=== PATIENT | female | born 1960 | race Caucasian/White ===

== ENCOUNTER → 2017-10-02 14:23 | Outpatient (CLI) | payer OTHER, SELFPAY ==
--- NOTE | 2017-10-02 14:34 | HPBI_ITS ---
MAMMOGRAPHY - BILATERAL SCREENING REASON FOR EXAM: Female, 57 years old. Routine annual screening examination. PERTINENT HISTORY: Mother with breast cancer. TECHNIQUE: Digital bilateral breast sandra (3D mammographic acquisition) in the CC and MLO projections. 2-D mediolateral oblique (MLO) and craniocaudad (CC) views of both breasts were obtained. CAD: Full Field Digital Mammography with Computer Added Detection was performed. COMPARISON: None. Baseline examination. FINDINGS: Breast Composition: The breasts are heterogeneously dense, which may obscure small masses. There are no dominant masses or suspicious calcifications. Bilateral benign appearing axillary lymph nodes. No other significant abnormalities are identified. There has been no significant change since the prior study. HPBI/SCREENING MAMM (CAD), BILAT IMPRESSION: Stable bilateral screening mammogram. Yearly follow-up mammogram recommended. (A) ASSESSMENT CATEGORY: BIRADS Category 2: Benign. A letter regarding these results will be sent to the patient by the facility within 30 days. Approximately 10% of breast cancers are not detected by mammography. A normal mammogram should not delay biopsy of a clinically suspicious abnormality. [id number] Electronically Signed: Getachew Wayne MD at 8:22 EDT Tel [phone], Service support ,
== END ==
DX: Z12.31 Encounter for screening mammogram for malignant neoplasm of breast (principal)
CPT/HCPCS: 77063; 77067

== ENCOUNTER 2017-10-25 23:21 | Inpatient (IN) | payer SELFPAY ==
[2017-10-25 23:22] VITALS: BP 112/74; PULSE 93; RESP 22; TEMP 36.4; O2SAT 100; BMI 30.8
[2017-10-25 23:27] VITALS: BP 112/74; PULSE 92
--- NOTE | 2017-10-25 23:46 | EKG12_ITS ---
Test Reason : CP Blood Pressure : / mmHG Vent. Rate : 088 BPM Atrial Rate : 088 BPM P-R Int : 124 ms QRS Dur : 082 ms QT Int : 398 ms P-R-T Axes : 063 019 038 degrees QTc Int : 481 ms Normal sinus rhythm Prolonged QT Abnormal ECG Confirmed by ROSANA ROSADO, FARNAZ ([id number]), multimedia editor PHYLLIS BEASLEY ([id number]) on 10/31/2017 9:01:45 AM Referred By: DR CLEVELAND Confirmed By:FARNAZ WAYNE MD
--- NOTE | 2017-10-25 23:46 | RAD_ITS ---
STUDY: X-RAY CHEST REASON FOR EXAM: Female, 57 years old. Chest pain and shortness of breath. Chest heaviness and heartburn. Symptoms radiate to her jaw. TECHNIQUE: Single AP portable view of the chest. COMPARISON: Chest x-ray 01/15/2017. FINDINGS: There is minimal fibrosis or atelectasis overlying the left lower lung freitas. There are no demonstrated acute pulmonary infiltrates. There is no demonstrated pleural abnormality. Normal size heart. Normal mediastinum and sumit. Normal visualized pulmonary arteries. Normal visualized aortic arch and descending thoracic aorta. Normal visualized thoracic spine. Normal visualized ribs, clavicles, and shoulders. There is no demonstrated abnormality of the visualized soft tissue structures of the upper abdomen. RAD/Chest 1 View (Portable) IMPRESSION: Minimal chronic changes in the left mid and lower lung freitas. No evidence for acute cardiopulmonary pathology. Electronically Signed: Louis Steel MD at 0:51 EDT , Service support ,
--- NOTE | 2017-10-25 23:53 | ED.DCSUM_ITS ---
- ER Visit Summary Date of Service: 10/25/17 Chief Complaint: Chest pain and shortness of breath History of Present Illness: The patient is a 57 F who presents with sudden onset of chest pain and shortness of breath while sleeping. Patient states that she and her celebrated his birthday this evening with steak and a couple glasses of wine. They went to bed and she woke up with shortness of breath and epigastric chest pain radiating up into the bilateral jaws. She also felt hot and flushed. She has been having 1 day of lower abdominal pain. She is on methotrexate for psoriatic arthritis and also has a hysterectomy with ovaries intact. Status post appendectomy. Patient currently is complaining of chest heaviness and shortness of breath. She denies fever, nausea, vomiting, urinary symptoms. Denies any history of anaphylaxis. Sensation of her mouth or throat swelling. Physical Examination: Vital signs: afebrile, hemodynamically stable, no hypoxia on room air General: well nourished, well developed, in no distress, appears unwell Skin: warm, dry, no pallor, facial flushing with erythematous patches on the neck anterior and posterior, upper chest above the nipple line, upper back, and upper arms, blanchable HEENT: normocephalic and atraumatic; PERRL, EOMI, moist mucous membranes conjunctivae mildly injected Cardiovascular: regular rate and rhythm without murmurs, no peripheral edema, 2 + pulses all distal extremities Respiratory: No increased work of breathing, lungs are clear to auscultation bilaterally, no rales, rhonchi or wheezing, patient taking occasional deep gasping breaths Abdominal: Abdomen is soft, tender in the right lower quadrant with normoactive bowel sounds, no guarding or rebound, no pulsatile masses MSK: Moves all extremities, no deformities, normal strength Neuro: Awake and alert, oriented ?4. No facial droop, sensation and motor function intact and symmetric Test Results: Abnormal Lab Results 10/25/17 10/25/17 10/25/17 23:28 23:28 23:28 WBC 12.0 H RBC 4.12 L Hgb 13.4 Hct 39.4 MCV 95.6 MCH 32.5 H MCHC 34.0 RDW 15.0 H RDW Differential 50.7 H Plt Count 369 MPV 9.8 Immature Gran % (Auto) 0.300 Neut % (Auto) 66.3 Lymph % (Auto) 21.6 Bo[place] % (Auto) 9.5 Eos % (Auto) 1.8 Baso % (Auto) 0.5 Absolute Neuts (auto) 8.0 H Absolute Lymphs (auto) 2.58 Total Counted Not Reportable PT 12.2 INR 0.9 APTT 32.2 Sodium 142 Potassium 3.0 L Chloride 105 Carbon Dioxide 23.0 Anion Gap 14 BUN 22 H Creatinine 1.05 H Estim Creat Clear Calc 50.08 Est GFR (MDRD) Af Amer 70 Est GFR (MDRD) Non-Af 58 L BUN/Creatinine Ratio 21.0 H Glucose 63 L Calcium 8.7 Troponin I < 0.02 TSH 2.32 Ethyl Alcohol 10/25/17 23:28 WBC RBC Hgb Hct MCV MCH MCHC RDW RDW Differential Plt Count MPV Immature Gran % (Auto) Neut % (Auto) Lymph % (Auto) [place] % (Auto) Eos % (Auto) Baso % (Auto) Absolute Neuts (auto) Absolute Lymphs (auto) Total Counted PT INR APTT Sodium Potassium Chloride Carbon Dioxide Anion Gap BUN Creatinine Estim Creat Clear Calc Est GFR (MDRD) Af Amer Est GFR (MDRD) Non-Af BUN/Creatinine Ratio Glucose Calcium Troponin I TSH Ethyl Alcohol 261.0 Emergency Department Course and Treatment: Patient is presenting with a constellation of symptoms with no obvious unifying diagnosis, including the chest pain and shortness of breath, the facial flushing, pain radiating to jaw, and then further history provided by security that the patient had a syncopal episode while coming into the waiting room. No trauma from this. Because of the patient's lower abdominal pain that started yesterday now with these other complaints, there is concern for possible aortic dissection. Also with the shortness of breath, chest pain and a syncopal episode, PE is on the differential. Anaphylaxis also on the differential given shortness of breath, chest pain and the rash, however seems less likely as there is no obvious allergic exposure. broad workup was performed, with an EKG showing no ischemic changes. Chest x-ray showed no pneumonia, pneumothorax, or other acute process. Labs showed leukocytosis of 12, mild hypokalemia of 3, and a glucose of 63. Patient was given half an amp of D50 for this. She also received Zofran and morphine for symptomatic control. 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 Troponin negative. TSH 2.32. Alcohol was checked and was consistent with a intoxication at 261. Patient had resolution of the body flushing after receiving some fluids. CTA of the chest abdomen and pelvis was performed, showing no dissection, no PE, no free air in the abdomen, but did show acute diverticulitis. Because patient is immunocompromised, this does make her a candidate for inpatient treatment. She is also having intractable abdominal pain, including the epigastric pain, which still is concerning for possible atypical chest pain versus gastritis from the alcohol use in a patient with peptic ulcer disease. Because of patient's complicated presentation and the acute diverticulitis with immunocompromise, she is a candidate for inpatient treatment with IV antibiotics. She was admitted for further treatment of acute diverticulitis and further workup of her chest pain, shortness of breath, and epigastric pain. Patient received 2 doses of IV morphine and a GI cocktail without resolution of her epigastric and chest pain. Treatment Plan: [] Disposition: [] Impression: acute diverticulitis, acute chest pain/epigastric pain, concern for atypical ACS This note was generated with [employer] dictation software. It may contain incorrect words, spelling, and punctuation that were not noted in review of the chart prior to signing ED Disposition - Plan for ED Patient: Chief Complaint: Chest Pain
[2017-10-25] MEDS: Morphine 4 MG/ML Syringe IV (23:56)
[2017-10-25] MEDS: 0.9% Normal Saline 1,000 ML 1000 ML IV (23:56)
[2017-10-25] MEDS: Ondansetron 4 MG/2 ML Vial IV (23:56)
[2017-10-26] VITALS (17 sets, daily range): BP systolic 120–186; BP diastolic 77–111; PULSE 69–91; RESP 12–18; TEMP 36.6–36.9; O2SAT 93–99; BMI 30.2
[2017-10-26 00:07] LABS: Absolute Lymphocyte Count 2.58 X10^3/ul (0.83-4.51); Basophil# 0.06 X10^3/uL; Basophil% 0.5 % (0-1); Eosinophil# 0.21 X10^3/uL; Eosinophils% 1.8 % (0-5); Hematocrit 39.4 % (37-47); Hemoglobin 13.4 g/dl (12.0-15.0); Lymphocyte # 2.58 X10^3/ul (4.0); Lymphocyte % 21.6 % (19-41); Mean Corpuscular Hgb 32.5 pg (27.0-32.0); Mean Corpuscular Volume 95.6 fL (81-99); Mean Platelet Vol. 9.8 fl (6.2-12.0); Monocyte# 1.14 X10^3/uL; Monocyte% 9.5 % (0-10); Neutrophil # 7.95 X10^3/uL (2.7-7.7); Neutrophil % 66.3 % (47-70); Platelet Count 369 K/mm3 (150-450); RBC Distribution Width SD 50.7 fl (35.1-43.9); Red Blood Count 4.12 M/mm3 (4.2-5.4)
[2017-10-26 00:09] LABS: POSITIVE COUNT NO; POSITIVE DIFFERENTIAL NO; POSITIVE MORPHOLOGY NO
[2017-10-26 00:13] LABS: Anion Gap 14 (5-15); BUN 22 mg/dL (7-18); Calcium,Total 8.7 mg/dL (8.5-10.1); Chloride 105 mmol/L (98-107); Creatinine, Serum 1.05 mg/dL (0.55-1.02); EST Glomerular Filtration Rate 58 mL/min (>60); Est Glom Filt Rate - Afr Amer 70 mL/min (>60); Estimated Creatinine Clearance 50.08 ml/min; Glucose 63 mg/dL (74-106); Sodium Level 142 mmol/L (136-145); Thyroid Stim Hormone (TSH) 2.32 uIU/mL (0.358-3.74)
[2017-10-26 00:31] LABS: International Normalized Ratio 0.9; Prothrombin Time (Protime)PT. 12.2 SECONDS (11.7-14.9)
[2017-10-26 00:32] LABS: Partial Thromboplast Time 32.2 Seconds (24.1-36.2)
[2017-10-26] MEDS: Dextrose 50%-Water 25 GM/50 ML DISP.SYRIN IV (01:05)
[2017-10-26] MEDS: Morphine 4 MG/ML Syringe IV (01:45)
--- NOTE | 2017-10-26 02:23 | PCM.HP.STD ---
Problem List (1) Hypokalemia Status: Acute (2) Acute diverticulitis Status: Acute (3) Gastritis Status: Acute (4) Alcohol intoxication Status: Acute (5) Psoriatic arthritis Status: Chronic (6) Essential hypertension Status: Chronic (7) Peptic ulcer disease Status: Chronic History of Present Illness Date of Admission: 10/26/17 Chief Complaint: Chest pain, shortness of breath, abdominal pain. The patient is a 57 year old F with past medical history as mentioned above presented to the emergency room because of chest pain, shortness of breath and abdominal pain. Earlier tonight, she woke up from sleep because she was short of breath, having chest pain described as chest tightness in the lower part of her chest, constant, 7 out of 10 in severity, goes down to the epigastric region and then became more diffuse to the whole abdomen, associated with nausea and without aggravating or relieving factors. She mentioned that her pain now is down to the epigastric region and lower abdomen only. Also, she mentioned that she had this lower abdominal pain of one day duration which is dull aching pain, more on the left side. She has no more upper chest pain or discomfort at this time. And her breathing improved. She denied palpitation, dizziness, lightheadedness, syncope, presyncope or diaphoresis. In the emergency room, her vital signs were stable. Her routine blood work is remarkable for mild leukocytosis, potassium of 3, BUN of 22 and creatinine of 1.05. Her blood glucose is 63. Troponin was negative. EKG revealed normal sinus rhythm without evidence of acute ischemic changes. TSH was normal. Blood alcohol level was highly elevated at 261. Chest x-ray showed no acute infiltrate, consolation or effusion. CTA abdomen and pelvis revealed acute diverticulitis of sigmoid colon and no evidence of hemodynamically significant stenosis, no aneurysm or dissection. CTA chest showed no evidence of PE or dissection. She is being admitted for acute sigmoid diverticulitis, epigastric pain likely due to gastritis because she had a history of peptic ulcer disease and she has been drinking, hypokalemia and atypical chest pain with very low suspicion of CAD. Past Medical History Past Medical History (Chronic Problems): Chronic Problems Psoriatic arthritis (Chronic) Essential hypertension (Chronic) Peptic ulcer disease (Chronic) Allergies prednisone Allergy (Verified 10/25/17 23:27) Hives Home Medications: Ambulatory Orders Medication Instructions Recorded Ramipril [Altace] 10 mg PO QHS 03/20/16 Triamterene 37.5MG/Hctz 25MG 1 cap PO QHS 03/20/16 [Dyazide (G)] Venlafaxine HCl [Effexor] 37.5 mg PO QHS 03/20/16 Pantoprazole Sodium [Protonix] 40 mg PO DAILY #60 tablet 03/23/16 Folic Acid 1 mg PO DAILY@0800 10/25/17 Methotrexate 12.5 mg PO Q7D 10/25/17 Surgical History: noncontributory Psychiatric History: 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 Denies: Heaviness, Light Headedness, Orthopnea, Paroxysmal Noc. Dyspnea, Syncope Respiratory: Reports: Shortness of Breath. Denies: Cough, Sputum production, Wheezing Gastrointestinal: Reports: Abdominal Pain, Diarrhea, Nausea. Denies: Constipation, Hematochezia, Melena, Vomiting Genitourinary: Denies: Dysuria, Frequency, Hematuria Musculoskeletal: Denies: Arm Pain, Back Pain, Foot Pain Skin: Denies: Dryness, Rash Neurological: Denies: Balance problems, Double vision, Change in Speech, Slurred speech, Confusion, Headaches, Incoordination Psychiatric: Reports: Depression. Denies: Anxiety Endocrine: Denies: Change in Body Habitus, Polydipsia VTE Information - Inpt Only VTE Present on Admission: No VTE Mechan Device Prophylaxis: None VTE Pharm Prophylaxis ordered?: No - Physical Exam General: Alert, Oriented x3, Cooperative, No apparent distress HEENT: Atraumatic, PERRLA, EOMI Oral: Moist Mucosa, No Gingival or Mucosal Lesions/ Ulcerations Neck: Supple, No JVD, Negative Carotid Bruits, Trachea Midline, Thyroid Normal Size and Texture Lungs: Clear to auscultation, Normal air movement, No rhonchi, No wheeze, No rales Cardiovascular: Regular rate, Regular Rhythm, Normal S1, Normal S2, No murmurs Abdomen: Bowel Sounds Present, Soft, Non-Distended, No Hepato-splenomegaly, Obese, Tender - Minimal epigastric tenderness, no guarding or rigidity. Extremities: No clubbing, No cyanosis, No edema Skin: No rashes, No breakdown Lymphatic: No Cervical, Supraclavicular, or Inguinal Adenopathy Neurological: Cranial nerves II-XII grossly intact, Motor Exam 5/5 strength throughout Psych/Mental Status: Normal Affect, Appropriate, Alert and oriented to time, place, person, mood and affect Vital Signs Temp Pulse Resp BP Pulse Ox 97.6 F L 89 12 136/90 H 97 10/25/17 23:22 10/26/17 01:10 10/26/17 01:10 10/26/17 01:10 10/26/17 01:10 Oxygen Delivery Method Room Air Weight: 174 lb 2.643 oz Body Mass Index (BMI) 30.8 Laboratory Tests Past 24 Hrs 10/25/17 10/25/17 10/25/17 23:28 23:28 23:28 WBC 12.0 H RBC 4.12 L Hgb 13.4 Hct 39.4 MCV 95.6 MCH 32.5 H MCHC 34.0 RDW 15.0 H RDW Differential 50.7 H Plt Count 369 MPV 9.8 Immature Gran % (Auto) 0.300 Neut % (Auto) 66.3 Lymph % (Auto) 21.6 [place] % (Auto) 9.5 Eos % (Auto) 1.8 Baso % (Auto) 0.5 Absolute Neuts (auto) 8.0 H Absolute Lymphs (auto) 2.58 Total Counted Not Reportable PT 12.2 INR 0.9 APTT 32.2 Sodium 142 Potassium 3.0 L Chloride 105 Carbon Dioxide 23.0 Anion Gap 14 BUN 22 H Creatinine 1.05 H Estim Creat Clear Calc 50.08 Est GFR (MDRD) Af Amer 70 Est GFR (MDRD) Non-Af 58 L BUN/Creatinine Ratio 21.0 H Glucose 63 L Calcium 8.7 Total Bilirubin Direct Bilirubin AST ALT Alkaline Phosphatase Troponin I < 0.02 Total Protein Albumin Lipase TSH 2.32 Ethyl Alcohol 10/25/17 10/25/17 23:28 23:28 WBC RBC Hgb Hct MCV MCH MCHC RDW RDW Differential Plt Count MPV Immature Gran % (Auto) Neut % (Auto) Lymph % (Auto) [place] % (Auto) Eos % (Auto) Baso % (Auto) Absolute Neuts (auto) Absolute Lymphs (auto) Total Counted PT INR APTT Sodium Potassium Chloride Carbon Dioxide Anion Gap BUN Creatinine Estim Creat Clear Calc Est GFR (MDRD) Af Amer Est GFR (MDRD) Non-Af BUN/Creatinine Ratio Glucose Calcium Total Bilirubin Pending Direct Bilirubin Pending AST Pending ALT Pending Alkaline Phosphatase Pending Troponin I Total Protein Pending Albumin Pending Lipase Pending TSH Ethyl Alcohol 261.0 Clinical Impression(s) from Imaging Studies Chest X-Ray 10/25/17 23:46 IMPRESSION: Minimal chronic changes in the left mid and lower lung freitas. No evidence for acute cardiopulmonary pathology. Electronically Signed: Louis Steel MD at 0:51 EDT , Service support , Abdomen/Pelvis CTA 10/26/17 23:47 IMPRESSION: Acute diverticulitis of the sigmoid colon. No associated abscess or free intraperitoneal air. Previous hysterectomy. No evidence for hemodynamically significant arterial stenosis. No evidence for aneurysm or dissection. Electronically Signed: Louis Steel MD at 1:46 EDT , Service support , Chest CTA 10/26/17 23:47 IMPRESSION: No demonstrated pulmonary embolism or arterial dissection. Mild atherosclerosis. No evidence for acute cardiopulmonary pathology. Electronically Signed: Louis Steel MD at 1:50 EDT , Service support , Assessment/Plan This is a 57 years old female patient presented to the emergency room because of upper chest pain/pressure with shortness of breath, pain when down to the epigastric region and finally to the lower abdomen and she was found to have acute sigmoid diverticulitis, hypokalemia, probable gastritis secondary to alcohol drinking as well as alcohol intoxication. #1 acute sigmoid diverticulitis: CTA abdomen and pelvis reviewed, revealed findings consistent with acute sigmoid diverticulitis. Vital signs are stable, afebrile. She has mild leukocytosis. Plan: Admit to [facility] floor, telemetry monitoring, keep on clear liquids, IV fluids, IV morphine as needed, IV antiemetics, start IV Flagyl and ciprofloxacin. #2 probable gastritis: Probably due to heavy drinking in context of history of peptic ulcer disease. Blood alcohol level is 261. Plan: IV fluids, IV antiemetics, Protonix IV twice daily. #3 alcohol intoxication: Blood alcohol level is 261. Patient is awake and alert, vital signs are stable. Plan: CIWA protocol, IV fluids with D5 normal saline with potassium chloride, IV folic acid, IV thiamine. #4 hypoglycemia: Blood sugar was 63 mg/dL. This is likely because of alcohol intoxication. Plan for IV fluids with D5 percent, Accu-Cheks as needed. #5 hypokalemia: Likely because of Dyazide. Plan to increase potassium with IV potassium chloride, check serum magnesium, repeat BMP tomorrow morning. #6 atypical chest pain: The patient is started in the upper chest with shortness of breath and then went down to the epigastric region and to the abdomen. EKG showed no acute ischemic changes. Troponin was negative. At this time, suspicion for CAD is low. Plan: Cardiac monitoring, serial cardiac enzymes, repeat EKG tomorrow morning. At this time, no indication for further cardiac workup unless cardiac enzymes start to go up or she developed new EKG changes. #7 hypertension: Blood pressure stable, continue Altace and Dyazide. #8 psoriatic arthritis: She is on methotrexate q. weekly. #9 history of peptic ulcer disease: IV Protonix twice daily, IV antiemetics as above. #10 DVT prophylaxis: Low risk patient, no prophylaxis indicated. This note was generated with [employer] dictation software. It may contain incorrect words, spelling, and punctuation that were not noted in checking the note before signing. Code Visit Inpatient E&M: 22441 Init Hosp L3
[2017-10-26 02:32] LABS: AST(SGOT) 20 U/L (15-37); Alanine Aminotransfer ALT/SGPT 31 U/L (13-56); Albumin, Serum 4.2 g/dL (3.2-5.0); Alkaline Phosphatase 95 U/L (45-117); Bilirubin, Direct 0.08 mg/dL (0.00-0.30); Globulin 3.9 g/dL (2.2-4.2); Lipase 585 U/L (73-393); Protein, Total 8.1 g/dL (6.4-8.2)
--- NOTE | 2017-10-26 02:32 | HP.PCM_ITS ---
Problem List (1) Hypokalemia Status: Acute (2) Acute diverticulitis Status: Acute (3) Gastritis Status: Acute (4) Alcohol intoxication Status: Acute (5) Psoriatic arthritis Status: Chronic (6) Essential hypertension Status: Chronic (7) Peptic ulcer disease Status: Chronic History of Present Illness Date of Admission: 10/26/17 Chief Complaint: Chest pain, shortness of breath, abdominal pain. The patient is a 57 year old F with past medical history as mentioned above presented to the emergency room because of chest pain, shortness of breath and abdominal pain. Earlier tonight, she woke up from sleep because she was short of breath, having chest pain described as chest tightness in the lower part of her chest, constant, 7 out of 10 in severity, goes down to the epigastric region and then became more diffuse to the whole abdomen, associated with nausea and without aggravating or relieving factors. She mentioned that her pain now is down to the epigastric region and lower abdomen only. Also, she mentioned that she had this lower abdominal pain of one day duration which is dull aching pain, more on the left side. She has no more upper chest pain or discomfort at this time. And her breathing improved. She denied palpitation, dizziness, lightheadedness, syncope, presyncope or diaphoresis. In the emergency room, her vital signs were stable. Her routine blood work is remarkable for mild leukocytosis, potassium of 3, BUN of 22 and creatinine of 1.05. Her blood glucose is 63. Troponin was negative. EKG revealed normal sinus rhythm without evidence of acute ischemic changes. TSH was normal. Blood alcohol level was highly elevated at 261. Chest x-ray showed no acute infiltrate, consolation or effusion. CTA abdomen and pelvis revealed acute diverticulitis of sigmoid colon and no evidence of hemodynamically significant stenosis, no aneurysm or dissection. CTA chest showed no evidence of PE or dissection. She is being admitted for acute sigmoid diverticulitis, epigastric pain likely due to gastritis because she had a history of peptic ulcer disease and she has been drinking, hypokalemia and atypical chest pain with very low suspicion of CAD. Past Medical History Past Medical History (Chronic Problems): Chronic Problems Psoriatic arthritis (Chronic) Essential hypertension (Chronic) Peptic ulcer disease (Chronic) Allergies prednisone Allergy (Verified 10/25/17 23:27) Hives Home Medications: Ambulatory Orders Medication Instructions Recorded Ramipril [Altace] 10 mg PO QHS 03/20/16 Triamterene 37.5MG/Hctz 25MG 1 cap PO QHS 03/20/16 [Dyazide (G)] Venlafaxine HCl [Effexor] 37.5 mg PO QHS 03/20/16 Pantoprazole Sodium [Protonix] 40 mg PO DAILY #60 tablet 03/23/16 Folic Acid 1 mg PO DAILY@0800 10/25/17 Methotrexate 12.5 mg PO Q7D 10/25/17 Surgical History: noncontributory Psychiatric History: No pertinent psych hx 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 Denies: Heaviness, Light Headedness, Orthopnea, Paroxysmal Noc. Dyspnea, Syncope Respiratory: Reports: Shortness of Breath. Denies: Cough, Sputum production, Wheezing Gastrointestinal: Reports: Abdominal Pain, Diarrhea, Nausea. Denies: Constipation, Hematochezia, Melena, Vomiting Genitourinary: Denies: Dysuria, Frequency, Hematuria Musculoskeletal: Denies: Arm Pain, Back Pain, Foot Pain Skin: Denies: Dryness, Rash Neurological: Denies: Balance problems, Double vision, Change in Speech, Slurred speech, Confusion, Headaches, Incoordination Psychiatric: Reports: Depression. Denies: Anxiety Endocrine: Denies: Change in Body Habitus, Polydipsia VTE Information - Inpt Only VTE Present on Admission: No VTE Mechan Device Prophylaxis: None VTE Pharm Prophylaxis ordered?: No - Physical Exam General: Alert, Oriented x3, Cooperative, No apparent distress HEENT: Atraumatic, PERRLA, EOMI Oral: Moist Mucosa, No Gingival or Mucosal Lesions/ Ulcerations Neck: Supple, No JVD, Negative Carotid Bruits, Trachea Midline, Thyroid Normal Size and Texture Lungs: Clear to auscultation, Normal air movement, No rhonchi, No wheeze, No rales Cardiovascular: Regular rate, Regular Rhythm, Normal S1, Normal S2, No murmurs Abdomen: Bowel Sounds Present, Soft, Non-Distended, No Hepato-splenomegaly, Obese, Tender - Minimal epigastric tenderness, no guarding or rigidity. Extremities: No clubbing, No cyanosis, No edema Skin: No rashes, No breakdown Lymphatic: No Cervical, Supraclavicular, or Inguinal Adenopathy Neurological: Cranial nerves II-XII grossly intact, Motor Exam 5/5 strength throughout Psych/Mental Status: Normal Affect, Appropriate, Alert and oriented to time, place, person, mood and affect Vital Signs Temp Pulse Resp BP Pulse Ox 97.6 F L 89 12 136/90 H 97 10/25/17 23:22 10/26/17 01:10 10/26/17 01:10 10/26/17 01:10 10/26/17 01:10 Oxygen Delivery Method Room Air Weight: 174 lb 2.643 oz Body Mass Index (BMI) 30.8 Laboratory Tests Past 24 Hrs 10/25/17 10/25/17 10/25/17 23:28 23:28 23:28 WBC 12.0 H RBC 4.12 L Hgb 13.4 Hct 39.4 MCV 95.6 MCH 32.5 H MCHC 34.0 RDW 15.0 H RDW Differential 50.7 H Plt Count 369 MPV 9.8 Immature Gran % (Auto) 0.300 Neut % (Auto) 66.3 Lymph % (Auto) 21.6 [place] % (Auto) 9.5 Eos % (Auto) 1.8 Baso % (Auto) 0.5 Absolute Neuts (auto) 8.0 H Absolute Lymphs (auto) 2.58 Total Counted Not Reportable PT 12.2 INR 0.9 APTT 32.2 Sodium 142 Potassium 3.0 L Chloride 105 Carbon Dioxide 23.0 Anion Gap 14 BUN 22 H Creatinine 1.05 H Estim Creat Clear Calc 50.08 Est GFR (MDRD) Af Amer 70 Est GFR (MDRD) Non-Af 58 L BUN/Creatinine Ratio 21.0 H Glucose 63 L Calcium 8.7 Total Bilirubin Direct Bilirubin AST ALT Alkaline Phosphatase Troponin I < 0.02 Total Protein Albumin Lipase TSH 2.32 Ethyl Alcohol 10/25/17 10/25/17 23:28 23:28 WBC RBC Hgb Hct MCV MCH MCHC RDW RDW Differential Plt Count MPV Immature Gran % (Auto) Neut % (Auto) Lymph % (Auto) [place] % (Auto) Eos % (Auto) Baso % (Auto) Absolute Neuts (auto) Absolute Lymphs (auto) Total Counted PT INR APTT Sodium Potassium Chloride Carbon Dioxide Anion Gap BUN Creatinine Estim Creat Clear Calc Est GFR (MDRD) Af Amer Est GFR (MDRD) Non-Af BUN/Creatinine Ratio Glucose Calcium Total Bilirubin Pending Direct Bilirubin Pending AST Pending ALT Pending Alkaline Phosphatase Pending Troponin I Total Protein Pending Albumin Pending Lipase Pending TSH Ethyl Alcohol 261.0 Clinical Impression(s) from Imaging Studies Chest X-Ray 10/25/17 23:46 IMPRESSION: Minimal chronic changes in the left mid and lower lung freitas. No evidence for acute cardiopulmonary pathology. Electronically Signed: Louis Steel MD at 0:51 EDT , Service support , Abdomen/Pelvis CTA 10/26/17 23:47 IMPRESSION: Acute diverticulitis of the sigmoid colon. No associated abscess or free intraperitoneal air. Previous hysterectomy. No evidence for hemodynamically significant arterial stenosis. No evidence for aneurysm or dissection. Electronically Signed: Louis Steel MD at 1:46 EDT , Service support , Chest CTA 10/26/17 23:47 IMPRESSION: No demonstrated pulmonary embolism or arterial dissection. Mild atherosclerosis. No evidence for acute cardiopulmonary pathology. Electronically Signed: Louis Steel MD at 1:50 EDT , Service support , Assessment/Plan This is a 57 years old female patient presented to the emergency room because of upper chest pain/pressure with shortness of breath, pain when down to the epigastric region and finally to the lower abdomen and she was found to have acute sigmoid diverticulitis, hypokalemia, probable gastritis secondary to alcohol drinking as well as alcohol intoxication. #1 acute sigmoid diverticulitis: CTA abdomen and pelvis reviewed, revealed findings consistent with acute sigmoid diverticulitis. Vital signs are stable, afebrile. She has mild leukocytosis. Plan: Admit to [facility] floor, telemetry monitoring, keep on clear liquids, IV fluids, IV morphine as needed, IV antiemetics, start IV Flagyl and ciprofloxacin. #2 probable gastritis: Probably due to heavy drinking in context of history of peptic ulcer disease. Blood alcohol level is 261. Plan: IV fluids, IV antiemetics, Protonix IV twice daily. #3 alcohol intoxication: Blood alcohol level is 261. Patient is awake and alert , vital signs are stable. Plan: CIWA protocol, IV fluids with D5 normal saline with potassium chloride, IV folic acid, IV thiamine. #4 hypoglycemia: Blood sugar was 63 mg/dL. This is likely because of alcohol intoxication. Plan for IV fluids with D5 percent, Accu-Cheks as needed. #5 hypokalemia: Likely because of Dyazide. Plan to increase potassium with IV potassium chloride, check serum magnesium, repeat BMP tomorrow morning. #6 atypical chest pain: The patient is started in the upper chest with shortness of breath and then went down to the epigastric region and to the abdomen. EKG showed no acute ischemic changes. Troponin was negative. At this time, suspicion for CAD is low. Plan: Cardiac monitoring, serial cardiac enzymes, repeat EKG tomorrow morning. At this time, no indication for further cardiac workup unless cardiac enzymes start to go up or she developed new EKG changes. #7 hypertension: Blood pressure stable, continue Altace and Dyazide. #8 psoriatic arthritis: She is on methotrexate q. weekly. #9 history of peptic ulcer disease: IV Protonix twice daily, IV antiemetics as above. #10 DVT prophylaxis: Low risk patient, no prophylaxis indicated. This note was generated with [employer]oop[employer] dictation software. It may contain incorrect words, spelling, and punctuation that were not noted in checking the note before signing. Code Visit Inpatient E&M: 29599 Init Hosp L3
[2017-10-26] MEDS: Morphine 2 MG/ML Syringe IV ×5 (03:58→21:56)
[2017-10-26 04:19] LABS: Absolute Lymphocyte Count 1.89 X10^3/ul (0.83-4.51); Absolute Neutrophil Count 4.2 X10^3/uL (2.0-7.7); Basophil# 0.03 X10^3/uL; Basophil% 0.4 % (0-1); Eosinophil# 0.12 X10^3/uL; Eosinophils% 1.8 % (0-5); Hematocrit 35.2 % (37-47); Hemoglobin 11.7 g/dl (12.0-15.0); Lymphocyte # 1.89 X10^3/ul (4.0); Lymphocyte % 27.7 % (19-41); Mean Corp Hgb Conc 33.2 g/gl (32-36); Mean Corpuscular Hgb 32.1 pg (27.0-32.0); Mean Corpuscular Volume 96.4 fL (81-99); Mean Platelet Vol. 9.6 fl (6.2-12.0); Monocyte# 0.57 X10^3/uL; Monocyte% 8.3 % (0-10); Neutrophil # 4.21 X10^3/uL (2.7-7.7); Neutrophil % 61.7 % (47-70); Platelet Count 289 K/mm3 (150-450); RBC Distribution Width CV 15.4 % (11.6-14.6); RBC Distribution Width SD 51.4 fl (35.1-43.9); Red Blood Count 3.65 M/mm3 (4.2-5.4); White Blood Count 6.8 K/mm3 (4.4-11.0)
[2017-10-26 04:21] LABS: POSITIVE COUNT NO; POSITIVE DIFFERENTIAL NO; POSITIVE MORPHOLOGY NO
[2017-10-26 04:26] LABS: Bedside Glucose 108 mg/dL (70-110)
[2017-10-26 04:42] LABS: Anion Gap 9 (5-15); BUN 17 mg/dL (7-18); BUN/Creat Ratio 21.9 RATIO (10-20); Calcium,Total 7.9 mg/dL (8.5-10.1); Chloride 107 mmol/L (98-107); Creatinine, Serum 0.78 mg/dL (0.55-1.02); EST Glomerular Filtration Rate 82 mL/min (>60); Est Glom Filt Rate - Afr Amer 99 mL/min (>60); Estimated Creatinine Clearance 67.41 ml/min; Glucose 106 mg/dL (74-106); Lipase 488 U/L (73-393); Potassium 3.5 mmol/L (3.5-5.1); Sodium Level 141 mmol/L (136-145)
--- NOTE | 2017-10-26 05:55 | EKG12_ITS ---
Test Reason : AM EKG Blood Pressure : / mmHG Vent. Rate : 074 BPM Atrial Rate : 074 BPM P-R Int : 120 ms QRS Dur : 078 ms QT Int : 422 ms P-R-T Axes : 045 016 043 degrees QTc Int : 468 ms Normal sinus rhythm Nonspecific T wave abnormality Abnormal ECG When compared with ECG of 15-JAN-2017 00:44, Nonspecific T wave abnormality, worse in Anterolateral leads Confirmed by ROSANA ROSADO, FARNAZ ([id number]), scientific editor PHYLLIS BEASLEY ([id number]) on 11/03/2017 12:53:27 PM Referred By: ZACK Confirmed By:FARNAZ WAYNE MD
[2017-10-26] MEDS: 0.9% NaCl Peripheral Flush Adult/Peds IV ×3 (08:50→17:33)
--- NOTE | 2017-10-26 11:13 | CASEMGMT ---
Social Work Assessment SW received a referral for pt due to pt being admitted into the hospital with alcohol intoxification. SW introduced self and role at [facility]. Pt states that she lives in a 2 story home with her . Pt states that she also has two kids. Pt states that she has been 34 years with her . Pt states that she feels supported at home. Pt states that she was previously independent with ADLs before coming into the hospital. 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 Pt states that her plan is to return home at discharge. Pt is self pay. SW provided resources regarding [facility] and [facility] as pt will have to do follow up appointments. Pt denied additional needs at this time. Substance Abuse Hx: Pt stats that she smokes ecigarettes and that she drinks wine now and again. SW completed Alcohol Screening Questionnaire (AUDIT) with patient Pt scored a 5 which is considered Risky. SW asked pt if she has ever considered receiving treatment and pt states no. Pt states that she doesn't feel like she has a problem with alcohol and states that she only drinks wine occasionally. Pt states that she is able to function normally and states that alcohol doesn't affect her everyday life. Pt states that she is able to go to work and able to stop when she wants to. Pt denied becoming angry or mean when drinking or excessively drinking. Pt denied drinking to the point where she loses control or becomes drunk. SW provided support to pt. Pt denied needing treatment resources. Mental Health Hx: Pt denied Plan: Return Home at Discharge Jalyn Jackson EDUCATION REPORTER, WORLD DESIGNER
--- NOTE | 2017-10-26 11:28 | CASEMGMT ---
CHART REVIEW: CHERRY Strata: 2 Adm dx: Acute Sigmoid Diverticulitis; ETOH Intoxication Insurance: Self Pay Status: IP [place]: Per physician report, the patient is 57 year old F with PMHX: psoriatic arthritis, HTN, PUD, presented to [facility] ED with c/o chest pain, SOB and abd pain. CT Abd/Pelvis revealed acute diverticulitis of sigmoid colon. Patient with elevated lipase suspected due to alcholic pancreatitis. Plan: IVF, CLD, IV pain and antiemetics, NPO, repeat lipase in the morning. Transition Planning/Care Coordination: SW referral for self-pay and ETOH intoxication. Patient does not have a PCP and will be given resources by SW. Patient is independent, works outside the home, drives, and is . Patient will need to follow-up and establish with PCP. SW will provide information re: substance abuse. Disposition Plan: Home with spouse TGAGE Snow, RN-BC, CCM
[2017-10-26] MEDS: Ciprofloxacin 400 MG/200 ML BAG 200 MG IV ×2 (11:38→23:54)
--- NOTE | 2017-10-26 11:44 | CASEMGMT ---
Social Work Note Pt states that she has been going to the [facility] since last year and her plan is to continue to go there at discharge. Pt denied additional needs at this time. Plan: Return home with follow up appointments at [facility] Jalyn Jackson BACTERIOLOGY PROFESSOR, DEEP FAT FRY COOK
--- NOTE | 2017-10-26 16:49 | PN_ITS ---
Subjective: Pt reports that both her midepigastric pain radiating to the back and LLQ pain have improved significantly today. So far no nausea or vomiting, no bowel activity today. Has not seen any blood in her stool at all. She last had a colonoscopy which did reveal diverticula about 5 years ago at the [facility]. She does admit to drinking yesterday prior to presentation. She tolerated clears and broth this AM and wants to try full liquids tonight. - Physical Exam General: Alert, Oriented x3, Cooperative HEENT: Atraumatic, PERRLA, EOMI, Normocephalic Neck: Supple, No JVD, Negative Carotid Bruits Lungs: Clear to auscultation, Normal air movement Cardiovascular: Regular rate, No murmurs Abdomen: Bowel Sounds Present, Soft, Tender - LLQ Extremities: No edema, Capillary Refill Less than 3 Seconds Skin: No rashes, No breakdown Musculoskeletal: No Tenderness to Palpation of Joints or Extremities Neurological: Cranial nerves II-XII grossly intact Psych/Mental Status: Normal Affect, Appropriate, Alert and oriented to time, place, person, mood and affect Vital Signs Temp Pulse Resp BP Pulse Ox 98.1 F 69 16 167/110 H 99 10/26/17 15:35 10/26/17 15:35 10/26/17 15:35 10/26/17 15:35 10/26/17 15:35 Oxygen Delivery Method Room Air Weight: 77.3 kg Body Mass Index (BMI) 30.2 Intake and Output for Last 24 Hours 10/24/17 10/25/17 10/26/17 23:59 23:59 23:59 Intake Total 2389 / 2389 Balance 2389 / 2389 Laboratory Tests Past 24 Hrs 10/26/17 10/26/17 10/26/17 03:52 03:52 03:52 WBC 6.8 RBC 3.65 L Hgb 11.7 L Hct 35.2 L MCV 96.4 MCH 32.1 H MCHC 33.2 RDW 15.4 H RDW Differential 51.4 H Plt Count 289 MPV 9.6 Immature Gran % (Auto) 0.100 Neut % (Auto) 61.7 Lymph % (Auto) 27.7 [place] % (Auto) 8.3 Eos % (Auto) 1.8 Baso % (Auto) 0.4 Absolute Neuts (auto) 4.2 Absolute Lymphs (auto) 1.89 Total Counted Not Reportable Sodium 141 Potassium 3.5 Chloride 107 Carbon Dioxide 25.0 Anion Gap 9 BUN 17 Creatinine 0.78 Estim Creat Clear Calc 67.41 Est GFR (MDRD) Af Amer 99 Est GFR (MDRD) Non-Af 82 BUN/Creatinine Ratio 21.9 H Glucose 106 Calcium 7.9 L Troponin I < 0.02 Lipase 488 H 10/26/17 10/26/17 07:35 13:50 WBC RBC Hgb Hct MCV MCH MCHC RDW RDW Differential Plt Count MPV Immature Gran % (Auto) Neut % (Auto) Lymph % (Auto) [place] % (Auto) Eos % (Auto) Baso % (Auto) Absolute Neuts (auto) Absolute Lymphs (auto) Total Counted Sodium Potassium Chloride Carbon Dioxide Anion Gap BUN Creatinine Estim Creat Clear Calc Est GFR (MDRD) Af Amer Est GFR (MDRD) Non-Af BUN/Creatinine Ratio Glucose Calcium Troponin I < 0.02 < 0.02 Lipase POC Glucose 10/26/17 04:01 POC Glucose 108 Medical Necessity - Tobacco Use Smoking Status: Current every day smoker Assessment/Plan 1. Acute sigmoid diverticulitis - continue cipro / flagyl and slowly advance diet. CT c/w diverticulitis. No blood in stool. Protonix q12. DC IV fluids. 2. Acute alcoholic pancreatitis - intoxicated at presentation, no prior episodes. Midepigastric pain radiating to the back c/w mild acute pancreatitis given her mildly elevated lipase. Advised discontinuing alcohol use given presentation and her use of methotrexate for Psoriatic arthritis. 3. Hx psoriatic arthritis - continue home meds. 4. HTN - home meds. Trending high. Adjust as needed. PRN hydralazine. 5. PUD - protonix. 6. Hypokalemia - resolved DVT prophylaxis: SCDs DC planning: Advance diet as tolerated, if no difficulties will probably be able to discharge home tomorrow This patient was seen by Jeffrey Lorenzo PA-C under the supervision of Doctor Pérez.
[2017-10-26] MEDS: Ramipril 10 MG Capsule PO (21:05)
[2017-10-26] MEDS: Venlafaxine XR 37.5 MG Capsule PO (21:05)
--- NOTE | 2017-10-26 23:47 | CT_ITS ---
STUDY: CTA OF THE ABDOMINAL AORTA AND ABDOMINAL AND PELVIC ARTERIES REASON FOR EXAM: Female, 57 years old. Midabdominal pain which radiates up into the chest. Nausea. Diarrhea earlier today. RADIATION DOSAGE (If Supplied By Facility): CTDIvol = ( 11.93 ) mGy, DLP = ( 893.40 ) mGycm TECHNIQUE: Axial CT angiography multi-detector data acquisition was obtained from the to the following intravenous administration of 75ML ml of Isovue 370 contrast. Post-processing of the angiographic images was performed, with multiplanar reformation.. Individualized dose optimization techniques were used for this CT. TECHNICAL QUALITY: Good COMPARISON: None. Descriptors of Narrowing: None (0%) Mild (< 50%) Moderate (50-70%) Severe (70-90%) Subtotal/Total Occlusion (90-100%) Non-Evaluable (technically non-diagnostic FINDINGS: Abdominal aorta: Mild atherosclerotic calcifications. No evidence for stenosis. No evidence for aneurysm or dissection. Celiac and superior mesenteric arteries: No demonstrated narrowing. Inferior mesenteric artery: No demonstrated narrowing. Right renal artery(arteries): No demonstrated narrowing. Left renal artery(arteries): No demonstrated narrowing. Right common iliac artery: No demonstrated narrowing. Right external iliac artery: No demonstrated narrowing. Right internal iliac artery: No demonstrated narrowing. Left common iliac artery: No demonstrated narrowing. Left external iliac artery: No demonstrated narrowing. Left internal iliac artery: No demonstrated narrowing. ABDOMINAL AND PELVIC FINDINGS: The visualized lung bases are unremarkable. The visualized portions of the heart are within normal limits. Normal liver. Normal gallbladder and extrahepatic biliary system. Normal spleen. Normal pancreas. Normal bilateral adrenal glands. Normal right kidney. Normal left kidney. Normal visualized stomach. Normal small intestine. There is diverticulosis, with thickening of the colon wall, and pericolonic inflammation changes consistent with acute diverticulitis. There is mural thickening in a segment of the mid sigmoid colon with adjacent fat infiltration, consistent with mild acute diverticulitis. There is no associated abscess or free intraperitoneal air. There is no associated ascites. There are surgical clips in the region of the appendix consistent with a prior appendectomy. There is no evidence for appendicitis. Normal abdominal aorta. Normal inferior vena cava. There are small periaortic retroperitoneal lymph nodes which are normal in size and morphology. Normal urinary bladder. The uterus is absent. Normal abdominal wall. There are multilevel degenerative changes of the visualized lumbar spine. CT/CT ANGIO ABD&PEL W/O&W/DYE IMPRESSION: Acute diverticulitis of the sigmoid colon. No associated abscess or free intraperitoneal air. Previous hysterectomy. No evidence for hemodynamically significant arterial stenosis. No evidence for aneurysm or dissection. Electronically Signed: Louis Steel MD at 1:46 EDT , Service support ,
--- NOTE | 2017-10-26 23:47 | CT_ITS ---
STUDY: CTA CHEST REASON FOR EXAM: Female, 57 years old. Abdominal pain which radiates of the chest. Chest heaviness. Pain radiates to the jaw. Shortness of breath, nausea,. Diarrhea earlier today. RADIATION DOSAGE (If Supplied By Facility): CTDIvol = ( 11.93 ) mGy, DLP = ( 893.40 ) mGycm TECHNIQUE: The examination was performed with the intravenous administration of 75ML ml of Isovue 370 contrast material. Post-processing of the angiographic images was performed, with multiplanar reformation.. Individualized dose optimization techniques were used for this CT. COMPARISON: Chest x-ray 10/25/2017. FINDINGS: Normal enhancement of the main pulmonary artery and right and left pulmonary arteries. Normal enhancement of the bilateral peripheral pulmonary arteries. There is no demonstrated pulmonary embolism. There is mild atherosclerotic calcification of the thoracic aorta and visualized great vessels. There is no demonstrated aortic dissection. Sensitivity for subtle dissection of the aortic root is limited by motion artifacts in this non-cardiac gated study. Normal heart and pericardium. There are coronary artery calcifications. There are visualized mediastinal lymph nodes, which are within normal size limits, and with normal morphology. Normal hilar regions. Normal visualized trachea and bronchi. There is minimal atelectasis in the posterior lungs and lung bases. Otherwise the lungs are well expanded. Normal pulmonary parenchyma. Normal pleura. Normal chest wall structures. There are degenerative changes of thoracic spine. Normal visualized upper abdomen. CT/CTA Chest W/WO Contrast IMPRESSION: No demonstrated pulmonary embolism or arterial dissection. Mild atherosclerosis. No evidence for acute cardiopulmonary pathology. Electronically Signed: Louis Steel MD at 1:50 EDT , Service support ,
[2017-10-27] VITALS (12 sets, daily range): BP systolic 149–215; BP diastolic 87–108; PULSE 60–86; RESP 18; TEMP 36.7–36.9; O2SAT 93–99
[2017-10-27] MEDS: Morphine 2 MG/ML Syringe IV ×2 (02:56→09:31)
[2017-10-27 07:19] LABS: Absolute Lymphocyte Count 1.54 X10^3/ul (0.83-4.51); Absolute Neutrophil Count 3.2 X10^3/uL (2.0-7.7); Basophil# 0.03 X10^3/uL; Basophil% 0.5 % (0-1); Eosinophil# 0.28 X10^3/uL; Eosinophils% 4.8 % (0-5); Hematocrit 38.2 % (37-47); Hemoglobin 12.5 g/dl (12.0-15.0); Lymphocyte # 1.54 X10^3/ul (4.0); Lymphocyte % 26.5 % (19-41); Mean Corp Hgb Conc 32.7 g/gl (32-36); Mean Corpuscular Hgb 32.3 pg (27.0-32.0); Mean Corpuscular Volume 98.7 fL (81-99); Mean Platelet Vol. 9.6 fl (6.2-12.0); Monocyte# 0.73 X10^3/uL; Monocyte% 12.6 % (0-10); Neutrophil # 3.22 X10^3/uL (2.7-7.7); Neutrophil % 55.4 % (47-70); Platelet Count 280 K/mm3 (150-450); RBC Distribution Width CV 15.3 % (11.6-14.6); RBC Distribution Width SD 53.7 fl (35.1-43.9); Red Blood Count 3.87 M/mm3 (4.2-5.4); White Blood Count 5.8 K/mm3 (4.4-11.0)
[2017-10-27 07:20] LABS: POSITIVE COUNT NO; POSITIVE DIFFERENTIAL NO; POSITIVE MORPHOLOGY NO
[2017-10-27 07:44] LABS: Anion Gap 7 (5-15); BUN 8 mg/dL (7-18); BUN/Creat Ratio 9.5 RATIO (10-20); Calcium,Total 8.6 mg/dL (8.5-10.1); Chloride 110 mmol/L (98-107); Creatinine, Serum 0.84 mg/dL (0.55-1.02); EST Glomerular Filtration Rate 75 mL/min (>60); Est Glom Filt Rate - Afr Amer 91 mL/min (>60); Glucose 93 mg/dL (74-106); Lipase 176 U/L (73-393); Magnesium 2.3 mg/dL (1.6-2.6); Potassium 4.2 mmol/L (3.5-5.1); Sodium Level 144 mmol/L (136-145)
[2017-10-27] MEDS: Ciprofloxacin 400 MG/200 ML BAG 200 MG IV ×2 (09:31→22:47)
[2017-10-27 11:30] LABS: Bacteria 0 SEEN /hpf (None Seen); Mucous, Urine 0 SEEN /hpf (<or=2+); Red Blood Cells-Urine 0 SEEN /hpf (0-5); White Blood Cells 0 SEEN /hpf (0-5)
--- NOTE | 2017-10-27 11:34 | CASEMGMT ---
Social Work Note VERNON met with pt again to discuss financial resources. Per pt, she and her both work and have applied for Medicaid before but got denied. SW asked pt if she would be interested in prescription assistance and per pt, she is already on prescription assistance. Pt states that she is able to afford rent, food, and bills at this time. Per conversation with patient yesterday she already goes to the [facility] to receive healthcare services. SW asked pt if she would be interested in getting information about people to people and pt was receptive to this. SW provided pt with people to people pamphlet. Pt denied additional needs at this time. Plan: Return home at discharge Jalyn Jackson MSW, SLICING MACHINE TENDER
[2017-10-27 11:38] LABS: Color, Urine Straw (Yellow); Glucose, Dipstick Normal (Normal); Ketone-Dipstick Negative (Negative); Leukocyte Esterase-Dipstick Negative /ul (Negative); Nitrite-Dipstick Negative (Negative); Occult Blood-Urine Negative /ul (Negative); Protein-Dipstick Negative (Negative); Specific Gravity, Urine 1.005 (1.002-1.030); Urine Bilirubin Dipstick Negative (Negative); Urine Clarity Clear (Clear); Urine Urobilinogen Normal (Normal); Urine pH 6.5 (5.0 - 8.0)
[2017-10-27 11:45] LABS: Squamous Epithelial Cells - UA 0-5 SEEN /hpf (5-10)
--- NOTE | 2017-10-27 12:56 | PCM.PROGNOTE ---
Subjective: Pt has had more pain this AM in the LLQ region. She has been tolerating full liquids. No nausea or vomiting. No bowel movement since admission. No fever or chills. No midepigastric pain and no heartburn. - Physical Exam General: Alert, Oriented x3, Cooperative HEENT: Atraumatic, PERRLA, EOMI, Normocephalic Neck: Supple, No JVD, Negative Carotid Bruits Lungs: Clear to auscultation, Normal air movement Cardiovascular: Regular rate, No murmurs Abdomen: Bowel Sounds Present, Soft, Tender - LLQ Extremities: No edema, Capillary Refill Less than 3 Seconds Skin: No rashes, No breakdown Musculoskeletal: No Tenderness to Palpation of Joints or Extremities Neurological: Cranial nerves II-XII grossly intact Psych/Mental Status: Normal Affect, Appropriate, Alert and oriented to time, place, person, mood and affect Vital Signs Temp Pulse Resp BP Pulse Ox 98.1 F 86 18 161/87 H 99 10/27/17 09:00 10/27/17 09:00 10/27/17 09:00 10/27/17 09:00 10/27/17 09:00 Oxygen Delivery Method Room Air Weight: 77.3 kg Body Mass Index (BMI) 30.2 Intake and Output for Last 24 Hours 10/25/17 10/26/17 10/27/17 23:59 23:59 23:59 Intake Total 4073 / 4073 408 / 408 Balance 4073 / 4073 408 / 408 Laboratory Tests Past 24 Hrs 10/26/17 10/27/17 10/27/17 13:50 07:03 07:03 WBC 5.8 RBC 3.87 L Hgb 12.5 Hct 38.2 MCV 98.7 MCH 32.3 H MCHC 32.7 RDW 15.3 H RDW Differential 53.7 H Plt Count 280 MPV 9.6 Immature Gran % (Auto) 0.200 Neut % (Auto) 55.4 Lymph % (Auto) 26.5 [place] % (Auto) 12.6 H Eos % (Auto) 4.8 Baso % (Auto) 0.5 Absolute Neuts (auto) 3.2 Absolute Lymphs (auto) 1.54 Total Counted Not Reportable Sodium 144 Potassium 4.2 Chloride 110 H Carbon Dioxide 27.0 Anion Gap 7 BUN 8 Creatinine 0.84 Estim Creat Clear Calc 62.60 Est GFR (MDRD) Af Amer 91 Est GFR (MDRD) Non-Af 75 BUN/Creatinine Ratio 9.5 L Glucose 93 Calcium 8.6 Phosphorus 3.0 Magnesium 2.3 Troponin I < 0.02 Lipase 176 Urine Color Urine Clarity Urine pH Ur Specific [place] Urine Protein Urine Glucose (UA) Urine Ketones Urine Occult Blood Urine Nitrite Urine Bilirubin Urine Urobilinogen Ur Leukocyte Esterase Urine RBC Urine WBC Ur Squamous Epith Cells Urine Bacteria Urine Mucus 10/27/17 11:10 WBC RBC Hgb Hct MCV MCH MCHC RDW RDW Differential Plt Count MPV Immature Gran % (Auto) Neut % (Auto) Lymph % (Auto) [place] % (Auto) Eos % (Auto) Baso % (Auto) Absolute Neuts (auto) Absolute Lymphs (auto) Total Counted Sodium Potassium Chloride Carbon Dioxide Anion Gap BUN Creatinine Estim Creat Clear Calc Est GFR (MDRD) Af Amer Est GFR (MDRD) Non-Af BUN/Creatinine Ratio Glucose Calcium Phosphorus Magnesium Troponin I Lipase Urine Color Straw Urine Clarity Clear Urine pH 6.5 Ur Specific [place] 1.005 Urine Protein Negative Urine Glucose (UA) Normal Urine Ketones Negative Urine Occult Blood Negative Urine Nitrite Negative Urine Bilirubin Negative Urine Urobilinogen Normal Ur Leukocyte Esterase Negative Urine RBC 0 SEEN Urine WBC 0 SEEN Ur Squamous Epith Cells 0-5 SEEN Urine Bacteria 0 SEEN Urine Mucus 0 SEEN Medical Necessity - Tobacco Use Smoking Status: Current every day smoker Assessment/Plan 1. Acute sigmoid diverticulitis - continue cipro / flagyl. Localized LLQ pain worse this AM, so will maintain current therapy as ordered. No fever or leukocytosis. CT c/w sigmoid. diverticulitis. No blood in stool. Protonix q12. DC IV fluids. 2. Acute pancreatitis - resolved. No further midepigastric/back pain. Lipase normal. HCTZ d/c'd as it may have been a precipitating factor. 3. Hx psoriatic arthritis - continue home meds. 4. HTN - home meds. Trending high. Pain is significant. PRN hydralazine. Ramipril increased to BID. 5. PUD - protonix. DVT prophylaxis: SCDs DC planning: Continue current treatment and monitor for worsening of LLQ pain. This patient was seen by Jeffrey Lorenzo PA-C under the supervision of Doctor Elisa.
[2017-10-27] MEDS: HYDROcodone Bitartrate/Apap 5/325 Tablet PO ×3 (13:39→21:22)
[2017-10-27] MEDS: Ramipril 10 MG Capsule PO ×2 (16:05→21:02)
[2017-10-27] MEDS: Venlafaxine XR 37.5 MG Capsule PO (21:02)
[2017-10-27] MEDS: hydrALAZINE 20 MG/ML Vial IV (22:47)
[2017-10-27] MEDS: Ondansetron 4 MG/2 ML Vial IV (23:40)
[2017-10-28] VITALS (9 sets, daily range): BP systolic 126–155; BP diastolic 72–110; PULSE 64–91; RESP 18–20; TEMP 36.6–37.1; O2SAT 97–98
[2017-10-28] MEDS: HYDROcodone Bitartrate/Apap 5/325 Tablet PO ×4 (02:04→17:09)
[2017-10-28 08:16] LABS: Absolute Lymphocyte Count 1.24 X10^3/ul (0.83-4.51); Absolute Neutrophil Count 2.6 X10^3/uL (2.0-7.7); Basophil# 0.06 X10^3/uL; Basophil% 1.2 % (0-1); Eosinophil# 0.36 X10^3/uL; Hematocrit 38.3 % (37-47); Hemoglobin 12.6 g/dl (12.0-15.0); Lymphocyte # 1.24 X10^3/ul (4.0); Lymphocyte % 24.2 % (19-41); Mean Corp Hgb Conc 32.9 g/gl (32-36); Mean Corpuscular Hgb 32.4 pg (27.0-32.0); Mean Corpuscular Volume 98.5 fL (81-99); Mean Platelet Vol. 9.6 fl (6.2-12.0); Monocyte# 0.82 X10^3/uL; Neutrophil # 2.64 X10^3/uL (2.7-7.7); Neutrophil % 51.6 % (47-70); POSITIVE COUNT NO; POSITIVE DIFFERENTIAL NO; POSITIVE MORPHOLOGY NO; Platelet Count 290 K/mm3 (150-450); RBC Distribution Width CV 15.1 % (11.6-14.6); RBC Distribution Width SD 52.5 fl (35.1-43.9); Red Blood Count 3.89 M/mm3 (4.2-5.4); White Blood Count 5.1 K/mm3 (4.4-11.0)
[2017-10-28] MEDS: Ramipril 10 MG Capsule PO (09:32)
[2017-10-28] MEDS: 0.9% NaCl Peripheral Flush Adult/Peds IV (10:18)
[2017-10-28] MEDS: Ciprofloxacin 400 MG/200 ML BAG 200 MG IV (11:25)
--- NOTE | 2017-10-28 11:39 | PCM.DC ---
You will use the following diet at home:: Cardiac, Other - low residual, low gastric stimulus. Advance your diet slowly back to normal over the next several days. Avoid greasy and fatty foods. Your food should be the consistency of: Mechanical soft (ground) - soft to start, advance to normal over the next several days as tolerated Your liquids should be the consistency of: Regular/Thin Discharge Activity: Return to Normal Activity Allergies/Adverse Reactions: Allergies prednisone Allergy (Verified 10/25/17 23:27) Hives Medications to take at Discharge Venlafaxine HCl [Effexor] 37.5 mg PO QHS 03/20/16 Pantoprazole Sodium [Protonix] 40 mg PO DAILY #60 tablet 03/23/16 Folic Acid 1 mg PO DAILY@0800 10/25/17 Methotrexate 12.5 mg PO ULRICH 10/25/17 Amlodipine [Norvasc] 5 mg PO DAILY #30 tab 10/28/17 Ciprofloxacin [Cipro] 500 mg PO BID #9 tab 10/28/17 Hydrocodone Bitart/Apap 5-325 [[place] 5/325] 1 tab PO Q6H PRN PRN 2 Days #8 tab 10/28/17 Metronidazole [Flagyl] 500 mg PO TID #14 tab 10/28/17 Ondansetron HCl [Zofran] 4 mg PO Q8H PRN PRN #6 tab 10/28/17 Ramipril [Altace] 10 mg PO BID #0 capsule 10/28/17 The following prescriptions were given: Amlodipine [Norvasc] 5 mg PO DAILY #30 tab Ciprofloxacin [Cipro] 500 mg PO BID #9 tab Hydrocodone Bitart/Apap 5-325 [[place] 5/325] 1 tab PO Q6H PRN PRN 2 Days #8 tab PRN Reason: Severe Pain (6-10/10) Metronidazole [Flagyl] 500 mg PO TID #14 tab Ondansetron HCl [Zofran] 4 mg PO Q8H PRN PRN #6 tab PRN Reason: Nausea Primary Care Physician: Care Physician,No Primary [Primary Care Provider] - Please follow up with your Primary Care Physician in: 1-2 weeks Proposed Discharge Date: 10/28/17
[2017-10-28] MEDS: amLODIPine 5 MG Tablet PO (11:51)
--- NOTE | 2017-10-28 14:13 | PCM.DC.SUM ---
Discharge Date and Diagnosis Date of Admission: 10/26/17 Date of Discharge: 10/28/17 - Primary Discharge Diagnosis Acute sigmoid diverticulitis Mild acute pancreatitis HTN Alcohol intoxication Psoriatic arthritis PUD - Secondary Discharge Diagnosis Chronic Problems Psoriatic arthritis (Chronic) Essential hypertension (Chronic) Peptic ulcer disease (Chronic) Hospital Course and Treatment Imaging Results: RAD/Chest 1 View (Portable) IMPRESSION: Minimal chronic changes in the left mid and lower lung freitas. No evidence for acute cardiopulmonary pathology. CT/CT ANGIO ABD&PEL W/O&W/DYE IMPRESSION: Acute diverticulitis of the sigmoid colon. No associated abscess or free intraperitoneal air. Previous hysterectomy. No evidence for hemodynamically significant arterial stenosis. No evidence for aneurysm or dissection. CT/CTA Chest W/WO Contrast IMPRESSION: No demonstrated pulmonary embolism or arterial dissection. Mild atherosclerosis. No evidence for acute cardiopulmonary pathology. Operations: None Procedures: None Summary of Care Provided: Physical exam on day of discharge: General: Resting comfortably NAD Psych: A/Ox3 normal affect HEENT: PEARRLA AT NC Neck: Supple NT CV: RRR no m/t/r/g/h Resp: CTA Abd: [id number] left lower quadrant tenderness to deep palpation. No guarding or rigidity. Ext: DP2+= no edema Skin: W/D normal turgor Lymph/Heme: No active bleeding or adenopathy Neuro: CN2-12 intact Hospital course: The patient is a 57 year old F with a hx of HTN, PUD, diverticulosis, who presented to the ER with acute abdominal pain in the LLQ and the midepigastric region radiating to the back, along with some chest pain and SOB. She had an elevated white count, a CT of the abdomen c/w acute sigmoid diverticulitis (she did have a colonoscopy about 5 years ago with diverticulosis though she never had acute diverticulitis or pancreatitis in the past), a mildly elevated Lipase, a mildly elevated BUN and creatinine, and was intoxicated in the ED with a blood alcohol level of 261 mg/dL. CTA of the chest was negative and EKG and troponin x4 were negative. She was admitted for acute diverticulitis and mild pancreatitis. She was treated with clear liquid diet, IV protonix, and cipro and flagyl, and supportive measures. She gradually improved over and was able to have her diet advanced. Her diuretics were discontinued, without which her blood pressure did become significantly elevated. She was started on norvasc. She continued to improve and was advanced up to a soft mechanical diet. She remained clinically stable and was discharged home to complete a total of 7 days of antibiotics (cipro / flagyl). She should follow up with her PCP in 1-2 weeks. This patient was seen by Jeffrey Lorenzo PA-C under the supervision of Doctor Elisa. Discharge Diet: - - advance slowly to normal Discharge Activity: Return to Normal Activity Home Medications: Medications to take at Discharge Venlafaxine HCl [Effexor] 37.5 mg PO QHS 03/20/16 Pantoprazole Sodium [Protonix] 40 mg PO DAILY #60 tablet 03/23/16 Folic Acid 1 mg PO DAILY@0800 10/25/17 Methotrexate 12.5 mg PO ULRICH 10/25/17 Amlodipine [Norvasc] 5 mg PO DAILY #30 tab 10/28/17 Ciprofloxacin [Cipro] 500 mg PO BID #9 tab 10/28/17 Hydrocodone Bitart/Apap 5-325 [[place] 5/325] 1 tab PO Q6H PRN PRN 2 Days #8 tab 10/28/17 Metronidazole [Flagyl] 500 mg PO TID #14 tab 10/28/17 Ondansetron HCl [Zofran] 4 mg PO Q8H PRN PRN #6 tab 10/28/17 Ramipril [Altace] 10 mg PO BID #0 capsule 10/28/17 Following Prescrptions Were Given to Patient: Amlodipine [Norvasc] 5 mg PO DAILY #30 tab Ciprofloxacin [Cipro] 500 mg PO BID #9 tab Hydrocodone Bitart/Apap 5-325 [[place] 5/325] 1 tab PO Q6H PRN PRN 2 Days #8 tab PRN Reason: Severe Pain (6-10/10) Metronidazole [Flagyl] 500 mg PO TID #14 tab Ondansetron HCl [Zofran] 4 mg PO Q8H PRN PRN #6 tab PRN Reason: Nausea Primary Care Physician: Care Physician,No Primary [Primary Care Provider] - Please follow up with your Primary Care Physician in: 1-2 weeks Disposition: Home Minutes spent on discharge:: 35 Patient Condition:: Stable Medical Necessity - Tobacco Use Smoking Status: Current every day smoker Meaningful Use Info Meaningful Use Diagnoses (Choose all that apply): None applicable
--- NOTE | 2017-10-28 14:20 | DS.PCM_ITS ---
Discharge Date and Diagnosis Date of Admission: 10/26/17 Date of Discharge: 10/28/17 - Primary Discharge Diagnosis Acute sigmoid diverticulitis Mild acute pancreatitis HTN Alcohol intoxication Psoriatic arthritis PUD - Secondary Discharge Diagnosis Chronic Problems Psoriatic arthritis (Chronic) Essential hypertension (Chronic) Peptic ulcer disease (Chronic) Hospital Course and Treatment Imaging Results: RAD/Chest 1 View (Portable) IMPRESSION: Minimal chronic changes in the left mid and lower lung freitas. No evidence for acute cardiopulmonary pathology. CT/CT ANGIO ABD&PEL W/O&W/DYE IMPRESSION: Acute diverticulitis of the sigmoid colon. No associated abscess or free intraperitoneal air. Previous hysterectomy. No evidence for hemodynamically significant arterial stenosis. No evidence for aneurysm or dissection. CT/CTA Chest W/WO Contrast IMPRESSION: No demonstrated pulmonary embolism or arterial dissection. Mild atherosclerosis. No evidence for acute cardiopulmonary pathology. Operations: None Procedures: None Summary of Care Provided: Physical exam on day of discharge: General: Resting comfortably NAD Psych: A/Ox3 normal affect HEENT: [place]ARRLA AT NC Neck: Supple NT CV: RRR no m/t/r/g/h Resp: CTA Abd: [id number] left lower quadrant tenderness to deep palpation. No guarding or rigidity. Ext: DP2+= no edema Skin: W/D normal turgor Lymph/Heme: No active bleeding or adenopathy Neuro: CN2-12 intact Hospital course: The patient is a 57 year old F with a hx of HTN, PUD, diverticulosis, who presented to the ER with acute abdominal pain in the LLQ and the midepigastric region radiating to the back, along with some chest pain and SOB. She had an elevated white count, a CT of the abdomen c/w acute sigmoid diverticulitis (she did have a colonoscopy about 5 years ago with diverticulosis though she never had acute diverticulitis or pancreatitis in the past), a mildly elevated Lipase , a mildly elevated BUN and creatinine, and was intoxicated in the ED with a blood alcohol level of 261 mg/dL. CTA of the chest was negative and EKG and troponin x4 were negative. She was admitted for acute diverticulitis and mild pancreatitis. She was treated with clear liquid diet, IV protonix, and cipro and flagyl, and supportive measures. She gradually improved over and was able to have her diet advanced. Her diuretics were discontinued, without which her blood pressure did become significantly elevated. She was started on norvasc. She continued to improve and was advanced up to a soft mechanical diet. She remained clinically stable and was discharged home to complete a total of 7 days of antibiotics (cipro / flagyl). She should follow up with her PCP in 1-2 weeks. This patient was seen by Jeffrey Lorenzo PA-C under the supervision of Doctor Elisa. Discharge Diet: - - advance slowly to normal Discharge Activity: Return to Normal Activity Home Medications: Medications to take at Discharge Venlafaxine HCl [Effexor] 37.5 mg PO QHS 03/20/16 Pantoprazole Sodium [Protonix] 40 mg PO DAILY #60 tablet 03/23/16 Folic Acid 1 mg PO DAILY@0800 10/25/17 Methotrexate 12.5 mg PO ULRICH 10/25/17 Amlodipine [Norvasc] 5 mg PO DAILY #30 tab 10/28/17 Ciprofloxacin [Cipro] 500 mg PO BID #9 tab 10/28/17 Hydrocodone Bitart/Apap 5-325 [[place] 5/325] 1 tab PO Q6H PRN PRN 2 Days #8 tab 10/28/17 Metronidazole [Flagyl] 500 mg PO TID #14 tab 10/28/17 Ondansetron HCl [Zofran] 4 mg PO Q8H PRN PRN #6 tab 10/28/17 Ramipril [Altace] 10 mg PO BID #0 capsule 10/28/17 Following Prescrptions Were Given to Patient: Amlodipine [Norvasc] 5 mg PO DAILY #30 tab Ciprofloxacin [Cipro] 500 mg PO BID #9 tab Hydrocodone Bitart/Apap 5-325 [[place] 5/325] 1 tab PO Q6H PRN PRN 2 Days #8 tab PRN Reason: Severe Pain (6-10/10) Metronidazole [Flagyl] 500 mg PO TID #14 tab Ondansetron HCl [Zofran] 4 mg PO Q8H PRN PRN #6 tab PRN Reason: Nausea Primary Care Physician: Care Physician,No Primary [Primary Care Provider] - Please follow up with your Primary Care Physician in: 1-2 weeks Disposition: Home Minutes spent on discharge:: 35 Patient Condition:: Stable Medical Necessity - Tobacco Use Smoking Status: Current every day smoker Meaningful Use Info Meaningful Use Diagnoses (Choose all that apply): None applicable
== END 2017-10-28 18:11 | disposition home or self-care (01) | DRG 391 ==
LOC: ED 23:52 → MS3 10-26 02:14
PROVIDERS: Physician Assistant; Admitting Provider Hospitalist; Emergency Provider Emergency Medicine; Visit Provider Internal Medicine
DX: K57.32 Diverticulitis of large intestine without perforation or abscess without bleeding (principal); K85.20 Alcohol induced acute pancreatitis without necrosis or infection; K29.20 Alcoholic gastritis without bleeding; L40.50 Arthropathic psoriasis, unspecified; I10 Essential (primary) hypertension; F17.200 Nicotine dependence, unspecified, uncomplicated; Y90.8 Blood alcohol level of 240 mg/100 ml or more; Z87.11 Personal history of peptic ulcer disease; E87.6 Hypokalemia; T50.2X5A Adverse effect of carbonic-anhydrase inhibitors, benzothiadiazides and other diuretics, initial encounter; F10.129 Alcohol abuse with intoxication, unspecified; R07.89 Other chest pain; E16.2 Hypoglycemia, unspecified
CPT/HCPCS: 36415; 71045; 71275; 74174; 80048; 80076; 80320; 81001; 82962; 83690; 83735; 84100; 84443; 84484; 85025; 85610; 85730; 87086; 93005; 99283; 99406; J7030; J7040; Q9967; A4216; G0480; J0744; J2405; J3490

== ENCOUNTER 2018-01-03 14:45 | Emergency (ER) | payer SELFPAY ==
[2018-01-03 14:46] VITALS: BP 198/133; PULSE 88; RESP 16; TEMP 36.7; O2SAT 99; BMI 28.5
--- NOTE | 2018-01-03 15:41 | CT_ITS ---
STUDY: CT ABDOMEN AND PELVIS WITH CONTRAST REASON FOR EXAM: Female, 57 years old. Abdominal pain RADIATION DOSAGE (If Supplied By Facility): CTDIvol = ( 12.15 ) mGy, DLP = ( 592.91 ) mGycm TECHNIQUE: Transaxial images were obtained from the dome of the diaphragm to the symphysis pubis without oral contrast. 100mL ml of Isovue 300 contrast was administered. Sagittal and coronal images were reconstructed. Individualized dose optimization techniques were used for this CT. COMPARISON: October 26, 2017. FINDINGS: The visualized lung bases are unremarkable. The visualized portions of the heart are within normal limits. Normal liver. Normal gallbladder and extrahepatic biliary system. Normal spleen. Normal pancreas. Normal bilateral adrenal glands. Normal right kidney. Normal left kidney. Small hiatal hernia. Normal small intestine. Diverticulosis of the colon. There is wall thickening or inflammation involving the rectosigmoid junction suggesting diverticulitis. The appendix is nonvisualized. Normal abdominal aorta. Normal inferior vena cava. Normal retroperitoneum. Mild wall thickening of the urinary bladder. Normal abdominal wall. Lower lumbar degenerative changes. CT/Abdomen/Pelvis WITH Contrast IMPRESSION: Diverticulosis of the colon. There is wall thickening or inflammation involving the rectosigmoid junction suggesting diverticulitis. Bowel wall thickening of the urinary bladder. Electronically Signed: Edis Cisneros DO at 18:18 EDT Tel [phone], Service support ,
--- NOTE | 2018-01-03 15:43 | ED.VISSUMM ---
- ER Visit Summary Date of Service: 01/03/18 Chief Complaint: Abdominal pain History of Present Illness: The patient is a 57 F with lower abdominal pain present when she woke this morning. She felt well when she was to bed last night. She had some mild nausea but no vomiting. She is small bowel with this morning. She feels the need to have a bowel movement but is unable. Patient was admitted in early October with diverticulitis and this feels similar. She also has a history of hypertension, peptic ulcer disease, and psoriatic arthritis. Physical Examination: Vital signs are significant for blood pressure 198/133, otherwise unremarkable. She is afebrile. Head neck examination is normal. There is regular rate and rhythm. Lung sounds are clear. Abdomen is soft with tenderness in the lower abdomen. There is no guarding or rebound. Hypoactive bowel sounds are present throughout. Test Results: CBC and chemistry studies are significant only for potassium of 3.3. LFTs and lipase normal. Urinalysis normal. CT abdomen pelvis with IV contrast and p.o. contrast reveals diverticulosis of the colon. There is wall thickening and inflammation involving the rectosigmoid junction suggestive of diverticulitis. Emergency Department Course and Treatment: Patient was given morphine and Zofran here for pain control. She is given 2 doses hydralazine, 10 mg each. Blood pressure at this time is 168/103. Patient be discharged with Cipro and Flagyl, first doses given here. She given a short course of [place] for home. She will monitor her blood pressure at home as well. Treatment Plan: [] Disposition: Discharge Impression: Sigmoid diverticulitis This note was generated with [employer] dictation software. It may contain incorrect words, spelling, and punctuation that were not noted in review of the chart prior to signing ED Disposition - Plan for ED Patient: Chief Complaint: Abd Pain Referrals: Rosalind Peralta [NON-STAFF] -
[2018-01-03 15:46] VITALS: BP 261/127; PULSE 74; RESP 16; O2SAT 100
[2018-01-03 15:51] LABS: Absolute Lymphocyte Count 1.43 X10^3/ul (0.83-4.51); Absolute Neutrophil Count 6.4 X10^3/uL (2.0-7.7); Basophil# 0.04 X10^3/uL; Basophil% 0.5 % (0-1); Eosinophils% 1.1 % (0-5); Hematocrit 42.7 % (37-47); Hemoglobin 14.1 g/dl (12.0-15.0); Lymphocyte # 1.43 X10^3/ul (4.0); Lymphocyte % 16.3 % (19-41); Mean Corpuscular Volume 96.8 fL (81-99); Mean Platelet Vol. 9.9 fl (6.2-12.0); Monocyte# 0.79 X10^3/uL; Neutrophil # 6.43 X10^3/uL (2.7-7.7); Platelet Count 293 K/mm3 (150-450); RBC Distribution Width CV 13.3 % (11.6-14.6); RBC Distribution Width SD 46.1 fl (35.1-43.9); Red Blood Count 4.41 M/mm3 (4.2-5.4); White Blood Count 8.8 K/mm3 (4.4-11.0)
[2018-01-03 15:52] LABS: POSITIVE COUNT NO; POSITIVE DIFFERENTIAL NO; POSITIVE MORPHOLOGY NO
[2018-01-03] MEDS: 0.9% Normal Saline 1,000 ML 150 ML IV (15:54)
[2018-01-03] MEDS: Morphine 4 MG/ML Syringe IV ×2 (15:54→18:06)
[2018-01-03] MEDS: Ondansetron 4 MG/2 ML Vial IV ×2 (15:54→18:06)
[2018-01-03 16:06] LABS: AST(SGOT) 16 U/L (15-37); Alanine Aminotransfer ALT/SGPT 28 U/L (13-56); Albumin, Serum 4.3 g/dL (3.2-5.0); Alkaline Phosphatase 85 U/L (45-117); Anion Gap 6 (5-15); BUN 14 mg/dL (7-18); BUN/Creat Ratio 16.8 RATIO (10-20); Bilirubin, Direct 0.09 mg/dL (0.00-0.30); Chloride 103 mmol/L (98-107); Creatinine, Serum 0.83 mg/dL (0.55-1.02); EST Glomerular Filtration Rate 75 mL/min (>60); Est Glom Filt Rate - Afr Amer 91 mL/min (>60); Estimated Creatinine Clearance 66.13 ml/min; Globulin 3.8 g/dL (2.2-4.2); Glucose 83 mg/dL (74-106); Lipase 269 U/L (73-393); Potassium 3.3 mmol/L (3.5-5.1); Protein, Total 8.1 g/dL (6.4-8.2); Sodium Level 138 mmol/L (136-145)
--- NOTE | 2018-01-03 16:15 | NURSING ---
NO LW OR POA
[2018-01-03 16:36] VITALS: BP 227/103; PULSE 67; RESP 18; O2SAT 99
[2018-01-03] MEDS: hydrALAZINE 20 MG/ML Vial 10 MG IV ×2 (16:37→18:06)
[2018-01-03 16:54] LABS: Bacteria 0 SEEN /hpf (None Seen); Mucous, Urine 0 SEEN /hpf (<or=2+); Red Blood Cells-Urine 0 SEEN /hpf (0-5); Squamous Epithelial Cells - UA 0 SEEN /hpf (5-10); White Blood Cells 0 SEEN /hpf (0-5)
[2018-01-03 17:04] LABS: Color, Urine Yellow (Yellow); Glucose, Dipstick Normal (Normal); Ketone-Dipstick Negative (Negative); Leukocyte Esterase-Dipstick Negative /ul (Negative); Nitrite-Dipstick Negative (Negative); Occult Blood-Urine Negative /ul (Negative); Protein-Dipstick Negative (Negative); Urine Bilirubin Dipstick Negative (Negative); Urine Clarity Clear (Clear); Urine Urobilinogen Normal (Normal); Urine pH 6.5 (5.0 - 8.0)
[2018-01-03 18:06] VITALS: BP 175/116; PULSE 92; O2SAT 97
--- NOTE | 2018-01-03 18:48 | ED.DEP ---
ED Disposition - Plan for ED Patient: Disposition: Home or Assisted Living Chief Complaint: Abd Pain Instructions: ED Diverticulitis Prescriptions: Hydrocodone/Acetaminophen [[place] 5-325 Tablet] 1 - 2 each PO 4X/DAY PRN PRN 5 Days #20 tablet PRN Reason: Pain Metronidazole [Flagyl] 500 mg PO Q8H #30 tablet Ciprofloxacin [Cipro] 500 mg PO BID #20 tablet Referrals: Rosalind Peralta [NON-STAFF] - 1 Week
--- NOTE | 2018-01-03 18:51 | DCINST.ED_ITS ---
ED Disposition - Plan for ED Patient: Disposition: Home or Assisted Living Chief Complaint: Abd Pain Instructions: ED Diverticulitis Prescriptions: Hydrocodone/Acetaminophen [[place] 5-325 Tablet] 1 - 2 each PO 4X/DAY PRN PRN 5 Days #20 tablet PRN Reason: Pain Metronidazole [Flagyl] 500 mg PO Q8H #30 tablet Ciprofloxacin [Cipro] 500 mg PO BID #20 tablet Referrals: Rosalind Peralta [NON-STAFF] - 1 Week
[2018-01-03 19:00] VITALS: BP 137/82; PULSE 103
[2018-01-03] MEDS: metroNIDAZOLE 500 MG Tablet PO (19:11)
[2018-01-03] MEDS: Ciprofloxacin 250 MG Tablet 500 MG PO (19:11)
[2018-01-03 19:12] VITALS: BP 137/82; PULSE 98; RESP 16; O2SAT 100
== END 2018-01-03 19:16 | disposition home or self-care (01) ==
PROVIDERS: Emergency Provider Emergency Medicine; Family Provider Nurse Practitioner Family; PCP Nurse Practitioner Family
DX: K57.32 Diverticulitis of large intestine without perforation or abscess without bleeding (principal); K59.00 Constipation, unspecified; I10 Essential (primary) hypertension; K57.30 Diverticulosis of large intestine without perforation or abscess without bleeding; L40.50 Arthropathic psoriasis, unspecified; Z87.11 Personal history of peptic ulcer disease; Z72.0 Tobacco use
CPT/HCPCS: 74177; 80048; 80076; 81001; 83690; 85025; 96361; 96374; 96375; 96376; 99285; J7030; Q9967; A4216; J2405

== ENCOUNTER → 2018-11-09 11:28 | Outpatient (CLI) | payer BC, SELFPAY ==
[2018-09-13 17:45] VITALS: BMI 29.2
--- NOTE | 2018-11-09 11:35 | RAD_ITS ---
STUDY: X-RAY - RIGHT HAND REASON FOR EXAM: Pain in the first metacarpophalangeal joint and lateral hand, no specific injury. TECHNIQUE: 3 view(s) of the hand. COMPARISON: None. FINDINGS: Normal radiocarpal articulation. Normal distal radioulnar joint. Normal visualized carpal bones. Normal carpal articulations There is moderately severe joint space narrowing of the carpometacarpal articulation of the thumb. Normal second through fifth carpometacarpal joints. Normal metacarpi. Normal metacarpophalangeal joint of the thumb. There are small marginal osteophytes without joint space narrowing of the interphalangeal joint of the thumb. Normal proximal and distal phalanges of the thumb. Normal metacarpophalangeal joints of the second through fifth fingers. There are small marginal osteophytes and mild joint space narrowing of the second distal interphalangeal joint. Normal phalanges of the second through fifth fingers. The soft tissue structures are unremarkable. 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 Electronically Signed: Rashid Lee MD at 15:39 EDT Tel , Service support ,
== END ==
PROVIDERS: Family Provider Nurse Practitioner Family; PCP Nurse Practitioner Family; Referring Provider Nurse Practitioner Family; Visit Provider Nurse Practitioner Family
DX: M65.311 Trigger thumb, right thumb (principal)
CPT/HCPCS: 73130

== ENCOUNTER 2018-11-14 10:30 | Outpatient (RCR) | payer BC, SELFPAY ==
[2018-09-13 17:45] VITALS: BMI 29.2
--- NOTE | 2018-10-18 13:47 | HP.PTEVAL_ITS ---
Patient's Visit Information VIJI TESFAYE is a 58 year old F referred to Physical Therapy by Kenya Braun DC with a diagnosis of Lumbar spine pain. Date of Evaluation: 10/18/18 Physical Therapist: Harry Mckeon DPT - Visit Plan Frequency: 2x /Week Duration: 4 Weeks Plan: Start with core activitation, DN. Progress into extension exercises as tolerated. May use ice for pain control. Pt. is to have injections next week. Progress as tolerated after injections. - Subjective Findings: Pt. is here today for her initial evaluation with diagnosis of low back pain. Pt. reports having pain for a few months without mechanism of injury. Pt. reports increased pain in AMs, some mild relief as her day goes on. Pt. reporst increased pain with bending, twisting. Pt. reports increased pain with lifting and prolonged walking. Pt. reports no N/T in either LE. Pt. denies LEs given out on her. Pt. has had xrays showing reduced disc hieght and L4/L5 and L5/S1 regions. Pt. reports soreness throughout lumbar spine into SI region and into lateral hips. Pt. is hopeful to reduce symptoms in order to get back to all recreational activities limitations. - Pain Lumbar spine Pain Intensity (Out of 10): 7 Pain Intensity Range: 10 - Objective POSTURE: Pt. has general reduced lumabr lordosis. Pt. has no presence of lateral shift. Pt. has equal wt. shift between BLEs. PALPATION: Pt. has increased pain with spring testing of L3-S1, hypomobility noted. Pt. has no radicular symptoms. Pt. has pain in piriformis region as well. NEURO: Pt. has normal sensation throughout BLEs. Pt. has 2+ DTR of B knees and ankles. Pt. is able to rise on heels and toes without issues. ROM: LUMBAR SPINE: flexion mod loss increase NW, ext min loss mild increase nW, SB mod loss bilat increase NW, rotation min/mod loss bilat increase NW. Hips- normal througout, but does have increased symptoms with IR of bilateral hips. MMT: Pt. has 4+/5 througout bilateral LEs, except 4/5 throughout bilateral hips. Pt. has poor core strength. GAIT: Pt. ambulates with methodical pattern with slight increased lateral hip sway. Pt. reports increased pain during stance phase and increased pain with ascendnig/descending stairs. - Special Tests L/S Slump test left side: Positive L/S Slump test right side: Positive L/S Left Straight Leg Raise: Positive L/S Right Straight Leg Raise: Positive - Goals Goal 1:: Pt. to be I with HEP. Goal Time Frame: 4-6 Weeks Goal 2:: Pt. to have increased ROM throughout lumbar spine by 25% in all directions. Goal Time Frame: 4-6 Weeks Goal 3:: Pt. to have increased BLE and core strength increased by 1/2 grade of all effected musculature. Goal Time Frame: 4-6 Weeks Goal 4:: Pt. to be able to walk unlimited distances with 0-2/10 pain in lumbar spine. Goal Time Frame: 4-6 Weeks Goal 5:: Pt. to sleep throughout the night with 0-2/10 pain allowing for increased quality of life. - Rehabilitation Potential Physical Therapy Diagnosis: Pt. has signs and symptoms consistent with lumbar spine possibly SI dysfunction. Pt. has limited ROM throughout lumbar spine, but greatest pain with flexion and rotation motions. Pt. would benefit from PT to increase ROM, decrease her symptoms and increase core stability. Rehabilitation Potential: Fair - Anticipated Interventions Patient/Client Instruction: Educate patient on: Condition, Plan of Care, Risk Factors, Benefits of Fitness Program For the Purpose of:: To improve health and function, To foster healthy habits, To improve decision making, To facilitate caregiver knowledge, To improve self management, To prevent re-injury, To improve ability to perform tasks related to life management, To improve tolerance to ADL's Therapeutic Exercise to Include: Strength training, Power training, Endurance training, Agility training, Body mechanics, Postural training, Flexibilty training For the Purpose of:: To decrease pain, To decrease swelling/inflammation, To increase ROM, To improve nutrient delivery to tissue, To increase oxygenation perfusion, To improve muscle performance and motor function, To improve health of tissue, To decrease soft tissue restriction, To increase flexibility/ROM Manual Therapy Techniques to Include: Mobilization, Passive ROM, Functional dry needling, Soft tissue mobilization For the Purpose of:: To decrease pain, To decrease swelling/inflammation, To increase ROM, To improve muscle performance and motor function, To improve health of tissue, To decrease soft tissue restriction Thank you for the opportunity to evaluate your patient. For Medicare and Medicare HMO plans, please review the plan of care and approve it. It will need to be FAXED BACK to us at [phone] for Medicare purposes. For Medicare only, by signing this I certify the plan of care. Please let me know if there are questions or concerns regarding this plan of care. Physician Signature: __Date:
--- NOTE | 2018-11-20 07:27 | HP.PTREVAL_ITS ---
Kenya Braun DC, It has been my pleasure to treat VJII TESFAYE over the last 5 visits for Lumbar spine pain. Please see the progress note below for an update on the physical therapy plan of care! Subjective: Pt. continues to have increased soreness in her R side of SI region. Pt. is to follow up with pain management next week. She would like to follow up with Pt after. Objective/Function: Pt. tolerated all PT this date, but continues to have increased SI region pain. Pt. seems to be maintaining her symptoms, but has star manohar to have less and less effect with PT. PT. contiunes to have pain with extension motions and mornings are worse. Pt. has occassional radiating symptoms to her knee. Pt. desires to follow up with pain management at this point in time. Plan Plan: Start with core activitation, DN. Progress into extension exercises as tolerated. May use ice for pain control. Pt. is to have injections next week. Progress as tolerated after injections. Goals Goal 1:: Pt. to be I with HEP. Goal Time Frame: 4-6 Weeks Goal Progress: Goal Met Goal 2:: Pt. to have increased ROM throughout lumbar spine by 25% in all directions. Goal Time Frame: 4-6 Weeks Goal Progress: Progressing Goal 3:: Pt. to have increased BLE and core strength increased by 1/2 grade of all effected musculature. Goal Time Frame: 4-6 Weeks Goal Progress: Progressing Goal 4:: Pt. to be able to walk unlimited distances with 0-2/10 pain in lumbar spine. Goal Time Frame: 4-6 Weeks Goal Progress: Not Progressing Goal 5:: Pt. to sleep throughout the night with 0-2/10 pain allowing for increased quality of life. Goal Progress: Not Progressing Anticipated Interventions Patient/Client Instruction: Educate patient on: Condition, Plan of Care, Risk Factors, Benefits of Fitness Program For the Purpose of:: To improve health and function, To foster healthy habits, To improve decision making, To facilitate caregiver knowledge, To improve self management, To prevent re-injury, To improve ability to perform tasks related to life management, To improve tolerance to ADL's Therapeutic Exercise to Include: Strength training, Power training, Endurance training, Agility training, Body mechanics, Postural training, Flexibilty training For the Purpose of:: To decrease pain, To decrease swelling/inflammation, To increase ROM, To improve nutrient delivery to tissue, To increase oxygenation perfusion, To improve muscle performance and motor function, To improve health of tissue, To decrease soft tissue restriction, To increase flexibility/ROM Manual Therapy Techniques to Include: Mobilization, Passive ROM, Functional dry needling, Soft tissue mobilization For the Purpose of:: To decrease pain, To decrease swelling/inflammation, To increase ROM, To improve muscle performance and motor function, To improve health of tissue, To decrease soft tissue restriction Please do not hesitate to contact me at [phone] by phone or if you have questions or concerns regarding this new plan of care! Sincerely, SORAIDA CamposT
--- NOTE | 2019-03-26 10:40 | HP.PTDCSUM ---
HP - PT D/C Summary It has been my pleasure to treat VIJI TESFAYE under orders from Kenya Braun DC, for the diagnosis of Lumbar spine pain for a total of 5 visit(s). Discharge Date: 11/14/18 Please see the following information for a summary of their discharge status. - Subjective Subjective: Pt. continues to have increased soreness in her R side of SI region. Pt. is to follow up with pain management next week. She would like to follow up with Pt after. - Pain Lumbar spine Pain Intensity (Out of 10): 2 - Overall Improvement % Improvement: 50 - Objective Objective/Function: Pt. tolerated all PT this date, but continues to have increased SI region pain. Pt. seems to be maintaining her symptoms, but has started to have less and less effect with PT. PT. contiunes to have pain with extension motions and mornings are worse. Pt. has occassional radiating symptoms to her knee. Pt. desires to follow up with pain management at this point in time. - Goals Goal 1:: Pt. to be I with HEP. Goal Progress: Goal Met Goal 2:: Pt. to have increased ROM throughout lumbar spine by 25% in all directions. Goal Progress: Progressing Goal 3:: Pt. to have increased BLE and core strength increased by 1/2 grade of all effected musculature. Goal Progress: Progressing Goal 4:: Pt. to be able to walk unlimited distances with 0-2/10 pain in lumbar spine. Goal Progress: Not Progressing Goal 5:: Pt. to sleep throughout the night with 0-2/10 pain allowing for increased quality of life. Goal Progress: Not Progressing - Plan Plan: Start with core activitation, DN. Progress into extension exercises as tolerated. May use ice for pain control. Pt. is to have injections next week. Progress as tolerated after injections. - D/C Information Discharge Comments: Pt. was seen in PT for core stability, DN and manual activites. Pt. has made slight progress, but desires to follow up with pain management at this point in time. Pt. will be DC to HEP at this point in time. If there are questions or concerns regarding this patient's physical therapy, please feel free to call me at [phone]. Thank you for the referral of this patient. Sincerely, Harry Mckeon DPT
== END 2018-11-14 19:00 | disposition home or self-care (01) ==
LOC: PT 10:30
PROVIDERS: Family Provider Nurse Practitioner Family; PCP Nurse Practitioner Family; Referring Provider Chiropractor; Visit Provider Chiropractor
DX: M99.03 Segmental and somatic dysfunction of lumbar region (principal)
CPT/HCPCS: 97110; 97140; 97161

== ENCOUNTER → 2018-11-26 15:40 | Outpatient (CLI) | payer BC, SELFPAY ==
[2018-09-13 17:45] VITALS: BMI 29.2
--- NOTE | 2018-11-26 15:48 | MRI_ITS ---
STUDY: MRI LUMBAR SPINE WITHOUT CONTRAST REASON FOR EXAM: Female, 58 years old. Low back pain radiating to right hip TECHNIQUE: Standardized fat and water weighted pulse sequences were obtained in the sagittal and axial planes. COMPARISON: Lumbar spine films on August 21, 2018 FINDINGS: T12-L1: Normal endplates. Normal disc height, hydration and morphology. Normal bilateral facet joints. Normal central canal and bilateral lateral recesses. Normal bilateral intervertebral neural foramina. Decreased lumbar lordosis. There is no substantial scoliosis. Normal conus medullaris that terminates at T12-L1 L1-2: Normal endplates. Normal disc height, hydration and morphology. Normal bilateral facet joints. Normal central canal and bilateral lateral recesses. Normal bilateral intervertebral neural foramina. L2-3: Normal endplates. Normal disc height, hydration and morphology. Normal bilateral facet joints. Normal central canal and bilateral lateral recesses. Normal bilateral intervertebral neural foramina. L3-4: Normal endplates. Normal disc height, desiccation and mild annular bulge. Normal bilateral facet joints. Normal central canal and bilateral lateral recesses. Mild bilateral neural foraminal encroachment. L4-5: Narrowed disc space with desiccation of the disc and mild bulging disc osteophyte complex.. Normal bilateral facet joints. Normal central canal and bilateral lateral recesses. Moderate bilateral neuroforaminal stenosis. L5-S1: Normal endplates. Normal disc height, desiccation and minor annular bulge.. Mild facet arthropathy.. Normal central canal and bilateral lateral recesses. Mild bilateral neural foraminal encroachment. Normal visualized sacral ala. Normal visualized paraspinous soft tissue structures. MRI/Spine Lumbar (Routine) IMPRESSION: Mild spondylosis most severe at L4-5.. Spinal stenosis at L3-4, L5-S1 and most severe at L4-5 secondary to bulging annuli and facet arthropathy. Electronically Signed: Montana Dillard MD at 18:02 EDT , Service support ,
== END ==
PROVIDERS: Referring Provider Nurse Practitioner Family; Visit Provider Nurse Practitioner Family
DX: M51.37 Other intervertebral disc degeneration, lumbosacral region (principal); M54.17 Radiculopathy, lumbosacral region
CPT/HCPCS: 72148

== ENCOUNTER 2019-04-10 12:00 | Outpatient (RCR) | payer BC, SELFPAY ==
[2018-11-29 13:08] VITALS: BMI 27.4
--- NOTE | 2019-02-26 14:12 | HP.PTEVAL ---
Patient's Visit Information VIJI TESFAYE is a 59 year old F referred to Physical Therapy by HI Cardoso with a diagnosis of LUMBAR DDD, RADICULOPATHY, STENOSIS, SPONDYLOSIS & FACET ARTHROPATHY. Date of Evaluation: 02/26/19 Physical Therapist: Adelaide Pena PT, Cert MDT - Visit Plan Frequency: 2-3x /Week Duration: 4-6 Weeks Plan: AQUATIC THERAPY FOR PAIN RELEIF, POSTURE CORRECTION/STRENGTHENING, INSTRUCTION IN APPROPRIATE BODY MECHANICS AND ACTIVITY MODIFICATIONS. DLS WITH A NEUTRAL SPINE. DANUTA LE ROM, STRETCHING AND STRENGTHENING. HEP INSTRUCTION. - Subjective Findings: Work/Leisure: UNEMPLOYEED SINCE MAY 2018. 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 2.5 AND 5.5 YEARS OLD. Disability: TRYING TO GET ON DISABILITY. Present symptoms: DANUTA LOW BACK, RIGHT BUTTOCK, AND RIGHT THIGH. NO NUMBNESS OR TINGLING. Present since: RIGHT LEG PAIN STARTED ABOUT 12 DAYS AGO. LOW BACK PAIN STARTED ABOUT A YEAR AGO. Pain Scale: WORST 8/10 BACK AND RLE, LEAST 5/10. Currently: 01/30. Commenced as a result of: NO APPARENT REASON. Symptoms at onset: LOW BACK. Worse: STANDING, SITTING, DRIVING, WALKING. Better: LYING DOWN. Disturbed sleep: YES. Previous history/Previous treatment: 3 IZZY'S WITH 4TH PENDING APPROVAL - STARTED INJECTIONS APPROX OCTOBER 2018 - PATIENT REPORTS 30% OR SO RELIEF FROM LAST INJECTION. HAS TRIED PHYSICAL THERAPY SEVERAL TIMES INCLUDING DRY NEEDLING WITH 1-2 DAYS OF RELIEF. H/O CHIROPRACTIC TREATMENTS RECENT NOVEMBER 2018 - PATIENT REPORTS GETTING A DAY OR TWO OF RELIEF THEN EVERYTHING IRRITATES BACK UP AGAIN. NO BACK SURGERY. NO NECK SURGERY. HAS NOT SEEN A SPINE SURGEON. Coughing/sneezing/straining: POSITIVE. Gait: PATIENT REPORTS SHE FEELS LIKE SHE WALKS HUNCHED OVER BECAUSE OF HER BACK PAIN. FAVORS RIGHT LEG AND FINDS HERSELF LEANING OVER GROCERY CART. Difficulty initiating urinatin: NO. Accidents: NO. Unexplained weight loss: NO. Imaging: THIS YEAR HAD BACK MRI AND X-RAY - DDD, L45 DEGENERATION, SLIGHT BULGING PER PATIENT REPORT. PMH: PSORIATIC ARTHRITIS, OSTEOARTHRITIS. Recent major surgery: LEFT PARTIAL KNEE REPLACEMENT. RIGHT TKR. - Objective Sitting/Standing Posture: POOR. Lordosis: DECREASED. Lateral shift: NO. Relevant shift: N/A. Active Correction of posture: NE. Other Observations: Motor deficit: LLE 5/5 EXCEPT HIP 4/5. RIGHT LE: HIP 3+/5, KNEE 4-/5, ANKLE 5/5. Sensory deficit: DANUTA LE LIGHT TOUCH SENSATION APPEARS INTACT AND SYMMETRICAL. ROM deficit: TIGHT DANUTA HS'S AND GASTROC SOLEUS COMPLEX'S RIGHT > LEFT. Reflexes: NT. Dural Signs: POSITIVE RIGHT LE. NEGATIVE LLE. Lumbar mvmt loss: flex - MOD - CATCHING PAIN. ext - JAROCHO - LBP. R SG - JAROCHO - LBP. L SG - JAROCHO - LBP. CONSTANT LEG PAIN THAT DOES NOT INCREASE WITH LUMBAR ROM TESTING. Core strength: POOR. Palpation: NO ACUTE TENDERNESS WITH LIGHT PALPATION OF LOWER THORACIC, LUMBOSACRAL, PELVIC OR HIP REGIONS. - Goals Goal 1:: DECREASE C/O BACK AND RIGHT LE PAIN Goal Time Frame: 4-6 Weeks Goal 2:: IMPROVE PERSONAL CARE, LIFTING, WALKING, SITTING, STANDING, SLEEP, SOCIAL LIFE, TRAVEL AND HOMEMAKING FUNCTION Goal Time Frame: 4-6 Weeks Goal 3:: INSTRUCT IN PROPHYLAXIS Goal Time Frame: 4-6 Weeks - Rehabilitation Potential Rehabilitation Potential: Fair - Anticipated Interventions Patient/Client Instruction: Educate patient on: Condition, Plan of Care, Risk Factors, Benefits of Fitness Program For the Purpose of:: To improve self management Therapeutic Exercise to Include: Strength training, Body mechanics, Postural training, Flexibilty training, Gait and locomotor training, In an aquatic setting, Dynamic Lumbar Stabilization For the Purpose of:: To decrease pain, To increase ROM, To improve muscle performance and motor function, To increase tolerance to activity/condition/position, To improve ability of physical actions for home/community/work/leisure, To improve gait and locomotor functions Thank you for the opportunity to evaluate your patient. For Medicare and Medicare HMO plans, please review the plan of care and approve it. It will need to be FAXED BACK to us at [phone] for Medicare purposes. For Medicare only, by signing this I certify the plan of care. Please let me know if there are questions or concerns regarding this plan of care. Physician Signature: Date:
--- NOTE | 2019-05-30 15:04 | HP.PTDCNRP_ITS ---
HP - Discharge Summary (1) - Patient Information VIJI TESFAYE was seen in my office for initial evaluation on 02/26/19. The following Plan of Care was established for this patient: Initial Frequency: 2-3x /Week Initial Duration: 4-6 Weeks - Anticipated Interventions Patient/Client Instruction: Educate patient on: Condition, Plan of Care, Risk Factors, Benefits of Fitness Program For the Purpose of:: To improve self management Therapeutic Exercise to Include: Strength training, Body mechanics, Postural training, Flexibilty training, Gait and locomotor training, In an aquatic setting, Dynamic Lumbar Stabilization For the Purpose of:: To decrease pain, To increase ROM, To improve muscle performance and motor function, To increase tolerance to activity/condition /position, To improve ability of physical actions for home/community/work/leisure, To improve gait and locomotor functions This patient was last seen in our office 04/10/19. Pertinent comments regarding their Physical therapy will appear below: This patient has not returned to Physical Therapy and is appropriate to return to MD for further follow-up as needed. At this point I will be discontinuing this patient from physical therapy. I would be happy to see this patient again in the future if found appropriate by the physician. Thank you! Adelaide Pena, PT, Cert MDT
== END 2019-04-10 19:00 | disposition home or self-care (01) ==
LOC: PT 12:00
PROVIDERS: Referring Provider Nurse Practitioner Family; Visit Provider Nurse Practitioner Family
DX: M53.3 Sacrococcygeal disorders, not elsewhere classified (principal); M51.37 Other intervertebral disc degeneration, lumbosacral region; M54.17 Radiculopathy, lumbosacral region; M48.07 Spinal stenosis, lumbosacral region; M47.817 Spondylosis without myelopathy or radiculopathy, lumbosacral region; M46.96 Unspecified inflammatory spondylopathy, lumbar region
CPT/HCPCS: 97113; 97162

== ENCOUNTER 2019-06-21 14:13 | Emergency (ER) | payer BC, SELFPAY ==
[2018-11-29 13:08] VITALS: BMI 27.4
[2019-06-21 14:15] VITALS: BP 172/128; PULSE 78; RESP 18; TEMP 36.8; O2SAT 100; BMI 27.4
--- NOTE | 2019-06-21 14:51 | ED.DCSUM_ITS ---
History of Present Illness Chief Complaint: Lower Extremity Injury Detail of Chief Complaint: Right ankle injury Informant: Patient Onset: Days - Injury occurred June 19 Context: Sudden Onset Timing: Continuous Quality: Pain Location: Lateral right ankle Current Severity: Mild Maximum Severity: Moderate Worsened by: Attempt to ambulate Relieved by: Better with elevation and rest Associated Symptoms: No associated symptoms Narrative: Patient is a 59-year-old woman who is walking down steps and missed the last step. She had a plantar inversion mechanism injury. She states she had severe pain laterally. She is had difficulty ambulating since. She denies prior injury. She denies symptoms of claudication or peripheral arterial disease. Prior similar symptoms: No Recent Illness/Hospitalization: No - Past Medical History (1) Alcohol intoxication Status: Acute (2) Essential hypertension Status: Chronic (3) Peptic ulcer disease Status: Chronic (4) Psoriatic arthritis Status: Chronic Past Medical History - Allergies and Home Meds Allergies/Adverse Reactions: Allergies adhesive tape Allergy (Severe, Verified 08/21/18 14:13) blistering Primary Care Physician: Rosalind Suggs [Primary Care Provider] - Prior records reviewed: Yes Surgical History: noncontributory Lives: Spouse/ Significant Other Smoking Status: Current every day smoker Alcohol: Rare Drugs: None - Family History Maternal Family History: Family History (Last Reviewed 11/12/18 @ 11:03 by Sravani Rodriguez) Other Breast cancer CAD (coronary artery disease) Heart disease Hypertension Family History: Reports: No pertinent history Paternal Family History: Family History (Last Reviewed 11/12/18 @ 11:03 by Sravani Rodriguez) Other Breast cancer CAD (coronary artery disease) Heart disease Hypertension Family History: Reports: No pertinent history Review of Systems General: Denies: Chills, Fever, Malaise, Subjective, Sweats Musculoskeletal: Reports: Swelling, Extremity Pain. Denies: Myalgias, Arthralgias, Neck pain, Back pain Skin: Denies: Rash, Wounds Neurological: Denies: Headache, Weakness, Parasthesia Hematologic: Denies: Easy bruising, Easy bleeding Physical Exam Vital Signs/Narrative: Vital Signs Temp Pulse Resp BP Pulse Ox 06/21/19 14:15 98.3 F 78 18 172/128 H 100 Inital Vital Signs reviewed: Yes General: Well nourished, Well developed, No Acute Distress Head: Normocephalic, Atraumatic Eyes: Perrl, EOMI. Negative for: Pale conjunctiva Cardiovascular: Regular rate, Regular rhythm, No murmurs Respiratory: No distress Extremities: No edema, Tenderness, - - There is pain palpation posterior distal 3 cm the lateral malleolus and distal 2 cm of the medial malleolus. There is soft tissue swelling with discoloration. There is no lacks with drawer testing. DP and PT pulses are palpable. There is no tenderness over the base of the fifth metatarsal. Skin: Normal color, No rash, Trauma. Negative for: Cyanosis, Diaphoresis, Jaundice, No Trauma Neurological: Alert, Oriented x3, Cranial nerves II-XII grossly intact, Normal Strength, Normal Sensation. Negative for: Normal Gait Psychological: Normal affect Diagnostic/Tx/Re-eval Chest X-Ray - ED: Read by ED Physician, - - Three-view x-ray of the right ankle was obtained and interpreted by me as negative for fracture, subluxation or dislocation. There is soft tissue swelling noted. There is no evidence of fracture at the base of the fifth metatarsal. - Medical Decision Making Tray of the ankle was obtained to evaluate for fracture versus sprain. Based on the [place] ankle rule imaging is indicated. ED Disposition - Plan for ED Patient: Disposition: Home or Assisted Living Diagnosis: Sprain of tibiofibular ligament of right ankle, initial encounter Instructions: Sprain, Ankle, with X-Ray Referrals: Rosalind Suggs [Primary Care Provider] - 10-14 Days if not better Additional Instructions: Elevate ankle as much as possible. Apply ice 20 to 30 minutes per application 6-8 times a day. Take either 4 ibuprofen tablets every 8 hours or 2 Aleve tablets every 12 hours for the next 3 to 5 days. Draw the alphabet with your foot 4-6 times a day.
--- NOTE | 2019-06-21 14:55 | RAD_ITS ---
STUDY: X-RAY - RIGHT ANKLE REASON FOR EXAM: Female, 59 years old. TECHNIQUE: 3 view(s) of the ankle. COMPARISON: None. FINDINGS: There is no evidence of fracture or dislocation. The ankle mortise is unremarkable. There is mild soft tissue swelling adjacent to the medial malleolus. The subtalar joint is within normal limits. There is large plantar heel spur. RAD/Ankle min 3 Views IMPRESSION: Large plantar heel spur. Electronically Signed: Titus Lancaster, at 15:17 EST Tel , Service support ,
--- NOTE | 2019-06-21 15:35 | ED.RN ---
DISCHARGE INSTRUCTIONS GIVEN TO AND REVIEWED WITH PATIENT, PATIENT DENIES QUESTIONS OR CONCERNS AND VOICES UNDERSTANDING OF DISCHARGE INSTRUCTIONS. PT AMBULATES OUT OF ROOM WITHOUT WITH STEADY GAIT.
== END 2019-06-21 15:35 | disposition home or self-care (01) ==
PROVIDERS: Emergency Provider Emergency Medicine
DX: S93.431A Sprain of tibiofibular ligament of right ankle, initial encounter (principal); W10.9XXA Fall (on) (from) unspecified stairs and steps, initial encounter; Y93.9 Activity, unspecified; Y92.89 Other specified places as the place of occurrence of the external cause; Y99.9 Unspecified external cause status; F17.200 Nicotine dependence, unspecified, uncomplicated; I10 Essential (primary) hypertension; M77.31 Calcaneal spur, right foot; Z82.49 Family history of ischemic heart disease and other diseases of the circulatory system; Z87.11 Personal history of peptic ulcer disease; L40.50 Arthropathic psoriasis, unspecified
CPT/HCPCS: 73610; 99282

== ENCOUNTER 2020-01-16 22:28 | Emergency (ER) | payer SELFPAY ==
[2020-01-16 22:29] VITALS: BP 148/103; PULSE 94; RESP 16; TEMP 36.2; O2SAT 96; BMI 29.2
[2020-01-16 22:37] VITALS: RESP 16
--- NOTE | 2020-01-16 22:43 | ED.VIS.GEN ---
History of Present Illness Chief Complaint: Laceration Informant: Patient Onset: Today Context: Sudden Onset Timing: Continuous Current Severity: Moderate Maximum Severity: Moderate Narrative: The patient is a 59-year-old female with up-to-date tetanus in her normal state of health presents to the emergency department with lip laceration. Patient was walking upstairs with a glass. She tripped and fell forward. She caught her right upper lip on the glass. She did not strike her head. She denies loss of consciousness. She is not on anticoagulants. She denies other injury. She is otherwise been in her normal state of health. Prior similar symptoms: No Recent Illness/Hospitalization: No Past Medical History - Allergies and Home Meds Allergies/Adverse Reactions: Allergies adhesive tape Allergy (Severe, Verified 08/21/18 14:13) blistering BEE STING Allergy (Uncoded 01/16/20 22:29) Swelling Primary Care Physician: Rosalind Suggs [Primary Care Provider] - 3-5 Days Prior records reviewed: Yes Past Medical History: None Surgical History: noncontributory Smoking Status: Former smoker - Family History Maternal Family History: Family History (Last Reviewed 11/12/18 @ 11:03 by Sravani Rodriguez) Other Breast cancer CAD (coronary artery disease) Heart disease Hypertension Family History: Reports: No pertinent history Paternal Family History: Family History (Last Reviewed 11/12/18 @ 11:03 by Sravani Rodriguez) Other Breast cancer CAD (coronary artery disease) Heart disease Hypertension Family History: Reports: No pertinent history Review of Systems General: Denies: Chills, Fever, Sweats Eyes: Denies: Visual changes - bilaterally, Diplopia ENT: Denies: Rhinorrhea, Sore throat Cardiovascular: Denies: Chest pain, Palpitations Respiratory: Denies: Dyspnea, Cough, Dyspnea on exertion Gastrointestinal: Denies: Abdominal pain, Nausea, Vomiting, Diarrhea, Melena, Hematochezia Genitourinary: Denies: Dysuria, Hematuria, Frequency Musculoskeletal: Denies: Back pain, Extremity Pain Skin: Denies: Rash, Wounds Neurological: Denies: Headache, Weakness, Numbness Physical Exam Vital Signs/Narrative: Vital Signs Temp Pulse Resp BP Pulse Ox 01/16/20 22:37 16 01/16/20 22:29 97.2 F L 94 16 148/103 H 96 Inital Vital Signs reviewed: Yes General: Well nourished, Well developed, No Acute Distress Head: Normocephalic, Atraumatic Eyes: Perrl, EOMI ENT: Moist mucous membranes, No rhinorrhea, - - Patient has a 2 cm L-shaped laceration of the right upper lip through the vermilion border. There is no dental injury. There is no malocclusion. Neck: Supple, Nontender Cardiovascular: Regular rate, Regular rhythm, No murmurs Respiratory: No distress, CTA bilaterally, Chest nontender Abdomen: Soft, Nontender, Nondistended, Normal bowel sounds Back: Nontender, Normal Inspection Extremities: Nontender, No edema Skin: Normal color, No rash Neurological: Alert, Oriented x3, Cranial nerves II-XII grossly intact, Normal Strength, Normal Sensation Psychological: Normal affect, Normal Mood Diagnostic/Tx/Re-eval - Medical Decision Making Patient presents with laceration of the upper lip through the vermilion border. It is not a through and through. The wound was anesthetized with 2 cc of 1% lidocaine with epinephrine. It was explored. There is no evidence of foreign body. It was cleansed. It was closed with two 6-0 nylon sutures on the skin at the vermilion border and above. 1 5-0 gut suture was used along the lip edge where it was open. The patient tolerated the issue. She was counseled on local wound care and reasons to return. She will be discharged home. Impression 1. 2 cm lip laceration with repair ED Disposition - Plan for ED Patient: Instructions: ED Laceration Facial Sutr Tape Referrals: Rosalind Suggs [Primary Care Provider] - 3-5 Days
[2020-01-16 23:07] VITALS: BP 139/90
== END 2020-01-16 23:08 | disposition home or self-care (01) ==
LOC: ED 22:47
PROVIDERS: Emergency Provider Emergency Medicine
DX: S01.511A Laceration without foreign body of lip, initial encounter (principal); Z87.891 Personal history of nicotine dependence; W25.XXXA Contact with sharp glass, initial encounter; Y93.01 Activity, walking, marching and hiking; Y92.009 Unspecified place in unspecified non-institutional (private) residence as the place of occurrence of the external cause; Y99.8 Other external cause status
CPT/HCPCS: 12011; 99283

== ENCOUNTER → 2021-07-14 09:38 | Outpatient (CLI) | payer BC, SELFPAY ==
--- NOTE | 2021-07-14 09:43 | BI_ITS ---
MAMMOGRAPHY - BILATERAL SCREENING REASON FOR EXAM: Female, 61 years old. Routine annual screening examination. PERTINENT HISTORY: Mother with breast cancer. TECHNIQUE: Digital bilateral breast niharika (3D mammographic acquisition) in the CC and MLO projections. 2-D mediolateral oblique (MLO) and craniocaudad (CC) views of both breasts were obtained. CAD: Full Field Digital Mammography with Computer Added Detection was performed. COMPARISON: Comparison is made with prior examination 10/02/2017. FINDINGS: Breast Composition: The breasts are heterogeneously dense, which may obscure small masses. There are no dominant masses or suspicious calcifications. Stable small benign-appearing bilateral axillary nodes. No other significant abnormalities are identified. There has been no significant change since the prior study. BI/SCRN MAMM (CAD)W/NIHARIKA BILAT IMPRESSION: Stable bilateral screening mammogram. Yearly follow-up mammogram recommended. (A) ASSESSMENT CATEGORY: BIRADS Category 2: Benign. A letter regarding these results will be sent to the patient by the facility within 30 days. Approximately 10% of breast cancers are not detected by mammography. A normal mammogram should not delay biopsy of a clinically suspicious abnormality. [id number] Electronically Signed: Getachew Wayne MD at 10:55 EST , Service support ,
--- NOTE | 2021-07-14 09:46 | BD_ITS ---
STUDY: DUAL ENERGY X-RAY ABSORPTIOMETRY / DXA REASON FOR EXAM: Female, 61 years old. M810. The patient is postmenopausal. TECHNIQUE: Bone Mineral Density (BMD) measurements of lumbar spine and bilateral hips were obtained. COMPARISON: None. FINDINGS: Lumbar Spine (L1-L4): g/cm2 (0.778) / T-score (-2.5) / Z-score (-1.2) Findings are suggestive of osteopenia with a high fracture risk. Left Femur Total: g/cm2 (0.862) / T-score (-0.7) / Z-score (0.3) Left Femoral Neck: g/cm2 (0.704) / T-score (-1.3) / Z-score (-0.1) Right Femur Total: g/cm2 (0.920) / T-score (-0.2) / Z-score (0.7) Right Femoral Neck: g/cm2 (0.768) / T-score (-0.7) / Z-score (0.5) BD/Dexa Bone Density Study IMPRESSION: The patient is considered osteopenic as outlined below according to World Faisal Organization (WHO) criteria with a high fracture risk. Reference Information: The T-score is the number of standard deviations above or below the standard which is normal for young adults at their peak bone mineral density. The World Health Organization (WHO) interprets the T-scores as follows: Above -1 Normal bone density Between -1 and -2.5 Osteopenia Equal to / or below -2.5 Osteoporosis As a practical clinical guideline, osteopenia may be graded as follows: Mild -1 through -1.5 Moderate -1.6 through -2.0 Severe -2.1 through -2.4 The Z-score is the number of standard deviations above or below age-matched controls. A Z-score of less than -1.5 would be considered abnormal. References: 1. NIH Osteoporosis and Related Bone Diseases www osteo.org 2. International Society for Clinical Densitometry www iscd.org 3. National Osteoporosis Foundation www nof.org Electronically Signed: Getachew Wayne MD at 9:27 EST , Service support ,
== END ==
PROVIDERS: Referring Provider Nurse Practitioner Adult Health; Visit Provider Nurse Practitioner Adult Health
DX: Z12.31 Encounter for screening mammogram for malignant neoplasm of breast (principal); M81.0 Age-related osteoporosis without current pathological fracture
CPT/HCPCS: 77063; 77067; 77080

== ENCOUNTER 2021-09-10 12:01 | Outpatient (CLI) | payer MEDICARE, SELFPAY ==
[2021-09-10 12:40] LABS: Absolute Neutrophil Count 4.9 X10^3/uL (2.0-7.7); Basophil# 0.05 X10^3/uL; Basophil% 0.7 % (0-1); Eosinophil# 0.07 X10^3/uL; Hematocrit 41.1 % (37-47); Hemoglobin 13.7 g/dL (12.0-15.0); Lymphocyte % 23.1 % (19-41); Mean Corp Hgb Conc 33.3 g/dL (32-36); Mean Corpuscular Hgb 31.2 pg (27.0-32.0); Mean Corpuscular Volume 93.6 fL (81-99); Mean Platelet Vol. 9.8 fl (6.2-12.0); Monocyte# 0.34 X10^3/uL; Monocyte% 4.9 % (0-10); NRBC Flagged by Analyzer 0 % (0-5); Neutrophil # 4.85 X10^3/uL (2.7-7.7); Platelet Count 370 K/mm3 (150-450); RBC Distribution Width CV 12.9 % (11.6-14.6); RBC Distribution Width SD 44.5 fl (35.1-43.9); Red Blood Count 4.39 M/mm3 (4.2-5.4); White Blood Count 6.9 K/mm3 (4.4-11.0)
[2021-09-10 13:19] LABS: AST(SGOT) 35 U/L (15-37); Alanine Aminotransfer ALT/SGPT 48 U/L (13-56); Albumin, Serum 3.9 g/dL (3.2-5.0); Alkaline Phosphatase 103 U/L (45-117); Anion Gap 7 (5-15); BUN 14 mg/dL (7-18); BUN/Creat Ratio 18.9 RATIO (10-20); Calcium,Total 9.1 mg/dL (8.5-10.1); Chloride 102 mmol/L (98-107); Creatinine, Serum 0.74 mg/dL (0.55-1.02); EST Glomerular Filtration Rate 85 mL/min (>60); Est Glom Filt Rate - Afr Amer 103 mL/min (>60); Glucose 97 mg/dL (74-106); Potassium 3.6 mmol/L (3.5-5.1); Protein, Total 7.9 g/dL (6.4-8.2); Sodium Level 137 mmol/L (136-145); Thyroid Stim Hormone (TSH) 0.83 uIU/mL (0.358-3.74)
[2021-09-10 13:46] LABS: Hepatitis C Antibody Non-Reactive (Nonreactive); Vitamin D,25 Hydroxy 59.8 ng/mL
== END 2021-09-10 23:59 | disposition home or self-care (01) ==
PROVIDERS: Visit Provider Family Medicine Geriatric Medicine
DX: R53.83 Other fatigue (principal); E55.9 Vitamin D deficiency, unspecified; Z13.89 Encounter for screening for other disorder
CPT/HCPCS: 36415; 80053; 82306; 84443; 85025; 86803

== ENCOUNTER 2021-10-18 09:08 | Outpatient (CLI) | payer MEDICARE, SELFPAY ==
[2021-10-18 12:28] LABS: Absolute Lymphocyte Count 1.62 X10^3/uL (0.83-4.51); Absolute Neutrophil Count 3.9 X10^3/uL (2.0-7.7); Basophil# 0.05 X10^3/uL; Basophil% 0.8 % (0-1); Eosinophil# 0.09 X10^3/uL; Eosinophils% 1.5 % (0-5); Lymphocyte # 1.62 X10^3/ul (0.83-4.51); Lymphocyte % 26.5 % (19-41); Mean Corp Hgb Conc 32.6 g/dL (32-36); Mean Corpuscular Hgb 30.6 pg (27.0-32.0); Mean Corpuscular Volume 93.9 fL (81-99); Mean Platelet Vol. 10.6 fl (6.2-12.0); Monocyte# 0.46 X10^3/uL; Monocyte% 7.5 % (0-10); NRBC Flagged by Analyzer 0 % (0-5); Neutrophil # 3.86 X10^3/uL (2.7-7.7); Neutrophil % 63.2 % (47-70); Platelet Count 286 K/mm3 (150-450); RBC Distribution Width CV 13.3 % (11.6-14.6); RBC Distribution Width SD 45.6 fl (35.1-43.9); Red Blood Count 4.58 M/mm3 (4.2-5.4); White Blood Count 6.1 K/mm3 (4.4-11.0)
[2021-10-18 12:55] LABS: ALB/GLOB Ratio 0.8 RATIO (0.9-2.4); AST(SGOT) 35 U/L (15-37); Alanine Aminotransfer ALT/SGPT 44 U/L (13-56); Albumin, Serum 3.8 g/dL (3.2-5.0); Alkaline Phosphatase 106 U/L (45-117); Anion Gap 7 (5-15); BUN 15 mg/dL (7-18); BUN/Creat Ratio 19.6 RATIO (10-20); Calcium,Total 9.6 mg/dL (8.5-10.1); Chloride 102 mmol/L (98-107); Creatinine, Serum 0.76 mg/dL (0.55-1.02); EST Glomerular Filtration Rate 82 mL/min (>60); Est Glom Filt Rate - Afr Amer 99 mL/min (>60); Globulin 4.5 g/dL (2.2-4.2); Glucose 112 mg/dL (74-106); Potassium 3.8 mmol/L (3.5-5.1); Protein, Total 8.3 g/dL (6.4-8.2); Sodium Level 135 mmol/L (136-145)
== END 2021-10-18 23:59 | disposition home or self-care (01) ==
LOC: CT 09:08
PROVIDERS: Visit Provider Family Medicine Geriatric Medicine
DX: R10.9 Unspecified abdominal pain (principal); Z87.891 Personal history of nicotine dependence
CPT/HCPCS: 36415; 80053; 85025

== ENCOUNTER 2021-10-18 10:59 | Outpatient (CLI) | payer MEDICARE, SELFPAY ==
--- NOTE | 2021-10-18 11:02 | CT_ITS ---
STUDY: CT ABDOMEN AND PELVIS WITH CONTRAST REASON FOR EXAM: Female, 61 years old. Left lower quadrant pain. History of diverticulitis. RADIATION DOSAGE (If Supplied By Facility): CTDIvol = ( 14.65 ) mGy, DLP = ( 821.83 ) mGycm TECHNIQUE: Transaxial images were obtained from the dome of the diaphragm to the symphysis pubis with oral contrast. Oral and amp; IV Gastrografin and amp; 100mL Isovue-300 was administered. Sagittal and coronal images were reconstructed. Individualized dose optimization techniques were used for this CT. COMPARISON: Comparison is made with prior study dated 01/03/2018. FINDINGS: The visualized lung bases are unremarkable. The visualized portions of the heart are within normal limits. There is decreased attenuation of the liver consistent with steatosis. Normal gallbladder and extrahepatic biliary system. Normal spleen. Normal pancreas. Normal bilateral adrenal glands. Normal right kidney. Normal left kidney. Normal visualized stomach. Mild degree of thickening of the terminal ileum. There is diverticulosis, with thickening of the colon wall, and pericolonic inflammation changes consistent with acute diverticulitis. There is non-visualization of the appendix. There is scattered atherosclerotic calcification of the abdominal aorta, without a demonstrated aneurysm. Normal inferior vena cava. Normal retroperitoneum. Normal urinary bladder. There is absence of the uterus consistent with a prior hysterectomy. There is a left-sided inguinal hernia containing adipose tissue. Normal osseous structures. CT/Abdomen/Pelvis WITH Contrast IMPRESSION: Findings incomplete with a noncomplicated acute sigmoid diverticulitis. Diffuse thickening of the terminal ileum. Electronically Signed: Getachew Wayne MD at 13:33 EDT ,
== END 2021-10-18 23:59 | disposition home or self-care (01) ==
PROVIDERS: Referring Provider Family Medicine Geriatric Medicine; Visit Provider Family Medicine Geriatric Medicine
DX: R10.9 Unspecified abdominal pain (principal)
CPT/HCPCS: 36415; 74177; 80053; 85025; Q9967; A4216

== ENCOUNTER 2021-12-22 08:20 | Emergency (ER) | payer MEDICARE, SELFPAY ==
[2021-12-22 08:21] VITALS: BP 158/84; PULSE 87; RESP 17; TEMP 36.7; O2SAT 100; BMI 28.4
[2021-12-22] MEDS: 0.9% Normal Saline 1,000 ML 1000 ML IV ×2 (09:00→10:30)
[2021-12-22] MEDS: Ondansetron 4 MG/2 ML Vial IV (09:00)
--- NOTE | 2021-12-22 09:07 | EDS_ITS ---
HPI HPI - GI History of Present Illness Chief Complaint: Nausea/Vomiting Detail of Chief Complaint: Nausea and vomiting that started at 0230 Informant: patient Abdominal Pain/Flank Pain Onset: Hours Context: Sudden Onset Timing: Intermittent Location: RUQ and LUQ Current Severity: Mild Maximum Severity: Mild Worsened by: Nothing Relieved by: Nothing Nausea/Vomiting/Emesis GI Symptom: Positive for Nausea and Vomiting Onset: Hours Quality: Negative for Nonbilious, Blood streaks, Coffee ground and Hematemesis Severity: Moderate Episodes: 7 Diarrhea/Melena/Hematochezia GI Symptom: Negative for Diarrhea, Melena and Hematochezia Associated Symptoms Associated Symptoms: Negative for Dysuria, Frequency and Hematuria LMP: Postmenopausal Narrative Narrative: Patient is a 61-year-old woman who appears ill but not toxic. She presents with nausea and vomiting started at 0230. She denies prior history of bowel obstruction. She denies constipation. She denies diarrhea. She denies black or maroon-colored stool. There was no blood or coffee grounds noted in her emesis. She complains of aching which she attributes to the vomiting. She denies constitutional symptoms, HEENT symptoms, cardiovascular or respiratory symptoms. She denies urologic symptoms. Prior similar symptoms: No Recent Illness/Hospitalization: No [facility] Medical History (Updated 12/22/21 @ 11:[address] Mauricio Adler MD) Osteoarthritis Physical exam, pre-employment Home Medications venlafaxine 37.5 mg PO QHS 03/20/16 [History Last Taken 10/24/17 21:00] pantoprazole 40 mg PO DAILY #60 tablet 03/23/16 [Rx Last Taken 10/25/17 07:00] folic acid 1 mg PO DAILY@0800 10/25/17 [History Last Taken 10/25/17 07:00] methotrexate sodium 12.5 mg PO ULRICH 10/25/17 [History Last Taken 10/15/17 09:00] ramipril 10 mg PO BID #0 capsule 10/28/17 [Rx Last Taken Unknown] amlodipine 2.5 mg PO DAILY 01/03/18 [History Last Taken Unknown] tramadol 50 mg tablet 50 mg PO BID PRN 11/29/18 [History Last Taken Unknown] ondansetron 4 mg PO Q8H PRN PRN #6 tab 12/22/21 [Rx Last Taken Unknown] Allergy/AdvReac Type Severity Reaction Status Date / Time adhesive tape Allergy Severe blistering Verified 12/22/21 08:20 BEE STING Allergy Swelling Uncoded 12/22/21 08:20 Family History Other Breast cancer CAD (coronary artery disease) Heart disease Hypertension Surgical History History of appendectomy History of section History of hysterectomy History of total right knee replacement Status post left partial knee replacement Social History (Updated 12/22/21 @ 09:[address] Mauricio Adler MD) household members: spouse Smoking Status: Former smoker alcohol intake: current alcohol intake frequency: holidays/special occasions only substance use type: does not use what type of physical activity do you participate in: walking frequency: 1-2 times per week ROS ROS ED Constitutional Constitutional ED: Denies chills, fever(s), subjective, sweats or weight loss ENT ENT ED: Denies ear pain, rhinorrhea or sore throat Cardiovascular Cardiovascular: Denies chest pain, orthopnea, palpitations or racing heartbeat Respiratory/Chest Respiratory/Chest: Denies cough, dyspnea, dyspnea on exertion or orthopnea Gastrointestinal Gastrointestinal: Reports abdominal pain, nausea and vomiting; Denies constipation, diarrhea or melena Genitourinary Genitourinary ED: Denies dysuria, hematuria or urinary frequency Musculoskeletal Musculoskeletal: Denies arthralgias, back pain or myalgias Integumentary Denies rash Neurologic Neurologic: Denies paresthesias or weakness Hematologic/Lymphatic Hematologic/Lymphatic: Denies easy bleeding or easy bruising EXAM Physical Exam Const Vital Signs: 12/22/21 08:21 12/22/21 10:20 Temperature 98.1 F Temperature Source Temporal Pulse Rate 87 113 H Respiratory Rate 17 20 H Blood Pressure 158/84 H 159/97 H Blood Pressure Mean 108 117 Pulse Ox 100 97 Oxygen Delivery Method Room Air Room Air Positive well nourished and well developed General Appearance ED: well developed and other Patient appears ill but not toxic. ; Negative for NAD or pallor HEENT Reports dry mucous membranes HEENT Narrative: Ears normal. Nares patent. Posterior pharynx out erythema or exudate. normocephalic and atraumatic Mouth ED: Yes dry mucous membranes Mouth: dry mucous membranes Eyes PERRL and EOMs intact bilaterally General Eye ED: Negative for pale conjunctiva or scleral icterus Neck no lymphadenopathy, supple and no JVD Resp normal respiratory effort and clear to auscultation bilaterally Cardio regular rate, regular rhythm, S1 normal heart sound, S2 normal heart sound and no murmurs GI non-tender, non-distended and no masses Auscultation: normoactive bowel sounds and hypoactive bowel sounds Palpation: soft; Negative for hepatomegaly, splenomegaly, mass or pulsatile mass Back/Spine no CVA tenderness Thoracic Spine / Upper Back: Negative for thoracic spinal tenderness Lumbar Spine / Lower Back: Negative for lumbar spinal tenderness Extremity full ROM General Extremety ED: Negative for edema or tenderness General Extremity: Negative for edema Neuro Sensorium / Orientation: alert and oriented to person Motor Exam: strength 5/5 throughout Psych mental status grossly normal Skin no wounds General Skin Exam: Negative for jaundice or pallor Lesions: no lesions Rashes: no rashes MDM MDM MDM Narrative Medical decision making narrative: Patient presents with nausea and vomiting. Clinically she is dehydrated. This most likely represents a viral illness. Since she is 61 years of age and history of hypertension on a diuretic will obtain basic metabolic panels assess renal function, CO2 anion gap. 1 L of normal saline was ordered. Antiemetic was ordered. Will reassess in 30 to 60 minutes. Patient was reassessed at 1013. She still feels nauseous. She received Zofran 10 minutes prior to my evaluation. 250 cc of the 1 L has infused. Patient was reassessed at 0930. She still complains of nausea with no improvement. Reglan was ordered. Patient was reassessed at 1011. Patient's nausea has improved after IV Reglan. She still has not urinated. A second liter of normal saline was ordered. Patient was reassessed at 1144. She looks better she feels better. She states she has urge to urinate. She will be discharged to home. Lab Data Attestation: I reviewed the patient's lab results. Lab results narrative: Electrolyte panel is unremarkable. Labs: Laboratory Results - last 24 hr 12/22/21 09:00 Sodium 135 L Potassium 4.3 Chloride 97 L Carbon Dioxide 32.0 Anion Gap 6 BUN 16 Creatinine 0.78 Estim Creat Clear Calc 67.06 Est GFR (MDRD) Af Amer 97 Est GFR (MDRD) Non-Af 80 BUN/Creatinine Ratio 20.5 H Glucose 104 Calcium 9.7 Discharge Plan Triage Chief Complaint: Nausea/Vomiting ED Provider: Mauricio Adler Dx/Rx/DC Orders Clinical Impression: Nausea & vomiting, Dehydration, moderate Instructions: ED Vomiting (Adult) Prescriptions: New ondansetron [ondansetron] 4 MG tablet 4 mg PO Q8H PRN PRN (Reason: Nausea) Qty: 6 RF: 0 No Action tramadol 50 mg tablet 50 mg PO BID PRN (Reason: BACK PAIN) RF: 0 venlafaxine 37.5 MG tablet 37.5 mg PO QHS RF: 0 pantoprazole 40 MG tablet 40 mg PO DAILY Qty: 60 RF: 0 methotrexate sodium 2.5 MG tablet 12.5 mg PO ULRICH RF: 0 folic acid 1 MG tablet 1 mg PO DAILY@0800 RF: 0 ramipril 10 MG capsule 10 mg PO BID Qty: 0 RF: 0 amlodipine 5 MG tablet 2.5 mg PO DAILY RF: 0 Primary Care Provider: Hernandez Mosley Chi Referrals: Hernandez Mosley Chi, MD [Primary Care Provider] - 1-2 Days if not improving Disposition Disposition: Home, Self Care
[2021-12-22 09:22] LABS: Anion Gap 6 (5-15); BUN 16 mg/dL (7-18); BUN/Creat Ratio 20.5 RATIO (10-20); Calcium,Total 9.7 mg/dL (8.5-10.1); Chloride 97 mmol/L (98-107); Creatinine, Serum 0.78 mg/dL (0.55-1.02); EST Glomerular Filtration Rate 80 mL/min (>60); Est Glom Filt Rate - Afr Amer 97 mL/min (>60); Estimated Creatinine Clearance 67.06 ml/min; Glucose 104 mg/dL (74-106); Potassium 4.3 mmol/L (3.5-5.1); Sodium Level 135 mmol/L (136-145)
[2021-12-22] MEDS: Metoclopramide 10 MG/2 ML Vial 5 MG IV (09:47)
[2021-12-22 10:20] VITALS: BP 159/97; PULSE 113; RESP 20; O2SAT 97
[2021-12-22 11:57] VITALS: RESP 16
== END 2021-12-22 11:58 | disposition home or self-care (01) ==
PROVIDERS: Emergency Provider Emergency Medicine; PCP Family Medicine Geriatric Medicine; Visit Provider Emergency Medicine
DX: R11.2 Nausea with vomiting, unspecified (principal); E86.0 Dehydration; Z79.899 Other long term (current) drug therapy; Z87.891 Personal history of nicotine dependence
CPT/HCPCS: 80048; 96361; 96374; 96375; 99282; J7030; A4216; J2405

== ENCOUNTER → 2022-03-09 | Outpatient (CLI) | payer MEDICARE, SELFPAY | END | disposition home or self-care (01) | LOC: POLAB3 09:11 | PROVIDERS: PCP Family Medicine Geriatric Medicine; Visit Provider Family Medicine Geriatric Medicine | DX: I10 Essential (primary) hypertension (principal); E55.9 Vitamin D deficiency, unspecified | CPT/HCPCS: 36415; 80053; 82306; 84443 ==

== ENCOUNTER → 2022-06-09 | Outpatient (CLI) | payer MEDICARE, SELFPAY ==
--- NOTE | 2022-06-09 10:45 | MRI_ITS ---
STUDY: MRI LUMBAR SPINE WITHOUT CONTRAST REASON FOR EXAM: Female, 62 years old. ARTHROPATHY TECHNIQUE: Standardized fat and water weighted pulse sequences were obtained in the sagittal and axial planes. COMPARISON: MRI lumbar spine without contrast 11/26/2018. FINDINGS: T10-T11: (Sagittal only). Schmorl''s nodes in the vertebral endplates. Minimal ventral epidural defect due to small posterior bulging annulus. Normal central canal and bilateral intervertebral neural foramina. T11-T12: (Sagittal). Schmorl''s node in the T11 inferior endplate. Normal T12 superior endplate. Normal disc height, hydration and morphology. Normal central canal and bilateral intervertebral neural foramina. T12-L1: (Sagittal only). Normal endplates. Normal disc height, hydration and morphology Normal central canal and bilateral intervertebral neural foramina. Normal lumbar lordosis. There is no substantial scoliosis. Normal conus medullaris that terminates at the lower T12 vertebral body level. L1-2: Normal endplates. Normal disc height, hydration and morphology. Normal bilateral facet joints. Normal central canal and bilateral lateral recesses. Normal bilateral intervertebral neural foramina. L2-3: Normal endplates. Normal disc height, hydration and morphology. Normal bilateral facet joints. Normal central canal and bilateral lateral recesses. Normal bilateral intervertebral neural foramina. L3-4: Normal endplates. Mild disc space narrowing. Minimal ventral extra defect due to small posterior bulging annulus is unchanged. Mild bilateral degenerative facet arthropathy. Normal central canal and bilateral lateral recesses. Normal bilateral intervertebral neural foramina. L4-5: Modic type II degenerative vertebral marrow fat infiltration secondary to vertebral endplates. Pronounced disc space narrowing. Minimal ventral extra defect due to bone spur is unchanged. No significant facet arthropathy. Normal central canal and bilateral lateral recesses. Mild stenosis of the bilateral intervertebral neural foramina are unchanged. L5-S1: Normal L5 inferior endplate. Schmorl''s node in the anterior S1 superior endplate. Normal disc height, hydration and morphology. No significant facet arthropathy. Normal central canal and bilateral lateral recesses. Normal bilateral intervertebral neural foramina. Normal visualized sacral ala. Normal visualized paraspinous soft tissue structures. MRI/Spine Lumbar (Routine) IMPRESSION: 1. No MRI evidence of lumbar extruded disc fragment or nerve root displacement. 2. Pronounced L4-L5 disc space narrowing and mild stenosis of the bilateral intervertebral neural foramina are unchanged. 3. No significant interval change when compared to 11/26/2018. Electronically Signed: Nimesh Ferro MD at 14:35 EST ,
== END | disposition home or self-care (01) ==
PROVIDERS: PCP Family Medicine Geriatric Medicine; Referring Provider Nurse Practitioner Family; Visit Provider Nurse Practitioner Family
DX: M46.96 Unspecified inflammatory spondylopathy, lumbar region (principal); M51.37 Other intervertebral disc degeneration, lumbosacral region; M54.17 Radiculopathy, lumbosacral region; M47.817 Spondylosis without myelopathy or radiculopathy, lumbosacral region; M48.07 Spinal stenosis, lumbosacral region
CPT/HCPCS: 72148

== ENCOUNTER → 2022-08-04 | Outpatient (CLI) | payer MEDICARE, SELFPAY ==
[2022-08-04 15:52] LABS: Absolute Lymphocyte Count 2.41 X10^3/uL (0.83-4.51); Absolute Neutrophil Count 4.5 X10^3/uL (2.0-7.7); Basophil# 0.06 X10^3/uL; Basophil% 0.8 % (0-1); Eosinophil# 0.05 X10^3/uL; Eosinophils% 0.6 % (0-5); Hematocrit 40.5 % (37-47); Hemoglobin 13.7 g/dL (12.0-15.0); Lymphocyte # 2.41 X10^3/ul (0.83-4.51); Lymphocyte % 30.9 % (19-41); Mean Corp Hgb Conc 33.8 g/dL (32-36); Mean Corpuscular Hgb 31.4 pg (27.0-32.0); Mean Corpuscular Volume 92.9 fL (81-99); Mean Platelet Vol. 10.3 fl (6.2-12.0); Monocyte# 0.71 X10^3/uL; Monocyte% 9.1 % (0-10); NRBC Flagged by Analyzer 0 % (0-5); Neutrophil # 4.54 X10^3/uL (2.7-7.7); Neutrophil % 58.2 % (47-70); Platelet Count 337 K/mm3 (150-450); RBC Distribution Width CV 12.6 % (11.6-14.6); RBC Distribution Width SD 43.2 fl (35.1-43.9); Red Blood Count 4.36 M/mm3 (4.2-5.4); White Blood Count 7.8 K/mm3 (4.4-11.0)
[2022-08-04 16:02] LABS: Prothrombin Time (Protime)PT. 13.2 SECONDS (11.7-14.9)
[2022-08-04 16:28] LABS: ALB/GLOB Ratio 1.1 RATIO (0.9-2.4); AST(SGOT) 22 U/L (15-37); Alanine Aminotransfer ALT/SGPT 34 U/L (13-56); Albumin, Serum 4.1 g/dL (3.2-5.0); Alkaline Phosphatase 98 U/L (45-117); Anion Gap 4 (5-15); BUN 11 mg/dL (7-18); BUN/Creat Ratio 15.2 RATIO (10-20); Calcium,Total 9.3 mg/dL (8.5-10.1); Chloride 101 mmol/L (98-107); Cholesterol 246 mg/dL (200); Creatinine, Serum 0.72 mg/dL (0.55-1.02); EST Glomerular Filtration Rate 87 mL/min (>60); Est Glom Filt Rate - Afr Amer 106 mL/min (>60); Globulin 3.7 g/dL (2.2-4.2); Glucose 80 mg/dL (74-106); High Density Lipoprotein 82 mg/dL; Potassium 3.5 mmol/L (3.5-5.1); Protein, Total 7.8 g/dL (6.4-8.2); Sodium Level 136 mmol/L (136-145); Thyroid Stim Hormone (TSH) 0.91 uIU/mL (0.358-3.74); Triglycerides 143 mg/dL; Very Low Density Lipoprotein 29 mg/dL (5-40)
== END | disposition home or self-care (01) ==
LOC: POLAB3 13:34
PROVIDERS: PCP Family Medicine Geriatric Medicine; Visit Provider Family Medicine Geriatric Medicine
DX: R53.83 Other fatigue (principal); E78.5 Hyperlipidemia, unspecified; V70.0XXA Driver of bus injured in collision with pedestrian or animal in nontraffic accident, initial encounter
CPT/HCPCS: 36415; 80053; 80061; 84443; 85025; 85610

== ENCOUNTER → 2022-08-09 | Outpatient (CLI) | payer MEDICARE, SELFPAY ==
[2022-08-11 11:00] LABS: Magnesium 2.1 mg/dL (1.6-2.6)
[2022-08-11 11:29] LABS: HIV - WCH Non-Reactive (Nonreactive); Hepatitis B Surface Antibody Reactive; Hepatitis C Antibody Non-Reactive (Nonreactive)
[2022-08-12 12:52] LABS: Hepatitis A AB, Total Negative (Negative)
== END | disposition home or self-care (01) ==
PROVIDERS: Anesthesiology; PCP Family Medicine Geriatric Medicine; Referring Provider Orthopaedic Surgery; Visit Provider Orthopaedic Surgery
DX: Z01.818 Encounter for other preprocedural examination (principal)
CPT/HCPCS: 36415; 83735; 86703; 86706; 86708; 86803; 87081

== ENCOUNTER → 2022-09-07 | Outpatient (CLI) | payer MEDICARE, SELFPAY ==
--- NOTE | 2022-09-07 10:41 | BI_ITS ---
MAMMOGRAPHY - BILATERAL SCREENING REASON FOR EXAM: Female, 62 years old. Routine annual screening examination. PERTINENT HISTORY: Mother with breast cancer. TECHNIQUE: Digital bilateral breast niharika (3D mammographic acquisition) in the CC and MLO projections. 2-D mediolateral oblique (MLO) and craniocaudad (CC) views of both breasts were obtained. CAD: Full Field Digital Mammography with Computer Added Detection was performed. COMPARISON: Comparison is made with prior study dated 07/14/2021 and 10/02/2017. FINDINGS: Breast Composition: The breasts are heterogeneously dense, which may obscure small masses. There are no dominant masses or suspicious calcifications. No other significant abnormalities are identified. There has been no significant change since the prior study. BI/SCRN MAMM (CAD)W/NIHARIKA BILAT IMPRESSION: Stable bilateral screening mammogram. Yearly follow-up mammogram recommended. (A) ASSESSMENT CATEGORY: BIRADS Category 1: Negative. A letter regarding these results will be sent to the patient by the facility within 30 days. Approximately 10% of breast cancers are not detected by mammography. A normal mammogram should not delay biopsy of a clinically suspicious abnormality. [id number] Electronically Signed: Getachew Wayne MD at 13:04 EST ,
== END | disposition home or self-care (01) ==
PROVIDERS: PCP Family Medicine Geriatric Medicine; Visit Provider Family Medicine Geriatric Medicine
DX: Z12.31 Encounter for screening mammogram for malignant neoplasm of breast (principal)
CPT/HCPCS: 77063; 77067

== ENCOUNTER → 2022-09-13 | Outpatient (CLI) | payer MEDICARE, SELFPAY ==
[2022-09-13 13:23] LABS: Absolute Lymphocyte Count 2.17 X10^3/uL (0.83-4.51); Absolute Neutrophil Count 3.7 X10^3/uL (2.0-7.7); Basophil# 0.05 X10^3/uL; Basophil% 0.8 % (0-1); Eosinophil# 0.07 X10^3/uL; Eosinophils% 1.1 % (0-5); Hematocrit 45.4 % (37-47); Hemoglobin 14.7 g/dL (12.0-15.0); Lymphocyte # 2.17 X10^3/ul (0.83-4.51); Lymphocyte % 32.6 % (19-41); Mean Corp Hgb Conc 32.4 g/dL (32-36); Mean Corpuscular Hgb 30.4 pg (27.0-32.0); Mean Corpuscular Volume 93.8 fL (81-99); Mean Platelet Vol. 10.5 fl (6.2-12.0); Monocyte# 0.68 X10^3/uL; Monocyte% 10.2 % (0-10); NRBC Flagged by Analyzer 0 % (0-5); Neutrophil # 3.67 X10^3/uL (2.7-7.7); Platelet Count 344 K/mm3 (150-450); RBC Distribution Width CV 12.6 % (11.6-14.6); RBC Distribution Width SD 43.8 fl (35.1-43.9); Red Blood Count 4.84 M/mm3 (4.2-5.4); White Blood Count 6.7 K/mm3 (4.4-11.0)
[2022-09-13 13:45] LABS: Vitamin D,25 Hydroxy 36.3 ng/mL
[2022-09-13 13:47] LABS: ALB/GLOB Ratio 1.1 RATIO (0.9-2.4); AST(SGOT) 17 U/L (15-37); Alanine Aminotransfer ALT/SGPT 28 U/L (13-56); Albumin, Serum 4.3 g/dL (3.2-5.0); Alkaline Phosphatase 100 U/L (45-117); Anion Gap 8 (5-15); BUN 15 mg/dL (7-18); BUN/Creat Ratio 17.5 RATIO (10-20); Calcium,Total 9.6 mg/dL (8.5-10.1); Chloride 103 mmol/L (98-107); Cholesterol 242 mg/dL (200); Creatinine, Serum 0.86 mg/dL (0.55-1.02); EST Glomerular Filtration Rate 72 mL/min (>60); Est Glom Filt Rate - Afr Amer 87 mL/min (>60); Globulin 3.8 g/dL (2.2-4.2); Glucose 106 mg/dL (74-106); High Density Lipoprotein 86 mg/dL; Potassium 3.9 mmol/L (3.5-5.1); Protein, Total 8.1 g/dL (6.4-8.2); Sodium Level 139 mmol/L (136-145); Thyroid Stim Hormone (TSH) 1.27 uIU/mL (0.358-3.74); Triglycerides 76 mg/dL; Very Low Density Lipoprotein 15 mg/dL (5-40)
== END | disposition home or self-care (01) ==
LOC: POLAB3 10:29
PROVIDERS: PCP Family Medicine Geriatric Medicine; Visit Provider Family Medicine Geriatric Medicine
DX: I10 Essential (primary) hypertension (principal); E55.9 Vitamin D deficiency, unspecified
CPT/HCPCS: 36415; 80053; 80061; 82306; 84443; 85025

== ENCOUNTER → 2022-09-23 | Outpatient (CLI) | payer MEDICARE, SELFPAY | END | disposition home or self-care (01) | LOC: PSN 13:59 | PROVIDERS: PCP Family Medicine Geriatric Medicine; Referring Provider Family Medicine Geriatric Medicine; Visit Provider Family Medicine Geriatric Medicine | DX: R68.83 Chills (without fever) (principal) | CPT/HCPCS: 87635; 87804; 87807; C9803; U0003; U0005 ==

== ENCOUNTER 2022-10-11 05:38 | Inpatient (IN) | payer MEDICARE, SELFPAY ==
[2022-10-05 12:52] LABS: Magnesium 1.8 mg/dL (1.6-2.6)
--- NOTE | 2022-10-10 10:34 | PCM.HP.BLA ---
History and Physical Addendum MR#: [id number] Acct: [id number] Name:JUDY ROMERO Rep #: [id number] : 1960 ? ? Provider: Dr. Reyes Damian DO Age/Sex:? 62/F ? ? Location: [facility] [place] Status: Signed Intake Vital Signs ? 12/23/2207:21 06/24/2210:35 Height 5 ft 4 in 5 ft 4 in Intake Visit Reasons:?LUMBER SPINE Is patient in pain?: Yes Pain scale (1-10): 7 Allergies adhesive tape Allergy (Severe, Verified 06/24/22 10:35) blisteringbee venom protein (honey bee) Allergy (Verified 06/24/22 10:35) Swelling Medications venlafaxine 37.5 mg tablet 37.5 mg PO QHS depression 03/20/16 [History Confirmed 06/24/22] pantoprazole 40 mg tablet,delayed release 40 mg PO DAILY #60 TABLETS 03/23/16 [Rx Confirmed 06/24/22] folic acid 1 mg tablet 1 mg PO DAILY@0800 supplement 10/25/17 [History Confirmed 06/24/22] methotrexate sodium 2.5 mg tablet 12.5 mg PO ULRICH psoriatic arthritis 10/25/17 [History Confirmed 06/24/22] ramipril 10 mg capsule 10 mg PO BID #0 caps 10/28/17 [Rx Confirmed 06/24/22] amlodipine 5 mg tablet 2.5 mg PO DAILY 01/03/18 [History Confirmed 06/24/22] tramadol 50 mg tablet 50 mg PO BID PRN BACK PAIN 11/29/18 [History Confirmed 06/24/22] ondansetron 4 mg disintegrating tablet 4 mg PO Q8H PRN PRN Nausea #6 tabs 12/22/21 [Rx Confirmed 06/24/22] PFSH Medical History?(Updated 06/24/22 @ 11:[address] Reyes Damian, ) Osteoarthritis Physical exam, pre-employment Surgical History? History of appendectomy History of section History of hysterectomy History of total right knee replacement Status post left partial knee replacement Family History? Other Breast cancer CAD (coronary artery disease) Heart disease Hypertension Social History? household members:? spouse Smoking Status:? Former smoker alcohol intake:? current alcohol intake frequency: holidays/special occasions only substance use type:? does not use what type of physical activity do you participate in:? walking frequency:? 1-2 times per week HPI LUMBER SPINE Details: Parts of this documentation were recorded by a scribe, this documentation accurately reflects the service provided and the decisions made by me, Dr. Reyes Damian, DO JUDY TESFAYE is a 62 year old F here today for lower back pain that radiates into her hips and down her right leg. States that she does have some tingling that goes down the side of her right leg. States that she has had back pain for 5 years. She was referred by Dr. Quiñonez and has been seeing him for 4 years and has an MRI in the system which was done on 06/09/22. States that walking increases her pain and that she avoids lifting things because that also increases her pain. States that with Dr. Quiñonez she has gotten injections and ablations done which were helping in the beginning and were helping for 6-12 months. States that theses last few months she has had an ablations and a caudal injection but they weren't very helpful. ? Judy is a delightful young lady 62 years old that has chief complaint of low back pain.? It also radiates out into the buttocks on both sides.? She has had it about 5 or 6 years.? She has been seeing Dr. Quiñonez as mentioned above for about 4 years.? Activity increases her pain lifting increases her pain working in her garden increases her pain.? When she for started seeing Dr. Quiñonez she got good relief for a long time that is months however now it is reached diminishing returns.? She works 2 or 3 times a week about 8 hours a day but in doing so she has to stand and walk the whole time.? This also aggravates her back. On examination she has excellent motor strength of all the major muscle groups of both lower extremities.? She has physiologic patella and Achilles reflexes bilaterally.? She has no long tract signs.? Clonus is absent Babinski's are downgoing.? She can easily stand on her toes and stand on her heels without difficulty.? She has pain with both extension and flexion of her lumbar spine. Plain x-rays taken in the office demonstrate that she has a severely decreased disc space at L4-5.? The MRI scan that was done recently demonstrates the same thing however there is not any significant pressure on any nerve root that I can tell.? She has no true foraminal stenosis. We discussed treatment possibilities.? She is already tried therapy of course and that did not help her as expected.? We talked about surgical intervention.? I explained to her that it would be elective on her part.? It would require 360 degree fusion at the L4-5 level.? I explained to her how it would be done and the rationale behind it.? She will go home and think about it and discuss it with her and family.? I will see her on a as needed basis. Coding Level of Care Code Off vis,new,level 3 Diagnoses DDD (degenerative disc disease), lumbar? M51.36
[2022-10-11] VITALS (15 sets, daily range): BP systolic 115–147; BP diastolic 74–91; PULSE 72–94; RESP 14–18; TEMP 36.1–37.1; O2SAT 96–99; BMI 27.5; BMI 27.4
[2022-10-11] MEDS: Magnesium 2 GM for ERAS IV (06:17)
[2022-10-11] MEDS: Lactated Ringers 1,000 ML 15 ML IV (06:17)
--- NOTE | 2022-10-11 06:30 | RAD_ITS ---
STUDY: X-RAY - LUMBAR SPINE REASON FOR EXAM: Female, 62 years old. 360 LUMBAR FUSION TECHNIQUE: 1 view(s) of the lumbar spine were obtained. COMPARISON: None FINDINGS: Single lateral view was obtained. The metallic marker is seen along the anterior aspect of the L4-L5 disc space level. RAD/Spine 1 View Any Level IMPRESSION: The metallic marker is seen along the anterior aspect of the L4-L5 disc space level. Electronically Signed: Getachew Wayne MD at 12:46 EDT ,
[2022-10-11] MEDS: Insulin Lispro 100 UNIT/ML INSULN.PEN SC (06:32)
[2022-10-11] MEDS: Acetaminophen 500 MG Tablet 1000 MG PO ×2 (06:38→18:29)
[2022-10-11 06:56] LABS: Bedside Glucose 209 mg/dL (74-106)
--- NOTE | 2022-10-11 07:30 | DISC_PTH ---
PATIENT: VIJI TESFAYE LOC: MS3 U#:[id number] AGE/SX: 62/F [place] [facility] [place]: Dr. Reyes Damian DO : 1960 BED: 1 DIS: 10/15/2022 SPEC #: [id number] RECD: 10/11/22 16:57 STATUS: RUSTY REJoe #: [id number] RADHA: 10/11/22 07:[address]: Reyes Damian DEPT: SURGICAL PATHOLOGY RECD BY: Kellie Chen ENTERED: 10/12/22 08:20 SP TYPE: DISC OTHR DR: MD Dr. Lydia Forrest MD Dr. Tai Chi Kwok, MD Tissues: Intervertebral disc, NOS Procedures: Surgery Specimen Level III HEADER OPERATION: ERAS, 360 lumbar fusion, L4 and L5 PRE-OP DIAGNOSIS: Degenerative disc disease, lumbar TISSUE SUBMITTED: Disc L4 and L5 MICROSCOPIC DIAGNOSIS Intervertebral disc, L4-L5, discectomy: Fragments of intervertebral disc with degenerative change. Polarizable crystals consistent with pseudogout. AM:bobbi 10/13/2022 MICROSCOPIC DESCRIPTION Slides are reviewed. GROSS DESCRIPTION Received in fixative is one container labeled with the patient's name and designated disc L4 and L5. The specimen consists of multiple irregular fragments of grossman, indurated tissue that in aggregate measure 5.0 x 4.0 x 1.5 cm. Heel Attacher tissue is submitted in two cassettes. / SJ:bobbi 10/12/2022 TC:5 CPT: 33116
[2022-10-11] MEDS: Cefazolin 2 GM in 0.9% Normal Saline 100 ML IV (07:54)
--- NOTE | 2022-10-11 10:13 | RAD_ITS ---
STUDY: X-RAY - LUMBAR SPINE REASON FOR EXAM: Female, 62 years old. 360 LUMBAR FUSION -- IMAGE 2 TECHNIQUE: 1 view(s) of the lumbar spine were obtained. COMPARISON: None FINDINGS: The patient is status post anterior fusion with screw and plate fixation device at the L4-L5 level with prosthetic disc placement. RAD/Spine 1 View Any Level IMPRESSION: Status post anterior fusion at the L4-L5 level. Electronically Signed: Getachew Wayne MD at 12:45 EDT ,
[2022-10-11] MEDS: THROMBIN (RECOMBINANT) 20,000 UNIT VIAL 20000 UNIT TOPICAL (11:07)
[2022-10-11] MEDS: Heparin 10,000 UNITS/10 ML Vial 10000 UNITS ×2 (11:25)
--- NOTE | 2022-10-11 11:44 | RAD_ITS ---
INDICATION: 360 FUSION -- IMAGE 3 EXAMINATION/TECHNIQUE: X-RAY - XR Spine Lumbar 1 View COMPARISON: None. FINDINGS: Surgical probe projects in the interspinous region at L4-5. At this level there is anterior plate with transfixing screws and interbody fusion device. RAD/Spine 1 View Any Level IMPRESSION: Intraoperative lateral image demonstrates L4-5 fusion detailed above. Electronically Signed: Marshall Roldan MD, JOYA at 14:44 EDT ,
--- NOTE | 2022-10-11 11:48 | PCM.OPRPT ---
Report of Operation Description of Surgical Findings:: Preop diagnosis: Advanced degenerative disc disease L4-5 Postop diagnosis: The same Procedures: #1 anterior lumbar interbody fusion L4-5 CPT code 34252 #2 anterior spine plate CPT code 34355/59 #3 insertion of titanium cage L4-5 CPT code 91973 #4 bone marrow aspirate CPT code 42128 #5 use of allograft bone CPT code 47001 Co-surgeons: Dr. Damian and Dr. Jones Director Of Software Engineering: Yessenia Clarke NP Anesthesia: General endotracheal by [facility] EBL: Less than 100 cc Drains: None Complications: None Procedure: Patient was taken to the OR where she was placed under general endotracheal anesthesia on the OR table in the supine position. A Gonzalez catheter was inserted. Neuro monitoring placed her leads on the patient. The abdomen was then prepped and draped in standard fashion. The surgical approach is then described in Dr. Jones's operative summary. Once he had good access to L4-5 a intraoperative x-ray was taken to confirm that it was the correct level. I then cut the very narrow anterior annulus with a 10 blade. She had a severely decreased disc space. The small pituitary would not go in the space. I used 1/2 inch osteotome to start stretching the ligaments between the 2 vertebra. I then used a kenzie bur to open the space. This was all the way back to the posterior portion of the vertebra. This was a careful long process. I would bur followed by the instillation of cold saline and this was done repeatedly until the space was enlarged all the way back to near the posterior annulus. I used cautery to elevate the anterior longitudinal ligament off of the bottom of L4 and the top of L5. I then used double-action rongeurs to remove the anterior osteophytes at both levels. Finally the bur was used to smooth it out. Once I released it all the way to the back the spacing was easier and there was a lot more give between the vertebra. We started with a 10 mm small cage and we moved up to a 12 mm which was a size that we eventually used. We used a 10 mm then a 12 mm broach to broach the space. We then loaded the 12 mm cage with allograft that was processed in the way to make a sponge. This was then soaked in the patient's stem cells. Note that at the beginning of the case we used a Jamshidi needle on the left iliac crest obtained 60 cc of bone marrow aspirate. This was handed off to the health information technician who in turn was able to give us back 3 to 4 cc of concentrated stem cells. I then tamped the cage with the stem cell soaked bone into place. We then used a 27 mm anterior plate held in the center and placed 4 screws into it to end his L4 to into L5 this was done by using a tamp to punch the hole followed by insertion of 30 mm screws at all 4 points. The locking mechanisms were then activated on the plate. This was then seen on the lateral projection with an x-ray and was found to be quite satisfactory. The closure was then described in Dr. Jones's operative summary. This is the end of operative summary on Judy Reagan. This is Dr. Damian dictating.
--- NOTE | 2022-10-11 13:13 | PCM.OPRPT ---
Report of Operation Date of Procedure: 10/11/22 Pre-Operative Diagnosis: L4-L5 degenerative disc disease Post-Operative Diagnosis: same Surgery/Procedure Performed:: L4-L5 anterior lumbar fusion Description of Surgical Findings:: Co-surgeons: Karen Damian Type of Anesthesia: General Estimated Blood Loss (mL): 50 Description of Procedure: HPI: Patient is a 62-year-old female with L4-L5 degenerative disc disease felt to be appropriate for anterior approach interbody fusion by Dr. Damian. Vascular surgery assistance is requested for exposure, mobilization of abdominal vasculature. Patient does have prior history of , hysterectomy, open appendectomy though none of these preclude anterior approach. Description of procedure: Upon obtaining informed consent and verification correct patient procedure site patient taken to the operating room where she was placed under general anesthesia. She was then positioned prepped and draped in usual sterile fashion and timeout was performed. Transverse incision was made just inferior to the umbilicus in the left lower quadrant and Bovie electrocautery used to dissect through subcutaneous tissue. Self-retaining retractor was then put in position and further dissection carried to the level of fascia. The fascia was incised in transverse orientation with relaxing incisions at the medial lateral aspects. We encountered a significant amount of scar between the rectus muscle and the anterior sheath, as well as the rectus muscle and the peritoneum inferior to the posterior sheath edge. This required some further dissection with Bovie to fully mobilize the rectus muscle and unfortunately there was fusion of the peritoneum to the posterior scar which could not be dissected without entering the peritoneum. The peritoneum was very thin at this location also, and repair sutures with Vicryl were not able to hold. Given the location we were able to proceed without any alteration in plans for exposure. We then mobilized the rectus muscle circumferentially and retracted it medially. Blunt dissection was then used to develop plane anterior to the peritoneum below the posterior sheath, and the abdominal contents were mobilized to the midline. Peritoneum was then bluntly dissected off the posterior sheath superiorly and the posterior sheath incised vertically with scissors. Once the remainder of the peritoneal contents had been mobilized and retracted medially to midline a wet lap was placed to maintain our position. We then retracted the rectus muscle laterally and the Omni retractor was brought onto the field. Renal retractors were then secured in the position exposing the left iliac artery and vein as well as the inferior portion of the abdominal aorta. Sharp dissection was used to dissect the aorta and iliac artery along further midline retraction. The iliolumbar vein was identified, ligated with silk ties and medium clips, and divided. The iliac vein was then retracted further toward midline granting exposure to the midline lumbar spine. After some further repositioning of the self-retaining retractors we had satisfactory visualization of the L4-L5 disc space with adequate room for Dr. Damian to perform his discectomy and fusion. At this point Dr. Damian scrubbed in and performed his portion of the procedure which she will dictate separately. I remained scrubbed to aid in repositioning of retractors as well as for some manual retraction of the abdominal vessels. After completion of the instrumentation the field was inspected for hemostasis and the iliac artery and vein inspected. There continued to be satisfactory pulse in the iliac artery and both were free of any injury. We then allowed the retroperitoneal structures to return to their [place] position inspecting for hemostasis as we withdrew our retractors. Once all of the peritoneal contents were returned to their original position we again inspected the anterior peritoneal defect, and again there seem to be no sufficient peritoneum for repair so it was left as defect. The anterior sheath was then closed with running PDS suture and the wound irrigated. Incision was then closed with 3-0 Vicryl 4-0 Monocryl and Dermabond for the skin. At this point Dr. Damian transition to the posterior approach instrumentation which he will dictate separately.
--- NOTE | 2022-10-11 14:41 | PCM.OPRPT ---
Report of Operation Description of Surgical Findings:: Preoperative diagnosis: Severe degenerative disc disease L4/5 Postoperative diagnosis: The same Procedures: #1 posterior lumbar fusion L4-5 CPT code 18081 #2 internal nonsegmental fixation L4-5 CPT code 62993 #3 allograft CPT code 72378 Surgeon: Dr. Damian Cable Tool Driller: Yessenia Clarke NP Anesthesia: General endotracheal by [facility] associate professor of medicine Estimated blood loss less than 100 cc Drains: None Complications: None Procedure: Once the anterior procedure was done and the abdomen was closed we then turned the patient over onto the her prone position on the Omid frame. Great care was taken to protect her bony prominences, her ulnar nerves of both elbows, rectal plexus bilaterally, and her facial features and neck. The back was then prepped and draped standard fashion. The midline skin incision centered over L L4 5 subcutaneous tissues were incised length of skin incision. I opened the lumbar fascia first to the left of the spinous processes elevated the paravertebral muscles off the lamina of 4 moved to exactly the lamina 5 and put a marker in place that demonstrated we were at L5-S1 we simply moved up 1 and took another x-ray which demonstrated we were indeed at L4-5. This was confirmed by radiologist. This was then marked we continued elevated paravertebral muscles off the lamina of 4 the lamina 5 and out over the facets. This was done on the opposite side that is on the right side in the same exact fashion. Thorough irrigation was carried out we then dropped to the super slide retractors in place and began preparations for the fusion and note that we remove the interspinous ligament between the spinous process of L4 and the spinous process of L5 we then used a kenzie bur to bur the lamina for in the lamina 5 on both sides. This is for purposes of course of the fusion. We then put the SPARC allograft bone in place on both sides. Note that it was previously soaked in the patient's own stem cells that were left over from the anterior portion of the procedure. We then put further half of strip of allograft on each side followed by the insertion of the H graft. This was then tamped into place. The internal fixation device was then applied and once in place the locking mechanisms were activated. Thorough irrigation was carried out every 10 to 50 minutes in the course of the case. We felt there was no need for a drain so we simply close lumbar fascia using [id number] suture with #1 Vicryl followed by closure of subcutaneous tissues with 2-0 Vicryl and 0 Vicryl in layers in interrupted fashion and finally the skin was approximated using skin clips. Sterile dressings were then applied patient was then recovered in the OR and moved to her hospital bed and then taken to recovery in satisfactory condition. This is the end of operative summary on Judy Reagan. This is Dr. Damian dictating.
[2022-10-11 15:25] LABS: Bedside Glucose 117 mg/dL (74-106)
[2022-10-11 15:51] LABS: Bedside Glucose 141 mg/dL (74-106)
[2022-10-11] MEDS: Lactated Ringers 1,000 ML 100 ML IV (15:54)
[2022-10-11] MEDS: Cefazolin 1 GM/50 ML BAG IV (18:28)
[2022-10-11] MEDS: Morphine 4 MG/ML Syringe IV ×2 (18:28→22:04)
[2022-10-11] MEDS: 0.9% Saline Lock 10 ML Syringe IV ×2 (18:28→22:04)
--- NOTE | 2022-10-11 19:16 | PCM.PN.HOSP ---
Reason for Visit Reason for Visit: Diagnoses Encounter for other preprocedural examination (10/11/22) Subjective Subjective 62-year-old female presents to the hospital for an elective anterior fusion of her left L4 and L5 secondary to advanced degenerative disc disease. She states that her medical history is otherwise stable. She denies any shortness of breath or chest pain or difficulty ambulating prior to surgery. Surgery appears to have gone well and medicine was consulted for medical management. Objective Data Objective Data Vital Signs: Vital Signs Temp Pulse Resp BP Pulse Ox O2 Del Method O2 Flow Rate 97.9 F 94 18 132/74 H 97 Nasal Cannula 3 10/11/22 18:10 10/11/22 18:10 10/11/22 18:10 10/11/22 18:10 10/11/22 18:10 10/11/22 18:14 10/11/22 18:14 Oxygen Flow Rate (L/min) 3 Oxygen Delivery Method Nasal Cannula Weight: 160 lb Body Mass Index (BMI) 27.4 Intake & Output: Intake and Output for Last 24 Hours 10/10/22 10/11/22 10/12/22 03:59 03:59 03:59 Intake Total 2264 / 2264 Output Total 850 / 850 Balance 1414 / 1414 Lab / Micro Data Labs: Laboratory Results - last 24 hr 10/11/22 06:22: POC Glucose 209 H 10/11/22 09:50: POC Glucose 117 H 10/11/22 15:29: POC Glucose 141 H Radiography Diagnostic Testing: Radiology Impression Spine X-Ray 10/11/22 06:30 IMPRESSION: The metallic marker is seen along the anterior aspect of the L4-L5 disc space level. Electronically Signed: Getachew Wayne MD at 12:46 EDT , Spine X-Ray 10/11/22 10:13 IMPRESSION: Status post anterior fusion at the L4-L5 level. Electronically Signed: Getachew Wayne MD at 12:45 EDT , Spine X-Ray 10/11/22 11:44 IMPRESSION: Intraoperative lateral image demonstrates L4-5 fusion detailed above. Electronically Signed: Marshall Roldan MD, JOYA at 14:44 EDT , Physical Exam Narrative General: Alert, Oriented x3, Cooperative, No apparent distress, still drowsy from anesthesia HEENT: Atraumatic, PERRLA, EOMI, Normocephalic Oral: Moist Mucosa Neck: Supple, No JVD Lungs: Clear to auscultation, Normal air movement, No rhonchi, No wheeze, No rales Cardiovascular: Regular rate, Regular Rhythm, Normal S1, Normal S2, No murmurs Abdomen: Soft, Non Tender, Non-Distended, No Hepato-splenomegaly Extremities: No edema, Capillary Refill Less than 3 Seconds Skin: Dressing intact Musculoskeletal: No Tenderness to Palpation of Joints or Extremities Neurological: Cranial nerves II-XII grossly intact, Motor Exam 5/5 strength throughout, Sensory exam intact to light touch and pain Psych/Mental Status: Normal affect, Appropriate Assessment & Plan Assessment/Plan (1) DDD (degenerative disc disease), lumbar: PLAN: Plan 1. Degenerative disc disease status post anterior lumbar fusion of L4-5 on 10/11/2022 ? Pain management per primary ? PT and OT ? Can resume ropinirole 2. HTN ? Can resume her home Norvasc but will hold her ramipril pending creatinine in the morning, if the creatinine is normal can restart the ramipril tomorrow evening ? Blood sugar is stable next 3. GERD ? Stable ? Continue with PPI 4. Anxiety/depression/alcohol use ? Can resume her home Effexor ? Can place her on a CIWA scale to monitor and if necessary start on medications for her history of alcohol use ? We will continue with her folic acid DVT: SCDs Charges/Coding Visit Charges Inpatient E&M: 39553 Subs Hosp L3
--- NOTE | 2022-10-11 20:27 | NURSING ---
Pt states she is a social drinker. States she drinks one or two beers once a week. Last drink was .
[2022-10-11] MEDS: oxyCODONE 5 MG Tablet PO (20:33)
[2022-10-11] MEDS: amLODIPine 2.5 MG Tablet PO (20:45)
[2022-10-11] MEDS: Venlafaxine HCl 75 MG Tablet 37.5 MG PO (20:47)
[2022-10-11] MEDS: Pramipexole Di-HCl 0.25 MG Tablet PO (20:47)
[2022-10-12] VITALS (10 sets, daily range): BP systolic 120–152; BP diastolic 74–91; PULSE 72–96; RESP 18; TEMP 36.2–38.5; O2SAT 91–98
[2022-10-12] MEDS: Morphine 4 MG/ML Syringe IV ×2 (01:02→05:27)
[2022-10-12] MEDS: 0.9% Saline Lock 10 ML Syringe IV ×5 (01:02→23:00)
[2022-10-12] MEDS: DiphenhydrAMINE 50 MG/ML Syringe 25 MG IV (02:51)
[2022-10-12] MEDS: Cefazolin 1 GM/50 ML BAG IV (02:53)
[2022-10-12] MEDS: Acetaminophen 500 MG Tablet 1000 MG PO ×3 (05:40→22:59)
[2022-10-12] MEDS: diazePAM 5 MG Tablet PO (06:53)
[2022-10-12 07:10] LABS: Absolute Lymphocyte Count 1.46 X10^3/uL (0.83-4.51); Absolute Neutrophil Count 6.8 X10^3/uL (2.0-7.7); Basophil# 0.02 X10^3/uL; Basophil% 0.2 % (0-1); Hematocrit 33.3 % (37-47); Hemoglobin 10.5 g/dL (12.0-15.0); Lymphocyte # 1.46 X10^3/ul (0.83-4.51); Lymphocyte % 15.2 % (19-41); Mean Corp Hgb Conc 31.5 g/dL (32-36); Mean Corpuscular Hgb 30.1 pg (27.0-32.0); Mean Corpuscular Volume 95.4 fL (81-99); Mean Platelet Vol. 10.4 fl (6.2-12.0); Monocyte# 1.23 X10^3/uL; Monocyte% 12.8 % (0-10); NRBC Flagged by Analyzer 0 % (0-5); Neutrophil # 6.81 X10^3/uL (2.7-7.7); Neutrophil % 71.2 % (47-70); Platelet Count 240 K/mm3 (150-450); RBC Distribution Width CV 12.9 % (11.6-14.6); Red Blood Count 3.49 M/mm3 (4.2-5.4); White Blood Count 9.6 K/mm3 (4.4-11.0)
[2022-10-12 07:35] LABS: Anion Gap 6 (5-15); BUN 6 mg/dL (7-18); BUN/Creat Ratio 9.2 RATIO (10-20); Calcium,Total 8.3 mg/dL (8.5-10.1); Chloride 100 mmol/L (98-107); Creatinine, Serum 0.65 mg/dL (0.55-1.02); EST Glomerular Filtration Rate 99 mL/min (>60); Est Glom Filt Rate - Afr Amer 119 mL/min (>60); Estimated Creatinine Clearance 79.48 ml/min; Glucose 96 mg/dL (74-106); Potassium 3.5 mmol/L (3.5-5.1); Sodium Level 135 mmol/L (136-145)
[2022-10-12] MEDS: Folic Acid 1 MG Tablet PO (08:36)
[2022-10-12] MEDS: oxyCODONE 5 MG Tablet PO ×4 (08:36→22:59)
--- NOTE | 2022-10-12 08:55 | CASEMGMT ---
SHAWN JOHNSON Assessment: Face to Face with pt for initial transition planning/care coordination assessment. SHAWN JOHNSON introduced self and role at [facility], pt voices understanding and consents to assessment. Pt is A/O x4 and answers all questions appropriately at this time. Pt lying in bed in no distress. Pt has not been out of bed yet. Care providers, pharmacy, and demographics verified/updated. Admitting Dx: 360 lumbar fusion PCP:Dimitri Specialists: YEN Damian; manuelito Schwab Preferred Pharmacy: [facility] Retail Insurance: [email or web address] Prescription Benefit: yes LNOK: Edmar Reagan, ; George Cole, dtr Living Arrangements: Pt lives with in a single story home with one step to enter through the front with no rail or grab bar. Pt reports she was I in ADL's prior to surgery. Pt denies concerns at home. Transportation: Pt drives self and denies concerns with transportation. Pt will transport pt until she can drive again. DME/HHC/SNF: Pt denies having any DME in the home, she has had HHC in the past but is unsure of which agency provided it. Pt denies SNF stays. Pt states no concerns with going home at time of dc. Therapy to eval pt yet. Discussed DME and provided pt with a verbal local in network list of providers, if pt should need any DME she chooses [facility]. Pt states no further concerns/needs. CM to follow. Advised pt to ask CM if any further question/concerns/needs arise, voices understanding. Pt Goal: Home Plan: Home, follow for DME needs.
[2022-10-12] MEDS: Pantoprazole Sodium 40 MG Tablet PO (09:40)
[2022-10-12] MEDS: Morphine 2 MG/ML Syringe IV (11:53)
--- NOTE | 2022-10-12 13:06 | PN_ITS ---
Subjective Subjective Patient seen and examined. She complained of back pain; she was working with physical therapy. She denied any cough, chest pain, palpitations, dizziness, nausea, vomiting or diarrhea. Review of systems is otherwise negative. Objective Data Objective Data Vital Signs: Vital Signs Temp Pulse Resp BP Pulse Ox O2 Del Method O2 Flow Rate 98.6 F 73 18 138/85 H 98 Room Air 2 10/12/22 11:32 10/12/22 11:32 10/12/22 11:32 10/12/22 11:32 10/12/22 11:33 10/12/22 11:33 10/11/22 20:21 Oxygen Flow Rate (L/min) 2 Oxygen Delivery Method Room Air Weight: 160 lb Body Mass Index (BMI) 27.4 Intake & Output: Intake and Output for Last 24 Hours 10/10/22 10/11/22 10/12/22 23:59 23:59 23:59 Intake Total 3474 / 3474 650 / 650 Output Total 1350 / 1350 2550 / 2550 Balance 2124 / 2124 -1900 / -1900 Lab / Micro Data Result Diagrams: 10/12/22 06:38 10/12/22 06:38 Labs: Laboratory Results - last 24 hr 10/11/22 09:50: POC Glucose 117 H 10/11/22 15:29: POC Glucose 141 H 10/12/22 06:38: WBC 9.6, RBC 3.49 L, Hgb 10.5 L, Hct 33.3 L, MCV 95.4, MCH 30.1, MCHC 31.5 L, RDW Std Deviation 45.0 H, RDW Coeff of Caity 12.9, Plt Count 240, MPV 10.4, Immature Gran % (Auto) 0.600, Neut % (Auto) 71.2 H, Lymph % (Auto) 15.2 L, Burnett % (Auto) 12.8 H, Eos % (Auto) 0.0, Baso % (Auto) 0.2, Absolute Neuts (auto) 6.8, Absolute Lymphs (auto) 1.46, Nucleated RBC % 0 10/12/22 06:38: Sodium 135 L, Potassium 3.5, Chloride 100, Carbon Dioxide 29.0, Anion Gap 6, BUN 6 L, Creatinine 0.65, Estim Creat Clear Calc 79.48, Est GFR (MDRD) Af Amer 119, Est GFR (MDRD) Non-Af 99, BUN/Creatinine Ratio 9.2 L, Glucose 96, Calcium 8.3 L Radiography Diagnostic Testing: Radiology Impression Spine X-Ray 10/11/22 11:44 IMPRESSION: Intraoperative lateral image demonstrates L4-5 fusion detailed above. Electronically Signed: Marshall Roldan MD, JOYA at 14:44 EDT Reading Location ID and State: [facility] / [place] Tel , Service support , Physical Exam Const alert and oriented x3 HEENT normocephalic, head/scalp atraumatic and moist oral mucous membranes Neck supple Lymph Lymphatic: no lymphadenopathy noted and no lymphedema noted Resp normal respiratory effort, normal air movement and clear to auscultation bilaterally Cardio regular rate, regular rhythm, S1 normal heart sound, S2 normal heart sound and no murmurs GI normal to inspection, nondistended, normoactive bowel sounds, soft to palpation and non-tender Extremity normal capillary refill, no clubbing, cyanosis or edema and no calf tenderness Skin Skin Narrative: mild, papular erythematous rash in lower abdomen, just above the dressing over the surgical site on lower abdomen. Neuro CN's II-XII intact bilaterally, no focal motor deficits and deep tendon reflexes 2+ bilaterally Motor Exam: strength 5/5 throughout Psych thought process normal and cooperative Appearance: appropriate Assessment & Plan Assessment/Plan (1) Essential hypertension: PLAN: Plan #Degenerative disc disease s/p anterior lumbar fusion of L4-5 * today is POD 1 * PT/OT on board * pain meds as per primary team * incentive spirometry * fall precautions * * #Hypertension: on norvasc and ramipril #GERD: on PPI #ANxiety and depression * on Effexor * #Alcohol use disorder: on folic acid. Not in active withdrawal DVT prophylaxis: SCDs. As per primary team. Charges/Coding Visit Charges Inpatient E&M: 44493 Subs Hosp L2
[2022-10-12] MEDS: amLODIPine 2.5 MG Tablet PO (22:58)
[2022-10-12] MEDS: Pramipexole Di-HCl 0.25 MG Tablet PO (22:58)
[2022-10-12] MEDS: Venlafaxine HCl 75 MG Tablet 37.5 MG PO (23:00)
[2022-10-12] MEDS: Ramipril 10 MG Capsule PO (23:00)
[2022-10-13] VITALS (8 sets, daily range): BP systolic 132–170; BP diastolic 68–92; PULSE 83–94; RESP 16–18; TEMP 37.1–37.3; O2SAT 93–96
[2022-10-13] MEDS: Ondansetron 4 MG/2 ML Vial IV (03:48)
[2022-10-13] MEDS: 0.9% Saline Lock 10 ML Syringe IV (03:48)
--- NOTE | 2022-10-13 04:08 | PCM.HOSP.N ---
Hospitalist Note Patient with fever overnight, improved with tylenol administration. COVID obtained, negative. Will request CXR this AM and UCx/UA to further assess.
[2022-10-13] MEDS: oxyCODONE 5 MG Tablet PO ×5 (04:12→21:00)
[2022-10-13 05:05] LABS: Bacteria 0 SEEN /hpf (None Seen); Mucous, Urine 0 SEEN /hpf (<or=2+); Red Blood Cells-Urine 0 SEEN /hpf (0-5); Squamous Epithelial Cells - UA 0 SEEN /hpf (5-10)
[2022-10-13 05:34] LABS: Color, Urine Yellow (Yellow); Glucose, Dipstick Normal (Normal); Ketone-Dipstick 15 mg/dl (Negative); Leukocyte Esterase-Dipstick Negative /ul (Negative); Nitrite-Dipstick Negative (Negative); Occult Blood-Urine Negative /ul (Negative); Protein-Dipstick 15 mg/dl (Negative); Urine Bilirubin Dipstick Negative (Negative); Urine Clarity Clear (Clear); Urine Urobilinogen Normal (Normal)
[2022-10-13] MEDS: Acetaminophen 500 MG Tablet 1000 MG PO ×3 (05:48→20:54)
--- NOTE | 2022-10-13 05:55 | RAD_ITS ---
EXAM: XR CHEST, 1 VIEW CLINICAL INDICATION: Fever TECHNIQUE: Frontal view of the chest. This report was created using Docstoc report generation technology. COMPARISON: 10/25/2017 FINDINGS: LUNGS AND PLEURAL SPACES: Unremarkable. No consolidation or edema. No pneumothorax. No effusion. HEART: Mild enlargement of the cardiac silhouette. MEDIASTINUM: Central airways and mediastinal contour are unremarkable. BONES/JOINTS: Unremarkable. SOFT TISSUES: Unremarkable. RAD/Chest 1 View (Portable) IMPRESSION: No acute findings in the chest. Electronically Signed: Villa Goetz MD at 6:19 EDT ,
[2022-10-13 05:59] LABS: White Blood Cells 0-5 SEEN /hpf (0-5)
[2022-10-13] MEDS: Folic Acid 1 MG Tablet PO (08:42)
[2022-10-13] MEDS: Ramipril 10 MG Capsule PO ×2 (10:45→20:54)
[2022-10-13] MEDS: Pantoprazole Sodium 40 MG Tablet PO (10:45)
[2022-10-13] MEDS: Ensure Clear 120 ML Liquid PO ×3 (10:48→16:49)
--- NOTE | 2022-10-13 11:36 | PN_ITS ---
Subjective Subjective Patient seen and examined. SHe complained of some back pain. She also had a fever overnight. She denied any chest pain, cough, shortness of breath, palpitations, abdominal pain, dizziness, nausea, vomiting or diarrhea. She had been told that the area around the surgical site in her lower back was red and warm. Review of systems is otherwise negative. She says she hasnt yet passed gas or had a bowel movement. Objective Data Objective Data Vital Signs: Vital Signs Temp Pulse Resp BP Pulse Ox O2 Del Method O2 Flow Rate 98.8 F 83 18 142/78 H 96 Room Air 2 10/13/22 05:47 10/13/22 05:47 10/13/22 04:10 10/13/22 05:47 10/13/22 08:39 10/13/22 04:10 10/11/22 20:21 Oxygen Flow Rate (L/min) 2 Oxygen Delivery Method Room Air Weight: 160 lb Body Mass Index (BMI) 27.4 Intake & Output: Intake and Output for Last 24 Hours 10/11/22 10/12/22 10/13/22 23:59 23:59 23:59 Intake Total 3474 / 3474 1644.75 / 1644.75 300 / 300 Output Total 1350 / 1350 3650 / 3650 Balance 2124 / 2124 - / - 300 / 300 Lab / Micro Data Result Diagrams: 10/12/22 06:38 10/12/22 06:38 Labs: Laboratory Results - last 24 hr 10/13/22 01:06: COVID-19 ([facility]) Not Detected 10/13/22 04:30: Urine Color Yellow, Urine Clarity Clear, Urine pH 7.0, Ur Specific [place] 1.010, Urine Protein 15 H, Urine Glucose (UA) Normal, Urine Ketones 15 H, Urine Occult Blood Negative, Urine Nitrite Negative, Urine Bilirubin Negative, Urine Urobilinogen Normal, Ur Leukocyte Esterase Negative, Urine RBC 0 SEEN, Urine WBC 0-5 SEEN, Ur Squamous Epith Cells 0 SEEN, Urine Bacteria 0 SEEN, Urine Mucus 0 SEEN Radiography Diagnostic Testing: Radiology Impression Chest X-Ray 10/13/22 05:55 IMPRESSION: No acute findings in the chest. Electronically Signed: Villa Goetz MD at 6:19 EDT , Physical Exam Const alert and oriented x3 General Appearance: cooperative HEENT normocephalic, head/scalp atraumatic and moist oral mucous membranes Neck no lymphadenopathy and supple Lymph Lymphatic: no lymphadenopathy noted and no lymphedema noted Resp normal respiratory effort, normal air movement and clear to auscultation bilaterally Cardio regular rate, regular rhythm, S1 normal heart sound, S2 normal heart sound and no murmurs GI soft to palpation and non-tender GI Narrative: mildly distended abdomen, intact dressing over lower abdomen Extremity normal capillary refill, no clubbing, cyanosis or edema and no calf tenderness Skin Skin Narrative: mild, papular erythematous rash in lower abdomen, just above the dressing over the surgical site on lower abdomen has largely resolved. She does have erythema and differential warmth adjacent to the intact surgical dressing at site of surgery on lower back. Minimally tender to touch Neuro CN's II-XII intact bilaterally, no focal motor deficits and deep tendon reflexes 2+ bilaterally Motor Exam: strength 5/5 throughout Psych thought process normal and cooperative Appearance: appropriate Assessment & Plan Assessment/Plan (1) Essential hypertension: PLAN: Plan #Degenerative disc disease s/p anterior lumbar fusion of L4-5 * today is POD 2 * PT/OT on board * pain meds as per primary team * incentive spirometry * fall precautions * #Fever * patient did develop a fever overnight * CXR showed no acute cardiopulmonary process and urinalysis showed no evidence of UTI * she does have erythema arouond the dressing on her lower back; this is concerning for cellulitis nad post op wound infection * surgical site will need to be evaluated by primary team; defer to primary team about starting antibiotics * #Hypertension: on norvasc and ramipril #GERD: on PPI #ANxiety and depression * on Effexor * #Alcohol use disorder: on folic acid. Not in active withdrawal DVT prophylaxis: SCDs. As per primary team. Charges/Coding Visit Charges Inpatient E&M: 50709 Subs Hosp L2
[2022-10-13] MEDS: diazePAM 5 MG Tablet PO ×2 (12:34→20:59)
--- NOTE | 2022-10-13 16:54 | PN.ORTHO_ITS ---
Objective Data Objective Data Judy was seen on rounds today around 1230. She is a little more pain for her back today than she was yesterday. In addition she has a strange rash on each side of the incision or at least the dressing but it does not itch. It is not swollen. It does not hurt. For now we will simply keep an eye on it. N eurologically she remains intact. Her leg pain is still completely gone. Her anterior dressing is likewise dry. Hopefully she will be feeling a bit better by tomorrow. She has bowel sounds now however we will still keep her on clear liquids until tomorrow at which time we will start feeding her. She may go home tomorrow depending on how she is feeling. Vital Signs: Vital Signs Temp Pulse Resp BP Pulse Ox O2 Del Method O2 Flow Rate 99.0 F 87 16 152/82 H 93 Room Air 2 10/13/22 13:37 10/13/22 13:37 10/13/22 13:37 10/13/22 13:37 10/13/22 13:37 10/13/22 13:37 10/11/22 20:21 Oxygen Flow Rate (L/min) 2 Oxygen Delivery Method Room Air Weight: 160 lb Body Mass Index (BMI) 27.4 Intake & Output: Intake and Output for Last 24 Hours 10/11/22 10/12/22 10/13/22 23:59 23:59 23:59 Intake Total 3474 / 3474 1644.75 / 1644.75 300 / 300 Output Total 1350 / 1350 3650 / 3650 750 / 750 Balance 2124 / 2124 -2004.25 / -2004.25 -450 / -450 Lab / Micro Data Result Diagrams: 10/12/22 06:38 10/12/22 06:38 Labs: Laboratory Results - last 24 hr 10/13/22 01:06: COVID-19 ([facility]) Not Detected 10/13/22 04:30: Urine Color Yellow, Urine Clarity Clear, Urine pH 7.0, Ur Specific [place] 1.010, Urine Protein 15 H, Urine Glucose (UA) Normal, Urine Ketones 15 H, Urine Occult Blood Negative, Urine Nitrite Negative, Urine Bilirubin Negative, Urine Urobilinogen Normal, Ur Leukocyte Esterase Negative, Urine RBC 0 SEEN, Urine WBC 0-5 SEEN, Ur Squamous Epith Cells 0 SEEN, Urine Bacteria 0 SEEN, Urine Mucus 0 SEEN Radiography Diagnostic Testing: Radiology Impression Chest X-Ray 10/13/22 05:55 IMPRESSION: No acute findings in the chest. Electronically Signed: Villa Goetz MD at 6:19 EDT ,
[2022-10-13] MEDS: Venlafaxine HCl 75 MG Tablet 37.5 MG PO (20:54)
[2022-10-13] MEDS: Pramipexole Di-HCl 0.25 MG Tablet PO (20:54)
[2022-10-13] MEDS: amLODIPine 2.5 MG Tablet PO (20:54)
[2022-10-14] MEDS: oxyCODONE 5 MG Tablet PO ×6 (01:23→22:31)
[2022-10-14] MEDS: Senna Tablet 1 TABLET PO ×3 (01:24→21:46)
[2022-10-14 02:00] VITALS: BP 132/84; PULSE 74; RESP 16; TEMP 36.7; O2SAT 96
[2022-10-14] MEDS: diazePAM 5 MG Tablet PO ×4 (03:17→21:45)
[2022-10-14] MEDS: Acetaminophen 500 MG Tablet 1000 MG PO ×3 (05:53→21:45)
[2022-10-14] MEDS: Ramipril 10 MG Capsule PO ×2 (08:56→21:46)
[2022-10-14] MEDS: Folic Acid 1 MG Tablet PO (08:56)
[2022-10-14] MEDS: Pantoprazole Sodium 40 MG Tablet PO (08:56)
[2022-10-14 09:02] LABS: Absolute Lymphocyte Count 1.48 X10^3/uL (0.83-4.51); Absolute Neutrophil Count 6.9 X10^3/uL (2.0-7.7); Basophil# 0.04 X10^3/uL; Basophil% 0.4 % (0-1); Eosinophil# 0.18 X10^3/uL; Eosinophils% 1.9 % (0-5); Hematocrit 34.1 % (37-47); Hemoglobin 10.7 g/dL (12.0-15.0); Lymphocyte # 1.48 X10^3/ul (0.83-4.51); Lymphocyte % 15.4 % (19-41); Mean Corp Hgb Conc 31.4 g/dL (32-36); Mean Corpuscular Hgb 30.1 pg (27.0-32.0); Mean Corpuscular Volume 95.8 fL (81-99); Monocyte# 0.99 X10^3/uL; Monocyte% 10.3 % (0-10); NRBC Flagged by Analyzer 0 % (0-5); Neutrophil # 6.88 X10^3/uL (2.7-7.7); Neutrophil % 71.5 % (47-70); Platelet Count 278 K/mm3 (150-450); RBC Distribution Width CV 12.8 % (11.6-14.6); RBC Distribution Width SD 45.2 fl (35.1-43.9); Red Blood Count 3.56 M/mm3 (4.2-5.4); White Blood Count 9.6 K/mm3 (4.4-11.0)
[2022-10-14] MEDS: Ensure Clear 120 ML Liquid PO ×3 (09:07→18:34)
[2022-10-14 09:24] LABS: Anion Gap 8 (5-15); BUN 5 mg/dL (7-18); BUN/Creat Ratio 8.3 RATIO (10-20); Calcium,Total 9.1 mg/dL (8.5-10.1); Chloride 100 mmol/L (98-107); EST Glomerular Filtration Rate 108 mL/min (>60); Est Glom Filt Rate - Afr Amer 131 mL/min (>60); Glucose 145 mg/dL (74-106); Potassium 3.4 mmol/L (3.5-5.1); Sodium Level 137 mmol/L (136-145)
[2022-10-14 09:34] VITALS: BP 137/94; PULSE 79; RESP 14; TEMP 36.9; O2SAT 97
--- NOTE | 2022-10-14 10:50 | CASEMGMT ---
SHAWN JOHNSON: Face to face with pt at chairside. Pt states she continues to plan to return home upon discharge. Discussed possible need for walker at discharge which pt is agreeable to obtaining. Pt selected [facility] to supply if needed. Will continue to follow and assist with DC planning needs as identified. Estela Smith RN CM
--- NOTE | 2022-10-14 12:55 | CASEMGMT ---
SHAWN CM: Discussed possible need for FWW at discharge with Dr. Damian who agrees pt would benefit. Script obtained and signed. Green sheet placed on chart. Estela Smith RN CM
[2022-10-14 14:00] VITALS: BP 132/83; PULSE 88; RESP 16; TEMP 36.9; O2SAT 98
--- NOTE | 2022-10-14 14:14 | PN_ITS ---
Subjective Subjective Patient seen and examined. Still complaining of pain in her lower back at surgical sites. She has been working with therapy and is able to ambulate with a walker. Review of systems otherwise negative. She has made hemodynamically stable. Objective Data Objective Data Vital Signs: Vital Signs Temp Pulse Resp BP Pulse Ox O2 Del Method O2 Flow Rate 98.5 F 79 14 137/94 H 97 Room Air 2 10/14/22 09:34 10/14/22 09:34 10/14/22 09:34 10/14/22 09:34 10/14/22 09:34 10/14/22 09:34 10/11/22 20:21 Oxygen Flow Rate (L/min) 2 Oxygen Delivery Method Room Air Weight: 160 lb Body Mass Index (BMI) 27.4 Intake & Output: Intake and Output for Last 24 Hours 10/12/22 10/13/22 10/14/22 23:59 23:59 23:59 Intake Total 1644.75 / 1644.75 300 / 300 Output Total 3650 / 3650 750 / 750 Balance -2004.25 / -2004.25 -450 / -450 Lab / Micro Data Result Diagrams: 10/14/22 08:44 10/14/22 08:44 Labs: Laboratory Results - last 24 hr 10/14/22 08:44: WBC 9.6, RBC 3.56 L, Hgb 10.7 L, Hct 34.1 L, MCV 95.8, MCH 30.1, MCHC 31.4 L, RDW Std Deviation 45.2 H, RDW Coeff of [place] 12.8, Plt Count 278, MPV 10.0, Immature Gran % (Auto) 0.500, Neut % (Auto) 71.5 H, Lymph % (Auto) 15.4 L, [place] % (Auto) 10.3 H, Eos % (Auto) 1.9, Baso % (Auto) 0.4, Absolute Neuts (auto) 6.9, Absolute Lymphs (auto) 1.48, Nucleated RBC % 0 10/14/22 08:44: Sodium 137, Potassium 3.4 L, Chloride 100, Carbon Dioxide 29.0, Anion Gap 8, BUN 5 L, Creatinine 0.60, Estim Creat Clear Calc 86.10, Est GFR (MDRD) Af Amer 131, Est GFR (MDRD) Non-Af 108, BUN/Creatinine Ratio 8.3 L, Glucose 145 H, Calcium 9.1 Micro: Microbiology 10/13/22 04:30 Urine, Clean Catch Urine Culture - Preliminary GNR Poss Pseudomonas sp Physical Exam Const alert and oriented x3 General Appearance: cooperative HEENT normocephalic, head/scalp atraumatic and moist oral mucous membranes Neck no lymphadenopathy and supple Lymph Lymphatic: no lymphadenopathy noted and no lymphedema noted Resp normal respiratory effort, normal air movement and clear to auscultation bilaterally Cardio regular rate, regular rhythm, S1 normal heart sound, S2 normal heart sound and no murmurs GI normal to inspection, nondistended, normoactive bowel sounds, soft to palpation and non-tender GI Narrative: mildly distended abdomen, intact dressing over lower abdomen Extremity normal capillary refill, no clubbing, cyanosis or edema and no calf tenderness Skin Skin Narrative: mild, papular erythematous rash in lower abdomen, just above the dressing over the surgical site on lower abdomen has largely resolved. erythema and differential warmth adjacent to the intact surgical dressing at site of surgery on lower back is improving Minimal tenderness. Neuro CN's II-XII intact bilaterally, no focal motor deficits, no sensory deficits noted and deep tendon reflexes 2+ bilaterally Motor Exam: strength 5/5 throughout Psych thought process normal and cooperative Appearance: appropriate Assessment & Plan Assessment/Plan (1) Essential hypertension: PLAN: Plan #Degenerative disc disease s/p anterior lumbar fusion of L4-5 * today is POD 2 * PT/OT on board * pain meds as per primary team * incentive spirometry * fall precautions * #Fever * fever has resolved. * CXR showed no acute cardiopulmonary process and urinalysis showed no evidence of UTI * will monitor * #Hypertension: on norvasc and ramipril #GERD: on PPI #ANxiety and depression * on Effexor * #Alcohol use disorder: on folic acid. Not in active withdrawal DVT prophylaxis: SCDs. As per primary team. Charges/Coding Visit Charges Inpatient E&M: 99366 Subs Hosp L2
[2022-10-14 14:56] VITALS: O2SAT 97
[2022-10-14 20:00] VITALS: BP 144/91; PULSE 91; RESP 18; TEMP 36.9; O2SAT 98
[2022-10-14] MEDS: amLODIPine 2.5 MG Tablet PO (21:45)
[2022-10-14] MEDS: Pramipexole Di-HCl 0.25 MG Tablet PO (21:45)
[2022-10-14] MEDS: Venlafaxine HCl 75 MG Tablet 37.5 MG PO (21:46)
[2022-10-15 02:10] VITALS: BP 122/73; PULSE 78; RESP 18; TEMP 36.8; O2SAT 94
[2022-10-15] MEDS: oxyCODONE 5 MG Tablet PO ×2 (06:15→11:50)
[2022-10-15] MEDS: Acetaminophen 500 MG Tablet 1000 MG PO ×2 (06:16→14:11)
[2022-10-15 07:21] VITALS: O2SAT 94
[2022-10-15 09:27] VITALS: BP 123/70; PULSE 77; RESP 18; TEMP 36.8; O2SAT 95
[2022-10-15] MEDS: Pantoprazole Sodium 40 MG Tablet PO (09:34)
[2022-10-15] MEDS: Folic Acid 1 MG Tablet PO (09:34)
[2022-10-15] MEDS: Senna Tablet 1 TABLET PO (09:34)
[2022-10-15] MEDS: diazePAM 5 MG Tablet PO (09:34)
[2022-10-15] MEDS: Ramipril 10 MG Capsule PO (09:35)
--- NOTE | 2022-10-15 12:34 | PN_ITS ---
Subjective Subjective Patient seen and examined. She felt well today. Pain was fairly well controlled. She had an uneventful night and review of symptoms otherwise negative. She has remained hemodynamically stable. Objective Data Objective Data Vital Signs: Vital Signs Temp Pulse Resp BP Pulse Ox O2 Del Method O2 Flow Rate 98.3 F 77 18 123/70 H 95 Room Air 2 10/15/22 09:27 10/15/22 09:27 10/15/22 09:27 10/15/22 09:27 10/15/22 09:27 10/15/22 09:27 10/11/22 20:21 Oxygen Flow Rate (L/min) 2 Oxygen Delivery Method Room Air Weight: 160 lb Body Mass Index (BMI) 27.4 Intake & Output: Intake and Output for Last 24 Hours 10/13/22 10/14/22 10/15/22 23:59 23:59 23:59 Intake Total 300 / 300 Output Total 750 / 750 Balance -450 / -450 Lab / Micro Data Result Diagrams: 10/14/22 08:44 10/14/22 08:44 Micro: Microbiology 10/13/22 04:30 Urine, Clean Catch Urine Culture - Final Pseudomonas aeruginosa Physical Exam Const alert and oriented x3 General Appearance: cooperative HEENT normocephalic, head/scalp atraumatic and moist oral mucous membranes Mouth: dry mucous membranes Eyes PERRL and EOMs intact bilaterally Neck no lymphadenopathy and supple Lymph Lymphatic: no lymphadenopathy noted and no lymphedema noted Resp normal respiratory effort, normal air movement and clear to auscultation bilaterally Cardio regular rate, regular rhythm, S1 normal heart sound, S2 normal heart sound and no murmurs GI normal to inspection, nondistended, normoactive bowel sounds, soft to palpation and non-tender GI Narrative: intact dressing over lower abdomen Extremity normal capillary refill, no clubbing, cyanosis or edema and no calf tenderness Skin Skin Narrative: mild, papular erythematous rash in lower abdomen, just above the dressing over the surgical site on lower abdomen has largely resolved. erythema and differential warmth adjacent to the intact surgical dressing at site of surgery on lower back is improving. No tenderness Neuro CN's II-XII intact bilaterally, no focal motor deficits, no sensory deficits noted and deep tendon reflexes 2+ bilaterally Motor Exam: strength 5/5 throughout Psych thought process normal and cooperative Appearance: appropriate Assessment & Plan Assessment/Plan (1) Essential hypertension: PLAN: Plan #Degenerative disc disease s/p anterior lumbar fusion of L4-5 * today is POD 3 * PT/OT on board * pain meds as per primary team * incentive spirometry * fall precautions * #Fever * fever has resolved. * * #Hypertension: on norvasc and ramipril #GERD: on PPI #ANxiety and depression * on Effexor * #Alcohol use disorder: on folic acid. Not in active withdrawal DVT prophylaxis: SCDs. As per primary team. Disposition: stable for dc from hospitalist standpoint Charges/Coding Visit Charges Inpatient E&M: 05148 Subs Hosp L2
--- NOTE | 2022-10-15 12:45 | CASEMGMT ---
SHAWN CM: Wheeled walker provided to pt. Pt signed [employer] form. Yellow copy provided to pt. White copy to be faxed to [employer] with original placed on chart by [employer] Out Worker. Fabio Smith RN CM
--- NOTE | 2022-10-15 13:58 | DCINST_ITS ---
Discharge Instructions Activity May shower in (days): 2 May resume sexual activity in: 4-6 weeks Weight Bearing Status: Full weight bearing Lifting Restrictions: 15# Dressing / Incision Cleanse incision/area with: Soap & Water Follow Up Care Test Results: Test results from this visit will be discussed in further detail at your follow- up appointment, if applicable. Discharge Plan Admission Admit Date/Time: 10/11/22 05:38 Primary Reason for Your Visit: lumbar fusion Attending Provider: Reyes Damian Primary Care Provider: Hernandez Mosley Chi Consulting Providers: Amandeep Madrigal ; Lydia Hernández Discharge Orders/Prescriptions Prescriptions: No Action tramadol 50 mg tablet 50 mg PO 4XD PRN (Reason: BACK PAIN) venlafaxine 37.5 MG tablet 37.5 mg PO QHS Label Comments: mood folic acid 1 MG tablet 1 mg PO DAILY@0800 Label Comments: DAILY EXCEPT MONDAY amlodipine 5 MG tablet 2.5 mg PO QHS ropinirole 0.25 mg tablet 0.5 mg PO QHS Label Comments: TAKE 2 TABLETS BY MOUTH ONCE DAILY AT BEDTIME FOR 90 DAYS pantoprazole 40 MG tablet,delayed release (DR/EC) 40 mg PO DAILY Label Comments: acid reflux ramipril 10 MG capsule 10 mg PO BID oxycodone-acetaminophen 5-325 mg tablet 1 tab PO Q6H PRN (Reason: pain) 10 Days Qty: 40 0RF diazepam [Valium] 5 mg tablet 5 mg PO TID PRN (Reason: anxiety) 10 Days Qty: 30 0RF Referrals / Follow Up: Hernandez Mosley Chi, MD [Primary Care Provider] - Disposition Disposition (needs filled in before D/C Order can be placed): Home, Self Care
--- NOTE | 2022-10-15 14:00 | PCM.DC.SUM ---
Providers Date of Admission: 10/11/22 Primary Care Physician: Dr. Hernandez Mosley MD Attending Physician: This patient was admitted on Monday the . She underwent 360 degree fusion at the L4-5 level. Today is the fourth postop day and she is doing quite well. She ambulates with her walker without difficulty. Removed her dressing today and the incision is dry and healing well. Neurologically she is intact. I remove the anterior dressing also and that incision likewise is healing well. I told her that she can start showering tomorrow with use of the Hibiclens that she has left from preop. She already has an appointment to see me in the office. She has received oxycodone and Valium for home use. This is the end of discharge summary on Shelley Reagan this is Dr. Damian dictating. Consultations 10/11/22 15:35 Consult: Hospitalist Routine Consulting Provider: Jesse Keller Reason for Consult: Medical Management EMERGENT Consult: No MD Notified: Yes Date Notified: 10/11/22 Time Notified: 18:04 Method of Notification: Text Reason For Visit: 360 LUMBAR FUSION Diagnosis Discharge Diagnosis (1) Essential hypertension: Status: Chronic Code(s): I10 - Essential (primary) hypertension Medications at Discharge Home Medications venlafaxine 37.5 mg tablet 37.5 mg PO QHS depression 03/20/16 folic acid 1 mg tablet 1 mg PO DAILY@0800 supplement 10/25/17 amlodipine 5 mg tablet 2.5 mg PO QHS BP 01/03/18 tramadol 50 mg tablet 50 mg PO 4XD PRN BACK PAIN 11/29/18 pantoprazole 40 mg tablet,delayed release 40 mg PO DAILY GERD 08/09/22 ramipril 10 mg capsule 10 mg PO BID HEART 08/09/22 ropinirole 0.25 mg tablet 0.5 mg PO QHS RESTLESS LEGS 08/09/22 diazepam 5 mg tablet (Valium) 5 mg PO TID PRN anxiety 10 days #30 tabs 10/14/22 oxycodone-acetaminophen 5 mg-325 mg tablet 1 tab PO Q6H PRN pain 10 days #40 tabs 10/14/22 Weight / BMI Weight Weight: 160 lb Body Mass Index (BMI) 27.4 ABG / Lab / Microbiology Data Result Diagrams: 10/14/22 08:44 10/14/22 08:44 Microbiology: Microbiology 10/13/22 04:30 Urine, Clean Catch Urine Culture - Final Pseudomonas aeruginosa D/C Instructions May shower in (days): 2 May resume sexual activity in: 4-6 weeks Weight Bearing Status: Full weight bearing Cleanse incision/area with: Soap & Water Meaningful Use Info Meaningful Use Diagnoses (Choose all that apply): None applicable Discharge Plan Admission Admit Date/Time: 10/11/22 05:38 Primary Reason for Your Visit: lumbar fusion Attending Provider: Reyes Damian Primary Care Provider: Hernandez Mosley Chi Consulting Providers: Amandeep Madrigal ; Lydia Hernández Discharge Orders/Prescriptions Prescriptions: No Action tramadol 50 mg tablet 50 mg PO 4XD PRN (Reason: BACK PAIN) venlafaxine 37.5 MG tablet 37.5 mg PO QHS Label Comments: mood folic acid 1 MG tablet 1 mg PO DAILY@0800 Label Comments: DAILY EXCEPT MONDAY amlodipine 5 MG tablet 2.5 mg PO QHS ropinirole 0.25 mg tablet 0.5 mg PO QHS Label Comments: TAKE 2 TABLETS BY MOUTH ONCE DAILY AT BEDTIME FOR 90 DAYS pantoprazole 40 MG tablet,delayed release (DR/EC) 40 mg PO DAILY Label Comments: acid reflux ramipril 10 MG capsule 10 mg PO BID oxycodone-acetaminophen 5-325 mg tablet 1 tab PO Q6H PRN (Reason: pain) 10 Days Qty: 40 0RF diazepam [Valium] 5 mg tablet 5 mg PO TID PRN (Reason: anxiety) 10 Days Qty: 30 0RF Referrals / Follow Up: Hernandez Mosley Chi, MD [Primary Care Provider] - Disposition Disposition (needs filled in before D/C Order can be placed): Home, Self Care
[2022-10-15 14:12] VITALS: BP 130/79; PULSE 85; RESP 18; TEMP 36.8; O2SAT 98
== END 2022-10-15 14:42 | disposition home or self-care (01) | DRG 460 ==
LOC: ACINP 05:40 → MS3 09:32
PROVIDERS: Anesthesiology; Family Medicine; Student in an Organized Health Care Education/Training Program; Admitting Provider Orthopaedic Surgery; PCP Family Medicine Geriatric Medicine; Referring Provider Orthopaedic Surgery; Visit Provider Orthopaedic Surgery
PROC: 0SG00A0 Fusion of Lumbar Vertebral Joint with Interbody Fusion Device, Anterior Approach, Anterior Column, Open Approach (ICD-10-PCS; principal; 2022-10-11 07:00)
DX: M51.36 Other intervertebral disc degeneration, lumbar region (principal); F32.A Depression, unspecified; F41.9 Anxiety disorder, unspecified; I10 Essential (primary) hypertension; K21.9 Gastro-esophageal reflux disease without esophagitis; Z87.891 Personal history of nicotine dependence; R50.9 Fever, unspecified
CPT/HCPCS: 36415; 71045; 72020; 80048; 81001; 82962; 83735; 85025; 87077; 87086; 87088; 87184; 87186; 87635; 88304; 94668; 97116; 97162; 97530; 99252; A4648; C1713; J7050; J7120; A4216; G0463; J2405; U0003; U0005

== ENCOUNTER 2023-04-21 23:12 | Emergency (ER) | payer MEDICARE, SELFPAY ==
[2023-04-21 23:12] VITALS: BP 115/73; PULSE 70; RESP 16; TEMP 35.9; O2SAT 97; BMI 29.4
--- NOTE | 2023-04-21 23:20 | RAD_ITS ---
EXAM: XR LEFT SHOULDER COMPLETE, 2 OR MORE VIEWS CLINICAL INDICATION: injury TECHNIQUE: 4 views, AP, AP internal and external rotation, scapular Y view. COMPARISON: Chest radiograph October 13, 2022 FINDINGS: BONES/JOINTS: Unremarkable. No acute fracture. No subluxation. Normal alignment. Preservation of the joint space. No sclerotic or destructive changes observed. SOFT TISSUES: Unremarkable. No soft tissue swelling or gas. No radiopaque foreign body. RAD/Shoulder min 2 Views IMPRESSION: Negative left shoulder x-rays. Electronically Signed: Juliette Mcdonald MD at 0:11 EDT ,
--- NOTE | 2023-04-21 23:20 | RAD_ITS ---
EXAM: XR LEFT HIP WITH PELVIS WHEN PERFORMED, 2 OR 3 VIEWS CLINICAL INDICATION: injury pain. TECHNIQUE: Two or three views of the left hip with pelvis when performed. COMPARISON: No relevant prior studies available. FINDINGS: BONES/JOINTS: Postoperative changes in the lower lumbar spine, degenerative changes in the lumbar spine, and degenerative changes of the bilateral SI joints. No displaced fracture. No destructive or sclerotic lesions. Note that overlapping bowel shadows may however obscure fine detail. No widening of the pubic symphysis. SOFT TISSUES: Amorphous calcification within the soft tissues adjacent to the right greater trochanter, likely calcific tendinopathy. No soft tissue swelling or gas. RAD/HIP, UNI W/ Pelvis 2-3 Views IMPRESSION: No acute findings. Electronically Signed: Obey Lozano DO at 23:46 EDT ,
--- NOTE | 2023-04-21 23:21 | EDS_ITS ---
HPI HPI - Fall History of Present Illness Chief Complaint: Fall Informant: patient Narrative Narrative: Mechanical fall left hip left shoulder pain 2 hours prior to arrival. Slipped on wood floor landing hip and left shoulder. No head injuries. No head tachycardia fragments. Status post lumbar fusion this past September. Denies any increasing back pain. Able to ambulate however has pain on the lateral aspect the hip. She took home tramadol prior to arrival. Denies any pain in the groin. Status post left hip injection by her spine surgeon 2 days ago. PFSH PFSH Medical History Alcohol use Anxiety Back pain Former smoker History of diverticulitis History of pain when walking Hx of peptic ulcer Hx of psoriatic arthritis Hypertension Osteoarthritis Physical exam, pre-employment Post-menopausal Restless legs Wears glasses Home Medications venlafaxine 37.5 mg tablet 37.5 mg PO QHS depression 03/20/16 [History Last Taken 10/10/22] folic acid 1 mg tablet 1 mg PO DAILY@0800 supplement 10/25/17 [History Last Taken 09/11/22] amlodipine 5 mg tablet 2.5 mg PO QHS BP 01/03/18 [History Last Taken 10/10/22] pantoprazole 40 mg tablet,delayed release 40 mg PO DAILY GERD 08/09/22 [History Last Taken 10/11/22] ramipril 10 mg capsule 10 mg PO BID HEART 08/09/22 [History Last Taken 10/11/22] ropinirole 0.25 mg tablet 0.5 mg PO QHS RESTLESS LEGS 08/09/22 [History Last Taken 10/10/22] furosemide 20 mg tablet tablet PO 01/12/23 [History Last Taken Unknown] cyclobenzaprine 10 mg tablet 10 mg PO TID PRN Muscle Spasm #20 TABLETS 04/22/23 [Rx Last Taken Unknown] Allergy/AdvReac Type Severity Reaction Status Date / Time adhesive tape Allergy Severe blistering Verified 11/23/22 10:33 bee venom protein (honey bee) Allergy Swelling Verified 11/23/22 10:33 Family History Other Breast cancer CAD (coronary artery disease) Heart disease Hypertension Surgical History History of appendectomy History of section History of hysterectomy History of total right knee replacement Status post left partial knee replacement Social History household members: spouse Smoking Status: Former smoker alcohol intake: current alcohol intake frequency: holidays/special occasions only substance use type: does not use what type of physical activity do you participate in: walking frequency: 1-2 times per week ROS ROS ED Constitutional Constitutional ED: Denies chills, fever(s) or sweats Eyes Eyes: Denies change in vision ENT ENT ED: Denies dysphagia or sore throat Cardiovascular Cardiovascular: Denies chest pain, leg edema, palpitations or racing heartbeat Respiratory/Chest Respiratory/Chest: Denies cough, dyspnea or dyspnea on exertion Gastrointestinal Gastrointestinal: Denies abdominal pain, diarrhea, nausea or vomiting Genitourinary Genitourinary ED: Denies dysuria, hematuria or urinary frequency Musculoskeletal Musculoskeletal: Reports extremity pain and other Details: Left shoulder and hip pain ; Denies back pain or neck pain Integumentary Denies rash or wounds Neurologic Neurologic: Denies headache(s), paresthesias or weakness EXAM Physical Exam Const Vital Signs: 04/21/23 23:12 04/21/23 23:16 04/22/23 00:38 Temperature 96.7 F L Temperature Source Temporal Pulse Rate 70 Respiratory Rate 16 116 H Respiratory Effort Normal Blood Pressure 115/73 Blood Pressure Mean 87 Pulse Ox 97 Oxygen Delivery Method Room Air Positive well nourished and well developed Constitutional Narrative: Nontoxic uncomfortable General Appearance ED: well developed HEENT Reports moist mucous membranes normocephalic and atraumatic Eyes PERRL, EOMs intact bilaterally and conjunctivae normal General Eye ED: Yes normal appearance of both eyes Neck no lymphadenopathy and supple General: Negative for tenderness Chest Wall inspection of chest normal and palpation of chest normal Chest: Negative for tenderness Resp normal respiratory effort and normal air movement Resp Narrative: Symmetric breath sounds Effort and Inspection: symmetric chest movement; Negative for respiratory distress Cardio regular rate, regular rhythm and no murmurs Peripheral Pulses: pulses 2+ throughout GI normal to inspection, nondistended, normoactive bowel sounds and non-tender Palpation: Negative for guarding or rebound tenderness present Back/Spine no CVA tenderness and no thoracic nor lumbar tenderness Extremity Extremity Narrative: Right upper extremity full range of motion. Left upper extremity full range of motion, no deformities there is no clavicle tenderness there is mild tenderness of the proximal shoulder. No humerus or elbow tenderness. Skin intact. Right lower extremity: Full range of motion negative logroll. Nontender. Pulse intact distally. Left lower extremity. Negative logroll no shortening or deformities. However is tender palpation along the iliac crest mild pain at the lateral greater trochanteric. No mid thigh or knee tenderness. Pulses intact distally. General Extremety ED: Negative for edema or tenderness General Extremity: Negative for edema Neuro oriented x3 and no sensory deficits noted Sensorium / Orientation: awake and alert Skin no rashes or lesions noted and no wounds MDM MDM MDM Narrative Medical decision making narrative: Interventions / MDM: Differential diagnosis: Contusion Diagnosis considered but do not suspect: Fractures however x-ray negative My EKG interpretation: N/A Imaging independently reviewed and interpreted by myself: Three-view x-ray left hip and pelvis: No fracture or dislocation. 3 view left shoulder x-ray: No fracture or dislocation External documents reviewed: N/A Test considered but not ordered:N/A ED course: Patient mechanical fall pain right hip more iliac crest region. Left shoulder pain. No deformities. IM morphine ordered for pain control x-ray left hip and shoulder ordered for further evaluation. Results of imaging is negative for any fracture or dislocation. Reevaluation pain was improving. She was ambulated is able to weight-bear just feels more stiff. She has been on muscle relaxers in the past. Meds to bed with cyclobenzaprine to use as needed. She has tramadol at home to use. Outpatient follow-up. All questions were answered. Re-evaluation: stable Disposition discussed with patient/family/significant other: Patient Case discussed with consulting clinician: N/A This note was generated with [employer] dictation software. It may contain incorrect words, spelling, and punctuation that were not noted in checking the note before signing. Radiography Diagnostic Testing: Clinical Impression(s) from Imaging Studies Hip/Pelvis X-Ray 04/21/23 23:20 IMPRESSION: No acute findings. Electronically Signed: Obey Lozano DO at 23:46 EDT , Shoulder X-Ray 04/21/23 23:20 IMPRESSION: Negative left shoulder x-rays. Electronically Signed: Juliette Mcdonald MD at 0:11 EDT , Discharge Plan Triage Chief Complaint: Fall ED Provider: Eder Lamas Dx/Rx/DC Orders Clinical Impression: Fall, Contusion of hip, left, Contusion of left shoulder Instructions: ED Hip Contusion, ED Shoulder Contusion Prescriptions: New cyclobenzaprine [cyclobenzaprine] 10 mg tablet 10 mg PO TID PRN (Reason: Muscle Spasm) Qty: 20 0RF No Action furosemide 20 mg tablet PO venlafaxine 37.5 MG tablet 37.5 mg PO QHS Patient Comments: mood folic acid 1 MG tablet 1 mg PO DAILY@0800 Patient Comments: DAILY EXCEPT MONDAY amlodipine 5 MG tablet 2.5 mg PO QHS ropinirole 0.25 mg tablet 0.5 mg PO QHS Patient Comments: TAKE 2 TABLETS BY MOUTH ONCE DAILY AT BEDTIME FOR 90 DAYS pantoprazole 40 MG tablet,delayed release (DR/EC) 40 mg PO DAILY Patient Comments: acid reflux ramipril 10 MG capsule 10 mg PO BID Primary Care Provider: Hernandez Mosley Chi Referrals: Hernandez Mosley Chi, MD [Primary Care Provider] - 1 Week if not improving Activity Restrictions/Additional Instructions: Left shoulder and left hip x-ray negative. Continue your tramadol at home. Muscle relaxer as needed. Follow-up with your doctor. Disposition Disposition: Home, Self Care
[2023-04-21] MEDS: Morphine 4 MG/ML Syringe IM (23:53)
[2023-04-22 00:38] VITALS: RESP 116
== END 2023-04-22 00:59 | disposition home or self-care (01) ==
PROVIDERS: Emergency Provider Emergency Medicine; PCP Family Medicine Geriatric Medicine; Visit Provider Emergency Medicine
DX: S40.012A Contusion of left shoulder, initial encounter (principal); S70.02XA Contusion of left hip, initial encounter; Z87.891 Personal history of nicotine dependence; W01.198A Fall on same level from slipping, tripping and stumbling with subsequent striking against other object, initial encounter; I10 Essential (primary) hypertension; Z79.899 Other long term (current) drug therapy; G25.81 Restless legs syndrome; Z90.49 Acquired absence of other specified parts of digestive tract; Z90.710 Acquired absence of both cervix and uterus; Z96.653 Presence of artificial knee joint, bilateral
CPT/HCPCS: 73030; 73502; 96372; 99282

== ENCOUNTER 2023-06-21 09:20 | Day surgery (SDC) | payer MEDICARE, SELFPAY ==
--- NOTE | 2023-06-19 12:25 | EKG12_ITS ---
Test Reason : PREOP Blood Pressure : / mmHG Vent. Rate : 105 BPM Atrial Rate : 105 BPM P-R Int : 114 ms QRS Dur : 070 ms QT Int : 328 ms P-R-T Axes : 038 004 026 degrees QTc Int : 433 ms Sinus tachycardia Otherwise normal ECG Confirmed by ROSANA ROSADO, FARNAZ ([id number]), editorial assistant JAILENE BLOOM ([id number]) on 06/20/2023 7:12:59 AM Referred By: Shabbir Birch Confirmed By:FARNAZ WAYNE MD
[2023-06-19 13:21] LABS: Absolute Lymphocyte Count 1.75 X10^3/uL (0.83-4.51); Basophil# 0.07 X10^3/uL; Basophil% 0.7 % (0-1); Eosinophil# 0.04 X10^3/uL; Eosinophils% 0.4 % (0-5); Hematocrit 47.3 % (37-47); Hemoglobin 15.4 g/dL (12.0-15.0); Lymphocyte # 1.75 X10^3/ul (0.83-4.51); Lymphocyte % 16.3 % (19-41); Mean Corp Hgb Conc 32.6 g/dL (32-36); Mean Corpuscular Hgb 29.8 pg (27.0-32.0); Mean Corpuscular Volume 91.5 fL (81-99); Mean Platelet Vol. 10.1 fl (6.2-12.0); Monocyte% 7.5 % (0-10); NRBC Flagged by Analyzer 0 % (0-5); Neutrophil # 8.02 X10^3/uL (2.7-7.7); Neutrophil % 74.7 % (47-70); Platelet Count 388 K/mm3 (150-450); RBC Distribution Width CV 13.2 % (11.6-14.6); RBC Distribution Width SD 44.7 fl (35.1-43.9); Red Blood Count 5.17 M/mm3 (4.2-5.4); White Blood Count 10.7 K/mm3 (4.4-11.0)
[2023-06-19 13:35] LABS: Hemoglobin A1c 5.5 % (3.8-5.6)
[2023-06-19 13:51] LABS: Prothrombin Time (Protime)PT. 12.6 SECONDS (11.7-14.9)
[2023-06-19 13:52] LABS: Partial Thromboplast Time 28.8 Seconds (24.1-36.2)
[2023-06-19 13:57] LABS: Anion Gap 6 (5-15); BUN 15 mg/dL (7-18); BUN/Creat Ratio 18.5 RATIO (10-20); Calcium,Total 9.7 mg/dL (8.5-10.1); Chloride 101 mmol/L (98-107); Creatinine, Serum 0.81 mg/dL (0.55-1.02); EST Glomerular Filtration Rate 76 mL/min (>60); Est Glom Filt Rate - Afr Amer 92 mL/min (>60); Glucose 99 mg/dL (74-106); Potassium 3.7 mmol/L (3.5-5.1); Sodium Level 136 mmol/L (136-145)
[2023-06-21] VITALS (11 sets, daily range): BP systolic 123–148; BP diastolic 64–125; PULSE 72–91; RESP 14–18; TEMP 36.2–37.1; O2SAT 94–100; BMI 28.0
--- NOTE | 2023-06-21 | SYN_PTH ---
PATIENT: VIJI TESFAYE LOC: [facility] [place] U#:[id number] AGE/SX: 63/F ROOM: RE06/21/[address]: Dr. Shabbir Birch DO : 1960 BED: DIS: 06/21/2023 SPEC #: [id number] RECD: 06/21/23 13:23 STATUS: RUSTY REJoe #: [id number] RADHA: 06/21/23 00:[address]: Shabbir Birch DEPT: SURGICAL PATHOLOGY RECD BY: Kellie Chen ENTERED: 06/21/23 13:56 SP TYPE: SYNOVIUM OTHR DR: Dr. Hernandez Mosley MD Tissues: Synovial tissue of joint, NOS Procedures: Special Stain Group II Surgery Specimen Level IV Imprint (control) HEADER OPERATION: Left knee revision of patellar component PRE-OP DIAGNOSIS: Internal derangement of knee joint, history of arthroplasty of knee TISSUE SUBMITTED: Synovium of left knee for crystal analysis MICROSCOPIC DIAGNOSIS Synovium of left knee, biopsy: Synovium with crystalline debris consistent with pseudogout. AM:bobbi 06/22/2023 COMMENT Two touch prep smears are prepared from fresh tissue for crystal analysis under polarized microscopy. MICROSCOPIC DESCRIPTION Slides are reviewed. GROSS DESCRIPTION Received in fixative is one container labeled with the patient's name and designated synovium of left knee. The specimen consists of an irregular fragment of grossman-white soft tissue measuring 2.0 x 0.8 x 0.3 cm. The specimen is totally submitted in one cassette. [employer] touch preps (two) are prepared for crystal evaluation. / AM:bobbi 06/21/2023 TC:5 CPT: 24023, 12108, 41887
[2023-06-21 06:09] LABS: Fructosamine 236 umol/L (0-285)
[2023-06-21] MEDS: Lactated Ringers 1,000 ML 15 ML IV (10:05)
[2023-06-21] MEDS: Scopolamine 1mg/72hr Patch 1 PATCH TD (10:05)
[2023-06-21] MEDS: Magnesium 1 GM over 15 mins IV (10:05)
[2023-06-21] MEDS: Acetaminophen 500 MG Tablet 1000 MG PO ×2 (10:06→16:39)
[2023-06-21] MEDS: Celecoxib 200 MG Capsule 400 MG PO (10:06)
[2023-06-21] MEDS: Gabapentin 600 MG Tablet PO (10:07)
[2023-06-21 10:42] LABS: Bedside Glucose 119 mg/dL (74-106)
--- NOTE | 2023-06-21 11:26 | PCM.HP.BLA ---
History and Physical Date of Admission: 06/21/23 [facility] [id number] [place] [address] OFFICE VISIT Date of Service: 05/31/23 MR#: [id number] Acct: [id number] Name: VIJI TESFAYE Rep #: [id number] : 1960 Provider: Dr. Shabbir Birch DO Age/Sex: 63/F Location: [facility] [place] Status: Signed Intake Vital Signs 04/21/2323:12 Height 5 ft 4 in Weight: 171 lb 8.314 oz BMI 29.4 BP 115/73 Respiration 16 Pulse 70 Temp 96.7 F L Temp Source Temporal Pulse Oximetry (%) 97 Intake Visit Reasons: LEFT KNEE Chief Complaint: left knee Accompanied by: Self Is patient in pain?: Yes Allergies adhesive tape Allergy (Severe, Verified 11/23/22 10:33) blistering bee venom protein (honey bee) Allergy (Verified 11/23/22 10:33) Swelling Medications venlafaxine 37.5 mg tablet 37.5 mg PO QHS depression 03/20/16 [History Confirmed 05/31/23] folic acid 1 mg tablet 1 mg PO DAILY@0800 supplement 10/25/17 [History Confirmed 05/31/23] amlodipine 5 mg tablet 2.5 mg PO QHS BP 01/03/18 [History Confirmed 05/31/23] pantoprazole 40 mg tablet,delayed release 40 mg PO DAILY GERD 08/09/22 [History Confirmed 05/31/23] ramipril 10 mg capsule 10 mg PO BID HEART 08/09/22 [History Confirmed 05/31/23] ropinirole 0.25 mg tablet 0.5 mg PO QHS RESTLESS LEGS 08/09/22 [History Confirmed 05/31/23] furosemide 20 mg tablet tablet PO 01/12/23 [History Confirmed 05/31/23] cyclobenzaprine 10 mg tablet 10 mg PO TID PRN Muscle Spasm #20 TABLETS 04/22/23 [Rx Confirmed 05/31/23] PFSH Medical History Alcohol use Anxiety Back pain Former smoker History of diverticulitis History of pain when walking Hx of peptic ulcer Hx of psoriatic arthritis Hypertension Osteoarthritis Physical exam, pre-employment Post-menopausal Restless legs Wears glasses Surgical History History of appendectomy History of section History of hysterectomy History of total right knee replacement Status post left partial knee replacement Family History Other Breast cancer CAD (coronary artery disease) Heart disease Hypertension Social History household members: spouse Smoking Status: Former smoker alcohol intake: current alcohol intake frequency: holidays/special occasions only substance use type: does not use what type of physical activity do you participate in: walking frequency: 1-2 times per week HPI LEFT KNEE Details: This documentation accurately reflects the service provided and the decisions made by me, Dr. Shabbir Birch, DO 05/31/23 0904. Part of today?s visit was documented by Dali Bazan, acting as scribe. VIJI TESFAYE is a 63 year old F here today for left knee pain that she has been having for at least 6 months. She states that the left knee is catching and clicking and is painful and she feels at times that the knee wants to give out on her. Denies any past injury to the left knee. She does have a left partial knee replacement. She had this done around [address] Sai Casas through [facility]. She states that she had 2 arthroscopic left knee surgeries prior to partial knee. She has xrays in the system. She has pain over the ant/medial side of the left knee. She has tried knee bracing which causes increased knee pain. She has tried icing. She is currently not being treated with the Methotrexate until she establishes with a new key maker next year. She has a right TKA which has been doing ok. Ortho Exam General General: Yes no acute distress Neurologic: Yes alert and Yes oriented x3 Psychologic: Yes reasonable and appropriate Right Knee Patella Translation: 2 Left Knee Skin/Wound: No ecchymosis, No erythema and No swelling Homans Sign: No Knee ROM: Yes ROM-Extension -20 to 0 and No ROM-Flexion 0-140 (120) Examination: No med jt line tenderness, No Lat jt line tenderness and No TTP Pes Anserine Stability: NML: Anterior Drawer, NML: Posterior Drawer, NML: Valgus 30 and NML: Varus 30 Patella Translation: 2 Patella Grind: Yes KNEE: j-sign no joint effusion medial paramidline incision pain with medial adebayo without click reproducible click with mobilization of patella which is reproducing her pain and symptom she is concerned with Head: Normocephalic Atraumatic Chest: symmetrical rise, non-labored breathing, no audible wheeze Abdomen: no guarding, non-rigidI have examined the patient the following changes are noted:I have examined the patient the following changes are noted: Supplemental Info 05/31/2023 notch view left knee: Demonstrates bone spur formation most significantly lateral compartment there is a loose body in the central posterior joint recess there is mild medial compartment spurring 05/18/2023 x-ray left knee: Significant patella alto, status post patellofemoral arthroplasty, osteophyte formation seen posterior tibial plateau posterior femoral condyles, it appears their implants on the patella is seated medial on the patella leaving a bony rim on the lateral edge that appears to be articulating with the trochlear implant. The trochlear implant is cemented with a central screw which appears well fixed. Coding Level of Care Code Off vis,est,level 4 Diagnoses Internal derangement of left knee M23.92 Laterality: left History of arthroplasty of knee Z96.659 Assessment and Plan Assessment and Plan (1) Internal derangement of knee joint: Status: Acute Qualifiers: Laterality: left Qualified Code(s): M23.92 - Unspecified internal derangement of left knee (2) History of arthroplasty of knee: Status: Acute Orders: Orders Knee 1 or 2 Views Today M25.562 - Pain in left knee Plan Obtained X-rays of patient's left knee. Personally reviewed x-rays. There is no obvious fracture, dislocation, or lucency noted. Patient educated that her hardware is intact and she has mild medial/lat compartment OA. Educated that there is a area of her patella that is not covered by the implant and this part is rubbing and causing the pain. Educated that she also has patella miguel and when she is engaging with extension this can also cause some pain under the patella. Educated that her treatment options are left knee steroid injection or left knee arthroscopic chondroplasty of the patella which would be the least invasive or left knee open revision of the patellar component or left knee revision to TKA. Reviewed the pre-operative plans with the patient. Risks and benefits of the procedure were fully explained, including but not limited to infection, neurovascular injury, continued pain, arthritis, stiffness, need for further surgery, re-injury, DVT, PE, general risks of anesthesia, and loss of limb or life. The patient understands all the risks and does wish to proceed with written consent for open left knee revision of the patellar component possible lateral release. Will attempt to get the patient in for surgery before the end of the year. She will need PT after surgery and should plan on taking about 2 months off. Will need to find the company that Dr. Casas used on the left knee patellofemoral arthroplasty likely [employer]. Follow up 2 weeks post op or sooner if pain, swelling, numbness or associated symptoms, or concerns develop. All questions answered. Patient in agreement of plan. Plan Details Goals & Barriers: Goals Decrease pain Decrease spasm Improve ROM 05/31/23 1208 <Electronically signed by Shabbir Birch DO> Date Shabbir Birch DO Cosigner Signature: Date (if applicable) CC: ~ I have examined the patient the following changes are noted: After further review and discussion with the patient we discussed the possibility of not removing the patellar component if not necessary. We may just excise the lateral portion of the patella if it is small enough. Patient is okay with this we will decide intraoperatively how to proceed.
[2023-06-21] MEDS: Cefazolin 2 GM in 0.9% Normal Saline (100mL Bag) 100 ML IV (11:48)
[2023-06-21] MEDS: dexAMETHasone 10 MG/ML Vial IV (11:55)
[2023-06-21] MEDS: TXA 1000mg in NS100 100ml (IVPB at Incision) 660 MG IV (12:03)
[2023-06-21] MEDS: TXA 1000mg in NS100 100ml (IVPB at Closure) 660 MG IV (12:50)
--- NOTE | 2023-06-21 13:30 | OP.PCM_ITS ---
Operative Report Date of Procedure: 06/21/23 Preoperative diagnosis: Left knee history of patellofemoral arthroplasty failure of patellar component Postoperative diagnosis: Same Procedure: Revision patella Anesthesia: General LMA EBL: 75 Complications: None Specimen: Synovium for crystal analysis Condition: Stable to PACU Tourniquet time 38 minutes drainage millimeters mercury Indication for procedure: 63-year-old female patient who had previous patellofemoral arthroplasty with another surgeon in 2011 , the patellar componen t did not completely resurface the patella and the patient subsequently developed complete cartilage loss with on the lateral third of the remaining patella this resulted in a bone on metal articulation involving the lateral patella and the trochlear implant patient had severe pain directly over this area and with palpation of this area she did have some evidence of osteoarthritis in the remainder of her knee but this is the area that was causing her the most severe symptoms. We did discuss options including revision to a total knee arthroplasty however considering her symptoms are reproducible to direct palpation over the lateral patella we decided that if we can just remove this bone on metal articulation she may do just fine . We also discussed possibly of a arthroscopic debridement of this area however the area exposed was quite large so we opted to proceed with an open procedure. She understood risk benefits alternatives of surgery including risk of bleeding infection nerve art hammad tissue damage need for further surgery continued pain possible need for revision to total knee arthroplasty if her arthritic components in her other compartments progressed. Procedure: Patient met in the preoperative holding area once again the operative extremity was identified by both patient and physician was marked patient was met by anesthesia and an IV was started. Patient was brought back to the operating room wheeled cart and transferred to the operative table in supine position. Patient was prepped and draped in the usual sterile fashion and a timeout was called ensure the proper patient procedure extremity being contemplated. An Esmarch was used to examine at the extremity and the tourniquet was inflated to 300 mmHg. Her previous incision was used and was extended distally just slightly in a curved manner more towards the midline as her previous incision was more medial. Full-thickness flaps were elevated medial and lateral and the joint capsule and the previous medial parapatellar arthrotomy was opened we debulked the backside of the talar tendon to allow for eversion of the patella there was no full-thickness cartilage loss of the remainder of the cartilage that was exposed during the procedure however there was irregularities in the surface indicating lower grade cartilage wear of note she did have crystalline deposition throughout the soft tissues and a sample of this was sent for crystal analysis. We were debating whether just debridement of the lateral portion of the patella could would be sufficient however there was such a large area of exposed posed bone this would root require removal of a pretty large piece of the patella therefore I determined it best to proceed with removal of the patellar component with use of an oscillating saw we then resized and placed a asymmetric polyethylene to further medialize the articulation and lower the articulation as she did have significant patella miguel. The appropriate lug holes were made and a 35 mm asymmetric patella was cemented and held with a clamp until the cement hardened. The knee was brought through range of motion there was smooth patellar articulation and no need for lateral release . thorough irrigation of the knee was performed with several liters of irrigation and and Aricept rinse and the arthrotomy was closed with #1 [id number] Ethibond and #1 Vicryl in the lower portion of the arthrotomy. Subcutaneous closure was performed with 2-0 Vicryl followed by roseline in the skin and a Mepilex Ag dressing was applied thigh-high REGI hose were applied there is no intraoperative complications all counts were correct
--- NOTE | 2023-06-21 13:40 | RAD_ITS ---
INDICATION: Postop in PACU -- in PACU EXAMINATION/TECHNIQUE: X-RAY - LEFT XR Knee 1 or 2 Views 2 VIEWS COMPARISON: Prior study dated: 05/18/2023 FINDINGS: SOFT TISSUES: Skin roseline gas in the soft tissues consistent with recent surgery. Soft tissue swelling. BONES/JOINTS: Status post partial knee arthroplasty in stable position since the previous exam. RAD/Knee 1 or 2 Views IMPRESSION: Postoperative changes as described above. Electronically Signed: Dean Bernal MD at 15:42 EST ,
--- NOTE | 2023-06-21 13:41 | DCINST_ITS ---
Discharge Instructions Diet Discharge Diet: No restrictions Activity Weight Bearing Status: Weight bearing as tolerated Dressing / Incision Call your doctor if you observe: Shortness of breath and Chest pain Additional Dressing/Incision Instructions:: Ice and elevate lower extremities 2 weeks while not ambulating. Ambulation is encouraged. Weight bearing as tolerated. Use assistive devise for stability. Encourage FULL knee extension and flexion 1 time EVERY time you get up and down and MULTIPLE times per day. No showering until 72 hours after surgery. Begin showering postop day #3. Remove the dressing prior to shower and gently wash with warm water and antibacterial soap then pat dry and place abdominal pad (or plain gauze) and REGI hose over top. This is to be done daily. Do not submerge for 3 weeks. If not showering daily after the initial 72 hours then you must clean incision and change dressing daily. Do not allow animals near the incision area. Keep clean. Follow anti-coagulation recommendations as prescribed. Do not take any NSAIDs while on blood thinner. Do not take any additional narcotic pain medication other than what was prescribed on your surgery day without discussing with physician. Narcotic medication can be addictive. Do not drink alcohol while taking narcotics. Supplement narcotic prescription with acetaminophen 1000 mg 4 times a day. Start physical therapy. If you are not currently scheduled for physical therapy or you are unsure of appointment time please call office [facility] to arrange. Call Dr. Birch with any concerns. Follow Up Care Please Follow Up With: Shabbir Birch DO When: 2 weeks Test Results: Test results from this visit will be discussed in further detail at your follow- up appointment, if applicable. Discharge Plan Admission Primary Reason for Your Visit: Revision left knee patellar arthroplasty Attending Provider: Shabbir Birch Primary Care Provider: Hernandez Mosley Chi Discharge Orders/Prescriptions Prescriptions: New acetaminophen [acetaminophen] 500 mg tablet 1,000 mg PO Q6H PRN Qty: 100 0RF cephalexin [cephalexin] 500 mg capsule 1,000 mg PO Q8 Qty: 4 0RF Rx Instructions: take 2 tabs at 9:00 pm and 2 tabs after 5 am when you wake up oxycodone 5 mg tablet 5 - 10 mg PO Q4H PRN (Reason: pain) 5 Days Qty: 40 0RF aspirin 81 mg capsule 81 mg PO BID Qty: 30 0RF Rx Instructions: To prevent blood clot Continued furosemide 20 mg tablet 20 mg PO DAILY venlafaxine 37.5 MG tablet 75 mg PO QHS Patient Comments: mood folic acid 1 MG tablet 1 mg PO DAILY@0800 Patient Comments: DAILY EXCEPT MONDAY amlodipine 5 MG tablet 2.5 mg PO QHS ropinirole 0.25 mg tablet 0.5 mg PO QHS Patient Comments: TAKE 2 TABLETS BY MOUTH ONCE DAILY AT BEDTIME FOR 90 DAYS pantoprazole 40 MG tablet,delayed release (DR/EC) 40 mg PO DAILY Patient Comments: acid reflux ramipril 10 MG capsule 10 mg PO BID Discontinued tramadol 50 mg tablet 50 mg PO DAILY PRN (Reason: pain) Referrals / Follow Up: Hernandez Mosley Chi, MD [Primary Care Provider] - Disposition Disposition (needs filled in before D/C Order can be placed): Home, Self Care
[2023-06-21] MEDS: oxyCODONE 5 MG Tablet PO (15:45)
[2023-06-21] MEDS: Lactated Ringers 1,000 ML 125 ML IV (16:40)
[2023-06-21] MEDS: Cefazolin 1 GM/50 ML BAG IV (16:40)
== END 2023-06-21 18:52 | disposition home or self-care (01) ==
LOC: SDC 09:21 → AC 09:22
PROVIDERS: PCP Family Medicine Geriatric Medicine; Referring Provider Orthopaedic Surgery; Visit Provider Orthopaedic Surgery
PROC: (CPT 27447; principal; 2023-06-21 10:35)
DX: M23.92 Unspecified internal derangement of left knee (principal); M25.562 Pain in left knee; M17.10 Unilateral primary osteoarthritis, unspecified knee; Z87.891 Personal history of nicotine dependence; I10 Essential (primary) hypertension; Z90.49 Acquired absence of other specified parts of digestive tract; Z90.710 Acquired absence of both cervix and uterus; Z98.1 Arthrodesis status; Z96.651 Presence of right artificial knee joint; Z87.19 Personal history of other diseases of the digestive system; M50.30 Other cervical disc degeneration, unspecified cervical region; Z79.899 Other long term (current) drug therapy; Z96.652 Presence of left artificial knee joint; R00.0 Tachycardia, unspecified
CPT/HCPCS: 27438; 01392; 36415; 73560; 80048; 82962; 82985; 83036; 83735; 85025; 85610; 85730; 86850; 86900; 86901; 87077; 87081; 88305; 88313; 93005; 97162; C1776; J7120; J2405; J3475

== ENCOUNTER → 2023-07-05 | Outpatient (CLI) | payer MEDICARE, SELFPAY ==
[2023-07-05 12:41] LABS: Absolute Lymphocyte Count 2.32 X10^3/uL (0.83-4.51); Absolute Neutrophil Count 5.2 X10^3/uL (2.0-7.7); Basophil# 0.06 X10^3/uL; Basophil% 0.7 % (0-1); Eosinophil# 0.08 X10^3/uL; Hematocrit 38.8 % (37-47); Hemoglobin 12.3 g/dL (12.0-15.0); Lymphocyte # 2.32 X10^3/ul (0.83-4.51); Lymphocyte % 27.9 % (19-41); Mean Corp Hgb Conc 31.7 g/dL (32-36); Mean Corpuscular Hgb 29.8 pg (27.0-32.0); Mean Corpuscular Volume 93.9 fL (81-99); Mean Platelet Vol. 9.8 fl (6.2-12.0); Monocyte# 0.58 X10^3/uL; NRBC Flagged by Analyzer 0 % (0-5); Neutrophil # 5.19 X10^3/uL (2.7-7.7); Neutrophil % 62.2 % (47-70); Platelet Count 537 K/mm3 (150-450); RBC Distribution Width CV 12.7 % (11.6-14.6); RBC Distribution Width SD 43.9 fl (35.1-43.9); Red Blood Count 4.13 M/mm3 (4.2-5.4); White Blood Count 8.3 K/mm3 (4.4-11.0)
[2023-07-05 13:20] LABS: ALB/GLOB Ratio 0.9 RATIO (0.9-2.4); AST(SGOT) 17 U/L (15-37); Alanine Aminotransfer ALT/SGPT 23 U/L (13-56); Albumin, Serum 3.4 g/dL (3.2-5.0); Alkaline Phosphatase 93 U/L (45-117); Anion Gap 9 (5-15); BUN 9 mg/dL (7-18); Calcium,Total 8.7 mg/dL (8.5-10.1); Chloride 100 mmol/L (98-107); Cholesterol 205 mg/dL (200); Creatinine, Serum 0.75 mg/dL (0.55-1.02); EST Glomerular Filtration Rate 83 mL/min (>60); Est Glom Filt Rate - Afr Amer 101 mL/min (>60); Globulin 3.9 g/dL (2.2-4.2); Glucose 145 mg/dL (74-106); High Density Lipoprotein 62 mg/dL; Potassium 3.7 mmol/L (3.5-5.1); Protein, Total 7.3 g/dL (6.4-8.2); Sodium Level 137 mmol/L (136-145); Thyroid Stim Hormone (TSH) 0.67 uIU/mL (0.358-3.74); Triglycerides 94 mg/dL; Very Low Density Lipoprotein 19 mg/dL (5-40)
== END | disposition home or self-care (01) ==
LOC: POLAB3 11:03
PROVIDERS: PCP Family Medicine Geriatric Medicine; Visit Provider Family Medicine Geriatric Medicine
DX: I10 Essential (primary) hypertension (principal); E78.5 Hyperlipidemia, unspecified
CPT/HCPCS: 36415; 80053; 80061; 84443; 85025

== ENCOUNTER 2023-08-17 09:30 | Outpatient (RCR) | payer MEDICARE, SELFPAY ==
--- NOTE | 2023-06-26 09:07 | HP.PTEVAL_ITS ---
Patient's Visit Information Visit Information Visit Information: VIJI TESFAYE is a 63 year old F referred to Physical Therapy by Dr. Shabbir Birch DO with a diagnosis of L patellofemoral arthroplasty. Date of Evaluation: 06/23/23 Physical Therapist: Harry Mckeon DPT Visit Plan Frequency: 2x /Week Duration: 8 weeks Plan: Start with progressive ROM, working into full extension and flexion to at least 120deg. Progress quad and glute strengthening. Progressive walking, progressing away from AD. ice and vaso as needed. Subjective Subjective: Pt. is here today for her initial evaluation with diagnosis of L patellofemoral arthroplasty revision. DOS: 06/21/23. Pt. arrives with use of crutches. Pt. reports increased pain today, but believes that her nerve block wore off yesterday. Pt. has been doing her exercises at home, mostly stretching. She denies fever, no calf pain, no difficulty with breathing. Pt. has bandage in place to remove tomorrow per physcian. 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 PMH: Psoriatic arthritis, previous L patellofemoral arthroplasty, L TKA, Lumbar fusion earlier 2022. Pt. reports difficulty with sleeping and general mobility. Icing frequently. Pt. is hopeful to reduce symptoms in order to get back to all previous work and recreational activities without limitations. Pain L knee: Pain Intensity (Out of 10): 4 Pain Intensity Range: 2 and 8 Objective Objective: POSTURE: Pt. has decent posture, lacks TKE in stance on LLE. PALPATION: Pt. has no signs of infection. Pt. has bandage in place. To remove tomorrow. NEURO: normal sensation, normal achillies DTR. Pt. is able to rise on heels and toes without issues. ROM: L knee: 0-5-81deg. Tight HS noted. MMT: L knee: ext 0#, flexon 5#, hip flexion 0#. gait: Pt. can ambulate with FWW with good tolerance. Pt. does have limited TKE during stance phase, lacks good knee flexion during swing. Balance/Special Test Scores Lower Extremity Functional Score: 17 TUG Test Time Seconds: 32 Goals Goal 1:: LTG: Pt. to be I with HEP for ROM and strength of LLE. Goal Time Frame: 4-6 Weeks Goal 2:: STG: Pt. to have increased L knee AROM to 0-0-120deg allowing for increased ability to complete all functional mobility. Goal Time Frame: 2-4 Weeks Goal 3:: LTG: pt. to ambulate without AD with normal gait pattern without increase in symptoms. Goal 4:: LTG: Pt. to be able to negotiate steps with 1 HR with reciprocal pattern. Goal Time Frame: 4-6 Weeks Goal 5:: LTG: Pt. to complete TUG with time less than 10 seconds indicating improved mobility. Goal Time Frame: 4-6 Weeks Goal 6:: LTG: pt. to have equal BLE strength. Goal Time Frame: 4-6 Weeks Rehabilitation Potential Physical Therapy Diagnosis: Pt. has signs and symptoms consistent with L patellofemoral arthroplasty. Pt. has marked hypomobility, weakness, difficulty with walking and increased pain. Pt. would benefit from PT to address the above limitations progressing back to all work and recreational activities without issues. Rehabilitation Potential: Excellent Anticipated Interventions Patient/Client Instruction: Educate patient on: Condition, Plan of Care, Risk Factors and Benefits of Fitness Program For the Purpose of:: To decrease pain Text: Thank you for the opportunity to evaluate your patient. For Medicare and Medicare HMO plans, please review the plan of care and approve it. It will need to be FAXED BACK to us at [phone] for Medicare purposes. For Medicare only, by signing this I certify the plan of care. Please let me know if there are questions or concerns regarding this plan of care. Physician Signature: Date:
--- NOTE | 2023-08-02 11:47 | HP.PTREVAL ---
Re-Evaluation Intro: Dr. Shabbir Birch, DO, It has been my pleasure to treat VIJI TESFAYE over the last 7 visits for L patellofemoral arthroplasty. Please see the progress note below for an update on the physical therapy plan of care! Subjective Subjective: Pt overall doing well, has some L lateral ITB tightness with movement but does not limit her mobility. Wants to RTW soon. Objective Objective/Function: RLE: knee; ext 28.8#, flexion: 37.4# LLE: knee ext: 34.4#, flexion: 38# L knee ROM: 0-1-130deg. Gait: normalized pattern with appropriate knee flex/ext Stairs: normal reciprocal pattern, some ITB tightness/pulling worse with descending Plan Plan Plan: Pt to f/u with physician later this week, possible continuation with gym program Balance/Gait/Functional tests Balance/Special Test Scores Lower Extremity Functional Score: 56 TUG Test Time Seconds: 7.82 Tug Test: <10 sec.=free mobile 6 Minute Walk Test: 1350' with no AD Goals Goals Goal 1:: LTG: Pt. to be I with HEP for ROM and strength of LLE. Goal Time Frame: 4-6 Weeks Goal Progress: Goal Met Goal 2:: STG: Pt. to have increased L knee AROM to 0-0-120deg allowing for increased ability to complete all functional mobility. Goal Time Frame: 2-4 Weeks Goal Progress: Goal Met Goal 3:: LTG: pt. to ambulate without AD with normal gait pattern without increase in symptoms. Goal Progress: Goal Met Goal 4:: LTG: Pt. to be able to negotiate steps with 1 HR with reciprocal pattern. Goal Time Frame: 4-6 Weeks Goal Progress: Goal Met Goal 5:: LTG: Pt. to complete TUG with time less than 10 seconds indicating improved mobility. Goal Time Frame: 4-6 Weeks Goal Progress: Goal Met Goal 6:: LTG: pt. to have equal BLE strength. Goal Time Frame: 4-6 Weeks Goal Progress: Goal Met Anticipated Interventions Anticipated Interventions Patient/Client Instruction: Educate patient on: Condition, Plan of Care, Risk Factors and Benefits of Fitness Program For the Purpose of:: To decrease pain Re-Evaluation Ending Re-evaluation ending: Please do not hesitate to contact me at [phone] by phone or if you have questions or concerns regarding this new plan of care! Sincerely, SORAIDA CamposT
--- NOTE | 2023-10-26 14:17 | HP.PT.NRP ---
Patient Information Patient Information: VIJI TESFAYE was seen in my office for initial evaluation on 06/23/23. The following Plan of Care was established for this patient: POC Established Initial Frequency: 2x /Week Initial Duration: 8 weeks Anticipated Interventions Patient/Client Instruction: Educate patient on: Condition, Plan of Care, Risk Factors and Benefits of Fitness Program For the Purpose of:: To decrease pain Last Seen Last Seen: This patient was last seen in our office 08/17/23. Pertinent comments regarding their Physical therapy will appear below: Pt. was seen for her TKA and subsequent IT band pain. At her last visit patient was going to have an injection the following week. She has not been back to PT and will be DC from PT at this point in time. At this point I will be discontinuing this patient from physical therapy. I would be happy to see this patient again in the future if found appropriate by the physician. Thank you! Harry Mckeon, DPT Balance/Gait/Functional tests Balance/Special Test Scores Lower Extremity Functional Score: 56 TUG Test Time Seconds: 7.82 Tug Test: <10 sec.=free mobile 6 Minute Walk Test: 1350' with no AD
== END 2023-08-17 19:00 | disposition home or self-care (01) ==
LOC: PT 09:30
PROVIDERS: PCP Family Medicine Geriatric Medicine; Referring Provider Orthopaedic Surgery; Visit Provider Orthopaedic Surgery
DX: M25.562 Pain in left knee (principal); Z96.659 Presence of unspecified artificial knee joint
CPT/HCPCS: 97016; 97035; 97110; 97140; 97161; 97164

== ENCOUNTER → 2023-09-18 | Outpatient (CLI) | payer MEDICARE, SELFPAY ==
--- OUTSIDE RECORDS SUMMARY | 2023-09-18 11:53 | XMS RPT_ITS | CCD ---
Author Name Unknown Address [address] [place] [address] Organization [facility] Care Team Providers Care Belt Cutter Name Role Phone TRINIDAD KAY Unavailable Unavailable Nidia Lawler Unavailable Unavailable UNKNOWN Unavailable Unavailable Sai Estrada Unavailable Unavailable Unavailable, Family Physician Unavailable Un available Unavailable, Family Physician Unavailable Un available ZENAIDA MARR Unavailable Unavailable Kris Bernardo MD Primary Care Provider [phone] KRIS BERNARDO Primary Care Unavailable JESUS ALBERTO ROCHE Referring Unavailable AC, KRIS SERGEY Primary Care Unavailable TESTRAYUMIKO MIGUEL Attending Unavailable TESTRALAMONT, YUMIKO Admitting Unavailable Azucena, Fidel Chi Primary Care Provider TESTRALAMONT, YUMIKO Referring Unavailable AC, KRIS SERGEY Primary Care Unavailable TESTRAKE, YUMIKO Referring Unavailable AZUCENA, FIDEL CHI Primary Care Unavailable TESTRAKE, YUMIKO Attending Unavailable AC, KRIS SERGEY Referring Unavailable BERNARDO, KRIS SERGEY Primary Care Unavailable JESUS ALBERTO ROCHE Attending Unavailable CHAITANYA DUNNE Referring Unavailable BERNARDO, KRIS SERGEY Primary Care Unavailable TESTRAKE, YUMIKO Attending Unavailable TESTRAKE, YUMIKO Referring Unavailable BERNARDO, KRIS SERGEY Primary Care Unavailable Kris Bernardo MD Primary Care Provider Allergies Allergy Classification Reported Allergen(s) Allergy Type Date of Onset Reaction(s) Facility (12 sources) Adhesive Tape; Translations: [ADHESIVE TAPE (ROSINS)] Propensity to adverse reactions (disorder) 6 Rash [facility] Other [facility] (11 sources) Bee Sting; Translations: [BEE STING] Propensity to adverse reactions 0 Swelling [facility] Work Phone: Medications Completed/Discontinued Medications Medication Drug Class(es) Dates Sig (Normalized) Sig (Original) amLODIPine 5 mg oral tablet (9 sources) Dihydropyridine Calcium Channel Tresa take 1 tablet by mouth once daily amLODIPine (NORVASC) 5 mg tablet Take 5 mg by mouth once daily. 0 Active Problems Active Problems Problem Classification Problem Date Documented Date Episodic/Chronic Acquired foot deformities (5 sources) Acquired deformity of joint of big toe; Translations: [Other deformities of toe(s) (acquired), unspecified foot] Onset: 05-18-2022 Episodic Anxiety disorders (1 source) Mixed anxiety and depressive disorder; Translations: [Anxiety disorder, unspecified] Onset: 05-30-2022 05-30-2022 Chronic Essential hypertension (9 sources) Benign essential hypertension; Translations: [Essential (primary) hypertension] Onset: 10-17-2007 07-31-2020 Chronic Gastroduodenal ulcer (except hemorrhage) (9 sources) Peptic ulcer; Translations: [Peptic ulcer, site unspecified, unspecified as acute or chronic, without hemorrhage or perforation] Onset: 03-28-2016 03-28-2016 Chronic Menopausal disorders (9 sources) Atrophy of vagina; Translations: [Postmenopausal atrophic vaginitis] Onset: 10-15-2013 10-15-2013 Chronic Nutritional deficiencies (9 sources) Vitamin D deficiency; Translations: [Vitamin D deficiency, unspecified] Onset: 08-08-2017 08-08-2017 Chronic Osteoarthritis (18 sources) Osteoarthritis of knee; Translations: [Osteoarthritis of knee, unspecified] Onset: 09-02-2010 07-19-2021 Chronic Other connective tissue disease (9 sources) History of total knee arthroplasty; Translations: [Presence of unspecified artificial knee joint] Onset: 01-22-2014 Chronic Other disorders of stomach and duodenum (9 sources) Stricture of duodenum; Translations: [Obstruction of duodenum] Onset: 03-28-2016 03-28-2016 Chronic Other inflammatory condition of skin (9 sources) Psoriatic arthritis; Translations: [Arthropathic psoriasis, unspecified] Onset: 08-15-2018 08-15-2018 Chronic Other non-traumatic joint disorders (3 sources) Pain in right knee; Translations: [Pain in joint, lower leg] Onset: 05-02-2022 Episodic Other non-traumatic joint disorders (1 source) Pain in left knee; Translations: [Pain in both knees, unspecified chronicity] Onset: 05-02-2022 Episodic Screening and history of mental health and substance abuse codes (1 source) Ex-smoker; Translations: [Personal history of nicotine dependence] Onset: 05-30-2022 05-30-2022 Episodic Substance-related disorders (1 source) Nicotine dependence, unspecified, uncomplicated; Translations: [Nicotine dependence, unspecified, uncomplicated] Onset: 08-07-2017 Chronic Past or Other Problems Problem Classification Problem Date Documented Da te Episodic/Chronic Abdominal pain (9 sources) Lower abdominal pain; Translations: [Lower abdominal pain, unspecified] Onset: 04-26-2013 04-26-2013 Episodic Complication of device; implant or graft (9 sources) Disorder of prosthetic joint; Translations: [Other specified complication of internal orthopedic prosthetic devices, implants and grafts, initial encounter] Onset: 10-25-2013 10-25-2013 Episodic Other connective tissue disease (2 sources) Pain in right hand; Translations: [Pain in left hand] Onset: 08-07-2017 Episodic Other gastrointestinal disorders (9 sources) History of diverticulitis; Translations: [Personal history of other diseases of the digestive system] Onset: 08-15-2018 08-15-2018 Episodic Other injuries and conditions due to external causes (1 source) Unspecified injury of right wrist, hand and finger(s), subsequent encounter; Translations: [Unspecified injury of right wrist, hand and finger(s), subsequent encounter] Onset: 08-07-2017 Episodic Other non-traumatic joint disorders (2 sources) Effusion, unspecified joint; Translations: [Pain in right wrist] Onset: 08-07-2017 Episodic Other skin disorders (1 source) Disorder of the skin and subcutaneous tissue, unspecified; Translations: [Disorder of the skin and subcutaneous tissue, unspecified] Onset: 08-07-2017 Episodic Spondylosis; intervertebral disc disorders; other back problems (1 source) Low back pain; Translations: [Low back pain] Onset: 08-07-2017 Episodic Results Test Name Value Interpretation Reference Range Facil ity Encounters Encounter Date Encounter Type Care Provider Facility Start: 08-22-2022 Telephone encounter Uriel barr MD Work Phone: Pain Management Procedures Date Procedure Procedure Detail Performing Clinician Start: 05-18-2022 Radex foot complete minimum 3 views Yumiko Welsh Work Phone: Start: 05-02-2022 Radiologic examinati on knee 3 views Jesus Alberto Roche PSYCHOLOGIST MILITARY PERSONNEL.DEICER INSPECTOR PNEUMATIC Work Phone: Start: 08-16-2018 Colonoscopy Chaitanya nova MD Work Phone: Start: 09-16-2015 Mammography Chaitanya nova MD Work Phone: Start: 05-26-2014 Lipid 1996 panel - Serum or Plasma Xr Mob Work Phone: Start: 10-25-2013 H/O: artificial joint Knee emily nt replacement by other means Chaitanya Dunne MD Work Phone: Plan of Treatment Date Care Activity Detail Author Start: 08-16-2028 Colonoscopy COLONOSCOPY [facility] Start: 08-16-2028 COLORECTAL CANCER SCREENING COLORECTAL CANCER SCREENING [facility] Start: 07-31-2023 DIABETES SCREEN DIABETES SCREEN [facility] Start: 07-31-2023 Diabetes Screening Diabetes Screening [facility] Start: 03-24-2023 [facility] Start: 09-10-2022 Pneumococcal vaccination Pneumococcal Vaccine (3 - PCV) [facility] Start: 03-24-2022 Influenza vaccination INFLUENZA (#1) [facility] Start: 2022 RSV Vaccine (1 - 1-dose 60+ series) RSV Vaccine (1 - 1-dose 60+ series) [facility] Start: 07-24-2021 DEPRESSION ASSESSMENT DEPRESSION ASSESSMENT [facility] Start: 11-24-2020 COVID-19 VACCINE (3 - Pfizer risk series) COVID-19 VACCINE (3 - Pfizer risk series) [facility] Start: 05-26-2019 Lipid 1996 panel - Serum or Plasma Lipid Screening [facility] Start: 05-26-2019 LIPID SCREEN LIPID SCREEN [facility] Start: 10-16-2017 Urine microalbumin profile [facility] Start: 06-08-2017 FECAL OCCULT BLOOD FECAL OCCULT BLOOD [facility] Start: 09-16-2016 Mammography [facility] Start: 12-09-2011 PNEUMOCOCCAL (2 - PCV) PNEUMOCOCCAL (2 - PCV) [facility] Start: 2007 COLOGUARD (FIT-DNA) COLOGUARD (FIT-DNA) [facility] Start: [address] COLONOGRAPHY [facility] Start: 2007 SIGMOIDOSCOPY SIGMOIDOSCOPY [facility] Start: 1981 SHINGRIX VACCINE (1 of 2) SHINGRIX VACCINE (1 of 2) [facility] Start: 02-08-1980 ANNUAL PCP TEAM CHRONIC DISEASE VISIT ANNUAL PCP TEAM CHRONIC DISEASE VISIT [facility] Start: 02-08-1980 BP CONTROLLED (<130/80) BP CONTROLLED (<130/80) [facility] Start: 02-08-1980 HIV SCREENING HIV SCREENING [facility] End: 06-17-2023 XR FOOT GENERAL 3V AP/LAT/OBL RIGHT XR FOOT GENERAL 3V AP/LAT/OBL RIGHT Radiology Routine Hallux limitus, acquired, unspecified laterality 1 Occurrences starting 05/18/2022 until 06/17/2023 [facility] Work Phone: Immunizations Immunization Date Immunization Notes Care Provider Saeid majano 10-05-2020 COVID-19 original vaccine, age 12+ yr, monovalent (PFIZER-BIONTDocOnYou - PURPLE TOP) Chaitanya uDnne MD Work Phone: [facility] 05-25-2020 influenza virus vacc ine, unspecified formulation Xr Mob Work Phone: [facility] 12-08-2010 pneumococcal polysaccharide vaccine, 23 valent Chaitanya Dunne MD Work Phone: [facility] 10-17-2007 tetanus toxoid, redu louie diphtheria toxoid, and acellular pertussis vaccine, adsorbed Chaitanya Dunne MD Work Phone: [facility] Work Phone: Payers Date Payer Category Payer Medicare [id number] 2021 Medicare [id number] 2017 Self-pay Social History Date Type Detail Facility Start: 08-15-2018 End: 05-30-2022 Tobacco smoking status NHIS Ex-smoker [facility] End: 07-24-2016 History of tobacco use Current smoker [facility] End: 07-24-2016 History of tobacco use Cigarette Smoker [facility] Start: 08-15-2018 End: 06-28-2020 Cigarettes smoked current (pack per day) - Reported 0.5 [facility] Start: 08-15-2018 Tobacco use and exposure User of smokeless tobacco [facility] Start: 08-31-2021 End: 05-18-2022 Alcohol intake Current drinker of alcohol (finding) [facility] Start: 01-28-2021 History SDOH Alcohol Frequency 3 [facility] Start: 01-28-2021 History SDOH Alcohol Std Drinks 1 [facility] Start: 01-28-2021 History SDOH Social Connections Phone 5 [facility] Start: 01-28-2021 History SDOH Social Connections Get Together 4 [facility] Start: 01-28-2021 History SDOH Physica l Activity DPW 2 [facility] Start: 01-28-2021 Education 12 [facility] Start: 08-07-2017 Tobacco Comment currently on e-cig C [facility] Start: 1960 Sex Assigned At Not on file C [facility] Start: 04-11-2022 End: 05-18-2022 Exposure to SARS-CoV-2 (event) Not sure [facility] Start: 05-30-2022 Tobacco use and exposure Smoke less tobacco non-user [facility] Start: 05-30-2022 Alcohol intake Ex-drinker (finding) [facility] Start: 05-30-2022 Alcohol Comment [facility] Start: 06-28-2020 End: 01-28-2021 Social connection and isolation panel [facility] Do you belong to any clubs or organizations such as moravian groups, unions, fraternal or athletic groups, or school groups? Yes [facility] Are you now , , , , never or living with a partner? [facility] How often to you hav e a drink containing alcohol? 2-4 times a month [facility] How many standard dr inks containing alcohol do you have on a typical day? 1 or 2 [facility] How often do you hav e 6 or more drinks on 1 occasion? Never [facility] Adult Depression Scr eening Assessment 0 [facility] Do you feel stress - tense, restless, nervous, or anxious, or unable to sleep at night because your mind is troubled all the time - these days [OSQ] Only a little [facility] (I/We) worried wheth er (my/our) food would run out before (I/we) got money to buy more. Never true [facility] At any time in the p ast 12 months, were you homeless or living in snf [including now]? No [facility] Medical Equipment Procedure Code Equipment Code Equipment Origin al Text Equipment Identifier Dates Simplex P Bone Cement Radiopaque Full Dose Individual Pack - [id number] Start: 12-07-2010 Ins Tib 3 9mm Kn X3 Cr Trthln - [id number] Start: 12-07-2010 Ins Tib 3 11mm K n X3 Cs Trthln - [id number] Start: 01-21-2014 Comp Pat 10mm 32 mm Asym Trthln - [id number] Start: 12-07-2010 Baseplt Tib Trth ln 3 Prim - [id number] Start: 12-07-2010 Clinical Notes 06-13-2016 to 08-22-2022 Telephone Encounter - Carla Elise RN - 08/22/2022 2:30 PM ESTTelephone Encounter - Rosa Starkey RN - 05/19/2022 11:29 AM EDTTelephone Encounter - Mavis Russell LPN - 05/19/2022 11:22 AM EDT Note Date & Type Note Facility 08-22-2022 Miscellaneous Notes Patient left voicemail 08/22/2022 at 0851 Patient contacted at this time Patient requesting Dr. Garnica's office to fax medical records to [facility] Medicare Patient's MRI is currently being denied and patient filed an expedited appeal Patient requesting records to be faxed to [phone] Case# [id number] Records faxed at this time per patient's request documented in this encounter [facility] 05-19-2022 Miscellaneous Notes Patient notified of surgical date. Follow up scheduled. Surgical confirmation letter sent to patient via [employer] message. Patient called. Verified name and date of . Transferred to nurseMary Anne, in podiatry. Mavsi Russell LPN Left patient Vm to contact office and give surgical date. Patient scheduled for XR guided injection of R 1st MTPJ on 06/06/22 at [facility]. Patient will need a month follow up post injection scheduled when she returns call. documented in this encounter [facility] 05-18-2022 Note HNO ID: [id number] Author: RT Jayro(R) Service: ? Author Type: Technologist Type: Progress Notes Filed: 05/18/2022 5:14 PM Note Text: Radiology Service Progress Note PATIENT NAME: Judy Reagan DATE OF SERVICE: May 18, 2022 TIME: 5:07 PM PATIENT IDENTITY VERIFICATION COMPLETED USING TWO (2) IDENTIFIERS: Name and Date of confirmed by patient verbally. FALL SCREENING: Has the patient had 2 falls in the last year or 1 fall with injury or currently using an Ambulatory Assistive Device (Walker, Cane, Wheelchair, Crutches, etc.)? No PATIENT GENDER DATA: Female. status: : No status: NO. PATIENT RELEVANT IMPLANT DATA REVIEWED: Not Applicable RADIOLOGY DEPARTMENT: General X-ray: Exam(s) Completed: Lower Extremity X-Ray(s): Foot, Right and Wt. Bearing PERIPHERAL IV DATA: Not applicable SIGNED BY: RT Jayro(R) May 18, 2022 5:07 PM [facility] 05-18-2022 Note HNO ID: [id number] Author: Yumiko Welsh Service: ? Author Type: Physician Type: Progress Notes Filed: 05/18/2022 10:56 PM Note Text: Initial Podiatric Office Visit: Chief Complaint: This 62 year old female who presents with chief complaint:right great toe pain HPI Patient presents to clinic for evaluation of right foot. Patient has pain in right great toe She was recently prescribed oral steroid and that did help She did have injection in the past and that did help but she recalls getting the injection was very painful and she recalls difficulty getting the needle into the joint PAIN EVALUATION 05/18/2022 1622 Pain Level: 8 Pain Location: Toe Description: Sore Duration Amount of Time: 2 Duration Units: Weeks Frequency: Continuous Intervention/Comfort measure: Medication steroid, voltaren gel No results found for: HBA1C PCP: Kris Bernardo MD, MD PAST MEDICAL HISTORY Diagnosis Date Abdominal pain, left lower quadrant Adenomyosis Arthritis Osteoarthritis of knee's Diverticulosis of colon (without mention of hemorrhage) Essential hypertension, benign 1997 Generalized anxiety disorder Due to menopausal sx's Current Outpatient Medications Medication Sig traMADol (ULTRAM) 50 mg tablet Take 50 mg by mouth twice daily as needed. Currently not taking while on [place] for pain amLODIPine (NORVASC) 5 mg tablet Take 5 mg by mouth once daily. methotrexate 2.5 mg tablet Take 12.5 mg by mouth every Monday. ergocalciferol, vitamin D2, (DRISDOL) 50,000 unit capsule Take 1 capsule by mouth twice a week. (FOR EXAMPLE ONE CAPSULE ON MONDAY AND ONE ON MONDAY) FOR A TOTAL OF 8 WEEKS, WITH A MEAL rOPINIRole (REQUIP) 0.25 mg tablet Take 2 tablets by mouth daily at bedtime. pantoprazole DR (PROTONIX) 40 mg tablet Take 1 tablet by mouth once daily. venlafaxine (EFFEXOR) 37.5 mg tablet Take 1 tablet by mouth twice daily. ramipril (ALTACE) 10 mg capsule Take 1 capsule by mouth once daily. methylPREDNISolone (MEDROL, AMIRA,) 4 mg Dose-Pack Take 1 tablet by mouth as directed. As directed on package (Patient not taking: Reported on 05/18/2022) No current facility-administered medications for this visit. ALLERGIES Allergen Reactions Adhesive Tape (Lanny* Rash Bee Sting Swelling PAST SURGICAL HISTORY Procedure Laterality Date ANESTH, SECTION 06/04/1996 APPENDECTOMY 04/01/1982 ARTHRP INTERPOS INTERCARPAL/METACARPAL JOINTS Right 08/07/2020 [facility] arthroplasty with LRTI, palmaris longus ARTHRP KNE CONDYLEANDPLATU MEDIALANDLAT COMPARTMENTS 11/2010 Knee replacement, total right COLONOSCOPY FLX DX W/COLLJ SPEC WHEN PFRMD 02/14/2012 Colonoscopy DILATION AND CURETTAGE DXAND/THER NONOBSTETRIC 01/16/1995 1st trimester spontaneous EGD TRANSORAL BIOPSY SINGLE/MULTIPLE 03/22/2016 PUD, duodenal stricture LAPS VAGINAL HYSTERECTOMY UTERUS 250 GM/< 12/18/2001 patient also had hysterscopy with curettage with the Lap PAST SURGICAL HISTORY OF 08/2005 arthroscopic knee surgery by - right knee PAST SURGICAL HISTORY OF Left 2014 partial knee replacement TOTAL ABDOMINAL HYSTERECT W/WO RMVL TUBE OVARY 02/24/2003 Heavy bleeding - Adenomyosis FAMILY HISTORY Problem Relation Age of Onset Breast Cancer Mother Diabetes Mother Arthritis Mother Heart Father at age 51 Social History Tobacco Use Smoking status: Former Packs/day: 0.50 Years: 20.00 Pack years: 10.00 Types: Cigarettes Quit date: 2016 Years since quittin.8 Smokeless tobacco: Current Tobacco comments: currently on e-cig Substance Use Topics Alcohol use: Yes Alcohol/week: 20.0 standard drinks Types: 8 Glasses of Wine (5oz) per week Drug use: No REVIEW OF SYSTEMS GENERAL: Negative for Malaise, significant weight loss, fever RESPIRATORY: Negative for cough, wheezing and shortness of breath CARDIOVASCULAR: Negative for chest pain, leg swelling and palpitations GI: Negative for abdominal discomfort, blood in stools or black stools and change in bowel habits : Negative for dysuria, frequency and incontinence MUSCULOSKELETAL: Negative for joint pain or swelling, back pain, and muscle pain. SKIN: Negative for lesions, rash, and itching. HEMATOLOGY/LYMPHOLOGY Negative for prolonged bleeding, bruising easily, and swollen nodes. ENDOCRINE: Negative for cold or heat intolerance, polyuria, polydipsia and goiter. NEURO: negative Physical Exam: Constitutional: Pt is a well developed 62 year old female who is alert, oriented and cooperative Eyes: Following during examination. No redness or drainage. Respiratory: RR normal and nonlabored. Even breathing. No evidence of distress or shortness of breath. Psychology: Patient is engaged during conversation. Normal affect and mood. Does not appear depressed or anxious during encounter. Vascular: Dorsalis pedis and posterior tibial pulses palpable as b/l Capillary Fill time < 5 seconds to (more content not included)... [facility] 05-18-2022 Note HNO ID: [id number] Author: Rosa Starkey RN Service: ? Author Type: ? Type: Progress Notes Filed: 05/18/2022 10:56 PM Note Text: AMB ROOMING INTAKE FLOWSHEET DATA Risk Screening Do you have concerns about personal safety or safety in the home?: No Pain Pain Level: 8 Pain Location: Toe Description: Sore Duration Amount of Time: 2 Duration Units: Weeks Frequency: Continuous Intervention/Comfort measure: Medication (steroid, voltaren gel) Patient presents with: Right Great Toe - Established Patient, Pain, Swelling Patient c/o pain in joint of R hallux. States it started 2 weeks ago. No injury. States toe was very sore and swollen. In the meantime, patient developed knee pain and was placed on oral steroid. Medication helped relieve some of toe pain. Switched to [place] shoes and states they have also helped. [facility] 05-18-2022 History of Presen t illness Narrative Radiology Service Progress Note PATIENT NAME: Judy Reagan DATE OF SERVICE: May 18, 2022 TIME: 5:07 PM PATIENT IDENTITY VERIFICATION COMPLETED USING TWO (2) IDENTIFIERS: Name and Date of confirmed by patient verbally. FALL SCREENING: Has the patient had 2 falls in the last year or 1 fall with injury or currently using an Ambulatory Assistive Device (Walker, Cane, Wheelchair, Crutches, etc.)? No PATIENT GENDER DATA: Female. status: : No status: NO. PATIENT RELEVANT IMPLANT DATA REVIEWED: Not Applicable RADIOLOGY DEPARTMENT: General X-ray: Exam(s) Completed: Lower Extremity X-Ray(s): Foot, Right and Wt. Bearing PERIPHERAL IV DATA: Not applicable SIGNED BY: RT Jayro(R) May 18, 2022 5:07 PM documented in this encounter [facility] 05-18-2022 History of Presen t illness Narrative Images from the original note were not included. Initial Podiatric Office Visit: Chief Complaint: This 62 year old female who presents with chief complaint:right great toe pain HPI Patient presents to clinic for evaluation of right foot. Patient has pain in right great toe She was recently prescribed oral steroid and that did help She did have injection in the past and that did help but she recalls getting the injection was very painful and she recalls difficulty getting the needle into the joint PAIN EVALUATION 05/18/2022 1622 Pain Level: 8 Pain Location: Toe Description: Sore Duration Amount of Time: 2 Duration Units: Weeks Frequency: Continuous Intervention/Comfort measure: Medication steroid, voltaren gel No results found for: HBA1C PCP: Kris Bernardo MD, MD PAST MEDICAL HISTORY Diagnosis Date Abdominal pain, left lower quadrant Adenomyosis Arthritis Osteoarthritis of knee's Diverticulosis of colon (without mention of hemorrhage) Essential hypertension, benign 1997 Generalized anxiety disorder Due to menopausal sx's Current Outpatient Medications Medication Sig traMADol (ULTRAM) 50 mg tablet Take 50 mg by mouth twice daily as needed. Currently not taking while on [place] for pain amLODIPine (NORVASC) 5 mg tablet Take 5 mg by mouth once daily. methotrexate 2.5 mg tablet Take 12.5 mg by mouth every Monday. ergocalciferol, vitamin D2, (DRISDOL) 50,000 unit capsule Take 1 capsule by mouth twice a week. (FOR EXAMPLE ONE CAPSULE ON MONDAY AND ONE ON MONDAY) FOR A TOTAL OF 8 WEEKS, WITH A MEAL rOPINIRole (REQUIP) 0.25 mg tablet Take 2 tablets by mouth daily at bedtime. pantoprazole DR (PROTONIX) 40 mg tablet Take 1 tablet by mouth once daily. venlafaxine (EFFEXOR) 37.5 mg tablet Take 1 tablet by mouth twice daily. ramipril (ALTACE) 10 mg capsule Take 1 capsule by mouth once daily. methylPREDNISolone (MEDROL, AMIRA,) 4 mg Dose-Pack Take 1 tablet by mouth as directed. As directed on package (Patient not taking: Reported on 05/18/2022) No current facility-administered medications for this visit. ALLERGIES Allergen Reactions Adhesive Tape (Lanny* Rash Bee Sting Swelling PAST SURGICAL HISTORY Procedure Laterality Date ANESTH, SECTION 06/04/1996 APPENDECTOMY 04/01/1982 ARTHRP INTERPOS INTERCARPAL/METACARPAL JOINTS Right 08/07/2020 [facility] arthroplasty with LRTI, palmaris longus ARTHRP KNE CONDYLE&PLATU MEDIAL&LAT COMPARTMENTS 11/2010 Knee replacement, total right COLONOSCOPY FLX DX W/COLLJ SPEC WHEN PFRMD 02/14/2012 Colonoscopy DILATION & CURETTAGE DX&/THER NONOBSTETRIC 01/16/1995 1st trimester spontaneous EGD TRANSORAL BIOPSY SINGLE/MULTIPLE 03/22/2016 PUD, duodenal stricture LAPS VAGINAL HYSTERECTOMY UTERUS 250 GM/< 12/18/2001 patient also had hysterscopy with curettage with the Lap PAST SURGICAL HISTORY OF 08/2005 arthroscopic knee surgery by - right knee PAST SURGICAL HISTORY OF Left 2014 partial knee replacement TOTAL ABDOMINAL HYSTERECT W/WO RMVL TUBE OVARY 02/24/2003 Heavy bleeding - Adenomyosis FAMILY HISTORY Problem Relation Age of Onset Breast Cancer Mother Diabetes Mother Arthritis Mother Heart Father at age 51 Social History Tobacco Use Smoking status: Former Packs/day: 0.50 Years: 20.00 Pack years: 10.00 Types: Cigarettes Quit date: 2016 Years since quittin.8 Smokeless tobacco: Current Tobacco comments: currently on e-cig Substance Use Topics Alcohol use: Yes Alcohol/week: 20.0 standard drinks Types: 8 Glasses of Wine (5oz) per week Drug use: No REVIEW OF SYSTEMS GENERAL: Negative for Malaise, significant weight loss, fever RESPIRATORY: Negative for cough, wheezing and shortness of breath CARDIOVASCULAR: Negative for chest pain, leg swelling and palpitations GI: Negative for abdominal discomfort, blood in stools or black stools and change in bowel habits : Negative for dysuria, frequency and incontinence MUSCULOSKELETAL: Negative for joint pain or swelling, back pain, and muscle pain. SKIN: Negative for lesions, rash, and itching. HEMATOLOGY/LYMPHOLOGY Negative for prolonged bleeding, bruising easily, and swollen nodes. ENDOCRINE: Negative for cold or heat intolerance, polyuria, polydipsia and goiter. NEURO: negative Physical Exam: Constitutional: Pt is a well developed 62 year old female who is alert, oriented and cooperative Eyes: Following during examination. No redness or drainage. Respiratory: RR normal and nonlabored. Even breathing. No evidence of distress or shortness of breath. Psychology: Patient is engaged during conversation. Normal affect and mood. Does not appear depressed or anxious during encounter. Vascular: Dorsalis pedis and posterior tibial pulses palpable as b/l Capillary Fill time < 5 seconds to digits 1-5 b/l Skin temperature warm to warm proximal to distal b/l Hair growth present to digits Neurological: intact light touch/epicritic sensation b/l intact protective sensation no significant neurological deficits Dermatological: Nails 1-5 b/l appear normal. Webspaces clean and dry 1-4 b/l. Skin appears well hydrated and supple. good color, texture, turgor. No open lesions present. No callosities present. Musculoskeletal/Orthopaedic: Patient has pain to palpation of right 1st mtpj Rom of right 1st mtpj is painful She does have swelling in right 1st mtpj Foot type is neutral structurally Radiographs: ordered ASSESSMENT: (M20.5X9) Hallux limitus, acquired, unspecified laterality (primary encounter diagnosis) PLAN: Discussed pain in right 1st mtpj Recommend she continue with firm sole shoe and continue with the remaining oral steroid Will repeat xrays Discussed follow-up injection. From discussion with patient, past injection was difficult to administer and given the swelling on exam, I do foresee issues getting into the joint. I do feel xray guided injection may be more appropriate for her at this time. Will arrange for xray guided injection under light sedation. Yumiko Welsh DPM Podiatry [address] [facility] [address] Dept: [phone] Dept AMB ROOMING INTAKE FLOWSHEET DATA Risk Screening Do you have concerns about personal safety or safety in the home?: No Pain Pain Level: 8 Pain Location: Toe Description: Sore Duration Amount of Time: 2 Duration Units: Weeks Frequency: Continuous Intervention/Comfort measure: Medication (steroid, voltaren gel) Patient presents with: Right Great Toe - Established Patient, Pain, Swelling Patient c/o pain in joint of R hallux. States it started 2 weeks ago. No injury. States toe was very sore and swollen. In the meantime, patient developed knee pain and was placed on oral steroid. Medication helped relieve some of toe pain. Switched to [place] shoes and states they have also helped. documented in this encounter [facility] 05-04-2022 Miscellaneous Notes Called patient and scheduled her an appointment on 05/18/2022 at 4 pm to discuss receiving another injection. Zonia Bernardo LPN Patient called asking if could have another Right big toe injection, d/t swelling and pain. Please call patient back. Thank you. Judy#[phone] documented in this encounter [facility] 05-02-2022 Note HNO ID: [id number] Author: Jesus Alberto Roche APRN.DEICER INSPECTOR PNEUMATIC Service: ? Author Type: Nurse Practitioner Type: Progress Notes Filed: 05/02/2022 1:20 PM Note Text: Orthopaedic Office Note: May 02, 2022 10:08 AM Judy Reagan 62 year old History: Judy is a very pleasant 62 year old female who presents today with bilateral knee pain. She has a history of right total knee arthroplasty done by Dr. Estrada in 2010 and left knee patellofemoral arthroplasty in 2013. She reports doing very well with these up until recently. Subjective: She denies any recent infections, trauma or injuries. She denies any locking or catching symptoms. Pain is at worst 7/10 in the left knee and 5/10 in the right knee. Updated ROS: No changes Updated Exam: Right Lower Extremity: KNEE EXAM: Right: Alignment: Neutral Anterior incision well healed Range of motion is 0 degrees in extension and 120 degrees of flexion. Extension La degrees Pain with ROM: No Effusion: None Tender to the palpation of MCL, PES bursa Pain with patellar compression: No Stability: Anterior/Posterior stable, slight varus/valgus instability but still within normal constraints Hip Exam: flexion to 100+ degrees, full extension, internal/external rotation adequate, and no pain with log roll Neurovascular Status: Sensation Intact, Moves foot and ankle up AND down, and 2+ dorsalis pedis Left Lower Extremity: KNEE EXAM: Left: Alignment: Neutral Range of motion is 0 degrees in extension and 120 degrees of flexion. Extension La degrees Pain with ROM: No Effusion: Slight Tender to the palpation of lateral facet patella Pain with patellar compression: Yes Stability: Anterior/Posterior stable and Varus/Valgus stable Hip Exam: flexion to 100+ degrees, full extension, internal/external rotation adequate and no pain with log roll Neurovascular Status: Sensation Intact and Moves foot and ankle up AND down Updated Imaging: To my interpretation show right total knee arthroplasty in satisfactory position without evidence for loosening or osteolysis. Left knee patellofemoral arthroplasty without evidence for loosening. There is lateralization of the patella and articulation of the patella femoral facet Assessment and Plan: Status post right total knee arthroplasty Status post left knee patellofemoral arthroplasty She has some slight varus/valgus instability in the right knee and she is tender along the MCL. We will get her a hinged knee brace to decrease inflammation and support the MCL. On the left knee, she has lateralization of the patella and there is now articulation of the patella and femur. She is very tender along this area. We will get her into PT to help with patella tracking and VMO strengthening. She can follow up in 2-3 months. I spent a total of approximately 35 minutes on the date of the service which included preparing to see the patient, [id number] patient care, completing clinical documentation, obtaining and/or reviewing separately obtained history, performing a medically appropriate examination, counseling and educating the patient/family/caregiver, ordering medications, tests, or procedures, communicating with other HCPs (not separately reported), independently interpreting results (not separately reported), communicating results to the patient/family/caregiver, and care coordination (not separately reported). Jesus Alberto Roche APRN.[facility] Orthopaedic Surgery [facility] 05-02-2022 Note HNO ID: [id number] Author: KAROLYN Wagner Service: Radiology Author Type: Technologist Type: Progress Notes Filed: 05/02/2022 9:28 AM Note Text: Radiology Service Progress Note PATIENT NAME: Judy Reagan DATE OF SERVICE: May 02, 2022 TIME: 9:28 AM PATIENT IDENTITY VERIFICATION COMPLETED USING TWO (2) IDENTIFIERS: Name and Date of confirmed by patient verbally. FALL SCREENING: Has the patient had 2 falls in the last year or 1 fall with injury or currently using an Ambulatory Assistive Device (Walker, Cane, Wheelchair, Crutches, etc.)? No PATIENT GENDER DATA: Female. status: : No status: NO. PATIENT RELEVANT IMPLANT DATA REVIEWED: Not Applicable RADIOLOGY DEPARTMENT: General X-ray: Exam(s) Completed: Lower Extremity X-Ray(s): Knee, AP / Lat / Merchant Bilateral and Wt. Bearing PERIPHERAL IV DATA: Not applicable SIGNED BY: KAROLYN Wagner May 02, 2022 9:[address] [facility] 05-02-2022 History of Presen t illness Narrative Radiology Service Progress Note PATIENT NAME: Judy Reagan DATE OF SERVICE: May 02, 2022 TIME: 9:28 AM PATIENT IDENTITY VERIFICATION COMPLETED USING TWO (2) IDENTIFIERS: Name and Date of confirmed by patient verbally. FALL SCREENING: Has the patient had 2 falls in the last year or 1 fall with injury or currently using an Ambulatory Assistive Device (Walker, Cane, Wheelchair, Crutches, etc.)? No PATIENT GENDER DATA: Female. status: : No status: NO. PATIENT RELEVANT IMPLANT DATA REVIEWED: Not Applicable RADIOLOGY DEPARTMENT: General X-ray: Exam(s) Completed: Lower Extremity X-Ray(s): Knee, AP / Lat / Merchant Bilateral and Wt. Bearing PERIPHERAL IV DATA: Not applicable SIGNED BY: KAROLYN Wagner May 02, 2022 9:28 AM documented in this encounter [facility] 04-28-2022 Miscellaneous Notes Patient returned call, and is rescheduled. Provider out on 05/05/22, left VM & sent mychart message. Ok to r/s to 05/03/22. Please assist in rescheduling when patient calls back. Thanks documented in this encounter [facility] 04-25-2022 Miscellaneous Notes Patient is scheduled I called and spoke with patient. Message from Dr. Dunne given. Patient verbalized understanding and was transferred to scheduling to reschedule her appointment to appropriate provider. I don't really see patients who need a painful replacement or partial replacement evaluated, as if they were to need something further done, or a revision surgery, I do not do those procedures. I would recommend seeing either Elias Roche or Philip Castillo in our [place] office to begin evaluation or a work up for a painful prior replacement. She should be able to get xrays of both knees to review them together. Chaitanya Dunne MD Patient called. Verified name and date of . Patient has appointment scheduled for May 02, 2022 with X-Rays to be done prior to appointment with Dr. Dunne to discuss Right knee which has had a total knee replacement done. Patient reports having increased pain in left knee which has had a partial replacement done at [facility] several years ago. She is concerned that perhaps the pain is from result of favoring her right knee but would like to verify of no changes. Patient aware likely will need to bee seen separate date/time to discuss left knee and verbalizes understanding but would like to hear from Ortho staff. Please review and advise. documented in this encounter [facility] 08-31-2021 Note HNO ID: [id number] Author: Yumiko Welsh Service: ? Author Type: Physician Type: Progress Notes Filed: 08/31/2021 11:08 AM Note Text: Follow up podiatric office visit for: Chief Complaint: This 61 year old who presents for follow up:right great toe pain. Patient presents to clinic for follow-up right great toe pain. Patient has excrutiating pain in the right great toe joint. She has purchased new shoes but she feels the shoes do not relieve her pain. Patient is not taking any medication, ie nsaids because she has stomach ulcer. She takes tramadol for pain in her back but that does not help with her foot. Patient states that when she walks, she has a god awful pain. She feels the joint is stuck. Patient has history of smoking but no longer smokes. PAIN EVALUATION 08/31/2021 0948 Pain Level: 7 Pain Location: Foot-Right Description: Throbbing;Sharp Duration Amount of Time: ? few Duration Units: Months Frequency: Continuous Intervention/Comfort measure: Cold;Medication No results found for: HBA1C PCP: Kris Bernardo MD, MD PAST MEDICAL HISTORY Diagnosis Date - Abdominal pain, left lower quadrant - Adenomyosis - Arthritis Osteoarthritis of knee's - Diverticulosis of colon (without mention of hemorrhage) - Essential hypertension, benign 1997 - Generalized anxiety disorder Due to menopausal sx's Current Outpatient Medications Medication Sig - traMADol (ULTRAM) 50 mg tablet Take 50 mg by mouth twice daily as needed. Currently not taking while on [place] for pain - amLODIPine (NORVASC) 5 mg tablet Take 5 mg by mouth once daily. - methotrexate 2.5 mg tablet Take 12.5 mg by mouth every Monday. - ergocalciferol, vitamin D2, (DRISDOL) 50,000 unit capsule Take 1 capsule by mouth twice a week. (FOR EXAMPLE ONE CAPSULE ON MONDAY AND ONE ON MONDAY) FOR A TOTAL OF 8 WEEKS, WITH A MEAL - rOPINIRole (REQUIP) 0.25 mg tablet Take 2 tablets by mouth daily at bedtime. - pantoprazole DR (PROTONIX) 40 mg tablet Take 1 tablet by mouth once daily. - venlafaxine (EFFEXOR) 37.5 mg tablet Take 1 tablet by mouth twice daily. - ramipril (ALTACE) 10 mg capsule Take 1 capsule by mouth once daily. No current facility-administered medications for this visit. ALLERGIES Allergen Reactions - Adhesive Tape (Lanny* Rash - Bee Sting Swelling PAST SURGICAL HISTORY Procedure Laterality Date - ANESTH, SECTION 06/04/1996 - APPENDECTOMY 04/01/1982 - ARTHRP INTERPOS INTERCARPAL/METACARPAL JOINTS Right 08/07/2020 [facility] arthroplasty with LRTI, palmaris longus - ARTHRP KNE CONDYLEANDPLATU MEDIALANDLAT COMPARTMENTS 11/2010 Knee replacement, total right - COLONOSCOPY FLX DX W/COLLJ SPEC WHEN PFRMD 02/14/2012 Colonoscopy - DILATION AND CURETTAGE DXAND/THER NONOBSTETRIC 01/16/1995 1st trimester spontaneous - EGD TRANSORAL BIOPSY SINGLE/MULTIPLE 03/22/2016 PUD, duodenal stricture - LAPS VAGINAL HYSTERECTOMY UTERUS 250 GM/< 12/18/2001 patient also had hysterscopy with curettage with the Lap - PAST SURGICAL HISTORY OF 08/2005 arthroscopic knee surgery by - right knee - PAST SURGICAL HISTORY OF Left 2013 partial knee replacement - TOTAL ABDOMINAL HYSTERECT W/WO RMVL TUBE OVARY 02/24/2003 Heavy bleeding - Adenomyosis Physical Exam: Constitutional: Pt is a well developed 61 year old female who is alert, oriented, cooperative and in no apparent distress. OBJECTIVE: NVSI unchanged from previous visit. Dermatological: Nails 1-5 b/l are normal. Webspaces clean and dry 1-4 b/l. Skin appears well hydrated and supple. good color, texture, turgor. No open lesions present. No callosities present. Musculoskeletal/Orthopaedic: Patient has pain to palpation of right first mtpj. rom of right 1st mtpj does reproduce pain xrays of right b/l foot reviewed. Mild to moderate arthritis of b/l 1st mtpj ASSESSMENT: (M20.5X9) Hallux limitus, acquired, unspecified laterality (primary encounter diagnosis) (M76.821) Posterior tibial tendinitis of right lower extremity (M72.2) Plantar fasciitis PLAN: 1. History and physical examination completed today. 2. Discussed arthritis of right first mtpj. Recommend contiued use of good supporitve tennis shoes and tylenol prn. Will order custom orthotics with briscoe extension. Discussed injection today vs doing under xray guide. Discussed risks of injection not limited to infection, pain, swelling, bleeding, tendon injury. Informed patient that given the degree of arthritis, long lasting improvement may or may not be present. She understands this. If injection fails to resolve her pain, consider fusion. We discussed the treatment options. We discussed the risks, benefits, alternatives, potential complications, and personnel to be present. The patient elects to proceed today with injection to the right 1st mtpj Patient was properly identified. The procedure site was marked. A timeout was performed. ? cc o (more content not included)... [facility] documented as of this encounter (statuses as of 04/25/2022) [facility] History of Past illness Narrative* Problem Noted Date Resolved Date Acute GI bleeding 06/13/2016 08/15/2018 Tear of lateral cartilage or meniscus of knee, c urrent 06/05/2012 08/15/2018 Symptomatic menopausal or female climacteric sta barbara 01/04/2012 08/15/2018 Pain in joint, lower leg 09/13/2011 019 Primary localized osteoarthrosis, lower leg /07/201008/15/2018 FAMILY HISTORY OF CARDIOVASC DIS (ISCHEMIC) 09/2208/15/2018 Tobacco use disorder 09/19/2007 08/15/2018 documented as of this encounter (statuses as of 04/27/2022) [facility] History of Past illness Narrative* Problem Noted Date Resolved Date Acute GI bleeding 06/13/2016 08/15/2018 Tear of lateral cartilage or meniscus of knee, c urrent 06/05/2012 08/15/2018 Symptomatic menopausal or female climacteric sta barbara 01/04/2012 08/15/2018 Pain in joint, lower leg 09/13/2011 019 Primary localized osteoarthrosis, lower leg /07/201008/15/2018 FAMILY HISTORY OF CARDIOVASC DIS (ISCHEMIC) 09/2208/15/2018 Tobacco use disorder 09/19/2007 08/15/2018 documented as of this encounter (statuses as of 04/28/2022) [facility] of Past illness Narrative* Problem Noted Date Resolved Date Acute GI bleeding 06/13/2016 08/15/2018 Tear of lateral cartilage or meniscus of knee, c urrent 06/05/2012 08/15/2018 Symptomatic menopausal or female climacteric sta barbara 01/04/2012 08/15/2018 Pain in joint, lower leg 09/13/2011 019 Primary localized osteoarthrosis, lower leg /07/201008/15/2018 FAMILY HISTORY OF CARDIOVASC DIS (ISCHEMIC) 09/2208/15/2018 Tobacco use disorder 09/19/2007 08/15/2018 documented as of this encounter (statuses as of 05/03/2022) [facility] of Past illness Narrative* Problem Noted Date Resolved Date Acute GI bleeding 06/13/2016 08/15/2018 Tear of lateral cartilage or meniscus of knee, c som 06/05/2012 08/15/2018 Symptomatic menopausal or female climacteric sta barbara 01/04/2012 08/15/2018 Pain in joint, lower leg 09/13/2011 019 Primary localized osteoarthrosis, lower leg /07/201008/15/2018 FAMILY HISTORY OF CARDIOVASC DIS (ISCHEMIC) 09/2208/15/2018 Tobacco use disorder 09/19/2007 08/15/2018 documented as of this encounter (statuses as of 05/19/2022) [facility] of Past illness Narrative* Problem Noted Date Resolved Date Acute GI bleeding 06/13/2016 08/15/2018 Tear of lateral cartilage or meniscus of knee, c som 06/05/2012 08/15/2018 Symptomatic menopausal or female climacteric sta barbara 01/04/2012 08/15/2018 Pain in joint, lower leg 09/13/2011 019 Primary localized osteoarthrosis, lower leg 12/2308/15/2018 FAMILY HISTORY OF CARDIOVASC DIS (ISCHEMIC) 09/2208/15/2018 Tobacco use disorder 09/19/2007 08/15/2018 documented as of this encounter (statuses as of 05/19/2022) [facility] of Past illness Narrative* Problem Noted Date Resolved Date Acute GI bleeding 06/13/2016 08/15/2018 Tear of lateral cartilage or meniscus of knee, c som 06/05/2012 08/15/2018 Symptomatic menopausal or female climacteric sta barbara 01/04/2012 08/15/2018 Pain in joint, lower leg 09/13/2011 019 Primary localized osteoarthrosis, lower leg /2 07/201008/15/2018 FAMILY HISTORY OF CARDIOVASC DIS (ISCHEMIC) 09/2208/15/2018 Tobacco use disorder 09/19/2007 08/15/2018 documented as of this encounter (statuses as of 05/19/2022) [facility] of [facility] illness Narrative* Problem Noted Date Resolved Date Acute GI bleeding 06/13/2016 08/15/2018 Tear of lateral cartilage or meniscus of knee, c som 06/05/2012 08/15/2018 Symptomatic menopausal or female climacteric sta barbara 01/04/2012 08/15/2018 Pain in joint, lower leg 09/13/2011 019 Primary localized osteoarthrosis, lower leg 12/2308/15/2018 FAMILY HISTORY OF CARDIOVASC DIS (ISCHEMIC) 09/2208/15/2018 Tobacco use disorder 09/19/2007 08/15/2018 documented as of this encounter (statuses as of 08/22/2022) [facility] of [facility] illness Narrative* Problem Noted Date Diagnosed Date Resolved Date Acute GI bleeding 06/13/2016 08/15/2018 Tear of lateral cartilage or meniscus of knee, current 06/05/2012 08/15/2018 Symptomatic menopausal or fe male climacteric states 01/04/2012 08/15/2018 Pain in joint, lower leg 09/13/2011 Primary localized osteoarthrosis, lower leg 01/11/2011 08/15/2018 FAMILY HISTORY OF CARDIOVASC DIS (ISCHEMIC) 10/17/2007 08/15/2018 Tobacco use disorder 09/19/2007 019 documented as of this encounter (statuses as of 05/28/2023) [facility] [place] [facility] Diagnosis Pain in both knees, unspecified chronicity- [facility] Pain in both knees, unspecified chronicity [facility] Diagnosis Hallux limitus, acquired, unspecified laterality- Primary [facility] Diagnosis Acquired hallux limitus of right foot- Primary Acquired hallux limitus of right foot [facility] Diagnosis Hallux limitus, acquired, unspecified laterality documented in this encounter [facility] for referral (narrative)* Diagnostic Procedure Only (Routine) - Pending Review Specialty Diagnoses / Procedures Referred By Rigo valente Referred To Contact XR IMAGING Diagnoses Pain in both knees, unspecified chronicity Procedures XR KNEE POST OP 3V AP/LAT/MERCHANT BILATERAL RADIOLOGIC EXAMINATION KNEE 3 VIEWS Jesus Alberto Roche APRN.DEICER INSPECTOR PNEUMATIC [address] [place] [address] Xr Imaging Referral ID Status Reason Start Date Expiration Date Visits Requested Visits Authorized [id number] Pending Review Auto-Generat ed Referral 04/27/2022 05/26/2023 1 1 [facility] for referral (narrative)* Diagnostic Procedure Only (Routine) - Closed Specialty Diagnoses / Procedures Referred By Contac t Referred To Contact XR IMAGING Diagnoses Pain in both knees, unspecified chronicity Procedures XR KNEE POST OP 3V AP/LAT/MERCHANT BILATERAL RADIOLOGIC EXAMINATION KNEE 3 VIEWS Jesus Alberto Roche APRN.CNP [address] [facility], [address] [place] [id number] Xr Imaging Referral ID Status Reason Start Date Expiration Date V isits Requested Visits Authorized [id number] Closed Auto-Generate d Referral 04/27/2022 05/26/2023 1 1 [facility] for referral (narrative)* Diagnostic Procedure Only (Routine) - Closed Specialty Diagnoses / Procedures Referred By Contac t Referred To Contact XR IMAGING Diagnoses Hallux limitus, acquired, unspecified laterality Procedures XR FOOT GENERAL 3V AP/LAT/OBL RIGHT RADEX FOOT COMPLETE MINIMUM 3 VIEWS Yumiko [place] [address] Xr Imaging Referral ID Status Reason Start Date Expiration Date V isits Requested Visits Authorized [id number] Closed Auto-Generate d Referral 05/18/2022 06/17/2023 1 1 [facility] for referral (narrative)* Diagnostic Procedure Only (Routine) - Closed Specialty Diagnoses / Procedures Referred By Contac t Referred To Contact XR IMAGING Diagnoses Hallux limitus, acquired, unspecified laterality Procedures XR FOOT GENERAL 3V AP/LAT/OBL RIGHT RADEX FOOT COMPLETE MINIMUM 3 VIEWS Yumiko Welsh [address] [place] [address] [place] [address] Referral ID Status Reason Start Date Expiration Date V isits Requested Visits Authorized [id number] Closed Auto-Generate d Referral 05/18/2022 06/17/2023 1 1 [facility] [facility] for visit Narrative* Diagnostic Procedure Only (Routine) - Closed Specialty Diagnoses / Procedures Referred By Contac t Referred To Contact XR IMAGING Diagnoses Pain in both knees, unspecified chronicity Procedures XR KNEE POST OP 3V AP/LAT/MERCHANT BILATERAL RADIOLOGIC EXAMINATION KNEE 3 VIEWS Jesus Alberto Roche, COREEN.DEICER INSPECTOR PNEUMATIC [address] [facility], [address] [place] [id number] Xr Imaging Referral ID Status Reason Start Date Expiration Date V isits Requested Visits Authorized [id number] Closed Auto-Generate d Referral 04/27/2022 05/26/2023 1 1 [facility] for visit Narrative* Diagnostic Procedure Only (Routine) - Closed Specialty Diagnoses / Procedures Referred By Contac t Referred To Contact XR IMAGING Diagnoses Hallux limitus, acquired, unspecified laterality Procedures XR FOOT GENERAL 3V AP/LAT/OBL RIGHT RADEX FOOT COMPLETE MINIMUM 3 VIEWS Yumiko Welsh [address] [place] [address] [place] [address] Referral ID Status Reason Start Date Expiration Date V isits Requested Visits Authorized [id number] Closed Auto-Generate d Referral 05/18/2022 06/17/2023 1 1 [facility] Summary Purpose Family History No Family History Records FoundNo Family History Records FoundNo Family History Records FoundNo Family History Records FoundNo Family History Records FoundNo Family History Records FoundNo Family History Records Found Advance Directives Documents on File Type Date Recorded Patient Ship'S Pilot Expl anation Advance Directive(s) 01/23/2014 11:01 AM Documents on File Type Date Recorded Patient Ship'S Pilot Expl anation Advance Directive(s) 01/23/2014 11:01 AM Additional Source Comments INFORMATION SOURCE (unrecogn ized section and content) DATE CREATED AUTHOR AUTHOR'S ORGANIZ ATION 01/16/2018 [facility] DATE CREATED AUTHOR AUTHOR'S ORGANIZ ATION 01/19/2018 [facility] DATE CREATED AUTHOR AUTHOR'S ORGANIZ ATION 07/11/2019 [facility] emily Wheelwright DATE CREATED AUTHOR AUTHOR'S ORGANIZ ATION 10/06/2021 [facility] DATE CREATED AUTHOR AUTHOR'S ORGANIZ ATION 06/06/[address] [facility] DATE CREATED AUTHOR AUTHOR'S ORGANIZ ATION 08/23/2022 [facility] Source Comments (unrecognize d section and content) In the event this informatio n is protected by the Federal Confidentiality of Alcohol and Drug Abuse Patient Records regulations: The Federal rules restrict any use of the information to criminally investigate or prosecute any alcohol or drug abuse patient.[facility] the event this information is protected by the Federal Confidentiality of Alcohol and Drug Abuse Patient Records regulations: The Federal rules restrict any use of the information to criminally investigate or prosecute any alcohol or drug abuse patient.[facility] the event this information is protected by the Federal Confidentiality of Alcohol and Drug Abuse Patient Records regulations: The Federal rules restrict any use of the information to criminally investigate or prosecute any alcohol or drug abuse patient.[facility] the event this information is protected by the Federal Confidentiality of Alcohol and Drug Abuse Patient Records regulations: The Federal rules restrict any use of the information to criminally investigate or prosecute any alcohol or drug abuse patient.[facility] the event this information is protected by the Federal Confidentiality of Alcohol and Drug Abuse Patient Records regulations: The Federal rules restrict any use of the information to criminally investigate or prosecute any alcohol or drug abuse patient.[facility] the event this information is protected by the Federal Confidentiality of Alcohol and Drug Abuse Patient Records regulations: The Federal rules restrict any use of the information to criminally investigate or prosecute any alcohol or drug abuse patient.[facility] the event this information is protected by the Federal Confidentiality of Alcohol and Drug Abuse Patient Records regulations: The Federal rules restrict any use of the information to criminally investigate or prosecute any alcohol or drug abuse patient.[facility] the event this information is protected by the Federal Confidentiality of Alcohol and Drug Abuse Patient Records regulations: The Federal rules restrict any use of the information to criminally investigate or prosecute any alcohol or drug abuse patient.[facility] the event this information is protected by the Federal Confidentiality of Alcohol and Drug Abuse Patient Records regulations: The Federal rules restrict any use of the information to criminally investigate or prosecute any alcohol or drug abuse patient.[facility] Reason for Visit (unrecogniz ed section and content) Reason Comments appointment conflict Reason Comments Established Patient Pain Swelling Specialty Diagnoses / Procedures Referred By Rigo valente Referred To Contact [facility] Diagnoses 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, initial encounter (HCC) Pain due to total left knee replacement, initial encounter ([facility]) Procedures CONSULT TO PHYSICAL THERAPY PHYSICAL THERAPY EVALUATION HIGH COMPLEX 45 MINS Jesus Alberto Roche APRN.DEICER INSPECTOR PNEUMATIC [address] [id number] [facility] [address] [place] [id number] Referral ID Status Reason Start Date Expiration Date Visits Requested Visits Authorized [id number] Authorized Auto-Generat ed Referral 2 07/23/2022 99 99 Reason Comments Patient Question Right Big toe Reason Comments Schedule Surgery Care Teams (unrecognized sec tion and content) Belt Cutter Relationship Specialty Start Date End Date Kris Bernardo MD [address] [place] [id number] PCP - General Family Medicine 07/27/20 Belt Cutter Relationship Specialty Start Date End Date Kris Bernardo MD [address] [place] [address] PCP - General Family Medicine 07/27/20 Belt Cutter Relationship Specialty Start Date End Date Kris Bernardo MD [address] [place] [address] PCP - General Family Medicine 07/27/20 Belt Cutter Relationship Specialty Start Date End Date Kris Bernardo MD [address] [place] [address] PCP - General Family Medicine 07/27/20 Belt Cutter Relationship Specialty Start Date End Date Kris Bernardo MD [address] [place] [address] PCP - General [facility] Medicine 07/27/20 Belt Cutter Relationship Specialty Start Date End Date Kris Bernardo MD [address] [place] [address] PCP - [facility] Medicine 07/27/20 Belt Cutter Relationship Specialty Start Date End Date Fidel Mosley Chi [address] [facility] [address] [place], [place] [id number] PCP - General Gerontology 05/23/22 Belt Cutter Relationship Specialty Start Date End Date Kris Bernardo MD [address] [place] [address] PCP - General Family Medicine 07/27/20 05/22/22 FOR RECORDS PERTAINING TO PATIENTS WHO ARE OR HAVE BEEN ENROLLED IN A CHEMICAL DEPENDENCY/SUBSTANCEABUSE PROGRAM, SOME INFORMATION MAY BE OMITTED. This clinical summary was aggregated from multiple sources. Caution should be exercised in using it in the provision of clinical care. This summary normalizes information from multiple sources, and as a consequence, information in this document may materially change the coding, format and clinical context of patient data. In addition, data may be omitted in some cases. CLINICAL DECISIONS SHOULD BE BASED ON THE PRIMARY CLINICAL RECORDS. [facility] [employer] [facility]. provides no warranty or guarantee of the accuracy or completeness of information in this document.
[2023-09-18 11:59] LABS: Absolute Lymphocyte Count 1.91 X10^3/uL (0.83-4.51); Absolute Neutrophil Count 3.4 X10^3/uL (2.0-7.7); Basophil# 0.05 X10^3/uL; Basophil% 0.8 % (0-1); Eosinophil# 0.11 X10^3/uL; Eosinophils% 1.8 % (0-5); Hematocrit 43.9 % (37-47); Hemoglobin 13.9 g/dL (12.0-15.0); Lymphocyte # 1.91 X10^3/ul (0.83-4.51); Lymphocyte % 31.3 % (19-41); Mean Corp Hgb Conc 31.7 g/dL (32-36); Mean Corpuscular Volume 91.6 fL (81-99); Mean Platelet Vol. 10.3 fl (6.2-12.0); Monocyte# 0.63 X10^3/uL; Monocyte% 10.3 % (0-10); NRBC Flagged by Analyzer 0 % (0-5); Neutrophil # 3.37 X10^3/uL (2.7-7.7); Neutrophil % 55.3 % (47-70); Platelet Count 324 K/mm3 (150-450); RBC Distribution Width CV 12.9 % (11.6-14.6); RBC Distribution Width SD 43.3 fl (35.1-43.9); Red Blood Count 4.79 M/mm3 (4.2-5.4); White Blood Count 6.1 K/mm3 (4.4-11.0)
[2023-09-18 12:22] LABS: AST(SGOT) 20 U/L (15-37); Alanine Aminotransfer ALT/SGPT 33 U/L (13-56); Alkaline Phosphatase 115 U/L (45-117); Anion Gap 7 (5-15); BUN 15 mg/dL (7-18); BUN/Creat Ratio 19.8 RATIO (10-20); Calcium,Total 9.5 mg/dL (8.5-10.1); Chloride 105 mmol/L (98-107); Creatinine, Serum 0.76 mg/dL (0.55-1.02); EST Glomerular Filtration Rate 83 mL/min (>60); Est Glom Filt Rate - Afr Amer 100 mL/min (>60); Globulin 3.9 g/dL (2.2-4.2); Glucose 103 mg/dL (74-106); Potassium 3.7 mmol/L (3.5-5.1); Protein, Total 7.9 g/dL (6.4-8.2); Sodium Level 137 mmol/L (136-145); Thyroid Stim Hormone (TSH) 1.21 uIU/mL (0.358-3.74)
== END | disposition home or self-care (01) ==
LOC: POLAB3 10:34
PROVIDERS: PCP Family Medicine Geriatric Medicine; Visit Provider Family Medicine Geriatric Medicine
DX: I10 Essential (primary) hypertension (principal)
CPT/HCPCS: 36415; 80053; 84443; 85025

== ENCOUNTER → 2023-09-21 | Outpatient (CLI) | payer MEDICARE, SELFPAY | END | disposition home or self-care (01) | PROVIDERS: PCP Family Medicine Geriatric Medicine; Referring Provider Family Medicine Geriatric Medicine; Visit Provider Family Medicine Geriatric Medicine | DX: R19.7 Diarrhea, unspecified (principal) | CPT/HCPCS: 82274; 83630; 87177; 87209; 87493 ==

== ENCOUNTER → 2023-09-21 | Outpatient (CLI) | payer MEDICARE, SELFPAY ==
--- NOTE | 2023-09-21 16:18 | CT_ITS ---
EXAM: CT ABDOMEN AND PELVIS WITH INTRAVENOUS CONTRAST CLINICAL INDICATION: ABD PAIN TECHNIQUE: Helically acquired images were obtained of the abdomen and pelvis with intravenous contrast. This CT exam was performed using one or more of the following dose reduction techniques: automated exposure control, adjustment of the mA and/or kV according to patient size, and/or use of iterative reconstruction technique. CONTRAST: Oral and amp; IV Gastrografin and amp; 100mL Isovue-370 COMPARISON: 01/03/2018 FINDINGS: LOWER THORAX: Unremarkable. Lung bases are clear. No cardiomegaly. No significant pericardial effusion. ABDOMEN: LIVER: Unremarkable. Homogeneous. No focal mass. GALLBLADDER AND BILE DUCTS: Unremarkable. No calcified gallstones. No gallbladder distention or wall edema. No intra- or extrahepatic biliary ductal dilation. PANCREAS: Unremarkable. No focal cystic or solid mass. SPLEEN: Unremarkable. Normal size without focal cystic or solid mass. ADRENALS: Unremarkable. No nodules. KIDNEYS AND URETERS: Unremarkable. Normal renal size and position. No hydronephrosis. STOMACH AND BOWEL: There are diverticula seen in the descending colon. There is wall thickening of the proximal descending colon with minimal surrounding inflammation. There is also mild wall thickening seen within diverticula in the distal transverse colon. No stomach or bowel distention. PELVIS: APPENDIX: No evidence of acute appendicitis. BLADDER: Unremarkable. REPRODUCTIVE: Unremarkable as visualized. No mass. ABDOMEN and PELVIS: INTRAPERITONEAL SPACE: Unremarkable. No ascites or other fluid collection. No free air. BONES/JOINTS: There is hardware from a fusion of L4 and L5. No suspicious lytic or blastic abnormality. SOFT TISSUES: Unremarkable. No discrete abdominal or pelvic wall hernia. VASCULATURE: Unremarkable. Abdominal aorta is non-dilated. LYMPH NODES: Unremarkable. No enlarged lymph nodes. CT/Abdomen/Pelvis WITH Contrast IMPRESSION: Diverticula of the proximal descending colon with wall thickening and minimal surrounding inflammation which may represent diverticulitis. There is also mild thickening of the wall the distal transverse colon with diverticula which may represent diverticulitis. There is no abscess or perforation. Electronically Signed: Carlos Vital MD at 19:39 EST ,
== END | disposition home or self-care (01) ==
LOC: CT 16:17
PROVIDERS: PCP Family Medicine Geriatric Medicine; Referring Provider Family Medicine Geriatric Medicine; Visit Provider Family Medicine Geriatric Medicine
DX: E78.5 Hyperlipidemia, unspecified (principal); R10.9 Unspecified abdominal pain
CPT/HCPCS: 74177; Q9967

== ENCOUNTER → 2023-09-21 | Outpatient (CLI) | payer MEDICARE, SELFPAY ==
[2023-09-21 16:31] LABS: Absolute Lymphocyte Count 1.44 X10^3/uL (0.83-4.51); Absolute Neutrophil Count 8.3 X10^3/uL (2.0-7.7); Basophil# 0.05 X10^3/uL; Basophil% 0.5 % (0-1); Eosinophil# 0.05 X10^3/uL; Eosinophils% 0.5 % (0-5); Hemoglobin 13.5 g/dL (12.0-15.0); Lymphocyte # 1.44 X10^3/ul (0.83-4.51); Lymphocyte % 13.4 % (19-41); Mean Corp Hgb Conc 32.1 g/dL (32-36); Mean Corpuscular Hgb 29.1 pg (27.0-32.0); Mean Corpuscular Volume 90.5 fL (81-99); Mean Platelet Vol. 9.9 fl (6.2-12.0); Monocyte# 0.86 X10^3/uL; NRBC Flagged by Analyzer 0 % (0-5); Neutrophil % 77.3 % (47-70); Platelet Count 306 K/mm3 (150-450); RBC Distribution Width CV 12.8 % (11.6-14.6); RBC Distribution Width SD 42.5 fl (35.1-43.9); Red Blood Count 4.64 M/mm3 (4.2-5.4); White Blood Count 10.7 K/mm3 (4.4-11.0)
[2023-09-21 16:53] LABS: ALB/GLOB Ratio 1.2 RATIO (0.9-2.4); AST(SGOT) 19 U/L (15-37); Alanine Aminotransfer ALT/SGPT 36 U/L (13-56); Albumin, Serum 4.1 g/dL (3.2-5.0); Alkaline Phosphatase 110 U/L (45-117); Anion Gap 7 (5-15); BUN 11 mg/dL (7-18); Calcium,Total 9.1 mg/dL (8.5-10.1); Chloride 101 mmol/L (98-107); Creatinine, Serum 0.73 mg/dL (0.55-1.02); EST Glomerular Filtration Rate 86 mL/min (>60); Est Glom Filt Rate - Afr Amer 104 mL/min (>60); Globulin 3.4 g/dL (2.2-4.2); Glucose 99 mg/dL (74-106); Potassium 3.6 mmol/L (3.5-5.1); Protein, Total 7.5 g/dL (6.4-8.2); Sodium Level 135 mmol/L (136-145)
== END | disposition home or self-care (01) ==
LOC: POLAB3 15:58
PROVIDERS: PCP Family Medicine Geriatric Medicine; Visit Provider Family Medicine Geriatric Medicine
DX: E78.5 Hyperlipidemia, unspecified (principal)
CPT/HCPCS: 36415; 80053; 85025

== ENCOUNTER 2023-09-24 00:52 | Inpatient (IN) | payer MEDICARE, SELFPAY ==
[2023-09-24] VITALS (13 sets, daily range): BP systolic 133–181; BP diastolic 76–105; PULSE 63–96; RESP 16–18; TEMP 36.3–37.1; O2SAT 92–100; BMI 23.7; BMI 28.3
[2023-09-24] MEDS: 0.9% Normal Saline (1000mL) 1,000 ML 999 ML IV (01:14)
[2023-09-24] MEDS: metroNIDAZOLE 500 MG/100 ML BAG 100 MG IV ×4 (01:14→21:21)
[2023-09-24] MEDS: Morphine 4 MG/ML Syringe IV (01:16)
[2023-09-24] MEDS: Ondansetron 4 MG/2 ML Vial IV (01:17)
--- OUTSIDE RECORDS SUMMARY | 2023-09-24 01:26 | XMS RPT_ITS | CCD ---
Author Name Unknown Address [address] [place] [address] Organization [facility] Care Team Providers Care Auto Parker Name Role Phone TRINIDAD KAY Unavailable Unavailable Nidia Lawler Unavailable Unavailable UNKNOWN Unavailable Unavailable Sai Estrada Unavailable Unavailable Unavailable, Family Physician Unavailable Un available Unavailable, Family Physician Unavailable Un available ZENAIDA MARR Unavailable Unavailable Kris Bernardo MD Primary Care Provider KRIS BERNARDO Primary Care Unavailable JESUS ALBERTO ROCHE Referring Unavailable AC, KRIS SERGEY Primary Care Unavailable TESTRAYUMIKO MIGUEL Attending Unavailable TESTRALAMONT, YUMIKO Admitting Unavailable Azucena, Fidel Chi Primary Care Provider [phone] TESTRALAMONT, YUMIKO Referring Unavailable AC, KRIS SERGEY [...] Propensity to adverse reactions (disorder) 6 Rash [facility] Other [place] [facility] (11 sources) Bee Sting; Translations: [BEE STING] Propensity to adverse reactions 0 Swelling [facility] Work Phone: Medications Completed/Discontinued Medications Medication [...] on knee 3 views Jesus Alberto Roche SORT LINE.ROAD MACHINERY INSPECTOR Work Phone: Start: 08-16-2018 Colonoscopy Chaitanya nova MD Work Phone: Start: 09-16-2015 Mammography Chaitanya nova MD Work Phone: Start: 05-26-2014 Lipid 1996 panel - Serum or Plasma Xr Mob Work Phone: Start: 10-25-2013 H/O: artificial joint Knee emily nt replacement by other means Chaitanya Dunne MD Work Phone: Plan of Treatment Date Care Activity Detail Author Start: 08-16-2028 Colonoscopy COLONOSCOPY [facility] Start: 08-16-2028 COLORECTAL CANCER SCREENING COLORECTAL CANCER SCREENING [facility] Start: 07-31-2023 DIABETES SCREEN DIABETES SCREEN [facility] Start: 07-31-2023 Diabetes Screening Diabetes Screening [facility] Start: 03-24-2023 Influenza [facility] Start: 09-10-2022 Pneumococcal vaccination Pneumococcal Vaccine (3 - PCV) [facility] Start: 03-24-2022 Influenza vaccination INFLUENZA (#1) [facility] Start: 2022 RSV Vaccine (1 - 1-dose 60+ series) RSV Vaccine (1 - 1-dose 60+ series) [facility] Start: 07-24-2021 DEPRESSION ASSESSMENT DEPRESSION ASSESSMENT [facility] Start: 11-24-2020 COVID-19 VACCINE (3 - Pfizer risk series) COVID-19 VACCINE (3 - Pfizer risk series) [facility] Start: 05-26-2019 Lipid 1996 panel - Serum or Plasma Lipid Screening [facility] Start: 05-26-2019 LIPID SCREEN LIPID SCREEN [facility] Start: 10-16-2017 Urine microalbumin profile [facility] Start: 06-08-2017 FECAL OCCULT BLOOD FECAL OCCULT BLOOD [facility] Start: 09-16-2016 Mammography [facility] Start: 12-09-2011 PNEUMOCOCCAL (2 - PCV) PNEUMOCOCCAL (2 - PCV) [facility] Start: 2007 COLOGUARD (FIT-DNA) COLOGUARD (FIT-DNA) [facility] Start: [address] COLONOGRAPHY [facility] Start: 2007 SIGMOIDOSCOPY SIGMOIDOSCOPY [facility] Start: 1981 SHINGRIX VACCINE (1 of 2) SHINGRIX VACCINE (1 of 2) [facility] Start: 02-08-1980 ANNUAL PCP TEAM CHRONIC DISEASE VISIT ANNUAL PCP TEAM CHRONIC DISEASE VISIT [facility] Start: 02-08-1980 BP CONTROLLED (<130/80) BP CONTROLLED (<130/80) [facility] Start: 02-08-1980 HIV SCREENING HIV SCREENING [facility] End: 06-17-2023 XR FOOT GENERAL 3V AP/LAT/OBL RIGHT XR FOOT GENERAL 3V AP/LAT/OBL RIGHT Radiology Routine Hallux limitus, acquired, unspecified laterality 1 Occurrences starting 05/18/2022 until 06/17/2023 [facility] Work Phone: Immunizations Immunization Date Immunization Notes Care Provider Saeid majano 10-05-2020 COVID-19 original vaccine, age 12+ yr, monovalent (PFIZER-BIONTNeutral Space - PURPLE TOP) Chaitanya Dunne MD Work Phone: [facility] 05-25-2020 influenza virus vacc ine, unspecified formulation Xr Mob Work Phone: [facility] 12-08-2010 pneumococcal polysaccharide vaccine, 23 valent Chaitanya Dunne MD Work Phone: [facility] 10-17-2007 tetanus toxoid, redu louie diphtheria toxoid, and acellular pertussis vaccine, adsorbed Chaitanya Dunne MD Work Phone: [facility] Work Phone: Payers Date Payer Category Payer Medicare [id number] 2021 Medicare [id number] 2017 Self-pay Social History Date Type Detail Facility Start: 08-15-2018 End: 05-30-2022 Tobacco smoking status NHIS Ex-smoker [facility] End: 07-24-2016 History of tobacco use Current smoker [facility] End: 07-24-2016 History of tobacco use Cigarette Smoker [facility] Start: 08-15-2018 End: 06-28-2020 Cigarettes smoked current (pack per day) - Reported 0.5 [facility] Start: 08-15-2018 Tobacco use and exposure User of smokeless tobacco [facility] Start: 08-31-2021 End: 05-18-2022 Alcohol intake Current drinker of alcohol (finding) [facility] Start: 01-28-2021 History SDOH Alcohol Frequency 3 [facility] Start: 01-28-2021 History SDOH Alcohol Std Drinks 1 [facility] Start: 01-28-2021 History SDOH Social Connections Phone 5 [facility] Start: 01-28-2021 History SDOH Social Connections Get Together 4 [facility] Start: 01-28-2021 History SDOH Physica l Activity DPW 2 [facility] Start: 01-28-2021 Education 12 [facility] Start: 08-07-2017 Tobacco Comment currently on e-cig C [facility] Start: 1960 Sex Assigned At Not on file C [facility] Start: 04-11-2022 End: 05-18-2022 Exposure to SARS-CoV-2 (event) Not sure [facility] Start: 05-30-2022 Tobacco use and exposure Smoke less tobacco non-user [facility] Start: 05-30-2022 Alcohol intake Ex-drinker (finding) [facility] Start: 05-30-2022 Alcohol Comment Socially [facility] Start: 06-28-2020 End: 01-28-2021 Social connection and isolation panel [facility] Do you belong to any clubs or organizations such as episcopalian groups, unions, fraternal or athletic groups, or school groups? Yes [facility] Are you now , , , , never or living with a partner? [facility] How often to you hav e a drink containing alcohol? 2-4 times a month [facility] How many standard dr inks containing alcohol do you have on a typical day? 1 or 2 [facility] How often do you hav e 6 or more drinks on 1 occasion? Never [facility] Adult Depression Scr eening Assessment 0 [facility] Do you feel stress - tense, restless, nervous, or anxious, or unable to sleep at night because your mind is troubled all the time - these days [OSQ] Only a little [facility] (I/We) worried wheth er (my/our) food would run out before (I/we) got money to buy more. Never true [facility] At any time in the p ast 12 months, were you homeless or living in jail [including now]? No [facility] Medical Equipment Procedure Code Equipment Code Equipment Origin al Text Equipment Identifier Dates Simplex P Bone Cement Radiopaque Full Dose Individual Pack - [id number] Start: 12-07-2010 Ins Tib 3 9mm Kn X3 Cr Trthln - [id number] Start: 12-07-2010 Ins Tib 3 11mm K n X3 Cs Trthln - [id number] Start: 01-21-2014 Comp Pat 10mm 32 mm Asym Trthln - [id number] Start: 12-07-2010 Baseplt Tib Trth ln 3 Prim - [id number] Start: 12-07-2010 Clinical Notes 06-13-2016 to [...] Garnica's office to fax medical records to [facility] Medicare Patient's MRI is currently being denied and patient filed an expedited appeal Patient requesting records to be faxed to [phone] Case# [id number] Records faxed at this time per patient's request documented in this encounter [facility] 05-19-2022 Miscellaneous Notes Patient notified of surgical date. Follow up scheduled. Surgical confirmation letter sent to patient via [employer] message. Patient called. Verified name and date of . Transferred to nurseMary Anne, in podiatry. Mavis Russell LPN Left patient Vm to contact office and give surgical date. Patient scheduled for XR guided injection of R 1st MTPJ on 06/06/22 at [facility]. Patient will need a month follow up post injection scheduled when she returns call. documented in this encounter [facility] 05-18-2022 Note HNO ID: [id number] Author: RT Jayro(R) Service: ? Author Type: Technologist Type: Progress Notes Filed: 05/18/2022 5:14 PM Note Text: Radiology Service Progress Note PATIENT NAME: Judy Raegan DATE OF SERVICE: May 18, 2022 TIME: [...] RT Jayro(R) May 18, 2022 5:07 PM [facility] 05-18-2022 Note HNO ID: [id number] Author: Yumiko Wlesh Service: ? Author Type: Physician Type: Progress [...] as needed. Currently not taking while on Sundown for pain amLODIPine (NORVASC) 5 mg tablet [...] 5 seconds to (more content not included)... [facility] 05-18-2022 Note HNO ID: [id number] Author: Rosa Starkey RN Service: ? Author [...] shoes and states they have also helped. [facility] 05-18-2022 History of Presen t illness [...] 2022 5:07 PM documented in this encounter [facility] 05-18-2022 History of Presen t illness [...] as needed. Currently not taking while on Sundown for pain amLODIPine (NORVASC) 5 mg tablet [...] Yumiko Welsh DPM Podiatry [address] [facility] [address] Dept: [phone] Dept AMB ROOMING INTAKE FLOWSHEET DATA Risk [...] have also helped. documented in this encounter [facility] 05-04-2022 Miscellaneous Notes Called patient and scheduled her an appointment on 05/18/2022 at 4 pm to discuss receiving another injection. Zonia Bernardo LPN Patient called asking if could have another Right big toe injection, d/t swelling and pain. Please call patient back. Thank you. Judy#[phone] documented in this encounter [facility] 05-02-2022 Note HNO ID: [id number] Author: Jesus Alberto Roche APRN.ROAD MACHINERY INSPECTOR Service: ? Author Type: Nurse Practitioner Type: [...] which included preparing to see the patient, [id number] patient care, completing clinical documentation, obtaining and/or reviewing separately obtained history, performing a medically appropriate examination, counseling and educating the patient/family/caregiver, ordering medications, tests, or procedures, communicating with other HCPs (not separately reported), independently interpreting results (not separately reported), communicating results to the patient/family/caregiver, and care coordination (not separately reported). Jesus Alberto Rohce APRN.[facility] Orthopaedic Surgery [facility] 05-02-2022 Note HNO ID: [id number] Author: KAROLYN Wagner Service: Radiology Author Type: [...] KAROLYN Wagner May 02, 2022 9:28 AM [facility] 05-02-2022 History of Presen t illness Narrative [...] 2022 9:28 AM documented in this encounter [facility] 04-28-2022 Miscellaneous Notes Patient returned call, and is rescheduled. Provider out on 05/05/22, left VM & sent mychart message. Ok to r/s to 05/03/22. Please assist in rescheduling when patient calls back. Thanks documented in this encounter [facility] 04-25-2022 Miscellaneous Notes Patient is scheduled [...] has had a partial replacement done at [facility] several years ago. She is concerned that perhaps the pain is from result of favoring her right knee but would like to verify of no changes. Patient aware likely will need to bee seen separate date/time to discuss left knee and verbalizes understanding but would like to hear from Ortho staff. Please review and advise. documented in this encounter [facility] 08-31-2021 Note HNO ID: [id number] Author: Yumiko Welsh Service: ? Author Type: [...] as needed. Currently not taking while on Sundown for pain - amLODIPine (NORVASC) 5 mg [...] ? cc o (more content not included)... [facility] documented as of this encounter (statuses as of 04/25/2022) [facility]11-[facility]2016 History of Past illness Narrative* Problem [...] of this encounter (statuses as of 04/27/2022) [facility] History of Past illness Narrative* Problem [...] of this encounter (statuses as of 04/28/2022) [facility] History of Past illness Narrative* Problem [...] of this encounter (statuses as of 05/03/2022) [facility] History of Past illness Narrative* Problem [...] of this encounter (statuses as of 05/19/2022) [facility] History of Past illness Narrative* Problem [...] of this encounter (statuses as of 05/19/2022) [facility] History of Past illness Narrative* Problem [...] of this encounter (statuses as of 05/19/2022) [facility] History of Past illness Narrative* Problem [...] of this encounter (statuses as of 08/22/2022) [facility] History of Past illness Narrative* Problem [...] of this encounter (statuses as of 05/28/2023) [facility] Pain in both knees, unspecified [...] acquired, unspecified laterality documented in this encounter [facility] for referral (narrative)* Diagnostic Procedure Only (Routine) - Pending Review Specialty Diagnoses / Procedures Referred By Rigo valente Referred To Contact XR IMAGING Diagnoses Pain in both knees, unspecified chronicity Procedures XR KNEE POST OP 3V AP/LAT/MERCHANT BILATERAL RADIOLOGIC EXAMINATION KNEE 3 VIEWS Jesus Alberto Roche APRN.ROAD MACHINERY INSPECTOR [address] [place] [address] Xr Imaging Referral ID Status Reason Start Date Expiration Date Visits Requested Visits Authorized [id number] Pending Review Auto-Generat ed Referral 04/27/2022 05/26/2023 1 1 [facility] for referral (narrative)* Diagnostic Procedure Only (Routine) - Closed Specialty Diagnoses / Procedures Referred By Contac t Referred To Contact XR IMAGING Diagnoses Pain in both knees, unspecified chronicity Procedures XR KNEE POST OP 3V AP/LAT/MERCHANT BILATERAL RADIOLOGIC EXAMINATION KNEE 3 VIEWS Jesus Alberto Roche APRN.CNP [address] [facility], [address] [place] [id number] X[facility] Imaging Referral ID Status Reason Start Date Expiration Date V isits Requested Visits Authorized [id number] Closed Auto-Generate d Referral 04/27/2022 05/26/2023 1 1 [facility] for referral (narrative)* Diagnostic Procedure Only (Routine) - Closed Specialty Diagnoses / Procedures Referred By Contac t Referred To Contact XR IMAGING Diagnoses Hallux limitus, acquired, unspecified laterality Procedures XR FOOT GENERAL 3V AP/LAT/OBL RIGHT RADEX FOOT COMPLETE MINIMUM 3 VIEWS Yumiko [place] [address] Xr Imaging Referral ID Status Reason Start Date Expiration Date V isits Requested Visits Authorized [id number] Closed Auto-Generate d Referral 05/18/2022 06/17/2023 1 1 [facility] for referral (narrative)* Diagnostic Procedure Only (Routine) - Closed Specialty Diagnoses / Procedures Referred By Contac t Referred To Contact XR IMAGING Diagnoses Hallux limitus, acquired, unspecified laterality Procedures XR FOOT GENERAL 3V AP/LAT/OBL RIGHT RADEX FOOT COMPLETE MINIMUM 3 VIEWS Yumiko Welsh [address] [place] [address] [place] [address] Referral ID Status Reason Start Date Expiration Date V isits Requested Visits Authorized [id number] Closed Auto-Generate d Referral 05/18/2022 06/17/2023 1 1 [facility] for visit Narrative* Diagnostic Procedure Only (Routine) - Closed Specialty Diagnoses / Procedures Referred By Contac t Referred To Contact XR IMAGING Diagnoses Pain in both knees, unspecified chronicity Procedures XR KNEE POST OP 3V AP/LAT/MERCHANT BILATERAL RADIOLOGIC EXAMINATION KNEE 3 VIEWS Jesus Alberto Roche, COREEN.ROAD MACHINERY INSPECTOR [address] [facility], [address] [place] [id number] Xr Imaging Referral ID Status Reason Start Date Expiration Date V isits Requested Visits Authorized [id number] Closed Auto-Generate d Referral 04/27/2022 05/26/2023 1 1 [facility] for visit Narrative* Diagnostic Procedure Only (Routine) - Closed Specialty Diagnoses / Procedures Referred By Contac t Referred To Contact XR IMAGING Diagnoses Hallux limitus, acquired, unspecified laterality Procedures XR FOOT GENERAL 3V AP/LAT/OBL RIGHT RADEX FOOT COMPLETE MINIMUM 3 VIEWS Yumiko Welsh [address] [place] [address] [place] [address] Referral ID Status Reason Start Date Expiration Date V isits Requested Visits Authorized [id number] Closed Auto-Generate d Referral 05/18/2022 06/17/2023 1 1 [facility] Summary Purpose Family History No Family History Records FoundNo Family History Records FoundNo Family History Records FoundNo Family History Records FoundNo Family History Records FoundNo Family History Records FoundNo Family History Records Found Advance Directives Documents on File Type Date Recorded Patient Medical Chemist Expl anation Advance Directive(s) 01/23/2014 11:01 AM Documents on File Type Date Recorded Patient Medical Chemist Expl anation Advance Directive(s) 01/23/2014 11:01 AM Additional Source Comments INFORMATION SOURCE (unrecogn ized section and content) DATE CREATED AUTHOR AUTHOR'S ORGANIZ ATION 01/16/2018 [facility] DATE CREATED AUTHOR AUTHOR'S ORGANIZ ATION 01/19/2018 [facility] DATE CREATED AUTHOR AUTHOR'S ORGANIZ ATION 07/11/2019 [facility] emily [place] DATE CREATED AUTHOR AUTHOR'S ORGANIZ ATION 10/06/2021 [facility] DATE CREATED AUTHOR AUTHOR'S ORGANIZ ATION 06/06/2022 [facility] DATE CREATED AUTHOR AUTHOR'S ORGANIZ ATION 08/23/2022 [facility] Source Comments (unrecognize d section and content) In the event this informatio n is protected by the Federal Confidentiality of Alcohol and Drug Abuse Patient Records regulations: The Federal rules restrict any use of the information to criminally investigate or prosecute any alcohol or drug abuse patient.[facility] the event this information is protected by the Federal Confidentiality of Alcohol and Drug Abuse Patient Records regulations: The Federal rules restrict any use of the information to criminally investigate or prosecute any alcohol or drug abuse patient.[facility] the event this information is protected by the Federal Confidentiality of Alcohol and Drug Abuse Patient Records regulations: The Federal rules restrict any use of the information to criminally investigate or prosecute any alcohol or drug abuse patient.[facility] the event this information is protected by the Federal Confidentiality of Alcohol and Drug Abuse Patient Records regulations: The Federal rules restrict any use of the information to criminally investigate or prosecute any alcohol or drug abuse patient.[facility] the event this information is protected by the Federal Confidentiality of Alcohol and Drug Abuse Patient Records regulations: The Federal rules restrict any use of the information to criminally investigate or prosecute any alcohol or drug abuse patient.[facility] the event this information is protected by the Federal Confidentiality of Alcohol and Drug Abuse Patient Records regulations: The Federal rules restrict any use of the information to criminally investigate or prosecute any alcohol or drug abuse patient.[facility] the event this information is protected by the Federal Confidentiality of Alcohol and Drug Abuse Patient Records regulations: The Federal rules restrict any use of the information to criminally investigate or prosecute any alcohol or drug abuse patient.[facility] the event this information is protected by the Federal Confidentiality of Alcohol and Drug Abuse Patient Records regulations: The Federal rules restrict any use of the information to criminally investigate or prosecute any alcohol or drug abuse patient.[facility] the event this information is protected by the Federal Confidentiality of Alcohol and Drug Abuse Patient Records regulations: The Federal rules restrict any use of the information to criminally investigate or prosecute any alcohol or drug abuse patient.[facility] Reason for Visit (unrecogniz ed section and content) Reason Comments appointment conflict Reason Comments Established Patient Pain Swelling Specialty Diagnoses / Procedures Referred By Rigo valente Referred To Contact [facility] Diagnoses 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, initial encounter (HCC) Pain due to total left knee replacement, initial encounter ([facility]) Procedures CONSULT TO PHYSICAL THERAPY PHYSICAL THERAPY EVALUATION HIGH COMPLEX 45 MINS Jesus Alberto Roche APRN.ROAD MACHINERY INSPECTOR [address] [address] [facility] [address] [place] [address] Referral ID Status Reason Start Date Expiration Date Visits Requested Visits Authorized [id number] Authorized Auto-Generat ed Referral 2 07/23/2022 99 99 Reason Comments Patient Question Right Big toe Reason Comments Schedule Surgery Care Teams (unrecognized sec tion and content) Auto Parker Relationship Specialty Start Date End Date Kris Bernardo MD [address] [place] [address] [phone] PCP - General Family Medicine 07/27/20 Auto Parker Relationship Specialty Start Date End Date Kris Bernardo MD [address] [place] [place] [address] PCP - General Family Medicine 07/27/20 Auto Parker Relationship Specialty Start Date End Date Kris Bernardo MD [address] [place] [place] [address] PCP - General Family Medicine 07/27/20 Auto Parker Relationship Specialty Start Date End Date Kris Bernardo MD [address] [place] [place] [address] PCP - General Family Medicine 07/27/20 Auto Parker Relationship Specialty Start Date End Date Kris Bernardo MD [address] [place] [place] [address] PCP - General [facility] Medicine 07/27/20 Auto Parker Relationship Specialty Start Date End Date Kris Bernardo MD [address] [place] [place] [address] PCP - [facility] Medicine 07/27/20 Auto Parker Relationship Specialty Start Date End Date Fidel Mosley Chi [address] [facility] [address] [place], [place] [id number] PCP - General Gerontology 05/23/22 Auto Parker Relationship Specialty Start Date End Date Kris Bernardo MD [address] [place] [place] [address] PCP - General Family Medicine 07/27/20 05/22/22 [...] BE BASED ON THE PRIMARY CLINICAL RECORDS. [facility]. provides no warranty or guarantee of the accuracy or completeness of information in this document.
[2023-09-24 01:29] LABS: Absolute Lymphocyte Count 1.89 X10^3/uL (0.83-4.51); Basophil# 0.07 X10^3/uL; Eosinophil# 0.11 X10^3/uL; Eosinophils% 1.6 % (0-5); Hematocrit 42.8 % (37-47); Hemoglobin 13.6 g/dL (12.0-15.0); Lymphocyte # 1.89 X10^3/ul (0.83-4.51); Lymphocyte % 27.2 % (19-41); Mean Corp Hgb Conc 31.8 g/dL (32-36); Mean Corpuscular Hgb 29.2 pg (27.0-32.0); Mean Corpuscular Volume 91.8 fL (81-99); Monocyte# 0.89 X10^3/uL; Monocyte% 12.8 % (0-10); NRBC Flagged by Analyzer 0 % (0-5); Neutrophil # 3.97 X10^3/uL (2.7-7.7); Neutrophil % 57.1 % (47-70); Platelet Count 296 K/mm3 (150-450); RBC Distribution Width SD 43.7 fl (35.1-43.9); Red Blood Count 4.66 M/mm3 (4.2-5.4)
[2023-09-24] MEDS: HYDROmorphone 1 MG/ML Syringe IV (01:32)
[2023-09-24 01:47] LABS: Anion Gap 3 (5-15); BUN 12 mg/dL (7-18); BUN/Creat Ratio 16.2 RATIO (10-20); Calcium,Total 9.1 mg/dL (8.5-10.1); Chloride 107 mmol/L (98-107); Creatinine, Serum 0.74 mg/dL (0.55-1.02); EST Glomerular Filtration Rate 85 mL/min (>60); Est Glom Filt Rate - Afr Amer 103 mL/min (>60); Estimated Creatinine Clearance 68.94 ml/min; Glucose 101 mg/dL (74-106); Magnesium 2.4 mg/dL (1.6-2.6); Potassium 3.4 mmol/L (3.5-5.1); Sodium Level 139 mmol/L (136-145)
[2023-09-24 02:04] LABS: Lactic Acid 0.7 mmol/L (0.4-1.9)
[2023-09-24] MEDS: Ciprofloxacin 400 MG/200 ML BAG 200 MG IV (02:50)
--- NOTE | 2023-09-24 03:09 | HP.PCM.HOS_ITS ---
[facility] - General General Date of Admission: 09/24/23 Date of Service: 09/24/23 Chief Complaint: Worsening Abdominal Pain. HPI Narrative VIJI TESFAYE, is a 63 F with a past medical history of who essential hypertension, history of tobacco abuse, psoriatic arthritis, pseudogout, depression, RLS, GERD; with history of PUD, DDD of the lumbar spine; s/p lumbar fusion (2022), OA; s/p partial Left knee replacement, history of iliotibial band syndrome of the LLE followed by Dr. Birch of orthopedic surgery and history of recently diagnosed acute diverticulitis diagnosed on CT as an outpatient on September 21, 2023 which was treated with oral Augmentin who presents to [facility] ER complaining of worsening abdominal pain. Mrs. Tesfaye reports her symptoms began approximately one week prior to admission with the gradual-onset of generalized, cramping abdominal pain that eventually focused in her LLQ. Though she had been taking her Augmentin her symptoms worsened with increased abdominal pain and malaise so she decided to come in for further evaluation and treatment. She is very concerned because she has not previously had blood in her stools with her acute flares of diverticulitis with at least 4 episodes in the past year. In the ER she was diagnosed with Acute Diverticulitis that Failed Outpatient Antibiotic Treatment complicated by Hypokalemia of 3.4 mmol/L present on admission and she was then admitted to the general medical floor for ongoing care for a stay that is expected to be greater than 48 hours. [facility] Medical History Alcohol use Anxiety Back pain Former smoker History of diverticulitis History of pain when walking History of steroid therapy Hx of peptic ulcer Hx of psoriatic arthritis Hypertension Osteoarthritis Physical exam, pre-employment Post-menopausal Restless legs Wears glasses Home Medications venlafaxine 37.5 mg tablet 75 mg PO QHS depression 03/20/16 [History Last Taken 10/10/22] amlodipine 5 mg tablet 2.5 mg PO QHS BP 01/03/18 [History Last Taken 06/21/23] pantoprazole 40 mg tablet,delayed release 40 mg PO DAILY GERD 08/09/22 [History Last Taken 06/21/23] ramipril 10 mg capsule 10 mg PO BID HEART 08/09/22 [History Last Taken 10/11/22] ropinirole 0.25 mg tablet 0.5 mg PO QHS RESTLESS LEGS 08/09/22 [History Last Taken 10/10/22] furosemide 20 mg tablet 20 mg PO DAILY 01/12/23 [History Last Taken Unknown] acetaminophen 500 mg tablet 1,000 mg (2 x 500 mg) PO Q6H PRN #100 tabs 06/21/23 [Rx Last Taken Unknown] tramadol 50 mg tablet 50 - 100 mg (1 - 2 x 50 mg) PO Q8H PRN pain #42 tabs 08/11/23 [Rx Last Taken Unknown] Allergy/AdvReac Type Severity Reaction Status Date / Time adhesive tape Allergy Severe blistering Verified 08/21/23 11:32 bee venom protein (honey bee) Allergy Swelling Verified 08/21/23 11:32 Family History Other Breast cancer CAD (coronary artery disease) Heart disease Hypertension Surgical History History of appendectomy History of section History of hysterectomy History of lumbar spinal fusion History of total right knee replacement Status post left partial knee replacement Social History household members: spouse Smoking Status: Former smoker alcohol intake: current alcohol intake frequency: holidays/special occasions o nly substance use type: does not use what type of physical activity do you participate in: walking frequency: 1-2 times per week ROS ROS Narrative Review of systems: Constitutional: Patient admits to malaise but denies fever or chills. Eyes: Patient denies vision changes or discharge from eyes. ENT: Patient denies runny nose, sore throat or ear pain. CV: Patient denies chest pain or palpitations. Resp: Patient denies SOB or cough. GI: Patient admits to abdominal pain with nausea as per HPI. : Patient denies dysuria, hematuria or urinary frequency. MSK: Patient admits to muscle and joint pain that are chronic. Psych: Patient denies uncontrolled depression or anxiety. Hematology: Patient admits to blood in stools. Neurologic: Patient denies headache, paresthesias or focal neurologic deficits. Endocrinology: Patient denies polyuria, polydipsia and polyphagia. Vital Signs Vital Signs Vital Signs: 09/24/23 00:53 09/24/23 00:53 09/24/23 01:01 Temperature 97.5 F L 97.5 F L 98.7 F Temperature Source Oral Oral Temporal Pulse Rate 79 71 69 Respiratory Rate 16 16 16 Blood Pressure 180/105 H 181/96 H 169/103 H Blood Pressure Mean 130 124 125 Pulse Ox 100 100 98 Oxygen Delivery Method Room Air Room Air Room Air Weight Weight: 138 lb 6.4 oz Body Mass Index (BMI) 23.7 Physical Exam Const alert, oriented x3 and average body habitus General Appearance: cooperative HEENT normocephalic, head/scalp atraumatic and hearing grossly normal bilaterally HEENT Narrative: Mucous membranes dry. Eyes PERRL and EOMs intact bilaterally Neck no lymphadenopathy and supple Resp normal respiratory effort, no retractions, no use of accessory muscles and clear to auscultation bilaterally Cardio regular rate and regular rhythm GI normal to inspection, nondistended, normoactive bowel sounds, soft to palpation and non-distended GI Narrative: Mild LLQ TTP. Auscultation: hypoactive bowel sounds Extremity normal to inspection, full ROM and no clubbing, cyanosis or edema Skin Skin Narrative: Patient has no evidence of rash. Neuro oriented x3, CN's II-XII intact bilaterally, moves all extremities and no focal motor deficits Sensorium / Orientation: awake, alert, oriented to person, oriented to place and oriented to time Speech: speech normal Motor Exam: strength 5/5 throughout Psych affect normal Results Medical Records Data Attestation: I reviewed the patient's medical records Lab / Micro Data Attestation: I reviewed the patient's lab results. 09/24/23 01:10 09/24/23 01:10 Labs: Laboratory Results - last 24 hr 09/24/23 01:10: WBC 7.0, RBC 4.66, Hgb 13.6, Hct 42.8, MCV 91.8, MCH 29.2, MCHC 31.8 L, RDW Std Deviation 43.7, RDW Coeff of Caity 13.0, Plt Count 296, MPV 10.0, Immature Gran % (Auto) 0.300, Neut % (Auto) 57.1, Lymph % (Auto) 27.2, [place] % (Auto) 12.8 H, Eos % (Auto) 1.6, Baso % (Auto) 1.0, Absolute Neuts (auto) 4.0, Absolute Lymphs (auto) 1.89, Nucleated RBC % 0, Sodium 139, Potassium 3.4 L, Chloride 107, Carbon Dioxide 29.0, Anion Gap 3 L, BUN 12, Creatinine 0.74, Estim Creat Clear Calc 68.94, Est GFR (MDRD) Af Amer 103, Est GFR (MDRD) Non-Af 85, BUN/Creatinine Ratio 16.2, Glucose 101, Lactic Acid 0.7, Calcium 9.1, Magnesium 2.4 Assessment & Plan Assessment/Plan (1) Acute diverticulitis: PLAN: Plan 1. Acute Diverticulitis that Failed Outpatient Antibiotic Treatment - Admit to general medical floor. Continue broad-spectrum antibiotics with IV Rocephin and IV Flagyl to cover Gram-negatives and anaerobes. Give Tylenol prn for [id number] (level 1-5/10) pain or fever. Give Morphine IV prn for severe (level 6-10/10) pain. 2. Hypokalemia of 3.4 mmol/L present on admission complicating #1 - Give supplemental KCl and then recheck BMP in the AM to ensure improvement. 3. Essential hypertension - Continue home regimen and give IV Hydralazine prn for systolic blood pressure > 160 mm Hg. 4. History of tobacco abuse - Tobacco Cessation will be strongly encouraged. 5. Psoriatic arthritis - Stable. 6. Pseudogout - Stable. 7. Depression - Continue Venlafaxine as preious plus give prn Xanax for breakthrough symptoms. 8. RLS - Resume Requip. 9. GERD; with history of PUD - Continue PPI IV. 10. DDD of the lumbar spine; s/p lumbar fusion (2022) - Stable. 11. OA; s/p partial Left knee replacement - Stable. Give Tylenol prn. 12. History of iliotibial band syndrome of the LLE followed by Dr. Birch of orthopedic surgery - Stable. 13. DVT prophylaxis - Lovenox 40 mg sq daily plus SCD's. Total time: Approximately 55 minutes. Charges/Coding Visit Charges Inpatient E&M: 47708 Init Hosp L2
--- NOTE | 2023-09-24 03:11 | EX.ED.DYSGE1 ---
HPI History of Present Illness Chief Complaint: Abd Pain Informant: patient Narrative Narrative: Patient is a 63-year-old female with past medical history of hypertension and diverticulitis. She states that 3 to 4 days ago she developed some generalized abdominal discomfort greatest in the left lower abdomen and with her history went and saw her family doctor. She had outpatient blood work obtained and a CT scan which showed changes concerning for diverticulitis. She was started on Augmentin and has been taking as directed. Despite using the antibiotic she has had worsening abdominal pain and now is reporting blood in her stool. Therefore the worsening symptoms that are not being controlled with outpatient therapy she presents for evaluation [facility] Medical History Alcohol use Anxiety Back pain Former smoker History of diverticulitis History of pain when walking History of steroid therapy Hx of peptic ulcer Hx of psoriatic arthritis Hypertension Osteoarthritis Physical exam, pre-employment Post-menopausal Restless legs Wears glasses Home Medications venlafaxine 37.5 mg tablet 75 mg PO QHS depression 03/20/16 [History Last Taken 10/10/22] amlodipine 5 mg tablet 2.5 mg PO QHS BP 01/03/18 [History Last Taken 06/21/23] pantoprazole 40 mg tablet,delayed release 40 mg PO DAILY GERD 08/09/22 [History Last Taken 06/21/23] ramipril 10 mg capsule 10 mg PO BID HEART 08/09/22 [History Last Taken 10/11/22] ropinirole 0.25 mg tablet 0.5 mg PO QHS RESTLESS LEGS 08/09/22 [History Last Taken 10/10/22] furosemide 20 mg tablet 20 mg PO DAILY 01/12/23 [History Last Taken Unknown] acetaminophen 500 mg tablet 1,000 mg (2 x 500 mg) PO Q6H PRN #100 tabs 06/21/23 [Rx Last Taken Unknown] tramadol 50 mg tablet 50 - 100 mg (1 - 2 x 50 mg) PO Q8H PRN pain #42 tabs 08/11/23 [Rx Last Taken Unknown] Allergy/AdvReac Type Severity Reaction Status Date / Time adhesive tape Allergy Severe blistering Verified 08/21/23 11:32 bee venom protein (honey bee) Allergy Swelling Verified 08/21/23 11:32 Family History Other Breast cancer CAD (coronary artery disease) Heart disease Hypertension Surgical History History of appendectomy History of section History of hysterectomy History of lumbar spinal fusion History of total right knee replacement Status post left partial knee replacement Social History household members: spouse Smoking Status: Former smoker alcohol intake: current alcohol intake frequency: holidays/special occasions only substance use type: does not use what type of physical activity do you participate in: walking frequency: 1-2 times per week ROS ROS ED Constitutional Constitutional ED: Denies chills or fever(s) ENT ENT ED: Denies sore throat Cardiovascular Cardiovascular: Denies chest pain Respiratory/Chest Respiratory/Chest: Denies cough or dyspnea Gastrointestinal Gastrointestinal: Reports abdominal pain, diarrhea and other Details: Positive hematochezia ; Denies nausea or vomiting Genitourinary Genitourinary ED: Denies dysuria or hematuria Musculoskeletal Musculoskeletal: Denies back pain or myalgias Integumentary Denies rash Neurologic Neurologic: Denies headache(s) Hematologic/Lymphatic Hematologic/Lymphatic: Denies easy bleeding or easy bruising EXAM Physical Exam Const Vital Signs: 09/24/23 00:53 09/24/23 00:53 09/24/23 01:01 Temperature 97.5 F L 97.5 F L 98.7 F Temperature Source Oral Oral Temporal Pulse Rate 79 71 69 Respiratory Rate 16 16 16 Blood Pressure 180/105 H 181/96 H 169/103 H Blood Pressure Mean 130 124 125 Pulse Ox 100 100 98 Oxygen Delivery Method Room Air Room Air Room Air Positive well nourished and well developed General Appearance ED: well developed; Negative for pallor HEENT HEENT Narrative: Normocephalic atraumatic Eyes PERRL and EOMs intact bilaterally General Eye ED: Negative for pale conjunctiva or scleral icterus Neck supple Resp normal respiratory effort and clear to auscultation bilaterally Cardio regular rate and regular rhythm Rate: other Other Details: Radial and carotid pulses are equal and symmetric GI non-distended GI Narrative: Abdomen is soft and nondistended with hyperactive bowel sounds. Patient has pain with palpation diffusely but greatest in the left lower quadrant. No voluntary guarding or rigidity. No pulsatile mass or fluid wave. No peritoneal signs Auscultation: hyperactive bowel sounds Palpation: soft Extremity normal to inspection Neuro oriented x3, CN's II-XII intact bilaterally and no sensory deficits noted Sensorium / Orientation: alert Motor Exam: strength 5/5 throughout Psych mental status grossly normal Skin no rashes or lesions noted and skin turgor normal General Skin Exam: Negative for jaundice or pallor MDM MDM MDM Narrative Medical decision making narrative: Patient presented to the ER hypertensive but otherwise with stable vitals. She had recent outpatient blood work and CT scan documenting diverticulitis. Differential diagnosis is for failure of outpatient therapy versus progression to sepsis versus potential perforation versus abscess formation. Basic labs were repeated and patient's white count and neutrophil count are normal her lactic acid is normal going against systemic infection. She is not febrile or tachycardic and without changes to her lactic acid or white blood cell count or neutrophil count she does not classify as sepsis. We discussed potential repeat CT scan but the patient's abdomen is soft without peritoneal signs and therefore my concern for abscess or perforation is low and I do not feel there is need for repeat imaging. Patient was started on Cipro and Flagyl as she has been on penicillin without symptom improvement. Moreover she reports that Cipro and Flagyl has helped resolve her infection in the past. As patient has had persistent pain that has been worsening over the last 2 days despite antibiotic therapy and has had recurrent bouts of diverticulitis I do not feel that she would do well with a switch to oral antibiotics and therefore discussed the case with the hospitalist about potential admission for IV antibiotics as well as potential surgical consult secondary to her recurrent episodes. Patient was evaluated by the hospitalist and he does agree with this plan of care and therefore should be admitted at this time History & Record Review Discussion w/independent historian: Patient Lab Data Attestation: I reviewed the patient's lab results. Labs: Laboratory Results - last 24 hr 09/24/23 01:10 WBC 7.0 RBC 4.66 Hgb 13.6 Hct 42.8 MCV 91.8 MCH 29.2 MCHC 31.8 L RDW Std Deviation 43.7 RDW Coeff of Caity 13.0 Plt Count 296 MPV 10.0 Immature Gran % (Auto) 0.300 Neut % (Auto) 57.1 Lymph % (Auto) 27.2 [place] % (Auto) 12.8 H Eos % (Auto) 1.6 Baso % (Auto) 1.0 Absolute Neuts (auto) 4.0 Absolute Lymphs (auto) 1.89 Nucleated RBC % 0 Sodium 139 Potassium 3.4 L Chloride 107 Carbon Dioxide 29.0 Anion Gap 3 L BUN 12 Creatinine 0.74 Estim Creat Clear Calc 68.94 Est GFR (MDRD) Af Amer 103 Est GFR (MDRD) Non-Af 85 BUN/Creatinine Ratio 16.2 Glucose 101 Lactic Acid 0.7 Calcium 9.1 Magnesium 2.4 Management Discussion w/another healthcare provider: Hospitalist Discharge Plan Dx/Rx/DC Orders Clinical Impression: Acute diverticulitis, Failure of outpatient treatment, Hypertension Disposition Disposition: Acute Care Hospital [facility]
--- OUTSIDE RECORDS SUMMARY | 2023-09-24 04:11 | XMS RPT_ITS | CCD ---
Author Name Unknown Address [address] [place] [address] Organization [facility] Care Team Providers Care Supervisor Cell Room Name Role Phone TRINIDAD KAY Unavailable Unavailable [...] Unavailable Azucena, Fidel Chi Primary Care Provider [phone] TESTRALAMONT, YUMIKO Referring Unavailable AC, KRIS SERGEY Primary Care Unavailable TESTRAKE, YUMIKO Referring Unavailable AZUCENA, FIDEL CHI Primary Care Unavailable TESTRAKE, YUMIKO Attending Unavailable AC, KRIS SERGEY Referring Unavailable BERNARDO, KRIS SERGEY Primary Care Unavailable JESUS ALBERTO ROCHE Attending Unavailable CHAITANYA DUNEN Referring Unavailable BERNARDO, KRIS SERGEY Primary Care Unavailable TESTRAKE, YUMIKO Attending Unavailable TESTRAKE, YUMIKO Referring Unavailable BERNARDO, KRIS SERGEY Primary Care Unavailable Kris Bernardo MD Primary Care Provider Allergies Allergy Classification Reported Allergen(s) Allergy Type Date of Onset Reaction(s) Facility (12 sources) Adhesive Tape; Translations: [ADHESIVE TAPE (ROSINS)] Propensity to adverse reactions (disorder) 6 Rash [facility] Other [place] Repository (11 sources) Bee Sting; Translations: [BEE STING] Propensity to adverse reactions 0 Swelling [facility] Work Phone: Medications Completed/Discontinued Medications Medication [...] on knee 3 views Jesus Alberto Roche PEST CONTROL PILOT.CHAIR POST MACHINE OPERATOR Work Phone: Start: 08-16-2018 Colonoscopy Chaitanya nova MD Work Phone: Start: 09-16-2015 Mammography Chaitanya nova MD Work Phone: Start: 05-26-2014 Lipid 1996 panel - Serum or Plasma Xr Mob Work Phone: Start: 10-25-2013 H/O: artificial joint Knee emily nt replacement by other means Chaitanya Dunne MD Work Phone: Plan of Treatment Date Care Activity Detail Author Start: 08-16-2028 Colonoscopy COLONOSCOPY [facility] Start: 08-16-2028 COLORECTAL CANCER SCREENING COLORECTAL CANCER SCREENING [facility] Start: 07-31-2023 DIABETES SCREEN DIABETES SCREEN [facility] Start: 07-31-2023 Diabetes Screening Diabetes Screening [facility] Start: 03-24-2023 Influenza [facility] Start: 09-10-2022 Pneumococcal vaccination Pneumococcal Vaccine (3 - PCV) [facility] Start: 03-24-2022 Influenza vaccination INFLUENZA (#1) [facility] Start: 2022 RSV Vaccine (1 - 1-dose 60+ series) RSV Vaccine (1 - 1-dose 60+ series) [facility] Start: 07-24-2021 DEPRESSION ASSESSMENT DEPRESSION ASSESSMENT [facility] Start: 11-24-2020 COVID-19 VACCINE (3 - Pfizer risk series) COVID-19 VACCINE (3 - Pfizer risk series) [facility] Start: 05-26-2019 Lipid 1996 panel - Serum or Plasma Lipid Screening [facility] Start: 05-26-2019 LIPID SCREEN LIPID SCREEN [facility] Start: 10-16-2017 Urine microalbumin profile [facility] Start: 06-08-2017 FECAL OCCULT BLOOD FECAL OCCULT BLOOD [facility] Start: 09-16-2016 Mammography [facility] Start: 12-09-2011 PNEUMOCOCCAL (2 - PCV) PNEUMOCOCCAL (2 - PCV) [facility] Start: 2007 COLOGUARD (FIT-DNA) COLOGUARD (FIT-DNA) [facility] Start: [address] COLONOGRAPHY [facility] Start: 2007 SIGMOIDOSCOPY SIGMOIDOSCOPY [facility] Start: 1981 SHINGRIX VACCINE (1 of 2) SHINGRIX VACCINE (1 of 2) [facility] Start: 02-08-1980 ANNUAL PCP TEAM CHRONIC DISEASE VISIT ANNUAL PCP TEAM CHRONIC DISEASE VISIT [facility] Start: 02-08-1980 BP CONTROLLED (<130/80) BP CONTROLLED (<130/80) [facility] Start: 02-08-1980 HIV SCREENING HIV SCREENING [facility] End: 06-17-2023 XR FOOT GENERAL 3V AP/LAT/OBL RIGHT XR FOOT GENERAL 3V AP/LAT/OBL RIGHT Radiology Routine Hallux limitus, acquired, unspecified laterality 1 Occurrences starting 05/18/2022 until 06/17/2023 [facility] Work Phone: Immunizations Immunization Date Immunization Notes Care Provider Saeid majano 10-05-2020 COVID-19 original vaccine, age 12+ yr, monovalent ([facility]ER[employer] - PURPLE TOP) Chaitanya Dunne MD Work Phone: [facility] 05-25-2020 influenza virus vacc ine, unspecified formulation Xr Mob Work Phone: [facility] 12-08-2010 pneumococcal polysaccharide vaccine, 23 valent Chaitanya Dunne MD Work Phone: [facility] 10-17-2007 tetanus toxoid, redu louie diphtheria toxoid, and acellular pertussis vaccine, adsorbed Chaitanya Dunne MD Work Phone: [facility] Work Phone: Payers Date Payer Category Payer Medicare [id number] 2021 Medicare [id number] 2017 Self-pay Social History Date Type Detail Facility Start: 08-15-2018 End: 05-30-2022 Tobacco smoking status NHIS Ex-smoker [facility] End: 07-24-2016 History of tobacco use Current smoker [facility] End: 07-24-2016 History of tobacco use Cigarette Smoker [facility] Start: 08-15-2018 End: 06-28-2020 Cigarettes smoked current (pack per day) - Reported 0.5 [facility] Start: 08-15-2018 Tobacco use and exposure User of smokeless tobacco [facility] Start: 08-31-2021 End: 05-18-2022 Alcohol intake Current drinker of alcohol (finding) [facility] Start: 01-28-2021 History SDOH Alcohol Frequency 3 [facility] Start: 01-28-2021 History SDOH Alcohol Std Drinks 1 [facility] Start: 01-28-2021 History SDOH Social Connections Phone 5 [facility] Start: 01-28-2021 History SDOH Social Connections Get Together 4 [facility] Start: 01-28-2021 History SDOH Physica l Activity DPW 2 [facility] Start: 01-28-2021 Education 12 [facility] Start: 08-07-2017 Tobacco Comment currently on e-cig [facility] Start: 1960 Sex Assigned At Not on file [facility] Start: 04-11-2022 End: 05-18-2022 Exposure to SARS-CoV-2 (event) Not sure [facility] Start: 05-30-2022 Tobacco use and exposure Smoke less tobacco non-user [facility] Start: 05-30-2022 Alcohol intake Ex-drinker (finding) [facility] Start: 05-30-2022 Alcohol Comment [facility]ially [facility] Start: 06-28-2020 End: 01-28-2021 Social connection and isolation panel [facility] Do you belong to any clubs or organizations such as christianity groups, unions, fraternal or athletic groups, or school groups? Yes [facility] Are you now , , , , never or living with a partner? [facility] How often to you hav e a drink containing alcohol? 2-4 times a month [facility] How many standard dr inks containing alcohol do you have on a typical day? 1 or 2 [facility] How often do you hav e 6 or more drinks on 1 occasion? Never [facility] Adult Depression Scr eening Assessment 0 [facility] Do you feel stress - tense, restless, nervous, or anxious, or unable to sleep at night because your mind is troubled all the time - these days [OSQ] Only a little [facility] (I/We) worried wheth er (my/our) food would run out before (I/we) got money to buy more. Never true [facility] At any time in the p ast 12 months, were you homeless or living in care home [including now]? No [facility] Medical Equipment Procedure Code Equipment Code Equipment Origin al Text Equipment Identifier Dates Simplex P Bone Cement Radiopaque Full Dose Individual Pack - [id number] Start: 12-07-2010 Ins Tib 3 9mm Kn X3 Cr Trthln - [id number] Start: 12-07-2010 Ins Tib 3 11mm K n X3 Cs Trthln - [id number] Start: 01-21-2014 Comp Pat 10mm 32 mm Asym Trthln - [id number] Start: 12-07-2010 Baseplt Tib Trth ln 3 Prim - [id number] Start: 12-07-2010 Clinical Notes 06-13-2016 to [...] office to fax medical records to [facility] Medicare Patient's MRI is currently being denied and patient filed an expedited appeal Patient requesting records to be faxed to [phone] Case# [id number] Records faxed at this time per patient's request documented in this encounter [facility] 05-19-2022 Miscellaneous Notes Patient notified of surgical date. Follow up scheduled. Surgical confirmation letter sent to patient via [employer] message. Patient called. Verified name and date of . Transferred to nurseMary Anne, in podiatry. Mavis Russell LPN Left patient Vm to contact office and give surgical date. Patient scheduled for XR guided injection of R 1st MTPJ on 06/06/22 at [facility]. Patient will need a month follow up post injection scheduled when she returns call. documented in this encounter [facility] 05-18-2022 Note HNO ID: [id number] Author: RT Jayro(R) Service: ? Author Type: [...] RT Jayro(R) May 18, 2022 5:07 PM [facility] 05-18-2022 Note HNO ID: [id number] Author: Yumiko Welsh Service: ? Author Type: [...] as needed. Currently not taking while on [place] for pain amLODIPine (NORVASC) 5 mg tablet [...] 5 seconds to (more content not included)... [facility] 05-18-2022 Note HNO ID: [id number] Author: Rosa Starkey RN Service: ? Author [...] shoes and states they have also helped. [facility] 05-18-2022 History of Presen t illness Narrative [...] 2022 5:07 PM documented in this encounter [facility] 05-18-2022 History of Presen t illness [...] as needed. Currently not taking while on [place] for pain amLODIPine (NORVASC) 5 mg tablet [...] Yumiko Welsh DPM Podiatry [address] [facility] [address] Dept: [phone] Dept AMB ROOMING INTAKE FLOWSHEET DATA Risk [...] have also helped. documented in this encounter [facility] 05-04-2022 Miscellaneous Notes Called patient and scheduled her an appointment on 05/18/2022 at 4 pm to discuss receiving another injection. Zonia Bernardo LPN Patient called asking if could have another Right big toe injection, d/t swelling and pain. Please call patient back. Thank you. Judy#[phone] documented in this encounter [facility] 05-02-2022 Note HNO ID: [id number] Author: Jesus Alberto Roche APRN.CHAIR POST MACHINE OPERATOR Service: ? Author Type: Nurse Practitioner Type: [...] which included preparing to see the patient, [id number] patient care, completing clinical documentation, obtaining and/or reviewing separately obtained history, performing a medically appropriate examination, counseling and educating the patient/family/caregiver, ordering medications, tests, or procedures, communicating with other HCPs (not separately reported), independently interpreting results (not separately reported), communicating results to the patient/family/caregiver, and care coordination (not separately reported). Jesus Alberto Roche APRN.[facility] Orthopaedic Surgery [facility] 05-02-2022 Note HNO ID: [id number] Author: KAROLYN Wagner Service: Radiology Author Type: [...] KAROLYN Wagner May 02, 2022 9:28 AM [facility] 05-02-2022 History of Presen t illness Narrative [...] 2022 9:28 AM documented in this encounter [facility] 04-28-2022 Miscellaneous Notes Patient returned call, and is rescheduled. Provider out on 05/05/22, left VM & sent mychart message. Ok to r/s to 05/03/22. Please assist in rescheduling when patient calls back. Thanks documented in this encounter [facility] 04-25-2022 Miscellaneous Notes Patient is scheduled [...] had a partial replacement done at [facility] several years ago. She is concerned that perhaps the pain is from result of favoring her right knee but would like to verify of no changes. Patient aware likely will need to bee seen separate date/time to discuss left knee and verbalizes understanding but would like to hear from Ortho staff. Please review and advise. documented in this encounter [facility] 08-31-2021 Note HNO ID: [id number] Author: Yumiko Welsh Service: ? Author Type: [...] as needed. Currently not taking while on [place] for pain - amLODIPine (NORVASC) 5 mg [...] ? cc o (more content not included)... [facility] documented as of this encounter (statuses as of 04/25/2022) [facility] History of Past illness Narrative* Problem [...] of this encounter (statuses as of 04/27/2022) [facility] History of Past illness Narrative* Problem [...] of this encounter (statuses as of 04/28/2022) [facility] History of Past illness Narrative* Problem [...] of this encounter (statuses as of 05/03/2022) [facility] History of Past illness Narrative* Problem [...] of this encounter (statuses as of 05/19/2022) [facility] History of Past illness Narrative* Problem [...] of this encounter (statuses as of 05/19/2022) [facility] History of Past illness Narrative* Problem [...] of this encounter (statuses as of 05/19/2022) [facility] History of Past illness Narrative* Problem [...] of this encounter (statuses as of 08/22/2022) [facility] History of Past illness Narrative* Problem [...] of this encounter (statuses as of 05/28/2023) [facility] Diagnosis Pain in both knees, unspecified [...] acquired, unspecified laterality documented in this encounter [facility] for referral (narrative)* Diagnostic Procedure Only (Routine) - Pending Review Specialty Diagnoses / Procedures Referred By Rigo valente Referred To Contact XR IMAGING Diagnoses Pain in both knees, unspecified chronicity Procedures XR KNEE POST OP 3V AP/LAT/MERCHANT BILATERAL RADIOLOGIC EXAMINATION KNEE 3 VIEWS Jesus Alberto Roche APRN.CHAIR POST MACHINE OPERATOR [address] [place] [address] Xr Imaging Referral ID Status Reason Start Date Expiration Date Visits Requested Visits Authorized [id number] Pending Review Auto-Generat ed Referral 04/27/2022 05/26/2023 1 1 [facility] for referral (narrative)* Diagnostic Procedure Only (Routine) - Closed Specialty Diagnoses / Procedures Referred By Contac t Referred To Contact XR IMAGING Diagnoses Pain in both knees, unspecified chronicity Procedures XR KNEE POST OP 3V AP/LAT/MERCHANT BILATERAL RADIOLOGIC EXAMINATION KNEE 3 VIEWS Jesus Alberto Roche APRN.CNP [address] [facility], [address] [place] [id number] Xr Imaging Referral ID Status Reason Start Date Expiration Date V isits Requested Visits Authorized [id number] Closed Auto-Generate d Referral 04/27/2022 05/26/2023 1 1 [facility] for referral (narrative)* Diagnostic Procedure Only (Routine) - Closed Specialty Diagnoses / Procedures Referred By Contac t Referred To Contact XR IMAGING Diagnoses Hallux limitus, acquired, unspecified laterality Procedures XR FOOT GENERAL 3V AP/LAT/OBL RIGHT RADEX FOOT COMPLETE MINIMUM 3 VIEWS Yumiko [place] [address] Xr Imaging Referral ID Status Reason Start Date Expiration Date V isits Requested Visits Authorized [id number] Closed Auto-Generate d Referral 05/18/2022 06/17/2023 1 1 [facility] for referral (narrative)* Diagnostic Procedure Only (Routine) - Closed Specialty Diagnoses / Procedures Referred By Contac t Referred To Contact XR IMAGING Diagnoses Hallux limitus, acquired, unspecified laterality Procedures XR FOOT GENERAL 3V AP/LAT/OBL RIGHT RADEX FOOT COMPLETE MINIMUM 3 VIEWS Yumiko Welsh [address] [place] [address] [place] [address] Referral ID Status Reason Start Date Expiration Date V isits Requested Visits Authorized [id number] Closed Auto-Generate d Referral 05/18/2022 06/17/2023 1 1 [facility] for visit Narrative* Diagnostic Procedure Only (Routine) - Closed Specialty Diagnoses / Procedures Referred By Contac t Referred To Contact XR IMAGING Diagnoses Pain in both knees, unspecified chronicity Procedures XR KNEE POST OP 3V AP/LAT/MERCHANT BILATERAL RADIOLOGIC EXAMINATION KNEE 3 VIEWS Jesus Alberto Roche, COREEN.CHAIR POST MACHINE OPERATOR [address] [facility], [address] [place] [id number] Xr Imaging Referral ID Status Reason Start Date Expiration Date V isits Requested Visits Authorized [id number] Closed Auto-Generate d Referral 04/27/2022 05/26/2023 1 1 [facility] for visit Narrative* Diagnostic Procedure Only (Routine) - Closed Specialty Diagnoses / Procedures Referred By Contac t Referred To Contact XR IMAGING Diagnoses Hallux limitus, acquired, unspecified laterality Procedures XR FOOT GENERAL 3V AP/LAT/OBL RIGHT RADEX FOOT COMPLETE MINIMUM 3 VIEWS Yumiko Welsh [address] [place] [address] [place] [address] Referral ID Status Reason Start Date Expiration Date V isits Requested Visits Authorized [id number] Closed Auto-Generate d Referral 05/18/2022 06/17/2023 1 1 [facility] Summary Purpose Family History No Family History Records FoundNo Family History Records FoundNo Family History Records FoundNo Family History Records FoundNo Family History Records FoundNo Family History Records FoundNo Family History Records Found Advance Directives Documents on File Type Date Recorded Patient Graphic Manager Expl anation Advance Directive(s) 01/23/2014 11:01 AM Documents on File Type Date Recorded Patient Graphic Manager Expl anation Advance Directive(s) 01/23/2014 11:01 AM Additional Source Comments INFORMATION SOURCE (unrecogn ized section and content) DATE CREATED AUTHOR AUTHOR'S ORGANIZ ATION 01/16/2018 [facility] DATE CREATED AUTHOR AUTHOR'S ORGANIZ ATION 01/19/2018 [facility] DATE CREATED AUTHOR AUTHOR'S ORGANIZ ATION 07/11/2019 [facility] [address] DATE CREATED AUTHOR AUTHOR'S ORGANIZ ATION 10/06/2021 [facility] DATE CREATED AUTHOR AUTHOR'S ORGANIZ ATION 06/06/2022 [facility] DATE CREATED AUTHOR AUTHOR'S ORGANIZ ATION 08/23/2022 [facility] Source Comments (unrecognize d section and content) In the event this informatio n is protected by the Federal Confidentiality of Alcohol and Drug Abuse Patient Records regulations: The Federal rules restrict any use of the information to criminally investigate or prosecute any alcohol or drug abuse patient.[facility] the event this information is protected by the Federal Confidentiality of Alcohol and Drug Abuse Patient Records regulations: The Federal rules restrict any use of the information to criminally investigate or prosecute any alcohol or drug abuse patient.[facility] the event this information is protected by the Federal Confidentiality of Alcohol and Drug Abuse Patient Records regulations: The Federal rules restrict any use of the information to criminally investigate or prosecute any alcohol or drug abuse patient.[facility] the event this information is protected by the Federal Confidentiality of Alcohol and Drug Abuse Patient Records regulations: The Federal rules restrict any use of the information to criminally investigate or prosecute any alcohol or drug abuse patient.[facility] the event this information is protected by the Federal Confidentiality of Alcohol and Drug Abuse Patient Records regulations: The Federal rules restrict any use of the information to criminally investigate or prosecute any alcohol or drug abuse patient.[facility] Hospital[facility] the event this information is protected by the Federal Confidentiality of Alcohol and Drug Abuse Patient Records regulations: The Federal rules restrict any use of the information to criminally investigate or prosecute any alcohol or drug abuse patient.[facility] Hospital[facility] the event this information is protected by the Federal Confidentiality of Alcohol and Drug Abuse Patient Records regulations: The Federal rules restrict any use of the information to criminally investigate or prosecute any alcohol or drug abuse patient.[facility] Hospital[facility] the event this information is protected by the Federal Confidentiality of Alcohol and Drug Abuse Patient Records regulations: The Federal rules restrict any use of the information to criminally investigate or prosecute any alcohol or drug abuse patient.[facility] the event this information is protected by the Federal Confidentiality of Alcohol and Drug Abuse Patient Records regulations: The Federal rules restrict any use of the information to criminally investigate or prosecute any alcohol or drug abuse patient.[facility] Reason for Visit (unrecogniz ed section and content) Reason Comments appointment conflict Reason Comments Established Patient Pain Swelling Specialty Diagnoses / Procedures Referred By Rigo valente Referred To Contact [facility] Diagnoses 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, initial encounter (HCC) Pain due to total left knee replacement, initial encounter ([facility]) Procedures CONSULT TO PHYSICAL THERAPY PHYSICAL THERAPY EVALUATION HIGH COMPLEX 45 MINS Jesus Alberto Roche APRN.CHAIR POST MACHINE OPERATOR [address] [address] [facility] [address] [place] [id number] Referral ID Status Reason Start Date Expiration Date Visits Requested Visits Authorized [id number] Authorized Auto-Generat ed Referral 2 07/23/2022 99 99 Reason Comments Patient Question Right Big toe Reason Comments Schedule Surgery Care Teams (unrecognized sec tion and content) Supervisor Cell Room Relationship Specialty Start Date End Date Kris Bernardo MD [address] [place] [address] [phone] PCP - General Family Medicine 07/27/20 Supervisor Cell Room Relationship Specialty Start Date End Date Kris Bernardo MD [address] [place] [address] PCP - General Family Medicine 07/27/20 Supervisor Cell Room Relationship Specialty Start Date End Date Kris Bernardo MD [address] [place] [address] PCP - General Family Medicine 07/27/20 Supervisor Cell Room Relationship Specialty Start Date End Date Kris Bernardo MD [address] [place] [address] PCP - General Family Medicine 07/27/20 Supervisor Cell Room Relationship Specialty Start Date End Date Kris Bernardo MD [address] [place] [address] PCP - General [facility] Medicine 07/27/20 Supervisor Cell Room Relationship Specialty Start Date End Date Kris Bernardo MD [address] [place] [address] PCP - [facility] Medicine 07/27/20 Supervisor Cell Room Relationship Specialty Start Date End Date Fidel Mosley Chi [address] [facility] [address] [place], [place] [address] PCP - General Gerontology 05/23/22 Supervisor Cell Room Relationship Specialty Start Date End Date Kris Bernardo MD [address] [place] [address] PCP - General Family Medicine 07/27/20 05/22/22 [...] BE BASED ON THE PRIMARY CLINICAL RECORDS. [facility] [facility]. provides no warranty or guarantee of the accuracy or completeness of information in this document.
[2023-09-24] MEDS: Morphine 2 MG/ML Syringe IV ×5 (04:26→20:04)
[2023-09-24] MEDS: 0.9% Normal Saline (1000mL) 1,000 ML 100 ML IV ×2 (04:57→18:13)
[2023-09-24] MEDS: 0.9% Saline Lock 10 ML Syringe IV ×2 (04:58→20:04)
--- OUTSIDE RECORDS SUMMARY | 2023-09-24 05:23 | XMS RPT_ITS | CCD ---
Author Name Unknown Address [address] [facility] [address] [place] [address] Organization [facility] Care Team Providers Care Quality Process Lead Name Role Phone TRINIDAD KAY Unavailable Unavailable [...] Unavailable Azucena, Fidel Chi Primary Care Provider [phone] TESTRALAMONT, YUMIKO Referring Unavailable AC, KRIS SERGEY [...] Propensity to adverse reactions (disorder) 6 Rash [facility] Other [place] Repository (11 sources) Bee Sting; Translations: [BEE STING] Propensity to adverse reactions 0 Swelling [facility] Work Phone: Medications Completed/Discontinued Medications Medication Drug [...] on knee 3 views Jesus Alberto Roche TRACER CLERK.AIRCRAFT NAVIGATOR Work Phone: Start: 08-16-2018 Colonoscopy Chaitanya nova MD Work Phone: Start: 09-16-2015 Mammography Chaitanya nova MD Work Phone: Start: 05-26-2014 Lipid 1996 panel - Serum or Plasma Xr Mob Work Phone: Start: 10-25-2013 H/O: artificial joint Knee emily nt replacement by other means Chaitanya Dunne MD Work Phone: Plan of Treatment Date Care Activity Detail Author Start: 08-16-2028 Colonoscopy COLONOSCOPY [facility] Start: 08-16-2028 COLORECTAL CANCER SCREENING COLORECTAL CANCER SCREENING [facility] Start: 07-31-2023 DIABETES SCREEN DIABETES SCREEN [facility] Start: 07-31-2023 Diabetes Screening Diabetes Screening [facility] Start: 03-24-2023 Influenza [facility] Start: 09-10-2022 Pneumococcal vaccination Pneumococcal Vaccine (3 - PCV) [facility] Start: 03-24-2022 Influenza vaccination INFLUENZA (#1) [facility] Start: 2022 RSV Vaccine (1 - 1-dose 60+ series) RSV Vaccine (1 - 1-dose 60+ series) [facility] Start: 07-24-2021 DEPRESSION ASSESSMENT DEPRESSION ASSESSMENT [facility] Start: 11-24-2020 COVID-19 VACCINE (3 - Pfizer risk series) COVID-19 VACCINE (3 - Pfizer risk series) [facility] Start: 05-26-2019 Lipid 1996 panel - Serum or Plasma Lipid Screening [facility] Start: 05-26-2019 LIPID SCREEN LIPID SCREEN [facility] Start: 10-16-2017 Urine microalbumin profile [facility] Start: 06-08-2017 FECAL OCCULT BLOOD FECAL OCCULT BLOOD [facility] Start: 09-16-2016 Mammography [facility] Start: 12-09-2011 PNEUMOCOCCAL (2 - PCV) PNEUMOCOCCAL (2 - PCV) [facility] Start: 2007 COLOGUARD (FIT-DNA) COLOGUARD (FIT-DNA) [facility] Start: [address] COLONOGRAPHY [facility] Start: 2007 SIGMOIDOSCOPY SIGMOIDOSCOPY [facility] Start: 1981 SHINGRIX VACCINE (1 of 2) SHINGRIX VACCINE (1 of 2) [facility] Start: 02-08-1980 ANNUAL PCP TEAM CHRONIC DISEASE VISIT ANNUAL PCP TEAM CHRONIC DISEASE VISIT [facility] Start: 02-08-1980 BP CONTROLLED (<130/80) BP CONTROLLED (<130/80) [facility] Start: 02-08-1980 HIV SCREENING HIV SCREENING [facility] End: 06-17-2023 XR FOOT GENERAL 3V AP/LAT/OBL RIGHT XR FOOT GENERAL 3V AP/LAT/OBL RIGHT Radiology Routine Hallux limitus, acquired, unspecified laterality 1 Occurrences starting 05/18/2022 until 06/17/2023 [facility] Work Phone: Immunizations Immunization Date Immunization Notes Care Provider Saeid majano 10-05-2020 COVID-19 original vaccine, age 12+ yr, monovalent (PFIZER-BIONTzLense - PURPLE TOP) Chaitanya Dunne MD Work Phone: [facility] 05-25-2020 influenza virus vacc ine, unspecified formulation Xr Mob Work Phone: [facility] 12-08-2010 pneumococcal polysaccharide vaccine, 23 valent Chaitanya Dunne MD Work Phone: [facility] 10-17-2007 tetanus toxoid, redu louie diphtheria toxoid, and acellular pertussis vaccine, adsorbed Chaitanya Dunne MD Work Phone: [facility] Work Phone: Payers Date Payer Category Payer Medicare [id number] 2021 Medicare [id number] 2017 Self-pay Social History Date Type Detail Facility Start: 08-15-2018 End: 05-30-2022 Tobacco smoking status NHIS Ex-smoker [facility] End: 07-24-2016 History of tobacco use Current smoker [facility] End: 07-24-2016 History of tobacco use Cigarette Smoker [facility] Start: 08-15-2018 End: 06-28-2020 Cigarettes smoked current (pack per day) - Reported 0.5 [facility] Start: 08-15-2018 Tobacco use and exposure User of smokeless tobacco [facility] Start: 08-31-2021 End: 05-18-2022 Alcohol intake Current drinker of alcohol (finding) [facility] Start: 01-28-2021 History SDOH Alcohol Frequency 3 [facility] Start: 01-28-2021 History SDOH Alcohol Std Drinks 1 [facility] Start: 01-28-2021 History SDOH Social Connections Phone 5 [facility] Start: 01-28-2021 History SDOH Social Connections Get Together 4 [facility] Start: 01-28-2021 History SDOH Physica l Activity DPW 2 [facility] Start: 01-28-2021 Education 12 [facility] Start: 08-07-2017 Tobacco Comment currently on e-cig C [facility] Start: 1960 Sex Assigned At Not on file C [facility] Start: 04-11-2022 End: 05-18-2022 Exposure to SARS-CoV-2 (event) Not sure [facility] Start: 05-30-2022 Tobacco use and exposure Smoke less tobacco non-user [facility] Start: 05-30-2022 Alcohol intake Ex-drinker (finding) [facility] Start: 05-30-2022 Alcohol [facility] Start: 06-28-2020 End: 01-28-2021 Social connection and isolation panel [facility] Do you belong to any clubs or organizations such as pentecostalism groups, unions, fraternal or athletic groups, or school groups? Yes [facility] Are you now , , , , never or living with a partner? [facility] How often to you hav e a drink containing alcohol? 2-4 times a month [facility] How many standard dr inks containing alcohol do you have on a typical day? 1 or 2 [facility] How often do you hav e 6 or more drinks on 1 occasion? Never [facility] Adult Depression Scr eening Assessment 0 [facility] Do you feel stress - tense, restless, nervous, or anxious, or unable to sleep at night because your mind is troubled all the time - these days [OSQ] Only a little [facility] (I/We) worried wheth er (my/our) food would run out before (I/we) got money to buy more. Never true [facility] At any time in the p ast 12 months, were you homeless or living in skilled nursing [including now]? No [facility] Medical Equipment Procedure Code Equipment Code Equipment Origin al Text Equipment Identifier Dates Simplex P Bone Cement Radiopaque Full Dose Individual Pack - [id number] Start: 12-07-2010 Ins Tib 3 9mm Kn X3 Cr Trthln - [id number] Start: 12-07-2010 Ins Tib 3 11mm K n X3 Cs Trthln - [id number] Start: 01-21-2014 Comp Pat 10mm 32 mm Asym Trthln - [id number] Start: 12-07-2010 Baseplt Tib Trth ln 3 Prim - [id number] Start: 12-07-2010 Clinical Notes 06-13-2016 to 08-22-2022 Telephone Encounter - Carla Elise RN - 08/22/2022 2:30 PM ESTTelephone Encounter - oRsa Starkey RN - 05/19/2022 11:29 AM EDTTelephone Encounter - Mavis Russell LPN - 05/19/2022 11:22 AM EDT Note Date & Type Note Facility 08-22-2022 Miscellaneous Notes Patient left voicemail 08/22/2022 at 0851 Patient contacted at this time Patient requesting Dr. Garnica's office to fax medical records to [facility] Medicare Patient's MRI is currently being denied and patient filed an expedited appeal Patient requesting records to be faxed to [phone] Case# [id number] Records faxed at this time per patient's request documented in this encounter [facility] 05-19-2022 Miscellaneous Notes Patient notified of surgical date. Follow up scheduled. Surgical confirmation letter sent to patient via [employer] message. Patient called. Verified name and date of . Transferred to nurseMary Anne, in podiatry. Mavis Russell LPN Left patient Vm to contact office and give surgical date. Patient scheduled for XR guided injection of R 1st MTPJ on 06/06/22 at [facility]. Patient will need a month follow up post injection scheduled when she returns call. documented in this encounter [facility] 05-18-2022 Note HNO ID: [id number] Author: RT Jayro(R) Service: ? Author Type: [...] RT Jayro(R) May 18, 2022 5:07 PM [facility] 05-18-2022 Note HNO ID: [id number] Author: Yumiko Welsh Service: ? Author Type: [...] as needed. Currently not taking while on [place] for pain amLODIPine (NORVASC) 5 mg tablet [...] 5 seconds to (more content not included)... [facility] 05-18-2022 Note HNO ID: [id number] Author: Rosa Starkey RN Service: ? Author [...] shoes and states they have also helped. [facility] 05-18-2022 History of Presen t illness [...] 2022 5:07 PM documented in this encounter [facility] 05-18-2022 History of Presen t illness [...] as needed. Currently not taking while on [place] for pain amLODIPine (NORVASC) 5 mg tablet [...] Yumiko Welsh DPM Podiatry [address] [facility] [address] Dept: [phone] Dept AMB ROOMING INTAKE FLOWSHEET DATA Risk [...] have also helped. documented in this encounter [facility] 05-04-2022 Miscellaneous Notes Called patient and scheduled her an appointment on 05/18/2022 at 4 pm to discuss receiving another injection. Zonia Bernardo LPN Patient called asking if could have another Right big toe injection, d/t swelling and pain. Please call patient back. Thank you. Judy#[phone] documented in this encounter [facility] 05-02-2022 Note HNO ID: [id number] Author: Jesus Alberto Roche APRN.AIRCRAFT NAVIGATOR Service: ? Author Type: Nurse Practitioner Type: [...] which included preparing to see the patient, [id number] patient care, completing clinical documentation, obtaining and/or reviewing separately obtained history, performing a medically appropriate examination, counseling and educating the patient/family/caregiver, ordering medications, tests, or procedures, communicating with other HCPs (not separately reported), independently interpreting results (not separately reported), communicating results to the patient/family/caregiver, and care coordination (not separately reported). Jesus Alberto Roche APRN.[facility] Orthopaedic Surgery [facility] 05-02-2022 Note HNO ID: [id number] Author: KAROLYN Wagner Service: Radiology Author Type: [...] Wagner May 02, 2022 9:28 AM [facility] 05-02-2022 History of Presen t illness Narrative [...] 2022 9:28 AM documented in this encounter [facility] 04-28-2022 Miscellaneous Notes Patient returned call, and is rescheduled. Provider out on 05/05/22, left VM & sent mychart message. Ok to r/s to 05/03/22. Please assist in rescheduling when patient calls back. Thanks documented in this encounter [facility] 04-25-2022 Miscellaneous Notes Patient is scheduled I [...] has had a partial replacement done at [facility] several years ago. She is concerned that perhaps the pain is from result of favoring her right knee but would like to verify of no changes. Patient aware likely will need to bee seen separate date/time to discuss left knee and verbalizes understanding but would like to hear from Ortho staff. Please review and advise. documented in this encounter [facility] 08-31-2021 Note HNO ID: [id number] Author: Yumiko Welsh Service: ? Author Type: [...] as needed. Currently not taking while on [place] for pain - amLODIPine (NORVASC) 5 mg [...] ? cc o (more content not included)... [facility] documented as of this encounter (statuses as of 04/25/2022) [facility]11-21-2016 History of Past illness Narrative* Problem Noted [...] of this encounter (statuses as of 04/27/2022) [facility] History of Past illness Narrative* Problem Noted [...] of this encounter (statuses as of 04/28/2022) [facility] History of Past illness Narrative* Problem Noted [...] of this encounter (statuses as of 05/03/2022) [facility] History of Past illness Narrative* Problem Noted [...] of this encounter (statuses as of 05/19/2022) [facility] History of Past illness Narrative* Problem Noted [...] of this encounter (statuses as of 05/19/2022) [facility] History of Past illness Narrative* Problem Noted [...] of this encounter (statuses as of 05/19/2022) [facility] History of Past illness Narrative* Problem Noted [...] of this encounter (statuses as of 08/22/2022) [facility] History of Past illness Narrative* Problem Noted [...] of this encounter (statuses as of 05/28/2023) [facility] Diagnosis Pain in both knees, [...] acquired, unspecified laterality documented in this encounter [facility] for referral (narrative)* Diagnostic Procedure Only (Routine) - Pending Review Specialty Diagnoses / Procedures Referred By Rigo valente Referred To Contact XR IMAGING Diagnoses Pain in both knees, unspecified chronicity Procedures XR KNEE POST OP 3V AP/LAT/MERCHANT BILATERAL RADIOLOGIC EXAMINATION KNEE 3 VIEWS Jesus Alberto Roche APRN.AIRCRAFT NAVIGATOR [address] [place] [address] Xr Imaging Referral ID Status Reason Start Date Expiration Date Visits Requested Visits Authorized [id number] Pending Review Auto-Generat ed Referral 04/27/2022 05/26/2023 1 1 [facility] for referral (narrative)* Diagnostic Procedure Only (Routine) - Closed Specialty Diagnoses / Procedures Referred By Contac t Referred To Contact XR IMAGING Diagnoses Pain in both knees, unspecified chronicity Procedures XR KNEE POST OP 3V AP/LAT/MERCHANT BILATERAL RADIOLOGIC EXAMINATION KNEE 3 VIEWS Jesus Alberto Roche APRN.CNP [address] [facility] [place] [facility], [address] [place] [address] Xr Imaging Referral ID Status Reason Start Date Expiration Date V isits Requested Visits Authorized [id number] Closed Auto-Generate d Referral 04/27/2022 05/26/2023 1 1 [facility] for referral (narrative)* Diagnostic Procedure Only (Routine) - Closed Specialty Diagnoses / Procedures Referred By Contac t Referred To Contact XR IMAGING Diagnoses Hallux limitus, acquired, unspecified laterality Procedures XR FOOT GENERAL 3V AP/LAT/OBL RIGHT RADEX FOOT COMPLETE MINIMUM 3 VIEWS Yumiko [place] [address] Xr Imaging Referral ID Status Reason Start Date Expiration Date V isits Requested Visits Authorized [id number] Closed Auto-Generate d Referral 05/18/2022 06/17/2023 1 1 [facility] for referral (narrative)* Diagnostic Procedure Only (Routine) - Closed Specialty Diagnoses / Procedures Referred By Contac t Referred To Contact XR IMAGING Diagnoses Hallux limitus, acquired, unspecified laterality Procedures XR FOOT GENERAL 3V AP/LAT/OBL RIGHT RADEX FOOT COMPLETE MINIMUM 3 VIEWS Yumiko Welsh [address] [place] [address] [place] [address] Referral ID Status Reason Start Date Expiration Date V isits Requested Visits Authorized [id number] Closed Auto-Generate d Referral 05/18/2022 06/17/2023 1 1 [facility] for visit Narrative* Diagnostic Procedure Only (Routine) - Closed Specialty Diagnoses / Procedures Referred By Contac t Referred To Contact XR IMAGING Diagnoses Pain in both knees, unspecified chronicity Procedures XR KNEE POST OP 3V AP/LAT/MERCHANT BILATERAL RADIOLOGIC EXAMINATION KNEE 3 VIEWS Jesus Alberto Roche, COREEN.AIRCRAFT NAVIGATOR [address] [facility] [place] [facility], [address] [place] [address] Xr Imaging Referral ID Status Reason Start Date Expiration Date V isits Requested Visits Authorized [id number] Closed Auto-Generate d Referral 04/27/2022 05/26/2023 1 1 [facility] for visit Narrative* Diagnostic Procedure Only (Routine) - Closed Specialty Diagnoses / Procedures Referred By Contac t Referred To Contact XR IMAGING Diagnoses Hallux limitus, acquired, unspecified laterality Procedures XR FOOT GENERAL 3V AP/LAT/OBL RIGHT RADEX FOOT COMPLETE MINIMUM 3 VIEWS Yumiko Welsh [address] [place] [address] [place] [address] Referral ID Status Reason Start Date Expiration Date V isits Requested Visits Authorized [id number] Closed Auto-Generate d Referral 05/18/2022 06/17/2023 1 1 [facility] Summary Purpose Family History No Family History Records FoundNo Family History Records FoundNo Family History Records FoundNo Family History Records FoundNo Family History Records FoundNo Family History Records FoundNo Family History Records Found Advance Directives Documents on File Type Date Recorded Patient Programming Instructor Expl anation Advance Directive(s) 01/23/2014 11:01 AM Documents on File Type Date Recorded Patient Programming Instructor Expl anation Advance Directive(s) 01/23/2014 11:01 AM Additional Source Comments INFORMATION SOURCE (unrecogn ized section and content) DATE CREATED AUTHOR AUTHOR'S ORGANIZ ATION 01/16/2018 [facility] DATE CREATED AUTHOR AUTHOR'S ORGANIZ ATION 01/19/2018 [facility] DATE CREATED AUTHOR AUTHOR'S ORGANIZ ATION 07/11/2019 [facility] emily Kountze DATE CREATED AUTHOR AUTHOR'S ORGANIZ ATION 10/06/2021 [facility] DATE CREATED AUTHOR AUTHOR'S ORGANIZ ATION 06/06/2022 [facility] DATE CREATED AUTHOR AUTHOR'S ORGANIZ ATION 08/23/2022 [facility] Source Comments (unrecognize d section and content) In the event this informatio n is protected by the Federal Confidentiality of Alcohol and Drug Abuse Patient Records regulations: The Federal rules restrict any use of the information to criminally investigate or prosecute any alcohol or drug abuse patient.[facility] the event this information is protected by the Federal Confidentiality of Alcohol and Drug Abuse Patient Records regulations: The Federal rules restrict any use of the information to criminally investigate or prosecute any alcohol or drug abuse patient.[facility] the event this information is protected by the Federal Confidentiality of Alcohol and Drug Abuse Patient Records regulations: The Federal rules restrict any use of the information to criminally investigate or prosecute any alcohol or drug abuse patient.[facility] the event this information is protected by the Federal Confidentiality of Alcohol and Drug Abuse Patient Records regulations: The Federal rules restrict any use of the information to criminally investigate or prosecute any alcohol or drug abuse patient.[facility] the event this information is protected by the Federal Confidentiality of Alcohol and Drug Abuse Patient Records regulations: The Federal rules restrict any use of the information to criminally investigate or prosecute any alcohol or drug abuse patient.[facility] the event this information is protected by the Federal Confidentiality of Alcohol and Drug Abuse Patient Records regulations: The Federal rules restrict any use of the information to criminally investigate or prosecute any alcohol or drug abuse patient.[facility] the event this information is protected by the Federal Confidentiality of Alcohol and Drug Abuse Patient Records regulations: The Federal rules restrict any use of the information to criminally investigate or prosecute any alcohol or drug abuse patient.[facility] the event this information is protected by the Federal Confidentiality of Alcohol and Drug Abuse Patient Records regulations: The Federal rules restrict any use of the information to criminally investigate or prosecute any alcohol or drug abuse patient.[facility] the event this information is protected by the Federal Confidentiality of Alcohol and Drug Abuse Patient Records regulations: The Federal rules restrict any use of the information to criminally investigate or prosecute any alcohol or drug abuse patient.[facility] Reason for Visit (unrecogniz ed section and content) Reason Comments appointment conflict Reason Comments Established Patient Pain Swelling Specialty Diagnoses / Procedures Referred By Rigo valente Referred To Contact [facility] Diagnoses 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, initial encounter (HCC) Pain due to total left knee replacement, initial encounter ([facility]) Procedures CONSULT TO PHYSICAL THERAPY PHYSICAL THERAPY EVALUATION HIGH COMPLEX 45 MINS Jesus Alberto Roche APRN.AIRCRAFT NAVIGATOR [address] [address] [facility] [address] [place] [address] Referral ID Status Reason Start Date Expiration Date Visits Requested Visits Authorized [id number] Authorized Auto-Generat ed Referral 2 07/23/2022 99 99 Reason Comments Patient Question Right Big toe Reason Comments Schedule Surgery Care Teams (unrecognized sec tion and content) Quality Process Lead Relationship Specialty Start Date End Date Kris Bernardo MD [address] [place] [id number] PCP - General Family Medicine 07/27/20 Quality Process Lead Relationship Specialty Start Date End Date Kris Bernardo MD [address] [place] [address] PCP - General Family Medicine 07/27/20 Quality Process Lead Relationship Specialty Start Date End Date Kris Bernardo MD [address] [place] [address] PCP - General Family Medicine 07/27/20 Quality Process Lead Relationship Specialty Start Date End Date Kris Bernardo MD [address] [place] [address] PCP - General Family Medicine 07/27/20 Quality Process Lead Relationship Specialty Start Date End Date Kris Bernardo MD [address] [place] [place] [address] PCP - General [facility] Medicine 07/27/20 Quality Process Lead Relationship Specialty Start Date End Date Kris Bernardo MD [address] [place] [place] [address] PCP - [facility] Medicine 07/27/20 Quality Process Lead Relationship Specialty Start Date End Date Fidel Mosley Chi [address] [facility] [address] [place], [place] [address] PCP - General Gerontology 05/23/22 Quality Process Lead Relationship Specialty Start Date End Date Kris Bernardo MD [address] [place] [address] PCP - General Family Medicine 07/27/20 05/22/22 [...] BE BASED ON THE PRIMARY CLINICAL RECORDS. [facility] [employer] [facility]. provides no warranty or guarantee of the accuracy or completeness of information in this document.
[2023-09-24] MEDS: Potassium Chloride Oral Tablet 20 MEQ 60 MEQ PO (06:18)
[2023-09-24 06:37] LABS: Absolute Lymphocyte Count 2.01 X10^3/uL (0.83-4.51); Basophil# 0.03 X10^3/uL; Basophil% 0.5 % (0-1); Eosinophil# 0.08 X10^3/uL; Eosinophils% 1.3 % (0-5); Hematocrit 38.3 % (37-47); Hemoglobin 12.1 g/dL (12.0-15.0); Lymphocyte # 2.01 X10^3/ul (0.83-4.51); Lymphocyte % 33.2 % (19-41); Mean Corp Hgb Conc 31.6 g/dL (32-36); Mean Corpuscular Hgb 29.4 pg (27.0-32.0); Mean Corpuscular Volume 93.2 fL (81-99); Mean Platelet Vol. 10.3 fl (6.2-12.0); Monocyte# 0.86 X10^3/uL; Monocyte% 14.2 % (0-10); NRBC Flagged by Analyzer 0 % (0-5); Neutrophil # 3.04 X10^3/uL (2.7-7.7); Neutrophil % 50.3 % (47-70); Platelet Count 255 K/mm3 (150-450); RBC Distribution Width CV 13.1 % (11.6-14.6); RBC Distribution Width SD 44.5 fl (35.1-43.9); Red Blood Count 4.11 M/mm3 (4.2-5.4); White Blood Count 6.1 K/mm3 (4.4-11.0)
[2023-09-24 07:01] LABS: AST(SGOT) 15 U/L (15-37); Alanine Aminotransfer ALT/SGPT 27 U/L (13-56); Albumin, Serum 3.3 g/dL (3.2-5.0); Alkaline Phosphatase 86 U/L (45-117); Anion Gap 1 (5-15); BUN 9 mg/dL (7-18); BUN/Creat Ratio 14.3 RATIO (10-20); Calcium,Total 8.4 mg/dL (8.5-10.1); Chloride 111 mmol/L (98-107); Creatinine, Serum 0.63 mg/dL (0.55-1.02); EST Glomerular Filtration Rate 102 mL/min (>60); Est Glom Filt Rate - Afr Amer 124 mL/min (>60); Globulin 3.2 g/dL (2.2-4.2); Glucose 92 mg/dL (74-106); Magnesium 2.3 mg/dL (1.6-2.6); Phosphorus 3.3 mg/dL (2.5-4.9); Potassium 4.5 mmol/L (3.5-5.1); Protein, Total 6.5 g/dL (6.4-8.2); Sodium Level 140 mmol/L (136-145); Thyroid Stim Hormone (TSH) 4.56 uIU/mL (0.358-3.74)
--- NOTE | 2023-09-24 07:48 | PCM.HOSP.N ---
Hospitalist Note Patient is a 63-year-old white female who presented to the emergency department at [facility] on 09/24/2023 with worsening abdominal pain. She was recently diagnosed with acute diverticulitis on CT as an outpatient. This was on September 21, 2023 at which time she was treated with oral Augmentin. She has been having worsening abdominal pain so presented to emergency department. Her symptoms began about a week prior to admission with a gradual onset of generalized cramping in the abdomen that eventually became more focused in her left lower quadrant. Although she has been taking her home Augmentin her symptoms worsened and she had increasing abdominal pain, malaise and weakness so she decided to come to the emergency department for further evaluation. She has also noted some blood in her stool. Vital signs on presentation showed temperature of 97.5, heart rate 79, blood pressure was initially 180/105 but has trended downward, respiratory was 16 oxygen saturations were 100% on room air. Her CBC showed no significant abnormalities and no left shift. Her chemistry panel showed mild hypokalemia with potassium of 3.4 but was otherwise unremarkable. Her lactic acid was normal at 0.7. Liver functions are normal. On reviewing data she had a ova and parasites that are pending from 09/21/2023 and stool lactoferrin that was positive. CT of the abdomen pelvis that was done on the showed diverticula of the proximal descending colon with wall thickening and minimal surrounding inflammation that may suggest diverticulitis and mild thickening of the wall of the distal transverse colon with no abscess or perforation. No repeat imaging was done on admission and she was admitted to medical floor and placed on IV antibiotics for suspected worsening diverticulitis. She was placed on IV fluids and placed on ceftriaxone and Flagyl. Will continue this therapy but I will go ahead and repeat a CT of her abdomen and pelvis with IV and p.o. contrast since she has had significantly worsening symptoms since starting outpatient oral antibiotics. Her initial CT was not grossly positive for severe diverticulitis.
--- NOTE | 2023-09-24 07:52 | CT_ITS ---
STUDY: CT ABDOMEN AND PELVIS WITH CONTRAST REASON FOR EXAM: Female, 63 years old. abd pain -- IV and po contrast RADIATION DOSAGE (If Supplied By Facility): CTDIvol = ( 16.17 ) mGy, DLP = ( 766.44 ) mGycm TECHNIQUE: Transaxial images were obtained from the dome of the diaphragm to the symphysis pubis without oral contrast. Oral and amp; IV Gastrografin and amp; 100mL Isovue-370 was administered. Sagittal and coronal images were reconstructed. Individualized dose optimization techniques were used for this CT. COMPARISON: 09/21/2023 FINDINGS: The visualized lung bases are unremarkable. The visualized portions of the heart are within normal limits. Normal liver. Normal gallbladder and extrahepatic biliary system. Normal spleen. Normal pancreas. Normal bilateral adrenal glands. Normal right kidney. Normal left kidney. Normal visualized stomach. Normal small intestine. Scattered colonic diverticula, particularly in the sigmoid colon without CT evidence of acute diverticulitis. Nonspecific thickening of the sigmoid suggests sequela of previous diverticulitis. An underlying lesion cannot be excluded in the sigmoid due to the extensive diverticula noted. There is non-visualization of the appendix. Normal abdominal aorta. Normal inferior vena cava. Normal retroperitoneum. Normal urinary bladder. There is absence of the uterus consistent with a prior hysterectomy. Normal abdominal wall. Normal osseous structures. CT/Abdomen/Pelvis WITH Contrast IMPRESSION: Previously noted inflammatory changes around the descending and sigmoid colon are no longer identified suggesting previously identified diverticulitis has resolved. No perforation or abscess is noted. Extensive sigmoid diverticula noted No suspicious solid organ abnormality No free intraperitoneal fluid, air, or suspicious adenopathy Electronically Signed: Luis Antonio Uriostegui MD at 13:09 EST ,
[2023-09-24] MEDS: Ceftriaxone 1 GM/50 ML BAG IV (11:33)
[2023-09-24] MEDS: Enoxaparin 40 MG/0.4 ML Syringe SC (11:35)
[2023-09-24] MEDS: Pantoprazole Sodium 40 MG in 0.9% Normal Saline (100mL MB+) 100 ML 330 MG IV (12:46)
[2023-09-24] MEDS: Bisacodyl 5 MG Tablet 20 MG PO (14:58)
[2023-09-24] MEDS: Electrolyte Solution/Peg's 4000 ML 2000 ML PO (15:28)
--- NOTE | 2023-09-24 17:54 | EX.PCM.CON.G ---
HPI Consult Data Date of Consult: 09/24/23 HPI Narrative Reason for Consultation: Diverticulitis HPI Narrative: VIJI TESFAYE, is a 63 F who [id number] with a past medical history of who essential hypertension, history of tobacco abuse, psoriatic arthritis, pseudogout, s/p partial Left knee replacement, history of iliotibial band syndrome of the LLE followed by Dr. Birch of orthopedic surgery and history of recently diagnosed acute diverticulitis diagnosed on CT as an outpatient on September 21, 2023. It was treated with oral Augmentin who presents to [facility] ER complaining of worsening abdominal pain. Mrs. Tesfaye reports her symptoms began approximately one week prior to admission with the gradual-onset of generalized, cramping abdominal pain that eventually focused in her LLQ. Though she had been taking her Augmentin her symptoms worsened with increased abdominal pain and malaise so she decided to come in for further evaluation and treatment. She is very concerned because she has not previously had blood in her stools with her acute flares of diverticulitis with at least 4 episodes in the past year. In the ER she was diagnosed with Acute Diverticulitis that Failed Outpatient Antibiotic Treatment. Her initial CT scan on 09/21/2023 displayed: Diverticula of the proximal descending colon with wall thickening and minimal surrounding inflammation which may represent diverticulitis. There is also mild thickening of the wall the distal transverse colon with diverticula which may represent diverticulitis. There is no abscess or perforation. Her CT scan today displayed: Previously noted inflammatory changes around the descending and sigmoid colon are no longer identified suggesting previously identified diverticulitis has resolved. No perforation or abscess is noted. Extensive sigmoid diverticula noted No suspicious solid organ abnormality No free intraperitoneal fluid, air, or suspicious adenopathy She is still having a lot of cramping and she is still having episodes of lower GI bleeding. She had a colonoscopy back in 2019 and it was normal. She had an upper endoscopy by Dr. Krueger and was told that she had a duodenal stricture which tried to be transversed but she developed bleeding requiring blood transfusion and an overnight stay in the hospital. [facility] Medical History (Updated 09/24/23 @ 18:[address] Angel Friend, DO) Alcohol use Anxiety Back pain Chronic pain Former smoker GERD (gastroesophageal reflux disease) History of diverticulitis History of pain when walking History of steroid therapy Hx of peptic ulcer Hx of psoriatic arthritis Hypertension Osteoarthritis Physical exam, pre-employment Post-menopausal Restless legs Wears glasses Home Medications venlafaxine 37.5 mg tablet 75 mg PO QHS depression 03/20/16 [History Last Taken 10/10/22] amlodipine 5 mg tablet 2.5 mg PO QHS BP 01/03/18 [History Last Taken 06/21/23] pantoprazole 40 mg tablet,delayed release 40 mg PO DAILY GERD 08/09/22 [History Last Taken 06/21/23] ramipril 10 mg capsule 10 mg PO BID HEART 08/09/22 [History Last Taken 10/11/22] ropinirole 0.25 mg tablet 0.5 mg PO QHS RESTLESS LEGS 08/09/22 [History Last Taken 10/10/22] furosemide 20 mg tablet 20 mg PO DAILY 01/12/23 [History Last Taken Unknown] acetaminophen 500 mg tablet 1,000 mg (2 x 500 mg) PO Q6H PRN #100 tabs 06/21/23 [Rx Last Taken Unknown] tramadol 50 mg tablet 50 - 100 mg (1 - 2 x 50 mg) PO Q8H PRN pain #42 tabs 08/11/23 [Rx Last Taken Unknown] Allergy/AdvReac Type Severity Reaction Status Date / Time adhesive tape Allergy Severe blistering Verified 08/21/23 11:32 bee venom protein (honey bee) Allergy Swelling Verified 08/21/23 11:32 Family History Other Breast cancer CAD (coronary artery disease) Heart disease Hypertension Surgical History History of appendectomy History of section History of hysterectomy History of lumbar spinal fusion History of total right knee replacement Status post left partial knee replacement Social History household members: spouse Smoking Status: Former smoker alcohol intake: current alcohol intake frequency: holidays/special occasions only substance use type: does not use what type of physical activity do you participate in: walking frequency: 1-2 times per week ROS ROS Narrative Review of systems: Constitutional: Patient admits to malaise but denies fever or chills. Eyes: Patient denies vision changes or discharge from eyes. ENT: Patient denies runny nose, sore throat or ear pain. CV: Patient denies chest pain or palpitations. Resp: Patient denies SOB or cough. GI: Patient admits to abdominal pain with nausea as per HPI. : Patient denies dysuria, hematuria or urinary frequency. MSK: Patient admits to muscle and joint pain that are chronic. Psych: Patient denies uncontrolled depression or anxiety. Hematology: Patient admits to blood in stools. Neurologic: Patient denies headache, paresthesias or focal neurologic deficits. Endocrinology: Patient denies polyuria, polydipsia and polyphagia. Physical Exam Const alert, oriented x3 and average body habitus General Appearance: cooperative HEENT normocephalic, head/scalp atraumatic and hearing grossly normal bilaterally HEENT Narrative: Mucous membranes dry. Eyes PERRL and EOMs intact bilaterally Neck no lymphadenopathy and supple Resp normal respiratory effort, no retractions, no use of accessory muscles and clear to auscultation bilaterally Cardio regular rate and regular rhythm GI normal to inspection, nondistended, normoactive bowel sounds, soft to palpation and non-distended GI Narrative: Mild LLQ TTP. Auscultation: hypoactive bowel sounds Extremity normal to inspection, full ROM and no clubbing, cyanosis or edema Skin Skin Narrative: Patient has no evidence of rash. Neuro oriented x3, CN's II-XII intact bilaterally, moves all extremities and no focal motor deficits Sensorium / Orientation: awake, alert, oriented to person, oriented to place and oriented to time Speech: speech normal Motor Exam: strength 5/5 throughout Psych affect normal Lab / Micro Data 09/24/23 05:20 09/24/23 05:20 Labs: Laboratory Results - last 24 hr 09/24/23 01:10: WBC 7.0, RBC 4.66, Hgb 13.6, Hct 42.8, MCV 91.8, MCH 29.2, MCHC 31.8 L, RDW Std Deviation 43.7, RDW Coeff of Caity 13.0, Plt Count 296, MPV 10.0, Immature Gran % (Auto) 0.300, Neut % (Auto) 57.1, Lymph % (Auto) 27.2, [place] % (Auto) 12.8 H, Eos % (Auto) 1.6, Baso % (Auto) 1.0, Absolute Neuts (auto) 4.0, Absolute Lymphs (auto) 1.89, Nucleated RBC % 0, Sodium 139, Potassium 3.4 L, Chloride 107, Carbon Dioxide 29.0, Anion Gap 3 L, BUN 12, Creatinine 0.74, Estim Creat Clear Calc 68.94, Est GFR (MDRD) Af Amer 103, Est GFR (MDRD) Non-Af 85, BUN/Creatinine Ratio 16.2, Glucose 101, Lactic Acid 0.7, Calcium 9.1, Magnesium 2.4 09/24/23 05:20: WBC 6.1, RBC 4.11 L, Hgb 12.1, Hct 38.3, MCV 93.2, MCH 29.4, MCHC 31.6 L, RDW Std Deviation 44.5 H, RDW Coeff of Caity 13.1, Plt Count 255, MPV 10.3, Immature Gran % (Auto) 0.500, Neut % (Auto) 50.3, Lymph % (Auto) 33.2, [place] % (Auto) 14.2 H, Eos % (Auto) 1.3, Baso % (Auto) 0.5, Absolute Neuts (auto) 3.0, Absolute Lymphs (auto) 2.01, Nucleated RBC % 0, Sodium 140, Potassium 4.5, Chloride 111 H, Carbon Dioxide 28.0, Anion Gap 1 L, BUN 9, Creatinine 0.63, Estim Creat Clear Calc 93.00, Est GFR (MDRD) Af Amer 124, Est GFR (MDRD) Non-Af 102, BUN/Creatinine Ratio 14.3, Glucose 92, Calcium 8.4 L, Phosphorus 3.3, Magnesium 2.3, Total Bilirubin 0.30, AST 15, ALT 27, Alkaline Phosphatase 86, Total Protein 6.5, Albumin 3.3, Globulin 3.2, Albumin/Globulin Ratio 1.0, TSH 4.56 H Imaging Radiology Impression Abdomen/Pelvis CT 09/24/23 07:52 IMPRESSION: Previously noted inflammatory changes around the descending and sigmoid colon are no longer identified suggesting previously identified diverticulitis has resolved. No perforation or abscess is noted. Extensive sigmoid diverticula noted No suspicious solid organ abnormality No free intraperitoneal fluid, air, or suspicious adenopathy Electronically Signed: Luis Antonio Uriostegui MD at 13:09 EST , Assessment & Plan Assessment/Plan (1) Acute diverticulitis: (2) GI bleed: PLAN: Plan 63-year-old with recurrent diverticulitis comes in with abdominal pain and diagnosed with inflammation possibly secondary to diverticulitis with on imaging has shown that it is resolved but she still continues to have lower GI bleeding followed by abdominal pain and cramping. It sounds to me as if this started secondary to intestinal angina as approximately 4 years ago when she had her first episode of diverticulitis she was initially brought in because she developed upper abdominal pain and chest pain in the middle of the night by her because of a possible heart attack. At that time she was diagnosed with diverticulitis and has been treated for diverticulitis every time she gets abdominal pain and cramping. I do not suspect that if this was diverticulitis it would get better that fast radiologically and she still having symptoms clinically. It sounds more to me as if she is experiencing signs and symptoms of intestinal angina associated with sigmoid colitis associated with diverticulosis that progressed to diverticulitis and ischemic colitis. Sigmoid colitis associated with diverticulosis is an indeterminate colitis which is treated similarly to inflammatory bowel disease but this did not have the antibodies or genetics associated with inflammatory bowel disease. I am not sure why she developed a duodenal stricture. Typically that is associated with nonsteroidal medications that she does not take and has not taken in the past. Also different diagnosis for duodenal stricture would be celiac disease, autoimmune enteritis, chronic pancreatitis, stricture duodenal diverticulitis. She will undergo an upper and lower endoscopy tomorrow to evaluate her upper GI tract and lower GI tract. I will also send off ANCA, ALMA, ESR, CRP, LDH, protein electrophoresis, IBD SGI. Charges/Coding Visit Charges Inpatient E&M: 09698 Init Hosp L3
[2023-09-24] MEDS: Dicyclomine 20 MG/2 ML Vial IM (18:12)
[2023-09-24] MEDS: Acetaminophen 325 MG Tablet 650 MG PO (20:04)
[2023-09-24 20:35] LABS: Erythrocyte Sedimentation Rate 9 mm/hr (0-30)
[2023-09-24 20:41] LABS: LDH 166 U/L (84-246)
[2023-09-24] MEDS: Venlafaxine HCl 75 MG Tablet PO (21:20)
[2023-09-24] MEDS: amLODIPine 2.5 MG Tablet PO (21:21)
[2023-09-24] MEDS: MELATONIN 3 MG TABLET PO (21:21)
[2023-09-24] MEDS: Pramipexole Di-HCl 0.25 MG Tablet PO (21:21)
[2023-09-25] VITALS (13 sets, daily range): BP systolic 129–190; BP diastolic 71–107; PULSE 63–89; RESP 14–18; TEMP 36.1–38.1; O2SAT 95–100; BMI 28.7
--- NOTE | 2023-09-25 | COLBX_PTH ---
PATHOLOGY RESULTS PATIENT: VIJI TESFAYE LOC: [facility] U#:[id number] AGE/SX: 63/F ROOM: [facility] RE09/24/[address]: Dr. Sherif Benson MD : 1960 BED: 1 DIS: 09/26/2023 SPEC #: [id number] RECD: 09/25/23 14:07 STATUS: RUSTY SANDERS #: [id number] RADHA: 09/25/23 00:[address]: Stanley Godwin DEPT: SURGICAL PATHOLOGY RECD BY: Krish Saravia ENTERED: 09/26/23 08:53 SP TYPE: COLON BX OTHR DR: Dr. Jorge L May, DO Dr. Jessica Quintero, MD Dr. Hernandez López Dr., Chi, MD Tissues: Duodenum, NOS SPLENIC FLEXURE Procedures: Surgery Specimen Level IV Comments: @ Ordering doctor for SUIV edited from to @ by MATEO at 09/26/23 1401 @ Submitting doctor edited from to @ by RGOOD at 09/26/23 1401 HEADER OPERATION: Colonoscopy, EGD, biopsy PRE-OP DIAGNOSIS: Duodenal stricture, lower GI bleed TISSUE SUBMITTED: A - Duodenum biopsy, B - Splenic flexure biopsy MICROSCOPIC DIAGNOSIS A. Duodenum, biopsy: Minimal nonspecific chronic inflammation. B. Colon at splenic flexure, biopsy: Focal mucosal ulceration. AM:bobbi 09/27/2023 MICROSCOPIC DESCRIPTION Slides are reviewed. GROSS DESCRIPTION A - Received in fixative is one container labeled with the patient's name and designated duodenum biopsy. The specimen consists of multiple irregular fragments of light grossman soft tissue that in aggregate measure 1.5 x 0.5 x 0.1 cm. The specimen is totally submitted in one cassette. B - Received in fixative is one container labeled with the patient's name and designated splenic flexure biopsy. The specimen consists of multiple irregular fragments of light grossman soft tissue that in aggregate measure 0.8 x 0.2 x 0.1 cm. The specimen is totally submitted in one cassette. / PELON:bobbi 09/26/2023 TC:3 CPT: 06255 x2
[2023-09-25] MEDS: 0.9% Normal Saline (1000mL) 1,000 ML 100 ML IV ×2 (03:59→14:44)
--- NOTE | 2023-09-25 05:00 | EKG12_ITS ---
Test Reason : AM EKG Blood Pressure : / mmHG Vent. Rate : 061 BPM Atrial Rate : 061 BPM P-R Int : 134 ms QRS Dur : 074 ms QT Int : 402 ms P-R-T Axes : 049 008 020 degrees QTc Int : 404 ms Normal sinus rhythm Normal ECG When compared with ECG of 19-JUN-2023 12:30, Vent. rate has decreased BY 44 BPM Confirmed by Olegario Nam ([id number]), photography editor TATA DANIELLE ([id number]) on 09/26/2023 7:48:37 AM Referred By: Confirmed By:Olegario Nam
[2023-09-25] MEDS: metroNIDAZOLE 500 MG/100 ML BAG 100 MG IV ×3 (05:07→20:43)
[2023-09-25 05:27] LABS: Absolute Lymphocyte Count 1.49 X10^3/uL (0.83-4.51); Absolute Neutrophil Count 2.7 X10^3/uL (2.0-7.7); Basophil# 0.04 X10^3/uL; Basophil% 0.8 % (0-1); Eosinophil# 0.11 X10^3/uL; Eosinophils% 2.1 % (0-5); Hematocrit 38.3 % (37-47); Hemoglobin 12.2 g/dL (12.0-15.0); Lymphocyte # 1.49 X10^3/ul (0.83-4.51); Mean Corp Hgb Conc 31.9 g/dL (32-36); Mean Corpuscular Hgb 29.8 pg (27.0-32.0); Mean Corpuscular Volume 93.4 fL (81-99); Monocyte# 0.74 X10^3/uL; Monocyte% 14.4 % (0-10); NRBC Flagged by Analyzer 0 % (0-5); Neutrophil # 2.73 X10^3/uL (2.7-7.7); Neutrophil % 53.3 % (47-70); Platelet Count 267 K/mm3 (150-450); RBC Distribution Width SD 44.8 fl (35.1-43.9); White Blood Count 5.1 K/mm3 (4.4-11.0)
[2023-09-25 05:39] LABS: Anion Gap 5 (5-15); BUN 6 mg/dL (7-18); BUN/Creat Ratio 8.8 RATIO (10-20); Calcium,Total 8.6 mg/dL (8.5-10.1); Chloride 110 mmol/L (98-107); Creatinine, Serum 0.68 mg/dL (0.55-1.02); EST Glomerular Filtration Rate 93 mL/min (>60); Est Glom Filt Rate - Afr Amer 113 mL/min (>60); Estimated Creatinine Clearance 86.65 ml/min; Glucose 89 mg/dL (74-106); Sodium Level 142 mmol/L (136-145)
[2023-09-25] MEDS: Morphine 2 MG/ML Syringe IV ×3 (09:01→20:44)
[2023-09-25] MEDS: Dicyclomine 10 MG Capsule PO ×2 (09:03→15:38)
[2023-09-25] MEDS: Enoxaparin 40 MG/0.4 ML Syringe SC (09:04)
[2023-09-25] MEDS: Pantoprazole Sodium 40 MG in 0.9% Normal Saline (100mL MB+) 100 ML 330 MG IV (09:07)
[2023-09-25] MEDS: Ceftriaxone 1 GM/50 ML BAG IV (11:27)
[2023-09-25 11:32] LABS: PTHIN 79.8 pg/mL (18.4-80.1)
--- NOTE | 2023-09-25 12:00 | CASEMGMT ---
RN CM Face to Face with patient for initial transition planning/care coordination assessment. RN CM introduced self and role at [facility]. Patient lying in bed, alert and oriented, at bedside. Patient willing to participate in assessment and is able to answer all questions appropriately. Care providers, pharmacy, and demographics verified. PCP: Dimitri Specialists: radha Srinivasan; [facility] Preferred Pharmacy: [facility] Insurance: [facility] Prescription Benefit: yes Living Will/HPOA: Living will yes, no HPOA LNOK: , daughter Living Arrangements: yes Transportation: self, DME/HHC: patient has cane and walker at home. NO previous HHC or SNF Patient wishes to discharge home, denies need for home health at this time. Patient states he has no further needs or concerns at this time. CM to follow for discharge planning needs that may arise. Disposition Plan: Patient to discharge home with family support and follow-up plans in place. Jalyn ALMONTE, RN, CM
--- NOTE | 2023-09-25 14:25 | OP.EGD_ITS ---
Patient Name: Judy Reagan Procedure Date: 09/25/2023 12:27 PM Date of : 1960 Age: 63 Procedure: Upper GI endoscopy Indications: Epigastric abdominal pain, Hematochezia Providers: Stanley Godwin DO Medicines: Monitored Anesthesia Care Patient Profile: This is a 63 year old female. Refer to note in patient chart for documentation of history and physical. Patient has symptoms of acute epigastric abdominal pain. Complications: No immediate complications. Procedure: Pre-Anesthesia Assessment: - Prior to the procedure, a History and Physical was performed, and patient medications and allergies were reviewed. The patient is competent. The risks and benefits of the procedure and the sedation options and risks were discussed with the patient. All questions were answered and informed consent was obtained. Patient identification and proposed procedure were verified by the physician in the pre-procedure area. Mental Status Examination: alert and oriented. Airway Examination: normal oropharyngeal airway and neck mobility. Respiratory Examination: clear to auscultation. CV Examination: normal. Prophylactic Antibiotics: The patient does not require prophylactic antibiotics. Prior Anticoagulants: The patient has taken no anticoagulant or antiplatelet agents. ASA Grade Assessment: II - A patient with mild systemic disease. After reviewing the risks and benefits, the patient was deemed in satisfactory condition to undergo the procedure. The anesthesia plan was to use monitored anesthesia care (MAC). Immediately prior to administration of medications, the patient was re-assessed for adequacy to receive sedatives. The heart rate, respiratory rate, oxygen saturations, blood pressure, adequacy of pulmonary ventilation, and response to care were monitored throughout the procedure. The physical status of the patient was re-assessed after the procedure. After obtaining informed consent, the endoscope was passed under direct vision. Throughout the procedure, the patient's blood pressure, pulse, and oxygen saturations were monitored continuously. The colonoscope was introduced through the mouth, and advanced to the second part of duodenum. The upper GI endoscopy was accomplished without difficulty. The patient tolerated the procedure well. Scope In: 1:23:01 PM Scope Out: 1:29:01 PM Total Procedure Duration Time 0 hours 6 minutes 0 seconds Findings: The examined esophagus was normal. The entire examined stomach was normal. A medium-sized hiatal hernia was present. An acquired benign-appearing, intrinsic severe stenosis was found in the first portion of the duodenum and was traversed. Biopsies were taken with a cold forceps for histology. Verification of patient identification for the specimen was done. Estimated blood loss was minimal. A TTS dilator was passed through the scope. Dilation with a 12 mm pyloric balloon dilator was performed. The dilation site was examined and showed moderate mucosal disruption. Estimated blood loss was minimal. Impression: - Normal esophagus. - Normal stomach. - Medium-sized hiatal hernia. - Acquired duodenal stenosis. Biopsied. Dilated. Recommendation: - [facility]. - Resume regular diet. - Continue present medications. - Await pathology results. - She may need a duodenal stent in the future Procedure Code(s): --- Professional --- 27662, Esophagogastroduodenoscopy, flexible, transoral; with dilation of gastric/duodenal stricture(s) (eg, balloon, bougie) 39217, 59,51, Esophagogastroduodenoscopy, flexible, transoral; with biopsy, single or multiple CPT copyright 2021 [employer]. All rights reserved. The codes documented in this report are preliminary and upon bass fisher review may be revised to meet current compliance requirements. Stanley Godwin DO 09/25/2023 2:24:40 PM This report has been signed electronically. Number of Addenda: 0 Note Initiated On: 09/25/2023 12:27 PM
--- NOTE | 2023-09-25 14:25 | OP.CCLET_ITS ---
09/25/2023 Hernandez Mosley MD [address] [place] [address] Re : Upper GI endoscopy procedure for Judy Reagan Dear Dr. Mosley This procedure was performed on Monday, September 25, 2023. My impressions and recommendations are as follows: Impressions : - Normal esophagus. - Normal stomach. - Medium-sized hiatal hernia. - Acquired duodenal stenosis. Biopsied. Dilated. Recommendations : - [facility]. - Resume regular diet. - Continue present medications. - Await pathology results. - She may need a duodenal stent in the future My findings are described in the full procedure note, which is enclosed. If I can be of further assistance, please feel free to contact me at . Sincerely, Stanley Godwin, 09/25/2023 2:24:40 PM This report has been signed electronically.
--- NOTE | 2023-09-25 14:31 | OP.COLON_ITS ---
Patient Name: Judy Reagan Procedure Date: 09/25/2023 1:29 PM Date of : 1960 Age: 63 Procedure: Colonoscopy Indications: Hematochezia Providers: Stanley Godwin DO Medicines: Monitored Anesthesia Care Patient Profile: This is a 63 year old female. Refer to note in patient chart for documentation of history and physical. Patient has symptoms of acute epigastric abdominal pain. Last Colonoscopy: 5 years ago. Complications: No immediate complications. Procedure: Pre-Anesthesia Assessment: - Prior to the procedure, a History and Physical was performed, and patient medications and allergies were reviewed. The patient is competent. The risks and benefits of the procedure and the sedation options and risks were discussed with the patient. All questions were answered and informed consent was obtained. Patient identification and proposed procedure were verified by the physician in the pre-procedure area. Mental Status Examination: alert and oriented. Airway Examination: normal oropharyngeal airway and neck mobility. Respiratory Examination: clear to auscultation. CV Examination: normal. Prophylactic Antibiotics: The patient does not require prophylactic antibiotics. Prior Anticoagulants: The patient has taken no anticoagulant or antiplatelet agents. ASA Grade Assessment: II - A patient with mild systemic disease. After reviewing the risks and benefits, the patient was deemed in satisfactory condition to undergo the procedure. The anesthesia plan was to use monitored anesthesia care (MAC). Immediately prior to administration of medications, the patient was re-assessed for adequacy to receive sedatives. The heart rate, respiratory rate, oxygen saturations, blood pressure, adequacy of pulmonary ventilation, and response to care were monitored throughout the procedure. The physical status of the patient was re-assessed after the procedure. After I obtained informed consent, the scope was passed under direct vision. Throughout the procedure, the patient's blood pressure, pulse, and oxygen saturations were monitored continuously. The colonoscope was introduced through the anus and advanced to the terminal ileum. The colonoscopy was performed without difficulty. The patient tolerated the procedure well. The quality of the bowel preparation was adequate. The terminal ileum, ileocecal valve, appendiceal orifice, and rectum were photographed. Scope In: 1:32:14 PM Scope Withdrawal Time 0 hours 9 minutes 39 seconds Scope Out: 1:45:23 PM Total Procedure Duration Time 0 hours 13 minutes 9 seconds Findings: The perianal and digital rectal examinations were normal. Multiple small and large-mouthed diverticula were found in the recto-sigmoid colon, sigmoid colon, descending colon and splenic flexure. Localized severe inflammation characterized by erythema, friability and granularity was found in the sigmoid colon, in the descending colon and at the splenic flexure. Impression: - Diverticulosis in the recto-sigmoid colon, in the sigmoid colon, in the descending colon and at the splenic flexure. - Localized severe inflammation was found in the sigmoid colon, in the descending colon and at the splenic flexure secondary to ischemic colitis. - No specimens collected. Recommendation: - Resume regular diet [Duration]. - [facility]. - No repeat colonoscopy. - Continue present medications. Procedure Code(s): --- Professional --- 17255, Colonoscopy, flexible; diagnostic, including collection of specimen(s) by brushing or washing, when performed (separate procedure) CPT copyright 2021 [employer]. All rights reserved. The codes documented in this report are preliminary and upon tie in hand review may be revised to meet current compliance requirements. Stanley Godwin DO 09/25/2023 2:31:23 PM This report has been signed electronically. Number of Addenda: 0 Note Initiated On: 09/25/2023 1:29 PM
--- NOTE | 2023-09-25 14:31 | OP.CCLET_ITS ---
09/25/2023 Hernandez Mosley MD [address] [place] [address] Re : Colonoscopy procedure for Judy Reagan Dear Dr. Mosley This procedure was performed on Monday, September 25, 2023. My impressions and recommendations are as follows: Impressions : - Diverticulosis in the recto-sigmoid colon, in the sigmoid colon, in the descending colon and at the splenic flexure. - Localized severe inflammation was found in the sigmoid colon, in the descending colon and at the splenic flexure secondary to ischemic colitis. - No specimens collected. Recommendations : - Resume regular diet [Duration]. - [facility]. - No repeat colonoscopy. - Continue present medications. My findings are described in the full procedure note, which is enclosed. If I can be of further assistance, please feel free to contact me at . Sincerely, Stanley Godwin, 09/25/2023 2:31:23 PM This report has been signed electronically.
[2023-09-25] MEDS: hydrALAZINE 20 MG/ML Vial 10 MG IV (16:02)
--- NOTE | 2023-09-25 17:07 | PN.HOSP_ITS ---
Reason for Visit Reason for Visit: Diagnoses Diverticulitis of intestine, part unspecified, without perforation or abscess w ithout bleeding (09/24/23) Gastrointestinal hemorrhage, unspecified (09/24/23) Objective Data Objective Data Vital Signs: Vital Signs Temp Pulse Resp BP Pulse Ox O2 Del Method 97.1 F L 80 16 167/89 H 100 Room Air 09/25/23 16:23 09/25/23 16:23 09/25/23 16:23 09/25/23 16:23 09/25/23 16:23 09/25/23 16:23 Oxygen Delivery Method Room Air Weight: 167 lb 5.294 oz Body Mass Index (BMI) 28.7 Intake & Output: Intake and Output for Last 24 Hours 09/23/23 09/24/23 09/25/23 23:59 23:59 23:59 Intake Total 4500.01 / 4500.01 1811.66 / 1811.66 Output Total 0 / 0 Balance 4500.01 / 4500.01 1811.66 / 1811.66 Lab / Micro Data 09/25/23 04:50 09/25/23 04:50 Labs: Laboratory Results - last 24 hr 09/24/23 19:50: ESR 9, Lactate Dehydrogenase 166, C-React Prot Ext Range 12.90 H 09/25/23 04:50: WBC 5.1, RBC 4.10 L, Hgb 12.2, Hct 38.3, MCV 93.4, MCH 29.8, MCH C 31.9 L, RDW Std Deviation 44.8 H, RDW Coeff of Caity 13.0, Plt Count 267, MPV 10.0, Immature Gran % (Auto) 0.400, Neut % (Auto) 53.3, Lymph % (Auto) 29.0, [place] % (Auto) 14.4 H, Eos % (Auto) 2.1, Baso % (Auto) 0.8, Absolute Neuts (auto) 2.7, Absolute Lymphs (auto) 1.49, Nucleated RBC % 0, Sodium 142, Potassium 4.0, Chloride 110 H, Carbon Dioxide 27.0, Anion Gap 5, BUN 6 L, Creatinine 0.68, Estim Creat Clear Calc 86.65, Est GFR (MDRD) Af Amer 113, Est GFR (MDRD) Non-Af 93, BUN/Creatinine Ratio 8.8 L, Glucose 89, Calcium 8.6, PTH Intact 79.8 Physical Exam Narrative Seen and examined. Patient was admitted with lower cramping abdominal pain and bloody stool. She stated diffuse abdominal pain but predominantly over left lower quadrant. She had fourth episode of diverticulitis and little over a year. Plan for colonoscopy today. Physical exam General: Alert, Oriented x3, Cooperative HEENT: Atraumatic, PERRLA, EOMI, Normocephalic Oral: No Gingival or Mucosal Lesions/ Ulcerations Neck: Supple, No JVD, Negative Carotid Bruits Chest wall/Lungs: Air entry diminished in bilateral lung bases. No crepitation/rhonchi Cardiovascular: Regular rate, Regular Rhythm, Normal S1, Normal S2, No M/G/R Abdomen: Bowel Sounds Present, Soft, mild tenderness over left lower quadrant on deep palpation. Not distended : No dysuria. No renal angle tenderness. No suprapubic tenderness. Extremities: No edema, Capillary Refill Less than 3 Seconds Skin: No rashes, No breakdown Musculoskeletal: No Tenderness to Palpation of Joints or Extremities Neurological: Cranial nerves II-XII grossly intact, DTR 2+/4. No acute focal neurological deficit. Psych/Mental Status: Normal Affect, Appropriate. Assessment & Plan Assessment/Plan (1) Acute diverticulitis: PLAN: Plan This is a 63-year-old female admitted for diffuse abdominal pain predominantly left lower quadrant, hematochezia. Recently diagnosed with diverticulitis, fourth episode little over a year and started on oral Augmentin. 1. Acute Diverticulitis that Failed Outpatient Antibiotic Treatment - Admit to general medical floor. Continue broad-spectrum antibiotics with IV Rocephin and IV Flagyl to cover Gram-negatives and anaerobes. Give Tylenol prn for [id number] (level 1-5/10) pain or fever. Give Morphine IV prn for severe (level 6-10/10) pain. 3/4: Patient had colonoscopy today. CRP elevated. Impressions : - Diverticulosis in the recto-sigmoid colon, in the sigmoid colon, in the descending colon and at the splenic flexure. - Localized severe inflammation was found in the sigmoid colon, in the descending colon and at the splenic flexure secondary to ischemic colitis. - No specimens collected. Recommendations : - Resume regular diet - No repeat colonoscopy. 2. Hypokalemia of 3.4 mmol/L present on admission complicating #1 - Give supplemental KCl and then recheck BMP in the AM to ensure improvement. 3/4: Serum potassium normal 4.0. Sodium 142. 3. Essential hypertension - Continue home regimen and give IV Hydralazine prn for systolic blood pressure > 160 mm Hg. 4. History of tobacco abuse - Tobacco Cessation will be strongly encouraged. 5. Psoriatic arthritis - Stable. 6. Pseudogout - Stable. 7. Depression - Continue Venlafaxine as preious plus give prn Xanax for breakthrough symptoms. 8. RLS - Resume Requip. 9. GERD; with history of PUD - Continue PPI IV. 10. DDD of the lumbar spine; s/p lumbar fusion (2022) - Stable. 11. OA; s/p partial Left knee replacement - Stable. Give Tylenol prn. 12. History of iliotibial band syndrome of the LLE followed by Dr. Birch of orthopedic surgery - Stable. 13. DVT prophylaxis - Lovenox 40 mg sq daily plus SCD's. Laboratory Results 09/25/23 04:50: WBC 5.1, RBC 4.10 L, Hgb 12.2, Hct 38.3, MCV 93.4, MCH 29.8, MCHC 31.9 L, RDW Std Deviation 44.8 H, RDW Coeff of Caity 13.0, Plt Count 267, MPV 10.0, Immature Gran % (Auto) 0.400, Neut % (Auto) 53.3, Lymph % (Auto) 29.0, [place] % (Auto) 14.4 H, Eos % (Auto) 2.1, Baso % (Auto) 0.8, Absolute Neuts (auto) 2.7, Absolute Lymphs (auto) 1.49, Nucleated RBC % 0, Sodium 142, Potassium 4.0, Chloride 110 H, Carbon Dioxide 27.0, Anion Gap 5, BUN 6 L, Creatinine 0.68, Estim Creat Clear Calc 86.65, Est GFR (MDRD) Af Amer 113, Est GFR (MDRD) Non-Af 93, BUN/Creatinine Ratio 8.8 L, Glucose 89, Calcium 8.6, PTH Intact 79.8 Charges/Coding Visit Charges Inpatient E&M: 21535 Subs Hosp L2
[2023-09-25] MEDS: Venlafaxine HCl 75 MG Tablet PO (20:38)
[2023-09-25] MEDS: Pramipexole Di-HCl 0.25 MG Tablet PO (20:38)
[2023-09-25] MEDS: amLODIPine 2.5 MG Tablet PO (20:38)
[2023-09-25] MEDS: MELATONIN 3 MG TABLET PO (22:16)
[2023-09-26] MEDS: 0.9% Normal Saline (1000mL) 1,000 ML 100 ML IV (01:30)
[2023-09-26 02:45] VITALS: BP 160/80; PULSE 62; RESP 16; TEMP 36.8; O2SAT 97
[2023-09-26 03:13] VITALS: BMI 27.9
[2023-09-26] MEDS: metroNIDAZOLE 500 MG/100 ML BAG 100 MG IV (05:34)
[2023-09-26] MEDS: Dicyclomine 10 MG Capsule PO ×2 (05:35→10:16)
[2023-09-26 06:41] LABS: Absolute Lymphocyte Count 1.54 X10^3/uL (0.83-4.51); Absolute Neutrophil Count 1.7 X10^3/uL (2.0-7.7); Basophil# 0.03 X10^3/uL; Basophil% 0.7 % (0-1); Eosinophil# 0.18 X10^3/uL; Eosinophils% 4.3 % (0-5); Hematocrit 40.6 % (37-47); Hemoglobin 13.1 g/dL (12.0-15.0); Lymphocyte # 1.54 X10^3/ul (0.83-4.51); Lymphocyte % 37.1 % (19-41); Mean Corp Hgb Conc 32.3 g/dL (32-36); Mean Corpuscular Hgb 29.6 pg (27.0-32.0); Mean Corpuscular Volume 91.6 fL (81-99); Mean Platelet Vol. 9.6 fl (6.2-12.0); Monocyte# 0.65 X10^3/uL; Monocyte% 15.7 % (0-10); NRBC Flagged by Analyzer 0 % (0-5); Neutrophil # 1.73 X10^3/uL (2.7-7.7); Neutrophil % 41.7 % (47-70); Platelet Count 296 K/mm3 (150-450); RBC Distribution Width CV 12.8 % (11.6-14.6); RBC Distribution Width SD 42.8 fl (35.1-43.9); Red Blood Count 4.43 M/mm3 (4.2-5.4); White Blood Count 4.2 K/mm3 (4.4-11.0)
[2023-09-26 07:12] VITALS: O2SAT 97
--- NOTE | 2023-09-26 07:29 | PCM.DC ---
Discharge Instructions Diet Discharge Diet: Soft diet (For the next 3 to 4 days) Activity Discharge Activity: Return to Normal Activity Weight Bearing Status: Weight bearing as tolerated Dressing / Incision Call your doctor if you observe: Fever of 101 or Higher, Coldness, Increased Pain, Numbness or Tingling, Change in Color, Inability to urinate, Inability to have a bowel movement, Using more than 1 pad per hour, Shortness of breath, Dizziness, Fainting spells, Swelling in the ankles, Chest pain, Prolonged hiccupping, Increased palpitations (irregular heartbeat) and Calf discomfort Follow Up Care When: IN 2 WEEKS Test Results: Test results from this visit will be discussed in further detail at your follow-up appointment, if applicable. Discharge Plan Admission Admit Date/Time: 09/24/23 03:29 Primary Reason for Your Visit: Acute diverticulitis: Lower GI bleed. Attending Provider: Sherif Benson Primary Care Provider: Hernandez Mosley Chi [employer] Providers: Jorge L May; Jessica Quintero Discharge Orders/Prescriptions Prescriptions: New polyethylene glycol 3350 17 gram Powder In Packet 17 g PO DAILY PRN (Reason: CONSTIPATION) Qty: 0 0RF dicyclomine 10 mg Capsule 10 mg PO TIDAC PRN (Reason: ABDOMINAL CRAMPS) 30 Days Qty: 30 0RF acidophilus-pectin, citrus 25 million cell -100 mg Tablet 2 tab PO BID Qty: 0 0RF Rx Instructions: [id number]. Probiotic. At least for 2 week. ciprofloxacin HCl 500 mg tablet 500 mg PO BID 6 Days Qty: 12 0RF metronidazole 500 mg tablet 500 mg PO Q8H 5 Days Qty: 15 0RF Continued venlafaxine 37.5 MG tablet 75 mg PO QHS Patient Comments: mood amlodipine 5 MG tablet 2.5 mg PO QHS ropinirole 0.25 mg tablet 0.5 mg PO QHS Patient Comments: TAKE 2 TABLETS BY MOUTH ONCE DAILY AT BEDTIME FOR 90 DAYS pantoprazole 40 MG tablet,delayed release (DR/EC) 40 mg PO DAILY Patient Comments: acid reflux ramipril 10 MG capsule 10 mg PO BID acetaminophen 500 mg tablet 1,000 mg PO Q6H PRN Qty: 100 0RF tramadol 50 mg tablet 50 - 100 mg PO Q8H PRN (Reason: pain) Qty: 10 0RF Held furosemide 20 mg tablet 20 mg PO DAILY Hold Instructions: Hold for 2 days Referrals / Follow Up: Rian Fierro MD [Med Staff - Active Staff] - 10/18/23 2:30 pm Hernandez Mosley Chi, MD [Primary Care Provider] - Stanley Godwin DO [Med Staff - Active Staff] - Within 3 Months Disposition Disposition (needs filled in before D/C Order can be placed): Home, Self Care
[2023-09-26] MEDS: Acetaminophen 325 MG Tablet 650 MG PO (07:50)
[2023-09-26 07:57] LABS: Anion Gap 4 (5-15); BUN 10 mg/dL (7-18); BUN/Creat Ratio 14.4 RATIO (10-20); Calcium,Total 8.9 mg/dL (8.5-10.1); Chloride 110 mmol/L (98-107); EST Glomerular Filtration Rate 91 mL/min (>60); Est Glom Filt Rate - Afr Amer 110 mL/min (>60); Estimated Creatinine Clearance 83.27 ml/min; Glucose 104 mg/dL (74-106); Potassium 3.3 mmol/L (3.5-5.1); Sodium Level 141 mmol/L (136-145)
--- NOTE | 2023-09-26 08:39 | DS.PCM_ITS ---
Providers Date of Admission: 09/24/23 Date of Discharge: 09/26/23 Primary Care Physician: Dr. Hernandez Mosley MD Consultations 09/24/23 13:22 Consult: Gastroenterology Routine Consulting Provider: [facility] Reason for Consult: abdominal pain/Bleeding EMERGENT Consult: No Notified: Yes Date Notified: 09/24/23 Time Notified: 13:22 Method of Notification: Verbal Reason For Visit: ACUTE DIVERTICULITIS THAT FAILED OUTPATIENT ATB [place] Diagnosis Discharge Diagnosis (1) Acute diverticulitis: Status: Acute Code(s): K57.92 - Diverticulitis of intestine, part unspecified, without perforation or abscess without bleeding Plan This is a 63-year-old female admitted for diffuse abdominal pain predominantly left lower quadrant, hematochezia. Recently diagnosed with diverticulitis, fourth episode little over a year and started on oral Augmentin. 1. Acute Diverticulitis that Failed Outpatient Antibiotic Treatment - Admit to general medical floor. Continue broad-spectrum antibiotics with IV Rocephin and IV Flagyl to cover Gram-negatives and anaerobes. Give Tylenol prn for [id number] (level 1-5/10) pain or fever. Give Morphine IV prn for severe (level 6-10/10) pain. 3/4: Patient had colonoscopy today. CRP elevated. Impressions : - Diverticulosis in the recto-sigmoid colon, in the sigmoid colon, in the descending colon and at the splenic flexure. - Localized severe inflammation was found in the sigmoid colon, in the descending colon and at the splenic flexure secondary to ischemic colitis. - No specimens collected. Recommendations : - Resume regular diet - No repeat colonoscopy. 35: Patient is tolerating soft diet well. Prescription for Cipro and Flagyl given to complete a total of 1 week of antibiotics. Advised [id number] probiotics for 2 weeks. Patient requested tramadol for severe abdominal pain which she is on, 50?100 mg every 8 hourly as needed total 10 tablets prescribed. Dicyclomine 10 mg capsule every 8 hourly as needed also prescribed for abdominal cramps. Follow-up with surgeon Dr. Fierro in 2 to 3 weeks time for recurrent episodes of diverticulitis. 2. Hypokalemia of 3.4 mmol/L present on admission complicating #1 - Give supplemental KCl and then recheck BMP in the AM to ensure improvement. 3/4: Serum potassium normal 4.0. Sodium 142. 3. Essential hypertension - Continue home regimen and give IV Hydralazine prn for systolic blood pressure > 160 mm Hg. 4. History of tobacco abuse - Tobacco Cessation will be strongly encouraged. 5. Psoriatic arthritis - Stable. 6. Pseudogout - Stable. 7. Depression - Continue Venlafaxine as preious plus give prn Xanax for breakthrough symptoms. 8. RLS - Resume Requip. 9. GERD; with history of PUD - Continue PPI IV. 10. DDD of the lumbar spine; s/p lumbar fusion (2022) - Stable. 11. OA; s/p partial Left knee replacement - Stable. Give Tylenol prn. 12. History of iliotibial band syndrome of the LLE followed by Dr. Birch of orthopedic surgery - Stable. 13. DVT prophylaxis - Lovenox 40 mg sq daily plus SCD's. Laboratory Results Laboratory Results 09/25/23 04:50: PTH Intact 79.8 09/26/23 06:05: WBC 4.2 L, RBC 4.43, Hgb 13.1, Hct 40.6, MCV 91.6, MCH 29.6, MCHC 32.3, RDW Std Deviation 42.8, RDW Coeff of Caity 12.8, Plt Count 296, MPV 9.6, Immature Gran % (Auto) 0.500, Neut % (Auto) 41.7 L, Lymph % (Auto) 37.1, [place] % (Auto) 15.7 H, Eos % (Auto) 4.3, Baso % (Auto) 0.7, Absolute Neuts (auto) 1.7 L, Absolute Lymphs (auto) 1.54, Nucleated RBC % 0, Sodium 141, Potassium 3.3 L, Chloride 110 H, Carbon Dioxide 27.0, Anion Gap 4 L , BUN 10, Creatinine 0.70, Estim Creat Clear Calc 83.27, Est GFR (MDRD) Af Amer 110, Est GFR (MDRD) Non-Af 91, BUN/Creatinine Ratio 14.4, Glucose 104, Calcium 8.9 Medications at Discharge Home Medications venlafaxine 37.5 mg tablet 75 mg PO QHS depression 03/20/16 amlodipine 5 mg tablet 2.5 mg PO QHS BP 01/03/18 pantoprazole 40 mg tablet,delayed release 40 mg PO DAILY GERD 08/09/22 ramipril 10 mg capsule 10 mg PO BID HEART 08/09/22 ropinirole 0.25 mg tablet 0.5 mg PO QHS RESTLESS LEGS 08/09/22 furosemide 20 mg tablet 20 mg PO DAILY 01/12/23 acetaminophen 500 mg tablet 1,000 mg (2 x 500 mg) PO Q6H PRN #100 tabs 06/21/23 acidophilus 25 million cell-pectin, citrus 100 mg tablet 2 tab PO BID #0 tabs 09/26/23 ciprofloxacin HCl 500 mg tablet 500 mg PO BID 6 days #12 tabs 09/26/23 dicyclomine 10 mg capsule 10 mg PO TIDAC PRN ABDOMINAL CRAMPS 30 days #30 caps 09/26/23 metronidazole 500 mg tablet 500 mg PO Q8H 5 days #15 tabs 09/26/23 polyethylene glycol 3350 17 gram oral powder packet 17 g PO DAILY PRN CONSTIPATION #0 ea 09/26/23 tramadol 50 mg tablet 50 - 100 mg (1 - 2 x 50 mg) PO Q8H PRN pain #10 tabs 09/26/23 Physical Exam Narrative Seen and examined. Abdominal pain has much improved. She started on diet from yesterday. Has not moved bowel therefore started on MiraLAX 17 g daily and senna S2 tablet twice daily. Physical exam General: Alert, Oriented x3, Cooperative HEENT: Atraumatic, PERRLA, EOMI, Normocephalic Oral: No Gingival or Mucosal Lesions/ Ulcerations Neck: Supple, No JVD, Negative Carotid Bruits Chest wall/Lungs: Air entry diminished in bilateral lung bases. No crepitation/rhonchi Cardiovascular: Regular rate, Regular Rhythm, Normal S1, Normal S2, No M/G/R Abdomen: Bowel Sounds Present, Soft, tenderness has much improved almost resolved. Not distended : No dysuria. No renal angle tenderness. No suprapubic tenderness. Extremities: No edema, Capillary Refill Less than 3 Seconds Skin: No rashes, No breakdown Musculoskeletal: No Tenderness to Palpation of Joints or Extremities Neurological: Cranial nerves II-XII grossly intact, DTR 2+/4. No acute focal neurological deficit. Psych/Mental Status: Normal Affect, Appropriate. Weight / BMI Weight Weight: 163 lb 9.328 oz Body Mass Index (BMI) 27.9 ABG / Lab / Microbiology Data 09/26/23 06:05 09/26/23 06:05 Laboratory: Laboratory Results - last 24 hr 09/25/23 04:50: PTH Intact 79.8 09/26/23 06:05: WBC 4.2 L, RBC 4.43, Hgb 13.1, Hct 40.6, MCV 91.6, MCH 29.6, MCHC 32.3, RDW Std Deviation 42.8, RDW Coeff of Caity 12.8, Plt Count 296, MPV 9.6, Immature Gran % (Auto) 0.500, Neut % (Auto) 41.7 L, Lymph % (Auto) 37.1, [place] % (Auto) 15.7 H, Eos % (Auto) 4.3, Baso % (Auto) 0.7, Absolute Neuts (auto) 1.7 L, Absolute Lymphs (auto) 1.54, Nucleated RBC % 0, Sodium 141, Potassium 3.3 L, Chloride 110 H, Carbon Dioxide 27.0, Anion Gap 4 L, BUN 10, Creatinine 0.70, Estim Creat Clear Calc 83.27, Est GFR (MDRD) Af Amer 110, Est GFR (MDRD) Non-Af 91, BUN/Creatinine Ratio 14.4, Glucose 104, Calcium 8.9 D/C Instructions Discharge Diet: Soft diet (For the next 3 to 4 days) Weight Bearing Status: Weight bearing as tolerated Call your doctor if you observe: Fever of 101 or Higher, Coldness, Increased Pain, Numbness or Tingling, Change in Color, Inability to urinate, Inability to have a bowel movement, Using more than 1 pad per hour, Shortness of breath, Dizziness, Fainting spells, Swelling in the ankles, Chest pain, Prolonged h iccupping, Increased palpitations (irregular heartbeat) and Calf discomfort When: IN 2 WEEKS Meaningful Use Info Meaningful Use Diagnoses (Choose all that apply): None applicable Discharge Plan Admission Admit Date/Time: 09/24/23 03:29 Primary Reason for Your Visit: Acute diverticulitis: Lower GI bleed. Attending Provider: Sherif Benson Primary Care Provider: Hernandez Mosley [employer] Consult[employer] Providers: Jorge L May; Jessica Quintero Discharge Orders/Prescriptions Prescriptions: New polyethylene glycol 3350 17 gram Powder In Packet 17 g PO DAILY PRN (Reason: CONSTIPATION) Qty: 0 0RF dicyclomine 10 mg Capsule 10 mg PO TIDAC PRN (Reason: ABDOMINAL CRAMPS) 30 Days Qty: 30 0RF acidophilus-pectin, citrus 25 million cell -100 mg Tablet 2 tab PO BID Qty: 0 0RF Rx Instructions: [id number]. Probiotic. At least for 2 week. ciprofloxacin HCl 500 mg tablet 500 mg PO BID 6 Days Qty: 12 0RF metronidazole 500 mg tablet 500 mg PO Q8H 5 Days Qty: 15 0RF Continued venlafaxine 37.5 MG tablet 75 mg PO QHS Patient Comments: mood amlodipine 5 MG tablet 2.5 mg PO QHS ropinirole 0.25 mg tablet 0.5 mg PO QHS Patient Comments: TAKE 2 TABLETS BY MOUTH ONCE DAILY AT BEDTIME FOR 90 DAYS pantoprazole 40 MG tablet,delayed release (DR/EC) 40 mg PO DAILY Patient Comments: acid reflux ramipril 10 MG capsule 10 mg PO BID acetaminophen 500 mg tablet 1,000 mg PO Q6H PRN Qty: 100 0RF tramadol 50 mg tablet 50 - 100 mg PO Q8H PRN (Reason: pain) Qty: 10 0RF Held furosemide 20 mg tablet 20 mg PO DAILY Hold Instructions: Hold for 2 days Referrals / Follow Up: Rian Fierro MD [Med Staff - Active Staff] - 10/18/23 2:30 pm Stanley Godwin DO [Med Staff - Active Staff] - Within 3 Months Hernandez Mosley Chi, MD [Primary Care Provider] - Disposition Disposition (needs filled in before D/C Order can be placed): Home, Self Care Charges/Coding Visit Charges Inpatient E&M: 55171 Disch Hosp >30min
[2023-09-26 09:00] VITALS: BP 152/88; PULSE 84; RESP 18; TEMP 36.6; O2SAT 98
[2023-09-26] MEDS: Senna/Docusate Sodium 1 Tablet 2 TABLET PO (09:04)
[2023-09-26] MEDS: Potassium Chloride Oral Tablet 20 MEQ 40 MEQ PO ×2 (09:04→11:14)
[2023-09-26] MEDS: Polyethylene Glycol 3350 17 GM PACKET PO (09:05)
[2023-09-26] MEDS: Ceftriaxone 1 GM/50 ML BAG IV (09:05)
[2023-09-26] MEDS: Pantoprazole Sodium 40 MG in 0.9% Normal Saline (100mL MB+) 100 ML 330 MG IV (10:16)
[2023-09-26 11:09] LABS: Anti-Centromere B Ab <0.2 AI (0.0-0.9); Anti-Chromatin 0.2 AI (0.0-0.9); Anti-Jo <0.2 AI (0.0-0.9); Anti-Scleroderma-70 AB <0.2 AI (0.0-0.9); Anti-dsDNA Ab 1 IU/mL (0-9); RNP Ab <0.2 AI (0.0-0.9); SJOGREN'S Anti-SS-A test < 0.2 AI (0.0-0.9); SJOGREN'S Anti-SS-B test < 0.2 AI (0.0-0.9); Smith Ab <0.2 AI (0.0-0.9)
[2023-09-28 09:09] LABS: Albumin 3.4 g/dL (2.9-4.4); Alpha-1-Globulins 0.2 g/dL (0.0-0.4); Alpha-2-Globulins 0.8 g/dL (0.4-1.0); Cytoplasmic Ab (C-ANCA) <1:20 titer (Neg:<1:20); Deamidated Gliadin IgA 3 units (0-19); Deamidated Gliadin IgG 2 units (0-19); Endomysial Antibody IgA Negative (Negative); Gamma Globulin 0.9 g/dL (0.4-1.8); IgG, Quant 882 mg/dL (586-1602); Immunoglobulin A 101 mg/dL (87-352); Immunoglobulin G, Subclass 1 572 mg/dL (248-810); Immunoglobulin G, Subclass 2 184 mg/dL (130-555); Immunoglobulin G, Subclass 3 36 mg/dL (15-102); Immunoglobulin G, Subclass 4 8 mg/dL (2-96); Immunoglobulin M 51 mg/dL (26-217); PROEL- TOTAL PROTEIN 6.2 g/dL (6.0-8.5); Perinuclear Ab (P-ANCA) <1:20 titer (Neg:<1:20); t-Transglutaminase IgA <2 U/mL (0-3)
[2023-09-28 15:08] LABS: ACCA 10 units (0-90); AMCA 15 units (0-100); Gastrin, Serum 20 pg/mL (0-115); gASCA 54 units (0-50)
[2023-09-30 22:06] LABS: Beef <0.10 kU/L (Class 0); Chocolate <0.10 kU/L (Class 0); Codfish <0.10 kU/L (Class 0); Corn <0.10 kU/L (Class 0); Egg, Whole <0.10 kU/L (Class 0); Milk (Cow) <0.10 kU/L (Class 0); Mussels <0.10 kU/L (Class 0); Peanut <0.10 kU/L (Class 0); Pork <0.10 kU/L (Class 0); Salmon <0.10 kU/L (Class 0); Shrimp <0.10 kU/L (Class 0); Soybean <0.10 kU/L (Class 0); Tuna <0.10 kU/L (Class 0); Wheat <0.10 kU/L (Class 0)
[2023-10-18 14:42] LABS: ALCA 10 units (0-60)
== END 2023-09-26 11:55 | disposition home or self-care (01) | DRG 392 ==
LOC: ED 03:12 → PCU 05:21
PROVIDERS: Internal Medicine; Internal Medicine Gastroenterology; Admitting Provider Internal Medicine; Emergency Provider Emergency Medicine; PCP Family Medicine Geriatric Medicine; Visit Provider Internal Medicine
PROC: 0DJD8ZZ Inspection of Lower Intestinal Tract, Via Natural or Artificial Opening Endoscopic (ICD-10-PCS; CPT 45378; principal; 2023-09-25 12:10)
DX: K57.32 Diverticulitis of large intestine without perforation or abscess without bleeding (principal); K55.9 Vascular disorder of intestine, unspecified; K31.5 Obstruction of duodenum; L40.50 Arthropathic psoriasis, unspecified; I10 Essential (primary) hypertension; F32.A Depression, unspecified; G25.81 Restless legs syndrome; E87.6 Hypokalemia; K21.9 Gastro-esophageal reflux disease without esophagitis; M17.12 Unilateral primary osteoarthritis, left knee; K44.9 Diaphragmatic hernia without obstruction or gangrene; Z87.891 Personal history of nicotine dependence
CPT/HCPCS: 36415; 74177; 80048; 80053; 82784; 82787; 82941; 83516; 83605; 83615; 83735; 83970; 84100; 84165; 84443; 85025; 85652; 86003; 86005; 86036; 86140; 86225; 86235; 86255; 86256; 86316; 86334; 86671; 88305; 90471; 93005; 94668; 99285; J7030; J7040; Q9967; A4216; J2405

== ENCOUNTER → 2023-10-24 | Outpatient (CLI) | payer MEDICARE, SELFPAY ==
--- NOTE | 2023-10-24 16:03 | RAD_ITS ---
HISTORY: video capsule. TECHNIQUE: XR Abdomen 1 View. COMPARISON: CT 09/24/2023. FINDINGS: BOWEL GAS PATTERN: No dilated bowel loops identified. Moderate stool in the colon. 2.2 cm capsule in the right lower quadrant. FREE AIR: Not assessed on supine view. CALCIFICATIONS: No abnormal calcifications observed. BONES: L4-5 spinal fusion hardware. SOFT TISSUES: Mild atelectasis or scarring in the left lung base RAD/Abdomen Single View IMPRESSION: Capsule in the right lower quadrant. Moderate stool in the colon. Electronically Signed: Laura Butler MD at 8:58 EDT ,
== END | disposition home or self-care (01) ==
LOC: RAD 15:54
PROVIDERS: PCP Family Medicine Geriatric Medicine; Referring Provider Internal Medicine Gastroenterology; Visit Provider Internal Medicine Gastroenterology
DX: K50.90 Crohn's disease, unspecified, without complications (principal)
CPT/HCPCS: 74018

== ENCOUNTER → 2023-10-27 | Outpatient (CLI) | payer MEDICARE, SELFPAY ==
--- NOTE | 2023-10-27 10:15 | RAD_ITS ---
INDICATION: Agile capsule EXAMINATION/TECHNIQUE: X-RAY - XR Abdomen 1 View COMPARISON: October 24, 2023 FINDINGS: BOWEL GAS PATTERN: Non-obstructive. No bowel or stomach distention. The capsule is no longer visualized. FREE AIR: Not assessed on a single supine view. ORGANOMEGALY: Not seen. CALCIFICATIONS: No abnormal calcifications observed. LOWER CHEST: No acute pathology. BONES AND SOFT TISSUES: There are postsurgical changes within the lower lumbar spine. RAD/Abdomen Single View IMPRESSION: Non-obstructive bowel gas pattern. Interval passage of capsule. Electronically Signed: Millie Morrow MD at 16:24 EDT ,
== END | disposition home or self-care (01) ==
PROVIDERS: PCP Family Medicine Geriatric Medicine; Referring Provider Internal Medicine Gastroenterology; Visit Provider Internal Medicine Gastroenterology
DX: K31.5 Obstruction of duodenum (principal)
CPT/HCPCS: 74018

== ENCOUNTER 2023-11-14 11:38 | Day surgery (SDC) | payer MEDICARE, SELFPAY ==
--- NOTE | 2023-11-14 | COLBX_PTH ---
PATIENT: VIJI TESFAYE LOC: EN U#:[id number] AGE/SX: 63/F ROOM: RE11/14/[address]: Dr. Stanley Godwin DO : 1960 BED: DIS: 11/14/2023 SPEC #: [id number] RECD: 11/15/23 10:19 STATUS: RUSTY TOMMY #: [id number] RADHA: 11/14/23 00:[address]: Stanley Godwin DEPT: SURGICAL PATHOLOGY RECD BY: Krish Saravia ENTERED: 11/15/23 10:20 SP TYPE: COLON BX OTHR DR: Dr. Hernandez Mosley MD Tissues: Duodenum, NOS Procedures: Surgery Specimen Level IV HEADER OPERATION: EGD with biopsy and dilation PRE-OP DIAGNOSIS: Crohn's disease TISSUE SUBMITTED: Duodenal biopsies MICROSCOPIC DIAGNOSIS Duodenum, biopsy: Fragments of duodenal mucosa, no pathologic diagnosis. SJ/mr 11/16/2023 MICROSCOPIC DESCRIPTION Slides are reviewed. GROSS DESCRIPTION Received in fixative is one container labeled with the patient's name and designated Duodenal biopsy. The specimen consists of two irregular fragments of light grossman soft tissue that in aggregate measure 0.6 x 0.3 x 0.1 cm. The specimen is totally submitted in one cassette. PELON/ 11/15/2023 TC:4 CPT:75330
--- NOTE | 2023-11-14 11:54 | HP.PCM_ITS ---
History and Physical Date of Admission: 11/14/23 VIJI TESFAYE, is a 63 F who presents to the office today for follow up. [facility] hospitalization 03.20.16-03.23.16 for abdominal pain. EGD 03.20.16?scope could not be advanced through duodenal bulb due to concentric narrowing less likely mass; no obvious ulcerations; duodenitis with duodenal ulcers; gastritis; healing prepyloric ulcer. H.Pylori neg Prior workup: ?CT abd/pel 09.21.23?colonic diverticulosis with diverticulitis *[facility] hospitalization 09.24.23-09.26.23 for management of abdominal pain with recent diverticulitis diagnosis with failed outpatient ATB therapy. Chronic conditions HTN, tobacco use, psoriatic arthritis, pseudogout, partial left knee replacement.? Treated with IV Rocephin and flagyl. ?CT abd/pel 09.24.23?diverticulosis with sequela of previous diverticulitis of sigmoid colon ?EGD/colonoscopy 09.25.23?EGD severe duodenal stenosis, balloon dilator 12mm, post dilation visualization noted moderate mucosal disruption. ? Colonoscopy diverticulosis; splenic flexure inflammation with friability and granularity OV 4.08.16 Pt states she has been feeling well since hosp. visit. Has not had any abdominal pain. Continues Mesalamine. BM have been better. Has not had any diarrhea. Is going to start taking daily fiber supplement. Does have lower abdominal cramping that is relieved by BM. ? ? ROS Const Constitutional: Positive for fatigue ENT ENT: No difficulty swallowing Cardio Cardiology: Positive for leg pain with exertion Gastro GI: Positive for bloating and excessive flatus; No abdominal pain, belching, change in bowel habits, change in stool character, coffee ground emesis, constipation, cramping, diarrhea, heartburn, difficulty swallowing, feeling full early, incontinent of stools, Vomiting blood/hematemesis, Blood in stool, loose stools, Black,tarry stools, nausea/dyspepsia, pain with swallowing, vomiting or other Musc Musculoskeletal: Positive for joint pain, back pain, joint swelling, stiffness, Arthritis, restless legs, leg pain at night and leg pain with exertion Skin Skin: No yellowing of the eye or itchy eyes Neuro Neurology: Positive for restless legs Psych Psychiatric: Positive for anxiety and No depression Endo Endocrine: Positive for fatigue Aller/Imm Allergy/Immunologic: No itchy eyes Renato/Lymp Hematologic/Lymphatic: No easy bleeding or easy bruising Exam Const General: cooperative and comfortable Nutritional Appearance: average body habitus and well nourished HENMT Head: normal to inspection Ears: hearing grossly normal bilaterally Nose: external nose normal Face and sinus: normal facial exam Mouth: oral mucosae normal Throat: posterior oropharynx normal Eyes General: appearance normal, both eyes and all related structures Neck Neck: normal visual inspection Chest Chest palpation & inspection: normal inspection of the chest and normal palpation of entire chest wall Resp Effort & Inspection: normal respiratory effort Auscultation: Bilateral: Clear to Auscultation Cardio Palpation: normal PMI Rate: regular rate Rhythm: regular rhythm GI Inspection: normal to inspection Auscultation: normal bowel sounds Percussion: normal to percussion Palpation: no hepatosplenomegaly Skin General: no rashes or lesions noted Neuro General: patient alert Extrem General: normal to inspection Psych Affect: normal affect Quality Reporting Tobacco Screening ([facility] 138) Smoking Status: Former smoker Assessment and Plan Assessment and Plan (1) Crohn's disease: Status: Acute Plan: 63-year-old female admitted for diffuse abdominal pain predominantly left lower quadrant, hematochezia. Recently diagnosed with diverticulitis, fourth episode little over a year and started on oral Augmentin. Acute Diverticulitis that Failed Outpatient Antibiotic Treatment - Admit to general medical floor. Continue broad-spectrum antibiotics with IV Rocephin and IV Flagyl to cover Gram-negatives and anaerobes. Give Tylenol prn for ggjh-ei-wcowvhme (level 1-5/10) pain or fever. Give Morphine IV prn for severe (level 6-10/10) pain. Patient had colonoscopy a colonoscopy that showed diverticulosis with inflammation around the diverticuli possibly secondary to sigmoid colitis associated with diverticulosis. I have placed her on mesalamine based therapy for that diagnosis. She also had some inflammation in the terminal ileum and throughout the colon that was a nonspecific colitis. I chirag biochemical markers for inflammatory bowel disease and she has a strongly positive ASCA antibody. I told her in the setting of psoriatic arthritis and pseudogout it would not be a big stretch for her to have inflammatory bowel disease. Her CRP is elevated. She also had an upper endoscopy which had shown stricture in the duodenum and pyloric stenosis. She will undergo an EGD with dilation and Botox injection into the pylorus and duodenal stricture. She may also need Kenalog to her duodenal stricture provide I believe this possibly secondary to Crohn's disease. CT scan of the abdomen pelvis: Impressions : - Diverticulosis in the recto-sigmoid colon, in the sigmoid colon, in the descending colon and at the splenic flexure. - Localized severe inflammation was found in the sigmoid colon, in the descending colon and at the splenic flexure secondary to ischemic colitis. - No specimens collected. Recommendations : -She is going to see a expediter regarding her psoriatic arthritis. -I will start her on methotrexate 12.5 mg p.o. daily with folic acid 1 mg a day and mesalamine 2.4 g a day for possible colonic Crohn's disease -She will undergo a capsule endoscopy to see if there is any signs of inflammatory bowel disease in the small bowel. -Pending the capsule endoscopy she may need a CT enterography or MR enterography. Orders: Orders Abdomen Single View Today K50.90 - Crohn's disease, unspecified, without complications I have examined the patient and the H&P has been reviewed. There are no clinical changes since date of exam.
[2023-11-14 12:05] VITALS: BP 174/103; PULSE 72; RESP 18; TEMP 36.2; O2SAT 100; BMI 28.3
[2023-11-14] MEDS: Lactated Ringers 1,000 ML 15 ML IV (12:16)
[2023-11-14 13:40] VITALS: BP 125/81; BP 174/103; PULSE 77; RESP 16; TEMP 36.3; O2SAT 92
--- NOTE | 2023-11-14 13:41 | OP.EGD_ITS ---
Patient Name: Judy Reagan Procedure Date: 11/14/2023 1:18 PM Date of : 1960 Age: 63 Procedure: Upper GI endoscopy Indications: Epigastric abdominal pain, Stenosis of the duodenum Providers: Stanley Godwin DO Medicines: Monitored Anesthesia Care Patient Profile: This is a 63 year old female. Refer to note in patient chart for documentation of history and physical. Patient has symptoms of acute epigastric abdominal pain. Complications: No immediate complications. Procedure: Pre-Anesthesia Assessment: - Prior to the procedure, a History and Physical was performed, and patient medications and allergies were reviewed. The patient is competent. The risks and benefits of the procedure and the sedation options and risks were discussed with the patient. All questions were answered and informed consent was obtained. Patient identification and proposed procedure were verified by the physician in the pre-procedure area. Mental Status Examination: normal. Airway Examination: normal oropharyngeal airway and neck mobility. Prophylactic Antibiotics: The patient does not require prophylactic antibiotics. Prior Anticoagulants: The patient has taken no anticoagulant or antiplatelet agents. After reviewing the risks and benefits, the patient was deemed in satisfactory condition to undergo the procedure. The anesthesia plan was to use monitored anesthesia care (MAC). Immediately prior to administration of medications, the patient was re-assessed for adequacy to receive sedatives. The heart rate, respiratory rate, oxygen saturations, blood pressure, adequacy of pulmonary ventilation, and response to care were monitored throughout the procedure. The physical status of the patient was re-assessed after the procedure. After obtaining informed consent, the endoscope was passed under direct vision. Throughout the procedure, the patient's blood pressure, pulse, and oxygen saturations were monitored continuously. The Endoscope was introduced through the mouth, and advanced to the second part of duodenum. The upper GI endoscopy was accomplished without difficulty. The patient tolerated the procedure well. Scope In: 1:28:52 PM Scope Out: 1:37:42 PM Total Procedure Duration Time 0 hours 8 minutes 50 seconds Findings: The examined esophagus was normal. The entire examined stomach was normal. An acquired benign-appearing, intrinsic moderate stenosis was found in the first portion of the duodenum and was traversed after dilation. A TTS dilator was passed through the scope. Dilation with a 15 mm pyloric balloon dilator was performed. The dilation site was examined and showed moderate improvement in luminal narrowing. Biopsies were taken with a cold forceps for histology. Verification of patient identification for the specimen was done. Estimated blood loss was minimal. Impression: - Normal esophagus. - Normal stomach. - Acquired duodenal stenosis. Dilated. Biopsied. Recommendation: - Discharge patient to home. - Resume previous diet. - Continue present medications. - Await pathology results. Procedure Code(s): --- Professional --- 42066, Esophagogastroduodenoscopy, flexible, transoral; with dilation of gastric/duodenal stricture(s) (eg, balloon, bougie) 45727, 59,51, Esophagogastroduodenoscopy, flexible, transoral; with biopsy, single or multiple CPT copyright 2021 [employer]. All rights reserved. The codes documented in this report are preliminary and upon clinical fellow review may be revised to meet current compliance requirements. Stanley Godwin DO 11/14/2023 1:41:48 PM This report has been signed electronically. Number of Addenda: 0 Note Initiated On: 11/14/2023 1:18 PM
--- NOTE | 2023-11-14 13:42 | OP.CCLET_ITS ---
11/14/2023 Hernandez Mosley MD [address] [place] [address] Re : Upper GI endoscopy procedure for Judy Reagan Dear Dr. Mosley This procedure was performed on Tuesday, November 14, 2023. My impressions and recommendations are as follows: Impressions : - Normal esophagus. - Normal stomach. - Acquired duodenal stenosis. Dilated. Biopsied. Recommendations : - Discharge patient to home. - Resume previous diet. - Continue present medications. - Await pathology results. My findings are described in the full procedure note, which is enclosed. If I can be of further assistance, please feel free to contact me at . Sincerely, Stanley Godwin, 11/14/2023 1:41:48 PM This report has been signed electronically.
[2023-11-14 13:45] VITALS: BP 122/79; BP 174/103; PULSE 73; RESP 16; O2SAT 92
[2023-11-14 13:50] VITALS: BP 127/94; BP 174/103; PULSE 81; RESP 16; O2SAT 95
[2023-11-14 13:55] VITALS: BP 120/87; BP 174/103; PULSE 80; RESP 16; TEMP 36.3; O2SAT 95
[2023-11-14 14:08] VITALS: BP 174/103
== END 2023-11-14 14:12 | disposition home or self-care (01) ==
LOC: EN 11:40 → AC 11:42
PROVIDERS: PCP Family Medicine Geriatric Medicine; Referring Provider Family Medicine Geriatric Medicine; Visit Provider Internal Medicine Gastroenterology
PROC: 0DJ08ZZ Inspection of Upper Intestinal Tract, Via Natural or Artificial Opening Endoscopic (ICD-10-PCS; CPT 43235; principal; 2023-11-14 12:55)
DX: K57.30 Diverticulosis of large intestine without perforation or abscess without bleeding (principal); L40.50 Arthropathic psoriasis, unspecified; K50.90 Crohn's disease, unspecified, without complications; K55.9 Vascular disorder of intestine, unspecified; R10.13 Epigastric pain; K31.5 Obstruction of duodenum; Z96.652 Presence of left artificial knee joint; I10 Essential (primary) hypertension; R53.83 Other fatigue; R14.0 Abdominal distension (gaseous); M50.30 Other cervical disc degeneration, unspecified cervical region; Z98.1 Arthrodesis status; F41.9 Anxiety disorder, unspecified; Z87.19 Personal history of other diseases of the digestive system; G25.81 Restless legs syndrome; Z87.2 Personal history of diseases of the skin and subcutaneous tissue; Z90.49 Acquired absence of other specified parts of digestive tract; Z90.710 Acquired absence of both cervix and uterus; Z87.891 Personal history of nicotine dependence; Z87.11 Personal history of peptic ulcer disease; G89.29 Other chronic pain; M76.32 Iliotibial band syndrome, left leg
CPT/HCPCS: 43239; 43245; 88305; J7120; J0585; J2405

== ENCOUNTER → 2023-12-11 | Outpatient (CLI) | payer MEDICARE, SELFPAY ==
--- NOTE | 2023-12-11 11:00 | MRI_ITS ---
STUDY: MRI LEFT KNEE REASON FOR EXAM: Female, 63 years old. Pain. Iliotibial band syndrome. TECHNIQUE: Standardized fat and water weighted pulse sequences were obtained in all 3 orthogonal planes. COMPARISON: None. FINDINGS: Normal medial meniscus. Normal hyaline cartilage of the medial femorotibial compartment. There is mild osteoarthritic spur formation of the medial knee compartment. There is mild tibial collateral ligament bursitis (coronal T2 series 7 image 16). Intact medial collateral ligamentous complex (MCL). Normal distal semimembranosus, gracilis and semitendinosus tendons. There is a possible horizontal tear of the anterior horn of the lateral meniscus (coronal PD series 6 image 18). Normal hyaline cartilage of the lateral femorotibial compartment. There is mild osteoarthritic spur formation of the lateral knee compartment. Normal proximal tibiofibular articulation. Normal lateral collateral (fibular) ligament. Normal popliteus tendon. Normal biceps femoris tendon. Intact iliotibial band. Normal anterior cruciate ligament (ACL). Normal posterior cruciate ligament (PCL). There is a unicompartmental patellofemoral arthroplasty, with surrounding metallic susceptibility artifact. Intact quadriceps tendon. Intact patellar tendon. Normal Hoffa''s fat pad. There is a small to moderate joint effusion. There is a popliteal cyst, spanning a craniocaudal distance of approximately 5.2 cm. The soft tissues are unremarkable. The otherwise visualized osseous structures are unremarkable. MRI/Lower Ext Joint Only (Routine) IMPRESSION: Possible horizontal tear of the anterior horn of the lateral meniscus. Mild tibial collateral ligament bursitis. Mild degenerative arthrosis of the medial and lateral femorotibial compartments. Unicompartmental patellofemoral arthroplasty, with a small to moderate joint effusion. 5.2 cm popliteal cyst. Intact iliotibial band. Electronically Signed: Italo Quintero MD at 12:18 EDT ,
== END | disposition home or self-care (01) ==
PROVIDERS: PCP Family Medicine Geriatric Medicine; Referring Provider Orthopaedic Surgery; Visit Provider Orthopaedic Surgery
DX: M76.32 Iliotibial band syndrome, left leg (principal)
CPT/HCPCS: 73721

== ENCOUNTER → 2024-02-15 | Outpatient (CLI) | payer MEDICARE, SELFPAY ==
--- NOTE | 2024-02-15 12:27 | RAD_ITS ---
STUDY: X-RAY - PELVIS AND LEFT HIP REASON FOR EXAM: Female, 64 years old. PAIN TECHNIQUE: 3 views of the pelvis and left hip. COMPARISON: Pelvis and left hip radiographs dated 04/21/2023. FINDINGS: BONES/JOINTS: Again seen are postoperative changes in the lower lumbar spine, degenerative changes in the lumbar spine, and degenerative changes of the bilateral sacroiliac joints. No displaced fracture. No destructive or sclerotic lesions. Note that overlapping bowel shadows may however obscure fine detail. No widening of the pubic symphysis. SOFT TISSUES: There is unchanged amorphous calcification within the soft tissues adjacent to the right greater trochanter, likely calcific tendinopathy. No soft tissue swelling or gas. RAD/HIP, UNI W/ Pelvis 2-3 Views IMPRESSION: No acute findings. Electronically Signed: Italo Quintero MD at 14:22 EDT ,
[2024-02-17 20:07] LABS: QNTFERON TB Mitogen Value > 10.00 IU/mL (.); QNTFERON TB Nil Value 0 IU/mL (.); QNTFERON TB1+ Ag Value 0.01 IU/mL (.); QNTFERON TB2+ Ag Value 0 IU/mL (.); QNTIFERON TB Positive Criteria Negative (Negative)
== END | disposition home or self-care (01) ==
PROVIDERS: PCP Family Medicine Geriatric Medicine; Referring Provider Internal Medicine Gastroenterology; Visit Provider Internal Medicine Gastroenterology
DX: M25.551 Pain in right hip (principal)
CPT/HCPCS: 36415; 73502; 86480

== ENCOUNTER → 2024-03-19 | Outpatient (CLI) | payer MEDICARE, SELFPAY ==
[2024-03-19 11:07] LABS: Absolute Lymphocyte Count 1.84 X10^3/uL (0.83-4.51); Absolute Neutrophil Count 9.3 X10^3/uL (2.0-7.7); Basophil% 0.8 % (0-1); Eosinophil# 0.19 X10^3/uL; Eosinophils% 1.5 % (0-5); Hematocrit 42.8 % (37-47); Hemoglobin 13.9 g/dL (12.0-15.0); Lymphocyte # 1.84 X10^3/ul (0.83-4.51); Lymphocyte % 14.5 % (19-41); Mean Corp Hgb Conc 32.5 g/dL (32-36); Mean Corpuscular Hgb 29.9 pg (27.0-32.0); Mean Platelet Vol. 9.4 fl (6.2-12.0); Monocyte# 1.25 X10^3/uL; Monocyte% 9.8 % (0-10); NRBC Flagged by Analyzer 0 % (0-5); Neutrophil # 9.26 X10^3/uL (2.7-7.7); Neutrophil % 72.8 % (47-70); Platelet Count 444 K/mm3 (150-450); RBC Distribution Width CV 13.3 % (11.6-14.6); RBC Distribution Width SD 44.8 fl (35.1-43.9); Red Blood Count 4.65 M/mm3 (4.2-5.4); White Blood Count 12.7 K/mm3 (4.4-11.0)
[2024-03-19 12:02] LABS: Vitamin D,25 Hydroxy 28.7 ng/mL
[2024-03-19 12:32] LABS: AST(SGOT) 20 U/L (15-37); Alanine Aminotransfer ALT/SGPT 32 U/L (13-56); Albumin, Serum 3.8 g/dL (3.2-5.0); Alkaline Phosphatase 94 U/L (45-117); Anion Gap 10 (5-15); BUN 18 mg/dL (7-18); Calcium,Total 9.4 mg/dL (8.5-10.1); Chloride 99 mmol/L (98-107); Creatinine, Serum 0.95 mg/dL (0.55-1.02); EST Glomerular Filtration Rate 64 mL/min (>60); Est Glom Filt Rate - Afr Amer 77 mL/min (>60); Globulin 3.8 g/dL (2.2-4.2); Glucose 103 mg/dL (74-106); Potassium 4.4 mmol/L (3.5-5.1); Protein, Total 7.6 g/dL (6.4-8.2); Sodium Level 137 mmol/L (136-145)
== END | disposition home or self-care (01) ==
LOC: POLAB3 10:58
PROVIDERS: PCP Family Medicine Geriatric Medicine; Visit Provider Family Medicine Geriatric Medicine
DX: I10 Essential (primary) hypertension (principal); E55.9 Vitamin D deficiency, unspecified
CPT/HCPCS: 36415; 80053; 82306; 84443; 85025

== ENCOUNTER → 2024-04-19 | Outpatient (CLI) | payer MEDICARE, SELFPAY ==
--- NOTE | 2024-04-19 15:48 | RAD_ITS ---
EXAM: XR RIGHT HIP WITH PELVIS WHEN PERFORMED, 4 OR MORE VIEWS CLINICAL INDICATION: RIGHT HIP PAIN TECHNIQUE: Four or more views of the right hip with pelvis when performed. COMPARISON: No relevant prior studies available. FINDINGS: BONES/JOINTS: There is a soft tissue calcification superior to the greater trochanter. No displaced fracture. No destructive or sclerotic lesions. Note that overlapping bowel shadows may however obscure fine detail. Sacroiliac joint is unremarkable. No widening of the pubic symphysis. The articular structures are unremarkable. SOFT TISSUES: Unremarkable. No soft tissue swelling or gas. RAD/HIP, UNI W/ Pelvis 2-3 Views IMPRESSION: Soft tissue calcification superior to the greater trochanter. There is no osseous abnormality. Electronically Signed: Carlos Vital MD at 0:10 EDT ,
== END | disposition home or self-care (01) ==
LOC: RAD 15:32
PROVIDERS: PCP Family Medicine Geriatric Medicine; Referring Provider Anesthesiology Pain Medicine; Visit Provider Anesthesiology Pain Medicine
DX: M25.551 Pain in right hip (principal)
CPT/HCPCS: 73502

== ENCOUNTER → 2024-05-03 | Outpatient (CLI) | payer MEDICARE, SELFPAY ==
[2024-05-03 12:19] LABS: Absolute Lymphocyte Count 2.13 X10^3/uL (0.83-4.51); Absolute Neutrophil Count 6.2 X10^3/uL (2.0-7.7); Basophil# 0.07 X10^3/uL; Basophil% 0.7 % (0-1); Eosinophil# 0.06 X10^3/uL; Eosinophils% 0.6 % (0-5); Hematocrit 43.2 % (37-47); Hemoglobin 13.9 g/dL (12.0-15.0); Lymphocyte # 2.13 X10^3/ul (0.83-4.51); Lymphocyte % 22.4 % (19-41); Mean Corp Hgb Conc 32.2 g/dL (32-36); Mean Corpuscular Hgb 29.9 pg (27.0-32.0); Mean Corpuscular Volume 92.9 fL (81-99); Mean Platelet Vol. 9.6 fl (6.2-12.0); Monocyte# 1.06 X10^3/uL; Monocyte% 11.1 % (0-10); NRBC Flagged by Analyzer 0 % (0-5); Neutrophil # 6.15 X10^3/uL (2.7-7.7); Neutrophil % 64.8 % (47-70); Platelet Count 395 K/mm3 (150-450); RBC Distribution Width CV 13.2 % (11.6-14.6); RBC Distribution Width SD 44.6 fl (35.1-43.9); Red Blood Count 4.65 M/mm3 (4.2-5.4); White Blood Count 9.5 K/mm3 (4.4-11.0)
[2024-05-03 12:25] LABS: Erythrocyte Sedimentation Rate 6 mm/hr (0-30)
[2024-05-03 13:08] LABS: ALB/GLOB Ratio 1.2 RATIO (0.9-2.4); AST(SGOT) 18 U/L (15-37); Alanine Aminotransfer ALT/SGPT 36 U/L (13-56); Albumin, Serum 4.2 g/dL (3.2-5.0); Alkaline Phosphatase 78 U/L (45-117); Anion Gap 9 (5-15); BUN 15 mg/dL (7-18); BUN/Creat Ratio 21.5 RATIO (10-20); CRP 3.04 mg/L (0.0-3.0); Calcium,Total 9.3 mg/dL (8.5-10.1); Chloride 102 mmol/L (98-107); EST Glomerular Filtration Rate 90 mL/min (>60); Est Glom Filt Rate - Afr Amer 109 mL/min (>60); Globulin 3.4 g/dL (2.2-4.2); Glucose 99 mg/dL (74-106); Potassium 3.7 mmol/L (3.5-5.1); Protein, Total 7.6 g/dL (6.4-8.2); Sodium Level 135 mmol/L (136-145)
== END | disposition home or self-care (01) ==
PROVIDERS: PCP Family Medicine Geriatric Medicine; Referring Provider Internal Medicine Gastroenterology; Visit Provider Internal Medicine Gastroenterology
DX: D64.9 Anemia, unspecified (principal); K50.919 Crohn's disease, unspecified, with unspecified complications
CPT/HCPCS: 36415; 80053; 85025; 85652; 86140

== ENCOUNTER → 2024-05-22 | Outpatient (CLI) | payer MEDICARE, SELFPAY ==
--- NOTE | 2024-05-22 10:29 | BI_ITS ---
MAMMOGRAPHY - BILATERAL SCREENING REASON FOR EXAM: Female, 64 years old. Routine annual screening examination. PERTINENT HISTORY: Mother with breast cancer. TECHNIQUE: Digital bilateral breast niharika (3D mammographic acquisition) in the CC and MLO projections. 2-D mediolateral oblique (MLO) and craniocaudad (CC) views of both breasts were obtained. CAD: Full Field Digital Mammography with Computer Added Detection was performed. COMPARISON: Comparison is made with prior study of September 07, 2022 and April 14, 2021. FINDINGS: Breast Composition: The breasts are heterogeneously dense, which may obscure small masses. Questionable 1.6 cm x 1.7 cm nodular density in the retroareolar region of the left breast. Correlation with ultrasound recommended. Stable small benign-appearing bilateral axillary lymph nodes. No other significant abnormalities are identified. There has been no significant change since the prior study. BI/SCRN MAMM (CAD)W/NIHARIKA BILAT IMPRESSION: Questionable 1.6 cm x 1.7 cm nodular density in the retroareolar region of the left breast. Correlation with ultrasound recommended. ASSESSMENT CATEGORY: BIRADS Category 0: Incomplete. Need additional imaging evaluation. A letter regarding these results will be sent to the patient by the facility within 30 days. Approximately 10% of breast cancers are not detected by mammography. A normal mammogram should not delay biopsy of a clinically suspicious abnormality. [id number] Electronically Signed: Getachew Wayne MD at 11:26 EDT ,
== END | disposition home or self-care (01) ==
PROVIDERS: PCP Family Medicine Geriatric Medicine; Referring Provider Family Medicine Geriatric Medicine; Visit Provider Family Medicine Geriatric Medicine
DX: Z12.31 Encounter for screening mammogram for malignant neoplasm of breast (principal); Z80.3 Family history of malignant neoplasm of breast
CPT/HCPCS: 77063; 77067

== ENCOUNTER → 2024-05-24 | Outpatient (CLI) | payer MEDICARE, SELFPAY ==
--- NOTE | 2024-05-24 09:28 | US_ITS ---
STUDY: ULTRASOUND BREAST - LEFT REASON FOR EXAM: Female, 64 years old. Abnormal screening mammogram. TECHNIQUE: Axial and longitudinal images of the LEFT breast were performed with a high resolution ultrasound transducer. # OF IMAGES: 56 COMPARISON: Comparison is made with prior mammogram dated May 22, 2024. FINDINGS: LEFT Breast: The retroareolar region of the left breast was examined with ultrasound. There is dense fibroglandular tissue. Additional mammographic views will be obtained. _ US/Breast Limited Unilateral IMPRESSION: Unremarkable sonogram. Additional mammographic views will be obtained. ASSESSMENT CATEGORY: BIRADS Category 0: Incomplete. Need additional imaging evaluation. A letter regarding these results will be sent to the patient by the facility within 30 days. Electronically Signed: Getachew Wayne MD at 12:58 EDT ,
--- NOTE | 2024-05-24 10:04 | BI_ITS ---
MAMMOGRAPHY - UNILATERAL DIAGNOSTIC: LEFT BREAST REASON FOR EXAM: Female, 64 years old. Abnormal screening mammogram. Negative targeted ultrasound evaluation. PERTINENT HISTORY: Mother with breast cancer. TECHNIQUE: 90 degree lateral view of the right breast was obtained. CAD: Full Field Digital Mammography with Computer Added Detection was performed. COMPARISON: Comparison is made with prior study dated May 22, 2024. FINDINGS: Breast Composition: The breasts are extremely dense, which lowers the sensitivity of mammography. There are no dominant masses or suspicious calcifications. No other significant abnormalities are identified. BI/DIAG MAMM W/CAD, UNILAT IMPRESSION: Negative unilateral diagnostic mammogram. Yearly followup mammogram recommended. (A) ASSESSMENT CATEGORY: BIRADS Category 1: Negative. A letter regarding these results will be sent to the patient by the facility within 30 days. Approximately 10% of breast cancers are not detected by mammography. A normal mammogram should not delay biopsy of a clinically suspicious abnormality. Electronically Signed: Getachew Wayne MD at 10:31 EDT ,
== END | disposition home or self-care (01) ==
LOC: OPUS 09:24
PROVIDERS: PCP Family Medicine Geriatric Medicine; Referring Provider Family Medicine Geriatric Medicine; Visit Provider Family Medicine Geriatric Medicine
DX: R92.8 Other abnormal and inconclusive findings on diagnostic imaging of breast (principal)
CPT/HCPCS: 76642; 77065

== ENCOUNTER → 2024-05-27 | Outpatient (CLI) | payer MEDICARE, SELFPAY ==
--- NOTE | 2024-05-27 11:00 | RAD_ITS ---
STUDY: X-RAY CHEST REASON FOR EXAM: Female, 64 years old. WHEEZING TECHNIQUE: PA and lateral views of the chest. COMPARISON: October 13, 2022 FINDINGS: No consolidation or infiltrates are present. COPD/emphysematous changes redemonstrated. There is no demonstrated pleural abnormality. Normal size heart. Normal mediastinum and sumit. Normal visualized pulmonary arteries. There is atherosclerotic calcification of the aortic arch with tortuosity. There are diffuse degenerative changes of the visualized thoracic spine. Normal visualized ribs, clavicles, and shoulders. There is no demonstrated abnormality of the visualized soft tissue structures of the upper abdomen. RAD/Chest PA and Lateral IMPRESSION: COPD/emphysema Electronically Signed: Rubio Clark MD at 11:59 EST ,
== END | disposition home or self-care (01) ==
PROVIDERS: PCP Family Medicine Geriatric Medicine; Referring Provider Family Medicine Geriatric Medicine; Visit Provider Family Medicine Geriatric Medicine
DX: R06.2 Wheezing (principal)
CPT/HCPCS: 71046

== ENCOUNTER → 2024-05-27 | Outpatient (CLI) | payer MEDICARE, SELFPAY | END | disposition home or self-care (01) | LOC: POLAB3 10:45 | PROVIDERS: PCP Family Medicine Geriatric Medicine; Referring Provider Family Medicine Geriatric Medicine; Visit Provider Family Medicine Geriatric Medicine | DX: R68.83 Chills (without fever) (principal) | CPT/HCPCS: 87631 ==

== ENCOUNTER → 2024-08-12 | Outpatient (CLI) | payer MEDICARE, SELFPAY ==
--- NOTE | 2024-08-12 15:31 | CT_ITS ---
STUDY: CT ABDOMEN AND PELVIS WITH CONTRAST REASON FOR EXAM: Female, 64 years old. diverticulitis RADIATION DOSAGE (If Supplied By Facility): CTDIvol = ( 14.98 ) mGy, DLP = ( 816.30 ) mGycm TECHNIQUE: Transaxial images were obtained from the dome of the diaphragm to the symphysis pubis without oral contrast. Oral and amp; IV Gastrografin and amp; 100mL Isovue-300 was administered. Sagittal and coronal images were reconstructed. Individualized dose optimization techniques were used for this CT. COMPARISON: None. FINDINGS: The visualized lung bases are unremarkable. The visualized portions of the heart are within normal limits. Normal liver. Normal gallbladder and extrahepatic biliary system. Normal spleen. Normal pancreas. Normal bilateral adrenal glands. No evidence for renal obstruction. There is a tiny cyst in each kidney which will not require additional imaging Normal visualized stomach. Normal small intestine. Diverticular changes of the colon with mild thickening of the guzman of the sigmoid colon and minor stranding of the fat suggesting early early changes of acute diverticulitis There is no evidence for acute appendicitis. Atherosclerotic changes of the aorta without evidence for aneurysm. Normal inferior vena cava. Normal retroperitoneum. Normal urinary bladder. Uterus not visualized consistent with hysterectomy Normal abdominal wall. Postop change status post anterior fusion at L4-5 CT/Abdomen/Pelvis WITH Contrast IMPRESSION: Findings which may be consistent with early changes of acute diverticulitis of the sigmoid colon. No peridiverticular abscess. Clinical correlation recommended Electronically Signed: Montana Dillard MD at 18:27 EST Reading Location ID and State: [facility] / [place] Tel , Service support ,
== END | disposition home or self-care (01) ==
LOC: CT 15:28
PROVIDERS: PCP Family Medicine Geriatric Medicine; Referring Provider Internal Medicine Gastroenterology; Visit Provider Internal Medicine Gastroenterology
DX: K57.92 Diverticulitis of intestine, part unspecified, without perforation or abscess without bleeding (principal)
CPT/HCPCS: 74177; Q9967

== ENCOUNTER 2024-10-07 10:46 | Day surgery (SDC) | payer MEDICARE, SELFPAY ==
[2024-10-07] VITALS (10 sets, daily range): BP systolic 133–183; BP diastolic 90–112; PULSE 75–98; RESP 16–18; TEMP 36.1–36.9; O2SAT 100; BMI 28.3
--- NOTE | 2024-10-07 11:41 | PRE.ANES_ITS ---
ASA Classification* ASA Classification ASA Classification: 2 Assessment & Plan Anesthesia* Anesthesia Assessment Anesthesia Assessment: Discussed sedation and/or anesthesia options, risks, benefits, and alternatives with patient/parents/legal guardian/POA. Questions invited. The patient/parents/legal guardian/POA seems to understand and agrees to proceed with anesthesia plan. Reviewed the physical assessment, medical history, allergy history and patient home medications list prior to surgery/procedure/anesthetic and documented any changes. Performed airway and anesthesia risk assessments. Anesthesia Type Anesthesia Type: MAC History Source History Obtained from:: Patient and Chart Anesthesia Focused Assessment* Temperature: 96.9 F Pulse Rate: 92 Blood Pressure: 174/106 Respiratory Rate: 16 Oxygen Delivery Method: Room Air Airway Assessment Mouth opens: >3 cm Mallampati Score: I Teeth Condition: Caps/Crowns (Patient has couple of caps. They are tight.) Neck Range of motion (ROM): Limited ROM (Slight decrease in extension) Focused Labs Anesthesia Preop lab: CBC WBC 9.5 K/mm3 (4.4-11.0) 05/03/24 11:39 05/03/24 RBC 4.65 M/mm3 (4.2-5.4) 05/03/24 11:39 05/03/24 Hgb 13.9 g/dL (12.0-15.0) 05/03/24 11:39 05/03/24 Hct 43.2 % (37-47) 05/03/24 11:39 05/03/24 Plt Count 395 K/mm3 (150-450) 05/03/24 11:39 05/03/24 CHEMISTRY Potassium 3.7 mmol/L (3.5-5.1) 05/03/24 11:39 05/03/24 Sodium 135 mmol/L (136-145) L 05/03/24 11:39 05/03/24 Magnesium 2.3 mg/dL (1.6-2.6) 09/24/23 05:20 09/24/23 Phosphorus 3.3 mg/dL (2.5-4.9) 09/24/23 05:20 09/24/23 BUN 15 mg/dL (7-18) 05/03/24 11:39 05/03/24 Creatinine 0.70 mg/dL (0.55-1.02) 05/03/24 11:39 05/03/24 Glucose 99 mg/dL (74-106) 05/03/24 11:39 05/03/24 POC Glucose 119 mg/dL (74-106) H 06/21/23 09:50 06/21/23 TSH 1.440 uIU/mL (0.358-3.740) 03/19/24 10:58 08/2 02/13 COAG PT 12.6 SECONDS (11.7-14.9) 06/19/23 12:39 Pre-Assessment Diagnosis/Proposed Procedure Planned Operative Procedure(s): caudal steroid inj Anesthesia History 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 When Was Last Pacemaker Check QUESTION #4 FULL TEXT: You/Your Family Experience fever (hyperthermia) with Anesthesia Last Oral Intake Last Oral intake: Last Oral Intake NPO since 20:00 10/07/24 11:21 Meds taken in AM with sips of water? Meds patient instructed to take am of surgery PONV PONV - commercial reporter: PONV - commercial reporter Female Yes 10/04/24 14:57 HX of Motion Sickness No 10/04/24 14:57 HX of N/V After Surgery No 10/04/24 14:57 Non-Smoker Yes 10/04/24 14:57 Duration of Surgery greater No 10/04/24 14:57 than 60 minutes Number of Risk Factors 2 10/04/24 14:57 PONV Score Moderate Risk 10/04/24 14:57 Height & Weight Height & Weight: Anesthesia: Height & Weight Height 5 ft 4 in 10/07/24 11:21 Weight: 75 kg 10/07/24 11:21 Body Mass Index (BMI) 28.3 10/07/24 11:21 Respiratory Assessment Respiratory Assessment - commercial reporter: Respiratory Tract Infection Hx - commercial reporter Hx Respiratory Tract Infection No 10/04/24 14:57 STOP Sleep Apnea STOP Sleep Apnea - commercial reporter: STOP Sleep Apnea - commercial reporter Hx Hypertension Yes: CONTROLLED WITH MED 10/04/24 14:57 Hx Sleep Apnea No 10/04/24 14:57 CPAP Yes 11/24/23 14:04 BIPAP Do you snore loudly (louder No 10/04/24 14:57 than talking or can be heard Do you often feel tired/ No 10/04/24 14:57 fatigued/ sleepy during daytime? Has anyone observed you stop No 10/04/24 14:57 breathing during sleep? STOP Results Negative 10/04/24 14:57 QUESTION #5 FULL TEXT : Do you snore loudly (louder than talking or can be heard through closed doors)? Tobacco Use History Tobacco Use History - commercial reporter: Tobacco Use History - commercial reporter Tobacco Use Smoking Status Former smoker 10/04/24 14:57 Hx Tobacco Use No 10/04/24 14:57 Years Smoking Packs Smoked per Day Smoking Cessation Date was Yes - quit smoking within 15 10/04/24 14:57 within the last 15 years years Hx Smoking Cessation Date 07/24/17 10/04/24 14:57 Hx Smoking Cessation No 10/04/24 14:57 Counseling Hematologic Medial History Hematologic Hx - commercial reporter: Hematologic Medical Hx - counseling specialist Hx of Blood Transfusion Yes 10/04/24 14:57 Hx of Transfusion in last 3 No 10/04/24 14:57 Months Date of Last Transfusion (if within last 3 months) Ever experience any problems No 10/04/24 14:57 with transfusion(s)? Specify any problems Hx of Preganancy in last 3 N/A 10/04/24 14:57 Months Nurse Filling Out Transfusion NBUCHER 10/04/24 14:57 & Questions: Date: 10/04/24 10/04/24 14:57 Time: 14:58 10/04/24 14:57 Patient unable to answer at this time (ie. confused, unrespo /Reproduction History /Reproductive History - commercial reporter: /Reproductive Hx- commercial reporter Hx Now No 10/04/24 14:57 Gestational Age (in weeks): EDC: Hx Hx Para Hx Section SAB No 11/24/23 14:04 PFSH Medical History History of Crohn's disease Chronic pain GERD (gastroesophageal reflux disease) History of steroid therapy Wears glasses Post-menopausal Anxiety Alcohol use Hx of psoriatic arthritis Restless legs Back pain History of diverticulitis Hx of peptic ulcer Former smoker History of pain when walking Hypertension Physical exam, pre-employment Osteoarthritis Home Medications ?Medication ?Instructions ?Recorded ?Last Taken ?Type venlafaxine 37.5 mg tablet 75 mg PO QHS depression 10/06/24 History pantoprazole 40 mg tablet,delayed 40 mg PO DAILY GERD 08/09/22 10/07/24 History release ramipril 10 mg capsule 10 mg PO BID HEART 08/09/22 10/06/24 History ropinirole 0.25 mg tablet 0.5 mg PO QHS RESTLESS LEGS 08/09/22 10/06/24 History furosemide 20 mg tablet 20 mg PO DAILY 01/12/2309/21 History acetaminophen 500 mg tablet 1,000 mg (2 x 500 mg) PO Q 6H PRN 06/21/23 11/13/23 Rx #100 tabs acidophilus 25 million 2 tab PO BID #0 tabs 4 10/06/24 Rx cell-pectin, citrus 100 mg tablet tramadol 50 mg tablet 50 - 100 mg (1 - 2 x 50 mg) PO Q8H 09/26/23 10/06/24 Rx PRN pain #10 tabs amlodipine 5 mg tablet (Norvasc) 5 mg PO QHS 11/09/23 10/07/24 History ustekinumab 90 mg/mL subcutaneous 90 mg subcut Q8W #1 mL 03/11/24 Unknown Rx syringe (Stelara) duloxetine 30 mg capsule,delayed 30 mg PO DAILY #30 ca ps 06/25/24 10/06/24 Rx release hyoscyamine sulfate 0.125 mg tablet 0.125 mg PO BID-QI D PRN dyspepsia 08/13/24 Unknown Rx #30 tabs dicyclomine 20 mg tablet 20 mg PO TID PRN abdominal p ain 10/04/24 Unknown History Allergy/AdvReac Type Severity Reaction Status Date / Time adhesive tape Allergy Severe blistering Verified 10/07/24 11:20 bee venom protein (honey bee) Allergy Swelling Verified 10/07/24 11:20 Family History Other Breast cancer CAD (coronary artery disease) Heart disease Hypertension Surgical History Hx of colonoscopy History of lumbar spinal fusion Status post left partial knee replacement History of total right knee replacement History of appendectomy History of hysterectomy History of section Social History household members: spouse Smoking Status: Former smoker alcohol intake: current alcohol intake frequency: holidays/special occasions only substance use type: does not use what type of physical activity do you participate in: walking frequency: 1-2 times per week Review of Systems (Anesthesia) ROS Narrative System reviewed and no additional complaints, except as documented.
--- NOTE | 2024-10-07 11:50 | RAD_ITS ---
PROCEDURE: Fluoroscopy use. 10/07/2024 REASON FOR EXAM: BLOCK, CAUDAL TECHNIQUE: A single lateral spot image of the sacrum/coccyx was obtained during caudal nerve block. 7.2 seconds of fluoroscopic time utilized. COMPARISON: None. FINDINGS: A single lateral projection of the sacrum/coccyx was obtained. A needle tip projects over the distal sacrum. RAD/Fluor Guidance for Spine Inj IMPRESSION: Documentation of fluoroscopy use during caudal nerve block. Please see the pro cedure note for details. Reading Location: [facility]
[2024-10-07] MEDS: Bupivacaine 0.25% 30 ML Vial (11:57)
[2024-10-07] MEDS: Lidocaine 1% (5 ml sdv) 5 ML Vial (11:57)
[2024-10-07] MEDS: MethylPREDNISolone Acetate 80 MG/ML Vial (11:57)
[2024-10-07] MEDS: 0.9% Normal Saline (Pres. free 10 ML Vial (11:58)
--- NOTE | 2024-10-07 12:00 | OP.PCM_ITS ---
Operative Report (Standard) Operative Information Date of Procedure: 10/07/24 Pre-Operative Diagnosis: Lumbosacral radiculopathy, lumbosacral degenerative disc disease, lumbosacral spinal stenosis, postlaminectomy syndrome of the lumbar spine Post-Operative Diagnosis: Lumbosacral radiculopathy, lumbosacral degenerative disc disease, lumbosacral spinal stenosis, postlaminectomy syndrome of the lumbar spine Surgery/Procedure Performed: Diagnostic/therapeutic caudal epidural steroid injection under fluoroscopic guidance. 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 BLOOD LOSS: Minimal. COMPLICATIONS: None. DESCRIPTION OF PROCEDURE: History and physical of today was reviewed. Risks and benefits of the procedure were explained. The patient understood and agreed to proceed. Informed consent was obtained. IV inserted per routine protocol. The patient was taken to the operating room and placed in the prone position with a pillow positioned underneath the abdomen. The lower back and tailbone area was prepped and draped in a sterile fashion using iodine x3. Under fluoroscopy guidance on a lateral view, the caudal space was identified. The skin and subcutaneous tissue was anesthetized with approximately 3 mL of 1% lidocaine using a 25-gauge regular needle. Under direct visualization with fluoroscopy, using a 22-gauge 3-1/2-inch spinal needle, the needle was advanced via the skin through the sacral hiatus. The tip of the needle was passed through the sacrococcygeal ligament and advanced to approximately S4 area. After negative aspiration of blood or CSF, a total of 3 mL of contrast was injected to confirm correct placement of the needle as well as cephalad spread. The spread was followed to approximately L5 area. After confirmation on AP as well as lateral view and repeated negative aspiration, a total of 15 mL of preservative-free 0.125% Marcaine with 80 mg of Depo-Medrol was injected easily. The needle was then removed intact. The patient experienced no sign or symptoms of intrathecal or intravascular injection. The patient experienced no paresthesia. The procedure was completed without any apparent difficulty or any complications. The patient appeared to tolerate it well. ASSESSMENT AND PLAN: This is a 64-year-old female with Lumbosacral radiculopathy, lumbosacral degenerative disc disease, lumbosacral spinal stenosis, postlaminectomy syndrome of the lumbar spine, status post diagnostic/therapeutic caudal epidural steroid injection under fluoroscopic guidance, patient will continue her current medications, patient will follow-up in approximately 1 to 2 weeks for reevaluation. Surgical Findings: 0 Complications Complications: No Admit VTE Documentation VTE Present on Admission: No VTE Mechan Device Prophylaxis: None VTE Pharm Prophylaxis ordered?: No
--- NOTE | 2024-10-07 12:08 | PCM.POST.ANE ---
Anesthesia: Postop Eval I Current Vital Signs Temperature: 98.4 F Pulse Rate: 98 Blood Pressure: 142/90 Respiratory Rate: 18 Pulse Ox: 100 Oxygen Delivery Method: Room Air Assessment Airway patent: Yes Spontaneous unlabored respirations: Yes Mental status: Awake nausea: No Vomiting: No Anesthesia Complication: No Fluid Hydration Crystalloid volume administer (ml): 10 Total IV fluid infused: 10 Progress Note Anesthesia document: Postop Eval 1 completed: Yes
--- NOTE | 2024-10-07 12:26 | POSTOPAN2_ITS ---
Anesthesia Postop Eval I Sum Postop Eval Completion status Anesthesia document: Postop Eval 1 completed: Yes Anesthesia Postop Eval I Summary Anesthesia Postop Eval I Summary: Anesthesia Postop Eval I: Assessment Summary Airway patent Yes 10/07/24 12:09 [email or web address] [email or web address] Spontaneous unlabored Yes 10/07/24 12:09 BOARD [email or web address] respirations Mental status Awake 10/07/24 12:09 [email or web address] [email or web address] nausea No 10/07/24 12:09 BOARD [email or web address] Vomiting No 10/07/24 12:09 BOARD [email or web address] Anesthesia Postop Eval I: Fluid Summary Crystalloid volume administer 10 10/07/24 12:09 BOARD [email or web address] (ml) Colloids volume administered ( ml) Blood Product volume administered (ml) Total IV fluid infused 10 10/07/24 12:09 BOARD [email or web address] Anesthesia Postop Eval I: Summary Notes Anesthesia Complication No 10/07/24 12:09 BOARD [email or web address] Anesthesia Complication Comment: Post-operative progress note Anesthesia: Postop Eval II Evaluation Mental status: Awake Pain Level: 3 nausea: No Vomiting: No
--- NOTE | 2024-10-07 12:26 | PCM.POSTANE2 ---
Anesthesia Postop Eval I Sum Postop Eval Completion status Anesthesia document: Postop Eval 1 completed: Yes Anesthesia Postop Eval I Summary Anesthesia Postop Eval I Summary: Anesthesia Postop Eval I: Assessment Summary Airway patent Yes 10/07/24 12:09 [email or web address] Spontaneous unlabored Yes 10/07/24 12:09 [email or web address] respirations Mental status Awake 10/07/24 12:09 [email or web address] nausea No 10/07/24 12:09 [email or web address] Vomiting No 10/07/24 12:09 [email or web address] Anesthesia Postop Eval I: Fluid Summary Crystalloid volume administer 10 10/07/24 12:09 [email or web address] (ml) Colloids volume administered ( ml) Blood Product volume administered (ml) Total IV fluid infused 10 10/07/24 12:09 [email or web address] Anesthesia Postop Eval I: Summary Notes Anesthesia Complication No 10/07/24 12:09 [email or web address] Anesthesia Complication Comment: Post-operative progress note Anesthesia: Postop Eval II Evaluation Mental status: Awake Pain Level: 3 nausea: No Vomiting: No
== END 2024-10-07 12:55 | disposition home or self-care (01) ==
LOC: SDC 10:46 → AC 11:17
PROVIDERS: PCP Family Medicine Geriatric Medicine; Referring Provider Anesthesiology Pain Medicine; Visit Provider Anesthesiology Pain Medicine
PROC: 3E0S3BZ Introduction of Anesthetic Agent into Epidural Space, Percutaneous Approach (ICD-10-PCS; CPT 62282; principal; 2024-10-07 12:35)
DX: M48.07 Spinal stenosis, lumbosacral region (principal); M96.1 Postlaminectomy syndrome, not elsewhere classified; M51.17 Intervertebral disc disorders with radiculopathy, lumbosacral region
CPT/HCPCS: 62323; 64483; 77003

== ENCOUNTER → 2024-10-28 | Outpatient (CLI) | payer MEDICARE, SELFPAY ==
[2024-10-28 10:49] LABS: Erythrocyte Sedimentation Rate 2 mm/hr (0-30)
[2024-10-28 10:51] LABS: Absolute Lymphocyte Count 1.87 X10^3/uL (0.83-4.51); Absolute Neutrophil Count 5.2 X10^3/uL (2.0-7.7); Basophil# 0.08 X10^3/uL; Eosinophil# 0.08 X10^3/uL; Hematocrit 41.7 % (37-47); Hemoglobin 13.9 g/dL (12.0-15.0); Lymphocyte # 1.87 X10^3/ul (0.83-4.51); Mean Corp Hgb Conc 33.3 g/dL (32-36); Mean Corpuscular Hgb 30.8 pg (27.0-32.0); Mean Corpuscular Volume 92.3 fL (81-99); Mean Platelet Vol. 10.1 fl (6.2-12.0); Monocyte# 0.82 X10^3/uL; Monocyte% 10.1 % (0-10); NRBC Flagged by Analyzer 0 % (0-5); Neutrophil # 5.24 X10^3/uL (2.7-7.7); Neutrophil % 64.5 % (47-70); Platelet Count 319 K/mm3 (150-450); RBC Distribution Width CV 12.7 % (11.6-14.6); RBC Distribution Width SD 43.3 fl (35.1-43.9); Red Blood Count 4.52 M/mm3 (4.2-5.4); White Blood Count 8.1 K/mm3 (4.4-11.0)
[2024-10-28 11:08] LABS: ALB/GLOB Ratio 1.5 RATIO (0.9-2.4); AST(SGOT) 18 U/L (<=31); Alanine Aminotransfer ALT/SGPT 19 U/L (<=34); Albumin, Serum 4.3 g/dL (3.4-4.8); Alkaline Phosphatase 93 U/L (35-104); Anion Gap 13 (5-15); BUN 15 mg/dL (4-19); BUN/Creat Ratio 20.4 RATIO (10-20); CRP 6.21 mg/L (0.0-3.0); Calcium,Total 9.2 mg/dL (7.6-11.0); Carbon Dioxide 25.4 mmol/L (21.0-32.0); Chloride 99 mmol/L (98-108); Creatinine, Serum 0.72 mg/dL (0.70-1.20); EST Glomerular Filtration Rate 94 (>60); Globulin 2.9 g/dL (2.2-4.2); Glucose 96 mg/dL (70-99); Potassium 3.9 mmol/L (3.3-5.1); Protein, Total 7.2 g/dL (5.9-8.4); Sodium Level 137 mmol/L (133-145); Total Bilirubin 0.43 mg/dL (0.00-1.30)
== END | disposition home or self-care (01) ==
LOC: LAB 09:47
PROVIDERS: PCP Family Medicine Geriatric Medicine; Referring Provider Internal Medicine Gastroenterology; Visit Provider Internal Medicine Gastroenterology
DX: K50.919 Crohn's disease, unspecified, with unspecified complications (principal); D64.9 Anemia, unspecified
CPT/HCPCS: 80053; 85025; 85652; 86140

== ENCOUNTER → 2024-12-02 | Outpatient (CLI) | payer MEDICARE, SELFPAY ==
[2024-12-02 14:58] LABS: Absolute Lymphocyte Count 2.21 X10^3/uL (0.83-4.51); Absolute Neutrophil Count 7.5 X10^3/uL (2.0-7.7); Basophil# 0.06 X10^3/uL; Basophil% 0.5 % (0-1); Eosinophil# 0.08 X10^3/uL; Eosinophils% 0.7 % (0-5); Hematocrit 41.5 % (37-47); Hemoglobin 13.7 g/dL (12.0-15.0); Lymphocyte # 2.21 X10^3/ul (0.83-4.51); Lymphocyte % 20.2 % (19-41); Mean Corpuscular Hgb 30.8 pg (27.0-32.0); Mean Corpuscular Volume 93.3 fL (81-99); Mean Platelet Vol. 9.7 fl (6.2-12.0); Monocyte# 1.05 X10^3/uL; Monocyte% 9.6 % (0-10); NRBC Flagged by Analyzer 0 % (0-5); Neutrophil # 7.51 X10^3/uL (2.7-7.7); Neutrophil % 68.5 % (47-70); Platelet Count 328 K/mm3 (150-450); RBC Distribution Width CV 13.2 % (11.6-14.6); RBC Distribution Width SD 45.4 fl (35.1-43.9); Red Blood Count 4.45 M/mm3 (4.2-5.4)
[2024-12-02 15:47] LABS: ALB/GLOB Ratio 1.6 RATIO (0.9-2.4); AST(SGOT) 22 U/L (<=31); Alanine Aminotransfer ALT/SGPT 24 U/L (<=34); Albumin, Serum 4.5 g/dL (3.4-4.8); Alkaline Phosphatase 82 U/L (35-104); Anion Gap 15 (5-15); BUN 16 mg/dL (4-19); BUN/Creat Ratio 19.5 RATIO (10-20); Calcium,Total 9.5 mg/dL (7.6-11.0); Carbon Dioxide 23.3 mmol/L (21.0-32.0); Chloride 99 mmol/L (98-108); Creatinine, Serum 0.82 mg/dL (0.70-1.20); EST Glomerular Filtration Rate 81 (>60); Globulin 2.8 g/dL (2.2-4.2); Glucose 81 mg/dL (70-99); Potassium 3.7 mmol/L (3.3-5.1); Protein, Total 7.3 g/dL (5.9-8.4); Sodium Level 137 mmol/L (133-145); Total Bilirubin 0.36 mg/dL (0.00-1.30)
== END | disposition home or self-care (01) ==
LOC: LAB 13:37
PROVIDERS: PCP Family Medicine Geriatric Medicine; Referring Provider Family Medicine Geriatric Medicine; Visit Provider Family Medicine Geriatric Medicine
DX: I10 Essential (primary) hypertension (principal)
CPT/HCPCS: 36415; 80053; 84443; 85025

== ENCOUNTER 2025-03-10 07:12 | Day surgery (SDC) | payer MEDICARE, SELFPAY ==
[2025-03-10] VITALS (8 sets, daily range): BP systolic 97–140; BP diastolic 67–92; PULSE 64–80; RESP 16–20; TEMP 36.1–36.2; O2SAT 95–99; BMI 28.8
--- OUTSIDE RECORDS SUMMARY | 2025-03-10 07:16 | XMS RPT_ITS | CCD ---
Author Organization [facility] CliniSynh Care Team Providers Care Lift Builder Whole Name Role Phone RAHUL TRINIDAD Manning Unavailable Unavailable Nidia Lawler Unavailable Unavailable UNKNOWN Unavailable Unavailable Sai Estrada Unavailable Unavailable Unavailable, Family Physician Unavailable Un available Unavailable, Family Physician Unavailable Un available ZNEAIDA MARR Unavailable Unavailable Az ROSADO, Kris Davis Primary Care Provider [phone] BERNARDO, KRIS SERGEY Primary Care Unavailable JESUS ALBERTO HARRIS Referring Unavailable BERNARDO, KRIS SERGEY Primary Care Unavailable TESTRALAMONT, YUMIKO Attending Unavailable TESTRALAMONT, YUMIKO Admitting Unavailable Dr. Hernandez Mosley Chi Primary Care Provider Dimitri, Dr. Hernandez Alvarez Referring Provider Dr. Reyes Damian Attending Provider Dr. Vincent Villagomez Attending Provider [phone] Hernandez Mosley Chi Primary Care Provider TESTRAKE, YUMIKO Referring Unavailable BERNARDO, KRIS SERGEY Primary Care Unavailable TESTRAKE, YUMIKO Referring Unavailable HERNANDEZ MOSLEY CHI Primary Care Unavailable TESTRAKE, YUMIKO Attending Unavailable BERNARDO, KRIS SERGEY Referring Unavailable BERNARDO, KRIS SERGEY Primary Care Unavailable JESUS ALBERTO HARRIS Attending Unavailable CHRISTIAN DUNNE Referring Unavailable BERNARDO, KRIS SERGEY Primary Care Unavailable TESTRAKE, YUMIKO Attending Unavailable TESTRAKE, YUMIKO Referring Unavailable BERNARDO, KRIS SERGEY Primary Care Unavailable Dr. Hernandez Mosley Chi Primary Care Provider Dr. Hernandez Mosley Chi Referring Provider Dr. Reyes Damian Attending Provider Dr. Vincent Villagomez Attending Provider [phone] Reyes Damian Admit Provider Dr. Reyes Damian Referring Provider Dr. Reyes Damian Other Provider Dr. Amandeep Madrigal Other Provider Karen, Dr. Portillo Attending Provider Arianna, Dr. Jesse Brambila Attending Provider Dr. Jesse Keller Other Provider Korjonathan, Dr. Lydia Breaux Attending Provider Koram, Dr. Lydia Breaux Other Provider Dr. Liza Wolfe Attending Provider Dimitri, Dr. Hernandez Alvarez Primary Care Provider Dimitri, Dr. Hernandez Alvarez Referring Provider Dr. Reyes Damian Attending Provider Hernando, Dr. Kaur Attending Provider [phone] Az ROSADO, Kris Chirinos Primary Care Provider Dimitri, Dr. Hernandez Alvarez Primary Care Provider Dimitri, Dr. Hernandez Alvarez Referring Provider Dr. Reyes Damian Attending Provider Hernando, Dr. Kaur Attending Provider [phone] Shabbir Birch Attending Provider [phone] Dr. Shabbir Birch Referring Provider [phone] Dr. Shabbir Birch Other Provider Dimitri, Dr. Hernandez Alvarez Primary Care Provider Dimitri, Dr. Hernandez Alvarez Referring Provider Hernando, Dr. Kaur Attending Provider Dr. Shabbir Birch Referring Provider Dr. Michael Lyman Emergency Provider Dr. Jorge L May Admit Provider Unavailabl e de Anoop, Dr. Coats Attending Provider Unavail able May, Dr. Coats Other Provider Unavailabl e Leon, Dr. Lopez Other Provider Citlali, Dr. Angel Attending Provider [phone] Marcelino, Dr. Gorman Attending Provider [facility] [place], Dr. Gorman Other Provider Dimitri, Dr. Hernandez Alvarez Primary Care Provider Dimitri, Dr. Hernandez Alvarez Referring Provider Dr. Shabbir Birch Attending Provider Dr. Vincent Villagomez Attending Provider Dr. Michael Lyman Emergency Provider [phone] May, Dr. Coats Admit Provider Unavailabl e de Anoop, Dr. Coats Attending Provider Unavail able de Anoop, Dr. Coats Other Provider Unavailabl e Leon, Dr. Lopez Other Provider Citlali, Dr. Angel Attending Provider Marcelino, Dr. Gorman Referring Provider [facility] [place], Dr. Gorman Attending Provider [facility] [place], Dr. Gorman Other Provider Sri, Dr. Modi Attending Provider Dimitri, Dr. Hernandez Alvarez Primary Care Provider Dimitri, Dr. Hernandez Alvarez Referring Provider Dr. Shabbir Birch Attending Provider Dr. Stanley Godwin Other Provider [phone] Dimitri ROSADO, Dr. Hernandez Alvarez Primary Care Provider Dimitri ROSADO, Dr. Hernandez Alvarez Referring Provider Gautam Abarca Attending Provider Dr. Stanley Godwin DO Attending Provider Dr. Stanley Godwin DO Referring Provider Khang ROSADO, Dr. Boyle Attending Provider Khang ROSADO, Dr. Boyle Referring Provider Dimitri ROSADO, Dr. Hernandez Alvarez Primary Care Provider Dimitri ROSAOD, Dr. Hernandez Alvarez Referring Provider Dimitri ROSADO, Dr. Hernandez Alvarez Attending Provider [phone] Dimitri, Hernandez Chi Primary Care Unavailable Dimitri, Hernandez Chi Referring Unavailable Dimitri, Hernandez Chi Attending Unavailable Dimitri, Hernandez Chi Attending Unavailable Dimitri, Hernandez Chi Primary Care Unavailable Friend, Stanley Attending Unavailable Dimitri, Hernandez Chi Primary Care Unavailable Dimitri, Hernandez Chi Referring Unavailable Dimitri, Hernandez Chi Referring Unavailable Friend, Stanley Attending Unavailable Dimitri, Hernandez Chi Primary Care Unavailable Dimitri, Hernandez Chi Primary Care Unavailable Dimitri, Hernandez Chi Referring Unavailable Gautam Abarca Attending Unavailable Friend, Stanley Attending Unavailable Dimitri, Hernandez Chi Primary Care Unavailable Dimitri, Hernandez Chi Referring Unavailable Dimitri, Hernandez Chi Primary Care Unavailable Dimitri, Hernandez Chi Referring Unavailable Friend, Stanley Attending Unavailable Dimitri, Hernandez Chi Primary Care Unavailable Montana Quiñonez Referring Unavailable Montana Quiñonez Attending Unavailable Dimitri, Hernandez Chi Primary Care Unavailable Dimitri, Hernandez Chi Referring Unavailable Dimitri, Hernandez Chi Attending Unavailable Dimitri, Hernandez Chi Primary Care Unavailable Dimitri, Hernandez Chi Referring Unavailable Dimitri, Hernandez Chi Attending Unavailable Dimitri, Hernandez Chi Primary Care Unavailable Dimitri, Hernandez Chi Referring Unavailable Dimitri, Hernandez Chi Attending Unavailable Dimitri, Hernandez Chi Primary Care Unavailable Friend, Stanley Referring Unavailable Friend, Stanley Attending Unavailable Montana Quiñonez Attending Unavailable Dimitri, Hernandez Chi Primary Care Unavailable Montana Quiñonez Referring Unavailable Dimitri, Hernandez Chi Primary Care Unavailable Dimitri, Hernandez Chi Referring Unavailable Dimitri, Hernandez Chi Attending Unavailable Dimitri, Hernandez Chi Primary Care Unavailable Friend, Stanley Referring Unavailable Friend, Stanley Attending Unavailable Friend, Stanley Attending Unavailable Friend, Stanley Referring Unavailable Dimitri, Hernandez Chi Primary Care Unavailable Dimitri, Hernandez Chi Primary Care Unavailable Montana Quiñonez Referring Unavailable Montana Quiñonez Attending Unavailable Allergies Allergy Classification Reported Allergen(s) Allergy Type Date of Onset Reaction(s) Facility (12 sources) Adhesive Tape; Translations: [ADHESIVE TAPE (ROSINS)] Propensity to adverse reactions (disorder) 6 Rash [facility] Other [place] [facility] (20 sources) Adhesive Tape; Translations: [adhesive tape] Allergy to substance 1 blistering [facility] (15 sources) BEE STING; Translations: [BEE STING] Allergy to substance 0 Swelling [facility] Work Phone: (20 sources) bee venom protein (honey bee) Allergy to substance 3 Swelling [facility] (1 source) bee venom protein (honey bee) Drug allergy (disorder) 5 [facility] Repository Medications Current Medications Medication Drug Class(es) Dates Sig (Normalized) Sig (Original) acetaminophen 500 mg oral tablet (15 sources) Start: 06-21-2023 take 2 tablets by mouth every six hours as needed Acetaminophen 500 mg tablet Active 1000 mg PO EVERY 6 HOURS NEEDED June 21, 2023 1:00am Start: 06-21-2023 take 1000 mg by mout h every six hours as needed Acetaminophen Active 1000 MG PO EVERY 6 HOURS NEEDED June 21, 2023 1:00am Acidophilus-Pectin, [place] 25 million cell -100 mg Tablet (3 sources) Start: 09-26-2023 take 1 tablet by mouth twice daily Acidophilus-Pectin, [place] 25 million cell -100 mg Tablet Active 2 {tbl} PO TWICE A DAY 0 September 26, 2023 1:00am [id number]. Probiotic. At least for 2 week. amLODIPine 5 mg oral tablet (20 sources) Dihydropyridine Calcium Channel Tresa Start: 11-09-2023 take 1 tablet by mouth at bedtime Amlodipine (Norvasc) 5 mg tablet Active 5 mg PO AT BEDTIME November 09, 2023 12:00am Start: 01-03-2018 End: 11-09-2023 take 2.5 mg by mouth at bedtime Amlodipine 5 MG tablet Discontinued 2.5 mg PO AT BEDTIME January 03, 2018 3:42pm November 09, 2023 3:19pm Start: 01-03-2018 End: 11-09-2023 take 2.5 mg by mouth at bedtime Amlodipine Discontinue d 2.5 MG PO AT BEDTIME January 03, 2018 3:42pm November 09, 2023 3:19pm Start: 10-28-2017 End: 01-03-2018 take 1 tablet by mouth once daily Amlodipine 5 MG tablet Discontinued 5 mg PO DAILY October 28, 2017 12:00am January 03, 2018 3:42pm Comment on above: Take 5 mg by mouth o nce daily. cyclobenzaprine hydrochloride 10 mg oral tablet (1 source) Muscle Relaxant Start: take 10 mg by mouth three times daily Cyclobenzaprine Active 10 MG PO THREE TIMES A DAY April 22, 2023 12:00am dicyclomine hydrochloride 20 mg oral tablet (17 sources) Anticholinergic Start: End: take 1 tablet by mouth three times daily as needed for pain Dicyclomine 20 mg tablet Active 20 mg PO THREE TIMES A DAY as needed for abdominal pain October 04, 2024 12:00am Start: 09-26-2023 End: 11-09-2023 take 1 capsule by mouth three times daily before mealtime as needed Dicyclomine 10 mg Capsule Discontinued 10 mg PO THREE TIMES DAILY BEFORE MEALS as needed for ABDOMINAL CRAMPS September 26, 2023 1:00am November 09, 2023 3:20pm DULoxetine 30 mg delayed release oral capsule (10 sources) Serotonin and Norepinephrine Reuptake Inhibitor Start: 02-12-2024 End: 11-18-2024 take 1 capsule by mouth once daily Duloxetine 30 mg capsule,delayed release(DR/EC) Active 30 mg PO DAILY November 18, 2024 1:25pm furosemide 20 mg oral tablet (16 sources) Loop Diuretic Start: 01-12-2023 take 1 tablet by mouth once daily Furosemide 20 mg tablet Active 20 mg PO DAILY January 12, 2023 12:00am hyoscyamine sulfate 0.125 mg oral tablet (3 sources) Start: 08-13-2024 Hyoscyamine Sulfate 0.125 mg tablet Active 0.125 mg PO 2 to 4 times per day as needed for dyspepsia August 13, 2024 1:00am lactobacillus acidophilus [id number] unt / pectin 100 mg oral tablet (8 sources) Start: 09-26-2023 take 2 tablets by mouth twice daily Acidophilus-Pectin, [place] Active 2 TABLET PO TWICE A DAY September 26, 2023 1:00am [id number]. Probiotic. At least for 2 week. ondansetron 4 mg disintegrating oral tablet (2 sources) Serotonin-3 Receptor Antagonist Start: 12-22-2021 take 4 mg by mouth every eight hours as needed Ondansetron Active 4 MG PO EVERY 8 HOURS NEEDED December 22, 2021 11:48am pantoprazole 40 mg delayed release oral tablet (20 sources) Proton Pump Inhibitor Start: 03-23-2016 End: 08-09-2022 take 1 tablet by mouth once daily Pantoprazole 40 MG tablet,delayed release (DR/EC) Active 40 mg PO DAILY August 09, 2022 12:04pm Comment on above: Take 1 tablet by karyn once daily. rOPINIRole 0.25 mg oral tablet (20 sources) Nonergot Dopamine Agonist Start: 08-09-2022 take 0.5 mg by mouth at bedtime Ropinirole Active 0.5 MG PO AT BEDTIME August 09, 2022 1:00am Start: 06-29-2017 take 2 tablets by mo [facility] [place] at bedtime Ropinirole 0.25 mg tablet Active 0.5 mg PO AT BEDTIME August 09, 2022 1:00am Comment on above: Take 2 tablets by mo [facility] [place] daily at bedtime. 1 ml ustekinumab 90 mg/ml prefilled syringe (3 sources) Interleukin-12 Antagonist, Interleukin-23 Antagonist Start: 03-11-20 24 Ustekinumab (Stelara) 90 mg/mL syringe Active 90 mg SC every 8 weeks March 11, 2024 12:00am ICD 10- K50.90 Crohn's Disease venlafaxine 37.5 mg oral tablet (20 sources) Serotonin and Norepinephrine Reuptake Inhibitor Start: 03-20-20 16 take 2 tablets by mouth at bedtime Venlafaxine 37.5 MG tablet Active 75 mg PO AT BEDTIME March 20, 2016 12:00am Start: 03-20-2016 take 75 mg by mouth at bedtime Venlafaxine Active 75 MG PO AT BEDTIME March 20, 2016 12:00am Start: 03-20-2016 take 1 tablet by karyn twice daily venlafaxine (EFFEXOR) 37.5 mg tablet Indications: Menopausal hot flushes Take 1 tablet by mouth twice daily. 180 tablet 3 08/05/2016 Active Comment on above: Take 1 tablet by karyn twice daily. Completed/Discontinued Medications Medication Drug Class(es) Dates Sig (Normalized) Sig (Original) acetaminophen 325 mg / HYDROcodone bitartrate 5 mg oral tablet (20 sources) Opioid Agonist Start: 01-03-2018 End: 08-21-2018 Hydrocodone-Acetami nophen 1 EACH tablet Discontinued 1 - 2 NMA PO 4 TIMES DAILY NEEDED as needed for Pain 10 12January 03, 2018 12:00am August 21, 2018 3:13pm Start: 01-03-2018 End: 08-21-2018 Hydrocodone-Acetaminophen Di scontinued 1 - 2 EACH PO 4 TIMES DAILY NEEDED 10 12January 03, 2018 12:00am August 21, 2018 3:13pm acetaminophen 325 mg / oxyCODONE hydrochloride 5 mg oral tablet (20 sources) Opioid Agonist Start: 12-02-2022 End: 12-12-2022 Oxycodone-Acetaminophen 5-32 5 mg tablet Discontinued 1 {tbl} PO EVERY 6 HOURS as needed for pain 40 December 02, 2022 December 11, 2022 12:00am December 12, 2022 12:04am Start: 12-02-2022 End: 12-12-2022 take 1 tablet by mouth every six hours Oxycodone-Acetaminophen Discontinued 1 TABLET PO EVERY 6 HOURS 40 December 02, 2022 December 12, 2022 12:04am Start: 11-21-2022 End: 12-01-2022 Oxycodone-Acetaminophen 5-32 5 mg tablet Discontinued 1 {tbl} PO EVERY 6 HOURS as needed for pain 40 November 21, 2022 November 30, 2022 12:00am December 01, 2022 12:05am Start: 11-21-2022 End: 12-01-2022 take 1 tablet by mouth every six hours Oxycodone-Acetaminophen Discontinued 1 TABLET PO EVERY 6 HOURS 40 November 21, 2022 December 01, 2022 12:05am Start: 11-11-2022 End: 11-16-2022 Oxycodone-Acetaminophen 5-32 5 mg tablet Discontinued 1 {tbl} PO EVERY 6 HOURS as needed for pain 10 12November 11, 2022 November 15, 2022 12:00am November 16, 2022 12:04am Start: 11-11-2022 End: 11-16-2022 take 1 tablet by mouth every six hours Oxycodone-Acetaminophen Discontinued 1 TABLET PO EVERY 6 HOURS 20 November 11, 2022 November 16, 2022 12:04am Start: 10-31-2022 End: 11-10-2022 Oxycodone-Acetaminophen 5-32 5 mg tablet Discontinued 1 {tbl} PO EVERY 6 HOURS as needed for pain 40 October 31, 2022 November 09, 2022 12:00am November 10, 2022 12:05am Start: 10-31-2022 End: 11-10-2022 take 1 tablet by mouth every six hours Oxycodone-Acetaminophen Discontinued 1 TABLET PO EVERY 6 HOURS 40 October 31, 2022 November 10, 2022 12:05am Start: 10-14-2022 End: 10-30-2022 Oxycodone-Acetaminophen 5-32 5 mg tablet Discontinued 1 {tbl} PO EVERY 6 HOURS as needed for pain 40 October 20, 2022 October 29, 2022 12:00am October 30, 2022 12:04am Start: 10-14-2022 End: 10-30-2022 take 1 tablet by mouth every six hours Oxycodone-Acetaminophen Discontinued 1 TABLET PO EVERY 6 HOURS 40 October 20, 2022 October 29, 2022 11:04pm amoxicillin 500 mg oral tablet (3 sources) Penicillin-class Antibacterial Start: 06-24-2024 End: 10-04-2024 take 1 tablet by mouth three times daily Amoxicillin 500 mg tablet Discontinued 500 mg PO THREE TIMES A DAY June 24, 2024 1:00am October 04, 2024 2:54pm aspirin 81 mg oral tablet (15 sources) Platelet Aggregation Inhibitor, Nonsteroidal Anti-inflammatory Drug Start: 06-21-2023 End: 08-21-2023 take 1 capsule by mouth twice daily Aspirin 81 mg capsule Discontinued 81 mg PO TWICE A DAY June 21, 2023 1:00am August 21, 2023 12:32pm To prevent blood clot budesonide 3 mg delayed release oral capsule (3 sources) Corticosteroid Start: 11-23-2023 End: 05-03-2024 take 2 capsules by mouth once daily Budesonide 3 mg capsule,delayed,e xtend.release Discontinued 6 mg PO DAILY November 23, 2023 12:00am May 03, 2024 10:44am Take two 3mg caps daily celecoxib 100 mg oral capsule (13 sources) Nonsteroidal Anti-inflammatory Drug Start: 08-04-2023 End: 08-21-2023 take 1 capsule by mouth twice daily Celecoxib (Celebrex) 100 mg capsule Discontinued 100 mg PO TWICE A DAY August 04, 2023 1:00am August 21, 2023 12:33pm cephalexin 500 mg oral capsule (15 sources) Cephalosporin Antibacterial Start: 06-21-2023 End: 08-21-2023 Cephalexin 500 mg capsule Discontinued 1000 mg PO EVERY 8 HOURS June 21, 2023 1:00am August 21, 2023 12:33pm take 2 tabs at 9:00 pm and 2 tabs after 5 am when you wake up Start: 06-21-2023 End: 08-21-2023 Cephalexin Discontinued 1000 MG PO EVERY 8 HOURS June 21, 2023 1:00am August 21, 2023 12:33pm take 2 tabs at 9:00 pm and 2 tabs after 5 am when you wake up ciprofloxacin 500 mg oral tablet (20 sources) Quinolone Antimicrobial Start: 09-26-2023 End: 10-18-2023 take 1 tablet by mouth twice daily Ciprofloxacin Hcl 500 mg tablet Discontinued 500 mg PO TWICE A DAY 06 28September 26, 2023 1:00am October 18, 2023 2:16pm Start: 01-03-2018 End: 08-21-2018 take 1 tablet by mouth twice daily Ciprofloxacin Hcl 500 MG tablet Discontinued 500 mg PO TWICE A DAY January 03, 2018 12:00am August 21, 2018 3:12pm diazePAM 5 mg oral tablet (17 sources) Benzodiazepine Start: 10-14-2022 End: 10-24-2022 take 1 tablet by mouth three times daily as needed for anxiety Diazepam (Valium) 5 mg tablet Discontinued 5 mg PO THREE TIMES A DAY as needed for anxiety 22 05October 14, 2022 12:00am October 23, 2022 12:00am October 24, 2022 12:04am ergocalciferol 1.25 mg oral capsule (9 sources) Provitamin D2 Compound Start: 08-08-2017 ergocalciferol, vitamin D2, (DRISDOL) 50,000 unit capsule Indications: Vitamin D deficiency Take 1 capsule by mouth twice a week. (FOR EXAMPLE ONE CAPSULE ON MONDAY AND ONE ON MONDAY) FOR A TOTAL OF 8 WEEKS, WITH A MEAL 8 capsule 1 08/08/2017 Active Comment on above: Take 1 capsule by [facility] twice a week. (FOR EXAMPLE ONE CAPSULE ON MONDAY AND ONE ON MONDAY) FOR A TOTAL OF 8 WEEKS, WITH A MEAL folic acid 1 mg oral tablet (20 sources) Start: 10-23-2023 End: 05-03-2024 take 1 tablet by mouth once daily Folic Acid 1 mg tablet Discontinued 1 mg PO DAILY October 23, 2023 12:00am May 03, 2024 10:44am Start: 10-25-2017 End: 09-24-2023 take 1 tablet by mouth once daily Folic Acid 1 MG tablet Discontinued 1 mg PO DAILY@0800 October 25, 2017 12:00am September 24, 2023 2:29am hydroCHLOROthiazide 25 mg / triamterene 37.5 mg oral capsule (20 sources) Potassium-sparing Diuretic, Thiazide Diuretic Start: 03-20-2016 End: 10-28-2017 Triamterene-Hydrochlorothiaz id 1 CAP capsule Discontinued 1 NMA PO AT BEDTIME March 20, 2016 12:00am October 28, 2017 11:33am Start: 03-20-2016 End: 10-28-2017 take 1 capsule by mouth at bedtime Triamterene-Hydrochlorothiazid Discontin ued 1 CAP PO AT BEDTIME March 20, 2016 12:00am October 28, 2017 11:33am hydrocortisone 20 mg oral tablet (3 sources) Corticosteroid Start: 02-12-2024 End: 10-04-2024 take 1 tablet by mouth twice daily Hydrocortisone 20 mg tablet Discontinued 20 mg PO TWICE A DAY 60 February 12, 2024 12:00am October 04, 2024 2:55pm mesalamine 1200 mg delayed release oral tablet (7 sources) Aminosalicylate Start: 09-28-2023 End: 02-12-2024 take 2 tablets by mouth once daily Mesalamine 1.2 gram tablet,delayed release (DR/EC) Discontinued 2.4 g PO DAILY 56 September 28, 2023 1:00am February 12, 2024 1:35pm Start: 09-28-2023 take 2.4 g by mouth once daily Mesalamine Active 2.4 GM PO DAILY 56 September 28, 2023 1:00am methotrexate 2.5 mg oral tablet (20 sources) Folate Analog Metabolic Inhibitor Start: 10-23-2023 End: 05-03-2024 Methotrexate Sodium 2.5 mg tablet Discontinued 12.5 mg PO November 09, 2023 12:00am May 03, 2024 10:44am Start: 10-23-2023 End: 11-09-2023 Methotrexate Sodium Active 1 2.5 MG PO November 09, 2023 12:00am Start: 10-25-2017 End: 09-30-2022 Methotrexate Sodium 2.5 MG t ablet Discontinued 12.5 mg PO October 25, 2017 12:00am September 30, 2022 10:01am Start: 10-25-2017 End: 09-30-2022 Methotrexate Sodium Disconti nued 12.5 MG PO October 25, 2017 12:00am September 30, 2022 10:01am Comment on above: Take 12.5 mg by mout h every Monday. methylPREDNISolone 4 mg oral tablet (4 sources) Corticosteroid Start: 2021 End: 2021 methylPREDNISolone (MEDROL, AMIRA,) 4 mg Dose-Pack Take 1 tablet by mouth as directed. As directed on package 21 tablet 0 05/02/2022 05/30/2022 Discontinued Comment on above: Take 1 tablet by karyn th as directed. As directed on package metroNIDAZOLE 500 mg oral tablet (11 sources) Nitroimidazole Antimicrobial Start: 2023 End: 2023 take 1 tablet by mouth every eight hours Metronidazole 500 mg tablet Discontinued 500 mg PO Q8H 05 12September 26, 2023 1:00am November 09, 2023 3:21pm oxyCODONE hydrochloride 5 mg oral tablet (20 sources) Opioid Agonist Start: 2022 End: 2022 take 1 tablet by mouth every eight hours as needed for pain Oxycodone 5 mg tablet Discontinued 5 mg PO Q8H as needed for pain 10 02July 14, 2023 July 20, 2023 1:00am July 21, 2023 1:05am Start: 07-05-2023 End: 12-20-2023 take 5-10 mg by mouth every six hours as needed for pain Oxycodone 5 mg tablet Discontinued 5 - 10 mg PO EVERY 6 HOURS as needed for Pain Score 6-10/10 45 7 July 05, 2023 July 11, 2023 1:00am July 12, 2023 1:09am Start: 06-21-2023 End: 07-14-2023 take 5-15 mg by mouth every four hours as needed for pain Oxycodone 5 mg tablet Discontinued 5 - 15 mg PO Q4H as needed for pain 40 June 23, 2023 July 14, 2023 3:42pm polyethylene glycol 3350 19049 mg powder for oral solution (11 sources) Osmotic Laxative Start: 09-26-2023 End: 05-03-2024 take 17 g by mouth once daily as needed for constipation Polyethylene Glycol 3350 17 gram Powder In Packet Discontinued 17 g PO DAILY as needed for CONSTIPATION 0 September 26, 2023 1:00am May 03, 2024 10:44am ramipril 10 mg oral capsule (20 sources) Angiotensin Converting Enzyme Inhibitor Start: 03-20-2016 End: 08-09-2022 take 1 capsule by mouth twice daily Ramipril 10 MG capsule Discontinued 10 mg PO TWICE A DAY 0 October 28, 2017 12:00am August 09, 2022 12:04pm Start: 03-20-2016 End: 10-28-2017 take 1 capsule by mouth once daily ramipril (ALTACE) 10 mg capsule Indications: Essential hypertension, benign Take 1 capsule by mouth once daily. 180 capsule 3 04/08/2016 Active Comment on above: Take 1 capsule by [facility] once daily. traMADol hydrochloride 50 mg oral tablet (20 sources) Opioid Agonist Start: End: take 50-100 mg by mouth every eight hours as needed for pain Tramadol 50 mg tablet Discontinued 50 - 100 mg PO Q8H as needed for pain 42 August 11, 2023 12:10pm September 26, 2023 9:36am Start: 06-16-2023 End: 06-21-2023 take 1 tablet by mouth once daily as needed for pain Tramadol 50 mg tablet Discontinued 50 mg PO DAILY as needed for pain June 16, 2023 1:00am June 21, 2023 2:43pm Start: 12-14-2022 End: 02-13-2023 take 1 tablet by mouth every six hours as needed for pain Tramadol 50 mg tablet Discontinued 50 mg PO EVERY 6 HOURS as needed for pain 28 7 February 06, 2023 2:36pm February 12, 2023 12:00am February 13, 2023 12:03am Start: 11-29-2018 End: 12-14-2022 take 1 tablet by mouth four times daily as needed for pain Tramadol 50 mg tablet Discontinued 50 mg PO 4 times daily as needed for BACK PAIN November 29, 2018 12:00am December 14, 2022 11:20am Start: 11-29-2018 take 50 mg by mouth twice iva y Tramadol Active 50 MG PO TWICE A DAY November 29, 2018 1:10pm Comment on above: Take 50 mg by mouth twice daily as needed. 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; Translations: [Other deformities of toe(s) (acquired), unspecified foot] Onset: 2 Episodic Administrative/social admission (20 sources) Patient encounter status; Translations: [Encounter for pre-employment examination] 06-22-2021 Episodic Alcohol-related disorders (20 sources) Alcohol intoxication; Translations: [Alcohol use, unspecified with intoxication, unspecified] 10-26-2017 Episodic Allergic reactions (20 sources) Inflammatory dermatosis; Translations: [Dermatitis, unspecified] 06-21-2019 Episodic Anxiety disorders (1 source) Mixed anxiety and depressive disorder; Translations: [Anxiety disorder, unspecified] Onset: 2 05-30-2022 Chronic Diverticulosis and diverticulitis (20 sources) Diverticulitis of intestine; Translations: [Diverticulitis of intestine, part unspecified, without perforation or abscess without bleeding] Onset: 5 10-26-2017 Chronic E Codes: Fall (16 sources) Fall; Translations: [Unspecified fall, initial encounter] 04-22-2023 Episodic Essential hypertension (20 sources) Essential hypertension; Translations: [Essential (primary) hypertension] Onset: 8 07-31-2020 Chronic Fluid and electrolyte disorders (20 sources) Hypokalemia; Translations: [Hypokalemia] 12-30-2021 Episodic Gastritis and duodenitis (20 sources) Gastritis; Translations: [Gastritis, unspecified, without bleeding] 10-26-2017 Episodic Gastroduodenal ulcer (except hemorrhage) (20 sources) Peptic ulcer; Translations: [Peptic ulcer, site unspecified, unspecified as acute or chronic, without hemorrhage or perforation] Onset: 6 03-28-2016 Chronic Gastrointestinal hemorrhage (19 sources) Gastrointestinal hemorrhage; Translations: [Gastrointestinal hemorrhage, unspecified] 09-24-2023 Episodic Gout and other crystal arthropathies (20 sources) Calcium pyrophosphate deposition disease; Translations: [Other chondrocalcinosis, unspecified site] 07-05-2023 Chronic Joint disorders and dislocations; trauma-related (20 sources) Derangement of knee; Translations: [Unspecified internal derangement of unspecified knee] 05-31-2023 Chronic Menopausal disorders (9 sources) Atrophy of vagina; Translations: [Postmenopausal atrophic vaginitis] Onset: 4 10-15-2013 Chronic Nausea and vomiting (20 sources) Nausea and vomiting; Translations: [Nausea with vomiting, unspecified] 12-30-2021 Episodic Nutritional deficiencies (9 sources) Vitamin D deficiency; Translations: [Vitamin D deficiency, unspecified] Onset: 8 08-08-2017 Chronic Osteoarthritis (18 sources) Osteoarthritis of knee; Translations: [Osteoarthritis of knee, unspecified] Onset: 1 07-19-2021 Chronic Other aftercare (13 sources) Follow-up status; Translations: [Encounter for other orthopedic aftercare] 08-04-2023 Episodic Other aftercare (20 sources) Encounter for other orthopedic aftercare; Translations: [Unspecified orthopedic aftercare] 07-05-2023 Episodic Other bone disease and musculoskeletal deformities (20 sources) Segmental and somatic dysfunction; Translations: [Segmental and somatic dysfunction of cervical region] 08-28-2018 Episodic Other connective tissue disease (9 sources) History of total knee arthroplasty; Translations: [Presence of unspecified artificial knee joint] Onset: 4 Chronic Other connective tissue disease (15 sources) History of prosthetic unicompartmental arthroplasty of left knee; Translations: [Presence of left artificial knee joint] 05-18-2023 Chronic Other connective tissue disease (2 sources) Presence of left artificial knee joint; Translations: [Knee joint replacement] 05-18-2023 Chronic Other connective tissue disease (9 sources) Presence of unspecified artificial knee joint; Translations: [Knee joint replacement] 05-31-2023 Chronic Other connective tissue disease (17 sources) History of lumbar fusion; Translations: [Arthrodesis status] 10-14-2022 Episodic Other connective tissue disease (16 sources) Trochanteric bursitis; Translations: [Trochanteric bursitis, left hip] 04-19-2023 Episodic Other connective tissue disease (13 sources) Iliotibial band friction syndrome; Translations: [Iliotibial band syndrome, left leg] 08-04-2023 Episodic Other connective tissue disease (20 sources) Iliotibial band syndrome, left leg; Translations: [Other disorders of muscle, ligament, and fascia] 08-04-2023 Episodic Other disorders of stomach and duodenum (9 sources) Stricture of duodenum; Translations: [Obstruction of duodenum] Onset: 6 03-28-2016 Chronic Other disorders of stomach and duodenum (7 sources) Stenosis of duodenum; Translations: [Obstruction of duodenum] 09-28-2023 Chronic Other inflammatory condition of skin (20 sources) Psoriatic arthritis; Translations: [Arthropathic psoriasis, unspecified] Onset: 9 08-15-2018 Chronic Other inflammatory condition of skin (1 source) Arthropathic psoriasis, unspecified; Translations: [Psoriatic arthropathy] 11-10-2023 Chronic Other nervous system disorders (15 sources) Acute postoperative pain; Translations: [Other acute postprocedural pain] 06-21-2023 Episodic Other non-traumatic joint disorders (3 sources) Pain in right knee; Translations: [Pain in joint, lower leg] Onset: 2 Episodic Other non-traumatic joint disorders (16 sources) Pain in left knee; Translations: [Left knee pain] Onset: 2 05-31-2023 Episodic Other non-traumatic joint disorders (16 sources) Hip pain; Translations: [Pain in left hip] 04-19-2023 Episodic Regional enteritis and ulcerative colitis (20 sources) Colitis; Translations: [Crohn's disease of large intestine without complications] Onset: 5 09-28-2023 Chronic Residual codes; unclassified (20 sources) Other specified health status; Translations: [Failure of outpatient treatment] 09-24-2023 Episodic Screening and history of mental health and substance abuse codes (1 source) Ex-smoker; Translations: [Personal history of nicotine dependence] Onset: 2 05-30-2022 Episodic Spondylosis; intervertebral disc disorders; other back problems (20 sources) Degeneration of cervical intervertebral disc; Translations: [Other cervical disc degeneration, unspecified cervical region] 06-30-2022 Chronic Sprains and strains (20 sources) Sprain of distal tibiofibular ligament; Translations: [Sprain of tibiofibular ligament of right ankle, initial encounter] 06-22-2019 Episodic Substance-related disorders (1 source) Nicotine dependence, unspecified, uncomplicated; Translations: [Nicotine dependence, unspecified, uncomplicated] Onset: Chronic Superficial injury; contusion (20 sources) Contusion of hip; Translations: [Contusion of left hip, initial encounter] 04-22-2023 Episodic Past or Other Problems Problem Classification Problem Date Documented Da te Episodic/Chronic Abdominal pain (9 sources) Lower abdominal pain; Translations: [Lower abdominal pain, unspecified] Onset: 04-26-2013 04-26-2013 Episodic Complication of device; implant or graft (9 sources) Disorder of prosthetic joint; Translations: [Other specified complication of internal orthopedic prosthetic devices, implants and grafts, initial encounter] Onset: 10-25-2013 10-25-2013 Episodic Deficiency and other anemia (1 source) Anemia, unspecified; Translations: [Anemia, unspecified] Onset: 06-05-2024 Episodic Other connective tissue disease (2 sources) Pain in right hand; Translations: [Pain in left hand] Onset: 08-07-2017 Episodic Other connective tissue disease (6 sources) Arthrodesis status; Translations: [Arthrodesis status] 01-12-2023 Episodic Other connective tissue disease (5 sources) Trochanteric bursitis, left hip; Translations: [Enthesopathy of hip region] 04-19-2023 Episodic Other gastrointestinal disorders (9 sources) History of diverticulitis; Translations: [Personal history of other diseases of the digestive system] Onset: 08-15-2018 08-15-2018 Episodic Other injuries and conditions due to external causes (1 source) Unspecified injury of right wrist, hand and finger(s), subsequent encounter; Translations: [Unspecified injury of right wrist, hand and finger(s), subsequent encounter] Onset: 08-07-2017 Episodic Other lower respiratory disease (1 source) Wheezing; Translations: [Wheezing] Onset: 06-18-2024 Episodic Other non-traumatic joint disorders (2 sources) Effusion, unspecified joint; Translations: [Pain in right wrist] Onset: 08-07-2017 Episodic Other non-traumatic joint disorders (1 source) Pain in right hip; Translations: [Pain in right hip] Onset: 05-13-2024 Episodic Other screening for suspected conditions (not mental disorders or infectious disease) (2 sources) Other abnormal and inconclusive findings on diagnostic imaging of breast; Translations: [Encounter for screening mammogram for malignant neoplasm of breast] Onset: 06-12-2024 Episodic Other skin disorders (1 source) Disorder of the skin and subcutaneous tissue, unspecified; Translations: [Disorder of the skin and subcutaneous tissue, unspecified] Onset: 08-07-2017 Episodic Residual codes; unclassified (1 source) Chills (without fever); Translations: [Chills (without fever)] Onset: 06-18-2024 Episodic Spondylosis; intervertebral disc disorders; other back problems (2 sources) Low back pain; Translations: [Spinal stenosis, lumbosacral region] Onset: 08-07-2017 Episodic Results Test Name Value Interpretation Reference Range Facility Absolute lymphocyte countOrd ered By: Hernandez Mosley on 12-02-2024 Lymphocytes Auto (Unsp spec) [#/Vol] 2.21 10*3/uL 0.83-4.51 [facility] Absolute neutrophil countOrd ered By: Hernandez Mosley on 12-02-2024 Neutrophils (Bld) [#/Vol] 7.5 10*3/uL 2.0-7.7 [facility] Anion gap in Serum or Plasma Ordered By: Hernandez Mosley on 12-02-2024 Anion gap [Moles/Vol] 15 mmol/L 5-15 [facility] Automated lymphocyte count a s percentage of total leukocytesOrdered By: Hernandez Mosley on 12-02-2024 Lymphocytes/100 WBC Auto (Unsp spec) 20.2 % 19- [facility] BUN/creatinine ratioOrdered By: Hernandez Mosley on 12-02-2024 Urea nitrogen/Creatinine [Mass ratio] 19.5 mg/mg 10- [facility] Basophil percentageOrdered B y: Hernandez Mosley on 12-02-2024 Basophils/100 WBC (Bld) 0.5 % 0-1 [facility] Bilirubin, totalOrdered By: Hernandez Mosley on 12-02-2024 Bilirubin [Mass/Vol] 0.36 mg/dL 0.00-1.30 [facility] CBC W/Diff, Automatedon 11-21 Absolute Lymph 2.21 X10 3/uL Normal 0.83-4.51 [facility] Comment on above: Performed By: #### L 100.0100, L500.4050, L501.9520 ####[facility] [address] [place], [address] Absolute Neut 7.5 X10 3/uL Normal 2.0-7.7 [facility] Comment on above: Performed By: #### L 100.0100, L500.4050, L501.9520 ####[facility] [address] [place], [address] Basophils/100 WBC (Bld) 0.5 % Normal 0-1 [facility] Comment on above: Performed By: #### L 100.0100, L500.4050, [id number] ####[facility] [address] [place], [address] Eosinophils/100 WBC (Bld) 0.7 % Normal 0-5 [facility] Comment on above: Performed By: #### L 100.0100, L500.4050, [id number] ####[facility] [address] [place], [address] Erythrocyte distribution width (RBC) [Ratio] 13.2 % Normal 11.6-14.6 [facility] Comment on above: Performed By: #### L 100.0100, L500.4050, [id number] ####[facility] [address] [place], [address] Hematocrit (Bld) [Volume fraction] 41.5 % Normal 37-47 [facility] Comment on above: Performed By: #### L 100.0100, L500.4050, [id number] ####[facility] [address] [place], [address] Hemoglobin (Bld) [Mass/Vol] 13.7 g/dL Normal 12.0-15.0 [facility] Comment on above: Performed By: #### L 100.0100, L500.4050, L501.9520 ####[facility] [address] [place], [address] IG% 0.500 Normal 0.0-0.9 [facility] Comment on above: Result Comment: IG% - Immature Granulocytes (promyelocytes, myelocytes and metamyelocytes) > 1% indicates that a LEFT SHIFT is Present. Performed By: #### L 100.0100, L500.4050, L501.9520 ####[facility] [address] [place], [address] Lymphocytes/100 WBC (Bld) 20.2 % Normal 19-41 [facility] Comment on above: Performed By: #### L 100.0100, L500.4050, [id number] ####[facility] [address] [place], [address] MCH (RBC) [Entitic mass] 30.8 pg Normal 27.0-32.0 [facility] Comment on above: Performed By: #### L 100.0100, L500.4050, [id number] ####[facility] [address] [place], [address] MCHC (RBC) [Mass/Vol] 33.0 g/dL Normal 32-36 [facility] Comment on above: Performed By: #### L 100.0100, L500.4050, [id number] ####[facility] [address] [place], [address] MCV (RBC) [Entitic vol] 93.3 fL Normal 81-99 [facility] Comment on above: Performed By: #### L 100.0100, L500.4050, [id number] ####[facility] [address] [place], [address] Monocytes/100 WBC (Bld) 9.6 % Normal 0-10 [facility] Comment on above: Performed By: #### L 100.0100, L500.4050, [id number] ####[facility] [address] [place], [address] Neutrophils/100 WBC (Bld) 68.5 % Normal 47-70 [facility] Comment on above: Performed By: #### L 100.0100, L500.4050, [id number] ####[facility] [address] [place], [address] Nucleated RBC (Bld) [#/Vol] 0 10*3/uL Normal 0-5 [facility] Comment on above: Performed By: #### L 100.0100, L500.4050, [id number] ####[facility] [address] [place], [address] Platelet mean volume (Bld) [Entitic vol] 9.7 fL Normal 6.2-12.0 [facility] Comment on above: Performed By: #### L 100.0100, L500.4050, [id number] ####[facility] [address] [place], [address] Platelets (Bld) [#/Vol] 328 10*3/uL Normal 150-450 [facility] Comment on above: Performed By: #### L 100.0100, L500.4050, [id number] ####[facility] [address] [place], [address] RBC (Bld) [#/Vol] 4.45 10*6/uL Normal 4.2-5.4 [facility] Comment on above: Performed By: #### L 100.0100, L500.4050, [id number] ####[facility] [address] [place], [address] RDW SD 45.4 fl High 35.1-43.9 [facility] Comment on above: Performed By: #### L 100.0100, L500.4050, [id number] ####[facility] [address] [place], [address] WBC (Bld) [#/Vol] 11.0 10*3/uL Normal 4.4-11.0 [facility] Comment on above: Performed By: #### L 100.0100, L500.4050, [id number] ####[facility] [address] [place], [address] Carbon dioxide, total [Moles /volume] in Central venous bloodOrdered By: Hernandez Mosley on 12-02-2024 CO2 [Moles/Vol] 23.3 mmol/L 21.0-32.0 [facility] Chloride assayOrdered By: Jer Mosley on 12-02-2024 Chloride [Moles/Vol] 99 mmol/L 98-108 [facility] Comprehensive Metabolic Prof ilon 12-02-2024 Albumin [Mass/Vol] 4.5 g/dL Normal 3.4-4.8 [facility] Comment on above: Performed By: #### L 100.0100, L500.4050, [id number] ####[facility] [address] [place], [address] Albumin/Globulin [Mass ratio] 1.6 {ratio} Normal 0.9-2.4 [facility] Comment on above: Performed By: #### L 100.0100, L500.4050, [id number] ####[facility] [address] [place], [address] ALK PHOS 82 U/L Normal 35-104 [facility] Comment on above: Performed By: #### L 100.0100, L500.4050, [id number] ####[facility] [address] [place], [address] ALT [Catalytic activity/Vol] 24 U/L Normal <=34 [facility] Comment on above: Performed By: #### L 100.0100, L500.4050, [id number] ####[facility] [address] [place], [address] AST [Catalytic activity/Vol] 22 U/L Normal <=31 [facility] Comment on above: Performed By: #### L 100.0100, L500.4050, [id number] ####[facility] [address] [place], [address] Bilirubin [Mass/Vol] 0.36 mg/dL Normal 0.00-1.30 [facility] Comment on above: Performed By: #### L 100.0100, L500.4050, [id number] ####[facility] [address] [place], [address] BUN/CRE 19.5 RATIO Normal 10-20 [facility] Comment on above: Performed By: #### L 100.0100, L500.4050, [id number] ####[facility] [address] [place], [address] Calcium [Mass/Vol] 9.5 mg/dL Normal 7.6-11.0 [facility] Comment on above: Performed By: #### L 100.0100, L500.4050, [id number] ####[facility] [address] [place], [address] Chloride [Moles/Vol] 99 mmol/L Normal 98-108 [facility] Comment on above: Performed By: #### L 100.0100, L500.4050, [id number] ####[facility] [address] [place], [address] CO2 [Moles/Vol] 23.3 mmol/L Normal 21.0-32.0 [facility] Comment on above: Performed By: #### L 100.0100, L500.4050, [id number] ####[facility] [address] [place], [address] Creatinine [Mass/Vol] 0.82 mg/dL Normal 0.70-1.20 [facility] Comment on above: Performed By: #### L 100.0100, L500.4050, [id number] ####[facility] [address] [place], [address] GAP 15 Normal 5-15 [facility] Comment on above: Performed By: #### L 100.0100, L500.4050, [id number] ####[facility] [address] [place], [address] GFR/1.73 sq M.predicted among non-blacks MDRD (S/P/Bld) [Vol rate/Area] 81 mL/min/{1.73_m2} Normal >60 [facility] Comment on above: Result Comment: mL/m in/1.73m2 CKD-EPI Creatinine Equation (2020) Performed By: #### L 100.0100, L500.4050, [id number] ####[facility] [address] [place], [address] Globulin (S) [Mass/Vol] 2.8 g/dL Normal 2.2-4.2 [facility] Comment on above: Performed By: #### L 100.0100, L500.4050, [id number] ####[facility] [address] [place], [address] Glucose [Mass/Vol] 81 mg/dL Normal 70-99 [facility] Comment on above: Performed By: #### L 100.0100, L500.4050, [id number] ####[facility] [address] [place], [address] Potassium [Moles/Vol] 3.7 mmol/L Normal 3.3-5.1 [facility] Comment on above: Performed By: #### L 100.0100, L500.4050, [id number] ####[facility] [address] [place], [address] Sodium [Moles/Vol] 137 mmol/L Normal 133-145 [facility] Comment on above: Performed By: #### L 100.0100, L500.4050, [id number] ####[facility] [address] [place], [address] T PROT 7.3 g/dL Normal 5.9-8.4 [facility] Comment on above: Performed By: #### L 100.0100, L500.4050, [id number] ####[facility] [address] [place], [address] Urea nitrogen [Mass/Vol] 16 mg/dL Normal 4-19 [facility] Comment on above: Performed By: #### L 100.0100, L500.4050, [id number] ####[facility] [address] [place], [address] Eosinophil percentageOrdered By: [facility] Dimitri on 12-02-2024 Eosinophils/100 WBC (Bld) 0.7 % 0-5 [facility] Erythrocyte distribution wid th ratioOrdered By: [facility] Erythrocyte distribution width (RBC) [Ratio] 13.2 % 11.6-14.6 [facility] Erythrocyte distribution wid th standard deviationOrdered By: [facility] on 12-02-2024 Erythrocyte distribution width (RBC) [Ratio] 45.4 fl High 35.1-43.9 [facility] Glomerular filtration rate ( GFR) estimation/1.73 sq m using serum, plasma, or whole bOrdered By: [facility] on 12-02-20[facility] GFR/1.73 sq M.predicted among non-blacks MDRD (S/P/Bld) [Vol rate/Area] 81 mL/min/{1.73_m2} >60 [facility] Comment on above: mL/min/1.73m2 CKD-EP I Creatinine Equation (2020) Hematocrit Auto (Bld) [Volum e fraction]Ordered [facility]: [facility] 12-[facility]-20[facility] Hematocrit (Bld) [Volume fraction] 41.5 % 37-47 [facility] Hemoglobin measurementOrdere d By: Hernandez Dimitri 12-02-2024 Hemoglobin (Bld) [Mass/Vol] 13.7 g/dL 12.0-15.0 [facility] Immature granulocytes/100 WB C Auto (Bld)Ordered By: Hernandez Dimitri 12-02-2024 Immature granulocytes/100 WBC (Bld) 0.500 % 0.0-0.9 [facility] Comment on above: IG% - Immature Granu locytes (promyelocytes, myelocytes and metamyelocytes) > 1% indicates that a LEFT SHIFT is Present. Laboratory - Chemistry and C hemistry - challengeOrdered By: Hernandez Dimitri 12-02-2024 AST [Catalytic activity/Vol] 22 U/L <32 [facility] MCV (mean corpuscular volume ) determinationOrdered By: Hernandez Mosley on 12-02-2024 MCV (RBC) [Entitic vol] 93.3 fL 81-99 [facility] Mean corpuscular hemoglobin (MCH) determinationOrdered By: Hernandez Mosley on 12-02-2024 MCH (RBC) [Entitic mass] 30.8 pg 27.0-32.0 [facility] Mean corpuscular hemoglobin concentration (MCHC) determinationOrdered By: Hernandez Mosley on 12-02-2024 MCHC (RBC) [Mass/Vol] 33.0 g/dL 32-36 [facility] Mean platelet volume determi nationOrdered By: Hernandez Mosley on 12-02-2024 Platelet mean volume (Bld) [Entitic vol] 9.7 fL 6.2-12.0 [facility] Monocyte percentageOrdered B y: Hernandez Mosley on 12-02-2024 Monocytes/100 WBC (Bld) 9.6 % 0-10 [facility] Neutrophil percentageOrdered By: Hernandez Mosley on 12-02-2024 Neutrophils/100 WBC (Bld) 68.5 % 47-70 [facility] Nucleated red blood cell per centageOrdered By: Hernandez Mosley on 12-02-2024 Nucleated RBC/100 WBC (Bld) [Ratio] 0 % 0-5 [facility] Platelet countOrdered By: Jer Mosley on 12-02-2024 Platelets (Bld) [#/Vol] 328 10*3/uL 150-450 [facility] Potassium measurement (mass/ volume)Ordered By: Hernandez Mosley on 12-02-2024 Potassium (Unsp spec) [Mass/Vol] 3.7 mmol/L 3.3-5.1 [facility] RBC Auto (Bld) [#/Vol]Ordere d By: Hernandez Mosley on 12-02-2024 RBC (Bld) [#/Vol] 4.45 10*6/uL 4.2-5.4 [facility] Serum creatinine measurement (mass/volume)Ordered By: Hernandez Mosley on 12-02-2024 Creatinine [Mass/Vol] 0.82 mg/dL 0.70-1.20 [facility] Serum globulin measurementOr dered By: Hernandez Mosley 12-02-2024 Globulin (S) [Mass/Vol] 2.8 g/dL 2.2-4.2 [facility] Serum glucose measurement (m ass/volume)Ordered By: Hernandez Mosley on 12-02-2024 Glucose [Mass/Vol] 81 mg/dL 70-99 [facility] Serum or plasma alanine bergman otransferase (ALT) measurementOrdered By: Hernandez Mosley on 12-02-2024 ALT [Catalytic activity/Vol] 24 U/L <35 [facility] Serum or plasma albumin elis urement (mass/volume)Ordered By: Hernandez Mosley on 12-02-2024 Albumin [Mass/Vol] 4.5 g/dL 3.4-4.8 [facility] Serum or plasma albumin/glob ulin mass ratioOrdered By: Hernandez Mosley on 12-02-2024 Albumin/Globulin [Mass ratio] 1.6 {ratio} 0.9-2.4 [facility] Serum or plasma alkaline radha sphatase measurementOrdered By: Hernandez Mosley on 12-02-2024 ALP [Catalytic activity/Vol] 82 U/L 35-104 [facility] Serum or plasma calcium elis urement (mass/volume)Ordered By: Hernandez Mosley on 12-02-2024 Calcium [Mass/Vol] 9.5 mg/dL 7.6-11.0 [facility] Serum or plasma urea nitroge n measurement (mass/volume)Ordered By: Hernandez Mosley on 12-02-2024 Urea nitrogen [Mass/Vol] 16 mg/dL 4-19 [facility] Sodium levelOrdered By: Hernandez Mosley on 12-02-2024 Sodium [Moles/Vol] 137 mmol/L 133-145 [facility] TSH DL <= 0.005 mIU/L QnOrde red By: Hernandez Mosley on 12-02-2024 TSH Qn 2.390 uIU/mL 0.300-4.200 [facility] Thyroid Stim Hormone (TSH)on 12-02-2024 TSH 2.390 uIU/mL Normal 0.300-4.200 [facility] Comment on above: Performed By: #### L 100.0100, L500.4050, L501.9520 ####[facility] [address] [place], [address] Total proteinOrdered By: Hernandez Mosley on 12-02-2024 Protein [Mass/Vol] 7.3 g/dL 5.9-8.4 [facility] White blood cell (WBC) count Ordered By: Hernandez Dhillonok on 12-02-2024 WBC (Bld) [#/Vol] 11.0 10*3/uL 4.4-11.0 [facility] Misc.on 11-07-2024 [facility] Misc. COMMENT Normal . [facility] Comment on above: Order Comment: [id number] 4USTEKUNUMAB LEVELS RED FRZ Result Comment: Test Ordered: [id number] Ustekinumab Drug + Antibody Ustekinumab 4.2 ug/mL ES Reference Range: . Quantitation Limit: <0.1 ug/mL Results of 0.1 ug/mL or higher indicate detection of ustekinumab. COMMENTS: - Induction levels in Crohn's Disease: - Patients who received IV 130 mg or 6 mg/kg had median trough concentrations of 2.1 ug/mL and 6.4 ug/mL, respectively, at week 8 in UNITI trials.(1) - Maintenance levels: - Of UNITI patients with trough levels greater than 1.1 ug/mL, about 80% achieved clinical remission (HBI < 5) and about 50% attained CRP normalization.(2) - Higher maintenance concentrations, greater than 4.5 ug/mL (achieved with q8wk or q4wk dosing after SQ induction), may be necessary for endoscopic response (SES-CD score reduction >=50%).(3) - Trough levels predictive of mucosal healing and fistula healing have yet to be determined. - In plaque psoriasis, median trough ustekinumab concentrations were 0.4 ug/mL at weeks 14 and 28 (ranging from undetectable to 3.6 ug/mL).(4) Although PASI50 responders had higher trough concentrations than non- responders in a study of 76 patients, a definitive therapeutic target range for psoriasis has yet to be established.(5) - As with other biologics, the optimal drug concentration depends upon patient-specific factors including co- morbidities, disease and desired therapeutic endpoint - This ustekinumab drug assay measures the free fraction of ustekinumab (antibody-unbound ustekinumab) when serum anti-ustekinumab antibodies are present. Anti-Ustekinumab Antibody <40 ng/mL ES Reference Range: . Quantitation Limit: < 40 ng/mL Results of 40 ng/mL or higher indicate detection of anti- ustekinumab antibodies. COMMENTS: - This anti-ustekinumab antibody assay is drug-tolerant, i.e. the detection of anti-ustekinumab antibodies is not impeded by the presence of ustekinumab in serum. - All positive anti-ustekinumab antibody results are verified by a confirmatory test. - The concomitant free ustekinumab drug concentration (reported above) is the pharmacodynamically active drug when anti-ustekinumab antibodies are present. - Serial measurements over time may be helpful to assess the impact of immunogenicity on the free drug level. - In the IM-UNITI trial, the incidence of anti-ustekinumab antibodies in Crohn's Disease at 1 year was 2.3%.(1) - In psoriasis, anti-ustekinumab antibodies occurred in 4-6% of patients.(6) References: 1. Jessenia SHANE, et al. Gastroenterology 2016;150(4):S408. 2. Jessenia Farmer et al. P007 Exposure-Response to SC Ustekinumab in Moderate - Severe Crohn's Disease: Results from the IM-UNITI Maintenance Study. Advances in AIBD. April 2017. 3. Silver R, et al. Clin Gastroenterol Hepatol 2017;15: 4096-4185. 4. Loreto SP, et al. Br J Dermatol;2015:173;855-857. 5. Rashaun H, et al. PLOS ONE DOI;10:1371/journal.pone.4344273. 6. Yue L, et al. Br J Dermatol 2014;170:261-273. These tests were developed and their performance characteristics determined by [employer]. They have not been cleared or approved by the Food and Drug Administration. However, both drug and anti-drug antibody assays have been developed and validated in accordance with FDA Guidance for Industry documents: Bioanalytical Method Validation (2013) and Assay Development and Validation for Immunogenicity Testing of Therapeutic Protein Products (2016). Performed at: [facility] [address] [place], [place] [id number] Pelletizer Operator: Gustavo Garcia MD, Phone: [phone] Performed at: [facility] [id number] Pelletizer Operator: Bhaskar Mane PhD, Phone: [phone] Performed By: #### L 500.4050, L3410.9998, L100.0100, L101.9900, L501.6710 ####[facility] [address] [place], [place], [address] Absolute lymphocyte countOrd ered By: Stanley Godwin on 10-28-2024 Lymphocytes Auto (Unsp spec) [#/Vol] 1.87 10*3/uL 0.83-4.51 [facility] Absolute neutrophil countOrd ered By: Stanleycortney Godwin on 10-28-2024 Neutrophils (Bld) [#/Vol] 5.2 10*3/uL 2.0-7.7 [facility] Anion gap in Serum or Plasma Ordered By: Stanley Godwin on 10-28-2024 Anion gap [Moles/Vol] 13 mmol/L 5-15 [facility] Automated lymphocyte count a s percentage of total leukocytesOrdered By: Stanleyelias Godwin on 10-28-2024 Lymphocytes/100 WBC Auto (Unsp spec) 23.0 % 19-41 [facility] BUN/creatinine ratioOrdered By: Stanleycortney Godwin on 10-28-2024 Urea nitrogen/Creatinine [Mass ratio] 20.4 mg/mg High 10-20 [facility] Basophil percentageOrdered B y: Stanley Godwin on 10-28-2024 Basophils/100 WBC (Bld) 1.0 % 0-1 [facility] Bilirubin, totalOrdered By: Stanley Godwin on 10-28-2024 Bilirubin [Mass/Vol] 0.43 mg/dL 0.00-1.30 [facility] CBC W/Diff, Automatedon 04 Absolute Lymph 1.87 X10 3/uL Normal 0.83-4.51 [facility] Comment on above: Performed By: #### L 500.4050, L3410.9998, L100.0100, L101.9900, L501.6710 ####[facility] [address] [place], [address] Absolute Neut 5.2 X10 3/uL Normal 2.0-7.7 [facility] Comment on above: Performed By: #### L 500.4050, L3410.9998, L100.0100, L101.9900, L501.6710 ####[facility] [address] [place], [address] Basophils/100 WBC (Bld) 1.0 % Normal 0-1 [facility] Comment on above: Performed By: #### L 500.4050, L3410.9998, L100.0100, L101.9900, L501.6710 ####[facility] [address] [place], [address] Eosinophils/100 WBC (Bld) 1.0 % Normal 0-5 [facility] Comment on above: Performed By: #### L 500.4050, L3410.9998, L100.0100, L101.9900, L501.6710 ####[facility] [address] [place], [address] Erythrocyte distribution width (RBC) [Ratio] 12.7 % Normal 11.6-14.6 [facility] Comment on above: Performed By: #### L 500.4050, L3410.9998, L100.0100, L101.9900, L501.6710 ####[facility] [address] [place], [address] Hematocrit (Bld) [Volume fraction] 41.7 % Normal 37-47 [facility] Comment on above: Performed By: #### L 500.4050, L3410.9998, L100.0100, L101.9900, L501.6710 ####[facility] [address] [place], [address] Hemoglobin (Bld) [Mass/Vol] 13.9 g/dL Normal 12.0-15.0 [facility] Comment on above: Performed By: #### L 500.4050, L3410.9998, L100.0100, L101.9900, L501.6710 ####[facility] [address] [place], [address] IG% 0.400 Normal 0.0-0.9 [facility] Comment on above: Result Comment: IG% - Immature Granulocytes (promyelocytes, myelocytes and metamyelocytes) > 1% indicates that a LEFT SHIFT is Present. Performed By: #### L 500.4050, L3410.9998, L100.0100, L101.9900, L501.6710 ####[facility] [address] [facility] [place], [address] Lymphocytes/100 WBC (Bld) 23.0 % Normal 19-41 [facility] Comment on above: Performed By: #### L 500.4050, L3410.9998, L100.0100, L101.9900, L501.6710 ####[facility] [address] [facility] [place], [address] MCH (RBC) [Entitic mass] 30.8 pg Normal 27.0-32.0 [facility] Comment on above: Performed By: #### L 500.4050, L3410.9998, L100.0100, L101.9900, L501.6710 ####[facility] [address] [place], [address] MCHC (RBC) [Mass/Vol] 33.3 g/dL Normal 32-36 [facility] Comment on above: Performed By: #### L 500.4050, L3410.9998, L100.0100, L101.9900, L501.6710 ####[facility] [address] [place], [address] MCV (RBC) [Entitic vol] 92.3 fL Normal 81-99 [facility] Comment on above: Performed By: #### L 500.4050, L3410.9998, L100.0100, L101.9900, L501.6710 ####[facility] [address] [place], [address] Monocytes/100 WBC (Bld) 10.1 % High 0-10 [facility] Comment on above: Performed By: #### L 500.4050, L3410.9998, L100.0100, L101.9900, L501.6710 ####[facility] [address] [place], [address] Neutrophils/100 WBC (Bld) 64.5 % Normal 47-70 [facility] Comment on above: Performed By: #### L 500.4050, L3410.9998, L100.0100, L101.9900, L501.6710 ####[facility] [address] [place], [address] Nucleated RBC (Bld) [#/Vol] 0 10*3/uL Normal 0-5 [facility] Comment on above: Performed By: #### L 500.4050, L3410.9998, L100.0100, L101.9900, L501.6710 ####[facility] [address] [place], [address] Platelet mean volume (Bld) [Entitic vol] 10.1 fL Normal 6.2-12.0 [facility] Comment on above: Performed By: #### L 500.4050, L3410.9998, L100.0100, L101.9900, L501.6710 ####[facility] [address] [place], [address] Platelets (Bld) [#/Vol] 319 10*3/uL Normal 150-450 [facility] Comment on above: Performed By: #### L 500.4050, L3410.9998, L100.0100, L101.9900, L501.6710 ####[facility] [address] [place], [address] RBC (Bld) [#/Vol] 4.52 10*6/uL Normal 4.2-5.4 [facility] Comment on above: Performed By: #### L 500.4050, L3410.9998, L100.0100, L101.9900, L501.6710 ####[facility] [address] [place], [address] RDW SD 43.3 fl Normal 35.1-43.9 [facility] Comment on above: Performed By: #### L 500.4050, L3410.9998, L100.0100, L101.9900, L501.6710 ####[facility] [address] [place], [address] WBC (Bld) [#/Vol] 8.1 10*3/uL Normal 4.4-11.0 [facility] Comment on above: Performed By: #### L 500.4050, L3410.9998, L100.0100, L101.9900, L501.6710 ####[facility] [address] [place], [address] CRPon 10-28-2024 C-REACTIVE PROT 6.21 mg/L High 0.0-3.0 [facility] Comment on above: Performed By: #### L 500.4050, L3410.9998, L100.0100, L101.9900, L501.6710 ####[facility] [address] [place], [address] CRP [Mass/Vol]Ordered By: jeri Friend on 10-28-2024 C-Reactive Protein Extended Range 6.21 mg/L High 0.0-3.0 [facility] Carbon dioxide, total [Moles /volume] in Central venous bloodOrdered By: Stanley Friend on 10-28-2024 CO2 [Moles/Vol] 25.4 mmol/L 21.0-32.0 [facility] Chloride assayOrdered By: Ra wilcox Friend on 10-28-2024 Chloride [Moles/Vol] 99 mmol/L 98-108 [facility] Comprehensive Metabolic Prof ilon 10-28-2024 Albumin [Mass/Vol] 4.3 g/dL Normal 3.4-4.8 [facility] Comment on above: Order Comment: [id number] Performed By: #### L 500.4050, L3410.9998, L100.0100, L101.9900, L501.6710 ####[facility] [address] [place], [address] Albumin/Globulin [Mass ratio] 1.5 {ratio} Normal 0.9-2.4 [facility] Comment on above: Order Comment: [id number] 4 Performed By: #### L 500.4050, L3410.9998, L100.0100, L101.9900, L501.6710 ####[facility] [address] [place], [address] ALK PHOS 93 U/L Normal 35-104 [facility] Comment on above: Order Comment: [id number] 4 Performed By: #### L 500.4050, L3410.9998, L100.0100, L101.9900, L501.6710 ####[facility] [address] [place], [address] ALT [Catalytic activity/Vol] 19 U/L Normal <=34 [facility] Comment on above: Order Comment: [id number] 4 Performed By: #### L 500.4050, L3410.9998, L100.0100, L101.9900, L501.6710 ####[facility] [address] [place], [address] AST [Catalytic activity/Vol] 18 U/L Normal <=31 [facility] Comment on above: Order Comment: [id number] 4 Performed By: #### L 500.4050, L3410.9998, L100.0100, L101.9900, L501.6710 ####[facility] [address] [place], [address] Bilirubin [Mass/Vol] 0.43 mg/dL Normal 0.00-1.30 [facility] Comment on above: Order Comment: [id number] 4 Performed By: #### L 500.4050, L3410.9998, L100.0100, L101.9900, L501.6710 ####[facility] [address] [place], [address] BUN/CRE 20.4 RATIO High 10-20 [facility] Comment on above: Order Comment: [id number] 4 Performed By: #### L 500.4050, L3410.9998, L100.0100, L101.9900, L501.6710 ####[facility] [address] [place], [address] Calcium [Mass/Vol] 9.2 mg/dL Normal 7.6-11.0 [facility] Comment on above: Order Comment: [id number] 4 Performed By: #### L 500.4050, L3410.9998, L100.0100, L101.9900, L501.6710 ####[facility] [address] [place], [address] Chloride [Moles/Vol] 99 mmol/L Normal 98-108 [facility] Comment on above: Order Comment: 82574 4 Performed By: #### L 500.4050, L3410.9998, L100.0100, L101.9900, L501.6710 ####[facility] [address] [place], [address] CO2 [Moles/Vol] 25.4 mmol/L Normal 21.0-32.0 [facility] Comment on above: Order Comment: [id number] 4 Performed By: #### L 500.4050, L3410.9998, L100.0100, L101.9900, L501.6710 ####[facility] [address] [place], [address] Creatinine [Mass/Vol] 0.72 mg/dL Normal 0.70-1.20 [facility] Comment on above: Order Comment: [id number] 4 Performed By: #### L 500.4050, L3410.9998, L100.0100, L101.9900, L501.6710 ####[facility] [address] [place], [address] GAP 13 Normal 5-15 [facility] Comment on above: Order Comment: [id number] 4 Performed By: #### L 500.4050, L3410.9998, L100.0100, L101.9900, L501.6710 ####[facility] [address] [place], [address] GFR/1.73 sq M.predicted among non-blacks MDRD (S/P/Bld) [Vol rate/Area] 94 mL/min/{1.73_m2} Normal >60 [facility] Comment on above: Order Comment: [id number] 4 Result Comment: mL/m in/1.73m2 CKD-EPI Creatinine Equation (2020) Performed By: #### L 500.4050, L3410.9998, L100.0100, L101.9900, L501.6710 ####[facility] [address] [place], [address] Globulin (S) [Mass/Vol] 2.9 g/dL Normal 2.2-4.2 [facility] Comment on above: Order Comment: [id number] 4 Performed By: #### L 500.4050, L3410.9998, L100.0100, L101.9900, L501.6710 ####[facility] [address] [place], [address] Glucose [Mass/Vol] 96 mg/dL Normal 70-99 [facility] Comment on above: Order Comment: 70557 4 Performed By: #### L 500.4050, L3410.9998, L100.0100, L101.9900, L501.6710 ####[facility] [address] [place], [address] Potassium [Moles/Vol] 3.9 mmol/L Normal 3.3-5.1 [facility] Comment on above: Order Comment: 02522 4 Performed By: #### L 500.4050, L3410.9998, L100.0100, L101.9900, L501.6710 ####[facility] [address] [place], [address] Sodium [Moles/Vol] 137 mmol/L Normal 133-145 [facility] Comment on above: Order Comment: [id number] 4 Performed By: #### L 500.4050, L3410.9998, L100.0100, L101.9900, L501.6710 ####[facility] [address] [place], [address] T PROT 7.2 g/dL Normal 5.9-8.4 [facility] Comment on above: Order Comment: 89513 4 Performed By: #### L 500.4050, L3410.9998, L100.0100, L101.9900, L501.6710 ####[facility] [address] [place], [address] Urea nitrogen [Mass/Vol] 15 mg/dL Normal 4-19 [facility] Comment on above: Order Comment: [id number] 4 Performed By: #### L 500.4050, L3410.9998, L100.0100, L101.9900, L501.6710 ####[facility] [address] [place], [place], [address] Eosinophil percentageOrdered By: Stanley Godwin on 10-28-2024 Eosinophils/100 WBC (Bld) 1.0 % 0-5 [facility] Erythrocyte Sed Rateon 10-28 SED RATE 2 mm/hr Normal 0-30 [facility] Comment on above: Performed By: #### L 500.4050, L3410.9998, L100.0100, L101.9900, L501.6710 ####[facility] [address] [place], [place], [id number] Erythrocyte distribution wid th (RBC) [Ratio]Ordered By: Stanley Godwin on 10-28-2024 Erythrocyte distribution width (RBC) [Entitic vol] 43.3 fL 35.1-43.9 [facility] Erythrocyte distribution wid th ratioOrdered By: Stanley Godwin on 10-28-2024 Erythrocyte distribution width (RBC) [Ratio] 12.7 % 11.6-14.6 [facility] Erythrocyte distribution wid th standard deviationOrdered By: Stanley Godwin on 10-28-2024 Erythrocyte distribution width (RBC) [Ratio] 43.3 fl 35.1-43.9 [facility] Erythrocyte sedimentation ra teOrdered By: Stanley Godwin on 10-28-2024 ESR (Bld) [Velocity] 2 mm/h 0-30 [facility] GFR/1.73 sq M.predicted dayday g non-blacks MDRD (S/P/Bld) [Vol rate/Area]Ordered By: Stanley Godwin on 10-28-2024 Estimated GFR (MDRD) Non-Af Amer 94 >60 [facility] Comment on above: mL/min/1.73m2 CKD-EP I Creatinine Equation (2020) Gastroenterology Visit Repor ton 10-28-2024 Gastroenterology Visit Report [facility] [address] [place] [address] OFFICE VISIT Date of Service: 10/28/24 MR#: [id number] Acct: [id number] Name: JUDY REAGAN Rep #: [id number] : 1960 Provider: Stanley Godwin DO Age/Sex: 64/F [place] [facility] Status: Signed Intake Vital Signs 10/07/24 11:21 Height 5 ft 4 in Intake Visit Reasons: 3 M FU Allergies adhesive tape Allergy (Severe, Verified 10/07/24 11:20) blistering bee venom protein (honey bee) Allergy (Verified 10/07/24 11:20) Swelling Medications ???Medication ???Instructions ???Recorded ???Confirmed ???Type venlafaxine 37.5 mg tablet 75 mg PO QHS depression 03/20/16 0 10/28/24 History pantoprazole 40 mg tablet,delayed 40 mg PO DAILY GERD 08/09/2202/14 History release ramipril 10 mg capsule 10 mg PO BID HEART 08/09/22 History ropinirole 0.25 mg tablet 0.5 mg PO QHS RESTLESS LEGS 10/28/24 History furosemide 20 mg tablet 20 mg PO DAILY 01/12/23 10/28/24 H istory acetaminophen 500 mg tablet 1,000 mg (2 x 500 mg) PO Q6H PRN 1 08/21/22 10/28/24 Rx #100 tabs acidophilus 25 million 2 tab PO BID #0 tabs 09/26/2302/14 Rx cell-pectin, citrus 100 mg tablet tramadol 50 mg tablet 50 - 100 mg (1 - 2 x 50 mg) PO Q8H 09/26/23 10/28/24 Rx PRN pain #10 tabs amlodipine 5 mg tablet (Norvasc) 5 mg PO QHS 11/09/23 10/28/24 Hist ory ustekinumab 90 mg/mL subcutaneous 90 mg subcut Q8W #1 mL 03/11/24 0 10/28/24 Rx syringe (Stelara) duloxetine 30 mg capsule,delayed 30 mg PO DAILY #30 caps 06/25/24 0 4/07/25 Rx release hyoscyamine sulfate 0.125 mg tablet 0.125 mg PO BID-QID PRN dyspeps ia 08/13/24 10/28/24 Rx #30 tabs dicyclomine 20 mg tablet 20 mg PO TID PRN abdominal pain 10/28/24 [facility] History of Crohn's disease Chronic pain GERD (gastroesophageal reflux disease) History of steroid therapy Wears glasses Post-menopausal Anxiety Alcohol use Hx of psoriatic arthritis Restless legs Back pain History of diverticulitis Hx of peptic ulcer Former smoker History of pain when walking Hypertension Physical exam, pre-employment Osteoarthritis Surgical History Hx of colonoscopy History of lumbar spinal fusion Status post left partial knee replacement History of total right knee replacement History of appendectomy History of hysterectomy History of section Family History Other Breast cancer CAD (coronary artery disease) Heart disease Hypertension Social History household members: spouse Smoking Status: Former smoker alcohol intake: current alcohol intake frequency: holidays/special occasions only substance use type: does not use what type of physical activity do you participate in: walking frequency: 1-2 times per week HPI HPI Details: JUDY REAGAN, is a 64 F who presents to the office today for follow up. [facility] hospitalization 03.20.16-03.23.16 for abdominal pain. EGD 03.20.16???scope could not be advanced through duodenal bulb due to concentric narrowing less likely mass; no obvious ulcerations; duodenitis with duodenal ulcers; gastritis; healing prepyloric ulcer. H.Pylori neg Prior workup: ?CT abd/pel 09.21.23???colonic diverticulosis with diverticulitis *[facility] hospitalization 3.10.14-3 for management of abdominal pain with recent diverticulitis diagnosis with failed outpatient ATB therapy. Chronic conditions HTN, tobacco use, psoriatic arthritis, pseudogout, partial left knee replacement.??? Treated with IV Rocephin and flagyl. ?CT abd/pel 09.24.23???diverticulosis with sequela of previous diverticulitis of sigmoid colon ?EGD /colonoscopy 09.25.23???EGD severe duodenal stenosis, balloon dilator 12mm, post dilation visualization noted moderate mucosal disruption. ? Colonoscopy diverticulosis; splenic flexure inflammation with friability and granularity OV 4.24 Pt states she has been feeling well since hosp. visit. Has not had any abdominal pain. Continues Mesalamine. BM have been better. Has not had any diarrhea. Is going to start taking daily fiber supplement. Does have lower abdominal cramping that is relieved by BM. OV 5..24 pt reports that she had what she thinks was a flare up last week and reported nausea, diarrhea, abdominal pain, cramping, bloating, HB. She started budesonide earlier this week and states that she is no longer having any GI s (more content not included)... Normal [facility] Glomerular filtration rate ( GFR) estimation/1.73 sq m using serum, plasma, or whole bOrdered By: Stanley Godwin on 10-28-2024 GFR/1.73 sq M.predicted among non-blacks MDRD (S/P/Bld) [Vol rate/Area] 94 mL/min/{1.73_m2} >60 [facility] Comment on above: mL/min/1.73m2 CKD-EP I Creatinine Equation (2020) Hematocrit Auto (Bld) [Volum e fraction]Ordered By: Stanley Godwin on 10-28-2024 Hematocrit (Bld) [Volume fraction] 41.7 % 37-47 [facility] Hemoglobin measurementOrdere d By: Stanley Godwin on 10-28-2024 Hemoglobin (Bld) [Mass/Vol] 13.9 g/dL 12.0-15.0 [facility] Immature granulocytes/100 WB C Auto (Bld)Ordered By: Stanley Godwin on 10-28-2024 Immature granulocytes/100 WBC (Bld) 0.400 % 0.0-0.9 [facility] Comment on above: IG% - Immature Granu locytes (promyelocytes, myelocytes and metamyelocytes) > 1% indicates that a LEFT SHIFT is Present. Laboratory - Chemistry and C hemistry - challengeOrdered By: Stanley Godwin on 10-28-2024 AST [Catalytic activity/Vol] 18 U/L <32 [facility] Lymphocytes Auto (Unsp spec) [#/Vol]Ordered By: Stanley Godwin on 10-28-2024 Lymphocytes (Bld) [#/Vol] 1.87 10*3/uL 0.83-4.51 [facility] Lymphocytes/100 WBC Auto (Un sp spec)Ordered By: Stanley Godwin on 10-28-2024 Lymphocytes/100 WBC (Bld) 23.0 % 19-41 [facility] MCV (mean corpuscular volume ) determinationOrdered By: Stanley Godwin on 10-28-2024 MCV (RBC) [Entitic vol] 92.3 fL 81-99 [facility] Mean corpuscular hemoglobin (MCH) determinationOrdered By: Stanley Godwin on 10-28-2024 MCH (RBC) [Entitic mass] 30.8 pg 27.0-32.0 [facility] Mean corpuscular hemoglobin concentration (MCHC) determinationOrdered By: Stanley Godwin on 10-28-2024 MCHC (RBC) [Mass/Vol] 33.3 g/dL 32-36 [facility] Mean platelet volume determi nationOrdered By: Stanley Godwin on 10-28-2024 Platelet mean volume (Bld) [Entitic vol] 10.1 fL 6.2-12.0 [facility] Monocyte percentageOrdered B y: Stanley Godwin on 10-28-2024 Monocytes/100 WBC (Bld) 10.1 % High 0-10 [facility] Neutrophil percentageOrdered By: Stanley Godwin on 10-28-2024 Neutrophils/100 WBC (Bld) 64.5 % 47-70 [facility] No Panel InformationOrdered By: Stanley Godwin on 10-28-2024 Miscellaneous Test COMMENT . [facility] Comment on above: Test Ordered: [id number] Ustekinumab Drug + AntibodyUstekinumab 4.2 ug/mL ES Reference Range: .Quantitation Limit: <0.1 ug/mLResults of 0.1 ug/mL or higher indicate detection ofustekinumab.COMMENTS: - Induction levels in Crohn's Disease: - Patients who received IV 130 mg or 6 mg/kg had median trough concentrations of 2.1 ug/mL and 6.4 ug/mL, respectively, at week 8 in UNITI trials.(1)- Maintenance levels: - Of UNITI patients with trough levels greater than 1.1 ug/mL, about 80% achieved clinical remission (HBI < 5) and about 50% attained CRP normalization.(2) - Higher maintenance concentrations, greater than 4.5 ug/mL (achieved with q8wk or q4wk dosing after SQ induction), may be necessary for endoscopic response (SES-CD score reduction >=50%).(3) - Trough levels predictive of mucosal healing and fistula healing have yet to be determined.- In plaque psoriasis, median trough ustekinumab concentrations were 0.4 ug/mL at weeks 14 and 28 (ranging from undetectable to 3.6 ug/mL).(4) Although PASI50 responders had higher trough concentrations than non- responders in a study of 76 patients, a definitive therapeutic target range for psoriasis has yet to be established.(5)- As with other biologics, the optimal drug concentration depends upon patient-specific factors including co- morbidities, disease and desired therapeutic endpoint- This ustekinumab drug assay measures the free fraction of ustekinumab (antibody-unbound ustekinumab) when serum anti-ustekinumab antibodies are present.Anti-Ustekinumab Antibody <40 ng/mL ES Reference Range: .Quantitation Limit: < 40 ng/mLResults of 40 ng/mL or higher indicate detection of anti-ustekinumab antibodies.COMMENTS:- This anti-ustekinumab antibody assay is drug-tolerant, i.e. the detection of anti-ustekinumab antibodies is not impeded by the presence of ustekinumab in serum.- All positive anti-ustekinumab antibody results are verified by a confirmatory test.- The concomitant free ustekinumab drug concentration (reported above) is the pharmacodynamically active drug when anti-ustekinumab antibodies are present.- Serial measurements over time may be helpful to assess the impact of immunogenicity on the free drug level.- In the IM-UNITI trial, the incidence of anti-ustekinumab antibodies in Crohn's Disease at 1 year was 2.3%.(1)- In psoriasis, anti-ustekinumab antibodies occurred in 4-6% of patients.(6)References:1. Jessenia SHANE, et al. Gastroenterology 2016;150(4):S408.2. Jessenia Farmer et al. P007 Exposure-Response to SC Ustekinumab in Moderate - Severe Crohn's Disease: Results from the IM-UNITI Maintenance Study. Advances in AIBD. April 2017.3. Clementtat R, et al. Clin Gastroenterol Hepatol 2017;15: 8904-9012.4. Loreto CONNELL, et al. Br J Dermatol;2015:173;855-857.5. Rashaun H, et al. PLOS ONE DOI;10:1371/journal.pone.0457178.6. Yue L, et al. Br J Dermatol 2014;170:261-273.These tests were developed and their performancecharacteristics determined by [employer]. They have not beencleared or approved by the Food and Drug Administration.However, both drug and anti-drug antibody assays have beendeveloped and validated in accordance with FDA Guidance forIndustry documents: Bioanalytical Method Validation (2013)and Assay Development and Validation for ImmunogenicityTesting of Therapeutic Protein Products (2016).Performed at: [employer] [address] [id number] Director: Gustavo Garcia MD, Phone: [phone] at: [facility] [place], [place] [id number] Director: Bhaskar Mane PhD, Phone: [phone] Nucleated red blood cell per centageOrdered By: Stanley Godwin on 10-28-2024 Nucleated RBC/100 WBC (Bld) [Ratio] 0 % 0-5 [facility] Platelet countOrdered By: Ra jeri Godwin on 10-28-2024 Platelets (Bld) [#/Vol] 319 10*3/uL 150-450 [facility] Potassium (Unsp spec) [Mass/ Vol]Ordered By: Stanley Godwin on 10-28-2024 Potassium [Moles/Vol] 3.9 mmol/L 3.3-5.1 [facility] Potassium measurement (mass/ volume)Ordered By: Stanley Godwin on 10-28-2024 Potassium (Unsp spec) [Mass/Vol] 3.9 mmol/L 3.3-5.1 [facility] RBC Auto (Bld) [#/Vol]Ordere d By: Stanley Godwin on 10-28-2024 RBC (Bld) [#/Vol] 4.52 10*6/uL 4.2-5.4 [facility] Serum creatinine measurement (mass/volume)Ordered By: Stanley Godwin on 10-28-2024 Creatinine [Mass/Vol] 0.72 mg/dL 0.70-1.20 [facility] Serum globulin measurementOr dered By: Stanley Godwin on 10-28-2024 Globulin (S) [Mass/Vol] 2.9 g/dL 2.2-4.2 [facility] Serum glucose measurement (m ass/volume)Ordered By: Stanley Godwin on 10-28-2024 Glucose [Mass/Vol] 96 mg/dL 70-99 [facility] Serum or plasma C reactive p rotein measurement (mass/volume)Ordered By: Stanley Godwin on 10-28-2024 CRP [Mass/Vol] 6.21 mg/L High 0.0-3.0 [facility] Serum or plasma alanine bergman otransferase (ALT) measurementOrdered By: Stanley Godwin on 10-28-2024 ALT [Catalytic activity/Vol] 19 U/L <35 [facility] Serum or plasma albumin elis urement (mass/volume)Ordered By: Stanley Godwin on 10-28-2024 Albumin [Mass/Vol] 4.3 g/dL 3.4-4.8 [facility] Serum or plasma albumin/glob ulin mass ratioOrdered By: Stanley Godwin on 10-28-2024 Albumin/Globulin [Mass ratio] 1.5 {ratio} 0.9-2.4 [facility] Serum or plasma alkaline radha sphatase measurementOrdered By: Stanley Godwin on 10-28-2024 ALP [Catalytic activity/Vol] 93 U/L 35-104 [facility] Serum or plasma calcium elis urement (mass/volume)Ordered By: Stanley Godwin on 10-28-2024 Calcium [Mass/Vol] 9.2 mg/dL 7.6-11.0 [facility] Serum or plasma urea nitroge n measurement (mass/volume)Ordered By: Stanley Godwin on 10-28-2024 Urea nitrogen [Mass/Vol] 15 mg/dL 4-19 [facility] Sodium levelOrdered By: Armen Aldana on 10-28-2024 Sodium [Moles/Vol] 137 mmol/L 133-145 [facility] Total proteinOrdered By: José Antonio Godwin on 10-28-2024 Protein [Mass/Vol] 7.2 g/dL 5.9-8.4 [facility] White blood cell (WBC) count Ordered By: Stanley Godwin on 10-28-2024 WBC (Bld) [#/Vol] 8.1 10*3/uL 4.4-11.0 [facility] Fluor Guidance for Spine Inj on 10-07-2024 Fluor Guidance for Spine Inj [facility] Imaging Services [address] [place], [place] [id number] Fluor Guidance for Spine Inj MR#: [id number] Acct: [id number] Name: JUDY REAGAN ANN Rep #: [id number] : 1960 F 64 From: Jose Roberto Berg i, DO PCP: Dr. Hernandez Mosley MD Status: [place]P [facility] Study: Fluor Guidance for Spine Inj Date of Exam: Exam# [id number] Ordering Dr: Montana Quiñonez MD PROCEDURE: Fluoroscopy use. 10/07/2024 REASON FOR EXAM: BLOCK, CAUDAL TECHNIQUE: A single lateral spot image of the sacrum/coccyx was obtained during caudal nerve block. 7.2 seconds of fluoroscopic time utilized. COMPARISON: None. FINDINGS: A single lateral projection of the sacrum/coccyx was obtained. A needle tip projects over the distal sacrum. RAD/Fluor Guidance for Spine Inj IMPRESSION: Documentation of fluoroscopy use during caudal nerve block. Please see the procedure note for details. Reading Location: [facility] CC: Dr. Montana Quiñonez MD; Dr. Hernandez Mosley MD Yarn Comber: Signed [facility] MR/POSTOP.[facility] 10-07-2024 MR/POSTOP.[facility] Medical Records Department [address] [place] [address] Anesthesia Postop Eval I 10/07/24 1208 MR#: [id number] Acct: [id number] Name: JUDY REAGNA Rep #: [id number] : 1960 64 From: Montse Nicole CRNA PCP: Dr. Hernandez Mosley MD Status:[facility] Y Race: C Location: [place] [address] Anesthesia: Postop Eval I Current Vital Signs Temperature: 98.4 F Pulse Rate: 98 Blood Pressure: 142/90 Respiratory Rate: 18 Pulse Ox: 100 Oxygen Delivery Method: Room Air Assessment Airway patent: Yes Spontaneous unlabored respirations: Yes Mental status: Awake nausea: No Vomiting: No Anesthesia Complication: No Fluid Hydration Crystalloid volume administer (ml): 10 Total IV fluid infused: 10 Progress Note Anesthesia document: Postop Eval 1 completed: Yes 10/07/24 1209 Date Montse Nicole APPRENTICESHIP CONSULTANT Cosigner Signature: Date CC: Signed Normal [facility] MR/[id number] 10-07-2024 MR/POSTOPAN2 [facility] Medical Records Department [address] [place] [address] Anesthesia Postop Eval II 10/07/24 1226 MR#: [id number] Acct: [id number] Name: JUDY REAGAN ANN Rep #: [id number] : 1960 64 From: Yeimy Duggan PCP: Dr. Hernandez Mosley MD Status:REG [facility] Y Race: C Location: [place] [address] Anesthesia Postop Eval I Sum Postop Eval Completion status Anesthesia document: Postop Eval 1 completed: Yes Anesthesia Postop Eval I Summary Anesthesia Postop Eval I Summary: Anesthesia Postop Eval I: Assessment Summary Airway patent Yes 10/07/24 12:09 APPRENTICESHIP CONSULTANT.LMIL Spontaneous unlabored Yes 10/07/24 12:09 APPRENTICESHIP CONSULTANT.LMIL respirations Mental status Awake 10/07/24 12:09 APPRENTICESHIP CONSULTANT.LMIL nausea No 10/07/24 12:09 APPRENTICESHIP CONSULTANT.LMIL Vomiting No 10/07/24 12:09 APPRENTICESHIP CONSULTANT.LMIL Anesthesia Postop Eval I: Fluid Summary Crystalloid volume administer 10 10/07/24 12:09 APPRENTICESHIP CONSULTANT.LMIL (ml) Colloids volume administered ( ml) Blood Product volume administered (ml) Total IV fluid infused 10 10/07/24 12:09 APPRENTICESHIP CONSULTANT.LMIL Anesthesia Postop Eval I: Summary Notes Anesthesia Complication No 10/07/24 12:09 APPRENTICESHIP CONSULTANT.LMIL Anesthesia Complication Comment: Post-operative progress note Anesthesia: Postop Eval II Evaluation Mental status: Awake Pain Level: 3 nausea: No Vomiting: No 10/07/241225 Date Yeimy Duggan Cosignhadley Signature: Date CC: Signed Normal [facility] Operative Reporton 5 Operative Report [facility] Medical Records Department [address] [place] [address] Operative Report 10/07/24 1200 MR#: [id number] Acct: [id number] Name: JUDY REAGAN Rep #: [id number] : 1960 64 From: Montana Quiñonez MD PCP: Dr. Hernandez Mosley MD Status:[facility] Location: [place] [address] Operative Report (Standard) Operative Information Date of Procedure: 10/07/24 Pre-Operative Diagnosis: Lumbosacral radiculopathy, lumbosacral degenerative disc disease, lumbosacral spinal stenosis, postlaminectomy syndrome of the lumbar spine Post-Operative Diagnosis: Lumbosacral radiculopathy, lumbosacral degenerative disc disease, lumbosacral spinal stenosis, postlaminectomy syndrome of the lumbar spine Surgery/Procedure Performed: Diagnostic/therapeutic caudal epidural steroid injection under fluoroscopic guidance. pipe bowls paint trimmer: No Type of Anesthesia: Local MAC RN Documented Start/Stop Times: Operation Date: 10/07/24 12:40 Case Time Into Pre-Op 10/07/24 11:11 Out of Pre-Op 10/07/24 11:43 Anesthesia Start 10/07/24 11:50 Into Room 10/07/24 11:50 Procedure Start 10/07/24 11:56 Procedure End 10/07/24 11:59 Procedure Start Time: 12:01 Procedure Stop Time: 12:01 Select all DRAINS/GRAFTS/IMPLANTS that apply: None Estimated Blood Loss: 1 Specimen collected: No Description of surgery: PROCEDURE PERFORMED: Diagnostic/therapeutic caudal epidural steroid injection under fluoroscopic guidance ANESTHESIA: MAC. BLOOD LOSS: Minimal. COMPLICATIONS: None. DESCRIPTION OF PROCEDURE: History and physical of today was reviewed. Risks and benefits of the procedure were explained. The patient understood and agreed to proceed. Informed consent was obtained. IV inserted per routine protocol. The patient was taken to the operating room and placed in the prone position with a pillow positioned underneath the abdomen. The lower back and tailbone area was prepped and draped in a sterile fashion using iodine x3. Under fluoroscopy guidance on a lateral view, the caudal space was identified. The skin and subcutaneous tissue was anesthetized with approximately 3 mL of 1% lidocaine using a 25-gauge regular needle. Under direct visualization with fluoroscopy, using a 22-gauge 3-1/2-inch spinal needle, the needle was advanced via the skin through the sacral hiatus. The tip of the needle was passed through the sacrococcygeal ligament and advanced to approximately S4 area. After negative aspiration of blood or CSF, a total of 3 mL of contrast was injected to confirm correct placement of the needle as well as cephalad spread. The spread was followed to approximately L5 area. After confirmation on AP as well as lateral view and repeated negative aspiration, a total of 15 mL of preservative-free 0.125% Marcaine with 80 mg of Depo-Medrol was injected easily. The needle was then removed intact. The patient experienced no sign or symptoms of intrathecal or intravascular injection. The patient experienced no paresthesia. The procedure was completed without any apparent difficulty or any complications. The patient appeared to tolerate it well. ASSESSMENT AND PLAN: This is a 64-year-old female with Lumbosacral radiculopathy, lumbosacral degenerative disc disease, lumbosacral spinal stenosis, postlaminectomy syndrome of the lumbar spine, status post diagnostic/therapeutic caudal epidural steroid injection under fluoroscopic guidance, patient will continue her current medications, patient will follow-up in approximately 1 to 2 weeks for reevaluation. Surgical Findings: 0 Complications Complications: No Admit VTE Documentation VTE Present on Admission: No VTE Mechan Device Prophylaxis: None VTE Pharm Prophylaxis ordered?: No 10/07/24 1202 Cosigner Signature (if applicable): CC: Dr. Montana Quiñonez MD; Dr. Hernandez Mosley MD Signed Normal [facility] Abdomen/Pelvis WITH Contrast on 08-12-2024 Abdomen/Pelvis WITH Contrast [facility] Imaging Services [address] [place] [address] Abdomen/Pelvis WITH Contrast MR#: [id number] Acct: [id number] Name: JUDY REAGAN ANN Rep #: [id number] : 1960 F 64 From: Montana Dillard MD PCP: Dr. Hernandez Mosley MD Status: REG CLI Study: Abdomen/Pelvis WITH Contrast Date of Exam: Exam# [id number] Ordering Dr: Stanley Godwin DO [id number] STUDY: CT ABDOMEN AND PELVIS WITH CONTRAST REASON FOR EXAM: Female, 64 years old. diverticulitis RADIATION DOSAGE (If Supplied By Facility): CTDIvol = ( 14.98 ) mGy, DLP = ( 816.30 ) mGycm TECHNIQUE: Transaxial images were obtained from the dome of the diaphragm to the symphysis pubis without oral contrast. Oral and amp; IV Gastrografin and amp; 100mL Isovue-300 was administered. Sagittal and coronal images were reconstructed. Individualized dose optimization techniques were used for this CT. COMPARISON: None. FINDINGS: The visualized lung bases are unremarkable. The visualized portions of the heart are within normal limits. Normal liver. Normal gallbladder and extrahepatic biliary system. Normal spleen. Normal pancreas. Normal bilateral adrenal glands. No evidence for renal obstruction. There is a tiny cyst in each kidney which will not require additional imaging Normal visualized stomach. Normal small intestine. Diverticular changes of the colon with mild thickening of the guzman of the sigmoid colon and minor stranding of the fat suggesting early early changes of acute diverticulitis There is no evidence for acute appendicitis. Atherosclerotic changes of the aorta without evidence for aneurysm. Normal inferior vena cava. Normal retroperitoneum. Normal urinary bladder. Uterus not visualized consistent with hysterectomy Normal abdominal wall. Postop change status post anterior fusion at L4-5 CT/Abdomen/Pelvis WITH Contrast IMPRESSION: Findings which may be consistent with early changes of acute diverticulitis of the sigmoid colon. No peridiverticular abscess. Clinical correlation recommended Electronically Signed: Montana Dillard MD at 18:27 EST Reading Location ID and State: [facility] / [place] Tel , Service support , CC: Dr. Hernandez Mosley MD; Stanley Friend, Yarn Comber: Signed Normal [facility] Urgent Care Visit Reporton 1 08-25-2023 Urgent Care Visit Report [facility] [address], [address] [place] [address] OFFICE VISIT Date of Service: 06/24/24 MR#: [id number] Acct: [id number] Name: JUDY REAGAN Rep #: [id number] : 1960 Provider: IRA Stoddard Age/Sex: 64/F Location[place] [facility] Status: Signed Intake Vital Signs 11/24/23 14:04 06/24/24 09:37 Height 5 ft 4 in 5 ft 4 in Weight: 164 lb BMI 28.1 BP 132/88 H Blood Pressure Location Rt brachial Position Sitting Respiration 16 Pulse 97 Pulse Source Monitor Temp 98.0 F Temp Source Oral Pulse Oximetry (%) 98 Oxygen Delivery Method room air Intake Visit Reasons: EAR PAIN Chief Complaint: EAR PAIN 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: No Accompanied by: Self Is patient in pain?: Yes Allergies adhesive tape Allergy (Severe, Verified 06/24/24 09:38) blistering bee venom protein (honey bee) Allergy (Verified 06/24/24 09:38) Swelling Medications ???Medication ???Instructions ???Recorded ???Confirmed ???Type venlafaxine 37.5 mg tablet 75 mg PO QHS depression 03/20/16 06/24/24 History pantoprazole 40 mg tablet,delayed 40 mg PO DAILY GERD 08/09/22 06/24/24 History release ramipril 10 mg capsule 10 mg PO BID HEART 08/09/22 06/24/24 History ropinirole 0.25 mg tablet 0.5 mg PO QHS RESTLESS LEGS 08/09/22 06/24/24 History furosemide 20 mg tablet 20 mg PO DAILY 01/12/23 06/24/24 History acetaminophen 500 mg tablet 1,000 mg (2 x 500 mg) PO Q6H PRN 06/21/23 06/24/24 Rx #100 tabs acidophilus 25 million 2 tab PO BID #0 tabs 09/26/23 06/24/24 Rx cell-pectin, citrus 100 mg tablet tramadol 50 mg tablet 50 - 100 mg (1 - 2 x 50 mg) PO Q8H 09/26/23 06/24/24 Rx PRN pain #10 tabs amlodipine 5 mg tablet (Norvasc) 5 mg PO QHS 11/09/23 06/24/24 History duloxetine 30 mg capsule,delayed 30 mg PO DAILY #30 caps 02/12/24 06/24/24 Rx release hydrocortisone 20 mg tablet 20 mg PO BID #60 tabs 02/12/24 06/24/24 Rx ustekinumab 90 mg/mL subcutaneous 90 mg subcut Q8W #1 mL 03/11/24 06/24/24 Rx syringe (Stelara) amoxicillin 500 mg tablet 500 mg PO TID #30 tabs 06/24/24 06/24/24 Rx PFSH Medical History History of Crohn's disease Chronic pain GERD (gastroesophageal reflux disease) History of steroid therapy Wears glasses Post-menopausal Anxiety Alcohol use Hx of psoriatic arthritis Restless legs Back pain History of diverticulitis Hx of peptic ulcer Former smoker History of pain when walking Hypertension Physical exam, pre-employment Osteoarthritis Surgical History Hx of colonoscopy History of lumbar spinal fusion Status post left partial knee replacement History of total right knee replacement History of appendectomy History of hysterectomy History of section Family History Other Breast cancer CAD (coronary artery disease) Heart disease Hypertension Social History household members: spouse Smoking Status: Former smoker alcohol intake: current alcohol intake frequency: holidays/special occasions only substance use type: does not use what type of physical activity do you participate in: walking frequency: 1-2 times per week HPI HPI Chief Complaint: EAR PAIN LT Details: JUDY REAGAN, is a 64 F who presents to the office today for initial evaluation approximately 1 week history of progressively worsening left more so than right ear pressure with forehead and facial pressure and purulent postnasal drip and irritated throat with cough. No complaints of fever, chills, sweats, lightheadedness/dizzines s, nausea/vomiting. No complaints of chest pressure/shortness of breath/dyspnea on exertion. No ipid-ptt-sdpsnjt products taken to assist. Non-smoker. No other associated symptoms and no other alleviating/aggravating factors. PMH: Crohn's, psoriatic arthritis. Also previously diagnosed with COVID-19 and bronchitis approximately 6 weeks ago which self resolved then. ROS Const Constitutional: No other (as above) Exam Const General: cooperative, healthy appearing and no acute distress Orientation: alert, awake and oriented x3 HENMT Head: normal to inspection Ears: hearing grossly normal bilaterally, external ears normal, TM's normal bilaterally and EAC's normal Nose: external nose normal, nares normal, septum normal and no nasal discharge Face and sinus: normal facial exam, sinuses nontender (Though bilateral maxillary fullness to palpation) and face symmetric Mouth: oral mucosae normal, lip normal, tongue normal and oropharynx normal Throat: posterior oropharynx normal, tonsils normal, uvula midline and postnasal drainage ( (more content not included)... [facility] LAB TEST Normal [facility] Comment on above: Order Comment: Comme nts: [id number] levels; FROZEN Result Comment: Scan kiarra image report available in EMR Performed By: #### L 500.4050, L501.6710, L101.9900, L801.1541, L100.0100 ####[facility] [id number] [facility] [place], [place], [address] Chest PA and Lateralon 05-27 Chest PA and Lateral [facility] Imaging Services [address] [place], [place] [address] Chest PA and Lateral MR#: [id number] Acct: [id number] Name: JUDY REAGAN ANN Rep #: [id number] : 1960 F 64 From: Rubio nunez MD PCP: Dr. Hernandez Mosley MD Status: REG CLI Study: Chest PA and Lateral Date of Exam: 05/27/24 Exam# [id number] Ordering Dr: Hernandez Mosley MD [id number] STUDY: X-RAY CHEST REASON FOR EXAM: Female, 64 years old. WHEEZING TECHNIQUE: PA and lateral views of the chest. COMPARISON: October 13, 2022 FINDINGS: No consolidation or infiltrates are present. COPD/emphysematous changes redemonstrated. There is no demonstrated pleural abnormality. Normal size heart. Normal mediastinum and sumit. Normal visualized pulmonary arteries. There is atherosclerotic calcification of the aortic arch with tortuosity. There are diffuse degenerative changes of the visualized thoracic spine. Normal visualized ribs, clavicles, and shoulders. There is no demonstrated abnormality of the visualized soft tissue structures of the upper abdomen. RAD/Chest PA and Lateral IMPRESSION: COPD/emphysema Electronically Signed: Rubio Clark MD at 11:59 EST Reading Location ID and State: [facility] / MD , Service support , CC: Dr. Hernandez Mosley MD Yarn Comber: Signed [facility] M100.678on 05-27-2024 M100.678 Copy of report sent to Infection Control Printer [id number] 05/27/24 [facility]3 IVANA. SARS-CoV-2 (COVID 19) A Positive A INFLUENZA A Negative INFLUENZA B Negative RSV PCR Negative SARS-CoV-2 (COVID 19 PCR) [facility] Comment on above: Performed By: #### M [id number] ####[facility] [address] [place], [place], [id number] Breast Limited Unilateralon 05-24-2024 Breast Limited Unilateral [facility] Imaging Services [address] [facility] [address] [place], [place] [id number] Breast Limited Unilateral MR#: [id number] Acct: [id number] Name: JUDY REAGAN ANN Rep #: [id number] : 1960 F 64 From: Getachew jimenez MD PCP: Dr. Hernandez Mosley MD Status: REG CLI Study: Breast Limited Unilateral Date of Exam: Exam# [id number] Ordering Dr: Hernandez Mosley MD [id number] STUDY: ULTRASOUND BREAST - LEFT REASON FOR EXAM: Female, 64 years old. Abnormal screening mammogram. TECHNIQUE: Axial and longitudinal images of the LEFT breast were performed with a high resolution ultrasound transducer. # OF IMAGES: 56 COMPARISON: Comparison is made with prior mammogram dated May 22, 2024. FINDINGS: LEFT Breast: The retroareolar region of the left breast was examined with ultrasound. There is dense fibroglandular tissue. Additional mammographic views will be obtained. _ US/Breast Limited Unilateral IMPRESSION: Unremarkable sonogram. Additional mammographic views will be obtained. ASSESSMENT CATEGORY: BIRADS Category 0: Incomplete. Need additional imaging evaluation. A letter regarding these results will be sent to the patient by the facility within 30 days. Electronically Signed: Getachew Wayne MD at 12:58 EDT , CC: Dr. Hernandez Mosley MD Yarn Comber: Signed [facility] DIAG MAMM W/CAD, [facility] DIAG MAMM W/CAD, [facility] Imaging Services [address] [place] [address] DIAG MAMM W/CAD, UNILAT MR#: [id number] Acct: [id number] Name: JUDY REAGAN Rep #: [id number] : 1960 F 64 From: Getachew jimenez MD PCP: Dr. Hernandez Mosley MD Status: REG CL Study: DIAG MAMM W/CAD, UNILAT Date of Exam: 05/24/24 Exam# [id number] Ordering Dr: Hernandez Mosley MD [id number] MAMMOGRAPHY - UNILATERAL DIAGNOSTIC: LEFT BREAST REASON FOR EXAM: Female, 64 years old. Abnormal screening mammogram. Negative targeted ultrasound evaluation. PERTINENT HISTORY: Mother with breast cancer. TECHNIQUE: 90 degree lateral view of the right breast was obtained. CAD: Full Field Digital Mammography with Computer Added Detection was performed. COMPARISON: Comparison is made with prior study dated May 22, 2024. FINDINGS: Breast Composition: The breasts are extremely dense, which lowers the sensitivity of mammography. There are no dominant masses or suspicious calcifications. No other significant abnormalities are identified. BI/DIAG MAMM W/CAD, UNILAT IMPRESSION: Negative unilateral diagnostic mammogram. Yearly followup mammogram recommended. (A) ASSESSMENT CATEGORY: BIRADS Category 1: Negative. A letter regarding these results will be sent to the patient by the facility within 30 days. Approximately 10% of breast cancers are not detected by mammography. A normal mammogram should not delay biopsy of a clinically suspicious abnormality. Electronically Signed: Getachew Wayne MD at 10:31 EDT , CC: Dr. Hernandez Mosley MD Yarn Comber: Signed Normal [facility] SCRN MAMM (CAD)W/NIHARIKA BILATo n 05-22-2024 SCRN MAMM (CAD)W/NIHARIKA BILAT [facility] Imaging Services [address] [place], [place] [address] SCRN MAMM (CAD)W/NIHARIKA BILAT MR#: [id number] Acct: [id number] Name: JUDY REAGAN Rep #: [id number] : 1960 F 64 From: Getachew jimenez MD PCP: Dr. Hernandez Mosley MD Status: REG CL Study: SCRN MAMM (CAD)W/NIHARIKA BILAT Date of Exam: 04/25 Exam# [id number] Ordering Dr: Hernandez Mosley MD [id number] MAMMOGRAPHY - BILATERAL SCREENING REASON FOR EXAM: Female, 64 years old. Routine annual screening examination. PERTINENT HISTORY: Mother with breast cancer. TECHNIQUE: Digital bilateral breast niharika (3D mammographic acquisition) in the CC and MLO projections. 2-D mediolateral oblique (MLO) and craniocaudad (CC) views of both breasts were obtained. CAD: Full Field Digital Mammography with Computer Added Detection was performed. COMPARISON: Comparison is made with prior study of September 07, 2022 and April 14, 2021. FINDINGS: Breast Composition: The breasts are heterogeneously dense, which may obscure small masses. Questionable 1.6 cm x 1.7 cm nodular density in the retroareolar region of the left breast. Correlation with ultrasound recommended. Stable small benign-appearing bilateral axillary lymph nodes. No other significant abnormalities are identified. There has been no significant change since the prior study. BI/SCRN MAMM (CAD)W/NIHARIKA BILAT IMPRESSION: Questionable 1.6 cm x 1.7 cm nodular density in the retroareolar region of the left breast. Correlation with ultrasound recommended. ASSESSMENT CATEGORY: BIRADS Category 0: Incomplete. Need additional imaging evaluation. A letter regarding these results will be sent to the patient by the facility within 30 days. Approximately 10% of breast cancers are not detected by mammography. A normal mammogram should not delay biopsy of a clinically suspicious abnormality. [id number] Electronically Signed: Getachew Wayne MD at 11:26 EDT Reading Location ID and State: [address] [place] [address] , Service support , CC: Dr. Hernandez Mosley MD Yarn Comber: Signed Normal [facility] CBC W/Diff, Automatedon 04-23 Absolute Lymph 2.13 X10 3/uL Normal 0.83-4.51 [facility] Comment on above: Performed By: #### L 500.4050, L501.6710, L101.9900, L801.1541, L100.0100 #### [facility] [address] [place], [place], [id number] Absolute Neut 6.2 X10 3/uL Normal 2.0-7.7 [facility] Comment on above: Performed By: #### L 500.4050, L501.6710, L101.9900, L801.1541, L100.0100 #### [facility] [address] [place], [address] Basophils/100 WBC (Bld) 0.7 % Normal 0-1 [facility] Comment on above: Performed By: #### L 500.4050, L501.6710, L101.9900, L801.1541, L100.0100 #### [facility] [address] [place], [address] Eosinophils/100 WBC (Bld) 0.6 % Normal 0-5 [facility] Comment on above: Performed By: #### L 500.4050, L501.6710, L101.9900, L801.1541, L100.0100 #### [facility] [address] [place], [address] Erythrocyte distribution width (RBC) [Ratio] 13.2 % Normal 11.6-14.6 [facility] Comment on above: Performed By: #### L 500.4050, L501.6710, L101.9900, L801.1541, L100.0100 #### [facility] [address] [place], [address] Hematocrit (Bld) [Volume fraction] 43.2 % Normal 37-47 [facility] Comment on above: Performed By: #### L 500.4050, L501.6710, L101.9900, L801.1541, L100.0100 #### [facility] [address] [place], [address] Hemoglobin (Bld) [Mass/Vol] 13.9 g/dL Normal 12.0-15.0 [facility] Comment on above: Performed By: #### L 500.4050, L501.6710, L101.9900, L801.1541, L100.0100 #### [facility] [address] [place], [address] IG% 0.400 Normal 0.0-0.9 [facility] Comment on above: Result Comment: IG% - Immature Granulocytes (promyelocytes, myelocytes and metamyelocytes) > 1% indicates that a LEFT SHIFT is Present. Performed By: #### L 500.4050, L501.6710, L101.9900, L801.1541, L100.0100 #### [facility] [address] [place], [address] Lymphocytes/100 WBC (Bld) 22.4 % Normal 19-41 [facility] Comment on above: Performed By: #### L 500.4050, L501.6710, L101.9900, L801.1541, L100.0100 #### [facility] [address] [place], [address] MCH (RBC) [Entitic mass] 29.9 pg Normal 27.0-32.0 [facility] Comment on above: Performed By: #### L 500.4050, L501.6710, L101.9900, L801.1541, L100.0100 #### [facility] [address] [place], [address] MCHC (RBC) [Mass/Vol] 32.2 g/dL Normal 32-36 [facility] Comment on above: Performed By: #### L 500.4050, L501.6710, L101.9900, L801.1541, L100.0100 #### [facility] [address] [place], [address] MCV (RBC) [Entitic vol] 92.9 fL Normal 81-99 [facility] Comment on above: Performed By: #### L 500.4050, L501.6710, L101.9900, L801.1541, L100.0100 #### [facility] [address] [place], [address] Monocytes/100 WBC (Bld) 11.1 % High 0-10 [facility] Comment on above: Performed By: #### L 500.4050, L501.6710, L101.9900, L801.1541, L100.0100 #### [facility] [address] [place], [address] Neutrophils/100 WBC (Bld) 64.8 % Normal 47-70 [facility] Comment on above: Performed By: #### L 500.4050, L501.6710, L101.9900, L801.1541, L100.0100 #### [facility] [address] [place], [address] Nucleated RBC (Bld) [#/Vol] 0 10*3/uL Normal 0-5 [facility] Comment on above: Performed By: #### L 500.4050, L501.6710, L101.9900, L801.1541, L100.0100 #### [facility] [address] [place], [address] Platelet mean volume (Bld) [Entitic vol] 9.6 fL Normal 6.2-12.0 [facility] Comment on above: Performed By: #### L 500.4050, L501.6710, L101.9900, L801.1541, L100.0100 #### [facility] [address] [place], [address] Platelets (Bld) [#/Vol] 395 10*3/uL Normal 150-450 [facility] Comment on above: Performed By: #### L 500.4050, L501.6710, L101.9900, L801.1541, L100.0100 #### [facility] [address] [place], [address] RBC (Bld) [#/Vol] 4.65 10*6/uL Normal 4.2-5.4 [facility] Comment on above: Performed By: #### L 500.4050, L501.6710, L101.9900, L801.1541, L100.0100 #### [facility] [address] [place], [address] RDW SD 44.6 fl High 35.1-43.9 [facility] Comment on above: Performed By: #### L 500.4050, L501.6710, L101.9900, L801.1541, L100.0100 #### [facility] [address] [place], [address] WBC (Bld) [#/Vol] 9.5 10*3/uL Normal 4.4-11.0 [facility] Comment on above: Performed By: #### L 500.4050, L501.6710, L101.9900, L801.1541, L100.0100 #### [facility] [address] [place], [address] CRPon 05-03-2024 C-REACTIVE PROT 3.04 mg/L High 0.0-3.0 [facility] Comment on above: Order Comment: [id number] 4 Result Comment: C-Re active Protein (CRP) provides useful information for the diagnosis, therapy and monitoring of inflammatory processes and associated diseases. For the evaluation of Relative Risk for Cardiovascular Disease, a High Sensitivity CRP (HSCRP) should be ordered. Performed By: #### L 500.4050, L501.6710, L101.9900, L801.1541, L100.0100 ####[facility] [address] [place], [address] Comprehensive Metabolic Prof ilon 05-03-2024 Albumin [Mass/Vol] 4.2 g/dL Normal 3.2-5.0 [facility] Comment on above: Order Comment: [id number] 4 Performed By: #### L 500.4050, L501.6710, L101.9900, L801.1541, L100.0100 #### [facility] [address] [place], [address] Albumin/Globulin [Mass ratio] 1.2 {ratio} Normal 0.9-2.4 [facility] Comment on above: Order Comment: 33314 4 Performed By: #### L 500.4050, L501.6710, L101.9900, L801.1541, L100.0100 #### [facility] [address] [place], [address] ALK P 78 U/L Normal 45-117 [facility] Comment on above: Order Comment: 44307 4 Performed By: #### L 500.4050, L501.6710, L101.9900, L801.1541, L100.0100 #### [facility] [address] [place], [address] ALT [Catalytic activity/Vol] 36 U/L Normal 13-56 [facility] Comment on above: Order Comment: [id number] 4 Performed By: #### L 500.4050, L501.6710, L101.9900, L801.1541, L100.0100 #### [facility] [address] [place], [address] AST [Catalytic activity/Vol] 18 U/L Normal 15-37 [facility] Comment on above: Order Comment: [id number] 4 Performed By: #### L 500.4050, L501.6710, L101.9900, L801.1541, L100.0100 #### [facility] [address] [place], [address] Bilirubin [Mass/Vol] 0.70 mg/dL Normal 0.20-1.00 [facility] Comment on above: Order Comment: 88783 4 Result Comment: For patients on eltrombopag therapy, use of Dimension [place] TBIL is not recommended. Performed By: #### L 500.4050, L501.6710, L101.9900, L801.1541, L100.0100 #### [facility] [address] [place], [address] BUN/CRE 21.5 RATIO High 10-20 [facility] Comment on above: Order Comment: 02711 4 Performed By: #### L 500.4050, L501.6710, L101.9900, L801.1541, L100.0100 #### [facility] [address] [place], [address] CA,Total 9.3 mg/dL Normal 8.5-10.1 [facility] Comment on above: Order Comment: 26464 4 Performed By: #### L 500.4050, L501.6710, L101.9900, L801.1541, L100.0100 #### [facility] [address] [place], [address] Chloride [Moles/Vol] 102 mmol/L Normal 98-107 [facility] Comment on above: Order Comment: 62790 4 Performed By: #### L 500.4050, L501.6710, L101.9900, L801.1541, L100.0100 #### [facility] [address] [place], [address] CO2 [Moles/Vol] 24.0 mmol/L Normal 21.0-32.0 [facility] Comment on above: Order Comment: 83364 4 Performed By: #### L 500.4050, L501.6710, L101.9900, L801.1541, L100.0100 #### [facility] [address] [place], [address] Creatinine [Mass/Vol] 0.70 mg/dL Normal 0.55-1.02 [facility] Comment on above: Order Comment: 45040 4 Result Comment: The validity of the calculated GFR GFRAA in patients over 70 years has not been determined. Clinical correlation is essential. Performed By: #### L 500.4050, L501.6710, L101.9900, L801.1541, L100.0100 #### [facility] [address] [place], [address] EST GFR - AA 109 mL/min Normal >60 [facility] Comment on above: Order Comment: 48030 4 Result Comment: Afri can Italian GFR Calc Performed By: #### L 500.4050, L501.6710, L101.9900, L801.1541, L100.0100 #### [facility] [address] [place], [address] GAP 9 Normal 5-15 [facility] Comment on above: Order Comment: 19666 4 Performed By: #### L 500.4050, L501.6710, L101.9900, L801.1541, L100.0100 #### [facility] [address] [place], [address] GFR/1.73 sq M.predicted among non-blacks MDRD (S/P/Bld) [Vol rate/Area] 90 mL/min/{1.73_m2} Normal >60 [facility] Comment on above: Order Comment: 30352 4 Result Comment: Non- GFR Calc Performed By: #### L 500.4050, L501.6710, L101.9900, L801.1541, L100.0100 #### [facility] [address] [place], [address] Globulin (S) [Mass/Vol] 3.4 g/dL Normal 2.2-4.2 [facility] Comment on above: Order Comment: 10670 4 Performed By: #### L 500.4050, L501.6710, L101.9900, L801.1541, L100.0100 #### [facility] [address] [place], [address] Glucose [Mass/Vol] 99 mg/dL Normal 74-106 [facility] Comment on above: Order Comment: 95734 4 Performed By: #### L 500.4050, L501.6710, L101.9900, L801.1541, L100.0100 #### [facility] [address] [place], [address] Potassium [Moles/Vol] 3.7 mmol/L Normal 3.5-5.1 [facility] Comment on above: Order Comment: 77240 4 Performed By: #### L 500.4050, L501.6710, L101.9900, L801.1541, L100.0100 #### [facility] [address] [place], [address] Sodium [Moles/Vol] 135 mmol/L Low 136-145 [facility] Comment on above: Order Comment: 81519 4 Performed By: #### L 500.4050, L501.6710, L101.9900, L801.1541, L100.0100 #### [facility] [address] [place], [address] T PROT 7.6 g/dL Normal 6.4-8.2 [facility] Comment on above: Order Comment: 84751 4 Performed By: #### L 500.4050, L501.6710, L101.9900, L801.1541, L100.0100 #### [facility] [address] [place], [address] Urea nitrogen [Mass/Vol] 15 mg/dL Normal 7-18 [facility] Comment on above: Order Comment: 56773 4 Performed By: #### L 500.4050, L501.6710, L101.9900, L801.1541, L100.0100 #### [facility] [address] [place], [address] Erythrocyte Sed Rateon 05-03 SED RATE 6 mm/hr Normal 0-30 [facility] Comment on above: Performed By: #### L 500.4050, L501.6710, L101.9900, L801.1541, L100.0100 #### [facility] [address] [place], [address] Gastroenterology Visit Repor ton 05-03-2024 Gastroenterology Visit Report [facility]enterology [address] [address] OFFICE VISIT Date of Service: 05/03/24 MR#: [id number] Acct: [id number] Name: JUDY REAGAN ANN Rep #: [id number] : 1960 Provider: Stanley Godwin DO Age/Sex: 64/F Location[place] [facility] [place] Status: Signed Intake Vital Signs 11/24/23 14:04 Height 5 ft 4 in Intake Visit Reasons: 3 M FU- Stelara inj Allergies adhesive tape Allergy (Severe, Verified 12/27/23 11:12) blistering bee venom protein (honey bee) Allergy (Verified 12/27/23 11:12) Swelling Medications ???Medication ???Instructions ???Recorded ???Confirmed ???Type venlafaxine 37.5 mg tablet 75 mg PO QHS depression 03/20/16 05/03/24 History pantoprazole 40 mg tablet,delayed 40 mg PO DAILY GERD 08/09/22 05/03/24 History release ramipril 10 mg capsule 10 mg PO BID HEART 08/09/22 05/03/24 History ropinirole 0.25 mg tablet 0.5 mg PO QHS RESTLESS LEGS 08/09/22 05/03/24 History furosemide 20 mg tablet 20 mg PO DAILY 01/12/23 05/03/24 History acetaminophen 500 mg tablet 1,000 mg (2 x 500 mg) PO Q6H PRN 06/21/23 05/03/24 Rx #100 tabs acidophilus 25 million 2 tab PO BID #0 tabs 09/26/23 05/03/24 Rx cell-pectin, citrus 100 mg tablet tramadol 50 mg tablet 50 - 100 mg (1 - 2 x 50 mg) PO Q8H 09/26/23 05/03/24 Rx PRN pain #10 tabs amlodipine 5 mg tablet (Norvasc) 5 mg PO QHS 11/09/23 05/03/24 History duloxetine 30 mg capsule,delayed 30 mg PO DAILY #30 caps 02/12/24 05/03/24 Rx release hydrocortisone 20 mg tablet 20 mg PO BID #60 tabs 02/12/24 05/03/24 Rx ustekinumab 90 mg/mL subcutaneous 90 mg subcut Q8W #1 mL 03/11/24 05/03/24 Rx syringe (Stelara) [facility] Medical History History of Crohn's disease Chronic pain GERD (gastroesophageal reflux disease) History of steroid therapy Wears glasses Post-menopausal Anxiety Alcohol use Hx of psoriatic arthritis Restless legs Back pain History of diverticulitis Hx of peptic ulcer Former smoker History of pain when walking Hypertension Physical exam, pre-employment Osteoarthritis Surgical History Hx of colonoscopy History of lumbar spinal fusion Status post left partial knee replacement History of total right knee replacement History of appendectomy History of hysterectomy History of section Family History Other Breast cancer CAD (coronary artery disease) Heart disease Hypertension Social History household members: spouse Smoking Status: Former smoker alcohol intake: current alcohol intake frequency: holidays/special occasions only substance use type: does not use what type of physical activity do you participate in: walking frequency: 1-2 times per week HPI HPI Details: JUDY REAGAN, is a 64 F who presents to the office today for follow up. [facility] hospitalization 8.28.16-831.16 for abdominal pain. EGD 03.20.16???scope could not be advanced through duodenal bulb due to concentric narrowing less likely mass; no obvious ulcerations; duodenitis with duodenal ulcers; gastritis; healing prepyloric ulcer. H.Pylori neg Prior workup: ?CT abd/pel 09.21.23???colonic diverticulosis with diverticulitis *[facility] hospitalization 3.10.14-3 for management of abdominal pain with recent diverticulitis diagnosis with failed outpatient ATB therapy. Chronic conditions HTN, tobacco use, psoriatic arthritis, pseudogout, partial left knee replacement.??? Treated with IV Rocephin and flagyl. ?CT abd/pel 09.24.23???diverticulosis with sequela of previous diverticulitis of sigmoid colon ?EGD /colonoscopy 09.25.23???EGD severe duodenal stenosis, balloon dilator 12mm, post dilation visualization noted moderate mucosal disruption. ? Colonoscopy diverticulosis; splenic flexure inflammation with friability and granularity OV 4..24 Pt states she has been feeling well since hosp. visit. Has not had any abdominal pain. Continues Mesalamine. BM have been better. Has not had any diarrhea. Is going to start taking daily fiber supplement. Does have lower abdominal cramping that is relieved by BM. OV 5.10.24 pt reports that she had what she thinks was a flare up last week and reported nausea, diarrhea, abdominal pain, cramping, bloating, HB. She started budesonide earlier this week and states that she is no longer having any GI symptoms of concern. OV 7.22.24 pt reports daily symptoms of n/v, diarrhea 4-5x a day, right sided abdominal pain, gas/bloating, and HB. Pt states that she was on vacation last (more content not included)... Normal [facility] HIP, UNI W/ Pelvis 2-3 Views on 04-19-2024 HIP, UNI W/ Pelvis 2-3 Views [facility] Imaging Services [address] [place] [address] HIP, UNI W/ Pelvis 2-3 Views MR#: [id number] Acct: [id number] Name: JUDY REAGAN ANN Rep #: [id number] : 1960 F 64 From: Carlos Vital MD PCP: Dr. Hernandez Mosley MD Status: REG CLI Study: HIP, UNI W/ Pelvis 2-3 Views Date of Exam: Exam# [id number] Ordering Dr: Montana Quiñonez MD [id number] EXAM: XR RIGHT HIP WITH PELVIS WHEN PERFORMED, 4 OR MORE VIEWS CLINICAL INDICATION: RIGHT HIP PAIN TECHNIQUE: Four or more views of the right hip with pelvis when performed. COMPARISON: No relevant prior studies available. FINDINGS: BONES/JOINTS: There is a soft tissue calcification superior to the greater trochanter. No displaced fracture. No destructive or sclerotic lesions. Note that overlapping bowel shadows may however obscure fine detail. Sacroiliac joint is unremarkable. No widening of the pubic symphysis. The articular structures are unremarkable. SOFT TISSUES: Unremarkable. No soft tissue swelling or gas. RAD/HIP, UNI W/ Pelvis 2-3 Views IMPRESSION: Soft tissue calcification superior to the greater trochanter. There is no osseous abnormality. Electronically Signed: Carlos Vital MD at 0:10 EDT , CC: Dr. Montana Quiñonez MD; Dr. Hernandez Mosley MD Yarn Comber: Signed Normal [facility] CBC W/Diff, Automatedon 02-22 Absolute Lymph 1.84 X10 3/uL Normal 0.83-4.51 [facility] Comment on above: Performed By: #### L 506.1000, L501.9520, L500.4050, L100.0100 ####[facility] [address] [place], [address] Absolute Neut 9.3 X10 3/uL High 2.0-7.7 [facility] Comment on above: Performed By: #### L 506.1000, L501.9520, L500.4050, L100.0100 ####[facility] [address] [place], [address] Basophils/100 WBC (Bld) 0.8 % Normal 0-1 [facility] Comment on above: Performed By: #### L 506.1000, L501.9520, L500.4050, L100.0100 ####[facility] [address] [place], [address] Eosinophils/100 WBC (Bld) 1.5 % Normal 0-5 [facility] Comment on above: Performed By: #### L 506.1000, L501.9520, L500.4050, L100.0100 ####[facility] [address] [place], [address] Erythrocyte distribution width (RBC) [Ratio] 13.3 % Normal 11.6-14.6 [facility] Comment on above: Performed By: #### L 506.1000, L501.9520, L500.4050, L100.0100 ####[facility] [address] [place], [address] Hematocrit (Bld) [Volume fraction] 42.8 % Normal 37-47 [facility] Comment on above: Performed By: #### L 506.1000, L501.9520, L500.4050, L100.0100 ####[facility] [address] [place], [address] Hemoglobin (Bld) [Mass/Vol] 13.9 g/dL Normal 12.0-15.0 [facility] Comment on above: Performed By: #### L 506.1000, L501.9520, L500.4050, L100.0100 ####[facility] [address] [place], [address] IG% 0.600 Normal 0.0-0.9 [facility] Comment on above: Result Comment: IG% - Immature Granulocytes (promyelocytes, myelocytes and metamyelocytes) > 1% indicates that a LEFT SHIFT is Present. Performed By: #### L 506.1000, L501.9520, L500.4050, L100.0100 ####[facility] [address] [place], [address] Lymphocytes/100 WBC (Bld) 14.5 % Low 19-41 [facility] Comment on above: Performed By: #### L 506.1000, L501.9520, L500.4050, L100.0100 ####[facility] [address] [place], [address] MCH (RBC) [Entitic mass] 29.9 pg Normal 27.0-32.0 [facility] Comment on above: Performed By: #### L 506.1000, L501.9520, L500.4050, L100.0100 ####[facility] [address] [place], [address] MCHC (RBC) [Mass/Vol] 32.5 g/dL Normal 32-36 [facility] Comment on above: Performed By: #### L 506.1000, L501.9520, L500.4050, L100.0100 ####[facility] [address] [place], [address] MCV (RBC) [Entitic vol] 92.0 fL Normal 81-99 [facility] Comment on above: Performed By: #### L 506.1000, L501.9520, L500.4050, L100.0100 ####[facility] [address] [place], [address] Monocytes/100 WBC (Bld) 9.8 % Normal 0-10 [facility] Comment on above: Performed By: #### L 506.1000, L501.9520, L500.4050, L100.0100 ####[facility] [address] [place], [address] Neutrophils/100 WBC (Bld) 72.8 % High 47-70 [facility] Comment on above: Performed By: #### L 506.1000, L501.9520, L500.4050, L100.0100 ####[facility] [address] [place], [address] Nucleated RBC (Bld) [#/Vol] 0 10*3/uL Normal 0-5 [facility] Comment on above: Performed By: #### L 506.1000, L501.9520, L500.4050, L100.0100 ####[facility] [address] [place], [address] Platelet mean volume (Bld) [Entitic vol] 9.4 fL Normal 6.2-12.0 [facility] Comment on above: Performed By: #### L 506.1000, L501.9520, L500.4050, L100.0100 ####[facility] [address] [place], [address] Platelets (Bld) [#/Vol] 444 10*3/uL Normal 150-450 [facility] Comment on above: Performed By: #### L 506.1000, L501.9520, L500.4050, L100.0100 ####[facility] [address] [place], [address] RBC (Bld) [#/Vol] 4.65 10*6/uL Normal 4.2-5.4 [facility] Comment on above: Performed By: #### L 506.1000, L501.9520, L500.4050, L100.0100 ####[facility] [address] [place], [address] RDW SD 44.8 fl High 35.1-43.9 [facility] Comment on above: Performed By: #### L 506.1000, L501.9520, L500.4050, L100.0100 ####[facility] [address] [place], [address] WBC (Bld) [#/Vol] 12.7 10*3/uL High 4.4-11.0 [facility] Comment on above: Performed By: #### L 506.1000, L501.9520, L500.4050, L100.0100 ####[facility] [address] [place], [address] Comprehensive Metabolic Prof ilon 03-19-2024 Albumin [Mass/Vol] 3.8 g/dL Normal 3.2-5.0 [facility] Comment on above: Performed By: #### L 506.1000, L501.9520, L500.4050, L100.0100 ####[facility] [address] [place], [address] Albumin/Globulin [Mass ratio] 1.0 {ratio} Normal 0.9-2.4 [facility] Comment on above: Performed By: #### L 506.1000, L501.9520, L500.4050, L100.0100 ####[facility] [address] [place], [address] ALK P 94 U/L Normal 45-117 [facility] Comment on above: Performed By: #### L 506.1000, L501.9520, L500.4050, L100.0100 ####[facility] [address] [place], [address] ALT [Catalytic activity/Vol] 32 U/L Normal 13-56 [facility] Comment on above: Performed By: #### L 506.1000, L501.9520, L500.4050, L100.0100 ####[facility] [address] [place], [address] AST [Catalytic activity/Vol] 20 U/L Normal 15-37 [facility] Comment on above: Performed By: #### L 506.1000, L501.9520, L500.4050, L100.0100 ####[facility] [address] [place], [address] Bilirubin [Mass/Vol] 0.50 mg/dL Normal 0.20-1.00 [facility] Comment on above: Result Comment: For patients on eltrombopag therapy, use of Dimension [place] TBIL is not recommended. Performed By: #### L 506.1000, L501.9520, L500.4050, L100.0100 ####[facility] [address] [place], [address] BUN/CRE 19.0 RATIO Normal 10-20 [facility] Comment on above: Performed By: #### L 506.1000, L501.9520, L500.4050, L100.0100 ####[facility] [address] [place], [address] CA,Total 9.4 mg/dL Normal 8.5-10.1 [facility] Comment on above: Performed By: #### L 506.1000, L501.9520, L500.4050, L100.0100 ####[facility] [address] [place], [address] Chloride [Moles/Vol] 99 mmol/L Normal 98-107 [facility] Comment on above: Performed By: #### L 506.1000, L501.9520, L500.4050, L100.0100 ####[facility] [address] [place], [address] CO2 [Moles/Vol] 28.0 mmol/L Normal 21.0-32.0 [facility] Comment on above: Performed By: #### L 506.1000, L501.9520, L500.4050, L100.0100 ####[facility] [address] [place], [address] Creatinine [Mass/Vol] 0.95 mg/dL Normal 0.55-1.02 [facility] Comment on above: Result Comment: The validity of the calculated GFR GFRAA in patients over 70 years has not been determined. Clinical correlation is essential. Performed By: #### L 506.1000, L501.9520, L500.4050, L100.0100 ####[facility] [address] [place], [address] EST GFR - AA 77 mL/min Normal >60 [facility] Comment on above: Result Comment: Afri can Italian GFR Calc Performed By: #### L 506.1000, L501.9520, L500.4050, L100.0100 ####[facility] [address] [place], [address] GAP 10 Normal 5-15 [facility] Comment on above: Performed By: #### L 506.1000, L501.9520, L500.4050, L100.0100 ####[facility] [address] [place], [address] GFR/1.73 sq M.predicted among non-blacks MDRD (S/P/Bld) [Vol rate/Area] 64 mL/min/{1.73_m2} Normal >60 [facility] Comment on above: Result Comment: Non- GFR Calc Performed By: #### L 506.1000, L501.9520, L500.4050, L100.0100 ####[facility] [address] [place], [address] Globulin (S) [Mass/Vol] 3.8 g/dL Normal 2.2-4.2 [facility] Comment on above: Performed By: #### L 506.1000, L501.9520, L500.4050, L100.0100 ####[facility] [address] [place], [address] Glucose [Mass/Vol] 103 mg/dL Normal 74-106 [facility] Comment on above: Result Comment: Fast ing Glucose result from 100 to 125 mg/dL suggests IMPAIRED HOMEOSTASIS per A.D.A. criteria. Performed By: #### L 506.1000, L501.9520, L500.4050, L100.0100 ####[facility] [address] [place], [address] Potassium [Moles/Vol] 4.4 mmol/L Normal 3.5-5.1 [facility] Comment on above: Performed By: #### L 506.1000, L501.9520, L500.4050, L100.0100 ####[facility] [address] [place], [address] Sodium [Moles/Vol] 137 mmol/L Normal 136-145 [facility] Comment on above: Performed By: #### L 506.1000, L501.9520, L500.4050, L100.0100 ####[facility] [address] [place], [address] T PROT 7.6 g/dL Normal 6.4-8.2 [facility] Comment on above: Performed By: #### L 506.1000, L501.9520, L500.4050, L100.0100 ####[facility] [address] [place], [address] Urea nitrogen [Mass/Vol] 18 mg/dL Normal 7-18 [facility] Comment on above: Performed By: #### L 506.1000, L501.9520, L500.4050, L100.0100 ####[facility] [address] [place], [address] Thyroid Stim Hormone (TSH)on 03-19-2024 TSH 1.440 uIU/mL Normal 0.358-3.740 [facility] Comment on above: Performed By: #### L 506.1000, L501.9520, L500.4050, L100.0100 ####[facility] [address] [place], [place], [address] Vitamin D,25 Hydroxyon 03-19 Vitamin D 25-OH 28.7 ng/mL Normal [facility] Comment on above: Result Comment: Ann min D 25(OH) Status Range Deficiency <20 ng/mL (50nmol/L) Insufficiency 20 - 30 ng/mL (50 - 75 nmol/L) Sufficiency 30 - 100 ng/mL (75 - 250 nmol/L) Toxicity >100 ng/mL (>250 nmol/L) Performed By: #### L 506.1000, L501.9520, L500.4050, L100.0100 ####[facility] [address] [place], [place], [id number] Absolute lymphocyte countOrd ered By: Sherif Benson on 09-26-2023 Lymphocytes Auto (Unsp spec) [#/Vol] 1.54 10*3/uL 0.83-4.51 [facility] Automated lymphocyte count a s percentage of total leukocytesOrdered By: Sherif Benson on 09-26-2023 Lymphocytes/100 WBC Auto (Unsp spec) 37.1 % 19-41 [facility] Basophil percentageOrdered B y: Sherif Benson on 09-26-2023 Basophils/100 WBC (Bld) 0.7 % 0-1 [facility] Chloride [Moles/Vol] 110 mmol/L 98-107 [facility] Eosinophils/100 WBC (Bld) 4.3 % 0-5 [facility] Glucose [Mass/Vol] 104 mg/dL 74-106 [facility] Comment on above: Fasting Glucose resu lt from 100 to 125 mg/dL suggests IMPAIRED HOMEOSTASIS per A.D.A. criteria. Hemoglobin (Bld) [Mass/Vol] 13.1 g/dL 12.0-15.0 [facility] Monocytes/100 WBC (Bld) 15.7 % 0-10 [facility] Neutrophils (Bld) [#/Vol] 1.7 10*3/uL 2.0-7.7 [facility] Neutrophils/100 WBC (Bld) 41.7 % 47-70 [facility] Potassium [Moles/Vol] 3.3 mmol/L 3.5-5.1 [facility] Sodium [Moles/Vol] 141 mmol/L 136-145 [facility] WBC (Bld) [#/Vol] 4.2 10*3/uL 4.4-11.0 [facility] Determination of erythrocyte mean corpuscular volume (MCV)Ordered By: Sherif Benson on 09-26-2023 MCV (RBC) [Entitic vol] 91.6 fL 81-99 [facility] Erythrocyte distribution wid th ratioOrdered By: Sherif Benson on 09-26-2023 Erythrocyte distribution width (RBC) [Ratio] 12.8 % 11.6-14.6 [facility] Erythrocyte distribution wid th standard deviationOrdered By: Sherif Benson on 09-26-2023 Erythrocyte distribution width (RBC) [Entitic vol] 42.8 fL 35.1-43.9 [facility] Hematocrit Auto (Bld) [Volum e fraction]Ordered By: Sherif Benson on 09-26-2023 Hematocrit (Bld) [Volume fraction] 40.6 % 37-47 [facility] Immature granulocytes/100 WB C Auto (Bld)Ordered By: Sherif Benson on 09-26-2023 Immature granulocytes/100 WBC (Bld) 0.500 % 0.0-0.9 [facility] Comment on above: IG% - Immature Granu locytes (promyelocytes, myelocytes and metamyelocytes) > 1% indicates that a LEFT SHIFT is Present. Laboratory - Chemistry and C hemistry - challengeOrdered By: Sherif Benson on 09-26-2023 CO2 [Moles/Vol] 27.0 mmol/L 21.0-32.0 [facility] Urea nitrogen/Creatinine [Mass ratio] 14.4 mg/mg 10-20 [facility] Laboratory - Hematology and Cell countsOrdered By: Sherif Benson on 09-26-2023 MCH (RBC) [Entitic mass] 29.6 pg 27.0-32.0 [facility] MCHC (RBC) [Mass/Vol] 32.3 g/dL 32-36 [facility] Nucleated RBC/100 WBC (Bld) [Ratio] 0 % 0-5 [facility] Platelet mean volume (Bld) [Entitic vol] 9.6 fL 6.2-12.0 [facility] Platelets (Bld) [#/Vol] 296 10*3/uL 150-450 [facility] No Panel InformationOrdered By: Sherif Benson on 09-26-2023 Estimated Creatinine Clearance Calc 83.27 ml/min [facility] Estimated GFR (MDRD) Amer 110 mL/min >60 [facility] Comment on above: GFR Calc Estimated GFR (MDRD) Non-Af Amer 91 mL/min >60 [facility] Comment on above: Non- GFR Calc RBC Auto (Bld) [#/Vol]Ordere d By: Sherif Benson on 09-26-2023 RBC (Bld) [#/Vol] 4.43 10*6/uL 4.2-5.4 [facility] Serum or plasma calcium elis urement (mass/volume)Ordered By: Sherif Benson on 09-26-2023 Calcium [Mass/Vol] 8.9 mg/dL 8.5-10.1 [facility] Serum or plasma creatinine m easurement (mass/volume)Ordered By: Sherif Benson on 09-26-2023 Creatinine [Mass/Vol] 0.70 mg/dL 0.55-1.02 [facility] Comment on above: The validity of the calculated GFR & GFRAA in patients over 70 years has not been determined. Clinical correlation is essential. Serum or plasma urea nitroge n measurement (mass/volume)Ordered By: Sherif Benson on 09-26-2023 Urea nitrogen [Mass/Vol] 10 mg/dL 7-18 [facility] Thin prep Papanicolaou smear with manual screeningOrdered By: Sherif Benson on 09-26-2023 Thin prep Papanicolaou smear with manual screening 4 5-15 [facility] No Panel InformationOrdered By: Stanley Godwin on 09-25-2023 Parathyroid Hormone (Intact) 79.8 pg/mL 18.4-80.1 [facility] Absolute lymphocyte countOrd ered By: Michael Virysoheila on 09-24-2023 Lymphocytes Auto (Unsp spec) [#/Vol] 1.89 10*3/uL 0.83-4.51 [facility] Albumin Elph [Mass/Vol]Order ed By: Stanley Godwin on 09-24-2023 Albumin [Mass/Vol] 3.4 g/dL 2.9-4.4 [facility] Atypical P-ANCA titerOrdered By: Stanley Godwin on 09-24-2023 Neutrophil cytoplasmic Ab.perinuclear.atypical IF (S) [Titer] Negative Negative [facility] Automated lymphocyte count a s percentage of total leukocytesOrdered By: iMchael Lyman on 09-24-2023 Lymphocytes/100 WBC Auto (Unsp spec) 27.2 % 19-41 [facility] Basophil percentageOrdered B y: Stanley Godwin on 09-24-2023 LDH [Catalytic activity/Vol] 166 U/L 84-246 [facility] Basophil percentageOrdered B y: Jorge L Davalos on 09-24-2023 Basophil percentage 3.3 mg/dL 2.5-4.9 [facility] Bilirubin [Mass/Vol] 0.30 mg/dL 0.20-1.00 [facility] Comment on above: For patients on eltr ombopag therapy, use of Dimension [place] TBIL is not recommended. Protein [Mass/Vol] 6.5 g/dL 6.4-8.2 [facility] Basophil percentageOrdered B y: Michael Lyman on 09-24-2023 Basophils/100 WBC (Bld) 1.0 % 0-1 [facility] Chloride [Moles/Vol] 107 mmol/L 98-107 [facility] Eosinophils/100 WBC (Bld) 1.6 % 0-5 [facility] Glucose [Mass/Vol] 101 mg/dL 74-106 [facility] Comment on above: Fasting Glucose resu lt from 100 to 125 mg/dL suggests IMPAIRED HOMEOSTASIS per A.D.A. criteria. Hemoglobin (Bld) [Mass/Vol] 13.6 g/dL 12.0-15.0 [facility] Lactate [Moles/Vol] 0.7 mmol/L 0.4-2.0 [facility] Monocytes/100 WBC (Bld) 12.8 % 0-10 [facility] Neutrophils (Bld) [#/Vol] 4.0 10*3/uL 2.0-7.7 [facility] Neutrophils/100 WBC (Bld) 57.1 % 47-70 [facility] Potassium [Moles/Vol] 3.4 mmol/L 3.5-5.1 [facility] Sodium [Moles/Vol] 139 mmol/L 136-145 [facility] WBC (Bld) [#/Vol] 7.0 10*3/uL 4.4-11.0 [facility] Chitobioside IgA antibody as sayOrdered By: Stanley Godwin on 09-24-2023 Chitobioside IgA IA Qn 10 units 0-90 [facility] Comment on above: Negative: <80 Equivo marquez: 80-90 Positive: >90 Chocolate IgE serumOrdered B y: Stanley Godwin on 09-24-2023 Chocolate IgE Qn (S) <0.10 kU/L Class 0 [facility] Determination of erythrocyte mean corpuscular volume (MCV)Ordered By: Michael Lyman on 09-24-2023 MCV (RBC) [Entitic vol] 91.8 fL 81-99 [facility] Erythrocyte distribution wid th ratioOrdered By: Michael Lyman on 09-24-2023 Erythrocyte distribution width (RBC) [Ratio] 13.0 % 11.6-14.6 [facility] Erythrocyte distribution wid th standard deviationOrdered By: Michael Lyman on 09-24-2023 Erythrocyte distribution width (RBC) [Entitic vol] 43.7 fL 35.1-43.9 [facility] Erythrocyte sedimentation ra teOrdered By: Stanley Godwin on 09-24-2023 ESR (Bld) [Velocity] 9 mm/h 0-30 [facility] Hematocrit Auto (Bld) [Volum e fraction]Ordered By: Michael Lyman on 09-24-2023 Hematocrit (Bld) [Volume fraction] 42.8 % 37-47 [facility] Immature granulocytes/100 WB C Auto (Bld)Ordered By: Michael Lyman on 09-24-2023 Immature granulocytes/100 WBC (Bld) 0.300 % 0.0-0.9 [facility] Comment on above: IG% - Immature Granu locytes (promyelocytes, myelocytes and metamyelocytes) > 1% indicates that a LEFT SHIFT is Present. Interpretation of serum or p lasma protein pattern by immunofixation (narrative resultOrdered By: Stanley Godwin on 09-24-2023 Protein Fractions Immunofixation Angel [Interp] Not Observed g/dL Not Observed [facility] Laboratory - Chemistry and C hemistry - challengeOrdered By: Jorge L Davalos on 09-24-2023 Albumin/Globulin [Mass ratio] 1.0 {ratio} 0.9-2.4 [facility] ALP [Catalytic activity/Vol] 86 U/L 45-117 [facility] ALT [Catalytic activity/Vol] 27 U/L 13-56 [facility] Globulin (S) [Mass/Vol] 3.2 g/dL 2.2-4.2 [facility] Magnesium [Mass/Vol] 2.3 mg/dL 1.6-2.6 [facility] Laboratory - Chemistry and C hemistry - challengeOrdered By: Michael Lyman on 09-24-2023 CO2 [Moles/Vol] 29.0 mmol/L 21.0-32.0 [facility] Magnesium [Mass/Vol] 2.4 mg/dL 1.6-2.6 [facility] Urea nitrogen/Creatinine [Mass ratio] 16.2 mg/mg 10-20 [facility] Laboratory - Hematology and Cell countsOrdered By: Michael Lyman on 09-24-2023 MCH (RBC) [Entitic mass] 29.2 pg 27.0-32.0 [facility] MCHC (RBC) [Mass/Vol] 31.8 g/dL 32-36 [facility] Nucleated RBC/100 WBC (Bld) [Ratio] 0 % 0-5 [facility] Platelet mean volume (Bld) [Entitic vol] 10.0 fL 6.2-12.0 [facility] Platelets (Bld) [#/Vol] 296 10*3/uL 150-450 [facility] Laboratory - Miscellaneous t estsOrdered By: Stanley Godwin on 09-24-2023 Laboratory comment Angel (Report) Comment . [facility] Comment on above: Suggestive of Crohn' s Disease. Pattern is not conclusivefor disease behavior risk stratification. Service comment (Unsp spec) [Interp] Comment . [facility] Comment on above: Levels of Specific I gE Class Description of Class ----- < 0.10 0 Negative 0.10 - 0.31 0/I Equivocal/Low 0.32 - 0.55 I Low 0.56 - 1.40 II Moderate 1.41 - 3.90 III High 3.91 - 19.00 IV Very High 19.01 - 100.00 V Very High >100.00 Very High Laminaribioside carbohydrate IgG antibody assayOrdered By: Stanley Godwin on 09-24-2023 Laminaribioside IgG IA Qn 10 units 0-60 [facility] Comment on above: Negative:<55 Equivoc al: 55-60 Positive: >60.Previous reported result: 10 unitsEdited by: HUSSAIN on 10/18/23:1442 AMENDED REPORT 10/18/23 1442 ALCA previously reported as: 10 units Negative:<55 Equivocal: 55-60 Positive: >60 No Panel InformationOrdered By: Stanley Godwin on 09-24-2023 Addendum Document Comment . [facility] Comment on above: Protein electrophore sis scan will follow via computer,mail, or assurance engineer delivery. Anti-Gliadin IgA Antibody 3 units 0-19 [facility] Comment on above: Negative 0 - 19 Weak Positive 20 - 30 Moderate to Strong Positive >30 Anti-Gliadin IgG Antibody 2 units 0-19 [facility] Comment on above: Negative 0 - 19 Weak Positive 20 - 30 Moderate to Strong Positive >30 C-Reactive Protein Extended Range 12.90 mg/L 0.0-3.0 [facility] Comment on above: C-Reactive Protein ( CRP) provides useful information for thediagnosis, therapy and monitoring of inflammatory processesand associated diseases. For the evaluation of Relative Riskfor Cardiovascular Disease, a High Sensitivity CRP (HSCRP)should be ordered. Centromere B Antibody <0.2 AI 0.0-0.9 [facility] Endomysial IgA Antibody Negative Negative [facility] Immunoglobulin G4 8 mg/dL 2-96 [facility] Immunoglobulin M 51 mg/dL 26-217 [facility] SALAS-1 Antibody <0.2 AI 0.0-0.9 [facility] Mussel Allergen IgE Antibody <0.10 kU/L Class 0 [facility] CARRIER DRIVER Antibody <0.2 AI 0.0-0.9 [facility] Saccharomyces cerevisiae (Marvin)IgG 54 units 0-50 [facility] Comment on above: Negative: <45 Equivo marquez: 45-50 Positive: >50 Shrimp Allergen <0.10 kU/L Class 0 [facility] SM Antibody <0.2 AI 0.0-0.9 [facility] SS-A/Ro IgG Antibody < 0.2 AI 0.0-0.9 [facility] SS-B/La IgG Antibody < 0.2 AI 0.0-0.9 [facility] Tissue Transglutaminase IgG Ab 3 U/mL 0-5 [facility] Comment on above: Negative 0 - 5 Weak Positive 6 - 9 Positive >9 No Panel InformationOrdered By: Michael Lyman on 09-24-2023 Estimated Creatinine Clearance Calc 68.94 ml/min [facility] Estimated GFR (MDRD) Amer 103 mL/min >60 [facility] Comment on above: GFR Calc Estimated GFR (MDRD) Non-Af Amer 85 mL/min >60 [facility] Comment on above: Non- GFR Calc RBC Auto (Bld) [#/Vol]Ordere d By: Michael Lyman on 09-24-2023 RBC (Bld) [#/Vol] 4.66 10*6/uL 4.2-5.4 [facility] Serum DNA double strand anti body assay (units/volume)Ordered By: Stanley Godwin on 09-24-2023 DNA double strand Ab Qn (S) 1 [IU]/mL 0-9 [facility] Comment on above: Negative <5 Equivoca l 5 - 9 Positive >9 Serum IgG subclass 1 measure ment (mass/volume)Ordered By: Stanley Godwin on 09-24-2023 IgG subclass 1 (S) [Mass/Vol] 572 mg/dL 248-810 [facility] Serum IgG subclass 2 measure ment (mass/volume)Ordered By: Stanley Godwin on 09-24-2023 IgG subclass 2 (S) [Mass/Vol] 184 mg/dL 130-555 [facility] Serum IgG subclass 3 measure ment (mass/volume)Ordered By: Stanley Godwin on 09-24-2023 IgG subclass 3 (S) [Mass/Vol] 36 mg/dL 15-102 [facility] Serum Scl-70 antibody assay (units/volume)Ordered By: Stanley Godwin on 09-24-2023 SCL-70 extractable nuclear Ab Qn (S) <0.2 AI 0.0-0.9 [facility] Serum [id number] measu rement by electrophoresisOrdered By: Stanley Godwin on 09-24-2023 Alpha 1 globulin Elph [Mass/Vol] 0.2 g/dL 0.0-0.4 [facility] Alpha 1 globulin Elph [Mass/Vol] 0.8 g/dL 0.4-1.0 [facility] Serum beef IgE antibody assa y (units/volume)Ordered By: Stanley Godwin on 09-24-2023 Beef IgE Qn (S) <0.10 kU/L Class 0 [facility] Serum classic neutrophil cyt oplasmic antibody assay (units/volume)Ordered By: Stanley Godwin on 09-24-2023 Neutrophil cytoplasmic Ab.classic Qn (S) <1:20 titer Neg:<1:20 [facility] Serum codfish IgE antibody a ssay (units/volume)Ordered By: Stanley Godwin on 09-24-2023 Codfish IgE Qn (S) <0.10 kU/L Class 0 [facility] [place], [place] Serum corn IgE antibody assa y (units/volume)Ordered By: Stanley Godwin on 09-24-2023 [place] IgE Qn (S) <0.10 kU/L Class 0 [facility] Serum cow milk IgE antibody assay (units/volume)Ordered By: Stanley Godwin on 09-24-2023 Cow milk IgE Qn (S) <0.10 kU/L Class 0 [facility] [facility] [place] [place] Serum globulin measurement ( mass/volume)Ordered By: Stanley Godwin on 09-24-2023 Globulin (S) [Mass/Vol] 2.8 g/dL 2.2-3.9 [facility] Serum or plasma IgA measurem ent (mass/volume)Ordered By: Stanley Godwin on 09-24-2023 IgA [Mass/Vol] 101 mg/dL 87-352 [facility] Serum or plasma IgG measurem ent (mass/volume)Ordered By: Stanley Godwin on 09-24-2023 IgG [Mass/Vol] 882 mg/dL [id number] [facility] IgG [Mass/Vol] Not Reportable [facility] Serum or plasma beta globuli n measurement by electrophoresis (mass/volume)Ordered By: Stanley Godwin on 09-24-2023 Beta globulin Elph [Mass/Vol] 0.9 g/dL 0.7-1.3 [facility] Serum or plasma calcium elis urement (mass/volume)Ordered By: Michael Lyman on 09-24-2023 Calcium [Mass/Vol] 9.1 mg/dL 8.5-10.1 [facility] Serum or plasma creatinine m easurement (mass/volume)Ordered By: Michael Lyman on 09-24-2023 Creatinine [Mass/Vol] 0.74 mg/dL 0.55-1.02 [facility] Comment on above: The validity of the calculated GFR & GFRAA in patients over 70 years has not been determined. Clinical correlation is essential. Serum or plasma gamma globul in measurement by electrophoresis (mass/volume)Ordered By: Stanley Godwin on 09-24-2023 Gamma globulin Elph [Mass/Vol] 0.9 g/dL 0.4-1.8 [facility] Serum or plasma gastrin elis urement (mass/volume)Ordered By: Stanley Godwin on 09-24-2023 Gastrin [Mass/Vol] 20 pg/mL 0-115 [facility] Comment on above: Siemens Immulite 200 0 Immunochemiluminometric assay (ICMA)Values obtained with different assay methods or kits cannotbe used interchangeably. Results cannot be interpreted asabsolute evidence of the presence or absence of malignantdisease.Performed at: [facility] - [address] [id number] Director: Reji Caceres MD, Phone: [phone] Serum or plasma immunoelectr ophoresis interpretation (nominal result)Ordered By: Stanley Godwin on 09-24-2023 Interpretation IEP [Interp] Comment . [facility] Comment on above: No monoclonality det ected. Serum or plasma mannobioside IgG antibody assay by immunoassay (units/volume)Ordered By: Stanley Godwin on 09-24-2023 Mannobioside IgG IA Qn 15 units 0-100 [facility] Comment on above: Negative: <90 Equivo marquez: 90-100 Positive: >100 This test was developed and its performance characteristics determined by [employer]. It has not been cleared or approved by the Food and Drug Administration. The FDA has determined that such clearance or approval is not necessary. Serum or plasma thyroid stim ulating hormone (TSH) measurement (units/volume)Ordered By: Jorge L Davalos on 09-24-2023 TSH Qn 4.56 uIU/mL 0.358-3.74 [facility] Serum or plasma urea nitroge n measurement (mass/volume)Ordered By: Michael Lyman on 09-24-2023 Urea nitrogen [Mass/Vol] 12 mg/dL 7-18 [facility] Serum peanut IgE antibody as say (units/volume)Ordered By: Stanley Godwin on 09-24-2023 Peanut IgE Qn (S) <0.10 kU/L Class 0 [facility] Serum perinuclear neutrophil cytoplasmic antibody titer by immunofluorescenceOrdered By: Stanley Godwin on 09-24-2023 Neutrophil cytoplasmic Ab.perinuclear IF (S) [Titer] <1:20 titer Neg:<1:20 [facility] Comment on above: The presence of posi tive fluorescence exhibiting P-ANCA orC-ANCA patterns alone is not specific for the diagnosis ofWegener's Granulomatosis (WG) or microscopic polyangiitis.Decisions about treatment should not be based solely onANCA IFA results. The International ANCA Group Consensusrecommends follow up testing of positive sera with both AZ-3 and MPO-ANCA enzyme immunoassays. As many as 5% serumsamples are positive only by EIA. Ref. AM J Clin [id number];111:507-513. Serum pork IgE antibody assa y (units/volume)Ordered By: Stanley Godwin on 09-24-2023 Pork IgE Qn (S) <0.10 kU/L Class 0 [facility] Serum salmon IgE antibody as say (units/volume)Ordered By: Stanley Godwin on 09-24-2023 Olivet IgE Qn (S) <0.10 kU/L Class 0 [facility] Serum soybean IgE antibody a ssay (units/volume)Ordered By: Stanley Godwin on 09-24-2023 Soybean IgE Qn (S) <0.10 kU/L Class 0 [facility] Serum tissue transglutaminas e IgA antibody assay (units/volume)Ordered By: Stanley Godwin on 09-24-2023 tTG IgA Qn (S) <2 U/mL 0-3 [facility] Comment on above: Negative 0 - 3 Weak Positive 4 - 10 Positive >10 Tissue Transglutaminase (tTG) has been identified as the endomysial antigen. Studies have demonstr- ated that endomysial IgA antibodies have over 99% specificity for gluten sensitive enteropathy. Serum tuna IgE antibody assa y (units/volume)Ordered By: Stanley Godwin on 09-24-2023 Tuna IgE Qn (S) <0.10 kU/L Class 0 [facility] Serum wheat IgE antibody ass ay (units/volume)Ordered By: Stanley Godwin on 09-24-2023 Wheat IgE Qn (S) <0.10 kU/L Class 0 [facility] Serum whole egg IgE antibody assay (units/volume)Ordered By: Stanley Godwin on 09-24-2023 Whole Egg IgE Qn (S) <0.10 kU/L Class 0 [facility] Comment on above: Performed at: [address] [id number] Director: Reji Caceres MD, Phone: [phone] Thin prep Papanicolaou smear with manual screeningOrdered By: Stanley Godwin on 09-24-2023 Thin prep Papanicolaou smear with manual screening 88.0 ng/mL 0.0-101.8 [facility] Comment on above: Chromogranin A perfo rmed by [employer] KRYPTORmethodologyValues obtained with different assay methods or kits cannotbe used interchangeably.Performed at: - [facility] [id number] Director: Bhaskar Mane PhD, Phone: [phone] at: [facility] [address] [id number] Director: Reji Caceres MD, Phone: [phone] Thin prep Papanicolaou smear with manual screening 1.3 0.7-1.7 [facility] Thin prep Papanicolaou smear with manual screeningOrdered By: Jorge L Davalos on 09-24-2023 Thin prep Papanicolaou smear with manual screening 3.3 g/dL 3.2-5.0 [facility] Thin prep Papanicolaou smear with manual screening 15 U/L 15-37 [facility] Thin prep Papanicolaou smear with manual screeningOrdered By: Michael Lyman on 09-24-2023 Thin prep Papanicolaou smear with manual screening 3 5-15 [facility] Total protein bloodOrdered B y: Stanley Godwin on 09-24-2023 Protein [Mass/Vol] 6.2 g/dL 6.0-8.5 [facility] Absolute lymphocyte countOrd ered By: Hernandez Mosley on 09-21-2023 Lymphocytes Auto (Unsp spec) [#/Vol] 1.44 10*3/uL 0.83-4.51 [facility] Automated lymphocyte count a s percentage of total leukocytesOrdered By: Hernandez Mosley on 09-21-2023 Lymphocytes/100 WBC Auto (Unsp spec) 13.4 % 19-41 [facility] Basophil percentageOrdered B y: Hernandez Mosley on 09-21-2023 Basophils/100 WBC (Bld) 0.5 % 0-1 [facility] Bilirubin [Mass/Vol] 0.80 mg/dL 0.20-1.00 [facility] Comment on above: For patients on eltr ombopag therapy, use of Dimension [place] TBIL is not recommended. Chloride [Moles/Vol] 101 mmol/L 98-107 [facility] Eosinophils/100 WBC (Bld) 0.5 % 0-5 [facility] Glucose [Mass/Vol] 99 mg/dL 74-106 [facility] Hemoglobin (Bld) [Mass/Vol] 13.5 g/dL 12.0-15.0 [facility] Monocytes/100 WBC (Bld) 8.0 % 0-10 [facility] Neutrophils (Bld) [#/Vol] 8.3 10*3/uL 2.0-7.7 [facility] Neutrophils/100 WBC (Bld) 77.3 % 47-70 [facility] Potassium [Moles/Vol] 3.6 mmol/L 3.5-5.1 [facility] Protein [Mass/Vol] 7.5 g/dL 6.4-8.2 [facility] Sodium [Moles/Vol] 135 mmol/L 136-145 [facility] WBC (Bld) [#/Vol] 10.7 10*3/uL 4.4-11.0 [facility] Clostridioides difficile nuc leic acid assay by PCROrdered By: Hernandez Mosley on 09-21-2023 C. difficile DNA BROCK+probe Ql (Unsp spec) [facility] Determination of erythrocyte mean corpuscular volume (MCV)Ordered By: Hernandez Mosley on 09-21-2023 MCV (RBC) [Entitic vol] 90.5 fL 81-99 [facility] Erythrocyte distribution wid th ratioOrdered By: Hernandez Mosley 09-21-2023 Erythrocyte distribution width (RBC) [Ratio] 12.8 % 11.6-14.6 [facility] Erythrocyte distribution wid th standard deviationOrdered By: Hernandez Mosley 09-21-2023 Erythrocyte distribution width (RBC) [Entitic vol] 42.5 fL 35.1-43.9 [facility] Hematocrit Auto (Bld) [Volum e fraction]Ordered By: Hernandez Mosley on 09-21-2023 Hematocrit (Bld) [Volume fraction] 42.0 % 37-47 [facility] Immature granulocytes/100 WB C Auto (Bld)Ordered By: Hernandez Mosley 09-21-2023 Immature granulocytes/100 WBC (Bld) 0.300 % 0.0-0.9 [facility] Comment on above: IG% - Immature Granu locytes (promyelocytes, myelocytes and metamyelocytes) > 1% indicates that a LEFT SHIFT is Present. Laboratory - Chemistry and C hemistry - challengeOrdered By: Hernandez Mosley on 09-21-2023 Albumin/Globulin [Mass ratio] 1.2 {ratio} 0.9-2.4 [facility] ALP [Catalytic activity/Vol] 110 U/L 45-117 [facility] ALT [Catalytic activity/Vol] 36 U/L 13-56 [facility] CO2 [Moles/Vol] 27.0 mmol/L 21.0-32.0 [facility] Globulin (S) [Mass/Vol] 3.4 g/dL 2.2-4.2 [facility] Urea nitrogen/Creatinine [Mass ratio] 15.0 mg/mg 10-20 [facility] Laboratory - Hematology and Cell countsOrdered By: Hernandez Mosley on 09-21-2023 MCH (RBC) [Entitic mass] 29.1 pg 27.0-32.0 [facility] MCHC (RBC) [Mass/Vol] 32.1 g/dL 32-36 [facility] Nucleated RBC/100 WBC (Bld) [Ratio] 0 % 0-5 [facility] Platelet mean volume (Bld) [Entitic vol] 9.9 fL 6.2-12.0 [facility] Platelets (Bld) [#/Vol] 306 10*3/uL 150-450 [facility] Lower GI hemoglobin IA Ql (S tl)Ordered By: Hernandez Mosley on 09-21-2023 Stool Occult Blood (PIEDAD) Positive [facility] No Panel InformationOrdered By: Hernandez Mosley on 09-21-2023 Miscellaneous Test See comment [facility] Comment on above: TEST RESULTS LIMITSS tool CultureSalmonella/Shigella Screen Final reportResult 1No Salmonella or Shigella recovered.Campylobacter Culture Final reportResult 1No Campylobacter species isolated.E coli Shiga Toxin EIA Negative Negative TESTING PERFORMED AT [facility]. ORIGINAL REPORT ON FILE IN LAB CONTAINS ADDITIONAL TEST SITE INFORMATION. Estimated GFR (MDRD) Amer 104 mL/min >60 [facility] Comment on above: GFR Calc Estimated GFR (MDRD) Non-Af Amer 86 mL/min >60 [facility] Comment on above: Non- GFR Calc Ova and parasitesOrdered By: Hernandez Mosley on 09-21-2023 Ova and parasites identified LM Nom (Unsp spec) [facility] RBC Auto (Bld) [#/Vol]Ordere d By: Hernandez Mosley on 09-21-2023 RBC (Bld) [#/Vol] 4.64 10*6/uL 4.2-5.4 [facility] Serum or plasma calcium elis urement (mass/volume)Ordered By: Hernandez Mosley on 09-21-2023 Calcium [Mass/Vol] 9.1 mg/dL 8.5-10.1 [facility] Serum or plasma creatinine m easurement (mass/volume)Ordered By: Hernandez Mosley on 09-21-2023 Creatinine [Mass/Vol] 0.73 mg/dL 0.55-1.02 [facility] Comment on above: The validity of the calculated GFR & GFRAA in patients over 70 years has not been determined. Clinical correlation is essential. Serum or plasma urea nitroge n measurement (mass/volume)Ordered By: Hernandez Mosley on 09-21-2023 Urea nitrogen [Mass/Vol] 11 mg/dL 7-18 [facility] Thin prep Papanicolaou smear with manual screeningOrdered By: Hernandez Mosley on 09-21-2023 Thin prep Papanicolaou smear with manual screening 4.1 g/dL 3.2-5.0 [facility] Thin prep Papanicolaou smear with manual screening 19 U/L 15-37 [facility] Thin prep Papanicolaou smear with manual screening 7 5-15 [facility] Absolute lymphocyte countOrd ered By: Hernandez Mosley on 09-18-2023 Lymphocytes Auto (Unsp spec) [#/Vol] 1.91 10*3/uL 0.83-4.51 [facility] Automated lymphocyte count a s percentage of total leukocytesOrdered By: Hernandez Mosley on 09-18-2023 Lymphocytes/100 WBC Auto (Unsp spec) 31.3 % 19-41 [facility] Basophil percentageOrdered B y: Hernandez Mosley on 09-18-2023 Basophils/100 WBC (Bld) 0.8 % 0-1 [facility] Bilirubin [Mass/Vol] 0.30 mg/dL 0.20-1.00 [facility] Comment on above: For patients on eltr ombopag therapy, use of Dim[place] TBIL is not recommended. Chloride [Moles/Vol] 105 mmol/L 98-107 [facility] Eosinophils/100 WBC (Bld) 1.8 % 0-5 [facility] Glucose [Mass/Vol] 103 mg/dL 74-106 [facility] Comment on above: Fasting Glucose resu lt from 100 to 125 mg/dL suggests IMPAIRED HOMEOSTASIS per A.D.A. criteria. Hemoglobin (Bld) [Mass/Vol] 13.9 g/dL 12.0-15.0 [facility] Monocytes/100 WBC (Bld) 10.3 % 0-10 [facility] Neutrophils (Bld) [#/Vol] 3.4 10*3/uL 2.0-7.7 [facility] Neutrophils/100 WBC (Bld) 55.3 % 47-70 [facility] Potassium [Moles/Vol] 3.7 mmol/L 3.5-5.1 [facility] Protein [Mass/Vol] 7.9 g/dL 6.4-8.2 [facility] Sodium [Moles/Vol] 137 mmol/L 136-145 [facility] WBC (Bld) [#/Vol] 6.1 10*3/uL 4.4-11.0 [facility] Determination of erythrocyte mean corpuscular volume (MCV)Ordered By: Hernandez Mosley on 09-18-2023 MCV (RBC) [Entitic vol] 91.6 fL 81-99 [facility] Erythrocyte distribution wid th ratioOrdered By: Hernandez Mosley on 09-18-2023 Erythrocyte distribution width (RBC) [Ratio] 12.9 % 11.6-14.6 [facility] Erythrocyte distribution wid th standard deviationOrdered By: Hernandez Dimitri on 09-18-2023 Erythrocyte distribution width (RBC) [Entitic vol] 43.3 fL 35.1-43.9 [facility] Hematocrit Auto (Bld) [Volum e fraction]Ordered By: [facility] Dimitri on 09-18-2023 Hematocrit (Bld) [Volume fraction] 43.9 % 37-47 [facility] Immature granulocytes/100 WB C Auto (Bld)Ordered By: [facility] on 09-18-2023 Immature granulocytes/100 WBC (Bld) 0.500 % 0.0-0.9 [facility] Comment on above: IG% - Immature Granu locytes (promyelocytes, myelocytes and metamyelocytes) > 1% indicates that a LEFT SHIFT is Present. Laboratory - Chemistry and C hemistry - challengeOrdered By: Hernandez Mosley on 09-18-2023 Albumin/Globulin [Mass ratio] 1.0 {ratio} 0.9-2.4 [facility] ALP [Catalytic activity/Vol] 115 U/L 45-117 [facility] ALT [Catalytic activity/Vol] 33 U/L 13-56 [facility] CO2 [Moles/Vol] 25.0 mmol/L 21.0-32.0 [facility] Globulin (S) [Mass/Vol] 3.9 g/dL 2.2-4.2 [facility] Urea nitrogen/Creatinine [Mass ratio] 19.8 mg/mg 10-20 [facility] Laboratory - Hematology and Cell countsOrdered By: [facility] Dimitri 09-18-2023 MCH (RBC) [Entitic mass] 29.0 pg 27.0-32.0 [facility] MCHC (RBC) [Mass/Vol] 31.7 g/dL 32-36 [facility] Nucleated RBC/100 WBC (Bld) [Ratio] 0 % 0-5 [facility] Platelet mean volume (Bld) [Entitic vol] 10.3 fL 6.2-12.0 [facility] Platelets (Bld) [#/Vol] 324 10*3/uL 150-450 [facility] No Panel InformationOrdered By: Hernandez Mosley on 09-18-2023 Estimated GFR (MDRD) Amer 100 mL/min >60 [facility] Comment on above: GFR Calc Estimated GFR (MDRD) Non-Af Amer 83 mL/min >60 [facility] Comment on above: Non- GFR Calc RBC Auto (Bld) [#/Vol]Ordere d By: Hernandez Mosley on 09-18-2023 RBC (Bld) [#/Vol] 4.79 10*6/uL 4.2-5.4 [facility] Serum or plasma calcium elis urement (mass/volume)Ordered By: Hernandez Mosley on 09-18-2023 Calcium [Mass/Vol] 9.5 mg/dL 8.5-10.1 [facility] Serum or plasma creatinine m easurement (mass/volume)Ordered By: Hernandez Mosley on 09-18-2023 Creatinine [Mass/Vol] 0.76 mg/dL 0.55-1.02 [facility] Comment on above: The validity of the calculated GFR & GFRAA in patients over 70 years has not been determined. Clinical correlation is essential. Serum or plasma thyroid stim ulating hormone (TSH) measurement (units/volume)Ordered By: Hernandez Mosley on 09-18-2023 TSH Qn 1.21 uIU/mL 0.358-3.74 [facility] Serum or plasma urea nitroge n measurement (mass/volume)Ordered By: Hernandez Mosley on 09-18-2023 Urea nitrogen [Mass/Vol] 15 mg/dL 7-18 [facility] Thin prep Papanicolaou smear with manual screeningOrdered By: Hernandez Mosley on 09-18-2023 Thin prep Papanicolaou smear with manual screening 4.0 g/dL 3.2-5.0 [facility] Thin prep Papanicolaou smear with manual screening 20 U/L 15-37 [facility] Thin prep Papanicolaou smear with manual screening 7 5-15 [facility] Absolute lymphocyte countOrd ered By: Hernandez Mosley on 07-05-2023 Lymphocytes Auto (Unsp spec) [#/Vol] 2.32 10*3/uL 0.83-4.51 [facility] Basophil percentageOrdered B y: Hernandez Mosley on 07-05-2023 Basophils/100 WBC (Bld) 0.7 % 0-1 [facility] Bilirubin [Mass/Vol] 0.30 mg/dL 0.20-1.00 [facility] Comment on above: For patients on eltr ombopag therapy, use of Dimension [place] TBIL is not recommended. Chloride [Moles/Vol] 100 mmol/L 98-107 [facility] Cholesterol [Mass/Vol] 205 mg/dL <200 [facility] Comment on above: <200 mg/dL Desirable 200-240 mg/dL Borderline >240 mg/dL High Risk Eosinophils/100 WBC (Bld) 1.0 % 0-5 [facility] Glucose [Mass/Vol] 145 mg/dL 74-106 [facility] Comment on above: Fasting Glucose resu lt greater than or equal to 126 mg/dL suggests DIABETES MELLITUS per A.D.A. criteria. Neutrophils (Bld) [#/Vol] 5.2 10*3/uL 2.0-7.7 [facility] Neutrophils/100 WBC (Bld) 62.2 % 47-70 [facility] Potassium [Moles/Vol] 3.7 mmol/L 3.5-5.1 [facility] Protein [Mass/Vol] 7.3 g/dL 6.4-8.2 [facility] Sodium [Moles/Vol] 137 mmol/L 136-145 [facility] Triglyceride [Mass/Vol] 94 mg/dL <199 [facility] Comment on above: The drugs N-Acetylcy steine and Metamizole may falsely depress this assay.Serum Triglycerides Reference Interval Normal <150 mg/dL Borderline high 150 - 199 mg/dL High 200 - 499 mg/dL Very High > or = 500 mg/dL WBC (Bld) [#/Vol] 8.3 10*3/uL 4.4-11.0 [facility] Blood erythrocytes count (nu mber/volume)Ordered By: Hernandez Mosley on 07-05-2023 RBC (Bld) [#/Vol] 4.13 10*6/uL 4.2-5.4 [facility] Blood hemoglobin measurement (mass/volume)Ordered By: Hernandez Mosley on 07-05-2023 Hemoglobin (Bld) [Mass/Vol] 12.3 g/dL 12.0-15.0 [facility] Blood lymphocytes/100 leukoc ytesOrdered By: Hernandez Dimitri on 07-05-2023 Lymphocytes/100 WBC (Bld) 27.9 % 19-41 [facility] Blood monocytes/100 leukocyt esOrdered By: [facility] Monocytes/100 WBC (Bld) 7.0 % 0-10 [facility] Blood platelet mean volumeOr dered By: [facility] Platelet mean volume (Bld) [Entitic vol] 9.8 fL 6.2-12.0 [facility] Determination of erythrocyte mean corpuscular volume (MCV)[facility] MCV (RBC) [Entitic vol] 93.9 fL 81-99 [facility] Hematocrit Auto (Bld) [Volum e fraction]Ordered By: [facility] on 07-05-2023 Hematocrit (Bld) [Volume fraction] 38.8 % 37-47 [facility] Laboratory - Chemistry and C hemistry - challengeOrdered By: [facility] on 07-05-2023 ALP [Catalytic activity/Vol] 93 U/L 45-117 [facility] ALT [Catalytic activity/Vol] 23 U/L 13-56 [facility] CO2 [Moles/Vol] 28.0 mmol/L 21.0-32.0 [facility] Globulin (S) [Mass/Vol] 3.9 g/dL 2.2-4.2 [facility] Urea nitrogen/Creatinine [Mass ratio] 12.0 mg/mg 10-20 [facility] Laboratory - Hematology and Cell countsOrdered By: [facility] on 07-05-2023 Erythrocyte distribution width (RBC) [Entitic vol] 43.9 fL 35.1-43.9 [facility] Erythrocyte distribution width (RBC) [Ratio] 12.7 % 11.6-14.6 [facility] Immature granulocytes/100 WBC (Bld) 1.200 % 0.0-0.9 [facility] Comment on above: IG% - Immature Granu locytes (promyelocytes, myelocytes and metamyelocytes) > 1% indicates that a LEFT SHIFT is Present. MCH (RBC) [Entitic mass] 29.8 pg 27.0-32.0 [facility] Nucleated RBC/100 WBC (Bld) [Ratio] 0 % 0-5 [facility] MCHC Auto (RBC) [Mass/Vol]Or dered By: Hernandez Mosley on 07-05-2023 MCHC (RBC) [Mass/Vol] 31.7 g/dL 32-36 [facility] No Panel InformationOrdered By: Hernandez Mosley on 07-05-2023 Estimated GFR (MDRD) Amer 101 mL/min >60 [facility] Comment on above: GFR Calc Estimated GFR (MDRD) Non-Af Amer 83 mL/min >60 [facility] Comment on above: Non- GFR Calc Thyroid Stimulating Hormone (TSH) 0.67 uIU/mL 0.358-3.74 [facility] Platelets bldOrdered By: Hernandez Mosley on 07-05-2023 Platelets (Bld) [#/Vol] 537 10*3/uL 150-450 [facility] Serum or plasma albumin elis urement (mass/volume)Ordered By: Hernandez Mosley 07-05-2023 Albumin [Mass/Vol] 3.4 g/dL 3.2-5.0 [facility] Serum or plasma albumin/glob ulin mass ratioOrdered By: Hernandez Mosley 07-05-2023 Albumin/Globulin [Mass ratio] 0.9 {ratio} 0.9-2.4 [facility] Serum or plasma calcium elis urement (mass/volume)Ordered By: Hernandez Mosley 07-05-2023 Calcium [Mass/Vol] 8.7 mg/dL 8.5-10.1 [facility] Serum or plasma cholesterol in HDL measurement (mass/volume)Ordered By: Hernandez Mosley 07-05-2023 Cholesterol in HDL [Mass/Vol] 62 mg/dL >40 [facility] Comment on above: The drugs N-Acetylcy steine and Metamizole may falsely depress this assay. Reference Range HDL <40 mg/dL Low HDL Cholesterol HDL >or= 60 mg/dL High HDL Cholesterol Serum or plasma cholesterol in VLDL measurement (mass/volume)Ordered By: Hernandez Mosley 07-05-2023 Cholesterol in VLDL [Mass/Vol] 19 mg/dL 5-40 [facility] Serum or plasma creatinine m easurement (mass/volume)Ordered By: Hernandez Mosley on 07-05-2023 Creatinine [Mass/Vol] 0.75 mg/dL 0.55-1.02 [facility] Comment on above: The validity of the calculated GFR & GFRAA in patients over 70 years has not been determined. Clinical correlation is essential. Serum or plasma low density lipoprotein (LDL) cholesterol measurement (mass/volume)Ordered By: Hernandez Mosley on 07-05-2023 Cholesterol in LDL [Mass/Vol] 124 mg/dL 0-130 [facility] Serum or plasma urea nitroge n measurement (mass/volume)Ordered By: Hernandez Mosley on 07-05-2023 Urea nitrogen [Mass/Vol] 9 mg/dL 7-18 [facility] Thin prep Papanicolaou smear with manual screeningOrdered By: Hernandez Mosley on 07-05-2023 Thin prep Papanicolaou smear with manual screening 17 U/L 15-37 [facility] Thin prep Papanicolaou smear with manual screening 9 5-15 [facility] Glucose Glucometer (BldC) [M ass/Vol]Ordered By: Shabbir Birch on 06-21-2023 Glucose [Mass/Vol] 119 mg/dL 74-106 [facility] Comment on above: MANAGEMENT OF PATIEN T CARE PER NURSING PROTOCOL Absolute lymphocyte countOrd ered By: Shabbir Birch on 06-19-2023 Lymphocytes Auto (Unsp spec) [#/Vol] 1.75 10*3/uL 0.83-4.51 [facility] Basophil percentageOrdered B y: Shabbir Birch on 06-19-2023 Basophils/100 WBC (Bld) 0.7 % 0-1 [facility] Chloride [Moles/Vol] 101 mmol/L 98-107 [facility] [facility] Eosinophils/100 WBC (Bld) 0.4 % 0-5 [facility] Glucose [Mass/Vol] 99 mg/dL 74-106 [facility] Neutrophils (Bld) [#/Vol] 8.0 10*3/uL 2.0-7.7 [facility] Neutrophils/100 WBC (Bld) 74.7 % 47-70 [facility] Potassium [Moles/Vol] 3.7 mmol/L 3.5-5.1 [facility] Sodium [Moles/Vol] 136 mmol/L 136-145 [facility] WBC (Bld) [#/Vol] 10.7 10*3/uL 4.4-11.0 [facility] Blood erythrocytes count (nu mber/volume)Ordered By: Shabbir Birch on 06-19-2023 RBC (Bld) [#/Vol] 5.17 10*6/uL 4.2-5.4 [facility] Blood hemoglobin measurement (mass/volume)Ordered By: Shabbir Birch on 06-19-2023 Hemoglobin (Bld) [Mass/Vol] 15.4 g/dL 12.0-15.0 [facility] Blood lymphocytes/100 leukoc ytesOrdered By: Shabbir Birch on 06-19-2023 Lymphocytes/100 WBC (Bld) 16.3 % 19-41 [facility] Blood monocytes/100 leukocyt esOrdered By: Shabbir Birch on 06-19-2023 Monocytes/100 WBC (Bld) 7.5 % 0-10 [facility] Blood platelet mean volumeOr dered By: Shabbir Birch on 06-19-2023 Platelet mean volume (Bld) [Entitic vol] 10.1 fL 6.2-12.0 [facility] Determination of erythrocyte mean corpuscular volume (MCV)Ordered By: Shabbir Birch on 06-19-2023 MCV (RBC) [Entitic vol] 91.5 fL 81-99 [facility] Hematocrit Auto (Bld) [Volum e fraction]Ordered By: Shabbir Birch on 06-19-2023 Hematocrit (Bld) [Volume fraction] 47.3 % 37-47 [facility] INR in Blood by Coagulation assayOrdered By: Shabbir Birch on 06-19-2023 INR Coag (Bld) [Relative time] 1.0 {INR} [facility] Laboratory - Chemistry and C hemistry - challengeOrdered By: Shabbir Birch on 06-19-2023 CO2 [Moles/Vol] 29.0 mmol/L 21.0-32.0 [facility] Magnesium [Mass/Vol] 2.0 mg/dL 1.6-2.6 [facility] Urea nitrogen/Creatinine [Mass ratio] 18.5 mg/mg 10-20 [facility] Laboratory - CoagulationOrde red By: Shabbir Birch on 06-19-2023 aPTT Coag (Bld) [Time] 28.8 s 24.1-36.2 [facility] PT Coag (PPP) [Time] 12.6 s 11.7-14.9 [facility] Laboratory - Hematology and Cell countsOrdered By: Shabbir Birch on 06-19-2023 Erythrocyte distribution width (RBC) [Entitic vol] 44.7 fL 35.1-43.9 [facility] Erythrocyte distribution width (RBC) [Ratio] 13.2 % 11.6-14.6 [facility] Immature granulocytes/100 WBC (Bld) 0.400 % 0.0-0.9 [facility] Comment on above: IG% - Immature Granu locytes (promyelocytes, myelocytes and metamyelocytes) > 1% indicates that a LEFT SHIFT is Present. MCH (RBC) [Entitic mass] 29.8 pg 27.0-32.0 [facility] Nucleated RBC/100 WBC (Bld) [Ratio] 0 % 0-5 [facility] MCHC Auto (RBC) [Mass/Vol]Or dered By: Shabbir Birch on 06-19-2023 MCHC (RBC) [Mass/Vol] 32.6 g/dL 32-36 [facility] No Panel InformationOrdered By: Shabbir Birch on 06-19-2023 Estimated GFR (MDRD) Amer 92 mL/min >60 [facility] Comment on above: GFR Calc Estimated GFR (MDRD) Non-Af Amer 76 mL/min >60 [facility] Comment on above: Non- GFR Calc Fructosamine 236 umol/L 0-285 [facility] Comment on above: Published reference interval for apparently healthysubjects between age 20 and 60 is 205 - 285 umol/L and in apoorly controlled diabetic population is 228 - 563 umol/Lwith a mean of 396 umol/L.Performed at: [address] [id number] Director: Bhaskar Mane PhD, Phone: [phone] Nasal Screen MRSA/MSSA [facility] Platelets bldOrdered By: Edward Birch on 06-19-2023 Platelets (Bld) [#/Vol] 388 10*3/uL 150-450 [facility] Serum or plasma calcium elis urement (mass/volume)Ordered By: Shabbir Birch on 06-19-2023 Calcium [Mass/Vol] 9.7 mg/dL 8.5-10.1 [facility] Serum or plasma creatinine m easurement (mass/volume)Ordered By: Shabbir Birch on 06-19-2023 Creatinine [Mass/Vol] 0.81 mg/dL 0.55-1.02 [facility] Comment on above: The validity of the calculated GFR & GFRAA in patients over 70 years has not been determined. Clinical correlation is essential. Serum or plasma urea nitroge n measurement (mass/volume)Ordered By: Shabbir Birch on 06-19-2023 Urea nitrogen [Mass/Vol] 15 mg/dL 7-18 [facility] Thin prep Papanicolaou smear with manual screeningOrdered By: Shabbir Eyal on 06-19-2023 Thin prep Papanicolaou smear with manual screening 6 5-15 [facility] Whole blood hemoglobin A1c/t otal hemoglobin ratio (mass fraction)Ordered By: Shabbir Birch on 06-19-2023 HbA1c (Bld) [Mass fraction] 5.5 % 3.8-5.6 [facility] Comment on above: Normal < 5.7 % Predi abetic 5.7 - 6.4 % Diabetic >or= 6.5 % Please note range changes. Culture, urineOrdered By: Dr Jaswinder Wolfe on 10-15-2022 Bacteria identified Cx Nom (U) Pseudomonas aeruginosa [facility] Absolute lymphocyte countOrd ered By: Dr. Hernández on 10-14-2022 Lymphocytes Auto (Unsp spec) [#/Vol] 1.48 10*3/uL 0.83-4.51 [facility] Basophil percentageOrdered B y: Dr. Hernández on 10-14-2022 Basophils/100 WBC (Bld) 0.4 % 0-1 [facility] Chloride [Moles/Vol] 100 mmol/L 98-107 [facility] Eosinophils/100 WBC (Bld) 1.9 % 0-5 [facility] Glucose [Mass/Vol] 145 mg/dL 74-106 [facility] Comment on above: Fasting Glucose resu lt greater than or equal to 126 mg/dL suggests DIABETES MELLITUS per A.D.A. criteria. Neutrophils (Bld) [#/Vol] 6.9 10*3/uL 2.0-7.7 [facility] Neutrophils/100 WBC (Bld) 71.5 % 47-70 [facility] Potassium [Moles/Vol] 3.4 mmol/L 3.5-5.1 [facility] Sodium [Moles/Vol] 137 mmol/L 136-145 [facility] WBC (Bld) [#/Vol] 9.6 10*3/uL 4.4-11.0 [facility] Blood erythrocytes count (nu mber/volume)Ordered By: Dr. Hernández on 10-14-2022 RBC (Bld) [#/Vol] 3.56 10*6/uL 4.2-5.4 [facility] Blood hemoglobin measurement (mass/volume)Ordered By: Dr. Hernández on 10-14-2022 Hemoglobin (Bld) [Mass/Vol] 10.7 g/dL 12.0-15.0 [facility] Blood lymphocytes/100 leukoc ytesOrdered By: Dr. Hernández on 10-14-2022 Lymphocytes/100 WBC (Bld) 15.4 % 19-41 [facility] Blood monocytes/100 leukocyt esOrdered By: Dr. Hernández on 10-14-2022 Monocytes/100 WBC (Bld) 10.3 % 0-10 [facility] Blood platelet mean volumeOr dered By: Dr. Hernández on 10-14-2022 Platelet mean volume (Bld) [Entitic vol] 10.0 fL 6.2-12.0 [facility] Determination of erythrocyte mean corpuscular volume (MCV)Ordered By: Dr. Hernández on 10-14-2022 MCV (RBC) [Entitic vol] 95.8 fL 81-99 [facility] Hematocrit Auto (Bld) [Volum e fraction]Ordered By: Dr. Hernández on 10-14-2022 Hematocrit (Bld) [Volume fraction] 34.1 % 37-47 [facility] Laboratory - Chemistry and C hemistry - challengeOrdered By: Dr. Hernández on 10-14-2022 CO2 [Moles/Vol] 29.0 mmol/L 21.0-32.0 [facility] Urea nitrogen/Creatinine [Mass ratio] 8.3 mg/mg 10-20 [facility] Laboratory - Hematology and Cell countsOrdered By: Dr. Hernández on 10-14-2022 Erythrocyte distribution width (RBC) [Entitic vol] 45.2 fL 35.1-43.9 [facility] Erythrocyte distribution width (RBC) [Ratio] 12.8 % 11.6-14.6 [facility] Immature granulocytes/100 WBC (Bld) 0.500 % 0.0-0.9 [facility] Comment on above: IG% - Immature Granu locytes (promyelocytes, myelocytes and metamyelocytes) > 1% indicates that a LEFT SHIFT is Present. MCH (RBC) [Entitic mass] 30.1 pg 27.0-32.0 [facility] Nucleated RBC/100 WBC (Bld) [Ratio] 0 % 0-5 [facility] MCHC Auto (RBC) [Mass/Vol]Or dered By: Dr. Hernández on 10-14-2022 MCHC (RBC) [Mass/Vol] 31.4 g/dL 32-36 [facility] No Panel InformationOrdered By: Dr. Hernández on 10-14-2022 Estimated Creatinine Clearance Calc 86.10 ml/min [facility] Estimated GFR (MDRD) Amer 131 mL/min >60 [facility] Comment on above: GFR Calc Estimated GFR (MDRD) Non-Af Amer 108 mL/min >60 [facility] Comment on above: Non- GFR Calc Platelets bldOrdered By: Dr. Hernández on 10-14-2022 Platelets (Bld) [#/Vol] 278 10*3/uL 150-450 [facility] Serum or plasma calcium elis urement (mass/volume)Ordered By: Dr. Hernández on 10-14-2022 Calcium [Mass/Vol] 9.1 mg/dL 8.5-10.1 [facility] Serum or plasma creatinine m easurement (mass/volume)Ordered By: Dr. Hernández on 10-14-2022 Creatinine [Mass/Vol] 0.60 mg/dL 0.55-1.02 [facility] Comment on above: The validity of the calculated GFR & GFRAA in patients over 70 years has not been determined. Clinical correlation is essential. Serum or plasma urea nitroge n measurement (mass/volume)Ordered By: Dr. Hernández on 10-14-2022 Urea nitrogen [Mass/Vol] 5 mg/dL 7-18 [facility] Thin prep Papanicolaou smear with manual screeningOrdered By: Dr. Hernández on 10-14-2022 Thin prep Papanicolaou smear with manual screening 8 5-15 [facility] Basophil percentageOrdered B y: Dr. Wolfe on 10-13-2022 Basophil percentage 0-5 SEEN /hpf 0-5 [facility] Bilirubin Test strip Ql (U)O rdered By: Dr. Wolfe on 10-13-2022 Bilirubin Ql (U) Negative Negative [facility] COVID-19 virus antigen assay Ordered By: Dr. Wolfe on 10-13-2022 SARS-CoV-2 (COVID-19) Ag IA.rapid Ql (Resp) Not detected Not Detect [facility] Comment on above: Normal Reference Ran ge: Not DetectedMethod:(RT-PCR) real-time reverse transcriptase PCRLuminex CRUZ Instrument*The Food and Drug Administration (FDA) has issued an Emergency Use Authorization (EAU) for the CRUZ SARS-CoV-2 Assay for the rapid detection of the virus that causes COVID-19. This test has been validated, but the FDAs independent review of this validation is pending.*Negative results do not preclude infection and should not be used as the sole basis for treatment or patient management. Optimum specimen types and timing for peak viral levels during infections caused by SARS-CoV-2 have not been determined. Collection of multiple specimens from the same patient may be necessary to detect the virus. The possibility of a false negative result should be considered if the patient has clinical presentation or has had recent exposure. Ketones Test strip Ql (U)Ord ered By: Dr. Wolfe on 10-13-2022 Ketones Ql (U) 15 mg/dl Negative [facility] Mucus LM Ql (Urine sed)Order ed By: Dr. Wolfe on 10-13-2022 Mucus Ql (Urine sed) 0 SEEN /hpf [facility] Nitrite Test strip Ql (U)Ord ered By: Dr. Wolfe on 10-13-2022 Nitrite Ql (U) Negative Negative [facility] Protein Test strip Ql (U)Ord ered By: Dr. Wolfe on 10-13-2022 Protein Ql (U) 15 mg/dl Negative [facility] Squamous epithelial cells de tection in urine sediment by light microscopyOrdered By: Dr. Wolfe on 10-13-2022 Epithelial cells.squamous LM Ql (Urine sed) 0 SEEN /hpf 5-10 [facility] Urine blood detectionOrdered By: Dr. Wolfe on 10-13-2022 RBC Ql (U) Negative Negative [facility] RBC Ql (U) 0 SEEN /hpf 0-5 [facility] Urine clarityOrdered By: Dr. Wolfe on 10-13-2022 Clarity (U) Clear Clear [facility] Urine color determinationOrd ered By: Dr. Wolfe on 10-13-2022 Color (U) Yellow Yellow [facility] Urine glucose detectionOrder ed By: Dr. Wolfe on 10-13-2022 Glucose Ql (U) Normal mg/dl Normal [facility] Urine leukocyte esterase det ection by dipstickOrdered By: Dr. Wolfe on 10-13-2022 Leukocyte esterase Test strip Ql (U) Negative Negative [facility] Urine pHOrdered By: Dr. Narcisa alonso on 10-13-2022 pH (U) 7.0 [pH] 5.0 - 8.0 [facility] Urine sediment bacteria coun t by microscopy (number/high power field)Ordered By: Dr. Wolfe on 10-13-2022 Bacteria LM.HPF (Urine sed) [#/Area] 0 /[HPF] None Seen [facility] Urine specific gravity measu rementOrdered By: Dr. Wolfe on 10-13-2022 Specific gravity (U) [Rel density] 1.010 1.002-1.030 [facility] Urobilinogen Auto test strip Ql (U)Ordered By: Dr. Wolfe on 10-13-2022 Urobilinogen Ql (U) Normal mg/dl Normal [facility] Glucose Glucometer (BldC) [M ass/Vol]Ordered By: Dr. Damian on 10-11-2022 Glucose [Mass/Vol] 141 mg/dL 74-106 [facility] Comment on above: MANAGEMENT OF PATIEN T CARE PER NURSING PROTOCOL Laboratory - Chemistry and C hemistry - challengeOrdered By: Dr. Madrigal on 10-05-2022 Magnesium [Mass/Vol] 1.8 mg/dL 1.6-2.6 [facility] COVID-19 virus antigen assay Ordered By: Dr. Mosley on 09-23-2022 SARS-CoV-2 (COVID-19) Ag IA.rapid Ql (Resp) Not detected Not Detect [facility] Comment on above: Normal Reference Ran ge: Not DetectedMethod:(RT-PCR) real-time reverse transcriptase PCRLuminex KOJI Drinks Instrument*The Food and Drug Administration (FDA) has issued an Emergency Use Authorization (EAU) for the CRUZ SARS-CoV-2 Assay for the rapid detection of the virus that causes COVID-19. This test has been validated, but the FDAs independent review of this validation is pending.*Negative results do not preclude infection and should not be used as the sole basis for treatment or patient management. Optimum specimen types and timing for peak viral levels during infections caused by SARS-CoV-2 have not been determined. Collection of multiple specimens from the same patient may be necessary to detect the virus. The possibility of a false negative result should be considered if the patient has clinical presentation or has had recent exposure. No Panel InformationOrdered By: Dr. Mosley on 09-23-2022 Influenza Types A,B Direct FA (PIEDAD) [facility] RSV Ag EIAOrdered By: Dr. Jacquie mendosa on 09-23-2022 RSV Ag Immune stain Ql (Tiss) [facility] Absolute lymphocyte countOrd ered By: Dr. Mosley on 09-13-2022 Lymphocytes Auto (Unsp spec) [#/Vol] 2.17 10*3/uL 0.83-4.51 [facility] Basophil percentageOrdered B y: Dr. Mosley on 09-13-2022 Basophils/100 WBC (Bld) 0.8 % 0-1 [facility] Bilirubin [Mass/Vol] 0.60 mg/dL 0.20-1.00 [facility] Comment on above: For patients on eltr ombopag therapy, use of Dimension [place] TBIL is not recommended. Chloride [Moles/Vol] 103 mmol/L 98-107 [facility] Cholesterol [Mass/Vol] 242 mg/dL <200 [facility] Comment on above: <200 mg/dL Desirable 200-240 mg/dL Borderline >240 mg/dL High Risk Eosinophils/100 WBC (Bld) 1.1 % 0-5 [facility] Glucose [Mass/Vol] 106 mg/dL 74-106 [facility] Comment on above: Fasting Glucose resu lt from 100 to 125 mg/dL suggests IMPAIRED HOMEOSTASIS per A.D.A. criteria. Neutrophils (Bld) [#/Vol] 3.7 10*3/uL 2.0-7.7 [facility] Neutrophils/100 WBC (Bld) 55.0 % 47-70 [facility] Potassium [Moles/Vol] 3.9 mmol/L 3.5-5.1 [facility] Protein [Mass/Vol] 8.1 g/dL 6.4-8.2 [facility] Sodium [Moles/Vol] 139 mmol/L 136-145 [facility] Triglyceride [Mass/Vol] 76 mg/dL <199 [facility] Comment on above: The drugs N-Acetylcy steine and Metamizole may falsely depress this assay.Serum Triglycerides Reference Interval Normal <150 mg/dL Borderline high 150 - 199 mg/dL High 200 - 499 mg/dL Very High > or = 500 mg/dL WBC (Bld) [#/Vol] 6.7 10*3/uL 4.4-11.0 [facility] Blood erythrocytes count (nu mber/volume)Ordered By: Dr. Mosley on 09-13-2022 RBC (Bld) [#/Vol] 4.84 10*6/uL 4.2-5.4 [facility] Blood hemoglobin measurement (mass/volume)Ordered By: Dr. Mosley on 09-13-2022 Hemoglobin (Bld) [Mass/Vol] 14.7 g/dL 12.0-15.0 [facility] Blood lymphocytes/100 leukoc ytesOrdered By: Dr. Mosley on 09-13-2022 Lymphocytes/100 WBC (Bld) 32.6 % 19-41 [facility] Blood monocytes/100 leukocyt esOrdered By: Dr. Mosley on 09-13-2022 Monocytes/100 WBC (Bld) 10.2 % 0-10 [facility] Blood platelet mean volumeOr dered By: Dr. Mosley on 09-13-2022 Platelet mean volume (Bld) [Entitic vol] 10.5 fL 6.2-12.0 [facility] Determination of erythrocyte mean corpuscular volume (MCV)Ordered By: Dr. Mosley on 09-13-2022 MCV (RBC) [Entitic vol] 93.8 fL 81-99 [facility] Hematocrit Auto (Bld) [Volum e fraction]Ordered By: Dr. Mosley on 09-13-2022 Hematocrit (Bld) [Volume fraction] 45.4 % 37-47 [facility] Laboratory - Chemistry and C hemistry - challengeOrdered By: Dr. Mosley on 09-13-2022 ALP [Catalytic activity/Vol] 100 U/L 45-117 [facility] ALT [Catalytic activity/Vol] 28 U/L 13-56 [facility] CO2 [Moles/Vol] 28.0 mmol/L 21.0-32.0 [facility] Globulin (S) [Mass/Vol] 3.8 g/dL 2.2-4.2 [facility] Urea nitrogen/Creatinine [Mass ratio] 17.5 mg/mg 10-20 [facility] Laboratory - Hematology and Cell countsOrdered By: Dr. Mosley on 09-13-2022 Erythrocyte distribution width (RBC) [Entitic vol] 43.8 fL 35.1-43.9 [facility] Erythrocyte distribution width (RBC) [Ratio] 12.6 % 11.6-14.6 [facility] Immature granulocytes/100 WBC (Bld) 0.300 % 0.0-0.9 [facility] Comment on above: IG% - Immature Granu locytes (promyelocytes, myelocytes and metamyelocytes) > 1% indicates that a LEFT SHIFT is Present. MCH (RBC) [Entitic mass] 30.4 pg 27.0-32.0 [facility] Nucleated RBC/100 WBC (Bld) [Ratio] 0 % 0-5 [facility] Auto (RBC) [Mass/Vol]Or dered By: Dr. Mosley on 09-13-2022 MCHC (RBC) [Mass/Vol] 32.4 g/dL 32-36 [facility] No Panel InformationOrdered By: Dr. Mosley on 09-13-2022 Estimated GFR (MDRD) Amer 87 mL/min >60 [facility] Comment on above: GFR Calc Estimated GFR (MDRD) Non-Af Amer 72 mL/min >60 [facility] Comment on above: Non- GFR Calc Thyroid Stimulating Hormone (TSH) 1.27 uIU/mL 0.358-3.74 [facility] Vitamin D 25-Hydroxy 36.3 ng/mL [facility] Comment on above: Vitamin D 25(OH) Sta tus Range Deficiency <20 ng/mL (50nmol/L) Insufficiency 20 - 30 ng/mL (50 - 75 nmol/L) Sufficiency 30 - 100 ng/mL (75 - 250 nmol/L) Toxicity >100 ng/mL (>250 nmol/L) Platelets bldOrdered By: Dr. Mosley on 09-13-2022 Platelets (Bld) [#/Vol] 344 10*3/uL 150-450 [facility] Serum or plasma albumin elis urement (mass/volume)Ordered By: Dr. Mosley on 09-13-2022 Albumin [Mass/Vol] 4.3 g/dL 3.2-5.0 [facility] Serum or plasma albumin/glob ulin mass ratioOrdered By: Dr. Mosley on 09-13-2022 Albumin/Globulin [Mass ratio] 1.1 {ratio} 0.9-2.4 [facility] Serum or plasma calcium elis urement (mass/volume)Ordered By: Dr. Mosley on 09-13-2022 Calcium [Mass/Vol] 9.6 mg/dL 8.5-10.1 [facility] Serum or plasma cholesterol in HDL measurement (mass/volume)Ordered By: Dr. Mosley on 09-13-2022 Cholesterol in HDL [Mass/Vol] 86 mg/dL >40 [facility] Comment on above: The drugs N-Acetylcy steine and Metamizole may falsely depress this assay. Reference Range HDL <40 mg/dL Low HDL Cholesterol HDL >or= 60 mg/dL High HDL Cholesterol Serum or plasma cholesterol in VLDL measurement (mass/volume)Ordered By: Dr. Mosley on 09-13-2022 Cholesterol in VLDL [Mass/Vol] 15 mg/dL 5-40 [facility] Serum or plasma creatinine m easurement (mass/volume)Ordered By: Dr. Mosley on 09-13-2022 Creatinine [Mass/Vol] 0.86 mg/dL 0.55-1.02 [facility] Comment on above: The validity of the calculated GFR & GFRAA in patients over 70 years has not been determined. Clinical correlation is essential. Serum or plasma low density lipoprotein (LDL) cholesterol measurement (mass/volume)Ordered By: Dr. Mosley on 09-13-2022 Cholesterol in LDL [Mass/Vol] 141 mg/dL 0-130 [facility] Serum or plasma urea nitroge n measurement (mass/volume)Ordered By: Dr. Mosley on 09-13-2022 Urea nitrogen [Mass/Vol] 15 mg/dL 7-18 [facility] Thin prep Papanicolaou smear with manual screeningOrdered By: Dr. Mosley on 09-13-2022 Thin prep Papanicolaou smear with manual screening 17 U/L 15-37 [facility] Thin prep Papanicolaou smear with manual screening 8 5-15 [facility] CNPNon 08-22-2022 CNPN Telephone (VIVEK) -------- JUDY REAGAN ([id number]) 1960 F Date Time Provider Department 08/22/22 URIEL BOWER During your visit today, we recorded the following information about you: Marzena Elise RN 08/22/2022 2:35 PM Signed Patient left voicemail 08/22/2022 at 0851 Patient contacted at this time Patient requesting Dr. Bower's office to fax medical records to [employer] Patient's MRI is currently being denied and patient filed an expedited appeal Patient requesting records to be faxed to [phone] Case# [id number] Records faxed at this time per patient's request Allergies As of Date: 08/22/2022 Noted Allergy Reaction ADHESIVE TAPE (ROSINS) 06/06/2016 2 - Rash BEE STING 09/02/2019 7 - Swelling Date Reviewed: 06/06/2022 Reviewed by: Amber Guerra RN - Fully Assessed Reason for Visit: Patient Question [7727] Prescriptions as of 08/22/2022 - traMADol (ULTRAM) 50 mg tablet Take 50 mg by mouth twice daily as needed. Currently not taking while on [place] for pain - amLODIPine (NORVASC) 5 mg [...] Take 1 capsule by mouth once daily. Problem List As Of Date 08/22/2022 Noted Resolved Tobacco use disorder [F17.200] 09/19/2007 08/15/2018 FAMILY HISTORY OF CARDIOVASC DIS (ISCHEMIC) [Z8*10/17/2007 08/15/2018 HYPERTENSION BENIGN [I10] 10/17/2007 OA (osteoarthritis) of knee [M17.9] 09/02/2010 Primary localized osteoarthrosis, lower leg [M1*01/11/2011 08/15/2018 Pain in joint, lower leg [M25.569] 09/13/2011 08/15/2018 Symptomatic menopausal or female climacteric st*01/04/2012 08/15/2018 Tear of lateral cartilage or meniscus of knee, *06/05/2012 08/15/2018 Lower abdominal pain [R10.30] 04/26/2013 Vaginal atrophy [N95.2] 10/15/2013 Generalized osteoarthrosis, unspecified site [M*10/25/2013 Other complications due to internal joint prost*10/25/2013 Knee joint replacement by other means [Z96.659] 10/25/2013 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] 01/22/2014 Duodenal stricture [K31.5] 03/28/2016 PUD (peptic ulcer disease) [K27.9] 03/28/2016 Acute GI bleeding [K92.2] 06/13/2016 08/15/2018 Vitamin D deficiency [E55.9] 08/08/2017 H/O diverticulitis of colon [Z87.19] 08/15/2018 Psoriatic arthritis (HCC) [L40.50] 08/15/2018 Anxiety and depression [F41.9, F32.A] 05/30/2022 Former smoker [Z87.891] 05/30/2022 Encounter Status:Closed by MARZENA ELISE RN on 08/22/22 Normal [facility] No Panel InformationOrdered By: Dr. Damian on 08-12-2022 Nasal Screen MRSA/MSSA [facility] HIV 1 and HIV-2 antibody ass ay with HIV-1 p24 antigen detectionOrdered By: Dr. Damian on 08-11-2022 HIV 1+2 Ab+HIV1 p24 Ag IA Ql Non-Reactive Nonreactive [facility] Laboratory - Chemistry and C hemistry - challengeOrdered By: Dr. Roach on 08-11-2022 Magnesium [Mass/Vol] 2.1 mg/dL 1.6-2.6 [facility] No Panel InformationOrdered By: Dr. Damian on 08-11-2022 Hepatitis A Antibody Total Negative Negative [facility] Comment on above: Performed at: [address] [id number] Director: Bhaskar Mane PhD, Phone: [phone] Hepatitis C Antibody Non-Reactive Nonreactive [facility] Comment on above: Non Reactive: < 0.8 Equivocal: >/= 0.8 to < 1.0 Reactive: >/= 1.0The CDC recommends that a reactive/equivocal HCV antibody result be followed up by the HCV Nucleic Acid Amplificationtest ([id number]) Serum hepatitis B virus surf magaly antibody IgG detectionOrdered By: Dr. Damian on 08-11-2022 HBV surface IgG Ql (S) Reactive [facility] Comment on above: Non Reactive: Incons istent with immunity less than <10 mIU/mL Reactive: Consistent with immunity greater than or equal to 10 mIU/mL Absolute lymphocyte countOrd ered By: Dr. Mosley on 08-04-2022 Lymphocytes Auto (Unsp spec) [#/Vol] 2.41 10*3/uL 0.83-4.51 [facility] Basophil percentageOrdered B y: Dr. Mosley on 08-04-2022 Basophils/100 WBC (Bld) 0.8 % 0-1 [facility] Bilirubin [Mass/Vol] 0.60 mg/dL 0.20-1.00 [facility] Comment on above: For patients on eltr ombopag therapy, use of Dimension [place] TBIL is not recommended. Chloride [Moles/Vol] 101 mmol/L 98-107 [facility] Cholesterol [Mass/Vol] 246 mg/dL <200 [facility] Comment on above: <200 mg/dL Desirable 200-240 mg/dL Borderline >240 mg/dL High Risk Eosinophils/100 WBC (Bld) 0.6 % 0-5 [facility] Glucose [Mass/Vol] 80 mg/dL 74-106 [facility] Neutrophils (Bld) [#/Vol] 4.5 10*3/uL 2.0-7.7 [facility] Neutrophils/100 WBC (Bld) 58.2 % 47-70 [facility] Potassium [Moles/Vol] 3.5 mmol/L 3.5-5.1 [facility] Protein [Mass/Vol] 7.8 g/dL 6.4-8.2 [facility] Sodium [Moles/Vol] 136 mmol/L 136-145 [facility] Triglyceride [Mass/Vol] 143 mg/dL <199 [facility] Comment on above: The drugs N-Acetylcy steine and Metamizole may falsely depress this assay.Serum Triglycerides Reference Interval Normal <150 mg/dL Borderline high 150 - 199 mg/dL High 200 - 499 mg/dL Very High > or = 500 mg/dL WBC (Bld) [#/Vol] 7.8 10*3/uL 4.4-11.0 [facility] Blood erythrocytes count (nu mber/volume)Ordered By: Dr. Mosley on 08-04-2022 RBC (Bld) [#/Vol] 4.36 10*6/uL 4.2-5.4 [facility] Blood hemoglobin measurement (mass/volume)Ordered By: Dr. Mosley on 08-04-2022 Hemoglobin (Bld) [Mass/Vol] 13.7 g/dL 12.0-15.0 [facility] Blood lymphocytes/100 leukoc ytesOrdered By: Dr. Mosley on 08-04-2022 Lymphocytes/100 WBC (Bld) 30.9 % 19-41 [facility] Blood monocytes/100 leukocyt esOrdered By: Dr. Mosley on 08-04-2022 Monocytes/100 WBC (Bld) 9.1 % 0-10 [facility] Blood platelet mean volumeOr dered By: Dr. Mosley on 08-04-2022 Platelet mean volume (Bld) [Entitic vol] 10.3 fL 6.2-12.0 [facility] Determination of erythrocyte mean corpuscular volume (MCV)Ordered By: Dr. Mosley on 08-04-2022 MCV (RBC) [Entitic vol] 92.9 fL 81-99 [facility] Hematocrit Auto (Bld) [Volum e fraction]Ordered By: Dr. Mosley on 08-04-2022 Hematocrit (Bld) [Volume fraction] 40.5 % 37-47 [facility] INR in Blood by Coagulation assayOrdered By: Dr. Mosley on 08-04-2022 INR Coag (Bld) [Relative time] 1.0 {INR} [facility] Laboratory - Chemistry and C hemistry - challengeOrdered By: Dr. Mosley on 08-04-2022 ALP [Catalytic activity/Vol] 98 U/L 45-117 [facility] ALT [Catalytic activity/Vol] 34 U/L 13-56 [facility] CO2 [Moles/Vol] 31.0 mmol/L 21.0-32.0 [facility] Globulin (S) [Mass/Vol] 3.7 g/dL 2.2-4.2 [facility] Urea nitrogen/Creatinine [Mass ratio] 15.2 mg/mg 10-20 [facility] - CoagulationOrde red By: Dr. Mosley on 08-04-2022 PT Coag (PPP) [Time] 13.2 s 11.7-14.9 [facility] Laboratory - Hematology and Cell countsOrdered By: Dr. Mosley on 08-04-2022 Erythrocyte distribution width (RBC) [Entitic vol] 43.2 fL 35.1-43.9 [facility] Erythrocyte distribution width (RBC) [Ratio] 12.6 % 11.6-14.6 [facility] Immature granulocytes/100 WBC (Bld) 0.400 % 0.0-0.9 [facility] Comment on above: IG% - Immature Granu locytes (promyelocytes, myelocytes and metamyelocytes) > 1% indicates that a LEFT SHIFT is Present. MCH (RBC) [Entitic mass] 31.4 pg 27.0-32.0 [facility] Nucleated RBC/100 WBC (Bld) [Ratio] 0 % 0-5 [facility] MCHC Auto (RBC) [Mass/Vol]Or dered By: Dr. Mosley on 08-04-2022 MCHC (RBC) [Mass/Vol] 33.8 g/dL 32-36 [facility] No Panel InformationOrdered By: Dr. Mosley on 08-04-2022 Estimated GFR (MDRD) Amer 106 mL/min >60 [facility] Comment on above: GFR Calc Estimated GFR (MDRD) Non-Af Amer 87 mL/min >60 [facility] Comment on above: Non- GFR Calc Thyroid Stimulating Hormone (TSH) 0.91 uIU/mL 0.358-3.74 [facility] Platelets bldOrdered By: Dr. Mosley on 08-04-2022 Platelets (Bld) [#/Vol] 337 10*3/uL 150-450 [facility] Serum or plasma albumin elis urement (mass/volume)Ordered By: Dr. Mosley on 08-04-2022 Albumin [Mass/Vol] 4.1 g/dL 3.2-5.0 [facility] Serum or plasma albumin/glob ulin mass ratioOrdered By: Dr. Mosley on 08-04-2022 Albumin/Globulin [Mass ratio] 1.1 {ratio} 0.9-2.4 [facility] Serum or plasma calcium elis urement (mass/volume)Ordered By: Dr. Mosley on 08-04-2022 Calcium [Mass/Vol] 9.3 mg/dL 8.5-10.1 [facility] Serum or plasma cholesterol in HDL measurement (mass/volume)Ordered By: Dr. Mosley on 08-04-2022 Cholesterol in HDL [Mass/Vol] 82 mg/dL >40 [facility] Comment on above: The drugs N-Acetylcy steine and Metamizole may falsely depress this assay. Reference Range HDL <40 mg/dL Low HDL Cholesterol HDL >or= 60 mg/dL High HDL Cholesterol Serum or plasma cholesterol in VLDL measurement (mass/volume)Ordered By: Dr. Mosley on 08-04-2022 Cholesterol in VLDL [Mass/Vol] 29 mg/dL 5-40 [facility] Serum or plasma creatinine m easurement (mass/volume)Ordered By: Dr. Mosley on 08-04-2022 Creatinine [Mass/Vol] 0.72 mg/dL 0.55-1.02 [facility] Comment on above: The validity of the calculated GFR & GFRAA in patients over 70 years has not been determined. Clinical correlation is essential. Serum or plasma low density lipoprotein (LDL) cholesterol measurement (mass/volume)Ordered By: Dr. Mosley on 08-04-2022 Cholesterol in LDL [Mass/Vol] 135 mg/dL 0-130 [facility] Serum or plasma urea nitroge n measurement (mass/volume)Ordered By: Dr. Mosley on 08-04-2022 Urea nitrogen [Mass/Vol] 11 mg/dL 7-18 [facility] Thin prep Papanicolaou smear with manual screeningOrdered By: Dr. Mosley on 08-04-2022 Thin prep Papanicolaou smear with manual screening 22 U/L 15-37 [facility] Thin prep Papanicolaou smear with manual screening 4 5-15 [facility] ANES POSTPROC EVALon 11-14-2 022 ANES POSTPROC EVAL HNO ID: [id number] Author: Kris Najera MD Service: Anesthesiology Author Type: Anesthesiologist Type: Anesthesia Postprocedure Evaluation Filed: 06/06/2022 10:30 AM Note Text: POST ANESTHESIA EVALUATION NOTE : 1960 Procedure Summary Date: 06/06/22 Room / Location: [place] OR02 / [place] Anesthesia Start: 737 Anesthesia Stop: 815 Procedure: INJECT ANKLE (Right: Foot) Diagnosis: Acquired hallux limitus of right foot (Acquired hallux limitus of right foot [M20.5X1]) Surgeons: Yumiko Welsh Responsible Provider: Kris Najera MD Anesthesia Type: MAC ASA Status: 3 Anesthesia Type: MAC Last Vitals Vitals Value Taken Time BP 130/80 06/06/22 0845 Temp 36.7 ?C (98.1 ?F) 06/06/22 0814 Pulse 57 06/06/22 0854 Resp 23 06/06/22 0854 SpO2 98 % 06/06/22 0854 Vitals shown include unvalidated device data. Post Anesthesia Patient Status Patient Evaluation: PACU. PACU/ICU Patient Condition: stable. Anticipated Disposition: phase 2 then home. Neurological Status: aware and responsive. Pulmonary Status: breathing comfortably on room air Airway Control: returned to baseline unsupported. Cardiovascular Status: stable. Pain Management: clinically adequate - multimodal analgesia pain management approach Postoperative Hydration: acceptable. Intraoperative Events: no significant anesthesia events Recommendation: continue current plan of care. Anesthesia Observations No Documentation SIGNATURE: Kris Najera MD PATIENT NAME: Judy Reagan DATE: June 06, 2022 TIME: 10:29 AM CSN: [id number] [facility] ANES PRE-OPon 06-06-2022 ANES PRE-OP HNO ID: [id number] Author: Kris Najera MD Service: Anesthesiology Author Type: Anesthesiologist Type: Anesthesia Preprocedure Evaluation Filed: 06/06/2022 6:59 AM Note Text: ANESTHESIOLOGY DAY OF SURGERY NOTE : 1960 Procedure Information Date/Time: 06/06/2230 Procedure: INJECT ANKLE (Right: Foot) [place]02 [place] Surgeons: Yumiko Welsh Estimated body mass index is 28.67 kg/m? as calculated from the following: Height as of 05/30/22: 162.6 cm (5' 4). Weight as of 05/30/22: 75.8 kg (167 lb). Most recent hematocrit and potassium results: Hematocrit 44.5 07/31/2020 Potassium 4.4 07/31/2020 Relevant Problems CARDIO (+) HYPERTENSION BENIGN GI (+) PUD (peptic ulcer disease) NEURO-PSYCH (+) H/O diverticulitis of colon Other (+) Psoriatic arthritis (HCC) I - PHYSICAL EVALUATION AIRWAY Patient intubated: No. Tracheostomy tube not present Mallampati: II. TM distance: >3 FB. Neck ROM: full ROM without neurological symptoms. Mouth opening: adequate. Short neck: no. Thick neck: no Plummer present: no Additional exam findings: no II - ANESTHESIA PLAN ASA Score: 3 Anesthetic Plan: MAC NPO Status: adequate Anesthetic plan additional comments: GA backup. Beta Tresa Monitoring Plan Monitoring plan: standard ASA. Post Procedure Analgesic Plan Postoperative analgesic plan: parenteral or oral opioids and multimodal analgesia. Patient / Surrogate agrees to blood products: blood products not planned Significant changes in the patient condition since the History and Physical, not otherwise documented in primary service progress note: no. Vitals Value Taken Time BP 200/113 06/06/22 0644 Pulse Resp 16 06/06/22 0644 Temp 36.7 ?C (98.1 ?F) 06/06/22 0644 SpO2 100 % 06/06/22 0644 Facility-Administered Medications as of 06/06/2022 Medication Dose Route Frequency - lidocaine 10 mg/mL (1 %) 1-2 mg injection (XYLOCAINE) 0.1-0.2 mL INTRADERMAL PRN - lactated ringers iv infusion 5-30 mL/hr INTRAVENOUS CONTINUOUS - NaCl 0.9% iv flush bag 20 mL INTRAVENOUS PRN Outpatient Medications as of 06/06/2022 Medication Sig - traMADol (ULTRAM) 50 mg tablet Take 50 mg by mouth twice daily as needed. Currently not taking while on [place] for pain - amLODIPine (NORVASC) 5 mg tablet Take 5 mg by mouth once daily. - ergocalciferol, vitamin D2, (DRISDOL) 50,000 unit [...] Take 1 capsule by mouth once daily. - methotrexate 2.5 mg tablet Take 12.5 mg by mouth every Monday. I have interviewed and examined the patient. I have reviewed the medical record and/or the pre-anesthesia evaluation, pertinent labs, and test results. This contains updated information obtained within 48 hours of Surgery/Procedure. SIGNATURE: Kris Najera MD PATIENT NAME: Judy Reagan DATE: June 06, 2022 TIME: 6:58 AM CSN: [id number] [facility] HISTORY PHYSICALon 2 HISTORY PHYSICAL HNO ID: [id number] Author: Yumiko Welsh Service: ? Author Type: Physician Type: HANDP Filed: 06/06/2022 7:10 AM Note Text: UPDATED HISTORY AND PHYSICAL EXAMINATION SERVICE DATE: 06/06/2022 SERVICE TIME: 7:02 PHYSICAL EXAM MUST BE COMPLETED ON ADMISSION The History and Physical (completed in the past 30 days) has been reviewed and the patient has been examined. The contents accurately reflect the patient's condition with the following additions or revisions since the HANDP was completed. Examination indicates no changes. This HANDP can be found in the Electronic Medical Record dated 05/30/22 Patient continues to have pain in right 1st mtpj. An attempted injection was done in the past in the office but was unsuccessful due to severe narrowing of the joint. She has severe arthritic pain in right 1st mtpj. She is interested in injection. I discussed risks of procedure not limited to infection, pain, swelling, bleeding, tendon or ligament injury, cartilage injury. If pain returns, could consider fusion. SIGNATURE: Yumiko Welsh DPM PATIENT NAME: Judy Reagan DATE: June 06, 2022 TIME: 7:02 AM [facility] NURSING PROGon 06-06-2022 NURSING PROG HNO ID: [id number] Author: Hattie Toledo, RN Service: Nursing Author Type: Registered Nurse Type: Nursing Progress Note Filed: 06/06/2022 8:51 AM Note Text: Other: spoke with via telephone, pt to continue all her meds at their normal times and doses on D/C [facility] OPERATIVE NOon 06-06-2022 OPERATIVE NO HNO ID: [id number] Author: Yumiko Welsh Service: ? Author Type: Physician Type: Operative Report Filed: 06/06/2022 10:51 AM Note Text: OPERATIVE/PROCEDURE REPORT LOG ID: [id number] SURGERY/PROCEDURE DATE: 06/06/2022 INCISION/PROCEDURE START TIME: 7:58 AM INCISION CLOSE/PROCEDURE END TIME: 8:07 AM SURGEON(S)/PROCEDURALIST (S) AND GLASS MOULD CLEANER(S): Surgeon(s) and Role: * Yumiko Welsh - Primary * Catrachito Kimbrough DPM - Resident - Assisting No Additional Staff SURGERY/PROCEDURE(S): Xray guided injection, right 1st mtpj ANESTHESIA: Monitored Anesthesia Care SURGERY/PROCEDURE DETAILS: patient is a 62 year old female who complains of pain to her right great toe joint. The pain is exacerbated with walking. She has treated this pain conservatively with over the counter pain relievers, inserts and shoe modifications. In addition to these treatments, she had an attempted injection in the joint in the office setting but due to swelling and joint space narrowing, no injection was able to be administered. We discussed proceeding with injection to the first mtpj under xray guide. I discussed risks of the procedure not limited to infection, pain, swelling, bleeding, tendon or ligament injury, cartilage damage, avascular necrosis. She understands that the pain may return and if this does occur, joint fusion is an alternative option. Patient consents to proceed. Patient was transferred to the operating room and placed on the operating room table in the supine position. She was identified by name and procedure. She was placed under sedation and the right foot was prepped and draped in the usual aseptic technique. A time out was performed. Attention was then performed to the right foot. Using xray as a guide, the right 1st mtpj was located and marked. An injection consisting of 0.5 cc of kenalog, 0.5 cc of dexamethasone and 0.5 cc of marcaine plain was successfully injected to the right 1st mtpj. Due to possible adhesive allergy, 2x2 guaze and coban was applied to the right foot. Patient was awakened and found to be in stable condition. She was transferred to pacu in stable condition. She noted improvement and reduction in pain. She was later discharged once discharge criteria met. PRE-OP/PRE-PROCEDURE DIAGNOSIS: hallux rigidus, right foot POST-OP/POST-PROCEDURE DIAGNOSIS: Same as Preop ESTIMATED BLOOD LOSS: 0 ml SPECIMENS: None IMPLANTABLE DEVICES: NONE DRAINS: None COMPLICATIONS: None PARTICIPATION IN SURGERY/PROCEDURE: I/primary surgeon/proceduralist performed the procedure with assistance. SIGNATURE: Yumiko Welsh DPM PATIENT NAME: Judy Reagan DATE: June 06, 2022 TIME: 10:42 AM [facility] XR FLUOROSCOPYon 06-06-2022 XR FLUOROSCOPY * * *Final Report* * * DATE OF EXAM: Jun 06 2022 8:38AM MDR [id number] - XR FLUOROSCOPY / PROCEDURE REASON: INJECT ANKLE- RIGHT * * * * Physician Interpretation * * * * PROCEDURE: XR FLUOROSCOPY HISTORY: Right first metatarsophalangeal joint pain. VIEWS: 1 AP right forefoot fluoroscopic spot image(s) stored in a permanent archive. IMPRESSION: Intraoperative fluoroscopy provided during interventional procedure. Needle placement at right first metatarsophalangeal joint. See operative report for further details. Fluoroscopic Radiation Summary: Plane A, Air Kerma: 13.2 mGy Dose Area Product (DAP): Fluoro time: 0:34 min:sec Yarn Comber: REBECCA Transcribe Date/Time: Jun 06 2022 9:06A Dictated by : Vandana ESTRADA MD This examination was interpreted and the report reviewed and electronically signed by: Vandana ESTRADA MD on Jun 06 2022 9:09AM EST [id number] [facility] HISTORY PHYSICALon HISTORY PHYSICAL HNO ID: [id number] Author: Susana Leyva APRN.FLO Service: ? Author Type: Nurse Practitioner Type: HANDP Filed: 05/30/2022 2:52 PM Note Text: HISTORY AND PHYSICAL EXAMINATION SERVICE DATE: 05/30/2022 SERVICE TIME: 2:51 PM PRIMARY CARE PHYSICIAN: Hernandez Mosley MD REASON FOR VISIT: Judy Reagan is a 62 year old female who is scheduled for Procedure(s): INJECT ANKLE (Right) at the request of Dr. Yumiko Welsh for consultation. My final recommendation will be communicated back to the requesting physician by way of shared medical record or letter. Subjective The patient has the following: ACTIVE PROBLEM LIST HYPERTENSION BENIGN Oa (Osteoarthritis) of Knee Lower Abdominal Pain Vaginal Atrophy Generalized Osteoarthrosis, Unspecified Site Other Complications Due to Internal Joint Prosthesis Knee Joint Replacement By Other Means S/P Revision of Total Knee Duodenal Stricture Pud (Peptic Ulcer Disease) Vitamin D Deficiency H/O Diverticulitis of Colon Psoriatic Arthritis (Hcc) Anxiety and Depression Former Smoker COVID-19 Immunization Status Overdue - COVID-19 VACCINE (3 - Pfizer risk series) Overdue since 11/24/2020 10/27/2020 Imm Admin: COVID-19 original vaccine, age 12+ yr, monovalent (PFIZER-BIONTECH - PURPLE TOP) 10/05/2020 Imm Admin: COVID-19 vaccine, age 12+ yr (PFIZER-BIONTECH - PURPLE TOP) CHIEF COMPLAINT: Pre-op exam HPI: SB is a 62 yo seen for PAC due to scheduled above surgery because acquire hallux rigidus of right foot. 05/18/2022 Dr. Welsh HPI Patient presents to clinic for evaluation [...] Continuous Intervention/Comfort measure: Medication steroid, voltaren gel REVIEW OF SYSTEMS: General: No weight loss, malaise or fevers. Neurological: No history of TIA's, stroke, MAINTENANCE OPERATOR tumor, impaired sensorium, hemiplegia, paraplegia or quadraplegia. No neurological symptoms or problems. Respiratory: +former smoker 0.5ppd/20years. No history of current cough or dyspnea, or pneumonia in the past 6 weeks. No history of respiratory/pulmonary symptoms or problems. Cardiovascular: Positive for: hypertension (on rx) GI: Positive for: GERD and PUD (hx, on rx) Negative for: abdominal pain, dysphagia, hepatitis, irritable bowel syndrome, inflammatory bowel disease, liver disease, nausea, pancreatitis, vomiting and ETOH >2 drinks/day. : No history of dysuria, frequency or incontinence, stones or chronic kidney disease. No difficulty urinating, nocturia > 1 time per night or hematuria. 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 Endocrine: No history of diabetes. Has not taken steroids within the past 30 days. No history of endocrinological symptoms or problems. Hematology: No history of bleeding or clotting disorder. Patient is not taking anti-coagulation or platelet medications. No history of hematological symptoms or problems. Oncology: No history of CA metastasis, chemo within 30 days, or radiotherapy within 90 days. No history of oncological symptoms or problems. Psych: Positive for: anxiety (on rx) and depression (on rx). Musculoskeletal: See HPI. Positive for: rheumatoid arthritis (PCP mananging currently due to recent [place] [facility]). Skin: +psoriasis, on rx PAST MEDICAL HISTORY Diagnosis Date Abdominal pain, left lower quadrant Adenomyosis Arthritis Osteoarthritis of knee's Diverticulosis of colon (without mention of hemorrhage) Essential hypertension, benign 1997 Generalized anxiety disorder Due to menopausal sx's PAST SURGICAL HISTORY Procedure Laterality Date ANESTH, [...] HISTORY Problem Relation Age of Onset Breast C (more content not included)... Normal [facility] 05-19-2022 CNPN Telephone (PODIWS) -------- JUDY REAGAN ([id number]) 1960 F Date Time Provider Department 05/19/22 YUMIKO WELSH PODIWS During your visit today, we recorded the following information about you: Rosa Greenberg RN 05/19/2022 11:16 AM Signed Left patient Vm to contact office and give surgical date. Patient scheduled for XR guided injection of R 1st MTPJ on 06/06/22 at [facility]. Patient will need a month follow up post injection scheduled when she returns call. Mavis Russell LPN 05/19/2022 11:22 AM Signed Patient called. Verified name and date of . Transferred to nurseKitty, in podiatry. Mavis Greenberg RN 05/19/2022 11:31 AM Signed Patient notified of surgical date. Follow up scheduled. Surgical confirmation letter sent to patient via [employer] message. Allergies As of Date: 05/19/2022 Noted Allergy Reaction ADHESIVE TAPE (ROSINS) 06/06/2016 2 - Rash BEE STING 09/02/2019 7 - Swelling Date Reviewed: 05/18/2022 Reviewed by: Rosa Greenberg RN - Fully Assessed Reason for Visit: Schedule Surgery [1330] Primary Visit Diagnosis:Acquired hallux limitus of right foot [M20.5X1] Order(s):SURGICAL REQUEST - ELECTIVE (02/2020) [[id number]] Order #: [id number]: 1 Prescriptions as of 05/19/2022 - methylPREDNISolone (MEDROL, AMIRA,) 4 mg Dose-Pack Take 1 tablet by mouth as directed. As directed on package - traMADol (ULTRAM) 50 mg tablet Take 50 mg by mouth twice daily as needed. Currently not taking while on [place] for pain - amLODIPine (NORVASC) 5 mg [...] Take 1 capsule by mouth once daily. Problem List As Of Date 05/19/2022 Noted Resolved Tobacco use disorder [F17.200] 09/19/2007 08/15/2018 FAMILY HISTORY OF CARDIOVASC DIS (ISCHEMIC) [Z8*10/17/2007 08/15/2018 HYPERTENSION BENIGN [I10] 10/17/2007 OA (osteoarthritis) of knee [M17.9] 09/02/2010 Primary localized osteoarthrosis, lower leg [M1*01/11/2011 08/15/2018 Pain in joint, lower leg [M25.569] 09/13/2011 08/15/2018 Symptomatic menopausal or female climacteric st*01/04/2012 08/15/2018 Tear of lateral cartilage or meniscus of knee, *06/05/2012 08/15/2018 Lower abdominal pain [R10.30] 04/26/2013 Vaginal atrophy [N95.2] 10/15/2013 Generalized osteoarthrosis, unspecified site [M*10/25/2013 Other complications due to internal joint prost*10/25/2013 Knee joint replacement by other means [Z96.659] 10/25/2013 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] 01/22/2014 Duodenal stricture [K31.5] 03/28/2016 PUD (peptic ulcer disease) [K27.9] 03/28/2016 Acute GI bleeding [K92.2] 06/13/2016 08/15/2018 Vitamin D deficiency [E55.9] 08/08/2017 H/O diverticulitis of colon [Z87.19] 08/15/2018 Psoriatic arthritis (HCC) [L40.50] 08/15/2018 Letter Text Encounter Status:Closed by ROSA GREENBERG RN on 05/19/22 [facility] CNOVon 05-18-2022 CNOV Office Visit (PODIWS ) -------- JUDY REAGAN ([id number]) 1960 F Date Time Provider Department 05/18/22 4:00 PM YUMIKO WELSH PODIWS During your visit today, we recorded the following information about you: Rosa Greenberg RN 05/18/2022 10:56 PM Signed AMB ROOMING INTAKE FLOWSHEET DATA Risk Screening [...] shoes and states they have also helped. Yumiko Welsh DPM 05/18/2022 10:56 PM Signed Initial Podiatric Office Visit: Chief Complaint: This [...] (without mention of hemorrhage) Essential hypertension, benign 1998 Generalized anxiety disorder Due to menopausal sx's Current Outpatient Medications Medication Sig traMADol (ULTRAM) 50 mg tablet Take 50 mg by mouth twice daily as needed. Currently not taking while on [place] for pain amLODIPine (NORVASC) 5 mg tablet [...] HISTORY OF 08/2005 arthroscopic knee surgery by Dr.Logee - right knee PAST SURGICAL HISTORY OF Left 2013 partial knee replacement TOTAL ABDOMINAL HYSTERECT W/WO [...] abdominal discomfort, blood in stools or black stoo (more content not included)... Normal [facility] XR FOOT 3V AP/LAT/OBL RTon 1 XR FOOT 3V AP/LAT/OBL RT * * *Final Repo rt* * * DATE OF EXAM: May 18 2022 5:14PM [id number] - XR FOOT 3V AP/LAT/OBL RT / PROCEDURE REASON: Hallux limitus, acquired, unspecified laterality * * * * Physician Interpretation * * * * Examination: XR FOOT 3V AP/LAT/OBL RT History: Hallux limitus, acquired, unspecified laterality Technique: XR FOOT 3V AP/LAT/OBL RT Comparison: 08/11/2021 RESULT: 3 views of the right foot reveal large plantar calcaneal enthesophyte. Small enthesophyte at the Achilles insertion. No focal bony abnormality or fracture. Normal alignment. Normal mineralization. Mild degenerative changes involving the metatarsophalangeal joints, proximal and distal interphalangeal joints IMPRESSION: ENTHESOPHYTES. MILD DEGENERATIVE CHANGES. NO ACUTE FRACTURE Yarn Comber: [facility] Transcribe Date/Time: May 20 2022 3:03P Dictated by : IVORY SARMIENTO MD This examination was interpreted and the report reviewed and electronically signed by: IVORY SARMIENTO MD on May 20 2022 3:06PM EST [id number] Normal [facility] XR FOOT GENERAL 3V AP/LAT/OB L Toni 05-18-2022 [facility] [place] 05-04-2022 YAMILKA Telephone (PODIWS) -------- JUDY REAGAN ([id number]) 1960 F Date Time Provider Department 05/04/22 YUMIKO WELSHS During your visit today, we recorded the following information about you: Racquel Barkley LPN 05/04/2022 9:37 AM Signed Patient called asking if could have another Right big toe injection, d/t swelling and pain. Please call patient back. Thank you. Judy#[phone] Zonia Bernardo LPN 05/04/2022 2:11 PM Signed Called patient and scheduled her an appointment on 05/18/2022 at 4 pm to discuss receiving another injection. Zonia Bernardo LPN Allergies As of Date: 05/04/2022 Noted Allergy Reaction ADHESIVE TAPE (ROSINS) 06/06/2016 2 - Rash BEE STING 09/02/2019 7 - Swelling Date Reviewed: 05/02/2022 Reviewed by: Jesus Alberto Harris APRN.[employer] - Fully Assessed Reason for Visit: Patient Question [6949] Cmt: Right Big toe Prescriptions as of 05/19/2022 - methylPREDNISolone (MEDROL, AMIRA,) 4 mg Dose-Pack Take 1 tablet by mouth as directed. As directed on package - traMADol (ULTRAM) 50 mg tablet Take 50 mg by mouth twice daily as needed. Currently not taking while on [place] for pain - amLODIPine (NORVASC) 5 mg [...] Take 1 capsule by mouth once daily. Problem List As Of Date 05/04/2022 Noted Resolved Tobacco use disorder [F17.200] 09/19/2007 08/15/2018 FAMILY HISTORY OF CARDIOVASC DIS (ISCHEMIC) [Z8*10/17/2007 08/15/2018 HYPERTENSION BENIGN [I10] 10/17/2007 OA (osteoarthritis) of knee [M17.9] 09/02/2010 Primary localized osteoarthrosis, lower leg [M1*01/11/2011 08/15/2018 Pain in joint, lower leg [M25.569] 09/13/2011 08/15/2018 Symptomatic menopausal or female climacteric st*01/04/2012 08/15/2018 Tear of lateral cartilage or meniscus of knee, *06/05/2012 08/15/2018 Lower abdominal pain [R10.30] 04/26/2013 Vaginal atrophy [N95.2] 10/15/2013 Generalized osteoarthrosis, unspecified site [M*10/25/2013 Other complications due to internal joint prost*10/25/2013 Knee joint replacement by other means [Z96.659] 10/25/2013 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] 01/22/2014 Duodenal stricture [K31.5] 03/28/2016 PUD (peptic ulcer disease) [K27.9] 03/28/2016 Acute GI bleeding [K92.2] 06/13/2016 08/15/2018 Vitamin D deficiency [E55.9] 08/08/2017 H/O diverticulitis of colon [Z87.19] 08/15/2018 Psoriatic arthritis (HCC) [L40.50] 08/15/2018 Encounter Status:Closed by ROSA GREENBERG RN on 05/19/22 [facility] CNOVon 05-02-2022 CNOV Office Visit (ORMDNA ) -------- JUDY REAGAN ([id number]) 1960 F Date Time Provider Department 05/02/22 9:30 AM JESUS ALBERTO HARRIS During your visit today, we recorded the following information about you: Jesus Alberto Harris APRN.CNP 05/02/2022 1:20 PM Signed Orthopaedic Office Note: May 02, 2022 10:08 [...] which included preparing to see the patient, [id number] patient care, completing clinical documentation, obtaining and/or reviewing separately obtained history, performing a medically appropriate examination, counseling and educating the patient/family/caregiver , ordering medications, tests, or procedures, communicating with other HCPs (not separately reported), independently interpreting results (not separately reported), communicating results to the patient/family/caregiver , and care coordination (not separately reported). Jesus Alberto Harris APRN.[facility] Orthopaedic Surgery Referring Provider: CHRISTIAN DUNNE [[id number]] Allergies As of Date: 05/02/2022 Noted Allergy Reaction ADHESIVE TAPE (ROSINS) 06/06/2016 2 - Rash BEE STING 09/02/2019 7 - Swelling Date Reviewed: 05/02/2022 Reviewed by: Jesus Alberto Harris APRN.[facility] - Fully Assessed Reason for Visit: New [[id number]] Cmt: L Partial Knee 2013 Knee Pain [132] Cmt: L Partial Knee 2013 New [[id number]] Cmt: R TKA 2010 Knee Pain [132] Cmt: R TKA 2010 Primary Visit Diagnosis: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, initial encounter ([facility]) [T84.84XA, Z96.651] Other Visit Diagnosis:Pain due to total left knee replacement, initial encounter ([facility]) [T84.84XA, Z96.652] Order(s):CONSULT TO PHYSICAL THERAPY [9032] Order #: [id number]: 1 FUTURE HINGED KNEE BRACE [[id number]] Order #: [id number] methylPREDNISolone (MEDROL, AMIRA,) 4 mg Dose-PackTake 1 tablet by mouth as directed. As directed on packageDisp: 21 tabletRfl: 0 Prescriptions as of 05/02/2022 - methylPREDNISolone (MEDROL, AMIRA,) 4 mg Dose-Pack Take 1 tablet by mouth as directed. As directed on package - traMADol (ULTRAM) 50 mg tablet Take 50 mg by mouth twice daily as needed. Currently not taking while on [place] for pain - amLODIPine (NORVASC) 5 mg tablet Take 5 mg by mouth once daily. - methotrexate 2.5 mg tablet (more content not included)... Normal [facility] XR KNEE 3V AP/LAT/MELIDA BILon 05-02-2022 XR KNEE 3V AP/LAT/MELIDA DANUTA * * *Final Report* * * DATE OF EXAM: May 02 2022 9:27AM GIOVANNY 5635 - XR KNEE 3V AP/LAT/MELIDA DANUTA / PROCEDURE REASON: multiple diagnoses * * * * Physician Interpretation * * * * EXAM(s): XR KNEE 3V AP/LAT/MELIDA DANUTA EXAM DATE/TIME: 05/02/2022 9:27 AM HISTORY: 62 years old Clinical information: Pain in both knees, unspecified chronicity Pain in both knees, unspecified chronicity bilateral knee pain started about a month ago Bilateral AP Weight-Bearing TECHNIQUE: Images: XR KNEE 3V AP/LAT/MELIDA DANUTA Comparison: 03/01/2018. RESULT: Findings: Right :No fractures or dislocations are seen. The components of the RIGHT total knee arthroplasty are in good alignment with the respective bones and each other. There is no evidence of loosening of the components. Left :No fractures or dislocations are seen. Partial arthroplasty component in the distal femur for articulation with the patella. Mild narrowing of the lateral compartment. Mild marginal spurring. IMPRESSION: Findings as discussed under Results portion of report. Yarn Comber: P[facility] Transcribe Date/Time: May 02 2022 9:42A Dictated by : HARIKA LYONS DO This examination was interpreted and the report reviewed and electronically signed by: HARIKA LYONS DO on May 02 2022 9:46AM EST [id number] [facility] XR KNEE POST OP 3V AP/LAT/ME RCHANT BILATERALon 05-02-2022 [facility] CNPCristine 04-27-2022 CNPN Telephone (YENJAJA) -------- JUDY REAGAN ([id number]) 1960 F Date Time Provider Department 04/27/22 JESUS ALBERTO HARRIS During your visit today, we recorded the following information about you: Kitty Bansal 04/27/2022 10:16 AM Signed Provider out on 05/05/22, left VM AND sent PluggedIn message. Ok to r/s to 05/03/22. Please assist in rescheduling when patient calls back. Thanks Kitty Bansal 04/28/2022 9:37 AM Signed Patient returned call, and is rescheduled. Allergies As of Date: 04/27/2022 Noted Allergy Reaction ADHESIVE TAPE (ROSINS) 06/06/2016 2 - Rash BEE STING 09/02/2019 7 - Swelling Date Reviewed: 08/31/2021 Reviewed by: Yue Cooney RN - Fully Assessed Reason for Visit: appointment conflict [Other] Prescriptions as of 04/28/2022 - traMADol (ULTRAM) 50 mg tablet Take 50 mg by mouth twice daily as needed. Currently not taking while on [place] for pain - amLODIPine (NORVASC) 5 mg [...] Take 1 capsule by mouth once daily. Problem List As Of Date 04/27/2022 Noted Resolved Tobacco use disorder [F17.200] 09/19/2007 08/15/2018 FAMILY HISTORY OF CARDIOVASC DIS (ISCHEMIC) [Z8*10/17/2007 08/15/2018 HYPERTENSION BENIGN [I10] 10/17/2007 OA (osteoarthritis) of knee [M17.9] 09/02/2010 Primary localized osteoarthrosis, lower leg [M1*01/11/2011 08/15/2018 Pain in joint, lower leg [M25.569] 09/13/2011 08/15/2018 Symptomatic menopausal or female climacteric st*01/04/2012 08/15/2018 Tear of lateral cartilage or meniscus of knee, *06/05/2012 08/15/2018 Lower abdominal pain [R10.30] 04/26/2013 Vaginal atrophy [N95.2] 10/15/2013 Generalized osteoarthrosis, unspecified site [M*10/25/2013 Other complications due to internal joint prost*10/25/2013 Knee joint replacement by other means [Z96.659] 10/25/2013 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] 01/22/2014 Duodenal stricture [K31.5] 03/28/2016 PUD (peptic ulcer disease) [K27.9] 03/28/2016 Acute GI bleeding [K92.2] 06/13/2016 08/15/2018 Vitamin D deficiency [E55.9] 08/08/2017 H/O diverticulitis of colon [Z87.19] 08/15/2018 Psoriatic arthritis (HCC) [L40.50] 08/15/2018 Encounter Status:Closed by KITTY BANSAL on 04/28/22 [facility] [place] 04-25-2022 YAMILKA Telephone (TRAVIS) -------- SERG REAGANE A ([id number]) 1960 F Date Time Provider Department 04/25/22 CHRISTIAN DUNNE During your visit today, we recorded the following information about you: Mavis Russell MARIA DOLORES 04/25/2022 2:43 PM Signed Patient called. Verified name and date of . Patient has appointment scheduled for May 02, 2022 with X-Rays to be done prior to appointment with Dr. Dunne to discuss Right knee which has had a total knee replacement done. Patient reports having increased pain in left knee which has had a partial replacement done at [facility] several years ago. She is concerned that perhaps the pain is from result of favoring her right knee but would like to verify of no changes. Patient aware likely will need to bee seen separate date/time to discuss left knee and verbalizes understanding but would like to hear from Ortho staff. Please review and advise. Christian Dunne MD 04/25/2022 3:58 PM Signed I don't really see patients who need a painful replacement or partial replacement evaluated, as if they were to need something further done, or a revision surgery, I do not do those procedures. I would recommend seeing either Elias Harris or Philip Castillo in our [place] office to begin evaluation or a work up for a painful prior replacement. She should be able to get xrays of both knees to review them together. MD Padmini John Ma 04/25/2022 4:07 PM Signed I called and spoke with patient. Message from Dr. Dunne given. Patient verbalized understanding and was transferred to scheduling to reschedule her appointment to appropriate provider. Yessenia Whyte 04/25/2022 4:37 PM Signed Patient is scheduled Allergies As of Date: 04/25/2022 Noted Allergy Reaction ADHESIVE TAPE (ROSINS) 06/06/2016 2 - Rash BEE STING 09/02/2019 7 - Swelling Date Reviewed: 08/31/2021 Reviewed by: Yue Cooney RN - Fully Assessed Reason for Visit: Patient Question [2981] Prescriptions as of 04/25/2022 - traMADol (ULTRAM) 50 mg tablet Take 50 mg by mouth twice daily as needed. Currently not taking while on [place] for pain - amLODIPine (NORVASC) 5 mg [...] Take 1 capsule by mouth once daily. Problem List As Of Date 04/25/2022 Noted Resolved Tobacco use disorder [F17.200] 09/19/2007 08/15/2018 FAMILY HISTORY OF CARDIOVASC DIS (ISCHEMIC) [Z8*10/17/2007 08/15/2018 HYPERTENSION BENIGN [I10] 10/17/2007 OA (osteoarthritis) of knee [M17.9] 09/02/2010 Primary localized osteoarthrosis, lower leg [M1*01/11/2011 08/15/2018 Pain in joint, lower leg [M25.569] 09/13/2011 08/15/2018 Symptomatic menopausal or female climacteric st*01/04/2012 08/15/2018 Tear of lateral cartilage or meniscus of knee, *06/05/2012 08/15/2018 Lower abdominal pain [R10.30] 04/26/2013 Vaginal atrophy [N95.2] 10/15/2013 Generalized osteoarthrosis, unspecified site [M*10/25/2013 Other complications due to internal joint prost*10/25/2013 Knee joint replacement by other means [Z96.659] 10/25/2013 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] 01/22/2014 Duodenal stricture [K31.5] 03/28/2016 PUD (peptic ulcer disease) [K27.9] 03/28/2016 Acute GI bleeding [K92.2] 06/13/2016 08/15/2018 Vitamin D deficiency [E55.9] 08/08/2017 H/O diverticulitis of colon [Z87.19] 08/15/2018 Psoriatic arthritis (HCC) [L40.50] 08/15/2018 Encounter Status:Closed by PADMINI KRUEGER MA on 04/25/22 Normal [facility] Basophil percentageon 2021 Chloride [Moles/Vol] 97 mmol/L 98-107 [facility] Work Phone: Glucose [Mass/Vol] 104 mg/dL 74-106 [facility] Work Phone: Comment on above: Fasting Glucose resu lt from 100 to 125 mg/dL suggests IMPAIRED HOMEOSTASIS per A.D.A. criteria. Potassium [Moles/Vol] 4.3 mmol/L 3.5-5.1 [facility] Work Phone: Sodium [Moles/Vol] 135 mmol/L 136-145 [facility] Work Phone: Laboratory - Chemistry and C hemistry - challengeon 12-22-2021 CO2 [Moles/Vol] 32.0 mmol/L 21.0-32.0 [facility] Work Phone: Urea nitrogen/Creatinine [Mass ratio] 20.5 mg/mg 10-20 [facility] Work Phone: No Panel Informationon 12-22 Estimated Creatinine Clearance Calc 67.06 ml/min [facility] Work Phone: Estimated GFR (MDRD) Amer 97 mL/min >60 [facility] Work Phone: Comment on above: GFR Calc Estimated GFR (MDRD) Non-Af Amer 80 mL/min >60 [facility] Work Phone: Comment on above: Non- GFR Calc Serum or plasma calcium elis urement (mass/volume)on 12-22-2021 Calcium [Mass/Vol] 9.7 mg/dL 8.5-10.1 [facility] Work Phone: Serum or plasma creatinine m easurement (mass/volume)on 12-22-2021 Creatinine [Mass/Vol] 0.78 mg/dL 0.55-1.02 [facility] Work Phone: Comment on above: The validity of the calculated GFR & GFRAA in patients over 70 years has not been determined. Clinical correlation is essential. Serum or plasma urea nitroge n measurement (mass/volume)on 12-22-2021 Urea nitrogen [Mass/Vol] 16 mg/dL 7-18 [facility] Work Phone: Thin prep Papanicolaou smear with manual screeningon 12-22-2021 Thin prep Papanicolaou smear with manual screening 6 5-15 [facility] Work Phone: Absolute lymphocyte counton 10-18-2021 Lymphocytes Auto (Unsp spec) [#/Vol] 1.62 10*3/uL 0.83-4.51 [facility] Work Phone: Basophil percentageon 2021 Basophils/100 WBC (Bld) 0.8 % 0-1 [facility] Work Phone: Bilirubin [Mass/Vol] 0.40 mg/dL 0.20-1.00 [facility] Work Phone: Comment on above: For patients on eltr ombopag therapy, use of Dimension [place] TBIL is not recommended. Chloride [Moles/Vol] 102 mmol/L 98-107 [facility] Work Phone: Eosinophils/100 WBC (Bld) 1.5 % 0-5 [facility] Work Phone: Glucose [Mass/Vol] 112 mg/dL 74-106 [facility] Work Phone: Comment on above: Fasting Glucose resu lt from 100 to 125 mg/dL suggests IMPAIRED HOMEOSTASIS per A.D.A. criteria. Neutrophils (Bld) [#/Vol] 3.9 10*3/uL 2.0-7.7 [facility] Work Phone: Neutrophils/100 WBC (Bld) 63.2 % 47-70 [facility] Work Phone: Potassium [Moles/Vol] 3.8 mmol/L 3.5-5.1 [facility] Work Phone: [phone] Protein [Mass/Vol] 8.3 g/dL 6.4-8.2 [facility] Work Phone: [phone] Sodium [Moles/Vol] 135 mmol/L 136-145 [facility] Work Phone: WBC (Bld) [#/Vol] 6.1 10*3/uL 4.4-11.0 [facility] Work Phone: [phone] Blood erythrocytes count (nu mber/volume)on 10-18-2021 RBC (Bld) [#/Vol] 4.58 10*6/uL 4.2-5.4 [facility] Work Phone: [phone] Blood hemoglobin measurement (mass/volume)on 10-18-2021 Hemoglobin (Bld) [Mass/Vol] 14.0 g/dL 12.0-15.0 [facility] Work Phone: Blood lymphocytes/100 leukoc yteson 10-18-2021 Lymphocytes/100 WBC (Bld) 26.5 % 19-41 [facility] Work Phone: Blood monocytes/100 leukocyt eson 10-18-2021 Monocytes/100 WBC (Bld) 7.5 % 0-10 [facility] Work Phone: Blood platelet mean volumeon 10-18-2021 Platelet mean volume (Bld) [Entitic vol] 10.6 fL 6.2-12.0 [facility] Work Phone: [phone] Determination of erythrocyte mean corpuscular volume (MCV)on 10-18-2021 MCV (RBC) [Entitic vol] 93.9 fL 81-99 [facility] Work Phone: [phone] Hematocrit Auto (Bld) [Volum e fraction]on 10-18-2021 Hematocrit (Bld) [Volume fraction] 43.0 % 37-47 [facility] Work Phone: [phone] Laboratory - Chemistry and C hemistry - challengeon 10-18-2021 ALP [Catalytic activity/Vol] 106 U/L 45-117 [facility] Work Phone: ALT [Catalytic activity/Vol] 44 U/L 13-56 [facility] Work Phone: [phone] CO2 [Moles/Vol] 26.0 mmol/L 21.0-32.0 [facility] Work Phone: Globulin (S) [Mass/Vol] 4.5 g/dL 2.2-4.2 [facility] Work Phone: Urea nitrogen/Creatinine [Mass ratio] 19.6 mg/mg 10-20 [facility] Work Phone: Laboratory - Hematology and Cell countson 10-18-2021 Erythrocyte distribution width (RBC) [Entitic vol] 45.6 fL 35.1-43.9 [facility] Work Phone: Erythrocyte distribution width (RBC) [Ratio] 13.3 % 11.6-14.6 [facility] Work Phone: Immature granulocytes/100 WBC (Bld) 0.500 % 0.0-0.9 [facility] Work Phone: Comment on above: IG% - Immature Granu locytes (promyelocytes, myelocytes and metamyelocytes) > 1% indicates that a LEFT SHIFT is Present. MCH (RBC) [Entitic mass] 30.6 pg 27.0-32.0 [facility] Work Phone: Nucleated RBC/100 WBC (Bld) [Ratio] 0 % 0-5 [facility] Work Phone: MCHC Auto (RBC) [Mass/Vol]on 10-18-2021 MCHC (RBC) [Mass/Vol] 32.6 g/dL 32-36 [facility] Work Phone: No Panel Informationon 10-18 Estimated GFR (MDRD) Amer 99 mL/min >60 [facility] Work Phone: Comment on above: GFR Calc Estimated GFR (MDRD) Non-Af Amer 82 mL/min >60 [facility] Work Phone: Comment on above: Non- GFR Calc Platelets bldon 10-18-2021 Platelets (Bld) [#/Vol] 286 10*3/uL 150-450 [facility] Work Phone: Serum or plasma albumin elis urement (mass/volume)on 10-18-2021 Albumin [Mass/Vol] 3.8 g/dL 3.2-5.0 [facility] Work Phone: Serum or plasma albumin/glob ulin mass ratioon 10-18-2021 Albumin/Globulin [Mass ratio] 0.8 {ratio} 0.9-2.4 [facility] Work Phone: Serum or plasma calcium elis urement (mass/volume)on 10-18-2021 Calcium [Mass/Vol] 9.6 mg/dL 8.5-10.1 [facility] Work Phone: Serum or plasma creatinine m easurement (mass/volume)on 10-18-2021 Creatinine [Mass/Vol] 0.76 mg/dL 0.55-1.02 [facility] Work Phone: Comment on above: The validity of the calculated GFR & GFRAA in patients over 70 years has not been determined. Clinical correlation is essential. Serum or plasma urea nitroge n measurement (mass/volume)on 10-18-2021 Urea nitrogen [Mass/Vol] 15 mg/dL 7-18 [facility] Work Phone: Thin prep Papanicolaou smear with manual screeningon 10-18-2021 Thin prep Papanicolaou smear with manual screening 35 U/L 15-37 [facility] Work Phone: Thin prep Papanicolaou smear with manual screening 7 5-15 [facility] Work Phone: CNCOon 10-05-2021 CNCO Letter Text Normal [facility] CNPCristine 10-05-2021 YAMILKA Telephone (AGRHEUHWN ) -------- JUDY REAGAN ([id number]) 1960 F Date Time Provider Department 10/05/21 SAURAV MORTENSEN During your visit today, we recorded the following information about you: Vane Davidson 10/05/2021 2:39 PM Signed No Show Documentation Judy Reagan no showed for an appointment on 10-01-21 with Saurav Mortensen MD at 11:20. She was scheduled for NEW PATIENT. I called and spoke with the patient regarding her missed appointment. LEFT VM Judy stated the reason that she missed her appointment was because NA. Resources discussed/offered to patient: NONE No show determined to be fault of patient: N/A This is the patients first no show in the last 12 months. Patient was rescheduled for NA. Letter mailed : Yes Is this the Third or Fourth No Show? No Vane Davidson October 05, 2021 2:38 PM Allergies As of Date: 10/05/2021 Noted Allergy Reaction ADHESIVE TAPE (ROSINS) 06/06/2016 2 - Rash BEE STING 09/02/2019 7 - Swelling Date Reviewed: 08/31/2021 Reviewed by: Yue Cooney RN - Fully Assessed Reason for Visit: No Show [1558] Prescriptions as of 10/05/2021 - traMADol (ULTRAM) 50 mg tablet Take 50 mg by mouth twice daily as needed. Currently not taking while on [place] for pain - amLODIPine (NORVASC) 5 mg [...] Take 1 capsule by mouth once daily. Problem List As Of Date 10/05/2021 Noted Resolved Tobacco use disorder [F17.200] 09/19/2007 08/15/2018 FAMILY HISTORY OF CARDIOVASC DIS (ISCHEMIC) [Z8*10/17/2007 08/15/2018 HYPERTENSION BENIGN [I10] 10/17/2007 OA (osteoarthritis) of knee [M17.10] 09/02/2010 Primary localized osteoarthrosis, lower leg [M1*01/11/2011 08/15/2018 Pain in joint, lower leg [M25.569] 09/13/2011 08/15/2018 Symptomatic menopausal or female climacteric st*01/04/2012 08/15/2018 Tear of lateral cartilage or meniscus of knee, *06/05/2012 08/15/2018 Lower abdominal pain [R10.30] 04/26/2013 Vaginal atrophy [N95.2] 10/15/2013 Generalized osteoarthrosis, unspecified site [M*10/25/2013 Other complications due to internal joint prost*10/25/2013 Knee joint replacement by other means [Z96.659] 10/25/2013 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] 01/22/2014 Duodenal stricture [K31.5] 03/28/2016 PUD (peptic ulcer disease) [K27.9] 03/28/2016 Acute GI bleeding [K92.2] 06/13/2016 08/15/2018 Vitamin D deficiency [E55.9] 08/08/2017 H/O diverticulitis of colon [Z87.19] 08/15/2018 Psoriatic arthritis (HCC) [L40.50] 08/15/2018 Encounter Status:Closed by VANE DAVIDSON on 10/05/21 [facility] [place] 10-01-2021 YAMILKA Telephone (Cribspot) -------- JUDY REAGAN ([id number]) 1960 F Date Time Provider Department 10/01/21 SAURAV MORTENSEN During your visit today, we recorded the following information about you: Saurav Mortensen MD 10/01/2021 7:54 AM Signed First visit 10/01/[address] Ho Rheum 2016 Dr. 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 Currently not taking while on [place] for pain - amLODIPine (NORVASC) 5 mg [...] Take 1 capsule by mouth once daily. Problem List As Of Date 10/01/2021 Noted Resolved Tobacco use disorder [F17.200] 09/19/2007 08/15/2018 FAMILY HISTORY OF CARDIOVASC DIS (ISCHEMIC) [Z8*10/17/2007 08/15/2018 HYPERTENSION BENIGN [I10] 10/17/2007 OA (osteoarthritis) of knee [M17.10] 09/02/2010 Primary localized osteoarthrosis, lower leg [M1*01/11/2011 08/15/2018 Pain in joint, lower leg [M25.569] 09/13/2011 08/15/2018 Symptomatic menopausal or female climacteric st*01/04/2012 08/15/2018 Tear of lateral cartilage or meniscus of knee, *06/05/2012 08/15/2018 Lower abdominal pain [R10.30] 04/26/2013 Vaginal atrophy [N95.2] 10/15/2013 Generalized osteoarthrosis, unspecified site [M*10/25/2013 Other complications due to internal joint prost*10/25/2013 Knee joint replacement by other means [Z96.659] 10/25/2013 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 Absolute lymphocyte counton 09-10-2021 Lymphocytes Auto (Unsp spec) [#/Vol] 1.60 10*3/uL 0.83-4.51 [facility] Work Phone: Basophil percentageon 2021 Basophils/100 WBC (Bld) 0.7 % 0-1 [facility] Work Phone: Bilirubin [Mass/Vol] 0.60 mg/dL 0.20-1.00 [facility] Work Phone: Comment on above: For patients on eltr ombopag therapy, use of Dimension [place] TBIL is not recommended. Chloride [Moles/Vol] 102 mmol/L 98-107 [facility] Work [facility]: Eosinophils/100 WBC (Bld) 1.0 % 0-5 [facility] Work Phone: Glucose [Mass/Vol] 97 mg/dL 74-106 [facility]: Neutrophils (Bld) [#/Vol] 4.9 10*3/uL 2.0-7.7 [facility] Work Phone: Neutrophils/100 WBC (Bld) 70.0 % 47-70 [facility] Work Phone: Potassium [Moles/Vol] 3.6 mmol/L 3.5-5.1 [facility] Work Phone: Protein [Mass/Vol] 7.9 g/dL 6.4-8.2 [facility] Work Phone: Sodium [Moles/Vol] 137 mmol/L 136-145 [facility] Work Phone: WBC (Bld) [#/Vol] 6.9 10*3/uL 4.4-11.0 [facility] Work Phone: Blood erythrocytes count (nu mber/volume)on 09-10-2021 RBC (Bld) [#/Vol] 4.39 10*6/uL 4.2-5.4 [facility] Work Phone: Blood hemoglobin measurement (mass/volume)on 09-10-2021 Hemoglobin (Bld) [Mass/Vol] 13.7 g/dL 12.0-15.0 [facility] Work Phone: Blood lymphocytes/100 leukoc yteson 09-10-2021 Lymphocytes/100 WBC (Bld) 23.1 % 19-41 [facility] Work Phone: Blood monocytes/100 leukocyt eson 09-10-2021 Monocytes/100 WBC (Bld) 4.9 % 0-10 [facility] Work Phone: Blood platelet mean volumeon 09-10-2021 Platelet mean volume (Bld) [Entitic vol] 9.8 fL 6.2-12.0 [facility] Work Phone: Determination of erythrocyte mean corpuscular volume (MCV)on 09-10-2021 MCV (RBC) [Entitic vol] 93.6 fL 81-99 [facility] Work Phone: [phone] Hematocrit Auto (Bld) [Volum e fraction]on 09-10-2021 Hematocrit (Bld) [Volume fraction] 41.1 % 37-47 [facility] Work Phone: [phone] Laboratory - Chemistry and C hemistry - challengeon 09-10-2021 ALP [Catalytic activity/Vol] 103 U/L 45-117 [facility] Work Phone: ALT [Catalytic activity/Vol] 48 U/L 13-56 [facility] Work Phone: CO2 [Moles/Vol] 28.0 mmol/L 21.0-32.0 [facility] Work Phone: [phone] Globulin (S) [Mass/Vol] 4.0 g/dL 2.2-4.2 [facility] Work Phone: [phone] Urea nitrogen/Creatinine [Mass ratio] 18.9 mg/mg 10-20 [facility] Work Phone: [phone] Laboratory - Hematology and Cell countson 09-10-2021 Erythrocyte distribution width (RBC) [Entitic vol] 44.5 fL 35.1-43.9 [facility] Work Phone: [phone] Erythrocyte distribution width (RBC) [Ratio] 12.9 % 11.6-14.6 [facility] Work Phone: [phone] Immature granulocytes/100 WBC (Bld) 0.300 % 0.0-0.9 [facility] Work Phone: [phone] Comment on above: IG% - Immature Granu locytes (promyelocytes, myelocytes and metamyelocytes) > 1% indicates that a LEFT SHIFT is Present. MCH (RBC) [Entitic mass] 31.2 pg 27.0-32.0 [facility] Work Phone: Nucleated RBC/100 WBC (Bld) [Ratio] 0 % 0-5 [facility] Work Phone: MCHC Auto (RBC) [Mass/Vol]on 09-10-2021 MCHC (RBC) [Mass/Vol] 33.3 g/dL 32-36 [facility] Work Phone: No Panel Informationon 09-10 Estimated GFR (MDRD) Amer 103 mL/min >60 [facility] Work Phone: Comment on above: GFR Calc Estimated GFR (MDRD) Non-Af Amer 85 mL/min >60 [facility] Work Phone: Comment on above: Non- GFR Calc Hepatitis C Antibody Non-Reactive Nonreactive [facility] Work Phone: Comment on above: Non Reactive: < 0.8 Equivocal: >/= 0.8 to < 1.0 Reactive: >/= 1.0The CDC recommends that a reactive/equivocal HCV antibody result be followed up by the HCV Nucleic Acid Amplificationtest (633556) Thyroid Stimulating Hormone (TSH) 0.83 uIU/mL 0.358-3.74 [facility] Work Phone: Vitamin D 25-Hydroxy 59.8 ng/mL [facility] Work Phone: Comment on above: Vitamin D 25(OH) Sta tus Range Deficiency <20 ng/mL (50nmol/L) Insufficiency 20 - 30 ng/mL (50 - 75 nmol/L) Sufficiency 30 - 100 ng/mL (75 - 250 nmol/L) Toxicity >100 ng/mL (>250 nmol/L) Platelets bldon 09-10-2021 Platelets (Bld) [#/Vol] 370 10*3/uL 150-450 [facility] Work Phone: Serum or plasma albumin elis urement (mass/volume)on 09-10-2021 Albumin [Mass/Vol] 3.9 g/dL 3.2-5.0 [facility] Work Phone: Serum or plasma albumin/glob ulin mass ratioon 09-10-2021 Albumin/Globulin [Mass ratio] 1.0 {ratio} 0.9-2.4 [facility] Work Phone: Serum or plasma calcium elis urement (mass/volume)on 09-10-2021 Calcium [Mass/Vol] 9.1 mg/dL 8.5-10.1 [facility] Work Phone: Serum or plasma creatinine m easurement (mass/volume)on 09-10-2021 Creatinine [Mass/Vol] 0.74 mg/dL 0.55-1.02 [facility] Work Phone: Comment on above: The validity of the calculated GFR & GFRAA in patients over 70 years has not been determined. Clinical correlation is essential. Serum or plasma urea nitroge n measurement (mass/volume)on 09-10-2021 Urea nitrogen [Mass/Vol] 14 mg/dL 7-18 [facility] Work Phone: Thin prep Papanicolaou smear with manual screeningon 09-10-2021 Thin prep Papanicolaou smear with manual screening 35 U/L 15-37 [facility] Work Phone: Thin prep Papanicolaou smear with manual screening 7 5-15 [facility] Work Phone: CNOVon 08-31-2021 CNOV Office Visit (PODIWS ) -------- JUDY REAGAN ([id number]) 1960 F Date Time Provider Department 08/31/21 9:45 AM YUMIKO WELSH During your visit today, we recorded the following information about you: Yumiko Welsh DPM 08/31/2021 11:08 AM Signed Follow up podiatric office visit for: Chief [...] mention of hemorrhage) - Essential hypertension, benign 1998 - Generalized anxiety disorder Due to menopausal sx's Current Outpatient Medications Medication Sig - traMADol (ULTRAM) 50 mg tablet Take 50 mg by mouth twice daily as needed. Currently not taking while on [place] for pain - amLODIPine (NORVASC) 5 mg [...] No open lesions present. No callosities present. Musculoskeletal/Orthopae dic: Patient has pain to palpation of right [...] alternatives, potential complications, and personnel to be (more content not included)... Normal [facility] HIV 1/2on 07-11-2019 HIV 1/O/2 QUAL NONREACTIVE Normal NONREACTIVE [facility] Comment on above: Result Comment: NONR EACTIVE: LESS THAN 1.0 INDEX VALUE THIS ASSAY DETECTS HIV p24 ANTIGEN AND ANTIBODIES TO HIV-1 AND HIV-2 BY THE [employer] CHIV ASSAY. Performed By: #### L 500.72658, L500.85970, L500.05815, L550.03919, L700.67458 #### [facility] [address] [place] [address] VITAMIN D2+D3on 07-08-2019 25 [place], VIT D 26 ng/mL Low () [facility] Comment on above: Result Comment: Refe rence Range: All Ages: Target levels 30 - 100 Performed By: #### L 500.95178, L500.19492, L500.16339, L550.21641, L700.21501 #### [facility] [address] [place] [address] 25 [place], VIT D-2 11 ng/mL Normal () [facility] Comment on above: Performed By: #### L 500.93620, L500.21821, L500.54176, L550.70126, L700.02805 #### [facility] [address] [place] [address] 25 [place], VIT D-3 15 ng/mL Normal () [facility] Comment on above: Result Comment: Perf ormed At: [facility] [address] [place] [id number] Francois Alvarado MD [id number] Performed By: #### L 500.44335, L500.99119, L500.56350, L550.60292, L700.88161 #### [facility] [address] [place] [address] CCP-ABSon 07-06-2019 CCP-ABS 8 units Normal 0-19 [facility] Comment on above: Result Comment: Nega tive <20 Weak positive 20 - 39 Moderate positive 40 - 59 Strong positive >59 Performed At: [facility] [address] [id number] Morris Mendoza MD [id number] Performed By: #### L 500.44922, L500.04881, L500.18795, L550.38881, L700.87727 #### [facility] [address] [place] [address] CBC W/DIFFon 07-04-2019 BASO ABS 0.10 K/CU MM Normal 0-0.2 [facility] Comment on above: Performed By: #### L 200.02413, L200.67618 #### [facility] [address] [place] [address] Basophils/100 WBC (Bld) 0.9 % Normal 0-2 [facility] Comment on above: Performed By: #### L 200.92808, L200.88935 #### [facility] [address] [place] [address] EOS ABS 0.10 K/CU MM Normal 0-0.5 [facility] Comment on above: Performed By: #### L 200.06078, L200.30476 #### [facility] [address] [place] [address] Eosinophils/100 WBC (Bld) 0.9 % Normal 0-5 [facility] Comment on above: Performed By: #### L 200.59952, L200.43750 #### [facility] [address] [place] [address] Erythrocyte distribution width (RBC) [Ratio] 12.8 % Normal 11-14.5 [facility] Comment on above: Performed By: #### L 200.36475, L200.12584 #### [facility] [address] [place] [address] Hematocrit (Bld) [Volume fraction] 41.9 % Normal 35.0-47.0 [facility] Comment on above: Performed By: #### L 200.89372, L200.62052 #### [facility] [address] [place] [address] Hemoglobin (Bld) [Mass/Vol] 14.3 g/dL Normal 11.5-15.5 [facility] Comment on above: Performed By: #### L 200.06498, L200.77411 #### [facility] [address] [place] [address] IMMATR GRAN ABS 0.00 K/CU MM Normal Less than 2 [facility] Comment on above: Performed By: #### L 200.81736, L200.36484 #### [facility] [address] [place] [address] IMMATURE GRAN % 0.3 % Normal Less than 2 [facility] Comment on above: Performed By: #### L 200.14843, L200.20412 #### [facility] [address] [place] [address] Lymphocytes (Bld) [#/Vol] 1.70 K/CU MM Normal 0.9-4.4 [facility] Comment on above: Performed By: #### L 200.17713, L200.94796 #### [facility] [address] [place] [address] Lymphocytes/100 WBC (Bld) 25.6 % Normal 20-40 [facility] Comment on above: Performed By: #### L 200.78599, L200.65960 #### [facility] [address] [place] [address] MCHC (RBC) [Mass/Vol] 34.1 g/dL Normal 32.0-36.0 [facility] Comment on above: Performed By: #### L 200.85359, L200.37027 #### [facility] [address] [place] [address] MCV (RBC) [Entitic vol] 94.2 fL Normal 80.0-99.0 [facility] Comment on above: Performed By: #### L 200.30258, L200.74202 #### [facility] [address] [place] [address] MONO ABS 0.60 K/CU MM Normal 0.1-1.1 [facility] Comment on above: Performed By: #### L 200.14141, L200.50911 #### [facility] [address] [place] [address] Monocytes/100 WBC (Bld) 9.2 % Normal 2-10 [facility] Comment on above: Performed By: #### L 200.66890, L200.44829 #### [facility] [address] [place] [address] NEUTROPHIL ABS 4.30 K/CU MM Normal 2.0-8.3 [facility] Comment on above: Performed By: #### L 200.17320, L200.20045 #### [facility] [address] [place] [address] Neutrophils/100 WBC (Bld) 63.1 % Normal 45-75 [facility] Comment on above: Performed By: #### L 200.09291, L200.89494 #### [facility] [address] [place], [place] [id number] Nucleated RBC/100 WBC (Bld) [Ratio] 0.0 % Normal Less than 1 [facility] Comment on above: Performed By: #### L 200.76311, L200.23125 #### [facility] [address] [place] [address] Platelet mean volume (Bld) [Entitic vol] 9.8 fL Normal 9.4-12.4 [facility] Comment on above: Performed By: #### L 200.41807, L200.08692 #### [facility] [address] [place], [place] [id number] Platelets (Bld) [#/Vol] 285 K/CU MM Normal 150-450 [facility] Comment on above: Performed By: #### L 200.87113, L200.30044 #### [facility] [address] [place] [address] RBC (Bld) [#/Vol] 4.45 M/CU MM Normal 3.90-5.30 [facility] Comment on above: Performed By: #### L 200.41106, L200.10353 #### [facility] [address] [place] [address] WBC (Bld) [#/Vol] 6.8 K/CUMM Normal 4.5-11.0 [facility] Comment on above: Performed By: #### L 200.33305, L200.58323 #### [facility] [address] [place] [address] CMPon 07-04-2019 Albumin [Mass/Vol] 4.4 g/dL Normal 3.2-5.0 [facility] Comment on above: Performed By: #### L 500.94591, L500.90587, L500.93594, L550.47472, L700.52366 #### [facility] [address] [place] [address] Albumin/Globulin [Mass ratio] 1.3 {ratio} Normal 0.8-2.0 [facility] Comment on above: Performed By: #### L 500.56059, L500.53913, L500.71440, L550.55485, L700.85278 #### [facility] [place] [address] ALK PHOS 102 U/L Normal 45-117 [facility] Comment on above: Performed By: #### L 500.17048, L500.65625, L500.96924, L550.34362, L700.35344 #### [facility] [address] [place] [address] ALT [Catalytic activity/Vol] 48 U/L Normal 13-61 [facility] Comment on above: Result Comment: RESU LTS MAY BE FALSELY DEPRESSED AFTER THE ADMINISTRATION OF SULFASALAZINE AND/OR SULFAPYRIDINE. Performed By: #### L 500.10885, L500.60317, L500.75933, L550.51975, L700.22600 #### [facility] [address] [place] [address] Anion gap [Moles/Vol] 10 mmol/L Normal 5-16 [facility] Comment on above: Performed By: #### L 500.61906, L500.51551, L500.82773, L550.73366, L700.26203 #### [facility] [address] [place] [address] BILI TOTAL 0.4 MG/DL Normal 0.2-1.0 [facility] Comment on above: Performed By: #### L 500.16089, L500.91502, L500.09038, L550.66305, L700.95626 #### [facility] [address] [place], [place] [address] Calcium [Mass/Vol] 8.9 mg/dL Normal 8.5-10.1 [facility] Comment on above: Performed By: #### L 500.25381, L500.58490, L500.66014, L550.65328, L700.07530 #### [facility] [place] [address] Chloride [Moles/Vol] 101 mmol/L Normal 98-107 [facility] Comment on above: Performed By: #### L 500.11472, L500.42576, L500.78097, L550.39176, L700.61481 #### [facility] [address] [place] [address] CO2 [Moles/Vol] 26 mmol/L Normal 21-32 [facility] Comment on above: Performed By: #### L 500.46379, L500.56189, L500.18659, L550.84783, L700.63680 #### [facility] [address] [place] [address] Creatinine [Mass/Vol] 0.739 mg/dL Normal 0.510-0.950 [facility] Comment on above: Result Comment: Xena ents receiving either N-Acetylcysteine (NAC) or Metamizole prior to venipuncture, may have falsely depressed results. Performed By: #### L 500.77986, L500.97917, L500.35721, L550.57737, L700.99564 #### [facility] [address] [place] [address] Globulin (S) [Mass/Vol] 3.3 g/dL Normal 2.2-4.2 [facility] Comment on above: Performed By: #### L 500.00990, L500.70821, L500.20153, L550.80618, L700.55543 #### [facility] [address] [place] [address] Glucose [Mass/Vol] 85 mg/dL Normal 70-100 [facility] Comment on above: Result Comment: 70-1 00- Normal Fasting; 100-125 Impaired Fasting; greater than 126 on more than one result- Diabetes. ADA guidelines. Results may be falsely elevated after the administration of Sulfapyridine. Results may be falsely depressed after the administration of Sulfasalazine. Performed By: #### L 500.95446, L500.45106, L500.79270, L550.50687, L700.40762 #### [facility] [place] [address] Potassium [Moles/Vol] 3.8 mmol/L Normal 3.5-5.1 [facility] Comment on above: Performed By: #### L 500.26346, L500.67278, L500.04933, L550.27550, L700.85002 #### [facility] [address] [place] [address] Protein [Mass/Vol] 7.7 g/dL Normal 6.0-8.5 [facility] Comment on above: Performed By: #### L 500.03471, L500.72211, L500.29227, L550.85997, L700.62765 #### [facility] [address] [place] [address] SGOT (AST) 29 U/L Normal 8-34 [facility] Comment on above: Result Comment: RESU LTS MAY BE FALSELY DEPRESSED AFTER THE ADMINISTRATION OF SULFASALAZINE AND/OR SULFAPYRIDINE. Performed By: #### L 500.60674, L500.39013, L500.43030, L550.07703, L700.21525 #### [facility] [address] [place] [address] Sodium [Moles/Vol] 136 mmol/L Normal 136-145 [facility] Comment on above: Performed By: #### L 500.11331, L500.17722, L500.80959, L550.67992, L700.69174 #### [facility] [address] [place] [address] Urea nitrogen [Mass/Vol] 17 mg/dL Normal 7-26 [facility] Comment on above: Performed By: #### L 500.58654, L500.66158, L500.77692, L550.00531, L700.41970 #### [facility] [address] [place] [address] Urea nitrogen/Creatinine [Mass ratio] 23 mg/mg Normal 15-24 [facility] Comment on above: Performed By: #### L 500.06564, L500.19413, L500.19427, L550.58314, L700.65717 #### [facility] [place] [address] CRPon 07-04-2019 CRP [Mass/Vol] 0.89 MG/DL High 0.00-0.32 [facility] Comment on above: Performed By: #### L 500.53689, L500.54838, L500.62616, L550.09342, L700.26290 #### [facility] [address] [place] [address] FOOT 2 VIEWS BILATERALon FOOT 2 VIEWS BILATERAL LUMBAR SPINE 2 OR 3 VWS, SACROILIAC JOINTS 3 OR MORE VW, HAND 2 VIEWS BILATERAL, KNEES 3 VIEWS BILATERAL, FOOT 2 VIEWS BILATERAL Ordering Physician: Eduardo Ruano DO 07/04/2019 12:00 PM LUMBAR SPINE SERIES 3 VIEWS Clinical Statement: Low back pain. Sacroiliitis. Psoriasis. Psoriatic arthritis. No comparison FINDINGS: Five nonrib-bearing lumbar-type vertebral bodies. No acute fractures. There is severe degenerative disk disease with disk space narrowing and osteophyte formation at the L4-5 level. There is no spondylolisthesis. No erosions or marginal osteophytes. IMPRESSION: Severe degenerative disk disease at the L4-5 level. No erosions or acute osseous abnormality. BILATERAL KNEES, SIX VIEWS: FINDINGS: On the right side, postoperative changes are noted status post total knee arthroplasty. The hardware is intact. No erosions or joint effusion. On the left side postoperative changes are noted status post patellar arthroplasty. There are mild medial and lateral compartment degenerative changes with osteophyte formation. Multiple punctate metallic densities are noted in the suprapatellar region. No erosions or joint effusion IMPRESSION: Postoperative changes status post right total knee arthroplasty. Status post left patellar arthroplasty with mild medial and lateral compartment degenerative changes. No erosions are seen. BILATERAL SACROILIAC JOINTS, FOUR VIEWS: FINDINGS: Sacroiliac joints are symmetric in appearance. No erosions are shown. No suspicious lytic or sclerotic abnormalities are seen. There is mild calcific tendinopathy at the greater trochanter on the left side. IMPRESSION: No erosions or significant degenerative change involving the sacroiliac joints. BILATERAL FEET, FOUR VIEWS: FINDINGS: No acute fracture or dislocation identified bilaterally. On the right side there is mild posterior and moderate plantar calcaneal enthesopathy. No erosions or abnormal periosteal reaction. On the left side there is moderate plantar calcaneal enthesopathy. No erosions or periosteal reaction shown. IMPRESSION: Bilateral calcaneal enthesopathy. No erosions are shown. BILATERAL HANDS, SIX VIEWS: FINDINGS: On the right side there are mild to moderate degenerative changes consistent with osteoarthritis at the first carpometacarpal and trapezioscaphoid joints and the interphalangeal joint of the first digit. No erosions or periosteal reaction. On the left side there are mild degenerative changes especially at the first carpometacarpal joint and interphalangeal joint of the first digit and to a lesser extent the distal interphalangeal joints. No erosions or periosteal reaction. IMPRESSION: Mild left and [id number] right degenerative changes most consistent with osteoarthritis. No erosions are shown. ---- Electronic Signature on File ---- Signed By: Alejandra Chavez MD [email or web address] Dictated: 07/04/2019 1:01 PM Signed: 07/04/2019 1:10 PM Reported By: ALEJANDRA CHAVEZ M.D. Signed By: ALEJANDRA CHAVEZ M.D. [facility] 07-04-2019 IF AMER Greater than 60 Normal [facility] Comment on above: Performed By: #### L 500.07926, L500.22266, L500.81436, L550.90824, L700.61990 #### [facility] [address] [place] [address] IF non-AFR AMER Greater than 60 Normal [facility] Comment on above: Performed By: #### L 500.04491, L500.15977, L500.11114, L550.30423, L700.39353 #### [facility] [address] [place] [address] HAND 2 VIEWS BILATERALon HAND 2 VIEWS BILATERAL LUMBAR SPINE 2 OR 3 VWS, SACROILIAC JOINTS 3 OR MORE VW, HAND 2 VIEWS BILATERAL, KNEES 3 VIEWS BILATERAL, FOOT 2 VIEWS BILATERAL Ordering Physician: Eduardo Ruano DO 07/04/2019 12:00 PM LUMBAR SPINE SERIES 3 VIEWS Clinical Statement: Low back pain. Sacroiliitis. Psoriasis. Psoriatic arthritis. No comparison FINDINGS: Five nonrib-bearing lumbar-type vertebral bodies. No acute fractures. There is severe degenerative disk disease with disk space narrowing and osteophyte formation at the L4-5 level. There is no spondylolisthesis. No erosions or marginal osteophytes. IMPRESSION: Severe degenerative disk disease at the L4-5 level. No erosions or acute osseous abnormality. BILATERAL KNEES, SIX VIEWS: FINDINGS: On the right side, postoperative changes are noted status post total knee arthroplasty. The hardware is intact. No erosions or joint effusion. On the left side postoperative changes are noted status post patellar arthroplasty. There are mild medial and lateral compartment degenerative changes with osteophyte formation. Multiple punctate metallic densities are noted in the suprapatellar region. No erosions or joint effusion IMPRESSION: Postoperative changes status post right total knee arthroplasty. Status post left patellar arthroplasty with mild medial and lateral compartment degenerative changes. No erosions are seen. BILATERAL SACROILIAC JOINTS, FOUR VIEWS: FINDINGS: Sacroiliac joints are symmetric in appearance. No erosions are shown. No suspicious lytic or sclerotic abnormalities are seen. There is mild calcific tendinopathy at the greater trochanter on the left side. IMPRESSION: No erosions or significant degenerative change involving the sacroiliac joints. BILATERAL FEET, FOUR VIEWS: FINDINGS: No acute fracture or dislocation identified bilaterally. On the right side there is mild posterior and moderate plantar calcaneal enthesopathy. No erosions or abnormal periosteal reaction. On the left side there is moderate plantar calcaneal enthesopathy. No erosions or periosteal reaction shown. IMPRESSION: Bilateral calcaneal enthesopathy. No erosions are shown. BILATERAL HANDS, SIX VIEWS: FINDINGS: On the right side there are mild to moderate degenerative changes consistent with osteoarthritis at the first carpometacarpal and trapezioscaphoid joints and the interphalangeal joint of the first digit. No erosions or periosteal reaction. On the left side there are mild degenerative changes especially at the first carpometacarpal joint and interphalangeal joint of the first digit and to a lesser extent the distal interphalangeal joints. No erosions or periosteal reaction. IMPRESSION: Mild left and fqgb-nh-kzpziuao right degenerative changes most consistent with osteoarthritis. No erosions are shown. ---- Electronic Signature on File ---- Signed By: Alejandra Chavez MD [email or web address] Dictated: 07/04/2019 1:01 PM Signed: 07/04/2019 1:10 PM Reported By: ALEJANDRA CHAVEZ M.D. Signed By: ALEJANDRA CHAVEZ M.D. Normal [facility] HBCABon 07-04-2019 HBCAB NONREACTIVE Normal NONREACTIVE [facility] Comment on above: Result Comment: RESU LTS WERE OBTAINED WITH THE [employer] XP ANTI-HCB ASSAY. VALUES OBTAINED WITH DIFFERENT MANUFACTURERS' ASSAY METHODS MAY NOT BE USED INTERCHANGEABLY. Performed By: #### L 540.44434, L540.34083, L540.82432, L540.02706 #### [facility] [address] [place] [address]# [phone] HBSAGon 07-04-2019 HBSAG NONREACTIVE Normal NONREACTIVE [facility] Comment on above: Result Comment: RESU LTS WERE OBTAINED WITH THE Netat[employer]UR XP. VALUES OBTAINED WITH DIFFERENT MANUFACTURERS' ASSAY METHODS MAY NOT BE USED INTERCHANGEABLY. Performed By: #### L 540.94385, L540.12075, L540.16606, L540.99218 #### [facility] [place] [address] HEP B AB QUANTon 07-04-2019 HEP B AB QUANT 31.50 mIU/mL High 0.00-9.99 [facility] Comment on above: Result Comment: STAT US OF IMMUNITY Protective Immunity: greater than or equal to 10 mIU/mL (Traceable to WHO International Reference Preparation) No Protective Immuniity: less than 10 mIU/mL Note: The magnitude of the measured result above the cutoff is not indicative of the total amount of antibody present. Performed By: #### L 540.63708, L540.87475, L540.18222, L540.19307 #### [facility] [address] [place] [address] HEPATITIS C ABon 07-04-2019 HCV AB NONREACTIVE Normal NONREACTIVE [facility] Comment on above: Result Comment: SCRE ENING TEST NEGATIVE NONREACTIVE HCV ANTIBODY SCREEN IS CONSISTENT WITH NO HCV INFECTION, UNLESS RECENT INFECTION IS SUSPECTED OR OTHER EVIDENCE EXISTS TO INDICATE HCV INFECTION Performed By: #### L 500.85292, L500.01855, L500.02225, L550.36684, L700.61500 #### [facility] [address] [place] [address] KNEES 3 VIEWS BILATERALon KNEES 3 VIEWS BILATERAL LUMBAR SPINE 2 O R 3 VWS, SACROILIAC JOINTS 3 OR MORE VW, HAND 2 VIEWS BILATERAL, KNEES 3 VIEWS BILATERAL, FOOT 2 VIEWS BILATERAL Ordering Physician: Eduardo Ruano DO 07/04/2019 12:00 PM LUMBAR SPINE SERIES 3 VIEWS Clinical Statement: Low back pain. Sacroiliitis. Psoriasis. Psoriatic arthritis. No comparison FINDINGS: Five nonrib-bearing lumbar-type vertebral bodies. No acute fractures. There is severe degenerative disk disease with disk space narrowing and osteophyte formation at the L4-5 level. There is no spondylolisthesis. No erosions or marginal osteophytes. IMPRESSION: Severe degenerative disk disease at the L4-5 level. No erosions or acute osseous abnormality. BILATERAL KNEES, SIX VIEWS: FINDINGS: On the right side, postoperative changes are noted status post total knee arthroplasty. The hardware is intact. No erosions or joint effusion. On the left side postoperative changes are noted status post patellar arthroplasty. There are mild medial and lateral compartment degenerative changes with osteophyte formation. Multiple punctate metallic densities are noted in the suprapatellar region. No erosions or joint effusion IMPRESSION: Postoperative changes status post right total knee arthroplasty. Status post left patellar arthroplasty with mild medial and lateral compartment degenerative changes. No erosions are seen. BILATERAL SACROILIAC JOINTS, FOUR VIEWS: FINDINGS: Sacroiliac joints are symmetric in appearance. No erosions are shown. No suspicious lytic or sclerotic abnormalities are seen. There is mild calcific tendinopathy at the greater trochanter on the left side. IMPRESSION: No erosions or significant degenerative change involving the sacroiliac joints. BILATERAL FEET, FOUR VIEWS: FINDINGS: No acute fracture or dislocation identified bilaterally. On the right side there is mild posterior and moderate plantar calcaneal enthesopathy. No erosions or abnormal periosteal reaction. On the left side there is moderate plantar calcaneal enthesopathy. No erosions or periosteal reaction shown. IMPRESSION: Bilateral calcaneal enthesopathy. No erosions are shown. BILATERAL HANDS, SIX VIEWS: FINDINGS: On the right side there are mild to moderate degenerative changes consistent with osteoarthritis at the first carpometacarpal and trapezioscaphoid joints and the interphalangeal joint of the first digit. No erosions or periosteal reaction. On the left side there are mild degenerative changes especially at the first carpometacarpal joint and interphalangeal joint of the first digit and to a lesser extent the distal interphalangeal joints. No erosions or periosteal reaction. IMPRESSION: Mild left and fcfv-az-nxgpusaa right degenerative changes most consistent with osteoarthritis. No erosions are shown. ---- Electronic Signature on File ---- Signed By: Alejandra Chavez MD [email or web address] Dictated: 07/04/2019 1:01 PM Signed: 07/04/2019 1:10 PM Reported By: ALEJANDRA CHAVEZ M.D. Signed By: ALEJANDRA CHAVEZ M.D. [facility] LUMBAR SPINE 2 OR 3 VWSon LUMBAR SPINE 2 OR 3 VWS LUMBAR SPINE 2 O R 3 VWS, SACROILIAC JOINTS 3 OR MORE VW, HAND 2 VIEWS BILATERAL, KNEES 3 VIEWS BILATERAL, FOOT 2 VIEWS BILATERAL Ordering Physician: Eduardo Ruano DO 07/04/2019 12:00 PM LUMBAR SPINE SERIES 3 VIEWS Clinical Statement: Low back pain. Sacroiliitis. Psoriasis. Psoriatic arthritis. No comparison FINDINGS: Five nonrib-bearing lumbar-type vertebral bodies. No acute fractures. There is severe degenerative disk disease with disk space narrowing and osteophyte formation at the L4-5 level. There is no spondylolisthesis. No erosions or marginal osteophytes. IMPRESSION: Severe degenerative disk disease at the L4-5 level. No erosions or acute osseous abnormality. BILATERAL KNEES, SIX VIEWS: FINDINGS: On the right side, postoperative changes are noted status post total knee arthroplasty. The hardware is intact. No erosions or joint effusion. On the left side postoperative changes are noted status post patellar arthroplasty. There are mild medial and lateral compartment degenerative changes with osteophyte formation. Multiple punctate metallic densities are noted in the suprapatellar region. No erosions or joint effusion IMPRESSION: Postoperative changes status post right total knee arthroplasty. Status post left patellar arthroplasty with mild medial and lateral compartment degenerative changes. No erosions are seen. BILATERAL SACROILIAC JOINTS, FOUR VIEWS: FINDINGS: Sacroiliac joints are symmetric in appearance. No erosions are shown. No suspicious lytic or sclerotic abnormalities are seen. There is mild calcific tendinopathy at the greater trochanter on the left side. IMPRESSION: No erosions or significant degenerative change involving the sacroiliac joints. BILATERAL FEET, FOUR VIEWS: FINDINGS: No acute fracture or dislocation identified bilaterally. On the right side there is mild posterior and moderate plantar calcaneal enthesopathy. No erosions or abnormal periosteal reaction. On the left side there is moderate plantar calcaneal enthesopathy. No erosions or periosteal reaction shown. IMPRESSION: Bilateral calcaneal enthesopathy. No erosions are shown. BILATERAL HANDS, SIX VIEWS: FINDINGS: On the right side there are mild to moderate degenerative changes consistent with osteoarthritis at the first carpometacarpal and trapezioscaphoid joints and the interphalangeal joint of the first digit. No erosions or periosteal reaction. On the left side there are mild degenerative changes especially at the first carpometacarpal joint and interphalangeal joint of the first digit and to a lesser extent the distal interphalangeal joints. No erosions or periosteal reaction. IMPRESSION: Mild left and tbza-da-qpoqevpx right degenerative changes most consistent with osteoarthritis. No erosions are shown. ---- Electronic Signature on File ---- Signed By: Alejandra Chavez MD [email or web address] Dictated: 07/04/2019 1:01 PM Signed: 07/04/2019 1:10 PM Reported By: ALEJANDRA CHAVEZ M.D. Signed By: ALEJANDRA CHAVEZ M.D. Normal [facility] RA FACTOR QUANTon 07-04-2019 RA FACTOR QUANT LESS THAN 10 Normal Less than 15. [facility] Comment on above: Performed By: #### L 500.75667, L500.13346, L500.01744, L550.25066, L700.01540 #### [facility] [address] [place] [address]# [phone] SACROILIAC JOINTS 3 OR MORE VWon 07-04-2019 SACROILIAC JOINTS 3 OR MORE VW LUMBAR SPINE 2 OR 3 VWS, SACROILIAC JOINTS 3 OR MORE VW, HAND 2 VIEWS BILATERAL, KNEES 3 VIEWS BILATERAL, FOOT 2 VIEWS BILATERAL Ordering Physician: Eduardo Ruano DO 07/04/2019 12:00 PM LUMBAR SPINE SERIES 3 VIEWS Clinical Statement: Low back pain. Sacroiliitis. Psoriasis. Psoriatic arthritis. No comparison FINDINGS: Five nonrib-bearing lumbar-type vertebral bodies. No acute fractures. There is severe degenerative disk disease with disk space narrowing and osteophyte formation at the L4-5 level. There is no spondylolisthesis. No erosions or marginal osteophytes. IMPRESSION: Severe degenerative disk disease at the L4-5 level. No erosions or acute osseous abnormality. BILATERAL KNEES, SIX VIEWS: FINDINGS: On the right side, postoperative changes are noted status post total knee arthroplasty. The hardware is intact. No erosions or joint effusion. On the left side postoperative changes are noted status post patellar arthroplasty. There are mild medial and lateral compartment degenerative changes with osteophyte formation. Multiple punctate metallic densities are noted in the suprapatellar region. No erosions or joint effusion IMPRESSION: Postoperative changes status post right total knee arthroplasty. Status post left patellar arthroplasty with mild medial and lateral compartment degenerative changes. No erosions are seen. BILATERAL SACROILIAC JOINTS, FOUR VIEWS: FINDINGS: Sacroiliac joints are symmetric in appearance. No erosions are shown. No suspicious lytic or sclerotic abnormalities are seen. There is mild calcific tendinopathy at the greater trochanter on the left side. IMPRESSION: No erosions or significant degenerative change involving the sacroiliac joints. BILATERAL FEET, FOUR VIEWS: FINDINGS: No acute fracture or dislocation identified bilaterally. On the right side there is mild posterior and moderate plantar calcaneal enthesopathy. No erosions or abnormal periosteal reaction. On the left side there is moderate plantar calcaneal enthesopathy. No erosions or periosteal reaction shown. IMPRESSION: Bilateral calcaneal enthesopathy. No erosions are shown. BILATERAL HANDS, SIX VIEWS: FINDINGS: On the right side there are mild to moderate degenerative changes consistent with osteoarthritis at the first carpometacarpal and trapezioscaphoid joints and the interphalangeal joint of the first digit. No erosions or periosteal reaction. On the left side there are mild degenerative changes especially at the first carpometacarpal joint and interphalangeal joint of the first digit and to a lesser extent the distal interphalangeal joints. No erosions or periosteal reaction. IMPRESSION: Mild left and igwe-px-dqtskmup right degenerative changes most consistent with osteoarthritis. No erosions are shown. ---- Electronic Signature on File ---- Signed By: Alejandra Chavez MD [email or web address] Dictated: 07/04/2019 1:01 PM Signed: 07/04/2019 1:10 PM Reported By: ALEJANDRA CHAVEZ M.D. Signed By: ALEJANDRA CHAVEZ M.D. Normal [facility] URIC ACIDon 07-04-2019 Urate [Mass/Vol] 8.3 mg/dL High 2.6-6.0 [facility] Comment on above: Result Comment: Xena ents receiving Metamizole prior to venipuncture, may have falsely depressed results. Performed By: #### L 500.39131, L500.18695, L500.44106, L550.15471, L700.53054 #### [facility] [address] [place] [address] WSR/MODon 07-04-2019 WSR/MOD 4 MM/HR Normal 0-30 [facility] Comment on above: Performed By: #### L 200.79790, L200.66654 #### [facility] [address] [place] [address] PROGRESSon 08-07-2017 PROGRESS HNO ID: [id number]: Ju[place] () Lillie Hussein: RadiologyAuthoenrique Type: TechnicianType: Progress NotesFiled: 08/07/2017 11:07 AMNote Text: Radiology Service Progress NotePATIENT NAME: Judy TaverasCraigRN: [id number] OF SERVICE: August 07, 2017TIME: 11:06 AMPATIENT IDENTITY VERIFICATION COMPLETED USING TWO (2) METHODS: Patientconfirmed name verbally and ID band matches. and Patient confirmed nameverbally.PATIENT GENDER DATA: Female. status: : NoBreastfeeding status: NO.PATIENT RELEVANT IMPLANT DATA REVIEWED: YesRADIOLOGY DEPARTMENT: General X-ray: Exam(s) Completed: Chest X-RayPelvis X-Ray: sacroiliac jointsUpper Extremity X-Ray(s): Hand, bilateral :PERIPHERAL IV DATA: Not applicableSIGNED BY: Juana Rafaelstan RTJanuary 2017 11:06 AM Normal [facility] XR CHEST 2V FRONTAL/LATon XR CHEST 2V FRONTAL/LAT * * *Final Repor t* * *DATE OF EXAM: Aug 07 2017 11:18AM VHX 5291 - XR CHEST 2V FRONTAL/LAT / REASON: multiple diagnoses * * * * Physician Interpretation * * * * EXAMINATION: CHEST RADIOGRAPH (2 VIEW FRONTAL and LATERAL)Clinical History: Nicotine dependence, unspecified, uncomplicated Disorder of the skin and subcutaneous tissue, unspecifiedM: XC2_3Comparison:RESULT:L eva, tubes, and devices: None.Lungs and pleura: No consolidation. Minimal central peribronchial cuffing. No lung mass. No pleural effusion.Cardiomediastin al silhouette: Normal cardiomediastinal silhouette.Other:IMPRESS ION:No acute radiographic abnormality.Transcriptio nist: PSCB Transcribe Date/Time: Aug 07 2017 11:37ADictated by : DAVIDE SALINAS MDThis examination was interpreted and the report reviewed and electronically signed by: DAVIDE SALINAS MD on Aug 07 2017 11:37AM [id number] N [facility] XR HAND 3V PA/LAT/OBL LTon 0 08-07-2017 XR HAND 3V PA/LAT/OBL LT * * *Final Repo rt* * *DATE OF EXAM: Aug 07 2017 11:18AM VHX 5345 - XR HAND 3V PA/LAT/OBL LT / REASON: multiple diagnoses * * * * Physician Interpretation * * * * EXAMINATION: XR HAND 3V PA/LAT/OBL LT, XR HAND 3V PA/LAT/OBL RT, XR SI JTS 2V AP PELV/FERGUSONHISTORY: LEFT HAND PAIN AND JOINT SWELLING (accession [id number]), RIGHT HAND PAIN, AND JOINT SWELLING X 2 MONTHS, FALL X1 WEEK AGO LANDING ON RIGHT WRIST AREA (accession [id number]), LOWER BACK PAIN, NO KNOWN INJURIES (accession [id number]) Pain in right hand Pain in left hand Effusion, unspecified joint Disorder of the skin and subcutaneous tissue, unspecified.TECHNIQUE: XR HAND 3V PA/LAT/OBL LT, XR HAND 3V PA/LAT/OBL RT, XR SI JTS 2V AP PELV/TAYLOR Laterality: NOT APPLICABLE (accession [id number]), RIGHT (accession [id number]), NOT APPLICABLE (accession [id number]) Number of different views (projections): 2 (accession [id number]), 3 (accession [id number]), 2 (accession [id number]) M: XB_1COMPARISON: NoneRESULT:Sacroiliac joints. Bilaterally the joints are symmetrically patent with preserved cortices. No erosions or subchondral osteitis no signs of enthesitis in the demonstrated pelvis.Hands and wrists.Symmetric moderately advanced degenerative arthritis of the IP joints of the thumb and thumb bases. Remainder within normal limits without signs of an erosive or proliferative arthropathy.No other significant abnormality.IMPRESSION:N ormal sacroiliac joints.Symmetric moderately advanced degenerative arthritis of the thumb bases and IP joints of the thumbs.Yarn Comber: FK [employer] Transcribe Date/Time: Aug 07 2017 12:56PDictated by : RENAN ARMAS MDThis examination was interpreted and the report reviewed and electronically signed by: RENAN ARMAS MD on Aug 07 2017 1:00PM [id number] N [facility] XR HAND 3V PA/LAT/OBL RTon 0 08-07-2017 XR HAND 3V PA/LAT/OBL RT * * *Final Repo rt* * *DATE OF EXAM: Aug 07 2017 11:18AM VHX 5346 - XR HAND 3V PA/LAT/OBL RT / REASON: multiple diagnoses * * * * Physician Interpretation * * * * EXAMINATION: XR HAND 3V PA/LAT/OBL LT, XR HAND 3V PA/LAT/OBL RT, XR SI JTS 2V AP PELV/FERGUSONHISTORY: LEFT HAND PAIN AND JOINT SWELLING (accession [id number]), RIGHT HAND PAIN, AND JOINT SWELLING X 2 MONTHS, FALL X1 WEEK AGO LANDING ON RIGHT WRIST AREA (accession [id number]), LOWER BACK PAIN, NO KNOWN INJURIES (accession [id number]) Pain in right hand Pain in left hand Effusion, unspecified joint Disorder of the skin and subcutaneous tissue, unspecified.TECHNIQUE: XR HAND 3V PA/LAT/OBL LT, XR HAND 3V PA/LAT/OBL RT, XR SI JTS 2V AP PELV/TAYLOR Laterality: NOT APPLICABLE (accession [id number]), RIGHT (accession [id number]), NOT APPLICABLE (accession [id number]) Number of different views (projections): 2 (accession [id number]), 3 (accession [id number]), 2 (accession [id number]) M: XB_1COMPARISON: NoneRESULT:Sacroiliac joints. Bilaterally the joints are symmetrically patent with preserved cortices. No erosions or subchondral osteitis no signs of enthesitis in the demonstrated pelvis.Hands and wrists.Symmetric moderately advanced degenerative arthritis of the IP joints of the thumb and thumb bases. Remainder within normal limits without signs of an erosive or proliferative arthropathy.No other significant abnormality.IMPRESSION:N ormal sacroiliac joints.Symmetric moderately advanced degenerative arthritis of the thumb bases and IP joints of the thumbs.Yarn Comber: PSCB Transcribe Date/Time: Aug 07 2017 12:56PDictated by : RENAN ARMAS MDThis examination was interpreted and the report reviewed and electronically signed by: RENAN ARMAS MD on Aug 07 2017 1:00PM [id number] N [facility] XR SI JTS 2V AP PELV/FERGUSO Non 08-07-2017 XR SI JTS 2V AP PELV/TAYLOR * * *Final Report* * *DATE OF EXAM: Aug 07 2017 11:18AM VHX 5245 - XR SI JTS 2V AP PELV/TAYLOR / REASON: multiple diagnoses * * * * Physician Interpretation * * * * EXAMINATION: XR HAND 3V PA/LAT/OBL LT, XR HAND 3V PA/LAT/OBL RT, XR SI JTS 2V AP PELV/FERGUSONHISTORY: LEFT HAND PAIN AND JOINT SWELLING (accession [id number]), RIGHT HAND PAIN, AND JOINT SWELLING X 2 MONTHS, FALL X1 WEEK AGO LANDING ON RIGHT WRIST AREA (accession [id number]), LOWER BACK PAIN, NO KNOWN INJURIES (accession [id number]) Pain in right hand Pain in left hand Effusion, unspecified joint Disorder of the skin and subcutaneous tissue, unspecified.TECHNIQUE: XR HAND 3V PA/LAT/OBL LT, XR HAND 3V PA/LAT/OBL RT, XR SI JTS 2V AP PELV/TAYLOR Laterality: NOT APPLICABLE (accession [id number]), RIGHT (accession [id number]), NOT APPLICABLE (accession [id number]) Number of different views (projections): 2 (accession [id number]), 3 (accession [id number]), 2 (accession [id number]) M: XB_1COMPARISON: NoneRESULT:Sacroiliac joints. Bilaterally the joints are symmetrically patent with preserved cortices. No erosions or subchondral osteitis no signs of enthesitis in the demonstrated pelvis.Hands and wrists.Symmetric moderately advanced degenerative arthritis of the IP joints of the thumb and thumb bases. Remainder within normal limits without signs of an erosive or proliferative arthropathy.No other significant abnormality.IMPRESSION:N ormal sacroiliac joints.Symmetric moderately advanced degenerative arthritis of the thumb bases and IP joints of the thumbs.Yarn Comber: REBECCA Transcribe Date/Time: Aug 07 2017 12:56PDictated by : RENAN ARMAS MDThis examination was interpreted and the report reviewed and electronically signed by: RENAN ARMAS MD on Aug 07 2017 1:00PM [id number] N [facility] Outside Radiology Readon Outside Radiology Read This is a prelimi nary report only. This report will be final only after practitioner review and authentication has occurred.NAME: TRINA REAGAN#: [id number] OF STUDY: 06/14/2017RADIOLOGYREASO [place] FOR X-RAY: Right knee pain.X-rays obtained weightbearing AP, lateral, and patellar view x-rays of theright knee.FINDINGS: The patient has weightbearing AP, lateral, and patellar view x-raysof the right knee. She has undergone right total knee arthroplasty with atriathlon total knee arthroplasty. A primary CR femoral component has beenused. Tibial femoral alignment and patellofemoral alignment is anatomic.Minimal effusion seen in the knee joint. Slight lucency in zone 2 of thefemoral component on the lateral film can be seen. There is no evidence forloosening of this component. Tibial component is well fixed as is thepatellar component.IMPRESSION: Stable radiographic appearance.Evidence for patellofemoral replacement seen on the left. EUNICE PENNINGTON/MANUELL/[id number]: 06/14/2017 12:34:39 [facility] PT NAME: TRINA REAGAN#: [id number] [place] [address] ACCT: [id number]: [id number] RADIOLGY REPORT ADM DATE: Normal [facility] Vital Signs Date Time Vital Sign Value Performing Clinician Luzmariai ca 10-07-2024 12:20-0400 Body temperature 97.5 [degF] Dr. Hernandez Mosley MD Work Phone: [facility] 10-07-2024 12:20-0400 Diastolic blood pressure 91 mm[Hg] Dr. Hernandez Mosley MD Work Phone: [facility] 10-07-2024 12:20-0400 Heart rate 75 /min Dr. Hernandez Mosley MD Work Phone: [facility] 10-07-2024 12:20-0400 Respiratory rate 16 /min Dr. Hernandez Mosley MD Work Phone: [facility] 10-07-2024 12:20-0400 SaO2% (BldA) [Mass fraction] 100 % Dr. Hernandez Mosley MD Work Phone: [facility] 10-07-2024 12:20-0400 Systolic blood pressure 149 mm[Hg] Dr. Hernandez Mosley MD Work Phone: [facility] 10-07-2024 11:21-0400 Body height 162.[address] Hernandez Mosley MD Work Phone: [phone] [place] [address] 10-07-2024 11:21-0400 Body mass index (BMI) [Ratio] 28.3 kg/m2 Dr. Hernandez Mosley MD Work Phone: [phone] [place] [address] 10-07-2024 11:21-0400 Body weight [address] Hernandez Mosley MD Work Phone: [phone] [place] [address] 06-24-2024 09:37-0500 Body mass index (BMI) [Ratio] 28.1 kg/m2 Dr. Hernandez Mosley MD Work Phone: 3(087)108-951669 [place] [address] 06-24-2024 09:37-0500 Body temperature 98 [degF] Dr. Hernandez Mosley MD Work Phone: 7(276)602-302669 [place] [address] 06-24-2024 09:37-0500 Body weight 74.[address] Hernandez Mosley MD Work Phone: 9(434)055-282161 [address] 06-24-2024 09:37-0500 Diastolic blood pressure 88 mm[Hg] Dr. Hernandez Mosley MD Work Phone: 4(791)420-780669 [place] [address] 06-24-2024 09:37-0500 Heart rate 97 /min Dr. Hernandez Mosley MD Work Phone: [facility] 06-24-2024 09:37-0500 Respiratory rate 16 /min Dr. Hernandez Mosley MD Work Phone: [facility] 06-24-2024 09:37-0500 SaO2% (BldA) [Mass fraction] 98 % Dr. Hernandez Mosley MD Work Phone: [facility] 06-24-2024 09:37-0500 Systolic blood pressure 132 mm[Hg] Dr. Hernandez Mosley MD Work Phone: 1(758)571-721869 [place] [address] 11-14-2023 13:55-0400 Body temperature 97.4 [degF] Dr. Hernandez Mosley Work Phone: 4(800)401-678269 [place] [address] 11-14-2023 13:55-0400 Diastolic blood pressure 87 mm[Hg] Dr. Hernandez Mosley Work Phone: 5(942)667-051918 [place] [address] 11-14-2023 13:55-0400 Heart rate 80 /min Dr. Hernandez Mosley Work Phone: 6(210)829-257669 [place] [address] 11-14-2023 13:55-0400 Respiratory rate 16 /min Dr. Hernandez Mosley Work Phone: 0(877)864-990618 [place] [address] 11-14-2023 13:55-0400 SaO2% (BldA) [Mass fraction] 95 % Dr. Hernandez Mosley Work Phone: 1(981)378-888569 [place] [address] 11-14-2023 13:55-0400 Systolic blood pressure 120 mm[Hg] Dr. Hernandez Mosley Work Phone: 8(929)370-684469 [place] [address] 11-14-2023 12:05-0400 Body height 162.[address] Hernandez Mosley Work Phone: 8(720)447-707118 [place] [address] 11-14-2023 12:05-0400 Body mass index (BMI) [Ratio] 28.3 kg/m2 Dr. Hernandez Mosley Work Phone: 2(199)254-216369 [place] [address] 11-14-2023 12:05-0400 Body weight [address] Hernandez Mosley Work Phone: 9(533)561-346369 [place] [address] 10-18-2023 14:15-0400 Body height 162.[address] Hernandez Mosley Work Phone: 9(470)640-290769 [place] [address] 10-18-2023 14:15-0400 Body mass index (BMI) [Ratio] 28.1 kg/m2 Dr. Hernandez Mosley Work Phone: 2(337)056-629669 [place] [address] 10-18-2023 14:15-0400 Body weight 74.[address] Hernandez Mosley Work Phone: [facility] 10-18-2023 14:15-0400 Diastolic blood pressure 69 mm[Hg] Dr. Hernandez Mosley Work Phone: [facility] 10-18-2023 14:15-0400 Heart rate 92 /min Dr. Hernandez Mosley Work Phone: [facility] 10-18-2023 14:15-0400 Respiratory rate 17 /min Dr. Hernandez Mosley Work Phone: [facility] 10-18-2023 14:15-0400 SaO2% (BldA) [Mass fraction] 95 % Dr. Hernandez Mosley Work Phone: 1(830)199-754969 [place] [address] 10-18-2023 14:15-0400 Systolic blood pressure 115 mm[Hg] Dr. Hernandez Mosley Work Phone: 9(816)479-035669 [place] [address] 09-26-2023 09:00-0500 Body temperature 97.8 [degF] Dr. Hernandez Mosley Work Phone: 5(157)210-980969 [place] [address] 09-26-2023 09:00-0500 Diastolic blood pressure 88 mm[Hg] Dr. Hernandez Mosley Work Phone: 5(552)427-737269 [place] [address] 09-26-2023 09:00-0500 Heart rate 84 /min Dr. Hernandez Mosley Work Phone: 1(229)749-569369 [place] [address] 09-26-2023 09:00-0500 Respiratory rate 18 /min Dr. Hernandez Mosley Work Phone: 1(954)160-967869 [place] [address] 09-26-2023 09:00-0500 SaO2% (BldA) [Mass fraction] 98 % Dr. Hernandez Mosley Work Phone: 8(327)023-146469 [place] [address] 09-26-2023 09:00-0500 Systolic blood pressure 152 mm[Hg] Dr. Hernandez Mosley Work Phone: 3(188)216-290669 [place] [address] 09-26-2023 03:13-0500 Body mass index (BMI) [Ratio] 27.9 kg/m2 Dr. Hernandez Mosley Work Phone: 1(558)039-386169 [place] [address] 09-26-2023 03:13-0500 Body weight 74.[address] Hernandez Mosley Work Phone: 1(473)973-481069 [place] [address] 09-25-2023 15:08-0500 Body height 162.[address] Hernandez Mosley Work Phone: [facility] 09-24-2023 04:45-0500 Body temperature 97.8 [degF] Dr. Hernandez Mosley Work Phone: 9(548)895-465869 [place] [address] 09-24-2023 04:45-0500 Diastolic blood pressure 97 mm[Hg] Dr. Hernandez Mosley Work Phone: 8(669)349-970869 [place] [address] 09-24-2023 04:45-0500 Heart rate 96 /min Dr. Hernandez Mosley Work Phone: 4(502)654-360569 [place] [address] 09-24-2023 04:45-0500 Respiratory rate 18 /min Dr. Hernandez Mosley Work Phone: 5(134)878-009569 [place] [address] 09-24-2023 04:45-0500 SaO2% (BldA) [Mass fraction] 99 % Dr. Hernandez Mosley Work Phone: 9(900)047-118461 [address] 09-24-2023 04:45-0500 Systolic blood pressure 153 mm[Hg] Dr. Hernandez Mosley Work Phone: 5(252)815-201969 [place] [address] 09-24-2023 04:34-0500 Body height 162.[address] Hernandez Mosley Work Phone: 1(178)926-393869 [place] [address] 09-24-2023 04:34-0500 Body mass index (BMI) [Ratio] 28.3 kg/m2 Dr. Hernandez Mosley Work Phone: 4(695)336-498969 [place] [address] 09-24-2023 04:34-0500 Body weight [address] Hernandez Mosley Work Phone: 3(835)116-026169 [place] [address] 07-05-2023 09:42-0500 Body weight 75.[address] Hernandez Mosley Work Phone: 5(991)097-658769 [place] [address] 06-21-2023 18:09-0500 Body temperature 97.2 [degF] Dr. Hernandez Mosley Work Phone: [facility] 06-21-2023 18:09-0500 Diastolic blood pressure 96 mm[Hg] Dr. Hernandez Mosley Work Phone: [facility] 06-21-2023 18:09-0500 Heart rate 91 /min Dr. Hernandez Mosley Work Phone: [facility] 06-21-2023 18:09-0500 Respiratory rate 16 /min Dr. Hernandez Mosley Work Phone: [facility] 06-21-2023 18:09-0500 SaO2% (BldA) [Mass fraction] 94 % Dr. Hernandez Mosley Work Phone: [facility] 06-21-2023 18:09-0500 Systolic blood pressure 143 mm[Hg] Dr. Hernandez Mosley Work Phone: 3(037)439-008069 [place] [address] 06-21-2023 15:20-0500 Inhaled oxygen flow rate 4 L/min Dr. Hernandez Mosley Work Phone: [facility] 06-21-2023 09:45-0500 Body height 162.[address] Hernandez Mosley Work Phone: [facility] 06-21-2023 09:45-0500 Body mass index (BMI) [Ratio] 28 kg/m2 Dr. Hernandez Mosley Work Phone: [facility] 06-21-2023 09:45-0500 Body weight [address] Hernandez Mosley Work Phone: [facility] 04-22-2023 00:38-0400 Respiratory rate 116 /min Dr. Hernandez Mosley Work Phone: [facility] 04-21-2023 23:12-0400 Body height 162.[address] Hernandez Mosley Work Phone: [facility] 04-21-2023 23:12-0400 Body mass index (BMI) [Ratio] 29.4 kg/m2 Dr. Hernandez Mosley Work Phone: [facility] 04-21-2023 23:12-0400 Body temperature 96.7 [degF] Dr. Hernandez Mosley Work Phone: [facility] 04-21-2023 23:12-0400 Body weight 77.[address] Hernandez Mosley Work Phone: [facility] 04-21-2023 23:12-0400 Diastolic blood pressure 73 mm[Hg] Dr. Hernandez Mosley Work Phone: [facility] 04-21-2023 23:12-0400 Heart rate 70 /min Dr. Hernandez Mosley Work Phone: [facility] 04-21-2023 23:12-0400 SaO2% (BldA) [Mass fraction] 97 % Dr. Hernandez Mosley Work Phone: 7(852)911-287369 [place] [address] 04-21-2023 23:12-0400 Systolic blood pressure 115 mm[Hg] Dr. Hernandez Mosley Work Phone: 7(553)672-403869 [place] [address] 10-15-2022 14:12-0400 Body temperature 98.3 [degF] Dr. Hernandez Mosley Work Phone: 4(768)860-077869 [place] [address] 10-15-2022 14:12-0400 Diastolic blood pressure 79 mm[Hg] Dr. Hernandez Mosley Work Phone: [facility] 10-15-2022 14:12-0400 Heart rate 85 /min Dr. Hernandez Mosley Work Phone: [facility] 10-15-2022 14:12-0400 Respiratory rate 18 /min Dr. Hernandez Mosley Work Phone: [facility] 10-15-2022 14:12-0400 SaO2% (BldA) [Mass fraction] 98 % Dr. Hernandez Mosley Work Phone: [facility] 10-15-2022 14:12-0400 Systolic blood pressure 130 mm[Hg] Dr. Hernandez Mosley Work Phone: [facility] 10-14-2022 09:14-0400 Body height 162.[address] Hernandez Mosley Work Phone: [facility] 10-14-2022 09:14-0400 Body weight 72.[address] Hernandez Mosley Work Phone: [facility] 10-11-2022 20:21-0400 Inhaled oxygen flow rate 2 L/min Dr. Hernandez Mosley Work Phone: [facility] 10-11-2022 18:03-0400 Body mass index (BMI) [Ratio] 27.4 kg/m2 Dr. Hernandez Mosley Work Phone: [facility] 06-24-2022 10:35-0500 Body height 162.[address] Hernandez Mosley Work Phone: [facility] 12-22-2021 11:57-0400 Respiratory rate 16 /min [facility] Work Phone: 12-22-2021 10:20-0400 Diastolic blood pressure 97 mm[Hg] [facility] Work Phone: 12-22-2021 10:20-0400 Heart rate 113 /min [facility] Work Phone: 12-22-2021 10:20-0400 SaO2% (BldA) [Mass fraction] 97 % [facility] Work Phone: 12-22-2021 10:20-0400 Systolic blood pressure 159 mm[Hg] [facility] Work Phone: 12-22-2021 08:21-0400 Body height 162.56 cm [facility] Work Phone: 12-22-2021 08:21-0400 Body mass index (BMI) [Ratio] 28.4 kg/m2 [facility] Work Phone: 12-22-2021 08:21-0400 Body temperature 98.1 [degF] [facility] Work Phone: 12-22-2021 08:21-0400 Body weight 75.2 kg [facility] Work Phone: Encounters Encounter Date Encounter Type Care Provider Facility Start: 03-18-2025 ambulatory Stanley Citlali Facility :[facility] Start: 03-10-2025 ambulatory Hernandez [facility] Dimitri Facility:[facility] Start: 12-02-2024 End: 12-02-[address] Hernandez Mosley MD Work Phone: [facility] Work Phone: Start: 12-02-2024 End: 12-02-[address] Hernandez Mosley MD -Laboratory Work Phone: Start: 12-02-2024 End: 12-02-2024 [facility] Start: 10-28-2024 End: 10-28-2024 Patient encounter procedure Stanley Godwin DO -[facility] Work Phone: Start: 10-28-2024 End: 10-28-[address] Hernandez Mosley MD Work Phone: [facility] Work Phone: Start: 10-28-2024 End: 10-28-2024 ambulatory Stanley [place] Facility:[facility] Start: 10-07-2024 End: 10-07-2024 Admission to same day surgery center Dr. Montana Quiñonez MD -[facility] Start: 10-07-2024 End: 10-07-[address] Hernandez Mosley MD Work Phone: [facility] Work Phone: Start: 09-05-2024 ambulatory Hernandez Mosley Facility:[facility] Start: 08-12-2024 End: 08-12-2024 Patient encounter procedure Stanley Godwin DO -[facility] Work Phone: Start: 08-12-2024 End: 08-12-2024 ambulatory Hernandez [facility] Dimitri Facility:[facility] Start: 06-24-2024 End: 06-24-2024 Patient encounter procedure Gautam ROTH -[facility] Work Phone: Start: 06-24-2024 End: 06-24-2024 ambulatory Hernandez Chi Dimitri Facility:[facility] Start: 05-27-2024 End: 05-27-2024 ambulatory Hernandez Chi [place] Facility:[facility] Start: 05-24-2024 End: 05-24-2024 ambulatory Hernandez Chi [place] Facility:[facility] Start: 05-22-2024 End: 05-22-2024 ambulatory Hernandez Chi [place] Facility:[facility] Start: 05-03-2024 End: 05-03-2024 ambulatory Hernandez Chi [place] Facility:[facility] Start: 05-03-2024 End: 05-03-2024 ambulatory Hernandez Chi [place] Facility:[facility] Start: 04-19-2024 End: 04-19-2024 ambulatory Hernandez Chi [place] Facility:[facility] Start: 03-19-2024 End: 03-19-2024 ambulatory Hernandez Chi [place] Facility:[facility] Start: 11-14-2023 Non-patient / Non-visit Dr. Hernandez Mosley Work Phone: [facility] Start: 11-14-2023 End: 11-14-2023 Admission to same day surgery center Dr. Hernandez Mosley Work Phone: [facility]-Endoscopy Work Phone: Start: 11-14-2023 End: 11-14-[address] Hernandez Mosley Work Phone: [facility] Work Phone: Start: 11-13-2023 End: 11-13-[address] Hernandez Mosley Work Phone: [facility] Work Phone: Start: 11-10-2023 End: 11-10-[address] Hernandez Mosley Work Phone: [facility] Work Phone: Start: 10-27-2023 End: 10-27-[address] Hernandez Mosley Work Phone: [facility] Work Phone: Start: 10-27-2023 End: 10-27-[address] Hernandez Mosley Work Phone: [facility] Work Phone: Start: 10-24-2023 End: 10-24-[address] Hernandez Mosley Work Phone: [facility] Work Phone: Start: 10-24-2023 End: 10-24-[address] Hernandez Mosley Work Phone: [facility] Work Phone: Start: 10-23-2023 End: 10-23-[address] Hernandez Mosley Work Phone: [facility] Work Phone: Start: 10-18-2023 End: 10-18-[address] Hernandez Mosley Work Phone: [facility] Work Phone: Start: 09-26-2023 Non-patient / Non-visit Dr. Hernandez Mosley Work Phone: [facility] Work Phone: Start: 09-25-2023 Non-patient / Non-visit Dr. Hernandez Mosley Work Phone: [facility] Work Phone: Start: 09-25-2023 Non-patient / Non-visit Dr. Hernandez Mosley Work Phone: [facility] Start: 09-24-2023 Non-patient / Non-visit Dr. Hernandez Mosley Work Phone: [facility] Start: 09-24-2023 Non-patient / Non-visit Dr. Hernandez Mosley Work Phone: [facility] Work Phone: Start: 09-24-2023 End: 09-26-2023 Evaluation and management of inpatient Dr. Hernandez Mosley Work Phone: [facility]-Progressive Care Unit Work Phone: Start: 09-21-2023 End: 09-21-[address] Hernandez Mosley Work Phone: [facility] Work Phone: Start: 09-21-2023 End: 09-21-[address] Hernandez Mosley Work Phone: [facility]-Laboratory Work Phone: Start: 09-18-2023 End: 09-18-[address] Hernandez Mosley Work Phone: [facility] Work Phone: Start: 09-18-2023 End: 09-18-[address] Hernandez Mosley Work Phone: [facility]-Laboratory, Phy Office [address] [place] [address] Start: 08-21-2023 End: 08-21-[address] Hernandez Mosley Work Phone: [facility] Work Phone: Start: 08-17-2023 End: 08-17-[address] Hernandez Mosley Work Phone: [facility] Work Phone: Start: 08-17-2023 End: 08-17-[address] Hernandez Mosley Work Phone: [facility]-Physical Therapy Work Phone: Start: 08-17-[address] Hernandez tovar Work Phone: [facility]Physical Therapy Work Phone: Start: 08-04-2023 End: 08-04-[address] Hernandez Mosley Work Phone: [facility] Work Phone: Start: 07-07-[address] Hernandez tovar Work Phone: [facility]Physical Therapy Work Phone: Start: 07-05-2023 End: 07-05-[address] Hernandez Mosley Work Phone: [facility] Work Phone: Start: 07-05-2023 End: 07-05-[address] Hernandez Mosley Work Phone: [facility]-Laboratory, Phy Office 3rd Flr Start: 07-05-2023 End: 07-05-[address] Hernandez Mosley Work Phone: [facility] Work Phone: Start: 06-21-2023 Non-patient / Non-visit Dr. Hernandez Mosley Work Phone: [facility] Start: 06-21-2023 End: 06-21-2023 Admission to same day surgery center Dr. Hernandez Mosley Work Phone: [facility] Day [facility] Start: 06-21-2023 End: 06-21-[address] Hernandez Mosley Work Phone: [facility] Work Phone: Start: 06-19-2023 End: 06-19-2023 Non-patient / Non-visit Dr. Hernandez Mosley Work Phone: [facility] Work Phone: Start: 05-31-2023 End: 05-31-[address] Hernandez Mosley Work Phone: [facility] Work Phone: Start: 05-18-2023 End: 05-18-[address] Hernandez Mosley Work Phone: [facility] Work Phone: Start: 04-21-2023 End: 04-22-2023 Emergency department patient visit Dr. Hernandez Mosley Work Phone: [facility]-Emergency Department Work Phone: Start: 04-19-2023 End: 04-19-[address] Hernandez Mosley Work Phone: [facility] Work Phone: Start: 01-12-2023 End: 01-12-[address] Hernandez Mosley Work Phone: [facility] Work Phone: Start: 10-15-2022 Non-patient / Non-visit Dr. Hernandez Mosley Work Phone: [place] Start: 10-14-2022 Non-patient / Non-visit Dr. Hernandez Mosley Work Phone: [facility] Start: 10-13-2022 Non-patient / Non-visit Dr. Hernandez Mosley Work Phone: [place] Start: 10-13-2022 Non-patient / Non-visit Dr. Hernandez Mosley Work Phone: [facility] Start: 10-12-2022 Non-patient / Non-visit Dr. Hernandez Mosley Work Phone: [facility] Start: 10-11-2022 Non-patient / Non-visit Dr. Hernandez Mosley Work Phone: [facility] Start: 10-11-2022 Non-patient / Non-visit Dr. Hernandez Mosley Work Phone: [facility] Start: 10-11-2022 Non-patient / Non-visit Dr. Hernandez Mosley Work Phone: [place] Start: 10-11-2022 End: 10-15-2022 Evaluation and management of inpatient [facility] Start: 10-10-2022 Non-patient / Non-[facility] Start: 09-30-2022 End: 09-30-[address] Hernandez Mosley Work Phone: [facility] Start: 09-23-2022 End: 09-23-[address] Hernandez Mosley Work Phone: [facility] Work Phone: Start: 09-23-2022 End: 09-23-[address] Hernandez Mosley Work Phone: [facility]-Pulmonary Services/Neurology Start: 09-13-2022 End: 09-13-[address] Hernandez Mosley Work Phone: [facility] Work Phone: Start: 09-13-2022 End: 09-13-[address] Hernandez Mosley Work Phone: [facility]-Laboratory, Phy Office 3rd Flr Start: 09-07-2022 End: 09-07-[address] Hernandez Mosley Work Phone: [facility] Work Phone: Start: 09-07-2022 End: 09-07-[address] Hernandez Mosley Work Phone: [facility]-Outpatient Breast Imaging Start: 08-22-2022 Telephone encounter Uriel barr MD Work Phone: Pain Management Comment on above: Patient Question Start: 08-09-2022 End: 08-09-[address] Hernandez Mosley Work Phone: [facility] Work Phone: Start: 08-09-2022 End: 08-09-[address] Hernandez Mosley Work Phone: [facility]-Pre-Admission Testing Start: 08-04-2022 End: 08-04-[address] Hernandez Mosley Work Phone: [facility] Work Phone: Start: 08-04-2022 End: 08-04-[address] Hernandez Mosley Work Phone: [facility]-Laboratory, Phy Office 3rd Flr Start: 06-30-2022 End: 06-30-[address] Hernandez Mosley Work Phone: [facility] Start: 06-24-2022 End: 06-24-[address] Hernandez Mosley Work Phone: [facility] Start: 06-09-2022 End: 06-09-[address] Hernandez Mosley Work Phone: [facility] Start: 06-06-2022 End: 06-06-2022 ambulatory KRIS BERNARDO Facility[facility] Start: 05-30-2022 End: 05-30-2022 ambulatory YUMIKO WELSH Facility:[facility] Start: 05-19-2022 Telephone encounter Yumiko Henry Work Phone: Podiatry Comment on above: Schedule Surgery Start: 05-18-2022 End: 05-18-2022 ambulatory YUMIKO WELSH Facility:[facility] Start: 05-18-2022 End: 05-18-2022 Subsequent hospital visit by physician Pau [facility] Work Phone: Radiology Comment on above: Hallux limitus, acqu ired, unspecified laterality [M20.5X9] Start: 05-18-2022 End: 05-18-2022 Patient encounter procedure Yumiko Welsh Work Phone: Podiatry Comment on above: Hallux limitus, acqu ired, unspecified laterality (Primary Dx) Start: 05-04-2022 Telephone encounter Yumiko Henry Work Phone: Podiatry Comment on above: Patient Question (Ri ght Big toe) Start: 05-02-2022 End: 05-02-2022 ambulatory KRIS BERNARDO Facility:[facility] Start: 05-02-2022 End: 05-02-2022 Subsequent hospital visit by physician General Marion Mob Work Phone: Radiology Comment on above: Pain in both knees, unspecified chronicity [M25.561, M25.562] Start: 04-27-2022 Telephone encounter Jesus Alberto fulton [employer] Work Phone: Orthopaedics Comment on above: appointment conflict Start: 04-26-2022 Orders Only Jesus Alberto Harris [employer] Work Phone: Orthopaedics Comment on above: Pain in both knees, unspecified chronicity (Primary Dx) Start: 04-25-2022 Telephone encounter Christian nova MD Work Phone: Orthopaedics Comment on above: Patient Question Start: 03-09-2022 End: 03-09-2022 Patient encounter procedure [facility]Laboratory, Phy Office 3rd Flr Start: 12-22-2021 End: 12-22-2021 Emergency department patient visit [facility]Emergency Department Start: 10-18-2021 End: 10-18-2021 Patient encounter procedure [facility]-Cat Scan, [facility] Start: 10-18-2021 End: 10-18-2021 Patient encounter procedure [facility]-Cat Scan, [facility] Start: 09-10-2021 End: 09-10-2021 Patient encounter procedure [facility]-Laboratory, Phy Office 3rd Flr Start: 08-31-2021 End: 08-31-2021 ambulatory YUMIKO BROWNROSETTE Facility:[facility] Start: 07-14-2021 Patient encounter procedure [facility]-Outpatient Bone Densitometry Start: 08-08-2017 Ambulatory TRINIDAD KAY Facili ty:[id number] Start: 08-07-2017 Ambulatory [facility] Start: 06-14-2017 Ambulatory S[facility] ility:[facility] Start: 06-14-2017 Ambulatory TRINIDAD KAY Facility :[id number] Procedures Date Procedure Procedure Detail Performing Clinician Start: 10-07-2024 Local anesthetic sacral epidural block Dr. Hernandez Mosley MD Work Phone: Start: 10-07-2024 Injection of spinal epidural space Dr. Kizzy Mosley MD Work Phone: Start: 10-07-2024 Injection using fluoroscopic guidance Dr. Hernandez Mosley MD Work Phone: Start: 08-12-2024 Computed tomography of abdomen and pelvis with contrast Dr. Hernandez Mosley MD Work Phone: Start: 11-14-[address] Hernandez Mosley Work Phone: Start: 10-27-2023 Diagnostic radiography of abdomen Dr. Jer Mosley Work Phone: Start: 10-24-2023 Diagnostic radiography of abdomen Dr. Jer Mosley Work Phone: Start: 09-25-[address] Hernandez Mosley Work Phone: Start: 09-24-2023 Computed tomography of abdomen and pelvis with contrast Dr. Hernandez Mosley Work Phone: Start: 09-21-2023 Computed tomography of abdomen and pelvis with contrast Dr. Hernandez Mosley Work Phone: Start: 09-21-[address] Hernandez Mosley Work Phone: Start: 09-21-2023 Measurement of occult blood in stool specimen using immunoassay Dr. Hernandez Mosley Work Phone: Start: 09-21-2023 Ova OR parasites identification Dr. Hernandez Mosley Work Phone: Start: 08-04-2023 Radiologic examination of knee Dr. Hernandez tovar Work Phone: Start: 06-21-2023 Radiologic examination of knee Dr. Hernandez tovar Work Phone: Start: 06-21-[address] Hernandez Mosley Work Phone: Start: 06-19-2023 Nasal Screen MRSA/MSSA Dr. Hernandez Mosley Work Phone: Start: 05-31-2023 Radiologic examination of knee Dr. Hernandez tovar Work Phone: Start: 05-18-2023 Radiologic examination of knee Dr. Hernandez tovar Work Phone: Start: 04-21-2023 Plain x-ray of pelvis and lower extremity Dr. Hernandez Mosley Work Phone: Start: 04-21-2023 Plain X-ray of shoulder Dr. Hernandez Mosley Work Phone: Start: 04-19-2023 Plain x-ray of pelvis and lower extremity Dr. Hernandez Mosley Work Phone: Start: 04-19-2023 X-ray of lumbar spine, two or three views Dr. Hernandez Mosley Work Phone: Start: 01-12-2023 X-ray of lumbar spine, two or three views Dr. Hernandez Mosley Work Phone: Start: 10-13-2022 Plain chest X-ray Dr. Hernandez Mosley Work Phone: Start: 10-11-[address] Hernandez Mosley Work Phone: Start: 10-11-[address] Hernandez Mosley Work Phone: Start: 10-11-2022 360 Lumbar Fusion (Not Applicable) Dr. Kizzy Mosley Work Phone: Start: 10-11-[address] Hernandez Mosley Work Phone: Start: 09-07-[address] Hernandez Mosley Work Phone: Start: 06-24-2022 X-ray of lumbar spine, two or three views Dr. Hernandez Mosley Work Phone: Start: 06-09-2022 MRI of lumbar spine Dr. Hernandez Mosley Work Phone: Start: 05-18-2022 Radex foot complete minimum 3 views Yumiko Welsh Work Phone: Start: 05-02-2022 Radiologic examination knee 3 views Jesus Alberto Melchor MANCUSO Work Phone: Start: 10-18-2021 Computed tomography of abdomen and pelvis with contrast Start: 07-14-2021 Dual energy X-ray absorptiometry Start: 07-14-2021 Screening mammography Start: 08-16-2018 Colonoscopy Christian Dunne MD Work Phone: Start: 09-16-2015 Mammography Christian Dunne MD Work Phone: Start: 05-26-2014 Lipid 1996 panel - Serum or Plasma Xr Mo b Work Phone: Start: 10-25-2013 H/O: artificial joint Knee joint replacement by other means Christian Dunne MD Work Phone: History of operative procedure on knee History of arthroplasty of knee Dr. Hernandez Mosley Work Phone: History of operative procedure on knee History of partial knee replacement Dr. Hernandez Mosley Work Phone: Influenza Types A,B Direct FA (PIEDAD) Dr. Hernandez Mosley Work Phone: Nasal Screen MRSA/MSSA Dr. Kizzy Mosley Work Phone: Respiratory syncytia l virus antigen assay Dr. Hernandez Mosley Work Phone: Urine culture Dr. Hernandez Mosley Work Phone: Plan of Treatment Date Care Activity Detail Author Start: 08-16-2028 Colonoscopy COLONOSCOPY [facility] Start: 08-16-2028 COLORECTAL CANCER SCREENING COLORECTAL CANCER SCREENING [facility] Start: 10-07-2024 Njx dx/ther sbst int rlmnr lmbr/sac w/img gdn NJX INTERLAMINAR LMBR/SAC [facility] Start: 10-07-2024 Injection of spinal epidural space [facility] Start: 10-07-2024 Injection using fluoroscopic guidance [facility] Start: 10-07-2024 Patient discharge [facility] Start: 11-14-2023 Patient discharge [facility] Start: 10-23-2023 Patient referral [facility] Work Phone: Start: 09-27-2023 Blood chemistry [facility] Start: 09-26-2023 Patient discharge [facility] Start: 09-24-2023 Serum immunofixation [facility] Start: 09-24-2023 [facility] Start: 09-24-2023 [facility] Start: 09-24-2023 Referral to gastroenterology service [facility] Start: 09-24-2023 Thyroid stimulating hormone measurement [facility] Start: 09-24-2023 [facility] Start: 09-24-2023 Application of intermittent pneumatic compression device [facility] Start: 09-24-2023 Following clinical p athway protocol [facility] Start: 09-24-2023 Assessment of risk o f venous thromboembolism [facility] Start: 09-24-2023 Incentive spirometry [facility] Start: 09-24-2023 Inhalation therapy procedure [facility] Start: 09-24-2023 Insertion of cathete r into peripheral vein [facility] Start: 09-24-2023 Measuring intake and output [facility] Start: 09-24-2023 Oxygen therapy [facility] Start: 09-24-2023 Providing care accor ding to standard [facility] Start: 09-24-2023 Provision of activit y privileges [facility] Start: 09-24-2023 Referral to service [facility] Start: 09-24-2023 [facility] Start: 09-24-2023 Verification routine [facility] Start: 09-24-2023 Admission procedure [facility] Start: 09-21-2023 Procedure [facility] Start: 08-04-2023 Patient referral [facility] Work Phone: Start: 07-31-2023 DIABETES SCREEN DIABETES SCREEN [facility] Start: 07-31-2023 Diabetes Screening Diabetes Screenin g [facility] Start: 06-21-2023 Anes open proc upper ends tibia fibula&/patella ANESTH KNEE AREA SURGERY [facility] Start: 06-21-2023 Arthroplasty patella w/prosthesis REVISE KNEECAP WITH IMPLANT [facility] Start: 06-21-2023 Radiologic examinati on of knee Knee 1 or 2 Views [facility] Start: 06-21-2023 XR Knee 1 or 2 Views [facility] Start: 06-21-2023 Application of ice c ollar, cap or bag [facility] Start: 06-21-2023 Exercises [facility] Start: 06-21-2023 Incentive spirometry [facility] Start: 06-21-2023 Neurovascular assessment [facility] Start: 06-21-2023 Patient discharge [facility] Start: 06-21-2023 Patient education [facility] Start: 06-21-2023 Provision of activit y privileges [facility] Start: 06-21-2023 Recommendation to co everardo with treatment [facility] Start: 06-21-2023 Referral to service [facility] Start: 06-21-2023 Vital signs measurements [facility] Start: 06-21-2023 Wound care [facility] Start: 06-21-2023 [facility] Start: 03-24-2023 Influenza vaccination Influenza Vacc ine (#1) [facility] Start: 10-15-2022 Patient discharge [facility] Start: 10-11-2022 Following clinical p athway protocol [facility] Start: 10-11-2022 Application of intermittent pneumatic compression device [facility] Start: 10-11-2022 Catheterization of vein [facility] Start: 10-11-2022 Consultation [facility] Start: 10-11-2022 Following clinical p athway protocol [facility] Start: 10-11-2022 Maintenance of drain age tube [facility] Start: 10-11-2022 Measuring intake and output [facility] Start: 10-11-2022 Neurovascular assessment [facility] Start: 10-11-2022 Oxygen therapy [facility] Start: 10-11-2022 Patient education [facility] Start: 10-11-2022 Procedure discontinued [facility] Start: 10-11-2022 Provision of activit y privileges [facility] Start: 10-11-2022 Recommendation to co everardo with treatment [facility] Start: 10-11-2022 Referral to service [facility] Start: 10-11-2022 Taking patient vital signs [facility] Start: 10-11-2022 Admission procedure [facility] Start: 10-11-2022 [facility] Start: 09-10-2022 Pneumococcal vaccination Pneum ococcal Vaccine (3 - PCV) [facility] Start: 03-24-2022 Influenza vaccination INFLUENZA (#1) [facility] Start: 2022 RSV Vaccine (1 - 1-d ose 60+ series) RSV Vaccine (1 - 1-dose 60+ series) [facility] Start: 07-24-2021 DEPRESSION ASSESSMENT DEPRESSION ASS ESSMENT [facility] Start: 11-24-2020 COVID-19 VACCINE (3 - Pfizer risk series) COVID-19 VACCINE (3 - Pfizer risk series) [facility] Start: 05-26-2019 Lipid 1996 panel - S [place] or Plasma Lipid Screening [facility] Start: 05-26-2019 LIPID SCREEN LIPID SCREEN [facility] Start: 10-16-2017 Urine microalbumin profile [facility] Start: 06-08-2017 FECAL OCCULT BLOOD FECAL OCCULT BLOO D [facility] Start: 09-16-2016 Mammography [facility] Start: 12-09-2011 PNEUMOCOCCAL (2 - PCV) PNEUMOCOCCAL (2 - PCV) [facility] Start: 2007 COLOGUARD (FIT-DNA) COLOGUARD (FIT-D NA) [facility] Start: [address] COLONOGRAPHY [facility] Start: 2007 SIGMOIDOSCOPY SIGMOIDOSCOPY [facility] Start: 1981 SHINGRIX VACCINE (1 of 2) BOWER GRIX VACCINE (1 of 2) [facility] Start: 02-08-1980 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 MARIO DISEASE VISIT ANNUAL PCP TEAM CHRONIC DISEASE VISIT [facility] Start: 02-08-1980 BP CONTROLLED (<130/80) BP CONTROLLE D (<130/80) [facility] Start: 02-08-1980 HIV SCREENING HIV SCREENING [facility] Alanine aminotransfe rase [Enzymatic activity/volume] in Serum or Plasma [facility] Albumin [Mass/volume ] in Serum or Plasma [facility] Albumin [Moles/volum e] in Serum or Plasma [facility] Albumin/Globulin ratio [facility] Alkaline phosphatase [Enzymatic activity/volume] in Serum or Plasma [facility] Anion gap measurement [facility] Aspartate aminotrans ferase [Enzymatic activity/volume] in Serum or Plasma [facility] Beef IgE Ab [Units/v olume] in Serum [facility] Bilirubin, total measurement [facility] BUN/Creatinine ratio [facility] Calcium [Mass/volume ] in Serum or Plasma [facility] Carbon dioxide, tota l [Moles/volume] in Serum or Plasma [facility] Chloride [Moles/volu me] in Serum or Plasma [facility] Chocolate IgE Ab [Units/volume] in Serum [facility] Codfish IgE Ab [Units/volume] in Serum [facility] Darlington IgE Ab [Units/v olume] in Serum [facility] Cow milk IgE Ab [Units/volume] in Serum [facility] Creatinine [Moles/vo lume] in Serum or Plasma [facility] Electrophoresis: [id number] [facility] Electrophoresis: nestor ma globulin [facility] Erythrocyte mean corpuscular volume determination [facility] Gastrin [Mass/volume ] in Serum or Plasma [facility] Gliadin peptide IgA Ab [Units/volume] in Serum [facility] Gliadin peptide IgG Ab [Units/volume] in Serum [facility] Globulin measurement [facility] Glucose [Mass/volume ] in Serum or Plasma [facility] Hematocrit [Volume Fraction] of Blood [facility] Hemoglobin [Mass/vol ume] in Blood [facility] IgA [Mass/volume] in Serum or Plasma [facility] IgG [Mass/volume] in Serum or Plasma [facility] IgG subclass 1 [Mass/volume] in Serum [facility] IgG subclass 2 [Mass/volume] in Serum [facility] IgG subclass 3 [Mass/volume] in Serum [facility] IgG subclass 4 [Mass/volume] in Serum [facility] IgM [Mass/volume] in Serum or Plasma [facility] Leukocytes [#/volume ] in Blood [facility] Magnesium [Mass/volu me] in Serum or Plasma [facility] Mean corpuscular hemoglobin concentration determination [facility] Mean corpuscular hemoglobin determination [facility] Measurement of immunoglobulin A in serum specimen [facility] Measurement of renal function [facility] Neutrophil count [facility] Neutrophil cytoplasm ic Ab.classic [Units/volume] in Serum [facility] Neutrophil percent differential count [facility] Ova and parasites identified in Unspecified specimen by Light microscopy [facility] P-ANCA measurement [facility] Patient Education [facility] Work Phone: Patient referral [facility] Work Phone: Peanut IgE Ab [Units/volume] in Serum [facility] Platelets [#/volume] in Blood [facility] Pork IgE Ab [Units/v olume] in Serum [facility] Potassium [Moles/vol ume] in Serum or Plasma [facility] Procedure [facility] Protein electrophore sis panel - Serum or Plasma [facility] Red blood cell count [facility] Red cell distributio n width determination [facility] Olivet IgE Ab [Units/volume] in Serum [facility] Serum inorganic phos phate measurement [facility] Shrimp IgE Ab [Units/volume] in Serum [facility] Sodium [Moles/volume ] in Serum or Plasma [facility] Soybean IgE Ab [Units/volume] in Serum [facility] Tissue transglutamin ase IgA Ab [Units/volume] in Serum [facility] Total protein measurement [facility] Tuna IgE Ab [Units/v olume] in Serum [facility] Urea nitrogen [Mass/volume] in Serum or Plasma [facility] Wheat IgE Ab [Units/volume] in Serum [facility] Whole Egg IgE Ab [Units/volume] in Serum [facility] End: 06-17-2023 XR FOOT GENERAL 3V AP/LAT/OBL RIGHT XR FOOT GENERAL 3V AP/LAT/OBL RIGHT Radiology Routine Hallux limitus, acquired, unspecified laterality 1 Occurrences starting 05/18/2022 until 06/17/2023 [facility] Work Phone: Comment on above: 1 Occurrences starti ng 05/18/2022 until 06/17/2023 XR FOOT GENERAL 3V AP/LAT/OBL RIGHT XR FOOT GENERAL 3V AP/LAT/OBL RIGHT Radiology Routine Hallux limitus, acquired, unspecified laterality 05/18/2022 5:14 PM EDT [facility] Work Phone: End: 05-26-2023 XR KNEE POST OP 3V AP/LAT/MERCHANT BILATERAL XR KNEE POST OP 3V AP/LAT/MERCHANT BILATERAL Radiology Routine Pain in both knees, unspecified chronicity 1 Occurrences starting 04/27/2022 until 05/26/2023 [facility] Work Phone: Comment on above: 1 Occurrences starti ng 04/27/2022 until 05/26/2023 [facility] Immunizations Immunization Date Immunization Notes Care Provider Fa melecio 10-05-2020 COVID-19 original vaccine, age 12+ yr, monovalent (PFIZER-BIONTAunt Kitchen - PURPLE TOP) Christian Dunne MD Work Phone: [facility] 05-25-2020 influenza virus vacc ine, unspecified formulation [employer] Work Phone: [facility] 12-08-2010 pneumococcal polysaccharide vaccine, 23 valent Christian Dunne MD Work Phone: [facility] 10-17-2007 tetanus toxoid, redu louie diphtheria toxoid, and acellular pertussis vaccine, adsorbed Christian Dunne MD Work Phone: [facility] Work Phone: Payers Date Payer Category Payer Unknown [id number] 2024 Medicare [id number] 2021 Medicare [id number] 2021 Private Health Insurance [id number] 2017 Self-pay Private Health [facility] [id number] Unknown [id number] Unknown [id number] Unknown [id number] 62 Unknown [id number] 62 Unknown [id number] [id number] 62 Unknown [id number] [id number] 62 Unknown [id number] [id number] 62 Unknown [id number] 62 Unknown [id number] [id number] 62 Unknown [id number] [id number] 62 Unknown [id number] [id number] 62 Unknown [id number] [id number] 62 Unknown [id number] [id number] 62 Unknown [id number] [id number] 62 Unknown [id number] [id number] 62 Unknown [id number] [id number] 62 Unknown [id number] [id number] 62 Unknown [id number] 62 Unknown [id number] 62 Social History Date Type Detail Facility Start: 01-16-2020 End: 07-05-2023 Tobacco smoking status SCIS Unknown if ever smoked [facility] Start: 06-21-2019 Rare [facility] Start: 06-21-2019 None [facility] Start: 06-21-2019 Spouse/ Signif icant Other [facility] Start: 1960 Sex Assigned At Female W [facility] Start: 08-15-2018 End: 10-04-2024 Tobacco smoking status NHIS Ex-smoker [facility] End: 07-24-2016 History of tobacco use Current smoker [facility] End: 07-24-2016 History of tobacco use Cigarette Smoker [facility] Start: 08-15-2018 End: 06-28-2020 Cigarettes smoked current (pack per day) - Reported 0.5 [facility] Start: 08-15-2018 Tobacco use and exposure User of smokeless tobacco [facility] Start: 08-31-2021 End: 05-18-2022 Alcohol intake Current drinker of alcohol (finding) [facility] Start: 01-28-2021 History SDOH Alcohol Frequency 3 [facility] Start: 01-28-2021 History SDOH Alcohol Std Drinks 1 [facility] Start: 01-28-2021 History SDOH Social Connections Phone 5 [facility] Start: 01-28-2021 History SDOH Social Connections Get Together 4 [facility] Start: 01-28-2021 History SDOH Physica l Activity DPW 2 [facility] Start: 01-28-2021 Education 12 [facility] Start: 08-07-2017 Tobacco Comment currently on e-cig C [facility] Start: 1960 Sex Assigned At Not on file C [facility] Start: 04-11-2022 End: 05-18-2022 Exposure to SARS-CoV-2 (event) Not sure [facility] Start: 05-30-2022 Tobacco use and exposure Smokeless tobacco non-user [facility] Start: 05-30-2022 Alcohol intake Ex-drinker (finding) [facility] Start: 05-30-2022 Alcohol Comment Socially [facility] Start: 06-28-2020 End: 01-28-2021 Social connection and isolation panel [facility] Do you belong to any clubs or organizations such as synagogue groups, unions, fraternal or athletic groups, or school groups? Yes [facility] Are you now , , , , never or living with a partner? [facility] How often to you hav e a drink containing alcohol? 2-4 times a month [facility] How many standard drinks containing alcohol do you have on a typical day? 1 or 2 [facility] How often do you hav e 6 or more drinks on 1 occasion? Never [facility] Adult Depression Screening Assessment 0 [facility] Do you feel stress - tense, restless, nervous, or anxious, or unable to sleep at night because your mind is troubled all the time - these days [OSQ] Only a little [facility] (I/We) worried wheth er (my/our) food would run out before (I/we) got money to buy more. Never true [facility] At any time in the p ast 12 months, were you homeless or living in detention [including now]? No [facility] Start: 10-07-2024 End: 11-01-2024 Sex Female (finding) [facility] NEGATED: Highlighted row [facility] NEGATED: Highlighted row Not [facility] Medical Equipment Procedure Code Equipment Code Equipment Origin al Text Equipment Identifier Dates Total knee replacement Orthopaedic cement, non-antimicrobial [id number] FDA Start: 06-21-2023 Total knee replacement ([id number] Polyethylene patella prosthesis [id number] FDA Start: 06-21-2023 Simplex P Bone Cement Radiopaque Full Dose Individual Pack - [id number] Start: 12-07-2010 Ins Tib 3 9mm Kn X3 Cr Trthln - [id number] Start: 12-07-2010 Ins Tib 3 11mm K n X3 Cs Trthln - [id number] Start: 07-01-2014 Comp Pat 10mm 32 mm Asym Trthln - [id number] Start: 12-07-2010 Baseplt Tib Trth ln 3 Prim - [id number] Start: 12-07-2010 23MM PLATE FDA Start: 10-11-2022 STRIP,BONE CANC [id number] FDA Start: 10-11-2022 STRIP,BONE CANC [id number] FDA Start: 10-11-2022 STRIP,BONE CANC [id number] FDA Start: 10-11-2022 SUTURE,LIGA CLIP MED [id number] FDA Start: 10-11-2022 SUTURE,LIGA CLIP MED [id number] FDA Start: 10-11-2022 SUTURE,LIGA CLIP SM [id number] FDA Start: 10-11-2022 VARIABLE SCREWS FDA Start: 10-11-2022 VARIABLE SCREWS FDA Start: 10-11-2022 VARIABLE SCREWS FDA Start: 10-11-2022 VARIABLE SCREWS FDA Start: 10-11-2022 AXLE CONSTRUCT FDA Start: 10-11-2022 CLIP,LIGA LG FDA Start: 10-11-2022 DRESSING,SURGICE L 4x8 FDA Start: 10-11-2022 F3D ALIF FDA Start: 10-11-2022 INFLUX SPARC [id number] FDA Start: 10-11-2022 PATCH,AMNION 2X3CM FDA Start: 10-11-2022 PATCH,AMNION 2X3CM FDA Start: 10-11-2022 SPACER,10MM INTERLAM FDA Star t: 10-11-2022 23MM PLATE FDA Start: 10-11-2022 STRIP,BONE CANC [id number] FDA Start: 10-11-2022 STRIP,BONE CANC [id number] FDA Start: 10-11-2022 STRIP,BONE CANC [id number] FDA Start: 10-11-2022 SUTURE,LIGA CLIP MED [id number] FDA Start: 10-11-2022 SUTURE,LIGA CLIP MED [id number] FDA Start: 10-11-2022 SUTURE,LIGA CLIP SM [id number] FDA Start: 10-11-2022 VARIABLE SCREWS FDA Start: 10-11-2022 VARIABLE SCREWS FDA Start: 10-11-2022 VARIABLE SCREWS FDA Start: 10-11-2022 VARIABLE SCREWS FDA Start: 10-11-2022 AXLE CONSTRUCT FDA Start: 10-11-2022 CLIP,LIGA LG FDA Start: 10-11-2022 DRESSING,SURGICE L 4x8 FDA Start: 10-11-2022 F3D ALIF FDA Start: 10-11-2022 INFLUX SPARC [id number] FDA Start: 10-11-2022 PATCH,AMNION 2X3CM FDA Start: 10-11-2022 PATCH,AMNION 2X3CM FDA Start: 10-11-2022 SPACER,10MM INTERLAM FDA Star t: 10-11-2022 23MM PLATE FDA Start: 10-11-2022 STRIP,BONE CANC [id number] FDA Start: 10-11-2022 STRIP,BONE CANC [id number] FDA Start: 10-11-2022 STRIP,BONE CANC [id number] FDA Start: 10-11-2022 SUTURE,LIGA CLIP MED [id number] FDA Start: 10-11-2022 SUTURE,LIGA CLIP MED [id number] FDA Start: 10-11-2022 SUTURE,LIGA CLIP SM LT-100 FDA Start: 10-11-2022 VARIABLE SCREWS FDA Start: 10-11-2022 VARIABLE SCREWS FDA Start: 10-11-2022 VARIABLE SCREWS FDA Start: 10-11-2022 VARIABLE SCREWS FDA Start: 10-11-2022 AXLE CONSTRUCT FDA Start: 10-11-2022 CLIP,LIGA LG FDA Start: 10-11-2022 DRESSING,SURGICE L 4x8 FDA Start: 10-11-2022 F3D ALIF FDA Start: 10-11-2022 INFLUX SPARC [id number] FDA Start: 10-11-2022 PATCH,AMNION 2X3CM FDA Start: 10-11-2022 PATCH,AMNION 2X3CM FDA Start: 10-11-2022 SPACER,10MM INTERLAM FDA Star t: 10-11-2022 23MM PLATE FDA Start: 10-11-2022 STRIP,BONE CANC [id number] FDA Start: 10-11-2022 STRIP,BONE CANC [id number] FDA Start: 10-11-2022 STRIP,BONE CANC [id number] FDA Start: 10-11-2022 SUTURE,LIGA CLIP MED [id number] FDA Start: 03-21-2023 SUTURE,LIGA CLIP MED [id number] FDA Start: 10-11-2022 SUTURE,LIGA CLIP SM LT-100 FDA Start: 10-11-2022 VARIABLE SCREWS FDA Start: 10-11-2022 VARIABLE SCREWS FDA Start: 10-11-2022 VARIABLE SCREWS FDA Start: 10-11-2022 VARIABLE SCREWS FDA Start: 10-11-2022 AXLE CONSTRUCT FDA Start: 10-11-2022 CLIP,LIGA LG FDA Start: 10-11-2022 DRESSING,SURGICE L 4x8 FDA Start: 10-11-2022 F3D ALIF FDA Start: 10-11-2022 INFLUX SPARC [phone] FDA Start: 10-11-2022 PATCH,AMNION 2X3CM FDA Start: 10-11-2022 PATCH,AMNION 2X3CM FDA Start: 10-11-2022 SPACER,10MM INTERLAM FDA Star t: 10-11-2022 23MM PLATE FDA Start: 10-11-2022 STRIP,BONE CANC [id number] FDA Start: 10-11-2022 STRIP,BONE CANC [id number] FDA Start: 10-11-2022 STRIP,BONE CANC [id number] FDA Start: 10-11-2022 SUTURE,LIGA CLIP MED LT200 FDA Start: 10-11-2022 SUTURE,LIGA CLIP MED LT200 FDA Start: 10-11-2022 SUTURE,LIGA CLIP SM LT-100 FDA Start: 10-11-2022 VARIABLE SCREWS FDA Start: 10-11-2022 VARIABLE SCREWS FDA Start: 10-11-2022 VARIABLE SCREWS FDA Start: 10-11-2022 VARIABLE SCREWS FDA Start: 10-11-2022 AXLE CONSTRUCT FDA Start: 10-11-2022 CLIP,LIGA LG FDA Start: 10-11-2022 DRESSING,SURGICE L 4x8 FDA Start: 10-11-2022 F3D ALIF FDA Start: 10-11-2022 INFLUX SPARC [phone] FDA Start: 10-11-2022 PATCH,AMNION 2X3CM FDA Start: 10-11-2022 PATCH,AMNION 2X3CM FDA Start: 10-11-2022 SPACER,10MM INTERLAM FDA Star t: 10-11-2022 23MM PLATE FDA Start: 03-21-2023 STRIP,BONE CANC [id number] FDA Start: 10-11-2022 STRIP,BONE CANC [id number] FDA Start: 10-11-2022 STRIP,BONE CANC [id number] FDA Start: 10-11-2022 SUTURE,LIGA CLIP MED LT200 FDA Start: 10-11-2022 SUTURE,LIGA CLIP MED LT200 FDA Start: 10-11-2022 SUTURE,LIGA CLIP SM LT-100 FDA Start: 10-11-2022 VARIABLE SCREWS FDA Start: 10-11-2022 VARIABLE SCREWS FDA Start: 10-11-2022 VARIABLE SCREWS FDA Start: 10-11-2022 VARIABLE SCREWS FDA Start: 10-11-2022 AXLE CONSTRUCT FDA Start: 10-11-2022 CLIP,LIGA LG FDA Start: 10-11-2022 DRESSING,SURGICE L 4x8 FDA Start: 10-11-2022 F3D ALIF FDA Start: 10-11-2022 INFLUX SPARC [phone] FDA Start: 10-11-2022 PATCH,AMNION 2X3CM FDA Start: 10-11-2022 PATCH,AMNION 2X3CM FDA Start: 10-11-2022 SPACER,10MM INTERLAM FDA Star t: 10-11-2022 23MM PLATE FDA Start: 10-11-2022 STRIP,BONE CANC [id number] FDA Start: 10-11-2022 STRIP,BONE CANC [id number] FDA Start: 10-11-2022 STRIP,BONE CANC [id number] FDA Start: 10-11-2022 SUTURE,LIGA CLIP MED LT200 FDA Start: 10-11-2022 SUTURE,LIGA CLIP MED LT200 FDA Start: 10-11-2022 SUTURE,LIGA CLIP SM LT-100 FDA Start: 10-11-2022 VARIABLE SCREWS FDA Start: 10-11-2022 VARIABLE SCREWS FDA Start: 10-11-2022 VARIABLE SCREWS FDA Start: 10-11-2022 VARIABLE SCREWS FDA Start: 10-11-2022 AXLE CONSTRUCT FDA Start: 10-11-2022 CLIP,LIGA LG FDA Start: 10-11-2022 DRESSING,SURGICE L 4x8 FDA Start: 10-11-2022 F3D ALIF FDA Start: 10-11-2022 INFLUX SPARC [phone] FDA Start: 10-11-2022 PATCH,AMNION 2X3CM FDA Start: 10-11-2022 PATCH,AMNION 2X3CM FDA Start: 10-11-2022 SPACER,10MM INTERLAM FDA Star t: 10-11-2022 23MM PLATE FDA Start: 10-11-2022 STRIP,BONE CANC [id number] FDA Start: 10-11-2022 STRIP,BONE CANC [id number] FDA Start: 10-11-2022 STRIP,BONE CANC [id number] FDA Start: 10-11-2022 SUTURE,LIGA CLIP MED LT200 FDA Start: 10-11-2022 SUTURE,LIGA CLIP MED LT200 FDA Start: 10-11-2022 SUTURE,LIGA CLIP SM LT-100 FDA Start: 10-11-2022 VARIABLE SCREWS FDA Start: 10-11-2022 VARIABLE SCREWS FDA Start: 10-11-2022 VARIABLE SCREWS FDA Start: 10-11-2022 VARIABLE SCREWS FDA Start: 10-11-2022 AXLE CONSTRUCT FDA Start: 10-11-2022 CLIP,LIGA LG FDA Start: 10-11-2022 DRESSING,SURGICE L 4x8 FDA Start: 10-11-2022 F3D ALIF FDA Start: 10-11-2022 INFLUX SPARC [phone] FDA Start: 10-11-2022 PATCH,AMNION 2X3CM FDA Start: 10-11-2022 PATCH,AMNION 2X3CM FDA Start: 10-11-2022 SPACER,10MM INTERLAM FDA Star t: 10-11-2022 23MM PLATE FDA Start: 10-11-2022 STRIP,BONE CANC [id number] FDA Start: 10-11-2022 STRIP,BONE CANC [id number] FDA Start: 10-11-2022 STRIP,BONE CANC [id number] FDA Start: 10-11-2022 SUTURE,LIGA CLIP MED LT200 FDA Start: 10-11-2022 SUTURE,LIGA CLIP MED LT200 FDA Start: 10-11-2022 SUTURE,LIGA CLIP SM LT-100 FDA Start: 10-11-2022 VARIABLE SCREWS FDA Start: 10-11-2022 VARIABLE SCREWS FDA Start: 10-11-2022 VARIABLE SCREWS FDA Start: 10-11-2022 VARIABLE SCREWS FDA Start: 10-11-2022 AXLE CONSTRUCT FDA Start: 10-11-2022 CLIP,LIGA LG FDA Start: 10-11-2022 DRESSING,SURGICE L 4x8 FDA Start: 10-11-2022 F3D ALIF FDA Start: 10-11-2022 INFLUX SPARC [phone] FDA Start: 10-11-2022 PATCH,AMNION 2X3CM FDA Start: 10-11-2022 PATCH,AMNION 2X3CM FDA Start: 10-11-2022 SPACER,10MM INTERLAM FDA Star t: 10-11-2022 23MM PLATE FDA Start: 10-11-2022 STRIP,BONE CANC [id number] FDA Start: 10-11-2022 STRIP,BONE CANC [id number] FDA Start: 10-11-2022 STRIP,BONE CANC [id number] FDA Start: 10-11-2022 SUTURE,LIGA CLIP MED LT200 FDA Start: 10-11-2022 SUTURE,LIGA CLIP MED LT200 FDA Start: 10-11-2022 SUTURE,LIGA CLIP SM LT-100 FDA Start: 10-11-2022 VARIABLE SCREWS FDA Start: 10-11-2022 VARIABLE SCREWS FDA Start: 10-11-2022 VARIABLE SCREWS FDA Start: 10-11-2022 VARIABLE SCREWS FDA Start: 10-11-2022 AXLE CONSTRUCT FDA Start: 10-11-2022 CLIP,LIGA LG FDA Start: 10-11-2022 DRESSING,SURGICE L 4x8 FDA Start: 10-11-2022 F3D ALIF FDA Start: 10-11-2022 INFLUX SPARC [phone] FDA Start: 10-11-2022 PATCH,AMNION 2X3CM FDA Start: 10-11-2022 PATCH,AMNION 2X3CM FDA Start: 10-11-2022 SPACER,10MM INTERLAM FDA Star t: 10-11-2022 23MM PLATE FDA Start: 10-11-2022 STRIP,BONE CANC [id number] FDA Start: 10-11-2022 STRIP,BONE CANC [id number] FDA Start: 10-11-2022 STRIP,BONE CANC [id number] FDA Start: 10-11-2022 SUTURE,LIGA CLIP MED LT200 FDA Start: 10-11-2022 SUTURE,LIGA CLIP MED LT200 FDA Start: 10-11-2022 SUTURE,LIGA CLIP SM LT-100 FDA Start: 10-11-2022 VARIABLE SCREWS FDA Start: 10-11-2022 VARIABLE SCREWS FDA Start: 10-11-2022 VARIABLE SCREWS FDA Start: 10-11-2022 VARIABLE SCREWS FDA Start: 10-11-2022 AXLE CONSTRUCT FDA Start: 10-11-2022 CLIP,LIGA LG FDA Start: 10-11-2022 DRESSING,SURGICE L 4x8 FDA Start: 10-11-2022 F3D ALIF FDA Start: 10-11-2022 INFLUX SPARC [phone] FDA Start: 10-11-2022 PATCH,AMNION 2X3CM FDA Start: 10-11-2022 PATCH,AMNION 2X3CM FDA Start: 10-11-2022 SPACER,10MM INTERLAM FDA Star t: 10-11-2022 23MM PLATE FDA Start: 10-11-2022 STRIP,BONE CANC [id number] FDA Start: 10-11-2022 STRIP,BONE CANC [id number] FDA Start: 10-11-2022 STRIP,BONE CANC [id number] FDA Start: 10-11-2022 SUTURE,LIGA CLIP MED LT200 FDA Start: 10-11-2022 SUTURE,LIGA CLIP MED LT200 FDA Start: 10-11-2022 SUTURE,LIGA CLIP SM LT-100 FDA Start: 10-11-2022 VARIABLE SCREWS FDA Start: 10-11-2022 VARIABLE SCREWS FDA Start: 10-11-2022 VARIABLE SCREWS FDA Start: 10-11-2022 VARIABLE SCREWS FDA Start: 10-11-2022 AXLE CONSTRUCT FDA Start: 10-11-2022 CLIP,LIGA LG FDA Start: 10-11-2022 DRESSING,SURGICE L 4x8 FDA Start: 10-11-2022 F3D ALIF FDA Start: 10-11-2022 INFLUX SPARC [phone] FDA Start: 10-11-2022 PATCH,AMNION 2X3CM FDA Start: 10-11-2022 PATCH,AMNION 2X3CM FDA Start: 10-11-2022 SPACER,10MM INTERLAM FDA Star t: 10-11-2022 23MM PLATE FDA Start: 10-11-2022 STRIP,BONE CANC [id number] FDA Start: 10-11-2022 STRIP,BONE CANC [id number] FDA Start: 10-11-2022 STRIP,BONE CANC [id number] FDA Start: 10-11-2022 SUTURE,LIGA CLIP MED LT200 FDA Start: 10-11-2022 SUTURE,LIGA CLIP MED LT200 FDA Start: 10-11-2022 SUTURE,LIGA CLIP SM LT-100 FDA Start: 10-11-2022 VARIABLE SCREWS FDA Start: 10-11-2022 VARIABLE SCREWS FDA Start: 10-11-2022 VARIABLE SCREWS FDA Start: 10-11-2022 VARIABLE SCREWS FDA Start: 10-11-2022 AXLE CONSTRUCT FDA Start: 10-11-2022 CLIP,LIGA LG FDA Start: 10-11-2022 DRESSING,SURGICE L 4x8 FDA Start: 10-11-2022 F3D ALIF FDA Start: 10-11-2022 INFLUX SPARC [phone] FDA Start: 10-11-2022 PATCH,AMNION 2X3CM FDA Start: 10-11-2022 PATCH,AMNION 2X3CM FDA Start: 10-11-2022 SPACER,10MM INTERLAM FDA Star t: 10-11-2022 23MM PLATE FDA Start: 10-11-2022 STRIP,BONE CANC [id number] FDA Start: 10-11-2022 STRIP,BONE CANC [id number] FDA Start: 10-11-2022 STRIP,BONE CANC [id number] FDA Start: 10-11-2022 SUTURE,LIGA CLIP MED LT200 FDA Start: 10-11-2022 SUTURE,LIGA CLIP MED LT200 FDA Start: 10-11-2022 SUTURE,LIGA CLIP SM LT-100 FDA Start: 10-11-2022 VARIABLE SCREWS FDA Start: 10-11-2022 VARIABLE SCREWS FDA Start: 10-11-2022 VARIABLE SCREWS FDA Start: 10-11-2022 VARIABLE SCREWS FDA Start: 10-11-2022 AXLE CONSTRUCT FDA Start: 10-11-2022 CLIP,LIGA LG FDA Start: 10-11-2022 DRESSING,SURGICE L 4x8 FDA Start: 10-11-2022 F3D ALIF FDA Start: 10-11-2022 INFLUX SPARC [phone] FDA Start: 10-11-2022 PATCH,AMNION 2X3CM FDA Start: 10-11-2022 PATCH,AMNION 2X3CM FDA Start: 10-11-2022 SPACER,10MM INTERLAM FDA Star t: 10-11-2022 23MM PLATE FDA Start: 10-11-2022 STRIP,BONE CANC [id number] FDA Start: 10-11-2022 STRIP,BONE CANC [id number] FDA Start: 10-11-2022 STRIP,BONE CANC [id number] FDA Start: 10-11-2022 SUTURE,LIGA CLIP MED LT200 FDA Start: 10-11-2022 SUTURE,LIGA CLIP MED LT200 FDA Start: 10-11-2022 SUTURE,LIGA CLIP SM LT-100 FDA Start: 10-11-2022 VARIABLE SCREWS FDA Start: 10-11-2022 VARIABLE SCREWS FDA Start: 10-11-2022 VARIABLE SCREWS FDA Start: 10-11-2022 VARIABLE SCREWS FDA Start: 10-11-2022 AXLE CONSTRUCT FDA Start: 10-11-2022 CLIP,LIGA LG FDA Start: 10-11-2022 DRESSING,SURGICE L 4x8 FDA Start: 10-11-2022 F3D ALIF FDA Start: 10-11-2022 INFLUX SPARC [phone] FDA Start: 10-11-2022 PATCH,AMNION 2X3CM FDA Start: 10-11-2022 PATCH,AMNION 2X3CM FDA Start: 10-11-2022 SPACER,10MM INTERLAM FDA Star t: 10-11-2022 23MM PLATE FDA Start: 10-11-2022 STRIP,BONE CANC [id number] FDA Start: 10-11-2022 STRIP,BONE CANC [id number] FDA Start: 10-11-2022 STRIP,BONE CANC [id number] FDA Start: 10-11-2022 SUTURE,LIGA CLIP MED LT200 FDA Start: 10-11-2022 SUTURE,LIGA CLIP MED LT200 FDA Start: 10-11-2022 SUTURE,LIGA CLIP SM LT-100 FDA Start: 10-11-2022 VARIABLE SCREWS FDA Start: 10-11-2022 VARIABLE SCREWS FDA Start: 10-11-2022 VARIABLE SCREWS FDA Start: 10-11-2022 VARIABLE SCREWS FDA Start: 10-11-2022 AXLE CONSTRUCT FDA Start: 10-11-2022 CLIP,LIGA LG FDA Start: 10-11-2022 DRESSING,SURGICE L 4x8 FDA Start: 10-11-2022 F3D ALIF FDA Start: 10-11-2022 INFLUX SPARC [phone] FDA Start: 10-11-2022 PATCH,AMNION 2X3CM FDA Start: 10-11-2022 PATCH,AMNION 2X3CM FDA Start: 10-11-2022 SPACER,10MM INTERLAM FDA Star t: 10-11-2022 23MM PLATE FDA Start: 10-11-2022 STRIP,BONE CANC [id number] FDA Start: 10-11-2022 STRIP,BONE CANC [id number] FDA Start: 10-11-2022 STRIP,BONE CANC [id number] FDA Start: 10-11-2022 SUTURE,LIGA CLIP MED LT200 FDA Start: 10-11-2022 SUTURE,LIGA CLIP MED LT200 FDA Start: 10-11-2022 SUTURE,LIGA CLIP SM LT-100 FDA Start: 10-11-2022 VARIABLE SCREWS FDA Start: 10-11-2022 VARIABLE SCREWS FDA Start: 10-11-2022 VARIABLE SCREWS FDA Start: 10-11-2022 VARIABLE SCREWS FDA Start: 10-11-2022 AXLE CONSTRUCT FDA Start: 10-11-2022 CLIP,LIGA LG FDA Start: 10-11-2022 DRESSING,SURGICE L 4x8 FDA Start: 10-11-2022 F3D ALIF FDA Start: 10-11-2022 INFLUX SPARC [phone] FDA Start: 10-11-2022 PATCH,AMNION 2X3CM FDA Start: 10-11-2022 PATCH,AMNION 2X3CM FDA Start: 10-11-2022 SPACER,10MM INTERLAM FDA Star t: 10-11-2022 Goals Date Patient Goal Desired Activity /State Functional Status Date Assessment Result Facility 09-26-2023 Functional status Ambulates;Up ad gina [facility] Work Phone: 09-25-2023 Functional status None Kassi [facility] Work Phone: 10-15-2022 Functional status Ambulates;Up ad gina [facility] Work Phone: 10-15-2022 Functional status Assistive Shandra fredy Rolling Walker [facility] Work Phone: Mental Status Date Assessment Result Facility 10-07-2024 Cognitive function Voice/Name [facility] Work Phone: 11-14-2023 Cognitive function Touch/Shaking [facility] Work Phone: 09-26-2023 Cognitive function Voice/Name [facility] Work Phone: 06-21-2023 Cognitive function Voice/Name [facility] Work Phone: 10-14-2022 Cognitive function Voice/Name [facility] Work Phone: Clinical Notes 06-13-2016 to 10-28-2024 Note Date & Type Note Facility 10-28-2024 Evaluation note Diagnosis Onset Date Resolution Crohn's disease acute October 8:50am [facility] Work Phone: [phone]) 151-977903-17-2025 Consult note [facility] Medical Records Department [address] [place] [address] Anesthesia Postop Eval II 10/07/24 1226 MR#: [id number] Acct: [id number] Name: JUDY REAGAN ANN Rep #:[id number] : 1960 64 From: Yeimy Duggan PCP: Dr. Hernandez Mosley MD Status:REG S DC Y Race: C Location: [place] [address] Anesthesia Postop Eval I Sum Postop Eval Completion status Anesthesia document: Postop Eval 1 completed: Yes Anesthesia Postop Eval I Summary Anesthesia Postop Eval I Summary: Anesthesia Postop Eval I: Assessment Summary Airway patent Yes 10/07/24 12:09 APPRENTICESHIP CONSULTANT.LMIL Spontaneous unlabored Yes 10/07/24 12:09 APPRENTICESHIP CONSULTANT.LMIL respirations Mental status Awake 10/07/24 12:09 APPRENTICESHIP CONSULTANT.LMIL nausea No 10/07/24 12:09 APPRENTICESHIP CONSULTANT.LMIL Vomiting No 10/07/24 12:09 APPRENTICESHIP CONSULTANT.LMIL Anesthesia Postop Eval I: Fluid Summary Crystalloid volume administer 10 10/07/24 12:09 APPRENTICESHIP CONSULTANT.LMIL (ml) Colloids volume administered ( ml) Blood Product volume administered (ml) Total IV fluid infused 10 10/07/24 12:09 APPRENTICESHIP CONSULTANT.LMIL Anesthesia Postop Eval I: Summary Notes Anesthesia Complication No 10/07/24 12:09 APPRENTICESHIP CONSULTANT.LMIL Anesthesia Complication Comment: Post-operative progress note Anesthesia: Postop Eval II Evaluation Mental status: Awake Pain Level: 3 nausea: No Vomiting: No 10/07/24 1226 a> Date _ Yeimybrenard Lylesparadisehadley Signature: Date CC: ~ Signed [facility]03-17-2025 Consult note [facility] Medical Records Department [address] [place] [address] Anesthesia Postop Eval I 10/07/24 1208 MR#: [id number] Acct: [id number] Name: JUDY REAGAN ANN Rep #:[id number] : 1960 64 From: Montse Nicole CRNA PCP: Dr. Hernandez Mosley MD Status:REG S DC Y Race: C Location: [place] [address] Anesthesia: Postop Eval I Current Vital Signs Temperature: 98.4 F Pulse Rate: 98 Blood Pressure: 142/90 Respiratory Rate: 18 Pulse Ox: 100 Oxygen Delivery Method: Room Air Assessment Airway patent: Yes Spontaneous unlabored respirations: Yes Mental status: Awake nausea: No Vomiting: No Anesthesia Complication: No Fluid Hydration Crystalloid volume administer (ml): 10 Total IV fluid infused: 10 Progress Note Anesthesia document: Postop Eval 1 completed: Yes 10/07/24 1209 c APPRENTICESHIP CONSULTANT> Date _ Montse Nicole CRNA Cosigner Signature: Date CC: ~ Signed [facility]03-17-2025 Procedure note [facility] Medical Records Department [address] [place] [address] Operative Report 10/07/24 1200 MR#: [id number] Acct: [id number] Name: JUDY REAGAN Rep #:[id number] : 1960 64 From: Montana Quiñonez MD PCP: Dr. Hernandez Mosley MD Status:REG S DC Location: [place] [address] Operative Report (Standard) Operative Information Date of Procedure: 10/07/24 Pre-Operative Diagnosis: Lumbosacral radiculopathy, lumbosacral degenerative disc disease, lumbosacral spinal stenosis, postlaminectomy syndrome of the lumbar spine Post-Operative Diagnosis: Lumbosacral radiculopathy, lumbosacral degenerative disc disease, lumbosacral spinal stenosis, postlaminectomy syndrome of the lumbar spine Surgery/Procedure Performed: Diagnostic/therapeutic caudal epidural steroid injection under fluoroscopic guidance. pipe bowls paint trimmer: No Type of Anesthesia: Local MAC RN Documented Start/Stop Times: Operation Date: 10/07/24 12:40 Case Time Into Pre-Op 10/07/24 11:11 Out of Pre-Op 10/07/24 11:43 Anesthesia Start 10/07/24 11:50 Into Room 10/07/24 11:50 Procedure Start 10/07/24 11:56 Procedure End 10/07/24 11:59 Procedure Start Time: 12:01 Procedure Stop Time: 12:01 Select all DRAINS/GRAFTS/IMPLANTS that apply: None Estimated Blood Loss: 1 Specimen collected: No Description of surgery: PROCEDURE PERFORMED: Diagnostic/therapeutic caudal epidural steroid injection under fluoroscopic guidance ANESTHESIA: MAC. BLOOD LOSS: Minimal. COMPLICATIONS: None. DESCRIPTION OF PROCEDURE: History and physical of today was reviewed. Risks and benefits of the procedure were explained. The patient understood and agreedto proceed. Informed consent was obtained. IV inserted per routine protocol. The patient was taken to the operating room and placed in the proneposition with a pillow positioned underneath the abdomen. The lower back and tailbone area was prepped and draped in a sterile fashion using iodine x3. Under fluoroscopy guidance on a lateral view, the caudal space was identified. The skin and subcutaneous tissue was anesthetized with approximately3 mL of 1% lidocaine using a 25-gauge regular needle. Under direct visualization with fluoroscopy, u sing a 22-gauge 3-1/2-inch spinal needle, the needle was advanced via the skin through the sacral hiatus. The tip of the needle was passed through the sacrococcygeal ligament and advanced to approximately S4 area. After negative aspiration of blood or CSF, a total of 3 mL of contrast was injected to confirm correct placement of the needle as well as cephalad spread. The spread was followed to approximately L5 area. After confirmation on AP as well as lateral view and repeated negative aspiration, a total of 15 mL of preservative-free 0.125% Marcaine with 80 mg of Depo-Medrol was injected easily. The needle was then removed intact. The patient experienced no sign or symptoms of intrathecal or intravascular injection. The patient experienced no paresthesia. The procedure was completed without any apparent difficulty or anycomplications. The patient appeared to tolerate it well. ASSESSMENT AND PLAN: This is a 64-year-old female with Lumbosacral radiculopathy, lumbosacral degenerative disc disease,lumbosacral spinal stenosis, postlaminectomy syndromeof the lumbar spine, status post diagnostic/therapeutic caudal epidural steroid injection under fluoroscopic guidance, patient will continue her current medications, patient will follow-up in approximately 1 to 2 weeks for reevaluation. Surgical Findings: 0 Complications Complications: No Admit VTE Documentation VTE Present on Admission: No VTE Mechan Device Prophylaxis: None VTE Pharm Prophylaxis ordered?: No 10/07/24 1202 Cosigner Signature (if applicable): CC: Dr. Montnaa Quiñonez MD; Dr. Hernandez Mosley MD~ Signed [facility]03-17-2025 Consult note [facility] Medical Records Department [address] [place] [address] Pre-Anesthesia Evaluation 10/07/24 1141 MR#: [id number] Acct: [id number] Name: JUDY REAGAN Rep #:[id number] : 1960 64 From: Amandeep Madrigal MD PCP: Dr. Hernandez Mosley MD Status:REG S DC Y Race: C Location: [place] [address]-1 ASA Classification* ASA Classification ASA Classification: 2 Assessment & Plan Anesthesia* Anesthesia Assessment Anesthesia Assessment: Discussed sedation and/or anesthesia options, risks, benefits, and alternatives with patient/parents/legal guardian/POA. Questions invited. The patient/parents/legal guardian/POA seems to understand and agrees to proceedwith anesthesia plan. Reviewed the physical assessment, medical history, allergy history and patient home medications list prior to surgery/procedure/anesthetic and documented any changes. Performed airway and anesthesia risk assessments. Anesthesia Type Anesthesia Type: MAC History Source History Obtained from:: Patient and Chart Anesthesia Focused Assessment* Temperature: 96.9 F Pulse Rate: 92 Blood Pressure: 174/106 Respiratory Rate: 16 Oxygen Delivery Method: Room Air Airway Assessment Mouth opens: >3 cm Mallampati Score: I Teeth Condition: Caps/Crowns (Patient has couple of caps. They are tight.) Neck Range of motion (ROM): Limited ROM (Slight decrease in extension) Focused Labs Anesthesia Preop lab: CBC WBC 9.5 K/mm3 (4.4-11.0) 05/03/24 11:39 05/03/24 RBC 4.65 M/mm3 (4.2-5.4) 05/03/24 11:39 05/03/24 Hgb 13.9 g/dL (12.0-15.0) 05/03/24 11:39 05/03/24 Hct 43.2 % (37-47) 05/03/24 11:39 05/03/24 Plt Count 395 K/mm3 (150-450) 05/03/24 11:39 05/03/24 CHEMISTRY Potassium 3.7 mmol/L (3.5-5.1) 05/03/24 11:39 05/03/24 Sodium 135 mmol/L (136-145) L 05/03/24 11:39 05/03/24 Magnesium 2.3 mg/dL (1.6-2.6) 09/24/23 05:20 09/24/23 Phosphorus 3.3 mg/dL (2.5-4.9) 09/24/23 05:20 09/24/23 BUN 15 mg/dL (7-18) 05/03/24 11:39 05/03/24 Creatinine 0.70 mg/dL (0.55-1.02) 05/03/24 11:39 05/03/24 Glucose 99 mg/dL (74-106) 05/03/24 11:39 05/03/24 POC Glucose 119 mg/dL (74-106) H 06/21/23 09:50 06/21/23 TSH 1.440 uIU/mL (0.358-3.740) 03/19/24 10:58 0802/13 COAG PT 12.6 SECONDS (11.7-14.9) 06/19/23 12:39 Pre-Assessment Diagnosis/Proposed Procedure Planned Operative Procedure(s): caudal steroid inj Anesthesia History Anesthesia History - core measures abstractor: Anesthesia History - core measures abstractor Hx Hospitalization No 10/04/24 14:57 Any Problems With Anesthesia No 10/04/24 14:57 Cholinesterase deficiency No 10/04/24 14:57 You/Your Family Experience No 10/04/24 14:57 fever (hyperthermia) with Relationship Recent Exposure to Contagious No 10/07/24 11:21 Disease Does patient have nerve No 10/04/24 14:57 stimulator Patient instructed to have device shut off --Does patient have Pacemaker No 10/07/24 11:21 or ICD? When Was Last Pacemaker Check QUESTION #4 FULL TEXT: You/Your Family Experience fever (hyperthermia) with Anesthesia Last Oral Intake Last Oral intake: Last Oral Intake NPO since 20:00 10/07/24 11:21 Meds taken in AM with sips of water? Meds patient instructed to take am of surgery PONV PONV - core measures abstractor: PONV - core measures abstractor Female Yes 10/04/24 14:57 HX of Motion Sickness No 10/04/24 14:57 HX of N/V After Surgery No 10/04/24 14:57 Non-Smoker Yes 10/04/24 14:57 Duration of Surgery greater No 10/04/24 14:57 than 60 minutes Number of Risk Factors 2 10/04/24 14:57 PONV Score Moderate Risk 10/04/24 14:57 Height & Weight Height & Weight: Anesthesia: Height & Weight Height 5 ft 4 in 10/07/24 11:21 Weight: 75 kg 10/07/24 11:21 Body Mass Index (BMI) 28.3 10/07/24 11:21 Respiratory Assessment Respiratory Assessment - core measures abstractor: Respiratory Tract Infection Hx - core measures abstractor Hx Respiratory Tract Infection No 10/04/24 14:57 STOP Sleep Apnea STOP Sleep Apnea - core measures abstractor: STOP Sleep Apnea - core measures abstractor Hx Hypertension Yes: CONTROLLED WITH MED 10/04/24 14:57 Hx Sleep Apnea No 10/04/24 14:57 CPAP Yes 11/24/23 14:04 BIPAP Do you snore loudly (louder No 10/04/24 14:57 than talking or can be heard Do you often feel tired/ No 10/04/24 14:57 fatigued/ sleepy during daytime? Has anyone observed you stop No 10/04/24 14:57 breathing during sleep? STOP Results Negative 10/04/24 14:57 QUESTION #5 FULL TEXT : Do you snore loudly (louder than talking or can be heard through closeddoors)? 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 Specify any problems Hx of Preganancy in last 3 N/A 10/04/24 14:57 Months Nurse Filling Out Transfusion [facility] 10/04/24 14:57 & Questions: Date: 10/04/24 10/04/24 14:57 Time: 14:58 10/04/24 14:57 Patient unable to answer at this time (ie. confused, unrespo /Reproduction History /Reproductive History - core measures abstractor: /Reproductive Hx- core measures abstractor Hx Now No 10/04/24 14:57 Gestational Age (in weeks): EDC: Hx Hx Para Hx Section SAB No 11/24/23 14:04 PFSH Medical History History of Crohn's disease Chronic pain GERD (gastroesophageal reflux disease) History of steroid therapy Wears glasses Post-menopausal Anxiety Alcohol use Hx of psoriatic arthritis Restless legs Back pain History of diverticulitis Hx of peptic ulcer Former smoker History of pain when walking Hypertension Physical exam, pre-employment Osteoarthritis Home Medications ?Medication ?Instructions ?Recorded ?Last Taken ?Type venlafaxine 37.5 mg tablet 75 mg PO QHS depression 10/06/24 History pantoprazole 40 mg tablet,delayed 40 mg PO DAILY GERD 08/09/22 10/07/24 History release ramipril 10 mg capsule 10 mg PO BID HEART 08/09/22 10/06/24 History ropinirole 0.25 mg tablet 0.5 mg PO QHS RESTLESS LEGS 08/09/22 10/06/24 History furosemide 20 mg tablet 20 mg PO DAILY 01/12/2309/21 History acetaminophen 500 mg tablet 1,000 mg (2 x 500 mg) PO Q 6H PRN 06/21/23 11/13/23 Rx #100 tabs acidophilus 25 million 2 tab PO BID #0 tabs 2 4 10/06/24 Rx cell-pectin, citrus 100 mg tablet tramadol 50 mg tablet 50 - 100 mg (1 - 2 x 50 mg) PO Q8H 09/26/23 10/06/24 Rx PRN pain #10 tabs amlodipine 5 mg tablet (Norvasc) 5 mg PO QHS 11/09/23 10/07/24 History ustekinumab 90 mg/mL subcutaneous 90 mg subcut Q8W #1 mL 03/11/24 Unknown Rx syringe (Stelara) duloxetine 30 mg capsule,delayed 30 mg PO DAILY #30 ca ps 06/25/24 10/06/24 Rx release hyoscyamine sulfate 0.125 mg tablet 0.125 mg PO BID-QI D PRN dyspepsia 08/13/24 Unknown Rx #30 tabs dicyclomine 20 mg tablet 20 mg PO TID PRN abdominal p ain 10/04/24 Unknown History Allergy/AdvReac Type Severity Reaction Status Date / Time adhesive tape Allergy Severe blistering Verified 10/07/24 11:20 bee venom protein (honey bee) Allergy Swelling Verified 10/07/24 11:20 Family History Other Breast cancer CAD (coronary artery disease) Heart disease Hypertension Surgical History Hx of colonoscopy History of lumbar spinal fusion Status post left partial knee replacement History of total right knee replacement History of appendectomy History of hysterectomy History of section Social History household members: spouse Smoking Status: Former smoker alcohol intake: current alcohol intake frequency: holidays/special occasions only substance use type: does not use what type of physical activity do you participate in: walking frequency: 1-2 times per week Review of Systems (Anesthesia) ROS Narrative System reviewed and no additional complaints, except as documented. 10/07/24 1148 abelardo ROSADO> Date _ Amandeep Madrigal MD Cosigner Signature: Date CC: ~ Signed [facility]04-23-2024 History and physical note Author Stanley Friend [facility] November 14, 2023 11:56am Note Date/Time November 14, 2023 11: 56am [facility] Medical Records Department [address] [place] [address] History & Physical Exam 11/14/23 1154 MR#: [id number] Acct: [id number] Name: JUDY REAGAN Rep #:[id number] : 1960 63 From: [facility] Friend DO PCP: Dr. Hernandez Mosley MD Status:REG S DC Location: [place] [address] History and Physical Date of Admission: 11/14/23 JUDY REAGAN, is a 63 F who presents to the office today for follow up. [facility] hospitalization 03.20.16-03.23.16 for abdominal pain. EGD 03.20.16?scope could not be advanced through duodenal bulb due to concentric narrowing less likely mass; no obvious ulcerations; duodenitis with duodenal ulcers; gastritis; healing prepyloric ulcer. H.Pylori neg Prior workup: ?CT abd/pel 09.21.23?colonic diverticulosis with diverticulitis *[facility] hospitalization 09.24.23-09.26.23 for management of abdominal pain with recent diverticulitis diagnosis with failed outpatient ATB therapy. Chronic conditions HTN, tobacco use, psoriatic arthritis, pseudogout, partial left knee replacement.? Treated with IV Rocephin and flagyl. ?CT abd/pel 09.24.23?diverticulosis with sequela of previous diverticulitis of sigmoid colon ?EGD/colonoscopy 09.25.23?EGD severe duodenal stenosis, balloon dilator 12mm, post dilation visualization noted moderate mucosal disruption. ? Colonoscopy diverticulosis; splenic flexure inflammation with friability and granularity OV 4.08.16 Pt states she has been feeling well since hosp. visit. Has not had anyabdominal pain. Continues Mesalamine. BM have been better. Has not had any diarrhea. Is going to start taking daily fiber supplement. Does have lower abdominal cramping that is relieved by BM. ? ? ROS Const Constitutional: Positive for fatigue ENT ENT: No difficulty swallowing Cardio Cardiology: Positive for leg pain with exertion Gastro GI: Positive for bloating and excessive flatus; No abdominal pain, belching, change in bowel habits, change in stool character, coffee ground emesis, constipation, cramping, diarrhea, heartburn, difficulty swallowing, feeling full early, incontinent of stools, Vomiting blood/hematemesis, Blood in stool, loose stools, Black,tarry stools, nausea/dyspepsia, pain with swallowing, vomiting or other Musc Musculoskeletal: Positive for joint pain, back pain, joint swelling, stiffness, Arthritis, restless legs, leg pain at night and leg pain with exertion Skin Skin: No yellowing of the eye or itchy eyes Neuro Neurology: Positive for restless legs Psych Psychiatric: Positive for anxiety and No depression Endo Endocrine: Positive for fatigue Aller/Imm Allergy/Immunologic: No itchy eyes Renato/Lymp Hematologic/Lymphatic: No easy bleeding or easy bruising Exam Const General: cooperative and comfortable Nutritional Appearance: average body habitus and well nourished HENMT Head: normal to inspection Ears: hearing grossly normal bilaterally Nose: external nose normal Face and sinus: normal facial exam Mouth: oral mucosae normal Throat: posterior oropharynx normal Eyes General: appearance normal, both eyes and all related structures Neck Neck: normal visual inspection Chest Chest palpation & inspection: normal inspection of the chest and normal palpation of entire chest wall Resp Effort & Inspection: normal respiratory effort Auscultation: Bilateral: Clear to Auscultation Cardio Palpation: normal PMI Rate: regular rate Rhythm: regular rhythm GI Inspection: normal to inspection Auscultation: normal bowel sounds Percussion: normal to percussion Palpation: no hepatosplenomegaly Skin General: no rashes or lesions noted Neuro General: patient alert Extrem General: normal to inspection Psych Affect: normal affect Quality Reporting Tobacco Screening ([facility] 138) Smoking Status: Former smoker Assessment and Plan Assessment and Plan (1) Crohn's disease: Status: Acute Plan: 63-year-old female admitted for diffuse abdominal pain predominantly left lowerquadrant, hematochezia. Recently diagnosed with diverticulitis, fourth episode little over a year and started on oral Augmentin. Acute Diverticulitis that Failed Outpatient Antibiotic Treatment - Admit to general medical floor. Continue broad-spectrum antibiotics with IV Rocephin andIV Flagyl to cover Gram-negatives and anaerobes. Give Tylenol prn for [id number] (level 1-5/10) pain or fever. Give Morphine IV prn for severe (level 6-10/10) pain. Patient had colonoscopy a colonoscopy that showed diverticulosis with inflammation around the diverticuli possibly secondary to sigmoid colitis associated with diverticulosis. I have placed her on mesalamine based therapy for that diagnosis. She also had some inflammation in the terminal ileum and throughout the colon that was a nonspecific colitis. I chirag biochemical markersfor inflammatory bowel disease and she has a strongly positive ASCA antibody. Itold her in the setting of psoriatic arthritis and pseudogout it would not be a big stretch for her to have inflammatory bowel disease. Her CRP is elevated. She also had an upper endoscopy which had shown stricture in the duodenum and pyloric stenosis. She will undergo an EGD with dilation and Botox injection into the pylorus and duodenal stricture. She may also need Kenalog to her duodenal stricture provide I believe this possibly secondary to Crohn's disease. CT scan of the abdomen pelvis: Impressions : - Diverticulosis in the recto-sigmoid colon, in the sigmoid colon, in the descending colon and at the splenic flexure. - Localized severe inflammation was found in the sigmoid colon, in the descending colon and at the splenic flexure secondary to ischemic colitis. - No specimens collected. Recommendations : -She is going to see a kieselguhr regenerator operator regarding her psoriatic arthritis. -I will start her on methotrexate 12.5 mg p.o. daily with folic acid 1 mg a day and mesalamine 2.4 g a day for possible colonic Crohn's disease -She will undergo a capsule endoscopy to see if there is any signs of inflammatory bowel disease in the small bowel. -Pending the capsule endoscopy she may need a CT enterography or MR enterography. Orders: Orders Abdomen Single View Today K50.90 - Crohn's disease, unspecified, without complications I have examined the patient and the H&P has been reviewed. There are no clinicalchanges since date of exam. 11/14/23 1156 <Electronically signed by Stanley Godwin DO> Cosigner Signature (if applicable): CC: Dr. Hernandez Mosley MD; Stanleyelias Godwin DO~ Signed [facility] Work Phone: 1(489) 262-703904-23-2024 Procedure [facility] 11-14-2023 Procedure [facility]04-04-2024 Discharge summary Author Harry Mckeon [facility] October 26, 2023 2:17pm Note Date/Time October 26, 2023 2:17 pm [facility] Physical Therapy Health[address] [place] [address] / REHABILITATION SERVICES DISCHARGE SUMMARY MR#: [id number] Acct: [id number] Name: JUDY REAGAN Rep #: [id number] : 1960 63 From: Harry QUIGLEY T Referring Dr.: Dr. Shabbir Birch DO Status: REG RCR Insurance: [facility] Patient Information Patient Information: JUDY REAGAN was seen in my office for initial evaluation on 06/23/23. The following Plan of Care was established for this patient: POC Established Initial Frequency: 2x /Week Initial Duration: 8 weeks Anticipated Interventions Patient/Client Instruction: Educate patient on: Condition, Plan of Care, Risk Factors and Benefits of Fitness Program For the Purpose of:: To decrease pain Last Seen Last Seen: This patient was last seen in our office 08/17/23. Pertinent comments regardingtheir Physical therapy will appear below: Pt. was seen for her TKA and subsequent IT band pain. At her last visit patient was going to have an injection the following week. She has not been back to PT and will be DC from PT at this point in time. At this point I will be discontinuing this patient from physical therapy. I would be happy to see this patient again in the future if found appropriate by the physician. Thank you! Harry Mckeon DPT Balance/Gait/Functional tests Balance/Special Test Scores Lower Extremity Functional Score: 56 TUG Test Time Seconds: 7.82 Tug Test: <10 sec.=free mobile 6 Minute Walk Test: 1350' with no AD <Electronically signed by Harry Mckeon DPT> 10/26/23 1417 CC: Dr. Shabbir Birch DO; Dr. Hernandez Mosley MD ~ CLS Signed [facility] Work Phone: 1([phone]) 927-438803-05-2024 Discharge summary Author Sherif Benson [facility] September 26, 2023 8:43am Note Date/Time September 26, 2023 8:43 am [facility] Medical Records Department [address] [place] [address] Discharge Summary 09/26/23 0839 MR#: [id number] Acct: [id number] Name: JUDY REAGAN Rep #:[id number] : 1960 63 From: Sherif Pena PCP: Dr. Hernandez Mosley MD Status:ADM I N Location: [place] [address] Providers Date of Admission: 09/24/23 Date of Discharge: 09/26/23 Primary Care Physician: Dr. Hernandez Mosley MD Consultations 09/24/23 13:22 Consult: Gastroenterology Routine Consulting Provider: [facility] Reason for Consult: abdominal pain/Bleeding EMERGENT Consult: No MD Notified: Yes Date Notified: 09/24/23 Time Notified: 13:22 Method of Notification: Verbal Reason For Visit: ACUTE DIVERTICULITIS THAT FAILED OUTPATIENT ATB TX Diagnosis Discharge Diagnosis (1) Acute diverticulitis: Status: Acute Code(s): K57.92 - Diverticulitis of intestine, part unspecified, without perforation or abscess without bleeding Plan This is a 63-year-old female admitted for diffuse abdominal pain predominantly left lower quadrant, hematochezia. Recently diagnosed with diverticulitis, fourth episode little over a year and started on oral Augmentin. 1. Acute Diverticulitis that Failed Outpatient Antibiotic Treatment - Admit to general medical floor. Continue broad-spectrum antibiotics with IV Rocephin andIV Flagyl to cover Gram-negatives and anaerobes. Give Tylenol prn for ypjp-xq-bmgavoel (level 1-5/10) pain or fever. Give Morphine IV prn for severe (level 6-10/10) pain. 3/4: Patient had colonoscopy today. CRP elevated. Impressions : - Diverticulosis in the recto-sigmoid colon, in the sigmoid colon, in the descending colon and at the splenic flexure. - Localized severe inflammation was found in the sigmoid colon, in the descending colon and at the splenic flexure secondary to ischemic colitis. - No specimens collected. Recommendations : - Resume regular diet - No repeat colonoscopy. 3/5: Patient is tolerating soft diet well. Prescription for Cipro and Flagyl given to complete a total of 1 week of antibiotics. Advised catq-hfa-fpodvey probiotics for 2 weeks. Patient requested tramadol for severe abdominal pain which she is on, 50?100 mg every 8 hourly as needed total 10 tablets prescribed. Dicyclomine 10 mg capsule every 8 hourly as needed also prescribed for abdominal cramps. Follow-up with surgeon Dr. Fierro in 2 to 3 weeks time for recurrent episodes of diverticulitis. 2. Hypokalemia of 3.4 mmol/L present on admission complicating #1 - Give supplemental KCl and then recheck BMP in the AM to ensure improvement. 3/4: Serum potassium normal 4.0. Sodium 142. 3. Essential hypertension - Continue home regimen and give IV Hydralazine prn for systolic blood pressure > 160 mm Hg. 4. History of tobacco abuse - Tobacco Cessation will be strongly encouraged. 5. Psoriatic arthritis - Stable. 6. Pseudogout - Stable. 7. Depression - Continue Venlafaxine as preious plus give prn Xanax for breakthrough symptoms. 8. RLS - Resume Requip. 9. GERD; with history of PUD - Continue PPI IV. 10. DDD of the lumbar spine; s/p lumbar fusion (2022) - Stable. 11. OA; s/p partial Left knee replacement - Stable. Give Tylenol prn. 12. History of iliotibial band syndrome of the LLE followed by Dr. Birch of orthopedic surgery - Stable. 13. DVT prophylaxis - Lovenox 40 mg sq daily plus SCD's. Laboratory Results Laboratory Results 09/25/23 04:50: PTH Intact 79.8 09/26/23 06:05: WBC 4.2 L, RBC 4.43, Hgb 13.1, Hct 40.6, MCV 91.6, MCH 29.6, MCHC 32.3, RDW Std Deviation 42.8, RDW Coeff of Caity 12.8, Plt Count 296, MPV 9.6, Immature Gran % (Auto) 0.500, Neut % (Auto) 41.7 L, Lymph % (Auto) 37.1, [place] % (Auto) 15.7 H, Eos % (Auto) 4.3, Baso % (Auto) 0.7, Absolute Neuts (auto)1.7 L, Absolute Lymphs (auto) 1.54, Nucleated RBC % 0, Sodium 141, Potassium 3.3 L, Chloride 110 H, Carbon Dioxide 27.0, Anion Gap 4 L, BUN 10, Creatinine 0.70, Estim Creat Clear Calc 83.27, Est GFR (MDRD) Af Amer 110, Est GFR (MDRD) Non-Af 91, BUN/Creatinine Ratio 14.4, Glucose 104, Calcium 8.9 Medications at Discharge Home Medications venlafaxine 37.5 mg tablet 75 mg PO QHS depression 03/20/16 amlodipine 5 mg tablet 2.5 mg PO QHS BP 01/03/18 pantoprazole 40 mg tablet,delayed release 40 mg PO DAILY GERD 08/09/22 ramipril 10 mg capsule 10 mg PO BID HEART 08/09/22 ropinirole 0.25 mg tablet 0.5 mg PO QHS RESTLESS LEGS 08/09/22 furosemide 20 mg tablet 20 mg PO DAILY 01/12/23 acetaminophen 500 mg tablet 1,000 mg (2 x 500 mg) PO Q6H PRN #100 tabs 06/21/23 acidophilus 25 million cell-pectin, citrus 100 mg tablet 2 tab PO BID #0 tabs 09/26/23 ciprofloxacin HCl 500 mg tablet 500 mg PO BID 6 days #12 tabs 09/26/23 dicyclomine 10 mg capsule 10 mg PO TIDAC PRN ABDOMINAL CRAMPS 30 days #30 caps 09/26/23 metronidazole 500 mg tablet 500 mg PO Q8H 5 days #15 tabs 09/26/23 polyethylene glycol 3350 17 gram oral powder packet 17 g PO DAILY PRN CONSTIPATION #0 ea 09/26/23 tramadol 50 mg tablet 50 - 100 mg (1 - 2 x 50 mg) PO Q8H PRN pain #10 tabs 09/26/23 Physical Exam Narrative Seen and examined. Abdominal pain has much improved. She started on diet from yesterday. Has not moved bowel therefore started on MiraLAX 17 g daily and senna S2 tablet twice daily. Physical exam General: Alert, Oriented x3, Cooperative HEENT: Atraumatic, PERRLA, EOMI, Normocephalic Oral: No Gingival or Mucosal Lesions/ Ulcerations Neck: Supple, No JVD, Negative Carotid Bruits Chest wall/Lungs: Air entry diminished in bilateral lung bases. No crepitation/rhonchi Cardiovascular: Regular rate, Regular Rhythm, Normal S1, Normal S2, No M/G/R Abdomen: Bowel Sounds Present, Soft, tenderness has much improved almost resolved. Not distended : No dysuria. No renal angle tenderness. No suprapubic tenderness. Extremities: No edema, Capillary Refill Less than 3 Seconds Skin: No rashes, No breakdown Musculoskeletal: No Tenderness to Palpation of Joints or Extremities Neurological: Cranial nerves II-XII grossly intact, DTR 2+/4. No acute focal neurological deficit. Psych/Mental Status: Normal Affect, Appropriate. Weight / BMI Weight Weight: 163 lb 9.328 oz Body Mass Index (BMI) 27.9 ABG / Lab / Microbiology Data 09/26/23 06:05 09/26/23 06:05 Laboratory: Laboratory Results - last 24 hr 09/25/23 04:50: PTH Intact 79.8 09/26/23 06:05: WBC 4.2 L, RBC 4.43, Hgb 13.1, Hct 40.6, MCV 91.6, MCH 29.6, MCHC 32.3, RDW Std Deviation 42.8, RDW Coeff of Caity 12.8, Plt Count 296, MPV 9.6, Immature Gran % (Auto) 0.500, Neut % (Auto) 41.7 L, Lymph % (Auto) 37.1, [place] % (Auto) 15.7 H, Eos % (Auto) 4.3, Baso % (Auto) 0.7, Absolute Neuts (auto)1.7 L, Absolute Lymphs (auto) 1.54, Nucleated RBC % 0, Sodium 141, Potassium 3.3L, Chloride 110 H, Carbon Dioxide 27.0, Anion Gap 4 L, BUN 10, Creatinine 0.70, Estim Creat Clear Calc 83.27, Est GFR (MDRD) Af Amer 110, Est GFR (MDRD) Non-Af 91, BUN/Creatinine Ratio 14.4, Glucose 104, Calcium 8.9 D/C Instructions Discharge Diet: Soft diet (For the next 3 to 4 days) Weight Bearing Status: Weight bearing as tolerated Call your doctor if you observe: Fever of 101 or Higher, Coldness, Increased Pain, Numbness or Tingling, Change in Color, Inability to urinate, Inability to have a bowel movement, Using more than 1 pad per hour, Shortness of breath, Dizziness, Fainting spells, Swelling in the ankles, Chest pain, Prolonged hiccupping, Increased palpitations (irregular heartbeat) and Calf discomfort When: IN 2 WEEKS Meaningful Use Info Meaningful Use Diagnoses (Choose all that apply): None applicable Discharge Plan Admission Admit Date/Time: 09/24/23 03:29 Primary Reason for Your Visit: Acute diverticulitis: Lower GI bleed. Attending Provider: Sherif Benson Primary Care Provider: Hernandez Mosley [employer] Consult[employer] Providers: Jorge L May; Jessica Quintero Discharge Orders/Prescriptions Prescriptions: New polyethylene glycol 3350 17 gram Powder In Packet 17 g PO DAILY PRN (Reason: CONSTIPATION) Qty: 0 0RF dicyclomine 10 mg Capsule 10 mg PO TIDAC PRN (Reason: ABDOMINAL CRAMPS) 30 Days Qty: 30 0RF acidophilus-pectin, citrus 25 million cell -100 mg Tablet 2 tab PO BID Qty: 0 0RF Rx Instructions: Cbzi-ohy-ghwmnlb. Probiotic. At least for 2 week. ciprofloxacin HCl 500 mg tablet 500 mg PO BID 6 Days Qty: 12 0RF metronidazole 500 mg tablet 500 mg PO Q8H 5 Days Qty: 15 0RF Continued venlafaxine 37.5 MG tablet 75 mg PO QHS Patient Comments: mood amlodipine 5 MG tablet 2.5 mg PO QHS ropinirole 0.25 mg tablet 0.5 mg PO QHS Patient Comments: TAKE 2 TABLETS BY MOUTH ONCE DAILY AT BEDTIME FOR 90 DAYS pantoprazole 40 MG tablet,delayed release (DR/EC) 40 mg PO DAILY Patient Comments: acid reflux ramipril 10 MG capsule 10 mg PO BID acetaminophen 500 mg tablet 1,000 mg PO Q6H PRN Qty: 100 0RF tramadol 50 mg tablet 50 - 100 mg PO Q8H PRN (Reason: pain) Qty: 10 0RF Held furosemide 20 mg tablet 20 mg PO DAILY Hold Instructions: Hold for 2 days Referrals / Follow Up: Rian Fierro MD [Med Staff - Active Staff] - 10/18/23 2:30 pm Stanley Godwin DO [Med Staff - Active Staff] - Within 3 Months Hernandez Mosley Chi, MD [Primary Care Provider] - Disposition Disposition (needs filled in before D/C Order can be placed): Home, Self Care Charges/Coding Visit Charges Inpatient E&M: 50773 Disch Hosp >30min 09/26/23 0843 <Electronically signed by Sherif Benson MD> Cosigner Signature (if applicable): CC: Dr. Sherif Benson MD; Dr. Hernandez Mosley MD~ Signed [facility] Work Phone: 1(268) 952-794203-05-2024 Discharge summary Author Sherif Benson [facility] September 26, 2023 8:39am Note Date/Time September 26, 2023 8:23 am [facility] Medical Records Department [address] [place] [address] Instructions for Home/Discharge Instructions 09/26/23 0729 MR#: [id number] Acct: [id number] Name: JUDY REAGAN Rep #:[id number] : 1960 63 From: Sherif Pena PCP: Dr. Hernandez Mosley MD Status:ADM I N Discharge Instructions Diet Discharge Diet: Soft diet (For the next 3 to 4 days) Activity Discharge Activity: Return to Normal Activity Weight Bearing Status: Weight bearing as tolerated Dressing / Incision Call your doctor if you observe: Fever of 101 or Higher, Coldness, Increased Pain, Numbness or Tingling, Change in Color, Inability to urinate, Inability to have a bowel movement, Using more than 1 pad per hour, Shortness of breath, Dizziness, Fainting spells, Swelling in the ankles, Chest pain, Prolonged hiccupping, Increased palpitations (irregular heartbeat) and Calf discomfort Follow Up Care When: IN 2 WEEKS Test Results: Test results from this visit will be discussed in further detail at your follow- up appointment, if applicable. Discharge Plan Admission Admit Date/Time: 09/24/23 03:29 Primary Reason for Your Visit: Acute diverticulitis: Lower GI bleed. Attending Provider: Sherif Benson Primary Care Provider: Hernandez Mosley [employer] Providers: Jorge L May; Jessica Quintero Discharge Orders/Prescriptions Prescriptions: New polyethylene glycol 3350 17 gram Powder In Packet 17 g PO DAILY PRN (Reason: CONSTIPATION) Qty: 0 0RF dicyclomine 10 mg Capsule 10 mg PO TIDAC PRN (Reason: ABDOMINAL CRAMPS) 30 Days Qty: 30 0RF acidophilus-pectin, citrus 25 million cell -100 mg Tablet 2 tab PO BID Qty: 0 0RF Rx Instructions: Cnwv-kcb-sijqgke. Probiotic. At least for 2 week. ciprofloxacin HCl 500 mg tablet 500 mg PO BID 6 Days Qty: 12 0RF metronidazole 500 mg tablet 500 mg PO Q8H 5 Days Qty: 15 0RF Continued venlafaxine 37.5 MG tablet 75 mg PO QHS Patient Comments: mood amlodipine 5 MG tablet 2.5 mg PO QHS ropinirole 0.25 mg tablet 0.5 mg PO QHS Patient Comments: TAKE 2 TABLETS BY MOUTH ONCE DAILY AT BEDTIME FOR 90 DAYS pantoprazole 40 MG tablet,delayed release (DR/EC) 40 mg PO DAILY Patient Comments: acid reflux ramipril 10 MG capsule 10 mg PO BID acetaminophen 500 mg tablet 1,000 mg PO Q6H PRN Qty: 100 0RF tramadol 50 mg tablet 50 - 100 mg PO Q8H PRN (Reason: pain) Qty: 10 0RF Held furosemide 20 mg tablet 20 mg PO DAILY Hold Instructions: Hold for 2 days Referrals / Follow Up: Rian Fierro MD [Med Staff - Active Staff] - 10/18/23 2:30 pm Hernandez Mosley Chi, MD [Primary Care Provider] - FriendStanley DO [Med Staff - Active Staff] - Within 3 Months Disposition Disposition (needs filled in before D/C Order can be placed): Home, Self Care 09/26/23 0839<Electronically signed by Sherif Benson MD>Sherif Benson MD CC: Dr. Jorge L May DO; Dr. Jessica Quintero DO; Dr. Hernandez Mosley MD ~ Signed [facility] Work Phone: 1(163) 500-553203-04-2024 Progress note Author Sherif Benson [facility] September 25, 2023 5:12pm Note Date/Time September 25, 2023 5:12 pm [facility] Medical Records Department [address] [place] [address] Progress Note - Hospitalist 09/25/23 1707 MR#: [id number] Acct: [id number] Name: JUDY REAGAN ANN Rep #:[id number] : 1960 63 From: Sherif Pena PCP: Dr. Hernandez Mosley MD Status:ADM I N Location: [place] [address] Reason for Visit Reason for Visit: Diagnoses Diverticulitis of intestine, part unspecified, without perforation or abscess without bleeding (09/24/23) Gastrointestinal hemorrhage, unspecified (09/24/23) Objective Data Objective Data Vital Signs: Vital Signs Temp Pulse Resp BP Pulse Ox O2 Del Method 97.1 F L 80 16 167/89 H 100 Room Air 09/25/23 16:23 09/25/23 16:23 09/25/23 16:23 09/25/23 16:23 09/25/23 16:23 09/25/23 16:23 Oxygen Delivery Method Room Air Weight: 167 lb 5.294 oz Body Mass Index (BMI) 28.7 Intake & Output: Intake and Output for Last 24 Hours 09/23/23 09/24/23 09/25/23 23:59 23:59 23:59 Intake Total 4500.01 / 4500.01 1811.66 / 1811.66 Output Total 0 / 0 Balance 4500.01 / 4500.01 1811.66 / 1811.66 Lab / Micro Data 09/25/23 04:50 09/25/23 04:50 Labs: Laboratory Results - last 24 hr 09/24/23 19:50: ESR 9, Lactate Dehydrogenase 166, C-React Prot Ext Range 12.90 H 09/25/23 04:50: WBC 5.1, RBC 4.10 L, Hgb 12.2, Hct 38.3, MCV 93.4, MCH 29.8, MCHC 31.9 L, RDW Std Deviation 44.8 H, RDW Coeff of Caity 13.0, Plt Count 267, MPV10.0, Immature Gran % (Auto) 0.400, Neut % (Auto) 53.3, Lymph % (Auto) 29.0, [place] % (Auto) 14.4 H, Eos % (Auto) 2.1, Baso % (Auto) 0.8, Absolute Neuts (auto) 2.7, Absolute Lymphs (auto) 1.49, Nucleated RBC % 0, Sodium 142, Potassium 4.0, Chloride 110 H, Carbon Dioxide 27.0, Anion Gap 5, BUN 6 L, Creatinine 0.68, Estim Creat Clear Calc 86.65, Est GFR (MDRD) Af Amer 113, Est GFR (MDRD) Non-Af 93, BUN/Creatinine Ratio 8.8 L, Glucose 89, Calcium 8.6, PTH Intact 79.8 Physical Exam Narrative Seen and examined. Patient was admitted with lower cramping abdominal pain and bloody stool. She stated diffuse abdominal pain but predominantly over left lower quadrant. She had fourth episode of diverticulitis and little over a year. Plan for colonoscopy today. Physical exam General: Alert, Oriented x3, Cooperative HEENT: Atraumatic, PERRLA, EOMI, Normocephalic Oral: No Gingival or Mucosal Lesions/ Ulcerations Neck: Supple, No JVD, Negative Carotid Bruits Chest wall/Lungs: Air entry diminished in bilateral lung bases. No crepitation/rhonchi Cardiovascular: Regular rate, Regular Rhythm, Normal S1, Normal S2, No M/G/R Abdomen: Bowel Sounds Present, Soft, mild tenderness over left lower quadrant ondeep palpation. Not distended : No dysuria. No renal angle tenderness. No suprapubic tenderness. Extremities: No edema, Capillary Refill Less than 3 Seconds Skin: No rashes, No breakdown Musculoskeletal: No Tenderness to Palpation of Joints or Extremities Neurological: Cranial nerves II-XII grossly intact, DTR 2+/4. No acute focal neurological deficit. Psych/Mental Status: Normal Affect, Appropriate. Assessment & Plan Assessment/Plan (1) Acute diverticulitis: PLAN: Plan This is a 63-year-old female admitted for diffuse abdominal pain predominantly left lower quadrant, hematochezia. Recently diagnosed with diverticulitis, fourth episode little over a year and started on oral Augmentin. 1. Acute Diverticulitis that Failed Outpatient Antibiotic Treatment - Admit to general medical floor. Continue broad-spectrum antibiotics with IV Rocephin andIV Flagyl to cover Gram-negatives and anaerobes. Give Tylenol prn for [id number] (level 1-5/10) pain or fever. Give Morphine IV prn for severe (level 6-10/10) pain. 3/4: Patient had colonoscopy today. CRP elevated. Impressions : - Diverticulosis in the recto-sigmoid colon, in the sigmoid colon, in the descending colon and at the splenic flexure. - Localized severe inflammation was found in the sigmoid colon, in the descending colon and at the splenic flexure secondary to ischemic colitis. - No specimens collected. Recommendations : - Resume regular diet - No repeat colonoscopy. 2. Hypokalemia of 3.4 mmol/L present on admission complicating #1 - Give supplemental KCl and then recheck BMP in the AM to ensure improvement. 3/4: Serum potassium normal 4.0. Sodium 142. 3. Essential hypertension - Continue home regimen and give IV Hydralazine prn for systolic blood pressure > 160 mm Hg. 4. History of tobacco abuse - Tobacco Cessation will be strongly encouraged. 5. Psoriatic arthritis - Stable. 6. Pseudogout - Stable. 7. Depression - Continue Venlafaxine as preious plus give prn Xanax for breakthrough symptoms. 8. RLS - Resume Requip. 9. GERD; with history of PUD - Continue PPI IV. 10. DDD of the lumbar spine; s/p lumbar fusion (2022) - Stable. 11. OA; s/p partial Left knee replacement - Stable. Give Tylenol prn. 12. History of iliotibial band syndrome of the LLE followed by Dr. Birch of orthopedic surgery - Stable. 13. DVT prophylaxis - Lovenox 40 mg sq daily plus SCD's. Laboratory Results 09/25/23 04:50: WBC 5.1, RBC 4.10 L, Hgb 12.2, Hct 38.3, MCV 93.4, MCH 29.8, MCHC 31.9 L, RDW Std Deviation 44.8 H, RDW Coeff of Caity 13.0, Plt Count 267, MPV10.0, Immature Gran % (Auto) 0.400, Neut % (Auto) 53.3, Lymph % (Auto) 29.0, [place] % (Auto) 14.4 H, Eos % (Auto) 2.1, Baso % (Auto) 0.8, Absolute Neuts (auto)2.7, Absolute Lymphs (auto) 1.49, Nucleated RBC % 0, Sodium 142, Potassium 4.0, Chloride 110 H, Carbon Dioxide 27.0, Anion Gap 5, BUN 6 L, Creatinine 0.68, Estim Creat Clear Calc 86.65, Est GFR (MDRD) Af Amer 113, Est GFR (MDRD) Non-Af 93, BUN/Creatinine Ratio 8.8 L, Glucose 89, Calcium 8.6, PTH Intact 79.8 Charges/Coding Visit Charges Inpatient E&M: 39139 Subs Hosp L2 09/25/23 9312 <Electronically signed by Sherif Benson MD> Cosigner Signature (if applicable): CC: ~ Signed [facility] Work Phone: 1(974) 403-662003-04-2024 [facility]24 Procedure note [facility]03-04-2024 Procedure [facility] 09-24-2023 Consult note Author Stanley Godwin [facility] September 24, 2023 6:07pm Note Date/Time September 24, 2023 5:58 pm [facility] Medical Records Department [address] [place] [address] Consultation - GI 09/24/23 1754 MR#: [id number] Acct: [id number] Name: JUDY REAGAN ANN Rep #:[id number] : 1960 63 From: Stanley Godwin DO PCP: Dr. Hernandez Mosley MD Status:ADM I N Location: [place] [address] HPI Consult Data Date of Consult: 09/24/23 HPI Narrative Reason for Consultation: Diverticulitis HPI Narrative: JUDY REAGAN, is a 63 F who [id number] F with a past medical history of who essential hypertension, history of tobacco abuse, psoriatic arthritis, pseudogout, s/p partial Left knee replacement, history of iliotibial band syndrome of the LLE followed by Dr. Birch of orthopedic surgery and history ofrecently diagnosed acute diverticulitis diagnosed on CT as an outpatient on September 21, 2023. It was treated with oral Augmentin [facility] pain. Mrs. Reagan reports her symptoms began approximately one week prior to admission with the gradual-onset of generalized,cramping abdominal pain that eventually focused in her LLQ. Though she had beentaking her Augmentin her symptoms worsened with increased abdominal pain and malaise so she decided to come in for further evaluation and treatment. She is very concerned because she has not previously had blood in her stools with her acute flares of diverticulitis with at least 4 episodes in the past year. In the ER she was diagnosed with Acute Diverticulitis that Failed Outpatient Antibiotic Treatment. Her initial CT scan on 09/21/2023 displayed: Diverticula of the proximal descending colon with wall thickening and minimal surrounding inflammation which may represent diverticulitis. There is also mild thickening of the wall the distal transverse colon with diverticula which may represent diverticulitis. There is no abscess or perforation. Her CT scan today displayed: Previously noted inflammatory changes around the descending and sigmoid colon are no longer identified suggesting previously identified diverticulitis has resolved. No perforation or abscess is noted. Extensive sigmoid diverticula noted No suspicious solid organ abnormality No free intraperitoneal fluid, air, or suspicious adenopathy She is still having a lot of cramping and she is still having episodes of lower GI bleeding. She had a colonoscopy back in 2019 and it was normal. She had an upper endoscopy by Dr. Krueger and was told that she had a duodenal stricture which tried to be transversed but she developed bleeding requiring blood transfusion and an overnight stay in the hospital. [facility] Medical History (Updated 09/24/23 @ 18:[address] Angel Friend, DO) Alcohol use Anxiety Back pain Chronic pain Former smoker GERD (gastroesophageal reflux disease) History of diverticulitis History of pain when walking History of steroid therapy Hx of peptic ulcer Hx of psoriatic arthritis Hypertension Osteoarthritis Physical exam, pre-employment Post-menopausal Restless legs Wears glasses Home Medications venlafaxine 37.5 mg tablet 75 mg PO QHS depression 03/20/16 [History Last Taken 10/10/22] amlodipine 5 mg tablet 2.5 mg PO QHS BP 01/03/18 [History Last Taken 06/21/23] pantoprazole 40 mg tablet,delayed release 40 mg PO DAILY GERD 08/09/22 [History Last Taken 06/21/23] ramipril 10 mg capsule 10 mg PO BID HEART 08/09/22 [History Last Taken 10/11/22] ropinirole 0.25 mg tablet 0.5 mg PO QHS RESTLESS LEGS 08/09/22 [History Last Taken 10/10/22] furosemide 20 mg tablet 20 mg PO DAILY 01/12/23 [History Last Taken Unknown] acetaminophen 500 mg tablet 1,000 mg (2 x 500 mg) PO Q6H PRN #100 tabs 06/21/23 [Rx Last Taken Unknown] tramadol 50 mg tablet 50 - 100 mg (1 - 2 x 50 mg) PO Q8H PRN pain #42 tabs 08/11/23 [Rx Last Taken Unknown] Allergy/AdvReac Type Severity Reaction Status Date / Time adhesive tape Allergy Severe blistering Verified 08/21/23 11:32 bee venom protein (honey bee) Allergy Swelling Verified 08/21/23 11:32 Family History Other Breast cancer CAD (coronary artery disease) Heart disease Hypertension Surgical History History of appendectomy History of section History of hysterectomy History of lumbar spinal fusion History of total right knee replacement Status post left partial knee replacement Social History household members: spouse Smoking Status: Former smoker alcohol intake: current alcohol intake frequency: holidays/special occasions only substance use type: does not use what type of physical activity do you participate in: walking frequency: 1-2 times per week ROS ROS Narrative Review of systems: Constitutional: Patient admits to malaise but denies fever or chills. Eyes: Patient denies vision changes or discharge from eyes. ENT: Patient denies runny nose, sore throat or ear pain. CV: Patient denies chest pain or palpitations. Resp: Patient denies SOB or cough. GI: Patient admits to abdominal pain with nausea as per HPI. : Patient denies dysuria, hematuria or urinary frequency. MSK: Patient admits to muscle and joint pain that are chronic. Psych: Patient denies uncontrolled depression or anxiety. Hematology: Patient admits to blood in stools. Neurologic: Patient denies headache, paresthesias or focal neurologic deficits. Endocrinology: Patient denies polyuria, polydipsia and polyphagia. Physical Exam Const alert, oriented x3 and average body habitus General Appearance: cooperative HEENT normocephalic, head/scalp atraumatic and hearing grossly normal bilaterally HEENT Narrative: Mucous membranes dry. Eyes PERRL and EOMs intact bilaterally Neck no lymphadenopathy and supple Resp normal respiratory effort, no retractions, no use of accessory muscles and clearto auscultation bilaterally Cardio regular rate and regular rhythm GI normal to inspection, nondistended, normoactive bowel sounds, soft to palpation and non-distended GI Narrative: Mild LLQ TTP. Auscultation: hypoactive bowel sounds Extremity normal to inspection, full ROM and no clubbing, cyanosis or edema Skin Skin Narrative: Patient has no evidence of rash. Neuro oriented x3, CN's II-XII intact bilaterally, moves all extremities and no focal motor deficits Sensorium / Orientation: awake, alert, oriented to person, oriented to place andoriented to time Speech: speech normal Motor Exam: strength 5/5 throughout Psych affect normal Lab / Micro Data 09/24/23 05:20 09/24/23 05:20 Labs: Laboratory Results - last 24 hr 09/24/23 01:10: WBC 7.0, RBC 4.66, Hgb 13.6, Hct 42.8, MCV 91.8, MCH 29.2, MCHC 31.8 L, RDW Std Deviation 43.7, RDW Coeff of Caity 13.0, Plt Count 296, MPV 10.0, Immature Gran % (Auto) 0.300, Neut % (Auto) 57.1, Lymph % (Auto) 27.2, [place] % (Auto) 12.8 H, Eos % (Auto) 1.6, Baso % (Auto) 1.0, Absolute Neuts (auto) 4.0, Absolute Lymphs (auto) 1.89, Nucleated RBC % 0, Sodium 139, Potassium 3.4 L, Chloride 107, Carbon Dioxide 29.0, Anion Gap 3 L, BUN 12, Creatinine 0.74, EstimCreat Clear Calc 68.94, Est GFR (MDRD) Af Amer 103, Est GFR (MDRD) Non-Af 85, BUN/Creatinine Ratio 16.2, Glucose 101, Lactic Acid 0.7, Calcium 9.1, Magnesium 2.4 09/24/23 05:20: WBC 6.1, RBC 4.11 L, Hgb 12.1, Hct 38.3, MCV 93.2, MCH 29.4, MCHC 31.6 L, RDW Std Deviation 44.5 H, RDW Coeff of Caity 13.1, Plt Count 255, MPV10.3, Immature Gran % (Auto) 0.500, Neut % (Auto) 50.3, Lymph % (Auto) 33.2, [place] % (Auto) 14.2 H, Eos % (Auto) 1.3, Baso % (Auto) 0.5, Absolute Neuts (auto)3.0, Absolute Lymphs (auto) 2.01, Nucleated RBC % 0, Sodium 140, Potassium 4.5, Chloride 111 H, Carbon Dioxide 28.0, Anion Gap 1 L, BUN 9, Creatinine 0.63, Estim Creat Clear Calc 93.00, Est GFR (MDRD) Af Amer 124, Est GFR (MDRD) Non-Af 102, BUN/Creatinine Ratio 14.3, Glucose 92, Calcium 8.4 L, Phosphorus 3.3, Magnesium 2.3, Total Bilirubin 0.30, AST 15, ALT 27, Alkaline Phosphatase 86, Total Protein 6.5, Albumin 3.3, Globulin 3.2, Albumin/Globulin Ratio 1.0, TSH 4.56 H Imaging Radiology Impression Abdomen/Pelvis CT 09/24/23 07:52 IMPRESSION: Previously noted inflammatory changes around the descending and sigmoid colon are no longer identified suggesting previously identified diverticulitis has resolved. No perforation or abscess is noted. Extensive sigmoid diverticula noted No suspicious solid organ abnormality No free intraperitoneal fluid, air, or suspicious adenopathy Electronically Signed: Luis Antonio Uriostegui MD at 13:09 EST , Assessment & Plan Assessment/Plan (1) Acute diverticulitis: (2) GI bleed: PLAN: Plan 63-year-old with recurrent diverticulitis comes in with abdominal pain and diagnosed with inflammation possibly secondary to diverticulitis with on imaginghas shown that it is resolved but she still continues to have lower GI bleeding followed by abdominal pain and cramping. It sounds to me as if this started secondary to intestinal angina as approximately 4 years ago when she had her first episode of diverticulitis she was initially brought in because she developed upper abdominal pain and chest pain in the middle of the night by her because of a possible heart attack. At that time she was diagnosed with diverticulitis and has been treated for diverticulitis every time she gets abdominal pain and cramping. I do not suspect that if this was diverticulitis it would get better that fast radiologically and she still having symptoms clinically. It sounds more to me as if she is experiencing signs and symptoms of intestinal angina associated with sigmoid colitis associated with diverticulosis that progressed to diverticulitis and ischemic colitis. Sigmoid colitis associated with diverticulosis is an indeterminate colitis which is treated similarly to inflammatory bowel disease but this did not have the antibodies or genetics associated with inflammatory bowel disease. I am not sure why she developed a duodenal stricture. Typically that is associated with nonsteroidal medications that she does not take and has not taken in the past. Also different diagnosis for duodenal stricture would be celiac disease, autoimmune enteritis, chronic pancreatitis, stricture duodenal diverticulitis. She will undergo an upper and lower endoscopy tomorrow to evaluate her upper GI tract and lower GI tract. I will also send off ANCA, ALMA, ESR, CRP, LDH, protein electrophoresis, IBD SGI. Charges/Coding Visit Charges Inpatient E&M: 71228 Init Hosp L3 09/24/23 1807 <Electronically signed by Stanley Godwin DO> Cosigner Signature (if applicable): CC: Dr. Jorge L May DO; Dr. Hernandez Mosley MD~ Signed [facility] Work Phone: 1(712) 252-410303-03-2024 Progress note Author Jessica Quintero [facility] September 24, 2023 1:30pm Note Date/Time September 24, 2023 7:53 am [facility] Medical Records Department [address] [place] [address] Progress Note - Hospitalist 09/24/23 0748 MR#: [id number] Acct: [id number] Name: JUDY REAGAN Rep #:[id number] : 1960 63 From: Jessica Quintero DO PCP: Dr. Hernandez Mosley MD Status:ADM I N Location: [place] [address] Hospitalist Note Patient is a 63-year-old white female who presented to the emergency department at [facility] on 09/24/2023 with worsening abdominal pain. She was recently diagnosed with acute diverticulitis on CT as an outpatient. This was on September 21, 2023 at which time she was treated with oral Augmentin. Shehas been having worsening abdominal pain so presented to emergency department. Her symptoms began about a week prior to admission with a gradual onset of generalized cramping in the abdomen that eventually became more focused in her left lower quadrant. Although she has been taking her home Augmentin her symptoms worsened and she had increasing abdominal pain, malaise and weakness soshe decided to come to the emergency department for further evaluation. She hasalso noted some blood in her stool. Vital signs on presentation showed temperature of 97.5, heart rate 79, blood pressure was initially 180/105 but hastrended downward, respiratory was 16 oxygen saturations were 100% on room air. Her CBC showed no significant abnormalities and no left shift. Her chemistry panel showed mild hypokalemia with potassium of 3.4 but was otherwise unremarkable. Her lactic acid was normal at 0.7. Liver functions are normal. On reviewing data she had a ova and parasites that are pending from 09/21/2023 and stool lactoferrin that was positive. CT of the abdomen pelvis that was doneon the showed diverticula of the proximal descending colon with wall thickening and minimal surrounding inflammation that may suggest diverticulitis and mild thickening of the wall of the distal transverse colon with no abscess or perforation. No repeat imaging was done on admission and she was admitted tomedical floor and placed on IV antibiotics for suspected worsening diverticulitis. She was placed on IV fluids and placed on ceftriaxone and Flagyl. Will continue this therapy but I will go ahead and repeat a CT of her abdomen and pelvis with IV and p.o. contrast since she has had significantly worsening symptoms since starting outpatient oral antibiotics. Her initial CT was not grossly positive for severe diverticulitis. 09/24/23 0756 <Electronically signed by Jessica Quintero DO> Cosigner Signature (if applicable): CC: ~ Signed ADDENDUM by Dr. Jessica Quintero DO on 09/24/[address] of the abdomen pelvis was completely unremarkable for any acute findings. She is still having significant crampy lower abdominal pain and she had blood inher stool so GI consult was placed. I discussed the case with Dr. Godwin and hewould like to proceed with a colonoscopy. GoLytely and Dulcolax were ordered for bowel prep and plan is for colonoscopy tomorrow. He will see the patient later today in consult. 09/24/23 1330<Electronically signed by Jessica Quintero DO> Cosigner Signature (if applicable): cc: ~* Signed [facility] Work Phone: 1(909) 575-119803-03-2024 History and physical note Author Jorge L Davalos [facility] September 24, 2023 4:51am Note Date/Time September 24, 2023 3:28 am [facility] Medical Records Department [address] [place] [address] H&P Exam - Hospitalist 09/24/23 0309 MR#: [id number] Acct: [id number] Name: JUDY REAGAN Rep #:[id number] : 1960 63 From: Jorge L Gunn DO PCP: Dr. Hernandez Mosley MD Status:ADM I N Location: [place] [address] HPI - General General Date of Admission: 09/24/23 Date of Service: 09/24/23 Chief Complaint: Worsening Abdominal Pain. HPI Narrative JUDY REAGAN, is a 63 F with a past medical history of who essential hypertension, history of tobacco abuse, psoriatic arthritis, pseudogout, depression, RLS, GERD; with history of PUD, DDD of the lumbar spine; s/p lumbar fusion (2022), OA; s/p partial Left knee replacement, history of iliotibial band syndrome of the LLE followed by Dr. Birch of orthopedic surgery and history of recently diagnosed acute diverticulitis diagnosed on CT as an outpatient on September 21, 2023 which was treated with oral Augmentin who presents to [facility] ER complaining of worsening abdominal pain. Mrs. Reagan reports her symptoms began approximately one week prior to admission with the gradual-onset of generalized, cramping abdominal pain that eventually focused in her LLQ. Though she had been taking her Augmentin her symptoms worsened with increased abdominal pain and malaise so she decided to come in for further evaluation and treatment. She is very concerned because she has not previously had blood in her stools with her acute flares of diverticulitis with at least 4 episodes in the past year. In the ER she was diagnosed with Acute Diverticulitis that Failed Outpatient Antibiotic Treatment complicated by Hypokalemia of 3.4 mmol/L present on admission and she was then admitted to the general medical floor for ongoing care for a stay that is expected to be greater than 48 hours. [facility] Medical History Alcohol use Anxiety Back pain Former smoker History of diverticulitis History of pain when walking History of steroid therapy Hx of peptic ulcer Hx of psoriatic arthritis Hypertension Osteoarthritis Physical exam, pre-employment Post-menopausal Restless legs Wears glasses Home Medications venlafaxine 37.5 mg tablet 75 mg PO QHS depression 03/20/16 [History Last Taken 10/10/22] amlodipine 5 mg tablet 2.5 mg PO QHS BP 01/03/18 [History Last Taken 06/21/23] pantoprazole 40 mg tablet,delayed release 40 mg PO DAILY GERD 08/09/22 [History Last Taken 06/21/23] ramipril 10 mg capsule 10 mg PO BID HEART 08/09/22 [History Last Taken 10/11/22] ropinirole 0.25 mg tablet 0.5 mg PO QHS RESTLESS LEGS 08/09/22 [History Last Taken 10/10/22] furosemide 20 mg tablet 20 mg PO DAILY 01/12/23 [History Last Taken Unknown] acetaminophen 500 mg tablet 1,000 mg (2 x 500 mg) PO Q6H PRN #100 tabs 06/21/23 [Rx Last Taken Unknown] tramadol 50 mg tablet 50 - 100 mg (1 - 2 x 50 mg) PO Q8H PRN pain #42 tabs 08/11/23 [Rx Last Taken Unknown] Allergy/AdvReac Type Severity Reaction Status Date / Time adhesive tape Allergy Severe blistering Verified 08/21/23 11:32 bee venom protein (honey bee) Allergy Swelling Verified 08/21/23 11:32 Family History Other Breast cancer CAD (coronary artery disease) Heart disease Hypertension Surgical History History of appendectomy History of section History of hysterectomy History of lumbar spinal fusion History of total right knee replacement Status post left partial knee replacement Social History household members: spouse Smoking Status: Former smoker alcohol intake: current alcohol intake frequency: holidays/special occasions only substance use type: does not use what type of physical activity do you participate in: walking frequency: 1-2 times per week ROS ROS Narrative Review of systems: Constitutional: Patient admits to malaise but denies fever or chills. Eyes: Patient denies vision changes or discharge from eyes. ENT: Patient denies runny nose, sore throat or ear pain. CV: Patient denies chest pain or palpitations. Resp: Patient denies SOB or cough. GI: Patient admits to abdominal pain with nausea as per HPI. : Patient denies dysuria, hematuria or urinary frequency. MSK: Patient admits to muscle and joint pain that are chronic. Psych: Patient denies uncontrolled depression or anxiety. Hematology: Patient admits to blood in stools. Neurologic: Patient denies headache, paresthesias or focal neurologic deficits. Endocrinology: Patient denies polyuria, polydipsia and polyphagia. Vital Signs Vital Signs Vital Signs: 09/24/23 00:53 09/24/23 00:53 09/24/23 01:01 Temperature 97.5 F L 97.5 F L 98.7 F Temperature Source Oral Oral Temporal Pulse Rate 79 71 69 Respiratory Rate 16 16 16 Blood Pressure 180/105 H 181/96 H 169/103 H Blood Pressure Mean 130 124 125 Pulse Ox 100 100 98 Oxygen Delivery Method Room Air Room Air Room Air Weight Weight: 138 lb 6.4 oz Body Mass Index (BMI) 23.7 Physical Exam Const alert, oriented x3 and average body habitus General Appearance: cooperative HEENT normocephalic, head/scalp atraumatic and hearing grossly normal bilaterally HEENT Narrative: Mucous membranes dry. Eyes PERRL and EOMs intact bilaterally Neck no lymphadenopathy and supple Resp normal respiratory effort, no retractions, no use of accessory muscles and clearto auscultation bilaterally Cardio regular rate and regular rhythm GI normal to inspection, nondistended, normoactive bowel sounds, soft to palpation and non-distended GI Narrative: Mild LLQ TTP. Auscultation: hypoactive bowel sounds Extremity normal to inspection, full ROM and no clubbing, cyanosis or edema Skin Skin Narrative: Patient has no evidence of rash. Neuro oriented x3, CN's II-XII intact bilaterally, moves all extremities and no focal motor deficits Sensorium / Orientation: awake, alert, oriented to person, oriented to place andoriented to time Speech: speech normal Motor Exam: strength 5/5 throughout Psych affect normal Results Medical Records Data Attestation: I reviewed the patient's medical records Lab / Micro Data Attestation: I reviewed the patient's lab results. 09/24/23 01:10 09/24/23 01:10 Labs: Laboratory Results - last 24 hr 09/24/23 01:10: WBC 7.0, RBC 4.66, Hgb 13.6, Hct 42.8, MCV 91.8, MCH 29.2, MCHC 31.8 L, RDW Std Deviation 43.7, RDW Coeff of Caiyt 13.0, Plt Count 296, MPV 10.0, Immature Gran % (Auto) 0.300, Neut % (Auto) 57.1, Lymph % (Auto) 27.2, [place] % (Auto) 12.8 H, Eos % (Auto) 1.6, Baso % (Auto) 1.0, Absolute Neuts (auto) 4.0, Absolute Lymphs (auto) 1.89, Nucleated RBC % 0, Sodium 139, Potassium 3.4 L, Chloride 107, Carbon Dioxide 29.0, Anion Gap 3 L, BUN 12, Creatinine 0.74, EstimCreat Clear Calc 68.94, Est GFR (MDRD) Af Amer 103, Est GFR (MDRD) Non-Af 85, BUN/Creatinine Ratio 16.2, Glucose 101, Lactic Acid 0.7, Calcium 9.1, Magnesium 2.4 Assessment & Plan Assessment/Plan (1) Acute diverticulitis: PLAN: Plan 1. Acute Diverticulitis that Failed Outpatient Antibiotic Treatment - Admit to general medical floor. Continue broad-spectrum antibiotics with IV Rocephin andIV Flagyl to cover Gram-negatives and anaerobes. Give Tylenol prn for [id number] (level 1-5/10) pain or fever. Give Morphine IV prn for severe (level 6-10/10) pain. 2. Hypokalemia of 3.4 mmol/L present on admission complicating #1 - Give supplemental KCl and then recheck BMP in the AM to ensure improvement. 3. Essential hypertension - Continue home regimen and give IV Hydralazine prn for systolic blood pressure > 160 mm Hg. 4. History of tobacco abuse - Tobacco Cessation will be strongly encouraged. 5. Psoriatic arthritis - Stable. 6. Pseudogout - Stable. 7. Depression - Continue Venlafaxine as preious plus give prn Xanax for breakthrough symptoms. 8. RLS - Resume Requip. 9. GERD; with history of PUD - Continue PPI IV. 10. DDD of the lumbar spine; s/p lumbar fusion (2022) - Stable. 11. OA; s/p partial Left knee replacement - Stable. Give Tylenol prn. 12. History of iliotibial band syndrome of the LLE followed by Dr. Birch of orthopedic surgery - Stable. 13. DVT prophylaxis - Lovenox 40 mg sq daily plus SCD's. Total time: Approximately 55 minutes. Charges/Coding Visit Charges Inpatient E&M: 27632 Init Hosp L2 09/24/23 0451 <Electronically signed by Jorge L May DO> Cosigner Signature (if applicable): CC: Dr. Jorge L May DO; Dr. Hernandez Mosley MD~ Signed [facility] Work Phone: 1(122) 324-987703-03-2024 Discharge [facility] 24, 2023 4:34am Note Date/Time September 24, 2023 3:12 am [facility] Medical Records Department [address] [place] [address] Emergency Department Summary 09/24/23 MR#: [id number] Acct: [id number] Name: JUDY REAGAN ANN Rep #:[id number] : 1960 63 From: Michael Lyman DO PCP: Dr. Hernandez Mosley MD Status:ADM I N Location: [address] History of Present Illness Chief Complaint: Abd Pain Informant: patient Narrative Narrative: Patient is a 63-year-old female with past medical history of hypertension and diverticulitis. She states that 3 to 4 days ago she developed some generalized abdominal discomfort greatest in the left lower abdomen and with her history went and saw her family doctor. She had outpatient blood work obtained and a CTscan which showed changes concerning for diverticulitis. She was started on Augmentin and has been taking as directed. Despite using the antibiotic she hashad worsening abdominal pain and now is reporting blood in her stool. Thereforethe worsening symptoms that are not being controlled with outpatient therapy shepresents for evaluation [facility] Medical History Alcohol use Anxiety Back pain Former smoker History of diverticulitis History of pain when walking History of steroid therapy Hx of peptic ulcer Hx of psoriatic arthritis Hypertension Osteoarthritis Physical exam, pre-employment Post-menopausal Restless legs Wears glasses Home Medications venlafaxine 37.5 mg tablet 75 mg PO QHS depression 03/20/16 [History Last Taken 10/10/22] amlodipine 5 mg tablet 2.5 mg PO QHS BP 01/03/18 [History Last Taken 06/21/23] pantoprazole 40 mg tablet,delayed release 40 mg PO DAILY GERD 08/09/22 [History Last Taken 06/21/23] ramipril 10 mg capsule 10 mg PO BID HEART 08/09/22 [History Last Taken 10/11/22] ropinirole 0.25 mg tablet 0.5 mg PO QHS RESTLESS LEGS 08/09/22 [History Last Taken 10/10/22] furosemide 20 mg tablet 20 mg PO DAILY 01/12/23 [History Last Taken Unknown] acetaminophen 500 mg tablet 1,000 mg (2 x 500 mg) PO Q6H PRN #100 tabs 06/21/23 [Rx Last Taken Unknown] tramadol 50 mg tablet 50 - 100 mg (1 - 2 x 50 mg) PO Q8H PRN pain #42 tabs 08/11/23 [Rx Last Taken Unknown] Allergy/AdvReac Type Severity Reaction Status Date / Time adhesive tape Allergy Severe blistering Verified 08/21/23 11:32 bee venom protein (honey bee) Allergy Swelling Verified 08/21/23 11:32 Family History Other Breast cancer CAD (coronary artery disease) Heart disease Hypertension Surgical History History of appendectomy History of section History of hysterectomy History of lumbar spinal fusion History of total right knee replacement Status post left partial knee replacement Social History household members: spouse Smoking Status: Former smoker alcohol intake: current alcohol intake frequency: holidays/special occasions only substance use type: does not use what type of physical activity do you participate in: walking frequency: 1-2 times per week ROS ROS ED Constitutional Constitutional ED: Denies chills or fever(s) ENT ENT ED: Denies sore throat Cardiovascular Cardiovascular: Denies chest pain Respiratory/Chest Respiratory/Chest: Denies cough or dyspnea Gastrointestinal Gastrointestinal: Reports abdominal pain, diarrhea and other Details: Positive hematochezia ; Denies nausea or vomiting Genitourinary Genitourinary ED: Denies dysuria or hematuria Musculoskeletal Musculoskeletal: Denies back pain or myalgias Integumentary Denies rash Neurologic Neurologic: Denies headache(s) Hematologic/Lymphatic Hematologic/Lymphatic: Denies easy bleeding or easy bruising EXAM Physical Exam Const Vital Signs: 09/24/23 00:53 09/24/23 00:53 09/24/23 01:01 Temperature 97.5 F L 97.5 F L 98.7 F Temperature Source Oral Oral Temporal Pulse Rate 79 71 69 Respiratory Rate 16 16 16 Blood Pressure 180/105 H 181/96 H 169/103 H Blood Pressure Mean 130 124 125 Pulse Ox 100 100 98 Oxygen Delivery Method Room Air Room Air Room Air Positive well nourished and well developed General Appearance ED: well developed; Negative for pallor HEENT HEENT Narrative: Normocephalic atraumatic Eyes PERRL and EOMs intact bilaterally General Eye ED: Negative for pale conjunctiva or scleral icterus Neck supple Resp normal respiratory effort and clear to auscultation bilaterally Cardio regular rate and regular rhythm Rate: other Other Details: Radial and carotid pulses are equal and symmetric GI non-distended GI Narrative: Abdomen is soft and nondistended with hyperactive bowel sounds. Patient has pain with palpation diffusely but greatest in the left lower quadrant. No voluntary guarding or rigidity. No pulsatile mass or fluid wave. No peritonealsigns Auscultation: hyperactive bowel sounds Palpation: soft Extremity normal to inspection Neuro oriented x3, CN's II-XII intact bilaterally and no sensory deficits noted Sensorium / Orientation: alert Motor Exam: strength 5/5 throughout Psych mental status grossly normal Skin no rashes or lesions noted and skin turgor normal General Skin Exam: Negative for jaundice or pallor MDM MDM MDM Narrative Medical decision making narrative: Patient presented to the ER hypertensive but otherwise with stable vitals. She had recent outpatient blood work and CT scan documenting diverticulitis. Differential diagnosis is for failure of outpatient therapy versus progression to sepsis versus potential perforation versus abscess formation. Basic labs were repeated and patient's white count and neutrophil count are normal her lactic acid is normal going against systemic infection. She is not febrile or tachycardic and without changes to her lactic acid or white blood cell count or neutrophil count she does not classify as sepsis. We discussed potential repeatCT scan but the patient's abdomen is soft without peritoneal signs and thereforemy concern for abscess or perforation is low and I do not feel there is need forrepeat imaging. Patient was started on Cipro and Flagyl as she has been on penicillin without symptom improvement. Moreover she reports that Cipro and Flagyl has helped resolve her infection in the past. As patient has had persistent pain that has been worsening over the last 2 days despite antibiotic therapy and has had recurrent bouts of diverticulitis I do not feel that she would do well with a switch to oral antibiotics and therefore discussed the casewith the hospitalist about potential admission for IV antibiotics as well as potential surgical consult secondary to her recurrent episodes. Patient was evaluated by the hospitalist and he does agree with this plan of care and therefore should be admitted at this time History & Record Review Discussion w/independent historian: Patient Lab Data Attestation: I reviewed the patient's lab results. Labs: Laboratory Results - last 24 hr 09/24/23 01:10 WBC 7.0 RBC 4.66 Hgb 13.6 Hct 42.8 MCV 91.8 MCH 29.2 MCHC 31.8 L RDW Std Deviation 43.7 RDW Coeff of Caity 13.0 Plt Count 296 MPV 10.0 Immature Gran % (Auto) 0.300 Neut % (Auto) 57.1 Lymph % (Auto) 27.2 [place] % (Auto) 12.8 H Eos % (Auto) 1.6 Baso % (Auto) 1.0 Absolute Neuts (auto) 4.0 Absolute Lymphs (auto) 1.89 Nucleated RBC % 0 Sodium 139 Potassium 3.4 L Chloride 107 Carbon Dioxide 29.0 Anion Gap 3 L BUN 12 Creatinine 0.74 Estim Creat Clear Calc 68.94 Est GFR (MDRD) Af Amer 103 Est GFR (MDRD) Non-Af 85 BUN/Creatinine Ratio 16.2 Glucose 101 Lactic Acid 0.7 Calcium 9.1 Magnesium 2.4 Management Discussion w/another healthcare provider: Hospitalist Discharge Plan Dx/Rx/DC Orders Clinical Impression: Acute diverticulitis, Failure of outpatient treatment, Hypertension Disposition Disposition: [facility] What to do if you have Problems For any increased pain, shortness of breath, bleeding, nausea or vomiting, chestpain, or any unexpected problems, contact your Primary Care Provider. Call [facility] ([phone]) or report to the closest Emergency Room. Call 911 if necessary. 09/24/23 0434 <Electronically signed by Michael Lyman DO> Cosigner Signature (if applicable): CC: Dr. Hernandez Mosley MD ~ Signed [facility] Work Phone: 1(695) 580-919811-29-2023 Discharge summary Author Shabbir Birch [facility] June 21, 2023 1:47pm Note Date/Time June 21, 2023 1:42pm [facility] Medical Records Department [address] [place] [address] Instructions for Home/Discharge Instructions 06/21/23 1341 MR#: [id number] Acct: [id number] Name: JUDY REAGAN Rep #:[id number] : 1960 63 From: Shabbir Birch DO PCP: Dr. Hernandez Mosley MD Status:REG S DC Discharge Instructions Diet Discharge Diet: No restrictions Activity Weight Bearing Status: Weight bearing as tolerated Dressing / Incision Call your doctor if you observe: Shortness of breath and Chest pain Additional Dressing/Incision Instructions:: Ice and elevate lower extremities 2 weeks while not ambulating. Ambulation is encouraged. Weight bearing as tolerated. Use assistive devise for stability. Encourage FULL knee extension and flexion 1 time EVERY time you get up and down and MULTIPLE times per day. No showering until 72 hours after surgery. Begin showering postop day #3. Remove the dressing prior to shower and gently wash with warm water and antibacterial soap then pat dry and place abdominal pad (or plain gauze) and TEDhose over top. This is to be done daily. Do not submerge for 3 weeks. If not showering daily after the initial 72 hours then you must clean incision and change dressing daily. Do not allow animals near the incision area. Keep clean. Follow anti-coagulation recommendations as prescribed. Do not take any NSAIDs while on blood thinner. Do not take any additional narcotic pain medication other than what was prescribed on your surgery day without discussing with physician. Narcotic medication can be addictive. Do not drink alcohol while taking narcotics. Supplement narcotic prescription with acetaminophen 1000 mg 4 times a day. Start physical therapy. If you are not currently scheduled for physical therapy or you are unsure of appointment time please call office DANIEL to arrange. Call Dr. Birch with any concerns. Follow Up Care Please Follow Up With: Shabbir Birch DO When: 2 weeks Test Results: Test results from this visit will be discussed in further detail at your follow- up appointment, if applicable. Discharge Plan Admission Primary Reason for Your Visit: Revision left knee patellar arthroplasty Attending Provider: Shabbir Birch Primary Care Provider: Hernandez Mosley Chi Discharge Orders/Prescriptions Prescriptions: New acetaminophen [acetaminophen] 500 mg tablet 1,000 mg PO Q6H PRN Qty: 100 0RF cephalexin [cephalexin] 500 mg capsule 1,000 mg PO Q8 Qty: 4 0RF Rx Instructions: take 2 tabs at 9:00 pm and 2 tabs after 5 am when you wake up oxycodone 5 mg tablet 5 - 10 mg PO Q4H PRN (Reason: pain) 5 Days Qty: 40 0RF aspirin 81 mg capsule 81 mg PO BID Qty: 30 0RF Rx Instructions: To prevent blood clot Continued furosemide 20 mg tablet 20 mg PO DAILY venlafaxine 37.5 MG tablet 75 mg PO QHS Patient Comments: mood folic acid 1 MG tablet 1 mg PO DAILY@0800 Patient Comments: DAILY EXCEPT MONDAY amlodipine 5 MG tablet 2.5 mg PO QHS ropinirole 0.25 mg tablet 0.5 mg PO QHS Patient Comments: TAKE 2 TABLETS BY MOUTH ONCE DAILY AT BEDTIME FOR 90 DAYS pantoprazole 40 MG tablet,delayed release (DR/EC) 40 mg PO DAILY Patient Comments: acid reflux ramipril 10 MG capsule 10 mg PO BID Discontinued tramadol 50 mg tablet 50 mg PO DAILY PRN (Reason: pain) Referrals / Follow Up: Hernandez Mosley Chi, MD [Primary Care Provider] - Disposition Disposition (needs filled in before D/C Order can be placed): Home, Self Care 06/21/23 1347<Electronically signed by Shabbir Birch DO>Shabbir Birch DO CC: Dr. Hernandez Mosley MD ~ Signed [facility] Work Phone: 1([phone]) 463-611711-29-2023 Procedure [facility] 06-21-2023 History and physical note Author Shabbir Birch [facility] June 21, 2023 11:27am Note Date/Time June 21, 2023 11:27am [facility] Medical Records Department [address] [place] [address] History & Physical Exam 06/21/236 MR#: [id number] Acct: [id number] Name: JUDY REAGAN Rep #:[id number] : 1960 63 From: Shabbir Birch DO PCP: Dr. Hernandez Mosley MD Status:REG S DC Location: [place] [address] History and Physical Date of Admission: 06/21/23 [facility] [address] [place] [address] OFFICE VISIT Date of Service: 05/31/23 MR#: [id number] Acct: [id number] Name: JUDY REAGAN Rep #: [id number] : 1960 Provider: Dr. Shabbir Birch DO Age/Sex: 63/F Location: [facility] [place] Status: Signed Intake Vital Signs 04/21/2323:12 Height 5 ft 4 in Weight: 171 lb 8.314 oz BMI 29.4 BP 115/73 Respiration 16 Pulse 70 Temp 96.7 F L Temp Source Temporal Pulse Oximetry (%) 97 Intake Visit Reasons: LEFT KNEE Chief Complaint: left knee Accompanied by: Self Is patient in pain?: Yes Allergies adhesive tape Allergy (Severe, Verified 11/23/22 10:33) blistering bee venom protein (honey bee) Allergy (Verified 11/23/22 10:33) Swelling Medications venlafaxine 37.5 mg tablet 37.5 mg PO QHS depression 03/20/16 [History Confirmed 05/31/23] folic acid 1 mg tablet 1 mg PO DAILY@0800 supplement 10/25/17 [History Confirmed 05/31/23] amlodipine 5 mg tablet 2.5 mg PO QHS BP 01/03/18 [History Confirmed 05/31/23] pantoprazole 40 mg tablet,delayed release 40 mg PO DAILY GERD 08/09/22 [History Confirmed 05/31/23] ramipril 10 mg capsule 10 mg PO BID HEART 08/09/22 [History Confirmed 05/31/23] ropinirole 0.25 mg tablet 0.5 mg PO QHS RESTLESS LEGS 08/09/22 [History Confirmed 05/31/23] furosemide 20 mg tablet tablet PO 01/12/23 [History Confirmed 05/31/23] cyclobenzaprine 10 mg tablet 10 mg PO TID PRN Muscle Spasm #20 TABLETS 04/22/23 [Rx Confirmed 05/31/23] PFSH Medical History Alcohol use Anxiety Back pain Former smoker History of diverticulitis History of pain when walking Hx of peptic ulcer Hx of psoriatic arthritis Hypertension Osteoarthritis Physical exam, pre-employment Post-menopausal Restless legs Wears glasses Surgical History History of appendectomy History of section History of hysterectomy History of total right knee replacement Status post left partial knee replacement Family History Other Breast cancer CAD (coronary artery disease) Heart disease Hypertension Social History household members: spouse Smoking Status: Former smoker alcohol intake: current alcohol intake frequency: holidays/special occasions only substance use type: does not use what type of physical activity do you participate in: walking frequency: 1-2 times per week HPI LEFT KNEE Details: This documentation accurately reflects the service provided and the decisions made by me, Dr. Shabbir Birch, DO 05/31/23 0954. Part of today?s visit was documented by Dali Bazan, acting as scribe. JUDY REAGAN is a 63 year old F here today for left knee pain that she has been having for at least 6 months. She states that the left knee is catching and clicking and is painful and she feels at times that the knee wants to give out on her. Denies any past injury to the left knee. She does have a left partial knee replacement. She had this done around [address] Sai Casas through [facility]. She states that she had 2 arthroscopic left knee surgeries prior to partial knee. She has xrays in the system. She has pain over the ant/medial side of the left knee. She has tried knee bracing which causes increased knee pain. She has tried icing. 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 She has a right TKA which has been doing ok. Ortho Exam General General: Yes no acute distress Neurologic: Yes alert and Yes oriented x3 Psychologic: Yes reasonable and appropriate Right Knee Patella Translation: 2 Left Knee Skin/Wound: No ecchymosis, No erythema and No swelling Homans Sign: No Knee ROM: Yes ROM-Extension -20 to 0 and No ROM-Flexion 0-140 (120) Examination: No med jt line tenderness, No Lat jt line tenderness and No TTP PesAnserine Stability: NML: Anterior Drawer, NML: Posterior Drawer, NML: Valgus 30 and NML: Varus 30 Patella Translation: 2 Patella Grind: Yes KNEE: j-sign no joint effusion medial paramidline incision pain with medial adebayo without click reproducible click with mobilization of patella which is reproducing her pain and symptom she is concerned with Head: Normocephalic Atraumatic Chest: symmetrical rise, non-labored breathing, no audible wheeze Abdomen: no guarding, non-rigidI have examined the patient the following changesare noted:I have examined the patient the following changes are noted: Supplemental Info 05/31/2023 notch view left knee: Demonstrates bone spur formation most significantly lateral compartment there is a loose body in the central posteriorjoint recess there is mild medial compartment spurring 05/18/2023 x-ray left knee: Significant patella alto, status post patellofemoral arthroplasty, osteophyte formation seen posterior tibial plateau posterior femoral condyles, it appears their implants on the patella is seated medial on the patella leaving a bony rim on the lateral edge that appears to be articulating with the trochlear implant. The trochlear implant is cemented witha central screw which appears well fixed. Coding Level of Care Code Off vis,est,level 4 Diagnoses Internal derangement of left knee M23.92 Laterality: left History of arthroplasty of knee Z96.659 Assessment and Plan Assessment and Plan (1) Internal derangement of knee joint: Status: Acute Qualifiers: Laterality: left Qualified Code(s): M23.92 - Unspecified internal derangement of left knee (2) History of arthroplasty of knee: Status: Acute Orders: Orders Knee 1 or 2 Views Today M25.562 - Pain in left knee Plan Obtained X-rays of patient's left knee. Personally reviewed x-rays. There is no obvious fracture, dislocation, or lucency noted. Patient educated that her hardware is intact and she has mild medial/lat compartment OA. Educated that there is a area of her patella that is not covered by the implant and this part is rubbing and causing the pain. Educated that she also has patella miguel and when she is engaging with extension this can also cause some pain under the patella. Educated that her treatment options are left knee steroid injection or left knee arthroscopic chondroplasty of the patella which would be the least invasive or left knee open revision of the patellar component or left knee revision to TKA. Reviewed the pre-operative plans with the patient. Risks and benefits of the procedure were fully explained, including but not limited to infection, neurovascular injury, continued pain, arthritis, stiffness, need for further surgery, re-injury, DVT, PE, general risks of anesthesia, and loss of limb or life. The patient understands all the risks and does wish to proceed with written consent for open left knee revision of the patellar component possible lateral release. Will attempt to get the patient in for surgery before the end of the year. She will need PT after surgery and should plan on taking about 2 months off. Will need to find the company that Dr. Casas used on the left knee patellofemoral arthroplasty likely [employer]. Follow up 2 weeks post op or sooner if pain, swelling, numbness or associated symptoms, or concerns develop. All questions answered. Patient in agreement of plan. Plan Details Goals & Barriers: Goals Decrease pain Decrease spasm Improve ROM 05/31/23 6974 <Electronically signed by Shabbir Birch DO> Date Shabbir Birch DO Cosignhadley Signature: Date (if applicable) CC: ~ I have examined the patient the following changes are noted: After further review and discussion with the patient we discussed the possibility of not removing the patellar component if not necessary. We may just excise the lateral portion of the patella if it is small enough. Patient is okay with thiswe will decide intraoperatively how to proceed. 06/21/23 1127 <Electronically signed by Shabbir Birch DO> Cosigner Signature (if applicable): CC: Dr. Shabbir Birch DO; Dr. Hernandez Mosley MD~ Signed [facility] Work Phone: [phone] Discharge summary Author Eder Lamas [facility] April 22, 2023 12:43am Note Date/Time April 21, 2023 11:24pm [facility] Medical Records Department [address] [facility] [place] [address] Emergency Department Summary 04/21/23 MR#: [id number] Acct: [id number] Name: JUDY REAGAN Rep #:[id number] : 1960 63 From: Eedr Vieira PCP: Dr. Hernandez Mosley MD Status:REG E R Location: ED HPI HPI - Fall History of Present Illness Chief Complaint: Fall Informant: patient Narrative Narrative: Mechanical fall left hip left shoulder pain 2 hours prior to arrival. Slipped on wood floor landing hip and left shoulder. No head injuries. No head tachycardia fragments. Status post lumbar fusion this past September. Denies any increasing back pain. Able to ambulate however has pain on the lateral aspect the hip. She took home tramadol prior to arrival. Denies any pain in the groin. Status post left hip injection by her spine surgeon 2 days ago. PFSH PFS Medical History Alcohol use Anxiety Back pain Former smoker History of diverticulitis History of pain when walking Hx of peptic ulcer Hx of psoriatic arthritis Hypertension Osteoarthritis Physical exam, pre-employment Post-menopausal Restless legs Wears glasses Home Medications venlafaxine 37.5 mg tablet 37.5 mg PO QHS depression 03/20/16 [History Last Taken 10/10/22] folic acid 1 mg tablet 1 mg PO DAILY@0800 supplement 10/25/17 [History Last Taken 09/11/22] amlodipine 5 mg tablet 2.5 mg PO QHS BP 01/03/18 [History Last Taken 10/10/22] pantoprazole 40 mg tablet,delayed release 40 mg PO DAILY GERD 08/09/22 [History Last Taken 10/11/22] ramipril 10 mg capsule 10 mg PO BID HEART 08/09/22 [History Last Taken 10/11/22] ropinirole 0.25 mg tablet 0.5 mg PO QHS RESTLESS LEGS 08/09/22 [History Last Taken 10/10/22] furosemide 20 mg tablet tablet PO 01/12/23 [History Last Taken Unknown] cyclobenzaprine 10 mg tablet 10 mg PO TID PRN Muscle Spasm #20 TABLETS 04/22/23 [Rx Last Taken Unknown] Allergy/AdvReac Type Severity Reaction Status Date / Time adhesive tape Allergy Severe blistering Verified 11/23/22 10:33 bee venom protein (honey bee) Allergy Swelling Verified 11/23/22 10:33 Family History Other Breast cancer CAD (coronary artery disease) Heart disease Hypertension Surgical History History of appendectomy History of section History of hysterectomy History of total right knee replacement Status post left partial knee replacement Social History household members: spouse Smoking Status: Former smoker alcohol intake: current alcohol intake frequency: holidays/special occasions only substance use type: does not use what type of physical activity do you participate in: walking frequency: 1-2 times per week ROS ROS ED Constitutional Constitutional ED: Denies chills, fever(s) or sweats Eyes Eyes: Denies change in vision ENT ENT ED: Denies dysphagia or sore throat Cardiovascular Cardiovascular: Denies chest pain, leg edema, palpitations or racing heartbeat Respiratory/Chest Respiratory/Chest: Denies cough, dyspnea or dyspnea on exertion Gastrointestinal Gastrointestinal: Denies abdominal pain, diarrhea, nausea or vomiting Genitourinary Genitourinary ED: Denies dysuria, hematuria or urinary frequency Musculoskeletal Musculoskeletal: Reports extremity pain and other Details: Left shoulder and hippain ; Denies back pain or neck pain Integumentary Denies rash or wounds Neurologic Neurologic: Denies headache(s), paresthesias or weakness EXAM Physical Exam Const Vital Signs: 04/21/23 23:12 04/21/23 23:16 04/22/23 00:38 Temperature 96.7 F L Temperature Source Temporal Pulse Rate 70 Respiratory Rate 16 116 H Respiratory Effort Normal Blood Pressure 115/73 Blood Pressure Mean 87 Pulse Ox 97 Oxygen Delivery Method Room Air Positive well nourished and well developed Constitutional Narrative: Nontoxic uncomfortable General Appearance ED: well developed HEENT Reports moist mucous membranes normocephalic and atraumatic Eyes PERRL, EOMs intact bilaterally and conjunctivae normal General Eye ED: Yes normal appearance of both eyes Neck no lymphadenopathy and supple General: Negative for tenderness Chest Wall inspection of chest normal and palpation of chest normal Chest: Negative for tenderness Resp normal respiratory effort and normal air movement Resp Narrative: Symmetric breath sounds Effort and Inspection: symmetric chest movement; Negative for respiratory distress Cardio regular rate, regular rhythm and no murmurs Peripheral Pulses: pulses 2+ throughout GI normal to inspection, nondistended, normoactive bowel sounds and non-tender Palpation: Negative for guarding or rebound tenderness present Back/Spine no CVA tenderness and no thoracic nor lumbar tenderness Extremity Extremity Narrative: Right upper extremity full range of motion. Left upper extremity full range of motion, no deformities there is no clavicle tenderness there is mild tenderness of the proximal shoulder. No humerus or elbow tenderness. Skin intact. Right lower extremity: Full range of motion negative logroll. Nontender. Pulseintact distally. Left lower extremity. Negative logroll no shortening or deformities. However is tender palpation along the iliac crest mild pain at the lateral greater trochanteric. No mid thigh or knee tenderness. Pulses intact distally. General Extremety ED: Negative for edema or tenderness General Extremity: Negative for edema Neuro oriented x3 and no sensory deficits noted Sensorium / Orientation: awake and alert Skin no rashes or lesions noted and no wounds MDM MDM MDM Narrative Medical decision making narrative: Interventions / MDM: Differential diagnosis: Contusion Diagnosis considered but do not suspect: Fractures however x-ray negative My EKG interpretation: N/A Imaging independently reviewed and interpreted by myself: Three-view x-ray left hip and pelvis: No fracture or dislocation. 3 view left shoulder x-ray: No fracture or dislocation External documents reviewed: N/A Test considered but not ordered:N/A ED course: Patient mechanical fall pain right hip more iliac crest region. Leftshoulder pain. No deformities. IM morphine ordered for pain control x-ray lefthip and shoulder ordered for further evaluation. Results of imaging is negative for any fracture or dislocation. Reevaluation pain was improving. She was ambulated is able to weight-bear just feels more stiff. She has been on muscle relaxers in the past. Meds to bed with cyclobenzaprine to use as needed. She has tramadol at home to use. Outpatient follow-up. All questions were answered. Re-evaluation: stable Disposition discussed with patient/family/significant other: Patient Case discussed with consulting clinician: N/A This note was generated with [employer] dictation software. It may contain incorrectwords, spelling, and punctuation that were not noted in checking the note beforesigning. Radiography Diagnostic Testing: Clinical Impression(s) from Imaging Studies Hip/Pelvis X-Ray 04/21/23 23:20 IMPRESSION: No acute findings. Electronically Signed: Obey Lozano DO at 23:46 EDT , Shoulder X-Ray 04/21/23 23:20 IMPRESSION: Negative left shoulder x-rays. Electronically Signed: Juliette Mcdonald MD at 0:11 EDT , Discharge Plan Triage Chief Complaint: Fall ED Provider: Eder Lamas Dx/Rx/DC Orders Clinical Impression: Fall, Contusion of hip, left, Contusion of left shoulder Instructions: ED Hip Contusion, ED Shoulder Contusion Prescriptions: New cyclobenzaprine [cyclobenzaprine] 10 mg tablet 10 mg PO TID PRN (Reason: Muscle Spasm) Qty: 20 0RF No Action furosemide 20 mg tablet PO venlafaxine 37.5 MG tablet 37.5 mg PO QHS Patient Comments: mood folic acid 1 MG tablet 1 mg PO DAILY@0800 Patient Comments: DAILY EXCEPT MONDAY amlodipine 5 MG tablet 2.5 mg PO QHS ropinirole 0.25 mg tablet 0.5 mg PO QHS Patient Comments: TAKE 2 TABLETS BY MOUTH ONCE DAILY AT BEDTIME FOR 90 DAYS pantoprazole 40 MG tablet,delayed release (DR/EC) 40 mg PO DAILY Patient Comments: acid reflux ramipril 10 MG capsule 10 mg PO BID Primary Care Provider: Hernandez Mosley Chi Referrals: Hernandez Mosley Chi, MD [Primary Care Provider] - 1 Week if not improving Activity Restrictions/Additional Instructions: Left shoulder and left hip x-ray negative. Continue your tramadol at home. Muscle relaxer as needed. Follow-up with your doctor. Disposition Disposition: Home, Self Care What to do if you have Problems For any increased pain, shortness of breath, bleeding, nausea or vomiting, chestpain, or any unexpected problems, contact your Primary Care Provider. Call [facility] ([phone]) or report to the closest Emergency Room. Call 911 if necessary. 04/22/2342 <Electronically signed by Eder Vieira> Cosigner Signature (if applicable): CC: Dr. Hernandez Mosley MD ~ Signed [facility] Work Phone: 1(213) 839-352503-25-[address] Hernández [facility] October 15, 2022 12:37pm Note Date/Time October 15, 2022 12: 37pm [facility] Medical Records Department [address] [place] [id number] Progress Note 10/15/22 1234 MR#: [id number] Acct: [id number] Name: JUDY REAGAN Rep #:[id number] : 1960 62 From: Lydia Hernández MD PCP: Dr. Hernandez Mosley MD Status:ADM I N [place] [facility] [place] Subjective Subjective Patient seen and examined. She felt well today. Pain was fairly well controlled. She had an uneventful night and review of symptoms otherwise negative. She has remained hemodynamically stable. Objective Data Objective Data Vital Signs: Vital Signs Temp Pulse Resp BP Pulse Ox O2 Del Method O2 Flow Rate 98.3 F 77 18 123/70 H 95 Room Air 2 10/15/22 09:27 10/15/22 09:27 10/15/22 09:27 10/15/22 09:27 10/15/22 09:27 10/15/22 09:27 10/11/22 20:21 Oxygen Flow Rate (L/min) 2 Oxygen Delivery Method Room Air Weight: 160 lb Body Mass Index (BMI) 27.4 Intake & Output: Intake and Output for Last 24 Hours 10/13/22 10/14/22 10/15/22 23:59 23:59 23:59 Intake Total 300 / 300 Output Total 750 / 750 Balance -450 / -450 Lab / Micro Data Result Diagrams: 10/14/22 08:44 10/14/22 08:44 Micro: Microbiology 10/13/22 04:30 Urine, Clean Catch Urine Culture - Final Pseudomonas aeruginosa Physical Exam Const alert and oriented x3 General Appearance: cooperative HEENT normocephalic, head/scalp atraumatic and moist oral mucous membranes Mouth: dry mucous membranes Eyes PERRL and EOMs intact bilaterally Neck no lymphadenopathy and supple Lymph Lymphatic: no lymphadenopathy noted and no lymphedema noted Resp normal respiratory effort, normal air movement and clear to auscultation bilaterally Cardio regular rate, regular rhythm, S1 normal heart sound, S2 normal heart sound and no murmurs GI normal to inspection, nondistended, normoactive bowel sounds, soft to palpation and non-tender GI Narrative: intact dressing over lower abdomen Extremity normal capillary refill, no clubbing, cyanosis or edema and no calf tenderness Skin Skin Narrative: mild, papular erythematous rash in lower abdomen, just above the dressing over the surgical site on lower abdomen has largely resolved. erythema and differential warmth adjacent to the intact surgical dressing at site of surgery on lower back is improving. No tenderness Neuro CN's II-XII intact bilaterally, no focal motor deficits, no sensory deficits noted and deep tendon reflexes 2+ bilaterally Motor Exam: strength 5/5 throughout Psych thought process normal and cooperative Appearance: appropriate Assessment & Plan Assessment/Plan (1) Essential hypertension: PLAN: Plan #Degenerative disc disease s/p anterior lumbar fusion of L4-5 * today is POD 3 * PT/OT on board * pain meds as per primary team * incentive spirometry * fall precautions * #Fever * fever has resolved. * * #Hypertension: on norvasc and ramipril #GERD: on PPI #ANxiety and depression * on Effexor * #Alcohol use disorder: on folic acid. Not in active withdrawal DVT prophylaxis: SCDs. As per primary team. Disposition: stable for dc from hospitalist standpoint Charges/Coding Visit Charges Inpatient E&M: 08716 Subs Hosp L2 10/15/22 1237 <Electronically signed by Lydia Hernández MD> Lydia Hernández MD Cosigner Signature (if applicable): CC: ~ Signed [facility] Work Phone: [phone] 121-151403-24-[address] Hernández [facility] October 14, 2022 5:21pm Note Date/Time October 14, 2022 2:1 7pm [facility] Medical Records Department [address] [place] [address] Progress Note 10/14/22 1414 MR#: [id number] Acct: [id number] Name: JUDY REAGAN Rep #:[id number] : 1960 62 From: Lydia Hernández MD PCP: Dr. Hernandez Mosley MD Status:ADM I N Location: [place] [address] Subjective Subjective Patient seen and examined. Still complaining of pain in her lower back at surgical sites. She has been working with therapy and is able to ambulate with a walker. Review of systems otherwise negative. She has made hemodynamically stable. Objective Data Objective Data Vital Signs: Vital Signs Temp Pulse Resp BP Pulse Ox O2 Del Method O2 Flow Rate 98.5 F 79 14 137/94 H 97 Room Air 2 10/14/22 09:34 10/14/22 09:34 10/14/22 09:34 10/14/22 09:34 10/14/22 09:34 10/14/22 09:34 10/11/22 20:21 Oxygen Flow Rate (L/min) 2 Oxygen Delivery Method Room Air Weight: 160 lb Body Mass Index (BMI) 27.4 Intake & Output: Intake and Output for Last 24 Hours 10/12/22 10/13/22 10/14/22 23:59 23:59 23:59 Intake Total 1644.75 / 1644.75 300 / 300 Output Total 3650 / 3650 750 / 750 Balance -2004..450 / -450 Lab / Micro Data Result Diagrams: 10/14/22 08:44 10/14/22 08:44 Labs: Laboratory Results - last 24 hr 10/14/22 08:44: WBC 9.6, RBC 3.56 L, Hgb 10.7 L, Hct 34.1 L, MCV 95.8, MCH 30.1,MCHC 31.4 L, RDW Std Deviation 45.2 H, RDW Coeff of Caity 12.8, Plt Count 278, MPV10.0, Immature Gran % (Auto) 0.500, Neut % (Auto) 71.5 H, Lymph % (Auto) 15.4 L,[place] % (Auto) 10.3 H, Eos % (Auto) 1.9, Baso % (Auto) 0.4, Absolute Neuts (auto)6.9, Absolute Lymphs (auto) 1.48, Nucleated RBC % 0 10/14/22 08:44: Sodium 137, Potassium 3.4 L, Chloride 100, Carbon Dioxide 29.0, Anion Gap 8, BUN 5 L, Creatinine 0.60, Estim Creat Clear Calc 86.10, Est GFR (MDRD) Af Amer 131, Est GFR (MDRD) Non-Af 108, BUN/Creatinine Ratio 8.3 L, Glucose 145 H, Calcium 9.1 Micro: Microbiology 10/13/22 04:30 Urine, Clean Catch Urine Culture - Preliminary GNR Poss Pseudomonas sp Physical Exam Const alert and oriented x3 General Appearance: cooperative HEENT normocephalic, head/scalp atraumatic and moist oral mucous membranes Neck no lymphadenopathy and supple Lymph Lymphatic: no lymphadenopathy noted and no lymphedema noted Resp normal respiratory effort, normal air movement and clear to auscultation bilaterally Cardio regular rate, regular rhythm, S1 normal heart sound, S2 normal heart sound and no murmurs GI normal to inspection, nondistended, normoactive bowel sounds, soft to palpation and non-tender GI Narrative: mildly distended abdomen, intact dressing over lower abdomen Extremity normal capillary refill, no clubbing, cyanosis or edema and no calf tenderness Skin Skin Narrative: mild, papular erythematous rash in lower abdomen, just above the dressing over the surgical site on lower abdomen has largely resolved. erythema and differential warmth adjacent to the intact surgical dressing at site of surgery on lower back is improving Minimal tenderness. Neuro CN's II-XII intact bilaterally, no focal motor deficits, no sensory deficits noted and deep tendon reflexes 2+ bilaterally Motor Exam: strength 5/5 throughout Psych thought process normal and cooperative Appearance: appropriate Assessment & Plan Assessment/Plan (1) Essential hypertension: PLAN: Plan #Degenerative disc disease s/p anterior lumbar fusion of L4-5 * today is POD 2 * PT/OT on board * pain meds as per primary team * incentive spirometry * fall precautions * #Fever * fever has resolved. * CXR showed no acute cardiopulmonary process and urinalysis showed no evidence of UTI * will monitor * #Hypertension: on norvasc and ramipril #GERD: on PPI #ANxiety and depression * on Effexor * #Alcohol use disorder: on folic acid. Not in active withdrawal DVT prophylaxis: SCDs. As per primary team. Charges/Coding Visit Charges Inpatient E&M: 50439 Subs Hosp L2 10/14/22 1721 <Electronically signed by Lydia Hernández MD> Lydia Hernández MD Cosigner Signature (if applicable): CC: ~ Signed [facility] Work Phone: 1(406) 761-899203-23-[address] Damian [facility] October 13, 2022 4:56pm Note Date/Time October 13, 2022 4:5 6pm [facility] Medical Records Department [address] [place] [address] Progress Note - Orthopedic 10/13/22 1654 MR#: [id number] Acct: [id number] Name: JUDY REAGAN Rep #:[id number] : 1960 62 From: Reyes Farmer PCP: Dr. Hernandez Mosley MD Status:ADM I N Location: [place] [address] Objective Data Objective Data Judy was seen on rounds today around 1230. She is a little more pain for her back today than she was yesterday. In addition she has a strange rash on each side of the incision or at least the dressing but it does not itch. It is not swollen. It does not hurt. For now we will simply keep an eye on it. Neurologically she remains intact. Her leg pain is still completely gone. Her anterior dressing is likewise dry. Hopefully she will be feeling a bit better by tomorrow. She has bowel sounds now however we will still keep her on clear liquids until tomorrow at which time we will start feeding her. She may go hometomorrow depending on how she is feeling. Vital Signs: Vital Signs Temp Pulse Resp BP Pulse Ox O2 Del Method O2 Flow Rate 99.0 F 87 16 152/82 H 93 Room Air 2 10/13/22 13:37 10/13/22 13:37 10/13/22 13:37 10/13/22 13:37 10/13/22 13:37 10/13/22 13:37 10/11/22 20:21 Oxygen Flow Rate (L/min) 2 Oxygen Delivery Method Room Air Weight: 160 lb Body Mass Index (BMI) 27.4 Intake & Output: Intake and Output for Last 24 Hours 10/11/22 10/12/22 10/13/22 23:59 23:59 23:59 Intake Total 3474 / 3474 1644.75 / 1644.75 300 / 300 Output Total 1350 / 1350 3650 / 3650 750 / 750 Balance 2123 / 212 -2004.25 / -2005.25 -450 / -450 Lab / Micro Data Result Diagrams: 10/12/22 06:38 10/12/22 06:38 Labs: Laboratory Results - last 24 hr 10/13/22 01:06: COVID-19 ([facility]) Not Detected 10/13/22 04:30: Urine Color Yellow, Urine Clarity Clear, Urine pH 7.0, Ur Specific Kennedy 1.010, Urine Protein 15 H, Urine Glucose (UA) Normal, Urine Ketones 15 H, Urine Occult Blood Negative, Urine Nitrite Negative, Urine Bilirubin Negative, Urine Urobilinogen Normal, Ur Leukocyte Esterase Negative, Urine RBC 0 SEEN, Urine WBC 0-5 SEEN, Ur Squamous Epith Cells 0 SEEN, Urine Bacteria 0 SEEN, Urine Mucus 0 SEEN Radiography Diagnostic Testing: Radiology Impression Chest X-Ray 10/13/22 05:55 IMPRESSION: No acute findings in the chest. Electronically Signed: Villa Goetz MD at 6:19 EDT , 10/13/22 7609 <Electronically signed by Reyes Damian DO> Cosigner Signature (if applicable): CC: ~ Signed [facility] Work Phone: 1(170) 360-749303-23-[address] Hernández [facility] October 13, 2022 4:13pm Note Date/Time October 13, 2022 11: 42[facility] Medical Records Department [address] [place] [address] Progress Note 10/13/22 1136 MR#: [id number] Acct: [id number] Name: JUDY REAGAN Rep #:[id number] : 1960 62 From: Lydia Hernández MD PCP: Dr. Hernandez Mosley MD Status:ADM I N Location[place] [facility] [place]-0 Subjective Subjective Patient seen and examined. SHe complained of some back pain. She also had a fever overnight. She denied any chest pain, cough, shortness of breath, palpitations, abdominal pain, dizziness, nausea, vomiting or diarrhea. She had been told that the area around the surgical site in her lower back was red and warm. Review of systems is otherwise negative. She says she hasnt yet passed gasor had a bowel movement. Objective Data Objective Data Vital Signs: Vital Signs Temp Pulse Resp BP Pulse Ox O2 Del Method O2 Flow Rate 98.8 F 83 18 142/78 H 96 Room Air 2 10/13/22 05:47 10/13/22 05:47 10/13/22 04:10 10/13/22 05:47 10/13/22 08:39 10/13/22 04:10 10/11/22 20:21 Oxygen Flow Rate (L/min) 2 Oxygen Delivery Method Room Air Weight: 160 lb Body Mass Index (BMI) 27.4 Intake & Output: Intake and Output for Last 24 Hours 10/11/22 10/12/22 10/13/22 23:59 23:59 23:59 Intake Total 3474 / 3474 1644.75 / 1644.75 300 / 300 Output Total 1350 / 1350 3650 / 3650 Balance 2123 / 2123 - / 300 / 300 Lab / Micro Data Result Diagrams: 10/12/22 06:38 10/12/22 06:38 Labs: Laboratory Results - last 24 hr 10/13/22 01:06: COVID-19 ([facility]) Not Detected 10/13/22 04:30: Urine Color Yellow, Urine Clarity Clear, Urine pH 7.0, Ur Specific Kennedy 1.010, Urine Protein 15 H, Urine Glucose (UA) Normal, Urine Ketones 15 H, Urine Occult Blood Negative, Urine Nitrite Negative, Urine Bilirubin Negative, Urine Urobilinogen Normal, Ur Leukocyte Esterase Negative, Urine RBC 0 SEEN, Urine WBC 0-5 SEEN, Ur Squamous Epith Cells 0 SEEN, Urine Bacteria 0 SEEN, Urine Mucus 0 SEEN Radiography Diagnostic Testing: Radiology Impression Chest X-Ray 10/13/22 05:55 IMPRESSION: No acute findings in the chest. Electronically Signed: Villa Goetz MD at 6:19 EDT , Physical Exam Const alert and oriented x3 General Appearance: cooperative HEENT normocephalic, head/scalp atraumatic and moist oral mucous membranes Neck no lymphadenopathy and supple Lymph Lymphatic: no lymphadenopathy noted and no lymphedema noted Resp normal respiratory effort, normal air movement and clear to auscultation bilaterally Cardio regular rate, regular rhythm, S1 normal heart sound, S2 normal heart sound and no murmurs GI soft to palpation and non-tender GI Narrative: mildly distended abdomen, intact dressing over lower abdomen Extremity normal capillary refill, no clubbing, cyanosis or edema and no calf tenderness Skin Skin Narrative: mild, papular erythematous rash in lower abdomen, just above the dressing over the surgical site on lower abdomen has largely resolved. She does have erythema and differential warmth adjacent to the intact surgical dressing at site of surgery on lower back. Minimally tender to touch Neuro CN's II-XII intact bilaterally, no focal motor deficits and deep tendon reflexes2+ bilaterally Motor Exam: strength 5/5 throughout Psych thought process normal and cooperative Appearance: appropriate Assessment & Plan Assessment/Plan (1) Essential hypertension: PLAN: Plan #Degenerative disc disease s/p anterior lumbar fusion of L4-5 * today is POD 2 * PT/OT on board * pain meds as per primary team * incentive spirometry * fall precautions * #Fever * patient did develop a fever overnight * CXR showed no acute cardiopulmonary process and urinalysis showed no evidence of UTI * she does have erythema arouond the dressing on her lower back; this is concerning for cellulitis nad post op wound infection * surgical site will need to be evaluated by primary team; defer to primary team about starting antibiotics * #Hypertension: on norvasc and ramipril #GERD: on PPI #ANxiety and depression * on Effexor * #Alcohol use disorder: on folic acid. Not in active withdrawal DVT prophylaxis: SCDs. As per primary team. Charges/Coding Visit Charges Inpatient E&M: 43469 Subs Hosp L2 10/13/22 1613 <Electronically signed by Lydia Hernández MD> Lydia Hernández MD Cosigner Signature (if applicable): CC: ~ Signed [facility] Work Phone: [phone] Wolfe [facility] October 13, 2022 4:09am Note Date/Time October 13, 2022 4:0 9am [facility] Medical Records Department [address] [place] [address] Progress Note - Hospitalist 10/13/22407 MR#: [id number] Acct: [id number] Name: JUDY REAGAN Rep #:[id number] : 1960 62 From: Liza Wolfe MD PCP: Dr. Hernandez Mosley MD Status:ADM I N Location: [place] [address] Hospitalist Note Patient with fever overnight, improved with tylenol administration. COVID obtained, negative. Will request CXR this AM and UCx/UA to further assess. 10/13/22 0409 <Electronically signed by Liza Wolfe MD> Cosigner Signature (if applicable): CC: ~ Signed [facility] Work Phone: [phone] Hernández [facility] October 12, 2022 4:17pm Note Date/Time October 12, 2022 1:1 3pm [facility] Medical Records Department [address] [place] [address] Progress Note 10/12/22 1306 MR#: [id number] Acct: [id number] Name: JUDY REAGAN Rep #:[id number] : 1960 62 From: Lydia Hernández MD PCP: Dr. Hernandez Mosley MD Status:ADM I N Location: [place]3 KW278-3 Subjective Subjective Patient seen and examined. She complained of back pain; she was working with physical therapy. She denied any cough, chest pain, palpitations, dizziness, nausea, vomiting or diarrhea. Review of systems is otherwise negative. Objective Data Objective Data Vital Signs: Vital Signs Temp Pulse Resp BP Pulse Ox O2 Del Method O2 Flow Rate 98.6 F 73 18 138/85 H 98 Room Air 2 10/12/22 11:32 10/12/22 11:32 10/12/22 11:32 10/12/22 11:32 10/12/22 11:33 10/12/22 11:33 10/11/22 20:21 Oxygen Flow Rate (L/min) 2 Oxygen Delivery Method Room Air Weight: 160 lb Body Mass Index (BMI) 27.4 Intake & Output: Intake and Output for Last 24 Hours 10/10/22 10/11/22 10/12/22 23:59 23:59 23:59 Intake Total 3474 / 3474 650 / 650 Output Total 1350 / 1350 2550 / 2550 Balance 2124 / 2124 -1900 / -1900 Lab / Micro Data Result Diagrams: 10/12/22 06:38 10/12/22 06:38 Labs: Laboratory Results - last 24 hr 10/11/22 09:50: POC Glucose 117 H 10/11/22 15:29: POC Glucose 141 H 10/12/22 06:38: WBC 9.6, RBC 3.49 L, Hgb 10.5 L, Hct 33.3 L, MCV 95.4, MCH 30.1,MCHC 31.5 L, RDW Std Deviation 45.0 H, RDW Coeff of Caity 12.9, Plt Count 240, MPV10.4, Immature Gran % (Auto) 0.600, Neut % (Auto) 71.2 H, Lymph % (Auto) 15.2 L,[place] % (Auto) 12.8 H, Eos % (Auto) 0.0, Baso % (Auto) 0.2, Absolute Neuts (auto)6.8, Absolute Lymphs (auto) 1.46, Nucleated RBC % 0 10/12/22 06:38: Sodium 135 L, Potassium 3.5, Chloride 100, Carbon Dioxide 29.0, Anion Gap 6, BUN 6 L, Creatinine 0.65, Estim Creat Clear Calc 79.48, Est GFR (MDRD) Af Amer 119, Est GFR (MDRD) Non-Af 99, BUN/Creatinine Ratio 9.2 L, Glucose 96, Calcium 8.3 L Radiography Diagnostic Testing: Radiology Impression Spine X-Ray 10/11/22 11:44 IMPRESSION: Intraoperative lateral image demonstrates L4-5 fusion detailed above. Electronically Signed: Marshall Roldan MD, JOYA at 14:44 EDT Reading Location ID and State: [facility] / [place] Tel , Service support , Physical Exam Const alert and oriented x3 HEENT normocephalic, head/scalp atraumatic and moist oral mucous membranes Neck supple Lymph Lymphatic: no lymphadenopathy noted and no lymphedema noted Resp normal respiratory effort, normal air movement and clear to auscultation bilaterally Cardio regular rate, regular rhythm, S1 normal heart sound, S2 normal heart sound and no murmurs GI normal to inspection, nondistended, normoactive bowel sounds, soft to palpation and non-tender Extremity normal capillary refill, no clubbing, cyanosis or edema and no calf tenderness Skin Skin Narrative: mild, papular erythematous rash in lower abdomen, just above the dressing over the surgical site on lower abdomen. Neuro CN's II-XII intact bilaterally, no focal motor deficits and deep tendon reflexes2+ bilaterally Motor Exam: strength 5/5 throughout Psych thought process normal and cooperative Appearance: appropriate Assessment & Plan Assessment/Plan (1) Essential hypertension: PLAN: Plan #Degenerative disc disease s/p anterior lumbar fusion of L4-5 * today is POD 1 * PT/OT on board * pain meds as per primary team * incentive spirometry * fall precautions * * #Hypertension: on norvasc and ramipril #GERD: on PPI #ANxiety and depression * on Effexor * #Alcohol use disorder: on folic acid. Not in active withdrawal DVT prophylaxis: SCDs. As per primary team. Charges/Coding Visit Charges Inpatient E&M: 37072 Subs Hosp L2 10/12/22 1618 <Electronically signed by Lydia Hernández MD> Lydia Hernández MD Cosigner Signature (if applicable): CC: ~ Signed [facility] Work Phone: 1(585) 799-310403-21-[address] Keller [facility] October 11, 2022 7:33pm Note Date/Time October 11, 2022 7:2 3pm [facility] Medical Records Department [address] [place] [address] Progress Note - Hospitalist 10/11/221915 MR#: [id number] Acct: [id number] Name: JUDY REAGAN Rep #:[id number] : 1960 62 From: Jesse lobo MD PCP: Dr. Hernandez Mosley MD Status:ADM I N Location: [address] Reason for Visit Reason for Visit: Diagnoses Encounter for other preprocedural examination (10/11/22) Subjective Subjective 62-year-old female presents to the hospital for an elective anterior fusion of her left L4 and L5 secondary to advanced degenerative disc disease. She states that her medical history is otherwise stable. She denies any shortness of breath or chest pain or difficulty ambulating prior to surgery. Surgery appearsto have gone well and medicine was consulted for medical management. Objective Data Objective Data Vital Signs: Vital Signs Temp Pulse Resp BP Pulse Ox O2 Del Method O2 Flow Rate 97.9 F 94 18 132/74 H 97 Nasal Cannula 3 10/11/22 18:10 10/11/22 18:10 10/11/22 18:10 10/11/22 18:10 10/11/22 18:10 10/11/22 18:14 10/11/22 18:14 Oxygen Flow Rate (L/min) 3 Oxygen Delivery Method Nasal Cannula Weight: 160 lb Body Mass Index (BMI) 27.4 Intake & Output: Intake and Output for Last 24 Hours 10/10/22 10/11/22 10/12/22 03:59 03:59 03:59 Intake Total 2264 / 2264 Output Total 850 / 850 Balance 1414 / 1414 Lab / Micro Data Labs: Laboratory Results - last 24 hr 10/11/22 06:22: POC Glucose 209 H 10/11/22 09:50: POC Glucose 117 H 10/11/22 15:29: POC Glucose 141 H Radiography Diagnostic Testing: Radiology Impression Spine X-Ray 10/11/22 06:30 IMPRESSION: The metallic marker is seen along the anterior aspect of the L4-L5 disc space level. Electronically Signed: Getachew Wayne MD at 12:46 EDT , Spine X-Ray 10/11/22 10:13 IMPRESSION: Status post anterior fusion at the L4-L5 level. Electronically Signed: Getachew Wayne MD at 12:45 EDT , Spine X-Ray 10/11/22 11:44 IMPRESSION: Intraoperative lateral image demonstrates L4-5 fusion detailed above. Electronically Signed: Marshall Roldan MD, JOYA at 14:44 EDT , Physical Exam Narrative General: Alert, Oriented x3, Cooperative, No apparent distress, still drowsy from anesthesia HEENT: Atraumatic, PERRLA, EOMI, Normocephalic Oral: Moist Mucosa Neck: Supple, No JVD Lungs: Clear to auscultation, Normal air movement, No rhonchi, No wheeze, No rales Cardiovascular: Regular rate, Regular Rhythm, Normal S1, Normal S2, No murmurs Abdomen: Soft, Non Tender, Non-Distended, No Hepato-splenomegaly Extremities: No edema, Capillary Refill Less than 3 Seconds Skin: Dressing intact Musculoskeletal: No Tenderness to Palpation of Joints or Extremities Neurological: Cranial nerves II-XII grossly intact, Motor Exam 5/5 strength throughout, Sensory exam intact to light touch and pain Psych/Mental Status: Normal affect, Appropriate Assessment & Plan Assessment/Plan (1) DDD (degenerative disc disease), lumbar: PLAN: Plan 1. Degenerative disc disease status post anterior lumbar fusion of L4-5 on 10/11/2022 ? Pain management per primary ? PT and OT ? Can resume ropinirole 2. HTN ? Can resume her home Norvasc but will hold her ramipril pending creatinine in the morning, if the creatinine is normal can restart the ramipril tomorrow evening ? Blood sugar is stable next 3. GERD ? Stable ? Continue with PPI 4. Anxiety/depression/alcohol use ? Can resume her home Effexor ? Can place her on a CIWA scale to monitor and if necessary start on medicationsfor her history of alcohol use ? We will continue with her folic acid DVT: SCDs Charges/Coding Visit Charges Inpatient E&M: 71952 Subs Hosp L3 10/11/221932 <Electronically signed by Jesse Keller MD> Cosigner Signature (if applicable): CC: ~ Signed [facility] Work Phone: 1(794) 652-754703-21-2023 Procedure [facility] 10-11-2022 Procedure [facility]03-21-2023 Procedure note [facility]03-20-2023 History and physical note Author Dr. Damian [facility] October 10, 2022 3:22pm Note Date/Time October 10, 2022 10: 36am [facility] Medical Records Department [address] [place] [address] History & Physical Exam 10/10/22 1035 MR#: [id number] Acct: [id number] Name: JUDY REAGAN Rep #:[id number] : 1960 62 From: Reyes Farmer PCP: Dr. Hernandez Mosley MD Status:PRE I N Location: [facility] 10/10/221521 <Electronically signed by Reyes Damian DO> Cosigner Signature (if applicable): CC: Dr. Reyes Damian DO; Dr. Hernandez Mosley MD~ Signed [facility] Work Phone: 1(401) 917-166903-20-2023 History and physical note Author Dr. Damian [facility] October 10, 2022 10:35am Note Date/Time October 10, 2022 10: 35am [facility] Medical Records Department [address] [place] [address] History & Physical Exam 10/10/22 1034 MR#: [id number] Acct: [id number] Name: JUDY REAGAN Rep #:[id number] : 1960 62 From: Reyes Farmer PCP: Dr. Hernandez Mosley MD Status:PRE I N Location: [facility] History and Physical Addendum MR#: [id number] Acct: [id number] Name:? JUDY REAGAN Rep #: [id number] : 1960 ? ? Provider: Dr. Reyes Damian DO Age/Sex:? 62/F ? ? [place] [facility] Status: Signed Intake Vital Signs ? 12/23/2207:21 06/24/2210:35 Height 5 ft 4 in 5 ft 4 in Intake Visit Reasons:?LUMBER SPINE Is patient in pain?: Yes Pain scale (1-10): 7 Allergies adhesive tape Allergy (Severe, Verified 06/24/22 10:35) blisteringbee venom protein (honey bee) Allergy (Verified 06/24/22 10:35) Swelling Medications venlafaxine 37.5 mg tablet 37.5 mg PO QHS depression 03/20/16 [History Confirmed 06/24/22] pantoprazole 40 mg tablet,delayed release 40 mg PO DAILY #60 TABLETS 03/23/16 [Rx Confirmed 06/24/22] folic acid 1 mg tablet 1 mg PO DAILY@0800 supplement 10/25/17 [History Confirmed 06/24/22] methotrexate sodium 2.5 mg tablet 12.5 mg PO ULRICH psoriatic arthritis 10/25/17 [History Confirmed 06/24/22] ramipril 10 mg capsule 10 mg PO BID #0 caps 10/28/17 [Rx Confirmed 06/24/22] amlodipine 5 mg tablet 2.5 mg PO DAILY 01/03/18 [History Confirmed 06/24/22] tramadol 50 mg tablet 50 mg PO BID PRN BACK PAIN 11/29/18 [History Confirmed 06/24/22] ondansetron 4 mg disintegrating tablet 4 mg PO Q8H PRN PRN Nausea #6 tabs 12/22/21 [Rx Confirmed 06/24/22] PFSH Medical History?(Updated 06/24/22 @ 11:[address] Reyes Damian, DO) Osteoarthritis Physical exam, pre-employment Surgical History? History of appendectomy History of section History of hysterectomy History of total right knee replacement Status post left partial knee replacement Family History? Other Breast cancer CAD (coronary artery disease) Heart disease Hypertension Social History? household members:? spouse Smoking Status:? Former smoker alcohol intake:? current alcohol intake frequency: holidays/special occasions only substance use type:? does not use what type of physical activity do you participate in:? walking frequency:? 1-2 times per week HPI LUMBER SPINE Details: Parts of this documentation were recorded by a scribe, this documentation accurately reflects the service provided and the decisions made by me, Dr. Reyes Damian, JUDY REAGAN is a 62 year old F here today for lower back pain that radiates into her hips and down her right leg. States that she does have some tingling that goes down the side of her right leg. States that she has had back pain for 5 years. She was referred by Dr. Quiñonez and has been seeing him for 4 years and has an MRI in the system which was done on 06/09/22. States that walking increases her pain and that she avoids lifting things because that also increases her pain. States that with Dr. Quiñonez she has gotten injections and ablations done which were helping in the beginning and were helping for 6-12 months. States that theses last few months she has had an ablations and a caudalinjection but they weren't very helpful. ? Judy is a delightful young lady 62 years old that has chief complaint of low backpain.? It also radiates out into the buttocks on both sides.? She has had it about 5 or 6 years.? She has been seeing Dr. Quiñonez as mentioned above for about 4 years.? Activity increases her pain lifting increases her pain working in her garden increases her pain.? When she for started seeing Dr. Quiñonez she got good relief for a long time that is months however now it is reached diminishingreturns.? She works 2 or 3 times a week about 8 hours a day but in doing so she has to stand and walk the whole time.? This also aggravates her back. On examination she has excellent motor strength of all the major muscle groups of both lower extremities.? She has physiologic patella and Achilles reflexes bilaterally.? She has no long tract signs.? Clonus is absent Babinski's are downgoing.? She can easily stand on her toes and stand on her heels without difficulty.? She has pain with both extension and flexion of her lumbar spine. Plain x-rays taken in the office demonstrate that she has a severely decreased disc space at L4-5.? The MRI scan that was done recently demonstrates the same thing however there is not any significant pressure on any nerve root that I cantell.? She has no true foraminal stenosis. We discussed treatment possibilities.? She is already tried therapy of course and that did not help her as expected.? We talked about surgical intervention.? I explained to her that it would be elective on her part.? It would require 360 degree fusion at the L4-5 level.? I explained to her how it would be done and the rationale behind it.? She will go home and think about it and discuss it with her and family.? I will see her on a as needed basis. Coding Level of Care Code Off vis,new,level 3 Diagnoses DDD (degenerative disc disease), lumbar? M51.36 10/10/22 1035 <Electronically signed by Reyes Damian DO> Cosigner Signature (if applicable): CC: Dr. Reyes Damian DO; Dr. Hernandez Mosley MD~ Signed [facility] Work Phone: 1(489) 631-983901-30-2023 Miscellaneous Notes* Telephone Encounter - Marzena Elise RN - 08/22/2022 2:30 PM EST Patient left voicemail 08/22/2022 at 0805 Patient contacted at this time Patient requesting Dr. Bower's office to fax medical records to [facility] Medicare Patient's MRI is currently being denied and patient filed an expedited appeal Patient requesting records to be faxed to [phone] Case# [id number] Records faxed at this time per patient's request documented in this encounterBerger Hospital10-27-2022 Miscellaneous Notes* Telephone Encounter - Rosa Greenberg RN - 05/19/2022 11:29 AM EDT Patient notified of surgical date. Follow up scheduled. Surgical confirmation letter sent to patient via PROnoise message. * Telephone Encounter - Mavis Russell LPN - 05/19/2022 11:22 AM EDT Patient called. Verified name and date of . Transferred to nurseKitty, in podiatry. Mavis Russell LPN * Telephone Encounter - Rosa Greenberg RN - 05/19/2022 11:10 AM EDT Left patient Vm to contact office and give surgical date. Patient scheduled for XR guided injectionof R 1st MTPJ on 06/06/22 at [facility]. Patient will need a month follow up post injection scheduled when she returns call. documented in this encounterBerger Hospital10-26-2022 NoteHNO ID: [id number] Author: Jonny Nieto RT(R) Service: ? Author Type: Technologist Type: Progress [...] PERIPHERAL IV DATA: Not applicable SIGNED BY: Jonny Nieto RT(R) May 18, 2022 5:07 [facility]10-26-2022 NoteHNO ID: [id number] Author: Yumiko [place] Service: ? Author Type: [...] (without mention of hemorrhage) Essential hypertension, benign 1998 Generalized anxiety disorder Due to menopausal sx's Current Outpatient Medications Medication Sig traMADol (ULTRAM) 50 mg tablet Take 50 mg by mouth twice daily as needed. Currently not taking while on [place] for pain amLODIPine (NORVASC) 5 mg tablet [...] right knee PAST SURGICAL HISTORY OF Left 2013 partial knee replacement TOTAL ABDOMINAL HYSTERECT W/WO [...] < 5 seconds to (more content not included)...[facility]10-26-2022 NoteHNO ID: [id number] Author: Rosa Greenberg RN Service: ? Author Type: ? Type: [...] [employer]oka shoes and states they have also helped.[facility]10-26-2022 History of Present illness Narrative * Jonny Nieto RT(R) - 05/18/2022 5:00 PM EDT Radiology Service Progress Note PATIENT NAME: Judy Reagan DATE OF SERVICE: May 18, 2022 TIME: 5:07 PM PATIENT IDENTITY VERIFICATION COMPLETED USING TWO (2) IDENTIFIERS: Name and Date of confirmedby patient verbally. FALL SCREENING: Has the patient had 2 falls in the last year or 1 fall with injury or currently using an Ambulatory Assistive Device (Walker, Cane, Wheelchair, Crutches, etc.)? No PATIENT GENDER DATA: Female. status: : No status: NO. PATIENT RELEVANT IMPLANT DATA REVIEWED: Not Applicable RADIOLOGY DEPARTMENT: General X-ray: Exam(s) Completed: Lower Extremity X- Ray(s): Foot, Right and Wt. Bearing PERIPHERAL IV DATA: Not applicable SIGNED BY: RT Jayro(R) May 18, 2022 5:07 PM documented in this encounterBerger Hospital10-26-2022 History of Present illness Narrative* Yumiko [place] - 05/18/2022 4:43 PM EDT Images from the original note were not [...] but she recalls getting the injection was verypainful and she recalls difficulty getting the needle [...] (without mention of hemorrhage) Essential hypertension, benign 1998 Generalized anxiety disorder Due to menopausal sx's Current Outpatient Medications Medication Sig traMADol (ULTRAM) 50 mg tablet Take 50 mg by mouth twice daily as needed. Currently not taking while on [place] for pain amLODIPine (NORVASC) 5 mg tablet [...] tablet by mouth as directed. As directed onpackage (Patient not taking: Reported on 05/18/2022) No [...] right knee PAST SURGICAL HISTORY OF Left 2013 partial knee replacement TOTAL ABDOMINAL HYSTERECT W/WO [...] Yumiko [place] DPM Podiatry [address] [facility] [address] Dept: [phone] Dept * Rosa Greenberg RN - 05/18/2022 4:22 PM EDT AMB ROOMING INTAKE FLOWSHEET DATA Risk Screening [...] they have also helped. documented in this encounterBerger Hospital10-12-2022 Miscellaneous Notes* Telephone Encounter - Zonia Bernardo LPN - 05/04/2022 2:09 PM EDT Called patient and scheduled her an appointment on 05/18/2022 at 4 pm to discuss receiving another injection. Zonia Bernardo LPN * Telephone Encounter - Racquel Barkley LPN - 05/04/2022 9:35 AM EDT Patient called asking if could have another Right big toe injection, d/t swelling and pain. Please call patient back. Thank you. Judy#[phone] documented in this encounterBerger Hospital10-10-2022 NoteHNO ID: [id number] Author: Jesus Alberto Harris APRN.[employer] Service: ? Author Type: Nurse Practitioner Type: [...] 2010 and left knee patellofemoral arthroplasty in 2014. She reports doing very well with these [...] which included preparing to see the patient, [id number] patient care, completing clinical documentation, obtaining and/or reviewing separately obtained history, performing a medically appropriate examination, counseling and educating the patient/family/caregiver, ordering medications, tests, or procedures, communicating with other HCPs (not separately reported), independently interpreting results (not separately reported), communicating results to the patient/family/caregiver, and care coordination (not separately reported). Jesus Alberto Harris APRN.[facility] Orthopaedic SurgeryAv[facility]10-10-2022 NoteHNO ID: [id number] Author: KAROLYN [place] Service: Radiology Author Type: [...] BY: KAROLYN [place] May 02, 2022 9:28 AMBerger HospitalMbpgnfid28-12-1994 History of Present illness Narrative* KAROLYN [place] - 05/02/2022 9:00 AM EDT Radiology Service Progress Note PATIENT NAME: Judy Reagan DATE OF SERVICE: May 02, 2022 TIME: 9:28 AM PATIENT IDENTITY VERIFICATION COMPLETED USING TWO (2) IDENTIFIERS: Name and Date of confirmedby patient verbally. FALL SCREENING: Has the patient had 2 falls in the last year or 1 fall with injury or currently using an Ambulatory Assistive Device (Walker, Cane, Wheelchair, Crutches, etc.)? No PATIENT GENDER DATA: Female. status: : No status: NO. PATIENT RELEVANT IMPLANT DATA REVIEWED: Not Applicable RADIOLOGY DEPARTMENT: General X-ray: Exam(s) Completed: Lower Extremity X- Ray(s): Knee, AP / Lat / Merchant Bilateral and Wt. Bearing PERIPHERAL IV DATA: Not applicable SIGNED BY: KAROLYN [place] May 02, 2022 9:28 AM documented in this encounterBerger Hospital10-06-2022 Miscellaneous Notes* Telephone Encounter - Kitty Bansal - 04/28/2022 9:37 AM EDT Patient returned call, and is rescheduled. * Telephone Encounter - Kitty Bansal - 04/27/2022 10:15 AM EDT Provider out on 05/05/22, left VM & sent Plugged[employer] message. Ok to r/s to 05/03/22. Please assist in rescheduling when patient calls back. Thanks documented in this encounterBerger Hospital10-03-2022 Miscellaneous Notes* Telephone Encounter - Yessenia Whyte - 04/25/2022 4:36 PM EDT Patient is scheduled * Telephone Encounter - Padmini Krueger Ma - 04/25/2022 4:06 PM EDT I called and spoke with patient. Message from Dr. Dunne given. Patient verbalized understanding and was transferred to scheduling to reschedule her appointment to appropriate provider. * Telephone Encounter - Christian Dunne MD - 04/25/2022 3:55 PM EDT I don't really see patients who need a painful replacement or partial replacement evaluated, as if they were to need something further done, or a revision surgery, I do not do those procedures. I would recommend seeing either Elias Harris or Philip Castillo in our [place] office to begin evaluation or a work up for a painful prior replacement. She should be able to get xrays of both knees to review them together. Christian Dunne MD * Telephone Encounter - Amvis Drew WHITTEN - 04/25/2022 2:38 PM EDT Patient called. Verified name and date of . Patient has appointment scheduled for May 02, 2022 with X-Rays to be done prior to appointment with Dr. Dunne to discuss Right knee which has hada total knee replacement done. Patient reports having increased pain in left knee which has had a partial replacement done at [facility] in [place] several years ago. She is concerned that perhaps the pain is from result of favoring her right knee but would like to verify of no changes. Patient aware likely will need to bee seen separate date/time to discuss left knee and verbalizes understanding but would like to hear from Ortho staff. Please review and advise. documented in this encounterBerger Hospital02-08-2022 NoteHNO ID: [id number] Author: Yumiko [place] Service: ? Author Type: [...] mention of hemorrhage) - Essential hypertension, benign 1998 - Generalized anxiety disorder Due to menopausal sx's Current Outpatient Medications Medication Sig - traMADol (ULTRAM) 50 mg tablet Take 50 mg by mouth twice daily as needed. Currently not taking while on [place] for pain - amLODIPine (NORVASC) 5 mg [...] performed. ? cc o (more content not included)...[facility] 06-13-2016 History of Past illness Narrative* Problem Noted [...] of this encounter (statuses as of 04/25/2022) [facility] of Past illness Narrative* Problem [...] of this encounter (statuses as of 04/27/2022) [facility] History of Past illness Narrative* Problem [...] of this encounter (statuses as of 04/28/2022) [facility] History of Past illness Narrative* Problem [...] of this encounter (statuses as of 05/03/2022) [facility] History of Past illness Narrative* Problem [...] of this encounter (statuses as of 05/19/2022) [facility] History of Past illness Narrative* Problem [...] of this encounter (statuses as of 05/19/2022) [facility] History of Past illness Narrative* Problem [...] of this encounter (statuses as of 05/19/2022) [facility] History of Past illness Narrative* Problem [...] of this encounter (statuses as of 08/22/2022) [facility] History of Past illness Narrative* Problem [...] of this encounter (statuses as of 05/28/2023) [facility] Note Date/Time October 07, 2024 11: 48am [facility] Medical Records Department [address] [place] [address] Pre-Anesthesia Evaluation 10/07/24 1141 MR#: [id number] Acct: [id number] Name: JUDY REAGAN ANN Rep #:[id number] : 1960 64 From: Amandeep Madrigal MD PCP: Dr. Hernandez Mosley MD Status:REG S DC Y Race: C Location: [place] [id number] ASA Classification* ASA Classification ASA Classification: 2 Assessment & Plan Anesthesia* Anesthesia Assessment Anesthesia Assessment: Discussed sedation and/or anesthesia options, risks, benefits, and alternatives with patient/parents/legal guardian/POA. Questions invited. The patient/parents/legal guardian/POA seems to understand and agrees to proceedwith anesthesia plan. Reviewed the physical assessment, medical history, allergy history and patient home medications list prior to surgery/procedure/anesthetic and documented any changes. Performed airway and anesthesia risk assessments. Anesthesia Type Anesthesia Type: MAC History Source History Obtained from:: Patient and Chart Anesthesia Focused Assessment* Temperature: 96.9 F Pulse Rate: 92 Blood Pressure: 174/106 Respiratory Rate: 16 Oxygen Delivery Method: Room Air Airway Assessment Mouth opens: >3 cm Mallampati Score: I Teeth Condition: Caps/Crowns (Patient has couple of caps. They are tight.) Neck Range of motion (ROM): Limited ROM (Slight decrease in extension) Focused Labs Anesthesia Preop lab: CBC WBC 9.5 K/mm3 (4.4-11.0) 05/03/24 11:39 05/03/24 RBC 4.65 M/mm3 (4.2-5.4) 05/03/24 11:39 05/03/24 Hgb 13.9 g/dL (12.0-15.0) 05/03/24 11:39 05/03/24 Hct 43.2 % (37-47) 05/03/24 11:39 05/03/24 Plt Count 395 K/mm3 (150-450) 05/03/24 11:39 05/03/24 CHEMISTRY Potassium 3.7 mmol/L (3.5-5.1) 05/03/24 11:39 05/03/24 Sodium 135 mmol/L (136-145) L 05/03/24 11:39 05/03/24 Magnesium 2.3 mg/dL (1.6-2.6) 09/24/23 05:20 09/24/23 Phosphorus 3.3 mg/dL (2.5-4.9) 09/24/23 05:20 09/24/23 BUN 15 mg/dL (7-18) 05/03/24 11:39 05/03/24 Creatinine 0.70 mg/dL (0.55-1.02) 05/03/24 11:39 05/03/24 Glucose 99 mg/dL (74-106) 05/03/24 11:39 05/03/24 POC Glucose 119 mg/dL (74-106) H 06/21/23 09:50 06/21/23 TSH 1.440 uIU/mL (0.358-3.740) 03/19/24 10:58 02/22 02/13 COAG PT 12.6 SECONDS (11.7-14.9) 06/19/23 12:39 Pre-Assessment Diagnosis/Proposed Procedure Planned Operative Procedure(s): caudal steroid inj Anesthesia History Anesthesia History - core measures abstractor: Anesthesia History - core measures abstractor Hx Hospitalization No 10/04/24 14:57 Any Problems With Anesthesia No 10/04/24 14:57 Cholinesterase deficiency No 10/04/24 14:57 You/Your Family Experience No 10/04/24 14:57 fever (hyperthermia) with Relationship Recent Exposure to Contagious No 10/07/24 11:21 Disease Does patient have nerve No 10/04/24 14:57 stimulator Patient instructed to have device shut off --Does patient have Pacemaker No 10/07/24 11:21 or ICD? When Was Last Pacemaker Check QUESTION #4 FULL TEXT: You/Your Family Experience fever (hyperthermia) with Anesthesia Last Oral Intake Last Oral intake: Last Oral Intake NPO since 20:00 10/07/24 11:21 Meds taken in AM with sips of water? Meds patient instructed to take am of surgery PONV PONV - core measures abstractor: PONV - core measures abstractor Female Yes 10/04/24 14:57 HX of Motion Sickness No 10/04/24 14:57 HX of N/V After Surgery No 10/04/24 14:57 Non-Smoker Yes 10/04/24 14:57 Duration of Surgery greater No 10/04/24 14:57 than 60 minutes Number of Risk Factors 2 10/04/24 14:57 PONV Score Moderate Risk 10/04/24 14:57 Height & Weight Height & Weight: Anesthesia: Height & Weight Height 5 ft 4 in 10/07/24 11:21 Weight: 75 kg 10/07/24 11:21 Body Mass Index (BMI) 28.3 10/07/24 11:21 Respiratory Assessment Respiratory Assessment - core measures abstractor: Respiratory Tract Infection Hx - core measures abstractor Hx Respiratory Tract Infection No 10/04/24 14:57 STOP Sleep Apnea STOP Sleep Apnea - core measures abstractor: STOP Sleep Apnea - core measures abstractor Hx Hypertension Yes: CONTROLLED WITH MED 10/04/24 14:57 Hx Sleep Apnea No 10/04/24 14:57 CPAP Yes 11/24/23 14:04 BIPAP Do you snore loudly (louder No 10/04/24 14:57 than talking or can be heard Do you often feel tired/ No 10/04/24 14:57 fatigued/ sleepy during daytime? Has anyone observed you stop No 10/04/24 14:57 breathing during sleep? STOP Results Negative 10/04/24 14:57 QUESTION #5 FULL TEXT : Do you snore loudly (louder than talking or can be heard through closed doors)? 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 Specify any problems Hx of Preganancy in last 3 N/A 10/04/24 14:57 Months Nurse Filling Out Transfusion NBUCHER 10/04/24 14:57 & Questions: Date: 10/04/24 10/04/24 14:57 Time: 14:58 10/04/24 14:57 Patient unable to answer at this time (ie. confused, unrespo /Reproduction History /Reproductive History - core measures abstractor: /Reproductive Hx- core measures abstractor Hx Now No 10/04/24 14:57 Gestational Age (in weeks): EDC: Hx Hx Para Hx Section SAB No 11/24/23 14:04 PFSH Medical History History of Crohn's disease Chronic pain GERD (gastroesophageal reflux disease) History of steroid therapy Wears glasses Post-menopausal Anxiety Alcohol use Hx of psoriatic arthritis Restless legs Back pain History of diverticulitis Hx of peptic ulcer Former smoker History of pain when walking Hypertension Physical exam, pre-employment Osteoarthritis Home Medications ?Medication ?Instructions ?Recorded ?Last Taken ?Type venlafaxine 37.5 mg tablet 75 mg PO QHS depression 10/06/24 History pantoprazole 40 mg tablet,delayed 40 mg PO DAILY GERD 08/09/22 10/07/24 History release ramipril 10 mg capsule 10 mg PO BID HEART 08/09/22 10/06/24 History ropinirole 0.25 mg tablet 0.5 mg PO QHS RESTLESS LEGS 08/09/22 10/06/24 History furosemide 20 mg tablet 20 mg PO DAILY 01/12/2309/21 History acetaminophen 500 mg tablet 1,000 mg (2 x 500 mg) PO Q 6H PRN 06/21/23 11/13/23 Rx #100 tabs acidophilus 25 million 2 tab PO BID #0 tabs 4 10/06/24 Rx cell-pectin, citrus 100 mg tablet tramadol 50 mg tablet 50 - 100 mg (1 - 2 x 50 mg) PO Q8H 09/26/23 10/06/24 Rx PRN pain #10 tabs amlodipine 5 mg tablet (Norvasc) 5 mg PO QHS 11/09/23 10/07/24 History ustekinumab 90 mg/mL subcutaneous 90 mg subcut Q8W #1 mL 03/11/24 Unknown Rx syringe (Stelara) duloxetine 30 mg capsule,delayed 30 mg PO DAILY #30 ca ps 06/25/24 10/06/24 Rx release hyoscyamine sulfate 0.125 mg tablet 0.125 mg PO BID-QI D PRN dyspepsia 08/13/24 Unknown Rx #30 tabs dicyclomine 20 mg tablet 20 mg PO TID PRN abdominal p ain 10/04/24 Unknown History Allergy/AdvReac Type Severity Reaction Status Date / Time adhesive tape Allergy Severe blistering Verified 10/07/24 11:20 bee venom protein (honey bee) Allergy Swelling Verified 10/07/24 11:20 Family History Other Breast cancer CAD (coronary artery disease) Heart disease Hypertension Surgical History Hx of colonoscopy History of lumbar spinal fusion Status post left partial knee replacement History of total right knee replacement History of appendectomy History of hysterectomy History of section Social History household members: spouse Smoking Status: Former smoker alcohol intake: current alcohol intake frequency: holidays/special occasions only substance use type: does not use what type of physical activity do you participate in: walking frequency: 1-2 times per week Review of Systems (Anesthesia) ROS Narrative System reviewed and no additional complaints, except as documented. 10/07/24 1148 <Electronically signed by Amandeep zhou MD> Date _ Amandeep Madrigal MD Cosigner Signature: Date CC: ~ Signed [facility] Work Phone: Consult note Author Montse Nicole [facility] Note Date/Time October 07, 2024 12: 09pm [facility] Medical Records Department [address] [place] [address] Anesthesia Postop Eval I 10/07/24 1208 MR#: [id number] Acct: [id number] Name: JUDY REAGAN ANN Rep #:[id number] : 1960 64 From: Montse Nicole CRNA PCP: Dr. Hernandez Mosley MD Status:REG S DC Y Race: C Location: [place] [address] Anesthesia: Postop Eval I Current Vital Signs Temperature: 98.4 F Pulse Rate: 98 Blood Pressure: 142/90 Respiratory Rate: 18 Pulse Ox: 100 Oxygen Delivery Method: Room Air Assessment Airway patent: Yes Spontaneous unlabored respirations: Yes Mental status: Awake nausea: No Vomiting: No Anesthesia Complication: No Fluid Hydration Crystalloid volume administer (ml): 10 Total IV fluid infused: 10 Progress Note Anesthesia document: Postop Eval 1 completed: Yes 10/07/24 1209 <Electronically signed by Montse lindsay APPRENTICESHIP CONSULTANT> Date _ Montse Nicole APPRENTICESHIP CONSULTANT Cosigner Signature: Date CC: ~ Signed [facility] Work Phone: Consult note Author Yeimy Duggan [facility] Note Date/Time October 07, 2024 12: 55pm [facility] Medical Records Department [address] [place] [address] Anesthesia Postop Eval II 10/07/24 1226 MR#: [id number] Acct: [id number] Name: JUDY REAGAN ANN Rep #:[id number] : 1960 64 From: Yeimy Duggan PCP: Dr. Hernandez Mosley MD Status:REG S DC Y Race: C Location: [place] [address] Anesthesia Postop Eval I Sum Postop Eval Completion status Anesthesia document: Postop Eval 1 completed: Yes Anesthesia Postop Eval I Summary Anesthesia Postop Eval I Summary: Anesthesia Postop Eval I: Assessment Summary Airway patent Yes 10/07/24 12:09 APPRENTICESHIP CONSULTANT.LMIL Spontaneous unlabored Yes 10/07/24 12:09 APPRENTICESHIP CONSULTANT.LMIL respirations Mental status Awake 10/07/24 12:09 APPRENTICESHIP CONSULTANT.LMIL nausea No 10/07/24 12:09 APPRENTICESHIP CONSULTANT.LMIL Vomiting No 10/07/24 12:09 APPRENTICESHIP CONSULTANT.LMIL Anesthesia Postop Eval I: Fluid Summary Crystalloid volume administer 10 10/07/24 12:09 APPRENTICESHIP CONSULTANT.LMIL (ml) Colloids volume administered ( ml) Blood Product volume administered (ml) Total IV fluid infused 10 10/07/24 12:09 APPRENTICESHIP CONSULTANT.LMIL Anesthesia Postop Eval I: Summary Notes Anesthesia Complication No 10/07/24 12:09 APPRENTICESHIP CONSULTANT.LMIL Anesthesia Complication Comment: Post-operative progress note Anesthesia: Postop Eval II Evaluation Mental status: Awake Pain Level: 3 nausea: No Vomiting: No 10/07/24 1226 <Electronically signed by Yeimy chirinos> Date _ Yeimy Lylesignhadley Signature: Date CC: ~ Signed [facility] Work Phone: Discharge summary Author Dr. Damian [facility] October 15, 2022 2:00pm Note Date/Time October 15, 2022 2:0 0pm [facility] Medical Records Department [address] [place] [address] Instructions for Home/Discharge Instructions 10/15/22 1358 MR#: [id number] Acct: [id number] Name: JUDY REAGAN Rep #:[id number] : 1960 62 From: Reyes Farmer PCP: Dr. Hernandez Mosley MD Status:ADM I N Discharge Instructions Activity May shower in (days): 2 May resume sexual activity in: 4-6 weeks Weight Bearing Status: Full weight bearing Lifting Restrictions: 15# Dressing / Incision Cleanse incision/area with: Soap & Water Follow Up Care Test Results: Test results from this visit will be discussed in further detail at your follow- up appointment, if applicable. Discharge Plan Admission Admit Date/Time: 10/11/22 05:38 Primary Reason for Your Visit: lumbar fusion Attending Provider: Reyes Damian Primary Care Provider: Hernandez Mosley Chi Consulting Providers: Amandeep Madrigal ; Lydia Hernández Discharge Orders/Prescriptions Prescriptions: No Action tramadol 50 mg tablet 50 mg PO 4XD PRN (Reason: BACK PAIN) venlafaxine 37.5 MG tablet 37.5 mg PO QHS Label Comments: mood folic acid 1 MG tablet 1 mg PO DAILY@0800 Label Comments: DAILY EXCEPT MONDAY amlodipine 5 MG tablet 2.5 mg PO QHS ropinirole 0.25 mg tablet 0.5 mg PO QHS Label Comments: TAKE 2 TABLETS BY MOUTH ONCE DAILY AT BEDTIME FOR 90 DAYS pantoprazole 40 MG tablet,delayed release (DR/EC) 40 mg PO DAILY Label Comments: acid reflux ramipril 10 MG capsule 10 mg PO BID oxycodone-acetaminophen 5-325 mg tablet 1 tab PO Q6H PRN (Reason: pain) 10 Days Qty: 40 0RF diazepam [Valium] 5 mg tablet 5 mg PO TID PRN (Reason: anxiety) 10 Days Qty: 30 0RF Referrals / Follow Up: Hernandez Mosley Chi, MD [Primary Care Provider] - Disposition Disposition (needs filled in before D/C Order can be placed): Home, Self Care 10/15/22 1400<Electronically signed by Reyes Damian DO>Reyes Damian DO CC: Dr. Amandeep Madrigal MD; Dr. Lydia Hernández MD; Dr. Hernandez Mosley MD ~ Signed [facility] Work Phone: Discharge summary Author Dr. Damian [facility] October 15, 2022 2:03pm Note Date/Time October 15, 2022 2:0 3pm [facility] Medical Records Department [address] [place] [id number] Discharge Summary 10/15/22 1400 MR#: [id number] Acct: [id number] Name: JUDY REAGAN Rep #:[id number] : 1960 62 From: Reyes Farmer PCP: Dr. Hernandez Mosley MD Status:ADM I N Location[place] [facility] [place] [id number] Providers Date of Admission: 10/11/22 Primary Care Physician: Dr. Hernandez Mosley MD Attending Physician: This patient was admitted on Monday the . She underwent 360 degree fusion at the L4-5 level. Today is the fourth postop day and she is doing quite well. She ambulates with her walker without difficulty. Removed her dressing today and the incision is dry and healing well. Neurologically she is intact. I remove the anterior dressing also and that incision likewise is healing well. Itold her that she can start showering tomorrow with use of the Hibiclens that she has left from preop. She already has an appointment to see me in the office. She has received oxycodone and Valium for home use. This is the end of discharge summary on Shelley Reagan this is Dr. Damian dictating. Consultations 10/11/22 15:35 Consult: Hospitalist Routine Consulting Provider: Jesse Keller Reason for Consult: Medical Management EMERGENT Consult: No MD Notified: Yes Date Notified: 10/11/22 Time Notified: 18:04 Method of Notification: Text Reason For Visit: 360 LUMBAR FUSION Diagnosis Discharge Diagnosis (1) Essential hypertension: Status: Chronic Code(s): I10 - Essential (primary) hypertension Medications at Discharge Home Medications venlafaxine 37.5 mg tablet 37.5 mg PO QHS depression 03/20/16 folic acid 1 mg tablet 1 mg PO DAILY@0800 supplement 10/25/17 amlodipine 5 mg tablet 2.5 mg PO QHS BP 01/03/18 tramadol 50 mg tablet 50 mg PO 4XD PRN BACK PAIN 11/29/18 pantoprazole 40 mg tablet,delayed release 40 mg PO DAILY GERD 08/09/22 ramipril 10 mg capsule 10 mg PO BID HEART 08/09/22 ropinirole 0.25 mg tablet 0.5 mg PO QHS RESTLESS LEGS 08/09/22 diazepam 5 mg tablet (Valium) 5 mg PO TID PRN anxiety 10 days #30 tabs 10/14/22 oxycodone-acetaminophen 5 mg-325 mg tablet 1 tab PO Q6H PRN pain 10 days #40 tabs 10/14/22 Weight / BMI Weight Weight: 160 lb Body Mass Index (BMI) 27.4 ABG / Lab / Microbiology Data Result Diagrams: 10/14/22 08:44 10/14/22 08:44 Microbiology: Microbiology 10/13/22 04:30 Urine, Clean Catch Urine Culture - Final Pseudomonas aeruginosa D/C Instructions May shower in (days): 2 May resume sexual activity in: 4-6 weeks Weight Bearing Status: Full weight bearing Cleanse incision/area with: Soap & Water Meaningful Use Info Meaningful Use Diagnoses (Choose all that apply): None applicable Discharge Plan Admission Admit Date/Time: 10/11/22 05:38 Primary Reason for Your Visit: lumbar fusion Attending Provider: Reyes Damian Primary Care Provider: Hernandez Mosley Chi Consulting Providers: Amandeep Madrigal ; Lydia Hernández Discharge Orders/Prescriptions Prescriptions: No Action tramadol 50 mg tablet 50 mg PO 4XD PRN (Reason: BACK PAIN) venlafaxine 37.5 MG tablet 37.5 mg PO QHS Label Comments: mood folic acid 1 MG tablet 1 mg PO DAILY@0800 Label Comments: DAILY EXCEPT MONDAY amlodipine 5 MG tablet 2.5 mg PO QHS ropinirole 0.25 mg tablet 0.5 mg PO QHS Label Comments: TAKE 2 TABLETS BY MOUTH ONCE DAILY AT BEDTIME FOR 90 DAYS pantoprazole 40 MG tablet,delayed release (DR/EC) 40 mg PO DAILY Label Comments: acid reflux ramipril 10 MG capsule 10 mg PO BID oxycodone-acetaminophen 5-325 mg tablet 1 tab PO Q6H PRN (Reason: pain) 10 Days Qty: 40 0RF diazepam [Valium] 5 mg tablet 5 mg PO TID PRN (Reason: anxiety) 10 Days Qty: 30 0RF Referrals / Follow Up: Hernandez Mosley Chi, MD [Primary Care Provider] - Disposition Disposition (needs filled in before D/C Order can be placed): Home, Self Care 10/15/22 1403 <Electronically signed by Reyes Damian DO> Cosigner Signature (if applicable): CC: Dr. Reyes Damian DO; Dr. Hernandez Mosley MD~ Signed [facility] Work Phone: Discharge summary Author Michael Lyman [facility] September 24, 2023 4:34am Note Date/Time September 24, 2023 3:12 am [facility] Medical Records Department [address] [place] [address] Emergency Department Summary 09/24/23 MR#: [id number] Acct: [id number] Name: JUDY REAGAN Rep #:[id number] : 1960 63 From: Michael Lyman DO PCP: Dr. Hernandez Mosley MD Status:ADM I N Location: [place] [address] HPI History of Present Illness Chief Complaint: Abd Pain Informant: patient Narrative Narrative: Patient is a 63-year-old female with past medical history of hypertension and diverticulitis. She states that 3 to 4 days ago she developed some generalized abdominal discomfort greatest in the left lower abdomen and with her history went and saw her family doctor. She had outpatient blood work obtained and a CTscan which showed changes concerning for diverticulitis. She was started on Augmentin and has been taking as directed. Despite using the antibiotic she hashad worsening abdominal pain and now is reporting blood in her stool. Thereforethe worsening symptoms that are not being controlled with outpatient therapy shepresents for evaluation [facility] Medical History Alcohol use Anxiety Back pain Former smoker History of diverticulitis History of pain when walking History of steroid therapy Hx of peptic ulcer Hx of psoriatic arthritis Hypertension Osteoarthritis Physical exam, pre-employment Post-menopausal Restless legs Wears glasses Home Medications venlafaxine 37.5 mg tablet 75 mg PO QHS depression 03/20/16 [History Last Taken 10/10/22] amlodipine 5 mg tablet 2.5 mg PO QHS BP 01/03/18 [History Last Taken 06/21/23] pantoprazole 40 mg tablet,delayed release 40 mg PO DAILY GERD 08/09/22 [History Last Taken 06/21/23] ramipril 10 mg capsule 10 mg PO BID HEART 08/09/22 [History Last Taken 10/11/22] ropinirole 0.25 mg tablet 0.5 mg PO QHS RESTLESS LEGS 08/09/22 [History Last Taken 10/10/22] furosemide 20 mg tablet 20 mg PO DAILY 01/12/23 [History Last Taken Unknown] acetaminophen 500 mg tablet 1,000 mg (2 x 500 mg) PO Q6H PRN #100 tabs 06/21/23 [Rx Last Taken Unknown] tramadol 50 mg tablet 50 - 100 mg (1 - 2 x 50 mg) PO Q8H PRN pain #42 tabs 08/11/23 [Rx Last Taken Unknown] Allergy/AdvReac Type Severity Reaction Status Date / Time adhesive tape Allergy Severe blistering Verified 08/21/23 11:32 bee venom protein (honey bee) Allergy Swelling Verified 08/21/23 11:32 Family History Other Breast cancer CAD (coronary artery disease) Heart disease Hypertension Surgical History History of appendectomy History of section History of hysterectomy History of lumbar spinal fusion History of total right knee replacement Status post left partial knee replacement Social History household members: spouse Smoking Status: Former smoker alcohol intake: current alcohol intake frequency: holidays/special occasions only substance use type: does not use what type of physical activity do you participate in: walking frequency: 1-2 times per week ROS ROS ED Constitutional Constitutional ED: Denies chills or fever(s) ENT ENT ED: Denies sore throat Cardiovascular Cardiovascular: Denies chest pain Respiratory/Chest Respiratory/Chest: Denies cough or dyspnea Gastrointestinal Gastrointestinal: Reports abdominal pain, diarrhea and other Details: Positive hematochezia ; Denies nausea or vomiting Genitourinary Genitourinary ED: Denies dysuria or hematuria Musculoskeletal Musculoskeletal: Denies back pain or myalgias Integumentary Denies rash Neurologic Neurologic: Denies headache(s) Hematologic/Lymphatic Hematologic/Lymphatic: Denies easy bleeding or easy bruising EXAM Physical Exam Const Vital Signs: 09/24/23 00:53 09/24/23 00:53 09/24/23 01:01 Temperature 97.5 F L 97.5 F L 98.7 F Temperature Source Oral Oral Temporal Pulse Rate 79 71 69 Respiratory Rate 16 16 16 Blood Pressure 180/105 H 181/96 H 169/103 H Blood Pressure Mean 130 124 125 Pulse Ox 100 100 98 Oxygen Delivery Method Room Air Room Air Room Air Positive well nourished and well developed General Appearance ED: well developed; Negative for pallor HEENT HEENT Narrative: Normocephalic atraumatic Eyes PERRL and EOMs intact bilaterally General Eye ED: Negative for pale conjunctiva or scleral icterus Neck supple Resp normal respiratory effort and clear to auscultation bilaterally Cardio regular rate and regular rhythm Rate: other Other Details: Radial and carotid pulses are equal and symmetric GI non-distended GI Narrative: Abdomen is soft and nondistended with hyperactive bowel sounds. Patient has pain with palpation diffusely but greatest in the left lower quadrant. No voluntary guarding or rigidity. No pulsatile mass or fluid wave. No peritonealsigns Auscultation: hyperactive bowel sounds Palpation: soft Extremity normal to inspection Neuro oriented x3, CN's II-XII intact bilaterally and no sensory deficits noted Sensorium / Orientation: alert Motor Exam: strength 5/5 throughout Psych mental status grossly normal Skin no rashes or lesions noted and skin turgor normal General Skin Exam: Negative for jaundice or pallor MDM MDM MDM Narrative Medical decision making narrative: Patient presented to the ER hypertensive but otherwise with stable vitals. She had recent outpatient blood work and CT scan documenting diverticulitis. Differential diagnosis is for failure of outpatient therapy versus progression to sepsis versus potential perforation versus abscess formation. Basic labs were repeated and patient's white count and neutrophil count are normal her lactic acid is normal going against systemic infection. She is not febrile or tachycardic and without changes to her lactic acid or white blood cell count or neutrophil count she does not classify as sepsis. We discussed potential repeatCT scan but the patient's abdomen is soft without peritoneal signs and thereforemy concern for abscess or perforation is low and I do not feel there is need forrepeat imaging. Patient was started on Cipro and Flagyl as she has been on penicillin without symptom improvement. Moreover she reports that Cipro and Flagyl has helped resolve her infection in the past. As patient has had persistent pain that has been worsening over the last 2 days despite antibiotic therapy and has had recurrent bouts of diverticulitis I do not feel that she would do well with a switch to oral antibiotics and therefore discussed the casewith the hospitalist about potential admission for IV antibiotics as well as potential surgical consult secondary to her recurrent episodes. Patient was evaluated by the hospitalist and he does agree with this plan of care and therefore should be admitted at this time History & Record Review Discussion w/independent historian: Patient Lab Data Attestation: I reviewed the patient's lab results. Labs: Laboratory Results - last 24 hr 09/24/23 01:10 WBC 7.0 RBC 4.66 Hgb 13.6 Hct 42.8 MCV 91.8 MCH 29.2 MCHC 31.8 L RDW Std Deviation 43.7 RDW Coeff of Caity 13.0 Plt Count 296 MPV 10.0 Immature Gran % (Auto) 0.300 Neut % (Auto) 57.1 Lymph % (Auto) 27.2 [place] % (Auto) 12.8 H Eos % (Auto) 1.6 Baso % (Auto) 1.0 Absolute Neuts (auto) 4.0 Absolute Lymphs (auto) 1.89 Nucleated RBC % 0 Sodium 139 Potassium 3.4 L Chloride 107 Carbon Dioxide 29.0 Anion Gap 3 L BUN 12 Creatinine 0.74 Estim Creat Clear Calc 68.94 Est GFR (MDRD) Af Amer 103 Est GFR (MDRD) Non-Af 85 BUN/Creatinine Ratio 16.2 Glucose 101 Lactic Acid 0.7 Calcium 9.1 Magnesium 2.4 Management Discussion w/another healthcare provider: Hospitalist Discharge Plan Dx/Rx/DC Orders Clinical Impression: Acute diverticulitis, Failure of outpatient treatment, Hypertension Disposition Disposition: [facility] Care [facility] What to do if you have Problems For any increased pain, shortness of breath, bleeding, nausea or vomiting, chestpain, or any unexpected problems, contact your Primary Care Provider. Call [facility] ([phone]) or report to the closest Emergency Room. Call 911 if necessary. 09/24/23 0434 <Electronically signed by Michael Lyman DO> Cosigner Signature (if applicable): CC: Dr. Hernandez Mosley MD ~ Signed [facility] Work Phone: evaluation noteNo assessment information available [facility] Work Phone: Evalusekmh note* Diagnosis Pain in both knees, unspecified chronicity- [facility] Pain in both knees, unspecified chronicity [facility] Diagnosis Hallux limitus, acquired, unspecified laterality- [facility] Diagnosis Acquired hallux limitus of right foot- Primary Acquired hallux limitus of right foot [facility] Diagnosis Onset Date Resolution Status DDD (degenerative disc disease), lumbar acute Degeneration of L4-L5 intervertebral disc acute [facility] Work Phone: Evaluation note* Diagnosis Onset Date Resolution Status DDD (degenerative disc disease), lumbar acute Degeneration of L4-L5 intervertebral disc acute Degeneration of L4-L5 intervertebral disc acute [facility] Work Phone: Evaluation note* Diagnosis Onset Date Resolution Status DDD (degenerative disc disease), lumbar acute Degeneration of L4-L5 intervertebral disc acute Degeneration of L4-L5 intervertebral disc acute DDD (degenerative disc disease), lumbar acute Essential hypertension chron ic [facility] Work Phone: Evaluation note* Diagnosis Onset Date Resolution Status S/P lumbar fusion acute S/P lumbar fusion acute Trochanteric bursitis of left hip acute [facility] Work Phone: Evaluation note* Diagnosis Hallux limitus, acquired, unspecified laterality [facility] Diagnosis Onset Date Resolution Status S/P lumbar fusion acute Trochanteric bursitis of left hip acute S/P lumbar fusion acute Status post left partial knee replacement acute Trochanteric bursitis of left hip acute History of arthroplasty of knee acute Internal derangement of knee joint acute [facility] Work Phone: Evaluation note* Diagnosis Onset Date Resolution Status History of arthroplasty of knee acute Internal derangement of knee joint acute Pseudogout acute Orthopedic aftercare noneact adeel Iliotibial band syndrome affecting left lower leg acute Orthopedic aftercare acute Pseudogout acute Iliotibial band syndrome affecting left lower leg acute Orthopedic aftercare acute Pseudogout acute [facility] Work Phone: Evaluation note* Diagnosis Onset Date Resolution Status History of arthroplasty of knee acute Internal derangement of knee joint acute Pseudogout acute Orthopedic aftercare noneact adeel Iliotibial band syndrome affecting left lower leg acute Orthopedic aftercare acute Pseudogout acute Iliotibial band syndrome affecting left lower leg acute Orthopedic aftercare acute Pseudogout acute Acute diverticulitis acute Failure of outpatient treatment acute Hypertension chronic [facility] Work Phone: Evaluation note* Diagnosis Onset Date Resolution Status History of arthroplasty of knee acute Internal derangement of knee joint acute Pseudogout acute Orthopedic aftercare noneact adeel Iliotibial band syndrome affecting left lower leg acute Orthopedic aftercare acute Pseudogout acute Iliotibial band syndrome affecting left lower leg acute Orthopedic aftercare acute Pseudogout acute Acute diverticulitis acute Failure of outpatient treatment acute GI bleed acute Hypertension chronic [facility] Work Phone: Evaluation note* Diagnosis Onset Date Resolution Status Pseudogout acute Orthopedic aftercare noneact adeel Iliotibial band syndrome affecting left lower leg acute Orthopedic aftercare acute Pseudogout acute Iliotibial band syndrome affecting left lower leg acute Orthopedic aftercare acute Pseudogout acute Acute diverticulitis acute Failure of outpatient treatment acute Hypertension chronic GI bleed resolved Acute diverticulitis acute Crohn's disease acute [facility] Work Phone: Evaluation note* Diagnosis Onset Date Resolution Status Iliotibial band syndrome affecting left lower leg acute Orthopedic aftercare acute Pseudogout acute Iliotibial band syndrome affecting left lower leg acute Orthopedic aftercare acute Pseudogout acute Acute diverticulitis acute Failure of outpatient treatment acute Hypertension chronic GI bleed resolved Acute diverticulitis acute Crohn's disease acute Crohn's disease acute History of partial knee replacement acute Iliotibial band syndrome affecting left lower leg acute Pseudogout acute Psoriatic arthritis chronic [facility] Work Phone: Evaluation note* Diagnosis Onset Date Resolution Status S/P lumbar fusion acute Trochanteric bursitis of left hip acute S/P lumbar fusion acute Status post left partial knee replacement acute Trochanteric bursitis of left hip acute History of arthroplasty of knee acute Internal derangement of knee joint acute Pseudogout acute Orthopedic aftercare noneact adeel [facility] Work Phone: Hospital Discharge instructions Additional Instructions Left shoulder and left hip x-ray negative. Continue your tramadol at home. Muscle relaxer as needed. Follow-up with your doctor.[facility] Work Phone: Reason for referral (narrative)* Diagnostic Procedure Only (Routine) - Pending Review Specialty Diagnoses / Procedures Referred By Rigo valente Referred To Contact XR IMAGING Diagnoses Pain in both knees, unspecified chronicity Procedures XR KNEE POST OP 3V AP/LAT/MERCHANT BILATERAL RADIOLOGIC EXAMINATION KNEE 3 VIEWS Jesus Alberto Harris, COREEN.IRON PILER [address] [address] Xr Imaging Referral ID Status Reason Start Date Expiration Date Visits Requested Visits Authorized [id number] Pending Review Auto-Generat ed Referral 04/27/2022 05/26/2023 1 1 [facility] for referral (narrative)* Diagnostic Procedure Only (Routine) - Closed Specialty Diagnoses / Procedures Referred By Contac t Referred To Contact XR IMAGING Diagnoses Pain in both knees, unspecified chronicity Procedures XR KNEE POST OP 3V AP/LAT/MERCHANT BILATERAL RADIOLOGIC EXAMINATION KNEE 3 VIEWS Jesus Alberto Harris APRN.CNP [address] [facility], [address] [place] [id number] Xr Imaging Referral ID Status Reason Start Date Expiration Date V isits Requested Visits Authorized [id number] Closed Auto-Generate d Referral 04/27/2022 05/26/2023 1 1 [facility] for referral (narrative)* Diagnostic Procedure Only (Routine) - Closed Specialty Diagnoses / Procedures Referred By Contac t Referred To Contact XR IMAGING Diagnoses Hallux limitus, acquired, unspecified laterality Procedures XR FOOT GENERAL 3V AP/LAT/OBL RIGHT RADEX FOOT COMPLETE MINIMUM 3 VIEWS Yumiko [place] [address] Xr Imaging Referral ID Status Reason Start Date Expiration Date V isits Requested Visits Authorized [id number] Closed Auto-Generate d Referral 05/18/2022 06/17/2023 1 1 [facility] for referral (narrative)* Diagnostic Procedure Only (Routine) - Closed Specialty Diagnoses / Procedures Referred By Contac t Referred To Contact XR IMAGING Diagnoses Hallux limitus, acquired, unspecified laterality Procedures XR FOOT GENERAL 3V AP/LAT/OBL RIGHT RADEX FOOT COMPLETE MINIMUM 3 VIEWS Yumiko Welsh [address] [place] [address] [place] [address] Referral ID Status Reason Start Date Expiration Date V isits Requested Visits Authorized [id number] Closed Auto-Generate d Referral 05/18/2022 06/17/2023 1 1 [facility] for referral (narrative)No reason for referral information available[facility]ri[facility] Work Phone: [facility] Narrative* Diagnostic Procedure Only (Routine) - Closed Specialty Diagnoses / Procedures Referred By Contac t Referred To Contact XR IMAGING Diagnoses Pain in both knees, unspecified chronicity Procedures XR KNEE POST OP 3V AP/LAT/MERCHANT BILATERAL RADIOLOGIC EXAMINATION KNEE 3 VIEWS Jesus Alberto Harris APRN.IRON PILER [address] [facility], [address] [place] [id number] Xr Imaging Referral ID Status Reason Start Date Expiration Date V isits Requested Visits Authorized [id number] Closed Auto-Generate d Referral 04/27/2022 05/26/2023 1 1 [facility] for visit Narrative* Diagnostic Procedure Only (Routine) - Closed Specialty Diagnoses / Procedures Referred By Contac t Referred To Contact XR IMAGING Diagnoses Hallux limitus, acquired, unspecified laterality Procedures XR FOOT GENERAL 3V AP/LAT/OBL RIGHT RADEX FOOT COMPLETE MINIMUM 3 VIEWS Yumiko Welsh [address] [place] [address] [place] [address] Referral ID Status Reason Start Date Expiration Date V isits Requested Visits Authorized [id number] Closed Auto-Generate d Referral 05/18/2022 06/17/2023 1 1 [facility] Summary Purpose Family History No Family History Records Found Relationship Condition Age at Onset Recorded Date/T jae Not Specified Coronary artery disease Unknown Cardiac disease Unknown Malignant neoplasm of breast Unknown Hypertension Unknown Advance Directives No Advanced Directives Records Found Advance Directive Response Recorded Date/ Time Advance Directives No May 11:51pm Living Will Yes January 16, 2020 10:39pm Power of Border Machine Operator Yes January 15 10:39pm Advance Directive Response Recorded Date/ Time Advance Directives No May 11:51pm Living Will Yes December 22, 2021 8 :51am Power of Border Machine Operator Yes December 22, 2021 8:51am Advance Directive Response Recorded Date/ Time Advance Directives No May 11:51pm Living Will Yes December 22, 2021 8 :51am Power of Border Machine Operator Yes December 22, 2021 8:51am Name of Medical Power of Border Machine Operator DASIA REAGAN December 22, 2021 8:51am Documents on File Type Date Recorded Patient Shift Production Associate Expl anation Advance Directive(s) 01/23/2014 11:01 AM Documents on File Type Date Recorded Patient Shift Production Associate Expl anation Advance Directive(s) 01/23/2014 11:01 AM Advance Directive Response Recorded Date/ Time Advance Directives No May 10:51pm Living Will Yes August 09 11:08am Power of Border Machine Operator Yes August 09, 2022 11:08am Advance Directive Response Recorded Date/ Time Name of Medical Power of Border Machine Operator DASIA August 09, 2022 11:08am Advance Directives No May 10:51pm Living Will Yes August 09 11:08am Power of Border Machine Operator Yes August 09, 2022 11:08am Advance Directive Response Recorded Date/ Time Name of Medical Power of Border Machine Operator DASIA August 09, 2022 11:08am Advance Directives No May 10:51pm Living Will Yes September 27, 2022 1:56pm Power of Border Machine Operator Yes September 27 1:56pm Advance Directive Response Recorded Date/ Time Name of Medical Power of Border Machine Operator DASIA August 09, 2022 12:08pm Name of Medical Power of Border Machine Operator Dasia Reagan October 11, 2022 5:54pm Advance Directives No May 11:51pm Living Will Yes October 11, 2022 5:54pm Power of Border Machine Operator Yes October 11 5:54pm Advance Directive Response Recorded Date/ Time Name of Medical Power of Border Machine Operator Dasia April 21, 2023 11:18pm Advance Directives No May 11:51pm Living Will Yes April 21, 2023 11:18pm Power of Border Machine Operator Yes March 11:18pm Advance Directive Response Recorded Date/ Time Name of Medical Power of Border Machine Operator Dasia Bethany 29th, 2023 10:18pm Name of Medical Power of Border Machine Operator SPOUSE June 16, 2023 1:12pm Advance Directives No May 10:51pm Living Will Yes June 16, 2 023 1:12pm Power of Border Machine Operator Yes June 16, 2023 1:12pm Advance Directive Response Recorded Date/ Time Name of Medical Power of Border Machine Operator SPOUSE June 16, 2023 1:12pm Advance Directives No May 10:51pm Living Will Yes June 16, 2 023 1:12pm Power of Border Machine Operator Yes June 16, 2023 1:12pm Advance Directive Response Recorded Date/ Time Name of Medical Power of Border Machine Operator SPOUSE June 16, 2023 1:12pm Advance Directives No May 10:51pm Living Will Yes September 24, 2023 12:53am Power of Border Machine Operator No September 23 12:53am Advance Directive Response Recorded Date/ Time Name of Medical Power of Border Machine Operator SPOUSE June 16, 2023 1:12pm Name of Medical Power of Border Machine Operator Dasia Reagan September 24, 2023 4:34am Advance Directives No May 10:51pm Living Will Yes September 24, 2023 4:34am Power of Border Machine Operator Yes September 23 4:34am Advance Directive Response Recorded Date/ Time Name of Medical Power of Border Machine Operator Dasia Boss September 24, 2023 5:34am Advance Directives No May 11:51pm Living Will Yes September 24, 2023 5:34am Power of Border Machine Operator Yes September 23 5:34am Advance Directive Response Recorded Date/ Time Name of Medical Power of Border Machine Operator SPOUSE November 09, 2023 3:23pm Advance Directives No May 11:51pm Living Will Yes November 09, 2023 3:23pm Power of Border Machine Operator Yes November 08 3:23pm Name of Medical Power of Border Machine Operator Dasia Boss September 24, 2023 5:34am Advance Directive Response Recorded Date/ Time Living Will No October 04, 2024 2:57pm Power of Border Machine Operator No October 04 2:57pm Advance Directives No November 24, 2023 2:04pm Advance Directive Response Recorded Date/ Time Living Will No October 04, 2024 2:57pm Do you have a Healthcare Power of Border Machine Operator? No October 04, 2024 2:57pm Advance Directives No November 24, 2023 2:04pm Chief Complaint and Reason for Visit Chief Complaint SCREENING/OSTEO HISTORY OF TOBACCO ABUSE ABDOMINAL PAIN STAT Chief Complaint HISTORY OF TOBACCO A BUSE ABDOMINAL PAIN STAT n/v Chief Complaint n/v Chief Complaint LUMBASACRAL RADICULO ANTIONE LUMBER SPINE Rm 2 xray LUMBER SPINE LABWORK Reason for Visit DDD (degenerative di sc disease), lumbar Degeneration of L4-L5 intervertebral disc Chief Complaint LUMBASACRAL RADICULO ANTIONE LUMBER SPINE Rm 2 xray LUMBER SPINE LABWORK 360 LUMBAR FUSION Reason for Visit DDD (degenerative di sc disease), lumbar Degeneration of L4-L5 intervertebral disc Chief Complaint LUMBASACRAL RADICULO ANTIONE LUMBER SPINE Rm 2 xray LUMBER SPINE LABWORK 360 LUMBAR FUSION SCREENING Reason for Visit DDD (degenerative di sc disease), lumbar Degeneration of L4-L5 intervertebral disc Chief Complaint LUMBASACRAL RADICULO ANTIONE LUMBER SPINE Rm 2 xray LUMBER SPINE LABWORK 360 LUMBAR FUSION SCREENING VIRAL SYMPTOMS lumbar spine Reason for Visit DDD (degenerative di sc disease), lumbar Degeneration of L4-L5 intervertebral disc Degeneration of L4-L5 intervertebral disc Chief Complaint LUMBER SPINE Rm 2 xray LUMBER SPINE LABWORK 360 LUMBAR FUSION SCREENING VIRAL SYMPTOMS lumbar spine 360 LUMBAR FUSION 360 LUMBAR FUSION 360 LUMBAR FUSION 360 LUMBAR FUSION 360 LUMBAR FUSION 360 LUMBAR FUSION 360 LUMBAR FUSION 360 LUMBAR FUSION 360 LUMBAR FUSION 360 LUMBAR FUSION 360 LUMBAR FUSION Reason for Visit DDD (degenerative di sc disease), lumbar Degeneration of L4-L5 intervertebral disc Degeneration of L4-L5 intervertebral disc DDD (degenerative disc disease), lumbar Essential hypertension Chief Complaint LUMBAR SPINE Room 4 LUMBER SPINE Room 2 Fall Reason for Visit S/P lumbar fusion S/P lumbar fusion Trochanteric bursitis of left hip Chief Complaint LUMBER SPINE Room 2 Fall LUMBAR SPINE RM 3 LEFT KNEE Room 2 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 Reason for Visit S/P lumbar fusion Trochanteric bursitis of left hip S/P lumbar fusion Status post left partial knee replacement Trochanteric bursitis of left hip History of arthroplasty of knee Internal derangement of knee joint Chief Complaint LEFT KNEE Room 2 PREOP 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 left knee LEFT KNEE RM 1 LT KN REVISION/RX HERE LEFT KNEE Unspecified abdominal pain STOOL SAMPLE Reason for Visit History of arthropla sty of knee Internal derangement of knee joint Pseudogout Orthopedic aftercare Iliotibial band syndrome affecting left lower leg Orthopedic aftercare Pseudogout Iliotibial band syndrome affecting left lower leg Orthopedic aftercare Pseudogout Chief Complaint LEFT KNEE Room 2 PREOP 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 left knee LEFT KNEE RM 1 LT KN REVISION/RX HERE LEFT KNEE Unspecified abdominal pain STOOL SAMPLE ACUTE DIVERTICULITIS THAT FAILED OUTPATIENT ATB TX Reason for Visit History of arthropla sty of knee Internal derangement of knee joint Pseudogout Orthopedic aftercare Iliotibial band syndrome affecting left lower leg Orthopedic aftercare Pseudogout Iliotibial band syndrome affecting left lower leg Orthopedic aftercare Pseudogout Acute diverticulitis Failure of outpatient treatment Hypertension Chief Complaint LEFT KNEE Room 2 PREOP 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 left knee LEFT KNEE RM 1 LT KN REVISION/RX HERE LEFT KNEE Unspecified abdominal pain STOOL SAMPLE ACUTE DIVERTICULITIS THAT FAILED OUTPATIENT ATB TX ACUTE DIVERTICULITIS THAT FAILED OUTPATIENT ATB TX ACUTE DIVERTICULITIS THAT FAILED OUTPATIENT ATB TX ACUTE DIVERTICULITIS THAT FAILED OUTPATIENT ATB TX ACUTE DIVERTICULITIS THAT FAILED OUTPATIENT ATB TX Reason for Visit History of arthropla sty of knee Internal derangement of knee joint Pseudogout Orthopedic aftercare Iliotibial band syndrome affecting left lower leg Orthopedic aftercare Pseudogout Iliotibial band syndrome affecting left lower leg Orthopedic aftercare Pseudogout Acute diverticulitis Failure of outpatient treatment GI bleed Hypertension Chief Complaint left knee LEFT KNEE RM 1 LT KN REVISION/RX HERE LEFT KNEE Unspecified abdominal pain STOOL SAMPLE ACUTE DIVERTICULITIS THAT FAILED OUTPATIENT ATB TX ACUTE DIVERTICULITIS THAT FAILED OUTPATIENT ATB TX ACUTE DIVERTICULITIS THAT FAILED OUTPATIENT ATB TX ACUTE DIVERTICULITIS THAT FAILED OUTPATIENT ATB TX ACUTE DIVERTICULITIS THAT FAILED OUTPATIENT ATB TX RECURRENT DIVERTICULITIS Hospital FU EORDER Reason for Visit Pseudogout Orthopedic aftercare Iliotibial band syndrome affecting left lower leg Orthopedic aftercare Pseudogout Iliotibial band syndrome affecting left lower leg Orthopedic aftercare Pseudogout Acute diverticulitis Failure of outpatient treatment Hypertension GI bleed Acute diverticulitis Crohn's disease Chief Complaint LEFT KNEE RM 1 LT KN REVISION/RX HERE LEFT KNEE Unspecified abdominal pain STOOL SAMPLE ACUTE DIVERTICULITIS THAT FAILED OUTPATIENT ATB TX ACUTE DIVERTICULITIS THAT FAILED OUTPATIENT ATB TX ACUTE DIVERTICULITIS THAT FAILED OUTPATIENT ATB TX ACUTE DIVERTICULITIS THAT FAILED OUTPATIENT ATB TX ACUTE DIVERTICULITIS THAT FAILED OUTPATIENT ATB TX RECURRENT DIVERTICULITIS Hospital FU EORDER left leg cap endo Reason for Visit Iliotibial band synd olimpia affecting left lower leg Orthopedic aftercare Pseudogout Iliotibial band syndrome affecting left lower leg Orthopedic aftercare Pseudogout Acute diverticulitis Failure of outpatient treatment Hypertension GI bleed Acute diverticulitis Crohn's disease Crohn's disease History of partial knee replacement Iliotibial band syndrome affecting left lower leg Pseudogout Psoriatic arthritis Chief Complaint LUMBER SPINE Room 2 Fall LUMBAR SPINE RM 3 LEFT KNEE Room 2 PREOP 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 left knee LT KN REVISION/RX HERE Reason for Visit S/P lumbar fusion Trochanteric bursitis of left hip S/P lumbar fusion Status post left partial knee replacement Trochanteric bursitis of left hip History of arthroplasty of knee Internal derangement of knee joint Pseudogout Orthopedic aftercare Chief Complaint Admit Date EAR PAIN June 24, 2024 9 :20am Diverticulitis August 12, 2024 3 :25pm Chief Complaint Admit Date Diverticulitis August 12, 2024 3 :25pm 3 M FU October 28, 2024 8:50 am Reason for Visit Admit Date Crohn's disease October 28, 2024 8:50 am Additional Source Comments INFORMATION SOURCE (unrecogn ized section and content) DATE CREATED AUTHOR 01/16/2018 [facility] DATE CREATED AUTHOR AUTHOR'S ORGANIZ ATION 01/16/2018 [facility] DATE CREATED AUTHOR AUTHOR'S ORGANIZ ATION 01/19/2018 [facility] DATE CREATED AUTHOR AUTHOR'S ORGANIZ ATION 07/11/2019 [facility] DATE CREATED AUTHOR AUTHOR'S ORGANIZ ATION 10/06/2021 [facility] DATE CREATED AUTHOR AUTHOR'S ORGANIZ ATION 06/06/2022 [facility] DATE CREATED AUTHOR AUTHOR'S ORGANIZ ATION 08/23/2022 [facility] DATE CREATED AUTHOR AUTHOR'S ORGANIZ ATION 03/09/2025 [facility] Source Comments (unrecognize d section and content) In the event this informatio n is protected by the Federal Confidentiality of Alcohol and Drug Abuse Patient Records regulations: The Federal rules restrict any use of the information to criminally investigate or prosecute any alcohol or drug abuse patient.[facility] event this information is protected by the Federal Confidentiality of Alcohol and Drug Abuse Patient Records regulations: The Federal rules restrict any use of the information to criminally investigate or prosecute any alcohol or drug abuse patient.[facility] the event this information is protected by the Federal Confidentiality of Alcohol and Drug Abuse Patient Records regulations: The Federal rules restrict any use of the information to criminally investigate or prosecute any alcohol or drug abuse patient.[facility] the event this information is protected by the Federal Confidentiality of Alcohol and Drug Abuse Patient Records regulations: The Federal rules restrict any use of the information to criminally investigate or prosecute any alcohol or drug abuse patient.[facility] HospitalIn the event this information is protected by the Federal Confidentiality of Alcohol and Drug Abuse Patient Records regulations: The Federal rules restrict any use of the information to criminally investigate or prosecute any alcohol or drug abuse patient.[facility] HospitalIn the event this information is protected by the Federal Confidentiality of Alcohol and Drug Abuse Patient Records regulations: The Federal rules restrict any use of the information to criminally investigate or prosecute any alcohol or drug abuse patient.[facility] HospitalIn the event this information is protected by the Federal Confidentiality of Alcohol and Drug Abuse Patient Records regulations: The Federal rules restrict any use of the information to criminally investigate or prosecute any alcohol or drug abuse patient.[facility] HospitalIn the event this information is protected by the Federal Confidentiality of Alcohol and Drug Abuse Patient Records regulations: The Federal rules restrict any use of the information to criminally investigate or prosecute any alcohol or drug abuse patient.[facility] HospitalIn the event this information is protected by the Federal Confidentiality of Alcohol and Drug Abuse Patient Records regulations: The Federal rules restrict any use of the information to criminally investigate or prosecute any alcohol or drug abuse patient.[facility] Reason for Visit (unrecogniz ed section and content) Reason Comments Patient Question Reason Comments appointment conflict Reason Comments Established Patient Pain Swelling Specialty Diagnoses / Procedures Referred By Rigo t Referred To Contact [facility] Diagnoses 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, initial encounter (HCC) Pain due to total left knee replacement, initial encounter ([facility] Procedures CONSULT TO PHYSICAL THERAPY PHYSICAL THERAPY EVALUATION HIGH COMPLEX 45 MINS Jesus Alberto Harris APRN.[facility] [address] [address] [facility] [place] [address] Referral ID Status Reason Start Date Expiration Date Visits Requested Visits Authorized [id number] Authorized Auto-Generat ed Referral 2 07/23/2022 99 99 Reason Comments Patient Question Right Big toe Reason Comments Schedule Surgery Care Teams (unrecognized sec tion and content) Lift Builder Whole Relationship Specialty Start Date End Date Kris Bernardo MD [address] [place], [place] [id number] PCP - General Family Medicine 07/27/20 Lift Builder Whole Relationship Specialty Start Date End Date Kris Bernardo MD [address] [facility] [place] [place] [id number] PCP - General Family Medicine 07/27/20 Lift Builder Whole Relationship Specialty Start Date End Date Kris Bernardo MD [address] [facility], [place] [id number] PCP - General Family Medicine 07/27/20 Lift Builder Whole Relationship Specialty Start Date End Date Kris Bernardo MD [address] [facility] [place] [address] PCP - General Family Medicine 07/27/20 Lift Builder Whole Relationship Specialty Start Date End Date Kris Bernardo MD [address] [facility] [place] [address] PCP - General Family Medicine 07/27/20 Lift Builder Whole Relationship Specialty Start Date End Date Kris Bernardo MD [address] [facility], [place] [address] PCP - General Family Medicine 07/27/20 Lift Builder Whole Relationship Specialty Start Date End Date Kris Bernardo MD [address] [facility] [place] [address] PCP - General Family Medicine 07/27/20 Team Status: Active Member Role Status Dates [facility] Family Provider Active Dr. Hernandez Mosley MD Primary Care Provider Active Team Status: Inactive Member Role Status Dates Dr. Hernandez Mosley MD Primary Care Provider, Referring Provider Active Dr. Reyes Damian DO Attending Provider Active Team Status: Inactive Member Role Status Dates Dr. Hernandez Mosley MD Primary Care Provider Active Dr. Vincent Villagomez MD Attending Provider Active Team Status: Inactive Member Role Status Dates Dr. Hernandez Mosley MD Primary Care Provider Active Samantha Grider DEPUTY BUILDING GUARD, DEPUTY BUILDING GUARD-C Attending Provider, Referring Pr ovider Active Team Status: Inactive Member Role Status Dates Dr. Hernandez Mosley MD Primary Care Provider, Attending Provider Active Lift Builder Whole Relationship Specialty Start Date End Date Hernandez Mosley Chi [address] [facility] [address] [place], [place] [id number] PCP - General Gerontology 05/23/22 Team Status: Inactive Member Role Status Dates Dr. Hernandez Mosley MD Primary Care Provider Active Dr. Reyes Damian DO Attending Provider, Referring P rovider Active Dr. Kris Roach MD Other Provider Active Team Status: Active Member Role Status Dates Dr. Hernandez Mosley MD Primary Care Provider, Attending Provider Active Team Status: Inactive Member Role Status Dates Dr. Hernandez Mosley MD Primary Care Provi gavi, Attending Provider, Referring Provider Active Team Status: Active Member Role Status Dates Dr. Hernandez Mosley MD Primary Care Provider Active Dr. Reyes Damian DO Admit Provider, A ttending Provider, Referring Provider, Other Provider Active Dr. Amandeep Madrigal MD Other Provider Active Team Status: Active Member Role Status Dates Dr. Hernandez Mosley MD Primary Care Provider Active Dr. Reyes Damian DO Admit Provider, R eferring Provider, Other Provider Active Dr. Amandeep Madrigal MD Other Provider Active Dr. Kris Jones MD Attending Provider Active Team Status: Active Member Role Status Dates Dr. Hernandez Mosley MD Primary Care Provider Active Dr. Reyes Damian DO Admit Provider, R eferring Provider, Other Provider Active Dr. Amandeep Madrigal MD Other Provider Active Dr. Jesse Keller MD Attending Provider, Other Provider Active Team Status: Active Member Role Status Dates Dr. Hernandez Mosley MD Primary Care Provider Active Dr. Reyes Damian DO Admit Provider, R eferring Provider, Other Provider Active Dr. Amandeep Madrigal MD Other Provider Active Dr. Lydia Hernández MD Attending Provider, Other Prov ider Active Team Status: Active Member Role Status Dates Dr. Hernandez Mosley MD Primary Care Provider Active Dr. Reyes Damian DO Admit Provider, R eferring Provider, Other Provider Active Dr. Amandeep Madrigal MD Other Provider Active Dr. Lydia Hernández MD Other Provider Active Dr. Liza Wolfe MD Attending Provider Active Team Status: Active Member Role Status Dates Dr. Hernandez Mosley MD Primary Care Provider Active Dr. Reyes Damian DO Admit Provider, A ttending Provider, Referring Provider, Other Provider Active Dr. Amandeep Madrigal MD Other Provider Active Dr. Lydia Hernández MD Other Provider Active Team Status: Inactive Member Role Status Dates Dr. Hernandez Molsey MD Primary Care Provider Active Dr. Reyes Damian DO Admit Provider, A ttending Provider, Referring Provider Active Dr. Amandeep Madrigal MD Other Provider Active Dr. Lydia Hernández MD Other Provider Active Team Status: Inactive Member Role Status Dates Dr. Hernandez Mosley MD Primary Care Provider Active Dr. Eder Lamas DO Emergency Provider Active Lift Builder Whole Relationship Specialty Start Date End Date Kris Bernardo MD [address] [place] [id number] PCP - General Family Medicine 07/27/20 05/22/22 Team Status: Inactive Member Role Status Dates Dr. Hernandez Mosley MD Primary Care Provider, Referring Provider Active Dr. Shabbir Birch DO Attending Provider Active Team Status: Active Member Role Status Dates Dr. Hernandez Mosley MD Primary Care Provider Active Dr. Shabbir Birch DO Attending Provid er, Referring Provider, Other Provider Active Team Status: Inactive Member Role Status Dates Dr. Hernandez Mosley MD Primary Care Provider Active Dr. Eder Lamas DO Attending Provider, Emergency Provide r Active Team Status: Inactive Member Role Status Dates Dr. Hernandez Mosley MD Primary Care Provider Active Dr. Shabbir Birch DO Attending Provider, Referring Provider Active Team Status: Active Member Role Status Dates Dr. Hernandez Mosley MD Primary Care Provider Active Dr. Vincent Villagomez MD Attending Provider Active Dr. Shabbir Birch DO Referring Provider Active Team Status: Active Member Role Status Dates Dr. Hernandez Mosley MD Primary Care Provider Active Dr. Shabbir Birch DO Attending Provider, Referring Provider Active Team Status: Active Member Role Status Dates Dr. Hernandez Mosley MD Primary Care Provi gavi, Attending Provider, Referring Provider Active Team Status: Active Member Role Status Dates Dr. Hernandez Mosley MD Primary Care Provider Active Dr. Michael Lyman DO Emergency Provider Active Dr. Jorge L May DO Admit Provider, Attending Pr ovider Active Team Status: Active Member Role Status Dates Dr. Hernandez Mosley MD Primary Care Provider Active Dr. Michael Lyman DO Emergency Provider Active Dr. Jorge L May DO Admit Provider , Attending Provider, Other Provider Active Team Status: Active Member Role Status Dates Dr. Hernandez Mosley MD Primary Care Provider Active Dr. Michael Lyman , Emergency Provider Active Dr. Jorge L May , DO Admit Provider, Other Provid er Active Dr. Jessica Quintero , DO Other Provider Active Dr. Stanley Godwin DO Attending Provider Active Team Status: Active Member Role Status Dates Dr. Hernandez Mosley MD Primary Care Provider Active Dr. Stanley Godwin DO Attending Provider Active Team Status: Active Member Role Status Dates Dr. Hernandez Mosley MD Primary Care Provider Active Dr. Michael Lyman , DO Emergency Provider Active Dr. Jorge L May , DO Admit Provider, Other Provid er Active Dr. Sherif Benson MD Attending Provider, Other Provi gavi Active Dr. Jessica Quintero , DO Other Provider Active Team Status: Inactive Member Role Status Dates Dr. Hernandez Mosley MD Primary Care Provider Active Dr. Michael Lyman , Emergency Provider Active Dr. Jorge L May , DO Admit Provider, Other Provid er Active Dr. Sherif Benson MD Attending Provider Active Dr. Jessica Quintero , Other Provider Active Team Status: Active Member Role Status Dates Dr. Hernandez Mosley MD Primary Care Provider Active Dr. Michael Lyman , Emergency Provider Active Dr. Jorge L May , DO Admit Provider, Other Provid er Active Dr. Jessica Quintero , Other Provider Active Dr. Stanley Godwin DO Attending Provider Active Dr. Sherif Benson MD Referring Provider Active Team Status: Active Member Role Status Dates Dr. Hernandez Mosley MD Primary Care Provider Active Dr. Stanley Godwin DO Attending Provider Active Dr. Sherif Benson MD Referring Provider Active Team Status: Inactive Member Role Status Dates Dr. Hernandez Mosley MD Primary Care Provider, Referring Provider Active Dr. Rian Fierro MD Attending Provider Active Team Status: Inactive Member Role Status Dates Dr. Hernandez Mosley MD Primary Care Provider, Referring Provider Active Dr. Stanley Godwin DO Attending Provider Active Team Status: Inactive Member Role Status Dates Dr. Hernandez Mosley MD Primary Care Provider Active Dr. Stanley Godwin DO Attending Provider, Referring Provider Active Team Status: Active Member Role Status Dates Dr. Hernandez Mosley MD Primary Care Provider Active Dr. Stanley Godwin DO Attending Provider, Referring Provider Active Team Status: Active Member Role Status Dates Dr. Hernandez Mosley MD Primary Care Provider, Referring Provider Active Dr. Stanley Godwin DO Attending Provider, Other Prov ider Active Team Status: Active Member Role Status Dates Dr. Hernandez Mosley MD Primary Care Provider Active Team Status: Inactive Member Role Status Dates Dr. Hernandez Mosley MD Primary Care Provider Active Start: June 24, 2024 End: June 24, 2024 Dr. Hernandez Mosley MD Referring Provider Active Start: June 24, 2024 End: June 24, 2024 Gautam Vale PA, PA Attending Provider Active Start: June 24, 2024 End: June 24, 2024 Team Status: Inactive Member Role Status Dates Dr. Hernandez Mosley MD Primary Care Provider Active Start: August 12, 2024 End: August 12, 2024 Dr. Stanley Godwin DO Attending Provider Active Start: August 12, 2024 End: August 12, 2024 Dr. Stanley Godwin DO Referring Provider Active Start: August 12, 2024 End: August 12, 2024 Team Status: Inactive Member Role Status Dates Dr. Hernandez Mosley MD Primary Care Provider Active Start: October 07, 2024 End: October 07, 2024 Dr. Montana Quiñonez MD Attending Provider Active Start: October 07, 2024 End: October 07, 2024 Dr. Montana Quiñonez MD Referring Provider Active Start: October 07, 2024 End: October 07, 2024 Team Status: Inactive Member Role Status Dates Dr. Hernandez Mosley MD Primary Care Provider Active Start: October 28, 2024 End: October 28, 2024 Dr. Hernandez Mosley MD Referring Provider Active Start: October 28, 2024 End: October 28, 2024 Dr. Stanley Godwin DO Attending Provider Active Start: October 28, 2024 End: October 28, 2024 Team Status: Inactive Member Role Status Dates Dr. Hernandez Mosley MD Primary Care Provider Active Start: October 28, 2024 End: October 28, 2024 Dr. Stanley Godwin DO Attending Provider Active Start: October 28, 2024 End: October 28, 2024 Dr. Stanley Godwin DO Referring Provider Active Start: October 28, 2024 End: October 28, 2024 Team Status: Inactive Member Role Status Dates Dr. Hernandez Mosley MD Primary Care Provider Active Start: December 02, 2024 End: December 02, 2024 Dr. Hernandez Mosley MD Attending Provider Active Start: December 02, 2024 End: December 02, 2024 Dr. Hernandez Mosley MD Referring Provider Active Start: December 02, 2024 End: December 02, 2024 FOR RECORDS PERTAINING TO PATIENTS WHO ARE [...] BE BASED ON THE PRIMARY CLINICAL RECORDS. [facility]. provides no warranty or guarantee of the accuracy or completeness of information in this document.
[2025-03-10] MEDS: Lactated Ringers 1,000 ML 15 ML IV (07:42)
--- NOTE | 2025-03-10 08:02 | PCM.PRE.AN2 ---
ASA Classification* ASA Classification ASA Classification: 2 Assessment & Plan Anesthesia* Anesthesia Assessment Anesthesia Assessment: Discussed sedation and/or anesthesia options, risks, benefits, and alternatives with patient/parents/legal guardian/POA. Questions invited. The patient/parents/legal guardian/POA seems to understand and agrees to proceed with anesthesia plan. Reviewed the physical assessment, medical history, allergy history and patient home medications list prior to surgery/procedure/anesthetic and documented any changes. Performed airway and anesthesia risk assessments. Anesthesia Type Anesthesia Type: MAC History Source History Obtained from:: Patient and Chart Anesthesia Focused Assessment* Temperature: 97.0 F Pulse Rate: 73 Blood Pressure: 108/77 Respiratory Rate: 18 Pulse Ox: 99 Oxygen Delivery Method: Room Air Airway Assessment Mouth opens: 2 cm Mallampati Score: II Teeth Condition: Intact Neck Range of motion (ROM): Full ROM Labs Anesthesia Preop lab: CBC WBC 11.0 K/mm3 (4.4-11.0) 12/02/24 13:51 12/02/24 RBC 4.45 M/mm3 (4.2-5.4) 12/02/24 13:51 12/02/24 Hgb 13.7 g/dL (12.0-15.0) 12/02/24 13:51 12/02/24 Hct 41.5 % (37-47) 12/02/24 13:51 12/02/24 Plt Count 328 K/mm3 (150-450) 12/02/24 13:51 12/02/24 CHEMISTRY Potassium 3.7 mmol/L (3.3-5.1) 12/02/24 13:51 12/02/24 Sodium 137 mmol/L (133-145) 12/02/24 13:51 12/02/24 Magnesium 2.3 mg/dL (1.6-2.6) 09/24/23 05:20 09/24/23 Phosphorus 3.3 mg/dL (2.5-4.9) 09/24/23 05:20 09/24/23 BUN 16 mg/dL (4-19) 12/02/24 13:51 12/02/24 Creatinine 0.82 mg/dL (0.70-1.20) 12/02/24 13:51 12/02/24 Glucose 81 mg/dL (70-99) 12/02/24 13:51 12/02/24 POC Glucose 119 mg/dL (74-106) H 06/21/23 09:50 06/21/23 TSH 2.390 uIU/mL (0.300-4.200) 12/02/24 13:51 12/02/24 COAG PT 12.6 SECONDS (11.7-14.9) 06/19/23 12:39 06/19/23 Pre-Assessment Diagnosis/Proposed Procedure Planned Operative Procedure(s): RIGHT LUMBAR TRANSFORAMINAL EPIDURAL STEROID INJECTION L4 L5 S1 Anesthesia History Anesthesia History - clinic administrator: Anesthesia History - clinic administrator Hx Hospitalization No 03/06/25 11:47 Any Problems With Anesthesia No 03/06/25 11:47 Cholinesterase deficiency No 03/06/25 11:47 You/Your Family Experience No 03/06/25 11:47 fever (hyperthermia) with Relationship Recent Exposure to Contagious No 03/10/25 07:32 Disease Does patient have nerve No 03/06/25 11:47 stimulator Patient instructed to have device shut off --Does patient have Pacemaker No 03/10/25 07:32 or ICD? When Was Last Pacemaker Check QUESTION #4 FULL TEXT: You/Your Family Experience fever (hyperthermia) with Anesthesia Any additional information?: No Last Oral Intake Last Oral intake: Last Oral Intake NPO since 20:00 03/10/25 07:32 Meds taken in AM with sips of water? Meds patient instructed to take am of surgery Any additional information?: No PONV PONV - clinic administrator: PONV - clinic administrator Female Yes 03/06/25 11:47 HX of Motion Sickness No 03/06/25 11:47 HX of N/V After Surgery No 03/06/25 11:47 Non-Smoker Yes 03/06/25 11:47 Duration of Surgery greater No 03/06/25 11:47 than 60 minutes Number of Risk Factors 2 03/06/25 11:47 PONV Score Moderate Risk 03/06/25 11:47 Any additional information?: No Height & Weight Height & Weight: Anesthesia: Height & Weight Height 5 ft 4 in 03/10/25 07:32 Weight: 76 kg 03/10/25 07:32 Body Mass Index (BMI) 28.8 08/18/25 07:32 Respiratory Assessment Respiratory Assessment - clinic administrator: Respiratory Tract Infection Hx - clinic administrator Hx Respiratory Tract Infection No 03/06/25 11:47 Any additional information?: No STOP Sleep Apnea STOP Sleep Apnea - clinic administrator: STOP Sleep Apnea - clinic administrator Hx Hypertension Yes: CONTROLLED WITH MED 03/06/25 11:47 Hx Sleep Apnea No 03/06/25 11:47 CPAP Yes 10/07/24 12:04 BIPAP Do you snore loudly (louder No 03/06/25 11:47 than talking or can be heard Do you often feel tired/ Yes 03/06/25 11:47 fatigued/ sleepy during daytime? Has anyone observed you stop No 03/06/25 11:47 breathing during sleep? STOP Results Positive 03/06/25 11:47 QUESTION #5 FULL TEXT : Do you snore loudly (louder than talking or can be heard through closed doors)? 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 Specify any problems Hx of Preganancy in last 3 No 03/06/25 11:47 Months Nurse Filling Out Transfusion DSCHRIBER 03/06/25 11:47 & Questions: Date: 03/06/25 03/06/25 11:47 Time: 11:49 03/06/25 11:47 Patient unable to answer at this time (ie. confused, unrespo Any additional information?: No /Reproduction History /Reproductive History - clinic administrator: /Reproductive Hx- clinic administrator Hx Now Gestational Age (in weeks): EDC: Hx Hx Para Hx Section SAB No 03/06/25 11:47 Any additional information?: No Active Medications Active Medications: Current Medications Generic Name Dose Route Start Last Admin Trade Name Freq PRN Reason Stop Dose Admin Lactated Ringer's 1,000 mls @ 15 mls/hr 03/10/25 07:30 03/10/25 07:42 IV 15 mls/hr .Q48H SARAH Administration PFS Medical History (Updated 03/06/25 @ 11:52 by Roma Carrera) Pain History of Crohn's disease Chronic pain GERD (gastroesophageal reflux disease) History of steroid therapy Wears glasses Post-menopausal Anxiety Alcohol use Hx of psoriatic arthritis Restless legs Back pain History of diverticulitis Hx of peptic ulcer Former smoker History of pain when walking Hypertension Osteoarthritis Home Medications ?Medication ?Instructions ?Recorded ?Last Taken ?Type venlafaxine 37.5 mg tablet 75 mg PO QHS depression 03/20/16 03/09/25 History pantoprazole 40 mg tablet,delayed 40 mg PO DAILY GERD 08/09/22 03/10/25 History release ramipril 10 mg capsule 10 mg PO BID HEART 08/09/22 03/09/25 History ropinirole 0.25 mg tablet 0.5 mg PO QHS RESTLESS LEGS 08/09/22 03/09/25 History furosemide 20 mg tablet 20 mg PO DAILY 01/12/23 03/09/25 History acidophilus 25 million 2 tab PO BID #0 tabs 09/26/23 03/09/25 Rx cell-pectin, citrus 100 mg tablet tramadol 50 mg tablet 50 - 100 mg (1 - 2 x 50 mg) PO Q8H 09/26/23 03/09/25 Rx PRN pain #10 tabs amlodipine 5 mg tablet (Norvasc) 5 mg PO QHS 11/09/23 03/09/25 History ustekinumab 90 mg/mL subcutaneous 90 mg subcut Q8W #1 mL 03/11/24 Unknown Rx syringe (Stelara) hyoscyamine sulfate 0.125 mg tablet 0.125 mg PO BID-QID PRN dyspepsia 08/13/24 Unknown Rx #30 tabs dicyclomine 20 mg tablet 20 mg PO TID PRN abdominal pain 10/04/24 Unknown History duloxetine 30 mg capsule,delayed 30 mg PO DAILY #30 caps 11/18/24 03/09/25 Rx release Allergy/AdvReac Type Severity Reaction Status Date / Time adhesive tape Allergy Severe blistering Verified 03/10/25 07:50 bee venom protein (honey bee) Allergy Swelling Verified 03/10/25 07:41 Family History Other Breast cancer CAD (coronary artery disease) Heart disease Hypertension Surgical History Hx of colonoscopy History of lumbar spinal fusion Status post left partial knee replacement History of total right knee replacement History of appendectomy History of hysterectomy History of section Social History household members: spouse Smoking Status: Former smoker alcohol intake: current alcohol intake frequency: holidays/special occasions only substance use type: does not use what type of physical activity do you participate in: walking frequency: 1-2 times per week Prior Cardiac Testing/Procedures Prior Cardiac Testing/Procedures: Echocardiogram and Stress Test Review of Systems (Anesthesia) ROS Narrative System reviewed and no additional complaints, except as documented.
--- NOTE | 2025-03-10 08:40 | RAD_ITS ---
PROCEDURE: LUMBAR SPINE 2 OR 3 VIEWS 03/10/2025 REASON FOR EXAM: L4 L5 S1 TECHNIQUE: LUMBAR SPINE 2 OR 3 VIEWS FINDINGS: Intraoperative fluoroscopy of the lumbar spine was performed. 5.88 mGy. 15 seconds of fluoroscopic time. See procedure report for full details. RAD/Lumbar Spine 2 or 3 Views IMPRESSION: As above. Reading Location: [id number]
[2025-03-10] MEDS: fentaNYL 100 MCG/2 ML Ampul IV (08:43)
[2025-03-10] MEDS: Lidocaine 1% (5 ml sdv) 5 ML Vial (08:44)
--- NOTE | 2025-03-10 08:48 | PCM.POST.ANE ---
Anesthesia: Postop Eval I Current Vital Signs Temperature: 97.2 F Pulse Rate: 80 Blood Pressure: 140/75 Respiratory Rate: 20 Pulse Ox: 99 Assessment Airway patent: Yes Spontaneous unlabored respirations: Yes nausea: No Vomiting: No Anesthesia Complication: No Fluid Hydration Crystalloid volume administer (ml): 200 Total IV fluid infused: 200 Progress Note Anesthesia document: Postop Eval 1 completed: Yes
--- NOTE | 2025-03-10 08:49 | OP.PCM_ITS ---
Operative Report (Standard) Operative Information Date of Procedure: 03/10/25 Pre-Operative Diagnosis: Lumbosacral radiculopathy, lumbosacral spinal stenosis, lumbosacral degenerative disc disease Post-Operative Diagnosis: Lumbosacral radiculopathy, lumbosacral spinal stenosis, lumbosacral degenerative disc disease Surgery/Procedure Performed: Right sided lumbar transforaminal epidural steroid injection L4-5, L5-S1 under fluoroscopic guidance business analyst: No Type of Anesthesia: Local MAC RN Documented Start/Stop Times: Operation Date: 03/10/25 08:50 Case Time Into Pre-Op 03/10/25 07:16 Anesthesia Start 03/10/25 08:34 Into Room 03/10/25 08:34 Procedure Start 03/10/25 08:42 Procedure End 03/10/25 08:45 Anesthesia End 03/10/25 08:48 Out of Room 03/10/25 08:48 Procedure Start Time: 08:49 Procedure Stop Time: 08:49 Select all DRAINS/GRAFTS/IMPLANTS that apply: None Estimated Blood Loss: 1 Specimen collected: No Description of surgery: DESCRIPTION OF PROCEDURE: History and physical of today was reviewed. Risks and benefits of the procedure were explained. The patient understood and agreed to proceed. Informed consent was obtained. IV inserted per routine protocol. The patient was taken to the operating room and placed in the prone position with a pillow positioned underneath the abdomen. The right side of the lower back was prepped and draped in a sterile fashion using iodine x3. Under fluoroscopy guidance on oblique view, the L4 through S1 vertebral bodies were visualized. The skin and subcutaneous tissue was anesthetized with approximately 5 mL of 1% lidocaine using a 25-gauge regular needle. Under direct visualization with fluoroscopy at approximately 35-degree angle, starting on the right L4, ending on the right L5, using a 22-gauge 5-inch spinal needle, the needle was advanced via the skin. The tip of the needle was maneuvered and directed towards the inferior and medial gutter of the transverse process at the superiormost aspect of the neural foramen. Once the tip of the needle was at the vicinity of the foramen, after negative aspiration for blood or CSF, a total of 1 mL of contrast was injected in divided doses between both levels to confirm correct placement of the needle as well as medial spread. The confirmation was obtained on AP as well as lateral view. After repeated negative aspiration and confirmation on AP as well as lateral view, a total of 6 mL of preservative-free 0.25% Marcaine with 80 mg of Depo-Medrol was injected in divided doses between both levels. The needles were then removed intact. The patient experienced no sign or symptoms of intrathecal or intravascular injection. The patient experienced no paresthesia. The procedure was completed without any apparent difficulty or any complications. The patient appeared to tolerate it well. Assessment and plan: This is a 65-year-old female with lumbosacral radiculopathy, lumbosacral spinal stenosis, lumbosacral degenerative disc disease status post right-sided lumbar transforaminal epidural steroid injection L4-5, L5-S1 under fluoroscopic guidance, patient will continue her current medications, patient will follow-up in approximately 2 weeks for reevaluation. Surgical Findings: 0 Complications Complications: No Admit VTE Documentation VTE Present on Admission: No VTE Mechan Device Prophylaxis: None VTE Pharm Prophylaxis ordered?: No
--- NOTE | 2025-03-10 13:43 | POSTOPAN2_ITS ---
Anesthesia Postop Eval I Sum Postop Eval Completion status Anesthesia document: Postop Eval 1 completed: Yes Anesthesia Postop Eval I Summary Anesthesia Postop Eval I Summary: Anesthesia Postop Eval I: Assessment Summary Airway patent Yes 03/10/25 08:48 SEED [employer]ILL SUPERINTENDENT.CSIR Spontaneous unlabored Yes 03/10/25 08:48 SEED MILL SUPERINTENDENT.CSIR respirations Mental status nausea No 03/10/25 08:48 SEED MILL SUPERINTENDENT.CSIR Vomiting No 03/10/25 08:48 SEED MILL SUPERINTENDENT.CSIR Anesthesia Postop Eval I: Fluid Summary Crystalloid volume administer 200 03/10/25 08:48 SEED MILL SUPERINTENDENT.CSIR (ml) Colloids volume administered ( ml) Blood Product volume administered (ml) Total IV fluid infused 200 03/10/25 08:48 SEED MILL SUPERINTENDENT.CSIR Anesthesia Postop Eval I: Summary Notes Anesthesia Complication No 03/10/25 08:48 SEED MILL SUPERINTENDENT.CSIR Anesthesia Complication Comment: Post-operative progress note Anesthesia: Postop Eval II Evaluation Mental status: Awake and Calm Pain Level: 1 nausea: No Vomiting: No Complications Anesthesia Complication: No
--- NOTE | 2025-03-10 13:43 | PCM.POSTANE2 ---
Anesthesia Postop Eval I Sum Postop Eval Completion status Anesthesia document: Postop Eval 1 completed: Yes Anesthesia Postop Eval I Summary Anesthesia Postop Eval I Summary: Anesthesia Postop Eval I: Assessment Summary Airway patent Yes 03/10/25 08:48 OUT OF TOWN COLLECTION CLERK.CSIR Spontaneous unlabored Yes 03/10/25 08:48 OUT OF TOWN COLLECTION CLERK.CSIR respirations Mental status nausea No 03/10/25 08:48 OUT OF TOWN COLLECTION CLERK.CSIR Vomiting No 03/10/25 08:48 OUT OF TOWN COLLECTION CLERK.CSIR Anesthesia Postop Eval I: Fluid Summary Crystalloid volume administer 200 03/10/25 08:48 OUT OF TOWN COLLECTION CLERK.CSIR (ml) Colloids volume administered ( ml) Blood Product volume administered (ml) Total IV fluid infused 200 03/10/25 08:48 OUT OF TOWN COLLECTION CLERK.CSIR Anesthesia Postop Eval I: Summary Notes Anesthesia Complication No 03/10/25 08:48 OUT OF TOWN COLLECTION CLERK.CSIR Anesthesia Complication Comment: Post-operative progress note Anesthesia: Postop Eval II Evaluation Mental status: Awake and Calm Pain Level: 1 nausea: No Vomiting: No Complications Anesthesia Complication: No
== END 2025-03-10 09:22 | disposition home or self-care (01) ==
LOC: SDC 07:13 → AC 07:14
PROVIDERS: PCP Family Medicine Geriatric Medicine; Referring Provider Anesthesiology Pain Medicine; Visit Provider Anesthesiology Pain Medicine
PROC: 3E0S3BZ Introduction of Anesthetic Agent into Epidural Space, Percutaneous Approach (ICD-10-PCS; CPT 64484; principal; 2025-03-10 08:45)
DX: M51.17 Intervertebral disc disorders with radiculopathy, lumbosacral region (principal); L40.50 Arthropathic psoriasis, unspecified; K50.90 Crohn's disease, unspecified, without complications; M48.07 Spinal stenosis, lumbosacral region; M47.27 Other spondylosis with radiculopathy, lumbosacral region; M96.1 Postlaminectomy syndrome, not elsewhere classified; I10 Essential (primary) hypertension; F41.9 Anxiety disorder, unspecified; K21.9 Gastro-esophageal reflux disease without esophagitis; G25.81 Restless legs syndrome; G89.29 Other chronic pain; Z87.19 Personal history of other diseases of the digestive system; Z96.652 Presence of left artificial knee joint; Z79.899 Other long term (current) drug therapy; Z79.891 Long term (current) use of opiate analgesic; Z87.891 Personal history of nicotine dependence
CPT/HCPCS: 64484; 64483; 72100; J2405

== ENCOUNTER → 2025-03-18 | Outpatient (CLI) | payer MEDICARE, SELFPAY ==
[2025-03-18 11:55] LABS: CRP 4.67 mg/L (0.0-3.0)
== END | disposition home or self-care (01) ==
PROVIDERS: PCP Family Medicine Geriatric Medicine; Referring Provider Internal Medicine Gastroenterology; Visit Provider Internal Medicine Gastroenterology
DX: K50.919 Crohn's disease, unspecified, with unspecified complications (principal)
CPT/HCPCS: 36415; 85652; 86140

== ENCOUNTER 2025-03-25 14:08 | Inpatient (IN) | payer MEDICARE, SELFPAY ==
[2025-03-25] VITALS (8 sets, daily range): BP systolic 117–151; BP diastolic 56–96; PULSE 74–127; RESP 15–22; TEMP 37.1–37.7; O2SAT 93–100; BMI 28.4; BMI 27.7
--- NOTE | 2025-03-25 15:00 | ED.VIS.GI ---
HPI HPI - GI History of Present Illness Chief Complaint: Abd Pain Informant: patient Narrative Narrative: 65-year-old female presenting with diffuse lower abdominal pain worse on the right than the left that started yesterday gradually, worse today despite taking her Cipro and Flagyl, she states this started like multiple episodes of diverticulitis she has had in the past, however she followed up with GI Dr. Godwin and had scopes and was actually diagnosed with Crohn's after all of that, and is now on Stelara so she is not sure if this is diverticulitis or if this is related to Crohn's or what is going on. She states she has had a low-grade temp and felt chills, she has had severe nausea, no vomiting. Diarrhea without blood, melena, mucus but she did have tenesmus and then very little stool came out. That started yesterday as well. She states the pain really has become severe. [facility] Medical History Pain History of Crohn's disease Chronic pain GERD (gastroesophageal reflux disease) History of steroid therapy Wears glasses Post-menopausal Anxiety Alcohol use Hx of psoriatic arthritis Restless legs Back pain History of diverticulitis Hx of peptic ulcer Former smoker History of pain when walking Hypertension Osteoarthritis Home Medications ?Medication ?Instructions ?Recorded ?Last Taken ?Type venlafaxine 37.5 mg tablet 75 mg PO QHS depression 03/20/16 03/09/25 History pantoprazole 40 mg tablet,delayed 40 mg PO DAILY GERD 08/09/22 03/10/25 History release ramipril 10 mg capsule 10 mg PO BID HEART 08/09/22 03/09/25 History ropinirole 0.25 mg tablet 0.5 mg PO QHS RESTLESS LEGS 08/09/22 03/09/25 History furosemide 20 mg tablet 20 mg PO DAILY 01/12/23 03/09/25 History acidophilus 25 million 2 tab PO BID #0 tabs 09/26/23 03/09/25 Rx cell-pectin, citrus 100 mg tablet tramadol 50 mg tablet 50 - 100 mg (1 - 2 x 50 mg) PO Q8H 09/26/23 03/09/25 Rx PRN pain #10 tabs amlodipine 5 mg tablet (Norvasc) 5 mg PO QHS 11/09/23 03/09/25 History ustekinumab 90 mg/mL subcutaneous 90 mg subcut Q8W #1 mL 03/11/24 Unknown Rx syringe (Stelara) dicyclomine 20 mg tablet 20 mg PO TID PRN abdominal pain 10/04/24 Unknown History duloxetine 30 mg capsule,delayed 30 mg PO DAILY #30 caps 11/18/24 03/09/25 Rx release tizanidine 4 mg tablet 4 mg PO BID PRN PRN muscle spasm 03/25/25 Unknown History Allergy/AdvReac Type Severity Reaction Status Date / Time adhesive tape Allergy Severe blistering Verified 03/25/25 14:10 bee venom protein (honey bee) Allergy Swelling Verified 03/25/25 14:10 Family History Other Breast cancer CAD (coronary artery disease) Heart disease Hypertension Surgical History Hx of colonoscopy History of lumbar spinal fusion Status post left partial knee replacement History of total right knee replacement History of appendectomy History of hysterectomy History of section Social History household members: spouse Smoking Status: Former smoker alcohol intake: current alcohol intake frequency: holidays/special occasions only substance use type: does not use what type of physical activity do you participate in: walking frequency: 1-2 times per week ROS ROS ED Constitutional Constitutional ED: Denies chills or fever(s) Eyes Eyes: Denies change in vision or diplopia ENT ENT ED: Denies rhinorrhea or sore throat Cardiovascular Cardiovascular: Denies chest pain or palpitations Respiratory/Chest Respiratory/Chest: Denies cough or dyspnea Gastrointestinal Gastrointestinal: Reports abdominal pain, diarrhea, loose stools, nausea and tenesmus; Denies hematochezia, melena, rectal bleeding or vomiting Genitourinary Genitourinary ED: Denies dysuria or hematuria Musculoskeletal Musculoskeletal: Reports back pain and other Details: Lower abdominal pain radiates into low back at times ; Denies neck pain Integumentary Denies abscess or rash Neurologic Neurologic: Denies headache(s), paresthesias or weakness Psychiatric Psychiatric: Denies anxiety or suicidal thoughts EXAM Physical Exam Const Vital Signs: 03/25/25 14:09 03/25/25 15:08 03/25/25 16:00 Temperature 99.9 F H Temperature Source Oral Pulse Rate 127 H 85 96 Respiratory Rate 18 18 18 Blood Pressure 123/79 H 151/91 H 148/78 H Blood Pressure Mean 93 111 101 Pulse Ox 98 99 100 Oxygen Delivery Method Room Air Room Air Room Air 03/25/25 17:00 03/25/25 18:00 Temperature Temperature Source Pulse Rate 96 74 Respiratory Rate 22 H 15 Blood Pressure 149/84 H 117/56 L Blood Pressure Mean 105 76 Pulse Ox 97 93 Oxygen Delivery Method Room Air Room Air Positive well nourished and well developed General Appearance ED: well developed and NAD HEENT Reports moist mucous membranes normocephalic and atraumatic Eyes PERRL and EOMs intact bilaterally Neck full ROM and supple Resp normal respiratory effort and clear to auscultation bilaterally Cardio regular rate, regular rhythm and no murmurs GI GI Narrative: Abdominal distention. Quite tender moderate-severe throughout the lower abdomen, no rebound tenderness, no other abdominal tenderness including upper abdomen. No guarding. Auscultation: normoactive bowel sounds Palpation: soft Back/Spine no CVA tenderness General Back: other FROM Extremity normal to inspection General Extremety ED: Negative for edema, pulses abnormal or tenderness General Extremity: Negative for edema or pulses abnormal Neuro oriented x3, CN's II-XII intact bilaterally and no sensory deficits noted Sensorium / Orientation: awake and alert Motor Exam: strength 5/5 throughout Skin no rashes or lesions noted and no wounds MDM MDM MDM Narrative Medical decision making narrative: Differential includes diverticulitis but also complications of Crohn's disease including bowel obstruction, abscess, Crohn's flare. CT indicated. Labs showed leukocytosis 17.4 with a left shift no bands, rest of her labs are normal and CT shows what appears to be uncomplicated diverticulitis, I reviewed the images and report which I agree with. Patient needed a couple doses of pain medication here, gave her a dose of IV Zosyn as well. I offered admission given her leukocytosis and the amount of pain that she has been in; she accepts as even after the second dose of pain medication she really is uncomfortable. I think continuing IV antibiotics inpatient is reasonable. Discussed with hospitalist. History & Record Review Discussion w/independent historian: Patient Lab Data Attestation: I reviewed the patient's lab results. Labs: Laboratory Results - last 24 hr 03/25/25 03/25/25 14:55 16:24 WBC 17.4 H RBC 4.60 Hgb 14.4 Hct 42.0 MCV 91.3 MCH 31.3 MCHC 34.3 RDW Std Deviation 41.3 RDW Coeff of Caity 12.5 Plt Count 345 MPV 9.9 Immature Gran % (Auto) 0.600 Neut % (Auto) 80.0 H Lymph % (Auto) 7.6 L [place] % (Auto) 11.4 H Eos % (Auto) 0.1 Baso % (Auto) 0.3 Absolute Neuts (auto) 13.9 H Absolute Lymphs (auto) 1.32 Nucleated RBC % 0 Sodium 134 Potassium 3.7 Chloride 94 L Carbon Dioxide 26.3 Anion Gap 14 BUN 11 Creatinine 0.89 Estim Creat Clear Calc 64.24 Est GFR (MDRD) Non-Af 73 BUN/Creatinine Ratio 12.8 Glucose 120 H Calcium 9.5 Total Bilirubin 0.88 AST 20 ALT 26 Alkaline Phosphatase 110 H Total Protein 7.5 Albumin 4.5 Globulin 2.9 Albumin/Globulin Ratio 1.5 Lipase 32 Urine Color Yellow Urine Clarity Clear Urine pH 7.0 Ur Specific [place] 1.005 Urine Protein Negative Urine Glucose (UA) Normal Urine Ketones Negative Urine Occult Blood Negative Urine Nitrite Negative Urine Bilirubin Negative Urine Urobilinogen Normal Ur Leukocyte Esterase Negative Radiography Diagnostic Testing: Clinical Impression(s) from Imaging Studies Abdomen/Pelvis CT 03/25/25 16:12 IMPRESSION: 1. Acute uncomplicated sigmoid diverticulitis. 2. Diffuse hepatic steatosis. Reading Location: [id number] Management Discussion w/another healthcare provider: Hospitalist Discharge Plan Dx/Rx/DC Orders Clinical Impression: Diverticulitis of sigmoid colon, Crohn's disease, Intractable abdominal pain Disposition Disposition: [facility]
[2025-03-25 15:09] LABS: Hematocrit 42.0 % (37-47); Hemoglobin 14.4 g/dL (12.0-15.0); Immature Granulocytes Count 0.110 X10^3/uL (0.0-0.0); Mean Corp Hgb Conc 34.3 g/dL (32-36); Mean Corpuscular Volume 91.3 fL (81-99); Mean Platelet Vol. 9.9 fl (6.2-12.0); NRBC Flagged by Analyzer 0 % (0-5); POSITIVE DIFFERENTIAL YES; Platelet Count 345 K/mm3 (150-450); RBC Distribution Width CV 12.5 % (11.6-14.6); RBC Distribution Width SD 41.3 fl (35.1-43.9); Red Blood Count 4.60 M/mm3 (4.2-5.4); White Blood Count 17.4 K/mm3 (4.4-11.0)
[2025-03-25] MEDS: 0.9% Normal Saline (1000mL) 1,000 ML 999 ML IV (15:09)
[2025-03-25 15:35] LABS: AST(SGOT) 20 U/L (<=31); Alanine Aminotransfer ALT/SGPT 26 U/L (<=34); Albumin, Serum 4.5 g/dL (3.4-4.8); Alkaline Phosphatase 110 U/L (35-104); Anion Gap 14 (5-15); BUN 11 mg/dL (4-19); BUN/Creat Ratio 12.8 RATIO (10-20); Calcium,Total 9.5 mg/dL (7.6-11.0); Carbon Dioxide 26.3 mmol/L (21.0-32.0); Chloride 94 mmol/L (98-108); Estimated Creatinine Clearance 64.24 ml/min (50-250); Globulin 2.9 g/dL (2.2-4.2); Glucose 120 mg/dL (70-99); Lipase 32 U/L (13-75); Potassium 3.7 mmol/L (3.3-5.1)
--- NOTE | 2025-03-25 16:12 | CT_ITS ---
PROCEDURE: CT ABDOMEN/PELVIS W IV CONT ONLY 03/25/2025 REASON FOR EXAM: ACUTE LOWER ABD PAIN TECHNIQUE: Procedure Code: [id number] Modality: CT Procedure: ABDOMEN/PELVIS W IV CONT ONLY Coronal and Sagittal reconstruction series were provided. CONTRAST: Isovue-300 VOLUME: 97 mL One or more dose reduction techniques were used (e.g., Automated exposure control, adjustment of the mA and/or kV according to patient size, use of iterative reconstruction technique. RADIATION DOSE SUMMARY: DLP: 701.53 mGycm COMPARISON: Abdominal CT 08/12/2024. FINDINGS: Lung bases: Clear. Liver: Hepatic steatosis, otherwise unremarkable. Gallbladder: Unremarkable. No biliary ductal dilatation. Spleen: Unremarkable. Pancreas: Unremarkable. Adrenals: Unremarkable. Kidneys: Normal, symmetric enhancement. No urolithiasis or hydroureteronephrosis on either side. Few bilateral small simple appearing renal cysts. Bladder: Unremarkable. Reproductive Organs: Prior hysterectomy. Unremarkable adnexae. Bowel: Unremarkable stomach and small bowel. No evidence of obstruction. Appendix is surgically absent. Extensive distal colonic diverticulosis, with segmental wall thickening and prominent inflammatory fat stranding in the lower pelvis involving the mid to distal sigmoid colon compatible with acute diverticulitis. No free fluid collection or free air to indicate perforation. Lymph nodes: No suspicious lymph node enlargement. Vasculature: Normal caliber abdominal aorta and IVC, mild atherosclerotic calcifications. Peritoneum / Retroperitoneum: No ascites or free air. Bones: Postoperative changes of anterior discectomy and fusion as well as posterior metallic fusion of the spinous processes at L4-L5, with intact hardware. CT/Abdomen/Pelvis W IV Cont ONLY IMPRESSION: 1. Acute uncomplicated sigmoid diverticulitis. 2. Diffuse hepatic steatosis. Reading Location: [id number]
[2025-03-25 16:16] LABS: Differential Indicated SCAN CRITERIA MET
[2025-03-25 16:33] LABS: Mucous, Urine 0 SEEN /hpf (<or=2+); Red Blood Cells-Urine 0 SEEN /hpf (0-5)
[2025-03-25 17:22] LABS: Color, Urine Yellow (Yellow); Glucose, Dipstick Normal (Normal); Ketone-Dipstick Negative (Negative); Leukocyte Esterase-Dipstick Negative /ul (Negative); Nitrite-Dipstick Negative (Negative); Occult Blood-Urine Negative /ul (Negative); Protein-Dipstick Negative (Negative); Specific Gravity, Urine 1.005 (1.002-1.030); Urine Bilirubin Dipstick Negative (Negative)
[2025-03-25] MEDS: Piperacil/Tazobactam 3.375 GM in 0.9% Normal Saline (50mL MB+) 50 ML IV ×2 (17:41→22:31)
[2025-03-25] MEDS: fentaNYL 100 MCG/2 ML Ampul 50 MCG IV (18:15)
[2025-03-25 18:23] LABS: Differential Comment SCANNED
--- NOTE | 2025-03-25 18:40 | HP.PCM.HOS_ITS ---
HPI - General General Date of Admission: 03/25/25 Date of Service: 03/25/25 Chief Complaint: Lower abdominal pain HPI Narrative VIJI TESFAYE, is a 65-year-old female with a history of GERD, restless leg syndrome, depression, Crohn's disease presented [facility] ED 03/25/2025 with diffuse lower abdominal pain worse on the right that started yesterday gradually. She was placed on Cipro and Flagyl and symptoms worsened so she came to the ED. Does follow with Dr. Godwin and was diagnosed with Crohn's disease, she is now on Stelara. She notes low-grade temp with chills and nausea with no vomiting. In the ED temp 99.9, heart rate 127 blood pressure 123/79, respiratory rate 18 and pulse ox 98% on room air. CMP with BUN of 11 and creatinine 0.89, alk phos 110 and glucose 120, CBC with a white blood cell count of 17, hemoglobin 14.4. Lipase 32, UA negative and CT of the abdomen read as acute uncomplicated sigmoid diverticulitis. Patient received pain medication and Zosyn in the ED but was still very uncomfortable so hospitalist contacted for admission. Patient evaluated at bedside. She reports history as above with pain starting yesterday and not improving despite trying Cipro and Flagyl, has a headache and has been nauseous with poor p.o. intake since yesterday, notes she has had gas pains and she will feel the need to have a bowel movement but without much out, no overt diarrhea or constipation, no changes in bladder. In the ED he received pain medication and antinausea medication, nausea is slowly subsiding and feels like she would like to try to eat something, still having pain but is beginning to have some relief with the pain medication. Notes the pain is in her lower abdomen and wraps around to her back, denies epigastric pain [facility] Medical History Pain History of Crohn's disease Chronic pain GERD (gastroesophageal reflux disease) History of steroid therapy Wears glasses Post-menopausal Anxiety Alcohol use Hx of psoriatic arthritis Restless legs Back pain History of diverticulitis Hx of peptic ulcer Former smoker History of pain when walking Hypertension Osteoarthritis Home Medications ?Medication ?Instructions ?Recorded ?Last Taken ?Type venlafaxine 37.5 mg tablet 75 mg PO QHS depression 03/09/25 History pantoprazole 40 mg tablet,delayed 40 mg PO DAILY GERD 08/09/22 03/10/25 History release ramipril 10 mg capsule 10 mg PO BID HEART 08/09/22 03/09/25 History ropinirole 0.25 mg tablet 0.5 mg PO QHS RESTLESS LEGS 08/09/22 03/09/25 History furosemide 20 mg tablet 20 mg PO DAILY 01/12/2302/21 History acidophilus 25 million 2 tab PO BID #0 tabs 4 03/09/25 Rx cell-pectin, citrus 100 mg tablet tramadol 50 mg tablet 50 - 100 mg (1 - 2 x 50 mg) PO Q8H 09/26/23 03/09/25 Rx PRN pain #10 tabs amlodipine 5 mg tablet (Norvasc) 5 mg PO QHS 11/09/23 03/09/25 History ustekinumab 90 mg/mL subcutaneous 90 mg subcut Q8W #1 mL 03/11/24 Unknown Rx syringe (Stelara) dicyclomine 20 mg tablet 20 mg PO TID PRN abdominal p ain 10/04/24 Unknown History duloxetine 30 mg capsule,delayed 30 mg PO DAILY #30 ca ps 11/18/24 03/09/25 Rx release tizanidine 4 mg tablet 4 mg PO BID PRN PRN muscle s pasm 03/25/25 Unknown History Allergy/AdvReac Type Severity Reaction Status Date / Time adhesive tape Allergy Severe blistering Verified 03/25/25 14:10 bee venom protein (honey bee) Allergy Swelling Verified 03/25/25 14:10 Family History Other Breast cancer CAD (coronary artery disease) Heart disease Hypertension Surgical History Hx of colonoscopy History of lumbar spinal fusion Status post left partial knee replacement History of total right knee replacement History of appendectomy History of hysterectomy History of section Social History household members: spouse Smoking Status: Former smoker alcohol intake: current alcohol intake frequency: holidays/special occasions only substance use type: does not use what type of physical activity do you participate in: walking frequency: 1-2 times per week ROS ROS Narrative General: Reports low-grade temp at home HENT: Limited to headache, denies stuffy nose, denies sore throat EYES: Denies changes in vision Resp: Denies cough, denies shortness of breath Cardiac: Denies chest pain GI: Abdominal pain in the lower abdomen, feeling like she needs to have a bowel movement without much coming out, nausea, vomiting : Denies changes in urination Extremity: Denies swelling MSK: Denies weakness Neuro: Denies any numbness/tingling Heme: Denies any bleeding or bruising Skin: Denies rashes Psychiatric: No complaints voiced Vital Signs Vital Signs Vital Signs: 03/25/25 14:09 03/25/25 15:08 03/25/25 16:00 Temperature 99.9 F H Temperature Source Oral Pulse Rate 127 H 85 96 Respiratory Rate 18 18 18 Blood Pressure 123/79 H 151/91 H 148/78 H Blood Pressure Mean 93 111 101 Pulse Ox 98 99 100 Oxygen Delivery Method Room Air Room Air Room Air 03/25/25 17:00 03/25/25 18:00 03/25/25 18:16 Temperature 99.2 F H Temperature Source Pulse Rate 96 74 97 Respiratory Rate 22 H 15 15 Blood Pressure 149/84 H 117/56 L 117/96 H Blood Pressure Mean 105 76 103 Pulse Ox 97 93 94 Oxygen Delivery Method Room Air Room Air Weight Weight: 75.2 kg Body Mass Index (BMI) 28.4 Physical Exam Narrative General: Alert, oriented, no apparent distress HEENT: Atraumatic, normocephalic Eyes: Anicteric, normal conjunctiva, extraocular movements grossly intact Neck: Supple Respiratory: Clear to auscultation bilaterally, normal respiratory effort Cardiovascular: Regular rate and rhythm GI: Soft, nondistended, tenderness in both lower quadrants without rebound, guarding, rigidity, positive bowel sounds Extremities: No edema Musculoskeletal: Moving all extremities Neuro: No overt focal neurological deficits Skin: No rashes appreciated Psych: Cooperative Results Lab / Micro Data 03/25/25 14:55 03/25/25 14:55 Labs: Laboratory Results - last 24 hr 03/25/25 14:55: WBC 17.4 H, RBC 4.60, Hgb 14.4, Hct 42.0, MCV 91.3, MCH 31.3, MCHC 34.3, RDW Std Deviation 41.3, RDW Coeff of Caity 12.5, Plt Count 345, MPV 9.9, Immature Gran % (Auto) 0.600, Neut % (Auto) 80.0 H, Lymph % (Auto) 7.6 L, M calin % (Auto) 11.4 H, Eos % (Auto) 0.1, Baso % (Auto) 0.3, Absolute Neuts (auto) 13.9 H, Absolute Lymphs (auto) 1.32, Nucleated RBC % 0, Differential Comment SCANNED, Platelet Estimate ADEQUATE, Sodium 134, Potassium 3.7, Chloride 94 L, Carbon Dioxide 26.3, Anion Gap 14, BUN 11, Creatinine 0.89, Estim Creat Clear Calc 64.24, Est GFR (MDRD) Non-Af 73, BUN/Creatinine Ratio 12.8, Glucose 120 H, Calcium 9.5, Total Bilirubin 0.88, AST 20, ALT 26, Alkaline Phosphatase 110 H, Total Protein 7.5, Albumin 4.5, Globulin 2.9, Albumin/Globulin Ratio 1.5, Lipase 32 03/25/25 16:24: Urine Color Yellow, Urine Clarity Clear, Urine pH 7.0, Ur Specific [place] 1.005, Urine Protein Negative, Urine Glucose (UA) Normal, Urine Ketones Negative, Urine Occult Blood Negative, Urine Nitrite Negative, Urine Bilirubin Negative, Urine Urobilinogen Normal, Ur Leukocyte Esterase Negative Imaging Radiology Impression Abdomen/Pelvis CT 03/25/25 16:12 IMPRESSION: 1. Acute uncomplicated sigmoid diverticulitis. 2. Diffuse hepatic steatosis. Reading Location: [id number] Assessment & Plan Assessment/Plan (1) Acute diverticulitis: PLAN: Plan #Acute uncomplicated diverticulitis - CT of the abdomen read as acute uncomplicated sigmoid diverticulitis - Patient still uncomfortable after pain medication and Zosyn so hosp contacted for admission -Continue zosyn -IVF - Supportive care - Advance diet as tolerated #GERD -Continue PPI # Restless leg syndrome -continue patient's home medication regimen #Depression/anxiety -Continue home medications # Crohn's disease - Does have history of Crohn's, is on Stelara and follows with Dr. Godwin - Imaging consistent with diverticulitis at this time, if patient does not begin to improve can consider GI consult #DVT ppx: SCDs Jennifer Thomas MD Charges/Coding Visit Charges Inpatient E&M: 76175 Init Hosp L1
[2025-03-25 18:52] LABS: Squamous Epithelial Cells - UA 0-5 SEEN /hpf (5-10)
[2025-03-25] MEDS: 0.9% Normal Saline (1000mL) 1,000 ML 100 ML IV (20:14)
[2025-03-25] MEDS: 0.9% Saline Lock 10 ML Syringe IV (20:21)
[2025-03-25] MEDS: MELATONIN 10 MG TABLET PO (22:30)
--- OUTSIDE RECORDS SUMMARY | 2025-03-25 23:22 | XMS RPT_ITS | CCD ---
Author Organization [facility] [place] [facility] Team Providers Care Head Of Conservation Name Role Phone TRINIDAD KAY Unavailable Unavailable Nidia Lawler Unavailable Unavailable UNKNOWN Unavailable Unavailable Sai Estrada Unavailable Unavailable Unavailable, Family Physician Unavailable Un available Unavailable, Family Physician Unavailable Un available ZENAIDA MARR Unavailable Unavailable Az ROSADO, Kris Davis Primary Care Provider BERNARDO, KRIS SERGEY Primary Care Unavailable JESUS ALBERTO HARRIS Referring Unavailable BERNARDO, KRIS SERGEY Primary Care Unavailable TESTRALAMONT, YUMIKO Attending Unavailable TESTROSETTE, YUMIKO Admitting Unavailable Dr. Hernandez Mosley Chi Primary Care Provider [phone] Dimitri, Dr. Hernandez Alvarez Referring Provider [phone] Reyes Damian Attending Provider Dr. Vincent Villagomez Attending Provider [phone] Hernandez Mosley Chi Primary Care Provider TESTRALAMONT, YUMIKO Referring Unavailable BERNARDO, KRIS SERGEY Primary [...] Provider Dr. Vincent Villagomez Attending Provider Dr. Reyes Damian Admit Provider Dr. Reyes Damian Referring Provider Dr. Reyes Damian Other Provider Dr. Amandeep Madrigal Other Provider Dr. Kris Jones Attending Provider Arianna, Dr. Jesse Brambila Attending Provider Dr. Jesse Keller Other Provider Koram, Dr. Lydia Breaux Attending Provider Koram, Dr. Lydia Breaux Other Provider Dr. Liza Wolfe Attending Provider Dimitri, Dr. Hernandez Alvarez Primary Care Provider Dimitri, Dr. Hernandez Alvarez Referring Provider Dr. Reyes Damian Attending Provider [phone] [place], Dr. Kaur Attending Provider [phone] Az ROSADO, Kris Chirinos Primary Care Provider Dimitri, Dr. Hernandez Alvaerz Primary Care Provider Dimitri, Dr. Hernandez Alvarez Referring Provider Dr. Reyes Damian Attending Provider [phone] [place], Dr. Kaur Attending Provider [phone] Shabbir Birch Attending Provider [phone] Dr. Shabbir Birch Referring Provider [phone] Dr. Shabbir Birch Other Provider Dimitri, Dr. Hernandez Alvarez Primary Care Provider Dimitri, Dr. Hernandez Alvarez Referring Provider Dr. Vincent Villagomez Attending Provider [phone] Shabbir Birch Referring Provider [phone] Dr. Michael Lyman Emergency Provider Dr. Jorge L May Admit Provider Unavailabl e May, Dr. Coats Attending Provider Unavail able May, Dr. Coats Other Provider Unavailabl e Leon Dr. Lopez Other Provider Citlali, Dr. Angel Attending Provider Marcelino, Dr. Gorman Attending Provider [facility] [place], Dr. Gorman Other Provider Dimitri, Dr. Hernandez Alvarez Primary Care Provider [phone] Dimitri, Dr. Hernandez Alvarez Referring Provider Dr. Shabbir Birch Attending Provider Dr. Vincent Villagomez Attending Provider And, Dr. Rodriguez Emergency Provider May, Dr. Coats Admit Provider Unavailabl e May, Dr. Coats Attending Provider Unavail able May, Dr. Coats Other Provider Unavailabl e Leon, Dr. Lopez Other Provider Citlali, Dr. Angel Attending Provider Marcelino, Dr. Gorman Referring Provider [facility], Dr. Gorman Attending Provider [facility], Dr. Gorman Other Provider Dr. Rian Fierro Attending Provider Dimitri, Dr. Hernandez Alvarez Primary Care Provider Dimitri, Dr. Hernandez Alvarez Referring Provider Dr. Shabbir Birch Attending Provider Dr. Stanley Godwin Other Provider Dr. Hernandez Mosley MD, Chi Primary Care Provider [phone] Dimitri ROSADO, Dr. Hernandez Alvarez Referring Provider [phone] Gautam Abarca Attending Provider Dr. Stanley Godwin DO Attending Provider Dr. Stanley Godwin DO Referring Provider Khang ROSADO, Dr. Boyle Attending Provider Dr. Montana Quiñonez MD Referring Provider Dimitri ROSADO, Dr. Hernandez Alvarez Primary Care Provider Dimitri ROSADO, Dr. Hernandez Alvarez Referring Provider Dimitri ROSADO, Dr. Hernandez Alvarez Attending Provider Dimitri ROSADO, Dr. Hernandez Alvarez Primary Care Provider Dimitri ROSADO, Dr. Hernandez Alvarez Referring Provider Khang ROSADO, Dr. Boyle Attending Provider Khang ROSADO, Dr. Boyle Referring Provider Citlali TOSCANO, Dr. Angel Attending Provider Citlali TOSCANO, Dr. Angel Referring Provider Dimitri, Hernandez Chi Referring Unavailable Dimitri, Hernandez Chi Primary Care Unavailable Dimitri, Hernandez Chi Attending Unavailable Friend, Stanley Referring Unavailable Friend, Stanley Attending Unavailable Dimitri, Hernandez Chi Primary Care Unavailable Dimitri, Hernandez Chi Primary Care Unavailable Dimitri, Hernandez Chi Referring Unavailable Friend, Stanley Attending Unavailable Friend, Stanley Attending Unavailable Dimitri, Hernandez Chi Primary Care Unavailable Dimitri, Hernandez Chi Referring Unavailable Dimitri, Hernandez Chi Primary Care Unavailable Dimirti, Hernandez Chi Referring Unavailable Friend, Stanley Attending Unavailable Dimitri, Hernandez Chi Referring Unavailable Friend, Stanley Attending Unavailable Dimitri, Hernandez Chi Primary Care Unavailable Gautam Abarca Attending Unavailable Dimitri, Hernandez Chi Primary Care Unavailable Dimitri, Hernandez Chi Referring Unavailable Dimitri, Hernandez Chi Primary Care Unavailable Dimitri, Hernandez Chi Referring Unavailable Dimitri, Hernandez Chi Attending Unavailable Friend, Stanley Attending Unavailable Friend, Stanley Referring Unavailable Dimitri, Hernandez Chi Primary Care Unavailable Montana Quiñonez Attending Unavailable Dimitri, Hernandez Chi Primary Care Unavailable Montana Quiñonez Referring Unavailable Dimitri, Hernandez Chi Primary Care Unavailable Friend, Stanley Referring Unavailable Friend, Stanley Attending Unavailable Dimitri, Hernandez Chi Primary Care Unavailable Dimitri, Hernandez Chi Referring Unavailable Dimitri, Hernandez Chi Attending Unavailable Montana Quiñonez Referring Unavailable Montana Quiñonez Attending Unavailable Dimitri, Hernandez Chi Primary Care Unavailable Dimitri, Hernandez Chi Primary Care Unavailable Montana Quiñonez Referring Unavailable Montana Quiñonez Attending Unavailable Dimitri, Hernandez Chi Primary Care Unavailable Dimitri, Hernandez Chi Referring Unavailable Dimitri, Hernandez Chi Attending Unavailable Dimitri, Hernandez Chi Primary Care Unavailable Friend, Stanley Attending Unavailable Friend, Stanley Referring Unavailable Dimitri, Hernandez Chi Primary Care Unavailable Dimitri, Hernandez Chi Referring Unavailable Dimitri, Hernandez Chi Attending Unavailable Jacki ROSADO, Dr. Gonzales Emergency Provider Dr. Christian Echeverria MD Emergency Provider William ROSADO, Dr. Rodriguez Admit Provider William ROSADO, Dr. Rodriguez Attending Provider Allergies Allergy Classification Reported Allergen(s) Allergy Type Date of Onset Reaction(s) Facility (12 sources) Adhesive Tape; Translations: [ADHESIVE TAPE (ROSINS)] Propensity to adverse reactions (disorder) 6 Rash [facility] Other [place] [facility] (20 sources) Adhesive Tape; Translations: [adhesive tape] Allergy to substance 1 blistering [facility] Comment on above: has allergy to adhes adeel in paper tape (15 sources) BEE STING; Translations: [BEE STING] Allergy to substance 0 Swelling [facility] Work Phone: (20 sources) bee venom protein (honey bee) Allergy to substance 3 Swelling [facility] (1 source) bee venom protein (honey bee) Drug allergy (disorder) 5 [facility] Repository Medications Current Medications Medication Drug Class(es) Dates Sig (Normalized) Sig (Original) Acidophilus-Pectin, Ector 25 million cell -100 mg Tablet (7 sources) Start: 09-26-2023 take 1 tablet by mouth twice daily Acidophilus-Pectin , Ector 25 million cell -100 mg Tablet Active 2 {tbl} PO TWICE A DAY 0 0 September 26, 2023 1:00am [id number]. Probiotic. At least for 2 week. Start: 09-26-2023 take 1 tablet by karyn th twice daily Acidophilus-Pectin, Ector 25 million cell -100 mg Tablet Active 2 {tbl} PO TWICE A DAY 0 September 26, 2023 1:00am [id number]. Probiotic. At least for 2 week. amLODIPine [...] 03, 2018 3:42pm November 09, 2023 3:19pm BP Start: 01-03-2018 End: 11-09-2023 take 2.5 mg by mouth at bedtime Amlodipine Discontinue d 2.5 MG PO AT BEDTIME January 03, 2018 3:42pm November 09, 2023 3:19pm Start: 10-28-2017 End: 01-03-2018 take 1 tablet by mouth once daily Amlodipine 5 MG tablet Discontinued 5 mg PO DAILY 30 0 October 28, 2017 12:00am January 03, 2018 3:42pm Comment on above: Take 5 mg by mouth o nce daily. cyclobenzaprine hydrochloride 10 mg oral tablet (1 source) Muscle Relaxant Start: 023 take 10 mg by mouth three times daily Cyclobenzaprine Active 10 MG PO THREE TIMES A DAY April 22, 2023 12:00am dicyclomine hydrochloride 20 mg oral tablet (20 sources) Anticholinergic Start: 025 End: 025 take 1 tablet by mouth three times [...] BEFORE MEALS as needed for ABDOMINAL CRAMPS 30 30 0 September 26, 2023 1:00am November 09, 2023 3:20pm furosemide 20 mg oral tablet (20 sources) Loop Diuretic Start: 01-12-2023 take 1 tablet by mouth once daily Furosemide 20 mg tablet Active 20 mg PO DAILY January 12, 2023 12:00am lactobacillus acidophilus [id number] unt / pectin 100 mg oral tablet (8 sources) Start: 09-26-2023 take 2 tablets by mouth twice daily Acidophilus-Pectin , Ector Active 2 TABLET PO TWICE A DAY September 26, 2023 1:00am [id number]. Probiotic. At least for 2 week. ondansetron [...] mg PO DAILY August 09, 2022 12:04pm GERD Comment on above: Take 1 tablet by [facility] once daily. rOPINIRole 0.25 mg oral tablet (20 sources) Nonergot Dopamine Agonist Start: 08-09-2022 take 0.5 mg by mouth at bedtime Ropinirole Active 0.5 MG PO AT BEDTIME August 09, 2022 1:00am Start: 06-29-2017 take 2 tablets by [facility] at bedtime Ropinirole 0.25 mg tablet Active 0.5 mg PO AT BEDTIME August 09, 2022 1:00am RESTLESS LEGS Comment on above: Take 2 tablets by mo [facility] daily at bedtime. tiZANidine 4 mg oral tablet (2 sources) Central alpha-2 Adrenergic Agonist Start: 03-25-20 take 1 tablet by mouth twice daily as needed for muscle spasms Tizanidine 4 mg tablet Active 4 mg PO TWICE DAILY NEEDED as needed for muscle spasm March 25, 2025 12:00am 1 ml ustekinumab 90 mg/ml prefilled syringe (7 sources) Interleukin-12 Antagonist, Interleukin-23 Antagonist Start: 03-11-20 24 Ustekinumab (Stelara) 90 mg/mL syringe Active 90 mg SC every 8 weeks 07 29March 11, 2024 12:00am ICD 10- K50.90 Crohn's Disease venlafaxine 37.5 mg oral tablet (20 sources) Serotonin and Norepinephrine Reuptake Inhibitor Start: 03-20-20 16 take 2 tablets by mouth at bedtime Venlafaxine 37.5 MG tablet Active 75 mg PO AT BEDTIME March 20, 2016 12:00am depression Start: 03-20-2016 take 75 mg by mouth at bedtime Venlafaxine Active 75 MG PO AT BEDTIME March 20, 2016 12:00am Start: 03-20-2016 take 1 tablet by karyn th twice daily venlafaxine (EFFEXOR) 37.5 mg tablet Indications: Menopausal hot flushes Take 1 tablet by mouth twice daily. 180 tablet 3 08/05/2016 Active Comment on above: Take 1 tablet by karyn th twice daily. Completed/Discontinued Medications Medication Drug Class(es) Dates Sig (Normalized) Sig (Original) acetaminophen 500 mg oral tablet (19 sources) Start: 06-21-2023 End: 03-06-2025 take 2 tablets by mouth every six hours as needed Acetaminophen 500 mg tablet Discontinued 1000 mg PO EVERY 6 HOURS NEEDED 100 0 June 21, 2023 1:00am March 06, 2025 11:45am Start: 06-21-2023 take 1000 mg by mout h every six hours as needed Acetaminophen Active 1000 MG PO EVERY 6 HOURS NEEDED 100 June 21, 2023 1:00am acetaminophen 325 mg / HYDROcodone bitartrate 5 mg oral tablet (20 sources) Opioid Agonist Start: 01-03-2018 End: 08-21-2018 Hydrocodone-Acetaminophen 1 EACH tablet Discontinued 1 - 2 NMA PO 4 TIMES DAILY NEEDED as needed for Pain 20 5 0 January 03, 2018 12:00am August 21, 2018 3:13pm Acute diverticulitis of intestine Start: 01-03-2018 End: 08-21-2018 Hydrocodone-Acetaminophen Di scontinued 1 - 2 EACH PO 4 TIMES DAILY NEEDED 20 5 January 03, 2018 12:00am August 21, 2018 3:13pm acetaminophen 325 mg / oxyCODONE hydrochloride 5 mg oral tablet (20 sources) Opioid Agonist Start: 12-02-2022 End: 12-12-2022 Oxycodone-Acetaminophen 5-32 5 mg tablet Discontinued 1 {tbl} PO EVERY 6 HOURS as needed for pain 40 10 0 December 02, 2022 December 11, 2022 12:00am December 12, 2022 12:04am Status post lumbar spinal fusion Arthrodesis status Start: 12-02-2022 End: 12-12-2022 take 1 tablet by mouth every six hours Oxycodone-Acetaminophen Discontinued 1 TABLET PO EVERY 6 HOURS 40 December 02, 2022 December 12, 2022 12:04am Start: 11-21-2022 End: 12-01-2022 Oxycodone-Acetaminophen 5-32 5 mg tablet Discontinued 1 {tbl} PO EVERY 6 HOURS as needed for pain 40 10 November 21, 2022 November 30, 2022 12:00am December 01, 2022 12:05am Status post lumbar spinal fusion Arthrodesis status Start: 11-21-2022 End: 12-01-2022 take 1 tablet by mouth every six hours Oxycodone-Acetaminophen Discontinued 1 TABLET PO EVERY 6 HOURS 40 November 21, 2022 December 01, 2022 12:05am Start: 11-11-2022 End: 11-16-2022 Oxycodone-Acetaminophen 5-32 5 mg tablet Discontinued 1 {tbl} PO EVERY 6 HOURS as needed for pain 20 5 November 11, 2022 November 15, 2022 12:00am November 16, 2022 12:04am Degeneration of L4-L5 intervertebral disc Status post lumbar spinal fusion Other intervertebral disc degeneration, lumbar region Arthrodesis status Start: 11-11-2022 End: 11-16-2022 take 1 tablet by mouth every six hours Oxycodone-Acetaminophen Discontinued 1 TABLET PO EVERY 6 HOURS 20 5 November 11, 2022 November 16, 2022 12:04am Start: 10-31-2022 End: 11-10-2022 Oxycodone-Acetaminophen 5-32 5 mg tablet Discontinued 1 {tbl} PO EVERY 6 HOURS as needed for pain 40 10 0 October 31, 2022 November 09, 2022 12:00am November 10, 2022 12:05am Degeneration of L4-L5 intervertebral disc Status post lumbar spinal fusion Other intervertebral disc degeneration, lumbar region Arthrodesis status Start: 10-31-2022 End: 11-10-2022 take 1 tablet by mouth every six hours Oxycodone-Acetaminophen Discontinued 1 TABLET PO EVERY 6 HOURS 40 October 31, 2022 November 10, 2022 12:05am Start: 10-14-2022 End: 10-30-2022 Oxycodone-Acetaminophen 5-32 5 mg tablet Discontinued 1 {tbl} PO EVERY 6 HOURS as needed for pain 40 10 October 20, 2022 October 29, 2022 12:00am October 30, 2022 12:04am Status post lumbar spinal fusion Arthrodesis status Start: 10-14-2022 End: 10-30-2022 take 1 tablet by mouth every six hours Oxycodone-Acetaminophen Discontinued 1 TABLET PO EVERY 6 HOURS 40 10 October 20, 2022 October 29, 2022 11:04pm amoxicillin 500 mg oral tablet (7 sources) Penicillin-class Antibacterial Start: 06-24-2024 End: 10-04-2024 take 1 tablet by mouth three times daily Amoxicillin 500 mg tablet Discontinued 500 mg PO THREE TIMES A DAY 30 0 June 24, 2024 1:00am October 04, 2024 2:54pm aspirin 81 mg oral tablet (19 sources) Platelet Aggregation Inhibitor, Nonsteroidal Anti-inflammatory Drug Start: 06-21-2023 End: 08-21-2023 take 1 capsule by mouth twice daily Aspirin 81 mg capsule Discontinued 81 mg PO TWICE A DAY 30 0 June 21, 2023 1:00am August 21, 2023 12:32pm To prevent blood clot budesonide 3 mg delayed release oral capsule (7 sources) Corticosteroid Start: 11-23-2023 End: 05-03-2024 take 2 capsules by mouth once daily Budesonide 3 mg capsule,delayed,e xtend.release Discontinued 6 mg PO DAILY 60 2 November 23, 2023 12:00am May 03, 2024 10:44am Take two 3mg caps daily celecoxib 100 mg oral capsule (17 sources) Nonsteroidal Anti-inflammatory Drug Start: 08-04-2023 End: 08-21-2023 take 1 capsule by mouth twice daily Celecoxib (Celebrex) 100 mg capsule Discontinued 100 mg PO TWICE A DAY 28 0 August 04, 2023 1:00am August 21, 2023 12:33pm cephalexin 500 mg oral capsule (19 sources) Cephalosporin Antibacterial Start: 06-21-2023 End: 08-21-2023 Cephalexin 500 mg capsule Discontinued 1000 mg PO EVERY 8 HOURS 4 0 June 21, 2023 1:00am August 21, 2023 12:33pm take 2 tabs at 9:00 pm and 2 tabs after 5 am when you wake up Start: 06-21-2023 End: 08-21-2023 Cephalexin Discontinued 1000 MG PO EVERY 8 HOURS 4 June 21, 2023 1:00am August 21, 2023 12:33pm take 2 tabs at 9:00 pm and 2 tabs after 5 am when you wake up ciprofloxacin 500 mg oral tablet (20 sources) Quinolone Antimicrobial Start: 09-26-2023 End: 10-18-2023 take 1 tablet by mouth twice daily Ciprofloxacin Hcl 500 mg tablet Discontinued 500 mg PO TWICE A DAY 12 6 0 September 26, 2023 1:00am October 18, 2023 2:16pm Start: 01-03-2018 End: 08-21-2018 take 1 tablet by mouth twice daily Ciprofloxacin Hcl 500 MG tablet Discontinued 500 mg PO TWICE A DAY 20 0 January 03, 2018 12:00am August 21, 2018 3:12pm diazePAM 5 mg oral tablet (20 sources) Benzodiazepine Start: 10-14-2022 End: 10-24-2022 take 1 tablet by mouth three times daily as needed for anxiety Diazepam (Valium) 5 mg tablet Discontinued 5 mg PO THREE TIMES A DAY as needed for anxiety 30 10 0 October 14, 2022 12:00am October 23, 2022 12:00am October 24, 2022 12:04am DULoxetine 30 mg delayed release oral capsule (20 sources) Serotonin and Norepinephrine Reuptake Inhibitor Start: 02-12-2024 End: 11-18-2024 take 1 capsule by mouth once daily Duloxetine 30 mg capsule,delayed release(DR/EC) Discontinued 30 mg PO DAILY 30 2 November 15, 2024 2:36pm November 18, 2024 1:25pm ergocalciferol 1.25 mg oral capsule (9 sources) Provitamin D2 Compound Start: 08-08-2017 ergocalciferol, vitamin D2, (DRISDOL) 50,000 unit capsule Indications: Vitamin D deficiency Take 1 capsule by mouth twice a week. (FOR EXAMPLE ONE CAPSULE ON MONDAY AND ONE ON MONDAY) FOR A TOTAL OF 8 WEEKS, WITH A MEAL 8 capsule 1 08/08/2017 Active Comment on above: Take 1 capsule by [facility] twice a week. (FOR EXAMPLE ONE CAPSULE ON MONDAY AND ONE ON MONDAY) FOR A TOTAL OF 8 WEEKS, WITH A MEAL folic acid 1 mg oral tablet (20 sources) Start: 10-23-2023 End: 05-03-2024 take 1 tablet by mouth once daily Folic Acid 1 mg tablet Discontinued 1 mg PO DAILY 30 6 October 23, 2023 12:00am May 03, 2024 10:44am Start: 10-25-2017 End: 09-24-2023 take 1 tablet by mouth once daily Folic Acid 1 MG tablet Discontinued 1 mg PO DAILY@0800 October 25, 2017 12:00am September 24, 2023 2:29am supplement hydroCHLOROthiazide 25 mg / triamterene 37.5 mg oral capsule (20 sources) Potassium-sparing Diuretic, Thiazide Diuretic Start: 03-20-2016 End: 10-28-2017 Triamterene-Hydrochlorothiaz id 1 CAP capsule Discontinued 1 NMA PO AT BEDTIME March 20, 2016 12:00am October 28, 2017 11:33am blood pressure Start: 03-20-2016 End: 10-28-2017 take 1 capsule by mouth at bedtime Triamterene-Hydrochlorothiazid Discontin ued 1 CAP PO AT BEDTIME March 20, 2016 12:00am October 28, 2017 11:33am hydrocortisone 20 mg oral tablet (7 sources) Corticosteroid Start: 02-12-2024 End: 10-04-2024 take 1 tablet by mouth twice daily Hydrocortisone 20 mg tablet Discontinued 20 mg PO TWICE A DAY 60 0 February 12, 2024 12:00am October 04, 2024 2:55pm hyoscyamine sulfate 0.125 mg oral tablet (7 sources) Start: 08-13-2024 End: 03-25-2025 Hyoscyamine Sulfate 0.125 mg tablet Discontinued 0.125 mg PO 2 to 4 times per day as needed for dyspepsia 30 August 13, 2024 1:00am March 25, 2025 3:01pm mesalamine 1200 mg delayed release oral tablet (11 sources) Aminosalicylate Start: 09-28-2023 End: 02-12-2024 take 2 tablets by mouth once daily Mesalamine 1.2 gram tablet,delayed release (DR/EC) Discontinued 2.4 g PO DAILY 56 20 09September 28, 2023 1:00am February 12, 2024 1:35pm Start: 09-28-2023 take 2.4 g by mouth once daily Mesalamine Active 2.4 GM PO DAILY 56 September 28, 2023 1:00am methotrexate 2.5 mg oral tablet (20 sources) Folate Analog Metabolic Inhibitor Start: 10-23-2023 End: 05-03-2024 Methotrexate Sodium 2.5 mg tablet Discontinued 12.5 mg PO ULRICH November 09, 2023 12:00am May 03, 2024 10:44am Start: 10-23-2023 End: 11-09-2023 Methotrexate Sodium Active 1 2.5 MG PO ULRICH November 09, 2023 12:00am Start: 10-25-2017 End: 09-30-2022 Methotrexate Sodium 2.5 MG t ablet Discontinued 12.5 mg PO ULRICH October 25, 2017 12:00am September 30, 2022 10:01am psoriatic arthritis Start: 10-25-2017 End: 09-30-2022 Methotrexate Sodium Disconti nued 12.5 MG PO ULRICH October 25, 2017 12:00am September 30, 2022 [...] on package metroNIDAZOLE 500 mg oral tablet (15 sources) Nitroimidazole Antimicrobial Start: 2023 End: 2023 take 1 tablet by mouth every eight hours Metronidazole 500 mg tablet Discontinued 500 mg PO Q8H 15 5 0 September 26, 2023 1:00am November 09, 2023 3:21pm oxyCODONE hydrochloride 5 mg oral tablet (20 sources) Opioid Agonist Start: 2022 End: 2022 take 1 tablet by mouth every eight hours as needed for pain Oxycodone 5 mg tablet Discontinued 5 mg PO Q8H as needed for pain 21 7 0 July 14, 2023 July 20, 2023 1:00am July 21, 2023 1:05am Other acute postprocedural pain Other acute postprocedural pain Start: 07-05-2023 End: 07-12-2023 take 5-10 mg by mouth every six hours as needed for pain Oxycodone 5 mg tablet Discontinued 5 - 10 mg PO EVERY 6 HOURS as needed for Pain Score 6-10/10 45 7 0 July 05, 2023 July 11, 2023 1:00am July 12, 2023 1:09am Other acute postprocedural pain Start: 06-21-2023 End: 07-14-2023 take 5-15 mg by mouth every four hours as needed for pain Oxycodone 5 mg tablet Discontinued 5 - 15 mg PO Q4H as needed for pain 40 5 0 June 23, 2023 July 14, 2023 3:42pm Other acute postprocedural pain Other acute postprocedural pain polyethylene glycol 3350 08683 mg powder for oral solution (15 sources) Osmotic Laxative Start: 09-26-2023 End: 05-03-2024 take 17 g by mouth once daily as needed for constipation Polyethylene Glycol 3350 17 gram Powder In Packet Discontinued 17 g PO DAILY as needed for CONSTIPATION 0 0 September 26, 2023 1:00am May 03, 2024 10:44am ramipril 10 mg oral capsule (20 sources) Angiotensin Converting Enzyme Inhibitor Start: 03-20-2016 End: 08-09-2022 take 1 capsule by mouth twice daily Ramipril 10 MG capsule Discontinued 10 mg PO TWICE A DAY 0 0 October 28, 2017 12:00am August 09, 2022 12:04pm Start: 03-20-2016 End: 10-28-2017 take 1 capsule by mouth once daily ramipril (ALTACE) 10 mg capsule Indications: Essential hypertension, benign Take 1 capsule by mouth once daily. 180 capsule 3 04/08/2016 Active Comment on above: Take 1 capsule by [facility] once daily. traMADol hydrochloride 50 mg oral tablet (20 sources) Opioid Agonist Start: End: take 50-100 mg by mouth every eight hours as needed for pain Tramadol 50 mg tablet Discontinued 50 - 100 mg PO Q8H as needed for pain 42 0 August 11, 2023 12:10pm September 26, 2023 [...] HOURS as needed for pain 28 7 0 February 06, 2023 2:36pm February 12, 2023 12:00am February 13, 2023 12:03am Status post lumbar spinal fusion Arthrodesis status Start: 11-29-2018 End: 12-14-2022 take 1 tablet [...] as needed. Currently not taking while on [place] for pain triamcinolone acetonide 40 mg/ml injectable suspension (3 sources) Corticosteroid Start: 11-29-2018 End: 11-29-2018 Kenalog (triamcinolone acetonide) 40 mg/mL suspension for injection Discontinued 40 MG INTRAARTIC ONCE 1 November 29, 2018 1:02pm November 29, 2018 1:39pm Problems Active Problems Problem Classification Problem Date Documented Da te Episodic/Chronic Abdominal pain (11 sources) Lower abdominal pain; Translations: [Lower abdominal pain, unspecified] Onset: 3 04-26-2013 Episodic Acquired foot deformities (5 sources) Acquired deformity [...] Onset: 5 10-26-2017 Chronic E Codes: Fall (20 sources) Fall; Translations: [Unspecified fall, initial encounter] [...] perforation] Onset: 6 03-28-2016 Chronic Gastrointestinal hemorrhage (20 sources) Gastrointestinal hemorrhage; Translations: [Gastrointestinal hemorrhage, unspecified] [...] unspecified] Onset: 1 07-19-2021 Chronic Other aftercare (17 sources) Follow-up status; Translations: [Encounter for other [...] Onset: 4 Chronic Other connective tissue disease (19 sources) History of prosthetic unicompartmental arthroplasty of left knee; Translations: [Presence of left artificial knee joint] 05-18-2023 Chronic Other connective tissue disease (2 sources) Presence of left artificial knee joint; Translations: [Knee joint replacement] 05-18-2023 Chronic Other connective tissue disease (9 sources) Presence of unspecified artificial knee joint; Translations: [Knee joint replacement] 05-31-2023 Chronic Other connective tissue disease (20 sources) History of lumbar fusion; Translations: [Arthrodesis status] 10-14-2022 Episodic Other connective tissue disease (20 sources) Trochanteric bursitis; Translations: [Trochanteric bursitis, left hip] 04-19-2023 Episodic Other connective tissue disease (17 sources) Iliotibial band friction syndrome; Translations: [Iliotibial band syndrome, left leg] 08-04-2023 Episodic Other connective tissue disease (20 sources) Iliotibial band syndrome, left leg; Translations: [Other disorders of muscle, ligament, and fascia] 08-04-2023 Episodic Other disorders of stomach and duodenum (9 sources) Stricture of duodenum; Translations: [Obstruction of duodenum] Onset: 6 03-28-2016 Chronic Other disorders of stomach and duodenum (11 sources) Stenosis of duodenum; Translations: [Obstruction of duodenum] 09-28-2023 Chronic Other inflammatory condition of skin (20 sources) Psoriatic arthritis; Translations: [Arthropathic psoriasis, unspecified] Onset: 9 08-15-2018 Chronic Other inflammatory condition of skin (1 source) Arthropathic psoriasis, unspecified; Translations: [Psoriatic arthropathy] 11-10-2023 Chronic Other nervous system disorders (19 sources) Acute postoperative pain; Translations: [Other acute postprocedural pain] 06-21-2023 Episodic Other non-traumatic joint disorders (3 sources) Pain in right knee; Translations: [Pain in joint, lower leg] Onset: 2 Episodic Other non-traumatic joint disorders (20 sources) Pain in left knee; Translations: [Left knee pain] Onset: 2 05-31-2023 Episodic Other non-traumatic joint disorders (20 sources) Hip pain; Translations: [Pain in left [...] uncomplicated; Translations: [Nicotine dependence, unspecified, uncomplicated] Onset: 8 Chronic Superficial injury; contusion (20 sources) Contusion of hip; Translations: [Contusion of left hip, initial encounter] 04-22-2023 Episodic Unclassified (1 source) Low back pain, unspecified; Translations: [Low back pain, unspecified] Onset: 5 Past or Other Problems Problem Classification Problem Date Documented Da te Episodic/Chronic Complication of device; implant or graft (9 [...] Range Facility Absolute lymphocyte countOrd ered By: Christian Echeverria on 03-25-2025 Lymphocytes Auto (Unsp spec) [#/Vol] 1.32 10*3/uL 0.83-4.51 [facility] Absolute neutrophil countOrd ered By: Christian Echeverria on 03-25-2025 Neutrophils (Bld) [#/Vol] 13.9 10*3/uL High 2.0-7.7 [facility] Anion gap in Serum or Plasma Ordered By: Christian Echeverria on 03-25-2025 Anion gap [Moles/Vol] 14 mmol/L 5-15 [facility] Automated lymphocyte count a s percentage of total leukocytesOrdered By: Christina Echeverria on 03-25-2025 Lymphocytes/100 WBC Auto (Unsp spec) 7.6 % Low 19-41 [facility] BUN/creatinine ratioOrdered By: Christian Echeverria on 03-25-2025 Urea nitrogen/Creatinine [Mass ratio] 12.8 mg/mg 10-20 [facility] Basophil percentageOrdered B y: Christian Echeverria on 03-25-2025 Basophils/100 WBC (Bld) 0.3 % 0-1 [facility] Bilirubin Test strip Ql (U)O rdered By: Christian Echeverria on 03-25-2025 Bilirubin Ql (U) Negative Negative [facility] Bilirubin, totalOrdered By: Christian Echeverria on 03-25-2025 Bilirubin [Mass/Vol] 0.88 mg/dL 0.00-1.30 [facility] Blood manual differential co mment interpretation (narrative result)Ordered By: Christian Echeverria on 03-25-2025 Manual differential comment Angel (Bld) [Interp] SCANNED [facility] Carbon dioxide, total [Moles /volume] in Central venous bloodOrdered By: Christian Echeverria on 03-25-2025 CO2 [Moles/Vol] 26.3 mmol/L 21.0-32.0 [facility] Chloride assayOrdered By: Steven Echeverria on 03-25-2025 Chloride [Moles/Vol] 94 mmol/L Low 98-108 [facility] Eosinophil percentageOrdered By: Christian Echeverria on 03-25-2025 Eosinophils/100 WBC (Bld) 0.1 % 0-5 [facility] Erythrocyte distribution wid th ratioOrdered By: Christian Echeverria on 03-25-2025 Erythrocyte distribution width (RBC) [Ratio] 12.5 % 11.6-14.6 [facility] Erythrocyte distribution wid th standard deviationOrdered By: Christian Echeverria on 03-25-2025 Erythrocyte distribution width (RBC) [Ratio] 41.3 fl 35.1-43.9 [facility] Glomerular filtration rate ( GFR) estimation/1.73 sq m using serum, plasma, or whole bOrdered By: Christian Echeverria on 03-25-2025 GFR/1.73 sq M.predicted among non-blacks MDRD (S/P/Bld) [Vol rate/Area] 73 mL/min/{1.73_m2} >60 [facility] Comment on above: mL/min/1.73m2 CKD-EP I Creatinine Equation (2020) Hematocrit Auto (Bld) [Volum e fraction]Ordered By: Christian Echeverria on 03-25-2025 Hematocrit (Bld) [Volume fraction] 42.0 % 37-47 [facility] Hemoglobin measurementOrdere d By: Christian Echeverria on 03-25-2025 Hemoglobin (Bld) [Mass/Vol] 14.4 g/dL 12.0-15.0 [facility] Immature granulocytes/100 WB C Auto (Bld)Ordered By: Christian Echeverria on 03-25-2025 Immature granulocytes/100 WBC (Bld) 0.600 % 0.0-0.9 [facility] Comment on above: IG% - Immature Granu locytes (promyelocytes, myelocytes and metamyelocytes) > 1% indicates that a LEFT SHIFT is Present. Ketones Test strip Ql (U)Ord ered By: Christian Echeverria on 03-25-2025 Ketones Ql (U) Negative Negative [facility] Laboratory - Chemistry and C hemistry - challengeOrdered By: Christian Echeverria on 03-25-2025 AST [Catalytic activity/Vol] 20 U/L <32 [facility] Lipase measurementOrdered By : Christian Echeverria on 03-25-2025 Lipase [Catalytic activity/Vol] 32 U/L 13-75 [facility] Comment on above: Please note:LIPASE r evised reference range effective 22. New Lipase methodology. Expected to produce lower values than the previous assay method. NEW Reference Range: 13 - 75 U/L MCV (mean corpuscular volume ) determinationOrdered By: Christian Echeverria on 03-25-2025 MCV (RBC) [Entitic vol] 91.3 fL 81-99 [facility] Mean corpuscular hemoglobin (MCH) determinationOrdered By: Christian Echeverria on 03-25-2025 MCH (RBC) [Entitic mass] 31.3 pg 27.0-32.0 [facility] Mean corpuscular hemoglobin concentration (MCHC) determinationOrdered By: Christian Echeverria on 03-25-2025 MCHC (RBC) [Mass/Vol] 34.3 g/dL 32-36 [facility] Mean platelet volume determi nationOrdered By: Christian Echeverria on 03-25-2025 Platelet mean volume (Bld) [Entitic vol] 9.9 fL 6.2-12.0 [facility] Microscopic analysis of urin e for red blood cells (RBC)Ordered By: Christian Echeverria on 03-25-2025 Microscopic analysis of urine for red blood cells (RBC) 0 SEEN /hpf 0-5 [facility] Monocyte percentageOrdered B y: Christian Echeverria on 03-25-2025 Monocytes/100 WBC (Bld) 11.4 % High 0-10 [facility] Mucus LM Ql (Urine sed)Order ed By: Christian Echeverria on 03-25-2025 Mucus Ql (Urine sed) 0 SEEN /hpf [facility] Neutrophil percentageOrdered By: Christian Echeverria on 03-25-2025 Neutrophils/100 WBC (Bld) 80.0 % High 47-70 [facility] Nitrite Test strip Ql (U)Ord ered By: Christian Echeverria on 03-25-2025 Nitrite Ql (U) Negative Negative [facility] Nucleated red blood cell per centageOrdered By: Christian Echeverria on 03-25-2025 Nucleated RBC/100 WBC (Bld) [Ratio] 0 % 0-5 [facility] Platelet countOrdered By: Steven Echeverria on 03-25-2025 Platelets (Bld) [#/Vol] 345 10*3/uL 150-450 [facility] Platelet estimateOrdered By: Christian Echeverria on 03-25-2025 Platelets LM Ql (Bld) ADEQUATE ADEQ [facility] Potassium measurement (mass/ volume)Ordered By: Christian Echeverria on 03-25-2025 Potassium (Unsp spec) [Mass/Vol] 3.7 mmol/L 3.3-5.1 [facility] Protein Test strip Ql (U)Ord ered By: Christian Echeverria on 03-25-2025 Protein Ql (U) Negative Negative [facility] RBC Auto (Bld) [#/Vol]Ordere d By: Christian Echeverria on 03-25-2025 RBC (Bld) [#/Vol] 4.60 10*6/uL 4.2-5.4 [facility] Serum creatinine measurement (mass/volume)Ordered By: Christian Echeverria on 03-25-2025 Creatinine [Mass/Vol] 0.89 mg/dL 0.70-1.20 [facility] Serum globulin measurementOr dered By: Christian Echeverria on 03-25-2025 Globulin (S) [Mass/Vol] 2.9 g/dL 2.2-4.2 [facility] Serum glucose measurement (m ass/volume)Ordered By: Christian Echeverria on 03-25-2025 Glucose [Mass/Vol] 120 mg/dL High 70-99 [facility] Serum or plasma alanine bergman otransferase (ALT) measurementOrdered By: Christian Echeverria on 03-25-2025 ALT [Catalytic activity/Vol] 26 U/L <35 [facility] Serum or plasma albumin elis urement (mass/volume)Ordered By: Christian Echeverria on 03-25-2025 Albumin [Mass/Vol] 4.5 g/dL 3.4-4.8 [facility] Serum or plasma albumin/glob ulin mass ratioOrdered By: Christian Echeverria on 03-25-2025 Albumin/Globulin [Mass ratio] 1.5 {ratio} 0.9-2.4 [facility] Serum or plasma alkaline radha sphatase measurementOrdered By: Christian Echeverria on 03-25-2025 ALP [Catalytic activity/Vol] 110 U/L High 35-104 [facility] Serum or plasma calcium elis urement (mass/volume)Ordered By: Christian Echeverria on 03-25-2025 Calcium [Mass/Vol] 9.5 mg/dL 7.6-11.0 [facility] Serum or plasma urea nitroge n measurement (mass/volume)Ordered By: Christian Echeverria on 03-25-2025 Urea nitrogen [Mass/Vol] 11 mg/dL 4-19 [facility] Sodium levelOrdered By: Murali Echeverria on 03-25-2025 Sodium [Moles/Vol] 134 mmol/L 133-145 [facility] Squamous epithelial cells de tection in urine sediment by light microscopyOrdered By: Christian Echeverria on 03-25-2025 Epithelial cells.squamous LM Ql (Urine sed) 0-5 SEEN /hpf 5-10 [facility] Total proteinOrdered By: Trey Echeverria on 03-25-2025 Protein [Mass/Vol] 7.5 g/dL 5.9-8.4 [facility] Urine clarityOrdered By: Trey Echeverria on 03-25-2025 Clarity (U) Clear Clear [facility] Urine color determinationOrd ered By: Christian Echeverria on 03-25-2025 Color (U) Yellow Yellow [facility] Urine glucose detectionOrder ed By: Christian Echeverria on 03-25-2025 Glucose Ql (U) Normal mg/dl Normal [facility] Urine leukocyte esterase det ection by dipstickOrdered By: Christian Echeverria on 03-25-2025 Leukocyte esterase Test strip Ql (U) Negative Negative [facility] Urine pHOrdered By: Christian Echeverria on 03-25-2025 pH (U) 7.0 [pH] 5.0 - 8.0 [facility] Urine sediment bacteria coun t by microscopy (number/high power field)Ordered By: Christian Echeverria on 03-25-2025 Bacteria LM.HPF (Urine sed) [#/Area] 0 /[HPF] None Seen [facility] Urine specific gravity measu rementOrdered By: Christian Echeverria on 03-25-2025 Specific gravity (U) [Rel density] 1.005 1.002-1.030 [facility] Urine urobilinogen measureme ntOrdered By: Christian Echeverria on 03-25-2025 Urobilinogen Ql (U) Normal mg/dl Normal [facility] White blood cell (WBC) count Ordered By: Christian Echeverria on 03-25-2025 WBC (Bld) [#/Vol] 17.4 10*3/uL High 4.4-11.0 [facility] White blood cell countOrdere d By: Christian Echeverria on 03-25-2025 White blood cell count 0 SEEN /hpf 0-5 [facility] CRPon 03-18-2025 C-REACTIVE PROT 4.67 mg/L High 0.0-3.0 [facility] Comment on above: Performed By: #### L 501.6710, L101.9900 ####[facility] [address] [place], [address] Erythrocyte Sed Rateon 03-18 SED RATE 1 mm/hr Normal 0-30 [facility] Comment on above: Performed By: #### L 501.6710, L101.9900 ####[facility] [address] [place], [address] Erythrocyte sedimentation ra teOrdered By: Stanley Godwin on 03-18-2025 ESR (Bld) [Velocity] 1 mm/h 0-30 [facility] Visit Repor ton 03-18-2025 Gastroenterology Visit Report [facility] [address] [place] [address] OFFICE VISIT Date of Service: 03/18/25 MR#: [id number] Acct: [id number] Name: JUDY REAGAN ANN Rep #: [id number] : 1960 Provider: Stanley Godwin DO Age/Sex: 65/F Location: [facility] [place] Status: Signed Intake Vital Signs 10/07/24 11:21 03/10/25 07:32 Height 5 ft 4 in 5 ft 4 in Intake Visit Reasons: 4 M FU Allergies adhesive tape Allergy (Severe, Verified 03/10/25 07:50) blistering bee venom protein (honey bee) Allergy (Verified 03/10/25 07:41) Swelling Medications ???Medication ???Instructions ???Recorded ???Confirmed ???Type venlafaxine 37.5 mg tablet 75 mg PO QHS depression 03/20/16 0 03/18/25 History pantoprazole 40 mg tablet,delayed 40 mg PO DAILY GERD 08/09/2202/22 History release ramipril 10 mg capsule 10 mg PO BID HEART 08/09/22 History ropinirole 0.25 mg tablet 0.5 mg PO QHS RESTLESS LEGS 03/18/25 History furosemide 20 mg tablet 20 mg PO DAILY 01/12/23 03/18/25 H istory acidophilus 25 million 2 tab PO BID #0 tabs 09/26/2302/22 Rx cell-pectin, citrus 100 mg tablet tramadol 50 mg tablet 50 - 100 mg (1 - 2 x 50 mg) PO Q8H 09/26/23 03/18/25 Rx PRN pain #10 tabs amlodipine 5 mg tablet (Norvasc) 5 mg PO QHS 11/09/23 03/18/25 Hist ory ustekinumab 90 mg/mL subcutaneous 90 mg subcut Q8W #1 mL 03/11/24 0 03/18/25 Rx syringe (Stelara) hyoscyamine sulfate 0.125 mg tablet 0.125 mg PO BID-QID PRN dyspeps ia 08/13/24 03/18/25 Rx #30 tabs dicyclomine 20 mg tablet 20 mg PO TID PRN abdominal pain 03/18/25 History duloxetine 30 mg capsule,delayed 30 mg PO DAILY #30 caps 11/18/24 0 03/18/25 Rx release PFSH Medical History (Updated 03/06/25 @ 11:52 by Roma Carrera) Pain History of Crohn's disease Chronic pain GERD (gastroesophageal reflux disease) History of steroid therapy Wears glasses Post-menopausal Anxiety Alcohol use Hx of psoriatic arthritis Restless legs Back pain History of diverticulitis Hx of peptic ulcer Former smoker History of pain when walking Hypertension Osteoarthritis Surgical History Hx of colonoscopy History [...] HPI HPI Details: JUDY REAGAN, is a 65 F who presents to the office today for follow up. [facility] hospitalization 03.20.16-03.23.16 for abdominal pain. EGD 03.20.16???scope could not be advanced through duodenal bulb due to concentric narrowing less likely mass; no obvious ulcerations; duodenitis with duodenal ulcers; gastritis; healing prepyloric ulcer. H.Pylori neg Prior workup: ?CT abd/pel 09.21.23???colonic diverticulosis with diverticulitis *[facility] hospitalization 3.10.14-09.26.23 for management of abdominal pain with recent [...] flexure inflammation with friability and granularity OV 4.1.24 Pt states she has been feeling well [...] diarrhea 4-5x a day, right sided abdominal (more content not included)... Normal [facility] Serum or plasma C reactive p rotein measurement (mass/volume)Ordered By: Stanley Godwin on 03-18-2025 CRP [Mass/Vol] 4.67 mg/L High 0.0-3.0 [facility] Lumbar Spine 2 or 3 Viewson 03-10-2025 Lumbar Spine 2 or 3 Views [facility] Imaging Services [address] [place] [id number] Lumbar Spine 2 or 3 Views MR#: [id number] Acct: [id number] Name: JUDY REAGAN ANN Rep #: [id number] : 1960 F 65 From: Yumiko Mancia MD PCP: Dr. Hernandez Mosley MD Status: [facility] Study: Lumbar Spine 2 or 3 Views Date of Exam: Exam# [id number] Ordering Dr: Montana Quiñonez MD PROCEDURE: LUMBAR SPINE 2 OR 3 VIEWS 03/10/2025 REASON FOR EXAM: L4 L5 S1 TECHNIQUE: LUMBAR SPINE 2 OR 3 VIEWS FINDINGS: Intraoperative fluoroscopy of the lumbar spine was performed. 5.88 mGy. 15 seconds of fluoroscopic time. See procedure report for full details. RAD/Lumbar Spine 2 or 3 Views IMPRESSION: As above. Reading Location: [id number] CC: Dr. Montana Quiñonez MD; Dr. Hernandez Mosley MD Manager Shipping: Signed [facility] MR/POSTOP.ANEon 03-10-2025 MR/POSTOP.[facility] Medical Records Department [address] [place] [address] Anesthesia Postop Eval I 03/10/25 0848 MR#: [id number] Acct: [id number] Name: JUDY REAGAN ANN Rep #: [id number] : 1960 65 From: Yeimy Duggan CRNA PCP: Dr. Hernandez Mosley MD Status:[facility] Y Race: C Location: [place] [address] Anesthesia: Postop Eval I Current Vital Signs Temperature: 97.2 F Pulse Rate: 80 Blood Pressure: 140/75 Respiratory Rate: 20 Pulse Ox: 99 Assessment Airway patent: Yes Spontaneous unlabored respirations: Yes nausea: No Vomiting: No Anesthesia Complication: No Fluid Hydration Crystalloid volume administer (ml): 200 Total IV fluid infused: 200 Progress Note Anesthesia document: Postop Eval 1 completed: Yes 03/10/2548 Date Yeimy Duggan [employer]HOU[employer]PRENTICE Cosigner Signature: Date CC: Signed [facility] MR/[id number] 03-10-2025 MR/POSTOPAN2 [facility] Medical Records Department [address] [place] [address] Anesthesia Postop Eval II 03/10/25 1343 MR#: [id number] Acct: [id number] Name: JUDY REAGAN ANN Rep #: [id number] : 1960 65 From: Sade Padgett CRNA PCP: Dr. Hernandez Mosley MD Status:[facility] Y Race: C [place] [facility] [place]esthesia Postop Eval I Sum Postop Eval Completion status Anesthesia document: Postop Eval 1 completed: Yes Anesthesia Postop Eval I Summary Anesthesia Postop Eval I Summary: Anesthesia Postop Eval I: Assessment Summary Airway patent Yes 03/10/25 08:48 [employer]HOUSE [employer]PRENTICE.CSIR Spontaneous unlabored Yes 03/10/25 08:48 [employer]HOUSE [employer]ICIAN APPRENTICE.CSIR respirations Mental status nausea No 03/10/25 08:48 [employer]HOUSE [employer] APPRENTICE.CSIR Vomiting No 03/10/25 08:48 [employer]HOUSE [employer]IC[employer] APPRENTICE.CSIR Anesthesia Postop Eval I: Fluid Summary Crystalloid volume administer 200 03/10/25 08:48 [employer]HOUSE [employer]LECTRICIAN APPRENTICE.CSIR (ml) Colloids volume administered ( ml) Blood Product volume administered (ml) Total IV fluid infused 200 03/10/25 08:48 [employer]HOUSE [employer]IC[employer] APPRENTICE.CSIR Anesthesia Postop Eval I: Summary Notes Anesthesia Complication No 03/10/25 08:48 [employer]HOUSE [employer]PRENTICE.CSIR Anesthesia Complication Comment: Post-operative progress note Anesthesia: Postop Eval II Evaluation Mental status: Awake and Calm Pain Level: 1 nausea: No Vomiting: No Complications Anesthesia Complication: No 03/10/25 1343 Date Sade Padgett [employer]HOU[employer]PRENTICE Cosigner Signature: Date CC: Signed Normal [facility] Operative Reporton 5 Operative Report [facility] Medical Records Department [address] [place] [address] Operative Report 03/10/25 0849 MR#: [id number] Acct: [id number] Name: JUDY REAGAN ANN Rep #: [id number] : 1960 65 From: Montana Quiñonez MD PCP: Dr. Hernandez Mosley MD Status:[facility] Location: [place] [address] Operative Report (Standard) Operative Information Date of Procedure: 03/10/25 Pre-Operative Diagnosis: Lumbosacral radiculopathy, lumbosacral spinal stenosis, lumbosacral degenerative disc disease Post-Operative Diagnosis: Lumbosacral radiculopathy, lumbosacral spinal stenosis, lumbosacral degenerative disc disease Surgery/Procedure Performed: Right sided lumbar transforaminal epidural steroid injection L4-5, L5- S1 under fluoroscopic guidance pediatrician: No Type of Anesthesia: Local MAC RN Documented Start/Stop Times: Operation Date: 03/10/25 08:50 Case Time Into Pre-Op 03/10/25 07:16 Anesthesia Start 03/10/25 08:34 Into Room 03/10/25 08:34 Procedure Start 03/10/25 08:42 Procedure End 03/10/25 08:45 Anesthesia End 03/10/25 08:48 Out of Room 03/10/25 08:48 Procedure Start Time: 08:49 Procedure Stop Time: 08:49 Select all DRAINS/GRAFTS/IMPLANTS that apply: None Estimated Blood Loss: 1 Specimen collected: No Description of surgery: DESCRIPTION OF PROCEDURE: History and physical of today was reviewed. Risks and benefits of the procedure were explained. The patient understood and agreed to proceed. Informed consent was obtained. IV inserted per routine protocol. The patient was taken to the operating room and placed in the prone position with a pillow positioned underneath the abdomen. The right side of the lower back was prepped and draped in a sterile fashion using iodine x3. Under fluoroscopy guidance on oblique view, the L4 through S1 vertebral bodies were visualized. The skin and subcutaneous tissue was anesthetized with approximately 5 mL of 1% lidocaine using a 25-gauge regular needle. Under direct visualization with fluoroscopy at approximately 35-degree angle, starting on the right L4, ending on the right L5, using a 22-gauge 5-inch spinal needle, the needle was advanced via the skin. The tip of the needle was maneuvered and directed towards the inferior and medial gutter of the transverse process at the superiormost aspect of the neural foramen. Once the tip of the needle was at the vicinity of the foramen, after negative aspiration for blood or CSF, a total of 1 mL of contrast was injected in divided doses between both levels to confirm correct placement of the needle as well as medial spread. The confirmation was obtained on AP as well as lateral view. After repeated negative aspiration and confirmation on AP as well as lateral view, a total of 6 mL of preservative-free 0.25% Marcaine with 80 mg of Depo-Medrol was injected in divided doses between both levels. The needles were then removed intact. The patient experienced no sign or symptoms of intrathecal or intravascular injection. The patient experienced no paresthesia. The procedure was completed without any apparent difficulty or any complications. The patient appeared to tolerate it well. Assessment and plan: This is a 65-year-old female with lumbosacral radiculopathy, lumbosacral spinal stenosis, lumbosacral degenerative disc disease status post right-sided lumbar transforaminal epidural steroid injection L4-5, L5-S1 under fluoroscopic guidance, patient will continue her current medications, patient will follow-up in approximately 2 weeks for reevaluation. Surgical Findings: 0 Complications Complications: No Admit VTE Documentation VTE Present on Admission: No VTE Mechan Device Prophylaxis: None VTE Pharm Prophylaxis ordered?: No 03/10/25 0852 Cosigner Signature (if applicable): CC: Dr. Montana Quiñonez MD; Dr. Hernandez Mosley MD Signed Normal [facility] Absolute lymphocyte countOrd ered By: Hernandez Mosley on 12-02-2024 Lymphocytes Auto (Unsp spec) [#/Vol] 2.21 10*3/uL 0.83-4.51 [facility] Absolute neutrophil countOrd ered By: Hernandez Mosley on 12-02-2024 Neutrophils (Bld) [#/Vol] 7.5 10*3/uL 2.0-7.7 [facility] Anion gap in Serum or Plasma Ordered By: Hernandez Mosley on 12-02-2024 Anion gap [Moles/Vol] 15 mmol/L 5-15 [facility] Automated lymphocyte count a s percentage of total leukocytesOrdered By: Hernandez Mosley on 12-02-2024 Lymphocytes/100 WBC Auto (Unsp spec) 20.2 % - [facility] BUN/creatinine ratioOrdered By: Hernandez Mosley on 12-02-2024 Urea nitrogen/Creatinine [Mass ratio] 19.5 mg/mg 10-20 [facility] Basophil percentageOrdered B y: Hernandez Mosley on 12-02-2024 Basophils/100 WBC (Bld) 0.5 % 0-1 [facility] Bilirubin, totalOrdered By: Hernandez Mosley on 12-02-2024 Bilirubin [Mass/Vol] 0.36 mg/dL 0.00-1.30 [facility] CBC W/Diff, Automatedon 11-21 Absolute Lymph 2.21 X10 3/uL Normal 0.83-4.51 [facility] Comment on above: Performed By: #### L 100.0100, L500.4050, L501.9520 ####[facility] [address] [place], [address] Absolute Neut 7.5 X10 3/uL Normal 2.0-7.7 [facility] Comment on above: Performed By: #### L 100.0100, L500.4050, L501.9520 ####[facility] [address] [place], [address] Basophils/100 WBC (Bld) 0.5 % Normal 0-1 [facility] Comment on above: Performed By: #### L 100.0100, L500.4050, L501.9520 ####[facility] [address] [place], [address] Eosinophils/100 WBC (Bld) 0.7 % Normal 0-5 [facility] Comment on above: Performed By: #### L 100.0100, L500.4050, L501.9520 ####[facility] [address] [place], [address] Erythrocyte distribution width (RBC) [Ratio] 13.2 % Normal 11.6-14.6 [facility] Comment on above: Performed By: #### L 100.0100, L500.4050, L501.9520 ####[facility] [address] [place], [address] Hematocrit (Bld) [Volume fraction] 41.5 % Normal 37-47 [facility] Comment on above: Performed By: #### L 100.0100, L500.4050, L501.9520 ####[facility] [address] [place], [address] Hemoglobin (Bld) [Mass/Vol] 13.7 g/dL Normal 12.0-15.0 [facility] Comment on above: Performed By: #### L 100.0100, L500.4050, L501.9520 ####[facility] [address] [place], [address] IG% 0.500 Normal 0.0-0.9 [facility] Comment on above: Result Comment: IG% - Immature Granulocytes (promyelocytes, myelocytes and metamyelocytes) > 1% indicates that a LEFT SHIFT is Present. Performed By: #### L 100.0100, L500.4050, L501.9520 ####[facility] [address] [place], [address] Lymphocytes/100 WBC (Bld) 20.2 % Normal 19-41 [facility] Comment on above: Performed By: #### L 100.0100, L500.4050, L501.9520 ####[facility] [address] [place], [address] MCH (RBC) [Entitic mass] 30.8 pg Normal 27.0-32.0 [facility] Comment on above: Performed By: #### L 100.0100, L500.4050, L501.9520 ####[facility] [address] [place], [address] MCHC (RBC) [Mass/Vol] 33.0 g/dL Normal 32-36 [facility] Comment on above: Performed By: #### L 100.0100, L500.4050, L501.9520 ####[facility] [address] [place], [address] MCV (RBC) [Entitic vol] 93.3 fL Normal 81-99 [facility] Comment on above: Performed By: #### L 100.0100, L500.4050, L501.9520 ####[facility] [address] [place], [address] Monocytes/100 WBC (Bld) 9.6 % Normal 0-10 [facility] Comment on above: Performed By: #### L 100.0100, L500.4050, L501.9520 ####[facility] [address] [place], [address] Neutrophils/100 WBC (Bld) 68.5 % Normal 47-70 [facility] Comment on above: Performed By: #### L 100.0100, L500.4050, L501.9520 ####[facility] [address] [place], [address] Nucleated RBC (Bld) [#/Vol] 0 10*3/uL Normal 0-5 [facility] Comment on above: Performed By: #### L 100.0100, L500.4050, L501.9520 ####[facility] [address] [place], [address] Platelet mean volume (Bld) [Entitic vol] 9.7 fL Normal 6.2-12.0 [facility] Comment on above: Performed By: #### L 100.0100, L500.4050, L501.9520 ####[facility] [address] [place], [address] Platelets (Bld) [#/Vol] 328 10*3/uL Normal 150-450 [facility] Comment on above: Performed By: #### L 100.0100, L500.4050, L501.9520 ####[facility] [address] [place], [address] RBC (Bld) [#/Vol] 4.45 10*6/uL Normal 4.2-5.4 [facility] Comment on above: Performed By: #### L 100.0100, L500.4050, L501.9520 ####[facility] [address] [place], [address] RDW SD 45.4 fl High 35.1-43.9 [facility] Comment on above: Performed By: #### L 100.0100, L500.4050, L501.9520 ####[facility] [address] [place], [address] WBC (Bld) [#/Vol] 11.0 10*3/uL Normal 4.4-11.0 [facility] Comment on above: Performed By: #### L 100.0100, L500.4050, L501.9520 ####[facility] [address] [place], [address] Carbon dioxide, total [Moles /volume] in Central venous bloodOrdered By: Hernandez Mosley on 12-02-2024 CO2 [Moles/Vol] 23.3 mmol/L 21.0-32.0 [facility] Chloride assayOrdered By: Jer Mosley on 12-02-2024 Chloride [Moles/Vol] 99 mmol/L 98-108 [facility] Metabolic Prof ilon 12-02-2024 Albumin [Mass/Vol] 4.5 g/dL Normal 3.4-4.8 [facility] Comment on above: Performed By: #### L 100.0100, L500.4050, L501.9520 ####[facility] [address] [place], [address] Albumin/Globulin [Mass ratio] 1.6 {ratio} Normal 0.9-2.4 [facility] Comment on above: Performed By: #### L 100.0100, L500.4050, L501.9520 ####[facility] [address] [place], [address] ALK PHOS 82 U/L Normal 35-104 [facility] Comment on above: Performed By: #### L 100.0100, L500.4050, L501.9520 ####[facility] [address] [place], [address] ALT [Catalytic activity/Vol] 24 U/L Normal <=34 [facility] Comment on above: Performed By: #### L 100.0100, L500.4050, L501.9520 ####[facility] [address] [place], [address] AST [Catalytic activity/Vol] 22 U/L Normal <=31 [facility] Comment on above: Performed By: #### L 100.0100, L500.4050, L501.9520 ####[facility] [address] [place], [address] Bilirubin [Mass/Vol] 0.36 mg/dL Normal 0.00-1.30 [facility] Comment on above: Performed By: #### L 100.0100, L500.4050, L501.9520 ####[facility] [address] [place], [address] BUN/CRE 19.5 RATIO Normal 10-20 [facility] Comment on above: Performed By: #### L 100.0100, L500.4050, L501.9520 ####[facility] [address] [place], [address] Calcium [Mass/Vol] 9.5 mg/dL Normal 7.6-11.0 [facility] Comment on above: Performed By: #### L 100.0100, L500.4050, L501.9520 ####[facility] [address] [place], [address] Chloride [Moles/Vol] 99 mmol/L Normal 98-108 [facility] Comment on above: Performed By: #### L 100.0100, L500.4050, L501.9520 ####[facility] [address] [place], [address] CO2 [Moles/Vol] 23.3 mmol/L Normal 21.0-32.0 [facility] Comment on above: Performed By: #### L 100.0100, L500.4050, L501.9520 ####[facility] [address] [place], [address] Creatinine [Mass/Vol] 0.82 mg/dL Normal 0.70-1.20 [facility] Comment on above: Performed By: #### L 100.0100, L500.4050, L501.9520 ####[facility] [address] [place], [address] GAP 15 Normal 5-15 [facility] Comment on above: Performed By: #### L 100.0100, L500.4050, L501.9520 ####[facility] [address] [place], [address] GFR/1.73 sq M.predicted among non-blacks MDRD (S/P/Bld) [Vol rate/Area] 81 mL/min/{1.73_m2} Normal >60 [facility] Comment on above: Result Comment: mL/m in/1.73m2 CKD-EPI Creatinine Equation (2020) Performed By: #### L 100.0100, L500.4050, L501.9520 ####[facility] [address] [place], [address] Globulin (S) [Mass/Vol] 2.8 g/dL Normal 2.2-4.2 [facility] Comment on above: Performed By: #### L 100.0100, L500.4050, L501.9520 ####[facility] [address] [place], [address] Glucose [Mass/Vol] 81 mg/dL Normal 70-99 [facility] Comment on above: Performed By: #### L 100.0100, L500.4050, L501.9520 ####[facility] [address] [place], [address] Potassium [Moles/Vol] 3.7 mmol/L Normal 3.3-5.1 [facility] Comment on above: Performed By: #### L 100.0100, L500.4050, L501.9520 ####[facility] [address] [place], [address] Sodium [Moles/Vol] 137 mmol/L Normal 133-145 [facility] Comment on above: Performed By: #### L 100.0100, L500.4050, L501.9520 ####[facility] [address] [place], [address] T PROT 7.3 g/dL Normal 5.9-8.4 [facility] Comment on above: Performed By: #### L 100.0100, L500.4050, L501.9520 ####[facility] [address] [place], [address] Urea nitrogen [Mass/Vol] 16 mg/dL Normal 4-19 [facility] Comment on above: Performed By: #### L 100.0100, L500.4050, L501.9520 ####[facility] [address] [place], [address] Eosinophil percentageOrdered By: Hernandez Mosley on 12-02-2024 Eosinophils/100 WBC (Bld) 0.7 % 0-5 [facility] Erythrocyte distribution wid th ratioOrdered By: Hernandez Mosley on 12-02-2024 Erythrocyte distribution width (RBC) [Ratio] 13.2 % 11.6-14.6 [facility] Erythrocyte distribution wid th standard deviationOrdered By: Hernandez Mosley on 12-02-2024 Erythrocyte distribution width (RBC) [Ratio] 45.4 fl High 35.1-43.9 [facility] Glomerular filtration rate ( GFR) estimation/1.73 sq m using serum, plasma, or whole bOrdered By: Hernandez Mosley on 12-02-2024 GFR/1.73 sq M.predicted among non-blacks MDRD (S/P/Bld) [Vol rate/Area] 81 mL/min/{1.73_m2} >60 [facility] Comment on above: mL/min/1.73m2 CKD-EP I Creatinine Equation (2020) Hematocrit Auto (Bld) [Volum e fraction]Ordered By: Hernandez Mosley on 12-02-2024 Hematocrit (Bld) [Volume fraction] 41.5 % 37-47 [facility] Hemoglobin measurementOrdere d By: Hernandez Mosley on 12-02-2024 Hemoglobin (Bld) [Mass/Vol] 13.7 g/dL 12.0-15.0 [facility] Immature granulocytes/100 WB C Auto (Bld)Ordered By: Hernandez Mosley 12-02-2024 Immature granulocytes/100 WBC (Bld) 0.500 % 0.0-0.9 [facility] Comment on above: IG% - Immature Granu locytes (promyelocytes, myelocytes and metamyelocytes) > 1% indicates that a LEFT SHIFT is Present. Laboratory - Chemistry and C hemistry - challengeOrdered By: Hernandez Mosley on 12-02-2024 AST [Catalytic activity/Vol] 22 U/L <32 [facility] MCV (mean corpuscular volume ) determinationOrdered By: Hernandez Mosley 12-02-2024 MCV (RBC) [Entitic vol] 93.3 fL 81-99 [facility] Mean corpuscular hemoglobin (MCH) determinationOrdered By: Hernandez Mosley 12-02-2024 MCH (RBC) [Entitic mass] 30.8 pg 27.0-32.0 [facility] Mean corpuscular hemoglobin concentration (MCHC) determinationOrdered By: Hernandez Mosley 12-02-2024 MCHC (RBC) [Mass/Vol] 33.0 g/dL 32-36 [facility] Mean platelet volume determi nationOrdered By: Hernandez Mosley 12-02-2024 Platelet mean volume (Bld) [Entitic vol] 9.7 fL 6.2-12.0 [facility] Monocyte percentageOrdered B y: Hernandez Mosley 12-02-2024 Monocytes/100 WBC (Bld) 9.6 % 0-10 [facility] Neutrophil percentageOrdered By: Hernandez Mosley on 12-02-2024 Neutrophils/100 WBC (Bld) 68.5 % 47-70 [facility] Nucleated red blood cell per centageOrdered By: Hernandez Mosley on 12-02-2024 Nucleated RBC/100 WBC (Bld) [Ratio] 0 % 0-5 [facility] Platelet countOrdered By: Jer Mosley on 12-02-2024 Platelets (Bld) [#/Vol] 328 10*3/uL 150-450 [facility] Potassium measurement (mass/ volume)Ordered By: Hernandez Mosley on 12-02-2024 Potassium (Unsp spec) [Mass/Vol] 3.7 mmol/L 3.3-5.1 [facility] RBC Auto (Bld) [#/Vol]Ordere d By: Hernandez Mosley on 12-02-2024 RBC (Bld) [#/Vol] 4.45 10*6/uL 4.2-5.4 [facility] Serum creatinine measurement (mass/volume)Ordered By: Hernandez Mosley on 12-02-2024 Creatinine [Mass/Vol] 0.82 mg/dL 0.70-1.20 [facility] Serum globulin measurementOr dered By: Hernandez Mosley 12-02-2024 Globulin (S) [Mass/Vol] 2.8 g/dL 2.2-4.2 [facility] Serum glucose measurement (m ass/volume)Ordered By: Hernandez Mosley 12-02-2024 Glucose [Mass/Vol] 81 mg/dL 70-99 [facility] Serum or plasma alanine bergman otransferase (ALT) measurementOrdered By: Hernandez Mosley 12-02-2024 ALT [Catalytic activity/Vol] 24 U/L <35 [facility] Serum or plasma albumin elis urement (mass/volume)Ordered By: Hernandez Mosley 12-02-2024 Albumin [Mass/Vol] 4.5 g/dL 3.4-4.8 [facility] Serum or plasma albumin/glob ulin mass ratioOrdered By: Hernandez Mosley 12-02-2024 Albumin/Globulin [Mass ratio] 1.6 {ratio} 0.9-2.4 [facility] Serum or plasma alkaline radha sphatase measurementOrdered By: Hernandez Mosley on 12-02-2024 ALP [Catalytic activity/Vol] 82 U/L 35-104 [facility] Serum or plasma calcium elis urement (mass/volume)Ordered By: Hernandez Mosley on 12-02-2024 Calcium [Mass/Vol] 9.5 mg/dL 7.6-11.0 [facility] Serum or plasma urea nitroge n measurement (mass/volume)Ordered By: Hernandez Mosley on 12-02-2024 Urea nitrogen [Mass/Vol] 16 mg/dL 4-19 [facility] Sodium levelOrdered By: Hernandez Mosley on 12-02-2024 Sodium [Moles/Vol] 137 mmol/L 133-145 [facility] TSH DL <= 0.005 mIU/L QnOrde red By: Hernandez Mosley on 12-02-2024 TSH Qn 2.390 uIU/mL 0.300-4.200 [facility] Thyroid Stim Hormone (TSH)on 12-02-2024 TSH 2.390 uIU/mL Normal 0.300-4.200 [facility] Comment on above: Performed By: #### L 100.0100, L500.4050, L501.9520 ####[facility] [address] [place], [address] Total proteinOrdered By: Hernandez Mosley on 12-02-2024 Protein [Mass/Vol] 7.3 g/dL 5.9-8.4 [facility] White blood cell (WBC) count Ordered By: Hernandez Mosley on 12-02-2024 WBC (Bld) [#/Vol] 11.0 10*3/uL 4.4-11.0 [facility] Misc.on 11-07-2024 [facility] Misc. COMMENT Normal . [facility] Comment on above: Order Comment: [id number] LEVELS RED FRZ Result Comment: Test Ordered: [id number] Ustekinumab Drug + Antibody Ustekinumab 4.2 ug/mL [...] R, et al. Clin Gastroenterol Hepatol 2017;15: 1232-2865. 4. Loreto CONNELL et al. Br J Dermatol;2015:173;855-857. 5. Rashaun H, et al. PLOS ONE DOI;10:1371/journal.pone.7629550. 6. Yue Mccarthy et al. Br J Dermatol 2014;170:261-273. These tests were developed and their performance characteristics determined by [employer]. They have not been cleared or approved by the Food and Drug Administration. However, both drug and anti-drug antibody assays have been developed and validated in accordance with FDA Guidance for Industry documents: Bioanalytical Method Validation (2013) and Assay Development and Validation for Immunogenicity Testing of Therapeutic Protein Products (2016). Performed at: [employer] [address] [place] [id number] Senior Sales Representative: Gustavo Garcia MD, Phone: [phone] Performed at: [address] [id number] Senior Sales Representative: Bhaskar Mane PhD, Phone: [phone] Performed By: #### L 500.4050, L3410.9998, L100.0100, L101.9900, L501.6710 ####[facility] [address] [place], [address] Absolute lymphocyte countOrd ered By: Stanley Godwin on 10-28-2024 Lymphocytes Auto (Unsp spec) [#/Vol] 1.87 10*3/uL 0.83-4.51 [facility] Absolute neutrophil countOrd ered By: Stanley Godwin on 10-28-2024 Neutrophils (Bld) [#/Vol] 5.2 10*3/uL 2.0-7.7 [facility] Anion gap in Serum or Plasma Ordered By: Stanleyelias Godwin on 10-28-2024 Anion gap [Moles/Vol] 13 mmol/L 5- [facility] Automated lymphocyte count a s percentage of total leukocytesOrdered By: Stanleyelias Godwin on 10-28-2024 Lymphocytes/100 WBC Auto (Unsp spec) 23.0 % - [facility] BUN/creatinine ratioOrdered By: Stanleyelias Godwin on 10-28-2024 Urea nitrogen/Creatinine [Mass ratio] 20.4 mg/mg High 10- [facility] Basophil percentageOrdered B y: Stanleyelias Godwin on 10-28-2024 Basophils/100 WBC (Bld) 1.0 % 0-1 [facility] Bilirubin, totalOrdered By: Stanleyelias Godwin on 10-28-2024 Bilirubin [Mass/Vol] 0.43 mg/dL 0.00-1.30 [facility] CBC W/Diff, Automatedon Absolute Lymph 1.87 X10 3/uL Normal 0.83-4.51 [facility] Comment on above: Performed By: #### L 500.4050, L3410.9998, L100.0100, L101.9900, L501.6710 ####[facility] [address] [place], [address] Absolute Neut 5.2 X10 3/uL Normal 2.0-7.7 [facility] Comment on above: Performed By: #### L 500.4050, L3410.9998, L100.0100, L101.9900, L501.6710 ####[facility] [address] [place], [address] Basophils/100 WBC (Bld) 1.0 % Normal 0-1 [facility] Comment on above: Performed By: #### L 500.4050, L3410.9998, L100.0100, L101.9900, L501.6710 ####[facility] [address] [place], [address] Eosinophils/100 WBC (Bld) 1.0 % Normal 0-5 [facility] Comment on above: Performed By: #### L 500.4050, L3410.9998, L100.0100, L101.9900, L501.6710 ####[facility] [address] [place], [address] Erythrocyte distribution width (RBC) [Ratio] 12.7 % Normal 11.6-14.6 [facility] Comment on above: Performed By: #### L 500.4050, L3410.9998, L100.0100, L101.9900, L501.6710 ####[facility] [address] [place], [address] Hematocrit (Bld) [Volume fraction] 41.7 % Normal 37-47 [facility] Comment on above: Performed By: #### L 500.4050, L3410.9998, L100.0100, L101.9900, L501.6710 ####[facility] [address] [place], [address] Hemoglobin (Bld) [Mass/Vol] 13.9 g/dL Normal 12.0-15.0 [facility] Comment on above: Performed By: #### L 500.4050, L3410.9998, L100.0100, L101.9900, L501.6710 ####[facility] [address] [place], [address] IG% 0.400 Normal 0.0-0.9 [facility] Comment on above: Result Comment: IG% - Immature Granulocytes (promyelocytes, myelocytes and metamyelocytes) > 1% indicates that a LEFT SHIFT is Present. Performed By: #### L 500.4050, L3410.9998, L100.0100, L101.9900, L501.6710 ####[facility] [address] [place], [address] Lymphocytes/100 WBC (Bld) 23.0 % Normal 19-41 [facility] Comment on above: Performed By: #### L 500.4050, L3410.9998, L100.0100, L101.9900, L501.6710 ####[facility] [address] [place], [address] MCH (RBC) [Entitic mass] 30.8 pg Normal 27.0-32.0 [facility] Comment on above: Performed By: #### L 500.4050, L3410.9998, L100.0100, L101.9900, L501.6710 ####[facility] [address] [place], [address] MCHC (RBC) [Mass/Vol] 33.3 g/dL Normal 32-36 [facility] Comment on above: Performed By: #### L 500.4050, L3410.9998, L100.0100, L101.9900, L501.6710 ####[facility] [address] [place], [address] MCV (RBC) [Entitic vol] 92.3 fL Normal 81-99 [facility] Comment on above: Performed By: #### L 500.4050, L3410.9998, L100.0100, L101.9900, L501.6710 ####[facility] [address] [place], [address] Monocytes/100 WBC (Bld) 10.1 % High 0-10 [facility] Comment on above: Performed By: #### L 500.4050, L3410.9998, L100.0100, L101.9900, L501.6710 ####[facility] [address] [place], [address] Neutrophils/100 WBC (Bld) 64.5 % Normal 47-70 [facility] Comment on above: Performed By: #### L 500.4050, L3410.9998, L100.0100, L101.9900, L501.6710 ####[facility] [address] [place], [address] Nucleated RBC (Bld) [#/Vol] 0 10*3/uL Normal 0-5 [facility] Comment on above: Performed By: #### L 500.4050, L3410.9998, L100.0100, L101.9900, L501.6710 ####[facility] [address] [place], [address] Platelet mean volume (Bld) [Entitic vol] 10.1 fL Normal 6.2-12.0 [facility] Comment on above: Performed By: #### L 500.4050, L3410.9998, L100.0100, L101.9900, L501.6710 ####[facility] [address] [place], [address] Platelets (Bld) [#/Vol] 319 10*3/uL Normal 150-450 [facility] Comment on above: Performed By: #### L 500.4050, L3410.9998, L100.0100, L101.9900, L501.6710 ####[facility] [address] [place], [address] RBC (Bld) [#/Vol] 4.52 10*6/uL Normal 4.2-5.4 [facility] Comment on above: Performed By: #### L 500.4050, L3410.9998, L100.0100, L101.9900, L501.6710 ####[facility] [address] [place], [address] RDW SD 43.3 fl Normal 35.1-43.9 [facility] Comment on above: Performed By: #### L 500.4050, L3410.9998, L100.0100, L101.9900, L501.6710 ####[facility] [address] [place], [place], [address] WBC (Bld) [#/Vol] 8.1 10*3/uL Normal 4.4-11.0 [facility] Comment on above: Performed By: #### L 500.4050, L3410.9998, L100.0100, L101.9900, L501.6710 ####[facility] [address] [place], [place], [id number] CRPon 10-28-2024 C-REACTIVE PROT 6.21 mg/L High 0.0-3.0 [facility] Comment on above: Performed By: #### L 500.4050, L3410.9998, L100.0100, L101.9900, L501.6710 ####[facility] [address] [place], [place], [id number] CRP [Mass/Vol]Ordered By: Ra jeri Godwin on 10-28-2024 C-Reactive Protein Extended Range 6.21 mg/L High 0.0-3.0 [facility] Carbon dioxide, total [Moles /volume] in Central venous bloodOrdered By: Stanley Godwin on 10-28-2024 CO2 [Moles/Vol] 25.4 mmol/L 21.0-32.0 [facility] Chloride assayOrdered By: Ra jeri Godwin on 10-28-2024 Chloride [Moles/Vol] 99 mmol/L 98-108 [facility] Metabolic Prof ilon 10-28-2024 Albumin [Mass/Vol] 4.3 g/dL Normal 3.4-4.8 [facility] Comment on above: Order Comment: [id number] Performed By: #### L 500.4050, L3410.9998, L100.0100, L101.9900, L501.6710 ####[facility] [address] [place], [address] Albumin/Globulin [Mass ratio] 1.5 {ratio} Normal 0.9-2.4 [facility] Comment on above: Order Comment: [id number] Performed By: #### L 500.4050, L3410.9998, L100.0100, L101.9900, L501.6710 ####[facility] [address] [place], [address] [place] PHOS 93 U/L Normal 35-104 [facility] Comment on above: Order Comment: [id number] Performed By: #### L 500.4050, L3410.9998, L100.0100, L101.9900, L501.6710 ####[facility] [address] [place], [address] ALT [Catalytic activity/Vol] 19 U/L Normal <=34 [facility] Comment on above: Order Comment: [id number] 4 Performed By: #### L 500.4050, L3410.9998, L100.0100, L101.9900, L501.6710 ####[facility] [address] [place], [address] AST [Catalytic activity/Vol] 18 U/L Normal <=31 [facility] Comment on above: Order Comment: 20247 4 Performed By: #### L 500.4050, L3410.9998, L100.0100, L101.9900, L501.6710 ####[facility] [address] [place], [address] Bilirubin [Mass/Vol] 0.43 mg/dL Normal 0.00-1.30 [facility] Comment on above: Order Comment: [id number] 4 Performed By: #### L 500.4050, L3410.9998, L100.0100, L101.9900, L501.6710 ####[facility] [address] [place], [address] BUN/CRE 20.4 RATIO High 10-20 [facility] Comment on above: Order Comment: 62969 4 Performed By: #### L 500.4050, L3410.9998, L100.0100, L101.9900, L501.6710 ####[facility] [address] [place], [address] Calcium [Mass/Vol] 9.2 mg/dL Normal 7.6-11.0 [facility] Comment on above: Order Comment: 47657 4 Performed By: #### L 500.4050, L3410.9998, L100.0100, L101.9900, L501.6710 ####[facility] [address] [place], [address] Chloride [Moles/Vol] 99 mmol/L Normal 98-108 [facility] Comment on above: Order Comment: 76462 4 Performed By: #### L 500.4050, L3410.9998, L100.0100, L101.9900, L501.6710 ####[facility] [address] [place], [address] CO2 [Moles/Vol] 25.4 mmol/L Normal 21.0-32.0 [facility] Comment on above: Order Comment: 45999 4 Performed By: #### L 500.4050, L3410.9998, L100.0100, L101.9900, L501.6710 ####[facility] [address] [place], [address] Creatinine [Mass/Vol] 0.72 mg/dL Normal 0.70-1.20 [facility] Comment on above: Order Comment: 93358 4 Performed By: #### L 500.4050, L3410.9998, L100.0100, L101.9900, L501.6710 ####[facility] [address] [place], [address] GAP 13 Normal 5-15 [facility] Comment on above: Order Comment: 20317 4 Performed By: #### L 500.4050, L3410.9998, L100.0100, L101.9900, L501.6710 ####[facility] [address] [place], [address] GFR/1.73 sq M.predicted among non-blacks MDRD (S/P/Bld) [Vol rate/Area] 94 mL/min/{1.73_m2} Normal >60 [facility] Comment on above: Order Comment: 49895 4 Result Comment: mL/m in/1.73m2 CKD-EPI Creatinine Equation (2020) Performed By: #### L 500.4050, L3410.9998, L100.0100, L101.9900, L501.6710 ####[facility] [address] [place], [address] Globulin (S) [Mass/Vol] 2.9 g/dL Normal 2.2-4.2 [facility] Comment on above: Order Comment: 44916 4 Performed By: #### L 500.4050, L3410.9998, L100.0100, L101.9900, L501.6710 ####[facility] [address] [place], [address] Glucose [Mass/Vol] 96 mg/dL Normal 70-99 [facility] Comment on above: Order Comment: 31962 4 Performed By: #### L 500.4050, L3410.9998, L100.0100, L101.9900, L501.6710 ####[facility] [address] [place], [address] Potassium [Moles/Vol] 3.9 mmol/L Normal 3.3-5.1 [facility] Comment on above: Order Comment: 80730 4 Performed By: #### L 500.4050, L3410.9998, L100.0100, L101.9900, L501.6710 ####[facility] [address] [place], [address] Sodium [Moles/Vol] 137 mmol/L Normal 133-145 [facility] Comment on above: Order Comment: 17782 4 Performed By: #### L 500.4050, L3410.9998, L100.0100, L101.9900, L501.6710 ####[facility] [address] [place], [address] T PROT 7.2 g/dL Normal 5.9-8.4 [facility] Comment on above: Order Comment: 09589 4 Performed By: #### L 500.4050, L3410.9998, L100.0100, L101.9900, L501.6710 ####[facility] [address] [place], [address] Urea nitrogen [Mass/Vol] 15 mg/dL Normal 4-19 [facility] Comment on above: Order Comment: 13267 4 Performed By: #### L 500.4050, L3410.9998, L100.0100, L101.9900, L501.6710 ####[facility] [address] [place], [address] Eosinophil percentageOrdered By: Stanley Friend on 10-28-2024 Eosinophils/100 WBC (Bld) 1.0 % 0-5 [facility] Erythrocyte Sed Rateon 10-28 SED RATE 2 mm/hr Normal 0-30 [facility] Comment on above: Performed By: #### L 500.4050, L3410.9998, L100.0100, L101.9900, L501.6710 ####[facility] [address] [place], [address] Erythrocyte distribution wid th (RBC) [Ratio]Ordered By: Stanley Godwin on 10-28-2024 Erythrocyte distribution width (RBC) [Entitic vol] 43.3 fL 35.1-43.9 [facility] Erythrocyte distribution wid th ratioOrdered By: Stanley Godwin on 10-28-2024 Erythrocyte distribution width (RBC) [Ratio] 12.7 % 11.6-14.6 [facility] Erythrocyte distribution wid th standard deviationOrdered By: Stanley Godwin on 10-28-2024 Erythrocyte distribution width (RBC) [Ratio] 43.3 fl 35.1-43.9 [facility] Erythrocyte sedimentation ra teOrdered By: Stanley Godwin on 10-28-2024 ESR (Bld) [Velocity] 2 mm/h 0-30 [facility] GFR/1.73 sq M.predicted dayday g non-blacks MDRD (S/P/Bld) [Vol rate/Area]Ordered By: Stanley Godwin on 10-28-2024 Estimated GFR (MDRD) Non-Af Amer 94 >60 [facility] Comment on above: mL/min/1.73m2 CKD-EP I Creatinine Equation (2020) Gastroenterology Visit Repor ton 10-28-2024 Gastroenterology Visit Report [facility] [address] [place] [address] OFFICE VISIT Date of Service: 10/28/24 MR#: [id number] Acct: [id number] Name: NELSONSofyaIVETTE Rep #: [id number] : 1960 Provider: Stanley Godwin DO Age/Sex: 64/F Location: [facility] [place] Status: Signed Intake Vital Signs 10/07/24 11:21 [...] mg PO DAILY #30 caps 06/25/24 0 10/28/24 Rx release hyoscyamine sulfate 0.125 mg tablet 0.125 mg PO BID-QID PRN dyspeps ia 08/13/24 10/28/24 Rx #30 tabs dicyclomine 20 mg tablet 20 mg PO TID PRN abdominal pain 10/28/24 History PFSH Medical History History of Crohn's disease [...] to the office today for follow up. [facility] hospitalization ..16-8.16 for abdominal pain. EGD 03.20.16???scope could not be advanced through duodenal bulb due to concentric narrowing less likely mass; no obvious ulcerations; duodenitis with duodenal ulcers; gastritis; healing prepyloric ulcer. H.Pylori neg Prior workup: ?CT abd/pel 09.21.23???colonic diverticulosis with diverticulitis *[facility] hospitalization 3.10.14-3 for management of abdominal pain [...] flexure inflammation with friability and granularity OV 4.1.24 Pt states she has been feeling well [...] GI s (more content not included)... Normal [facility] Glomerular filtration rate ( GFR) estimation/1.73 sq m using serum, plasma, or whole bOrdered By: Stanley Godwin on 10-28-2024 GFR/1.73 sq M.predicted among non-blacks MDRD (S/P/Bld) [Vol rate/Area] 94 mL/min/{1.73_m2} >60 [facility] Comment on above: mL/min/1.73m2 CKD-EP I Creatinine Equation (2020) Hematocrit Auto (Bld) [Volum e fraction]Ordered By: Stanley Godwin on 10-28-2024 Hematocrit (Bld) [Volume fraction] 41.7 % 37-47 [facility] Hemoglobin measurementOrdere d By: Stanley Godwin on 10-28-2024 Hemoglobin (Bld) [Mass/Vol] 13.9 g/dL 12.0-15.0 [facility] Immature granulocytes/100 WB C Auto (Bld)Ordered By: Stanley Godwin on 10-28-2024 Immature granulocytes/100 WBC (Bld) 0.400 % 0.0-0.9 [facility] Comment on above: IG% - Immature Granu locytes (promyelocytes, myelocytes and metamyelocytes) > 1% indicates that a LEFT SHIFT is Present. Laboratory - Chemistry and C hemistry - challengeOrdered By: Stanley Godwin on 10-28-2024 AST [Catalytic activity/Vol] 18 U/L <32 [facility] Lymphocytes Auto (Unsp spec) [#/Vol]Ordered By: Stanley Godwin on 10-28-2024 Lymphocytes (Bld) [#/Vol] 1.87 10*3/uL 0.83-4.51 [facility] Lymphocytes/100 WBC Auto (Un sp spec)Ordered By: Stanley Godwin on 10-28-2024 Lymphocytes/100 WBC (Bld) 23.0 % 19-41 [facility] MCV (mean corpuscular volume ) determinationOrdered By: Stanley Godwin on 10-28-2024 MCV (RBC) [Entitic vol] 92.3 fL 81-99 [facility] Mean corpuscular hemoglobin (MCH) determinationOrdered By: Stanley Godwin on 10-28-2024 MCH (RBC) [Entitic mass] 30.8 pg 27.0-32.0 [facility] Mean corpuscular hemoglobin concentration (MCHC) determinationOrdered By: Stanley Godwin on 10-28-2024 MCHC (RBC) [Mass/Vol] 33.3 g/dL 32-36 [facility] Mean platelet volume determi nationOrdered By: Stanley Godwin on 10-28-2024 Platelet mean volume (Bld) [Entitic vol] 10.1 fL 6.2-12.0 [facility] Monocyte percentageOrdered B y: Stanley Godwin on 10-28-2024 Monocytes/100 WBC (Bld) 10.1 % High 0-10 [facility] Neutrophil percentageOrdered By: Stanley Godwin on 10-28-2024 Neutrophils/100 WBC (Bld) 64.5 % 47-70 [facility] No Panel InformationOrdered By: Stanely Godwin on 10-28-2024 Miscellaneous Test COMMENT . [facility] Comment on above: Test Ordered: [id number] Ustekinumab Drug + AntibodyUstekinumab 4.2 ug/mL ES [...] antibodies occurred in 4-6% of patients.(6)References:1. Jessenia SHANE et al. Gastroenterology 2016;150(4):S408.2. Jessenia Farmer et al. P007 Exposure-Response to SC Ustekinumab in Moderate - Severe Crohn's Disease: Results from the IM-UNITI Maintenance Study. Advances in AIBD. April 2017.3. [place] et al. Clin Gastroenterol Hepatol 2017;15: 7144-3563.4. Loreto SP, et al. Br J Dermatol;2015:173;855-857.5. Rashaun H, et al. PLOS ONE DOI;10:1371/journal.pone.9848348.6. Yue L, et al. Br J Dermatol 2014;170:261-273.These tests were developed and their performancecharacteristics determined by [employer]. They have not beencleared or approved by the Food and Drug Administration.However, both drug and anti-drug antibody assays have beendeveloped and validated in accordance with FDA Guidance forIndustry documents: Bioanalytical Method Validation (2013)and Assay Development and Validation for ImmunogenicityTesting of Therapeutic Protein Products (2016).Performed at: [facility] [address] [id number] Director: Gustavo Garcia MD, Phone: [phone] at: [facility] [id number] Director: Bhaskar Mane PhD, Phone: [phone] Nucleated red blood cell per centageOrdered By: Stanley Godwin on 10-28-2024 Nucleated RBC/100 WBC (Bld) [Ratio] 0 % 0-5 [facility] Platelet countOrdered By: Ra jeri Godwin on 10-28-2024 Platelets (Bld) [#/Vol] 319 10*3/uL 150-450 [facility] Potassium (Unsp spec) [Mass/ Vol]Ordered By: Stanley Godwin on 10-28-2024 Potassium [Moles/Vol] 3.9 mmol/L 3.3-5.1 [facility] Potassium measurement (mass/ volume)Ordered By: Stanley Godwin on 10-28-2024 Potassium (Unsp spec) [Mass/Vol] 3.9 mmol/L 3.3-5.1 [facility] RBC Auto (Bld) [#/Vol]Ordere d By: Stanley Godwin on 10-28-2024 RBC (Bld) [#/Vol] 4.52 10*6/uL 4.2-5.4 [facility] Serum creatinine measurement (mass/volume)Ordered By: Stanley Godwin on 10-28-2024 Creatinine [Mass/Vol] 0.72 mg/dL 0.70-1.20 [facility] Serum globulin measurementOr dered By: Stanley Godwin on 10-28-2024 Globulin (S) [Mass/Vol] 2.9 g/dL 2.2-4.2 [facility] Serum glucose measurement (m ass/volume)Ordered By: Stanley Godwin on 10-28-2024 Glucose [Mass/Vol] 96 mg/dL 70-99 [facility] Serum or plasma C reactive p rotein measurement (mass/volume)Ordered By: Stanley Godwin on 10-28-2024 CRP [Mass/Vol] 6.21 mg/L High 0.0-3.0 [facility] Serum or plasma alanine bergman otransferase (ALT) measurementOrdered By: Stanley Godwin on 10-28-2024 ALT [Catalytic activity/Vol] 19 U/L <35 [facility] Serum or plasma albumin elis urement (mass/volume)Ordered By: Stanley Godwin on 10-28-2024 Albumin [Mass/Vol] 4.3 g/dL 3.4-4.8 [facility] Serum or plasma albumin/glob ulin mass ratioOrdered By: Stanley Godwin on 10-28-2024 Albumin/Globulin [Mass ratio] 1.5 {ratio} 0.9-2.4 [facility] Serum or plasma alkaline radha sphatase measurementOrdered By: Stanley Godwin on 10-28-2024 ALP [Catalytic activity/Vol] 93 U/L 35-104 [facility] Serum or plasma calcium elis urement (mass/volume)Ordered By: Stanley Godwin on 10-28-2024 Calcium [Mass/Vol] 9.2 mg/dL 7.6-11.0 [facility] Serum or plasma urea nitroge n measurement (mass/volume)Ordered By: Stanley Godwin on 10-28-2024 Urea nitrogen [Mass/Vol] 15 mg/dL 4-19 [facility] Sodium levelOrdered By: Armen farriscortney Godwin on 10-28-2024 Sodium [Moles/Vol] 137 mmol/L 133-145 [facility] Total proteinOrdered By: José Antonio mccartycortney Godwin on 10-28-2024 Protein [Mass/Vol] 7.2 g/dL 5.9-8.4 [facility] White blood cell (WBC) count Ordered By: Stanleyjeri Godwin on 10-28-2024 WBC (Bld) [#/Vol] 8.1 10*3/uL 4.4-11.0 [facility] Fluor Guidance for Spine Inj on 10-07-2024 Fluor Guidance for Spine Inj [facility] Imaging Services [address] [place] [address] [id number] Fluor Guidance for Spine Inj MR#: [id number] Acct: [id number] Name: JUDY REAGAN ANN Rep #: [id number] : 1960 F 64 From: Jose Roberto Berg i, DO PCP: Dr. Hernandez Mosley MD Status: [facility] Study: Fluor Guidance for Spine Inj Date of Exam: Exam# [id number] Ordering Dr: Montana Quiñonez MD PROCEDURE: Fluoroscopy [...] Montana Quiñonez MD; Dr. Hernandez Mosley MD Manager Shipping: Signed [facility] MR/POSTOP.ANEon 10-07-2024 MR/POSTOP.[facility] Medical Records Department [address] [place] [address] Anesthesia Postop Eval I 10/07/24 1208 MR#: [id number] Acct: [id number] Name: JUDY REAGAN ANN Rep #: [id number] : 1960 64 From: Montse Nicole CRNA PCP: Dr. Hernandez Mosley MD Status:REG SDC Y Race: C Location: [place] [address] Anesthesia: Postop Eval I Current Vital Signs [...] completed: Yes 10/07/24 1209 Date Montse Nicole [employer]OWERHOUSE [employer]ICIAN APPRENTICE Cosigner Signature: Date CC: Signed [facility] MR/EVUUPCMB2ah 10-07-2024 MR/POSTOPAN2 [facility] Medical Records Department [address] [place] [address] Anesthesia Postop Eval II 10/07/24 1226 MR#: [id number] Acct: [id number] Name: JUDY REAGAN ANN Rep #: [id number] : 1960 64 From: Yeimy Duggan PCP: Dr. Hernandez Mosley MD Status:REG SDC Y Race: C Location: [place] [address] Anesthesia Postop Eval I Sum Postop Eval Completion status Anesthesia document: Postop Eval 1 completed: Yes Anesthesia Postop Eval I Summary Anesthesia Postop Eval I Summary: Anesthesia Postop Eval I: Assessment Summary Airway patent Yes 10/07/24 12:09 [employer]HOUSE [employer]IC[employer] APPRENTICE.LMIL Spontaneous unlabored Yes 10/07/24 12:09 [employer]OWERHOUSE ELECT[employer]ICIAN APPRENTICE.LMIL respirations Mental status Awake 10/07/24 12:09 [employer]OWERHOUSE E[employer]ICIAN APPRENTICE.LMIL nausea No 10/07/24 12:09 [employer]OWERHOUSE ELECTRICIAN APPRENTICE.LMIL Vomiting No 10/07/24 12:09 [employer]OWERHOUSE ELECTRICIAN APPRENTICE.LMIL Anesthesia Postop Eval I: Fluid Summary Crystalloid volume administer 10 10/07/24 12:09 [employer]OWERHOUSE ELECTRICIAN APPRENTICE.LMIL (ml) Colloids volume administered ( ml) Blood Product volume administered (ml) Total IV fluid infused 10 10/07/24 12:09 [employer]OWERHOUSE [employer]LECTRICIAN APPRENTICE.LMIL Anesthesia Postop Eval I: Summary Notes Anesthesia Complication No 10/07/24 12:09 [employer]OWERHOUSE ELECTRICIAN APPRENTICE.LMIL Anesthesia Complication Comment: Post-operative progress note Anesthesia: Postop Eval II Evaluation Mental status: Awake Pain Level: 3 nausea: No Vomiting: No 10/07/24 1226 Date Yeimy Arzate Signature: Date CC: Signed Normal [facility] Operative Reporton 5 Operative Report [facility] Medical Records Department [address] [place] [address] Operative Report 10/07/24 1200 MR#: [id number] Acct: [id number] Name: JUDY REAGAN ANN Rep #: [id number] : 1960 64 From: Montana Quiñonez MD PCP: Dr. Hernandez Mosley MD Status:REG [facility] Location: [place] [address] Operative Report (Standard) Operative Information Date of Procedure: 10/07/24 Pre-Operative Diagnosis: Lumbosacral radiculopathy, lumbosacral degenerative disc disease, lumbosacral spinal stenosis, postlaminectomy syndrome of the lumbar spine Post-Operative Diagnosis: Lumbosacral radiculopathy, lumbosacral degenerative disc disease, lumbosacral spinal stenosis, postlaminectomy syndrome of the lumbar spine Surgery/Procedure Performed: Diagnostic/therapeutic caudal epidural steroid injection under fluoroscopic guidance. pediatrician: No Type of Anesthesia: Local MAC RN [...] MD; Dr. Hernandez Mosley MD Signed Normal [facility] Abdomen/Pelvis WITH Contrast on 08-12-2024 Abdomen/Pelvis WITH Contrast [facility] Imaging Services [address] [place] [address] 330041 Abdomen/Pelvis WITH Contrast MR#: [id number] Acct: [id number] Name: JUDY REAGAN Rep #: [id number] : 1960 F 64 From: Montana Dillard MD PCP: Dr. Hernandez Mosley MD Status: REG CLI Study: Abdomen/Pelvis WITH Contrast Date of Exam: Exam# [id number] Ordering Dr: tSanley Godwin DO [id number] STUDY: CT ABDOMEN AND PELVIS WITH CONTRAST [...] Signed: Montana Dillard MD at 18:27 EST , CC: Dr. Hernandez Mosley MD; Stanleyelias Godwin DO Manager Shipping: Signed Normal [facility] Urgent Care Visit Reporton 1 08-25-2023 Urgent Care Visit Report [facility] [address], [address] [place] [address] OFFICE VISIT Date of Service: 06/24/24 MR#: [id number] Acct: [id number] Name: JUDY REAGAN ANN Rep #: [id number] : 1960 Provider: IRA Stoddard Age/Sex: 64/F Location: [facility] Status: Signed Intake Vital Signs 11/24/23 14:04 [...] EAR PAIN Chief Complaint: EAR PAIN LT Addresser Required: No Accompanied by: Self Is patient [...] chest pressure/shortness of breath/dyspnea on exertion. No zepr-cne-hjfbyhd products taken to assist. Non-smoker. No other [...] drainage ( (more content not included)... Normal [facility] Miscellaneous Lab Procedureo n 05-28-2024 MISC LAB TEST Normal [facility] Comment on above: Order Comment: Comme nts: [id number] levels; FROZEN Result Comment: Scan kiarra image report available in EMR Performed By: #### L 500.4050, L501.6710, L101.9900, L801.1541, L100.0100 ####[facility] [address] [place], [address] Chest PA and Lateralon 05-27 Chest PA and Lateral [facility] Imaging Services [address] [place], [place] [address] Chest PA and Lateral MR#: [id number] Acct: [id number] Name: JUDY REAGAN ANN Rep #: [id number] : 1960 F 64 From: Rubio head MD PCP: Dr. Hernandez Mosley MD Status: [facility] Study: Chest PA and Lateral Date of Exam: 05/27/24 Exam# [id number] Ordering Dr: Hernandez Mosley MD [id number] STUDY: X-RAY CHEST REASON FOR EXAM: Female, [...] 11:59 EST Reading Location ID and State: [facility] / [place] , Service support , CC: Dr. Hernandez Mosley MD Manager Shipping: Signed [facility] M100.678on 05-27-2024 M100.678 Copy of report sent to Infection Control Printer MS#[id number] 05/27/24 1143 VSICK. SARS-CoV-2 (COVID 19) A Positive A INFLUENZA A Negative INFLUENZA B Negative RSV PCR Negative SARS-CoV-2 (COVID 19 PCR) [facility] Comment on above: Performed By: #### M 100.678 ####[facility] [address] [facility] [place], [place], [address] Breast Limited Unilateralon 05-24-2024 Breast Limited Unilateral [facility] Imaging Services [address] [place], [place] [address] Breast Limited Unilateral MR#: [id number] Acct: [id number] Name: JUDY REAGAN Rep #: [id number] : 1960 F 64 From: Getachew jimenez MD PCP: Dr. Hernandez Mosley MD Status: REG CLI Study: Breast Limited Unilateral Date of Exam: Exam# [id number] Ordering Dr: Hernandez Mosley MD [id number] STUDY: ULTRASOUND BREAST - LEFT REASON FOR [...] EDT , CC: Dr. Hernandez Mosley MD Manager Shipping: Signed [facility] DIAG MAMM W/CAD, UNILATon DIAG MAMM W/CAD, UNILAT [facility] Imaging Services [address] [place] [address] DIAG MAMM W/CAD, UNILAT MR#: [id number] Acct: [id number] Name: JUDY REAGAN ANN Rep #: [id number] : 1960 F 64 From: Getachew jimenez MD PCP: Dr. Hernandez Mosley MD Status: [facility] Study: DIAG MAMM W/CAD, UNILAT Date of Exam: 05/24/24 Exam# [id number] Ordering Dr: Hernandez Mosley MD [id number] MAMMOGRAPHY - UNILATERAL DIAGNOSTIC: LEFT BREAST REASON [...] EDT , CC: Dr. Hernandez Mosley MD Manager Shipping: Signed Normal [facility] SCRN MAMM (CAD)W/NIHARIKA BILATo n 05-22-2024 SCRN MAMM (CAD)W/NIHARIKA BILAT [facility] Imaging Services [address] [place], [place] [address] SCRN MAMM (CAD)W/NIHARIKA BILAT MR#: [id number] Acct: [id number] Name: JUDY REAGAN Rep #: [id number] : 1960 F 64 From: Getachew jimenez MD PCP: Dr. Hernandez Mosley MD Status: REG [facility] Study: SCRN MAMM (CAD)W/NIHARIKA BILAT Date of Exam: 04/25 Exam# [id number] Ordering Dr: Hernandez Mosley MD [id number] MAMMOGRAPHY - BILATERAL SCREENING REASON FOR EXAM: [...] delay biopsy of a clinically suspicious abnormality. [id number] Electronically Signed: Getachew Wayne MD at 11:26 EDT , CC: Dr. Hernandez Mosley MD Manager Shipping: Signed Normal [facility] CBC W/Diff, Automatedon 10- Absolute Lymph 2.13 X10 3/uL Normal 0.83-4.51 [facility] Comment on above: Performed By: #### L 500.4050, L501.6710, L101.9900, L801.1541, L100.0100 #### [facility] [address] [place], [address] Absolute Neut 6.2 X10 3/uL Normal 2.0-7.7 [facility] Comment on above: Performed By: #### L 500.4050, L501.6710, L101.9900, L801.1541, L100.0100 #### [facility] [address] [place], [address] Basophils/100 WBC (Bld) 0.7 % Normal 0-1 [facility] Comment on above: Performed By: #### L 500.4050, L501.6710, L101.9900, L801.1541, L100.0100 #### [facility] [address] [place], [address] Eosinophils/100 WBC (Bld) 0.6 % Normal 0-5 [facility] Comment on above: Performed By: #### L 500.4050, L501.6710, L101.9900, L801.1541, L100.0100 #### [facility] [address] [place], [address] Erythrocyte distribution width (RBC) [Ratio] 13.2 % Normal 11.6-14.6 [facility] Comment on above: Performed By: #### L 500.4050, L501.6710, L101.9900, L801.1541, L100.0100 #### [facility] [address] [place], [address] Hematocrit (Bld) [Volume fraction] 43.2 % Normal 37-47 [facility] [facility] Comment on above: Performed By: #### L 500.4050, L501.6710, L101.9900, L801.1541, L100.0100 #### [facility] [address] [place], [address] Hemoglobin (Bld) [Mass/Vol] 13.9 g/dL Normal 12.0-15.0 [facility] Comment on above: Performed By: #### L 500.4050, L501.6710, L101.9900, L801.1541, L100.0100 #### [facility] [address] [place], [address] IG% 0.400 Normal 0.0-0.9 [facility] Comment on above: Result Comment: IG% - Immature Granulocytes (promyelocytes, myelocytes and metamyelocytes) > 1% indicates that a LEFT SHIFT is Present. Performed By: #### L 500.4050, L501.6710, L101.9900, L801.1541, L100.0100 #### [facility] [address] [place], [address] Lymphocytes/100 WBC (Bld) 22.4 % Normal 19-41 [facility] Comment on above: Performed By: #### L 500.4050, L501.6710, L101.9900, L801.1541, L100.0100 #### [facility] [address] [place], [address] MCH (RBC) [Entitic mass] 29.9 pg Normal 27.0-32.0 [facility] Comment on above: Performed By: #### L 500.4050, L501.6710, L101.9900, L801.1541, L100.0100 #### [facility] [address] [place], [address] MCHC (RBC) [Mass/Vol] 32.2 g/dL Normal 32-36 [facility] Comment on above: Performed By: #### L 500.4050, L501.6710, L101.9900, L801.1541, L100.0100 #### [facility] [address] [place], [address] MCV (RBC) [Entitic vol] 92.9 fL Normal 81-99 [facility] Comment on above: Performed By: #### L 500.4050, L501.6710, L101.9900, L801.1541, L100.0100 #### [facility] [address] [place], [address] Monocytes/100 WBC (Bld) 11.1 % High 0-10 [facility] Comment on above: Performed By: #### L 500.4050, L501.6710, L101.9900, L801.1541, L100.0100 #### [facility] [address] [place], [address] Neutrophils/100 WBC (Bld) 64.8 % Normal 47-70 [facility] Comment on above: Performed By: #### L 500.4050, L501.6710, L101.9900, L801.1541, L100.0100 #### [facility] [address] [place], [address] Nucleated RBC (Bld) [#/Vol] 0 10*3/uL Normal 0-5 [facility] Comment on above: Performed By: #### L 500.4050, L501.6710, L101.9900, L801.1541, L100.0100 #### [facility] [address] [place], [address] Platelet mean volume (Bld) [Entitic vol] 9.6 fL Normal 6.2-12.0 [facility] Comment on above: Performed By: #### L 500.4050, L501.6710, L101.9900, L801.1541, L100.0100 #### [facility] [address] [place], [address] Platelets (Bld) [#/Vol] 395 10*3/uL Normal 150-450 [facility] Comment on above: Performed By: #### L 500.4050, L501.6710, L101.9900, L801.1541, L100.0100 #### [facility] [address] [place], [address] RBC (Bld) [#/Vol] 4.65 10*6/uL Normal 4.2-5.4 [facility] Comment on above: Performed By: #### L 500.4050, L501.6710, L101.9900, L801.1541, L100.0100 #### [facility] [address] [place], [address] RDW SD 44.6 fl High 35.1-43.9 [facility] Comment on above: Performed By: #### L 500.4050, L501.6710, L101.9900, L801.1541, L100.0100 #### [facility] [address] [place], [address] WBC (Bld) [#/Vol] 9.5 10*3/uL Normal 4.4-11.0 [facility] Comment on above: Performed By: #### L 500.4050, L501.6710, L101.9900, L801.1541, L100.0100 #### [facility] [address] [place], [address] CRPon 05-03-2024 C-REACTIVE PROT 3.04 mg/L High 0.0-3.0 [facility] Comment on above: Order Comment: [id number] 4 Result Comment: C-Re active Protein (CRP) provides useful information for the diagnosis, therapy and monitoring of inflammatory processes and associated diseases. For the evaluation of Relative Risk for Cardiovascular Disease, a High Sensitivity CRP (HSCRP) should be ordered. Performed By: #### L 500.4050, L501.6710, L101.9900, L801.1541, L100.0100 ####[facility] [address] [place], [address] Comprehensive Metabolic Prof ilon 05-03-2024 Albumin [Mass/Vol] 4.2 g/dL Normal 3.2-5.0 [facility] Comment on above: Order Comment: [id number] 4 Performed By: #### L 500.4050, L501.6710, L101.9900, L801.1541, L100.0100 #### [facility] [address] [place], [address] Albumin/Globulin [Mass ratio] 1.2 {ratio} Normal 0.9-2.4 [facility] Comment on above: Order Comment: [id number] 4 Performed By: #### L 500.4050, L501.6710, L101.9900, L801.1541, L100.0100 #### [facility] [address] [place], [address] ALK P 78 U/L Normal 45-117 [facility] Comment on above: Order Comment: [id number] 4 Performed By: #### L 500.4050, L501.6710, L101.9900, L801.1541, L100.0100 #### [facility] [address] [place], [address] ALT [Catalytic activity/Vol] 36 U/L Normal 13-56 [facility] Comment on above: Order Comment: [id number] 4 Performed By: #### L 500.4050, L501.6710, L101.9900, L801.1541, L100.0100 #### [facility] [address] [place], [address] AST [Catalytic activity/Vol] 18 U/L Normal 15-37 [facility] Comment on above: Order Comment: [id number] 4 Performed By: #### L 500.4050, L501.6710, L101.9900, L801.1541, L100.0100 #### [facility] [address] [place], [address] Bilirubin [Mass/Vol] 0.70 mg/dL Normal 0.20-1.00 [facility] Comment on above: Order Comment: 53402 4 Result Comment: For patients on eltrombopag therapy, use of Dimension [place] TBIL is not recommended. Performed By: #### L 500.4050, L501.6710, L101.9900, L801.1541, L100.0100 #### [facility] [address] [place], [address] BUN/CRE 21.5 RATIO High 10-20 [facility] Comment on above: Order Comment: [id number] 4 Performed By: #### L 500.4050, L501.6710, L101.9900, L801.1541, L100.0100 #### [facility] [address] [place], [address] CA,Total 9.3 mg/dL Normal 8.5-10.1 [facility] Comment on above: Order Comment: 60329 4 Performed By: #### L 500.4050, L501.6710, L101.9900, L801.1541, L100.0100 #### [facility] [address] [place], [address] Chloride [Moles/Vol] 102 mmol/L Normal 98-107 [facility] Comment on above: Order Comment: 72211 4 Performed By: #### L 500.4050, L501.6710, L101.9900, L801.1541, L100.0100 #### [facility] [address] [place], [address] CO2 [Moles/Vol] 24.0 mmol/L Normal 21.0-32.0 [facility] Comment on above: Order Comment: 26686 4 Performed By: #### L 500.4050, L501.6710, L101.9900, L801.1541, L100.0100 #### [facility] [address] [place], [address] Creatinine [Mass/Vol] 0.70 mg/dL Normal 0.55-1.02 [facility] Comment on above: Order Comment: [id number] 4 Result Comment: The validity of the calculated GFR GFRAA in patients over 70 years has not been determined. Clinical correlation is essential. Performed By: #### L 500.4050, L501.6710, L101.9900, L801.1541, L100.0100 #### [facility] [address] [place], [address] EST GFR - AA 109 mL/min Normal >60 [facility] Comment on above: Order Comment: [id number] 4 Result Comment: Afri can Chilean GFR Calc Performed By: #### L 500.4050, L501.6710, L101.9900, L801.1541, L100.0100 #### [facility] [address] [place], [address] GAP 9 Normal 5-15 [facility] Comment on above: Order Comment: 11179 4 Performed By: #### L 500.4050, L501.6710, L101.9900, L801.1541, L100.0100 #### [facility] [address] [place], [address] GFR/1.73 sq M.predicted among non-blacks MDRD (S/P/Bld) [Vol rate/Area] 90 mL/min/{1.73_m2} Normal >60 [facility] Comment on above: Order Comment: 33048 4 Result Comment: Non- GFR Calc Performed By: #### L 500.4050, L501.6710, L101.9900, L801.1541, L100.0100 #### [facility] [address] [place], [address] Globulin (S) [Mass/Vol] 3.4 g/dL Normal 2.2-4.2 [facility] Comment on above: Order Comment: [id number] 4 Performed By: #### L 500.4050, L501.6710, L101.9900, L801.1541, L100.0100 #### [facility] [address] [place], [address] Glucose [Mass/Vol] 99 mg/dL Normal 74-106 [facility] Comment on above: Order Comment: [id number] 4 Performed By: #### L 500.4050, L501.6710, L101.9900, L801.1541, L100.0100 #### [facility] [address] [place], [address] Potassium [Moles/Vol] 3.7 mmol/L Normal 3.5-5.1 [facility] Comment on above: Order Comment: [id number] 4 Performed By: #### L 500.4050, L501.6710, L101.9900, L801.1541, L100.0100 #### [facility] [address] [place], [address] Sodium [Moles/Vol] 135 mmol/L Low 136-145 [facility] Comment on above: Order Comment: 92924 4 Performed By: #### L 500.4050, L501.6710, L101.9900, L801.1541, L100.0100 #### [facility] [address] [place], [address] T PROT 7.6 g/dL Normal 6.4-8.2 [facility] Comment on above: Order Comment: [id number] 4 Performed By: #### L 500.4050, L501.6710, L101.9900, L801.1541, L100.0100 #### [facility] [address] [place], [address] Urea nitrogen [Mass/Vol] 15 mg/dL Normal 7-18 [facility] Comment on above: Order Comment: 83449 4 Performed By: #### L 500.4050, L501.6710, L101.9900, L801.1541, L100.0100 #### [facility] [address] [place], [address] Erythrocyte Sed Rateon 05-03 SED RATE 6 mm/hr Normal 0-30 [facility] Comment on above: Performed By: #### L 500.4050, L501.6710, L101.9900, L801.1541, L100.0100 #### [facility] [address] [place], [address] Gastroenterology Visit Repor ton 05-03-2024 Gastroenterology Visit Report [facility] [address] [place] [address] OFFICE VISIT Date of Service: 05/03/24 MR#: [id number] Acct: [id number] Name: JUDY REAGAN ANN Rep #: [id number] : 1960 Provider: Stanley Godwin DO Age/Sex: 64/F Location: [facility] [place] Status: Signed Intake Vital Signs 11/24/23 14:04 [...] #1 mL 03/11/24 05/03/24 Rx syringe (Stelara) [facility] Medical History History of Crohn's disease Chronic [...] to the office today for follow up. [facility] hospitalization 03.20.16-03.23.16 for abdominal pain. EGD 03.20.16???scope could not be advanced through duodenal bulb due to concentric narrowing less likely mass; no obvious ulcerations; duodenitis with duodenal ulcers; gastritis; healing prepyloric ulcer. H.Pylori neg Prior workup: ?CT abd/pel 09.21.23???colonic diverticulosis with diverticulitis *[facility] hospitalization .10.14-09.26.23 for management of abdominal pain with recent [...] flexure inflammation with friability and granularity OV 4.1.24 Pt states she has been feeling well [...] vacation last (more content not included)... Normal [facility] HIP, UNI W/ Pelvis 2-3 Views on 04-19-2024 HIP, UNI W/ Pelvis 2-3 Views [facility] Imaging Services [address] [place], [place] [address] HIP, UNI W/ Pelvis 2-3 Views MR#: [id number] Acct: [id number] Name: JUDY REAGAN Rep #: [id number] : 1960 F 64 From: Carlos Vital MD PCP: Dr. Hernandez Mosley MD Status: [facility] Study: HIP, UNI W/ Pelvis 2-3 Views Date of Exam: Exam# [id number] Ordering Dr: Montana Quiñonez MD [id number] EXAM: XR RIGHT HIP WITH PELVIS WHEN [...] Montana Quiñonez MD; Dr. Hernandez Mosley MD Manager Shipping: Signed Normal [facility] Absolute lymphocyte countOrd ered By: Sherif Benson on 09-26-2023 Lymphocytes Auto (Unsp spec) [#/Vol] 1.54 10*3/uL 0.83-4.51 [facility] Automated lymphocyte count a s percentage of total leukocytesOrdered By: Sherif Benson on 09-26-2023 Lymphocytes/100 WBC Auto (Unsp spec) 37.1 % 19-41 [facility] Basophil percentageOrdered B y: Sherif Benson on 09-26-2023 Basophils/100 WBC (Bld) 0.7 % 0-1 [facility] Chloride [Moles/Vol] 110 mmol/L 98-107 [facility] Eosinophils/100 WBC (Bld) 4.3 % 0-5 [facility] Glucose [Mass/Vol] 104 mg/dL 74-106 [facility] Comment on above: Fasting Glucose resu lt from 100 to 125 mg/dL suggests IMPAIRED HOMEOSTASIS per A.D.A. criteria. Hemoglobin (Bld) [Mass/Vol] 13.1 g/dL 12.0-15.0 [facility] Monocytes/100 WBC (Bld) 15.7 % 0-10 [facility] Neutrophils (Bld) [#/Vol] 1.7 10*3/uL 2.0-7.7 [facility] Neutrophils/100 WBC (Bld) 41.7 % 47-70 [facility] Potassium [Moles/Vol] 3.3 mmol/L 3.5-5.1 [facility] Sodium [Moles/Vol] 141 mmol/L 136-145 [facility] WBC (Bld) [#/Vol] 4.2 10*3/uL 4.4-11.0 [facility] Determination of erythrocyte mean corpuscular volume (MCV)Ordered By: Sherif Benson on 09-26-2023 MCV (RBC) [Entitic vol] 91.6 fL 81-99 [facility] Erythrocyte distribution wid th ratioOrdered By: Sherif Benson on 09-26-2023 Erythrocyte distribution width (RBC) [Ratio] 12.8 % 11.6-14.6 [facility] Erythrocyte distribution wid th standard deviationOrdered By: Sherif Benson on 09-26-2023 Erythrocyte distribution width (RBC) [Entitic vol] 42.8 fL 35.1-43.9 [facility] Hematocrit Auto (Bld) [Volum e fraction]Ordered By: Sherif Benson on 09-26-2023 Hematocrit (Bld) [Volume fraction] 40.6 % 37-47 [facility] Immature granulocytes/100 WB C Auto (Bld)Ordered By: Sherif Benson on 09-26-2023 Immature granulocytes/100 WBC (Bld) 0.500 % 0.0-0.9 [facility] Comment on above: IG% - Immature Granu locytes (promyelocytes, myelocytes and metamyelocytes) > 1% indicates that a LEFT SHIFT is Present. Laboratory - Chemistry and C hemistry - challengeOrdered By: Sherif Benson on 09-26-2023 CO2 [Moles/Vol] 27.0 mmol/L 21.0-32.0 [facility] Urea nitrogen/Creatinine [Mass ratio] 14.4 mg/mg 10-20 [facility] - Hematology and Cell countsOrdered By: Sherif Benson on 09-26-2023 MCH (RBC) [Entitic mass] 29.6 pg 27.0-32.0 [facility] MCHC (RBC) [Mass/Vol] 32.3 g/dL 32-36 [facility] Nucleated RBC/100 WBC (Bld) [Ratio] 0 % 0-5 [facility] Platelet mean volume (Bld) [Entitic vol] 9.6 fL 6.2-12.0 [facility] Platelets (Bld) [#/Vol] 296 10*3/uL 150-450 [facility] No Panel InformationOrdered By: Sherif Benson on 09-26-2023 Estimated Creatinine Clearance Calc 83.27 ml/min [facility] Estimated GFR (MDRD) Amer 110 mL/min >60 [facility] Comment on above: GFR Calc Estimated GFR (MDRD) Non-Af Amer 91 mL/min >60 [facility] Comment on above: Non- GFR Calc RBC Auto (Bld) [#/Vol]Ordere d By: Sherif Benson on 09-26-2023 RBC (Bld) [#/Vol] 4.43 10*6/uL 4.2-5.4 [facility] Serum or plasma calcium elis urement (mass/volume)Ordered By: Sherif Benson on 09-26-2023 Calcium [Mass/Vol] 8.9 mg/dL 8.5-10.1 [facility] Serum or plasma creatinine m easurement (mass/volume)Ordered By: Sherif Benson on 09-26-2023 Creatinine [Mass/Vol] 0.70 mg/dL 0.55-1.02 [facility] Comment on above: The validity of the calculated GFR & GFRAA in patients over 70 years has not been determined. Clinical correlation is essential. Serum or plasma urea nitroge n measurement (mass/volume)Ordered By: Sherif Benson on 09-26-2023 Urea nitrogen [Mass/Vol] 10 mg/dL 7-18 [facility] Thin prep Papanicolaou smear with manual screeningOrdered By: Sherif Benson on 09-26-2023 Thin prep Papanicolaou smear with manual screening 4 5-15 [facility] No Panel InformationOrdered By: Stanley Godwin on 09-25-2023 Parathyroid Hormone (Intact) 79.8 pg/mL 18.4-80.1 [facility] Absolute lymphocyte countOrd ered By: Michael Lyman on 09-24-2023 Lymphocytes Auto (Unsp spec) [#/Vol] 1.89 10*3/uL 0.83-4.51 [facility] Albumin Elph [Mass/Vol]Order ed By: Stanley Godwin on 09-24-2023 Albumin [Mass/Vol] 3.4 g/dL 2.9-4.4 [facility] Atypical P-ANCA titerOrdered By: Stanley Godwin on 09-24-2023 Neutrophil cytoplasmic Ab.perinuclear.atypical IF (S) [Titer] Negative Negative [facility] Automated lymphocyte count a s percentage of total leukocytesOrdered By: Michael Lyman on 09-24-2023 Lymphocytes/100 WBC Auto (Unsp spec) 27.2 % 19-41 [facility] Basophil percentageOrdered B y: Stanley Godwin on 09-24-2023 LDH [Catalytic activity/Vol] 166 U/L 84-246 [facility] Basophil percentageOrdered B y: Jorge L Davalos on 09-24-2023 Basophil percentage 3.3 mg/dL 2.5-4.9 [facility] Bilirubin [Mass/Vol] 0.30 mg/dL 0.20-1.00 [facility] Comment on above: For patients on eltr ombopag therapy, use of Dimension [place] TBIL is not recommended. Protein [Mass/Vol] 6.5 g/dL 6.4-8.2 [facility] Basophil percentageOrdered B y: Michael Lyman on 09-24-2023 Basophils/100 WBC (Bld) 1.0 % 0-1 [facility] Chloride [Moles/Vol] 107 mmol/L 98-107 [facility] Eosinophils/100 WBC (Bld) 1.6 % 0-5 [facility] Glucose [Mass/Vol] 101 mg/dL 74-106 [facility] Comment on above: Fasting Glucose resu lt from 100 to 125 mg/dL suggests IMPAIRED HOMEOSTASIS per A.D.A. criteria. Hemoglobin (Bld) [Mass/Vol] 13.6 g/dL 12.0-15.0 [facility] Lactate [Moles/Vol] 0.7 mmol/L 0.4-2.0 [facility] Monocytes/100 WBC (Bld) 12.8 % 0-10 [facility] Neutrophils (Bld) [#/Vol] 4.0 10*3/uL 2.0-7.7 [facility] Neutrophils/100 WBC (Bld) 57.1 % 47-70 [facility] Potassium [Moles/Vol] 3.4 mmol/L 3.5-5.1 [facility] Sodium [Moles/Vol] 139 mmol/L 136-145 [facility] WBC (Bld) [#/Vol] 7.0 10*3/uL 4.4-11.0 [facility] Chitobioside IgA antibody as sayOrdered By: Stanley Godwin on 09-24-2023 Chitobioside IgA IA Qn 10 units 0-90 [facility] Comment on above: Negative: <80 Equivo marquez: 80-90 Positive: >90 Chocolate IgE serumOrdered B y: Stanley Godwin on 09-24-2023 Chocolate IgE Qn (S) <0.10 kU/L Class 0 [facility] Determination of erythrocyte mean corpuscular volume (MCV)Ordered By: Michael Lyman on 09-24-2023 MCV (RBC) [Entitic vol] 91.8 fL 81-99 [facility] Erythrocyte distribution wid th ratioOrdered By: Michael Lyman on 09-24-2023 Erythrocyte distribution width (RBC) [Ratio] 13.0 % 11.6-14.6 [facility] Erythrocyte distribution wid th standard deviationOrdered By: Michael Lyman on 09-24-2023 Erythrocyte distribution width (RBC) [Entitic vol] 43.7 fL 35.1-43.9 [facility] Erythrocyte sedimentation ra teOrdered By: Stanley Godwin on 09-24-2023 ESR (Bld) [Velocity] 9 mm/h 0-30 [facility] Hematocrit Auto (Bld) [Volum e fraction]Ordered By: Michael Lyman on 09-24-2023 Hematocrit (Bld) [Volume fraction] 42.8 % 37-47 [facility] Immature granulocytes/100 WB C Auto (Bld)Ordered By: Michael Lyman on 09-24-2023 Immature granulocytes/100 WBC (Bld) 0.300 % 0.0-0.9 [facility] Comment on above: IG% - Immature Granu locytes (promyelocytes, myelocytes and metamyelocytes) > 1% indicates that a LEFT SHIFT is Present. Interpretation of serum or p lasma protein pattern by immunofixation (narrative resultOrdered By: Stanley Godwin on 09-24-2023 Protein Fractions Immunofixation Angel [Interp] Not Observed g/dL Not Observed [facility] Laboratory - Chemistry and C hemistry - challengeOrdered By: Jorge L Davalos on 09-24-2023 Albumin/Globulin [Mass ratio] 1.0 {ratio} 0.9-2.4 [facility] ALP [Catalytic activity/Vol] 86 U/L 45-117 [facility] ALT [Catalytic activity/Vol] 27 U/L 13-56 [facility] Globulin (S) [Mass/Vol] 3.2 g/dL 2.2-4.2 [facility] Magnesium [Mass/Vol] 2.3 mg/dL 1.6-2.6 [facility] Laboratory - Chemistry and C hemistry - challengeOrdered By: Michael Lyman on 09-24-2023 CO2 [Moles/Vol] 29.0 mmol/L 21.0-32.0 [facility] Magnesium [Mass/Vol] 2.4 mg/dL 1.6-2.6 [facility] Urea nitrogen/Creatinine [Mass ratio] 16.2 mg/mg 10-20 [facility] - Hematology and Cell countsOrdered By: Michael Lyman on 09-24-2023 MCH (RBC) [Entitic mass] 29.2 pg 27.0-32.0 [facility] MCHC (RBC) [Mass/Vol] 31.8 g/dL 32-36 [facility] Nucleated RBC/100 WBC (Bld) [Ratio] 0 % 0-5 [facility] Platelet mean volume (Bld) [Entitic vol] 10.0 fL 6.2-12.0 [facility] Platelets (Bld) [#/Vol] 296 10*3/uL 150-450 [facility] Laboratory - Miscellaneous t estsOrdered By: Stanley Godwin on 09-24-2023 Laboratory comment Angel (Report) Comment . [facility] Comment on above: Suggestive of Crohn' s Disease. Pattern is not conclusivefor disease behavior risk stratification. Service comment (Unsp spec) [Interp] Comment . [facility] Comment on above: Levels of Specific I [...] Laminaribioside IgG IA Qn 10 units 0-60 [facility] Comment on above: Negative:<55 Equivoc al: 55-60 Positive: >60.Previous reported result: 10 unitsEdited by: HUSSAIN on 10/18/23:1442 AMENDED REPORT 10/18/23 1442 ALCA previously reported as: 10 units Negative:<55 Equivocal: 55-60 Positive: >60 No Panel InformationOrdered By: Stanley Godwin on 09-24-2023 Addendum Document Comment . [facility] Comment on above: Protein electrophore sis scan will follow via computer,mail, or supervisor blueprinting and photocopy delivery. Anti-Gliadin IgA Antibody 3 units 0-19 [facility] Comment on above: Negative 0 - 19 Weak Positive 20 - 30 Moderate to Strong Positive >30 Anti-Gliadin IgG Antibody 2 units 0-19 [facility] Comment on above: Negative 0 - 19 Weak Positive 20 - 30 Moderate to Strong Positive >30 C-Reactive Protein Extended Range 12.90 mg/L 0.0-3.0 [facility] Comment on above: C-Reactive Protein ( CRP) provides useful information for thediagnosis, therapy and monitoring of inflammatory processesand associated diseases. For the evaluation of Relative Riskfor Cardiovascular Disease, a High Sensitivity CRP (HSCRP)should be ordered. Centromere B Antibody <0.2 AI 0.0-0.9 [facility] Endomysial IgA Antibody Negative Negative [facility] Immunoglobulin G4 8 mg/dL 2-96 [facility] Immunoglobulin M 51 mg/dL 26-217 [facility] SALAS-1 Antibody <0.2 AI 0.0-0.9 [facility] [facility] All[facility] IgE Antibody <0.10 kU/L Class 0 [facility] BIOFUELS MANAGER Antibody <0.2 AI 0.0-0.9 [facility] Saccharomyces cerevisiae (Marvin)IgG 54 units 0-50 [facility] Comment on above: Negative: <45 Equivo marquez: 45-50 Positive: >50 Shrimp Allergen <0.10 kU/L Class 0 [facility] SM Antibody <0.2 AI 0.0-0.9 [facility] SS-A/Ro IgG Antibody < 0.2 AI 0.0-0.9 [facility] SS-B/La IgG Antibody < 0.2 AI 0.0-0.9 [facility] Tissue Transglutaminase IgG Ab 3 U/mL 0-5 [facility] Comment on above: Negative 0 - 5 Weak Positive 6 - 9 Positive >9 No Panel InformationOrdered By: Michael Lyman on 09-24-2023 Estimated Creatinine Clearance Calc 68.94 ml/min [facility] Estimated GFR (MDRD) Amer 103 mL/min >60 [facility] Comment on above: GFR Calc Estimated GFR (MDRD) Non-Af Amer 85 mL/min >60 [facility] Comment on above: Non- GFR Calc RBC Auto (Bld) [#/Vol]Ordere d By: Michael Lyman on 09-24-2023 RBC (Bld) [#/Vol] 4.66 10*6/uL 4.2-5.4 [facility] Serum DNA double strand anti body assay (units/volume)Ordered By: Stanley Godwin on 09-24-2023 DNA double strand Ab Qn (S) 1 [IU]/mL 0-9 [facility] Comment on above: Negative <5 Equivoca l 5 - 9 Positive >9 Serum IgG subclass 1 measure ment (mass/volume)Ordered By: Stanley Godwin on 09-24-2023 IgG subclass 1 (S) [Mass/Vol] 572 mg/dL 248-810 [facility] Serum IgG subclass 2 measure ment (mass/volume)Ordered By: Stanley Godwin on 09-24-2023 IgG subclass 2 (S) [Mass/Vol] 184 mg/dL 130-555 [facility] Serum IgG subclass 3 measure ment (mass/volume)Ordered By: Stanley Godwin on 09-24-2023 IgG subclass 3 (S) [Mass/Vol] 36 mg/dL 15-102 [facility] Serum Scl-70 antibody assay (units/volume)Ordered By: Stanley Godwin on 09-24-2023 SCL-70 extractable nuclear Ab Qn (S) <0.2 AI 0.0-0.9 [facility] Serum [id number] measu rement by electrophoresisOrdered By: Stanley Godwin on 09-24-2023 Alpha 1 globulin Elph [Mass/Vol] 0.2 g/dL 0.0-0.4 [facility] Alpha 1 globulin Elph [Mass/Vol] 0.8 g/dL 0.4-1.0 [facility] Serum beef IgE antibody assa y (units/volume)Ordered By: Stanley Godwin on 09-24-2023 Beef IgE Qn (S) <0.10 kU/L Class 0 [facility] Serum classic neutrophil cyt oplasmic antibody assay (units/volume)Ordered By: Stanley Godwin on 09-24-2023 Neutrophil cytoplasmic Ab.classic Qn (S) <1:20 titer Neg:<1:20 [facility] Serum codfish IgE antibody a ssay (units/volume)Ordered By: Stanley Godwin on 09-24-2023 Codfish IgE Qn (S) <0.10 kU/L Class 0 [facility] Serum corn IgE antibody assa y (units/volume)Ordered By: Stanley Godwin on 09-24-2023 Backus IgE Qn (S) <0.10 kU/L Class 0 [facility] Serum cow milk IgE antibody assay (units/volume)Ordered By: Stanley Godwin on 09-24-2023 Cow milk IgE Qn (S) <0.10 kU/L Class 0 [facility] Serum globulin measurement ( mass/volume)Ordered By: Stanley Godwin on 09-24-2023 Globulin (S) [Mass/Vol] 2.8 g/dL 2.2-3.9 [facility] Serum or plasma IgA measurem ent (mass/volume)Ordered By: Stanley Godwin on 09-24-2023 IgA [Mass/Vol] 101 mg/dL 87-352 [facility] Serum or plasma IgG measurem ent (mass/volume)Ordered By: Stanley Godwin on 09-24-2023 IgG [Mass/Vol] 882 mg/dL [phone] [facility] IgG [Mass/Vol] Not Reportable [facility] Serum or plasma beta globuli n measurement by electrophoresis (mass/volume)Ordered By: Stanley Godwin on 09-24-2023 Beta globulin Elph [Mass/Vol] 0.9 g/dL 0.7-1.3 [facility] Serum or plasma calcium elis urement (mass/volume)Ordered By: Michael Lyman on 09-24-2023 Calcium [Mass/Vol] 9.1 mg/dL 8.5-10.1 [facility] Serum or plasma creatinine m easurement (mass/volume)Ordered By: Michael Lyman on 09-24-2023 Creatinine [Mass/Vol] 0.74 mg/dL 0.55-1.02 [facility] Comment on above: The validity of the calculated GFR & GFRAA in patients over 70 years has not been determined. Clinical correlation is essential. Serum or plasma gamma globul in measurement by electrophoresis (mass/volume)Ordered By: Stanley Godwin on 09-24-2023 Gamma globulin Elph [Mass/Vol] 0.9 g/dL 0.4-1.8 [facility] Serum or plasma gastrin elis urement (mass/volume)Ordered By: Stanley Godwin on 09-24-2023 Gastrin [Mass/Vol] 20 pg/mL 0-115 [facility] Comment on above: Siemens Immulite 200 0 Immunochemiluminometric assay (ICMA)Values obtained with different assay methods or kits cannotbe used interchangeably. Results cannot be interpreted asabsolute evidence of the presence or absence of malignantdisease.Performed at: [address] [id number] Director: Reji Caceres MD, Phone: [phone] Serum or plasma immunoelectr ophoresis interpretation (nominal result)Ordered By: Stanley Godwin on 09-24-2023 Interpretation IEP [Interp] Comment . [facility] Comment on above: No monoclonality det ected. Serum or plasma mannobioside IgG antibody assay by immunoassay (units/volume)Ordered By: Stanley Godwin on 09-24-2023 Mannobioside IgG IA Qn 15 units 0-100 [facility] Comment on above: Negative: <90 Equivo marquez: 90-100 Positive: >100 This test was developed and its performance characteristics determined by [employer]. It has not been cleared or approved by the Food and Drug Administration. The FDA has determined that such clearance or approval is not necessary. Serum or plasma thyroid stim ulating hormone (TSH) measurement (units/volume)Ordered By: Jorge L Davalos on 09-24-2023 TSH Qn 4.56 uIU/mL 0.358-3.74 [facility] Serum or plasma urea nitroge n measurement (mass/volume)Ordered By: Michael Lyman on 09-24-2023 Urea nitrogen [Mass/Vol] 12 mg/dL 7-18 [facility] Serum peanut IgE antibody as say (units/volume)Ordered By: Stanley Godwin on 09-24-2023 Peanut IgE Qn (S) <0.10 kU/L Class 0 [facility] Serum perinuclear neutrophil cytoplasmic antibody titer by immunofluorescenceOrdered By: Stanley Godwin on 09-24-2023 Neutrophil cytoplasmic Ab.perinuclear IF (S) [Titer] <1:20 titer Neg:<1:20 [facility] Comment on above: The presence of posi tive fluorescence exhibiting P-ANCA orC-ANCA patterns alone is not specific for the diagnosis ofWegener's Granulomatosis (WG) or microscopic polyangiitis.Decisions about treatment should not be based solely onANCA IFA results. The [employer] ANCA [employer] Consensusrecommends follow up testing of positive sera with both MD-3 and MPO-ANCA enzyme immunoassays. As many as 5% serumsamples are positive only by EIA. Ref. AM J Clin [id number];111:507-513. Serum pork IgE antibody assa y (units/volume)Ordered By: Stanley Godwin on 09-24-2023 Pork IgE Qn (S) <0.10 kU/L Class 0 [facility] Serum salmon IgE antibody as say (units/volume)Ordered By: Stanley Godwin on 09-24-2023 [place] IgE Qn (S) <0.10 kU/L Class 0 [facility] Serum soybean IgE antibody a ssay (units/volume)Ordered By: Stanley Godwin on 09-24-2023 Soybean IgE Qn (S) <0.10 kU/L Class 0 [facility] Serum tissue transglutaminas e IgA antibody assay (units/volume)Ordered By: Stanley Godwin on 09-24-2023 tTG IgA Qn (S) <2 U/mL 0-3 [facility] Comment on above: Negative 0 - 3 Weak Positive 4 - 10 Positive >10 Tissue Transglutaminase (tTG) has been identified as the endomysial antigen. Studies have demonstr- ated that endomysial IgA antibodies have over 99% specificity for gluten sensitive enteropathy. Serum tuna IgE antibody assa y (units/volume)Ordered By: Stanley Godwin on 09-24-2023 Tuna IgE Qn (S) <0.10 kU/L Class 0 [facility] Serum wheat IgE antibody ass ay (units/volume)Ordered By: Stanley Godwin on 09-24-2023 Wheat IgE Qn (S) <0.10 kU/L Class 0 [facility] Serum whole egg IgE antibody assay (units/volume)Ordered By: Stanley Godwin on 09-24-2023 Whole Egg IgE Qn (S) <0.10 kU/L Class 0 [facility] Comment on above: Performed at: [address] [id number] Director: Reji Caceres MD, Phone: [phone] Thin prep Papanicolaou smear with manual screeningOrdered By: Stanley Godwin on 09-24-2023 Thin prep Papanicolaou smear with manual screening 88.0 ng/mL 0.0-101.8 [facility] Comment on above: Chromogranin A perfo rmed by [employer] KRYPTORmethodologyValues obtained with different assay methods or kits cannotbe used interchangeably.Performed at: - [address] [id number] Director: Bhaskar Mane PhD, Phone: [phone] at: - [facility] [address] [id number] Director: Reji Caceres MD, Phone: [phone] Thin prep Papanicolaou smear with manual screening 1.3 0.7-1.7 [facility] Thin prep Papanicolaou smear with manual screeningOrdered By: Jorge L Davalos on 09-24-2023 Thin prep Papanicolaou smear with manual screening 3.3 g/dL 3.2-5.0 [facility] Thin prep Papanicolaou smear with manual screening 15 U/L 15-37 [facility] Thin prep Papanicolaou smear with manual screeningOrdered By: Michael Lyman on 09-24-2023 Thin prep Papanicolaou smear with manual screening 3 5-15 [facility] Total protein bloodOrdered B y: Stanley Citlali on 09-24-2023 Protein [Mass/Vol] 6.2 g/dL 6.0-8.5 [facility] Absolute lymphocyte countOrd ered By: Hernandez Mosley on 09-21-2023 Lymphocytes Auto (Unsp spec) [#/Vol] 1.44 10*3/uL 0.83-4.51 [facility] Automated lymphocyte count a s percentage of total leukocytesOrdered By: Hernandez Mosley on 09-21-2023 Lymphocytes/100 WBC Auto (Unsp spec) 13.4 % 19-41 [facility] Basophil percentageOrdered B y: Hernanedz Mosley on 09-21-2023 Basophils/100 WBC (Bld) 0.5 % 0-1 [facility] Bilirubin [Mass/Vol] 0.80 mg/dL 0.20-1.00 [facility] Comment on above: For patients on eltr ombopag therapy, use of Dimension [place] TBIL is not recommended. Chloride [Moles/Vol] 101 mmol/L 98-107 [facility] Eosinophils/100 WBC (Bld) 0.5 % 0-5 [facility] Glucose [Mass/Vol] 99 mg/dL 74-106 [facility] Hemoglobin (Bld) [Mass/Vol] 13.5 g/dL 12.0-15.0 [facility] Monocytes/100 WBC (Bld) 8.0 % 0-10 [facility] Neutrophils (Bld) [#/Vol] 8.3 10*3/uL 2.0-7.7 [facility] Neutrophils/100 WBC (Bld) 77.3 % 47-70 [facility] Potassium [Moles/Vol] 3.6 mmol/L 3.5-5.1 [facility] Protein [Mass/Vol] 7.5 g/dL 6.4-8.2 [facility] Sodium [Moles/Vol] 135 mmol/L 136-145 [facility] WBC (Bld) [#/Vol] 10.7 10*3/uL 4.4-11.0 [facility] Clostridioides difficile nuc leic acid assay by PCROrdered By: Hernandez Mosley on 09-21-2023 C. difficile DNA BROCK+probe Ql (Unsp spec) [facility] Determination of erythrocyte mean corpuscular volume (MCV)Ordered By: Hernandez Mosley on 09-21-2023 MCV (RBC) [Entitic vol] 90.5 fL 81-99 [facility] Erythrocyte distribution wid th ratioOrdered By: Hernandez Mosley on 09-21-2023 Erythrocyte distribution width (RBC) [Ratio] 12.8 % 11.6-14.6 [facility] Erythrocyte distribution wid th standard deviationOrdered By: Hernandez Mosley on 09-21-2023 Erythrocyte distribution width (RBC) [Entitic vol] 42.5 fL 35.1-43.9 [facility] Hematocrit Auto (Bld) [Volum e fraction]Ordered By: Hernandez Mosley 09-21-2023 Hematocrit (Bld) [Volume fraction] 42.0 % 37-47 [facility] Immature granulocytes/100 WB C Auto (Bld)Ordered By: Hernandez Mosley 09-21-2023 Immature granulocytes/100 WBC (Bld) 0.300 % 0.0-0.9 [facility] Comment on above: IG% - Immature Granu locytes (promyelocytes, myelocytes and metamyelocytes) > 1% indicates that a LEFT SHIFT is Present. Laboratory - Chemistry and C hemistry - challengeOrdered By: Hernandez Mosley on 09-21-2023 Albumin/Globulin [Mass ratio] 1.2 {ratio} 0.9-2.4 [facility] ALP [Catalytic activity/Vol] 110 U/L 45-117 [facility] ALT [Catalytic activity/Vol] 36 U/L 13-56 [facility] CO2 [Moles/Vol] 27.0 mmol/L 21.0-32.0 [facility] Globulin (S) [Mass/Vol] 3.4 g/dL 2.2-4.2 [facility] Urea nitrogen/Creatinine [Mass ratio] 15.0 mg/mg 10-20 [facility] Laboratory - Hematology and Cell countsOrdered By: Hernandez Mosley on 09-21-2023 MCH (RBC) [Entitic mass] 29.1 pg 27.0-32.0 [facility] MCHC (RBC) [Mass/Vol] 32.1 g/dL 32-36 [facility] Nucleated RBC/100 WBC (Bld) [Ratio] 0 % 0-5 [facility] Platelet mean volume (Bld) [Entitic vol] 9.9 fL 6.2-12.0 [facility] Platelets (Bld) [#/Vol] 306 10*3/uL 150-450 [facility] Lower GI hemoglobin IA Ql (S tl)Ordered By: Hernandez Mosley on 09-21-2023 Stool Occult Blood (PIEDAD) Positive [facility] No Panel InformationOrdered By: Hernandez Mosley on 09-21-2023 Miscellaneous Test See comment [facility] Comment on above: TEST RESULTS LIMITSS tool CultureSalmonella/Shigella Screen Final reportResult 1No Salmonella or Shigella recovered.Campylobacter Culture Final reportResult 1No Campylobacter species isolated.E coli Shiga Toxin EIA Negative Negative TESTING PERFORMED AT [facility]. ORIGINAL REPORT ON FILE IN LAB CONTAINS ADDITIONAL TEST SITE INFORMATION. Estimated GFR (MDRD) Amer 104 mL/min >60 [facility] Comment on above: GFR Calc Estimated GFR (MDRD) Non-Af Amer 86 mL/min >60 [facility] Comment on above: Non- GFR Calc Ova and parasitesOrdered By: Hernandez Mosley on 09-21-2023 Ova and parasites identified LM Nom (Unsp spec) [facility] RBC Auto (Bld) [#/Vol]Ordere d By: Hernandez Mosley on 09-21-2023 RBC (Bld) [#/Vol] 4.64 10*6/uL 4.2-5.4 [facility] Serum or plasma calcium elis urement (mass/volume)Ordered By: Hernandez Mosley on 09-21-2023 Calcium [Mass/Vol] 9.1 mg/dL 8.5-10.1 [facility] Serum or plasma creatinine m easurement (mass/volume)Ordered By: Hernandez Mosley on 09-21-2023 Creatinine [Mass/Vol] 0.73 mg/dL 0.55-1.02 [facility] Comment on above: The validity of the calculated GFR & GFRAA in patients over 70 years has not been determined. Clinical correlation is essential. Serum or plasma urea nitroge n measurement (mass/volume)Ordered By: Hernandez Mosley on 09-21-2023 Urea nitrogen [Mass/Vol] 11 mg/dL 7-18 [facility] Thin prep Papanicolaou smear with manual screeningOrdered By: Hernandez Mosley on 09-21-2023 Thin prep Papanicolaou smear with manual screening 4.1 g/dL 3.2-5.0 [facility] Thin prep Papanicolaou smear with manual screening 19 U/L 15-37 [facility] Thin prep Papanicolaou smear with manual screening 7 5-15 [facility] Absolute lymphocyte countOrd ered By: Hernandez Mosley on 09-18-2023 Lymphocytes Auto (Unsp spec) [#/Vol] 1.91 10*3/uL 0.83-4.51 [facility] Automated lymphocyte count a s percentage of total leukocytesOrdered By: Hernandez Mosley on 09-18-2023 Lymphocytes/100 WBC Auto (Unsp spec) 31.3 % 19-41 [facility] Basophil percentageOrdered B y: Hernandez Mosley on 09-18-2023 Basophils/100 WBC (Bld) 0.8 % 0-1 [facility] Bilirubin [Mass/Vol] 0.30 mg/dL 0.20-1.00 [facility] Comment on above: For patients on eltr ombopag therapy, use of Dimension [place] TBIL is not recommended. Chloride [Moles/Vol] 105 mmol/L 98-107 [facility] Eosinophils/100 WBC (Bld) 1.8 % 0-5 [facility] Glucose [Mass/Vol] 103 mg/dL 74-106 [facility] Comment on above: Fasting Glucose resu lt from 100 to 125 mg/dL suggests IMPAIRED HOMEOSTASIS per A.D.A. criteria. Hemoglobin (Bld) [Mass/Vol] 13.9 g/dL 12.0-15.0 [facility] Monocytes/100 WBC (Bld) 10.3 % 0-10 [facility] Neutrophils (Bld) [#/Vol] 3.4 10*3/uL 2.0-7.7 [facility] Neutrophils/100 WBC (Bld) 55.3 % 47-70 [facility] Potassium [Moles/Vol] 3.7 mmol/L 3.5-5.1 [facility] Protein [Mass/Vol] 7.9 g/dL 6.4-8.2 [facility] Sodium [Moles/Vol] 137 mmol/L 136-145 [facility] WBC (Bld) [#/Vol] 6.1 10*3/uL 4.4-11.0 [facility] Determination of erythrocyte mean corpuscular volume (MCV)Ordered By: Hernandez Mosley on 09-18-2023 MCV (RBC) [Entitic vol] 91.6 fL 81-99 [facility] Erythrocyte distribution wid th ratioOrdered By: Hernandez Mosley on 09-18-2023 Erythrocyte distribution width (RBC) [Ratio] 12.9 % 11.6-14.6 [facility] Erythrocyte distribution wid th standard deviationOrdered By: Hernandez Mosley on 09-18-2023 Erythrocyte distribution width (RBC) [Entitic vol] 43.3 fL 35.1-43.9 [facility] Hematocrit Auto (Bld) [Volum e fraction]Ordered By: Hernandez Mosley on 09-18-2023 Hematocrit (Bld) [Volume fraction] 43.9 % 37-47 [facility] Immature granulocytes/100 WB C Auto (Bld)Ordered By: Hernandez Mosley on 09-18-2023 Immature granulocytes/100 WBC (Bld) 0.500 % 0.0-0.9 [facility] Comment on above: IG% - Immature Granu locytes (promyelocytes, myelocytes and metamyelocytes) > 1% indicates that a LEFT SHIFT is Present. Laboratory - Chemistry and C hemistry - challengeOrdered By: Hernandez Mosley on 09-18-2023 Albumin/Globulin [Mass ratio] 1.0 {ratio} 0.9-2.4 [facility] ALP [Catalytic activity/Vol] 115 U/L 45-117 [facility] ALT [Catalytic activity/Vol] 33 U/L 13-56 [facility] CO2 [Moles/Vol] 25.0 mmol/L 21.0-32.0 [facility] Globulin (S) [Mass/Vol] 3.9 g/dL 2.2-4.2 [facility] Urea nitrogen/Creatinine [Mass ratio] 19.8 mg/mg 10-20 [facility] Laboratory - Hematology and Cell countsOrdered By: Hernandez Mosley on 09-18-2023 MCH (RBC) [Entitic mass] 29.0 pg 27.0-32.0 [facility] MCHC (RBC) [Mass/Vol] 31.7 g/dL 32-36 [facility] Nucleated RBC/100 WBC (Bld) [Ratio] 0 % 0-5 [facility] Platelet mean volume (Bld) [Entitic vol] 10.3 fL 6.2-12.0 [facility] Platelets (Bld) [#/Vol] 324 10*3/uL 150-450 [facility] No Panel InformationOrdered By: Hernandez Mosley on 09-18-2023 Estimated GFR (MDRD) Amer 100 mL/min >60 [facility] Comment on above: GFR Calc Estimated GFR (MDRD) Non-Af Amer 83 mL/min >60 [facility] Comment on above: Non- GFR Calc RBC Auto (Bld) [#/Vol]Ordere d By: Hernandez Mosley on 09-18-2023 RBC (Bld) [#/Vol] 4.79 10*6/uL 4.2-5.4 [facility] Serum or plasma calcium elis urement (mass/volume)Ordered By: Hernandez Mosley on 09-18-2023 Calcium [Mass/Vol] 9.5 mg/dL 8.5-10.1 [facility] Serum or plasma creatinine m easurement (mass/volume)Ordered By: Hernandez Mosley on 09-18-2023 Creatinine [Mass/Vol] 0.76 mg/dL 0.55-1.02 [facility] Comment on above: The validity of the calculated GFR & GFRAA in patients over 70 years has not been determined. Clinical correlation is essential. Serum or plasma thyroid stim ulating hormone (TSH) measurement (units/volume)Ordered By: Hernandez Mosley on 09-18-2023 TSH Qn 1.21 uIU/mL 0.358-3.74 [facility] Serum or plasma urea nitroge n measurement (mass/volume)Ordered By: Hernandez Mosley on 09-18-2023 Urea nitrogen [Mass/Vol] 15 mg/dL 7-18 [facility] Thin prep Papanicolaou smear with manual screeningOrdered By: Hernandez Mosley on 09-18-2023 Thin prep Papanicolaou smear with manual screening 4.0 g/dL 3.2-5.0 [facility] Thin prep Papanicolaou smear with manual screening 20 U/L 15-37 [facility] Thin prep Papanicolaou smear with manual screening 7 5-15 [facility] Absolute lymphocyte countOrd ered By: Hernandez Mosley on 07-05-2023 Lymphocytes Auto (Unsp spec) [#/Vol] 2.32 10*3/uL 0.83-4.51 [facility] Basophil percentageOrdered B y: Hernandez Mosley on 07-05-2023 Basophils/100 WBC (Bld) 0.7 % 0-1 [facility] Bilirubin [Mass/Vol] 0.30 mg/dL 0.20-1.00 [facility] Comment on above: For patients on eltr ombopag therapy, use of Dimension [place] TBIL is not recommended. Chloride [Moles/Vol] 100 mmol/L 98-107 [facility] Cholesterol [Mass/Vol] 205 mg/dL <200 [facility] Comment on above: <200 mg/dL Desirable 200-240 mg/dL Borderline >240 mg/dL High Risk Eosinophils/100 WBC (Bld) 1.0 % 0-5 [facility] Glucose [Mass/Vol] 145 mg/dL 74-106 [facility] Comment on above: Fasting Glucose resu lt greater than or equal to 126 mg/dL suggests DIABETES MELLITUS per A.D.A. criteria. Neutrophils (Bld) [#/Vol] 5.2 10*3/uL 2.0-7.7 [facility] Neutrophils/100 WBC (Bld) 62.2 % 47-70 [facility] Potassium [Moles/Vol] 3.7 mmol/L 3.5-5.1 [facility] Protein [Mass/Vol] 7.3 g/dL 6.4-8.2 [facility] Sodium [Moles/Vol] 137 mmol/L 136-145 [facility] Triglyceride [Mass/Vol] 94 mg/dL <199 [facility] Comment on above: The drugs N-Acetylcy steine and Metamizole may falsely depress this assay.Serum Triglycerides Reference Interval Normal <150 mg/dL Borderline high 150 - 199 mg/dL High 200 - 499 mg/dL Very High > or = 500 mg/dL WBC (Bld) [#/Vol] 8.3 10*3/uL 4.4-11.0 [facility] Blood erythrocytes count (nu mber/volume)Ordered By: Hernandez Mosley on 07-05-2023 RBC (Bld) [#/Vol] 4.13 10*6/uL 4.2-5.4 [facility] Blood hemoglobin measurement (mass/volume)Ordered By: Hernandez Mosley on 07-05-2023 Hemoglobin (Bld) [Mass/Vol] 12.3 g/dL 12.0-15.0 [facility] Blood lymphocytes/100 leukoc ytesOrdered By: Hernandez Mosley on 07-05-2023 Lymphocytes/100 WBC (Bld) 27.9 % 19-41 [facility] Blood monocytes/100 leukocyt esOrdered By: Hernandez Mosley on 07-05-2023 Monocytes/100 WBC (Bld) 7.0 % 0-10 [facility] Blood platelet mean volumeOr dered By: Hernandez Mosley on 07-05-2023 Platelet mean volume (Bld) [Entitic vol] 9.8 fL 6.2-12.0 [facility] Determination of erythrocyte mean corpuscular volume (MCV)Ordered By: Hernandez Mosley on 07-05-2023 MCV (RBC) [Entitic vol] 93.9 fL 81-99 [facility] Hematocrit Auto (Bld) [Volum e fraction]Ordered By: Hernandez Dimitri on 07-05-2023 Hematocrit (Bld) [Volume fraction] 38.8 % 37-47 [facility] Laboratory - Chemistry and C hemistry - challengeOrdered By: [facility] ALP [Catalytic activity/Vol] 93 U/L 45-117 [facility] ALT [Catalytic activity/Vol] 23 U/L 13-56 [facility] CO2 [Moles/Vol] 28.0 mmol/L 21.0-32.0 [facility] Globulin (S) [Mass/Vol] 3.9 g/dL 2.2-4.2 [facility] Urea nitrogen/Creatinine [Mass ratio] 12.0 mg/mg 10-20 [facility] Laboratory - Hematology and Cell countsOrdered By: Hernandez Dimitri 07-05-2023 Erythrocyte distribution width (RBC) [Entitic vol] 43.9 fL 35.1-43.9 [facility] Erythrocyte distribution width (RBC) [Ratio] 12.7 % 11.6-14.6 [facility] Immature granulocytes/100 WBC (Bld) 1.200 % 0.0-0.9 [facility] Comment on above: IG% - Immature Granu locytes (promyelocytes, myelocytes and metamyelocytes) > 1% indicates that a LEFT SHIFT is Present. MCH (RBC) [Entitic mass] 29.8 pg 27.0-32.0 [facility] Nucleated RBC/100 WBC (Bld) [Ratio] 0 % 0-5 [facility] MCHC Auto (RBC) [Mass/Vol]Or dered By: Hernandez Mosley on 07-05-2023 MCHC (RBC) [Mass/Vol] 31.7 g/dL 32-36 [facility] No Panel InformationOrdered By: Hernandez Mosley on 07-05-2023 Estimated GFR (MDRD) Amer 101 mL/min >60 [facility] Comment on above: GFR Calc Estimated GFR (MDRD) Non-Af Amer 83 mL/min >60 [facility] Comment on above: Non- GFR Calc Thyroid Stimulating Hormone (TSH) 0.67 uIU/mL 0.358-3.74 [facility] Platelets bldOrdered By: Hernandez Mosley on 07-05-2023 Platelets (Bld) [#/Vol] 537 10*3/uL 150-450 [facility] Serum or plasma albumin elis urement (mass/volume)Ordered By: Hernandez Mosley on 07-05-2023 Albumin [Mass/Vol] 3.4 g/dL 3.2-5.0 [facility] Serum or plasma albumin/glob ulin mass ratioOrdered By: Hernandez Mosley 07-05-2023 Albumin/Globulin [Mass ratio] 0.9 {ratio} 0.9-2.4 [facility] Serum or plasma calcium elis urement (mass/volume)Ordered By: Hernandez Mosley 07-05-2023 Calcium [Mass/Vol] 8.7 mg/dL 8.5-10.1 [facility] Serum or plasma cholesterol in HDL measurement (mass/volume)Ordered By: Hernandez Mosley 07-05-2023 Cholesterol in HDL [Mass/Vol] 62 mg/dL >40 [facility] Comment on above: The drugs N-Acetylcy steine and Metamizole may falsely depress this assay. Reference Range HDL <40 mg/dL Low HDL Cholesterol HDL >or= 60 mg/dL High HDL Cholesterol Serum or plasma cholesterol in VLDL measurement (mass/volume)Ordered By: Hernandez Mosley 07-05-2023 Cholesterol in VLDL [Mass/Vol] 19 mg/dL 5-40 [facility] Serum or plasma creatinine m easurement (mass/volume)Ordered By: Hernandez Mosley 07-05-2023 Creatinine [Mass/Vol] 0.75 mg/dL 0.55-1.02 [facility] Comment on above: The validity of the calculated GFR & GFRAA in patients over 70 years has not been determined. Clinical correlation is essential. Serum or plasma low density lipoprotein (LDL) cholesterol measurement (mass/volume)Ordered By: Hernandez Mosley on 07-05-2023 Cholesterol in LDL [Mass/Vol] 124 mg/dL 0-130 [facility] Serum or plasma urea nitroge n measurement (mass/volume)Ordered By: Hernandez Mosley on 07-05-2023 Urea nitrogen [Mass/Vol] 9 mg/dL 7-18 [facility] Thin prep Papanicolaou smear with manual screeningOrdered By: Hernandez Mosley on 07-05-2023 Thin prep Papanicolaou smear with manual screening 17 U/L 15-37 [facility] Thin prep Papanicolaou smear with manual screening 9 5-15 [facility] Glucose Glucometer (BldC) [M ass/Vol]Ordered By: Shabbir Birch on 06-21-2023 Glucose [Mass/Vol] 119 mg/dL 74-106 [facility] Comment on above: MANAGEMENT OF PATIEN T CARE PER NURSING PROTOCOL Absolute lymphocyte countOrd ered By: Shabbir Birch on 06-19-2023 Lymphocytes Auto (Unsp spec) [#/Vol] 1.75 10*3/uL 0.83-4.51 [facility] Basophil percentageOrdered B y: Shabbir Birch on 06-19-2023 Basophils/100 WBC (Bld) 0.7 % 0-1 [facility] Chloride [Moles/Vol] 101 mmol/L 98-107 [facility] Eosinophils/100 WBC (Bld) 0.4 % 0-5 [facility] Glucose [Mass/Vol] 99 mg/dL 74-106 [facility] Neutrophils (Bld) [#/Vol] 8.0 10*3/uL 2.0-7.7 [facility] Neutrophils/100 WBC (Bld) 74.7 % 47-70 [facility] Potassium [Moles/Vol] 3.7 mmol/L 3.5-5.1 [facility] Sodium [Moles/Vol] 136 mmol/L 136-145 [facility] WBC (Bld) [#/Vol] 10.7 10*3/uL 4.4-11.0 [facility] Blood erythrocytes count (nu mber/volume)Ordered By: Shabbir Birch on 06-19-2023 RBC (Bld) [#/Vol] 5.17 10*6/uL 4.2-5.4 [facility] Blood hemoglobin measurement (mass/volume)Ordered By: Shabbir Brich on 06-19-2023 Hemoglobin (Bld) [Mass/Vol] 15.4 g/dL 12.0-15.0 [facility] Blood lymphocytes/100 leukoc ytesOrdered By: Shabbir Birch on 06-19-2023 Lymphocytes/100 WBC (Bld) 16.3 % 19-41 [facility] Blood monocytes/100 leukocyt esOrdered By: Shabbir Birch on 06-19-2023 Monocytes/100 WBC (Bld) 7.5 % 0-10 [facility] Blood platelet mean volumeOr dered By: Shabbir Birch on 06-19-2023 Platelet mean volume (Bld) [Entitic vol] 10.1 fL 6.2-12.0 [facility] Determination of erythrocyte mean corpuscular volume (MCV)Ordered By: Shabbir Birch on 06-19-2023 MCV (RBC) [Entitic vol] 91.5 fL 81-99 [facility] Hematocrit Auto (Bld) [Volum e fraction]Ordered By: Shabbir Birch on 06-19-2023 Hematocrit (Bld) [Volume fraction] 47.3 % 37-47 [facility] INR in Blood by Coagulation assayOrdered By: Shabbir Birch on 06-19-2023 INR Coag (Bld) [Relative time] 1.0 {INR} [facility] Laboratory - Chemistry and C hemistry - challengeOrdered By: Shabbir Birch on 06-19-2023 CO2 [Moles/Vol] 29.0 mmol/L 21.0-32.0 [facility] Magnesium [Mass/Vol] 2.0 mg/dL 1.6-2.6 [facility] Urea nitrogen/Creatinine [Mass ratio] 18.5 mg/mg 10-20 [facility] Laboratory - CoagulationOrde red By: Shabbir Birch on 06-19-2023 aPTT Coag (Bld) [Time] 28.8 s 24.1-36.2 [facility] PT Coag (PPP) [Time] 12.6 s 11.7-14.9 [facility] Laboratory - Hematology and Cell countsOrdered By: Shabbir Birch on 06-19-2023 Erythrocyte distribution width (RBC) [Entitic vol] 44.7 fL 35.1-43.9 [facility] Erythrocyte distribution width (RBC) [Ratio] 13.2 % 11.6-14.6 [facility] Immature granulocytes/100 WBC (Bld) 0.400 % 0.0-0.9 [facility] Comment on above: IG% - Immature Granu locytes (promyelocytes, myelocytes and metamyelocytes) > 1% indicates that a LEFT SHIFT is Present. MCH (RBC) [Entitic mass] 29.8 pg 27.0-32.0 [facility] Nucleated RBC/100 WBC (Bld) [Ratio] 0 % 0-5 [facility] MCHC Auto (RBC) [Mass/Vol]Or dered By: Shabbir Birch on 06-19-2023 MCHC (RBC) [Mass/Vol] 32.6 g/dL 32-36 [facility] No Panel InformationOrdered By: Shabbir Birch on 06-19-2023 Estimated GFR (MDRD) Amer 92 mL/min >60 [facility] Comment on above: GFR Calc Estimated GFR (MDRD) Non-Af Amer 76 mL/min >60 [facility] Comment on above: Non- GFR Calc Fructosamine 236 umol/L 0-285 [facility] Comment on above: Published reference interval for apparently healthysubjects between age 20 and 60 is 205 - 285 umol/L and in apoorly controlled diabetic population is 228 - 563 umol/Lwith a mean of 396 umol/L.Performed at: - [address] [id number] Director: Bhaskar Mane PhD, Phone: [phone] Nasal Screen MRSA/MSSA [facility] Platelets bldOrdered By: Edward Birch on 06-19-2023 Platelets (Bld) [#/Vol] 388 10*3/uL 150-450 [facility] Serum or plasma calcium elis urement (mass/volume)Ordered By: Shabbir Birch on 06-19-2023 Calcium [Mass/Vol] 9.7 mg/dL 8.5-10.1 [facility] Serum or plasma creatinine m easurement (mass/volume)Ordered By: Shabbir Birch on 06-19-2023 Creatinine [Mass/Vol] 0.81 mg/dL 0.55-1.02 [facility] Comment on above: The validity of the calculated GFR & GFRAA in patients over 70 years has not been determined. Clinical correlation is essential. Serum or plasma urea nitroge n measurement (mass/volume)Ordered By: Shabbir Birch on 06-19-2023 Urea nitrogen [Mass/Vol] 15 mg/dL 7-18 [facility] Thin prep Papanicolaou smear with manual screeningOrdered By: [place] Lainayumiko on 06-19-2023 Thin prep Papanicolaou smear with manual screening 6 5-15 [facility] Whole blood hemoglobin A1c/t otal hemoglobin ratio (mass fraction)Ordered By: Shabbir Birch on 06-19-2023 HbA1c (Bld) [Mass fraction] 5.5 % 3.8-5.6 [facility] Comment on above: Normal < 5.7 % Predi abetic 5.7 - 6.4 % Diabetic >or= 6.5 % Please note range changes. Culture, urineOrdered By: Dr Jaswinder Wolfe on 10-15-2022 Bacteria identified Cx Nom (U) Pseudomonas aeruginosa [facility] Absolute lymphocyte countOrd ered By: Dr. Hernández on 10-14-2022 Lymphocytes Auto (Unsp spec) [#/Vol] 1.48 10*3/uL 0.83-4.51 [facility] Basophil percentageOrdered B y: Dr. Hernández on 10-14-2022 Basophils/100 WBC (Bld) 0.4 % 0-1 [facility] Chloride [Moles/Vol] 100 mmol/L 98-107 [facility] Eosinophils/100 WBC (Bld) 1.9 % 0-5 [facility] Glucose [Mass/Vol] 145 mg/dL 74-106 [facility] Comment on above: Fasting Glucose resu lt greater than or equal to 126 mg/dL suggests DIABETES MELLITUS per A.D.A. criteria. Neutrophils (Bld) [#/Vol] 6.9 10*3/uL 2.0-7.7 [facility] Neutrophils/100 WBC (Bld) 71.5 % 47-70 [facility] Potassium [Moles/Vol] 3.4 mmol/L 3.5-5.1 [facility] Sodium [Moles/Vol] 137 mmol/L 136-145 [facility] WBC (Bld) [#/Vol] 9.6 10*3/uL 4.4-11.0 [facility] Blood erythrocytes count (nu mber/volume)Ordered By: Dr. Hernández on 10-14-2022 RBC (Bld) [#/Vol] 3.56 10*6/uL 4.2-5.4 [facility] Blood hemoglobin measurement (mass/volume)Ordered By: Dr. Hernández on 10-14-2022 Hemoglobin (Bld) [Mass/Vol] 10.7 g/dL 12.0-15.0 [facility] Blood lymphocytes/100 leukoc ytesOrdered By: Dr. Hernández on 10-14-2022 Lymphocytes/100 WBC (Bld) 15.4 % 19-41 [facility] Blood monocytes/100 leukocyt esOrdered By: Dr. Hernández on 10-14-2022 Monocytes/100 WBC (Bld) 10.3 % 0-10 [facility] Blood platelet mean volumeOr dered By: Dr. Hernández on 10-14-2022 Platelet mean volume (Bld) [Entitic vol] 10.0 fL 6.2-12.0 [facility] Determination of erythrocyte mean corpuscular volume (MCV)Ordered By: Dr. Hernández on 10-14-2022 MCV (RBC) [Entitic vol] 95.8 fL 81-99 [facility] Hematocrit Auto (Bld) [Volum e fraction]Ordered By: Dr. Hernández on 10-14-2022 Hematocrit (Bld) [Volume fraction] 34.1 % 37-47 [facility] Laboratory - Chemistry and C hemistry - challengeOrdered By: Dr. Hernández on 10-14-2022 CO2 [Moles/Vol] 29.0 mmol/L 21.0-32.0 [facility] Urea nitrogen/Creatinine [Mass ratio] 8.3 mg/mg 10-20 [facility] Laboratory - Hematology and Cell countsOrdered By: Dr. Hernández on 10-14-2022 Erythrocyte distribution width (RBC) [Entitic vol] 45.2 fL 35.1-43.9 [facility] Erythrocyte distribution width (RBC) [Ratio] 12.8 % 11.6-14.6 [facility] Immature granulocytes/100 WBC (Bld) 0.500 % 0.0-0.9 [facility] Comment on above: IG% - Immature Granu locytes (promyelocytes, myelocytes and metamyelocytes) > 1% indicates that a LEFT SHIFT is Present. MCH (RBC) [Entitic mass] 30.1 pg 27.0-32.0 [facility] Nucleated RBC/100 WBC (Bld) [Ratio] 0 % 0-5 [facility] MCHC Auto (RBC) [Mass/Vol]Or dered By: Dr. Hernández on 10-14-2022 MCHC (RBC) [Mass/Vol] 31.4 g/dL 32-36 [facility] No Panel InformationOrdered By: Dr. Hernández on 10-14-2022 Estimated Creatinine Clearance Calc 86.10 ml/min [facility] Estimated GFR (MDRD) Amer 131 mL/min >60 [facility] Comment on above: GFR Calc Estimated GFR (MDRD) Non-Af Amer 108 mL/min >60 [facility] Comment on above: Non- GFR Calc Platelets bldOrdered By: Dr. Hernández on 10-14-2022 Platelets (Bld) [#/Vol] 278 10*3/uL 150-450 [facility] Serum or plasma calcium elis urement (mass/volume)Ordered By: Dr. Hernández on 10-14-2022 Calcium [Mass/Vol] 9.1 mg/dL 8.5-10.1 [facility] Serum or plasma creatinine m easurement (mass/volume)Ordered By: Dr. Hernández on 10-14-2022 Creatinine [Mass/Vol] 0.60 mg/dL 0.55-1.02 [facility] Comment on above: The validity of the calculated GFR & GFRAA in patients over 70 years has not been determined. Clinical correlation is essential. Serum or plasma urea nitroge n measurement (mass/volume)Ordered By: Dr. Hernández on 10-14-2022 Urea nitrogen [Mass/Vol] 5 mg/dL 7-18 [facility] Thin prep Papanicolaou smear with manual screeningOrdered By: Dr. Hernández on 10-14-2022 Thin prep Papanicolaou smear with manual screening 8 5-15 [facility] Basophil percentageOrdered B y: Dr. Wolfe on 10-13-2022 Basophil percentage 0-5 SEEN /hpf 0-5 [facility] Bilirubin Test strip Ql (U)O rdered By: Dr. Wolfe on 10-13-2022 Bilirubin Ql (U) Negative Negative [facility] COVID-19 virus antigen assay Ordered By: Dr. Wolfe on 10-13-2022 SARS-CoV-2 (COVID-19) Ag IA.rapid Ql (Resp) Not detected Not Detect [facility] Comment on above: Normal Reference Ran ge: [...] 10-13-2022 Ketones Ql (U) 15 mg/dl Negative [facility] Mucus LM Ql (Urine sed)Order ed By: Dr. Wolfe on 10-13-2022 Mucus Ql (Urine sed) 0 SEEN /hpf [facility] Nitrite Test strip Ql (U)Ord ered By: Dr. Wolfe on 10-13-2022 Nitrite Ql (U) Negative Negative [facility] Protein Test strip Ql (U)Ord ered By: Dr. Wolfe on 10-13-2022 Protein Ql (U) 15 mg/dl Negative [facility] Squamous epithelial cells de tection in urine sediment by light microscopyOrdered By: Dr. Wolfe on 10-13-2022 Epithelial cells.squamous LM Ql (Urine sed) 0 SEEN /hpf 5-10 [facility] Urine blood detectionOrdered By: Dr. Wolfe on 10-13-2022 RBC Ql (U) Negative Negative [facility] RBC Ql (U) 0 SEEN /hpf 0-5 [facility] Urine clarityOrdered By: Dr. Wolfe on 10-13-2022 Clarity (U) Clear Clear [facility] Urine color determinationOrd ered By: Dr. Wolfe on 10-13-2022 Color (U) Yellow Yellow [facility] Urine glucose detectionOrder ed By: Dr. Wolfe on 10-13-2022 Glucose Ql (U) Normal mg/dl Normal [facility] Urine leukocyte esterase det ection by dipstickOrdered By: Dr. Wolfe on 10-13-2022 Leukocyte esterase Test strip Ql (U) Negative Negative [facility] Urine pHOrdered By: Dr. Narcisa alonso on 10-13-2022 pH (U) 7.0 [pH] 5.0 - 8.0 [facility] Urine sediment bacteria coun t by microscopy (number/high power field)Ordered By: Dr. Wolfe on 10-13-2022 Bacteria LM.HPF (Urine sed) [#/Area] 0 /[HPF] None Seen [facility] Urine specific gravity measu rementOrdered By: Dr. Wolfe on 10-13-2022 Specific gravity (U) [Rel density] 1.010 1.002-1.030 [facility] Urobilinogen Auto test strip Ql (U)Ordered By: Dr. Wolfe on 10-13-2022 Urobilinogen Ql (U) Normal mg/dl Normal [facility] Glucose Glucometer (BldC) [M ass/Vol]Ordered By: Dr. Damian on 10-11-2022 Glucose [Mass/Vol] 141 mg/dL 74-106 [facility] Comment on above: MANAGEMENT OF PATIEN T CARE PER NURSING PROTOCOL Laboratory - Chemistry and C hemistry - challengeOrdered By: Dr. Madrigal on 10-05-2022 Magnesium [Mass/Vol] 1.8 mg/dL 1.6-2.6 [facility] COVID-19 virus antigen assay Ordered By: Dr. Mosley on 09-23-2022 SARS-CoV-2 (COVID-19) Ag IA.rapid Ql (Resp) Not detected Not Detect [facility] Comment on above: Normal Reference Ran ge: [...] 09-23-2022 Influenza Types A,B Direct FA (PIEDAD) [facility] RSV Ag EIAOrdered By: Dr. Jacquie mendosa on 09-23-2022 RSV Ag Immune stain Ql (Tiss) [facility] Absolute lymphocyte countOrd ered By: Dr. Mosley on 09-13-2022 Lymphocytes Auto (Unsp spec) [#/Vol] 2.17 10*3/uL 0.83-4.51 [facility] Basophil percentageOrdered B y: Dr. Mosley on 09-13-2022 Basophils/100 WBC (Bld) 0.8 % 0-1 [facility] Bilirubin [Mass/Vol] 0.60 mg/dL 0.20-1.00 [facility] Comment on above: For patients on eltr ombopag therapy, use of Dimension [place] TBIL is not recommended. Chloride [Moles/Vol] 103 mmol/L 98-107 [facility] Cholesterol [Mass/Vol] 242 mg/dL <200 [facility] Comment on above: <200 mg/dL Desirable 200-240 mg/dL Borderline >240 mg/dL High Risk Eosinophils/100 WBC (Bld) 1.1 % 0-5 [facility] Glucose [Mass/Vol] 106 mg/dL 74-106 [facility] Comment on above: Fasting Glucose resu lt from 100 to 125 mg/dL suggests IMPAIRED HOMEOSTASIS per A.D.A. criteria. Neutrophils (Bld) [#/Vol] 3.7 10*3/uL 2.0-7.7 [facility] Neutrophils/100 WBC (Bld) 55.0 % 47-70 [facility] Potassium [Moles/Vol] 3.9 mmol/L 3.5-5.1 [facility] Protein [Mass/Vol] 8.1 g/dL 6.4-8.2 [facility] Sodium [Moles/Vol] 139 mmol/L 136-145 [facility] Triglyceride [Mass/Vol] 76 mg/dL <199 [facility] Comment on above: The drugs N-Acetylcy steine and Metamizole may falsely depress this assay.Serum Triglycerides Reference Interval Normal <150 mg/dL Borderline high 150 - 199 mg/dL High 200 - 499 mg/dL Very High > or = 500 mg/dL WBC (Bld) [#/Vol] 6.7 10*3/uL 4.4-11.0 [facility] Blood erythrocytes count (nu mber/volume)Ordered By: Dr. Mosley on 09-13-2022 RBC (Bld) [#/Vol] 4.84 10*6/uL 4.2-5.4 [facility] Blood hemoglobin measurement (mass/volume)Ordered By: Dr. Mosley on 09-13-2022 Hemoglobin (Bld) [Mass/Vol] 14.7 g/dL 12.0-15.0 [facility] Blood lymphocytes/100 leukoc ytesOrdered By: Dr. Mosley on 09-13-2022 Lymphocytes/100 WBC (Bld) 32.6 % 19-41 [facility] Blood monocytes/100 leukocyt esOrdered By: Dr. Mosley on 09-13-2022 Monocytes/100 WBC (Bld) 10.2 % 0-10 [facility] Blood platelet mean volumeOr dered By: Dr. Mosley on 09-13-2022 Platelet mean volume (Bld) [Entitic vol] 10.5 fL 6.2-12.0 [facility] Determination of erythrocyte mean corpuscular volume (MCV)Ordered By: Dr. Mosley on 09-13-2022 MCV (RBC) [Entitic vol] 93.8 fL 81-99 [facility] Hematocrit Auto (Bld) [Volum e fraction]Ordered By: Dr. Mosley on 09-13-2022 Hematocrit (Bld) [Volume fraction] 45.4 % 37-47 [facility] Laboratory - Chemistry and C hemistry - challengeOrdered By: Dr. Mosley on 09-13-2022 ALP [Catalytic activity/Vol] 100 U/L 45-117 [facility] ALT [Catalytic activity/Vol] 28 U/L 13-56 [facility] CO2 [Moles/Vol] 28.0 mmol/L 21.0-32.0 [facility] Globulin (S) [Mass/Vol] 3.8 g/dL 2.2-4.2 [facility] Urea nitrogen/Creatinine [Mass ratio] 17.5 mg/mg 10-20 [facility] Laboratory - Hematology and Cell countsOrdered By: Dr. Mosley on 09-13-2022 Erythrocyte distribution width (RBC) [Entitic vol] 43.8 fL 35.1-43.9 [facility] Erythrocyte distribution width (RBC) [Ratio] 12.6 % 11.6-14.6 [facility] Immature granulocytes/100 WBC (Bld) 0.300 % 0.0-0.9 [facility] Comment on above: IG% - Immature Granu locytes (promyelocytes, myelocytes and metamyelocytes) > 1% indicates that a LEFT SHIFT is Present. MCH (RBC) [Entitic mass] 30.4 pg 27.0-32.0 [facility] Nucleated RBC/100 WBC (Bld) [Ratio] 0 % 0-5 [facility] MCHC Auto (RBC) [Mass/Vol]Or dered By: Dr. Mosley on 09-13-2022 MCHC (RBC) [Mass/Vol] 32.4 g/dL 32-36 [facility] No Panel InformationOrdered By: Dr. Mosley on 09-13-2022 Estimated GFR (MDRD) Amer 87 mL/min >60 [facility] Comment on above: GFR Calc Estimated GFR (MDRD) Non-Af Amer 72 mL/min >60 [facility] Comment on above: Non- GFR Calc Thyroid Stimulating Hormone (TSH) 1.27 uIU/mL 0.358-3.74 [facility] Vitamin D 25-Hydroxy 36.3 ng/mL [facility] Comment on above: Vitamin D 25(OH) Sta tus Range Deficiency <20 ng/mL (50nmol/L) Insufficiency 20 - 30 ng/mL (50 - 75 nmol/L) Sufficiency 30 - 100 ng/mL (75 - 250 nmol/L) Toxicity >100 ng/mL (>250 nmol/L) Platelets bldOrdered By: Dr. Mosley on 09-13-2022 Platelets (Bld) [#/Vol] 344 10*3/uL 150-450 [facility] Serum or plasma albumin elis urement (mass/volume)Ordered By: Dr. Mosley on 09-13-2022 Albumin [Mass/Vol] 4.3 g/dL 3.2-5.0 [facility] Serum or plasma albumin/glob ulin mass ratioOrdered By: Dr. Mosley on 09-13-2022 Albumin/Globulin [Mass ratio] 1.1 {ratio} 0.9-2.4 [facility] Serum or plasma calcium elis urement (mass/volume)Ordered By: Dr. Mosley on 09-13-2022 Calcium [Mass/Vol] 9.6 mg/dL 8.5-10.1 [facility] Serum or plasma cholesterol in HDL measurement (mass/volume)Ordered By: Dr. Mosley on 09-13-2022 Cholesterol in HDL [Mass/Vol] 86 mg/dL >40 [facility] Comment on above: The drugs N-Acetylcy steine and Metamizole may falsely depress this assay. Reference Range HDL <40 mg/dL Low HDL Cholesterol HDL >or= 60 mg/dL High HDL Cholesterol Serum or plasma cholesterol in VLDL measurement (mass/volume)Ordered By: Dr. Mosley on 09-13-2022 Cholesterol in VLDL [Mass/Vol] 15 mg/dL 5-40 [facility] Serum or plasma creatinine m easurement (mass/volume)Ordered By: Dr. Mosley on 09-13-2022 Creatinine [Mass/Vol] 0.86 mg/dL 0.55-1.02 [facility] Comment on above: The validity of the calculated GFR & GFRAA in patients over 70 years has not been determined. Clinical correlation is essential. Serum or plasma low density lipoprotein (LDL) cholesterol measurement (mass/volume)Ordered By: Dr. Mosley on 09-13-2022 Cholesterol in LDL [Mass/Vol] 141 mg/dL 0-130 [facility] Serum or plasma urea nitroge n measurement (mass/volume)Ordered By: Dr. Mosley on 09-13-2022 Urea nitrogen [Mass/Vol] 15 mg/dL 7-18 [facility] Thin prep Papanicolaou smear with manual screeningOrdered By: Dr. Mosley on 09-13-2022 Thin prep Papanicolaou smear with manual screening 17 U/L 15-37 [facility] Thin prep Papanicolaou smear with manual screening 8 5-15 [facility] CNPNon 08-22-2022 CNPN Telephone (PNNA) -------- JUDY REAGAN ([id number]) 1960 F Date Time Provider Department 08/22/22 URIEL BOWER During your visit today, we recorded the following information about you: Marzena Elise RN 08/22/2022 2:35 PM Signed Patient left voicemail 08/22/2022 at 0878 Patient contacted at this time Patient requesting Dr. Bower's office to fax medical records to [employer] Patient's MRI is currently being denied and patient filed an expedited appeal Patient requesting records to be faxed to [phone] Case# [id number] Records faxed at this time per patient's request Allergies As of Date: 08/22/2022 Noted Allergy Reaction ADHESIVE TAPE (ROSINS) 06/06/2016 2 - Rash BEE STING 09/02/2019 7 - Swelling Date Reviewed: 06/06/2022 Reviewed by: Amber Guerra RN - Fully Assessed Reason for Visit: Patient Question [9887] Prescriptions as of 08/22/2022 - traMADol (ULTRAM) 50 mg tablet Take 50 mg by mouth twice daily as needed. Currently not taking while on [place] for pain - amLODIPine (NORVASC) 5 mg [...] Status:Closed by MARZENA ELISE RN on 08/22/22 [facility] No Panel InformationOrdered By: Dr. Damian on 08-12-2022 Nasal Screen MRSA/MSSA [facility] HIV 1 and HIV-2 antibody ass ay with HIV-1 p24 antigen detectionOrdered By: Dr. Damian on 08-11-2022 HIV 1+2 Ab+HIV1 p24 Ag IA Ql Non-Reactive Nonreactive [facility] Laboratory - Chemistry and C hemistry - challengeOrdered By: Dr. Roach on 08-11-2022 Magnesium [Mass/Vol] 2.1 mg/dL 1.6-2.6 [facility] No Panel InformationOrdered By: Dr. Damian on 08-11-2022 Hepatitis A Antibody Total Negative Negative [facility] Comment on above: Performed at: [place] [id number] Director: Bhaskar Mane PhD, Phone: [phone] Hepatitis C Antibody Non-Reactive Nonreactive [facility] Comment on above: Non Reactive: < 0.8 Equivocal: >/= 0.8 to < 1.0 Reactive: >/= 1.0The CDC recommends that a reactive/equivocal HCV antibody result be followed up by the HCV Nucleic Acid Amplificationtest (026223) Serum hepatitis B virus surf magaly antibody IgG detectionOrdered By: Dr. Damian on 08-11-2022 HBV surface IgG Ql (S) Reactive [facility] Comment on above: Non Reactive: Incons istent with immunity less than <10 mIU/mL Reactive: Consistent with immunity greater than or equal to 10 mIU/mL Absolute lymphocyte countOrd ered By: Dr. Mosley on 08-04-2022 Lymphocytes Auto (Unsp spec) [#/Vol] 2.41 10*3/uL 0.83-4.51 [facility] Basophil percentageOrdered B y: Dr. Mosley on 08-04-2022 Basophils/100 WBC (Bld) 0.8 % 0-1 [facility] Bilirubin [Mass/Vol] 0.60 mg/dL 0.20-1.00 [facility] Comment on above: For patients on eltr ombopag therapy, use of Dimension [place] TBIL is not recommended. Chloride [Moles/Vol] 101 mmol/L 98-107 [facility] Cholesterol [Mass/Vol] 246 mg/dL <200 [facility] Comment on above: <200 mg/dL Desirable 200-240 mg/dL Borderline >240 mg/dL High Risk Eosinophils/100 WBC (Bld) 0.6 % 0-5 [facility] Glucose [Mass/Vol] 80 mg/dL 74-106 [facility] Neutrophils (Bld) [#/Vol] 4.5 10*3/uL 2.0-7.7 [facility] Neutrophils/100 WBC (Bld) 58.2 % 47-70 [facility] Potassium [Moles/Vol] 3.5 mmol/L 3.5-5.1 [facility] Protein [Mass/Vol] 7.8 g/dL 6.4-8.2 [facility] Sodium [Moles/Vol] 136 mmol/L 136-145 [facility] Triglyceride [Mass/Vol] 143 mg/dL <199 [facility] Comment on above: The drugs N-Acetylcy steine and Metamizole may falsely depress this assay.Serum Triglycerides Reference Interval Normal <150 mg/dL Borderline high 150 - 199 mg/dL High 200 - 499 mg/dL Very High > or = 500 mg/dL WBC (Bld) [#/Vol] 7.8 10*3/uL 4.4-11.0 [facility] Blood erythrocytes count (nu mber/volume)Ordered By: Dr. Mosley on 08-04-2022 RBC (Bld) [#/Vol] 4.36 10*6/uL 4.2-5.4 [facility] Blood hemoglobin measurement (mass/volume)Ordered By: Dr. Mosley on 08-04-2022 Hemoglobin (Bld) [Mass/Vol] 13.7 g/dL 12.0-15.0 [facility] Blood lymphocytes/100 leukoc ytesOrdered By: Dr. Mosley on 08-04-2022 Lymphocytes/100 WBC (Bld) 30.9 % 19-41 [facility] Blood monocytes/100 leukocyt esOrdered By: Dr. Mosley on 08-04-2022 Monocytes/100 WBC (Bld) 9.1 % 0-10 [facility] Blood platelet mean volumeOr dered By: Dr. Mosley on 08-04-2022 Platelet mean volume (Bld) [Entitic vol] 10.3 fL 6.2-12.0 [facility] Determination of erythrocyte mean corpuscular volume (MCV)Ordered By: Dr. Mosley on 08-04-2022 MCV (RBC) [Entitic vol] 92.9 fL 81-99 [facility] Hematocrit Auto (Bld) [Volum e fraction]Ordered By: Dr. Mosley on 08-04-2022 Hematocrit (Bld) [Volume fraction] 40.5 % 37-47 [facility] INR in Blood by Coagulation assayOrdered By: Dr. Mosley on 08-04-2022 INR Coag (Bld) [Relative time] 1.0 {INR} [facility] Laboratory - Chemistry and C hemistry - challengeOrdered By: Dr. Mosley on 08-04-2022 ALP [Catalytic activity/Vol] 98 U/L 45-117 [facility] ALT [Catalytic activity/Vol] 34 U/L 13-56 [facility] CO2 [Moles/Vol] 31.0 mmol/L 21.0-32.0 [facility] Globulin (S) [Mass/Vol] 3.7 g/dL 2.2-4.2 [facility] Urea nitrogen/Creatinine [Mass ratio] 15.2 mg/mg 10-20 [facility] Laboratory - CoagulationOrde red By: Dr. Mosley on 01-12-2023 PT Coag (PPP) [Time] 13.2 s 11.7-14.9 [facility] Laboratory - Hematology and Cell countsOrdered By: Dr. Mosley on 08-04-2022 Erythrocyte distribution width (RBC) [Entitic vol] 43.2 fL 35.1-43.9 [facility] Erythrocyte distribution width (RBC) [Ratio] 12.6 % 11.6-14.6 [facility] Immature granulocytes/100 WBC (Bld) 0.400 % 0.0-0.9 [facility] Comment on above: IG% - Immature Granu locytes (promyelocytes, myelocytes and metamyelocytes) > 1% indicates that a LEFT SHIFT is Present. MCH (RBC) [Entitic mass] 31.4 pg 27.0-32.0 [facility] Nucleated RBC/100 WBC (Bld) [Ratio] 0 % 0-5 [facility] MCHC Auto (RBC) [Mass/Vol]Or dered By: Dr. Mosley on 08-04-2022 MCHC (RBC) [Mass/Vol] 33.8 g/dL 32-36 [facility] No Panel InformationOrdered By: Dr. Mosley on 08-04-2022 Estimated GFR (MDRD) Amer 106 mL/min >60 [facility] Comment on above: GFR Calc Estimated GFR (MDRD) Non-Af Amer 87 mL/min >60 [facility] Comment on above: Non- GFR Calc Thyroid Stimulating Hormone (TSH) 0.91 uIU/mL 0.358-3.74 [facility] Platelets bldOrdered By: Dr. Mosley on 08-04-2022 Platelets (Bld) [#/Vol] 337 10*3/uL 150-450 [facility] Serum or plasma albumin elis urement (mass/volume)Ordered By: Dr. Mosley on 08-04-2022 Albumin [Mass/Vol] 4.1 g/dL 3.2-5.0 [facility] Serum or plasma albumin/glob ulin mass ratioOrdered By: Dr. Mosley on 08-04-2022 Albumin/Globulin [Mass ratio] 1.1 {ratio} 0.9-2.4 [facility] Serum or plasma calcium elis urement (mass/volume)Ordered By: Dr. Mosley on 08-04-2022 Calcium [Mass/Vol] 9.3 mg/dL 8.5-10.1 [facility] Serum or plasma cholesterol in HDL measurement (mass/volume)Ordered By: Dr. Mosley on 08-04-2022 Cholesterol in HDL [Mass/Vol] 82 mg/dL >40 [facility] Comment on above: The drugs N-Acetylcy steine and Metamizole may falsely depress this assay. Reference Range HDL <40 mg/dL Low HDL Cholesterol HDL >or= 60 mg/dL High HDL Cholesterol Serum or plasma cholesterol in VLDL measurement (mass/volume)Ordered By: Dr. Mosley on 08-04-2022 Cholesterol in VLDL [Mass/Vol] 29 mg/dL 5-40 [facility] Serum or plasma creatinine m easurement (mass/volume)Ordered By: Dr. Mosley on 08-04-2022 Creatinine [Mass/Vol] 0.72 mg/dL 0.55-1.02 [facility] Comment on above: The validity of the calculated GFR & GFRAA in patients over 70 years has not been determined. Clinical correlation is essential. Serum or plasma low density lipoprotein (LDL) cholesterol measurement (mass/volume)Ordered By: Dr. Mosley on 08-04-2022 Cholesterol in LDL [Mass/Vol] 135 mg/dL 0-130 [facility] Serum or plasma urea nitroge n measurement (mass/volume)Ordered By: Dr. Mosley on 08-04-2022 Urea nitrogen [Mass/Vol] 11 mg/dL 7-18 [facility] Thin prep Papanicolaou smear with manual screeningOrdered By: Dr. Mosley on 08-04-2022 Thin prep Papanicolaou smear with manual screening 22 U/L 15-37 [facility] Thin prep Papanicolaou smear with manual screening 4 5-15 [facility] ANES POSTPROC EVALon 022 ANES POSTPROC EVAL HNO ID: [id number] Author: Kris Najera MD Service: Anesthesiology Author Type: Anesthesiologist Type: Anesthesia Postprocedure Evaluation Filed: 06/06/2022 10:30 AM Note Text: POST ANESTHESIA EVALUATION NOTE : 1960 Procedure Summary Date: 06/06/22 Room / Location: [facility] / [place] OR Anesthesia Start: 737 Anesthesia Stop: 815 [...] Resp 23 06/06/22 0854 SpO2 98 % 06/06/2254 Vitals shown include unvalidated device data. Post [...] June 06, 2022 TIME: 10:29 AM CSN: [id number] [facility] ANES PRE-OPon 06-06-2022 ANES PRE-OP HNO ID: [id number] Author: Kris Najera MD Service: Anesthesiology Author Type: Anesthesiologist Type: Anesthesia Preprocedure Evaluation Filed: 06/06/2022 6:59 AM Note Text: ANESTHESIOLOGY DAY OF SURGERY NOTE : 1960 Procedure Information Date/Time: 06/06/22729 Procedure: INJECT ANKLE (Right: Foot) Location: [place] [address] / [place] Surgeons: Yumiko Welsh Estimated body mass [...] no. Vitals Value Taken Time BP 200/113 06/06/22643 Pulse Resp 16 06/06/22643 Temp 36.7 ?C (98.1 ?F) 06/06/22643 SpO2 100 % 06/06/22643 Facility-Administered Medications as of 06/06/2022 Medication Dose [...] as needed. Currently not taking while on [place] for pain - amLODIPine (NORVASC) 5 mg [...] June 06, 2022 TIME: 6:58 AM CSN: [id number] [facility] HISTORY PHYSICALon HISTORY PHYSICAL HNO ID: [id number] Author: Yumiko Welsh Service: ? Author Type: [...] DATE: June 06, 2022 TIME: 7:02 AM [facility] NURSING PROGon 06-06-2022 NURSING PROG HNO ID: [id number] Author: Hattie Toledo RN Service: Nursing Author Type: Registered Nurse Type: Nursing Progress Note Filed: 06/06/2022 8:51 AM Note Text: Other: spoke with via telephone, pt to continue all her meds at their normal times and doses on D/C Normal [facility] OPERATIVE NOon 06-06-2022 OPERATIVE NO HNO ID: [id number] Author: Yumiko Welsh Service: ? Author Type: Physician Type: Operative Report Filed: 06/06/2022 10:51 AM Note Text: OPERATIVE/PROCEDURE REPORT LOG ID: [id number] SURGERY/PROCEDURE DATE: 06/06/2022 INCISION/PROCEDURE START TIME: 7:58 AM INCISION CLOSE/PROCEDURE END TIME: 8:07 AM SURGEON(S)/PROCEDURALIST (S) AND SYSTEM OPERATOR(S): Surgeon(s) and Role: * Yumiko Welsh - [...] DATE: June 06, 2022 TIME: 10:42 AM [facility] XR FLUOROSCOPYon 06-06-2022 XR FLUOROSCOPY * * [...] Area Product (DAP): Fluoro time: 0:34 min:sec Manager Shipping: REBECCA Transcribe Date/Time: Jun 06 2022 9:06A Dictated by : Vandana ESTRADA MD This examination was interpreted and the report reviewed and electronically signed by: Vandana ESTRADA MD on Jun 06 2022 9:09AM EST [id number] [facility] HISTORY PHYSICALon HISTORY PHYSICAL HNO ID: [id number] Author: Susana Leyva APRN.ACADEMIC DEAN Service: ? Author Type: Nurse Practitioner Type: [...] fevers. Neurological: No history of TIA's, stroke, BROKERAGE OFFICE MANAGER tumor, impaired sensorium, hemiplegia, paraplegia or quadraplegia. [...] > 1 time per night or hematuria. 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 Skin: +psoriasis, on rx PAST MEDICAL HISTORY [...] Breast C (more content not included)... Normal [facility] [place] 05-19-2022 FLON Telephone (PODIWS) -------- JUDY REAGAN ([id number]) 1960 F Date Time Provider Department 05/19/22 YUMIKO WELSH During your visit today, we recorded the following information about you: Rosa Greenberg RN 05/19/2022 11:16 AM Signed Left patient Vm to contact office and give surgical date. Patient scheduled for XR guided injection of R 1st MTPJ on 06/06/22 at [facility]. Patient will need a month follow up post injection scheduled when she returns call. Mavis Russell LPN 05/19/2022 11:22 AM Signed Patient called. Verified name and date of . Transferred to nurseKitty, in podiatry. Mavis Greenberg RN 05/19/2022 11:31 AM Signed Patient notified of surgical date. Follow up scheduled. Surgical confirmation letter sent to patient via [employer] message. Allergies As of Date: 05/19/2022 Noted Allergy Reaction ADHESIVE TAPE (ROSINS) 06/06/2016 2 - Rash BEE STING 09/02/2019 7 - Swelling Date Reviewed: 05/18/2022 Reviewed by: Rosa Greenberg RN - Fully Assessed Reason for Visit: Schedule Surgery [1330] Primary Visit Diagnosis:Acquired hallux limitus of right foot [M20.5X1] Order(s):SURGICAL REQUEST - ELECTIVE (02/2020) [2374112] Order #: [id number]: 1 Prescriptions as of 05/19/2022 - methylPREDNISolone (MEDROL, AMIRA,) 4 mg Dose-Pack Take 1 tablet by mouth as directed. As directed on package - traMADol (ULTRAM) 50 mg tablet Take 50 mg by mouth twice daily as needed. Currently not taking while on [place] for pain - amLODIPine (NORVASC) 5 mg [...] Status:Closed by ROSA GREENBERG RN on 05/19/22 [facility] CNOVon 05-18-2022 CNOV Office Visit (PODIWS ) -------- BRIENJUDY ([id number]) 1960 F Date Time Provider Department 05/18/22 4:00 PM YUMIKO WELSH During your visit today, we [...] as needed. Currently not taking while on [place] for pain amLODIPine (NORVASC) 5 mg tablet [...] black stoo (more content not included)... Normal [facility] XR FOOT 3V AP/LAT/OBL RTon 1 [...] ENTHESOPHYTES. MILD DEGENERATIVE CHANGES. NO ACUTE FRACTURE Manager Shipping: [facility] Transcribe Date/Time: May 20 2022 3:03P Dictated by : IVORY SARMIENTO MD This examination was interpreted and the report reviewed and electronically signed by: IVORY SARMIENTO MD on May 20 2022 3:06PM EST [id number] Normal [facility] XR FOOT GENERAL 3V AP/LAT/OB L RIGHTon 05-18-2022 [facility] CNP[facility] Telephone (PODIWS) -------- BRIENJUDY Chirinos ([id number]) 1960 F Date Time Provider Department 05/04/22 YUMIKO WELSH During your visit today, we recorded the following information about you: Racquel Barkley LPN 05/04/2022 9:37 AM Signed Patient called asking if could have another Right big toe injection, d/t swelling and pain. Please call patient back. Thank you. Judy#[phone] Zonia Bernardo LPN 05/04/2022 2:11 PM Signed Called patient and scheduled her an appointment on 05/18/2022 at 4 pm to discuss receiving another injection. Zonia Bernardo LPN Allergies As of Date: 05/04/2022 Noted Allergy Reaction ADHESIVE TAPE (ROSINS) 06/06/2016 2 - Rash BEE STING 09/02/2019 7 - Swelling Date Reviewed: 05/02/2022 Reviewed by: Jesus Alberto Harris APRN.ACADEMIC DEAN - Fully Assessed Reason for Visit: Patient Question [3529] Cmt: Right Big toe Prescriptions as of 05/19/2022 - methylPREDNISolone (MEDROL, AMIRA,) 4 mg Dose-Pack Take 1 tablet by mouth as directed. As directed on package - traMADol (ULTRAM) 50 mg tablet Take 50 mg by mouth twice daily as needed. Currently not taking while on [place] for pain - amLODIPine (NORVASC) 5 mg [...] Status:Closed by ROSA GREENBERG RN on 05/19/22 [facility] Lucy 05-02-2022 CNOV Office Visit (ORMDNA ) -------- JUDY REAGAN ([id number]) 1960 F Date Time Provider Department 05/02/22 [...] which included preparing to see the patient, [id number] patient care, completing clinical documentation, obtaining and/or reviewing separately obtained history, performing a medically appropriate examination, counseling and educating the patient/family/caregiver , ordering medications, tests, or procedures, communicating with other HCPs (not separately reported), independently interpreting results (not separately reported), communicating results to the patient/family/caregiver , and care coordination (not separately reported). Jesus Alberto Harris APRN.[facility] Orthopaedic Surgery Referring Provider: CHRISTIAN DUNNE [[id number]] Allergies As of Date: 05/02/2022 Noted Allergy Reaction ADHESIVE TAPE (ROSINS) 06/06/2016 2 - Rash BEE STING 09/02/2019 7 - Swelling Date Reviewed: 05/02/2022 Reviewed by: Jesus Alberto Harris APRN.[facility] - Fully Assessed Reason for Visit: New [484364] Cmt: L Partial Knee 2013 Knee Pain [132] Cmt: L Partial Knee 2013 New [[id number]] Cmt: R TKA 2010 Knee Pain [132] Cmt: R TKA 2010 Primary Visit Diagnosis: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, initial encounter ([facility]) [T84.84XA, Z96.651] Other Visit Diagnosis:Pain due to total left knee replacement, initial encounter ([facility]) [T84.84XA, Z96.652] Order(s):CONSULT TO PHYSICAL THERAPY [9032] Order #: [id number]: 1 FUTURE HINGED KNEE BRACE [[id number]] Order #: [id number] methylPREDNISolone (MEDROL, AMIRA,) 4 mg Dose-PackTake 1 tablet by mouth as directed. As directed on packageDisp: 21 tabletRfl: 0 Prescriptions as of 05/02/2022 - methylPREDNISolone (MEDROL, AMIRA,) 4 mg Dose-Pack Take 1 tablet by mouth as directed. As directed on package - traMADol (ULTRAM) 50 mg tablet Take 50 mg by mouth twice daily as needed. Currently not taking while on [place] for pain - amLODIPine (NORVASC) 5 mg tablet Take 5 mg by mouth once daily. - methotrexate 2.5 mg tablet (more content not included)... Normal [facility] XR KNEE 3V AP/LAT/MELIDA BILon 05-02-2022 [...] as discussed under Results portion of report. Manager Shipping: REBECCA Transcribe Date/Time: May 02 2022 9:42A Dictated by : HARIKA LYONS DO This examination was interpreted and the report reviewed and electronically signed by: HARIKA LYONS DO on May 02 2022 9:46AM EST [id number] [facility] XR KNEE POST OP 3V AP/LAT/ME RCHANT BILATERALon 05-02-2022 [facility] CNPNon 04-27-2022 CNPN Telephone (YENMDNA) -------- JUDY REAGAN ([id number]) 1960 F Date Time Provider Department 04/27/22 JESUS ALBERTO HARRIS During your visit today, we recorded the following information about you: Kitty Bansal 04/27/2022 10:16 AM Signed Provider out on 05/05/22, left VM AND sent [employer] message. Ok to r/s to 05/03/22. Please [...] as needed. Currently not taking while on [place] for pain - amLODIPine (NORVASC) 5 mg [...] Encounter Status:[facility] by [facility] JUDY REAGAN ([id number]) 1960 F Date Time Provider Department 04/25/22 CHRISTIAN DUNNE During your visit today, we recorded the following information about you: Mavis Drew WHITTEN 04/25/2022 2:43 PM Signed Patient called. Verified name and date of . Patient has appointment scheduled for May 02, 2022 with X-Rays to be done prior to appointment with Dr. Dunne to discuss Right knee which has had a total knee replacement done. Patient reports having increased pain in left knee which has had a partial replacement done at [facility] several years ago. She is concerned [...] reschedule her appointment to appropriate provider. Yessenia Leyvaown 04/25/2022 4:37 PM Signed Patient is scheduled Allergies As of Date: 04/25/2022 Noted Allergy Reaction ADHESIVE TAPE (ROSINS) 06/06/2016 2 - Rash BEE STING 09/02/2019 7 - Swelling Date Reviewed: 08/31/2021 Reviewed by: Yue Cooney RN - Fully Assessed Reason for Visit: Patient Question [7707] Prescriptions as of 04/25/2022 - traMADol (ULTRAM) 50 mg tablet Take 50 mg by mouth twice daily as needed. Currently not taking while on [place] for pain - amLODIPine (NORVASC) 5 mg [...] by PADMINI KRUEGER MA on 04/25/22 Normal [facility] Basophil percentageon 2021 Chloride [Moles/Vol] 97 mmol/L 98-107 [facility] Work Phone: Glucose [Mass/Vol] 104 mg/dL 74-106 [facility] Work Phone: Comment on above: Fasting Glucose resu lt from 100 to 125 mg/dL suggests IMPAIRED HOMEOSTASIS per A.D.A. criteria. Potassium [Moles/Vol] 4.3 mmol/L 3.5-5.1 [facility] Work Phone: Sodium [Moles/Vol] 135 mmol/L 136-145 [facility] Work Phone: Laboratory - Chemistry and C hemistry - challengeon 12-22-2021 CO2 [Moles/Vol] 32.0 mmol/L 21.0-32.0 [facility] Work Phone: Urea nitrogen/Creatinine [Mass ratio] 20.5 mg/mg 10-20 [facility] Work Phone: No Panel Informationon 12-22 Estimated Creatinine Clearance Calc 67.06 ml/min [facility] Work Phone: Estimated GFR (MDRD) Amer 97 mL/min >60 [facility] Work Phone: Comment on above: GFR Calc Estimated GFR (MDRD) Non-Af Amer 80 mL/min >60 [facility] Work Phone: Comment on above: Non- GFR Calc Serum or plasma calcium elis urement (mass/volume)on 12-22-2021 Calcium [Mass/Vol] 9.7 mg/dL 8.5-10.1 [facility] Work Phone: Serum or plasma creatinine m easurement (mass/volume)on 12-22-2021 Creatinine [Mass/Vol] 0.78 mg/dL 0.55-1.02 [facility] Work Phone: Comment on above: The validity of the calculated GFR & GFRAA in patients over 70 years has not been determined. Clinical correlation is essential. Serum or plasma urea nitroge n measurement (mass/volume)on 12-22-2021 Urea nitrogen [Mass/Vol] 16 mg/dL 7-18 [facility] Work Phone: [phone] Thin prep Papanicolaou smear with manual screeningon 12-22-2021 Thin prep Papanicolaou smear with manual screening 6 5-15 [facility] Work Phone: [phone] Absolute lymphocyte counton 10-18-2021 Lymphocytes Auto (Unsp spec) [#/Vol] 1.62 10*3/uL 0.83-4.51 [facility] Work Phone: [phone] Basophil percentageon 2021 Basophils/100 WBC (Bld) 0.8 % 0-1 [facility] Work Phone: [phone] Bilirubin [Mass/Vol] 0.40 mg/dL 0.20-1.00 [facility] Work Phone: [phone] Comment on above: For patients on eltr ombopag therapy, use of Dimension [place] TBIL is not recommended. Chloride [Moles/Vol] 102 mmol/L 98-107 [facility] Work Phone: [phone] Eosinophils/100 WBC (Bld) 1.5 % 0-5 [facility] Work Phone: [phone] Glucose [Mass/Vol] 112 mg/dL 74-106 [facility] Work Phone: [phone] Comment on above: Fasting Glucose resu lt from 100 to 125 mg/dL suggests IMPAIRED HOMEOSTASIS per A.D.A. criteria. Neutrophils (Bld) [#/Vol] 3.9 10*3/uL 2.0-7.7 [facility] Work Phone: [phone] Neutrophils/100 WBC (Bld) 63.2 % 47-70 [facility] Work Phone: [phone] Potassium [Moles/Vol] 3.8 mmol/L 3.5-5.1 [facility] Work Phone: [phone] Protein [Mass/Vol] 8.3 g/dL 6.4-8.2 [facility] Work Phone: [phone] Sodium [Moles/Vol] 135 mmol/L 136-145 [facility] Work Phone: WBC (Bld) [#/Vol] 6.1 10*3/uL 4.4-11.0 [facility] Work Phone: Blood erythrocytes count (nu mber/volume)on 10-18-2021 RBC (Bld) [#/Vol] 4.58 10*6/uL 4.2-5.4 [facility] Work Phone: Blood hemoglobin measurement (mass/volume)on 10-18-2021 Hemoglobin (Bld) [Mass/Vol] 14.0 g/dL 12.0-15.0 [facility] Work Phone: Blood lymphocytes/100 leukoc yteson 10-18-2021 Lymphocytes/100 WBC (Bld) 26.5 % 19-41 [facility] Work Phone: Blood monocytes/100 leukocyt eson 10-18-2021 Monocytes/100 WBC (Bld) 7.5 % 0-10 [facility] Work Phone: Blood platelet mean volumeon 10-18-2021 Platelet mean volume (Bld) [Entitic vol] 10.6 fL 6.2-12.0 [facility] Work Phone: [phone] Determination of erythrocyte mean corpuscular volume (MCV)on 10-18-2021 MCV (RBC) [Entitic vol] 93.9 fL 81-99 [facility] Work Phone: Hematocrit Auto (Bld) [Volum e fraction]on 10-18-2021 Hematocrit (Bld) [Volume fraction] 43.0 % 37-47 [facility] Work Phone: [phone] Laboratory - Chemistry and C hemistry - challengeon 10-18-2021 ALP [Catalytic activity/Vol] 106 U/L 45-117 [facility] Work Phone: ALT [Catalytic activity/Vol] 44 U/L 13-56 [facility] Work Phone: CO2 [Moles/Vol] 26.0 mmol/L 21.0-32.0 [facility] Work Phone: Globulin (S) [Mass/Vol] 4.5 g/dL 2.2-4.2 [facility] Work Phone: Urea nitrogen/Creatinine [Mass ratio] 19.6 mg/mg 10-20 [facility] Work Phone: Laboratory - Hematology and Cell countson 10-18-2021 Erythrocyte distribution width (RBC) [Entitic vol] 45.6 fL 35.1-43.9 [facility] Work Phone: Erythrocyte distribution width (RBC) [Ratio] 13.3 % 11.6-14.6 [facility] Work Phone: Immature granulocytes/100 WBC (Bld) 0.500 % 0.0-0.9 [facility] Work Phone: Comment on above: IG% - Immature Granu locytes (promyelocytes, myelocytes and metamyelocytes) > 1% indicates that a LEFT SHIFT is Present. MCH (RBC) [Entitic mass] 30.6 pg 27.0-32.0 [facility] Work Phone: Nucleated RBC/100 WBC (Bld) [Ratio] 0 % 0-5 [facility] Work Phone: MCHC Auto (RBC) [Mass/Vol]on 10-18-2021 MCHC (RBC) [Mass/Vol] 32.6 g/dL 32-36 [facility] Work Phone: No Panel Informationon 10-18 Estimated GFR (MDRD) Amer 99 mL/min >60 [facility] Work Phone: Comment on above: GFR Calc Estimated GFR (MDRD) Non-Af Amer 82 mL/min >60 [facility] Work Phone: Comment on above: Non- GFR Calc Platelets bldon 10-18-2021 Platelets (Bld) [#/Vol] 286 10*3/uL 150-450 [facility] Work Phone: Serum or plasma albumin elis urement (mass/volume)on 10-18-2021 Albumin [Mass/Vol] 3.8 g/dL 3.2-5.0 [facility] Work Phone: Serum or plasma albumin/glob ulin mass ratioon 10-18-2021 Albumin/Globulin [Mass ratio] 0.8 {ratio} 0.9-2.4 [facility] Work Phone: Serum or plasma calcium elis urement (mass/volume)on 10-18-2021 Calcium [Mass/Vol] 9.6 mg/dL 8.5-10.1 [facility] Work Phone: Serum or plasma creatinine m easurement (mass/volume)on 10-18-2021 Creatinine [Mass/Vol] 0.76 mg/dL 0.55-1.02 [facility] Work Phone: Comment on above: The validity of the calculated GFR & GFRAA in patients over 70 years has not been determined. Clinical correlation is essential. Serum or plasma urea nitroge n measurement (mass/volume)on 10-18-2021 Urea nitrogen [Mass/Vol] 15 mg/dL 7-18 [facility] Work Phone: Thin prep Papanicolaou smear with manual screeningon 10-18-2021 Thin prep Papanicolaou smear with manual screening 35 U/L 15-37 [facility] Work Phone: Thin prep Papanicolaou smear with manual screening 7 5-15 [facility] Work Phone: CNCNick 10-05-2021 CNCO Letter Text Normal [facility] CNPCristine 10-05-2021 YAMILKA Telephone (DIAMONDUHJOE ) -------- JUDY REAGAN ([id number]) 1960 F Date Time Provider Department 10/05/21 [...] as needed. Currently not taking while on Prospect for pain - amLODIPine (NORVASC) 5 mg [...] Encounter Status:Closed by VANE DAVIDSON on 10/05/21 [facility] 10-01-2021 YAMILKA Telephone ([employer]) -------- JUDY REAGAN ([id number]) 1960 F Date Time Provider Department 10/01/21 SAURAV MORTENSEN During your visit today, we recorded the following information about you: Saurav Mortensen MD 10/01/2021 7:54 AM Signed First visit 10/01/[address] Ho Rheum 2016 Dr. 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 Currently not taking while on Prospect for pain - amLODIPine (NORVASC) 5 mg [...] Encounter Status:Closed by SAURAV MORTENSEN on 10/04/21 [facility] Absolute lymphocyte counton 09-10-2021 Lymphocytes Auto (Unsp spec) [#/Vol] 1.60 10*3/uL 0.83-4.51 [facility] Work Phone: Basophil percentageon 2021 Basophils/100 WBC (Bld) 0.7 % 0-1 [facility] Work Phone: Bilirubin [Mass/Vol] 0.60 mg/dL 0.20-1.00 [facility] Work Phone: Comment on above: For patients on eltr ombopag therapy, use of Dimension [place] TBIL is not recommended. Chloride [Moles/Vol] 102 mmol/L 98-107 [facility] Work Phone: [phone] Eosinophils/100 WBC (Bld) 1.0 % 0-5 [facility] Work Phone: Glucose [Mass/Vol] 97 mg/dL 74-106 [facility] Work Phone: Neutrophils (Bld) [#/Vol] 4.9 10*3/uL 2.0-7.7 [facility] Work Phone: Neutrophils/100 WBC (Bld) 70.0 % 47-70 [facility] Work Phone: Potassium [Moles/Vol] 3.6 mmol/L 3.5-5.1 [facility] Work Phone: Protein [Mass/Vol] 7.9 g/dL 6.4-8.2 [facility] Work Phone: Sodium [Moles/Vol] 137 mmol/L 136-145 [facility] Work Phone: WBC (Bld) [#/Vol] 6.9 10*3/uL 4.4-11.0 [facility] Work Phone: Blood erythrocytes count (nu mber/volume)on 09-10-2021 RBC (Bld) [#/Vol] 4.39 10*6/uL 4.2-5.4 [facility] Work Phone: Blood hemoglobin measurement (mass/volume)on 09-10-2021 Hemoglobin (Bld) [Mass/Vol] 13.7 g/dL 12.0-15.0 [facility] Work Phone: Blood lymphocytes/100 leukoc yteson 09-10-2021 Lymphocytes/100 WBC (Bld) 23.1 % 19-41 [facility] Work Phone: Blood monocytes/100 leukocyt eson 09-10-2021 Monocytes/100 WBC (Bld) 4.9 % 0-10 [facility] Work Phone: Blood platelet mean volumeon 09-10-2021 Platelet mean volume (Bld) [Entitic vol] 9.8 fL 6.2-12.0 [facility] Work Phone: [phone] Determination of erythrocyte mean corpuscular volume (MCV)on 09-10-2021 MCV (RBC) [Entitic vol] 93.6 fL 81-99 [facility] Work Phone: [phone] Hematocrit Auto (Bld) [Volum e fraction]on 09-10-2021 Hematocrit (Bld) [Volume fraction] 41.1 % 37-47 [facility] Work Phone: [phone] Laboratory - Chemistry and C hemistry - challengeon 09-10-2021 ALP [Catalytic activity/Vol] 103 U/L 45-117 [facility] Work Phone: [phone] ALT [Catalytic activity/Vol] 48 U/L 13-56 [facility] Work Phone: CO2 [Moles/Vol] 28.0 mmol/L 21.0-32.0 [facility] Work Phone: [phone] Globulin (S) [Mass/Vol] 4.0 g/dL 2.2-4.2 [facility] Work Phone: [phone] Urea nitrogen/Creatinine [Mass ratio] 18.9 mg/mg 10-20 [facility] Work Phone: [phone] Laboratory - Hematology and Cell countson 09-10-2021 Erythrocyte distribution width (RBC) [Entitic vol] 44.5 fL 35.1-43.9 [facility] Work Phone: [phone] Erythrocyte distribution width (RBC) [Ratio] 12.9 % 11.6-14.6 [facility] Work Phone: [phone] Immature granulocytes/100 WBC (Bld) 0.300 % 0.0-0.9 [facility] Work Phone: [phone] Comment on above: IG% - Immature Granu locytes (promyelocytes, myelocytes and metamyelocytes) > 1% indicates that a LEFT SHIFT is Present. MCH (RBC) [Entitic mass] 31.2 pg 27.0-32.0 [facility] Work Phone: [phone] Nucleated RBC/100 WBC (Bld) [Ratio] 0 % 0-5 [facility] Work Phone: [phone] MCHC Auto (RBC) [Mass/Vol]on 09-10-2021 MCHC (RBC) [Mass/Vol] 33.3 g/dL 32-36 [facility] Work Phone: No Panel Informationon 09-10 Estimated GFR (MDRD) Amer 103 mL/min >60 [facility] Work Phone: Comment on above: GFR Calc Estimated GFR (MDRD) Non-Af Amer 85 mL/min >60 [facility] Work Phone: Comment on above: Non- GFR Calc Hepatitis C Antibody Non-Reactive Nonreactive [facility] Work Phone: Comment on above: Non Reactive: < 0.8 Equivocal: >/= 0.8 to < 1.0 Reactive: >/= 1.0The [facility] recommends that a reactive/equivocal HCV antibody result be followed up by the HCV Nucleic Acid Amplificationtest (686275) Thyroid Stimulating Hormone (TSH) 0.83 uIU/mL 0.358-3.74 [facility] Work Phone: Vitamin D 25-Hydroxy 59.8 ng/mL [facility] Work Phone: Comment on above: Vitamin D 25(OH) Sta tus Range Deficiency <20 ng/mL (50nmol/L) Insufficiency 20 - 30 ng/mL (50 - 75 nmol/L) Sufficiency 30 - 100 ng/mL (75 - 250 nmol/L) Toxicity >100 ng/mL (>250 nmol/L) Platelets bldon 09-10-2021 Platelets (Bld) [#/Vol] 370 10*3/uL 150-450 [facility] Work Phone: Serum or plasma albumin elis urement (mass/volume)on 09-10-2021 Albumin [Mass/Vol] 3.9 g/dL 3.2-5.0 [facility] Work Phone: Serum or plasma albumin/glob ulin mass ratioon 09-10-2021 Albumin/Globulin [Mass ratio] 1.0 {ratio} 0.9-2.4 [facility] Work Phone: Serum or plasma calcium elis urement (mass/volume)on 02-18-2022 Calcium [Mass/Vol] 9.1 mg/dL 8.5-10.1 [facility] Work Phone: Serum or plasma creatinine m easurement (mass/volume)on 09-10-2021 Creatinine [Mass/Vol] 0.74 mg/dL 0.55-1.02 [facility] Work Phone: Comment on above: The validity of the calculated GFR & GFRAA in patients over 70 years has not been determined. Clinical correlation is essential. Serum or plasma urea nitroge n measurement (mass/volume)on 09-10-2021 Urea nitrogen [Mass/Vol] 14 mg/dL - [facility] Work Phone: Thin prep Papanicolaou smear with manual screeningon 09-10-2021 Thin prep Papanicolaou smear with manual screening 35 U/L 15-37 [facility] Work Phone: Thin prep Papanicolaou smear with manual screening 7 5-15 [facility] Work Phone: CNOVon 08-31-2021 CNOV Office Visit (PODIWS ) -------- JUDY REAGAN ([id number]) 1960 F Date Time Provider Department 08/31/21 9:45 AM YUMIKO WELSH PODIWS During your visit today, [...] as needed. Currently not taking while on Prospect for pain - amLODIPine (NORVASC) 5 mg [...] to be (more content not included)... Normal [facility] HIV 1/2on 07-11-2019 HIV 1/O/2 QUAL NONREACTIVE Normal NONREACTIVE [facility] Comment on above: Result Comment: NONR EACTIVE: LESS THAN 1.0 INDEX VALUE THIS ASSAY DETECTS HIV p24 ANTIGEN AND ANTIBODIES TO HIV-1 AND HIV-2 BY THE [facility] CHIV ASSAY. Performed By: #### L 500.10593, L500.01548, L500.00625, L550.79083, L700.31948 #### [facility] [address] [place] [address] 64788 VITAMIN D2+D3on 07-08-2019 25 [place], VIT D 26 ng/mL Low () [facility] Comment on above: Result Comment: Refe rence Range: All Ages: Target levels 30 - 100 Performed By: #### L 500.45479, L500.27513, L500.00481, L550.00826, L700.00678 #### [facility] [address] [place], [place] [id number] 25 [place], VIT D-2 11 ng/mL Normal () [facility] Comment on above: Performed By: #### L 500.86830, L500.23657, L500.96601, L550.98811, L700.26803 #### [facility] [address] [place] [address] 25 [place], VIT D-3 15 ng/mL Normal () [facility] Comment on above: Result Comment: Perf ormed At: [employer] [address] [place] [id number] Francois Alvarado [place] [id number] Performed By: #### L 500.31084, L500.00440, L500.12473, L550.74222, L700.36983 #### [facility] [address] [place], [place] [id number] CCP-ABSon 07-06-2019 CCP-ABS 8 units Normal 0-19 [facility] Comment on above: Result Comment: Nega tive <20 Weak positive 20 - 39 Moderate positive 40 - 59 Strong positive >59 Performed At: [facility] [id number] Morris Mendoza MD [id number] Performed By: #### L 500.55414, L500.26321, L500.53810, L550.07253, L700.22508 #### [facility] [address] [place] [address] CBC W/DIFFon 07-04-2019 BASO ABS 0.10 K/CU MM Normal 0-0.2 [facility] Comment on above: Performed By: #### L 200.67313, L200.88283 #### [facility] [address] [place] [address] Basophils/100 WBC (Bld) 0.9 % Normal 0-2 [facility] Comment on above: Performed By: #### L 200.71207, L200.02295 #### [facility] [address] [place] [address] EOS ABS 0.10 K/CU MM Normal 0-0.5 [facility] Comment on above: Performed By: #### L 200.29076, L200.84469 #### [facility] [address] [place] [address] Eosinophils/100 WBC (Bld) 0.9 % Normal 0-5 [facility] Comment on above: Performed By: #### L 200.21756, L200.91586 #### [facility] [address] [place] [address] Erythrocyte distribution width (RBC) [Ratio] 12.8 % Normal 11-14.5 [facility] Comment on above: Performed By: #### L 200.29650, L200.42555 #### [facility] [address] [place] [address] Hematocrit (Bld) [Volume fraction] 41.9 % Normal 35.0-47.0 [facility] Comment on above: Performed By: #### L 200.85797, L200.73240 #### [facility] [address] [place] [address] Hemoglobin (Bld) [Mass/Vol] 14.3 g/dL Normal 11.5-15.5 [facility] Comment on above: Performed By: #### L 200.72142, L200.37917 #### [facility] [address] [place] [address] IMMATR GRAN ABS 0.00 K/CU MM Normal Less than 2 [facility] Comment on above: Performed By: #### L 200.14066, L200.58433 #### [facility] [address] [place] [address] IMMATURE GRAN % 0.3 % Normal Less than 2 [facility] Comment on above: Performed By: #### L 200.30810, L200.93340 #### [facility] [address] [place] [address] Lymphocytes (Bld) [#/Vol] 1.70 K/CU MM Normal 0.9-4.4 [facility] Comment on above: Performed By: #### L 200.70395, L200.76024 #### [facility] [address] [place] [address] Lymphocytes/100 WBC (Bld) 25.6 % Normal 20-40 [facility] Comment on above: Performed By: #### L 200.57146, L200.72663 #### [facility] [address] [place] [address] MCHC (RBC) [Mass/Vol] 34.1 g/dL Normal 32.0-36.0 [facility] Comment on above: Performed By: #### L 200.41682, L200.22539 #### [facility] [address] [place] [address] MCV (RBC) [Entitic vol] 94.2 fL Normal 80.0-99.0 M [facility] Comment on above: Performed By: #### L 200.81593, L200.08499 #### [facility] [address] [place] [address] MONO ABS 0.60 K/CU MM Normal 0.1-1.1 [facility] Comment on above: Performed By: #### L 200.51680, L200.25743 #### [facility] [address] [place] [address] Monocytes/100 WBC (Bld) 9.2 % Normal 2-10 M [facility] Comment on above: Performed By: #### L 200.93574, L200.65673 #### [facility] [address] [place] [address] NEUTROPHIL ABS 4.30 K/CU MM Normal 2.0-8.3 [facility] Comment on above: Performed By: #### L 200.67434, L200.06023 #### [facility] [address] [place] [address] Neutrophils/100 WBC (Bld) 63.1 % Normal 45-75 [facility] Comment on above: Performed By: #### L 200.12409, L200.24872 #### [facility] [address] [place] [address] Nucleated RBC/100 WBC (Bld) [Ratio] 0.0 % Normal Less than 1 [facility] Comment on above: Performed By: #### L 200.20984, L200.87573 #### [facility] [address] [place] [address] Platelet mean volume (Bld) [Entitic vol] 9.8 fL Normal 9.4-12.4 [facility] Comment on above: Performed By: #### L 200.09203, L200.58099 #### [facility] [address] [place] [address] Platelets (Bld) [#/Vol] 285 K/CU MM Normal 150-450 [facility] Comment on above: Performed By: #### L 200.20439, L200.65703 #### [facility] [address] [place] [address] 19465 RBC (Bld) [#/Vol] 4.45 M/CU MM Normal 3.90-5.30 [facility] Comment on above: Performed By: #### L 200.74938, L200.04731 #### [facility] [address] [place] [address] WBC (Bld) [#/Vol] 6.8 K/CUMM Normal 4.5-11.0 [facility] Comment on above: Performed By: #### L 200.75968, L200.87404 #### [facility] [address] [place] [address] CMPon 07-04-2019 Albumin [Mass/Vol] 4.4 g/dL Normal 3.2-5.0 [facility] Comment on above: Performed By: #### L 500.43432, L500.31865, L500.22744, L550.57925, L700.28312 #### [facility] [address] [place], [place] [address] Albumin/Globulin [Mass ratio] 1.3 {ratio} Normal 0.8-2.0 [facility] Comment on above: Performed By: #### L 500.72771, L500.70149, L500.21059, L550.41781, L700.01260 #### [facility] [address] [place] [address] 23784 ALK PHOS 102 U/L Normal 45-117 [facility] Comment on above: Performed By: #### L 500.79150, L500.22036, L500.03382, L550.45692, L700.43568 #### [facility] [address] [id number] ALT [Catalytic activity/Vol] 48 U/L Normal 13-61 [facility] Comment on above: Result Comment: RESU LTS MAY BE FALSELY DEPRESSED AFTER THE ADMINISTRATION OF SULFASALAZINE AND/OR SULFAPYRIDINE. Performed By: #### L 500.88744, L500.16711, L500.34769, L550.78816, L700.86744 #### [facility] [address] [place] [address] Anion gap [Moles/Vol] 10 mmol/L Normal 5-16 [facility] Comment on above: Performed By: #### L 500.57281, L500.60274, L500.57164, L550.10498, L700.75128 #### [facility] [address] [place] [address] BILI TOTAL 0.4 MG/DL Normal 0.2-1.0 [facility] Comment on above: Performed By: #### L 500.27895, L500.38445, L500.91469, L550.08899, L700.30807 #### [facility] [address] [place] [address] Calcium [Mass/Vol] 8.9 mg/dL Normal 8.5-10.1 [facility] Comment on above: Performed By: #### L 500.61283, L500.39740, L500.21175, L550.60779, L700.73523 #### [facility] [address] [place] [address] Chloride [Moles/Vol] 101 mmol/L Normal 98-107 [facility] Comment on above: Performed By: #### L 500.13788, L500.87831, L500.34564, L550.00912, L700.01785 #### [facility] [address] [place] [address] CO2 [Moles/Vol] 26 mmol/L Normal 21-32 [facility] Comment on above: Performed By: #### L 500.06870, L500.55633, L500.63961, L550.06910, L700.85350 #### [facility] [address] [place] [address] Creatinine [Mass/Vol] 0.739 mg/dL Normal 0.510-0.950 [facility] Comment on above: Result Comment: Xena ents receiving either N-Acetylcysteine (NAC) or Metamizole prior to venipuncture, may have falsely depressed results. Performed By: #### L 500.28281, L500.12789, L500.20366, L550.43285, L700.76167 #### [facility] [address] [place] [address] Globulin (S) [Mass/Vol] 3.3 g/dL Normal 2.2-4.2 [facility] Comment on above: Performed By: #### L 500.18362, L500.19611, L500.03927, L550.25785, L700.56388 #### [facility] [address] [place] [address] Glucose [Mass/Vol] 85 mg/dL Normal 70-100 [facility] Comment on above: Result Comment: 70-1 00- Normal Fasting; 100-125 Impaired Fasting; greater than 126 on more than one result- Diabetes. ADA guidelines. Results may be falsely elevated after the administration of Sulfapyridine. Results may be falsely depressed after the administration of Sulfasalazine. Performed By: #### L 500.55365, L500.75118, L500.38330, L550.83871, L700.87120 #### [facility] [address] [place] [address] Potassium [Moles/Vol] 3.8 mmol/L Normal 3.5-5.1 [facility] Comment on above: Performed By: #### L 500.60708, L500.33010, L500.29855, L550.09398, L700.74134 #### [facility] [address] [place] [address] Protein [Mass/Vol] 7.7 g/dL Normal 6.0-8.5 [facility] Comment on above: Performed By: #### L 500.63990, L500.16993, L500.63878, L550.27510, L700.35097 #### [facility] [address] [place] [address] SGOT (AST) 29 U/L Normal 8-34 [facility] Comment on above: Result Comment: RESU LTS MAY BE FALSELY DEPRESSED AFTER THE ADMINISTRATION OF SULFASALAZINE AND/OR SULFAPYRIDINE. Performed By: #### L 500.72067, L500.52129, L500.90145, L550.05539, L700.24515 #### [facility] [address] [place] [address] Sodium [Moles/Vol] 136 mmol/L Normal 136-145 [facility] Comment on above: Performed By: #### L 500.36239, L500.33143, L500.24351, L550.09899, L700.56380 #### [facility] [address] [place] [address] Urea nitrogen [Mass/Vol] 17 mg/dL Normal 7-26 [facility] Comment on above: Performed By: #### L 500.55968, L500.75834, L500.62583, L550.29882, L700.79010 #### [facility] [address] [place] [address] Urea nitrogen/Creatinine [Mass ratio] 23 mg/mg Normal 15-24 [facility] Comment on above: Performed By: #### L 500.06614, L500.06912, L500.16100, L550.51002, L700.44329 #### [facility] [address] [place] [address] CRPon 07-04-2019 CRP [Mass/Vol] 0.89 MG/DL High 0.00-0.32 [facility] Comment on above: Performed By: #### L 500.62157, L500.63327, L500.74827, L550.23834, L700.27839 #### [facility] [address] [place] [address] FOOT 2 VIEWS BILATERALon FOOT 2 VIEWS [...] or periosteal reaction. IMPRESSION: Mild left and [id number]-[place] right degenerative changes most consistent with osteoarthritis. No erosions are shown. ---- Electronic Signature on File ---- Signed By: Alejandra Chavez MD [email or web address] Dictated: 07/04/2019 1:01 PM Signed: 07/04/2019 1:10 PM Reported By: ALEJANDRA CHAVEZ M.D. Signed By: ALEJANDRA CHAVEZ M.D. Normal [facility] HUBER Lozada 07-04-2019 IF AMER Greater than 60 Normal [facility] Comment on above: Performed By: #### L 500.47112, L500.41469, L500.85276, L550.43352, L700.97620 #### [facility] [address] [place] [address]# [phone] IF non-AFR AMER Greater than 60 [facility] Comment on above: Performed By: #### L 500.38906, L500.03373, L500.54022, L550.03465, L700.99507 #### [facility] [address] [place] [address] # [phone] HAND 2 VIEWS BILATERALon HAND 2 VIEWS [...] or periosteal reaction. IMPRESSION: Mild left and sezr-bd-jtwomljn right degenerative changes most consistent with osteoarthritis. No erosions are shown. ---- Electronic Signature on File ---- Signed By: Alejandra Chavez MD [email or web address] Dictated: 07/04/2019 1:01 PM Signed: 07/04/2019 1:10 PM Reported By: ALEJANDRA CHAVEZ M.D. Signed By: ALEJANDRA CHAVEZ M.D. Normal [facility] HBCABon 07-04-2019 HBCAB NONREACTIVE Normal NONREACTIVE [facility] Comment on above: Result Comment: RESU LTS WERE OBTAINED WITH THE CENTAUR XP ANTI-HCB ASSAY. VALUES OBTAINED WITH DIFFERENT MANUFACTURERS' ASSAY METHODS MAY NOT BE USED INTERCHANGEABLY. Performed By: #### L 540.37541, L540.67004, L540.75275, L540.51768 #### [facility] [address] [place] [address]# [phone] HBSAGon 07-04-2019 HBSAG NONREACTIVE Normal NONREACTIVE [facility] Comment on above: Result Comment: RESU LTS WERE OBTAINED WITH THE CENTAUR XP. VALUES OBTAINED WITH DIFFERENT MANUFACTURERS' ASSAY METHODS MAY NOT BE USED INTERCHANGEABLY. Performed By: #### L 540.05817, L540.60925, L540.07178, L540.95433 #### [facility] [address] [place] [address] HEP B AB QUANTon 07-04-2019 HEP B AB QUANT 31.50 mIU/mL High 0.00-9.99 [facility] Comment on above: Result Comment: STAT US OF IMMUNITY Protective Immunity: greater than or equal to 10 mIU/mL (Traceable to WHO International Reference Preparation) No Protective Immuniity: less than 10 mIU/mL Note: The magnitude of the measured result above the cutoff is not indicative of the total amount of antibody present. Performed By: #### L 540.16290, L540.03605, L540.48995, L540.95699 #### [facility] [address] [place], [place] [id number] HEPATITIS C ABon 07-04-2019 HCV AB NONREACTIVE Normal NONREACTIVE [facility] Comment on above: Result Comment: SCRE ENING TEST NEGATIVE NONREACTIVE HCV ANTIBODY SCREEN IS CONSISTENT WITH NO HCV INFECTION, UNLESS RECENT INFECTION IS SUSPECTED OR OTHER EVIDENCE EXISTS TO INDICATE HCV INFECTION Performed By: #### L 500.38823, L500.23366, L500.75192, L550.95500, L700.35858 #### [facility] [address] [place] [address] KNEES 3 VIEWS BILATERALon KNEES 3 VIEWS [...] or periosteal reaction. IMPRESSION: Mild left and qhtb-la-nbxwuowq right degenerative changes most consistent with osteoarthritis. No erosions are shown. ---- Electronic Signature on File ---- Signed By: Alejandra Chavez MD [email or web address] Dictated: 07/04/2019 1:01 PM Signed: 07/04/2019 1:10 PM Reported By: ALEJANDRA CHAVEZ M.D. Signed By: ALEJANDRA CHAVEZ M.D. [facility] LUMBAR SPINE 2 OR 3 VWSon LUMBAR [...] or periosteal reaction. IMPRESSION: Mild left and bfif-ll-uxfdnfrl right degenerative changes most consistent with osteoarthritis. No erosions are shown. ---- Electronic Signature on File ---- Signed By: Alejandra Chavez MD [email or web address] Dictated: 07/04/2019 1:01 PM Signed: 07/04/2019 1:10 PM Reported By: ALEJANDRA CHAVEZ M.D. Signed By: ALEJANDRA CHAVEZ M.D. Normal [facility] RA FACTOR QUANTon 07-04-2019 RA FACTOR QUANT LESS THAN 10 Normal Less than 15. [facility] Comment on above: Performed By: #### L 500.87575, L500.17541, L500.84584, L550.36524, L700.67916 #### [facility] [address] [place] [address]# [phone] SACROILIAC JOINTS 3 OR MORE VWon 07-04-2019 [...] or periosteal reaction. IMPRESSION: Mild left and ezbl-tu-wwdvfrev right degenerative changes most consistent with osteoarthritis. No erosions are shown. ---- Electronic Signature on File ---- Signed By: Alejandra Chavez MD [email or web address] Dictated: 07/04/2019 1:01 PM Signed: 07/04/2019 1:10 PM Reported By: ALEJANDRA CHAVEZ M.D. Signed By: ALEJANDRA CHAVEZ M.D. Normal [facility] URIC ACIDon 07-04-2019 Urate [Mass/Vol] 8.3 mg/dL High 2.6-6.0 [facility] Comment on above: Result Comment: [place] ents receiving Metamizole prior to venipuncture, may have falsely depressed results. Performed By: #### L 500.20808, L500.10880, L500.17885, L550.21117, L700.96399 #### [facility] [address] [place] [address] WSR/MODon 07-04-2019 WSR/MOD 4 MM/HR Normal 0-30 [facility] Comment on above: Performed By: #### L 200.76002, L200.05089 #### [facility] [address] [place] [address] PROGRESSon 08-07-2017 PROGRESS HNO ID: [id number]: Bianca Olivier (Rt)e: RadiologyAuthor Type: TechnicianType: Progress NotesFiled: 08/07/2017 11:07 AMNote Text: Radiology Service Progress NotePATIENT NAME: Judy TaverassMRN: [id number] OF SERVICE: August 07, 2017TIME: 11:06 AMPATIENT IDENTITY VERIFICATION COMPLETED USING TWO (2) METHODS: Patientconfirmed name verbally and ID band matches. and Patient confirmed nameverbally.PATIENT GENDER DATA: Female. status: : NoBreastfeeding status: NO.PATIENT RELEVANT IMPLANT DATA REVIEWED: YesRADIOLOGY DEPARTMENT: General X-ray: Exam(s) Completed: Chest X-RayPelvis X-Ray: sacroiliac jointsUpper Extremity X-Ray(s): Hand, bilateral :PERIPHERAL IV DATA: Not applicableSIGNED BY: RT CharlineJuluary 2017 11:06 AM Normal [facility] XR CHEST 2V FRONTAL/LATon XR CHEST 2V [...] SALINAS MD on Aug 07 2017 11:37AM [id number] N [facility] XR HAND 3V PA/LAT/OBL LTon 0 08-07-2017 [...] LEFT HAND PAIN AND JOINT SWELLING (accession [id number]), RIGHT HAND PAIN, AND JOINT SWELLING X 2 MONTHS, FALL X1 WEEK AGO LANDING ON RIGHT WRIST AREA (accession [id number]), LOWER BACK PAIN, NO KNOWN INJURIES (accession [id number]) Pain in right hand Pain in left hand Effusion, unspecified joint Disorder of the skin and subcutaneous tissue, unspecified.TECHNIQUE: XR HAND 3V PA/LAT/OBL LT, XR HAND 3V PA/LAT/OBL RT, XR SI JTS 2V AP PELV/TAYLOR Laterality: NOT APPLICABLE (accession [id number]), RIGHT (accession [id number]), NOT APPLICABLE (accession [id number]) Number of different views (projections): 2 (accession [id number]), 3 (accession [id number]), 2 (accession [id number]) M: XB_1COMPARISON: NoneRESULT:Sacroiliac joints. Bilaterally the joints [...] thumb bases and IP joints of the thumbs.Manager Shipping: REBECCA Transcribe Date/Time: Aug 07 2017 12:56PDictated by : RENAN ARMAS MDThis examination was interpreted and the report reviewed and electronically signed by: RENAN ARMAS MD on Aug 07 2017 1:00PM [id number] N [facility] XR HAND 3V PA/LAT/OBL RTon 0 08-07-2017 [...] LEFT HAND PAIN AND JOINT SWELLING (accession [id number]), RIGHT HAND PAIN, AND JOINT SWELLING X 2 MONTHS, FALL X1 WEEK AGO LANDING ON RIGHT WRIST AREA (accession [id number]), LOWER BACK PAIN, NO KNOWN INJURIES (accession [id number]) Pain in right hand Pain in left hand Effusion, unspecified joint Disorder of the skin and subcutaneous tissue, unspecified.TECHNIQUE: XR HAND 3V PA/LAT/OBL LT, XR HAND 3V PA/LAT/OBL RT, XR SI JTS 2V AP PELV/TAYLOR Laterality: NOT APPLICABLE (accession [id number]), RIGHT (accession [id number]), NOT APPLICABLE (accession [id number]) Number of different views (projections): 2 (accession [id number]), 3 (accession [id number]), 2 (accession [id number]) M: XB_1COMPARISON: NoneRESULT:Sacroiliac joints. Bilaterally the joints [...] thumb bases and IP joints of the thumbs.Manager Shipping: REBECCA Transcribe Date/Time: Aug 07 2017 12:56PDictated by : RENAN ARMAS MDThis examination was interpreted and the report reviewed and electronically signed by: RENAN ARMAS MD on Aug 07 2017 1:00PM [id number] N [facility] XR SI JTS 2V AP PELV/FERGUSO Non [...] LEFT HAND PAIN AND JOINT SWELLING (accession [id number]), RIGHT HAND PAIN, AND JOINT SWELLING X 2 MONTHS, FALL X1 WEEK AGO LANDING ON RIGHT WRIST AREA (accession [id number]), LOWER BACK PAIN, NO KNOWN INJURIES (accession [id number]) Pain in right hand Pain in left hand Effusion, unspecified joint Disorder of the skin and subcutaneous tissue, unspecified.TECHNIQUE: XR HAND 3V PA/LAT/OBL LT, XR HAND 3V PA/LAT/OBL RT, XR SI JTS 2V AP PELV/TAYLOR Laterality: NOT APPLICABLE (accession [id number]), RIGHT (accession [id number]), NOT APPLICABLE (accession [id number]) Number of different views (projections): 2 (accession [id number]), 3 (accession [id number]), 2 (accession [id number]) M: XB_1COMPARISON: NoneRESULT:Sacroiliac joints. Bilaterally the joints [...] thumb bases and IP joints of the thumbs.Manager Shipping: REBECCA Transcribe Date/Time: Aug 07 2017 12:56PDictated by : RENAN ARMAS MDThis examination was interpreted and the report reviewed and electronically signed by: RENAN ARMAS MD on Aug 07 2017 1:00PM [id number] Normal [facility] Outside Radiology Readon Outside Radiology Read This is a prelimi nary report only. This report will be final only after practitioner review and authentication has occurred.NAME: TRINA REAGAN#: [id number] OF STUDY: 06/14/2017RADIOLOGYREASO N FOR X-RAY: Right knee pain.X-rays obtained weightbearing [...] patellofemoral replacement seen on the left. EUNICE PENNINGTON/JACQUI/[id number] [id number]: 06/14/2017 12:34:39 [facility] PT NAME: TRINA REAGAN#: [id number] [place] [address] ACCT: [id number]: 62DOWNTIME RADIOLGY REPORT ADM DATE: Normal [facility] Vital Signs Date Time Vital Sign Value Performing Clinician Faci lity 03-25-2025 18:16-0400 Body temperature 99.2 [degF] Dr. Hernandez Mosley MD Work Phone: [facility] 03-25-2025 18:16-0400 Diastolic blood pressure 96 mm[Hg] Dr. Hernandez Mosley MD Work Phone: [facility] 03-25-2025 18:16-0400 Heart rate 97 /min Dr. Hernandez Mosley MD Work Phone: [facility] 03-25-2025 18:16-0400 Respiratory rate 15 /min Dr. Hernandez Mosley MD Work Phone: [facility] 03-25-2025 18:16-0400 SaO2% (BldA) [Mass fraction] 94 % Dr. Hernandez Mosley MD Work Phone: [facility] 03-25-2025 18:16-0400 Systolic blood pressure 117 mm[Hg] Dr. Hernandez Mosley MD Work Phone: [facility] 03-25-2025 15:08-0400 Diastolic blood pressure 91 mm[Hg] Dr. Hernandez Mosley MD Work Phone: [facility] 03-25-2025 15:08-0400 Heart rate 85 /min Dr. Hernandez Mosley MD Work Phone: [facility] 03-25-2025 15:08-0400 Respiratory rate 18 /min Dr. Hernandez Mosley MD Work Phone: 6(243)462-413784 [place] [address] 03-25-2025 15:08-0400 SaO2% (BldA) [Mass fraction] 99 % Dr. Hernandez Mosley MD Work Phone: 4(746)166-050884 [place] [address] 03-25-2025 15:08-0400 Systolic blood pressure 151 mm[Hg] Dr. Hernandez Mosley MD Work Phone: 9(253)360-639484 [place] [address] 03-25-2025 15:02-0400 Body mass index (BMI) [Ratio] 28.4 kg/m2 Dr. Hernandez Mosley MD Work Phone: 9(726)232-631584 [place] [address] 03-25-2025 15:02-0400 Body weight 75.[address] Hernandez Mosley MD Work Phone: 3(344)225-213283 [address] 03-25-2025 14:09-0400 Body height 162.[address] Hernandez Mosley MD Work Phone: 0(803)315-841782 [place] [address] 03-25-2025 14:09-0400 Body temperature 99.9 [degF] Dr. Hernandez Mosley MD Work Phone: 6(136)642-240584 [place] [address] 03-10-2025 09:05-0400 Body temperature 97 [degF] Dr. Hernandez Mosley MD Work Phone: [facility] 03-10-2025 09:05-0400 Diastolic blood pressure 74 mm[Hg] Dr. Hernandez Mosley MD Work Phone: [facility] 03-10-2025 09:05-0400 Heart rate 64 /min Dr. Hernandez Mosley MD Work Phone: [facility] 03-10-2025 09:05-0400 Respiratory rate 16 /min Dr. Hernandez Mosley MD Work Phone: 3(236)997-986284 [place] [address] 03-10-2025 09:05-0400 SaO2% (BldA) [Mass fraction] 96 % Dr. Hernandez Mosley MD Work Phone: 7(756)300-773784 [place] [address] 03-10-2025 09:05-0400 Systolic blood pressure 111 mm[Hg] Dr. Hernandez Mosley MD Work Phone: 4(760)969-427182 [place] [address] 03-10-2025 07:32-0400 Body height 162.[address] Hernandez Mosley MD Work Phone: 0(491)797-882282 [place] [address] 03-10-2025 07:32-0400 Body mass index (BMI) [Ratio] 28.8 kg/m2 Dr. Hernandez Mosley MD Work Phone: 5(268)333-829582 [place] [address] 03-10-2025 07:32-0400 Body weight [address] Hernandez Mosley MD Work Phone: 5(296)160-934282 [place] [address] 10-07-2024 12:20-0400 Body temperature 97.5 [degF] Dr. Hernandez Mosley MD Work Phone: 1(979)803-470382 [place] [address] 10-07-2024 12:20-0400 Diastolic blood pressure 91 mm[Hg] Dr. Hernandez Mosley MD Work Phone: 1(451)532-603282 [place] [address] 10-07-2024 12:20-0400 Heart rate 75 /min Dr. Hernandez Mosley MD Work Phone: 2(293)668-009582 [place] [address] 10-07-2024 12:20-0400 Respiratory rate 16 /min Dr. Hernandez Mosley MD Work Phone: 5(534)450-916182 [place] [address] 10-07-2024 12:20-0400 SaO2% (BldA) [Mass fraction] 100 % Dr. Hernandez Mosley MD Work Phone: 2(259)702-100982 [place] [address] 10-07-2024 12:20-0400 Systolic blood pressure 149 mm[Hg] Dr. Hernandez Mosley MD Work Phone: 3(284)643-271082 [place] [address] 10-07-2024 11:21-0400 Body height 162.[address] Hernandez Mosley MD Work Phone: [facility] 10-07-2024 11:21-0400 Body mass index (BMI) [Ratio] 28.3 kg/m2 Dr. Hernandez Mosley MD Work Phone: 7(820)737-908184 [place] [address] 10-07-2024 11:21-0400 Body weight [address] Hernandez Mosley MD Work Phone: 2(440)089-963582 [place] [address] 06-24-2024 09:37-0500 Body mass index (BMI) [Ratio] 28.1 kg/m2 Dr. Hernandez Mosley MD Work Phone: 0(201)584-253282 [place] [address] 06-24-2024 09:37-0500 Body temperature 98 [degF] Dr. Hernandez Mosley MD Work Phone: 9(932)996-532782 [place] [address] 06-24-2024 09:37-0500 Body weight 74.[address] Hernandez Mosley MD Work Phone: 5(677)258-317982 [place] [address] 06-24-2024 09:37-0500 Diastolic blood pressure 88 mm[Hg] Dr. Hernandez Mosley MD Work Phone: 0(180)656-935282 [place] [address] 06-24-2024 09:37-0500 Heart rate 97 /min Dr. Hernandez Mosley MD Work Phone: 4(034)005-289482 [place] [address] 06-24-2024 09:37-0500 Respiratory rate 16 /min Dr. Hernandez Mosley MD Work Phone: 0(689)601-317382 [place] [address] 06-24-2024 09:37-0500 SaO2% (BldA) [Mass fraction] 98 % Dr. Hernandez Mosley MD Work Phone: 1(958)817-322583 [address] 06-24-2024 09:37-0500 Systolic blood pressure 132 mm[Hg] Dr. Hernandez Mosley MD Work Phone: 6(350)872-792882 [place] [address] 11-14-2023 13:55-0400 Body temperature 97.4 [degF] Dr. Hernandez Mosley Work Phone: 7(757)397-327082 [place] [address] 11-14-2023 13:55-0400 Diastolic blood pressure 87 mm[Hg] Dr. Hernandez Mosley Work Phone: [facility] 11-14-2023 13:55-0400 Heart rate 80 /min Dr. Hernandez Mosley Work Phone: [facility] 11-14-2023 13:55-0400 Respiratory rate 16 /min Dr. Hernandez Mosley Work Phone: [facility] 11-14-2023 13:55-0400 SaO2% (BldA) [Mass fraction] 95 % Dr. Hernandez Mosley Work Phone: [facility] 11-14-2023 13:55-0400 Systolic blood pressure 120 mm[Hg] Dr. Hernandez Mosley Work Phone: 5(492)026-829684 [place] [address] 11-14-2023 12:05-0400 Body height 162.[address] Hernandez Mosley Work Phone: 4(995)818-289183 [address] 11-14-2023 12:05-0400 Body mass index (BMI) [Ratio] 28.3 kg/m2 Dr. Hernandez Mosley Work Phone: 4(672)655-351483 [address] 11-14-2023 12:05-0400 Body weight [address] Hernandez Mosley Work Phone: 3(616)628-151184 [place] [address] 10-18-2023 14:15-0400 Body height 162.[address] Hernandez Mosley Work Phone: 9(959)436-814083 [address] 10-18-2023 14:15-0400 Body mass index (BMI) [Ratio] 28.1 kg/m2 Dr. Hernandez Mosley Work Phone: [facility] 10-18-2023 14:15-0400 Body weight 74.[address] Hernandez Mosley Work Phone: 4(416)808-228184 [place] [address] 10-18-2023 14:15-0400 Diastolic blood pressure 69 mm[Hg] Dr. Hernandez Mosley Work Phone: 5(530)104-006684 [place] [address] 10-18-2023 14:15-0400 Heart rate 92 /min Dr. Hernandez Mosley Work Phone: 6(009)185-083984 [place] [address] 10-18-2023 14:15-0400 Respiratory rate 17 /min Dr. Hernandez Mosley Work Phone: [facility] 10-18-2023 14:15-0400 SaO2% (BldA) [Mass fraction] 95 % Dr. Hernandez Mosley Work Phone: [facility] 10-18-2023 14:15-0400 Systolic blood pressure 115 mm[Hg] Dr. Hernandez Mosley Work Phone: [facility] 09-26-2023 09:00-0500 Body temperature 97.8 [degF] Dr. Hernandez Mosley Work Phone: [facility] 09-26-2023 09:00-0500 Diastolic blood pressure 88 mm[Hg] Dr. Hernandez Mosley Work Phone: [facility] 09-26-2023 09:00-0500 Heart rate 84 /min Dr. Hernandez Mosley Work Phone: [facility] 09-26-2023 09:00-0500 Respiratory rate 18 /min Dr. Hernandez Mosley Work Phone: [facility] 09-26-2023 09:00-0500 SaO2% (BldA) [Mass fraction] 98 % Dr. Hernandez Mosley Work Phone: [facility] 09-26-2023 09:00-0500 Systolic blood pressure 152 mm[Hg] Dr. Hernandez Mosley Work Phone: [facility] 09-26-2023 03:13-0500 Body mass index (BMI) [Ratio] 27.9 kg/m2 Dr. Hernandez Mosley Work Phone: [facility] 09-26-2023 03:13-0500 Body weight 74.[address] Hernandez Mosley Work Phone: [facility] 09-25-2023 15:08-0500 Body height 162.[address] Hernandez Mosley Work Phone: [facility] 09-24-2023 04:45-0500 Body temperature 97.8 [degF] Dr. Hernandez Mosley Work Phone: [facility] 09-24-2023 04:45-0500 Diastolic blood pressure 97 mm[Hg] Dr. Hernandez Mosley Work Phone: [facility] 09-24-2023 04:45-0500 Heart rate 96 /min Dr. Hernandez Mosley Work Phone: [facility] 09-24-2023 04:45-0500 Respiratory rate 18 /min Dr. Hernandez Mosley Work Phone: [facility] 09-24-2023 04:45-0500 SaO2% (BldA) [Mass fraction] 99 % Dr. Hernandez Mosley Work Phone: [facility] 09-24-2023 04:45-0500 Systolic blood pressure 153 mm[Hg] Dr. Hernandez Mosley Work Phone: 2(811)129-793884 [place] [address] 09-24-2023 04:34-0500 Body height 162.[address] Hernandez Mosley Work Phone: [facility] 09-24-2023 04:34-0500 Body mass index (BMI) [Ratio] 28.3 kg/m2 Dr. Hernandez Mosley Work Phone: [facility] 09-24-2023 04:34-0500 Body weight [address] Hernandez Mosley Work Phone: [facility] 07-05-2023 09:42-0500 Body weight 75.[address] Hernandez Mosley Work Phone: [facility] 06-21-2023 18:09-0500 Body temperature 97.2 [degF] Dr. Hernandez Mosley Work Phone: [facility] 06-21-2023 18:09-0500 Diastolic blood pressure 96 mm[Hg] Dr. Hernandez Mosley Work Phone: [facility] 06-21-2023 18:09-0500 Heart rate 91 /min Dr. Hernandez Mosley Work Phone: [facility] 06-21-2023 18:09-0500 Respiratory rate 16 /min Dr. Hernandez Mosley Work Phone: [facility] 06-21-2023 18:09-0500 SaO2% (BldA) [Mass fraction] 94 % Dr. Hernandez Mosley Work Phone: [facility] 06-21-2023 18:09-0500 Systolic blood pressure 143 mm[Hg] Dr. Hernandez Mosley Work Phone: [facility] 06-21-2023 15:20-0500 Inhaled oxygen flow rate 4 L/min Dr. Hernandez Mosley Work Phone: [facility] 06-21-2023 09:45-0500 Body height 162.[address] Hernandez Mosley Work Phone: [facility] 06-21-2023 09:45-0500 Body mass index (BMI) [Ratio] 28 kg/m2 Dr. Hernandez Mosley Work Phone: [facility] 06-21-2023 09:45-0500 Body weight [address] Hernandez Mosley Work Phone: [facility] 04-22-2023 00:38-0400 Respiratory rate 116 /min Dr. Hernandez Mosley Work Phone: [facility] 04-21-2023 23:12-0400 Body height 162.[address] Hernandez Mosley Work Phone: [facility] 04-21-2023 23:12-0400 Body mass index (BMI) [Ratio] 29.4 kg/m2 Dr. Hernandez Mosley Work Phone: [facility] 04-21-2023 23:12-0400 Body temperature 96.7 [degF] Dr. Hernandez Mosley Work Phone: [facility] 04-21-2023 23:12-0400 Body weight 77.[address] Hernandez Mosley Work Phone: [facility] 04-21-2023 23:12-0400 Diastolic blood pressure 73 mm[Hg] Dr. Hernandez Mosley Work Phone: [facility] 04-21-2023 23:12-0400 Heart rate 70 /min Dr. Hernandez Moslye Work Phone: [facility] 04-21-2023 23:12-0400 SaO2% (BldA) [Mass fraction] 97 % Dr. Hernandez Mosley Work Phone: [facility] 04-21-2023 23:12-0400 Systolic blood pressure 115 mm[Hg] Dr. Hernandez Mosley Work Phone: [facility] 10-15-2022 14:12-0400 Body temperature 98.3 [degF] Dr. Hernandez Mosley Work Phone: [facility] 10-15-2022 14:12-0400 Diastolic blood pressure 79 mm[Hg] Dr. Hernandez Mosley Work Phone: [facility] 10-15-2022 14:12-0400 Heart rate 85 /min Dr. Hernandez Mosley Work Phone: [facility] 10-15-2022 14:12-0400 Respiratory rate 18 /min Dr. Hernandez Mosley Work Phone: [facility] 10-15-2022 14:12-0400 SaO2% (BldA) [Mass fraction] 98 % Dr. Hernandez Mosley Work Phone: [facility] 10-15-2022 14:12-0400 Systolic blood pressure 130 mm[Hg] Dr. Hernandez Mosley Work Phone: [facility] 10-14-2022 09:14-0400 Body height 162.[address] Hernandez Mosley Work Phone: [facility] 10-14-2022 09:14-0400 Body weight 72.[address] Hernandez Mosley Work Phone: [facility] 10-11-2022 20:21-0400 Inhaled oxygen flow rate 2 L/min Dr. Hernandez Mosley Work Phone: [facility] 10-11-2022 18:03-0400 Body mass index (BMI) [Ratio] 27.4 kg/m2 Dr. Hernandez Mosley Work Phone: [facility] 06-24-2022 10:35-0500 Body height 162.[address] Hernandez Mosley Work Phone: [facility] 12-22-2021 11:57-0400 Respiratory rate 16 /min [facility] Work Phone: 12-22-2021 10:20-0400 Diastolic blood pressure 97 mm[Hg] [facility] Work Phone: 12-22-2021 10:20-0400 Heart rate 113 /min [facility] Work Phone: 12-22-2021 10:20-0400 SaO2% (BldA) [Mass fraction] 97 % [facility] Work Phone: 12-22-2021 10:20-0400 Systolic blood pressure 159 mm[Hg] [facility] Work Phone: 12-22-2021 08:21-0400 Body height 162.56 cm [facility] Work Phone: 12-22-2021 08:21-0400 Body mass index (BMI) [Ratio] 28.4 kg/m2 [facility] Work Phone: 12-22-2021 08:21-0400 Body temperature 98.1 [degF] [facility] Work Phone: 12-22-2021 08:21-0400 Body weight 75.2 kg [facility] Work Phone: Encounters Encounter Date Encounter Type Care Provider Facility Start: 03-25-2025 Evaluation and management of inpatient Dr. Jennifer Dunne MD -Medical [facility] 3 Work Phone: Start: 03-25-2025 Emergency department patient visit Dr. Hernandez Mosley MD Work Phone: -Emergency Department Work Phone: Start: 03-18-2025 End: 03-18-2025 Patient encounter procedure Stanley Godwin DO [facility] G[facility] Work Phone: Start: 03-18-2025 End: 03-18-[address] Hernandez Mosley MD Work Phone: [facility] Start: 03-10-2025 End: 03-10-2025 Admission to same day surgery center Dr. Montana Quiñonez MD -Surgical Day Care Start: 03-10-2025 End: 03-10-[address] Hernandez Mosley MD Work Phone: -Surgical Day Care Start: 12-02-2024 End: 12-02-[address] Hernandez Mosley MD Work Phone: [facility] Work Phone: Start: 12-02-2024 End: 12-02-[address] Hernandez Mosley MD -Laboratory Work Phone: Start: 12-02-2024 End: 12-02-2024 ambulatory Hernandez [facility] Dimitri Facility:[facility] Start: 10-28-2024 End: 10-28-2024 Patient encounter procedure Stanley Godwin [facility] Gastroenterology Work Phone: Start: 10-28-2024 End: 10-28-[address] Hernandez Mosley MD Work Phone: [facility] Work Phone: Start: 10-28-2024 End: 10-28-2024 ambulatory Hernandez [facility] Dimitri Facility:[facility] Start: 10-07-2024 End: 10-07-2024 Admission to same day surgery center Dr. Montana Quiñonez MD -Surgical Day Care Start: 10-07-2024 End: 10-07-[address] Hernandez Mosley MD Work Phone: [facility] Work Phone: Start: 09-05-2024 ambulatory Hernandez Mosley Facility:[facility] Start: 08-12-2024 End: 08-12-2024 Patient encounter procedure Stanley Godwin DO -Cat Scan, [facility] Work Phone: Start: 08-12-2024 End: 08-12-2024 ambulatory [facility] Dimitri Facility:[facility] Start: 06-24-2024 End: 06-24-2024 Patient encounter procedure Gautam ROTH [facility] Work Phone: Start: 06-24-2024 End: 06-24-2024 ambulatory Gautam ROTH Facility:[facility] Start: 05-27-2024 End: 05-27-2024 ambulatory [facility] Dimitri Facility:[facility] Start: 05-24-2024 End: 05-24-2024 ambulatory [facility] Facility:[facility] Start: 05-22-2024 End: 05-22-2024 ambulatory [facility] Facility:[facility] Start: 05-03-2024 End: 05-03-2024 ambulatory Stanley Godwin Facility:[facility] Start: 05-03-2024 End: 05-03-2024 ambulatory Stanley Citlali Facility:[facility] Start: 04-19-2024 End: 04-19-2024 ambulatory Montana Quiñonez Facility:[facility] Start: 11-14-2023 Non-patient / Non-visit Dr. Hernandez Mosley Work Phone: [facility] Start: 11-14-2023 End: 11-14-2023 Admission to same day surgery center Dr. Hernandez Mosley Work Phone: [facility]-Endoscopy Work Phone: Start: 11-14-2023 End: 11-14-[address] Hernandez Mosley Work Phone: [facility] Work Phone: Start: 11-13-2023 End: 11-13-[address] Hernandez Mosley Work Phone: [facility] Work Phone: Start: 11-10-2023 End: 11-10-[address] Hernandez Mosley Work Phone: [facility] Work Phone: Start: 10-27-2023 End: 10-27-[address] Hernandez Mosley Work Phone: [facility] Work Phone: Start: 10-27-2023 End: 10-27-[address] Hernandez Mosley Work Phone: [facility] Work Phone: Start: 10-24-2023 End: 10-24-[address] Hernandez Mosley Work Phone: [facility] Work Phone: Start: 10-24-2023 End: 10-24-[address] Hernandez Mosley Work Phone: [facility] Work Phone: Start: 10-23-2023 End: 10-23-[address] Hernandez Mosley Work Phone: [facility] Work Phone: Start: 10-18-2023 End: 10-18-[address] Hernandez Mosley Work Phone: [facility] Work Phone: Start: 09-26-2023 Non-patient / Non-visit Dr. Hernandez Mosley Work Phone: [facility] Work Phone: Start: 09-25-2023 Non-patient / Non-visit Dr. Hernandez Mosely Work Phone: [facility] Work Phone: Start: 09-25-2023 Non-patient / Non-visit Dr. Hernandez Mosley Work Phone: [facility] Start: 09-24-2023 Non-patient / Non-visit Dr. Hernandez Mosley Work Phone: [facility] Start: 09-24-2023 Non-patient / Non-visit Dr. Hernandez Mosley Work Phone: [facility] Work Phone: Start: 09-24-2023 End: 09-26-2023 Evaluation and management of inpatient Dr. Hernandez Mosley Work Phone: [facility]-Progressive Care Unit Work Phone: Start: 09-21-2023 End: 09-21-[address] Hernandez Mosley Work Phone: [facility] Work Phone: Start: 09-21-2023 End: 09-21-[address] Hernandez Mosley Work Phone: [facility]-Laboratory Work Phone: Start: 09-18-2023 End: 09-18-[address] Hernandez Mosley Work Phone: [facility] Work Phone: Start: 09-18-2023 End: 09-18-[address] Hernandez Mosley Work Phone: [facility]-Laboratory, y Office [address] [place] [address] Start: 08-21-2023 End: 08-21-[address] Hernandez Mosley Work Phone: [facility] Work Phone: Start: 08-17-2023 End: 08-17-[address] Hernandez Mosley Work Phone: [facility] Work Phone: Start: 08-17-2023 End: 08-17-[address] Hernandez Mosley Work Phone: [facility]-Physical Therapy Work Phone: Start: 08-17-[address] Hernandez tovar Work Phone: [facility]-Physical Therapy Work Phone: Start: 08-04-2023 End: 08-04-[address] Hernandez Mosley Work Phone: [facility] Work Phone: Start: 07-07-[address] Hernandez tovar Work Phone: [facility]-Physical Therapy Work Phone: Start: 07-05-2023 End: 07-05-[address] Hernandez Mosley Work Phone: [facility] Work Phone: Start: 07-05-2023 End: 07-05-[address] Hernandez Mosley Work Phone: [facility]-Laboratory, Phy Office 3rd Flr Start: 07-05-2023 End: 07-05-[address] Hernandez Mosley Work Phone: [facility] Work Phone: Start: 06-21-2023 Non-patient / Non-visit Dr. Hernandez Mosley Work Phone: [facility] Start: 06-21-2023 End: 06-21-2023 Admission to same day surgery center Dr. Hernandez Mosley Work Phone: [facility]-Surgical Day Care Start: 06-21-2023 End: 06-21-[address] Hernandez Mosley Work Phone: [facility] Work Phone: Start: 06-19-2023 End: 06-19-2023 Non-patient / Non-visit Dr. Hernandez Mosley Work Phone: [facility] Work Phone: Start: 05-31-2023 End: 05-31-[address] Hernandez Mosley Work Phone: [facility] Work Phone: Start: 05-18-2023 End: 05-18-[address] Hernandez Mosley Work Phone: [facility] Work Phone: Start: 04-21-2023 End: 04-22-2023 Emergency department patient visit Dr. Hernandez Mosley Work Phone: [facility]-Emergency Department Work Phone: Start: 04-19-2023 End: 04-19-[address] Hernandez Mosley Work Phone: [facility] Work Phone: Start: 01-12-2023 End: 01-12-[address] Hernandez Mosley Work Phone: [facility] Work Phone: Start: 10-15-2022 Non-patient / Non-visit Dr. Hernandez Mosley Work Phone: [facility] Start: 10-14-2022 Non-patient / Non-visit Dr. Hernandez Moslye Work Phone: [facility] Start: 10-13-2022 Non-patient / Non-visit Dr. Hernandez Mosley Work Phone: [facility] Start: 10-13-2022 Non-patient / Non-visit Dr. Hernandez Mosley Work Phone: [facility] Start: 10-12-2022 Non-patient / Non-visit Dr. Hernandez Mosley Work Phone: [facility] Start: 10-11-2022 Non-patient / Non-visit Dr. Hernandez Mosley Work Phone: [facility] Start: 10-11-2022 Non-patient / Non-visit Dr. Hernandez Mosley Work Phone: [facility] Start: 10-11-2022 Non-patient / Non-visit Dr. Hernandez Mosley Work Phone: [facility] Start: 10-11-2022 End: 10-15-2022 Evaluation and management of inpatient [facility] Start: 10-10-2022 Non-patient / Non-visit Dr. Hernandez Mosley Work Phone: [facility] Start: 09-30-2022 End: 09-30-[address] Hernandez Mosley Work Phone: [facility] Start: 09-23-2022 End: 09-23-[address] Hernandez Mosley Work Phone: [facility] Work Phone: Start: 09-23-2022 End: 09-23-[address] Hernandez Mosley Work Phone: [facility]-Pulmonary Services/Neurology Start: 09-13-2022 End: 09-13-[address] Hernandez Mosley Work Phone: [facility] Work Phone: Start: 09-13-2022 End: 09-13-[address] Hernandez Mosley Work Phone: [facility]-Laboratory, Phy Office 3rd Flr Start: 09-07-2022 End: 09-07-[address] Hernandez Mosley Work Phone: [facility] Work Phone: Start: 09-07-2022 End: 09-07-[address] Hernandez Mosley Work Phone: [facility]-Outpatient Breast Imaging Start: 08-22-2022 Telephone encounter Uriel barr MD Work Phone: Pain Management Comment on above: Patient Question Start: 08-09-2022 End: 08-09-[address] Hernandez Mosley Work Phone: [facility] Work Phone: Start: 08-09-2022 End: 08-09-[address] Hernandez Mosley Work Phone: [facility]-Pre-Admission Testing Start: 08-04-2022 End: 08-04-[address] Hernandez Mosley Work Phone: [facility] Work Phone: Start: 08-04-2022 End: 08-04-[address] Hernandez Mosley Work Phone: [facility]-Laboratory, Phy Office 3rd Flr Start: 06-30-2022 End: 06-30-[address] Hernandez Mosley Work Phone: [facility] Start: 06-24-2022 End: 06-24-[address] Hernandez Mosley Work Phone: [facility] Start: 06-09-2022 End: 06-09-[address] [facility] Start: 06-06-2022 End: 06-06-2022 ambulatory KRIS BERNARDO Facility:[facility] Start: 05-30-2022 End: 05-30-2022 ambulatory YUMIKO WELSH [facility] Start: 05-19-2022 Telephone encounter Yumiko Henry Work Phone: Podiatry Comment on above: Schedule Surgery Start: 05-18-2022 End: 05-18-2022 ambulatory YUMIKO WELSH Facility:[facility] Start: 05-18-2022 End: 05-18-2022 Subsequent hospital visit by physician [facility] Kassi Mob Work Phone: Radiology Comment on above: Hallux limitus, acqu ired, unspecified laterality [M20.5X9] Start: 05-18-2022 End: 05-18-2022 Patient encounter procedure Yumiko Welsh Work Phone: Podiatry Comment on above: Hallux limitus, acqu ired, unspecified laterality (Primary Dx) Start: 05-04-2022 Telephone encounter Yumiko Henry Work Phone: Podiatry Comment on above: Patient Question (Ri ght Big toe) Start: 05-02-2022 End: 05-02-2022 ambulatory KRIS BERNARDO Facility:[facility] Start: 05-02-2022 End: 05-02-2022 Subsequent hospital visit by physician [facility] [place] Mob Work Phone: Radiology Comment on above: Pain in both knees, unspecified chronicity [M25.561, M25.562] Start: 04-27-2022 Telephone encounter Jesus Alberto fulton RETURN CLERK.ACADEMIC DEAN Work Phone: Orthopaedics Comment on above: appointment conflict Start: 04-26-2022 Orders Only Jesus Alberto Harris RETURN CLERK.ACADEMIC DEAN Work Phone: Orthopaedics Comment on above: Pain in both knees, unspecified chronicity (Primary Dx) Start: 04-25-2022 Telephone encounter Christian nova MD Work Phone: Orthopaedics Comment on above: Patient Question Start: 03-09-2022 End: 03-09-2022 Patient encounter procedure [facility]-Laboratory, Phy Office 3rd Flr Start: 12-22-2021 End: 12-22-2021 Emergency department patient visit [facility]-Emergency Department Start: 10-18-2021 End: 10-18-2021 Patient encounter procedure [facility]-Cat Scan, [facility] Start: 10-18-2021 End: 10-18-2021 Patient encounter procedure [facility]-Cat Scan, [facility] Start: 09-10-2021 End: 09-10-2021 Patient encounter procedure [facility]-Laboratory, Phy Office 3rd Flr Start: 08-31-2021 End: 08-31-2021 ambulatory YUMIKO WELSH Facility:[facility] Start: 07-14-2021 Patient encounter procedure [facility]-Outpatient Bone Densitometry Start: 08-08-2017 Ambulatory TRINIDAD KAY Facili ty:[id number] Start: 08-07-2017 Ambulatory [facility] Start: 06-14-2017 Ambulatory Sai Estrada Fac ility:[facility] Start: 06-14-2017 Ambulatory TRINIDAD KAY Facility :[id number] Procedures Date Procedure Procedure Detail Performing Clinician Start: 03-25-2025 Urnls dip stick/tablet reagent auto microscopy Dr. Hernandez Mosley MD Work Phone: Start: 03-25-2025 Computed tomography of abdomen and pelvis with intravenous contrast Dr. Hernandez Mosley MD Work Phone: Start: 03-25-[address] Hernandez tovar MD Work Phone: Start: 03-18-[address] Hernandez Mosley MD Work Phone: Comment on above: Test Ordered: [id number] Ustekinumab Drug + AntibodyUstekinumab 4.0 ug/mL ES Reference Range: .Quantitation Limit: <0.1 [...] Maintenance Study. Advances in AIBD. April 2017.3. Silver R, et al. Clin Gastroenterol Hepatol 2017;15: 0175-4494.4. Loreto SP, et al. Br J Dermatol;2015:173;855-857.5. Rashaun H, et al. PLOS ONE DOI;10:1371/journal.pone.5997632.6. Yue Mccarthy et al. Br J Dermatol 2014;170:261-273.These tests were developed and their performancecharacteristics determined by [employer]. They have not beencleared or approved by the Food and Drug Administration.However, both drug and anti-drug antibody assays have beendeveloped and validated in accordance with FDA Guidance forIndustry documents: Bioanalytical Method Validation (2013)and Assay Development and Validation for ImmunogenicityTesting of Therapeutic Protein Products (2016).Performed at: [facility] [address] [id number] Director: Michaela Pringle MD, Phone: [phone] at: [facility] [address] [id number] Director: Bhaskar Mane PhD, Phone: [phone] Start: 03-10-[address] Hernandez Mosley MD Work Phone: Start: 03-10-2025 X-ray of lumbar spine, two or three views Dr. Hernandez Mosley MD Work Phone: Start: 03-10-2025 End: 03-10-2025 Injection of spinal epidural space Dr. Kizzy Mosley MD Work Phone: Start: 10-07-2024 Local anesthetic sacral epidural block [...] Radex foot complete minimum 3 views Yumiko Anitha Work Phone: Start: 05-02-2022 Radiologic examination knee 3 views Jesus Alberto Harris APRN.CNP Work Phone: Start: 10-18-2021 Computed tomography of [...] Activity Detail Author Start: 08-16-2028 Colonoscopy COLONOSCOPY [facility] Start: 08-16-2028 COLORECTAL CANCER SCREENING COLORECTAL CANCER SCREENING [facility] Start: 03-25-2025 Verification routine [facility] Start: 03-25-2025 Admission procedure [facility] Start: 03-25-2025 Hospital admission, emergency, from emergency room, medical nature [facility] Start: 03-25-2025 Computed tomography of abdomen and pelvis with intravenous contrast Abdomen/Pelvis W IV Cont ONLY [facility] Start: 03-25-2025 CT Abdomen and Pelvi s W contrast IV [facility] Start: 03-10-2025 Injection of spinal epidural space [facility] Start: 03-10-2025 X-ray of lumbar spin e, two or three views Lumbar Spine 2 or 3 Views [facility] Start: 03-10-2025 Patient discharge [facility] Start: 10-07-2024 Njx dx/ther sbst int rlmnr lmbr/sac w/img gdn NJX INTERLAMINAR LMBR/SAC [facility] Start: 10-07-2024 Injection of spinal epidural space [facility] Start: 10-07-2024 Injection using fluoroscopic guidance [facility] Start: 10-07-2024 Patient discharge [facility] Start: 11-14-2023 Patient discharge [facility] Start: 10-23-2023 Patient referral [facility] Work Phone: Start: 09-27-2023 Blood chemistry [facility] Start: 09-26-2023 Patient discharge [facility] Start: 09-24-2023 Serum immunofixation [facility] Start: 09-24-2023 [facility] Start: 09-24-2023 [facility] Start: 09-24-2023 Referral to gastroenterology service [facility] Start: 09-24-2023 Thyroid stimulating hormone measurement [facility] Start: 09-24-2023 [facility] Start: 09-24-2023 Application of intermittent pneumatic compression device [facility] Start: 09-24-2023 Following clinical p athway protocol [facility] Start: 09-24-2023 Assessment of risk o f venous thromboembolism [facility] Start: 09-24-2023 Incentive spirometry [facility] Start: 09-24-2023 Inhalation therapy procedure [facility] Start: 09-24-2023 Insertion of cathete r into peripheral vein [facility] Start: 09-24-2023 Measuring intake and output [facility] Start: 09-24-2023 Oxygen therapy [facility] Start: 09-24-2023 Providing care accor ding to standard [facility] Start: 09-24-2023 Provision of activit y privileges [facility] Start: 09-24-2023 Referral to service [facility] Start: 09-24-2023 [facility] Start: 09-24-2023 Verification routine [facility] Start: 09-24-2023 Admission procedure [facility] Start: 09-21-2023 Procedure [facility] Start: 08-04-2023 Patient referral [facility] Work Phone: Start: 07-31-2023 DIABETES SCREEN DIABETES SCREEN [facility] Start: 07-31-2023 Diabetes Screening Diabetes Screenin g [facility] Start: 06-21-2023 Anes open proc upper ends tibia fibula&/patella ANESTH KNEE AREA SURGERY [facility] Start: 06-21-2023 Arthroplasty patella w/prosthesis REVISE KNEECAP WITH IMPLANT [facility] Start: 06-21-2023 Radiologic examinati on of knee Knee 1 or 2 Views [facility] Start: 06-21-2023 XR Knee 1 or 2 Views [facility] Start: 06-21-2023 Application of ice c ollar, cap or bag [facility] Start: 06-21-2023 Exercises [facility] Start: 06-21-2023 Incentive spirometry [facility] Start: 06-21-2023 Neurovascular assessment [facility] Start: 06-21-2023 Patient discharge [facility] Start: 06-21-2023 Patient education [facility] Start: 06-21-2023 Provision of activit y privileges [facility] Start: 06-21-2023 Recommendation to co ntinue with treatment [facility] Start: 06-21-2023 Referral to service [facility] Start: 06-21-2023 Vital signs measurements [facility] Start: 06-21-2023 Wound care [facility] Start: 06-21-2023 [facility] Start: 03-24-2023 Influenza vaccination Influenza Vacc ine (#1) [facility] Start: 10-15-2022 Patient discharge [facility] Start: 10-11-2022 Following clinical p athway protocol [facility] Start: 10-11-2022 Application of intermittent pneumatic compression device [facility] Start: 10-11-2022 Catheterization of vein [facility] Start: 10-11-2022 Consultation [facility] Start: 10-11-2022 Following clinical p athway protocol [facility] Start: 10-11-2022 Maintenance of drain age tube [facility] Start: 10-11-2022 Measuring intake and output [facility] Start: 10-11-2022 Neurovascular assessment [facility] Start: 10-11-2022 Oxygen therapy [facility] Start: 10-11-2022 Patient education [facility] Start: 10-11-2022 Procedure discontinued [facility] Start: 10-11-2022 Provision of activit y privileges [facility] Start: 10-11-2022 Recommendation to co ntinue with treatment [facility] Start: 10-11-2022 Referral to service [facility] Start: 10-11-2022 Taking patient vital signs [facility] Start: 10-11-2022 Admission procedure [facility] Start: 10-11-2022 [facility] Start: 09-10-2022 Pneumococcal vaccination Pneum ococcal Vaccine (3 - PCV) [facility] Start: 03-24-2022 Influenza vaccination INFLUENZA (#1) [facility] Start: 2022 RSV Vaccine (1 - 1-d ose 60+ series) RSV Vaccine (1 - 1-dose 60+ series) [facility] Start: 07-24-2021 DEPRESSION ASSESSMENT DEPRESSION ASS ESSMENT [facility] Start: 11-24-2020 COVID-19 VACCINE (3 - Pfizer risk series) COVID-19 VACCINE (3 - Pfizer risk series) [facility] Start: 05-26-2019 Lipid 1996 panel - S [place] or Plasma Lipid Screening [facility] Start: 05-26-2019 LIPID SCREEN LIPID SCREEN [facility] Start: 10-16-2017 Urine microalbumin profile [facility] Start: 06-08-2017 FECAL OCCULT BLOOD FECAL OCCULT BLOO D [facility] Start: 09-16-2016 Mammography [facility] Start: 12-09-2011 PNEUMOCOCCAL (2 - PCV) PNEUMOCOCCAL (2 - PCV) [facility] Start: 2007 COLOGUARD (FIT-DNA) COLOGUARD (FIT-D NA) [facility] Start: [address] COLONOGRAPHY [facility] Start: 2007 SIGMOIDOSCOPY SIGMOIDOSCOPY [facility] Start: 1981 SHINGRIX VACCINE (1 of 2) BOWER GRIX VACCINE (1 of 2) [facility] Start: 02-08-1980 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 MARIO DISEASE VISIT ANNUAL PCP TEAM CHRONIC DISEASE VISIT [facility] Start: 02-08-1980 BP CONTROLLED (<130/80) BP CONTROLLE D (<130/80) [facility] Start: 02-08-1980 HIV SCREENING HIV SCREENING [facility] Alanine aminotransfe rase [Enzymatic activity/volume] in Serum or Plasma [facility] Albumin [Mass/volume ] in Serum or Plasma [facility] Albumin [Moles/volum e] in Serum or Plasma [facility] Albumin/Globulin ratio [facility] Alkaline phosphatase [Enzymatic activity/volume] in Serum or Plasma [facility] Anion gap measurement [facility] Aspartate aminotrans ferase [Enzymatic activity/volume] in Serum or Plasma [facility] Beef IgE Ab [Units/v olume] in Serum [facility] Bilirubin measuremen t, urine [facility] Bilirubin, total measurement [facility] BUN/Creatinine ratio [facility] C reactive protein [Mass/volume] in Serum or Plasma [facility] Calcium [Mass/volume ] in Serum or Plasma [facility] Carbon dioxide, tota l [Moles/volume] in Serum or Plasma [facility] Chloride [Moles/volu me] in Serum or Plasma [facility] Chocolate IgE Ab [Units/volume] in Serum [facility] Codfish IgE Ab [Units/volume] in Serum [facility] Backus IgE Ab [Units/v olume] in Serum [facility] Cow milk IgE Ab [Units/volume] in Serum [facility] Creatinine [Moles/vo lume] in Serum or Plasma [facility] Electrophoresis: [id number] [facility] Electrophoresis: nestor ma globulin [facility] Erythrocyte mean corpuscular volume determination [facility] Erythrocyte sediment ation rate [facility] Gastrin [Mass/volume ] in Serum or Plasma [facility] Gliadin peptide IgA Ab [Units/volume] in Serum [facility] Gliadin peptide IgG Ab [Units/volume] in Serum [facility] Globulin measurement [facility] Glucose [Mass/volume ] in Serum or Plasma [facility] Hematocrit [Volume Fraction] of Blood [facility] Hemoglobin [Mass/vol ume] in Blood [facility] Hemoglobin [Presence ] in Urine [facility] IgA [Mass/volume] in Serum or Plasma [facility] IgG [Mass/volume] in Serum or Plasma [facility] IgG subclass 1 [Mass/volume] in Serum [facility] IgG subclass 2 [Mass/volume] in Serum [facility] IgG subclass 3 [Mass/volume] in Serum [facility] IgG subclass 4 [Mass/volume] in Serum [facility] IgM [Mass/volume] in Serum or Plasma [facility] Leukocytes [#/volume ] in Blood [facility] Magnesium [Mass/volu me] in Serum or Plasma [facility] Mean corpuscular hemoglobin concentration determination [facility] Mean corpuscular hemoglobin determination [facility] Measurement of immunoglobulin A in serum specimen [facility] Measurement of keton es in urine using dipstick [facility] Measurement of renal function [facility] Microscopic urinalysis [facility] Neutrophil count [facility] Neutrophil cytoplasm ic Ab.classic [Units/volume] in Serum [facility] Neutrophil percent differential count [facility] Organism count, microscopic method [facility] Ova and parasites identified in Unspecified specimen by Light microscopy [facility] P-ANCA measurement [facility] Patient Education [facility] Work Phone: Patient referral [facility] Work Phone: Peanut IgE Ab [Units/volume] in Serum [facility] pH of Urine [facility] Platelets [#/volume] in Blood [facility] Pork IgE Ab [Units/v olume] in Serum [facility] Potassium [Moles/vol ume] in Serum or Plasma [facility] Procedure [facility] Procedure [facility] Protein electrophore sis panel - Serum or Plasma [facility] Red blood cell count [facility] Red cell distributio n width determination [facility] [place] IgE Ab [Units/volume] in Serum [facility] Serum inorganic phos phate measurement [facility] Shrimp IgE Ab [Units/volume] in Serum [facility] Sodium [Moles/volume ] in Serum or Plasma [facility] Soybean IgE Ab [Units/volume] in Serum [facility] Specific gravity of Urine [facility] Tissue transglutamin ase IgA Ab [Units/volume] in Serum [facility] Total protein measurement [facility] Tuna IgE Ab [Units/v olume] in Serum [facility] Urea nitrogen [Mass/volume] in Serum or Plasma [facility] Urine dipstick for glucose [facility] Urine dipstick for leukocyte esterase [facility] Urine dipstick for nitrite [facility] Urine dipstick for protein [facility] Urine examination [facility] Urine microscopy: epithelial cells [facility] Urine microscopy: re d cells [facility] Urobilinogen [Presen ce] in Urine [facility] Wheat IgE Ab [Units/volume] in Serum [facility] White blood cell count [facility] Whole Egg IgE Ab [Units/volume] in Serum [facility] End: 06-17-2023 XR FOOT GENERAL 3V AP/LAT/OBL RIGHT XR FOOT GENERAL 3V AP/LAT/OBL RIGHT Radiology Routine Hallux limitus, acquired, unspecified laterality 1 Occurrences starting 05/18/2022 until 06/17/2023 [facility] Work Phone: Comment on above: 1 Occurrences starti ng 05/18/2022 until 06/17/2023 XR FOOT GENERAL 3V AP/LAT/OBL RIGHT XR FOOT GENERAL 3V AP/LAT/OBL RIGHT Radiology Routine Hallux limitus, acquired, unspecified laterality 05/18/2022 5:14 PM EDT [facility] Work Phone: End: 05-26-2023 XR KNEE POST OP 3V AP/LAT/MERCHANT BILATERAL XR KNEE POST OP 3V AP/LAT/MERCHANT BILATERAL Radiology Routine Pain in both knees, unspecified chronicity 1 Occurrences starting 04/27/2022 until 05/26/2023 [facility] Work Phone: Comment on above: 1 Occurrences starti ng 04/27/2022 until 05/26/2023 [facility] Immunizations Immunization Date Immunization Notes Care Provider Saeid taiwoallison 10-05-2020 COVID-19 original vaccine, age 12+ yr, monovalent (PFIZER-BIONTVisionnaire - PURPLE TOP) Christian Dunne MD Work Phone: [facility] 05-25-2020 influenza virus vacc ine, unspecified formulation [employer] Work Phone: [facility] 12-08-2010 pneumococcal polysaccharide vaccine, 23 valent Christian Dunne MD Work Phone: [facility] 10-17-2007 tetanus toxoid, redu louie diphtheria toxoid, and acellular pertussis vaccine, adsorbed Christian Dunne MD Work Phone: [facility] Work Phone: Payers Date Payer Category Payer Unknown [id number] 2024 Medicare [id number] 2021 Medicare [id number] 2021 Private Health Insurance [facility] [id number] 2017 Self-pay Private Health Insurance [facility] 18 [id number] Unknown [id number] Unknown [id number] Unknown [id number] 62 Unknown [id number] [id number] 62 Unknown [id number] [id number] 62 Unknown [id number] [id number] 62 Unknown [id number] 2.16.840.1.037975.3.579.2.4 62 Unknown [id number] 2.16.840.1.801062.3.579.2.4 62 Unknown [id number] 2.16.840.1.281513.3.579.2.4 62 Unknown [id number] 2.16.840.1.008444.3.579.2.4 62 Unknown [id number] 2.16.840.1.058822.3.579.2.4 62 Unknown [id number] 2.16.840.1.501340.3.579.2.4 62 Unknown [id number] 2.16.840.1.192554.3.579.2.4 62 Unknown [id number] 2.16.840.1.124677.3.579.2.4 62 Unknown [id number] 2.16.840.1.086331.3.579.2.4 62 Unknown [id number] 2.16.840.1.686481.3.579.2.4 62 Unknown [id number] 2.16.840.1.528082.3.579.2.4 62 Unknown [id number] 2.16.840.1.503266.3.579.2.4 62 Unknown [id number] 62 Social History Date Type Detail Facility Start: 01-16-2020 End: 07-05-2023 Tobacco smoking status [facility] Unknown if ever smoked [facility] Start: 06-21-2019 Rare [facility] Start: 06-21-2019 None [facility] Start: 06-21-2019 Spouse/ Signif icant Other [facility] Start: 1960 Sex Assigned At Female [facility] Start: 08-15-2018 End: 03-25-2025 Tobacco smoking status CAIS Ex-smoker [facility] End: 07-24-2016 History of tobacco use Current smoker [facility] End: 07-24-2016 History of tobacco use Cigarette Smoker [facility] Start: 08-15-2018 End: 06-28-2020 Cigarettes smoked current (pack per day) - Reported 0.5 [facility] Start: 08-15-2018 Tobacco use and exposure User of smokeless tobacco [facility] Start: 08-31-2021 End: 05-18-2022 Alcohol intake Current drinker of alcohol (finding) [facility] Start: 01-28-2021 History SDOH Alcohol Frequency 3 [facility] Start: 01-28-2021 History SDOH Alcohol Std Drinks 1 [facility] Start: 01-28-2021 History SDOH Social Connections Phone 5 [facility] Start: 01-28-2021 History SDOH Social Connections Get Together 4 [facility] Start: 01-28-2021 History SDOH Physica l Activity DPW 2 [facility] Start: 01-28-2021 Education 12 [facility] Start: 08-07-2017 Tobacco Comment currently on e-cig [facility] Start: 1960 Sex Assigned At Not on file [facility] Start: 04-11-2022 End: 05-18-2022 Exposure to SARS-CoV-2 (event) Not sure [facility] Start: 05-30-2022 Tobacco use and exposure Smokeless tobacco non-user [facility] Start: 05-30-2022 Alcohol intake Ex-drinker (finding) [facility] Start: 05-30-2022 Alcohol Comment Socially [facility] Start: 06-28-2020 End: 01-28-2021 Social connection and isolation panel [facility] Do you belong to any clubs or organizations such as latter-day groups, unions, fraternal or athletic groups, or school groups? Yes [facility] Are you now , , , , never or living with a partner? [facility] How often to you hav e a drink containing alcohol? 2-4 times a month [facility] How many standard drinks containing alcohol do you have on a typical day? 1 or 2 [facility] How often do you hav e 6 or more drinks on 1 occasion? Never [facility] Adult Depression Screening Assessment 0 [facility] Do you feel stress - tense, restless, nervous, or anxious, or unable to sleep at night because your mind is troubled all the time - these days [OSQ] Only a little [facility] (I/We) worried keesha er (my/our) food would run out before (I/we) got money to buy more. Never true [facility] At any time in the p ast 12 months, were you homeless or living in fdc [including now]? No [facility] Start: 10-07-2024 End: 11-01-2024 Sex Female (finding) [facility] NEGATED: Highlighted row [facility] NEGATED: Highlighted row Not [facility] Medical Equipment Procedure Code Equipment Code Equipment Origin al Text Equipment Identifier Dates Total knee replacement Orthopaedic cement, non-antimicrobial [id number] FDA Start: 06-21-2023 Total knee replacement ([id number] Polyethylene patella prosthesis [id number] FDA Start: 06-21-2023 Simplex P Bone Cement Radiopaque Full Dose Individual Pack - [id number] Start: 12-07-2010 Ins Tib 3 9mm Kn X3 Cr Trthln - [id number] Start: 12-07-2010 Ins Tib 3 11mm K n X3 Cs Trthln - [id number] Start: 01-21-2014 Comp Pat 10mm 32 mm Asym Trthln - [id number] Start: 12-07-2010 Baseplt Tib Trth ln 3 Prim - [id number] Start: 12-07-2010 23MM PLATE FDA Start: 10-11-2022 STRIP,BONE CANC [id number] FDA Start: 10-11-2022 STRIP,BONE CANC [id number] FDA Start: 10-11-2022 STRIP,BONE CANC [id number] FDA Start: 10-11-2022 SUTURE,LIGA CLIP MED LT200 [...] F3D ALIF FDA Start: 10-11-2022 INFLUX SPARC [phone] FDA Start: 10-11-2022 PATCH,AMNION 2X3CM FDA Start: 10-11-2022 PATCH,AMNION 2X3CM FDA Start: 10-11-2022 SPACER,10MM INTERLAM FDA Star t: 10-11-2022 23MM PLATE FDA Start: 10-11-2022 STRIP,BONE CANC [id number] FDA Start: 10-11-2022 STRIP,BONE CANC [id number] FDA Start: 10-11-2022 STRIP,BONE CANC [id number] FDA Start: 10-11-2022 SUTURE,LIGA CLIP MED LT200 [...] F3D ALIF FDA Start: 10-11-2022 INFLUX SPARC [phone] FDA Start: 10-11-2022 PATCH,AMNION 2X3CM FDA Start: 10-11-2022 PATCH,AMNION 2X3CM FDA Start: 10-11-2022 SPACER,10MM INTERLAM FDA Star t: 10-11-2022 23MM PLATE FDA Start: 10-11-2022 STRIP,BONE CANC [id number] FDA Start: 10-11-2022 STRIP,BONE CANC [id number] FDA Start: 10-11-2022 STRIP,BONE CANC [id number] FDA Start: 10-11-2022 SUTURE,LIGA CLIP MED LT200 [...] F3D ALIF FDA Start: 10-11-2022 INFLUX SPARC [phone] FDA Start: 10-11-2022 PATCH,AMNION 2X3CM FDA Start: 10-11-2022 PATCH,AMNION 2X3CM FDA Start: 10-11-2022 SPACER,10MM INTERLAM FDA Star t: 10-11-2022 23MM PLATE FDA Start: 10-11-2022 STRIP,BONE CANC [id number] FDA Start: 10-11-2022 STRIP,BONE CANC [id number] FDA Start: 10-11-2022 STRIP,BONE CANC [id number] FDA Start: 10-11-2022 SUTURE,LIGA CLIP MED LT200 [...] F3D ALIF FDA Start: 10-11-2022 INFLUX SPARC [phone] FDA Start: 10-11-2022 PATCH,AMNION 2X3CM FDA Start: 10-11-2022 PATCH,AMNION 2X3CM FDA Start: 10-11-2022 SPACER,10MM INTERLAM FDA Star t: 10-11-2022 23MM PLATE FDA Start: 10-11-2022 STRIP,BONE CANC [id number] FDA Start: 10-11-2022 STRIP,BONE CANC [id number] FDA Start: 10-11-2022 STRIP,BONE CANC [id number] FDA Start: 10-11-2022 SUTURE,LIGA CLIP MED LT200 [...] F3D ALIF FDA Start: 10-11-2022 INFLUX SPARC [phone] FDA Start: 10-11-2022 PATCH,AMNION 2X3CM FDA Start: 10-11-2022 PATCH,AMNION 2X3CM FDA Start: 10-11-2022 SPACER,10MM INTERLAM FDA Star t: 10-11-2022 23MM PLATE FDA Start: 10-11-2022 STRIP,BONE CANC [id number] FDA Start: 10-11-2022 STRIP,BONE CANC [id number] FDA Start: 10-11-2022 STRIP,BONE CANC [id number] FDA Start: 10-11-2022 SUTURE,LIGA CLIP MED LT200 [...] F3D ALIF FDA Start: 10-11-2022 INFLUX SPARC [phone] FDA Start: 10-11-2022 PATCH,AMNION 2X3CM FDA Start: 10-11-2022 PATCH,AMNION 2X3CM FDA Start: 10-11-2022 SPACER,10MM INTERLAM FDA Star t: 10-11-2022 23MM PLATE FDA Start: 10-11-2022 STRIP,BONE CANC [id number] FDA Start: 10-11-2022 STRIP,BONE CANC [id number] FDA Start: 10-11-2022 STRIP,BONE CANC [id number] FDA Start: 10-11-2022 SUTURE,LIGA CLIP MED LT200 [...] F3D ALIF FDA Start: 10-11-2022 INFLUX SPARC [phone] FDA Start: 10-11-2022 PATCH,AMNION 2X3CM FDA Start: 10-11-2022 PATCH,AMNION 2X3CM FDA Start: 10-11-2022 SPACER,10MM INTERLAM FDA Star t: 10-11-2022 23MM PLATE FDA Start: 10-11-2022 STRIP,BONE CANC [id number] FDA Start: 10-11-2022 STRIP,BONE CANC [id number] FDA Start: 10-11-2022 STRIP,BONE CANC [id number] FDA Start: 10-11-2022 SUTURE,LIGA CLIP MED LT200 [...] F3D ALIF FDA Start: 10-11-2022 INFLUX SPARC [phone] FDA Start: 10-11-2022 PATCH,AMNION 2X3CM FDA Start: 10-11-2022 PATCH,AMNION 2X3CM FDA Start: 10-11-2022 SPACER,10MM INTERLAM FDA Star t: 10-11-2022 23MM PLATE FDA Start: 10-11-2022 STRIP,BONE CANC [id number] FDA Start: 10-11-2022 STRIP,BONE CANC [id number] FDA Start: 10-11-2022 STRIP,BONE CANC [id number] FDA Start: 10-11-2022 SUTURE,LIGA CLIP MED LT200 [...] F3D ALIF FDA Start: 10-11-2022 INFLUX SPARC [phone] FDA Start: 10-11-2022 PATCH,AMNION 2X3CM FDA Start: 10-11-2022 PATCH,AMNION 2X3CM FDA Start: 10-11-2022 SPACER,10MM INTERLAM FDA Star t: 10-11-2022 23MM PLATE FDA Start: 10-11-2022 STRIP,BONE CANC [id number] FDA Start: 10-11-2022 STRIP,BONE CANC [id number] FDA Start: 10-11-2022 STRIP,BONE CANC [id number] FDA Start: 10-11-2022 SUTURE,LIGA CLIP MED LT200 [...] F3D ALIF FDA Start: 10-11-2022 INFLUX SPARC [phone] FDA Start: 10-11-2022 PATCH,AMNION 2X3CM FDA Start: 10-11-2022 PATCH,AMNION 2X3CM FDA Start: 10-11-2022 SPACER,10MM INTERLAM FDA Star t: 10-11-2022 23MM PLATE FDA Start: 10-11-2022 STRIP,BONE CANC [id number] FDA Start: 10-11-2022 STRIP,BONE CANC [id number] FDA Start: 10-11-2022 STRIP,BONE CANC [id number] FDA Start: 10-11-2022 SUTURE,LIGA CLIP MED LT200 [...] F3D ALIF FDA Start: 10-11-2022 INFLUX SPARC [phone] FDA Start: 10-11-2022 PATCH,AMNION 2X3CM FDA Start: 10-11-2022 PATCH,AMNION 2X3CM FDA Start: 10-11-2022 SPACER,10MM INTERLAM FDA Star t: 10-11-2022 23MM PLATE FDA Start: 10-11-2022 STRIP,BONE CANC [id number] FDA Start: 10-11-2022 STRIP,BONE CANC [id number] FDA Start: 10-11-2022 STRIP,BONE CANC [id number] FDA Start: 10-11-2022 SUTURE,LIGA CLIP MED LT200 [...] F3D ALIF FDA Start: 10-11-2022 INFLUX SPARC [phone] FDA Start: 10-11-2022 PATCH,AMNION 2X3CM FDA Start: 10-11-2022 PATCH,AMNION 2X3CM FDA Start: 10-11-2022 SPACER,10MM INTERLAM FDA Star t: 10-11-2022 23MM PLATE FDA Start: 10-11-2022 STRIP,BONE CANC [id number] FDA Start: 10-11-2022 STRIP,BONE CANC [id number] FDA Start: 10-11-2022 STRIP,BONE CANC [id number] FDA Start: 10-11-2022 SUTURE,LIGA CLIP MED LT200 [...] F3D ALIF FDA Start: 10-11-2022 INFLUX SPARC [phone] FDA Start: 10-11-2022 PATCH,AMNION 2X3CM FDA Start: 10-11-2022 PATCH,AMNION 2X3CM FDA Start: 10-11-2022 SPACER,10MM INTERLAM FDA Star t: 10-11-2022 23MM PLATE FDA Start: 10-11-2022 STRIP,BONE CANC [id number] FDA Start: 10-11-2022 STRIP,BONE CANC [id number] FDA Start: 10-11-2022 STRIP,BONE CANC [id number] FDA Start: 10-11-2022 SUTURE,LIGA CLIP MED LT200 [...] F3D ALIF FDA Start: 10-11-2022 INFLUX SPARC [phone] FDA Start: 10-11-2022 PATCH,AMNION 2X3CM FDA Start: 10-11-2022 PATCH,AMNION 2X3CM FDA Start: 10-11-2022 SPACER,10MM INTERLAM FDA Star t: 10-11-2022 23MM PLATE FDA Start: 10-11-2022 STRIP,BONE CANC [id number] FDA Start: 10-11-2022 STRIP,BONE CANC [id number] FDA Start: 10-11-2022 STRIP,BONE CANC [id number] FDA Start: 10-11-2022 SUTURE,LIGA CLIP MED LT200 [...] F3D ALIF FDA Start: 10-11-2022 INFLUX SPARC [phone] FDA Start: 10-11-2022 PATCH,AMNION 2X3CM FDA Start: 10-11-2022 PATCH,AMNION 2X3CM FDA Start: 10-11-2022 SPACER,10MM INTERLAM FDA Star t: 10-11-2022 23MM PLATE FDA Start: 10-11-2022 STRIP,BONE CANC [id number] FDA Start: 10-11-2022 STRIP,BONE CANC [id number] FDA Start: 03-21-2023 STRIP,BONE CANC [id number] FDA Start: 10-11-2022 SUTURE,LIGA CLIP MED LT200 [...] F3D ALIF FDA Start: 10-11-2022 INFLUX SPARC [phone] FDA Start: 10-11-2022 PATCH,AMNION 2X3CM FDA Start: 10-11-2022 PATCH,AMNION 2X3CM FDA Start: 10-11-2022 SPACER,10MM INTERLAM FDA Star t: 10-11-2022 23MM PLATE FDA Start: 10-11-2022 STRIP,BONE CANC [id number] FDA Start: 10-11-2022 STRIP,BONE CANC [id number] FDA Start: 10-11-2022 STRIP,BONE CANC [id number] FDA Start: 10-11-2022 SUTURE,LIGA CLIP MED LT200 [...] F3D ALIF FDA Start: 10-11-2022 INFLUX SPARC [phone] FDA Start: 10-11-2022 PATCH,AMNION 2X3CM FDA Start: 10-11-2022 PATCH,AMNION 2X3CM FDA Start: 10-11-2022 SPACER,10MM INTERLAM FDA Star t: 10-11-2022 23MM PLATE FDA Start: 10-11-2022 STRIP,BONE CANC [id number] FDA Start: 10-11-2022 STRIP,BONE CANC [id number] FDA Start: 10-11-2022 STRIP,BONE CANC [id number] FDA Start: 10-11-2022 SUTURE,LIGA CLIP MED LT200 [...] F3D ALIF FDA Start: 10-11-2022 INFLUX SPARC [phone] FDA Start: 10-11-2022 PATCH,AMNION 2X3CM FDA Start: 10-11-2022 PATCH,AMNION 2X3CM FDA Start: 10-11-2022 SPACER,10MM INTERLAM FDA Star t: 10-11-2022 23MM PLATE FDA Start: 10-11-2022 STRIP,BONE CANC [id number] FDA Start: 10-11-2022 STRIP,BONE CANC [id number] FDA Start: 10-11-2022 STRIP,BONE CANC [id number] FDA Start: 10-11-2022 SUTURE,LIGA CLIP MED LT200 [...] F3D ALIF FDA Start: 10-11-2022 INFLUX SPARC [phone] FDA Start: 10-11-2022 PATCH,AMNION 2X3CM FDA Start: 10-11-2022 PATCH,AMNION 2X3CM FDA Start: 10-11-2022 SPACER,10MM INTERLAM FDA Star t: 10-11-2022 23MM PLATE FDA Start: 10-11-2022 STRIP,BONE CANC [id number] FDA Start: 10-11-2022 STRIP,BONE CANC [id number] FDA Start: 10-11-2022 STRIP,BONE CANC [id number] FDA Start: 10-11-2022 SUTURE,LIGA CLIP MED LT200 [...] F3D ALIF FDA Start: 10-11-2022 INFLUX SPARC [phone] FDA Start: 10-11-2022 PATCH,AMNION 2X3CM FDA Start: 10-11-2022 PATCH,AMNION 2X3CM FDA Start: 10-11-2022 SPACER,10MM INTERLAM FDA Star t: 10-11-2022 23MM PLATE FDA Start: 10-11-2022 STRIP,BONE CANC [id number] FDA Start: 10-11-2022 STRIP,BONE CANC [id number] FDA Start: 10-11-2022 STRIP,BONE CANC [id number] FDA Start: 10-11-2022 SUTURE,LIGA CLIP MED LT200 [...] F3D ALIF FDA Start: 10-11-2022 INFLUX SPARC [phone] FDA Start: 10-11-2022 PATCH,AMNION 2X3CM FDA Start: 10-11-2022 PATCH,AMNION 2X3CM FDA Start: 10-11-2022 SPACER,10MM INTERLAM FDA Star t: 10-11-2022 Goals Date Patient Goal Desired Activity /State Functional Status Date Assessment Result Facility 09-26-2023 Functional status Ambulates;Up ad gina [facility] Work Phone: 09-25-2023 Functional status None [facility] Work Phone: 10-15-2022 Functional status Ambulates;Up ad gina [facility] Work Phone: 10-15-2022 Functional status Assistive Shandra fredy Rolling Walker [facility] Work Phone: Mental Status Date Assessment Result Facility 03-10-2025 Cognitive function Level Of Consciousness Drowsy [facility] Work Phone: 03-10-2025 Cognitive function Voice/Name [facility] Work Phone: 10-07-2024 Cognitive function Voice/Name [facility] Work Phone: 11-14-2023 Cognitive function Touch/Shaking [facility] Work Phone: 09-26-2023 Cognitive function Voice/Name [facility] Work Phone: 06-21-2023 Cognitive function Voice/Name [facility] Work Phone: 10-14-2022 Cognitive function Voice/Name [facility] Work Phone: Clinical Notes 06-13-2016 to 03-25-2025 Note Date & Type Note Facility 03-25-2025 History and physi [facility] [facility] 03-25-2025 Discharge summary [facility] 03-25-2025 Radiology Diagnostic study note [facility] Imaging Services [address] [place] [address] Abdomen/Pelvis W IV Cont ONLY MR#: [id number] Acct: [id number] Name: JUDY REAGAN Rep #: [id number] : 1960 F 65 From: Reese Saenz MD PCP: Dr. Hernandez Mosley MD Status: REG E R Study:Abdomen/Pelvis W IV Cont ONLY Date of E xam: 03/25/25 Exam# [id number] Ordering Dr: Nathaniel Echeverria MD PROCEDURE: CT ABDOMEN/PELVIS W IV CONT ONLY 03/25/2025 REASON FOR EXAM: ACUTE LOWER ABD PAIN TECHNIQUE: Procedure Code: [id number] Modality: CT Procedure: ABDOMEN/PELVIS W IV CONT ONLY Coronal and Sagittal reconstruction series were provided. CONTRAST: Isovue-300 VOLUME: 97 mL One or more dose reduction techniques were used (e.g., Automated exposure control, adjustment of the mA and/or kV according to patient size, use of iterative reconstruction technique. RADIATION DOSE SUMMARY: DLP: 701.53 mGycm COMPARISON: Abdominal CT 08/12/2024. FINDINGS: Lung bases: Clear. Liver: Hepatic steatosis, otherwise unremarkable. Gallbladder: Unremarkable. No biliary ductal dilatation. Spleen: Unremarkable. Pancreas: Unremarkable. Adrenals: Unremarkable. Kidneys: Normal, symmetric enhancement. No urolithiasis or hydroureteronephrosis on either side. Few bilateral small simple appearing renal cysts. Bladder: Unremarkable. Reproductive Organs: Prior hysterectomy. Unremarkable adnexae. Bowel: Unremarkable stomach and small bowel. No evidence of obstruction. Appendix is surgically absent. Extensive distal colonic diverticulosis, with segmental wall thickening and prominent inflammatory fat stranding in the lower pelvis involving the mid to distal sigmoid colon compatible with acute diverticulitis. No free fluidcollection or free air to indicate perforation. Lymph nodes: No suspicious lymph node enlargement. Vasculature: Normal caliber abdominal aorta and IVC, mild atherosclerotic calcifications. Peritoneum / Retroperitoneum: No ascites or free air. Bones: Postoperative changes of anterior discectomy and fusion as well as posterior metallic fusion of the spinous processes at L4-L5, with intact hardware. CT/Abdomen/Pelvis W IV Cont ONLY IMPRESSION: 1. Acute uncomplicated sigmoid diverticulitis. 2. Diffuse hepatic steatosis. Reading Location: [facility] CC: Dr. Christian Echeverria MD; Dr. Hernandez Mosley MD ~ Manager Shipping: Signed [facility] 03-25-2025 Discharge summary Note Date/Time March 25, 2025 6:09pm [facility] Medical Records Department [address] [place] [address] Emergency Department Summary 03/25/25 MR#: [id number] Acct: [id number] Name: JUDY REAGAN Rep #:[id number] : 1960 65 From: Christian Echeverria MD PCP: Dr. Hernandez Mosley MD Status:REG E R Location: ED HPI HPI - GI History of Present Illness Chief Complaint: Abd Pain Informant: patient Narrative Narrative: 65-year-old female presenting with diffuse lower abdominal pain worse on the right than the left that started yesterday gradually, worse today despite takingher Cipro and Flagyl, she states this started like multiple episodes of diverticulitis she has had in the past, however she followed up with GI Dr. Godwin and had scopes and was actually diagnosed with Crohn's after all of that,and is now on Stelara so she is not sure if this is diverticulitis or if this isrelated to Crohn's or what is going on. She states she has had a low-grade tempand felt chills, she has had severe nausea, no vomiting. Diarrhea without blood, melena, mucus but she did have tenesmus and then very little stool came out. That started yesterday as well. She states the pain really has become severe. [facility] Medical History Pain History of Crohn's disease Chronic pain GERD (gastroesophageal reflux disease) History of steroid therapy Wears glasses Post-menopausal Anxiety Alcohol use Hx of psoriatic arthritis Restless legs Back pain History of diverticulitis Hx of peptic ulcer Former smoker History of pain when walking Hypertension Osteoarthritis Home Medications ?Medication ?Instructions ?Recorded ?Last Taken ?Type venlafaxine 37.5 mg tablet 75 mg PO QHS depression 03/09/25 History pantoprazole 40 mg tablet,delayed 40 mg PO DAILY GERD 08/09/22 03/10/25 History release ramipril 10 mg capsule 10 mg PO BID HEART 08/09/22 03/09/25 History ropinirole 0.25 mg tablet 0.5 mg PO QHS RESTLESS LEGS 08/09/22 03/09/25 History furosemide 20 mg tablet 20 mg PO DAILY 01/12/2302/21 History acidophilus 25 million 2 tab PO BID #0 tabs 4 03/09/25 Rx cell-pectin, citrus 100 mg tablet tramadol 50 mg tablet 50 - 100 mg (1 - 2 x 50 mg) PO Q8H 09/26/23 03/09/25 Rx PRN pain #10 tabs amlodipine 5 mg tablet (Norvasc) 5 mg PO QHS 11/09/23 03/09/25 History ustekinumab 90 mg/mL subcutaneous 90 mg subcut Q8W #1 mL 03/11/24 Unknown Rx syringe (Stelara) dicyclomine 20 mg tablet 20 mg PO TID PRN abdominal p ain 10/04/24 Unknown History duloxetine 30 mg capsule,delayed 30 mg PO DAILY #30 ca ps 11/18/24 03/09/25 Rx release tizanidine 4 mg tablet 4 mg PO BID PRN PRN muscle s pasm 03/25/25 Unknown History Allergy/AdvReac Type Severity Reaction Status Date / Time adhesive tape Allergy Severe blistering Verified 03/25/25 14:10 bee venom protein (honey bee) Allergy Swelling Verified 03/25/25 14:10 Family History Other Breast cancer CAD (coronary [...] Constitutional Constitutional ED: Denies chills or fever(s) Eyes Eyes: Denies change in vision or diplopia ENT ENT ED: Denies rhinorrhea or sore throat Cardiovascular Cardiovascular: Denies chest pain or palpitations Respiratory/Chest Respiratory/Chest: Denies cough or dyspnea Gastrointestinal Gastrointestinal: Reports abdominal pain, diarrhea, loose stools, nausea and tenesmus; Denies hematochezia, melena, rectal bleeding or vomiting Genitourinary Genitourinary ED: Denies dysuria or hematuria Musculoskeletal Musculoskeletal: Reports back pain and other Details: Lower abdominal pain radiates into low back at times ; Denies neck pain Integumentary Denies abscess or rash Neurologic Neurologic: Denies headache(s), paresthesias or weakness Psychiatric Psychiatric: Denies anxiety or suicidal thoughts EXAM Physical Exam Const Vital Signs: 03/25/25 14:09 03/25/25 15:08 03/25/25 16:00 Temperature 99.9 F H Temperature Source Oral Pulse Rate 127 H 85 96 Respiratory Rate 18 18 18 Blood Pressure 123/79 H 151/91 H 148/78 H Blood Pressure Mean 93 111 101 Pulse Ox 98 99 100 Oxygen Delivery Method Room Air Room Air Room Air 03/25/25 17:00 03/25/25 18:00 Temperature Temperature Source Pulse Rate 96 74 Respiratory Rate 22 H 15 Blood Pressure 149/84 H 117/56 L Blood Pressure Mean 105 76 Pulse Ox 97 93 Oxygen Delivery Method Room Air Room Air Positive well nourished and well developed General Appearance ED: well developed and NAD HEENT Reports moist mucous membranes normocephalic and atraumatic Eyes PERRL and EOMs intact bilaterally Neck full ROM and supple Resp normal respiratory effort and clear to auscultation bilaterally Cardio regular rate, regular rhythm and no murmurs GI GI Narrative: Abdominal distention. Quite tender moderate-severe throughout the lower abdomen, no rebound tenderness, no other abdominal tenderness including upper abdomen. No guarding. Auscultation: normoactive bowel sounds Palpation: soft Back/Spine no CVA tenderness General Back: other FROM Extremity normal to inspection General Extremety ED: Negative for edema, pulses abnormal or tenderness General Extremity: Negative for edema or pulses abnormal Neuro oriented x3, CN's II-XII intact bilaterally and no sensory deficits noted Sensorium / Orientation: awake and alert Motor Exam: strength 5/5 throughout Skin no rashes or lesions noted and no wounds MDM MDM MDM Narrative Medical decision making narrative: Differential includes diverticulitis but also complications of Crohn's disease including bowel obstruction, abscess, Crohn's flare. CT indicated. Labs showedleukocytosis 17.4 with a left shift no bands, rest of her labs are normal and CTshows what appears to be uncomplicated diverticulitis, I reviewed the images antionette which I agree with. Patient needed a couple doses of pain medication here, gave her a dose of IV Zosyn as well. I offered admission given her leukocytosis and the amount of pain that she has been in; she accepts as even after the second dose of pain medication she really is uncomfortable. I think continuing IV antibiotics inpatient is reasonable. Discussed with hospitalist. History & Record Review Discussion w/independent historian: Patient Lab Data Attestation: I reviewed the patient's lab results. Labs: Laboratory Results - last 24 hr 03/25/25 03/25/25 14:55 16:24 WBC 17.4 H RBC 4.60 Hgb 14.4 Hct 42.0 MCV 91.3 MCH 31.3 MCHC 34.3 RDW Std Deviation 41.3 RDW Coeff of Caity 12.5 Plt Count 345 MPV 9.9 Immature Gran % (Auto) 0.600 Neut % (Auto) 80.0 H Lymph % (Auto) 7.6 L [place] % (Auto) 11.4 H Eos % (Auto) 0.1 Baso % (Auto) 0.3 Absolute Neuts (auto) 13.9 H Absolute Lymphs (auto) 1.32 Nucleated RBC % 0 Sodium 134 Potassium 3.7 Chloride 94 L Carbon Dioxide 26.3 Anion Gap 14 BUN 11 Creatinine 0.89 Estim Creat Clear Calc 64.24 Est GFR (MDRD) Non-Af 73 BUN/Creatinine Ratio 12.8 Glucose 120 H Calcium 9.5 Total Bilirubin 0.88 AST 20 ALT 26 Alkaline Phosphatase 110 H Total Protein 7.5 Albumin 4.5 Globulin 2.9 Albumin/Globulin Ratio 1.5 Lipase 32 Urine Color Yellow Urine Clarity Clear Urine pH 7.0 Ur Specific [place] 1.005 Urine Protein Negative Urine Glucose (UA) Normal Urine Ketones Negative Urine Occult Blood Negative Urine Nitrite Negative Urine Bilirubin Negative Urine Urobilinogen Normal Ur Leukocyte Esterase Negative Radiography Diagnostic Testing: Clinical Impression(s) from Imaging Studies Abdomen/Pelvis CT 03/25/25 16:12 IMPRESSION: 1. Acute uncomplicated sigmoid diverticulitis. 2. Diffuse hepatic steatosis. Reading Location: [facility] Management Discussion w/another healthcare provider: Hospitalist Discharge Plan Dx/Rx/DC Orders Clinical Impression: Diverticulitis of sigmoid colon, Crohn's disease, Intractable abdominal pain Disposition Disposition: [facility] What to do if you have Problems For any increased pain, shortness of breath, bleeding, nausea or vomiting, chestpain, or any unexpected problems, contact your Primary Care Provider. Call [facility] ([phone]) or report to the closest Emergency Room. Call 911 if necessary. 03/25/251808 <Electronically signed by Christian Echeverria MD> Cosigner Signature (if applicable): CC: Dr. Hernandez Mosley MD ~ Signed [facility] Work Phone: 1(978) 182-274608-26-2025 Evaluation note* Diagnosis Onset Date Resolution Status Admit Date Crohn's disease acute March 182024 9:51am [facility] Work Phone: 1(108) 568-654308-26-2025 Evaluation note* Diagnosis Onset Date Resolution Status Admit Date Crohn's disease acute March 182024 9:51am Acute diverticulitis acute Mar 6:40pm Crohn's disease acute March 25, 2025 6:40pm Intractable abdominal pain acute March 25, 2025 6:40pm [facility] Work Phone: 1(139) 325-514908-18-2025 Consult note [facility] Medical Records Department [address] [place] [address] Anesthesia Postop Eval I 03/10/25 0848 MR#: [id number] Acct: [id number] Name: JUDY REAGAN ANN Rep #:[id number] : 1960 65 From: Yeimy Duggan POWERHOUSE ELECTRICIAN APPRENTICE PCP: Dr. Hernandez Mosley MD Status:REG S DC Y Race: C Location: [place] [address] Anesthesia: Postop Eval I Current Vital Signs Temperature: 97.2 F Pulse Rate: 80 Blood Pressure: 140/75 Respiratory Rate: 20 Pulse Ox: 99 Assessment Airway patent: Yes Spontaneous unlabored respirations: Yes nausea: No Vomiting: No Anesthesia Complication: No Fluid Hydration Crystalloid volume administer (ml): 200 Total IV fluid infused: 200 Progress Note Anesthesia document: Postop Eval 1 completed: Yes 03/10/25 0848 a POWERHOUSE ELECTRICIAN APPRENTICE> Date _ Yeimy Duggan POWERHOUSE ELECTRICIAN APPRENTICE Cosigner Signature: Date CC: ~ Signed [facility]08-18-2025 Procedure note [facility] Medical Records Department [address] [place] [address] Operative Report 03/10/25 0849 MR#: [id number] Acct: [id number] Name: JUDY REAGAN ANN Rep #:[id number] : 1960 65 From: Montana Quiñonez MD PCP: Dr. Hernandez Mosley MD Status:REG S DC Location: [place] [address] Operative Report (Standard) Operative Information Date of Procedure: 03/10/25 Pre-Operative Diagnosis: Lumbosacral radiculopathy, lumbosacral spinal stenosis,lumbosacral degenerative disc disease Post-Operative Diagnosis: Lumbosacral radiculopathy, lumbosacral spinal stenosis, lumbosacral degenerative disc disease Surgery/Procedure Performed: Right sided lumbar transforaminal epidural steroid injection L4-5, L5-S1 under fluoroscopic guidance pediatrician: No Type of Anesthesia: Local MAC RN Documented Start/Stop Times: Operation Date: 03/10/25 08:50 Case Time Into Pre-Op 03/10/25 07:16 Anesthesia Start 03/10/25 08:34 Into Room 03/10/25 08:34 Procedure Start 03/10/25 08:42 Procedure End 03/10/25 08:45 Anesthesia End 03/10/25 08:48 Out of Room 03/10/25 08:48 Procedure Start Time: 08:49 Procedure Stop Time: 08:49 Select all DRAINS/GRAFTS/IMPLANTS that apply: None Estimated Blood Loss: 1 Specimen collected: No Description of surgery: DESCRIPTION OF PROCEDURE: History and physical of today was reviewed. Risks and benefits of the procedure were explained. The patient understood and agreedto proceed. Informed consent was obtained. IV inserted per routine protocol. The patient was taken to the operating room and placed in the proneposition with a pillow positioned underneath the abdomen. The right side of the lower back was prepped and draped in a sterile fashion using iodine x3. Under fluoroscopy guidance on oblique view, theL4 through S1 vertebral bodies were visualized. The skin and subcutaneous tissue was anesthetized with approximately 5 mL of 1% lidocaine using a 25-gauge regular needle. Under direct visualization with fluoroscopy at approximately 35-degree angle, startingon the right L4, ending on the right L5, using a 22-gauge 5-inch spinal needle, the needle was advanced via the skin. The tip of the needle was maneuvered and directed towards the inferior and medial gutter of the transverse process at thesuperiormost aspect of the neural foramen. Once the tip of the needle was at the vicinity of the foramen, after negative aspiration for blood or CSF, a totalof 1 mL of contrast was injected in divided doses between both levels to confirmcorrect placement of the needle as well as medial spread. The confirmation was obtained on AP as well as lateral view. After repeated negative aspiration and confirmation on AP as well as lateral view, a total of 6 mL of preservative-free0.25% Marcaine with 80 mg ofDepo-Medrol was injected in divided doses between both levels. The needles were then removed intact. The patient experienced no sign or symptoms of intrathecal or intravascular injection. The patientexperienced no paresthesia. The procedure was completed without any apparent difficulty or any compl ications. The patient appeared to tolerate it well. Assessment and plan: This is a 65-year-old female with lumbosacral radiculopathy, lumbosacral spinal stenosis, lumbosacral degenerative disc disease status post right-sided lumbar transforaminal epidural steroid injection L4-5, L5-S1 under fluoroscopic guidance, patient will continue her current medications, patient will follow-up in approximately 2 weeks for reevaluation. Surgical Findings: 0 Complications Complications: No Admit VTE Documentation VTE Present on Admission: No VTE Mechan Device Prophylaxis: None VTE Pharm Prophylaxis ordered?: No 03/10/2552 Cosigner Signature (if applicable): CC: Dr. [place] Quiñonez MD; Dr. Hernandez Mosley MD~ Signed [facility]08-18-2025 Consult note [facility] Medical Records Department [address] [facility] [place] [address] Pre-Anesthesia Evaluation 03/10/25801 MR#: [id number] Acct: [id number] Name: JUDY REAGAN Rep #:[id number] : 1960 65 From: Pardeep Dsouza CRNA PCP: Dr. Hernadnez Mosley MD Status:REG S DC Y Race: C Location: [place] [address] ASA Classification* ASA Classification ASA Classification: 2 [...] Patient and Chart Anesthesia Focused Assessment* Temperature: 97.0 F Pulse Rate: 73 Blood Pressure: 108/77 Respiratory Rate: 18 Pulse Ox: 99 Oxygen Delivery Method: Room Air Airway Assessment Mouth opens: 2 cm Mallampati Score: II Teeth Condition: Intact Neck Range of motion (ROM): Full ROM Labs Anesthesia Preop lab: CBC WBC 11.0 K/mm3 (4.4-11.0) 12/02/24 13:51 12/02/24 RBC 4.45 M/mm3 (4.2-5.4) 12/02/24 13:51 12/02/24 Hgb 13.7 g/dL (12.0-15.0) 12/02/24 13:51 12/02/24 Hct 41.5 % (37-47) 12/02/24 13:51 12/02/24 Plt Count 328 K/mm3 (150-450) 12/02/24 13:51 12/02/24 CHEMISTRY Potassium 3.7 mmol/L (3.3-5.1) 12/02/24 13:51 12/02/24 Sodium 137 mmol/L (133-145) 12/02/24 13:51 12/02/24 Magnesium 2.3 mg/dL (1.6-2.6) 09/24/23 05:20 09/24/23 Phosphorus 3.3 mg/dL (2.5-4.9) 09/24/23 05:20 09/24/23 BUN 16 mg/dL (4-19) 12/02/24 13:51 12/02/24 Creatinine 0.82 mg/dL (0.70-1.20) 12/02/24 13:51 12/02/24 Glucose 81 mg/dL (70-99) 12/02/24 13:51 12/02/24 POC Glucose 119 mg/dL (74-106) H 06/21/23 09:50 06/21/23 TSH 2.390 uIU/mL (0.300-4.200) 12/02/24 13:51 11/21 09/17 COAG PT 12.6 SECONDS (11.7-14.9) 06/19/23 12:39 Pre-Assessment Diagnosis/Proposed Procedure Planned Operative Procedure(s): RIGHT LUMBAR TRANSFORAMINAL EPIDURAL STEROID INJECTION L4 L5 S1 Anesthesia History Anesthesia History - registered respiratory therapist: Anesthesia History - registered respiratory therapist Hx Hospitalization No 03/06/25 11:47 Any Problems With Anesthesia No 03/06/25 11:47 Cholinesterase deficiency No 03/06/25 11:47 You/Your Family Experience No 03/06/25 11:47 fever (hyperthermia) with Relationship Recent Exposure to Contagious No 03/10/25 07:32 Disease Does patient have nerve No 03/06/25 11:47 stimulator Patient instructed to have device shut off --Does patient have Pacemaker No 03/10/25 07:32 or ICD? When Was Last Pacemaker Check QUESTION #4 FULL TEXT: You/Your Family Experience fever (hyperthermia) with Anesthesia Any additional information?: No Last Oral Intake Last Oral intake: Last Oral Intake NPO since 20:00 03/10/25 07:32 Meds taken in AM with sips of water? Meds patient instructed to take am of surgery Any additional information?: No PONV PONV - registered respiratory therapist: PONV - registered respiratory therapist Female Yes 03/06/25 11:47 HX of Motion Sickness No 03/06/25 11:47 HX of N/V After Surgery No 03/06/25 11:47 Non-Smoker Yes 03/06/25 11:47 Duration of Surgery greater No 03/06/25 11:47 than 60 minutes Number of Risk Factors 2 03/06/25 11:47 PONV Score Moderate Risk 03/06/25 11:47 Any additional information?: No Height & Weight Height & Weight: Anesthesia: Height & Weight Height 5 ft 4 in 03/10/25 07:32 Weight: 76 kg 03/10/25 07:32 Body Mass Index (BMI) 28.8 03/10/25 07:32 Respiratory Assessment Respiratory Assessment - registered respiratory therapist: Respiratory Tract Infection Hx - registered respiratory therapist Hx Respiratory Tract Infection No 03/06/25 11:47 Any additional information?: No STOP Sleep Apnea STOP Sleep Apnea - registered respiratory therapist: STOP Sleep Apnea - registered respiratory therapist Hx Hypertension Yes: CONTROLLED WITH MED 03/06/25 11:47 Hx Sleep Apnea No 03/06/25 11:47 CPAP Yes 10/07/24 12:04 BIPAP Do you snore loudly (louder No 03/06/25 11:47 than talking or can be heard Do you often feel tired/ Yes 03/06/25 11:47 fatigued/ sleepy during daytime? Has anyone observed you stop No 03/06/25 11:47 breathing during sleep? STOP Results Positive 03/06/25 11:47 QUESTION #5 FULL TEXT : Do you snore loudly (louder than talking or can be heard through closeddoors)? Any additional information?: No Tobacco Use History Tobacco Use History - registered respiratory therapist: Tobacco Use History - registered respiratory therapist Tobacco Use Smoking Status Former smoker 03/06/25 11:47 Hx Tobacco Use No 03/06/25 11:47 Years Smoking Packs Smoked per Day Smoking Cessation Date was Yes - quit smoking within 15 03/06/25 11:47 within the last 15 years years Hx Smoking Cessation Date 07/24/17 03/06/25 11:47 Hx Smoking Cessation No 03/06/25 11:47 Counseling Any additional information?: No Hematologic Medial History Hematologic Hx - registered respiratory therapist: 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 Specify any problems Hx of Preganancy in last 3 No 03/06/25 11:47 Months Nurse Filling Out Transfusion DSCHRIBER 03/06/25 11:47 & Questions: Date: 03/06/25 03/06/25 11:47 Time: 11:49 03/06/25 11:47 Patient unable to answer at this time (ie. confused, unrespo Any additional information?: No /Reproduction History /Reproductive History - registered respiratory therapist: /Reproductive Hx- registered respiratory therapist Hx Now Gestational Age (in weeks): EDC: Hx Hx Para Hx Section SAB No 03/06/25 11:47 Any additional information?: No Active Medications Active Medications: Current Medications Generic Name Dose Route Start Last Admin Trade Name Freq PRN Reason Stop Dose Admin Lactated Ringer's 1,000 mls @ 15 mls/hr 03/10/25 07:30 03/10/25 07:42 IV 15 mls/hr .Q48H SARAH Administration PFSH Medical History (Updated 03/06/25 @ 11:52 by Roma Carrera) Pain History of Crohn's disease Chronic pain GERD (gastroesophageal reflux disease) History of steroid therapy Wears glasses Post-menopausal Anxiety Alcohol use Hx of psoriatic arthritis Restless legs Back pain History of diverticulitis Hx of peptic ulcer Former smoker History of pain when walking Hypertension Osteoarthritis Home Medications ?Medication ?Instructions ?Recorded ?Last Taken ?Type venlafaxine 37.5 mg tablet 75 mg PO QHS depression 03/09/25 History pantoprazole 40 mg tablet,delayed 40 mg PO DAILY GERD 08/09/22 03/10/25 History release ramipril 10 mg capsule 10 mg PO BID HEART 08/09/22 03/09/25 History ropinirole 0.25 mg tablet 0.5 mg PO QHS RESTLESS LEGS 08/09/22 03/09/25 History furosemide 20 mg tablet 20 mg PO DAILY 01/12/2302/21 History acidophilus 25 million 2 tab PO BID #0 tabs 4 03/09/25 Rx cell-pectin, citrus 100 mg tablet tramadol 50 mg tablet 50 - 100 mg (1 - 2 x 50 mg) PO Q8H 09/26/23 03/09/25 Rx PRN pain #10 tabs amlodipine 5 mg tablet (Norvasc) 5 mg PO QHS 11/09/23 03/09/25 History ustekinumab 90 mg/mL subcutaneous 90 mg subcut Q8W #1 mL 03/11/24 Unknown Rx syringe (Stelara) hyoscyamine sulfate 0.125 mg tablet 0.125 mg PO BID-QI D PRN dyspepsia 08/13/24 Unknown Rx #30 tabs dicyclomine 20 mg tablet 20 mg PO TID PRN abdominal p ain 10/04/24 Unknown History duloxetine 30 mg capsule,delayed 30 mg PO DAILY #30 ca ps 11/18/24 03/09/25 Rx release Allergy/AdvReac Type Severity Reaction Status Date / Time adhesive tape Allergy Severe blistering Verified 03/10/25 07:50 bee venom protein (honey bee) Allergy Swelling Verified 03/10/25 07:41 Family History Other Breast cancer CAD (coronary [...] in: walking frequency: 1-2 times per week Prior Cardiac Testing/Procedures Prior Cardiac Testing/Procedures: Echocardiogram and Stress Test Review of Systems (Anesthesia) ROS Narrative System reviewed and no additional complaints, except as documented. 03/10/25805 y POWERHOUSE ELECTRICIAN APPRENTICE> Date _ Pardeep Dsouza POWERHOUSE ELECTRICIAN APPRENTICE Cosigner Signature: Date CC: ~ Signed [facility]07-01-2025 Consult note Author Yeimy Duggan [facility] Note Date/Time March 10, 2025 9: 22am [facility] Medical Records Department [address] [place] [address] Anesthesia Postop Eval I 03/10/25847 MR#: [id number] Acct: [id number] Name: JUDY REAGAN ANN Rep #:[id number] : 1960 65 From: Yeimy Duggan CRNA PCP: Dr. Hernandez Mosley MD Status:REG S DC Y Race: C Location: [place] [address] Anesthesia: Postop Eval I Current Vital Signs Temperature: 97.2 F Pulse Rate: 80 Blood Pressure: 140/75 Respiratory Rate: 20 Pulse Ox: 99 Assessment Airway patent: Yes Spontaneous unlabored respirations: Yes nausea: No Vomiting: No Anesthesia Complication: No Fluid Hydration Crystalloid volume administer (ml): 200 Total IV fluid infused: 200 Progress Note Anesthesia document: Postop Eval 1 completed: Yes 03/10/25847 <Electronically signed by Yeimy chirinos POWERHOUSE ELECTRICIAN APPRENTICE> Date _ Yeimy Duggan POWERHOUSE ELECTRICIAN APPRENTICE Cosigner Signature: Date CC: ~ Signed [facility] Work Phone: 1([phone]) 988-214004-07-2025 Evaluation note* Diagnosis Onset Date Resolution Status Admit Date Crohn's disease acute October 8:50am [facility] Work Phone: 1(724) 880-150103-17-2025 Consult note [facility] Medical Records Department [address] [place] [address] Anesthesia Postop Eval II 10/07/24 1226 MR#: [id number] Acct: [id number] Name: JUDY REAGAN Rep #:[id number] : 1960 64 From: Yeimy Duggan PCP: Dr. Hernandez Mosley MD Status:REG S DC Y Race: C Location: [address] Anesthesia Postop Eval I Sum Postop Eval Completion status Anesthesia document: Postop Eval 1 completed: Yes Anesthesia Postop Eval I Summary Anesthesia Postop Eval I Summary: Anesthesia Postop Eval I: Assessment Summary Airway patent Yes 10/07/24 12:09 POWERHOUSE ELECTRICIAN APPRENTICE.LMIL Spontaneous unlabored Yes 10/07/24 12:09 POWERHOUSE ELECTRICIAN APPRENTICE.LMIL respirations Mental status Awake 10/07/24 12:09 POWERHOUSE ELECTRICIAN APPRENTICE.LMIL nausea No 10/07/24 12:09 POWERHOUSE ELECTRICIAN APPRENTICE.LMIL Vomiting No 10/07/24 12:09 POWERHOUSE ELECTRICIAN APPRENTICE.LMIL Anesthesia Postop Eval I: Fluid Summary Crystalloid volume administer 10 10/07/24 12:09 POWERHOUSE ELECTRICIAN APPRENTICE.LMIL (ml) Colloids volume administered ( ml) Blood Product volume administered (ml) Total IV fluid infused 10 10/07/24 12:09 POWERHOUSE ELECTRICIAN APPRENTICE.LMIL Anesthesia Postop Eval I: Summary Notes Anesthesia Complication No 10/07/24 12:09 POWERHOUSE ELECTRICIAN APPRENTICE.LMIL Anesthesia Complication Comment: Post-operative progress note Anesthesia: Postop Eval II Evaluation Mental status: Awake Pain Level: 3 nausea: No Vomiting: No 10/07/24 1226 a> Date _ Yeimy Sirca Cosigner Signature: Date CC: ~ Signed [facility]03-17-2025 Consult note [facility] Medical Records Department [address] [place] [address] Anesthesia Postop Eval I 10/07/24 1208 MR#: [id number] Acct: [id number] Name: JUDY REAGAN ANN Rep #:[id number] : 1960 64 From: Montse Nicole POWERHOUSE ELECTRICIAN APPRENTICE PCP: Dr. Hernandez Mosley MD Status:REG S DC Y Race: C Location: [place] [address] Anesthesia: Postop Eval I Current Vital Signs [...] Eval 1 completed: Yes 10/07/24 1209 c POWERHOUSE ELECTRICIAN APPRENTICE> Date _ Montse Nicole POWERHOUSE ELECTRICIAN APPRENTICE Cosigner Signature: Date CC: ~ Signed [facility]03-17-2025 Procedure note [facility] Medical Records Department [address] [place] [address] Operative Report 10/07/24 1200 MR#: [id number] Acct: [id number] Name: JUDY REAGAN ANN Rep #:[id number] : 1960 64 From: Montana Quiñonez MD PCP: Dr. Hernandez Mosley MD Status:REG S DC Location: [place] [address] Operative Report (Standard) Operative Information Date of Procedure: 10/07/24 Pre-Operative Diagnosis: Lumbosacral radiculopathy, lumbosacral degenerative disc disease, lumbosacral spinal stenosis, postlaminectomy syndrome of the lumbar spine Post-Operative Diagnosis: Lumbosacral radiculopathy, lumbosacral degenerative disc disease, lumbosacral spinal stenosis, postlaminectomy syndrome of the lumbar spine Surgery/Procedure Performed: Diagnostic/therapeutic caudal epidural steroid injection under fluoroscopic guidance. pediatrician: No Type of Anesthesia: Local MAC RN [...] Dr. Montana Quiñonez MD; Dr. Hernandez Mosley MD~ Signed [facility]03-17-2025 Consult note [facility] Medical Records Department [address] [place] [address] Pre-Anesthesia Evaluation 10/07/24 1141 MR#: [id number] Acct: [id number] Name: JUDY REAGAN Rep #:[id number] : 1960 64 From: Amandeep Madrigal MD PCP: Dr. Hernandez Mosley MD Status:REG S DC Y Race: C Location: [facility] ASA Classification* ASA Classification ASA Classification: 2 [...] 06/21/23 TSH 1.440 uIU/mL (0.358-3.740) 03/19/24 10:58 08/02/13 COAG PT 12.6 SECONDS (11.7-14.9) 06/19/23 12:39 Pre-Assessment Diagnosis/Proposed Procedure Planned Operative Procedure(s): caudal steroid inj Anesthesia History Anesthesia History - registered respiratory therapist: Anesthesia History - registered respiratory therapist Hx Hospitalization No 10/04/24 14:57 Any Problems [...] take am of surgery PONV PONV - registered respiratory therapist: PONV - registered respiratory therapist Female Yes 10/04/24 14:57 HX of Motion [...] 10/07/24 11:21 Respiratory Assessment Respiratory Assessment - registered respiratory therapist: Respiratory Tract Infection Hx - registered respiratory therapist Hx Respiratory Tract Infection No 10/04/24 14:57 STOP Sleep Apnea STOP Sleep Apnea - registered respiratory therapist: STOP Sleep Apnea - registered respiratory therapist Hx Hypertension Yes: CONTROLLED WITH MED 10/04/24 [...] Tobacco Use History Tobacco Use History - registered respiratory therapist: Tobacco Use History - registered respiratory therapist Tobacco Use Smoking Status Former smoker 10/04/24 14:57 Hx Tobacco Use No 10/04/24 14:57 Years Smoking Packs Smoked per Day Smoking Cessation Date was Yes - quit smoking within 15 10/04/24 14:57 within the last 15 years years Hx Smoking Cessation Date 07/24/17 10/04/24 14:57 Hx Smoking Cessation No 10/04/24 14:57 Counseling Hematologic Medial History Hematologic Hx - registered respiratory therapist: Hematologic 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 Hx of Blood Transfusion Yes 10/04/24 14:57 [...] confused, unrespo /Reproduction History /Reproductive History - registered respiratory therapist: /Reproductive Hx- registered respiratory therapist Hx Now No 10/04/24 14:57 Gestational Age [...] MD Cosigner Signature: Date CC: ~ Signed [facility]04-23-2024 History and physical note Author Stanley Friend [facility] November 14, 2023 11:56am Note Date/Time November 14, 2023 11: 56am [facility] Medical Records Department [address] [place] [address] History & Physical Exam 11/14/23 1154 MR#: [id number] Acct: [id number] Name: JUDY REAGAN ANN Rep #:[id number] : 1960 63 From: Stanley Godwin DO PCP: Dr. Hernandez Mosley MD Status:REG S HI Location: [place] [address] History and Physical Date of Admission: 11/14/23 JUDY REAGAN, is a 63 F who presents to the office today for follow up. [facility] hospitalization 03.20.16-03.23.16 for abdominal pain. EGD 03.20.16?scope could not be advanced through duodenal bulb due to concentric narrowing less likely mass; no obvious ulcerations; duodenitis with duodenal ulcers; gastritis; healing prepyloric ulcer. H.Pylori neg Prior workup: ?CT abd/pel 09.21.23?colonic diverticulosis with diverticulitis *[facility] hospitalization 09.24.23-09.26.23 for management of abdominal pain [...] flexure inflammation with friability and granularity OV 10.23.23 Pt states she has been feeling well [...] Affect: normal affect Quality Reporting Tobacco Screening ([facility] 138) Smoking Status: Former smoker Assessment and [...] Gram-negatives and anaerobes. Give Tylenol prn for ehbo-ep-xarhughw (level 1-5/10) pain or fever. Give Morphine [...] : -She is going to see a psychologist social regarding her psoriatic arthritis. -I will start [...] no clinicalchanges since date of exam. 11/14/23 115 <Electronically signed by Stanley Godwin DO> Cosigner Signature (if applicable): CC: Dr. Hernandez Mosley MD; Stanley Godwin DO~ Signed [facility] Work Phone: 1(166) 964-193304-23-2024 Procedure [facility] 11-14-2023 Procedure [facility]04-04-2024 Discharge summary Author Harry Mckeon [facility] October 26, 2023 2:17pm Note Date/Time October 26, 2023 2:17 pm [facility] Physical Therapy [facility] [address] [place] [address] [address] [place] [address] / REHABILITATION SERVICES DISCHARGE SUMMARY MR#: [id number] Acct: [id number] Name: JUDY REAGAN Rep #: [id number] : 1960 63 From: Harry Durand Referring Dr.: Dr. Shabbir Birch DO Status: REG RCR [facility] Patient Information Patient Information: [...] appropriate by the physician. Thank you! Harry Mckeon, DPT Balance/Gait/Functional tests Balance/Special Test Scores Lower Extremity Functional Score: 56 TUG Test Time Seconds: 7.82 Tug Test: <10 sec.=free mobile 6 Minute Walk Test: 1350' with no AD <Electronically signed by Harry Mckeon DPT> 10/26/23 1417 CC: Dr. Shabbir Birch DO; Dr. Hernandez Mosley MD ~ CLS Signed [facility] Work Phone: 1([phone]) 900-968903-05-2024 Discharge summary Author Sherif Benson [facility] September 26, 2023 8:43am Note Date/Time September 26, 2023 8:43 am [facility] Medical Records Department [address] [facility] [place] [address] Discharge Summary 09/26/23 0839 MR#: [id number] Acct: [id number] Name: JUDY REAGAN ANN Rep #:[id number] : 1960 63 From: Sherif Pena PCP: Dr. Hernandez Mosley MD Status:ADM I N Location: [place] [address] Providers Date of Admission: 09/24/23 Date of Discharge: 09/26/23 Primary Care Physician: Dr. Hernandez Mosley MD Consultations 09/24/23 13:22 Consult: Gastroenterology Routine Consulting Provider: [facility] Reason for Consult: abdominal pain/Bleeding EMERGENT [...] Gram-negatives and anaerobes. Give Tylenol prn for oewk-qf-qiatxdba (level 1-5/10) pain or fever. Give Morphine [...] total of 1 week of antibiotics. Advised cqmo-agq-arjrzbf probiotics for 2 weeks. Patient requested tramadol [...] (Auto) 41.7 L, Lymph % (Auto) 37.1, [place] % (Auto) 15.7 H, Eos % (Auto) [...] (Auto) 41.7 L, Lymph % (Auto) 37.1, [place] % (Auto) 15.7 H, Eos % (Auto) [...] PO BID Qty: 0 0RF Rx Instructions: Xwku-chr-daymswu. Probiotic. At least for 2 week. ciprofloxacin [...] Self Care Charges/Coding Visit Charges Inpatient E&M: 71313 Disch Hosp >30min 09/26/23 0843 <Electronically signed by Sherif Benson MD> Cosigner Signature (if applicable): CC: Dr. Sherif Benson MD; Dr. Hernandez Mosley MD~ Signed [facility] Work Phone: 1(525) 636-657703-05-2024 Discharge summary Author Sherif Benson [facility] September 26, 2023 8:39am Note Date/Time September 26, 2023 8:23 am [facility] Medical Records Department [address] [place] [address] Instructions for Home/Discharge Instructions 09/26/23 0729 MR#: [id number] Acct: [id number] Name: JUDY REAGAN ANN Rep #:[id number] : 1960 63 From: Sherif Pena PCP: [...] PO BID Qty: 0 0RF Rx Instructions: Qdqt-qug-fjaisjq. Probiotic. At least for 2 week. ciprofloxacin [...] Mosley Chi, MD [Primary Care Provider] - Stanley Godwin DO [Med Staff - Active Staff] - Within 3 Months Disposition Disposition (needs filled in before D/C Order can be placed): Home, Self Care 09/26/23 0839<Electronically signed by Sherif Benson MD>Sherif Benson MD CC: Dr. Jorge L May DO; Dr. Jessica Quintero DO; Dr. Hernandez Mosley MD ~ Signed [facility] Work Phone: 1([phone]) 266-733403-04-2024 Progress note Author [facility] September 25, 2023 5:12pm Note Date/Time September 25, 2023 5:12 pm [facility] Medical Records Department [address] [place] [address] Progress Note - Hospitalist 09/25/23 1707 MR#: [id number] Acct: [id number] Name: JUDY REAGAN ANN Rep #:[id number] : 1960 63 From: Sherif Pena PCP: Dr. Hernandez Mosley MD Status:ADM I N Location: [place] [address] Reason for Visit Reason for Visit: Diagnoses [...] % (Auto) 53.3, Lymph % (Auto) 29.0, [place] % (Auto) 14.4 H, Eos % (Auto) [...] Gram-negatives and anaerobes. Give Tylenol prn for hodv-lv-arqweuuv (level 1-5/10) pain or fever. Give Morphine [...] % (Auto) 53.3, Lymph % (Auto) 29.0, [place] % (Auto) 14.4 H, Eos % (Auto) [...] Intact 79.8 Charges/Coding Visit Charges Inpatient E&M: 46251 Subs Hosp L2 09/25/231711 <Electronically signed by Sherif Benson MD> Cosigner Signature (if applicable): CC: ~ Signed [facility] Work Phone: 1(290) 547-431203-04-2024 Procedure [facility] 09-25-2023 Procedure [facility]03-04-2024 Procedure note [facility]03-04-2024 Procedure [facility] 09-24-2023 Consult note Author Stanley Friend [facility] September 24, 2023 6:07pm Note Date/Time September 24, 2023 5:58 pm [facility] Medical Records Department [address] [place] [address] Consultation - GI 09/24/23 1754 MR#: [id number] Acct: [id number] Name: JUDY REAGAN Rep #:[id number] : 1960 63 From: Stanley Godwin DO PCP: Dr. Hernandez Mosley MD Status:ADM I N Location: [place] [address] HPI Consult Data Date of Consult: 09/24/23 HPI Narrative Reason for Consultation: Diverticulitis HPI Narrative: JUDY REAGAN, is a 63 F who [id number] F with a past medical history of who essential hypertension, history of tobacco abuse, psoriatic arthritis, pseudogout, s/p partial Left knee replacement, history of iliotibial band syndrome of the LLE followed by Dr. Birch of orthopedic surgery and history ofrecently diagnosed acute diverticulitis diagnosed on CT as an outpatient on September 21, 2023. It was treated with oral Augmentin who presents to [facility] ERcomplaining of worsening abdominal pain. Mrs. Reagan [...] and an overnight stay in the hospital. [facility] Medical History (Updated 09/24/23 @ 18:[address] Stanley Friend, DO) Alcohol use Anxiety Back pain [...] % (Auto) 57.1, Lymph % (Auto) 27.2, [place] % (Auto) 12.8 H, Eos % (Auto) [...] % (Auto) 50.3, Lymph % (Auto) 33.2, [place] % (Auto) 14.2 H, Eos % (Auto) [...] IBD SGI. Charges/Coding Visit Charges Inpatient E&M: 92995 Init Hosp L3 09/24/23 7387 <Electronically signed by Stanley Godwin DO> Cosigner Signature (if applicable): CC: Dr. Jorge L May DO; Dr. Hernandez Mosley MD~ Signed [facility] Work Phone: 1(866) 743-712803-03-2024 Progress note Author Jessica Quintero [facility] September 24, 2023 1:30pm Note Date/Time September 24, 2023 7:53 am [facility] Medical Records Department [address] [place] [address] Progress Note - Hospitalist 09/24/23 0748 MR#: [id number] Acct: [id number] Name: JUDY REAGAN Rep #:[id number] : 1960 63 From: Jessica Quintero DO PCP: Dr. Hernandez Mosley MD Status:ADM I N Location: [place] [address] Hospitalist Note Patient is a 63-year-old white female who presented to the emergency department at [facility] on 09/24/2023 with worsening abdominal pain. She [...] Cosigner Signature (if applicable): cc: ~* Signed [facility] Work Phone: 1([phone]) 683-806003-03-2024 History and physical note Author Jorge L Davalos [facility] September 24, 2023 4:51am Note Date/Time September 24, 2023 3:28 am [facility] Medical Records Department [address] [place] [address] H&P Exam - Hospitalist 09/24/23 0309 MR#: [id number] Acct: [id number] Name: JUDY REAGAN ANN Rep #:[id number] : 1960 63 From: Jorge L Gunn DO PCP: Dr. Hernandez Mosley MD Status:ADM I N Location: [place] [address] HPI - General General Date of Admission: [...] treated with oral Augmentin who presents to [facility] ER complaining of worsening abdominal pain. Mrs. [...] expected to be greater than 48 hours. [facility] Medical History Alcohol use Anxiety Back pain [...] % (Auto) 57.1, Lymph % (Auto) 27.2, [place] % (Auto) 12.8 H, Eos % (Auto) [...] Gram-negatives and anaerobes. Give Tylenol prn for beju-sx-plrdvsct (level 1-5/10) pain or fever. Give Morphine [...] 55 minutes. Charges/Coding Visit Charges Inpatient E&M: 83291 Init Hosp L2 09/24/23 6406 <Electronically signed by Jorge L May DO> Cosigner Signature (if applicable): CC: Dr. Jorge L May DO; Dr. Hernandez Mosley MD~ Signed [facility] Work Phone: 1(320) 778-323603-03-2024 Discharge summary Author Michael Lyman [facility] September 24, 2023 4:34am Note Date/Time September 24, 2023 3:12 am [facility] Medical Records Department [address] [place] [address] Emergency Department Summary 09/24/23 MR#: [id number] Acct: [id number] Name: JUDY REAGAN Rep #:[id number] : 1960 63 From: Michael Lyman DO PCP: Dr. Hernandez Mosley MD Status:ADM I N Location: [place] [address] HPI History of Present Illness Chief Complaint: [...] controlled with outpatient therapy [facility] Medical History Alcohol use Anxiety Back pain [...] % (Auto) 57.1 Lymph % (Auto) 27.2 [place] % (Auto) 12.8 H Eos % (Auto) [...] Failure of outpatient treatment, Hypertension Disposition Disposition: Acute Care Hospital [facility] What to do if you have Problems For any increased pain, shortness of breath, bleeding, nausea or vomiting, chestpain, or any unexpected problems, contact your Primary Care Provider. Call [facility] ([phone]) or report to the closest Emergency Room. Call 911 if necessary. 09/24/23 0434 <Electronically signed by Michael Lyman DO> Cosigner Signature (if applicable): CC: Dr. Hernandez Mosley MD ~ Signed [facility] Work Phone: 1(162) 463-314811-29-2023 Discharge summary Author Shabbir Birch [facility] June 21, 2023 1:47pm Note Date/Time June 21, 2023 1:42pm [facility] Medical Records Department [address] [place] [address] Instructions for Home/Discharge Instructions 06/21/23 1341 MR#: [id number] Acct: [id number] Name: JUDY REAGAN Rep #:[id number] : 1960 63 From: Shabbir Birch DO [...] 06/21/23 1347<Electronically signed by Shabbir Birch DO>Shabbir [facility] CC: Dr. Hernandez Mosley MD ~ Signed [facility] Work Phone: 1([phone]) 348-104211-29-2023 Procedure [facility] 06-21-2023 History and physical note Author [facility] June 21, 2023 11:27am Note Date/Time June 21, 2023 11:27am [facility] Medical Records Department [address] [place] [address] History & Physical Exam 06/21/23 1126 MR#: [id number] Acct: [id number] Name: JUDY REAGAN Rep #:[id number] : 1960 63 From: Shabbir Birch DO PCP: Dr. Hernandez Mosley MD Status:REG S HI Location: [place] [address] History and Physical Date of Admission: 06/21/23 [facility] [address] [place] [address] [address] [place] [address] OFFICE VISIT Date of Service: 05/31/23 MR#: [id number] Acct: [id number] Name: JUDY REAGAN Rep #: [id number] : 1960 Provider: Dr. Shabbir Birch DO Age/Sex: 63/F Location: [facility] Status: Signed Intake Vital Signs 04/21/2323:12 Height [...] or [address] Sai Casas through [facility]. She states that she had 2 arthroscopic left knee surgeries prior to partial knee. She has xrays in the system. She has pain over the ant/medial side of the left knee. She has tried knee bracing which causes increased knee pain. She has tried icing. She is currently not being treated with the Methotrexate until she establishes with a new psychologist social next year. She has a right TKA [...] Decrease pain Decrease spasm Improve ROM 05/31/23 1208 <Electronically signed by Shabbir Birch DO> Date Shabbir Birch DO Cosigner Signature: Date (if applicable) CC: ~ I [...] Birch DO; Dr. Hernandez Mosley MD~ Signed [facility] Work Phone: 1([phone]) [phone] Discharge summary Author Eder Lamas [facility] April 22, 2023 12:43am Note Date/Time April 21, 2023 11:24pm [facility] Medical Records Department [address] [place] [address] Emergency Department Summary 04/21/23 MR#: [id number] Acct: [id number] Name: JUDY REAGAN Rep #:[id number] : 1960 63 From: Eder Vieira PCP: Dr. Hernandez Mosley MD Status:REG [...] her spine surgeon 2 days ago. PFSH PFSH Medical History Alcohol use Anxiety Back [...] clinician: N/A This note was generated with Vamo dictation software. It may contain incorrectwords, spelling, [...] your Primary Care Provider. Call [facility] ([phone]) or report to the closest Emergency Room. Call 911 if necessary. 04/22/23 0043 <Electronically signed by Eder Vieira> Cosigner Signature (if applicable): CC: Dr. Hernandez Mosley MD ~ Signed [facility] Work Phone: 1([phone]) 990-131803-25-[address] Hernández [facility] October 15, 2022 12:37pm Note Date/Time October 15, 2022 12: 37pm [facility] Medical Records Department [address] [place] [address] Progress Note 10/15/22 1234 MR#: [id number] Acct: [id number] Name: JUDY REAGAN Rep #:[id number] : 1960 62 From: Lydia Hernández MD PCP: Dr. Hernandez Mosley MD Status:ADM I N Location: [place] [address] Subjective Subjective Patient seen and examined. She [...] hospitalist standpoint Charges/Coding Visit Charges Inpatient E&M: 02767 Subs Hosp L2 10/15/22 1237 <Electronically signed by Lydia Hernández MD> Lydia Hernández MD Cosigner Signature (if applicable): CC: ~ Signed [facility] Work Phone: 1(878) 982-706403-24-2023 [facility] October 14, 2022 5:21pm Note Date/Time October 14, 2022 2:1 7pm [facility] Medical Records Department [address] [place] [address] Progress Note 10/14/22 1414 MR#: [id number] Acct: [id number] Name: JUDY REAGAN Rep #:[id number] : 1960 62 From: Lydia Hernández MD PCP: Dr. Hernandez Mosley MD Status:ADM I N Location: [place] WM333-7 Subjective Subjective Patient seen and examined. Still [...] 3650 / 3650 750 / 750 Balance -2004.25 / -2005.25 -450 / -450 Lab [...] (Auto) 71.5 H, Lymph % (Auto) 15.4 L,[place] % (Auto) 10.3 H, Eos % (Auto) [...] primary team. Charges/Coding Visit Charges Inpatient E&M: 20629 Subs Hosp L2 10/14/22 5638 <Electronically signed by Lydia Hernández MD> Lydia Hernández MD Cosigner Signature (if applicable): CC: ~ Signed [facility] Work Phone: 1(474) 614-620403-23-[address] Damian [facility] October 13, 2022 4:56pm Note Date/Time October 13, 2022 4:5 6pm [facility] Medical Records Department [address] [place] [address] Progress Note - Orthopedic 10/13/22 1654 MR#: [id number] Acct: [id number] Name: JUDY REAGAN Rep #:[id number] : 1960 62 From: Reyes Farmer PCP: Dr. Hernandez Mosley MD Status:ADM I N Location: [place] [address]-1 Objective Data Objective Data Judy was seen [...] 3650 / 3650 750 / 750 Balance 2124 / 2123 -2004. / -2004. - / -450 Lab / Micro Data Result Diagrams: 10/12/22 06:38 10/12/22 06:38 Labs: Laboratory Results - last 24 hr 10/13/22 01:06: COVID-19 ([place]) Not Detected 10/13/22 04:30: Urine Color Yellow, Urine Clarity Clear, Urine pH 7.0, Ur Specific [place] 1.010, Urine Protein 15 H, Urine Glucose [...] Goetz MD at 6:19 EDT , 10/13/22 1654 <Electronically signed by Reyes Damian DO> Cosigner Signature (if applicable): CC: ~ Signed [facility] Work Phone: 1(362) 867-981303-23-[address] Hernández [facility] October 13, 2022 4:13pm Note Date/Time October 13, 2022 11: 42[facility] Medical Records Department [address] [place] [address] Progress Note 10/13/22 1136 MR#: [id number] Acct: [id number] Name: JUDY REAGAN Rep #:[id number] : 1960 62 From: Lydia Hernández MD PCP: Dr. Hernandez Mosley MD Status:ADM I N Location: [place] [address] Subjective Subjective Patient seen and examined. SHe [...] 1350 3650 / 3650 Balance 2123 / 212 - / 300 / 300 Lab / Micro Data Result Diagrams: 10/12/22 06:38 10/12/22 06:38 Labs: Laboratory Results - last 24 hr 10/13/22 01:06: COVID-19 ([place]) Not Detected 10/13/22 04:30: Urine Color Yellow, Urine Clarity Clear, Urine pH 7.0, Ur Specific [place] 1.010, Urine Protein 15 H, Urine Glucose [...] primary team. Charges/Coding Visit Charges Inpatient E&M: 99526 Subs Hosp L2 10/13/22 1613 <Electronically signed by Lydia Hernández MD> Lydia Hernández MD Cosigner Signature (if applicable): CC: ~ Signed [facility] Work Phone: 1(463) 263-316603-23-[address] Wolfe [facility] October 13, 2022 4:09am Note Date/Time October 13, 2022 4:0 9am [facility] Medical Records Department [address] [place] [address] Progress Note - Hospitalist 10/13/22 0408 MR#: [id number] Acct: [id number] Name: JUDY REAGAN Rep #:[id number] : 1960 62 From: Liza Wolfe MD PCP: Dr. Hernandez Mosley MD Status:ADM I N Location: [place] [address] Hospitalist Note Patient with fever overnight, improved with tylenol administration. COVID obtained, negative. Will request CXR this AM and UCx/UA to further assess. 10/13/22408 <Electronically signed by Liza Wolfe MD> Cosigner Signature (if applicable): CC: ~ Signed [facility] Work Phone: [phone]) 593-308103-22-[address] Hernández [facility] October 12, 2022 4:17pm Note Date/Time October 12, 2022 1:1 3pm [facility] Medical Records Department [address] [place] [address] Progress Note 10/12/22 1306 MR#: [id number] Acct: [id number] Name: JUDY REAGAN Rep #:[id number] : 1960 62 From: Lydia Hernández MD PCP: Dr. Hernandez Mosley MD Status:ADM I N Location: [place] [address] Subjective Subjective Patient seen and examined. She [...] (Auto) 71.2 H, Lymph % (Auto) 15.2 L,[place] % (Auto) 12.8 H, Eos % (Auto) [...] JOYA at 14:44 EDT , Physical Exam Const alert and [...] primary team. Charges/Coding Visit Charges Inpatient E&M: 33095 Subs Hosp L2 10/12/22 1617 <Electronically signed by Lydia Hernández MD> Lydia Hernández MD Cosigner Signature (if applicable): CC: ~ Signed [facility] Work Phone: 1(343) 881-584803-21-[address] Keller [facility] October 11, 2022 7:33pm Note Date/Time October 11, 2022 7:2 3pm [facility] Medical Records Department [address] [place] [address] Progress Note - Hospitalist 10/11/221915 MR#: [id number] Acct: [id number] Name: JUDY REAGAN Rep #:[id number] : 1960 62 From: Jesse lobo MD PCP: Dr. Hernandez Mosley MD Status:ADM I N Location: [place] [address] Reason for Visit Reason for Visit: Diagnoses [...] DVT: SCDs Charges/Coding Visit Charges Inpatient E&M: 67948 Subs Hosp L3 10/11/221932 <Electronically signed by Jesse Keller MD> Cosigner Signature (if applicable): CC: ~ Signed [facility] Work Phone: 1(793) 831-376503-21-2023 Procedure [facility] 10-11-2022 Procedure [facility]03-21-2023 Procedure note [facility]03-20-2023 History and physical note Author Dr. Damian [facility] October 10, 2022 3:22pm Note Date/Time October 10, 2022 10: 36am [facility] Medical Records Department [address] [place] [address] History & Physical Exam 10/10/22 1035 MR#: [id number] Acct: [id number] Name: JUDY REAGAN Rep #:[id number] : 1960 62 From: Reyes Farmer PCP: Dr. Hernandez Mosley MD Status:PRE I N Location: [facility] 10/10/22 1522 <Electronically signed by Reyes Damian DO> Cosigner Signature (if applicable): CC: Dr. Reyes Damian DO; Dr. Hernandez Mosley MD~ Signed [facility] Work Phone: [phone] History and physical note Author Dr. Damian [facility] October 10, 2022 10:35am Note Date/Time October 10, 2022 10: 35am [facility] Medical Records Department [address] [facility] [place] [address] History & Physical Exam 10/10/22 1034 MR#: [id number] Acct: [id number] Name: JUDY REAGAN Rep #:[id number] : 1960 62 From: Reyes Farmer PCP: Dr. Hernandez Mosley MD Status:PRE I N Location: [facility] History and Physical Addendum MR#: [id number] Acct: [id number] Name:? JUDY REAGAN Rep #: [id number] : 1960 ? ? Provider: Dr. Reyes Damian DO Age/Sex:? 62/F ? ? Location: [facility] Status: Signed Intake Vital Signs ? 12/23/2207:21 [...] decisions made by me, Dr. Reyes Damian, DO JUDY REAGAN is a 62 year old [...] Damian DO; Dr. Hernandez Mosley MD~ Signed [facility] Work Phone: [phone]) 657-763301-30-2023 Miscellaneous Notes* Telephone Encounter - Marzena Elise RN - 08/22/2022 2:30 PM EST Patient left voicemail 08/22/2022 at 0815 Patient contacted at this time Patient requesting Dr. Bower's office to fax medical records to [facility] Medicare Patient's MRI is currently being denied and patient filed an expedited appeal Patient requesting records to be faxed to [phone] Case# [id number] Records faxed at this time per patient's request documented [facility] [place] Miscellaneous Notes* Telephone Encounter - Rosa Greenberg RN - 05/19/2022 11:29 AM EDT Patient notified of surgical date. Follow up scheduled. Surgical confirmation letter sent to patient via [employer] message. * Telephone Encounter - Mavis Russell LPN - 05/19/2022 11:22 AM EDT Patient called. Verified name and date of . Transferred to Kitty delgado in podiatry. Mavis Russell LPN * Telephone Encounter - Rosa Greenberg RN - 05/19/2022 11:10 AM EDT Left patient Vm to contact office and give surgical date. Patient scheduled for XR guided injectionof R 1st MTPJ on 06/06/22 at [facility]. Patient will need a month follow up post injection scheduled when she returns call. documented in this encounterSelect [facility] [place]-26-2022 NoteHNO ID: [id number] Author: RT Jayro(R) Service: ? Author Type: [...] IV DATA: Not applicable SIGNED BY: RT Jayro(Adilene) May 18, 2022 5:07 [facility]10-26-2022 NoteHNO ID: [id number] Author: Yumiko Welsh Service: ? Author Type: [...] as needed. Currently not taking while on [place] for pain amLODIPine (NORVASC) 5 mg tablet [...] < 5 seconds to (more content not included)...[facility]10-26-2022 NoteHNO ID: [id number] Author: Rosa Greenberg RN Service: ? Author [...] [employer] shoes and states they have also helped.[facility]10-26-2022 History of Present illness Narrative * [...] 18, 2022 5:07 PM documented in this encounterSelect [facility] [place]-2022 History of Present illness Narrative* Yumiko Welsh [...] as needed. Currently not taking while on [place] for pain amLODIPine (NORVASC) 5 mg tablet [...] Welsh DPM Podiatry [address] [facility] [address] Dept: [phone] Dept * Rosa Greenberg RN - 05/18/2022 [...] they have also helped. documented in this encounterSelect [facility] [place]10-12-2022 Miscellaneous Notes* Telephone Encounter - Zonia Bernardo [...] pain. Please call patient back. Thank you. Judy#[phone] documented in this encounterSelect [facility] [place]10-10-2022 NoteHNO ID: [id number] Author: Jesus Alberto Harris APRN.[facility] Service: ? Author Type: Nurse Practitioner Type: [...] which included preparing to see the patient, teio-ex-ykmt patient care, completing clinical documentation, obtaining and/or reviewing separately obtained history, performing a medically appropriate examination, counseling and educating the patient/family/caregiver, ordering medications, tests, or procedures, communicating with other HCPs (not separately reported), independently interpreting results (not separately reported), communicating results to the patient/family/caregiver, and care coordination (not separately reported). Jesus Alberto Harris APRN.[facility]opa[facility]10-10-2022 NoteHNO ID: [id number] Author: KAROLYN Wagner Service: Radiology Author Type: [...] BY: KAROLYN Wagner May 02, 2022 9:28 AMMercy [id number] History of Present illness Narrative* KAROLYN Wagner [...] 02, 2022 9:28 AM documented in this encounterSelect [facility] [place]10-06-2022 Miscellaneous Notes* Telephone Encounter - Kitty Bansal - 04/28/2022 9:37 AM EDT Patient returned call, and is rescheduled. * Telephone Encounter - Kitty Bansal - 04/27/2022 10:15 AM EDT Provider out on 05/05/22, left VM & sent mychart message. Ok to r/s to 05/03/22. Please assist in rescheduling when patient calls back. Thanks documented in this encounterSelect [facility] [place]10-03-2022 Miscellaneous Notes* Telephone Encounter - Yessenia Whyte [...] Elias Harris or Philip Castillo in our [place] office to begin evaluation or a work up for a painful prior replacement. She should be able to get xrays of both knees to review them together. Christian Dunne MD * Telephone Encounter - Mavis Russell LPN - 04/25/2022 2:38 PM EDT Patient called. Verified name and date of . Patient has appointment scheduled for May 02, 2022 with X-Rays to be done prior to appointment with Dr. Dunne to discuss Right knee which has hada total knee replacement done. Patient reports having increased pain in left knee which has had a partial replacement done at [facility] several years ago. She is concerned that perhaps the pain is from result of favoring her right knee but would like to verify of no changes. Patient aware likely will need to bee seen separate date/time to discuss left knee and verbalizes understanding but would like to hear from Ortho staff. Please review and advise. documented in this encounterSelect [facility] [place]02-08-2022 NoteHNO ID: [id number] Author: Yumiko Welsh Service: ? Author Type: [...] as needed. Currently not taking while on [place] for pain - amLODIPine (NORVASC) 5 mg [...] performed. ? cc o (more content not included)...[facility] 06-13-2016 History of Past illness Narrative* [...] of this encounter (statuses as of 04/25/2022) [facility] [place] History of Past illness Narrative* Problem Noted [...] of this encounter (statuses as of 04/27/2022) [facility] [place] History of Past illness Narrative* Problem Noted [...] of this encounter (statuses as of 04/28/2022) [facility] [place] History of Past illness Narrative* Problem Noted [...] of this encounter (statuses as of 05/03/2022) [facility] [place] History of Past illness Narrative* Problem Noted [...] of this encounter (statuses as of 05/19/2022) [facility] [place] History of Past illness Narrative* Problem Noted [...] of this encounter (statuses as of 05/19/2022) [facility] [place] History of Past illness Narrative* Problem Noted [...] of this encounter (statuses as of 05/19/2022) [facility] [place] History of Past illness Narrative* Problem Noted [...] of this encounter (statuses as of 08/22/2022) [facility] [place] History of Past illness Narrative* Problem Noted [...] of this encounter (statuses as of 05/28/2023) [facility] note Author Amandeep Madrigal [facility] Note Date/Time October 07, 2024 11: 48[facility] Medical Records Department [address] [place] [address] Pre-Anesthesia Evaluation 10/07/24 1141 MR#: [id number] Acct: [id number] Name: JUDY REAGAN ANN Rep #:[id number] : 1960 64 From: Amandeep Madrigal MD PCP: Dr. Hernandez Mosley MD Status:REG S DC Y Race: C Location: [place] [address]- ASA Classification* ASA Classification ASA Classification: 2 [...] 06/21/23 TSH 1.440 uIU/mL (0.358-3.740) 03/19/24 10:58 08/02/13 COAG PT 12.6 SECONDS (11.7-14.9) 06/19/23 12:39 Pre-Assessment Diagnosis/Proposed Procedure Planned Operative Procedure(s): caudal steroid inj Anesthesia History Anesthesia History - registered respiratory therapist: Anesthesia History - registered respiratory therapist Hx Hospitalization No 10/04/24 14:57 Any Problems [...] take am of surgery PONV PONV - registered respiratory therapist: PONV - registered respiratory therapist Female Yes 10/04/24 14:57 HX of Motion [...] 10/07/24 11:21 Respiratory Assessment Respiratory Assessment - registered respiratory therapist: Respiratory Tract Infection Hx - registered respiratory therapist Hx Respiratory Tract Infection No 10/04/24 14:57 STOP Sleep Apnea STOP Sleep Apnea - registered respiratory therapist: STOP Sleep Apnea - registered respiratory therapist Hx Hypertension Yes: CONTROLLED WITH MED 10/04/24 [...] Tobacco Use History Tobacco Use History - registered respiratory therapist: Tobacco Use History - registered respiratory therapist Tobacco Use Smoking Status Former smoker 10/04/24 14:57 Hx Tobacco Use No 10/04/24 14:57 Years Smoking Packs Smoked per Day Smoking Cessation Date was Yes - quit smoking within 15 10/04/24 14:57 within the last 15 years years Hx Smoking Cessation Date 07/24/17 10/04/24 14:57 Hx Smoking Cessation No 10/04/24 14:57 Counseling Hematologic Medial History Hematologic Hx - registered respiratory therapist: 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 Hx of Blood Transfusion Yes 10/04/24 14:57 [...] confused, unrespo /Reproduction History /Reproductive History - registered respiratory therapist: /Reproductive Hx- registered respiratory therapist Hx Now No 10/04/24 14:57 Gestational Age [...] MD Cosigner Signature: Date CC: ~ Signed [facility] Work Phone: Consult note Author Montse Nicole [facility] Note Date/Time October 07, 2024 12: 09pm [facility] Medical Records Department [address] [place] [address] Anesthesia Postop Eval I 10/07/24 1208 MR#: [id number] Acct: [id number] Name: JUDY REAGAN ANN Rep #:[id number] : 1960 64 From: Montse Nicole CRNA PCP: Dr. Hernandez Mosley MD Status:REG S DC Y Race: C Location: [place] [address] Anesthesia: Postop Eval I Current Vital Signs [...] 10/07/24 1209 <Electronically signed by Montse lindsay POWERHOUSE ELECTRICIAN APPRENTICE> Date _ Montse Nicole POWERHOUSE ELECTRICIAN APPRENTICE Cosigner Signature: Date CC: ~ Signed [facility] Work Phone: Consult note Author Yeimy Duggan [facility] Note Date/Time October 07, 2024 12: 55pm [facility] Medical Records Department [address] [place] [address] Anesthesia Postop Eval II 10/07/24 1226 MR#: [id number] Acct: [id number] Name: JUDY REAGAN ANN Rep #:[id number] : 1960 64 From: Yeimy Duggan PCP: Dr. Hernandez Mosley MD Status:REG S DC Y Race: C Location: [address] Anesthesia Postop Eval I Sum Postop Eval Completion status Anesthesia document: Postop Eval 1 completed: Yes Anesthesia Postop Eval I Summary Anesthesia Postop Eval I Summary: Anesthesia Postop Eval I: Assessment Summary Airway patent Yes 10/07/24 12:09 POWERHOUSE ELECTRICIAN APPRENTICE.LMIL Spontaneous unlabored Yes 10/07/24 12:09 POWERHOUSE ELECTRICIAN APPRENTICE.LMIL respirations Mental status Awake 10/07/24 12:09 POWERHOUSE ELECTRICIAN APPRENTICE.LMIL nausea No 10/07/24 12:09 POWERHOUSE ELECTRICIAN APPRENTICE.LMIL Vomiting No 10/07/24 12:09 POWERHOUSE ELECTRICIAN APPRENTICE.LMIL Anesthesia Postop Eval I: Fluid Summary Crystalloid volume administer 10 10/07/24 12:09 POWERHOUSE ELECTRICIAN APPRENTICE.LMIL (ml) Colloids volume administered ( ml) Blood Product volume administered (ml) Total IV fluid infused 10 10/07/24 12:09 POWERHOUSE ELECTRICIAN APPRENTICE.LMIL Anesthesia Postop Eval I: Summary Notes Anesthesia Complication No 10/07/24 12:09 POWERHOUSE ELECTRICIAN APPRENTICE.LMIL Anesthesia Complication Comment: Post-operative progress note Anesthesia: Postop Eval II Evaluation Mental status: Awake Pain Level: 3 nausea: No Vomiting: No 10/07/24 1226 <Electronically signed by Yeimy chirinos> Date _ Yeimy Arzate Signature: Date CC: ~ Signed [facility] Work Phone: Consult note Author Pardeep Dsouza [facility] Note Date/Time March 10, 2025 8: 06am [facility] Medical Records Department [address] [place] [address] Pre-Anesthesia Evaluation 03/10/25 0802 MR#: [id number] Acct: [id number] Name: JUDY REAGAN Rep #:[id number] : 1960 65 From: Pardeep Dsouza CRNA PCP: Dr. Hernandez Mosley MD Status:REG S DC Y Race: C Location: [place] [address] ASA Classification* ASA Classification ASA Classification: 2 [...] Patient and Chart Anesthesia Focused Assessment* Temperature: 97.0 F Pulse Rate: 73 Blood Pressure: 108/77 Respiratory Rate: 18 Pulse Ox: 99 Oxygen Delivery Method: Room Air Airway Assessment Mouth opens: 2 cm Mallampati Score: II Teeth Condition: Intact Neck Range of motion (ROM): Full ROM Labs Anesthesia Preop lab: CBC WBC 11.0 K/mm3 (4.4-11.0) 12/02/24 13:51 12/02/24 RBC 4.45 M/mm3 (4.2-5.4) 12/02/24 13:51 12/02/24 Hgb 13.7 g/dL (12.0-15.0) 12/02/24 13:51 12/02/24 Hct 41.5 % (37-47) 12/02/24 13:51 12/02/24 Plt Count 328 K/mm3 (150-450) 12/02/24 13:51 12/02/24 CHEMISTRY Potassium 3.7 mmol/L (3.3-5.1) 12/02/24 13:51 12/02/24 Sodium 137 mmol/L (133-145) 12/02/24 13:51 12/02/24 Magnesium 2.3 mg/dL (1.6-2.6) 09/24/23 05:20 09/24/23 Phosphorus 3.3 mg/dL (2.5-4.9) 09/24/23 05:20 09/24/23 BUN 16 mg/dL (4-19) 12/02/24 13:51 12/02/24 Creatinine 0.82 mg/dL (0.70-1.20) 12/02/24 13:51 12/02/24 Glucose 81 mg/dL (70-99) 12/02/24 13:51 12/02/24 POC Glucose 119 mg/dL (74-106) H 06/21/23 09:50 06/21/23 TSH 2.390 uIU/mL (0.300-4.200) 12/02/24 13:51 11/21 09/17 COAG PT 12.6 SECONDS (11.7-14.9) 06/19/23 12:39 Pre-Assessment Diagnosis/Proposed Procedure Planned Operative Procedure(s): RIGHT LUMBAR TRANSFORAMINAL EPIDURAL STEROID INJECTION L4 L5 S1 Anesthesia History Anesthesia History - registered respiratory therapist: Anesthesia History - registered respiratory therapist Hx Hospitalization No 03/06/25 11:47 Any Problems With Anesthesia No 03/06/25 11:47 Cholinesterase deficiency No 03/06/25 11:47 You/Your Family Experience No 03/06/25 11:47 fever (hyperthermia) with Relationship Recent Exposure to Contagious No 03/10/25 07:32 Disease Does patient have nerve No 03/06/25 11:47 stimulator Patient instructed to have device shut off --Does patient have Pacemaker No 03/10/25 07:32 or ICD? When Was Last Pacemaker Check QUESTION #4 FULL TEXT: You/Your Family Experience fever (hyperthermia) with Anesthesia Any additional information?: No Last Oral Intake Last Oral intake: Last Oral Intake NPO since 20:00 03/10/25 07:32 Meds taken in AM with sips of water? Meds patient instructed to take am of surgery Any additional information?: No PONV PONV - registered respiratory therapist: PONV - registered respiratory therapist Female Yes 03/06/25 11:47 HX of Motion Sickness No 03/06/25 11:47 HX of N/V After Surgery No 03/06/25 11:47 Non-Smoker Yes 03/06/25 11:47 Duration of Surgery greater No 03/06/25 11:47 than 60 minutes Number of Risk Factors 2 03/06/25 11:47 PONV Score Moderate Risk 03/06/25 11:47 Any additional information?: No Height & Weight Height & Weight: Anesthesia: Height & Weight Height 5 ft 4 in 03/10/25 07:32 Weight: 76 kg 03/10/25 07:32 Body Mass Index (BMI) 28.8 03/10/25 07:32 Respiratory Assessment Respiratory Assessment - registered respiratory therapist: Respiratory Tract Infection Hx - registered respiratory therapist Hx Respiratory Tract Infection No 03/06/25 11:47 Any additional information?: No STOP Sleep Apnea STOP Sleep Apnea - registered respiratory therapist: STOP Sleep Apnea - registered respiratory therapist Hx Hypertension Yes: CONTROLLED WITH MED 03/06/25 11:47 Hx Sleep Apnea No 03/06/25 11:47 CPAP Yes 10/07/24 12:04 BIPAP Do you snore loudly (louder No 03/06/25 11:47 than talking or can be heard Do you often feel tired/ Yes 03/06/25 11:47 fatigued/ sleepy during daytime? Has anyone observed you stop No 03/06/25 11:47 breathing during sleep? STOP Results Positive 03/06/25 11:47 QUESTION #5 FULL TEXT : Do you snore loudly (louder than talking or can be heard through closed doors)? Any additional information?: No Tobacco Use History Tobacco Use History - registered respiratory therapist: Tobacco Use History - registered respiratory therapist Tobacco Use Smoking Status Former smoker 03/06/25 11:47 Hx Tobacco Use No 03/06/25 11:47 Years Smoking Packs Smoked per Day Smoking Cessation Date was Yes - quit smoking within 15 03/06/25 11:47 within the last 15 years years Hx Smoking Cessation Date 07/24/17 03/06/25 11:47 Hx Smoking Cessation No 03/06/25 11:47 Counseling Any additional information?: No Hematologic Medial History Hematologic Hx - registered respiratory therapist: 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 Specify any problems Hx of Preganancy in last 3 No 03/06/25 11:47 Months Nurse Filling Out Transfusion DSCHRIBER 03/06/25 11:47 & Questions: Date: 03/06/25 03/06/25 11:47 Time: 11:49 03/06/25 11:47 Patient unable to answer at this time (ie. confused, unrespo Any additional information?: No /Reproduction History /Reproductive History - registered respiratory therapist: /Reproductive Hx- registered respiratory therapist Hx Now Gestational Age (in weeks): EDC: Hx Hx Para Hx Section SAB No 03/06/25 11:47 Any additional information?: No Active Medications Active Medications: Current Medications Generic Name Dose Route Start Last Admin Trade Name Freq PRN Reason Stop Dose Admin Lactated Ringer's 1,000 mls @ 15 mls/hr 03/10/25 07:30 03/10/25 07:42 IV 15 mls/hr .Q48H SARAH Administration PFSH Medical History (Updated 03/06/25 @ 11:52 by Roma Carrera) Pain History of Crohn's disease Chronic pain GERD (gastroesophageal reflux disease) History of steroid therapy Wears glasses Post-menopausal Anxiety Alcohol use Hx of psoriatic arthritis Restless legs Back pain History of diverticulitis Hx of peptic ulcer Former smoker History of pain when walking Hypertension Osteoarthritis Home Medications ?Medication ?Instructions ?Recorded ?Last Taken ?Type venlafaxine 37.5 mg tablet 75 mg PO QHS depression 03/09/25 History pantoprazole 40 mg tablet,delayed 40 mg PO DAILY GERD 08/09/22 03/10/25 History release ramipril 10 mg capsule 10 mg PO BID HEART 08/09/22 03/09/25 History ropinirole 0.25 mg tablet 0.5 mg PO QHS RESTLESS LEGS 08/09/22 03/09/25 History furosemide 20 mg tablet 20 mg PO DAILY 01/12/2302/21 History acidophilus 25 million 2 tab PO BID #0 tabs 2 4 03/09/25 Rx cell-pectin, citrus 100 mg tablet tramadol 50 mg tablet 50 - 100 mg (1 - 2 x 50 mg) PO Q8H 09/26/23 03/09/25 Rx PRN pain #10 tabs amlodipine 5 mg tablet (Norvasc) 5 mg PO QHS 11/09/23 03/09/25 History ustekinumab 90 mg/mL subcutaneous 90 mg subcut Q8W #1 mL 03/11/24 Unknown Rx syringe (Stelara) hyoscyamine sulfate 0.125 mg tablet 0.125 mg PO BID-QI D PRN dyspepsia 08/13/24 Unknown Rx #30 tabs dicyclomine 20 mg tablet 20 mg PO TID PRN abdominal p ain 10/04/24 Unknown History duloxetine 30 mg capsule,delayed 30 mg PO DAILY #30 ca ps 11/18/24 03/09/25 Rx release Allergy/AdvReac Type Severity Reaction Status Date / Time adhesive tape Allergy Severe blistering Verified 03/10/25 07:50 bee venom protein (honey bee) Allergy Swelling Verified 03/10/25 07:41 Family History Other Breast cancer CAD (coronary [...] in: walking frequency: 1-2 times per week Prior Cardiac Testing/Procedures Prior Cardiac Testing/Procedures: Echocardiogram and Stress Test Review of Systems (Anesthesia) ROS Narrative System reviewed and no additional complaints, except as documented. 03/10/25 08 <Electronically signed by Pardeep rutledge CRNA> Date _ Pardeep Lylesigner Signature: Date CC: ~ Signed [facility] Work Phone: Discharge summary Author Dr. Damian [facility] October 15, 2022 2:00pm Note Date/Time October 15, 2022 2:0 0pm [facility] Medical Records Department [address] [place] [address] Instructions for Home/Discharge Instructions 10/15/22 1358 MR#: [id number] Acct: [id number] Name: JUDY REAGAN Rep #:[id number] : 1960 62 From: Reyes Farmer PCP: [...] MD; Dr. Hernandez Mosley MD ~ Signed [facility] Work Phone: Discharge summary Author Dr. Damian [facility] October 15, 2022 2:03pm Note Date/Time October 15, 2022 2:0 3pm [facility] Medical Records Department [address] [place] [address] Discharge Summary 10/15/22 1400 MR#: [id number] Acct: [id number] Name: JUDY REAGAN Rep #:[id number] : 1960 62 From: Reyes Farmer PCP: Dr. Hernandez Mosley MD Status:ADM I N [place] [facility] [place]Y110-1 Providers Date of Admission: 10/11/22 Primary Care Physician: Dr. Hernandez Mosley MD Attending Physician: This patient was admitted on Monday. She underwent 360 degree fusion at the [...] Damian DO; Dr. Hernandez Mosley MD~ Signed [facility] Work Phone: Discharge summary Author [facility] September 24, 2023 4:34am Note Date/Time September 24, 2023 3:12 am [facility] Medical Records Department [address] [place] [address] Emergency Department Summary 09/24/23 MR#: [id number] Acct: [id number] Name: JUDY REAGAN ANN Rep #:[id number] : 1960 63 From: Michael Lyman DO PCP: Dr. Hernandez Mosley MD Status:ADM I N Location: [place] [address] HPI History of Present Illness Chief Complaint: [...] controlled with outpatient therapy shepresents for evaluation [facility] Medical History Alcohol use Anxiety Back [...] % (Auto) 57.1 Lymph % (Auto) 27.2 [place] % (Auto) 12.8 H Eos % (Auto) [...] Failure of outpatient treatment, Hypertension Disposition Disposition: Acute Care Hospital [facility] What to do if you have Problems For any increased pain, shortness of breath, bleeding, nausea or vomiting, chestpain, or any unexpected problems, contact your Primary Care Provider. Call [facility] ([phone]) or report to the closest Emergency Room. Call 911 if necessary. 09/24/23 1066 <Electronically signed by Michael Lyman DO> Cosigner Signature (if applicable): CC: Dr. Hernandez Mosley MD ~ Signed [facility] Work Phone: Evaluation noteNo assessment information available [facility] Work Phone: Evaluation note* Diagnosis Pain in both knees, unspecified chronicity- Primary [facility] Diagnosis Pain in both knees, unspecified chronicity [facility] Diagnosis Hallux limitus, acquired, unspecified laterality- Primary [facility] Diagnosis Acquired hallux limitus of right foot- Primary Acquired hallux limitus of right foot [facility]* Diagnosis Onset Date Resolution Status DDD (degenerative disc disease), lumbar acute Degeneration of L4-L5 intervertebral disc acute [facility] Work Phone: Evaluation note* Diagnosis Onset Date Resolution Status DDD (degenerative disc disease), lumbar acute Degeneration of L4-L5 intervertebral disc acute Degeneration of L4-L5 intervertebral disc acute [facility] Work Phone: Evaluation note* Diagnosis Onset Date Resolution Status DDD (degenerative disc disease), lumbar acute Degeneration of L4-L5 intervertebral disc acute Degeneration of L4-L5 intervertebral disc acute DDD (degenerative disc disease), lumbar acute Essential hypertension chron ic [facility] Work Phone: Evaluation note* Diagnosis Onset Date Resolution Status S/P lumbar fusion acute S/P lumbar fusion acute Trochanteric bursitis of left hip acute [facility] Work Phone: Evaluation note* Diagnosis Hallux limitus, acquired, unspecified laterality [facility] Diagnosis Onset Date Resolution Status S/P lumbar fusion acute Trochanteric bursitis of left hip acute S/P lumbar fusion acute Status post left partial knee replacement acute Trochanteric bursitis of left hip acute History of arthroplasty of knee acute Internal derangement of knee joint acute [facility] Work Phone: Evaluation note* Diagnosis Onset Date Resolution Status History of arthroplasty of knee acute Internal derangement of knee joint acute Pseudogout acute Orthopedic aftercare noneact adeel Iliotibial band syndrome affecting left lower leg acute Orthopedic aftercare acute Pseudogout acute Iliotibial band syndrome affecting left lower leg acute Orthopedic aftercare acute Pseudogout acute [facility] Work Phone: Evaluation note* Diagnosis Onset Date Resolution Status History of arthroplasty of knee acute Internal derangement of knee joint acute Pseudogout acute Orthopedic aftercare noneact adeel Iliotibial band syndrome affecting left lower leg acute Orthopedic aftercare acute Pseudogout acute Iliotibial band syndrome affecting left lower leg acute Orthopedic aftercare acute Pseudogout acute Acute diverticulitis acute Failure of outpatient treatment acute Hypertension [facility] Work Phone: Evaluation note* Diagnosis Onset Date [...] outpatient treatment acute GI bleed acute Hypertension [facility] Work Phone: Evaluation note* Diagnosis Onset Date Resolution Status Pseudogout acute Orthopedic aftercare noneact adeel Iliotibial band syndrome affecting left lower leg acute Orthopedic aftercare acute Pseudogout acute Iliotibial band syndrome affecting left lower leg acute Orthopedic aftercare acute Pseudogout acute Acute diverticulitis acute Failure of outpatient treatment acute Hypertension chronic GI bleed resolved Acute diverticulitis acute Crohn's disease acute [facility] Work Phone: Evaluation note* Diagnosis Onset Date [...] leg acute Pseudogout acute Psoriatic arthritis chronic [facility] Work Phone: Evaluation note* Diagnosis Onset Date Resolution Status S/P lumbar fusion acute Trochanteric bursitis of left hip acute S/P lumbar fusion acute Status post left partial knee replacement acute Trochanteric bursitis of left hip acute History of arthroplasty of knee acute Internal derangement of knee joint acute Pseudogout acute Orthopedic aftercare noneact adeel [facility] Work Phone: Evaluation note* Diagnosis Onset Date Resolution Status Admit Date Crohn's disease acute March 182024 9:51am [facility] Work Phone: History and physical note Author Jennifer Dunne [facility] Note Date/Time March 25, 2025 6:47pm [facility] Medical Records Department [address] [place] [address] H&P Exam - Hospitalist 03/25/25 1840 MR#: [id number] Acct: [id number] Name: JUDY REAGAN ANN Rep #:[id number] : 1960 65 From: Jennifer Dunne MD PCP: Dr. Hernandez Mosley MD Status:ADM I N [place] [facility] [id number] HPI - General General Date of Admission: 03/25/25 Date of Service: 03/25/25 Chief Complaint: Lower abdominal pain HPI Narrative JUDY REAGAN, is a 65-year-old female with a history of GERD, restless leg syndrome,depression, Crohn's disease presented [facility] ED 03/25/2025 with diffuse lower abdominal pain worse on the right that started yesterday gradually. She was placed on Cipro and Flagyl and symptoms worsened so she cameto the ED. Does follow with Dr. Friend and was diagnosed with Crohn's disease, she is now on Stelara. She notes low-grade temp with chills and nausea with no vomiting. In the ED temp 99.9, heart rate 127 blood pressure 123/79, respiratory rate 18 and pulse ox 98% on room air. CMP with BUN of 11 and creatinine 0.89, alk phos 110 and glucose 120, CBC with a white blood cell countof 17, hemoglobin 14.4. Lipase 32, UA negative and CT of the abdomen read as acute uncomplicated sigmoid diverticulitis. Patient received pain medication and Zosyn in the ED but was still very uncomfortable so hospitalist contacted for admission. Patient evaluated at bedside. She reports history as above withpain starting yesterday and not improving despite trying Cipro and Flagyl, has aheadache and has been nauseous with poor p.o. intake since yesterday, notes she has had gas pains and she will feel the need to have a bowel movement but without much out, no overt diarrhea or constipation, no changes in bladder. In the ED he received pain medication and antinausea medication, nausea is slowly subsiding and feels like she would like to try to eat something, still having pain but is beginning to have some relief with the pain medication. Notes the pain is in her lower abdomen and wraps around to her back, denies epigastric pain [facility] Medical History Pain History of Crohn's disease Chronic pain GERD (gastroesophageal reflux disease) History of steroid therapy Wears glasses Post-menopausal Anxiety Alcohol use Hx of psoriatic arthritis Restless legs Back pain History of diverticulitis Hx of peptic ulcer Former smoker History of pain when walking Hypertension Osteoarthritis Home Medications ?Medication ?Instructions ?Recorded ?Last Taken ?Type venlafaxine 37.5 mg tablet 75 mg PO QHS depression 03/09/25 History pantoprazole 40 mg tablet,delayed 40 mg PO DAILY GERD 08/09/22 03/10/25 History release ramipril 10 mg capsule 10 mg PO BID HEART 08/09/22 03/09/25 History ropinirole 0.25 mg tablet 0.5 mg PO QHS RESTLESS LEGS 08/09/22 03/09/25 History furosemide 20 mg tablet 20 mg PO DAILY 01/12/2302/21 History acidophilus 25 million 2 tab PO BID #0 tabs 4 03/09/25 Rx cell-pectin, citrus 100 mg tablet tramadol 50 mg tablet 50 - 100 mg (1 - 2 x 50 mg) PO Q8H 09/26/23 03/09/25 Rx PRN pain #10 tabs amlodipine 5 mg tablet (Norvasc) 5 mg PO QHS 11/09/23 03/09/25 History ustekinumab 90 mg/mL subcutaneous 90 mg subcut Q8W #1 mL 03/11/24 Unknown Rx syringe (Stelara) dicyclomine 20 mg tablet 20 mg PO TID PRN abdominal p ain 10/04/24 Unknown History duloxetine 30 mg capsule,delayed 30 mg PO DAILY #30 ca ps 11/18/24 03/09/25 Rx release tizanidine 4 mg tablet 4 mg PO BID PRN PRN muscle s pasm 03/25/25 Unknown History Allergy/AdvReac Type Severity Reaction Status Date / Time adhesive tape Allergy Severe blistering Verified 03/25/25 14:10 bee venom protein (honey bee) Allergy Swelling Verified 03/25/25 14:10 Family History Other Breast cancer CAD (coronary [...] 1-2 times per week ROS ROS Narrative General: Reports low-grade temp at home HENT: Limited to headache, denies stuffy nose, denies sore throat EYES: Denies changes in vision Resp: Denies cough, denies shortness of breath Cardiac: Denies chest pain GI: Abdominal pain in the lower abdomen, feeling like she needs to have a bowel movement without much coming out, nausea, vomiting : Denies changes in urination Extremity: Denies swelling MSK: Denies weakness Neuro: Denies any numbness/tingling Heme: Denies any bleeding or bruising Skin: Denies rashes Psychiatric: No complaints voiced Vital Signs Vital Signs Vital Signs: 03/25/25 14:09 03/25/25 15:08 03/25/25 16:00 Temperature 99.9 F H Temperature Source Oral Pulse Rate 127 H 85 96 Respiratory Rate 18 18 18 Blood Pressure 123/79 H 151/91 H 148/78 H Blood Pressure Mean 93 111 101 Pulse Ox 98 99 100 Oxygen Delivery Method Room Air Room Air Room Air 03/25/25 17:00 03/25/25 18:00 03/25/25 18:16 Temperature 99.2 F H Temperature Source Pulse Rate 96 74 97 Respiratory Rate 22 H 15 15 Blood Pressure 149/84 H 117/56 L 117/96 H Blood Pressure Mean 105 76 103 Pulse Ox 97 93 94 Oxygen Delivery Method Room Air Room Air Weight Weight: 75.2 kg Body Mass Index (BMI) 28.4 Physical Exam Narrative General: Alert, oriented, no apparent distress HEENT: Atraumatic, normocephalic Eyes: Anicteric, normal conjunctiva, extraocular movements grossly intact Neck: Supple Respiratory: Clear to auscultation bilaterally, normal respiratory effort Cardiovascular: Regular rate and rhythm GI: Soft, nondistended, tenderness in both lower quadrants without rebound, guarding, rigidity, positive bowel sounds Extremities: No edema Musculoskeletal: Moving all extremities Neuro: No overt focal neurological deficits Skin: No rashes appreciated Psych: Cooperative Results Lab / Micro Data 03/25/25 14:55 03/25/25 14:55 Labs: Laboratory Results - last 24 hr 03/25/25 14:55: WBC 17.4 H, RBC 4.60, Hgb 14.4, Hct 42.0, MCV 91.3, MCH 31.3, MCHC 34.3, RDW Std Deviation 41.3, RDW Coeff of Caity 12.5, Plt Count 345, MPV 9.9, Immature Gran % (Auto) 0.600, Neut % (Auto) 80.0 H, Lymph % (Auto) 7.6 L, [place] % (Auto) 11.4 H, Eos % (Auto) 0.1, Baso % (Auto) 0.3, Absolute Neuts (auto) 13.9 H, Absolute Lymphs (auto) 1.32, Nucleated RBC % 0, Differential Comment SCANNED, Platelet Estimate ADEQUATE, Sodium 134, Potassium 3.7, Chloride 94 L, Carbon Dioxide 26.3, Anion Gap 14, BUN 11, Creatinine 0.89, Estim Creat Clear Calc 64.24, Est GFR (MDRD) Non-Af 73, BUN/Creatinine Ratio 12.8, Glucose 120 H, Calcium 9.5, Total Bilirubin 0.88, AST 20, ALT 26, Alkaline Phosphatase 110 H, Total Protein 7.5, Albumin 4.5, Globulin 2.9, Albumin/Globulin Ratio 1.5, [id number] 03/25/25 16:24: Urine Color Yellow, Urine Clarity Clear, Urine pH 7.0, Ur Specific [place] 1.005, Urine Protein Negative, Urine Glucose (UA) Normal, UrineKetones Negative, Urine Occult Blood Negative, Urine Nitrite Negative, Urine Bilirubin Negative, Urine Urobilinogen Normal, Ur Leukocyte Esterase Negative Imaging Radiology Impression Abdomen/Pelvis CT 03/25/25 16:12 IMPRESSION: 1. Acute uncomplicated sigmoid diverticulitis. 2. Diffuse hepatic steatosis. Reading Location: [facility] Assessment & Plan Assessment/Plan (1) Acute diverticulitis: PLAN: Plan #Acute uncomplicated diverticulitis - CT of the abdomen read as acute uncomplicated sigmoid diverticulitis - Patient still uncomfortable after pain medication and Zosyn so hosp contacted for admission -Continue zosyn -IVF - Supportive care - Advance diet as tolerated #GERD -Continue PPI # Restless leg syndrome -continue patient's home medication regimen #Depression/anxiety -Continue home medications # Crohn's disease - Does have history of Crohn's, is on Stelara and follows with Dr. Godwin - Imaging consistent with diverticulitis at this time, if patient does not beginto improve can consider GI consult #DVT ppx: SCDs Jennifer Dunne MD Charges/Coding Visit Charges Inpatient E&M: 41759 Init Hosp L1 03/25/25 8604 <Electronically signed by Jennifer Dunne MD> Cosigner Signature (if applicable): CC: Dr. Jennifer Dunne MD; Dr. Hernandez Mosley MD~ Signed [facility] Work Phone: Hospital Discharge instructions Additional Instructions Left shoulder and left hip x-ray negative. Continue your tramadol at home. Muscle relaxer as needed. Follow-up with your doctor.[facility] Work Phone: Reason for referral (narrative)* Diagnostic Procedure Only (Routine) - Pending Review Specialty Diagnoses / Procedures Referred By Contac t Referred To Contact XR IMAGING Diagnoses Pain in both knees, unspecified chronicity Procedures XR KNEE POST OP 3V AP/LAT/MERCHANT BILATERAL RADIOLOGIC EXAMINATION KNEE 3 VIEWS Jesus Alberto Harris APRN.CNP [address] [place] [address] Xr Imaging Referral ID Status Reason Start Date Expiration Date Visits Requested Visits Authorized [id number] Pending Review Auto-Generat ed Referral 04/27/2022 05/26/2023 1 1 [facility] for referral (narrative)* Diagnostic Procedure Only (Routine) - Closed Specialty Diagnoses / Procedures Referred By Contac t Referred To Contact XR IMAGING Diagnoses Pain in both knees, unspecified chronicity Procedures XR KNEE POST OP 3V AP/LAT/MERCHANT BILATERAL RADIOLOGIC EXAMINATION KNEE 3 VIEWS Jesus Alberto Harris APRN.CNP [address] [place] [address] Xr Imaging Referral ID Status Reason Start Date Expiration Date V isits Requested Visits Authorized [id number] Closed Auto-Generate d Referral 04/27/2022 05/26/2023 1 1 [facility] for referral (narrative)* Diagnostic Procedure Only (Routine) - Closed Specialty Diagnoses / Procedures Referred By Contac t Referred To Contact XR IMAGING Diagnoses Hallux limitus, acquired, unspecified laterality Procedures XR FOOT GENERAL 3V AP/LAT/OBL RIGHT RADEX FOOT COMPLETE MINIMUM [address] [place] [place] [address] Xr Imaging Referral ID Status Reason Start Date Expiration Date V isits Requested Visits Authorized [id number] Closed Auto-Generate d Referral 05/18/2022 06/17/2023 1 1 [facility] for referral (narrative)* Diagnostic Procedure Only (Routine) - Closed Specialty Diagnoses / Procedures Referred By Contac t Referred To Contact XR IMAGING Diagnoses Hallux limitus, acquired, unspecified laterality Procedures XR FOOT GENERAL 3V AP/LAT/OBL RIGHT RADEX FOOT COMPLETE MINIMUM 3 VIEWS Yumiko Welsh [address] [place] [address] [place] [address] Referral ID Status Reason Start Date Expiration Date V isits Requested Visits Authorized [id number] Closed Auto-Generate d Referral 05/18/2022 06/17/2023 1 1 [facility] for referral (narrative)No reason for referral information availableWPark[facility]: [facility] Narrative* Diagnostic Procedure Only (Routine) - Closed Specialty Diagnoses / Procedures Referred By Contac t Referred To Contact XR IMAGING Diagnoses Pain in both knees, unspecified chronicity Procedures XR KNEE POST OP 3V AP/LAT/MERCHANT BILATERAL RADIOLOGIC EXAMINATION KNEE 3 VIEWS Jesus Alberto Harris APRN.[facility] [address] [address] Xr Imaging Referral ID Status Reason Start Date Expiration Date V isits Requested Visits Authorized [id number] Closed Auto-Generate d Referral 04/27/2022 05/26/2023 1 1 [facility] for visit Narrative* Diagnostic Procedure Only (Routine) - Closed Specialty Diagnoses / Procedures Referred By Contac t Referred To Contact XR IMAGING Diagnoses Hallux limitus, acquired, unspecified laterality Procedures XR FOOT GENERAL 3V AP/LAT/OBL RIGHT RADEX FOOT COMPLETE MINIMUM 3 VIEWS Yumiko Welsh [address] [place] [address] [place] [address] Referral ID Status Reason Start Date Expiration Date V isits Requested Visits Authorized [id number] Closed Auto-Generate d Referral 05/18/2022 06/17/2023 1 1 [facility] Summary Purpose Family History Relationship Condition Age at Onset Recorded Date/T jae Not Specified Coronary artery disease Unknown Cardiac disease Unknown Malignant neoplasm of breast Unknown Hypertension Unknown Advance Directives Advance Directive Response Recorded Date/ Time Advance Directives No May 11:51pm Living Will Yes January 16, 2020 10:39pm Power of High School Principal Yes January 15 10:39pm Advance Directive Response Recorded Date/ Time Advance Directives No May 11:51pm Living Will Yes December 22, 2021 8 :51am Power of High School Principal Yes December 22, 2021 8:51am Advance Directive Response Recorded Date/ Time Advance Directives No May 11:51pm Living Will Yes December 22, 2021 8 :51am Power of High School Principal Yes December 22, 2021 8:51am Name of Medical Power of High School Principal DASIA REAGAN December 22, 2021 8:51am Documents on File Type Date Recorded Patient [employer] Super[employer] Expl anation Advance Directive(s) 01/23/2014 11:01 AM Documents on File Type Date Recorded Patient [employer] Supervisor Expl anation Advance Directive(s) 01/23/2014 11:01 AM Advance Directive Response Recorded Date/ Time Advance Directives No May 10:51pm Living Will Yes August 09 11:08am Power of High School Principal Yes August 09, 2022 11:08am Advance Directive Response Recorded Date/ Time Name of Medical Power of High School Principal DASIA August 09, 2022 11:08am Advance Directives No May 10:51pm Living Will Yes August 09 11:08am Power of High School Principal Yes August 09, 2022 11:08am Advance Directive Response Recorded Date/ Time Name of Medical Power of High School Principal DASIA August 09, 2022 11:08am Advance Directives No May 10:51pm Living Will Yes September 27, 2022 1:56pm Power of High School Principal Yes September 27 1:56pm Advance Directive Response Recorded Date/ Time Name of Medical Power of High School Principal DASIA August 09, 2022 12:08pm Name of Medical Power of High School Principal Dasia Bossofya October 11, 2022 5:54pm Advance Directives No May 11:51pm Living Will Yes October 11, 2022 5:54pm Power of High School Principal Yes October 11 5:54pm Advance Directive Response Recorded Date/ Time Name of Medical Power of High School Principal Dasia April 21, 2023 11:18pm Advance Directives No May 11:51pm Living Will Yes April 21, 2023 11:18pm Power of High School Principal Yes March 11:18pm Advance Directive Response Recorded Date/ Time Name of Medical Power of High School Principal Dasia April 21, 2023 10:18pm Name of Medical Power of High School Principal SPOUSE June 16, 2023 1:12pm Advance Directives No May 10:51pm Living Will Yes June 16, 023 1:12pm Power of High School Principal Yes June 16, 2023 1:12pm Advance Directive Response Recorded Date/ Time Name of Medical Power of High School Principal SPOUSE June 16, 2023 1:12pm Advance Directives No May 10:51pm Living Will Yes June 16, 023 1:12pm Power of High School Principal Yes June 16, 2023 1:12pm Advance Directive Response Recorded Date/ Time Name of Medical Power of High School Principal SPOUSE June 16, 2023 1:12pm Advance Directives No May 10:51pm Living Will Yes September 24, 2023 12:53am Power of High School Principal No September 23 12:53am Advance Directive Response Recorded Date/ Time Name of Medical Power of High School Principal SPOUSE June 16, 2023 1:12pm Name of Medical Power of High School Principal Dasia Boss September 24, 2023 4:34am Advance Directives No May 10:51pm Living Will Yes September 24, 2023 4:34am Power of High School Principal Yes September 23 4:34am Advance Directive Response Recorded Date/ Time Name of Medical Power of High School Principal Dasia Reagan September 24, 2023 5:34am Advance Directives No May 11:51pm Living Will Yes September 24, 2023 5:34am Power of High School Principal Yes September 23 5:34am Advance Directive Response Recorded Date/ Time Name of Medical Power of High School Principal SPOUSE November 09, 2023 3:23pm Advance Directives No May 11:51pm Living Will Yes November 09, 2023 3:23pm Power of High School Principal Yes November 08 3:23pm Name of Medical Power of High School Principal Dasia Reagan September 24, 2023 5:34am Advance Directive Response Recorded Date/ Time Living Will No October 04, 2024 2:57pm Power of High School Principal No October 04 2:57pm Advance Directives No November 24, 2023 2:04pm Advance Directive Response Recorded Date/ Time Living Will No October 04, 2024 2:57pm Do you have a Healthcare Power of High School Principal? No October 04, 2024 2:57pm Advance Directives No November 24, 2023 2:04pm Advance Directive Response Recorded Date/ Time Do you have a Healthcare Power of High School Principal? Yes March 06, 2025 11:47am Advance Directives No November 24, 2023 2:04pm Advance Directive Response Recorded Date/ Time Do you have a Healthcare Power of High School Principal? Yes March 06, 2025 11:47am Do you have a Healthcare Power of High School Principal? Yes March 25, 2025 3:12pm Advance Directives No November 24, 2023 2:04pm [...] Crohn's disease October 28, 2024 8:50 am Chief Complaint Admit Date RIGHT LUMBAR TRANSFORAMINAL EPIDURAL [place] INJEC March 10, 2025 7:12am Chief Complaint Admit Date RIGHT LUMBAR TRANSFORAMINAL EPIDURAL [place] INJEC March 10, 2025 7:12am 4 M FU March 18, 2025 9: 51am INT LABS, PT JUST LEFT OFFICE February 10:45am Reason for Visit Admit Date Crohn's disease March 18, 2025 9: 51am Chief Complaint Admit Date RIGHT LUMBAR TRANSFORAMINAL EPIDURAL [place] INJEC March 10, 2025 7:12am 4 M FU March 18, 2025 9: 51am INT LABS, PT JUST LEFT OFFICE February 10:45am Abd pain March 25, 2025 2:08pm Chief Complaint Admit Date RIGHT LUMBAR TRANSFORAMINAL EPIDURAL [place] INJEC March 10, 2025 7:12am 4 M FU March 18, 2025 9: 51am INT LABS, PT JUST LEFT OFFICE February 10:45am ACUTE UNCOMPLICATED DIVERTICULITIS Septe mb2024 6:40pm Reason for Visit Admit Date Crohn's disease March 18, 2025 9: 51am Acute diverticulitis March 25, 2025 6:40pm Crohn's disease March 25, 2025 6:40pm Intractable abdominal pain March 6:40pm Additional Source Comments INFORMATION SOURCE (unrecogn ized section and content) DATE CREATED AUTHOR 01/16/2018 [facility] DATE CREATED AUTHOR AUTHOR'S ORGANIZ ATION 01/16/2018 [facility] DATE CREATED AUTHOR AUTHOR'S ORGANIZ ATION 01/19/2018 [facility] DATE CREATED AUTHOR AUTHOR'S ORGANIZ ATION 07/11/2019 [facility] DATE CREATED AUTHOR AUTHOR'S ORGANIZ ATION 10/06/2021 [facility] DATE CREATED AUTHOR AUTHOR'S ORGANIZ ATION 06/06/2022 [facility] DATE CREATED AUTHOR AUTHOR'S ORGANIZ ATION 08/23/2022 [facility] DATE CREATED AUTHOR AUTHOR'S ORGANIZ ATION 03/25/2025 [facility] Source Comments (unrecognize d section and content) In the event this informatio n is protected by the Federal Confidentiality of Alcohol and Drug Abuse Patient Records regulations: The Federal rules restrict any use of the information to criminally investigate or prosecute any alcohol or drug abuse patient.[facility] [place] the event this information is protected by the Federal Confidentiality of Alcohol and Drug Abuse Patient Records regulations: The Federal rules restrict any use of the information to criminally investigate or prosecute any alcohol or drug abuse patient.[facility] [place] the event this information is protected by the Federal Confidentiality of Alcohol and Drug Abuse Patient Records regulations: The Federal rules restrict any use of the information to criminally investigate or prosecute any alcohol or drug abuse patient.[facility] [place] the event this information is protected by the Federal Confidentiality of Alcohol and Drug Abuse Patient Records regulations: The Federal rules restrict any use of the information to criminally investigate or prosecute any alcohol or drug abuse patient.[facility] [place] the event this information is protected by the Federal Confidentiality of Alcohol and Drug Abuse Patient Records regulations: The Federal rules restrict any use of the information to criminally investigate or prosecute any alcohol or drug abuse patient.[facility] [place] the event this information is protected by the Federal Confidentiality of Alcohol and Drug Abuse Patient Records regulations: The Federal rules restrict any use of the information to criminally investigate or prosecute any alcohol or drug abuse patient.[facility] [place] the event this information is protected by the Federal Confidentiality of Alcohol and Drug Abuse Patient Records regulations: The Federal rules restrict any use of the information to criminally investigate or prosecute any alcohol or drug abuse patient.[facility] [place] the event this information is protected by the Federal Confidentiality of Alcohol and Drug Abuse Patient Records regulations: The Federal rules restrict any use of the information to criminally investigate or prosecute any alcohol or drug abuse patient.[facility] [place] the event this information is protected by the Federal Confidentiality of Alcohol and Drug Abuse Patient Records regulations: The Federal rules restrict any use of the information to criminally investigate or prosecute any alcohol or drug abuse patient.[facility] [place] Reason for Visit (unrecogniz ed section and content) Reason Comments Patient Question Reason Comments appointment conflict Reason Comments Established Patient Pain Swelling Specialty Diagnoses / Procedures Referred By Rigo t Referred To Contact [facility] Diagnoses 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, initial encounter (HCC) Pain due to total left knee replacement, initial encounter ([facility]) Procedures CONSULT TO PHYSICAL THERAPY PHYSICAL THERAPY EVALUATION HIGH COMPLEX 45 MINS Jesus Alberto Harris APRN.[facility] [address] [address] [facility] [address] [place] [id number] Referral ID Status Reason Start Date Expiration Date Visits Requested Visits Authorized [id number] Authorized Auto-Generat ed Referral 2 07/23/2022 99 99 Reason Comments Patient Question Right Big toe Reason Comments Schedule Surgery Care Teams (unrecognized sec tion and content) Head Of Conservation Relationship Specialty Start Date End Date Kris Bernardo MD [address] [place] [id number] PCP - General Family Medicine 07/27/20 Head Of Conservation Relationship Specialty Start Date End Date Kris Bernardo MD [address] [place] [address] PCP - General Family Medicine 07/27/20 Head Of Conservation Relationship Specialty Start Date End Date Kris Bernardo MD [address] [place] [address] PCP - General Family Medicine 07/27/20 Head Of Conservation Relationship Specialty Start Date End Date Kris Bernardo MD [address] [place] [address] PCP - General Family Medicine 07/27/20 Head Of Conservation Relationship Specialty Start Date End Date Kris Bernardo MD [address] [place] [address] PCP - General Family Medicine 07/27/20 Head Of Conservation Relationship Specialty Start Date End Date Kris Bernardo MD [address] [place] [address] PCP - General Family Medicine 07/27/20 Head Of Conservation Relationship Specialty Start Date End Date Kris Bernardo MD [address] [place] [address] PCP - General Family Medicine 07/27/20 Team Status: Active Member Role Status Dates [facility] Family Provider Active Dr. Hernandez Mosley MD [...] MD Primary Care Provider Active Samantha Grider COLLABORATING SUPERVISING PHYSICIAN, COLLABORATING SUPERVISING PHYSICIAN-C Attending Provider, Referring Pr ovider Active Team Status: Inactive Member Role Status Dates Dr. Hernandez Mosley MD Primary Care Provider, Attending Provider Active Head Of Conservation Relationship Specialty Start Date End Date Hernandez Mosley Chi [address] [place] [address] PCP - General Gerontology 05/23/22 Team Status: Inactive Member Role Status Dates Dr. Hernandez Mosley MD Primary Care Provider Active Dr. Reyes Damian DO Attending Provider, Referring P lupis Active Dr. Kris Roach MD Other Provider [...] Dr. Eder Lamas DO Emergency Provider Active Head Of Conservation Relationship Specialty Start Date End Date Kris Bernardo MD [address] [place] [id number] PCP - General Family Medicine 07/27/20 05/22/22 [...] MD Primary Care Provider Active Dr. Michael Andes , DO Emergency Provider Active Dr. Jorge L May , DO Admit Provider, Attending Pr ovider Active Team Status: Active Member Role Status Dates Dr. Hernandez Mosley MD Primary Care Provider Active Dr. Michael Lyman , DO Emergency Provider Active Dr. Jorge L May , DO Admit Provider , Attending Provider, Other Provider Active Team Status: Active Member Role Status Dates Dr. Hernandez Mosley MD Primary Care Provider Active Dr. Michael Lyman , DO Emergency Provider Active Dr. Jorge L May , DO Admit Provider, Other Provid er Active Dr. Jessica Quintero DO Other Provider Active Dr. Stanley Godwin , DO Attending Provider Active Team Status: Active Member Role Status Dates Dr. Hernandez Mosley MD Primary Care Provider Active Dr. Stanley Godwin , DO Attending Provider Active Team Status: Active [...] Attending Provider Active Dr. Jessica Quintero , DO Other Provider Active Team Status: Active Member Role Status Dates Dr. Hernandez Mosley MD Primary Care Provider Active Dr. Michael Lyman , DO Emergency Provider Active Dr. Jorge L May , DO Admit Provider, Other Provid er Active Dr. Jessica Quintero DO Other Provider Active Dr. Stanley Godwin [...] December 02, 2024 End: December 02, 2024 Team Status: Active Member Role/Relationship Status Dates Dr. Hernandez Mosley MD Primary Care Provider Active Team Status: Inactive Member Role/Relationship Status Dates Dr. Hernandez Mosley MD Primary Care Provider Active Start: December 02, 2024 End: December 02, 2024 Dr. Hernandez Mosley MD Attending Provider Active Start: December 02, 2024 End: December 02, 2024 Dr. Hernandez Mosley MD Referring Provider Active Start: December 02, 2024 End: December 02, 2024 Team Status: Inactive Member Role/Relationship Status Dates Dr. Hernandez Mosley MD Primary Care Provider Active Start: March 10, 2025 End: March 10, 2025 Dr. Montana Quiñonez MD Attending Provider Active Start: March 10, 2025 End: March 10, 2025 Dr. Montana Quiñonez MD Referring Provider Active Start: March 10, 2025 End: March 10, 2025 Team Status: Inactive Member Role/Relationship Status Dates Dr. Hernandez Mosley MD Primary Care Provider Active Start: March 18, 2025 End: March 18, 2025 Dr. Hernandez Mosley MD Referring Provider Active Start: March 18, 2025 End: March 18, 2025 Dr. Stanley Godwin DO Attending Provider Active Start: March 18, 2025 End: March 18, 2025 Team Status: Active Member Role/Relationship Status Dates Dr. Hernandez Mosley MD Primary Care Provider Active Start: March 18, 2025 Dr. Stanley Godwin DO Attending Provider Active Start: March 18, 2025 Dr. Stanley Godwin DO Referring Provider Active Start: March 18, 2025 Team Status: Inactive Member Role/Relationship Status Dates Dr. Hernandez Mosley MD Primary Care Provider Active Start: March 18, 2025 End: March 18, 2025 Dr. Stanley Godwin DO Attending Provider Active Start: March 18, 2025 End: March 18, 2025 Dr. Stanley Godwin DO Referring Provider Active Start: March 18, 2025 End: March 18, 2025 Team Status: Active Member Role/Relationship Status Dates Dr. Hernandez Mosley MD Primary Care Provider Active Start: March 25, 2025 Dr. Christian Echeverria MD Emergency Provider Active Start: March 25, 2025 Team Status: Active Member Role/Relationship Status Dates Dr. Hernandez Mosley MD Primary Care Provider Active Start: March 25, 2025 Dr. Christian Echeverria MD Emergency Provider Active Start: March 25, 2025 Dr. Jennifer Dunne MD Admit Provider Active Star t: March 25, 2025 Dr. Jennifer Dunne MD Attending Provider Active Start: March 25, 2025 Dr. Jennifer Dunne MD Other Provider Active Star t: March 25, 2025 FOR RECORDS PERTAINING TO PATIENTS WHO ARE [...] BE BASED ON THE PRIMARY CLINICAL RECORDS. [facility] [employer] [facility]. provides no warranty or guarantee of the accuracy or completeness of information in this document.
--- OUTSIDE RECORDS SUMMARY | 2025-03-25 23:44 | XMS RPT_ITS | CCD ---
Author Organization [facility] Providers Care Weaver Wire Loom Name Role Phone TRINIDAD KAY Unavailable Unavailable [...] Dr. Hernandez Mosley Chi Primary Care Provider [phone] Dimitri, Dr. Hernandez Alvarez Referring Provider Dr. Reyes Damian Attending Provider [phone] Dr. Vincent Villagomez Attending Provider [phone] Hernandez Mosley Chi Primary Care Provider TESTRALAMONT, [...] Referring Provider Dr. Reyes Damian Attending Provider [phone] Dr. Vincent Villagomez Attending Provider Dr. Reyes Dmaian Admit Provider Dr. Reyes Damian Referring Provider [...] Unavailabl e Leon Dr. Lopez Other Provider Citllai, Dr. Angel Attending Provider Marcelino, Dr. Gorman Attending Provider [facility], Dr. Gorman Other Provider Dimitri, Dr. Hernandez Alvarez Primary Care Provider [phone] Dimitri, Dr. Hernandez Alvarez Referring Provider Dr. Shabbir Birch Attending Provider Dr. Vincent Villagomez Attending Provider And, Dr. Rodriguez Emergency Provider May, Dr. Coats Admit Provider Unavailabl e May, Dr. Coats Attending Provider Unavail able May, Dr. Coats Other Provider Unavailabl e Leon, Dr. Lopez Other Provider Citlail, Dr. Angel Attending Provider Marcelino, Dr. Gorman Referring Provider [facility], Dr. Gorman Attending Provider [facility], Dr. Gorman Other Provider Dr. Rian Fierro Attending Provider Dimitri, Dr. Hernandez Alvarez Primary Care Provider Dimitri, Dr. Hernandez Alvarez Referring Provider Dr. Shabbir Birch Attending Provider Dr. Stanley Godwin Other Provider Dr. Hernandez Mosley MD, Chi Primary Care Provider [phone] Dimitri ROSADO, Dr. Hernandez Alvarez Referring Provider [phone] Gautam Abarca Attending Provider [phone] Dr. Stanley Godwin DO Attending Provider Dr. Stanley Godwin DO Referring Provider Khang ROSADO, Dr. Boyle Attending Provider Dr. Montana Quiñonez MD Referring Provider Dimitri ROSADO, Dr. Hernandez Alvarez Primary Care Provider Dimitri ROSADO, Dr. Hernandez Alvarez Referring Provider Dimitri ROSADO, Dr. Hernandez Alvarez Attending Provider Dimitri ROSADO, Dr. Hernandez Alvarez Primary Care Provider Dimitri ROSADO, Dr. Hernandez Alvarez Referring Provider [phone] Khang ROSADO, Dr. Boyle Attending Provider Khang ROSADO, Dr. Boyle Referring Provider [phone] Citlali TOSCANO, Dr. Angel Attending Provider Citlali TOSCANO, Dr. Angel Referring Provider Dimitri, Hernandez Chi Referring Unavailable Dimitri, Hernadnez Chi Primary Care Unavailable Dimitri, Hernandez Chi [...] Unavailable Dimitri, Hernandez Chi Referring Unavailable Dimitri, Hrenandez Chi Attending Unavailable Jacki ROSADO, Dr. Gonzales Emergency Provider Dr. Christian Echeverria MD Emergency Provider William ROSADO, Dr. Rodriguez Admit Provider William ROSADO, Dr. Rodriguez Attending Provider [phone] Allergies Allergy Classification Reported Allergen(s) Allergy Type Date of Onset Reaction(s) Facility (12 sources) Adhesive Tape; Translations: [ADHESIVE TAPE (ROSINS)] Propensity to adverse reactions (disorder) 6 Rash [facility] Other [place] [facility] (20 sources) Adhesive Tape; Translations: [adhesive tape] Allergy to substance 1 blistering [facility] Comment on above: has allergy to adhes adeel in paper tape (15 sources) BEE STING; Translations: [BEE STING] Allergy to substance 0 Swelling [facility] Work Phone: (20 sources) bee venom protein (honey bee) Allergy to substance 3 Swelling [facility] (1 source) bee venom protein (honey bee) Drug allergy (disorder) 5 [facility] Repository Medications Current Medications Medication Drug Class(es) Dates Sig (Normalized) Sig (Original) Acidophilus-Pectin, [place] 25 million cell -100 mg Tablet (7 sources) Start: 09-26-2023 take 1 tablet by mouth twice daily Acidophilus-Pectin , [place] 25 million cell -100 mg Tablet Active 2 {tbl} PO TWICE A DAY 0 0 September 26, 2023 1:00am Zdgm-zmv-coyaikk. Probiotic. At least for 2 week. Start: 09-26-2023 take 1 tablet by karyn th twice daily Acidophilus-Pectin, [place] 25 million cell -100 mg Tablet Active 2 {tbl} PO TWICE A DAY 0 September 26, 2023 1:00am Ejtt-syp-fdgwnqw. Probiotic. At least for 2 week. amLODIPine [...] DAILY January 12, 2023 12:00am lactobacillus acidophilus [id number] unt / pectin 100 mg oral tablet (8 sources) Start: 09-26-2023 take 2 tablets by mouth twice daily Acidophilus-Pectin , [place] Active 2 TABLET PO TWICE A DAY September 26, 2023 1:00am Oysk-xxw-hunwitj. Probiotic. At least for 2 week. ondansetron [...] Comment on above: [facility] rOPINIRole 0.25 mg oral tablet (20 sources) Nonergot Dopamine Agonist Start: 08-09-2022 take 0.5 mg by mouth at bedtime Ropinirole Active 0.5 MG PO AT BEDTIME August 09, 2022 1:00am Start: 06-29-2017 take 2 tablets by [facility] at bedtime Ropinirole 0.25 mg tablet Active 0.5 mg PO AT BEDTIME August 09, 2022 1:00am [facility] Comment on above: Take 2 tablets by mo [facility] daily at bedtime. tiZANidine 4 mg oral [...] Comment on above: Take 1 capsule by [facility] twice a week. (FOR EXAMPLE ONE CAPSULE [...] Other acute postprocedural pain polyethylene glycol [phone] mg powder for oral solution (15 sources) [...] Comment on above: Take 1 capsule by [facility] once daily. traMADol hydrochloride 50 mg oral [...] as needed. Currently not taking while on [place] for pain triamcinolone acetonide 40 mg/ml injectable [...] Auto (Unsp spec) [#/Vol] 1.32 10*3/uL 0.83-4.51 [facility] Absolute neutrophil countOrd ered By: Christian Echeverria on 03-25-2025 Neutrophils (Bld) [#/Vol] 13.9 10*3/uL High 2.0-7.7 [facility] Anion gap in Serum or Plasma Ordered By: Christian Echeverria on 03-25-2025 Anion gap [Moles/Vol] 14 mmol/L 5-15 [facility] Automated lymphocyte count a s percentage of total leukocytesOrdered By: Christian Echeverria on 03-25-2025 Lymphocytes/100 WBC Auto (Unsp spec) 7.6 % Low 19-41 [facility] BUN/creatinine ratioOrdered By: Christian Echeverria on 03-25-2025 Urea nitrogen/Creatinine [Mass ratio] 12.8 mg/mg 10-20 [facility] Basophil percentageOrdered B y: Christian Echeverria on 03-25-2025 Basophils/100 WBC (Bld) 0.3 % 0-1 [facility] Bilirubin Test strip Ql (U)O rdered By: Christian Echeverria on 03-25-2025 Bilirubin Ql (U) Negative Negative [facility] Bilirubin, totalOrdered By: Christian Echeverria on 03-25-2025 Bilirubin [Mass/Vol] 0.88 mg/dL 0.00-1.30 [facility] Blood manual differential co mment interpretation (narrative result)Ordered By: Christian Echeverria on 03-25-2025 Manual differential comment Angel (Bld) [Interp] SCANNED [facility] Carbon dioxide, total [Moles /volume] in Central venous bloodOrdered By: Christian Echeverria on 03-25-2025 CO2 [Moles/Vol] 26.3 mmol/L 21.0-32.0 [facility] Chloride assayOrdered By: Steven Echeverria on 03-25-2025 Chloride [Moles/Vol] 94 mmol/L Low 98-108 [facility] Eosinophil percentageOrdered By: Christian Echeverria on 03-25-2025 Eosinophils/100 WBC (Bld) 0.1 % 0-5 [facility] Erythrocyte distribution wid th ratioOrdered By: Christian Echeverria on 03-25-2025 Erythrocyte distribution width (RBC) [Ratio] 12.5 % 11.6-14.6 [facility] Erythrocyte distribution wid th standard deviationOrdered By: Christian Echeverria on 03-25-2025 Erythrocyte distribution width (RBC) [Ratio] 41.3 fl 35.1-43.9 [facility] Glomerular filtration rate ( GFR) estimation/1.73 sq m using serum, plasma, or whole bOrdered By: Christian Echeverria on 03-25-2025 GFR/1.73 sq M.predicted among non-blacks MDRD (S/P/Bld) [Vol rate/Area] 73 mL/min/{1.73_m2} >60 [facility] Comment on above: mL/min/1.73m2 CKD-EP I Creatinine Equation (2020) Hematocrit Auto (Bld) [Volum e fraction]Ordered By: Christian Echeverria on 03-25-2025 Hematocrit (Bld) [Volume fraction] 42.0 % 37-47 [facility] Hemoglobin measurementOrdere d By: Christian Echeverria on 03-25-2025 Hemoglobin (Bld) [Mass/Vol] 14.4 g/dL 12.0-15.0 [facility] Immature granulocytes/100 WB C Auto (Bld)Ordered By: Christian Echeverria on 03-25-2025 Immature granulocytes/100 WBC (Bld) 0.600 % 0.0-0.9 [facility] Comment on above: IG% - Immature Granu locytes (promyelocytes, myelocytes and metamyelocytes) > 1% indicates that a LEFT SHIFT is Present. Ketones Test strip Ql (U)Ord ered By: Christian Echeverria on 03-25-2025 Ketones Ql (U) Negative Negative [facility] Laboratory - Chemistry and C hemistry - challengeOrdered By: Christian Echeverria on 03-25-2025 AST [Catalytic activity/Vol] 20 U/L <32 [facility] Lipase measurementOrdered By : Christian Echeverria on 03-25-2025 Lipase [Catalytic activity/Vol] 32 U/L 13-75 [facility] Comment on above: Please note:LIPASE r evised reference range effective 22. New Lipase methodology. Expected to produce lower values than the previous assay method. NEW Reference Range: 13 - 75 U/L MCV (mean corpuscular volume ) determinationOrdered By: Christian Echeverria on 03-25-2025 MCV (RBC) [Entitic vol] 91.3 fL 81-99 [facility] Mean corpuscular hemoglobin (MCH) determinationOrdered By: Christian Echeverria on 03-25-2025 MCH (RBC) [Entitic mass] 31.3 pg 27.0-32.0 [facility] Mean corpuscular hemoglobin concentration (MCHC) determinationOrdered By: Christian Echeverria on 03-25-2025 MCHC (RBC) [Mass/Vol] 34.3 g/dL 32-36 [facility] Mean platelet volume determi nationOrdered By: Christian Echeverria on 03-25-2025 Platelet mean volume (Bld) [Entitic vol] 9.9 fL 6.2-12.0 [facility] Microscopic analysis of urin e for red blood cells (RBC)Ordered By: Christian Echeverria on 03-25-2025 Microscopic analysis of urine for red blood cells (RBC) 0 SEEN /hpf 0-5 [facility] Monocyte percentageOrdered B y: Christian Echeverria on 03-25-2025 Monocytes/100 WBC (Bld) 11.4 % High 0-10 [facility] Mucus LM Ql (Urine sed)Order ed By: Christian Echeverria on 03-25-2025 Mucus Ql (Urine sed) 0 SEEN /hpf [facility] Neutrophil percentageOrdered By: Christian Echeverria on 03-25-2025 Neutrophils/100 WBC (Bld) 80.0 % High 47-70 [facility] Nitrite Test strip Ql (U)Ord ered By: Christian Echeverria on 03-25-2025 Nitrite Ql (U) Negative Negative [facility] Nucleated red blood cell per centageOrdered By: Christian Echeverria on 03-25-2025 Nucleated RBC/100 WBC (Bld) [Ratio] 0 % 0-5 [facility] Platelet countOrdered By: Steven Echeverria on 03-25-2025 Platelets (Bld) [#/Vol] 345 10*3/uL 150-450 [facility] Platelet estimateOrdered By: Christian Echeverria on 03-25-2025 Platelets LM Ql (Bld) ADEQUATE ADEQ [facility] Potassium measurement (mass/ volume)Ordered By: Christian Echeverria on 03-25-2025 Potassium (Unsp spec) [Mass/Vol] 3.7 mmol/L 3.3-5.1 [facility] Protein Test strip Ql (U)Ord ered By: Christian Echeverria on 03-25-2025 Protein Ql (U) Negative Negative [facility] RBC Auto (Bld) [#/Vol]Ordere d By: Christian Echeverria on 03-25-2025 RBC (Bld) [#/Vol] 4.60 10*6/uL 4.2-5.4 [facility] Serum creatinine measurement (mass/volume)Ordered By: Christian Echeverria on 03-25-2025 Creatinine [Mass/Vol] 0.89 mg/dL 0.70-1.20 [facility] Serum globulin measurementOr dered By: Christian Echeverria on 03-25-2025 Globulin (S) [Mass/Vol] 2.9 g/dL 2.2-4.2 [facility] Serum glucose measurement (m ass/volume)Ordered By: Christian Echeverria on 03-25-2025 Glucose [Mass/Vol] 120 mg/dL High 70-99 [facility] Serum or plasma alanine bergman otransferase (ALT) measurementOrdered By: Christian Echeverria on 03-25-2025 ALT [Catalytic activity/Vol] 26 U/L <35 [facility] Serum or plasma albumin elis urement (mass/volume)Ordered By: Christian Echeverria on 03-25-2025 Albumin [Mass/Vol] 4.5 g/dL 3.4-4.8 [facility] Serum or plasma albumin/glob ulin mass ratioOrdered By: Christian Echeverria on 03-25-2025 Albumin/Globulin [Mass ratio] 1.5 {ratio} 0.9-2.4 [facility] Serum or plasma alkaline radha sphatase measurementOrdered By: Christian Echeverria on 03-25-2025 ALP [Catalytic activity/Vol] 110 U/L High 35-104 [facility] Serum or plasma calcium elis urement (mass/volume)Ordered By: Christian Echeverria on 03-25-2025 Calcium [Mass/Vol] 9.5 mg/dL 7.6-11.0 [facility] Serum or plasma urea nitroge n measurement (mass/volume)Ordered By: Christian Echeverria on 03-25-2025 Urea nitrogen [Mass/Vol] 11 mg/dL 4-19 [facility] Sodium levelOrdered By: Murali Echeverria on 03-25-2025 Sodium [Moles/Vol] 134 mmol/L 133-145 [facility] Squamous epithelial cells de tection in urine sediment by light microscopyOrdered By: Christian Echeverria on 03-25-2025 Epithelial cells.squamous LM Ql (Urine sed) 0-5 SEEN /hpf 5-10 [facility] Total proteinOrdered By: Trey Echeverria on 03-25-2025 Protein [Mass/Vol] 7.5 g/dL 5.9-8.4 [facility] Urine clarityOrdered By: Trey Echeverria on 03-25-2025 Clarity (U) Clear Clear [facility] Urine color determinationOrd ered By: Christian Echeverria on 03-25-2025 Color (U) Yellow Yellow [facility] Urine glucose detectionOrder ed By: Christian Echeverria on 03-25-2025 Glucose Ql (U) Normal mg/dl Normal [facility] Urine leukocyte esterase det ection by dipstickOrdered By: Christian Echeverria on 03-25-2025 Leukocyte esterase Test strip Ql (U) Negative Negative [facility] Urine pHOrdered By: Christian Echeverria on 03-25-2025 pH (U) 7.0 [pH] 5.0 - 8.0 [facility] Urine sediment bacteria coun t by microscopy (number/high power field)Ordered By: Christian Echeverria on 03-25-2025 Bacteria LM.HPF (Urine sed) [#/Area] 0 /[HPF] None Seen [facility] Urine specific gravity measu rementOrdered By: Christian Echeverria on 03-25-2025 Specific gravity (U) [Rel density] 1.005 1.002-1.030 [facility] Urine urobilinogen measureme ntOrdered By: Christian Echeverria on 03-25-2025 Urobilinogen Ql (U) Normal mg/dl Normal [facility] White blood cell (WBC) count Ordered By: Christian Echeverria on 03-25-2025 WBC (Bld) [#/Vol] 17.4 10*3/uL High 4.4-11.0 [facility] White blood cell countOrdere d By: Christian Echeverria on 03-25-2025 White blood cell count 0 SEEN /hpf 0-5 [facility] CRPon 03-18-2025 C-REACTIVE PROT 4.67 mg/L High 0.0-3.0 [facility] Comment on above: Performed By: #### L 501.6710, L101.9900 ####[facility] [address] [place], [address] Erythrocyte Sed Rateon 03-18 SED RATE 1 mm/hr Normal 0-30 [facility] Comment on above: Performed By: #### L 501.6710, L101.9900 ####[facility] [address] [place], [address] Erythrocyte sedimentation ra teOrdered By: Stanley Godwin on 03-18-2025 ESR (Bld) [Velocity] 1 mm/h 0-30 [facility] Gastroenterology Visit Repor ton 03-18-2025 Gastroenterology Visit Report [facility] [address] [place] [address] OFFICE VISIT Date of Service: 03/18/25 MR#: [id number] Acct: [id number] Name: JUDY REAGAN ANN Rep #: [id number] : 1960 Provider: Stanley Godwin DO Age/Sex: 65/F Location: [facility] Status: Signed Intake Vital Signs 10/07/24 [...] to the office today for follow up. [facility] hospitalization 03.20.16-03.23.16 for abdominal pain. EGD 03.20.16???scope could not be advanced through duodenal bulb due to concentric narrowing less likely mass; no obvious ulcerations; duodenitis with duodenal ulcers; gastritis; healing prepyloric ulcer. H.Pylori neg Prior workup: ?CT abd/pel 09.21.23???colonic diverticulosis with diverticulitis *[facility] hospitalization 3.10.14-09.26.23 for management of abdominal pain [...] sided abdominal (more content not included)... Normal [facility] Serum or plasma C reactive p rotein measurement (mass/volume)Ordered By: Stanley Godwin on 03-18-2025 CRP [Mass/Vol] 4.67 mg/L High 0.0-3.0 [facility] Lumbar Spine 2 or 3 Viewson 03-10-2025 Lumbar Spine 2 or 3 Views [facility] Imaging Services [address] [place] [address] Lumbar Spine 2 or 3 Views MR#: [id number] Acct: [id number] Name: JUDY REAGAN ANN Rep #: [id number] : 1960 F 65 From: Yumiko Mancia MD PCP: Dr. Hernandez Mosley MD Status: [facility] Study: Lumbar Spine 2 or 3 Views Date of Exam: Exam# [id number] Ordering Dr: Montana Quiñonez MD PROCEDURE: LUMBAR SPINE 2 OR 3 VIEWS 03/10/2025 REASON FOR EXAM: L4 L5 S1 TECHNIQUE: LUMBAR SPINE 2 OR 3 VIEWS FINDINGS: Intraoperative fluoroscopy of the lumbar spine was performed. 5.88 mGy. 15 seconds of fluoroscopic time. See procedure report for full details. RAD/Lumbar Spine 2 or 3 Views IMPRESSION: As above. Reading Location: [facility] CC: Dr. Montana Quiñonez MD; Dr. Hernandez Mosley MD General Cleaner: Signed [facility] MR/POSTOP.ANEon 03-10-2025 MR/POSTOP.[facility] Medical Records Department [address] [place] [address] Anesthesia Postop Eval I 03/10/25 0848 MR#: [id number] Acct: [id number] Name: JUDY REAGAN ANN Rep #: [id number] : 1960 65 From: Yeimy Duggan CRNA PCP: Dr. Hernandez Mosley MD Status:[facility] Y Race: C Location: [place] [address] Anesthesia: Postop Eval I Current Vital Signs Temperature: 97.2 F Pulse Rate: 80 Blood Pressure: 140/75 Respiratory Rate: 20 Pulse Ox: 99 Assessment Airway patent: Yes Spontaneous unlabored respirations: Yes nausea: No Vomiting: No Anesthesia Complication: No Fluid Hydration Crystalloid volume administer (ml): 200 Total IV fluid infused: 200 Progress Note Anesthesia document: Postop Eval 1 completed: Yes 03/10/2548 Date Yeimy Duggan BANQUET COORDINATOR Cosigner Signature: Date CC: Signed [facility] MR/[id number] 03-10-2025 MR/POSTOPAN2 [facility] Medical Records Department [address] [place] [address] Anesthesia Postop Eval II 03/10/25 1343 MR#: [id number] Acct: [id number] Name: JUDY REAGAN ANN Rep #: [id number] : 1960 65 From: Sade Padgett CRNA PCP: Dr. Hernandez Mosley MD Status:[facility] Y Race: C Location: [facility] Anesthesia Postop Eval I Sum Postop Eval Completion status Anesthesia document: Postop Eval 1 completed: Yes Anesthesia Postop Eval I Summary Anesthesia Postop Eval I Summary: Anesthesia Postop Eval I: Assessment Summary Airway patent Yes 03/10/25 08:48 BANQUET COORDINATOR.CSIR Spontaneous unlabored Yes 03/10/25 08:48 BANQUET COORDINATOR.CSIR respirations Mental status nausea No 03/10/25 08:48 BANQUET COORDINATOR.CSIR Vomiting No 03/10/25 08:48 BANQUET COORDINATOR.CSIR Anesthesia Postop Eval I: Fluid Summary Crystalloid volume administer 200 03/10/25 08:48 BANQUET COORDINATOR.CSIR (ml) Colloids volume administered ( ml) Blood Product volume administered (ml) Total IV fluid infused 200 03/10/25 08:48 BANQUET COORDINATOR.CSIR Anesthesia Postop Eval I: Summary Notes Anesthesia Complication No 03/10/25 08:48 BANQUET COORDINATOR.CSIR Anesthesia Complication Comment: Post-operative progress note Anesthesia: Postop Eval II Evaluation Mental status: Awake and Calm Pain Level: 1 nausea: No Vomiting: No Complications Anesthesia Complication: No 03/10/25 1343 Date Sade Padgett BANQUET COORDINATOR Cosigner Signature: Date CC: Signed Normal [facility] Operative Reporton 5 Operative Report [facility] Medical Records Department [address] [place] [address] Operative Report 03/10/25 0849 MR#: [id number] Acct: [id number] Name: JUDY REAGAN ANN Rep #: [id number] : 1960 65 From: Montana Quiñonez MD PCP: Dr. Hernandez Mosley MD Status:[facility] Location: [place] [address] Operative Report (Standard) Operative Information Date of Procedure: 03/10/25 Pre-Operative Diagnosis: Lumbosacral radiculopathy, lumbosacral spinal stenosis, lumbosacral degenerative disc disease Post-Operative Diagnosis: Lumbosacral radiculopathy, lumbosacral spinal stenosis, lumbosacral degenerative disc disease Surgery/Procedure Performed: Right sided lumbar transforaminal epidural steroid injection L4-5, L5- S1 under fluoroscopic guidance supervisor photostat: No Type of Anesthesia: Local MAC RN [...] MD; Dr. Hernandez Mosley MD Signed Normal [facility] Absolute lymphocyte countOrd ered By: Hernandez Mosley on 12-02-2024 Lymphocytes Auto (Unsp spec) [#/Vol] 2.21 10*3/uL 0.83-4.51 [facility] Absolute neutrophil countOrd ered By: Hernandez Mosley on 12-02-2024 Neutrophils (Bld) [#/Vol] 7.5 10*3/uL 2.0-7.7 [facility] Anion gap in Serum or Plasma Ordered By: Hernandez Mosley on 12-02-2024 Anion gap [Moles/Vol] 15 mmol/L 5-15 [facility] Automated lymphocyte count a s percentage of total leukocytesOrdered By: Hernandez Mosley on 12-02-2024 Lymphocytes/100 WBC Auto (Unsp spec) 20.2 % - [facility] BUN/creatinine ratioOrdered By: Hernandez Mosley on 12-02-2024 Urea nitrogen/Creatinine [Mass ratio] 19.5 mg/mg 10-20 [facility] Basophil percentageOrdered B y: Hernandez Mosley on 12-02-2024 Basophils/100 WBC (Bld) 0.5 % 0-1 [facility] Bilirubin, totalOrdered By: Hernandez Mosley on 12-02-2024 Bilirubin [Mass/Vol] 0.36 mg/dL 0.00-1.30 [facility] CBC W/Diff, Automatedon 11-21 Absolute Lymph 2.21 X10 3/uL Normal 0.83-4.51 [facility] Comment on above: Performed By: #### L 100.0100, L500.4050, L501.9520 ####[facility] [address] [place], [address] Absolute Neut 7.5 X10 3/uL Normal 2.0-7.7 [facility] Comment on above: Performed By: #### L 100.0100, L500.4050, L501.9520 ####[facility] [address] [place], [address] Basophils/100 WBC (Bld) 0.5 % Normal 0-1 [facility] Comment on above: Performed By: #### L 100.0100, L500.4050, L501.9520 ####[facility] [address] [place], [address] Eosinophils/100 WBC (Bld) 0.7 % Normal 0-5 [facility] Comment on above: Performed By: #### L 100.0100, L500.4050, L501.9520 ####[facility] [address] [place], [address] Erythrocyte distribution width (RBC) [Ratio] 13.2 % Normal 11.6-14.6 [facility] Comment on above: Performed By: #### L 100.0100, L500.4050, L501.9520 ####[facility] [address] [place], [address] Hematocrit (Bld) [Volume fraction] 41.5 % Normal 37-47 [facility] Comment on above: Performed By: #### L 100.0100, L500.4050, L501.9520 ####[facility] [address] [place], [address] Hemoglobin (Bld) [Mass/Vol] 13.7 g/dL Normal 12.0-15.0 [facility] Comment on above: Performed By: #### L 100.0100, L500.4050, L501.9520 ####[facility] [address] [place], [address] IG% 0.500 Normal 0.0-0.9 [facility] Comment on above: Result Comment: IG% - Immature Granulocytes (promyelocytes, myelocytes and metamyelocytes) > 1% indicates that a LEFT SHIFT is Present. Performed By: #### L 100.0100, L500.4050, L501.9520 ####[facility] [address] [place], [address] Lymphocytes/100 WBC (Bld) 20.2 % Normal 19-41 [facility] Comment on above: Performed By: #### L 100.0100, L500.4050, L501.9520 ####[facility] [address] [place], [address] MCH (RBC) [Entitic mass] 30.8 pg Normal 27.0-32.0 [facility] Comment on above: Performed By: #### L 100.0100, L500.4050, L501.9520 ####[facility] [address] [place], [address] MCHC (RBC) [Mass/Vol] 33.0 g/dL Normal 32-36 [facility] Comment on above: Performed By: #### L 100.0100, L500.4050, L501.9520 ####[facility] [address] [place], [address] MCV (RBC) [Entitic vol] 93.3 fL Normal 81-99 [facility] Comment on above: Performed By: #### L 100.0100, L500.4050, L501.9520 ####[facility] [address] [place], [address] Monocytes/100 WBC (Bld) 9.6 % Normal 0-10 [facility] Comment on above: Performed By: #### L 100.0100, L500.4050, L501.9520 ####[facility] [address] [place], [address] Neutrophils/100 WBC (Bld) 68.5 % Normal 47-70 [facility] Comment on above: Performed By: #### L 100.0100, L500.4050, L501.9520 ####[facility] [address] [place], [address] Nucleated RBC (Bld) [#/Vol] 0 10*3/uL Normal 0-5 [facility] Comment on above: Performed By: #### L 100.0100, L500.4050, L501.9520 ####[facility] [address] [place], [address] Platelet mean volume (Bld) [Entitic vol] 9.7 fL Normal 6.2-12.0 [facility] Comment on above: Performed By: #### L 100.0100, L500.4050, L501.9520 ####[facility] [address] [place], [address] Platelets (Bld) [#/Vol] 328 10*3/uL Normal 150-450 [facility] Comment on above: Performed By: #### L 100.0100, L500.4050, L501.9520 ####[facility] [address] [place], [address] RBC (Bld) [#/Vol] 4.45 10*6/uL Normal 4.2-5.4 [facility] Comment on above: Performed By: #### L 100.0100, L500.4050, L501.9520 ####[facility] [address] [place], [address] RDW SD 45.4 fl High 35.1-43.9 [facility] Comment on above: Performed By: #### L 100.0100, L500.4050, L501.9520 ####[facility] [address] [place], [address] WBC (Bld) [#/Vol] 11.0 10*3/uL Normal 4.4-11.0 [facility] Comment on above: Performed By: #### L 100.0100, L500.4050, L501.9520 ####[facility] [address] [place], [address] Carbon dioxide, total [Moles /volume] in Central venous bloodOrdered By: Hernandez Mosley on 12-02-2024 CO2 [Moles/Vol] 23.3 mmol/L 21.0-32.0 [facility] Chloride assayOrdered By: Jer Mosley on 12-02-2024 Chloride [Moles/Vol] 99 mmol/L 98-108 [facility] Comprehensive Metabolic Prof ilon 12-02-2024 Albumin [Mass/Vol] 4.5 g/dL Normal 3.4-4.8 [facility] Comment on above: Performed By: #### L 100.0100, L500.4050, L501.9520 ####[facility] [address] [place], [address] Albumin/Globulin [Mass ratio] 1.6 {ratio} Normal 0.9-2.4 [facility] Comment on above: Performed By: #### L 100.0100, L500.4050, L501.9520 ####[facility] [address] [place], [address] ALK PHOS 82 U/L Normal 35-104 [facility] Comment on above: Performed By: #### L 100.0100, L500.4050, L501.9520 ####[facility] [address] [place], [address] ALT [Catalytic activity/Vol] 24 U/L Normal <=34 [facility] Comment on above: Performed By: #### L 100.0100, L500.4050, L501.9520 ####[facility] [address] [place], [address] AST [Catalytic activity/Vol] 22 U/L Normal <=31 [facility] Comment on above: Performed By: #### L 100.0100, L500.4050, L501.9520 ####[facility] [address] [place], [address] Bilirubin [Mass/Vol] 0.36 mg/dL Normal 0.00-1.30 [facility] Comment on above: Performed By: #### L 100.0100, L500.4050, L501.9520 ####[facility] [address] [place], [address] BUN/CRE 19.5 RATIO Normal 10-20 [facility] Comment on above: Performed By: #### L 100.0100, L500.4050, L501.9520 ####[facility] [address] [place], [address] Calcium [Mass/Vol] 9.5 mg/dL Normal 7.6-11.0 [facility] Comment on above: Performed By: #### L 100.0100, L500.4050, L501.9520 ####[facility] [address] [place], [address] Chloride [Moles/Vol] 99 mmol/L Normal 98-108 [facility] Comment on above: Performed By: #### L 100.0100, L500.4050, L501.9520 ####[facility] [address] [place], [address] CO2 [Moles/Vol] 23.3 mmol/L Normal 21.0-32.0 [facility] Comment on above: Performed By: #### L 100.0100, L500.4050, L501.9520 ####[facility] [address] [place], [address] Creatinine [Mass/Vol] 0.82 mg/dL Normal 0.70-1.20 [facility] Comment on above: Performed By: #### L 100.0100, L500.4050, L501.9520 ####[facility] [address] [place], [address] GAP 15 Normal 5-15 [facility] Comment on above: Performed By: #### L 100.0100, L500.4050, L501.9520 ####[facility] [address] [place], [address] GFR/1.73 sq M.predicted among non-blacks MDRD (S/P/Bld) [Vol rate/Area] 81 mL/min/{1.73_m2} Normal >60 [facility] Comment on above: Result Comment: mL/m in/1.73m2 CKD-EPI Creatinine Equation (2020) Performed By: #### L 100.0100, L500.4050, L501.9520 ####[facility] [address] [place], [address] Globulin (S) [Mass/Vol] 2.8 g/dL Normal 2.2-4.2 [facility] Comment on above: Performed By: #### L 100.0100, L500.4050, L501.9520 ####[facility] [address] [place], [address] Glucose [Mass/Vol] 81 mg/dL Normal 70-99 [facility] Comment on above: Performed By: #### L 100.0100, L500.4050, L501.9520 ####[facility] [address] [place], [address] Potassium [Moles/Vol] 3.7 mmol/L Normal 3.3-5.1 [facility] Comment on above: Performed By: #### L 100.0100, L500.4050, L501.9520 ####[facility] [address] [place], [address] Sodium [Moles/Vol] 137 mmol/L Normal 133-145 [facility] Comment on above: Performed By: #### L 100.0100, L500.4050, L501.9520 ####[facility] [address] [place], [address] T PROT 7.3 g/dL Normal 5.9-8.4 [facility] Comment on above: Performed By: #### L 100.0100, L500.4050, L501.9520 ####[facility] [address] [place], [address] Urea nitrogen [Mass/Vol] 16 mg/dL Normal 4-19 [facility] Comment on above: Performed By: #### L 100.0100, L500.4050, L501.9520 ####[facility] [address] [place], [address] Eosinophil percentageOrdered By: Hernandez Mosley on 12-02-2024 Eosinophils/100 WBC (Bld) 0.7 % 0-5 [facility] Erythrocyte distribution wid th ratioOrdered By: Hernandez Mosley on 12-02-2024 Erythrocyte distribution width (RBC) [Ratio] 13.2 % 11.6-14.6 [facility] Erythrocyte distribution wid th standard deviationOrdered By: Hernandez Mosley on 12-02-2024 Erythrocyte distribution width (RBC) [Ratio] 45.4 fl High 35.1-43.9 [facility] Glomerular filtration rate ( GFR) estimation/1.73 sq m using serum, plasma, or whole bOrdered By: Hernandez Mosley on 12-02-2024 GFR/1.73 sq M.predicted among non-blacks MDRD (S/P/Bld) [Vol rate/Area] 81 mL/min/{1.73_m2} >60 [facility] Comment on above: mL/min/1.73m2 CKD-EP I Creatinine Equation (2020) Hematocrit Auto (Bld) [Volum e fraction]Ordered By: Hernandez Mosley on 12-02-2024 Hematocrit (Bld) [Volume fraction] 41.5 % 37-47 [facility] Hemoglobin measurementOrdere d By: Hernandez Mosley on 12-02-2024 Hemoglobin (Bld) [Mass/Vol] 13.7 g/dL 12.0-15.0 [facility] Immature granulocytes/100 WB C Auto (Bld)Ordered By: Hernandez Mosley 12-02-2024 Immature granulocytes/100 WBC (Bld) 0.500 % 0.0-0.9 [facility] Comment on above: IG% - Immature Granu locytes (promyelocytes, myelocytes and metamyelocytes) > 1% indicates that a LEFT SHIFT is Present. Laboratory - Chemistry and C hemistry - challengeOrdered By: Hernandez Mosley on 12-02-2024 AST [Catalytic activity/Vol] 22 U/L <32 [facility] MCV (mean corpuscular volume ) determinationOrdered By: Hernandez Mosley 12-02-2024 MCV (RBC) [Entitic vol] 93.3 fL 81-99 [facility] Mean corpuscular hemoglobin (MCH) determinationOrdered By: Hernandez Mosley 12-02-2024 MCH (RBC) [Entitic mass] 30.8 pg 27.0-32.0 [facility] Mean corpuscular hemoglobin concentration (MCHC) determinationOrdered By: Hernandez Mosley 12-02-2024 MCHC (RBC) [Mass/Vol] 33.0 g/dL 32-36 [facility] Mean platelet volume determi nationOrdered By: Hernandez Mosley 12-02-2024 Platelet mean volume (Bld) [Entitic vol] 9.7 fL 6.2-12.0 [facility] Monocyte percentageOrdered B y: Hernandez Mosley 12-02-2024 Monocytes/100 WBC (Bld) 9.6 % 0-10 [facility] Neutrophil percentageOrdered By: Hernandez Mosley on 12-02-2024 Neutrophils/100 WBC (Bld) 68.5 % 47-70 [facility] Nucleated red blood cell per centageOrdered By: Hernandez Mosley on 12-02-2024 Nucleated RBC/100 WBC (Bld) [Ratio] 0 % 0-5 [facility] Platelet countOrdered By: Jer Mosley on 12-02-2024 Platelets (Bld) [#/Vol] 328 10*3/uL 150-450 [facility] Potassium measurement (mass/ volume)Ordered By: Hernandez Mosley on 12-02-2024 Potassium (Unsp spec) [Mass/Vol] 3.7 mmol/L 3.3-5.1 [facility] RBC Auto (Bld) [#/Vol]Ordere d By: Hernandez Mosley on 12-02-2024 RBC (Bld) [#/Vol] 4.45 10*6/uL 4.2-5.4 [facility] Serum creatinine measurement (mass/volume)Ordered By: Hernandez Mosley on 12-02-2024 Creatinine [Mass/Vol] 0.82 mg/dL 0.70-1.20 [facility] Serum globulin measurementOr dered By: Hernandez Mosley 12-02-2024 Globulin (S) [Mass/Vol] 2.8 g/dL 2.2-4.2 [facility] Serum glucose measurement (m ass/volume)Ordered By: Hernandez Mosley 12-02-2024 Glucose [Mass/Vol] 81 mg/dL 70-99 [facility] Serum or plasma alanine bergman otransferase (ALT) measurementOrdered By: Hernandez Mosley 12-02-2024 ALT [Catalytic activity/Vol] 24 U/L <35 [facility] Serum or plasma albumin elis urement (mass/volume)Ordered By: Hernandez Mosley 12-02-2024 Albumin [Mass/Vol] 4.5 g/dL 3.4-4.8 [facility] Serum or plasma albumin/glob ulin mass ratioOrdered By: Hernandez Mosley 12-02-2024 Albumin/Globulin [Mass ratio] 1.6 {ratio} 0.9-2.4 [facility] Serum or plasma alkaline radha sphatase measurementOrdered By: Hernandez Mosley on 12-02-2024 ALP [Catalytic activity/Vol] 82 U/L 35-104 [facility] Serum or plasma calcium elis urement (mass/volume)Ordered By: Hernandez Mosley on 12-02-2024 Calcium [Mass/Vol] 9.5 mg/dL 7.6-11.0 [facility] Serum or plasma urea nitroge n measurement (mass/volume)Ordered By: Hernandez Mosley on 12-02-2024 Urea nitrogen [Mass/Vol] 16 mg/dL 4-19 [facility] Sodium levelOrdered By: Hernandez Mosley on 12-02-2024 Sodium [Moles/Vol] 137 mmol/L 133-145 [facility] TSH DL <= 0.005 mIU/L QnOrde red By: Hernandez Mosley on 12-02-2024 TSH Qn 2.390 uIU/mL 0.300-4.200 [facility] Thyroid Stim Hormone (TSH)on 12-02-2024 TSH 2.390 uIU/mL Normal 0.300-4.200 [facility] Comment on above: Performed By: #### L 100.0100, L500.4050, L501.9520 ####[facility] [address] [place], [address] Total proteinOrdered By: Hernandez Mosley on 12-02-2024 Protein [Mass/Vol] 7.3 g/dL 5.9-8.4 [facility] White blood cell (WBC) count Ordered By: Hernandez Mosley on 12-02-2024 WBC (Bld) [#/Vol] 11.0 10*3/uL 4.4-11.0 [facility] Misc.on 11-07-2024 [facility] Misc. COMMENT Normal . [facility] Comment on above: Order Comment: [id number] 4USTEKUNUMAB LEVELS RED FRZ Result Comment: Test Ordered: [id number] Ustekinumab Drug + Antibody Ustekinumab 4.2 ug/mL [...] R, et al. Clin Gastroenterol Hepatol 2017;15: 8322-8753. 4. Loreto CONNELL et al. Br J Dermatol;2015:173;855-857. 5. Rashaun H, et al. PLOS ONE DOI;10:1371/journal.pone.4535076. 6. Yue Mccarthy et al. Br J Dermatol 2014;170:261-273. These tests were developed and their performance characteristics determined by [employer]. They have not been cleared or approved by the Food and Drug Administration. However, both drug and anti-drug antibody assays have been developed and validated in accordance with FDA Guidance for Industry documents: Bioanalytical Method Validation (2013) and Assay Development and Validation for Immunogenicity Testing of Therapeutic Protein Products (2016). Performed at: [facility] [address] [place] [id number] Sound Mixer: Gustavo Garcia MD, Phone: [phone] Performed at: [address] [id number] Sound Mixer: Bhaskar Mane PhD, Phone: [phone] Performed By: #### L 500.4050, L3410.9998, L100.0100, L101.9900, L501.6710 ####[facility] [address] [place], [address] Absolute lymphocyte countOrd ered By: Stanley Godwin on 10-28-2024 Lymphocytes Auto (Unsp spec) [#/Vol] 1.87 10*3/uL 0.83-4.51 [facility] Absolute neutrophil countOrd ered By: Stanley Godwin on 10-28-2024 Neutrophils (Bld) [#/Vol] 5.2 10*3/uL 2.0-7.7 [facility] Anion gap in Serum or Plasma Ordered By: Stanleyelias Godwin on 10-28-2024 Anion gap [Moles/Vol] 13 mmol/L 5- [facility] Automated lymphocyte count a s percentage of total leukocytesOrdered By: Stanleyelias Godwin on 10-28-2024 Lymphocytes/100 WBC Auto (Unsp spec) 23.0 % - [facility] BUN/creatinine ratioOrdered By: Stanleyelias Godwin on 10-28-2024 Urea nitrogen/Creatinine [Mass ratio] 20.4 mg/mg High 10- [facility] Basophil percentageOrdered B y: Stanleyelias Godwin on 10-28-2024 Basophils/100 WBC (Bld) 1.0 % 0-1 [facility] Bilirubin, totalOrdered By: Stanleyelias Godwin on 10-28-2024 Bilirubin [Mass/Vol] 0.43 mg/dL 0.00-1.30 [facility] CBC W/Diff, Automatedon Absolute Lymph 1.87 X10 3/uL Normal 0.83-4.51 [facility] Comment on above: Performed By: #### L 500.4050, L3410.9998, L100.0100, L101.9900, L501.6710 ####[facility] [address] [place], [address] Absolute Neut 5.2 X10 3/uL Normal 2.0-7.7 [facility] Comment on above: Performed By: #### L 500.4050, L3410.9998, L100.0100, L101.9900, L501.6710 ####[facility] [address] [place], [address] Basophils/100 WBC (Bld) 1.0 % Normal 0-1 [facility] Comment on above: Performed By: #### L 500.4050, L3410.9998, L100.0100, L101.9900, L501.6710 ####[facility] [address] [place], [address] Eosinophils/100 WBC (Bld) 1.0 % Normal 0-5 [facility] Comment on above: Performed By: #### L 500.4050, L3410.9998, L100.0100, L101.9900, L501.6710 ####[facility] [address] [place], [address] Erythrocyte distribution width (RBC) [Ratio] 12.7 % Normal 11.6-14.6 [facility] Comment on above: Performed By: #### L 500.4050, L3410.9998, L100.0100, L101.9900, L501.6710 ####[facility] [address] [place], [address] Hematocrit (Bld) [Volume fraction] 41.7 % Normal 37-47 [facility] Comment on above: Performed By: #### L 500.4050, L3410.9998, L100.0100, L101.9900, L501.6710 ####[facility] [address] [place], [address] Hemoglobin (Bld) [Mass/Vol] 13.9 g/dL Normal 12.0-15.0 [facility] Comment on above: Performed By: #### L 500.4050, L3410.9998, L100.0100, L101.9900, L501.6710 ####[facility] [address] [place], [address] IG% 0.400 Normal 0.0-0.9 [facility] Comment on above: Result Comment: IG% - Immature Granulocytes (promyelocytes, myelocytes and metamyelocytes) > 1% indicates that a LEFT SHIFT is Present. Performed By: #### L 500.4050, L3410.9998, L100.0100, L101.9900, L501.6710 ####[facility] [address] [place], [address] Lymphocytes/100 WBC (Bld) 23.0 % Normal 19-41 [facility] Comment on above: Performed By: #### L 500.4050, L3410.9998, L100.0100, L101.9900, L501.6710 ####[facility] [address] [place], [address] MCH (RBC) [Entitic mass] 30.8 pg Normal 27.0-32.0 [facility] Comment on above: Performed By: #### L 500.4050, L3410.9998, L100.0100, L101.9900, L501.6710 ####[facility] [address] [place], [address] MCHC (RBC) [Mass/Vol] 33.3 g/dL Normal 32-36 [facility] Comment on above: Performed By: #### L 500.4050, L3410.9998, L100.0100, L101.9900, L501.6710 ####[facility] [address] [place], [address] MCV (RBC) [Entitic vol] 92.3 fL Normal 81-99 [facility] Comment on above: Performed By: #### L 500.4050, L3410.9998, L100.0100, L101.9900, L501.6710 ####[facility] [address] [place], [address] Monocytes/100 WBC (Bld) 10.1 % High 0-10 [facility] Comment on above: Performed By: #### L 500.4050, L3410.9998, L100.0100, L101.9900, L501.6710 ####[facility] [address] [place], [address] Neutrophils/100 WBC (Bld) 64.5 % Normal 47-70 [facility] Comment on above: Performed By: #### L 500.4050, L3410.9998, L100.0100, L101.9900, L501.6710 ####[facility] [address] [place], [address] Nucleated RBC (Bld) [#/Vol] 0 10*3/uL Normal 0-5 [facility] Comment on above: Performed By: #### L 500.4050, L3410.9998, L100.0100, L101.9900, L501.6710 ####[facility] [address] [place], [address] Platelet mean volume (Bld) [Entitic vol] 10.1 fL Normal 6.2-12.0 [facility] Comment on above: Performed By: #### L 500.4050, L3410.9998, L100.0100, L101.9900, L501.6710 ####[facility] [address] [place], [address] Platelets (Bld) [#/Vol] 319 10*3/uL Normal 150-450 [facility] Comment on above: Performed By: #### L 500.4050, L3410.9998, L100.0100, L101.9900, L501.6710 ####[facility] [address] [place], [address] RBC (Bld) [#/Vol] 4.52 10*6/uL Normal 4.2-5.4 [facility] Comment on above: Performed By: #### L 500.4050, L3410.9998, L100.0100, L101.9900, L501.6710 ####[facility] [address] [place], [address] RDW SD 43.3 fl Normal 35.1-43.9 [facility] Comment on above: Performed By: #### L 500.4050, L3410.9998, L100.0100, L101.9900, L501.6710 ####[facility] [address] [place], [place], [address] WBC (Bld) [#/Vol] 8.1 10*3/uL Normal 4.4-11.0 [facility] Comment on above: Performed By: #### L 500.4050, L3410.9998, L100.0100, L101.9900, L501.6710 ####[facility] [address] [place], [place], [id number] CRPon 10-28-2024 C-REACTIVE PROT 6.21 mg/L High 0.0-3.0 [facility] Comment on above: Performed By: #### L 500.4050, L3410.9998, L100.0100, L101.9900, L501.6710 ####[facility] [address] [place], [place], [address] CRP [Mass/Vol]Ordered By: Ra jeri Godwin on 10-28-2024 C-Reactive Protein Extended Range 6.21 mg/L High 0.0-3.0 [facility] Carbon dioxide, total [Moles /volume] in Central venous bloodOrdered By: Stanley Godwin on 10-28-2024 CO2 [Moles/Vol] 25.4 mmol/L 21.0-32.0 [facility] Chloride assayOrdered By: Ra jeri Godwin on 10-28-2024 Chloride [Moles/Vol] 99 mmol/L 98-108 [facility] Comprehensive Metabolic Prof ilon 10-28-2024 Albumin [Mass/Vol] 4.3 g/dL Normal 3.4-4.8 [facility] Comment on above: Order Comment: [id number] 4 Performed By: #### L 500.4050, L3410.9998, L100.0100, L101.9900, L501.6710 ####[facility] [address] [place], [address] Albumin/Globulin [Mass ratio] 1.5 {ratio} Normal 0.9-2.4 [facility] Comment on above: Order Comment: [id number] 4 Performed By: #### L 500.4050, L3410.9998, L100.0100, L101.9900, L501.6710 ####[facility] [address] [place], [address] ALK PHOS 93 U/L Normal 35-104 [facility] Comment on above: Order Comment: [id number] 4 Performed By: #### L 500.4050, L3410.9998, L100.0100, L101.9900, L501.6710 ####[facility] [address] [place], [address] ALT [Catalytic activity/Vol] 19 U/L Normal <=34 [facility] Comment on above: Order Comment: [id number] 4 Performed By: #### L 500.4050, L3410.9998, L100.0100, L101.9900, L501.6710 ####[facility] [address] [place], [address] AST [Catalytic activity/Vol] 18 U/L Normal <=31 [facility] Comment on above: Order Comment: [id number] 4 Performed By: #### L 500.4050, L3410.9998, L100.0100, L101.9900, L501.6710 ####[facility] [address] [place], [address] Bilirubin [Mass/Vol] 0.43 mg/dL Normal 0.00-1.30 [facility] Comment on above: Order Comment: [id number] 4 Performed By: #### L 500.4050, L3410.9998, L100.0100, L101.9900, L501.6710 ####[facility] [address] [place], [address] BUN/CRE 20.4 RATIO High 10-20 [facility] Comment on above: Order Comment: [id number] 4 Performed By: #### L 500.4050, L3410.9998, L100.0100, L101.9900, L501.6710 ####[facility] [address] [place], [address] Calcium [Mass/Vol] 9.2 mg/dL Normal 7.6-11.0 [facility] Comment on above: Order Comment: [id number] 4 Performed By: #### L 500.4050, L3410.9998, L100.0100, L101.9900, L501.6710 ####[facility] [address] [place], [address] Chloride [Moles/Vol] 99 mmol/L Normal 98-108 [facility] Comment on above: Order Comment: [id number] 4 Performed By: #### L 500.4050, L3410.9998, L100.0100, L101.9900, L501.6710 ####[facility] [address] [place], [address] CO2 [Moles/Vol] 25.4 mmol/L Normal 21.0-32.0 [facility] Comment on above: Order Comment: [id number] 4 Performed By: #### L 500.4050, L3410.9998, L100.0100, L101.9900, L501.6710 ####[facility] [address] [place], [address] Creatinine [Mass/Vol] 0.72 mg/dL Normal 0.70-1.20 [facility] Comment on above: Order Comment: [id number] 4 Performed By: #### L 500.4050, L3410.9998, L100.0100, L101.9900, L501.6710 ####[facility] [address] [place], [address] GAP 13 Normal 5-15 [facility] Comment on above: Order Comment: [id number] 4 Performed By: #### L 500.4050, L3410.9998, L100.0100, L101.9900, L501.6710 ####[facility] [address] [place], [address] GFR/1.73 sq M.predicted among non-blacks MDRD (S/P/Bld) [Vol rate/Area] 94 mL/min/{1.73_m2} Normal >60 [facility] Comment on above: Order Comment: [id number] 4 Result Comment: mL/m in/1.73m2 CKD-EPI Creatinine Equation (2020) Performed By: #### L 500.4050, L3410.9998, L100.0100, L101.9900, L501.6710 ####[facility] [address] [place], [address] Globulin (S) [Mass/Vol] 2.9 g/dL Normal 2.2-4.2 [facility] Comment on above: Order Comment: [id number] 4 Performed By: #### L 500.4050, L3410.9998, L100.0100, L101.9900, L501.6710 ####[facility] [address] [place], [address] Glucose [Mass/Vol] 96 mg/dL Normal 70-99 [facility] Comment on above: Order Comment: [id number] Performed By: #### L 500.4050, L3410.9998, L100.0100, L101.9900, [id number] ####[facility] [address] [place], [address] Potassium [Moles/Vol] 3.9 mmol/L Normal 3.3-5.1 [facility] Comment on above: Order Comment: [id number] Performed By: #### L 500.4050, L3410.9998, L100.0100, L101.9900, L501.6710 ####[facility] [address] [place], [address] Sodium [Moles/Vol] 137 mmol/L Normal 133-145 [facility] Comment on above: Order Comment: [id number] Performed By: #### L 500.4050, L3410.9998, L100.0100, L101.9900, L501.6710 ####[facility] [address] [place], [address] T PROT 7.2 g/dL Normal 5.9-8.4 [facility] Comment on above: Order Comment: [id number] Performed By: #### L 500.4050, L3410.9998, L100.0100, L101.9900, L501.6710 ####[facility] [address] [place], [address] Urea nitrogen [Mass/Vol] 15 mg/dL Normal 4-19 [facility] Comment on above: Order Comment: [id number] Performed By: #### L 500.4050, L3410.9998, L100.0100, L101.9900, L501.6710 ####[facility] [address] [place], [address] Eosinophil percentageOrdered By: Stanley Friend on 10-28-2024 Eosinophils/100 WBC (Bld) 1.0 % 0-5 [facility] Erythrocyte Sed Rateon 10-28 SED RATE 2 mm/hr Normal 0-30 [facility] Comment on above: Performed By: #### L 500.4050, L3410.9998, L100.0100, L101.9900, L501.6710 ####[facility] [address] [place], [address] Erythrocyte distribution wid th (RBC) [Ratio]Ordered By: Stanley Godwin on 10-28-2024 Erythrocyte distribution width (RBC) [Entitic vol] 43.3 fL 35.1-43.9 [facility] Erythrocyte distribution wid th ratioOrdered By: Stanley Godwin on 10-28-2024 Erythrocyte distribution width (RBC) [Ratio] 12.7 % 11.6-14.6 [facility] Erythrocyte distribution wid th standard deviationOrdered By: Stanley Godwin on 10-28-2024 Erythrocyte distribution width (RBC) [Ratio] 43.3 fl 35.1-43.9 [facility] Erythrocyte sedimentation ra teOrdered By: Stanley Godwin on 10-28-2024 ESR (Bld) [Velocity] 2 mm/h 0-30 [facility] GFR/1.73 sq M.predicted dayday g non-blacks MDRD (S/P/Bld) [Vol rate/Area]Ordered By: Stanley Godwin on 10-28-2024 Estimated GFR (MDRD) Non-Af Amer 94 >60 [facility] Comment on above: mL/min/1.73m2 CKD-EP I Creatinine Equation (2020) Gastroenterology Visit Repor ton 10-28-2024 Gastroenterology Visit Report [facility] Gastroenterology [address] [place] [address] OFFICE VISIT Date of Service: 10/28/24 MR#: [id number] Acct: [id number] Name: NELSONSofyaIVETTE Rep #: [id number] : 1960 Provider: Stanley Godwin DO Age/Sex: 64/F Location: [facility] Status: Signed Intake Vital Signs 10/07/24 [...] to the office today for follow up. [facility] hospitalization ..16-8.16 for abdominal pain. EGD 03.20.16???scope could not be advanced through duodenal bulb due to concentric narrowing less likely mass; no obvious ulcerations; duodenitis with duodenal ulcers; gastritis; healing prepyloric ulcer. H.Pylori neg Prior workup: ?CT abd/pel 09.21.23???colonic diverticulosis with diverticulitis *[facility] hospitalization 3.10.14-3 for management of abdominal pain [...] GI s (more content not included)... Normal [facility] Glomerular filtration rate ( GFR) estimation/1.73 sq m using serum, plasma, or whole bOrdered By: Stanley Godwin on 10-28-2024 GFR/1.73 sq M.predicted among non-blacks MDRD (S/P/Bld) [Vol rate/Area] 94 mL/min/{1.73_m2} >60 [facility] Comment on above: mL/min/1.73m2 CKD-EP I Creatinine Equation (2020) Hematocrit Auto (Bld) [Volum e fraction]Ordered By: Stanley Godwin on 10-28-2024 Hematocrit (Bld) [Volume fraction] 41.7 % 37-47 [facility] Hemoglobin measurementOrdere d By: Stanley Godwin on 10-28-2024 Hemoglobin (Bld) [Mass/Vol] 13.9 g/dL 12.0-15.0 [facility] Immature granulocytes/100 WB C Auto (Bld)Ordered By: Stanley Godwin on 10-28-2024 Immature granulocytes/100 WBC (Bld) 0.400 % 0.0-0.9 [facility] Comment on above: IG% - Immature Granu locytes (promyelocytes, myelocytes and metamyelocytes) > 1% indicates that a LEFT SHIFT is Present. Laboratory - Chemistry and C hemistry - challengeOrdered By: Stanley Godwin on 10-28-2024 AST [Catalytic activity/Vol] 18 U/L <32 [facility] Lymphocytes Auto (Unsp spec) [#/Vol]Ordered By: Stanley Godwin on 10-28-2024 Lymphocytes (Bld) [#/Vol] 1.87 10*3/uL 0.83-4.51 [facility] Lymphocytes/100 WBC Auto (Un sp spec)Ordered By: Stanley Godwin on 10-28-2024 Lymphocytes/100 WBC (Bld) 23.0 % 19-41 [facility] MCV (mean corpuscular volume ) determinationOrdered By: Stanley Godwin on 10-28-2024 MCV (RBC) [Entitic vol] 92.3 fL 81-99 [facility] Mean corpuscular hemoglobin (MCH) determinationOrdered By: Stanley Godwin on 10-28-2024 MCH (RBC) [Entitic mass] 30.8 pg 27.0-32.0 [facility] Mean corpuscular hemoglobin concentration (MCHC) determinationOrdered By: Stanley Godwin on 10-28-2024 MCHC (RBC) [Mass/Vol] 33.3 g/dL 32-36 [facility] Mean platelet volume determi nationOrdered By: Stanley Godwin on 10-28-2024 Platelet mean volume (Bld) [Entitic vol] 10.1 fL 6.2-12.0 [facility] Monocyte percentageOrdered B y: Stanley Godwin on 10-28-2024 Monocytes/100 WBC (Bld) 10.1 % High 0-10 [facility] Neutrophil percentageOrdered By: Stanley Godwin on 10-28-2024 Neutrophils/100 WBC (Bld) 64.5 % 47-70 [facility] No Panel InformationOrdered By: Stanley Godwin on 10-28-2024 Miscellaneous Test COMMENT . [facility] Comment on above: Test Ordered: [id number] Ustekinumab Drug + AntibodyUstekinumab 4.2 ug/mL ES [...] Head et al. Clin Gastroenterol Hepatol 2017;15: 5503-9933.4. Loreto SP, et al. Br J Dermatol;2015:173;855-857.5. Rashaun H, et al. PLOS ONE DOI;10:1371/journal.pone.5653758.6. Yue L, et al. Br J Dermatol 2014;170:261-273.These tests were developed and their performancecharacteristics determined by [employer]. They have not beencleared or approved by the Food and Drug Administration.However, both drug and anti-drug antibody assays have beendeveloped and validated in accordance with FDA Guidance forIndustry documents: Bioanalytical Method Validation (2013)and Assay Development and Validation for ImmunogenicityTesting of Therapeutic Protein Products (2016).Performed at: [employer] [address] [id number] Director: Gustavo Garcia MD, Phone: [phone] at: [facility] [id number] Director: Bhaskar Mane PhD, Phone: [phone] Nucleated red blood cell per centageOrdered By: Stanley Godwin on 10-28-2024 Nucleated RBC/100 WBC (Bld) [Ratio] 0 % 0-5 [facility] Platelet countOrdered By: Ra jeri Godwin on 10-28-2024 Platelets (Bld) [#/Vol] 319 10*3/uL 150-450 [facility] Potassium (Unsp spec) [Mass/ Vol]Ordered By: Stanley Godwin on 10-28-2024 Potassium [Moles/Vol] 3.9 mmol/L 3.3-5.1 [facility] Potassium measurement (mass/ volume)Ordered By: Stanley Godwin on 10-28-2024 Potassium (Unsp spec) [Mass/Vol] 3.9 mmol/L 3.3-5.1 [facility] RBC Auto (Bld) [#/Vol]Ordere d By: Stanley Godwin on 10-28-2024 RBC (Bld) [#/Vol] 4.52 10*6/uL 4.2-5.4 [facility] Serum creatinine measurement (mass/volume)Ordered By: Stanley Godwin on 10-28-2024 Creatinine [Mass/Vol] 0.72 mg/dL 0.70-1.20 [facility] Serum globulin measurementOr dered By: Stanley Godwin on 10-28-2024 Globulin (S) [Mass/Vol] 2.9 g/dL 2.2-4.2 [facility] Serum glucose measurement (m ass/volume)Ordered By: Stanley Godwin on 10-28-2024 Glucose [Mass/Vol] 96 mg/dL 70-99 [facility] Serum or plasma C reactive p rotein measurement (mass/volume)Ordered By: Stanley Godwin on 10-28-2024 CRP [Mass/Vol] 6.21 mg/L High 0.0-3.0 [facility] Serum or plasma alanine bergman otransferase (ALT) measurementOrdered By: Stanley Godwin on 10-28-2024 ALT [Catalytic activity/Vol] 19 U/L <35 [facility] Serum or plasma albumin elis urement (mass/volume)Ordered By: Stanley Godwin on 10-28-2024 Albumin [Mass/Vol] 4.3 g/dL 3.4-4.8 [facility] Serum or plasma albumin/glob ulin mass ratioOrdered By: Stanley Godwin on 10-28-2024 Albumin/Globulin [Mass ratio] 1.5 {ratio} 0.9-2.4 [facility] Serum or plasma alkaline radha sphatase measurementOrdered By: Stanley Godwin on 10-28-2024 ALP [Catalytic activity/Vol] 93 U/L 35-104 [facility] Serum or plasma calcium elis urement (mass/volume)Ordered By: Stanley Godwin on 10-28-2024 Calcium [Mass/Vol] 9.2 mg/dL 7.6-11.0 [facility] Serum or plasma urea nitroge n measurement (mass/volume)Ordered By: Stanley Godwin on 10-28-2024 Urea nitrogen [Mass/Vol] 15 mg/dL 4-19 [facility] Sodium levelOrdered By: Armen farriscortney Godwin on 10-28-2024 Sodium [Moles/Vol] 137 mmol/L 133-145 [facility] Total proteinOrdered By: José Antonio mccartycortney Godwin on 10-28-2024 Protein [Mass/Vol] 7.2 g/dL 5.9-8.4 [facility] White blood cell (WBC) count Ordered By: Stanleyjeri Godwin on 10-28-2024 WBC (Bld) [#/Vol] 8.1 10*3/uL 4.4-11.0 [facility] Fluor Guidance for Spine Inj on 10-07-2024 Fluor Guidance for Spine Inj [facility] Imaging Services [address] [place] [address] [id number] Fluor Guidance for Spine Inj MR#: [id number] Acct: [id number] Name: JUDY REAGAN ANN Rep #: [id number] : 1960 F 64 From: Jose Roberto Berg i, DO PCP: Dr. Hernandez Mosley MD Status: [facility] Study: Fluor Guidance for Spine Inj Date of Exam: Exam# [id number] Ordering Dr: Montana Quiñonez MD PROCEDURE: Fluoroscopy [...] Montana Quiñonez MD; Dr. Hernandez Mosley MD General Cleaner: Signed [facility] MR/POSTOP.ANEon 10-07-2024 MR/POSTOP.[facility] Medical Records Department [address] [place] [address] Anesthesia Postop Eval I 10/07/24 1208 MR#: [id number] Acct: [id number] Name: JUDY REAGAN ANN Rep #: [id number] : 1960 64 From: Montse Nicole CRNA PCP: Dr. Hernandez Mosley MD Status:REG SDC Y Race: C Location: [place] [address] Anesthesia: Postop Eval I Current Vital Signs [...] completed: Yes 10/07/24 1209 Date Montse Nicole BANQUET COORDINATOR Cosigner Signature: Date CC: Signed [facility] MR/RYBKDAXM1vm 10-07-2024 MR/POSTOPAN2 [facility] Medical Records Department [address] [place] [address] Anesthesia Postop Eval II 10/07/24 1226 MR#: [id number] Acct: [id number] Name: JUDY REAGAN ANN Rep #: [id number] : 1960 64 From: Yeimy Duggan PCP: Dr. Hernandez Mosley MD Status:REG SDC Y Race: C Location: [place] [address] Anesthesia Postop Eval I Sum Postop Eval Completion status Anesthesia document: Postop Eval 1 completed: Yes Anesthesia Postop Eval I Summary Anesthesia Postop Eval I Summary: Anesthesia Postop Eval I: Assessment Summary Airway patent Yes 10/07/24 12:09 BANQUET COORDINATOR.LMIL Spontaneous unlabored Yes 10/07/24 12:09 BANQUET COORDINATOR.LMIL respirations Mental status Awake 10/07/24 12:09 BANQUET COORDINATOR.LMIL nausea No 10/07/24 12:09 BANQUET COORDINATOR.LMIL Vomiting No 10/07/24 12:09 BANQUET COORDINATOR.LMIL Anesthesia Postop Eval I: Fluid Summary Crystalloid volume administer 10 10/07/24 12:09 BANQUET COORDINATOR.LMIL (ml) Colloids volume administered ( ml) Blood Product volume administered (ml) Total IV fluid infused 10 10/07/24 12:09 BANQUET COORDINATOR.LMIL Anesthesia Postop Eval I: Summary Notes Anesthesia Complication No 10/07/24 12:09 BANQUET COORDINATOR.LMIL Anesthesia Complication Comment: Post-operative progress note Anesthesia: Postop Eval II Evaluation Mental status: Awake Pain Level: 3 nausea: No Vomiting: No 10/07/24 1226 Date Yeimy Arzate Signature: Date CC: Signed Normal [facility] Operative Reporton 5 Operative Report [facility] Medical Records Department [address] [place] [address] Operative Report 10/07/24 1200 MR#: [id number] Acct: [id number] Name: JUDY REAGAN ANN Rep #: [id number] : 1960 64 From: Montana Quiñonez MD PCP: Dr. Hernandez Mosley MD Status:REG [facility] Location: [place] [address] Operative Report (Standard) Operative Information Date of Procedure: 10/07/24 Pre-Operative Diagnosis: Lumbosacral radiculopathy, lumbosacral degenerative disc disease, lumbosacral spinal stenosis, postlaminectomy syndrome of the lumbar spine Post-Operative Diagnosis: Lumbosacral radiculopathy, lumbosacral degenerative disc disease, lumbosacral spinal stenosis, postlaminectomy syndrome of the lumbar spine Surgery/Procedure Performed: Diagnostic/therapeutic caudal epidural steroid injection under fluoroscopic guidance. supervisor photostat: No Type of Anesthesia: Local MAC RN [...] MD; Dr. Hernandez Mosley MD Signed Normal [facility] Abdomen/Pelvis WITH Contrast on 08-12-2024 Abdomen/Pelvis WITH Contrast [facility] Imaging Services [address] [place] [address] 268181 Abdomen/Pelvis WITH Contrast MR#: [id number] Acct: [id number] Name: JUDY REAGAN Rep #: [id number] : 1960 F 64 From: Montana Dillard MD PCP: Dr. Hernandez Mosley MD Status: REG CLI Study: Abdomen/Pelvis WITH Contrast Date of Exam: Exam# [id number] Ordering Dr: Stanley Godwin DO [id number] STUDY: CT ABDOMEN AND PELVIS WITH CONTRAST [...] Dr. 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 No auck-ugi-mwmquvw products taken to assist. Non-smoker. No other [...] drainage ( (more content not included)... Normal [facility] Miscellaneous Lab Procedureo n 05-28-2024 MISC LAB TEST Normal [facility] Comment on above: Order Comment: Comme nts: [id number] levels; FROZEN Result Comment: Scan kiarra image report available in EMR Performed By: #### L 500.4050, L501.6710, L101.9900, L801.1541, L100.0100 ####[facility] [address] [place], [address] Chest PA and Lateralon 05-27 Chest PA and Lateral [facility] Imaging Services [address] [place], [place] [address] Chest PA and Lateral MR#: [id number] Acct: [id number] Name: JUDY REAGAN ANN Rep #: [id number] : 1960 F 64 From: Rubio head MD PCP: Dr. Hernandez Mosley MD Status: [facility] Study: Chest PA and Lateral Date of Exam: 05/27/24 Exam# [id number] Ordering Dr: Hernandez Mosley MD [id number] STUDY: X-RAY CHEST REASON FOR EXAM: Female, [...] 11:59 EST Reading Location ID and State: [facility] / [place] , Service support , CC: Dr. Hernandez Mosley MD General Cleaner: Signed [facility] M100.678on 05-27-2024 M100.678 Copy of report sent to Infection Control Printer MS#[id number] 05/27/24 1143 VSICK. SARS-CoV-2 (COVID 19) A Positive A INFLUENZA A Negative INFLUENZA B Negative RSV PCR Negative SARS-CoV-2 (COVID 19 PCR) [facility] Comment on above: Performed By: #### M 100.678 ####[facility] [address] [facility] [place], [place], [address] Breast Limited Unilateralon 05-24-2024 Breast Limited Unilateral [facility] Imaging Services [address] [place], [place] [address] Breast Limited Unilateral MR#: [id number] Acct: [id number] Name: JUDY REAGAN Rep #: [id number] : 1960 F 64 From: Getachew jimenez MD PCP: Dr. Hernandez Mosley MD Status: REG CLI Study: Breast Limited Unilateral Date of Exam: Exam# [id number] Ordering Dr: Hernandez Mosley MD [id number] STUDY: ULTRASOUND BREAST - LEFT REASON FOR [...] EDT , CC: Dr. Hernandez Mosley MD General Cleaner: Signed [facility] DIAG MAMM W/CAD, UNILATon DIAG MAMM W/CAD, UNILAT [facility] Imaging Services [address] [place] [address] DIAG MAMM W/CAD, UNILAT MR#: [id number] Acct: [id number] Name: JUDY REAGAN ANN Rep #: [id number] : 1960 F 64 From: Getachew jimenez MD PCP: Dr. Hernandez Mosley MD Status: [facility] Study: DIAG MAMM W/CAD, UNILAT Date of Exam: 05/24/24 Exam# [id number] Ordering Dr: Hernandez Mosley MD [id number] MAMMOGRAPHY - UNILATERAL DIAGNOSTIC: LEFT BREAST REASON [...] EDT , CC: Dr. Hernandez Mosley MD General Cleaner: Signed Normal [facility] SCRN MAMM (CAD)W/NIHARIKA BILATo n 05-22-2024 SCRN MAMM (CAD)W/NIHARIKA BILAT [facility] Imaging Services [address] [place], [place] [address] SCRN MAMM (CAD)W/NIHARIKA BILAT MR#: [id number] Acct: [id number] Name: JUDY REAGAN Rep #: [id number] : 1960 F 64 From: Getachew jimenez MD PCP: Dr. Hernandez Mosley MD Status: REG [facility] Study: SCRN MAMM (CAD)W/NIHARIKA BILAT Date of Exam: 04/25 Exam# [id number] Ordering Dr: Hernandez Mosley MD [id number] MAMMOGRAPHY - BILATERAL SCREENING REASON FOR EXAM: [...] delay biopsy of a clinically suspicious abnormality. [id number] Electronically Signed: Getachew Wayne MD at 11:26 EDT , CC: Dr. Hernandez Mosley MD General Cleaner: Signed Normal [facility] CBC W/Diff, Automatedon 10- Absolute Lymph 2.13 X10 3/uL Normal 0.83-4.51 [facility] Comment on above: Performed By: #### L 500.4050, L501.6710, L101.9900, L801.1541, L100.0100 #### [facility] [address] [place], [address] Absolute Neut 6.2 X10 3/uL Normal 2.0-7.7 [facility] Comment on above: Performed By: #### L 500.4050, L501.6710, L101.9900, L801.1541, L100.0100 #### [facility] [address] [place], [address] Basophils/100 WBC (Bld) 0.7 % Normal 0-1 [facility] Comment on above: Performed By: #### L 500.4050, L501.6710, L101.9900, L801.1541, L100.0100 #### [facility] [address] [place], [address] Eosinophils/100 WBC (Bld) 0.6 % Normal 0-5 [facility] Comment on above: Performed By: #### L 500.4050, L501.6710, L101.9900, L801.1541, L100.0100 #### [facility] [address] [place], [address] Erythrocyte distribution width (RBC) [Ratio] 13.2 % Normal 11.6-14.6 [facility] Comment on above: Performed By: #### L 500.4050, L501.6710, L101.9900, L801.1541, L100.0100 #### [facility] [address] [place], [address] Hematocrit (Bld) [Volume fraction] 43.2 % Normal 37-47 [facility] Comment on above: Performed By: #### L 500.4050, L501.6710, L101.9900, L801.1541, L100.0100 #### [facility] [address] [place], [address] Hemoglobin (Bld) [Mass/Vol] 13.9 g/dL Normal 12.0-15.0 [facility] Comment on above: Performed By: #### L 500.4050, L501.6710, L101.9900, L801.1541, L100.0100 #### [facility] [address] [place], [address] IG% 0.400 Normal 0.0-0.9 [facility] Comment on above: Result Comment: IG% - Immature Granulocytes (promyelocytes, myelocytes and metamyelocytes) > 1% indicates that a LEFT SHIFT is Present. Performed By: #### L 500.4050, L501.6710, L101.9900, L801.1541, L100.0100 #### [facility] [address] [place], [address] Lymphocytes/100 WBC (Bld) 22.4 % Normal 19-41 [facility] Comment on above: Performed By: #### L 500.4050, L501.6710, L101.9900, L801.1541, L100.0100 #### [facility] [address] [place], [address] MCH (RBC) [Entitic mass] 29.9 pg Normal 27.0-32.0 [facility] Comment on above: Performed By: #### L 500.4050, L501.6710, L101.9900, L801.1541, L100.0100 #### [facility] [address] [place], [address] MCHC (RBC) [Mass/Vol] 32.2 g/dL Normal 32-36 [facility] Comment on above: Performed By: #### L 500.4050, L501.6710, L101.9900, L801.1541, L100.0100 #### [facility] [address] [place], [address] MCV (RBC) [Entitic vol] 92.9 fL Normal 81-99 [facility] Comment on above: Performed By: #### L 500.4050, L501.6710, L101.9900, L801.1541, L100.0100 #### [facility] [address] [place], [address] Monocytes/100 WBC (Bld) 11.1 % High 0-10 [facility] Comment on above: Performed By: #### L 500.4050, L501.6710, L101.9900, L801.1541, L100.0100 #### [facility] [address] [place], [address] Neutrophils/100 WBC (Bld) 64.8 % Normal 47-70 [facility] Comment on above: Performed By: #### L 500.4050, L501.6710, L101.9900, L801.1541, L100.0100 #### [facility] [address] [place], [address] Nucleated RBC (Bld) [#/Vol] 0 10*3/uL Normal 0-5 [facility] Comment on above: Performed By: #### L 500.4050, L501.6710, L101.9900, L801.1541, L100.0100 #### [facility] [address] [place], [address] Platelet mean volume (Bld) [Entitic vol] 9.6 fL Normal 6.2-12.0 [facility] Comment on above: Performed By: #### L 500.4050, L501.6710, L101.9900, L801.1541, L100.0100 #### [facility] [address] [place], [address] Platelets (Bld) [#/Vol] 395 10*3/uL Normal 150-450 [facility] Comment on above: Performed By: #### L 500.4050, L501.6710, L101.9900, L801.1541, L100.0100 #### [facility] [address] [place], [address] RBC (Bld) [#/Vol] 4.65 10*6/uL Normal 4.2-5.4 [facility] Comment on above: Performed By: #### L 500.4050, L501.6710, L101.9900, L801.1541, L100.0100 #### [facility] [address] [place], [address] RDW SD 44.6 fl High 35.1-43.9 [facility] Comment on above: Performed By: #### L 500.4050, L501.6710, L101.9900, L801.1541, L100.0100 #### [facility] [address] [place], [address] WBC (Bld) [#/Vol] 9.5 10*3/uL Normal 4.4-11.0 [facility] Comment on above: Performed By: #### L 500.4050, L501.6710, L101.9900, L801.1541, L100.0100 #### [facility] [address] [place], [address] CRPon 05-03-2024 C-REACTIVE PROT 3.04 mg/L High 0.0-3.0 [facility] Comment on above: Order Comment: [id number] 4 Result Comment: C-Re active Protein (CRP) provides useful information for the diagnosis, therapy and monitoring of inflammatory processes and associated diseases. For the evaluation of Relative Risk for Cardiovascular Disease, a High Sensitivity CRP (HSCRP) should be ordered. Performed By: #### L 500.4050, L501.6710, L101.9900, L801.1541, L100.0100 ####[facility] [address] [place], [address] Comprehensive Metabolic Prof ilon 05-03-2024 Albumin [Mass/Vol] 4.2 g/dL Normal 3.2-5.0 [facility] Comment on above: Order Comment: [id number] Performed By: #### L 500.4050, L501.6710, L101.9900, L801.1541, L100.0100 #### [facility] [address] [place], [address] Albumin/Globulin [Mass ratio] 1.2 {ratio} Normal 0.9-2.4 [facility] Comment on above: Order Comment: [id number] Performed By: #### L 500.4050, L501.6710, L101.9900, L801.1541, L100.0100 #### [facility] [address] [place], [address] ALK P 78 U/L Normal 45-117 [facility] Comment on above: Order Comment: [id number] 4 Performed By: #### L 500.4050, L501.6710, L101.9900, L801.1541, L100.0100 #### [facility] [address] [place], [address] ALT [Catalytic activity/Vol] 36 U/L Normal 13-56 [facility] Comment on above: Order Comment: [id number] 4 Performed By: #### L 500.4050, L501.6710, L101.9900, L801.1541, L100.0100 #### [facility] [address] [place], [address] AST [Catalytic activity/Vol] 18 U/L Normal 15-37 [facility] Comment on above: Order Comment: [id number] Performed By: #### L 500.4050, L501.6710, L101.9900, L801.1541, L100.0100 #### [facility] [address] [place], [address] Bilirubin [Mass/Vol] 0.70 mg/dL Normal 0.20-1.00 [facility] Comment on above: Order Comment: [id number] Result Comment: For patients on eltrombopag therapy, use of Dimension Mullins TBIL is not recommended. Performed By: #### L 500.4050, L501.6710, L101.9900, L801.1541, L100.0100 #### [facility] [address] [place], [address] BUN/CRE 21.5 RATIO High 10-20 [facility] Comment on above: Order Comment: [id number] 4 Performed By: #### L 500.4050, L501.6710, L101.9900, L801.1541, L100.0100 #### [facility] [address] [place], [address] CA,Total 9.3 mg/dL Normal 8.5-10.1 [facility] Comment on above: Order Comment: [id number] 4 Performed By: #### L 500.4050, L501.6710, L101.9900, L801.1541, L100.0100 #### [facility] [address] [place], [address] Chloride [Moles/Vol] 102 mmol/L Normal 98-107 [facility] Comment on above: Order Comment: [id number] Performed By: #### L 500.4050, L501.6710, L101.9900, L801.1541, L100.0100 #### [facility] [address] [place], [address] CO2 [Moles/Vol] 24.0 mmol/L Normal 21.0-32.0 [facility] Comment on above: Order Comment: [id number] 4 Performed By: #### L 500.4050, L501.6710, L101.9900, L801.1541, L100.0100 #### [facility] [address] [place], [address] Creatinine [Mass/Vol] 0.70 mg/dL Normal 0.55-1.02 [facility] Comment on above: Order Comment: [id number] 4 Result Comment: The validity of the calculated GFR GFRAA in patients over 70 years has not been determined. Clinical correlation is essential. Performed By: #### L 500.4050, L501.6710, L101.9900, L801.1541, L100.0100 #### [facility] [address] [place], [address] EST GFR - AA 109 mL/min Normal >60 [facility] Comment on above: Order Comment: [id number] 4 Result Comment: Afri can Croatian GFR Calc Performed By: #### L 500.4050, L501.6710, L101.9900, L801.1541, L100.0100 #### [facility] [address] [place], [address] GAP 9 Normal 5-15 [facility] Comment on above: Order Comment: [id number] 4 Performed By: #### L 500.4050, L501.6710, L101.9900, L801.1541, L100.0100 #### [facility] [address] [place], [address] GFR/1.73 sq M.predicted among non-blacks MDRD (S/P/Bld) [Vol rate/Area] 90 mL/min/{1.73_m2} Normal >60 [facility] Comment on above: Order Comment: [id number] 4 Result Comment: Non- GFR Calc Performed By: #### L 500.4050, L501.6710, L101.9900, L801.1541, L100.0100 #### [facility] [address] [place], [address] Globulin (S) [Mass/Vol] 3.4 g/dL Normal 2.2-4.2 [facility] Comment on above: Order Comment: [id number] 4 Performed By: #### L 500.4050, L501.6710, L101.9900, L801.1541, L100.0100 #### [facility] [address] [place], [address] Glucose [Mass/Vol] 99 mg/dL Normal 74-106 [facility] Comment on above: Order Comment: [id number] 4 Performed By: #### L 500.4050, L501.6710, L101.9900, L801.1541, L100.0100 #### [facility] [address] [place], [address] Potassium [Moles/Vol] 3.7 mmol/L Normal 3.5-5.1 [facility] Comment on above: Order Comment: [id number] 4 Performed By: #### L 500.4050, L501.6710, L101.9900, L801.1541, L100.0100 #### [facility] [address] [place], [address] Sodium [Moles/Vol] 135 mmol/L Low 136-145 [facility] Comment on above: Order Comment: [id number] 4 Performed By: #### L 500.4050, L501.6710, L101.9900, L801.1541, L100.0100 #### [facility] [address] [place], [address] T PROT 7.6 g/dL Normal 6.4-8.2 [facility] Comment on above: Order Comment: [id number] 4 Performed By: #### L 500.4050, L501.6710, L101.9900, L801.1541, L100.0100 #### [facility] [address] [place], [address] Urea nitrogen [Mass/Vol] 15 mg/dL Normal 7-18 [facility] Comment on above: Order Comment: [id number] 4 Performed By: #### L 500.4050, L501.6710, L101.9900, L801.1541, L100.0100 #### [facility] [address] [place], [address] Erythrocyte Sed Rateon 05-03 SED RATE 6 mm/hr Normal 0-30 [facility] Comment on above: Performed By: #### L 500.4050, L501.6710, L101.9900, L801.1541, L100.0100 #### [facility] [address] [place], [address] Gastroenterology Visit Repor ton 05-03-2024 Gastroenterology Visit Report [facility] [address] [place] [address] OFFICE VISIT Date of Service: 05/03/24 MR#: [id number] Acct: [id number] Name: JUDY REAGAN ANN Rep #: [id number] : 1960 Provider: Stanley Godwin DO Age/Sex: 64/F Location: [facility] Status: Signed Intake Vital Signs 11/24/23 [...] #1 mL 03/11/24 05/03/24 Rx syringe (Stelara) [facility] Medical History History of Crohn's disease [...] to the office today for follow up. [facility] hospitalization 03.20.16-03.23.16 for abdominal pain. EGD 03.20.16???scope could not be advanced through duodenal bulb due to concentric narrowing less likely mass; no obvious ulcerations; duodenitis with duodenal ulcers; gastritis; healing prepyloric ulcer. H.Pylori neg Prior workup: ?CT abd/pel 09.21.23???colonic diverticulosis with diverticulitis *[facility] hospitalization .10.14-09.26.23 for management of abdominal pain [...] vacation last (more content not included)... Normal [facility] HIP, UNI W/ Pelvis 2-3 Views on 04-19-2024 HIP, UNI W/ Pelvis 2-3 Views [facility] Imaging Services [address] [place], [place] [address] HIP, UNI W/ Pelvis 2-3 Views MR#: [id number] Acct: [id number] Name: JUDY REAGAN Rep #: [id number] : 1960 F 64 From: Carlos Vital MD PCP: Dr. Hernandez Mosley MD Status: [facility] Study: HIP, UNI W/ Pelvis 2-3 Views Date of Exam: Exam# [id number] Ordering Dr: Montana Quiñonez MD [id number] EXAM: XR RIGHT HIP WITH PELVIS WHEN [...] Montana Quiñonez MD; Dr. Hernandez Mosley MD General Cleaner: Signed Normal [facility] Absolute lymphocyte countOrd ered By: Sherif Benson on 09-26-2023 Lymphocytes Auto (Unsp spec) [#/Vol] 1.54 10*3/uL 0.83-4.51 [facility] Automated lymphocyte count a s percentage of total leukocytesOrdered By: Sherif Benson on 09-26-2023 Lymphocytes/100 WBC Auto (Unsp spec) 37.1 % 19-41 [facility] Basophil percentageOrdered B y: Sherif Benson on 09-26-2023 Basophils/100 WBC (Bld) 0.7 % 0-1 [facility] Chloride [Moles/Vol] 110 mmol/L 98-107 [facility] Eosinophils/100 WBC (Bld) 4.3 % 0-5 [facility] Glucose [Mass/Vol] 104 mg/dL 74-106 [facility] Comment on above: Fasting Glucose resu lt from 100 to 125 mg/dL suggests IMPAIRED HOMEOSTASIS per A.D.A. criteria. Hemoglobin (Bld) [Mass/Vol] 13.1 g/dL 12.0-15.0 [facility] Monocytes/100 WBC (Bld) 15.7 % 0-10 [facility] Neutrophils (Bld) [#/Vol] 1.7 10*3/uL 2.0-7.7 [facility] Neutrophils/100 WBC (Bld) 41.7 % 47-70 [facility] Potassium [Moles/Vol] 3.3 mmol/L 3.5-5.1 [facility] Sodium [Moles/Vol] 141 mmol/L 136-145 [facility] WBC (Bld) [#/Vol] 4.2 10*3/uL 4.4-11.0 [facility] Determination of erythrocyte mean corpuscular volume (MCV)Ordered By: Sherif Benson on 09-26-2023 MCV (RBC) [Entitic vol] 91.6 fL 81-99 [facility] Erythrocyte distribution wid th ratioOrdered By: Sherif Benson on 09-26-2023 Erythrocyte distribution width (RBC) [Ratio] 12.8 % 11.6-14.6 [facility] Erythrocyte distribution wid th standard deviationOrdered By: Sherif Benson on 09-26-2023 Erythrocyte distribution width (RBC) [Entitic vol] 42.8 fL 35.1-43.9 [facility] Hematocrit Auto (Bld) [Volum e fraction]Ordered By: Sherif Benson on 09-26-2023 Hematocrit (Bld) [Volume fraction] 40.6 % 37-47 [facility] Immature granulocytes/100 WB C Auto (Bld)Ordered By: Sherif Benson on 09-26-2023 Immature granulocytes/100 WBC (Bld) 0.500 % 0.0-0.9 [facility] Comment on above: IG% - Immature Granu locytes (promyelocytes, myelocytes and metamyelocytes) > 1% indicates that a LEFT SHIFT is Present. Laboratory - Chemistry and C hemistry - challengeOrdered By: Sherif Benson on 09-26-2023 CO2 [Moles/Vol] 27.0 mmol/L 21.0-32.0 [facility] Urea nitrogen/Creatinine [Mass ratio] 14.4 mg/mg 10-20 [facility] - Hematology and Cell countsOrdered By: Sherif Benson on 09-26-2023 MCH (RBC) [Entitic mass] 29.6 pg 27.0-32.0 [facility] MCHC (RBC) [Mass/Vol] 32.3 g/dL 32-36 [facility] Nucleated RBC/100 WBC (Bld) [Ratio] 0 % 0-5 [facility] Platelet mean volume (Bld) [Entitic vol] 9.6 fL 6.2-12.0 [facility] Platelets (Bld) [#/Vol] 296 10*3/uL 150-450 [facility] No Panel InformationOrdered By: Sherif Benson on 09-26-2023 Estimated Creatinine Clearance Calc 83.27 ml/min [facility] Estimated GFR (MDRD) Amer 110 mL/min >60 [facility] Comment on above: GFR Calc Estimated GFR (MDRD) Non-Af Amer 91 mL/min >60 [facility] Comment on above: Non- GFR Calc RBC Auto (Bld) [#/Vol]Ordere d By: Sherif Benson on 09-26-2023 RBC (Bld) [#/Vol] 4.43 10*6/uL 4.2-5.4 [facility] Serum or plasma calcium elis urement (mass/volume)Ordered By: Sherif Benson on 09-26-2023 Calcium [Mass/Vol] 8.9 mg/dL 8.5-10.1 [facility] Serum or plasma creatinine m easurement (mass/volume)Ordered By: Sherif Benson on 09-26-2023 Creatinine [Mass/Vol] 0.70 mg/dL 0.55-1.02 [facility] Comment on above: The validity of the calculated GFR & GFRAA in patients over 70 years has not been determined. Clinical correlation is essential. Serum or plasma urea nitroge n measurement (mass/volume)Ordered By: Sherif Benson on 09-26-2023 Urea nitrogen [Mass/Vol] 10 mg/dL 7-18 [facility] Thin prep Papanicolaou smear with manual screeningOrdered By: Sherif Benson on 09-26-2023 Thin prep Papanicolaou smear with manual screening 4 5-15 [facility] No Panel InformationOrdered By: Stanley Godwin on 09-25-2023 Parathyroid Hormone (Intact) 79.8 pg/mL 18.4-80.1 [facility] Absolute lymphocyte countOrd ered By: Michael Lyman on 09-24-2023 Lymphocytes Auto (Unsp spec) [#/Vol] 1.89 10*3/uL 0.83-4.51 [facility] Albumin Elph [Mass/Vol]Order ed By: Stanley Godwin on 09-24-2023 Albumin [Mass/Vol] 3.4 g/dL 2.9-4.4 [facility] Atypical P-ANCA titerOrdered By: Stanley Godwin on 09-24-2023 Neutrophil cytoplasmic Ab.perinuclear.atypical IF (S) [Titer] Negative Negative [facility] Automated lymphocyte count a s percentage of total leukocytesOrdered By: Michael Lyman on 09-24-2023 Lymphocytes/100 WBC Auto (Unsp spec) 27.2 % 19-41 [facility] Basophil percentageOrdered B y: Stanley Godwin on 09-24-2023 LDH [Catalytic activity/Vol] 166 U/L 84-246 [facility] Basophil percentageOrdered B y: Jorge L Davalos on 09-24-2023 Basophil percentage 3.3 mg/dL 2.5-4.9 [facility] Bilirubin [Mass/Vol] 0.30 mg/dL 0.20-1.00 [facility] Comment on above: For patients on eltr ombopag therapy, use of Dimension Mullins TBIL is not recommended. Protein [Mass/Vol] 6.5 g/dL 6.4-8.2 [facility] Basophil percentageOrdered B y: Michael Lyman on 09-24-2023 Basophils/100 WBC (Bld) 1.0 % 0-1 [facility] Chloride [Moles/Vol] 107 mmol/L 98-107 [facility] Eosinophils/100 WBC (Bld) 1.6 % 0-5 [facility] Glucose [Mass/Vol] 101 mg/dL 74-106 [facility] Comment on above: Fasting Glucose resu lt from 100 to 125 mg/dL suggests IMPAIRED HOMEOSTASIS per A.D.A. criteria. Hemoglobin (Bld) [Mass/Vol] 13.6 g/dL 12.0-15.0 [facility] Lactate [Moles/Vol] 0.7 mmol/L 0.4-2.0 [facility] Monocytes/100 WBC (Bld) 12.8 % 0-10 [facility] Neutrophils (Bld) [#/Vol] 4.0 10*3/uL 2.0-7.7 [facility] Neutrophils/100 WBC (Bld) 57.1 % 47-70 [facility] Potassium [Moles/Vol] 3.4 mmol/L 3.5-5.1 [facility] Sodium [Moles/Vol] 139 mmol/L 136-145 [facility] WBC (Bld) [#/Vol] 7.0 10*3/uL 4.4-11.0 [facility] Chitobioside IgA antibody as sayOrdered By: Stanley Godwin on 09-24-2023 Chitobioside IgA IA Qn 10 units 0-90 [facility] Comment on above: Negative: <80 Equivo marquez: 80-90 Positive: >90 Chocolate IgE serumOrdered B y: Stanley Godwin on 09-24-2023 Chocolate IgE Qn (S) <0.10 kU/L Class 0 [facility] Determination of erythrocyte mean corpuscular volume (MCV)Ordered By: Michael Lyman on 09-24-2023 MCV (RBC) [Entitic vol] 91.8 fL 81-99 [facility] Erythrocyte distribution wid th ratioOrdered By: Michael Lyman on 09-24-2023 Erythrocyte distribution width (RBC) [Ratio] 13.0 % 11.6-14.6 [facility] Erythrocyte distribution wid th standard deviationOrdered By: Michael Lyman on 09-24-2023 Erythrocyte distribution width (RBC) [Entitic vol] 43.7 fL 35.1-43.9 [facility] Erythrocyte sedimentation ra teOrdered By: Stanley Godwin on 09-24-2023 ESR (Bld) [Velocity] 9 mm/h 0-30 [facility] Hematocrit Auto (Bld) [Volum e fraction]Ordered By: Michael Lyman on 09-24-2023 Hematocrit (Bld) [Volume fraction] 42.8 % 37-47 [facility] Immature granulocytes/100 WB C Auto (Bld)Ordered By: Michael Lyman on 09-24-2023 Immature granulocytes/100 WBC (Bld) 0.300 % 0.0-0.9 [facility] Comment on above: IG% - Immature Granu locytes (promyelocytes, myelocytes and metamyelocytes) > 1% indicates that a LEFT SHIFT is Present. Interpretation of serum or p lasma protein pattern by immunofixation (narrative resultOrdered By: Stanley Godwin on 09-24-2023 Protein Fractions Immunofixation Angel [Interp] Not Observed g/dL Not Observed [facility] - Chemistry and C hemistry - challengeOrdered By: Jorge L Davalos on 09-24-2023 Albumin/Globulin [Mass ratio] 1.0 {ratio} 0.9-2.4 [facility] ALP [Catalytic activity/Vol] 86 U/L 45-117 [facility] ALT [Catalytic activity/Vol] 27 U/L 13-56 [facility] Globulin (S) [Mass/Vol] 3.2 g/dL 2.2-4.2 [facility] Magnesium [Mass/Vol] 2.3 mg/dL 1.6-2.6 [facility] - Chemistry and C hemistry - challengeOrdered By: Michael Lyman on 09-24-2023 CO2 [Moles/Vol] 29.0 mmol/L 21.0-32.0 [facility] Magnesium [Mass/Vol] 2.4 mg/dL 1.6-2.6 [facility] Urea nitrogen/Creatinine [Mass ratio] 16.2 mg/mg 10-20 [facility] - Hematology and Cell countsOrdered By: Michael Lyman on 09-24-2023 MCH (RBC) [Entitic mass] 29.2 pg 27.0-32.0 [facility] MCHC (RBC) [Mass/Vol] 31.8 g/dL 32-36 [facility] Nucleated RBC/100 WBC (Bld) [Ratio] 0 % 0-5 [facility] Platelet mean volume (Bld) [Entitic vol] 10.0 fL 6.2-12.0 [facility] Platelets (Bld) [#/Vol] 296 10*3/uL 150-450 [facility] - Miscellaneous t estsOrdered By: Stanley Godwin on 09-24-2023 Laboratory comment Angel (Report) Comment . [facility] Comment on above: Suggestive of Crohn' s Disease. Pattern is not conclusivefor disease behavior risk stratification. Service comment (Unsp spec) [Interp] Comment . [facility] Comment on above: Levels of Specific I [...] Laminaribioside IgG IA Qn 10 units 0-60 [facility] Comment on above: Negative:<55 Equivoc al: 55-60 Positive: >60.Previous reported result: 10 unitsEdited by: HUSSAIN on 10/18/23:1442 AMENDED REPORT 10/18/23 1442 ALCA previously reported as: 10 units Negative:<55 Equivocal: 55-60 Positive: >60 No Panel InformationOrdered By: Stanley Godwin on 09-24-2023 Addendum Document Comment . [facility] Comment on above: Protein electrophore sis scan will follow via computer,mail, or infusion rn delivery. Anti-Gliadin IgA Antibody 3 units 0-19 [facility] Comment on above: Negative 0 - 19 Weak Positive 20 - 30 Moderate to Strong Positive >30 Anti-Gliadin IgG Antibody 2 units 0-19 [facility] Comment on above: Negative 0 - 19 Weak Positive 20 - 30 Moderate to Strong Positive >30 C-Reactive Protein Extended Range 12.90 mg/L 0.0-3.0 [facility] Comment on above: C-Reactive Protein ( CRP) provides useful information for thediagnosis, therapy and monitoring of inflammatory processesand associated diseases. For the evaluation of Relative Riskfor Cardiovascular Disease, a High Sensitivity CRP (HSCRP)should be ordered. Centromere B Antibody <0.2 AI 0.0-0.9 [facility] Endomysial IgA Antibody Negative Negative [facility] Immunoglobulin G4 8 mg/dL 2-96 [facility] Immunoglobulin M 51 mg/dL 26-217 [facility] SALAS-1 Antibody <0.2 AI 0.0-0.9 [facility] Mussel Allergen IgE Antibody <0.10 kU/L Class 0 [facility] GENER[employer] MAINTENA[employer]CE MECHANIC Antibody <0.2 AI 0.0-0.9 [facility] Saccharomyces cerevisiae (Marvin)IgG 54 units 0-50 [facility] Comment on above: Negative: <45 Equivo marquez: 45-50 Positive: >50 Shrimp Allergen <0.10 kU/L Class 0 [facility] SM Antibody <0.2 AI 0.0-0.9 [facility] SS-A/Ro IgG Antibody < 0.2 AI 0.0-0.9 [facility] SS-B/La IgG Antibody < 0.2 AI 0.0-0.9 [facility] Tissue Transglutaminase IgG Ab 3 U/mL 0-5 [facility] Comment on above: Negative 0 - 5 Weak Positive 6 - 9 Positive >9 No Panel InformationOrdered By: Michael Lyman on 09-24-2023 Estimated Creatinine Clearance Calc 68.94 ml/min [facility] Estimated GFR (MDRD) Amer 103 mL/min >60 [facility] Comment on above: GFR Calc Estimated GFR (MDRD) Non-Af Amer 85 mL/min >60 [facility] Comment on above: Non- GFR Calc RBC Auto (Bld) [#/Vol]Ordere d By: Michael Lyman on 09-24-2023 RBC (Bld) [#/Vol] 4.66 10*6/uL 4.2-5.4 [facility] Serum DNA double strand anti body assay (units/volume)Ordered By: Stanley Godwin on 09-24-2023 DNA double strand Ab Qn (S) 1 [IU]/mL 0-9 [facility] Comment on above: Negative <5 Equivoca l 5 - 9 Positive >9 Serum IgG subclass 1 measure ment (mass/volume)Ordered By: Stanley Godwin on 09-24-2023 IgG subclass 1 (S) [Mass/Vol] 572 mg/dL 248-810 [facility] Serum IgG subclass 2 measure ment (mass/volume)Ordered By: Stanley Godwin on 09-24-2023 IgG subclass 2 (S) [Mass/Vol] 184 mg/dL 130-555 [facility] Serum IgG subclass 3 measure ment (mass/volume)Ordered By: Stanley Godwin on 09-24-2023 IgG subclass 3 (S) [Mass/Vol] 36 mg/dL 15-102 [facility] Serum Scl-70 antibody assay (units/volume)Ordered By: Stanley Godwin on 09-24-2023 SCL-70 extractable nuclear Ab Qn (S) <0.2 AI 0.0-0.9 [facility] Serum caeiy-2-nxhgaflm measu rement by electrophoresisOrdered By: Stanley Godwin on 09-24-2023 Alpha 1 globulin Elph [Mass/Vol] 0.2 g/dL 0.0-0.4 [facility] Alpha 1 globulin Elph [Mass/Vol] 0.8 g/dL 0.4-1.0 [facility] Serum beef IgE antibody assa y (units/volume)Ordered By: Stanley Godwin on 09-24-2023 Beef IgE Qn (S) <0.10 kU/L Class 0 [facility] Serum classic neutrophil cyt oplasmic antibody assay (units/volume)Ordered By: Stanley Godwin on 09-24-2023 Neutrophil cytoplasmic Ab.classic Qn (S) <1:20 titer Neg:<1:20 [facility] Serum codfish IgE antibody a ssay (units/volume)Ordered By: Stanley Godwin on 09-24-2023 Codfish IgE Qn (S) <0.10 kU/L Class 0 [facility] Serum corn IgE antibody assa y (units/volume)Ordered By: Stanley Godwin on 09-24-2023 [place] IgE Qn (S) <0.10 kU/L Class 0 [facility] Serum cow milk IgE antibody assay (units/volume)Ordered By: Stanley Godwin on 09-24-2023 Cow milk IgE Qn (S) <0.10 kU/L Class 0 [facility] Serum globulin measurement ( mass/volume)Ordered By: Stanley Godwin on 09-24-2023 Globulin (S) [Mass/Vol] 2.8 g/dL 2.2-3.9 [facility] Serum or plasma IgA measurem ent (mass/volume)Ordered By: Stanley Godwin on 09-24-2023 IgA [Mass/Vol] 101 mg/dL 87-352 [facility] Serum or plasma IgG measurem ent (mass/volume)Ordered By: Stanley Godwin on 09-24-2023 IgG [Mass/Vol] 882 mg/dL 586-1602 [facility] IgG [Mass/Vol] Not Reportable [facility] Serum or plasma beta globuli n measurement by electrophoresis (mass/volume)Ordered By: Stanley Godwin on 09-24-2023 Beta globulin Elph [Mass/Vol] 0.9 g/dL 0.7-1.3 [facility] Serum or plasma calcium elis urement (mass/volume)Ordered By: Michael Lyman on 09-24-2023 Calcium [Mass/Vol] 9.1 mg/dL 8.5-10.1 [facility] Serum or plasma creatinine m easurement (mass/volume)Ordered By: Michael Lyman on 09-24-2023 Creatinine [Mass/Vol] 0.74 mg/dL 0.55-1.02 [facility] Comment on above: The validity of the calculated GFR & GFRAA in patients over 70 years has not been determined. Clinical correlation is essential. Serum or plasma gamma globul in measurement by electrophoresis (mass/volume)Ordered By: Stanley Godwin on 09-24-2023 Gamma globulin Elph [Mass/Vol] 0.9 g/dL 0.4-1.8 [facility] Serum or plasma gastrin elis urement (mass/volume)Ordered By: Stanley Godwin on 09-24-2023 Gastrin [Mass/Vol] 20 pg/mL 0-115 [facility] Comment on above: Siemens Immulite 200 0 Immunochemiluminometric assay (ICMA)Values obtained with different assay methods or kits cannotbe used interchangeably. Results cannot be interpreted asabsolute evidence of the presence or absence of malignantdisease.Performed at: [address] [id number] Director: Reji Caceres MD, Phone: [phone] Serum or plasma immunoelectr ophoresis interpretation (nominal result)Ordered By: Stanley Godwin on 09-24-2023 Interpretation IEP [Interp] Comment . [facility] Comment on above: No monoclonality det ected. Serum or plasma mannobioside IgG antibody assay by immunoassay (units/volume)Ordered By: Stanley Godwin on 09-24-2023 Mannobioside IgG IA Qn 15 units 0-100 [facility] Comment on above: Negative: <90 Equivo marquez: 90-100 Positive: >100 This test was developed and its performance characteristics determined by [employer]. It has not been cleared or approved by the Food and Drug Administration. The FDA has determined that such clearance or approval is not necessary. Serum or plasma thyroid stim ulating hormone (TSH) measurement (units/volume)Ordered By: Jorge L Davalos on 09-24-2023 TSH Qn 4.56 uIU/mL 0.358-3.74 [facility] Serum or plasma urea nitroge n measurement (mass/volume)Ordered By: Michael Lyman on 09-24-2023 Urea nitrogen [Mass/Vol] 12 mg/dL 7-18 [facility] Serum peanut IgE antibody as say (units/volume)Ordered By: Stanley Godwin on 09-24-2023 Peanut IgE Qn (S) <0.10 kU/L Class 0 [facility] Serum perinuclear neutrophil cytoplasmic antibody titer by immunofluorescenceOrdered By: Stanley Godwin on 09-24-2023 Neutrophil cytoplasmic Ab.perinuclear IF (S) [Titer] <1:20 titer Neg:<1:20 [facility] Comment on above: The presence of posi tive fluorescence exhibiting P-ANCA orC-ANCA patterns alone is not specific for the diagnosis ofWegener's Granulomatosis (WG) or microscopic polyangiitis.Decisions about treatment should not be based solely onANCA IFA results. The [employer] ANCA [employer] Consensusrecommends follow up testing of positive sera with both KY-3 and MPO-ANCA enzyme immunoassays. As many as 5% serumsamples are positive only by EIA. Ref. AM J Clin Wkqjdw1101;111:507-513. Serum pork IgE antibody assa y (units/volume)Ordered By: Stanley Godwin on 09-24-2023 Pork IgE Qn (S) <0.10 kU/L Class 0 [facility] Serum salmon IgE antibody as say (units/volume)Ordered By: Stanley Godwin on 09-24-2023 [place] IgE Qn (S) <0.10 kU/L Class 0 [facility] Serum soybean IgE antibody a ssay (units/volume)Ordered By: Stanley Godwin on 09-24-2023 Soybean IgE Qn (S) <0.10 kU/L Class 0 [facility] Serum tissue transglutaminas e IgA antibody assay (units/volume)Ordered By: Stanley Godwin on 09-24-2023 tTG IgA Qn (S) <2 U/mL 0-3 [facility] Comment on above: Negative 0 - 3 Weak Positive 4 - 10 Positive >10 Tissue Transglutaminase (tTG) has been identified as the endomysial antigen. Studies have demonstr- ated that endomysial IgA antibodies have over 99% specificity for gluten sensitive enteropathy. Serum tuna IgE antibody assa y (units/volume)Ordered By: Stanley Godwin on 09-24-2023 Tuna IgE Qn (S) <0.10 kU/L Class 0 [facility] Serum wheat IgE antibody ass ay (units/volume)Ordered By: Stanley Godwin on 09-24-2023 Wheat IgE Qn (S) <0.10 kU/L Class 0 [facility] Serum whole egg IgE antibody assay (units/volume)Ordered By: Stanley Godwin on 09-24-2023 Whole [place] IgE Qn (S) <0.10 kU/L Class 0 [facility] Comment on above: Performed at: [address] [id number] Director: Reji Caceres MD, Phone: [phone] Thin prep Papanicolaou smear with manual screeningOrdered By: Stanley Godwin on 09-24-2023 Thin prep Papanicolaou smear with manual screening 88.0 ng/mL 0.0-101.8 [facility] Comment on above: Chromogranin A perfo rmed by [employer] KRYPTORmethodologyValues obtained with different assay methods or kits cannotbe used interchangeably.Performed at: - [address] [id number] Director: Bhaskar Mane PhD, Phone: [phone] at: - [facility] [address] [id number] Director: Reji Caceres MD, Phone: [phone] Thin prep Papanicolaou smear with manual screening 1.3 0.7-1.7 [facility] Thin prep Papanicolaou smear with manual screeningOrdered By: Jorge L Davalos on 09-24-2023 Thin prep Papanicolaou smear with manual screening 3.3 g/dL 3.2-5.0 [facility] Thin prep Papanicolaou smear with manual screening 15 U/L 15-37 [facility] Thin prep Papanicolaou smear with manual screeningOrdered By: Michael Lyman on 09-24-2023 Thin prep Papanicolaou smear with manual screening 3 5-15 [facility] Total protein bloodOrdered B y: Stanley Citlali on 09-24-2023 Protein [Mass/Vol] 6.2 g/dL 6.0-8.5 [facility] Absolute lymphocyte countOrd ered By: Hernandez Mosley on 09-21-2023 Lymphocytes Auto (Unsp spec) [#/Vol] 1.44 10*3/uL 0.83-4.51 [facility] Automated lymphocyte count a s percentage of total leukocytesOrdered By: Hernandez Mosley on 09-21-2023 Lymphocytes/100 WBC Auto (Unsp spec) 13.4 % 19-41 [facility] Basophil percentageOrdered B y: Hernandez Mosley on 09-21-2023 Basophils/100 WBC (Bld) 0.5 % 0-1 [facility] Bilirubin [Mass/Vol] 0.80 mg/dL 0.20-1.00 [facility] Comment on above: For patients on eltr ombopag therapy, use of Dimension Mullins TBIL is not recommended. Chloride [Moles/Vol] 101 mmol/L 98-107 [facility] Eosinophils/100 WBC (Bld) 0.5 % 0-5 [facility] Glucose [Mass/Vol] 99 mg/dL 74-106 [facility] Hemoglobin (Bld) [Mass/Vol] 13.5 g/dL 12.0-15.0 [facility] Monocytes/100 WBC (Bld) 8.0 % 0-10 [facility] Neutrophils (Bld) [#/Vol] 8.3 10*3/uL 2.0-7.7 [facility] Neutrophils/100 WBC (Bld) 77.3 % 47-70 [facility] Potassium [Moles/Vol] 3.6 mmol/L 3.5-5.1 [facility] Protein [Mass/Vol] 7.5 g/dL 6.4-8.2 [facility] Sodium [Moles/Vol] 135 mmol/L 136-145 [facility] WBC (Bld) [#/Vol] 10.7 10*3/uL 4.4-11.0 [facility] Clostridioides difficile nuc leic acid assay by PCROrdered By: Hernandez Mosley on 09-21-2023 C. difficile DNA BROCK+probe Ql (Unsp spec) [facility] Determination of erythrocyte mean corpuscular volume (MCV)Ordered By: Hernandez Mosley on 09-21-2023 MCV (RBC) [Entitic vol] 90.5 fL 81-99 [facility] Erythrocyte distribution wid th ratioOrdered By: Hernandez Mosley on 09-21-2023 Erythrocyte distribution width (RBC) [Ratio] 12.8 % 11.6-14.6 [facility] Erythrocyte distribution wid th standard deviationOrdered By: Hernandez Mosley on 09-21-2023 Erythrocyte distribution width (RBC) [Entitic vol] 42.5 fL 35.1-43.9 [facility] Hematocrit Auto (Bld) [Volum e fraction]Ordered By: Hernandez Mosley 09-21-2023 Hematocrit (Bld) [Volume fraction] 42.0 % 37-47 [facility] Immature granulocytes/100 WB C Auto (Bld)Ordered By: Hernandez Mosley 09-21-2023 Immature granulocytes/100 WBC (Bld) 0.300 % 0.0-0.9 [facility] Comment on above: IG% - Immature Granu locytes (promyelocytes, myelocytes and metamyelocytes) > 1% indicates that a LEFT SHIFT is Present. Laboratory - Chemistry and C hemistry - challengeOrdered By: Hernandez Mosley on 09-21-2023 Albumin/Globulin [Mass ratio] 1.2 {ratio} 0.9-2.4 [facility] ALP [Catalytic activity/Vol] 110 U/L 45-117 [facility] ALT [Catalytic activity/Vol] 36 U/L 13-56 [facility] CO2 [Moles/Vol] 27.0 mmol/L 21.0-32.0 [facility] Globulin (S) [Mass/Vol] 3.4 g/dL 2.2-4.2 [facility] Urea nitrogen/Creatinine [Mass ratio] 15.0 mg/mg 10-20 [facility] Laboratory - Hematology and Cell countsOrdered By: Hernandez Mosley on 09-21-2023 MCH (RBC) [Entitic mass] 29.1 pg 27.0-32.0 [facility] MCHC (RBC) [Mass/Vol] 32.1 g/dL 32-36 [facility] Nucleated RBC/100 WBC (Bld) [Ratio] 0 % 0-5 [facility] Platelet mean volume (Bld) [Entitic vol] 9.9 fL 6.2-12.0 [facility] Platelets (Bld) [#/Vol] 306 10*3/uL 150-450 [facility] Lower GI hemoglobin IA Ql (S tl)Ordered By: Hernandez Mosley on 09-21-2023 Stool Occult Blood (PIEDAD) Positive [facility] No Panel InformationOrdered By: Hernandez Mosley on 09-21-2023 Miscellaneous Test See comment [facility] Comment on above: TEST RESULTS LIMITSS tool CultureSalmonella/Shigella Screen Final reportResult 1No Salmonella or Shigella recovered.Campylobacter Culture Final reportResult 1No Campylobacter species isolated.E coli Shiga Toxin EIA Negative Negative TESTING PERFORMED AT [facility]. ORIGINAL REPORT ON FILE IN LAB CONTAINS ADDITIONAL TEST SITE INFORMATION. Estimated GFR (MDRD) Amer 104 mL/min >60 [facility] Comment on above: GFR Calc Estimated GFR (MDRD) Non-Af Amer 86 mL/min >60 [facility] Comment on above: Non- GFR Calc Ova and parasitesOrdered By: Hernandez Mosley on 09-21-2023 Ova and parasites identified LM Nom (Unsp spec) [facility] RBC Auto (Bld) [#/Vol]Ordere d By: Hernandez Mosley on 09-21-2023 RBC (Bld) [#/Vol] 4.64 10*6/uL 4.2-5.4 [facility] Serum or plasma calcium elis urement (mass/volume)Ordered By: Hernandez Mosley on 09-21-2023 Calcium [Mass/Vol] 9.1 mg/dL 8.5-10.1 [facility] Serum or plasma creatinine m easurement (mass/volume)Ordered By: Hernandez Mosley on 09-21-2023 Creatinine [Mass/Vol] 0.73 mg/dL 0.55-1.02 [facility] Comment on above: The validity of the calculated GFR & GFRAA in patients over 70 years has not been determined. Clinical correlation is essential. Serum or plasma urea nitroge n measurement (mass/volume)Ordered By: Hernandez Mosley on 09-21-2023 Urea nitrogen [Mass/Vol] 11 mg/dL 7-18 [facility] Thin prep Papanicolaou smear with manual screeningOrdered By: Hernandez Mosley on 09-21-2023 Thin prep Papanicolaou smear with manual screening 4.1 g/dL 3.2-5.0 [facility] Thin prep Papanicolaou smear with manual screening 19 U/L 15-37 [facility] Thin prep Papanicolaou smear with manual screening 7 5-15 [facility] Absolute lymphocyte countOrd ered By: Hernandez Mosley on 09-18-2023 Lymphocytes Auto (Unsp spec) [#/Vol] 1.91 10*3/uL 0.83-4.51 [facility] Automated lymphocyte count a s percentage of total leukocytesOrdered By: Hernandez Mosley on 09-18-2023 Lymphocytes/100 WBC Auto (Unsp spec) 31.3 % 19-41 [facility] Basophil percentageOrdered B y: Hernandez Mosley on 09-18-2023 Basophils/100 WBC (Bld) 0.8 % 0-1 [facility] Bilirubin [Mass/Vol] 0.30 mg/dL 0.20-1.00 [facility] Comment on above: For patients on eltr ombopag therapy, use of Dimension Mullins TBIL is not recommended. Chloride [Moles/Vol] 105 mmol/L 98-107 [facility] Eosinophils/100 WBC (Bld) 1.8 % 0-5 [facility] Glucose [Mass/Vol] 103 mg/dL 74-106 [facility] Comment on above: Fasting Glucose resu lt from 100 to 125 mg/dL suggests IMPAIRED HOMEOSTASIS per A.D.A. criteria. Hemoglobin (Bld) [Mass/Vol] 13.9 g/dL 12.0-15.0 [facility] Monocytes/100 WBC (Bld) 10.3 % 0-10 [facility] Neutrophils (Bld) [#/Vol] 3.4 10*3/uL 2.0-7.7 [facility] Neutrophils/100 WBC (Bld) 55.3 % 47-70 [facility] Potassium [Moles/Vol] 3.7 mmol/L 3.5-5.1 [facility] Protein [Mass/Vol] 7.9 g/dL 6.4-8.2 [facility] Sodium [Moles/Vol] 137 mmol/L 136-145 [facility] WBC (Bld) [#/Vol] 6.1 10*3/uL 4.4-11.0 [facility] Determination of erythrocyte mean corpuscular volume (MCV)Ordered By: Hernandez Mosley on 09-18-2023 MCV (RBC) [Entitic vol] 91.6 fL 81-99 [facility] Erythrocyte distribution wid th ratioOrdered By: Hernandez Mosley on 09-18-2023 Erythrocyte distribution width (RBC) [Ratio] 12.9 % 11.6-14.6 [facility] Erythrocyte distribution wid th standard deviationOrdered By: Hernandez Mosley on 09-18-2023 Erythrocyte distribution width (RBC) [Entitic vol] 43.3 fL 35.1-43.9 [facility] Hematocrit Auto (Bld) [Volum e fraction]Ordered By: Hernandez Mosley on 09-18-2023 Hematocrit (Bld) [Volume fraction] 43.9 % 37-47 [facility] Immature granulocytes/100 WB C Auto (Bld)Ordered By: Hernandez Mosley on 09-18-2023 Immature granulocytes/100 WBC (Bld) 0.500 % 0.0-0.9 [facility] Comment on above: IG% - Immature Granu locytes (promyelocytes, myelocytes and metamyelocytes) > 1% indicates that a LEFT SHIFT is Present. Laboratory - Chemistry and C hemistry - challengeOrdered By: Hernandez Mosley on 09-18-2023 Albumin/Globulin [Mass ratio] 1.0 {ratio} 0.9-2.4 [facility] ALP [Catalytic activity/Vol] 115 U/L 45-117 [facility] ALT [Catalytic activity/Vol] 33 U/L 13-56 [facility] CO2 [Moles/Vol] 25.0 mmol/L 21.0-32.0 [facility] Globulin (S) [Mass/Vol] 3.9 g/dL 2.2-4.2 [facility] Urea nitrogen/Creatinine [Mass ratio] 19.8 mg/mg 10-20 [facility] Laboratory - Hematology and Cell countsOrdered By: Hernandez Mosley on 09-18-2023 MCH (RBC) [Entitic mass] 29.0 pg 27.0-32.0 [facility] MCHC (RBC) [Mass/Vol] 31.7 g/dL 32-36 [facility] Nucleated RBC/100 WBC (Bld) [Ratio] 0 % 0-5 [facility] Platelet mean volume (Bld) [Entitic vol] 10.3 fL 6.2-12.0 [facility] Platelets (Bld) [#/Vol] 324 10*3/uL 150-450 [facility] No Panel InformationOrdered By: Hernandez Mosley on 09-18-2023 Estimated GFR (MDRD) Amer 100 mL/min >60 [facility] Comment on above: GFR Calc Estimated GFR (MDRD) Non-Af Amer 83 mL/min >60 [facility] Comment on above: Non- GFR Calc RBC Auto (Bld) [#/Vol]Ordere d By: Hernandez Mosley on 09-18-2023 RBC (Bld) [#/Vol] 4.79 10*6/uL 4.2-5.4 [facility] Serum or plasma calcium elis urement (mass/volume)Ordered By: Hernandez Mosley on 09-18-2023 Calcium [Mass/Vol] 9.5 mg/dL 8.5-10.1 [facility] Serum or plasma creatinine m easurement (mass/volume)Ordered By: Hernandez Mosley on 09-18-2023 Creatinine [Mass/Vol] 0.76 mg/dL 0.55-1.02 [facility] Comment on above: The validity of the calculated GFR & GFRAA in patients over 70 years has not been determined. Clinical correlation is essential. Serum or plasma thyroid stim ulating hormone (TSH) measurement (units/volume)Ordered By: Hernandez Mosley on 09-18-2023 TSH Qn 1.21 uIU/mL 0.358-3.74 [facility] Serum or plasma urea nitroge n measurement (mass/volume)Ordered By: Hernandez Mosley on 09-18-2023 Urea nitrogen [Mass/Vol] 15 mg/dL 7-18 [facility] Thin prep Papanicolaou smear with manual screeningOrdered By: Hernandez Mosley on 09-18-2023 Thin prep Papanicolaou smear with manual screening 4.0 g/dL 3.2-5.0 [facility] Thin prep Papanicolaou smear with manual screening 20 U/L 15-37 [facility] Thin prep Papanicolaou smear with manual screening 7 5-15 [facility] Absolute lymphocyte countOrd ered By: Hernandez Mosley on 07-05-2023 Lymphocytes Auto (Unsp spec) [#/Vol] 2.32 10*3/uL 0.83-4.51 [facility] Basophil percentageOrdered B y: Hernandez Mosley on 07-05-2023 Basophils/100 WBC (Bld) 0.7 % 0-1 [facility] Bilirubin [Mass/Vol] 0.30 mg/dL 0.20-1.00 [facility] Comment on above: For patients on eltr ombopag therapy, use of Dimension Mullins TBIL is not recommended. Chloride [Moles/Vol] 100 mmol/L 98-107 [facility] Cholesterol [Mass/Vol] 205 mg/dL <200 [facility] Comment on above: <200 mg/dL Desirable 200-240 mg/dL Borderline >240 mg/dL High Risk Eosinophils/100 WBC (Bld) 1.0 % 0-5 [facility] Glucose [Mass/Vol] 145 mg/dL 74-106 [facility] Comment on above: Fasting Glucose resu lt greater than or equal to 126 mg/dL suggests DIABETES MELLITUS per A.D.A. criteria. Neutrophils (Bld) [#/Vol] 5.2 10*3/uL 2.0-7.7 [facility] Neutrophils/100 WBC (Bld) 62.2 % 47-70 [facility] Potassium [Moles/Vol] 3.7 mmol/L 3.5-5.1 [facility] Protein [Mass/Vol] 7.3 g/dL 6.4-8.2 [facility] Sodium [Moles/Vol] 137 mmol/L 136-145 [facility] Triglyceride [Mass/Vol] 94 mg/dL <199 [facility] Comment on above: The drugs N-Acetylcy steine and Metamizole may falsely depress this assay.Serum Triglycerides Reference Interval Normal <150 mg/dL Borderline high 150 - 199 mg/dL High 200 - 499 mg/dL Very High > or = 500 mg/dL WBC (Bld) [#/Vol] 8.3 10*3/uL 4.4-11.0 [facility] Blood erythrocytes count (nu mber/volume)Ordered By: Hernandez Mosley on 07-05-2023 RBC (Bld) [#/Vol] 4.13 10*6/uL 4.2-5.4 [facility] Blood hemoglobin measurement (mass/volume)Ordered By: Hernanedz Mosley on 07-05-2023 Hemoglobin (Bld) [Mass/Vol] 12.3 g/dL 12.0-15.0 [facility] Blood lymphocytes/100 leukoc ytesOrdered By: Hernandez Mosley on 07-05-2023 Lymphocytes/100 WBC (Bld) 27.9 % 19-41 [facility] Blood monocytes/100 leukocyt esOrdered By: Hernandez Mosley on 07-05-2023 Monocytes/100 WBC (Bld) 7.0 % 0-10 [facility] Blood platelet mean volumeOr dered By: Hernandez Mosley on 07-05-2023 Platelet mean volume (Bld) [Entitic vol] 9.8 fL 6.2-12.0 [facility] Determination of erythrocyte mean corpuscular volume (MCV)Ordered By: Hernandez Mosley on 07-05-2023 MCV (RBC) [Entitic vol] 93.9 fL 81-99 [facility] Hematocrit Auto (Bld) [Volum e fraction]Ordered By: Hernandez Dimitri on 07-05-2023 Hematocrit (Bld) [Volume fraction] 38.8 % 37-47 [facility] Laboratory - Chemistry and C hemistry - challengeOrdered By: [facility] 07-05-2023 ALP [Catalytic activity/Vol] 93 U/L 45-117 [facility] ALT [Catalytic activity/Vol] 23 U/L 13-56 [facility] CO2 [Moles/Vol] 28.0 mmol/L 21.0-32.0 [facility] Globulin (S) [Mass/Vol] 3.9 g/dL 2.2-4.2 [facility] Urea nitrogen/Creatinine [Mass ratio] 12.0 mg/mg 10-20 [facility] Laboratory - Hematology and Cell countsOrdered By: Hernandez Dimitri 07-05-2023 Erythrocyte distribution width (RBC) [Entitic vol] 43.9 fL 35.1-43.9 [facility] Erythrocyte distribution width (RBC) [Ratio] 12.7 % 11.6-14.6 [facility] Immature granulocytes/100 WBC (Bld) 1.200 % 0.0-0.9 [facility] Comment on above: IG% - Immature Granu locytes (promyelocytes, myelocytes and metamyelocytes) > 1% indicates that a LEFT SHIFT is Present. MCH (RBC) [Entitic mass] 29.8 pg 27.0-32.0 [facility] Nucleated RBC/100 WBC (Bld) [Ratio] 0 % 0-5 [facility] MCHC Auto (RBC) [Mass/Vol]Or dered By: Hernandez Mosley on 07-05-2023 MCHC (RBC) [Mass/Vol] 31.7 g/dL 32-36 [facility] No Panel InformationOrdered By: Hernandez Mosley on 07-05-2023 Estimated GFR (MDRD) Amer 101 mL/min >60 [facility] Comment on above: GFR Calc Estimated GFR (MDRD) Non-Af Amer 83 mL/min >60 [facility] Comment on above: Non- GFR Calc Thyroid Stimulating Hormone (TSH) 0.67 uIU/mL 0.358-3.74 [facility] Platelets bldOrdered By: Hernandez Mosley on 07-05-2023 Platelets (Bld) [#/Vol] 537 10*3/uL 150-450 [facility] Serum or plasma albumin elis urement (mass/volume)Ordered By: Hernandez Mosley on 07-05-2023 Albumin [Mass/Vol] 3.4 g/dL 3.2-5.0 [facility] Serum or plasma albumin/glob ulin mass ratioOrdered By: Hernandez Mosley 07-05-2023 Albumin/Globulin [Mass ratio] 0.9 {ratio} 0.9-2.4 [facility] Serum or plasma calcium elis urement (mass/volume)Ordered By: Hernandez Mosley 07-05-2023 Calcium [Mass/Vol] 8.7 mg/dL 8.5-10.1 [facility] Serum or plasma cholesterol in HDL measurement (mass/volume)Ordered By: Hernandez Mosley 07-05-2023 Cholesterol in HDL [Mass/Vol] 62 mg/dL >40 [facility] Comment on above: The drugs N-Acetylcy steine and Metamizole may falsely depress this assay. Reference Range HDL <40 mg/dL Low HDL Cholesterol HDL >or= 60 mg/dL High HDL Cholesterol Serum or plasma cholesterol in VLDL measurement (mass/volume)Ordered By: Hernandez Mosley 07-05-2023 Cholesterol in VLDL [Mass/Vol] 19 mg/dL 5-40 [facility] Serum or plasma creatinine m easurement (mass/volume)Ordered By: Hernandez Mosley 07-05-2023 Creatinine [Mass/Vol] 0.75 mg/dL 0.55-1.02 [facility] Comment on above: The validity of the calculated GFR & GFRAA in patients over 70 years has not been determined. Clinical correlation is essential. Serum or plasma low density lipoprotein (LDL) cholesterol measurement (mass/volume)Ordered By: Hernandez Mosley on 07-05-2023 Cholesterol in LDL [Mass/Vol] 124 mg/dL 0-130 [facility] Serum or plasma urea nitroge n measurement (mass/volume)Ordered By: Hernandez Mosley on 07-05-2023 Urea nitrogen [Mass/Vol] 9 mg/dL 7-18 [facility] Thin prep Papanicolaou smear with manual screeningOrdered By: Hernandez Mosley on 07-05-2023 Thin prep Papanicolaou smear with manual screening 17 U/L 15-37 [facility] Thin prep Papanicolaou smear with manual screening 9 5-15 [facility] Glucose Glucometer (BldC) [M ass/Vol]Ordered By: Shabbir Birch on 06-21-2023 Glucose [Mass/Vol] 119 mg/dL 74-106 [facility] Comment on above: MANAGEMENT OF PATIEN T CARE PER NURSING PROTOCOL Absolute lymphocyte countOrd ered By: Shabbir Birch on 06-19-2023 Lymphocytes Auto (Unsp spec) [#/Vol] 1.75 10*3/uL 0.83-4.51 [facility] Basophil percentageOrdered B y: Shabbir Birch on 06-19-2023 Basophils/100 WBC (Bld) 0.7 % 0-1 [facility] Chloride [Moles/Vol] 101 mmol/L 98-107 [facility] Eosinophils/100 WBC (Bld) 0.4 % 0-5 [facility] Glucose [Mass/Vol] 99 mg/dL 74-106 [facility] Neutrophils (Bld) [#/Vol] 8.0 10*3/uL 2.0-7.7 [facility] Neutrophils/100 WBC (Bld) 74.7 % 47-70 [facility] Potassium [Moles/Vol] 3.7 mmol/L 3.5-5.1 [facility] Sodium [Moles/Vol] 136 mmol/L 136-145 [facility] WBC (Bld) [#/Vol] 10.7 10*3/uL 4.4-11.0 [facility] Blood erythrocytes count (nu mber/volume)Ordered By: Shabbir Birch on 06-19-2023 RBC (Bld) [#/Vol] 5.17 10*6/uL 4.2-5.4 [facility] Blood hemoglobin measurement (mass/volume)Ordered By: Shabbir Birch on 06-19-2023 Hemoglobin (Bld) [Mass/Vol] 15.4 g/dL 12.0-15.0 [facility] Blood lymphocytes/100 leukoc ytesOrdered By: Shabbir iBrch on 06-19-2023 Lymphocytes/100 WBC (Bld) 16.3 % 19-41 [facility] Blood monocytes/100 leukocyt esOrdered By: Shabbir Birch on 06-19-2023 Monocytes/100 WBC (Bld) 7.5 % 0-10 [facility] Blood platelet mean volumeOr dered By: Shabbir Birch on 06-19-2023 Platelet mean volume (Bld) [Entitic vol] 10.1 fL 6.2-12.0 [facility] Determination of erythrocyte mean corpuscular volume (MCV)Ordered By: Shabbir Birch on 06-19-2023 MCV (RBC) [Entitic vol] 91.5 fL 81-99 [facility] Hematocrit Auto (Bld) [Volum e fraction]Ordered By: Shabbir Birch on 06-19-2023 Hematocrit (Bld) [Volume fraction] 47.3 % 37-47 [facility] INR in Blood by Coagulation assayOrdered By: Shabbir Birch on 06-19-2023 INR Coag (Bld) [Relative time] 1.0 {INR} [facility] Laboratory - Chemistry and C hemistry - challengeOrdered By: Shabbir Birch on 06-19-2023 CO2 [Moles/Vol] 29.0 mmol/L 21.0-32.0 [facility] Magnesium [Mass/Vol] 2.0 mg/dL 1.6-2.6 [facility] Urea nitrogen/Creatinine [Mass ratio] 18.5 mg/mg 10-20 [facility] Laboratory - CoagulationOrde red By: Shabbir Birch on 06-19-2023 aPTT Coag (Bld) [Time] 28.8 s 24.1-36.2 [facility] PT Coag (PPP) [Time] 12.6 s 11.7-14.9 [facility] Laboratory - Hematology and Cell countsOrdered By: Shabbir Birch on 06-19-2023 Erythrocyte distribution width (RBC) [Entitic vol] 44.7 fL 35.1-43.9 [facility] Erythrocyte distribution width (RBC) [Ratio] 13.2 % 11.6-14.6 [facility] Immature granulocytes/100 WBC (Bld) 0.400 % 0.0-0.9 [facility] Comment on above: IG% - Immature Granu locytes (promyelocytes, myelocytes and metamyelocytes) > 1% indicates that a LEFT SHIFT is Present. MCH (RBC) [Entitic mass] 29.8 pg 27.0-32.0 [facility] Nucleated RBC/100 WBC (Bld) [Ratio] 0 % 0-5 [facility] MCHC Auto (RBC) [Mass/Vol]Or dered By: Shabbir Birch on 06-19-2023 MCHC (RBC) [Mass/Vol] 32.6 g/dL 32-36 [facility] No Panel InformationOrdered By: Shabbir Birch on 06-19-2023 Estimated GFR (MDRD) Amer 92 mL/min >60 [facility] Comment on above: GFR Calc Estimated GFR (MDRD) Non-Af Amer 76 mL/min >60 [facility] Comment on above: Non- GFR Calc Fructosamine 236 umol/L 0-285 [facility] Comment on above: Published reference interval for apparently healthysubjects between age 20 and 60 is 205 - 285 umol/L and in apoorly controlled diabetic population is 228 - 563 umol/Lwith a mean of 396 umol/L.Performed at: - [address] [id number] Director: Bhaskar Mane PhD, Phone: [phone] Nasal Screen MRSA/MSSA [facility] Platelets bldOrdered By: Edward Birch on 06-19-2023 Platelets (Bld) [#/Vol] 388 10*3/uL 150-450 [facility] Serum or plasma calcium elis urement (mass/volume)Ordered By: Shabbir Birch on 06-19-2023 Calcium [Mass/Vol] 9.7 mg/dL 8.5-10.1 [facility] Serum or plasma creatinine m easurement (mass/volume)Ordered By: Shabbir Birch on 06-19-2023 Creatinine [Mass/Vol] 0.81 mg/dL 0.55-1.02 [facility] Comment on above: The validity of the calculated GFR & GFRAA in patients over 70 years has not been determined. Clinical correlation is essential. Serum or plasma urea nitroge n measurement (mass/volume)Ordered By: Shabbir Birch on 06-19-2023 Urea nitrogen [Mass/Vol] 15 mg/dL 7-18 [facility] Thin prep Papanicolaou smear with manual screeningOrdered By: Garland Lainayumiko on 06-19-2023 Thin prep Papanicolaou smear with manual screening 6 5-15 [facility] Whole blood hemoglobin A1c/t otal hemoglobin ratio (mass fraction)Ordered By: Shabbir Birch on 06-19-2023 HbA1c (Bld) [Mass fraction] 5.5 % 3.8-5.6 [facility] Comment on above: Normal < 5.7 % Predi abetic 5.7 - 6.4 % Diabetic >or= 6.5 % Please note range changes. Culture, urineOrdered By: Dr Jaswinder Wolfe on 10-15-2022 Bacteria identified Cx Nom (U) Pseudomonas aeruginosa [facility] Absolute lymphocyte countOrd ered By: Dr. Hernández on 10-14-2022 Lymphocytes Auto (Unsp spec) [#/Vol] 1.48 10*3/uL 0.83-4.51 [facility] Basophil percentageOrdered B y: Dr. Hernández on 10-14-2022 Basophils/100 WBC (Bld) 0.4 % 0-1 [facility] Chloride [Moles/Vol] 100 mmol/L 98-107 [facility] Eosinophils/100 WBC (Bld) 1.9 % 0-5 [facility] Glucose [Mass/Vol] 145 mg/dL 74-106 [facility] Comment on above: Fasting Glucose resu lt greater than or equal to 126 mg/dL suggests DIABETES MELLITUS per A.D.A. criteria. Neutrophils (Bld) [#/Vol] 6.9 10*3/uL 2.0-7.7 [facility] Neutrophils/100 WBC (Bld) 71.5 % 47-70 [facility] Potassium [Moles/Vol] 3.4 mmol/L 3.5-5.1 [facility] Sodium [Moles/Vol] 137 mmol/L 136-145 [facility] WBC (Bld) [#/Vol] 9.6 10*3/uL 4.4-11.0 [facility] Blood erythrocytes count (nu mber/volume)Ordered By: Dr. Hernández on 10-14-2022 RBC (Bld) [#/Vol] 3.56 10*6/uL 4.2-5.4 [facility] Blood hemoglobin measurement (mass/volume)Ordered By: Dr. Hernández on 10-14-2022 Hemoglobin (Bld) [Mass/Vol] 10.7 g/dL 12.0-15.0 [facility] Blood lymphocytes/100 leukoc ytesOrdered By: Dr. Hernández on 10-14-2022 Lymphocytes/100 WBC (Bld) 15.4 % 19-41 [facility] Blood monocytes/100 leukocyt esOrdered By: Dr. Hernández on 10-14-2022 Monocytes/100 WBC (Bld) 10.3 % 0-10 [facility] Blood platelet mean volumeOr dered By: Dr. Hernández on 10-14-2022 Platelet mean volume (Bld) [Entitic vol] 10.0 fL 6.2-12.0 [facility] Determination of erythrocyte mean corpuscular volume (MCV)Ordered By: Dr. Hernández on 10-14-2022 MCV (RBC) [Entitic vol] 95.8 fL 81-99 [facility] Hematocrit Auto (Bld) [Volum e fraction]Ordered By: Dr. Hernández on 10-14-2022 Hematocrit (Bld) [Volume fraction] 34.1 % 37-47 [facility] Laboratory - Chemistry and C hemistry - challengeOrdered By: Dr. Hernández on 10-14-2022 CO2 [Moles/Vol] 29.0 mmol/L 21.0-32.0 [facility] Urea nitrogen/Creatinine [Mass ratio] 8.3 mg/mg 10-20 [facility] Laboratory - Hematology and Cell countsOrdered By: Dr. Hernández on 10-14-2022 Erythrocyte distribution width (RBC) [Entitic vol] 45.2 fL 35.1-43.9 [facility] Erythrocyte distribution width (RBC) [Ratio] 12.8 % 11.6-14.6 [facility] Immature granulocytes/100 WBC (Bld) 0.500 % 0.0-0.9 [facility] Comment on above: IG% - Immature Granu locytes (promyelocytes, myelocytes and metamyelocytes) > 1% indicates that a LEFT SHIFT is Present. MCH (RBC) [Entitic mass] 30.1 pg 27.0-32.0 [facility] Nucleated RBC/100 WBC (Bld) [Ratio] 0 % 0-5 [facility] MCHC Auto (RBC) [Mass/Vol]Or dered By: Dr. Hernández on 10-14-2022 MCHC (RBC) [Mass/Vol] 31.4 g/dL 32-36 [facility] No Panel InformationOrdered By: Dr. Hernández on 10-14-2022 Estimated Creatinine Clearance Calc 86.10 ml/min [facility] Estimated GFR (MDRD) Amer 131 mL/min >60 [facility] Comment on above: GFR Calc Estimated GFR (MDRD) Non-Af Amer 108 mL/min >60 [facility] Comment on above: Non- GFR Calc Platelets bldOrdered By: Dr. Hernández on 10-14-2022 Platelets (Bld) [#/Vol] 278 10*3/uL 150-450 [facility] Serum or plasma calcium elis urement (mass/volume)Ordered By: Dr. Hernández on 10-14-2022 Calcium [Mass/Vol] 9.1 mg/dL 8.5-10.1 [facility] Serum or plasma creatinine m easurement (mass/volume)Ordered By: Dr. Hernández on 10-14-2022 Creatinine [Mass/Vol] 0.60 mg/dL 0.55-1.02 [facility] Comment on above: The validity of the calculated GFR & GFRAA in patients over 70 years has not been determined. Clinical correlation is essential. Serum or plasma urea nitroge n measurement (mass/volume)Ordered By: Dr. Hernández on 10-14-2022 Urea nitrogen [Mass/Vol] 5 mg/dL 7-18 [facility] Thin prep Papanicolaou smear with manual screeningOrdered By: Dr. Hernández on 10-14-2022 Thin prep Papanicolaou smear with manual screening 8 5-15 [facility] Basophil percentageOrdered B y: Dr. Wolfe on 10-13-2022 Basophil percentage 0-5 SEEN /hpf 0-5 [facility] Bilirubin Test strip Ql (U)O rdered By: Dr. Wolfe on 10-13-2022 Bilirubin Ql (U) Negative Negative [facility] COVID-19 virus antigen assay Ordered By: Dr. Wolfe on 10-13-2022 SARS-CoV-2 (COVID-19) Ag IA.rapid Ql (Resp) Not detected Not Detect [facility] Comment on above: Normal Reference Ran ge: [...] 10-13-2022 Ketones Ql (U) 15 mg/dl Negative [facility] Mucus LM Ql (Urine sed)Order ed By: Dr. Wolfe on 10-13-2022 Mucus Ql (Urine sed) 0 SEEN /hpf [facility] Nitrite Test strip Ql (U)Ord ered By: Dr. Wolfe on 10-13-2022 Nitrite Ql (U) Negative Negative [facility] Protein Test strip Ql (U)Ord ered By: Dr. Wolfe on 10-13-2022 Protein Ql (U) 15 mg/dl Negative [facility] Squamous epithelial cells de tection in urine sediment by light microscopyOrdered By: Dr. Wolfe on 10-13-2022 Epithelial cells.squamous LM Ql (Urine sed) 0 SEEN /hpf 5-10 [facility] Urine blood detectionOrdered By: Dr. Wolfe on 10-13-2022 RBC Ql (U) Negative Negative [facility] RBC Ql (U) 0 SEEN /hpf 0-5 [facility] Urine clarityOrdered By: Dr. Wolfe on 10-13-2022 Clarity (U) Clear Clear [facility] Urine color determinationOrd ered By: Dr. Wolfe on 10-13-2022 Color (U) Yellow Yellow [facility] Urine glucose detectionOrder ed By: Dr. Wolfe on 10-13-2022 Glucose Ql (U) Normal mg/dl Normal [facility] Urine leukocyte esterase det ection by dipstickOrdered By: Dr. Wolfe on 10-13-2022 Leukocyte esterase Test strip Ql (U) Negative Negative [facility] Urine pHOrdered By: Dr. Narcisa alonso on 10-13-2022 pH (U) 7.0 [pH] 5.0 - 8.0 [facility] Urine sediment bacteria coun t by microscopy (number/high power field)Ordered By: Dr. Wolfe on 10-13-2022 Bacteria LM.HPF (Urine sed) [#/Area] 0 /[HPF] None Seen [facility] Urine specific gravity measu rementOrdered By: Dr. Wolfe on 10-13-2022 Specific gravity (U) [Rel density] 1.010 1.002-1.030 [facility] Urobilinogen Auto test strip Ql (U)Ordered By: Dr. Wolfe on 10-13-2022 Urobilinogen Ql (U) Normal mg/dl Normal [facility] Glucose Glucometer (BldC) [M ass/Vol]Ordered By: Dr. Damian on 10-11-2022 Glucose [Mass/Vol] 141 mg/dL 74-106 [facility] Comment on above: MANAGEMENT OF PATIEN T CARE PER NURSING PROTOCOL Laboratory - Chemistry and C hemistry - challengeOrdered By: Dr. Madrigal on 10-05-2022 Magnesium [Mass/Vol] 1.8 mg/dL 1.6-2.6 [facility] COVID-19 virus antigen assay Ordered By: Dr. Mosley on 09-23-2022 SARS-CoV-2 (COVID-19) Ag IA.rapid Ql (Resp) Not detected Not Detect [facility] Comment on above: Normal Reference Ran ge: Not DetectedMethod:(RT-PCR) real-time reverse transcriptase PCRLuminex CRUZ Instrument*The Food and Drug Administration (FDA) has issued an Emergency Use Authorization (EAU) for the RCUZ SARS-CoV-2 Assay for the rapid detection of [...] 09-23-2022 Influenza Types A,B Direct FA (PIEDAD) [facility] RSV Ag EIAOrdered By: Dr. Jacquie mendosa on 09-23-2022 RSV Ag Immune stain Ql (Tiss) [facility] Absolute lymphocyte countOrd ered By: Dr. Mosley on 09-13-2022 Lymphocytes Auto (Unsp spec) [#/Vol] 2.17 10*3/uL 0.83-4.51 [facility] Basophil percentageOrdered B y: Dr. Mosley on 09-13-2022 Basophils/100 WBC (Bld) 0.8 % 0-1 [facility] Bilirubin [Mass/Vol] 0.60 mg/dL 0.20-1.00 [facility] Comment on above: For patients on eltr ombopag therapy, use of Dimension Mullins TBIL is not recommended. Chloride [Moles/Vol] 103 mmol/L 98-107 [facility] Cholesterol [Mass/Vol] 242 mg/dL <200 [facility] Comment on above: <200 mg/dL Desirable 200-240 mg/dL Borderline >240 mg/dL High Risk Eosinophils/100 WBC (Bld) 1.1 % 0-5 [facility] Glucose [Mass/Vol] 106 mg/dL 74-106 [facility] Comment on above: Fasting Glucose resu lt from 100 to 125 mg/dL suggests IMPAIRED HOMEOSTASIS per A.D.A. criteria. Neutrophils (Bld) [#/Vol] 3.7 10*3/uL 2.0-7.7 [facility] Neutrophils/100 WBC (Bld) 55.0 % 47-70 [facility] Potassium [Moles/Vol] 3.9 mmol/L 3.5-5.1 [facility] Protein [Mass/Vol] 8.1 g/dL 6.4-8.2 [facility] Sodium [Moles/Vol] 139 mmol/L 136-145 [facility] Triglyceride [Mass/Vol] 76 mg/dL <199 [facility] Comment on above: The drugs N-Acetylcy steine and Metamizole may falsely depress this assay.Serum Triglycerides Reference Interval Normal <150 mg/dL Borderline high 150 - 199 mg/dL High 200 - 499 mg/dL Very High > or = 500 mg/dL WBC (Bld) [#/Vol] 6.7 10*3/uL 4.4-11.0 [facility] Blood erythrocytes count (nu mber/volume)Ordered By: Dr. Mosley on 09-13-2022 RBC (Bld) [#/Vol] 4.84 10*6/uL 4.2-5.4 [facility] Blood hemoglobin measurement (mass/volume)Ordered By: Dr. Mosley on 09-13-2022 Hemoglobin (Bld) [Mass/Vol] 14.7 g/dL 12.0-15.0 [facility] Blood lymphocytes/100 leukoc ytesOrdered By: Dr. Mosley on 09-13-2022 Lymphocytes/100 WBC (Bld) 32.6 % 19-41 [facility] Blood monocytes/100 leukocyt esOrdered By: Dr. Mosley on 09-13-2022 Monocytes/100 WBC (Bld) 10.2 % 0-10 [facility] Blood platelet mean volumeOr dered By: Dr. Mosley on 09-13-2022 Platelet mean volume (Bld) [Entitic vol] 10.5 fL 6.2-12.0 [facility] Determination of erythrocyte mean corpuscular volume (MCV)Ordered By: Dr. Mosley on 09-13-2022 MCV (RBC) [Entitic vol] 93.8 fL 81-99 [facility] Hematocrit Auto (Bld) [Volum e fraction]Ordered By: Dr. Mosley on 09-13-2022 Hematocrit (Bld) [Volume fraction] 45.4 % 37-47 [facility] Laboratory - Chemistry and C hemistry - challengeOrdered By: Dr. Mosley on 09-13-2022 ALP [Catalytic activity/Vol] 100 U/L 45-117 [facility] ALT [Catalytic activity/Vol] 28 U/L 13-56 [facility] CO2 [Moles/Vol] 28.0 mmol/L 21.0-32.0 [facility] Globulin (S) [Mass/Vol] 3.8 g/dL 2.2-4.2 [facility] Urea nitrogen/Creatinine [Mass ratio] 17.5 mg/mg 10-20 [facility] Laboratory - Hematology and Cell countsOrdered By: Dr. Mosley on 09-13-2022 Erythrocyte distribution width (RBC) [Entitic vol] 43.8 fL 35.1-43.9 [facility] Erythrocyte distribution width (RBC) [Ratio] 12.6 % 11.6-14.6 [facility] Immature granulocytes/100 WBC (Bld) 0.300 % 0.0-0.9 [facility] Comment on above: IG% - Immature Granu locytes (promyelocytes, myelocytes and metamyelocytes) > 1% indicates that a LEFT SHIFT is Present. MCH (RBC) [Entitic mass] 30.4 pg 27.0-32.0 [facility] Nucleated RBC/100 WBC (Bld) [Ratio] 0 % 0-5 [facility] MCHC Auto (RBC) [Mass/Vol]Or dered By: Dr. Mosley on 09-13-2022 MCHC (RBC) [Mass/Vol] 32.4 g/dL 32-36 [facility] No Panel InformationOrdered By: Dr. Mosley on 09-13-2022 Estimated GFR (MDRD) Amer 87 mL/min >60 [facility] Comment on above: GFR Calc Estimated GFR (MDRD) Non-Af Amer 72 mL/min >60 [facility] Comment on above: Non- GFR Calc Thyroid Stimulating Hormone (TSH) 1.27 uIU/mL 0.358-3.74 [facility] Vitamin D 25-Hydroxy 36.3 ng/mL [facility] Comment on above: Vitamin D 25(OH) Sta tus Range Deficiency <20 ng/mL (50nmol/L) Insufficiency 20 - 30 ng/mL (50 - 75 nmol/L) Sufficiency 30 - 100 ng/mL (75 - 250 nmol/L) Toxicity >100 ng/mL (>250 nmol/L) Platelets bldOrdered By: Dr. Mosley on 09-13-2022 Platelets (Bld) [#/Vol] 344 10*3/uL 150-450 [facility] Serum or plasma albumin elis urement (mass/volume)Ordered By: Dr. Mosley on 09-13-2022 Albumin [Mass/Vol] 4.3 g/dL 3.2-5.0 [facility] Serum or plasma albumin/glob ulin mass ratioOrdered By: Dr. Mosley on 09-13-2022 Albumin/Globulin [Mass ratio] 1.1 {ratio} 0.9-2.4 [facility] Serum or plasma calcium elis urement (mass/volume)Ordered By: Dr. Mosley on 09-13-2022 Calcium [Mass/Vol] 9.6 mg/dL 8.5-10.1 [facility] Serum or plasma cholesterol in HDL measurement (mass/volume)Ordered By: Dr. Mosley on 09-13-2022 Cholesterol in HDL [Mass/Vol] 86 mg/dL >40 [facility] Comment on above: The drugs N-Acetylcy steine and Metamizole may falsely depress this assay. Reference Range HDL <40 mg/dL Low HDL Cholesterol HDL >or= 60 mg/dL High HDL Cholesterol Serum or plasma cholesterol in VLDL measurement (mass/volume)Ordered By: Dr. Mosley on 09-13-2022 Cholesterol in VLDL [Mass/Vol] 15 mg/dL 5-40 [facility] Serum or plasma creatinine m easurement (mass/volume)Ordered By: Dr. Mosley on 09-13-2022 Creatinine [Mass/Vol] 0.86 mg/dL 0.55-1.02 [facility] Comment on above: The validity of the calculated GFR & GFRAA in patients over 70 years has not been determined. Clinical correlation is essential. Serum or plasma low density lipoprotein (LDL) cholesterol measurement (mass/volume)Ordered By: Dr. Mosley on 09-13-2022 Cholesterol in LDL [Mass/Vol] 141 mg/dL 0-130 [facility] Serum or plasma urea nitroge n measurement (mass/volume)Ordered By: Dr. Mosley on 09-13-2022 Urea nitrogen [Mass/Vol] 15 mg/dL 7-18 [facility] Thin prep Papanicolaou smear with manual screeningOrdered By: Dr. Mosley on 09-13-2022 Thin prep Papanicolaou smear with manual screening 17 U/L 15-37 [facility] Thin prep Papanicolaou smear with manual screening 8 5-15 [facility] CNPNon 08-22-2022 CNPN Telephone (PNNA) -------- JUDY REAGAN ([id number]) 1960 F Date Time Provider Department 08/22/22 URIEL BOWER During your visit today, we recorded the following information about you: Marzena Elise RN 08/22/2022 2:35 PM Signed Patient left voicemail 08/22/2022 at 0857 Patient contacted at this time Patient requesting Dr. Bower's office to fax medical records to [employer] Patient's MRI is currently being denied and patient filed an expedited appeal Patient requesting records to be faxed to [phone] Case# [id number] Records faxed at this time per patient's request Allergies As of Date: 08/22/2022 Noted Allergy Reaction ADHESIVE TAPE (ROSINS) 06/06/2016 2 - Rash BEE STING 09/02/2019 7 - Swelling Date Reviewed: 06/06/2022 Reviewed by: Amber Guerra RN - Fully Assessed Reason for Visit: Patient Question [3087] Prescriptions as of 08/22/2022 - traMADol (ULTRAM) 50 mg tablet Take 50 mg by mouth twice daily as needed. Currently not taking while on [place] for pain - amLODIPine (NORVASC) 5 mg [...] Status:Closed by MARZENA ELISE RN on 08/22/22 [facility] No Panel InformationOrdered By: Dr. Damian on 08-12-2022 Nasal Screen MRSA/MSSA [facility] HIV 1 and HIV-2 antibody ass ay with HIV-1 p24 antigen detectionOrdered By: Dr. Damian on 08-11-2022 HIV 1+2 Ab+HIV1 p24 Ag IA Ql Non-Reactive Nonreactive [facility] Laboratory - Chemistry and C hemistry - challengeOrdered By: Dr. Roach on 08-11-2022 Magnesium [Mass/Vol] 2.1 mg/dL 1.6-2.6 [facility] No Panel InformationOrdered By: Dr. Damian on 08-11-2022 Hepatitis A Antibody Total Negative Negative [facility] Comment on above: Performed at: [place] [id number] Director: Bhaskar Mane PhD, Phone: [phone] Hepatitis C Antibody Non-Reactive Nonreactive [facility] Comment on above: Non Reactive: < 0.8 Equivocal: >/= 0.8 to < 1.0 Reactive: >/= 1.0The CDC recommends that a reactive/equivocal HCV antibody result be followed up by the HCV Nucleic Acid Amplificationtest (293989) Serum hepatitis B virus surf magaly antibody IgG detectionOrdered By: Dr. Damian on 08-11-2022 HBV surface IgG Ql (S) Reactive [facility] Comment on above: Non Reactive: Incons istent with immunity less than <10 mIU/mL Reactive: Consistent with immunity greater than or equal to 10 mIU/mL Absolute lymphocyte countOrd ered By: Dr. Mosley on 08-04-2022 Lymphocytes Auto (Unsp spec) [#/Vol] 2.41 10*3/uL 0.83-4.51 [facility] Basophil percentageOrdered B y: Dr. Mosley on 08-04-2022 Basophils/100 WBC (Bld) 0.8 % 0-1 [facility] Bilirubin [Mass/Vol] 0.60 mg/dL 0.20-1.00 [facility] Comment on above: For patients on eltr ombopag therapy, use of Dimension Mullins TBIL is not recommended. Chloride [Moles/Vol] 101 mmol/L 98-107 [facility] Cholesterol [Mass/Vol] 246 mg/dL <200 [facility] Comment on above: <200 mg/dL Desirable 200-240 mg/dL Borderline >240 mg/dL High Risk Eosinophils/100 WBC (Bld) 0.6 % 0-5 [facility] Glucose [Mass/Vol] 80 mg/dL 74-106 [facility] Neutrophils (Bld) [#/Vol] 4.5 10*3/uL 2.0-7.7 [facility] Neutrophils/100 WBC (Bld) 58.2 % 47-70 [facility] Potassium [Moles/Vol] 3.5 mmol/L 3.5-5.1 [facility] Protein [Mass/Vol] 7.8 g/dL 6.4-8.2 [facility] Sodium [Moles/Vol] 136 mmol/L 136-145 [facility] Triglyceride [Mass/Vol] 143 mg/dL <199 [facility] Comment on above: The drugs N-Acetylcy steine and Metamizole may falsely depress this assay.Serum Triglycerides Reference Interval Normal <150 mg/dL Borderline high 150 - 199 mg/dL High 200 - 499 mg/dL Very High > or = 500 mg/dL WBC (Bld) [#/Vol] 7.8 10*3/uL 4.4-11.0 [facility] Blood erythrocytes count (nu mber/volume)Ordered By: Dr. Mosley on 08-04-2022 RBC (Bld) [#/Vol] 4.36 10*6/uL 4.2-5.4 [facility] Blood hemoglobin measurement (mass/volume)Ordered By: Dr. Mosley on 08-04-2022 Hemoglobin (Bld) [Mass/Vol] 13.7 g/dL 12.0-15.0 [facility] Blood lymphocytes/100 leukoc ytesOrdered By: Dr. Mosley on 08-04-2022 Lymphocytes/100 WBC (Bld) 30.9 % 19-41 [facility] Blood monocytes/100 leukocyt esOrdered By: Dr. Mosley on 08-04-2022 Monocytes/100 WBC (Bld) 9.1 % 0-10 [facility] Blood platelet mean volumeOr dered By: Dr. Mosley on 08-04-2022 Platelet mean volume (Bld) [Entitic vol] 10.3 fL 6.2-12.0 [facility] Determination of erythrocyte mean corpuscular volume (MCV)Ordered By: Dr. Mosley on 08-04-2022 MCV (RBC) [Entitic vol] 92.9 fL 81-99 [facility] Hematocrit Auto (Bld) [Volum e fraction]Ordered By: Dr. Mosley on 08-04-2022 Hematocrit (Bld) [Volume fraction] 40.5 % 37-47 [facility] INR in Blood by Coagulation assayOrdered By: Dr. Mosley on 08-04-2022 INR Coag (Bld) [Relative time] 1.0 {INR} [facility] Laboratory - Chemistry and C hemistry - challengeOrdered By: Dr. Mosley on 08-04-2022 ALP [Catalytic activity/Vol] 98 U/L 45-117 [facility] ALT [Catalytic activity/Vol] 34 U/L 13-56 [facility] CO2 [Moles/Vol] 31.0 mmol/L 21.0-32.0 [facility] Globulin (S) [Mass/Vol] 3.7 g/dL 2.2-4.2 [facility] Urea nitrogen/Creatinine [Mass ratio] 15.2 mg/mg 10-20 [facility] Laboratory - CoagulationOrde red By: Dr. Mosley on 01-12-2023 PT Coag (PPP) [Time] 13.2 s 11.7-14.9 [facility] Laboratory - Hematology and Cell countsOrdered By: Dr. Mosley on 08-04-2022 Erythrocyte distribution width (RBC) [Entitic vol] 43.2 fL 35.1-43.9 [facility] Erythrocyte distribution width (RBC) [Ratio] 12.6 % 11.6-14.6 [facility] Immature granulocytes/100 WBC (Bld) 0.400 % 0.0-0.9 [facility] Comment on above: IG% - Immature Granu locytes (promyelocytes, myelocytes and metamyelocytes) > 1% indicates that a LEFT SHIFT is Present. MCH (RBC) [Entitic mass] 31.4 pg 27.0-32.0 [facility] Nucleated RBC/100 WBC (Bld) [Ratio] 0 % 0-5 [facility] MCHC Auto (RBC) [Mass/Vol]Or dered By: Dr. Mosley on 08-04-2022 MCHC (RBC) [Mass/Vol] 33.8 g/dL 32-36 [facility] No Panel InformationOrdered By: Dr. Mosley on 08-04-2022 Estimated GFR (MDRD) Amer 106 mL/min >60 [facility] Comment on above: GFR Calc Estimated GFR (MDRD) Non-Af Amer 87 mL/min >60 [facility] Comment on above: Non- GFR Calc Thyroid Stimulating Hormone (TSH) 0.91 uIU/mL 0.358-3.74 [facility] Platelets bldOrdered By: Dr. Mosley on 08-04-2022 Platelets (Bld) [#/Vol] 337 10*3/uL 150-450 [facility] Serum or plasma albumin elis urement (mass/volume)Ordered By: Dr. Mosley on 08-04-2022 Albumin [Mass/Vol] 4.1 g/dL 3.2-5.0 [facility] Serum or plasma albumin/glob ulin mass ratioOrdered By: Dr. Mosley on 08-04-2022 Albumin/Globulin [Mass ratio] 1.1 {ratio} 0.9-2.4 [facility] Serum or plasma calcium elis urement (mass/volume)Ordered By: Dr. Mosley on 08-04-2022 Calcium [Mass/Vol] 9.3 mg/dL 8.5-10.1 [facility] Serum or plasma cholesterol in HDL measurement (mass/volume)Ordered By: Dr. Mosley on 08-04-2022 Cholesterol in HDL [Mass/Vol] 82 mg/dL >40 [facility] Comment on above: The drugs N-Acetylcy steine and Metamizole may falsely depress this assay. Reference Range HDL <40 mg/dL Low HDL Cholesterol HDL >or= 60 mg/dL High HDL Cholesterol Serum or plasma cholesterol in VLDL measurement (mass/volume)Ordered By: Dr. Mosley on 08-04-2022 Cholesterol in VLDL [Mass/Vol] 29 mg/dL 5-40 [facility] Serum or plasma creatinine m easurement (mass/volume)Ordered By: Dr. Mosley on 08-04-2022 Creatinine [Mass/Vol] 0.72 mg/dL 0.55-1.02 [facility] Comment on above: The validity of the calculated GFR & GFRAA in patients over 70 years has not been determined. Clinical correlation is essential. Serum or plasma low density lipoprotein (LDL) cholesterol measurement (mass/volume)Ordered By: Dr. Mosley on 08-04-2022 Cholesterol in LDL [Mass/Vol] 135 mg/dL 0-130 [facility] Serum or plasma urea nitroge n measurement (mass/volume)Ordered By: Dr. Mosley on 08-04-2022 Urea nitrogen [Mass/Vol] 11 mg/dL 7-18 [facility] Thin prep Papanicolaou smear with manual screeningOrdered By: Dr. Mosley on 08-04-2022 Thin prep Papanicolaou smear with manual screening 22 U/L 15-37 [facility] Thin prep Papanicolaou smear with manual screening 4 5-15 [facility] ANES POSTPROC EVALon 022 ANES POSTPROC EVAL HNO ID: [id number] Author: Kris Najera MD Service: Anesthesiology Author Type: Anesthesiologist Type: Anesthesia Postprocedure Evaluation Filed: 06/06/2022 10:30 AM Note Text: POST ANESTHESIA EVALUATION NOTE : 1960 Procedure Summary Date: 06/06/22 Room / Location: [facility] / OR OR Anesthesia Start: 737 Anesthesia Stop: 815 [...] June 06, 2022 TIME: 10:29 AM CSN: [id number] [facility] ANES PRE-OPon 06-06-2022 ANES PRE-OP HNO ID: [id number] Author: Kris Najera MD Service: Anesthesiology Author Type: Anesthesiologist Type: Anesthesia Preprocedure Evaluation Filed: 06/06/2022 6:59 AM Note Text: ANESTHESIOLOGY DAY OF SURGERY NOTE : 1960 Procedure Information Date/Time: 06/06/22729 Procedure: INJECT ANKLE (Right: Foot) Location: [place] [address] / OR OR Surgeons: Yumiko Welsh Estimated body mass [...] as needed. Currently not taking while on [place] for pain - amLODIPine (NORVASC) 5 mg [...] June 06, 2022 TIME: 6:58 AM CSN: [id number] [facility] HISTORY PHYSICALon HISTORY PHYSICAL HNO ID: [id number] Author: Yumiko Welsh Service: ? Author Type: [...] DATE: June 06, 2022 TIME: 7:02 AM [facility] NURSING PROGon 06-06-2022 NURSING PROG HNO ID: [id number] Author: Hattie [place] RN Service: Nursing Author Type: Registered Nurse Type: Nursing Progress Note Filed: 06/06/2022 8:51 AM Note Text: Other: spoke with via telephone, pt to continue all her meds at their normal times and doses on D/C Normal [facility] OPERATIVE NOon 06-06-2022 OPERATIVE NO HNO ID: [id number] Author: Yumiko Welsh Service: ? Author Type: Physician Type: Operative Report Filed: 06/06/2022 10:51 AM Note Text: OPERATIVE/PROCEDURE REPORT LOG ID: [id number] SURGERY/PROCEDURE DATE: 06/06/2022 INCISION/PROCEDURE START TIME: 7:58 AM INCISION CLOSE/PROCEDURE END TIME: 8:07 AM SURGEON(S)/PROCEDURALIST (S) AND INTERIOR DESIGN FACULTY MEMBER(S): Surgeon(s) and Role: * Yumiko Welsh - [...] DATE: June 06, 2022 TIME: 10:42 AM [facility] XR FLUOROSCOPYon 06-06-2022 XR FLUOROSCOPY * * [...] Area Product (DAP): Fluoro time: 0:34 min:sec General Cleaner: REBECCA Transcribe Date/Time: Jun 06 2022 9:06A Dictated by : Vandana ESTRADA MD This examination was interpreted and the report reviewed and electronically signed by: Vandana ESTRADA MD on Jun 06 2022 9:09AM EST [id number] [facility] HISTORY PHYSICALon HISTORY PHYSICAL HNO ID: [id number] Author: Susana Leyva APRN.ELECTRIC HOIST OPERATOR Service: ? Author Type: Nurse Practitioner [...] fevers. Neurological: No history of TIA's, stroke, CAPSULE MACHINE OPERATOR tumor, impaired sensorium, hemiplegia, paraplegia or [...] > 1 time per night or hematuria. 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 Skin: +psoriasis, on rx PAST MEDICAL HISTORY [...] Breast C (more content not included)... Normal [facility] [place] 05-19-2022 FLON Telephone (PODIWS) -------- JUDY REAGAN ([id number]) 1960 F Date Time Provider Department 05/19/22 YUMIKO WELSH During your visit today, we recorded the following information about you: Rosa Greenberg RN 05/19/2022 11:16 AM Signed Left patient Vm to contact office and give surgical date. Patient scheduled for XR guided injection of R 1st MTPJ on 06/06/22 at [facility]. Patient will need a month follow up post injection scheduled when she returns call. Mavis Russell LPN 05/19/2022 11:22 AM Signed Patient called. Verified name and date of . Transferred to nurseKitty, in podiatry. Mavis Greenberg RN 05/19/2022 11:31 AM Signed Patient notified of surgical date. Follow up scheduled. Surgical confirmation letter sent to patient via [employer] message. Allergies As of Date: 05/19/2022 Noted Allergy Reaction ADHESIVE TAPE (ROSINS) 06/06/2016 2 - Rash BEE STING 09/02/2019 7 - Swelling Date Reviewed: 05/18/2022 Reviewed by: Rosa Greenberg RN - Fully Assessed Reason for Visit: Schedule Surgery [1330] Primary Visit Diagnosis:Acquired hallux limitus of right foot [M20.5X1] Order(s):SURGICAL REQUEST - ELECTIVE (02/2020) [[id number]] Order #: [id number]: 1 Prescriptions as of 05/19/2022 - methylPREDNISolone (MEDROL, AMIRA,) 4 mg Dose-Pack Take 1 tablet by mouth as directed. As directed on package - traMADol (ULTRAM) 50 mg tablet Take 50 mg by mouth twice daily as needed. Currently not taking while on [place] for pain - amLODIPine (NORVASC) 5 mg [...] Status:Closed by ROSA GREENBERG RN on 05/19/22 [facility] CNOVon 05-18-2022 CNOV Office Visit (PODIWS ) -------- BRIENJUDY ([id number]) 1960 F Date Time Provider Department 05/18/22 [...] as needed. Currently not taking while on [place] for pain amLODIPine (NORVASC) 5 mg tablet [...] black stoo (more content not included)... Normal [facility] XR FOOT 3V AP/LAT/OBL RTon 1 XR [...] ENTHESOPHYTES. MILD DEGENERATIVE CHANGES. NO ACUTE FRACTURE General Cleaner: [facility] Transcribe Date/Time: May 20 2022 3:03P Dictated by : IVORY SARMIENTO MD This examination was interpreted and the report reviewed and electronically signed by: IVORY SARMIENTO MD on May 20 2022 3:06PM EST [id number] Normal [facility] XR FOOT GENERAL 3V AP/LAT/OB L RIGHTon 05-18-2022 [facility] CNPN Telephone (PODIWS) -------- BRIENJUDY Chirinos ([id number]) 1960 F Date Time Provider Department 05/04/22 YUMIKO EWLSH During your visit today, we recorded the following information about you: Racquel Barkley LPN 05/04/2022 9:37 AM Signed Patient called asking if could have another Right big toe injection, d/t swelling and pain. Please call patient back. Thank you. Judy#[phone] Zonia Bernardo LPN 05/04/2022 2:11 PM Signed Called patient and scheduled her an appointment on 05/18/2022 at 4 pm to discuss receiving another injection. Zonia Bernardo LPN Allergies As of Date: 05/04/2022 Noted Allergy Reaction ADHESIVE TAPE (ROSINS) 06/06/2016 2 - Rash BEE STING 09/02/2019 7 - Swelling Date Reviewed: 05/02/2022 Reviewed by: Jesus Alberto Harris APRN.ELECTRIC HOIST OPERATOR - Fully Assessed Reason for Visit: Patient Question [4166] Cmt: Right Big toe Prescriptions as of 05/19/2022 - methylPREDNISolone (MEDROL, AMIRA,) 4 mg Dose-Pack Take 1 tablet by mouth as directed. As directed on package - traMADol (ULTRAM) 50 mg tablet Take 50 mg by mouth twice daily as needed. Currently not taking while on [place] for pain - amLODIPine (NORVASC) 5 mg [...] Status:Closed by ROSA GREENBERG RN on 05/19/22 [facility] Luyc 05-02-2022 CNOV Office Visit (ORMDNA ) -------- JUDY REAGAN ([id number]) 1960 F Date Time Provider Department 05/02/22 [...] which included preparing to see the patient, [id number] patient care, completing clinical documentation, obtaining and/or reviewing separately obtained history, performing a medically appropriate examination, counseling and educating the patient/family/caregiver , ordering medications, tests, or procedures, communicating with other HCPs (not separately reported), independently interpreting results (not separately reported), communicating results to the patient/family/caregiver , and care coordination (not separately reported). Jesus Alberto Harris APRN.[facility] Orthopaedic Surgery Referring Provider: CHRISTIAN DUNNE [[id number]] Allergies As of Date: 05/02/2022 Noted Allergy Reaction ADHESIVE TAPE (ROSINS) 06/06/2016 2 - Rash BEE STING 09/02/2019 7 - Swelling Date Reviewed: 05/02/2022 Reviewed by: Jesus Alberto Harris APRN.[facility] - Fully Assessed Reason for Visit: New [359371] Cmt: L Partial Knee 2013 Knee Pain [132] Cmt: L Partial Knee 2013 New [272170] Cmt: R TKA 2010 Knee Pain [132] Cmt: R TKA 2010 Primary Visit Diagnosis: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, initial encounter ([facility]) [T84.84XA, Z96.651] Other Visit Diagnosis:Pain due to total left knee replacement, initial encounter ([facility]) [T84.84XA, Z96.652] Order(s):CONSULT TO PHYSICAL THERAPY [9032] Order #: [id number]: 1 FUTURE HINGED KNEE BRACE [[id number]] Order #: [id number] methylPREDNISolone (MEDROL, AMIRA,) 4 mg Dose-PackTake 1 tablet by mouth as directed. As directed on packageDisp: 21 tabletRfl: 0 Prescriptions as of 05/02/2022 - methylPREDNISolone (MEDROL, AMIRA,) 4 mg Dose-Pack Take 1 tablet by mouth as directed. As directed on package - traMADol (ULTRAM) 50 mg tablet Take 50 mg by mouth twice daily as needed. Currently not taking while on [place] for pain - amLODIPine (NORVASC) 5 mg tablet Take 5 mg by mouth once daily. - methotrexate 2.5 mg tablet (more content not included)... Normal [facility] XR KNEE 3V AP/LAT/MELIDA BILon 05-02-2022 XR [...] as discussed under Results portion of report. General Cleaner: REBECCA Transcribe Date/Time: May 02 2022 9:42A Dictated by : HARIKA LYONS DO This examination was interpreted and the report reviewed and electronically signed by: HARIKA LYONS DO on May 02 2022 9:46AM EST [id number] [facility] XR KNEE POST OP 3V AP/LAT/ME RCHANT BILATERALon 05-02-2022 [facility] CNPNon 04-27-2022 CNPN Telephone (YENMDNA) -------- JUDY REAGAN ([id number]) 1960 F Date Time Provider Department 04/27/22 JESUS ALBERTO HARRIS During your visit today, we recorded the following information about you: Kitty Bansal 04/27/2022 10:16 AM Signed Provider out on 05/05/22, left VM AND sent [employer] message. Ok to r/s to 05/03/22. Please [...] as needed. Currently not taking while on [place] for pain - amLODIPine (NORVASC) 5 mg [...] Encounter Status:[facility] by KITTY B[facility]AL [facility] (TRAVIS[facility] -------- JUDY REAGAN ([id number]) 1960 F Date Time Provider Department 04/25/22 [...] has had a partial replacement done at [facility] several years ago. She is [...] Fully Assessed Reason for Visit: Patient Question [2177] Prescriptions as of 04/25/2022 - traMADol (ULTRAM) 50 mg tablet Take 50 mg by mouth twice daily as needed. Currently not taking while on [place] for pain - amLODIPine (NORVASC) 5 mg [...] by PADMINI KRUEGER MA on 04/25/22 Normal [facility] Basophil percentageon 2021 Chloride [Moles/Vol] 97 mmol/L 98-107 [facility] Work Phone: Glucose [Mass/Vol] 104 mg/dL 74-106 [facility] Work Phone: Comment on above: Fasting Glucose resu lt from 100 to 125 mg/dL suggests IMPAIRED HOMEOSTASIS per A.D.A. criteria. Potassium [Moles/Vol] 4.3 mmol/L 3.5-5.1 [facility] Work Phone: Sodium [Moles/Vol] 135 mmol/L 136-145 [facility] Work Phone: Laboratory - Chemistry and C hemistry - challengeon 12-22-2021 CO2 [Moles/Vol] 32.0 mmol/L 21.0-32.0 [facility] Work Phone: Urea nitrogen/Creatinine [Mass ratio] 20.5 mg/mg 10-20 [facility] Work Phone: No Panel Informationon 12-22 Estimated Creatinine Clearance Calc 67.06 ml/min [facility] Work Phone: Estimated GFR (MDRD) Amer 97 mL/min >60 [facility] Work Phone: Comment on above: GFR Calc Estimated GFR (MDRD) Non-Af Amer 80 mL/min >60 [facility] Work Phone: Comment on above: Non- GFR Calc Serum or plasma calcium elis urement (mass/volume)on 12-22-2021 Calcium [Mass/Vol] 9.7 mg/dL 8.5-10.1 [facility] Work Phone: Serum or plasma creatinine m easurement (mass/volume)on 12-22-2021 Creatinine [Mass/Vol] 0.78 mg/dL 0.55-1.02 [facility] Work Phone: Comment on above: The validity of the calculated GFR & GFRAA in patients over 70 years has not been determined. Clinical correlation is essential. Serum or plasma urea nitroge n measurement (mass/volume)on 12-22-2021 Urea nitrogen [Mass/Vol] 16 mg/dL 7-18 [facility] Work Phone: [phone] Thin prep Papanicolaou smear with manual screeningon 12-22-2021 Thin prep Papanicolaou smear with manual screening 6 5-15 [facility] Work Phone: [phone] Absolute lymphocyte counton 10-18-2021 Lymphocytes Auto (Unsp spec) [#/Vol] 1.62 10*3/uL 0.83-4.51 [facility] Work Phone: [phone] Basophil percentageon 2021 Basophils/100 WBC (Bld) 0.8 % 0-1 [facility] Work Phone: [phone] Bilirubin [Mass/Vol] 0.40 mg/dL 0.20-1.00 [facility] Work Phone: [phone] Comment on above: For patients on eltr ombopag therapy, use of Dimension Mullins TBIL is not recommended. Chloride [Moles/Vol] 102 mmol/L 98-107 [facility] Work Phone: [phone] Eosinophils/100 WBC (Bld) 1.5 % 0-5 [facility] Work Phone: [phone] Glucose [Mass/Vol] 112 mg/dL 74-106 [facility] Work Phone: [phone] Comment on above: Fasting Glucose resu lt from 100 to 125 mg/dL suggests IMPAIRED HOMEOSTASIS per A.D.A. criteria. Neutrophils (Bld) [#/Vol] 3.9 10*3/uL 2.0-7.7 [facility] Work Phone: [phone] Neutrophils/100 WBC (Bld) 63.2 % 47-70 [facility] Work Phone: [phone] Potassium [Moles/Vol] 3.8 mmol/L 3.5-5.1 [facility] Work Phone: [phone] Protein [Mass/Vol] 8.3 g/dL 6.4-8.2 [facility] Work Phone: [phone] Sodium [Moles/Vol] 135 mmol/L 136-145 [facility] Work Phone: WBC (Bld) [#/Vol] 6.1 10*3/uL 4.4-11.0 [facility] Work Phone: Blood erythrocytes count (nu mber/volume)on 10-18-2021 RBC (Bld) [#/Vol] 4.58 10*6/uL 4.2-5.4 [facility] Work Phone: Blood hemoglobin measurement (mass/volume)on 10-18-2021 Hemoglobin (Bld) [Mass/Vol] 14.0 g/dL 12.0-15.0 [facility] Work Phone: Blood lymphocytes/100 leukoc yteson 10-18-2021 Lymphocytes/100 WBC (Bld) 26.5 % 19-41 [facility] Work Phone: Blood monocytes/100 leukocyt eson 10-18-2021 Monocytes/100 WBC (Bld) 7.5 % 0-10 [facility] Work Phone: Blood platelet mean volumeon 10-18-2021 Platelet mean volume (Bld) [Entitic vol] 10.6 fL 6.2-12.0 [facility] Work Phone: [phone] Determination of erythrocyte mean corpuscular volume (MCV)on 10-18-2021 MCV (RBC) [Entitic vol] 93.9 fL 81-99 [facility] Work Phone: Hematocrit Auto (Bld) [Volum e fraction]on 10-18-2021 Hematocrit (Bld) [Volume fraction] 43.0 % 37-47 [facility] Work Phone: [phone] Laboratory - Chemistry and C hemistry - challengeon 10-18-2021 ALP [Catalytic activity/Vol] 106 U/L 45-117 [facility] Work Phone: ALT [Catalytic activity/Vol] 44 U/L 13-56 [facility] Work Phone: CO2 [Moles/Vol] 26.0 mmol/L 21.0-32.0 [facility] Work Phone: Globulin (S) [Mass/Vol] 4.5 g/dL 2.2-4.2 [facility] Work Phone: Urea nitrogen/Creatinine [Mass ratio] 19.6 mg/mg 10-20 [facility] Work Phone: Laboratory - Hematology and Cell countson 10-18-2021 Erythrocyte distribution width (RBC) [Entitic vol] 45.6 fL 35.1-43.9 [facility] Work Phone: Erythrocyte distribution width (RBC) [Ratio] 13.3 % 11.6-14.6 [facility] Work Phone: Immature granulocytes/100 WBC (Bld) 0.500 % 0.0-0.9 [facility] Work Phone: Comment on above: IG% - Immature Granu locytes (promyelocytes, myelocytes and metamyelocytes) > 1% indicates that a LEFT SHIFT is Present. MCH (RBC) [Entitic mass] 30.6 pg 27.0-32.0 [facility] Work Phone: Nucleated RBC/100 WBC (Bld) [Ratio] 0 % 0-5 [facility] Work Phone: MCHC Auto (RBC) [Mass/Vol]on 10-18-2021 MCHC (RBC) [Mass/Vol] 32.6 g/dL 32-36 [facility] Work Phone: No Panel Informationon 10-18 Estimated GFR (MDRD) Amer 99 mL/min >60 [facility] Work Phone: Comment on above: GFR Calc Estimated GFR (MDRD) Non-Af Amer 82 mL/min >60 [facility] Work Phone: Comment on above: Non- GFR Calc Platelets bldon 10-18-2021 Platelets (Bld) [#/Vol] 286 10*3/uL 150-450 [facility] Work Phone: Serum or plasma albumin elis urement (mass/volume)on 10-18-2021 Albumin [Mass/Vol] 3.8 g/dL 3.2-5.0 [facility] Work Phone: Serum or plasma albumin/glob ulin mass ratioon 10-18-2021 Albumin/Globulin [Mass ratio] 0.8 {ratio} 0.9-2.4 [facility] Work Phone: Serum or plasma calcium elis urement (mass/volume)on 10-18-2021 Calcium [Mass/Vol] 9.6 mg/dL 8.5-10.1 [facility] Work Phone: Serum or plasma creatinine m easurement (mass/volume)on 10-18-2021 Creatinine [Mass/Vol] 0.76 mg/dL 0.55-1.02 [facility] Work Phone: Comment on above: The validity of the calculated GFR & GFRAA in patients over 70 years has not been determined. Clinical correlation is essential. Serum or plasma urea nitroge n measurement (mass/volume)on 10-18-2021 Urea nitrogen [Mass/Vol] 15 mg/dL 7-18 [facility] Work Phone: Thin prep Papanicolaou smear with manual screeningon 10-18-2021 Thin prep Papanicolaou smear with manual screening 35 U/L 15-37 [facility] Work Phone: Thin prep Papanicolaou smear with manual screening 7 5-15 [facility] Work Phone: CNCNick 10-05-2021 CNCO Letter Text Normal [facility] CNPCristine 10-05-2021 YAMILKA Telephone (DIAMONDUHJOE ) -------- JUDY REAGAN ([id number]) 1960 F Date Time Provider Department 10/05/21 [...] as needed. Currently not taking while on [place] for pain - amLODIPine (NORVASC) 5 mg [...] Encounter Status:Closed by VANE DAVIDSON on 10/05/21 [facility] [place] 10-01-2021 YAMILKA Telephone (Time Bomb Deals) -------- JUDY REAGAN ([id number]) 1960 F Date Time Provider Department 10/01/21 SAURAV MORTENSEN During your visit today, we recorded the following information about you: Saurav Mortensen MD 10/01/2021 7:54 AM Signed First visit 10/01/[address] Ho Rheum [address] 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 Currently not taking while on [place] for pain - amLODIPine (NORVASC) 5 mg [...] Encounter Status:Closed by SAURAV MORTENSEN on 10/04/21 [facility] Absolute lymphocyte counton 09-10-2021 Lymphocytes Auto (Unsp spec) [#/Vol] 1.60 10*3/uL 0.83-4.51 [facility] Work Phone: Basophil percentageon 2021 Basophils/100 WBC (Bld) 0.7 % 0-1 [facility] Work Phone: Bilirubin [Mass/Vol] 0.60 mg/dL 0.20-1.00 [facility] Work Phone: Comment on above: For patients on eltr ombopag therapy, use of Dimension Mullins TBIL is not recommended. Chloride [Moles/Vol] 102 mmol/L 98-107 [facility] Work Phone: [phone] Eosinophils/100 WBC (Bld) 1.0 % 0-5 [facility] Work Phone: Glucose [Mass/Vol] 97 mg/dL 74-106 [facility] Work Phone: Neutrophils (Bld) [#/Vol] 4.9 10*3/uL 2.0-7.7 [facility] Work Phone: Neutrophils/100 WBC (Bld) 70.0 % 47-70 [facility] Work Phone: Potassium [Moles/Vol] 3.6 mmol/L 3.5-5.1 [facility] Work Phone: Protein [Mass/Vol] 7.9 g/dL 6.4-8.2 [facility] Work Phone: Sodium [Moles/Vol] 137 mmol/L 136-145 [facility] Work Phone: WBC (Bld) [#/Vol] 6.9 10*3/uL 4.4-11.0 [facility] Work Phone: Blood erythrocytes count (nu mber/volume)on 09-10-2021 RBC (Bld) [#/Vol] 4.39 10*6/uL 4.2-5.4 [facility] Work Phone: Blood hemoglobin measurement (mass/volume)on 09-10-2021 Hemoglobin (Bld) [Mass/Vol] 13.7 g/dL 12.0-15.0 [facility] Work Phone: Blood lymphocytes/100 leukoc yteson 09-10-2021 Lymphocytes/100 WBC (Bld) 23.1 % 19-41 [facility] Work Phone: Blood monocytes/100 leukocyt eson 09-10-2021 Monocytes/100 WBC (Bld) 4.9 % 0-10 [facility] Work Phone: Blood platelet mean volumeon 09-10-2021 Platelet mean volume (Bld) [Entitic vol] 9.8 fL 6.2-12.0 [facility] Work Phone: [phone] Determination of erythrocyte mean corpuscular volume (MCV)on 09-10-2021 MCV (RBC) [Entitic vol] 93.6 fL 81-99 [facility] Work Phone: [phone] Hematocrit Auto (Bld) [Volum e fraction]on 09-10-2021 Hematocrit (Bld) [Volume fraction] 41.1 % 37-47 [facility] Work Phone: [phone] Laboratory - Chemistry and C hemistry - challengeon 09-10-2021 ALP [Catalytic activity/Vol] 103 U/L 45-117 [facility] Work Phone: [phone] ALT [Catalytic activity/Vol] 48 U/L 13-56 [facility] Work Phone: CO2 [Moles/Vol] 28.0 mmol/L 21.0-32.0 [facility] Work Phone: [phone] Globulin (S) [Mass/Vol] 4.0 g/dL 2.2-4.2 [facility] Work Phone: [phone] Urea nitrogen/Creatinine [Mass ratio] 18.9 mg/mg 10-20 [facility] Work Phone: [phone] Laboratory - Hematology and Cell countson 09-10-2021 Erythrocyte distribution width (RBC) [Entitic vol] 44.5 fL 35.1-43.9 [facility] Work Phone: [phone] Erythrocyte distribution width (RBC) [Ratio] 12.9 % 11.6-14.6 [facility] Work Phone: [phone] Immature granulocytes/100 WBC (Bld) 0.300 % 0.0-0.9 [facility] Work Phone: [phone] Comment on above: IG% - Immature Granu locytes (promyelocytes, myelocytes and metamyelocytes) > 1% indicates that a LEFT SHIFT is Present. MCH (RBC) [Entitic mass] 31.2 pg 27.0-32.0 [facility] Work Phone: [phone] Nucleated RBC/100 WBC (Bld) [Ratio] 0 % 0-5 [facility] Work Phone: [phone] MCHC Auto (RBC) [Mass/Vol]on 09-10-2021 MCHC (RBC) [Mass/Vol] 33.3 g/dL 32-36 [facility] Work Phone: No Panel Informationon 09-10 Estimated GFR (MDRD) Amer 103 mL/min >60 [facility] Work Phone: Comment on above: GFR Calc Estimated GFR (MDRD) Non-Af Amer 85 mL/min >60 [facility] Work Phone: Comment on above: Non- GFR Calc Hepatitis C Antibody Non-Reactive Nonreactive [facility] Work Phone: Comment on above: Non Reactive: < 0.8 Equivocal: >/= 0.8 to < 1.0 Reactive: >/= 1.0The [facility] recommends that a reactive/equivocal HCV antibody result be followed up by the HCV Nucleic Acid Amplificationtest (355120) Thyroid Stimulating Hormone (TSH) 0.83 uIU/mL 0.358-3.74 [facility] Work Phone: Vitamin D 25-Hydroxy 59.8 ng/mL [facility] Work Phone: Comment on above: Vitamin D 25(OH) Sta tus Range Deficiency <20 ng/mL (50nmol/L) Insufficiency 20 - 30 ng/mL (50 - 75 nmol/L) Sufficiency 30 - 100 ng/mL (75 - 250 nmol/L) Toxicity >100 ng/mL (>250 nmol/L) Platelets bldon 09-10-2021 Platelets (Bld) [#/Vol] 370 10*3/uL 150-450 [facility] Work Phone: Serum or plasma albumin elis urement (mass/volume)on 09-10-2021 Albumin [Mass/Vol] 3.9 g/dL 3.2-5.0 [facility] Work Phone: Serum or plasma albumin/glob ulin mass ratioon 09-10-2021 Albumin/Globulin [Mass ratio] 1.0 {ratio} 0.9-2.4 [facility] Work Phone: Serum or plasma calcium elis urement (mass/volume)on 02-18-2022 Calcium [Mass/Vol] 9.1 mg/dL 8.5-10.1 [facility] Work Phone: Serum or plasma creatinine m easurement (mass/volume)on 09-10-2021 Creatinine [Mass/Vol] 0.74 mg/dL 0.55-1.02 [facility] Work Phone: Comment on above: The validity of the calculated GFR & GFRAA in patients over 70 years has not been determined. Clinical correlation is essential. Serum or plasma urea nitroge n measurement (mass/volume)on 09-10-2021 Urea nitrogen [Mass/Vol] 14 mg/dL - [facility] Work Phone: Thin prep Papanicolaou smear with manual screeningon 09-10-2021 Thin prep Papanicolaou smear with manual screening 35 U/L 15-37 [facility] Work Phone: Thin prep Papanicolaou smear with manual screening 7 5-15 [facility] Work Phone: CNOVon 08-31-2021 CNOV Office Visit (PODIWS ) -------- JUDY REAGAN ([id number]) 1960 F Date Time Provider Department 08/31/21 [...] as needed. Currently not taking while on [place] for pain - amLODIPine (NORVASC) 5 mg [...] to be (more content not included)... Normal [facility] HIV 1/2on 07-11-2019 HIV 1/O/2 QUAL NONREACTIVE Normal NONREACTIVE [facility] Comment on above: Result Comment: NONR EACTIVE: LESS THAN 1.0 INDEX VALUE THIS ASSAY DETECTS HIV p24 ANTIGEN AND ANTIBODIES TO HIV-1 AND HIV-2 BY THE [facility] CHIV ASSAY. Performed By: #### L [id number], L500.35611, L500.04674, L550.94602, L700.58541 #### [facility] [address] [place] [id number] VITAMIN D2+D3on 07-08-2019 25 [place], VIT D 26 ng/mL Low () [facility] Comment on above: Result Comment: Refe rence Range: All Ages: Target levels 30 - 100 Performed By: #### L 500.96601, L500.72923, L500.39730, L550.20412, L700.71949 #### [facility] [address] [place], [place] [id number] 25 [place], VIT D-2 11 ng/mL Normal () [facility] Comment on above: Performed By: #### L 500.03269, L500.24715, L500.82045, L550.35260, L700.59701 #### [facility] [address] [place] [address] 25 [place], VIT D-3 15 ng/mL Normal () [facility] Comment on above: Result Comment: Perf ormed At: [employer] [address] [place] [address] [id number] Francois Alvarado MD [phone] Performed By: #### L 500.90609, L500.23622, L500.40195, L550.68271, L700.85717 #### [facility] [address] [place], [place] [id number] CCP-ABSon 07-06-2019 CCP-ABS 8 units Normal 0-19 [facility] Comment on above: Result Comment: Nega tive <20 Weak positive 20 - 39 Moderate positive 40 - 59 Strong positive >59 Performed At: [address] [id number] Morris Mendoza MD [id number] Performed By: #### L 500.83068, L500.08409, L500.15521, L550.95677, L700.94427 #### [facility] [address] [place] [address] CBC W/DIFFon 07-04-2019 BASO ABS 0.10 K/CU MM Normal 0-0.2 [facility] Comment on above: Performed By: #### L 200.41638, L200.88735 #### [facility] [address] [place] [address] Basophils/100 WBC (Bld) 0.9 % Normal 0-2 [facility] Comment on above: Performed By: #### L 200.52217, L200.64656 #### [facility] [address] [place] [address] EOS ABS 0.10 K/CU MM Normal 0-0.5 [facility] Comment on above: Performed By: #### L 200.22634, L200.57232 #### [facility] [address] [place] [address] Eosinophils/100 WBC (Bld) 0.9 % Normal 0-5 [facility] Comment on above: Performed By: #### L 200.91187, L200.67768 #### [facility] [address] [place] [address] Erythrocyte distribution width (RBC) [Ratio] 12.8 % Normal 11-14.5 [facility] Comment on above: Performed By: #### L 200.55127, L200.68343 #### [facility] [address] [place] [address] Hematocrit (Bld) [Volume fraction] 41.9 % Normal 35.0-47.0 [facility] Comment on above: Performed By: #### L 200.28732, L200.31940 #### [facility] [address] [place] [address] Hemoglobin (Bld) [Mass/Vol] 14.3 g/dL Normal 11.5-15.5 [facility] Comment on above: Performed By: #### L 200.61594, L200.99152 #### [facility] [address] [place] [address] IMMATR GRAN ABS 0.00 K/CU MM Normal Less than 2 [facility] Comment on above: Performed By: #### L 200.97878, L200.64395 #### [facility] [address] [place] [address] IMMATURE GRAN % 0.3 % Normal Less than 2 [facility] Comment on above: Performed By: #### L 200.80804, L200.47513 #### [facility] [address] [place] [address] Lymphocytes (Bld) [#/Vol] 1.70 K/CU MM Normal 0.9-4.4 [facility] Comment on above: Performed By: #### L 200.39927, L200.67845 #### [facility] [address] [place] [address] Lymphocytes/100 WBC (Bld) 25.6 % Normal 20-40 [facility] Comment on above: Performed By: #### L 200.63333, L200.58594 #### [facility] [address] [place] [address] MCHC (RBC) [Mass/Vol] 34.1 g/dL Normal 32.0-36.0 [facility] Comment on above: Performed By: #### L 200.18968, L200.67634 #### [facility] [address] [place] [address] MCV (RBC) [Entitic vol] 94.2 fL Normal 80.0-99.0 [facility] Comment on above: Performed By: #### L 200.67062, L200.41019 #### [facility] [address] [place] [address] MONO ABS 0.60 K/CU MM Normal 0.1-1.1 [facility] Comment on above: Performed By: #### L 200.74322, L200.02764 #### [facility] [address] [place] [address] Monocytes/100 WBC (Bld) 9.2 % Normal 2-10 [facility] Comment on above: Performed By: #### L 200.86171, L200.22476 #### [facility] [address] [place] [address] NEUTROPHIL ABS 4.30 K/CU MM Normal 2.0-8.3 [facility] Comment on above: Performed By: #### L 200.36400, L200.37015 #### [facility] [address] [place] [address] Neutrophils/100 WBC (Bld) 63.1 % Normal 45-75 [facility] Comment on above: Performed By: #### L 200.35870, L200.73814 #### [facility] [address] [place] [address] Nucleated RBC/100 WBC (Bld) [Ratio] 0.0 % Normal Less than 1 [facility] Comment on above: Performed By: #### L 200.52221, L200.77151 #### [facility] [address] [place] [address] Platelet mean volume (Bld) [Entitic vol] 9.8 fL Normal 9.4-12.4 [facility] Comment on above: Performed By: #### L 200.33445, L200.99131 #### [facility] [address] [place] [address] Platelets (Bld) [#/Vol] 285 K/CU MM Normal 150-450 [facility] Comment on above: Performed By: #### L 200.34150, L200.98975 #### [facility] [address] [place] [address] RBC (Bld) [#/Vol] 4.45 M/CU MM Normal 3.90-5.30 [facility] Comment on above: Performed By: #### L 200.30764, L200.71827 #### [facility] [address] [place] [address] WBC (Bld) [#/Vol] 6.8 K/CUMM Normal 4.5-11.0 [facility] Comment on above: Performed By: #### L 200.44447, L200.05668 #### [facility] [address] [place] [address] CMPon 07-04-2019 Albumin [Mass/Vol] 4.4 g/dL Normal 3.2-5.0 [facility] Comment on above: Performed By: #### L 500.74399, L500.13478, L500.51617, L550.08315, L700.64632 #### [facility] [address] [place], [place] [address] Albumin/Globulin [Mass ratio] 1.3 {ratio} Normal 0.8-2.0 [facility] Comment on above: Performed By: #### L 500.67853, L500.34848, L500.29405, L550.32098, L700.40116 #### [facility] [address] [place] [address] ALK PHOS 102 U/L Normal 45-117 [facility] Comment on above: Performed By: #### L 500.59161, L500.28300, L500.11610, L550.41302, L700.96024 #### [facility] [address] [id number] ALT [Catalytic activity/Vol] 48 U/L Normal 13-61 [facility] Comment on above: Result Comment: RESU LTS MAY BE FALSELY DEPRESSED AFTER THE ADMINISTRATION OF SULFASALAZINE AND/OR SULFAPYRIDINE. Performed By: #### L 500.80613, L500.61001, L500.44504, L550.32616, L700.42323 #### [facility] [address] [place] [address] Anion gap [Moles/Vol] 10 mmol/L Normal 5-16 [facility] Comment on above: Performed By: #### L 500.39906, L500.04637, L500.05111, L550.83491, L700.10692 #### [facility] [address] [place] [address] BILI TOTAL 0.4 MG/DL Normal 0.2-1.0 [facility] Comment on above: Performed By: #### L 500.69512, L500.98443, L500.18907, L550.21046, L700.06754 #### [facility] [address] [place] [address] Calcium [Mass/Vol] 8.9 mg/dL Normal 8.5-10.1 [facility] Comment on above: Performed By: #### L 500.00835, L500.44468, L500.52042, L550.27245, L700.65351 #### [facility] [address] [place] [address] Chloride [Moles/Vol] 101 mmol/L Normal 98-107 [facility] Comment on above: Performed By: #### L 500.27606, L500.97179, L500.33857, L550.27334, L700.40977 #### [facility] [address] [place] [address] CO2 [Moles/Vol] 26 mmol/L Normal 21-32 [facility] Comment on above: Performed By: #### L 500.97491, L500.89644, L500.92869, L550.02423, L700.41597 #### [facility] [address] [place] [address] Creatinine [Mass/Vol] 0.739 mg/dL Normal 0.510-0.950 [facility] Comment on above: Result Comment: Xena ents receiving either N-Acetylcysteine (NAC) or Metamizole prior to venipuncture, may have falsely depressed results. Performed By: #### L 500.52290, L500.96434, L500.90000, L550.47018, L700.95034 #### [facility] [address] [place] [address] Globulin (S) [Mass/Vol] 3.3 g/dL Normal 2.2-4.2 [facility] Comment on above: Performed By: #### L 500.28248, L500.37345, L500.27525, L550.82143, L700.97127 #### [facility] [address] [place] [address] Glucose [Mass/Vol] 85 mg/dL Normal 70-100 [facility] Comment on above: Result Comment: 70-1 00- Normal Fasting; 100-125 Impaired Fasting; greater than 126 on more than one result- Diabetes. ADA guidelines. Results may be falsely elevated after the administration of Sulfapyridine. Results may be falsely depressed after the administration of Sulfasalazine. Performed By: #### L 500.15011, L500.05874, L500.18533, L550.88384, L700.96449 #### [facility] [address] [place] [address] Potassium [Moles/Vol] 3.8 mmol/L Normal 3.5-5.1 [facility] Comment on above: Performed By: #### L 500.68955, L500.62519, L500.33125, L550.45599, L700.11781 #### [facility] [address] [place] [address] Protein [Mass/Vol] 7.7 g/dL Normal 6.0-8.5 [facility] Comment on above: Performed By: #### L 500.27637, L500.95993, L500.02440, L550.70153, L700.06183 #### [facility] [address] [place] [address] SGOT (AST) 29 U/L Normal 8-34 [facility] Comment on above: Result Comment: RESU LTS MAY BE FALSELY DEPRESSED AFTER THE ADMINISTRATION OF SULFASALAZINE AND/OR SULFAPYRIDINE. Performed By: #### L 500.79238, L500.62299, L500.77938, L550.80231, L700.88432 #### [facility] [address] [place] [address] Sodium [Moles/Vol] 136 mmol/L Normal 136-145 [facility] Comment on above: Performed By: #### L 500.19830, L500.85254, L500.44298, L550.07166, L700.69146 #### [facility] [address] [place] [address] Urea nitrogen [Mass/Vol] 17 mg/dL Normal 7-26 [facility] Comment on above: Performed By: #### L 500.06688, L500.38949, L500.86206, L550.64343, L700.13934 #### [facility] [address] [place] [address] Urea nitrogen/Creatinine [Mass ratio] 23 mg/mg Normal 15-24 [facility] Comment on above: Performed By: #### L 500.97797, L500.81503, L500.24066, L550.33642, L700.52773 #### [facility] [address] [place] [address] CRPon 07-04-2019 CRP [Mass/Vol] 0.89 MG/DL High 0.00-0.32 [facility] Comment on above: Performed By: #### L 500.07300, L500.25807, L500.45814, L550.16897, L700.00810 #### [facility] [address] [place] [address] FOOT 2 VIEWS BILATERALon FOOT 2 VIEWS [...] or periosteal reaction. IMPRESSION: Mild left and zqyg-ro-hxumtpqj right degenerative changes most consistent with osteoarthritis. No erosions are shown. ---- Electronic Signature on File ---- Signed By: Alejandra Chavez MD [email or web address] Dictated: 07/04/2019 1:01 PM Signed: 07/04/2019 1:10 PM Reported By: ALEJANDRA CHAVEZ M.D. Signed By: ALEJANDRA CHAVEZ M.D. Normal [facility] HUBER Lozada 07-04-2019 IF AMER Greater than 60 Normal [facility] Comment on above: Performed By: #### L 500.56764, L500.21600, L500.29372, L550.96473, L700.73729 #### [facility] [address] [place] [address]# [phone] IF non-AFR AMER Greater than 60 Normal [facility] Comment on above: Performed By: #### L 500.44803, L500.51403, L500.27279, L550.31895, L700.33379 #### [facility] [address] [place] [address] # [phone] HAND 2 VIEWS BILATERALon HAND 2 VIEWS [...] or periosteal reaction. IMPRESSION: Mild left and nrpf-ob-asenuaso right degenerative changes most consistent with osteoarthritis. No erosions are shown. ---- Electronic Signature on File ---- Signed By: Alejandra Chavez MD [email or web address] Dictated: 07/04/2019 1:01 PM Signed: 07/04/2019 1:10 PM Reported By: ALEJANDRA CHAVEZ M.D. Signed By: ALEJANDRA CHAVEZ M.D. Normal [facility] HBCABon 07-04-2019 HBCAB NONREACTIVE Normal NONREACTIVE [facility] Comment on above: Result Comment: RESU LTS WERE OBTAINED WITH THE CENTAUR XP ANTI-HCB ASSAY. VALUES OBTAINED WITH DIFFERENT MANUFACTURERS' ASSAY METHODS MAY NOT BE USED INTERCHANGEABLY. Performed By: #### L 540.33062, L540.80978, L540.73619, L540.42234 #### [facility] [address] [place] [place] [address]# [phone] HBSAGon 07-04-2019 HBSAG NONREACTIVE Normal NONREACTIVE [facility] Comment on above: Result Comment: RESU LTS WERE OBTAINED WITH THE CENTAUR XP. VALUES OBTAINED WITH DIFFERENT MANUFACTURERS' ASSAY METHODS MAY NOT BE USED INTERCHANGEABLY. Performed By: #### L 540.64126, L540.40009, L540.88620, L540.94733 #### [facility] [address] [place] [address] HEP B AB QUANTon 07-04-2019 HEP B AB QUANT 31.50 mIU/mL High 0.00-9.99 [facility] Comment on above: Result Comment: STAT US OF IMMUNITY Protective Immunity: greater than or equal to 10 mIU/mL (Traceable to WHO International Reference Preparation) No Protective Immuniity: less than 10 mIU/mL Note: The magnitude of the measured result above the cutoff is not indicative of the total amount of antibody present. Performed By: #### L 540.65095, L540.69084, L540.88287, L540.64222 #### [facility] [address] [place], [place] [address] HEPATITIS C ABon 07-04-2019 HCV AB NONREACTIVE Normal NONREACTIVE [facility] Comment on above: Result Comment: SCRE ENING TEST NEGATIVE NONREACTIVE HCV ANTIBODY SCREEN IS CONSISTENT WITH NO HCV INFECTION, UNLESS RECENT INFECTION IS SUSPECTED OR OTHER EVIDENCE EXISTS TO INDICATE HCV INFECTION Performed By: #### L 500.54137, L500.15438, L500.12224, L550.42592, L700.70487 #### [facility] [address] [place] [address] KNEES 3 VIEWS BILATERALon KNEES 3 VIEWS [...] or periosteal reaction. IMPRESSION: Mild left and niwu-da-wzgixpcr right degenerative changes most consistent with osteoarthritis. No erosions are shown. ---- Electronic Signature on File ---- Signed By: Alejandra Chavez MD [email or web address] Dictated: 07/04/2019 1:01 PM Signed: 07/04/2019 1:10 PM Reported By: ALEJANDRA CHAVEZ M.D. Signed By: ALEJANDRA CHAVEZ M.D. [facility] LUMBAR SPINE 2 OR 3 VWSon LUMBAR [...] or periosteal reaction. IMPRESSION: Mild left and lzoi-jd-ktpsxcwx right degenerative changes most consistent with osteoarthritis. No erosions are shown. ---- Electronic Signature on File ---- Signed By: Alejandra Chavez MD [email or web address] Dictated: 07/04/2019 1:01 PM Signed: 07/04/2019 1:10 PM Reported By: ALEJANDRA CHAVEZ M.D. Signed By: ALEJANDRA CHAVEZ M.D. Normal [facility] RA FACTOR QUANTon 07-04-2019 RA FACTOR QUANT LESS THAN 10 Normal Less than 15. [facility] Comment on above: Performed By: #### L 500.67305, L500.18896, L500.75284, L550.53260, L700.10196 #### [facility] [address] [place] [address]# [phone] SACROILIAC JOINTS 3 OR MORE VWon 07-04-2019 SACROILIAC JOINTS 3 OR MORE VW LUMBAR SPINE 2 OR 3 VWS, SACROILIAC JOINTS 3 OR MORE VW, HAND 2 VIEWS BILATERAL, KNEES 3 VIEWS BILATERAL, FOOT 2 VIEWS BILATERAL Ordering Physician: Eduardo Runao DO 07/04/2019 12:00 PM LUMBAR SPINE SERIES [...] or periosteal reaction. IMPRESSION: Mild left and dyet-cw-nmnrgohv right degenerative changes most consistent with osteoarthritis. No erosions are shown. ---- Electronic Signature on File ---- Signed By: Alejandra Chavez MD [email or web address] Dictated: 07/04/2019 1:01 PM Signed: 07/04/2019 1:10 PM Reported By: ALEJANDRA CHAVEZ M.D. Signed By: ALEJANDRA CHAVEZ M.D. Normal [facility] URIC ACIDon 07-04-2019 Urate [Mass/Vol] 8.3 mg/dL High 2.6-6.0 [facility] Comment on above: Result Comment: Xena ents receiving Metamizole prior to venipuncture, may have falsely depressed results. Performed By: #### L 500.11839, L500.24923, L500.57855, L550.21370, L700.24424 #### [facility] [address] [place] [address] WSR/MODon 07-04-2019 WSR/MOD 4 MM/HR Normal 0-30 [facility] Comment on above: Performed By: #### L 200.56004, L200.83117 #### [facility] [address] [place] [address] PROGRESSon 08-07-2017 PROGRESS HNO ID: [id number]: Bianca Olivier (Rt)e: RadiologyAuthor Type: TechnicianType: Progress NotesFiled: 08/07/2017 11:07 AMNote Text: Radiology Service Progress NotePATIENT NAME: Judy TaverassMRN: [id number] OF SERVICE: August 07, 2017TIME: 11:06 AMPATIENT [...] SALINAS MD on Aug 07 2017 11:37AM [id number] N [facility] XR HAND 3V PA/LAT/OBL LTon 0 [...] LEFT HAND PAIN AND JOINT SWELLING (accession [id number]), RIGHT HAND PAIN, AND JOINT SWELLING X 2 MONTHS, FALL X1 WEEK AGO LANDING ON RIGHT WRIST AREA (accession [id number]), LOWER BACK PAIN, NO KNOWN INJURIES (accession [id number]) Pain in right hand Pain in left hand Effusion, unspecified joint Disorder of the skin and subcutaneous tissue, unspecified.TECHNIQUE: XR HAND 3V PA/LAT/OBL LT, XR HAND 3V PA/LAT/OBL RT, XR SI JTS 2V AP PELV/TAYLOR Laterality: NOT APPLICABLE (accession [id number]), RIGHT (accession [id number]), NOT APPLICABLE (accession [id number]) Number of different views (projections): 2 (accession [id number]), 3 (accession [id number]), 2 (accession [id number]) M: XB_1COMPARISON: NoneRESULT:Sacroiliac joints. Bilaterally the joints [...] thumb bases and IP joints of the thumbs.General Cleaner: REBECCA Transcribe Date/Time: Aug 07 2017 12:56PDictated by : RENAN ARMAS MDThis examination was interpreted and the report reviewed and electronically signed by: RENAN ARMAS MD on Aug 07 2017 1:00PM [id number] N [facility] XR HAND 3V PA/LAT/OBL RTon 0 [...] LEFT HAND PAIN AND JOINT SWELLING (accession [id number]), RIGHT HAND PAIN, AND JOINT SWELLING X 2 MONTHS, FALL X1 WEEK AGO LANDING ON RIGHT WRIST AREA (accession [id number]), LOWER BACK PAIN, NO KNOWN INJURIES (accession [id number]) Pain in right hand Pain in left hand Effusion, unspecified joint Disorder of the skin and subcutaneous tissue, unspecified.TECHNIQUE: XR HAND 3V PA/LAT/OBL LT, XR HAND 3V PA/LAT/OBL RT, XR SI JTS 2V AP PELV/TAYLOR Laterality: NOT APPLICABLE (accession [id number]), RIGHT (accession [id number]), NOT APPLICABLE (accession [id number]) Number of different views (projections): 2 (accession [id number]), 3 (accession [id number]), 2 (accession [id number]) M: XB_1COMPARISON: NoneRESULT:Sacroiliac joints. Bilaterally the joints [...] thumb bases and IP joints of the thumbs.General Cleaner: REBECCA Transcribe Date/Time: Aug 07 2017 12:56PDictated by : RENAN ARMAS MDThis examination was interpreted and the report reviewed and electronically signed by: RENAN ARMAS MD on Aug 07 2017 1:00PM [id number] N [facility] XR SI JTS 2V AP PELV/FERGUSO [...] LEFT HAND PAIN AND JOINT SWELLING (accession [id number]), RIGHT HAND PAIN, AND JOINT SWELLING X 2 MONTHS, FALL X1 WEEK AGO LANDING ON RIGHT WRIST AREA (accession [id number]), LOWER BACK PAIN, NO KNOWN INJURIES (accession [id number]) Pain in right hand Pain in left hand Effusion, unspecified joint Disorder of the skin and subcutaneous tissue, unspecified.TECHNIQUE: XR HAND 3V PA/LAT/OBL LT, XR HAND 3V PA/LAT/OBL RT, XR SI JTS 2V AP PELV/TAYLOR Laterality: NOT APPLICABLE (accession [id number]), RIGHT (accession [id number]), NOT APPLICABLE (accession [id number]) Number of different views (projections): 2 (accession [id number]), 3 (accession [id number]), 2 (accession [id number]) M: XB_1COMPARISON: NoneRESULT:Sacroiliac joints. Bilaterally the joints [...] thumb bases and IP joints of the thumbs.General Cleaner: REBECCA Transcribe Date/Time: Aug 07 2017 12:56PDictated by : RENAN ARMAS MDThis examination was interpreted and the report reviewed and electronically signed by: RENAN ARMAS MD on Aug 07 2017 1:00PM [id number] Normal [facility] Outside Radiology Readon Outside Radiology Read This is a prelimi nary report only. This report will be final only after practitioner review and authentication has occurred.NAME: TRINA REAGAN#: [id number] OF STUDY: 06/14/2017RADIOLOGYREASO N FOR X-RAY: Right [...] patellofemoral replacement seen on the left. EUNICE PENNINGTON/JACQUI/[id number] 653D: 06/14/2017 12:34:39 [facility] PT NAME: TRINA REAGAN#: [id number] [place] [address] ACCT: [id number]: 62DOWNTIME RADIOLGY REPORT ADM DATE: Normal [facility] Vital Signs Date Time Vital Sign Value Performing Clinician Faci lity 03-25-2025 18:16-0400 Body temperature 99.2 [degF] Dr. Hernandez Mosley MD Work Phone: [facility] 03-25-2025 18:16-0400 Diastolic blood pressure 96 mm[Hg] Dr. Hernandez Mosley MD Work Phone: [facility] 03-25-2025 18:16-0400 Heart rate 97 /min Dr. Hernandez Mosley MD Work Phone: [facility] 03-25-2025 18:16-0400 Respiratory rate 15 /min Dr. Hernandez Mosley MD Work Phone: [facility] 03-25-2025 18:16-0400 SaO2% (BldA) [Mass fraction] 94 % Dr. Hernandez Mosley MD Work Phone: [facility] 03-25-2025 18:16-0400 Systolic blood pressure 117 mm[Hg] Dr. Hernandez Mosley MD Work Phone: [facility] 03-25-2025 15:08-0400 Diastolic blood pressure 91 mm[Hg] Dr. Hernandez Mosley MD Work Phone: [facility] 03-25-2025 15:08-0400 Heart rate 85 /min Dr. Hernandez Mosley MD Work Phone: [facility] 03-25-2025 15:08-0400 Respiratory rate 18 /min Dr. Hernandez Mosley MD Work Phone: [phone] [place] [address] 03-25-2025 15:08-0400 SaO2% (BldA) [Mass fraction] 99 % Dr. Hernandez Mosley MD Work Phone: [phone] [place] [address] 03-25-2025 15:08-0400 Systolic blood pressure 151 mm[Hg] Dr. Hernandez Mosley MD Work Phone: 6(545)[phone] [place] [address] 03-25-2025 15:02-0400 Body mass index (BMI) [Ratio] 28.4 kg/m2 Dr. Hernandez Mosley MD Work Phone: [phone] [place] [address] 03-25-2025 15:02-0400 Body weight 75.[address] Hernandez Mosley MD Work Phone: [phone] [address] 03-25-2025 14:09-0400 Body height 162.[address] Hernandez Mosley MD Work Phone: 7(876)123-645060 [place] [address] 03-25-2025 14:09-0400 Body temperature 99.9 [degF] Dr. Hernandez Mosley MD Work Phone: 5(417)121-867465 [place] [address] 03-10-2025 09:05-0400 Body temperature 97 [degF] Dr. Hernandez Mosley MD Work Phone: [facility] 03-10-2025 09:05-0400 Diastolic blood pressure 74 mm[Hg] Dr. Hernandez Mosley MD Work Phone: [facility] 03-10-2025 09:05-0400 Heart rate 64 /min Dr. Hernandez Mosley MD Work Phone: [facility] 03-10-2025 09:05-0400 Respiratory rate 16 /min Dr. Hernandez Mosley MD Work Phone: 4(277)624-916565 [place] [address] 03-10-2025 09:05-0400 SaO2% (BldA) [Mass fraction] 96 % Dr. Hernandez Mosley MD Work Phone: 0(288)752-588265 [place] [address] 03-10-2025 09:05-0400 Systolic blood pressure 111 mm[Hg] Dr. Hernandez Mosley MD Work Phone: 7(456)728-788660 [place] [address] 03-10-2025 07:32-0400 Body height 162.[address] Hernandez Mosley MD Work Phone: 1(447)357-242560 [place] [address] 03-10-2025 07:32-0400 Body mass index (BMI) [Ratio] 28.8 kg/m2 Dr. Hernandez Mosley MD Work Phone: 9(322)977-421260 [place] [address] 03-10-2025 07:32-0400 Body weight [address] Hernandez Mosley MD Work Phone: 3(281)347-150360 [place] [address] 10-07-2024 12:20-0400 Body temperature 97.5 [degF] Dr. Hernandez Mosley MD Work Phone: 6(955)043-129560 [place] [address] 10-07-2024 12:20-0400 Diastolic blood pressure 91 mm[Hg] Dr. Hernandez Mosley MD Work Phone: 4(887)837-306860 [place] [address] 10-07-2024 12:20-0400 Heart rate 75 /min Dr. Hernandez Mosley MD Work Phone: 8(737)439-024760 [place] [address] 10-07-2024 12:20-0400 Respiratory rate 16 /min Dr. Hernandez Mosley MD Work Phone: 6(648)011-090860 [place] [address] 10-07-2024 12:20-0400 SaO2% (BldA) [Mass fraction] 100 % Dr. Hernandez Mosley MD Work Phone: 8(350)682-021160 [place] [address] 10-07-2024 12:20-0400 Systolic blood pressure 149 mm[Hg] Dr. Hernandez Mosley MD Work Phone: 9(319)804-324860 [place] [address] 10-07-2024 11:21-0400 Body height 162.[address] Hernandez Mosley MD Work Phone: [facility] 10-07-2024 11:21-0400 Body mass index (BMI) [Ratio] 28.3 kg/m2 Dr. Hernandez Mosley MD Work Phone: 8(183)315-388865 [place] [address] 10-07-2024 11:21-0400 Body weight [address] Hernandez Mosley MD Work Phone: 8(127)929-956060 [place] [address] 06-24-2024 09:37-0500 Body mass index (BMI) [Ratio] 28.1 kg/m2 Dr. Hernandez Mosley MD Work Phone: 2(727)639-167560 [place] [address] 06-24-2024 09:37-0500 Body temperature 98 [degF] Dr. Hernandez Mosley MD Work Phone: 7(011)481-961160 [place] [address] 06-24-2024 09:37-0500 Body weight 74.[address] Hernandez Mosley MD Work Phone: 2(158)897-386760 [place] [address] 06-24-2024 09:37-0500 Diastolic blood pressure 88 mm[Hg] Dr. Hernandez Mosley MD Work Phone: 2(594)270-698460 [place] [address] 06-24-2024 09:37-0500 Heart rate 97 /min Dr. Hernandez Mosley MD Work Phone: 3(926)355-240160 [place] [address] 06-24-2024 09:37-0500 Respiratory rate 16 /min Dr. Hernandez Mosley MD Work Phone: 8(657)972-472260 [place] [address] 06-24-2024 09:37-0500 SaO2% (BldA) [Mass fraction] 98 % Dr. Hernandez Mosley MD Work Phone: 9(904)463-698995 [address] 06-24-2024 09:37-0500 Systolic blood pressure 132 mm[Hg] Dr. Hernandez Mosley MD Work Phone: 8(308)374-299160 [place] [address] 11-14-2023 13:55-0400 Body temperature 97.4 [degF] Dr. Hernandez Mosley Work Phone: 8(892)957-074560 [place] [address] 11-14-2023 13:55-0400 Diastolic blood pressure 87 mm[Hg] Dr. Hernandez Mosley Work Phone: [facility] 11-14-2023 13:55-0400 Heart rate 80 /min Dr. Hernandez Mosley Work Phone: [facility] 11-14-2023 13:55-0400 Respiratory rate 16 /min Dr. Hernandez Mosley Work Phone: [facility] 11-14-2023 13:55-0400 SaO2% (BldA) [Mass fraction] 95 % Dr. Hernandez Mosley Work Phone: [facility] 11-14-2023 13:55-0400 Systolic blood pressure 120 mm[Hg] Dr. Hernandez Mosley Work Phone: 1(909)030-757265 [place] [address] 11-14-2023 12:05-0400 Body height 162.[address] Hernandez Mosley Work Phone: 9(809)994-236495 [address] 11-14-2023 12:05-0400 Body mass index (BMI) [Ratio] 28.3 kg/m2 Dr. Hernandez Mosley Work Phone: 4(654)650-684695 [address] 11-14-2023 12:05-0400 Body weight [address] Hernandez Mosley Work Phone: 9(378)478-012365 [place] [address] 10-18-2023 14:15-0400 Body height 162.[address] Hernandez Mosley Work Phone: 7(200)800-512395 [address] 10-18-2023 14:15-0400 Body mass index (BMI) [Ratio] 28.1 kg/m2 Dr. Hernandez Mosley Work Phone: [facility] 10-18-2023 14:15-0400 Body weight 74.[address] Hernandez Mosley Work Phone: 4(906)411-425865 [place] [address] 10-18-2023 14:15-0400 Diastolic blood pressure 69 mm[Hg] Dr. Hernandez Mosley Work Phone: 5(183)619-204265 [place] [address] 10-18-2023 14:15-0400 Heart rate 92 /min Dr. Hernandez Mosley Work Phone: 7(851)228-136965 [place] [address] 10-18-2023 14:15-0400 Respiratory rate 17 /min Dr. Hernandez Mosley Work Phone: [facility] 10-18-2023 14:15-0400 SaO2% (BldA) [Mass fraction] 95 % Dr. Hernandez Mosley Work Phone: [facility] 10-18-2023 14:15-0400 Systolic blood pressure 115 mm[Hg] Dr. Hernandez Mosley Work Phone: [facility] 09-26-2023 09:00-0500 Body temperature 97.8 [degF] Dr. Hernandez Mosley Work Phone: [facility] 09-26-2023 09:00-0500 Diastolic blood pressure 88 mm[Hg] Dr. Hernandez Mosley Work Phone: [facility] 09-26-2023 09:00-0500 Heart rate 84 /min Dr. Hernandez Molsey Work Phone: [facility] 09-26-2023 09:00-0500 Respiratory rate 18 /min Dr. Hernandez Mosley Work Phone: [facility] 09-26-2023 09:00-0500 SaO2% (BldA) [Mass fraction] 98 % Dr. Hernandez Mosley Work Phone: [facility] 09-26-2023 09:00-0500 Systolic blood pressure 152 mm[Hg] Dr. Hernandez Mosley Work Phone: [facility] 09-26-2023 03:13-0500 Body mass index (BMI) [Ratio] 27.9 kg/m2 Dr. Hernandez Mosley Work Phone: [facility] 09-26-2023 03:13-0500 Body weight 74.[address] Hernandez Mosley Work Phone: [facility] 09-25-2023 15:08-0500 Body height 162.[address] Hernandez Mosley Work Phone: [facility] 09-24-2023 04:45-0500 Body temperature 97.8 [degF] Dr. Hernandez Mosley Work Phone: [facility] 09-24-2023 04:45-0500 Diastolic blood pressure 97 mm[Hg] Dr. Hernandez Mosley Work Phone: [facility] 09-24-2023 04:45-0500 Heart rate 96 /min Dr. Hernandez Mosley Work Phone: [facility] 09-24-2023 04:45-0500 Respiratory rate 18 /min Dr. Hernandez Mosley Work Phone: [facility] 09-24-2023 04:45-0500 SaO2% (BldA) [Mass fraction] 99 % Dr. Hernandez Mosley Work Phone: [facility] 09-24-2023 04:45-0500 Systolic blood pressure 153 mm[Hg] Dr. Hernandez Mosley Work Phone: 3(960)891-355665 [place] [address] 09-24-2023 04:34-0500 Body height 162.[address] Hernandez Mosley Work Phone: [facility] 09-24-2023 04:34-0500 Body mass index (BMI) [Ratio] 28.3 kg/m2 Dr. Hernandez Mosley Work Phone: [facility] 09-24-2023 04:34-0500 Body weight [address] Hernandez Mosley Work Phone: [facility] 07-05-2023 09:42-0500 Body weight 75.[address] Hernandez Mosley Work Phone: [facility] 06-21-2023 18:09-0500 Body temperature 97.2 [degF] Dr. Hernandez Mosley Work Phone: [facility] 06-21-2023 18:09-0500 Diastolic blood pressure 96 mm[Hg] Dr. Hernandez Mosley Work Phone: [facility] 06-21-2023 18:09-0500 Heart rate 91 /min Dr. Hernandez Mosley Work Phone: [facility] 06-21-2023 18:09-0500 Respiratory rate 16 /min Dr. Hernandez Mosley Work Phone: [facility] 06-21-2023 18:09-0500 SaO2% (BldA) [Mass fraction] 94 % Dr. Hernandez Mosley Work Phone: [facility] 06-21-2023 18:09-0500 Systolic blood pressure 143 mm[Hg] Dr. Hernandez Mosley Work Phone: [facility] 06-21-2023 15:20-0500 Inhaled oxygen flow rate 4 L/min Dr. Hernandez Mosley Work Phone: [facility] 06-21-2023 09:45-0500 Body height 162.[address] Hernandez Mosley Work Phone: [facility] 06-21-2023 09:45-0500 Body mass index (BMI) [Ratio] 28 kg/m2 Dr. Hernandez Mosley Work Phone: [facility] 06-21-2023 09:45-0500 Body weight [address] Hernandez Mosley Work Phone: [facility] 04-22-2023 00:38-0400 Respiratory rate 116 /min Dr. Hernandez Mosley Work Phone: [facility] 04-21-2023 23:12-0400 Body height 162.[address] Hernandez Mosley Work Phone: [facility] 04-21-2023 23:12-0400 Body mass index (BMI) [Ratio] 29.4 kg/m2 Dr. Hernandez Mosley Work Phone: [facility] 04-21-2023 23:12-0400 Body temperature 96.7 [degF] Dr. Hernandez Mosley Work Phone: [facility] 04-21-2023 23:12-0400 Body weight 77.[address] Hernandez Mosley Work Phone: [facility] 04-21-2023 23:12-0400 Diastolic blood pressure 73 mm[Hg] Dr. Hernandez Mosley Work Phone: [facility] 04-21-2023 23:12-0400 Heart rate 70 /min Dr. Hernandez Mosley Work Phone: [facility] 04-21-2023 23:12-0400 SaO2% (BldA) [Mass fraction] 97 % Dr. Hernandez Mosley Work Phone: [facility] 04-21-2023 23:12-0400 Systolic blood pressure 115 mm[Hg] Dr. Hernandez Mosley Work Phone: [facility] 10-15-2022 14:12-0400 Body temperature 98.3 [degF] Dr. Hernandez Mosley Work Phone: [facility] 10-15-2022 14:12-0400 Diastolic blood pressure 79 mm[Hg] Dr. Hernandez Mosley Work Phone: [facility] 10-15-2022 14:12-0400 Heart rate 85 /min Dr. Hernandez Mosley Work Phone: [facility] 10-15-2022 14:12-0400 Respiratory rate 18 /min Dr. Hernandez Mosley Work Phone: [facility] 10-15-2022 14:12-0400 SaO2% (BldA) [Mass fraction] 98 % Dr. Hernandez Mosley Work Phone: [facility] 10-15-2022 14:12-0400 Systolic blood pressure 130 mm[Hg] Dr. Hernandez Mosley Work Phone: [facility] 10-14-2022 09:14-0400 Body height 162.[address] Hernandez Mosley Work Phone: [facility] 10-14-2022 09:14-0400 Body weight 72.[address] Hernandez Mosley Work Phone: [facility] 10-11-2022 20:21-0400 Inhaled oxygen flow rate 2 L/min Dr. Hernandez Mosley Work Phone: [facility] 10-11-2022 18:03-0400 Body mass index (BMI) [Ratio] 27.4 kg/m2 Dr. Hernandez Mosley Work Phone: [facility] 06-24-2022 10:35-0500 Body height 162.[address] Hernandez Mosley Work Phone: [facility] 12-22-2021 11:57-0400 Respiratory rate 16 /min [facility] Work Phone: 12-22-2021 10:20-0400 Diastolic blood pressure 97 mm[Hg] [facility] Work Phone: 12-22-2021 10:20-0400 Heart rate 113 /min [facility] Work Phone: 12-22-2021 10:20-0400 SaO2% (BldA) [Mass fraction] 97 % [facility] Work Phone: 12-22-2021 10:20-0400 Systolic blood pressure 159 mm[Hg] [facility] Work Phone: 12-22-2021 08:21-0400 Body height 162.56 cm [facility] Work Phone: 12-22-2021 08:21-0400 Body mass index (BMI) [Ratio] 28.4 kg/m2 [facility] Work Phone: 12-22-2021 08:21-0400 Body temperature 98.1 [degF] [facility] Work Phone: 12-22-2021 08:21-0400 Body weight 75.2 kg [facility] Work Phone: Encounters Encounter Date Encounter Type Care Provider Facility Start: 03-25-2025 Evaluation and management of inpatient Dr. Jennifer Dunne MD -Medical Surgical 3 Work Phone: Start: 03-25-2025 Emergency department patient visit Dr. Hernandez Mosley MD Work Phone: -Emergency Department Work Phone: Start: 03-18-2025 End: 03-18-2025 Patient encounter procedure Stanley Godwin DO [facility] Work Phone: Start: 03-18-2025 End: 03-18-[address] Hernandez Mosley MD Work Phone: [facility] Start: 03-10-2025 End: 03-10-2025 Admission to same day surgery center Dr. Montana Quiñonez MD -Surgical Day Care Start: 03-10-2025 End: 03-10-[address] Hernandez Mosley MD Work Phone: -Surgical Day Care Start: 12-02-2024 End: 12-02-[address] Hernandez Mosley MD Work Phone: [facility] Work Phone: Start: 12-02-2024 End: 12-02-[address] Hernandez Mosley MD -Laboratory Work Phone: Start: 12-02-2024 End: 12-02-2024 ambulatory Hernandez [facility] Dimitri Facility:[place] Start: 10-28-2024 End: 10-28-2024 Patient encounter procedure Stanley Godwin [facility] Work Phone: Start: 10-28-2024 End: 10-28-[address] Hernandez Mosley MD Work Phone: [facility] Work Phone: Start: 10-28-2024 End: 10-28-2024 ambulatory Hernandez [facility] Dimitri Facility:[place] Start: 10-07-2024 End: 10-07-2024 Admission to same day surgery center Dr. Montana Quiñonez MD -Surgical Day Care Start: 10-07-2024 End: 10-07-[address] Hrenandez Mosley MD Work Phone: [facility] Work Phone: Start: 09-05-2024 ambulatory Hernandez Mosley Facility:[facility] Start: 08-12-2024 End: 08-12-2024 Patient encounter procedure Stanley Godwin DO -Cat Scan, [facility] Work Phone: Start: 08-12-2024 End: 08-12-2024 ambulatory [facility] Dimitri Facility:[place] Start: 06-24-2024 End: 06-24-2024 Patient encounter procedure Gautam ROTH [facility] Work Phone: Start: 06-24-2024 End: 06-24-2024 ambulatory Gautam ROTH Facility:[facility] Start: 05-27-2024 End: 05-27-2024 ambulatory [facility] Dimitri Facility:[place] Start: 05-24-2024 End: 05-24-[address] [facility] Facility:[place] Start: 05-22-2024 End: 05-22-[address] [facility] Facility:[place] Start: 05-03-2024 End: 05-03-2024 ambulatory Stanley Godwin Facility:[facility] Start: 05-03-2024 End: 05-03-2024 ambulatory Stanley Citlali Facility:[place] Start: 04-19-2024 End: 04-19-2024 ambulatory Montana Quiñonez Facility:[place] Start: 11-14-2023 Non-patient / Non-visit Dr. Hernandez Mosley Work Phone: [facility] Start: 11-14-2023 End: 11-14-2023 Admission to same day surgery center Dr. Hernandez Mosley Work Phone: [facility]-Endoscopy Work Phone: Start: 11-14-2023 End: 11-14-[address] Hernandez Mosley Work Phone: [facility] Work Phone: Start: 11-13-2023 End: 11-13-[address] Hernandez Mosley Work Phone: [facility] Work Phone: Start: 11-10-2023 End: 11-10-[address] Hernandez Mosley Work Phone: [facility] Work Phone: Start: 10-27-2023 End: 10-27-[address] Hernandez Mosley Work Phone: [facility] Work Phone: Start: 10-27-2023 End: 10-27-[address] Hernandez Mosley Work Phone: [facility] Work Phone: Start: 10-24-2023 End: 10-24-[address] Hernandez Mosley Work Phone: [facility] Work Phone: Start: 10-24-2023 End: 10-24-[address] Hernandez Mosley Work Phone: [facility] Work Phone: Start: 10-23-2023 End: 10-23-[address] Hernandez Mosley Work Phone: [facility] Work Phone: Start: 10-18-2023 End: 10-18-[address] Hernandez Mosley Work Phone: [facility] Work Phone: Start: 09-26-2023 Non-patient / Non-visit Dr. Hernandez Mosley Work Phone: [facility] Work Phone: Start: 09-25-2023 Non-patient / Non-visit Dr. Hernandez Mosley Work Phone: [facility] Work Phone: Start: 09-25-2023 Non-patient / Non-visit Dr. Hernandez Mosley Work Phone: [facility] Start: 09-24-2023 Non-patient / Non-visit Dr. Hernandez Mosley Work Phone: [facility] Start: 09-24-2023 Non-patient / Non-visit Dr. Hernandez Mosley Work Phone: [facility] Work Phone: Start: 09-24-2023 End: 09-26-2023 Evaluation and management of inpatient Dr. Hernandez Mosley Work Phone: [facility]-Progressive Care Unit Work Phone: Start: 09-21-2023 End: 09-21-[address] Hernandez Mosley Work Phone: [facility] Work Phone: Start: 09-21-2023 End: 09-21-[address] Hernandez Molsey Work Phone: [facility]-Laboratory Work Phone: Start: 09-18-2023 End: 09-18-[address] Hernandez Mosley Work Phone: [facility] Work Phone: Start: 09-18-2023 End: 09-18-[address] Hernandez Mosley Work Phone: [facility]-Laboratory, y Office [address] [place] [address] Start: 08-21-2023 End: 08-21-[address] Hernandez Mosley Work Phone: [facility] Work Phone: Start: 08-17-2023 End: 08-17-[address] Hernandez Mosley Work Phone: [facility] Work Phone: Start: 08-17-2023 End: 08-17-[address] Hernandez Mosley Work Phone: [facility]-Physical Therapy Work Phone: Start: 08-17-[address] Hernandez tovar Work Phone: [facility]-Physical Therapy Work Phone: Start: 08-04-2023 End: 08-04-[address] Hernandez Mosley Work Phone: [facility] Work Phone: Start: 07-07-[address] Hernandez tovar Work Phone: [facility]-Physical Therapy Work Phone: Start: 07-05-2023 End: 07-05-[address] Hernandez Mosley Work Phone: [facility] Work Phone: Start: 07-05-2023 End: 07-05-[address] Hernandez Mosley Work Phone: [facility]-Laboratory, Phy Office 3rd Flr Start: 07-05-2023 End: 07-05-[address] Hernandez Mosley Work Phone: [facility] Work Phone: Start: 06-21-2023 Non-patient / Non-visit Dr. Hernandez Mosley Work Phone: [facility] Start: 06-21-2023 End: 06-21-2023 Admission to same day surgery center Dr. Hernandez Mosley Work Phone: [facility]-Surgical Day Care Start: 06-21-2023 End: 06-21-[address] Hernandez Mosley Work Phone: [facility] Work Phone: Start: 06-19-2023 End: 06-19-2023 Non-patient / Non-visit Dr. Hernandez Mosley Work Phone: [facility] Work Phone: Start: 05-31-2023 End: 05-31-[address] Hernandez Mosley Work Phone: [facility] Work Phone: Start: 05-18-2023 End: 05-18-[address] Hernandez Mosley Work Phone: [facility] Work Phone: Start: 04-21-2023 End: 04-22-2023 Emergency department patient visit Dr. Hernandez Mosley Work Phone: [facility]-Emergency Department Work Phone: Start: 04-19-2023 End: 04-19-[address] Hernandez Mosley Work Phone: [facility] Work Phone: Start: 01-12-2023 End: 01-12-[address] Hernandez Mosley Work Phone: [facility] Work Phone: Start: 10-15-2022 Non-patient / Non-visit Dr. Hernandez Mosley Work Phone: [facility] Start: 10-14-2022 Non-patient / Non-visit Dr. Hernandez Mosley Work Phone: [facility] Start: 10-13-2022 Non-patient / Non-visit Dr. Hernandez Mosley Work Phone: [facility] Start: 10-13-2022 Non-patient / Non-visit Dr. Hernandez Mosley Work Phone: [facility] Start: 10-12-2022 Non-patient / Non-visit Dr. Hernandez Mosley Work Phone: [facility] Start: 10-11-2022 Non-patient / Non-visit Dr. Hernandez Mosley Work Phone: [facility] Start: 10-11-2022 Non-patient / Non-visit Dr. Hernandez Mosley Work Phone: [facility] Start: 10-11-2022 Non-patient / Non-visit Dr. Hernandez Mosley Work Phone: [facility] Start: 10-11-2022 End: 10-15-2022 Evaluation and management of inpatient [facility]. [facility] Start: 10-10-2022 Non-patient / Non-visit Dr. Hernandez Mosley Work Phone: [facility] Start: 09-30-2022 End: 09-30-[address] Hernandez Mosley Work Phone: [facility] Start: 09-23-2022 End: 09-23-[address] Hernandez Mosley Work Phone: [facility] Work Phone: Start: 09-23-2022 End: 09-23-[address] Hernandez Mosley Work Phone: [facility]-Pulmonary Services/Neurology Start: 09-13-2022 End: 09-13-[address] Hernandez Mosley Work Phone: [facility] Work Phone: Start: 09-13-2022 End: 09-13-[address] Hernandez Mosley Work Phone: [facility]-Laboratory, Phy Office 3rd Flr Start: 09-07-2022 End: 09-07-[address] Hernandez Mosley Work Phone: [facility] Work Phone: Start: 09-07-2022 End: 09-07-[address] Hernandez Mosley Work Phone: [facility]-Outpatient Breast Imaging Start: 08-22-2022 Telephone encounter Uriel barr MD Work Phone: Pain Management Comment on above: Patient Question Start: 08-09-2022 End: 08-09-[address] Hernandez Mosley Work Phone: [facility] Work Phone: Start: 08-09-2022 End: 08-09-[address] Hernandez Mosley Work Phone: [facility]-Pre-Admission Testing Start: 08-04-2022 End: 08-04-[address] Hernandez Mosley Work Phone: [facility] Work Phone: Start: 08-04-2022 End: 08-04-[address] Hernandez Mosley Work Phone: [facility]-Laboratory, Phy Office 3rd Flr Start: 06-30-2022 End: 06-30-[address] Hernandez Mosley Work Phone: [facility] Start: 06-24-2022 End: 06-24-[address] Hernandez Mosley Work Phone: [facility] Start: 06-09-2022 End: 06-09-[address] [facility] Start: 06-06-2022 End: 06-06-2022 ambulatory KRIS BERNARDO Facility:[facility] Start: 05-30-2022 End: 05-30-2022 ambulatory YUMIKO WELSH Facility:[facility] Start: 05-19-2022 Telephone encounter Yumiko Henry Work Phone: Podiatry Comment on above: Schedule Surgery Start: 05-18-2022 End: 05-18-2022 ambulatory YUMIKO WELSH Facility:[facility] Start: 05-18-2022 End: 05-18-2022 Subsequent hospital visit by physician [facility] Kassi Mob Work Phone: Radiology Comment [...] Start: 05-02-2022 End: 05-02-2022 ambulatory KRIS BERNARDO Facility:[facility] Start: 05-02-2022 End: 05-02-2022 Subsequent hospital visit by physician [facility] [place] Mob Work Phone: Radiology Comment on above: Pain in both knees, unspecified chronicity [M25.561, M25.562] Start: 04-27-2022 Telephone encounter Jesus Alberto fulton ENGINEER THIRD ASSISTANT.ELECTRIC HOIST OPERATOR Work Phone: Orthopaedics Comment on above: appointment conflict Start: 04-26-2022 Orders Only Jesus Alberto Harris ENGINEER THIRD ASSISTANT.ELECTRIC HOIST OPERATOR Work Phone: Orthopaedics Comment on above: Pain in both knees, unspecified chronicity (Primary Dx) Start: 04-25-2022 Telephone encounter Christian nova MD Work Phone: Orthopaedics Comment on above: Patient Question Start: 03-09-2022 End: 03-09-2022 Patient encounter procedure [facility]-Laboratory, Phy Office 3rd Flr Start: 12-22-2021 End: 12-22-2021 Emergency department patient visit [facility]Emergency Department Start: 10-18-2021 End: 10-18-2021 Patient encounter procedure [facility]-Cat Scan, [facility] Start: 10-18-2021 End: 10-18-2021 Patient encounter procedure [facility]Cat Scan, [facility] Start: 09-10-2021 End: 09-10-2021 Patient encounter procedure [facility]Laboratory, Phy Office 3rd Flr Start: 08-31-2021 End: 08-31-2021 ambulatory YUMIKO WELSH Facility:[facility] Start: 07-14-2021 Patient encounter procedure [facility]-Outpatient Bone Densitometry Start: 08-08-2017 Ambulatory TRINIDAD KAY Facili ty:[id number] Start: 08-07-2017 Ambulatory [facility] Start: 06-14-2017 Ambulatory Sai Estrada Fac ility:[facility] Start: 06-14-2017 Ambulatory TRINIDAD KAY Facility [...] Work Phone: Comment on above: Test Ordered: [id number] Ustekinumab Drug + AntibodyUstekinumab 4.0 ug/mL ES [...] R, et al. Clin Gastroenterol Hepatol 2017;15: 6355-0300.4. Loreto SP, et al. Br J Dermatol;2015:173;855-857.5. Rashaun H, et al. PLOS ONE DOI;10:1371/journal.pone.6808591.6. Yue Mccarthy et al. Br J Dermatol 2014;170:261-273.These tests were developed and their performancecharacteristics determined by [employer]. They have not beencleared or approved by the Food and Drug Administration.However, both drug and anti-drug antibody assays have beendeveloped and validated in accordance with FDA Guidance forIndustry documents: Bioanalytical Method Validation (2013)and Assay Development and Validation for ImmunogenicityTesting of Therapeutic Protein Products (2016).Performed at: [facility] [address] [id number] Director: Michaela Pringle MD, Phone: [phone] at: [facility] [address] [id number] Director: Bhaskar Mane PhD, Phone: [phone] Start: 03-10-[address] Hernandez Mosley [...] Activity Detail Author Start: 08-16-2028 Colonoscopy COLONOSCOPY [facility] Start: 08-16-2028 COLORECTAL CANCER SCREENING COLORECTAL CANCER SCREENING [facility] Start: 03-25-2025 Verification routine [facility] Start: 03-25-2025 Admission procedure [facility] Start: 03-25-2025 Hospital admission, emergency, from emergency room, medical nature [facility] Start: 03-25-2025 Computed tomography of abdomen and pelvis with intravenous contrast Abdomen/Pelvis W IV Cont ONLY [facility] Start: 03-25-2025 CT Abdomen and Pelvi s W contrast IV [facility] Start: 03-10-2025 Injection of spinal epidural space [facility] Start: 03-10-2025 X-ray of lumbar spin e, two or three views Lumbar Spine 2 or 3 Views [facility] Start: 03-10-2025 Patient discharge [facility] Start: 10-07-2024 Njx dx/ther sbst int rlmnr lmbr/sac w/img gdn NJX INTERLAMINAR LMBR/SAC [facility] Start: 10-07-2024 Injection of spinal epidural space [facility] Start: 10-07-2024 Injection using fluoroscopic guidance [facility] Start: 10-07-2024 Patient discharge [facility] Start: 11-14-2023 Patient discharge [facility] Start: 10-23-2023 Patient referral [facility] Work Phone: Start: 09-27-2023 Blood chemistry [facility] Start: 09-26-2023 Patient discharge [facility] Start: 09-24-2023 Serum immunofixation [facility] Start: 09-24-2023 [facility] Start: 09-24-2023 [facility] Start: 09-24-2023 Referral to gastroenterology service [facility] Start: 09-24-2023 Thyroid stimulating hormone measurement [facility] Start: 09-24-2023 [facility] Start: 09-24-2023 Application of intermittent pneumatic compression device [facility] Start: 09-24-2023 Following clinical p athway protocol [facility] Start: 09-24-2023 Assessment of risk o f venous thromboembolism [facility] Start: 09-24-2023 Incentive spirometry [facility] Start: 09-24-2023 Inhalation therapy procedure [facility] Start: 09-24-2023 Insertion of cathete r into peripheral vein [facility] Start: 09-24-2023 Measuring intake and output [facility] Start: 09-24-2023 Oxygen therapy [facility] Start: 09-24-2023 Providing care accor ding to standard [facility] Start: 09-24-2023 Provision of activit y privileges [facility] Start: 09-24-2023 Referral to service [facility] Start: 09-24-2023 [facility] Start: 09-24-2023 Verification routine [facility] Start: 09-24-2023 Admission procedure [facility] Start: 09-21-2023 Procedure [facility] Start: 08-04-2023 Patient referral [facility] Work Phone: Start: 07-31-2023 DIABETES SCREEN DIABETES SCREEN [facility] Start: 07-31-2023 Diabetes Screening Diabetes Screenin g [facility] Start: 06-21-2023 Anes open proc upper ends tibia fibula&/patella ANESTH KNEE AREA SURGERY [facility] Start: 06-21-2023 Arthroplasty patella w/prosthesis REVISE KNEECAP WITH IMPLANT [facility] Start: 06-21-2023 Radiologic examinati on of knee Knee 1 or 2 Views [facility] Start: 06-21-2023 XR Knee 1 or 2 Views [facility] Start: 06-21-2023 Application of ice c ollar, cap or bag [facility] Start: 06-21-2023 Exercises [facility] Start: 06-21-2023 Incentive spirometry [facility] Start: 06-21-2023 Neurovascular assessment [facility] Start: 06-21-2023 Patient discharge [facility] Start: 06-21-2023 Patient education [facility] Start: 06-21-2023 Provision of activit y privileges [facility] Start: 06-21-2023 Recommendation to co ntinue with treatment [facility] Start: 06-21-2023 Referral to service [facility] Start: 06-21-2023 Vital signs measurements [facility] Start: 06-21-2023 Wound care [facility] Start: 06-21-2023 [facility] Start: 03-24-2023 Influenza vaccination Influenza Vacc ine (#1) [facility] Start: 10-15-2022 Patient discharge [facility] Start: 10-11-2022 Following clinical p athway protocol [facility] Start: 10-11-2022 Application of intermittent pneumatic compression device [facility] Start: 10-11-2022 Catheterization of vein [facility] Start: 10-11-2022 Consultation [facility] Start: 10-11-2022 Following clinical p athway protocol [facility] Start: 10-11-2022 Maintenance of drain age tube [facility] Start: 10-11-2022 Measuring intake and output [facility] Start: 10-11-2022 Neurovascular assessment [facility] Start: 10-11-2022 Oxygen therapy [facility] Start: 10-11-2022 Patient education [facility] Start: 10-11-2022 Procedure discontinued [facility] Start: 10-11-2022 Provision of activit y privileges [facility] Start: 10-11-2022 Recommendation to co ntinue with treatment [facility] Start: 10-11-2022 Referral to service [facility] Start: 10-11-2022 Taking patient vital signs [facility] Start: 10-11-2022 Admission procedure [facility] Start: 10-11-2022 [facility] Start: 09-10-2022 Pneumococcal vaccination Pneum ococcal Vaccine (3 - PCV) [facility] Start: 03-24-2022 Influenza vaccination INFLUENZA (#1) [facility] Start: 2022 RSV Vaccine (1 - 1-d ose 60+ series) RSV Vaccine (1 - 1-dose 60+ series) [facility] Start: 07-24-2021 DEPRESSION ASSESSMENT DEPRESSION ASS ESSMENT [facility] Start: 11-24-2020 COVID-19 VACCINE (3 - Pfizer risk series) COVID-19 VACCINE (3 - Pfizer risk series) [facility] Start: 05-26-2019 Lipid 1996 panel - S [place] or Plasma Lipid Screening [facility] Start: 05-26-2019 LIPID SCREEN LIPID SCREEN [facility] Start: 10-16-2017 Urine microalbumin profile [facility] Start: 06-08-2017 FECAL OCCULT BLOOD FECAL OCCULT BLOO D [facility] Start: 09-16-2016 Mammography [facility] Start: 12-09-2011 PNEUMOCOCCAL (2 - PCV) PNEUMOCOCCAL (2 - PCV) [facility] Start: 2007 COLOGUARD (FIT-DNA) COLOGUARD (FIT-D NA) [facility] Start: [address] COLONOGRAPHY [facility] Start: 2007 SIGMOIDOSCOPY SIGMOIDOSCOPY [facility] Start: 1981 SHINGRIX VACCINE (1 of 2) BOWER GRIX VACCINE (1 of 2) [facility] Start: 02-08-1980 ANNUAL PCP TEAM EVENT SERVICES MANAGER MARIO DISEASE VISIT ANNUAL PCP TEAM CHRONIC DISEASE VISIT [facility] Start: 02-08-1980 BP CONTROLLED (<130/80) BP CONTROLLE D (<130/80) [facility] Start: 02-08-1980 HIV SCREENING HIV SCREENING [facility] Alanine aminotransfe rase [Enzymatic activity/volume] in Serum or Plasma [facility] Albumin [Mass/volume ] in Serum or Plasma [facility] Albumin [Moles/volum e] in Serum or Plasma [facility] Albumin/Globulin ratio [facility] Alkaline phosphatase [Enzymatic activity/volume] in Serum or Plasma [facility] Anion gap measurement [facility] Aspartate aminotrans ferase [Enzymatic activity/volume] in Serum or Plasma [facility] Beef IgE Ab [Units/v olume] in Serum [facility] Bilirubin measuremen t, urine [facility] Bilirubin, total measurement [facility] BUN/Creatinine ratio [facility] C reactive protein [Mass/volume] in Serum or Plasma [facility] Calcium [Mass/volume ] in Serum or Plasma [facility] Carbon dioxide, tota l [Moles/volume] in Serum or Plasma [facility] Chloride [Moles/volu me] in Serum or Plasma [facility] Chocolate IgE Ab [Units/volume] in Serum [facility] Codfish IgE Ab [Units/volume] in Serum [facility] [place] IgE Ab [Units/v olume] in Serum [facility] Cow milk IgE Ab [Units/volume] in Serum [facility] Creatinine [Moles/vo lume] in Serum or Plasma [facility] Electrophoresis: [id number] [facility] Electrophoresis: nestor ma globulin [facility] Erythrocyte mean corpuscular volume determination [facility] Erythrocyte sediment ation rate [facility] Gastrin [Mass/volume ] in Serum or Plasma [facility] Gliadin peptide IgA Ab [Units/volume] in Serum [facility] Gliadin peptide IgG Ab [Units/volume] in Serum [facility] Globulin measurement [facility] Glucose [Mass/volume ] in Serum or Plasma [facility] Hematocrit [Volume Fraction] of Blood [facility] Hemoglobin [Mass/vol ume] in Blood [facility] Hemoglobin [Presence ] in Urine [facility] IgA [Mass/volume] in Serum or Plasma [facility] IgG [Mass/volume] in Serum or Plasma [facility] IgG subclass 1 [Mass/volume] in Serum [facility] IgG subclass 2 [Mass/volume] in Serum [facility] IgG subclass 3 [Mass/volume] in Serum [facility] IgG subclass 4 [Mass/volume] in Serum [facility] IgM [Mass/volume] in Serum or Plasma [facility] Leukocytes [#/volume ] in Blood [facility] Magnesium [Mass/volu me] in Serum or Plasma [facility] Mean corpuscular hemoglobin concentration determination [facility] Mean corpuscular hemoglobin determination [facility] Measurement of immunoglobulin A in serum specimen [facility] Measurement of keton es in urine using dipstick [facility] Measurement of renal function [facility] Microscopic urinalysis [facility] Neutrophil count [place] Neutrophil cytoplasm ic Ab.classic [Units/volume] in Serum [facility] Neutrophil percent differential count [facility] Organism count, microscopic method [facility] Ova and parasites identified in Unspecified specimen by Light microscopy [facility] P-ANCA measurement [facility] Patient Education [facility] Work Phone: Patient referral [place] Work Phone: Peanut IgE Ab [Units/volume] in Serum [facility] pH of Urine [facility] Platelets [#/volume] in Blood [facility] Pork IgE Ab [Units/v olume] in Serum [facility] Potassium [Moles/vol ume] in Serum or Plasma [facility] Procedure [facility] Procedure [facility] Protein electrophore sis panel - Serum or Plasma [facility] Red blood cell count [facility] Red cell distributio n width determination [facility] [place] IgE Ab [Units/volume] in Serum [facility] Serum inorganic phos phate measurement [facility] Shrimp IgE Ab [Units/volume] in Serum [facility] Sodium [Moles/volume ] in Serum or Plasma [facility] Soybean IgE Ab [Units/volume] in Serum [facility] Specific gravity of Urine [facility] Tissue transglutamin ase IgA Ab [Units/volume] in Serum [facility] Total protein measurement [facility] Tuna IgE Ab [Units/v olume] in Serum [facility] Urea nitrogen [Mass/volume] in Serum or Plasma [facility] Urine dipstick for glucose [facility] Urine dipstick for leukocyte esterase [facility] Urine dipstick for nitrite [facility] Urine dipstick for protein [facility] Urine examination [facility] Urine microscopy: epithelial cells [facility] Urine microscopy: re d cells [facility] Urobilinogen [Presen ce] in Urine [facility] Wheat IgE Ab [Units/volume] in Serum [facility] White blood cell count [facility] Whole Egg IgE Ab [Units/volume] in Serum [facility] End: 06-17-2023 XR FOOT GENERAL 3V AP/LAT/OBL RIGHT XR FOOT GENERAL 3V AP/LAT/OBL RIGHT Radiology Routine Hallux limitus, acquired, unspecified laterality 1 Occurrences starting 05/18/2022 until 06/17/2023 [facility] Work Phone: Comment on above: 1 Occurrences starti ng 05/18/2022 until 06/17/2023 XR FOOT GENERAL 3V AP/LAT/OBL RIGHT XR FOOT GENERAL 3V AP/LAT/OBL RIGHT Radiology Routine Hallux limitus, acquired, unspecified laterality 05/18/2022 5:14 PM EDT [facility] Work Phone: End: 05-26-2023 XR KNEE POST OP 3V AP/LAT/MERCHANT BILATERAL XR KNEE POST OP 3V AP/LAT/MERCHANT BILATERAL Radiology Routine Pain in both knees, unspecified chronicity 1 Occurrences starting 04/27/2022 until 05/26/2023 [facility] Work Phone: Comment on above: 1 Occurrences starti ng 04/27/2022 until 05/26/2023 [facility] Immunizations Immunization Date Immunization Notes Care Provider Saeid taiwoallison 10-05-2020 COVID-19 original vaccine, age 12+ yr, monovalent (PFIZER-BIONTGeriJoy - PURPLE TOP) Christian Dunne MD Work Phone: [facility] 05-25-2020 influenza virus vacc ine, unspecified formulation [employer]r Mob Work Phone: [facility] 12-08-2010 pneumococcal polysaccharide vaccine, 23 valent Christian Dunne MD Work Phone: [facility] 10-17-2007 tetanus toxoid, redu louie diphtheria toxoid, and acellular pertussis vaccine, adsorbed Christian Dunne MD Work Phone: [facility] Work Phone: Payers Date Payer Category Payer Unknown [id number] 2024 Medicare [id number] 2021 Medicare [id number] 2021 Private Health Insurance [facility] [id number] 2017 Self-pay Private Health [facility] [id number] Unknown [id number] Unknown [id number] Unknown [id number] [id number] 62 Unknown [id number] [id number] 62 Unknown [id number] 2.16.840.1.898801.3.579.2.4 62 Unknown [id number] 2.16.840.1.939112.3.579.2.4 62 Unknown [id number] 2.16.840.1.587307.3.579.2.4 62 Unknown [id number] 2.16.840.1.010739.3.579.2.4 62 Unknown [id number] 2.16.840.1.789003.3.579.2.4 62 Unknown [id number] 2.16.840.1.977142.3.579.2.4 62 Unknown [id number] 2.16.840.1.627761.3.579.2.4 62 Unknown [id number] 2.16.840.1.747222.3.579.2.4 62 Unknown [id number] 2.16.840.1.030564.3.579.2.4 62 Unknown [id number] 2.16.840.1.905145.3.579.2.4 62 Unknown [id number] 2.16.840.1.704515.3.579.2.4 62 Unknown [id number] 2.16.840.1.249021.3.579.2.4 62 Unknown [id number] 2.16.840.1.407409.3.579.2.4 62 Unknown [id number] 2.16.840.1.583631.3.579.2.4 62 Unknown [id number] 2.16.840.1.875278.3.579.2.4 62 Social History Date Type Detail Facility Start: 01-16-2020 End: 07-05-2023 Tobacco smoking status [facility] Unknown if ever smoked [facility] Start: 06-21-2019 Rare [facility] Start: 06-21-2019 None [facility] Start: 06-21-2019 Spouse/ Signif icant Other [facility] Start: 1960 Sex Assigned At Female [facility] Start: 08-15-2018 End: 03-25-2025 Tobacco smoking status MOIS Ex-smoker [facility] End: 07-24-2016 History of tobacco use Current smoker [facility] End: 07-24-2016 History of tobacco use Cigarette Smoker [facility] Start: 08-15-2018 End: 06-28-2020 Cigarettes smoked current (pack per day) - Reported 0.5 [facility] Start: 08-15-2018 Tobacco use and exposure User of smokeless tobacco [facility] Start: 08-31-2021 End: 05-18-2022 Alcohol intake Current drinker of alcohol (finding) [facility] Start: 01-28-2021 History SDOH Alcohol Frequency 3 [facility] Start: 01-28-2021 History SDOH Alcohol Std Drinks 1 [facility] Start: 01-28-2021 History SDOH Social Connections Phone 5 [facility] Start: 01-28-2021 History SDOH Social Connections Get Together 4 [facility] Start: 01-28-2021 History SDOH Physica l Activity DPW 2 [facility] Start: 01-28-2021 Education 12 [facility] Start: 08-07-2017 Tobacco Comment currently on e-cig C [facility] Start: 1960 Sex Assigned At Not on file C [facility] Start: 04-11-2022 End: 05-18-2022 Exposure to SARS-CoV-2 (event) Not sure [facility] Start: 05-30-2022 Tobacco use and exposure Smokeless tobacco non-user [facility] Start: 05-30-2022 Alcohol intake Ex-drinker (finding) [facility] Start: 05-30-2022 Alcohol Comment Socially [facility] Start: 06-28-2020 End: 01-28-2021 Social connection and isolation panel [facility] Do you belong to any clubs or organizations such as episcopalian groups, unions, fraternal or athletic groups, or school groups? Yes [facility] Are you now , , , , never or living with a partner? [facility] How often to you hav e a drink containing alcohol? 2-4 times a month [facility] How many standard drinks containing alcohol do you have on a typical day? 1 or 2 [facility] How often do you hav e 6 or more drinks on 1 occasion? Never [facility] Adult Depression Screening Assessment 0 [facility] Do you feel stress - tense, restless, nervous, or anxious, or unable to sleep at night because your mind is troubled all the time - these days [OSQ] Only a little [facility] (I/We) worried keesha er (my/our) food would run out before (I/we) got money to buy more. Never true [facility] At any time in the p ast 12 months, were you homeless or living in senior living [including now]? No [facility] Start: 10-07-2024 End: 11-01-2024 Sex Female (finding) [facility] NEGATED: Highlighted row [facility] NEGATED: Highlighted row Not [facility] Medical Equipment Procedure Code Equipment Code Equipment Origin al Text Equipment Identifier Dates Total knee replacement Orthopaedic cement, non-antimicrobial [id number] FDA Start: 06-21-2023 Total knee replacement ([id number] Polyethylene patella prosthesis [id number] FDA Start: 06-21-2023 Simplex P Bone Cement Radiopaque Full Dose Individual Pack - [id number] Start: 12-07-2010 Ins Tib 3 9mm Kn X3 Cr Trthln - [id number] Start: 12-07-2010 Ins Tib 3 11mm K n X3 Cs Trthln - [id number] Start: 01-21-2014 Comp Pat 10mm 32 mm Asym Trthln - [id number] Start: 12-07-2010 Baseplt Tib Trth ln 3 Prim - [id number] Start: 12-07-2010 23MM PLATE FDA Start: 10-11-2022 STRIP,BONE CANC [id number] FDA Start: 10-11-2022 STRIP,BONE CANC [id number] FDA Start: 10-11-2022 STRIP,BONE CANC [id number] FDA Start: 10-11-2022 SUTURE,LIGA CLIP MED LT200 [...] F3D ALIF FDA Start: 10-11-2022 INFLUX SPARC [phone] FDA Start: 10-11-2022 PATCH,AMNION 2X3CM FDA Start: 10-11-2022 PATCH,AMNION 2X3CM FDA Start: 10-11-2022 SPACER,10MM INTERLAM FDA Star t: 10-11-2022 23MM PLATE FDA Start: 10-11-2022 STRIP,BONE CANC [id number] FDA Start: 10-11-2022 STRIP,BONE CANC [id number] FDA Start: 10-11-2022 STRIP,BONE CANC [id number] FDA Start: 10-11-2022 SUTURE,LIGA CLIP MED LT200 [...] F3D ALIF FDA Start: 10-11-2022 INFLUX SPARC [phone] FDA Start: 10-11-2022 PATCH,AMNION 2X3CM FDA Start: 10-11-2022 PATCH,AMNION 2X3CM FDA Start: 10-11-2022 SPACER,10MM INTERLAM FDA Star t: 10-11-2022 23MM PLATE FDA Start: 10-11-2022 STRIP,BONE CANC [id number] FDA Start: 10-11-2022 STRIP,BONE CANC [id number] FDA Start: 10-11-2022 STRIP,BONE CANC [id number] FDA Start: 10-11-2022 SUTURE,LIGA CLIP MED LT200 [...] F3D ALIF FDA Start: 10-11-2022 INFLUX SPARC [phone] FDA Start: 10-11-2022 PATCH,AMNION 2X3CM FDA Start: 10-11-2022 PATCH,AMNION 2X3CM FDA Start: 10-11-2022 SPACER,10MM INTERLAM FDA Star t: 10-11-2022 23MM PLATE FDA Start: 10-11-2022 STRIP,BONE CANC [id number] FDA Start: 10-11-2022 STRIP,BONE CANC [id number] FDA Start: 10-11-2022 STRIP,BONE CANC [id number] FDA Start: 10-11-2022 SUTURE,LIGA CLIP MED LT200 [...] F3D ALIF FDA Start: 10-11-2022 INFLUX SPARC [phone] FDA Start: 10-11-2022 PATCH,AMNION 2X3CM FDA Start: 10-11-2022 PATCH,AMNION 2X3CM FDA Start: 10-11-2022 SPACER,10MM INTERLAM FDA Star t: 10-11-2022 23MM PLATE FDA Start: 10-11-2022 STRIP,BONE CANC [id number] FDA Start: 10-11-2022 STRIP,BONE CANC [id number] FDA Start: 10-11-2022 STRIP,BONE CANC [id number] FDA Start: 10-11-2022 SUTURE,LIGA CLIP MED LT200 [...] F3D ALIF FDA Start: 10-11-2022 INFLUX SPARC [phone] FDA Start: 10-11-2022 PATCH,AMNION 2X3CM FDA Start: 10-11-2022 PATCH,AMNION 2X3CM FDA Start: 10-11-2022 SPACER,10MM INTERLAM FDA Star t: 10-11-2022 23MM PLATE FDA Start: 10-11-2022 STRIP,BONE CANC [id number] FDA Start: 10-11-2022 STRIP,BONE CANC [id number] FDA Start: 10-11-2022 STRIP,BONE CANC [id number] FDA Start: 10-11-2022 SUTURE,LIGA CLIP MED LT200 [...] F3D ALIF FDA Start: 10-11-2022 INFLUX SPARC [phone] FDA Start: 10-11-2022 PATCH,AMNION 2X3CM FDA Start: 10-11-2022 PATCH,AMNION 2X3CM FDA Start: 10-11-2022 SPACER,10MM INTERLAM FDA Star t: 10-11-2022 23MM PLATE FDA Start: 10-11-2022 STRIP,BONE CANC [id number] FDA Start: 10-11-2022 STRIP,BONE CANC [id number] FDA Start: 10-11-2022 STRIP,BONE CANC [id number] FDA Start: 10-11-2022 SUTURE,LIGA CLIP MED LT200 [...] F3D ALIF FDA Start: 10-11-2022 INFLUX SPARC [phone] FDA Start: 10-11-2022 PATCH,AMNION 2X3CM FDA Start: 10-11-2022 PATCH,AMNION 2X3CM FDA Start: 10-11-2022 SPACER,10MM INTERLAM FDA Star t: 10-11-2022 23MM PLATE FDA Start: 10-11-2022 STRIP,BONE CANC [id number] FDA Start: 10-11-2022 STRIP,BONE CANC [id number] FDA Start: 10-11-2022 STRIP,BONE CANC [id number] FDA Start: 10-11-2022 SUTURE,LIGA CLIP MED LT200 [...] F3D ALIF FDA Start: 10-11-2022 INFLUX SPARC [phone] FDA Start: 10-11-2022 PATCH,AMNION 2X3CM FDA Start: 10-11-2022 PATCH,AMNION 2X3CM FDA Start: 10-11-2022 SPACER,10MM INTERLAM FDA Star t: 10-11-2022 23MM PLATE FDA Start: 10-11-2022 STRIP,BONE CANC [id number] FDA Start: 10-11-2022 STRIP,BONE CANC [id number] FDA Start: 10-11-2022 STRIP,BONE CANC [id number] FDA Start: 10-11-2022 SUTURE,LIGA CLIP MED LT200 [...] F3D ALIF FDA Start: 10-11-2022 INFLUX SPARC [phone] FDA Start: 10-11-2022 PATCH,AMNION 2X3CM FDA Start: 10-11-2022 PATCH,AMNION 2X3CM FDA Start: 10-11-2022 SPACER,10MM INTERLAM FDA Star t: 10-11-2022 23MM PLATE FDA Start: 10-11-2022 STRIP,BONE CANC [id number] FDA Start: 10-11-2022 STRIP,BONE CANC [id number] FDA Start: 10-11-2022 STRIP,BONE CANC [id number] FDA Start: 10-11-2022 SUTURE,LIGA CLIP MED LT200 [...] F3D ALIF FDA Start: 10-11-2022 INFLUX SPARC [phone] FDA Start: 10-11-2022 PATCH,AMNION 2X3CM FDA Start: 10-11-2022 PATCH,AMNION 2X3CM FDA Start: 10-11-2022 SPACER,10MM INTERLAM FDA Star t: 10-11-2022 23MM PLATE FDA Start: 10-11-2022 STRIP,BONE CANC [id number] FDA Start: 10-11-2022 STRIP,BONE CANC [id number] FDA Start: 10-11-2022 STRIP,BONE CANC [id number] FDA Start: 10-11-2022 SUTURE,LIGA CLIP MED LT200 [...] F3D ALIF FDA Start: 10-11-2022 INFLUX SPARC [phone] FDA Start: 10-11-2022 PATCH,AMNION 2X3CM FDA Start: 10-11-2022 PATCH,AMNION 2X3CM FDA Start: 10-11-2022 SPACER,10MM INTERLAM FDA Star t: 10-11-2022 23MM PLATE FDA Start: 10-11-2022 STRIP,BONE CANC [id number] FDA Start: 10-11-2022 STRIP,BONE CANC [id number] FDA Start: 10-11-2022 STRIP,BONE CANC [id number] FDA Start: 10-11-2022 SUTURE,LIGA CLIP MED LT200 [...] F3D ALIF FDA Start: 10-11-2022 INFLUX SPARC [phone] FDA Start: 10-11-2022 PATCH,AMNION 2X3CM FDA Start: 10-11-2022 PATCH,AMNION 2X3CM FDA Start: 10-11-2022 SPACER,10MM INTERLAM FDA Star t: 10-11-2022 23MM PLATE FDA Start: 10-11-2022 STRIP,BONE CANC [id number] FDA Start: 10-11-2022 STRIP,BONE CANC [id number] FDA Start: 10-11-2022 STRIP,BONE CANC [id number] FDA Start: 10-11-2022 SUTURE,LIGA CLIP MED LT200 [...] F3D ALIF FDA Start: 10-11-2022 INFLUX SPARC [phone] FDA Start: 10-11-2022 PATCH,AMNION 2X3CM FDA Start: 10-11-2022 PATCH,AMNION 2X3CM FDA Start: 10-11-2022 SPACER,10MM INTERLAM FDA Star t: 10-11-2022 23MM PLATE FDA Start: 10-11-2022 STRIP,BONE CANC [id number] FDA Start: 10-11-2022 STRIP,BONE CANC [id number] FDA Start: 10-11-2022 STRIP,BONE CANC [id number] FDA Start: 10-11-2022 SUTURE,LIGA CLIP MED LT200 [...] F3D ALIF FDA Start: 10-11-2022 INFLUX SPARC [phone] FDA Start: 10-11-2022 PATCH,AMNION 2X3CM FDA Start: 10-11-2022 PATCH,AMNION 2X3CM FDA Start: 10-11-2022 SPACER,10MM INTERLAM FDA Star t: 10-11-2022 23MM PLATE FDA Start: 10-11-2022 STRIP,BONE CANC [id number] FDA Start: 10-11-2022 STRIP,BONE CANC [id number] FDA Start: 10-11-2022 STRIP,BONE CANC [id number] FDA Start: 10-11-2022 SUTURE,LIGA CLIP MED LT200 [...] F3D ALIF FDA Start: 10-11-2022 INFLUX SPARC [phone] FDA Start: 10-11-2022 PATCH,AMNION 2X3CM FDA Start: 10-11-2022 PATCH,AMNION 2X3CM FDA Start: 10-11-2022 SPACER,10MM INTERLAM FDA Star t: 10-11-2022 23MM PLATE FDA Start: 10-11-2022 STRIP,BONE CANC [id number] FDA Start: 10-11-2022 STRIP,BONE CANC [id number] FDA Start: 03-21-2023 STRIP,BONE CANC [id number] FDA Start: 10-11-2022 SUTURE,LIGA CLIP MED LT200 [...] F3D ALIF FDA Start: 10-11-2022 INFLUX SPARC [phone] FDA Start: 10-11-2022 PATCH,AMNION 2X3CM FDA Start: 10-11-2022 PATCH,AMNION 2X3CM FDA Start: 10-11-2022 SPACER,10MM INTERLAM FDA Star t: 10-11-2022 23MM PLATE FDA Start: 10-11-2022 STRIP,BONE CANC [id number] FDA Start: 10-11-2022 STRIP,BONE CANC [id number] FDA Start: 10-11-2022 STRIP,BONE CANC [id number] FDA Start: 10-11-2022 SUTURE,LIGA CLIP MED LT200 [...] F3D ALIF FDA Start: 10-11-2022 INFLUX SPARC [phone] FDA Start: 10-11-2022 PATCH,AMNION 2X3CM FDA Start: 10-11-2022 PATCH,AMNION 2X3CM FDA Start: 10-11-2022 SPACER,10MM INTERLAM FDA Star t: 10-11-2022 23MM PLATE FDA Start: 10-11-2022 STRIP,BONE CANC [id number] FDA Start: 10-11-2022 STRIP,BONE CANC [id number] FDA Start: 10-11-2022 STRIP,BONE CANC [id number] FDA Start: 10-11-2022 SUTURE,LIGA CLIP MED LT200 [...] F3D ALIF FDA Start: 10-11-2022 INFLUX SPARC [phone] FDA Start: 10-11-2022 PATCH,AMNION 2X3CM FDA Start: 10-11-2022 PATCH,AMNION 2X3CM FDA Start: 10-11-2022 SPACER,10MM INTERLAM FDA Star t: 10-11-2022 23MM PLATE FDA Start: 10-11-2022 STRIP,BONE CANC [id number] FDA Start: 10-11-2022 STRIP,BONE CANC [id number] FDA Start: 10-11-2022 STRIP,BONE CANC [id number] FDA Start: 10-11-2022 SUTURE,LIGA CLIP MED LT200 [...] F3D ALIF FDA Start: 10-11-2022 INFLUX SPARC [phone] FDA Start: 10-11-2022 PATCH,AMNION 2X3CM FDA Start: 10-11-2022 PATCH,AMNION 2X3CM FDA Start: 10-11-2022 SPACER,10MM INTERLAM FDA Star t: 10-11-2022 23MM PLATE FDA Start: 10-11-2022 STRIP,BONE CANC [id number] FDA Start: 10-11-2022 STRIP,BONE CANC [id number] FDA Start: 10-11-2022 STRIP,BONE CANC [id number] FDA Start: 10-11-2022 SUTURE,LIGA CLIP MED LT200 [...] F3D ALIF FDA Start: 10-11-2022 INFLUX SPARC [phone] FDA Start: 10-11-2022 PATCH,AMNION 2X3CM FDA Start: 10-11-2022 PATCH,AMNION 2X3CM FDA Start: 10-11-2022 SPACER,10MM INTERLAM FDA Star t: 10-11-2022 23MM PLATE FDA Start: 10-11-2022 STRIP,BONE CANC [id number] FDA Start: 10-11-2022 STRIP,BONE CANC [id number] FDA Start: 10-11-2022 STRIP,BONE CANC [id number] FDA Start: 10-11-2022 SUTURE,LIGA CLIP MED LT200 [...] F3D ALIF FDA Start: 10-11-2022 INFLUX SPARC [phone] FDA Start: 10-11-2022 PATCH,AMNION 2X3CM FDA Start: 10-11-2022 PATCH,AMNION 2X3CM FDA Start: 10-11-2022 SPACER,10MM INTERLAM FDA Star t: 10-11-2022 Goals Date Patient Goal Desired Activity /State Functional Status Date Assessment Result Facility 09-26-2023 Functional status Ambulates;Up ad gina [facility] Work Phone: 09-25-2023 Functional status None [facility] Work Phone: 10-15-2022 Functional status Ambulates;Up ad gina [facility] Work Phone: 10-15-2022 Functional status Assistive Shandra fredy Rolling Walker [facility] Work Phone: Mental Status Date Assessment Result Facility 03-10-2025 Cognitive function Level Of Consciousness Drowsy [facility] Work Phone: 03-10-2025 Cognitive function Voice/Name [facility] Work Phone: 10-07-2024 Cognitive function Voice/Name [facility] Work Phone: 11-14-2023 Cognitive function Touch/Shaking [facility] Work Phone: 09-26-2023 Cognitive function Voice/Name [facility] Work Phone: 06-21-2023 Cognitive function Voice/Name [facility] Work Phone: 10-14-2022 Cognitive function Voice/Name [facility] Work Phone: Clinical Notes 06-13-2016 to 03-25-2025 Note Date & Type Note Facility 03-25-2025 History and physi marquez note [facility] 03-25-2025 Discharge summary [facility] 03-25-2025 Radiology Diagnostic study note [facility] Imaging Services [address] [place] [address] Abdomen/Pelvis W IV Cont ONLY MR#: [id number] Acct: [id number] Name: JUDY REAGAN Rep #: [id number] : 1960 F 65 From: Reese Saenz MD PCP: Dr. Hernandez Mosley MD Status: REG E R Study:Abdomen/Pelvis W IV Cont ONLY Date of E xam: 03/25/25 Exam# [id number] Ordering Dr: Nathaniel Echeverria MD PROCEDURE: CT [...] diverticulitis. 2. Diffuse hepatic steatosis. Reading Location: [facility] CC: Dr. Christian Echeverria MD; Dr. Hernandez Mosley MD ~ General Cleaner: Signed [facility] 03-25-2025 Discharge summary Note Date/Time March 25, 2025 6:09pm [facility] Medical Records Department [address] [place] [address] Emergency Department Summary 03/25/25 MR#: [id number] Acct: [id number] Name: JUDY REAGAN Rep #:[id number] : 1960 65 From: Christian Echeverria MD [...] states the pain really has become severe. [facility] Medical History Pain History of Crohn's [...] 80.0 H Lymph % (Auto) 7.6 L Red Willow % (Auto) 11.4 H Eos % (Auto) [...] Clarity Clear Urine pH 7.0 Ur Specific Anderson 1.005 Urine Protein Negative Urine Glucose (UA) Normal Urine Ketones Negative Urine Occult Blood Negative Urine Nitrite Negative Urine Bilirubin Negative Urine Urobilinogen Normal Ur Leukocyte Esterase Negative Radiography Diagnostic Testing: Clinical Impression(s) from Imaging Studies Abdomen/Pelvis CT 03/25/25 16:12 IMPRESSION: 1. Acute uncomplicated sigmoid diverticulitis. 2. Diffuse hepatic steatosis. Reading Location: [facility] Management Discussion w/another healthcare provider: Hospitalist Discharge Plan Dx/Rx/DC Orders Clinical Impression: Diverticulitis of sigmoid colon, Crohn's disease, Intractable abdominal pain Disposition Disposition: [facility] What to do if you have Problems For any increased pain, shortness of breath, bleeding, nausea or vomiting, chestpain, or any unexpected problems, contact your Primary Care Provider. Call [facility] ([phone]) or report to the closest Emergency Room. Call 911 if necessary. 03/25/251808 <Electronically signed by Christian Echeverria MD> Cosigner Signature (if applicable): CC: Dr. Hernandez Mosley MD ~ Signed [facility] Work Phone: 1(926) 258-213808-26-2025 Evaluation note* Diagnosis Onset Date Resolution Status Admit Date Crohn's disease acute March 182024 9:51am [facility] Work Phone: 1(455) 942-253008-26-2025 Evaluation note* Diagnosis Onset Date Resolution Status Admit Date Crohn's disease acute March 182024 9:51am Acute diverticulitis acute Mar 6:40pm Crohn's disease acute March 25, 2025 6:40pm Intractable abdominal pain acute March 25, 2025 6:40pm [facility] Work Phone: 1(199) 529-805008-18-2025 Consult note [facility] Medical Records Department [address] [place] [address] Anesthesia Postop Eval I 03/10/25 0848 MR#: [id number] Acct: [id number] Name: JUDY REAGAN ANN Rep #:[id number] : 1960 65 From: Yeimy Duggan BANQUET COORDINATOR PCP: Dr. Hernandez Mosley MD Status:REG S DC Y Race: C Location: [place] [address] Anesthesia: Postop Eval I Current Vital Signs Temperature: 97.2 F Pulse Rate: 80 Blood Pressure: 140/75 Respiratory Rate: 20 Pulse Ox: 99 Assessment Airway patent: Yes Spontaneous unlabored respirations: Yes nausea: No Vomiting: No Anesthesia Complication: No Fluid Hydration Crystalloid volume administer (ml): 200 Total IV fluid infused: 200 Progress Note Anesthesia document: Postop Eval 1 completed: Yes 03/10/25 0848 a BANQUET COORDINATOR> Date _ Yeimy Duggan BANQUET COORDINATOR Cosigner Signature: Date CC: ~ Signed [facility]08-18-2025 Procedure note [facility] Medical Records Department [address] [place] [address] Operative Report 03/10/25 0849 MR#: [id number] Acct: [id number] Name: JUDY REAGAN ANN Rep #:[id number] : 1960 65 From: Montana Quiñonez MD PCP: Dr. Hernandez Mosley MD Status:REG S DC Location: [place] [address] Operative Report (Standard) Operative Information Date of Procedure: 03/10/25 Pre-Operative Diagnosis: Lumbosacral radiculopathy, lumbosacral spinal stenosis,lumbosacral degenerative disc disease Post-Operative Diagnosis: Lumbosacral radiculopathy, lumbosacral spinal stenosis, lumbosacral degenerative disc disease Surgery/Procedure Performed: Right sided lumbar transforaminal epidural steroid injection L4-5, L5-S1 under fluoroscopic guidance supervisor photostat: No Type of Anesthesia: Local MAC RN [...] Quiñonez MD; Dr. Hernandez Mosley MD~ Signed [facility]08-18-2025 Consult note [facility] Medical Records Department [address] [facility] [place] [address] Pre-Anesthesia Evaluation 03/10/25801 MR#: [id number] Acct: [id number] Name: JUDY REAGAN Rep #:[id number] : 1960 65 From: Pardeep Dsouza CRNA PCP: Dr. Hernandez Mosley MD Status:REG S DC Y Race: C Location: [place] [address] ASA Classification* ASA Classification ASA Classification: 2 [...] L5 S1 Anesthesia History Anesthesia History - tariff clerk: Anesthesia History - tariff clerk Hx Hospitalization No 03/06/25 11:47 Any Problems [...] Any additional information?: No PONV PONV - tariff clerk: PONV - tariff clerk Female Yes 03/06/25 11:47 HX of Motion [...] 03/10/25 07:32 Respiratory Assessment Respiratory Assessment - tariff clerk: Respiratory Tract Infection Hx - tariff clerk Hx Respiratory Tract Infection No 03/06/25 11:47 Any additional information?: No STOP Sleep Apnea STOP Sleep Apnea - tariff clerk: STOP Sleep Apnea - tariff clerk Hx Hypertension Yes: CONTROLLED WITH MED 03/06/25 [...] Tobacco Use History Tobacco Use History - tariff clerk: Tobacco Use History - tariff clerk Tobacco Use Smoking Status Former smoker 03/06/25 11:47 Hx Tobacco Use No 03/06/25 11:47 Years Smoking Packs Smoked per Day Smoking Cessation Date was Yes - quit smoking within 15 03/06/25 11:47 within the last 15 years years Hx Smoking Cessation Date 07/24/17 03/06/25 11:47 Hx Smoking Cessation No 03/06/25 11:47 Counseling Any additional information?: No Hematologic Medial History Hematologic Hx - tariff clerk: Hematologic 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 03/10/25805 y BANQUET COORDINATOR> Date _ Pardeep Dsouza BANQUET COORDINATOR Cosigner Signature: Date CC: ~ Signed [facility]07-01-2025 Consult note Author Yeimy Duggan [facility] Note Date/Time March 10, 2025 9: 22am [facility] Medical Records Department [address] [place] [address] Anesthesia Postop Eval I 03/10/25847 MR#: [id number] Acct: [id number] Name: JUDY REAGAN ANN Rep #:[id number] : 1960 65 From: Yeimy Duggan CRNA PCP: Dr. Hernandez Mosley MD Status:REG S DC Y Race: C Location: [place] [address] Anesthesia: Postop Eval I Current Vital Signs [...] Yes 03/10/25847 <Electronically signed by Yeimy chirinos BANQUET COORDINATOR> Date _ Yeimy Duggan BANQUET COORDINATOR Cosigner Signature: Date CC: ~ Signed [facility] Work Phone: 1(359) 888-261804-07-2025 Evaluation note* Diagnosis Onset Date Resolution Status Admit Date Crohn's disease acute October 8:50am [facility] Work Phone: 1(219) 497-735103-17-2025 Consult note [facility] Medical Records Department [address] [place] [address] Anesthesia Postop Eval II 10/07/24 1226 MR#: [id number] Acct: [id number] Name: JUDY REAGAN Rep #:[id number] : 1960 64 From: Yeimy Duggan PCP: Dr. Hernandez Mosley MD Status:REG S DC Y Race: C Location: [address] Anesthesia Postop Eval I Sum Postop Eval Completion status Anesthesia document: Postop Eval 1 completed: Yes Anesthesia Postop Eval I Summary Anesthesia Postop Eval I Summary: Anesthesia Postop Eval I: Assessment Summary Airway patent Yes 10/07/24 12:09 BANQUET COORDINATOR.[email or web address] Spontaneous unlabored Yes 10/07/24 12:09 BANQUET COORDINATOR.LMIL respirations Mental status Awake 10/07/24 12:09 BANQUET COORDINATOR.LMIL nausea No 10/07/24 12:09 BANQUET COORDINATOR.LMIL Vomiting No 10/07/24 12:09 BANQUET COORDINATOR.LMIL Anesthesia Postop Eval I: Fluid Summary Crystalloid volume administer 10 10/07/24 12:09 BANQUET COORDINATOR.LMIL (ml) Colloids volume administered ( ml) Blood Product volume administered (ml) Total IV fluid infused 10 10/07/24 12:09 BANQUET COORDINATOR.LMIL Anesthesia Postop Eval I: Summary Notes Anesthesia Complication No 10/07/24 12:09 BANQUET COORDINATOR.LMIL Anesthesia Complication Comment: Post-operative progress note Anesthesia: Postop Eval II Evaluation Mental status: Awake Pain Level: 3 nausea: No Vomiting: No 10/07/24 1226 a> Date _ Yeimy Sirca Cosigner Signature: Date CC: ~ Signed [facility]03-17-2025 Consult note [facility] Medical Records Department [address] [place] [address] Anesthesia Postop Eval I 10/07/24 1208 MR#: [id number] Acct: [id number] Name: JUDY REAGAN ANN Rep #:[id number] : 1960 64 From: Montse Nicole BANQUET COORDINATOR PCP: Dr. Hernandez Mosley MD Status:REG S DC Y Race: C Location: [place] [address] Anesthesia: Postop Eval I Current Vital Signs [...] Eval 1 completed: Yes 10/07/24 1209 c BANQUET COORDINATOR> Date _ Montse Nicole BANQUET COORDINATOR Cosigner Signature: Date CC: ~ Signed [facility]03-17-[address] [facility] Medical Records Department [address] [place] [address] Operative Report 10/07/24 1200 MR#: [id number] Acct: [id number] Name: JUDY REAGAN ANN Rep #:[id number] : 1960 64 From: Montana Quiñonez MD PCP: Dr. Hernandez Mosley MD Status:REG S DC Location: [place] [address] Operative Report (Standard) Operative Information Date of Procedure: 10/07/24 Pre-Operative Diagnosis: Lumbosacral radiculopathy, lumbosacral degenerative disc disease, lumbosacral spinal stenosis, postlaminectomy syndrome of the lumbar spine Post-Operative Diagnosis: Lumbosacral radiculopathy, lumbosacral degenerative disc disease, lumbosacral spinal stenosis, postlaminectomy syndrome of the lumbar spine Surgery/Procedure Performed: Diagnostic/therapeutic caudal epidural steroid injection under fluoroscopic guidance. supervisor photostat: No Type of Anesthesia: Local MAC RN [...] Quiñonez MD; Dr. Hernandez Mosley MD~ Signed [facility]03-17-2025 Consult note [facility] Medical Records Department [address] [place] [address] Pre-Anesthesia Evaluation 10/07/24 1141 MR#: [id number] Acct: [id number] Name: JUDY REAGAN Rep #:[id number] : 1960 64 From: Amandeep Madrigal MD PCP: Dr. Hernandez Mosley MD Status:REG S DC Y Race: C Location: [facility] ASA Classification* ASA Classification ASA Classification: 2 [...] steroid inj Anesthesia History Anesthesia History - tariff clerk: Anesthesia History - tariff clerk Hx Hospitalization No 10/04/24 14:57 Any Problems [...] take am of surgery PONV PONV - tariff clerk: PONV - tariff clerk Female Yes 10/04/24 14:57 HX of Motion [...] 10/07/24 11:21 Respiratory Assessment Respiratory Assessment - tariff clerk: Respiratory Tract Infection Hx - tariff clerk Hx Respiratory Tract Infection No 10/04/24 14:57 STOP Sleep Apnea STOP Sleep Apnea - tariff clerk: STOP Sleep Apnea - tariff clerk Hx Hypertension Yes: CONTROLLED WITH MED 10/04/24 [...] Tobacco Use History Tobacco Use History - tariff clerk: Tobacco Use History - tariff clerk Tobacco Use Smoking Status Former smoker 10/04/24 14:57 Hx Tobacco Use No 10/04/24 14:57 Years Smoking Packs Smoked per Day Smoking Cessation Date was Yes - quit smoking within 15 10/04/24 14:57 within the last 15 years years Hx Smoking Cessation Date 07/24/17 10/04/24 14:57 Hx Smoking Cessation No 10/04/24 14:57 Counseling Hematologic Medial History Hematologic Hx - tariff clerk: Hematologic 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 Medical Records Department [address] [place] [address] History & Physical Exam 11/14/23 1154 MR#: [id number] Acct: [id number] Name: JUDY REAGAN ANN Rep #:[id number] : 1960 63 From: Stanley Godwin DO PCP: Dr. Hernandez Mosley MD Status:REG S CO Location: [place] [address] History and Physical Date of Admission: 11/14/23 JUDY REAAGN, is a 63 F who presents to the office today for follow up. [facility] hospitalization 03.20.16-03.23.16 for abdominal pain. EGD 03.20.16?scope could not be advanced through duodenal bulb due to concentric narrowing less likely mass; no obvious ulcerations; duodenitis with duodenal ulcers; gastritis; healing prepyloric ulcer. H.Pylori neg Prior workup: ?CT abd/pel 09.21.23?colonic diverticulosis with diverticulitis *[facility] hospitalization 09.24.23-09.26.23 for management of abdominal pain [...] Affect: normal affect Quality Reporting Tobacco Screening ([facility] 138) Smoking Status: Former smoker Assessment and [...] Gram-negatives and anaerobes. Give Tylenol prn for cmiv-yg-mldyzhvl (level 1-5/10) pain or fever. Give Morphine [...] : -She is going to see a director global strategic publisher sales regarding her psoriatic arthritis. -I will start [...] no clinicalchanges since date of exam. 11/14/23 1154 <Electronically signed by Stanley Godwin DO> Cosigner Signature (if applicable): CC: Dr. Hernandez Mosley MD; Stanley Godwin DO~ Signed [facility] Work Phone: 1(491) 918-745004-23-2024 Procedure [facility] 11-14-2023 Procedure [facility]04-04-2024 Discharge summary Author Harry Mckeon [facility] October 26, 2023 2:17pm Note Date/Time October 26, 2023 2:17 pm [facility] Physical Therapy [facility] [address] [place] [address] [address] [place] [address] / REHABILITATION SERVICES DISCHARGE SUMMARY MR#: [id number] Acct: [id number] Name: JUDY REAGAN Rep #: [id number] : 1960 63 From: Harry Durand Referring Dr.: Dr. Shabbri Birch DO Status: REG RCR Insurance: [facility] S[facility]Y [facility]URANCE Patient Information Patient [...] Dr. Hernandez Mosley MD ~ CLS Signed [facility] Work Phone: 1(300) 935-186503-05-2024 Discharge summary Author Sherif Benson [facility] September 26, 2023 8:43am Note Date/Time September 26, 2023 8:[address] [facility] Medical Records Department [address] [place] [address] Discharge Summary 09/26/23 0839 MR#: [id number] Acct: [id number] Name: JUDY REAGAN ANN Rep #:[id number] : 1960 63 From: Sherif Pena PCP: Dr. Hernandez Mosley MD Status:ADM I N Location: [place] [address] Providers Date of Admission: 09/24/23 Date of [...] Gram-negatives and anaerobes. Give Tylenol prn for nzwu-gh-wjoonmos (level 1-5/10) pain or fever. Give Morphine [...] total of 1 week of antibiotics. Advised dusw-tpv-wnhsxqe probiotics for 2 weeks. Patient requested tramadol [...] (Auto) 41.7 L, Lymph % (Auto) 37.1, Red Willow % (Auto) 15.7 H, Eos % (Auto) [...] (Auto) 41.7 L, Lymph % (Auto) 37.1, Red [place] % (Auto) 15.7 H, Eos % (Auto) [...] PO BID Qty: 0 0RF Rx Instructions: Ygdl-lys-xqnlahf. Probiotic. At least for 2 week. ciprofloxacin [...] Self Care Charges/Coding Visit Charges Inpatient E&M: 43061 Disch Hosp >30min 09/26/23 0843 <Electronically signed by Sherif Benson MD> Cosigner Signature (if applicable): CC: Dr. Sherif Benson MD; Dr. Hernandez Mosley MD~ Signed [facility] Work Phone: 1(347) 804-145503-05-2024 Discharge summary Author Sherif Benson [facility] September 26, 2023 8:39am Note Date/Time September 26, 2023 8:23 am [facility] Medical Records Department [address] [place] [address] Instructions for Home/Discharge Instructions 09/26/23 0729 MR#: [id number] Acct: [id number] Name: JUDY REAGAN ANN Rep #:[id number] : 1960 63 From: Sherif Pena PCP: [...] PO BID Qty: 0 0RF Rx Instructions: Ifsw-ppo-ekjswgr. Probiotic. At least for 2 week. ciprofloxacin [...] DO; Dr. Hernandez Mosley MD ~ Signed [facility] Work Phone: 1(368) 421-279503-04-2024 Progress note Author [facility] September 25, 2023 5:12pm Note Date/Time September 25, 2023 5:12 pm [facility] Medical Records Department [address] [place] [address] Progress Note - Hospitalist 09/25/23 1707 MR#: [id number] Acct: [id number] Name: JUDY REAGAN ANN Rep #:[id number] : 1960 63 From: Sherif Pena PCP: Dr. Hernandez Mosley MD Status:ADM I N Location: [place] [address] Reason for Visit Reason for Visit: Diagnoses [...] % (Auto) 53.3, Lymph % (Auto) 29.0, [place] % (Auto) 14.4 H, Eos % (Auto) [...] Gram-negatives and anaerobes. Give Tylenol prn for txps-xv-rgppappd (level 1-5/10) pain or fever. Give Morphine [...] % (Auto) 53.3, Lymph % (Auto) 29.0, [place] % (Auto) 14.4 H, Eos % (Auto) [...] Intact 79.8 Charges/Coding Visit Charges Inpatient E&M: 08114 Subs Hosp L2 09/25/231711 <Electronically signed by Sherif Benson MD> Cosigner Signature (if applicable): CC: ~ Signed [facility] Work Phone: 1(647) 280-502903-04-2024 Procedure [facility] 09-25-2023 Procedure [facility]03-04-2024 Procedure note [facility]03-04-2024 Procedure [facility] 09-24-2023 Consult note Author Stanley Friend [facility] September 24, 2023 6:07pm Note Date/Time September 24, 2023 5:58 pm [facility] Medical Records Department [address] [place] [address] Consultation - GI 09/24/23 1754 MR#: [id number] Acct: [id number] Name: JUDY REAGAN Rep #:[id number] : 1960 63 From: Stanley Godwin DO PCP: Dr. Hernandez Mosley MD Status:ADM I N Location: [place] [address] HPI Consult Data Date of Consult: 09/24/23 HPI Narrative Reason for Consultation: Diverticulitis HPI Narrative: JUDY REAGAN, is a 63 F who wojwajwl66 F with a past medical history of who essential hypertension, history of tobacco abuse, psoriatic arthritis, pseudogout, s/p partial Left knee replacement, history of iliotibial band syndrome of the LLE followed by Dr. Birch of orthopedic surgery and history ofrecently diagnosed acute diverticulitis diagnosed on CT as an outpatient on September 21, 2023. It was treated with oral Augmentin [facility] pain. Mrs. Reagan [...] and an overnight stay in the hospital. [facility] Medical History (Updated 09/24/23 @ 18:03 [...] % (Auto) 57.1, Lymph % (Auto) 27.2, [place] % (Auto) 12.8 H, Eos % (Auto) [...] % (Auto) 50.3, Lymph % (Auto) 33.2, [place] % (Auto) 14.2 H, Eos % (Auto) [...] IBD SGI. Charges/Coding Visit Charges Inpatient E&M: 53946 Init Hosp L3 09/24/23 3029 <Electronically signed by Stanley Godwin DO> Cosigner Signature (if applicable): CC: Dr. Jorge L May DO; Dr. Hernandez Mosley MD~ Signed [facility] Work Phone: 1(224) 271-970503-03-2024 Progress note Author Jessica Quintero [facility] September 24, 2023 1:30pm Note Date/Time September 24, 2023 7:53 am [facility] Medical Records Department [address] [place] [address] Progress Note - Hospitalist 09/24/23 0748 MR#: [id number] Acct: [id number] Name: JUDY REAGAN Rep #:[id number] : 1960 63 From: Jessica Quintero DO PCP: Dr. Hernandez Mosley MD Status:ADM I N Location: [place] [address] Hospitalist Note Patient is a 63-year-old white female who presented to the emergency department at [facility] on 09/24/2023 with worsening abdominal pain. She [...] Cosigner Signature (if applicable): cc: ~* Signed [facility] Work Phone: 1(162) 977-914503-03-2024 History and physical note Author Jorge L Davalos [facility] September 24, 2023 4:51am Note Date/Time September 24, 2023 3:28 am [facility] Medical Records Department [address] [place] [address] H&P Exam - Hospitalist 09/24/23 0309 MR#: [id number] Acct: [id number] Name: JUDY REAGAN ANN Rep #:[id number] : 1960 63 From: Jorge L Gunn DO PCP: Dr. Hernandez Mosley MD Status:ADM I N Location: [place] [address] HPI - General General Date of Admission: [...] treated with oral Augmentin who presents to [facility] ER complaining of worsening abdominal pain. Mrs. [...] expected to be greater than 48 hours. [facility] Medical History Alcohol use Anxiety [...] % (Auto) 57.1, Lymph % (Auto) 27.2, [place] % (Auto) 12.8 H, Eos % (Auto) [...] Gram-negatives and anaerobes. Give Tylenol prn for bsli-oa-dwburnuz (level 1-5/10) pain or fever. Give Morphine [...] 55 minutes. Charges/Coding Visit Charges Inpatient E&M: 20296 Init Hosp L2 09/24/23 9736 <Electronically signed by Jorge L May DO> Cosigner Signature (if applicable): CC: Dr. Jorge L May DO; Dr. Hernandez Mosley MD~ Signed [facility] Work Phone: 1(318) 336-723903-03-2024 Discharge summary Author Michael Lyman [facility] September 24, 2023 4:34am Note Date/Time September 24, 2023 3:12 am [facility] Medical Records Department [address] [place] [address] Emergency Department Summary 09/24/23 MR#: [id number] Acct: [id number] Name: JUDY REAGAN Rep #:[id number] : 1960 63 From: Michael Lyman DO PCP: Dr. Hernandez Mosley MD Status:ADM I N Location: [place] [address] HPI History of Present Illness Chief Complaint: [...] controlled with outpatient therapy [facility] Medical History Alcohol use Anxiety [...] % (Auto) 57.1 Lymph % (Auto) 27.2 [place] % (Auto) 12.8 H Eos % (Auto) [...] treatment, Hypertension Disposition Disposition: Acute Care Hospital [facility] What to do if you have Problems For any increased pain, shortness of breath, bleeding, nausea or vomiting, chestpain, or any unexpected problems, contact your Primary Care Provider. Call [facility] ([phone]) or report to the closest Emergency Room. Call 911 if necessary. 09/24/23 0434 <Electronically signed by Michael Lyman DO> Cosigner Signature (if applicable): CC: Dr. Hernandez Mosley MD ~ Signed [facility] Work Phone: 1(688) 315-762411-29-2023 Discharge summary Author Shabbir Birch [facility] June 21, 2023 1:47pm Note Date/Time June 21, 2023 1:42pm [facility] Medical Records Department [address] [place] [address] Instructions for Home/Discharge Instructions 06/21/23 1341 MR#: [id number] Acct: [id number] Name: JUDY REAGAN Rep #:[id number] : 1960 63 From: Shabbir Birch DO [...] 06/21/23 1347<Electronically signed by Shabbir Birch DO>Shabbir [facility] CC: Dr. Hernandez Mosley MD ~ Signed [facility] Work Phone: 1(613) 138-479611-29-2023 Procedure [facility] 06-21-2023 History and physical note Author [facility] June 21, 2023 11:27am Note Date/Time June 21, 2023 11:27am [facility] Medical Records Department [address] [place] [address] History & Physical Exam 06/21/23 1126 MR#: [id number] Acct: [id number] Name: JUDY REAGAN Rep #:[id number] : 1960 63 From: Shabbir Birch DO PCP: Dr. Hernandez Mosley MD Status:REG S CO Location: [place] [address] History and Physical Date of Admission: 06/21/23 [facility] [address] [place] [address] [address] [place] [address] OFFICE VISIT Date of Service: 05/31/23 MR#: [id number] Acct: [id number] Name: JUDY REAGAN Rep #: [id number] : 1960 Provider: Dr. Shabbir Birch DO Age/Sex: 63/F Location: [facility] Status: Signed Intake Vital Signs 04/21/2323:12 Height [...] or [address] Sai Casas through [facility]. She states that she had 2 arthroscopic left knee surgeries prior to partial knee. She has xrays in the system. She has pain over the ant/medial side of the left knee. She has tried knee bracing which causes increased knee pain. She has tried icing. She is currently not being treated with the Methotrexate until she establishes with a new director global strategic publisher sales next year. She has a right TKA [...] Birch DO; Dr. Hernandez Mosley MD~ Signed [facility] Work Phone: 1([phone]) 570-646009-29-2023 Discharge summary Author Eder Lamas [facility] April 22, 2023 12:43am Note Date/Time April 21, 2023 11:24pm [facility] Medical Records Department [address] [place] [address] Emergency Department Summary 04/21/23 MR#: [id number] Acct: [id number] Name: JUDY REAGAN Rep #:[id number] : 1960 63 From: Eder Vieira PCP: [...] clinician: N/A This note was generated with [employer] dictation software. It may contain incorrectwords, spelling, [...] your Primary Care Provider. Call [facility] ([phone]) or report to the closest Emergency Room. Call 911 if necessary. 04/22/23 0043 <Electronically signed by Eder Vieira> Cosigner Signature (if applicable): CC: Dr. Hernandez Mosley MD ~ Signed [facility] Work Phone: 1(892) 586-825703-25-[address] Hernández [facility] October 15, 2022 12:37pm Note Date/Time October 15, 2022 12: 37pm [facility] Medical Records Department [address] [place] [address] Progress Note 10/15/22 1234 MR#: [id number] Acct: [id number] Name: JUDY REAGAN Rep #:[id number] : 1960 62 From: Lydia Hernández MD PCP: Dr. Hernandez Mosley MD Status:ADM I N Location: [place] [address] Subjective Subjective Patient seen and examined. She [...] hospitalist standpoint Charges/Coding Visit Charges Inpatient E&M: 11102 Subs Hosp L2 10/15/22 1237 <Electronically signed by Lydia Hernández MD> Lydia Hernández MD Cosigner Signature (if applicable): CC: ~ Signed [facility] Work Phone: 1(317) 974-452003-24-2023 Progress note Author [facility] October 14, 2022 5:21pm Note Date/Time October 14, 2022 2:1 7pm [facility] Medical Records Department [address] [place] [address] Progress Note 10/14/22 1414 MR#: [id number] Acct: [id number] Name: JUDY REAGAN Rep #:[id number] : 1960 62 From: Lydia Hernández MD PCP: Dr. Hernandez Mosley MD Status:ADM I N Location: MS3 VX108-3 Subjective Subjective Patient seen and examined. Still [...] (Auto) 71.5 H, Lymph % (Auto) 15.4 L,[place] % (Auto) 10.3 H, Eos % (Auto) [...] primary team. Charges/Coding Visit Charges Inpatient E&M: 94241 Subs Hosp L2 10/14/22 3399 <Electronically signed by Lydia Hernández MD> Lydia Hernández MD Cosigner Signature (if applicable): CC: ~ Signed [facility] Work Phone: 1(417) 879-694503-23-[address] Damian [facility] October 13, 2022 4:56pm Note Date/Time October 13, 2022 4:5 6pm [facility] Medical Records Department [address] [place] [address] Progress Note - Orthopedic 10/13/22 1654 MR#: [id number] Acct: [id number] Name: JUDY REAGAN Rep #:[id number] : 1960 62 From: Reyes Farmer PCP: Dr. Hernandez Mosley MD Status:ADM I N Location: [place] [address]25-1 Objective Data Objective Data Judy was seen [...] Clarity Clear, Urine pH 7.0, Ur Specific Anderson 1.010, Urine Protein 15 H, Urine Glucose [...] Goetz MD at 6:19 EDT , 10/13/22 1658 <Electronically signed by Reyes Damian DO> Cosigner Signature (if applicable): CC: ~ Signed [facility] Work Phone: 1(854) 269-745303-23-[address] Hernández [facility] October 13, 2022 4:13pm Note Date/Time October 13, 2022 11: 42[facility] Medical Records Department [address] [place] [address] Progress Note 10/13/22 1136 MR#: [id number] Acct: [id number] Name: JUDY REAGAN Rep #:[id number] : 1960 62 From: Lydia Hernández MD PCP: Dr. Hernandez Mosley MD Status:ADM I N Location: [place] [address] Subjective Subjective Patient seen and examined. SHe [...] Clarity Clear, Urine pH 7.0, Ur Specific Anderson 1.010, Urine Protein 15 H, Urine Glucose [...] primary team. Charges/Coding Visit Charges Inpatient E&M: 59921 Subs Hosp L2 10/13/22 1613 <Electronically signed by Lydia Hernández MD> Lydia Hernández MD Cosigner Signature (if applicable): CC: ~ Signed [facility] Work Phone: 1(327) 254-767403-23-[address] Wolfe [facility] October 13, 2022 4:09am Note Date/Time October 13, 2022 4:0 9am [facility] Medical Records Department [address] [place] [address] Progress Note - Hospitalist 10/13/22 0408 MR#: [id number] Acct: [id number] Name: JUDY REAGAN Rep #:[id number] : 1960 62 From: Liza Wolfe MD PCP: Dr. Hernandez Mosley MD Status:ADM I N Location: [place] [address] Hospitalist Note Patient with fever overnight, improved with tylenol administration. COVID obtained, negative. Will request CXR this AM and UCx/UA to further assess. 10/13/22408 <Electronically signed by Liza Wolfe MD> Cosigner Signature (if applicable): CC: ~ Signed [facility] Work Phone: 1(390) 521-386303-22-[address] Hernández [facility] October 12, 2022 4:17pm Note Date/Time October 12, 2022 1:1 3pm [facility] Medical Records Department [address] [place] [address] Progress Note 10/12/22 1306 MR#: [id number] Acct: [id number] Name: JUDY REAGAN Rep #:[id number] : 1960 62 From: Lydia Hernández MD PCP: Dr. Hernandez Mosley MD Status:ADM I N Location: [place] [address] Subjective Subjective Patient seen and examined. She [...] (Auto) 71.2 H, Lymph % (Auto) 15.2 L,[place] % (Auto) 12.8 H, Eos % (Auto) [...] primary team. Charges/Coding Visit Charges Inpatient E&M: 58629 Subs Hosp L2 10/12/22 1617 <Electronically signed by Lydia Hernández MD> Lydia Hernández MD Cosigner Signature (if applicable): CC: ~ Signed [facility] Work Phone: 1(476) 892-986503-21-[address] Keller [facility] October 11, 2022 7:33pm Note Date/Time October 11, 2022 7:2 3pm [facility] Medical Records Department [address] [place] [address] Progress Note - Hospitalist 10/11/221915 MR#: [id number] Acct: [id number] Name: JUDY REAGAN Rep #:[id number] : 1960 62 From: Jesse lobo MD PCP: Dr. Hernandez Mosley MD Status:ADM I N Location: [place] [address] Reason for Visit Reason for Visit: Diagnoses [...] DVT: SCDs Charges/Coding Visit Charges Inpatient E&M: 04909 Subs Hosp L3 10/11/221932 <Electronically signed by Jesse Keller MD> Cosigner Signature (if applicable): CC: ~ Signed [facility] Work Phone: 1(801) 387-798903-21-2023 Procedure [facility] 10-11-2022 Procedure [facility]03-21-2023 Procedure note [facility]03-20-2023 History and physical note Author Dr. Damian [facility] October 10, 2022 3:22pm Note Date/Time October 10, 2022 10: 36am [facility] Medical Records Department [address] [place] [address] History & Physical Exam 10/10/22 1035 MR#: [id number] Acct: [id number] Name: JUDY REAGAN Rep #:[id number] : 1960 62 From: Reyes Farmer PCP: Dr. Hernandez Mosley MD Status:PRE I N Location: [facility] 10/10/22 1522 <Electronically signed by Reyes Damian DO> Cosigner Signature (if applicable): CC: Dr. Reyes Damian DO; Dr. Hernandez Mosley MD~ Signed [facility] Work Phone: [phone]612 History and physical note Author Dr. Damian [facility] October 10, 2022 10:35am Note Date/Time October 10, 2022 10: 35am [facility] Medical Records Department [address] [address] History & Physical Exam 10/10/22 1034 MR#: [id number] Acct: [id number] Name: JUDY REAGAN Rep #:[id number] : 1960 62 From: Reyes Farmer PCP: Dr. Hernandez Mosley MD Status:PRE I N Location: [facility] History and Physical Addendum MR#: [id number] Acct: [id number] Name:? JUDY REAGAN Rep #: [id number] : 1960 ? ? Provider: Dr. Reyes Damian DO Age/Sex:? 62/F ? ? Location: [facility] Status: Signed Intake Vital Signs ? 12/23/2207:21 [...] Damian DO; Dr. Hernandez Mosley MD~ Signed [facility] Work Phone: 1([phone]) 354-194401-30-2023 Miscellaneous Notes* Telephone Encounter - Marzena Elise RN - 08/22/2022 2:30 PM EST Patient left voicemail 08/22/2022 at 0879 Patient contacted at this time Patient requesting Dr. Bower's office to fax medical records to [facility] Medicare Patient's MRI is currently being denied and patient filed an expedited appeal Patient requesting records to be faxed to [phone] Case# [id number] Records faxed at this time per patient's request documented in [facility]Tr[facility]10-[facility]-2022 Miscellaneous Notes* Telephone Encounter - Rosa Greenberg RN - 05/19/2022 11:29 AM EDT Patient notified of surgical date. Follow up scheduled. Surgical confirmation letter sent to patient via Zentric message. * Telephone Encounter - Mavis Russell [...] injectionof R 1st MTPJ on [facility]06[facility]. Patient will need a month follow up post injection scheduled when she returns call. documented in this encounterTrumbull [facility] Hospital10-26-2022 NoteHNO ID: [id number] Author: RT Jayro(R) Service: ? Author Type: [...] BY: RT Jayro(Adilene) May 18, 2022 5:07 [facility]10-26-2022 NoteHNO ID: [id number] Author: Yumiko Welsh Service: ? Author Type: [...] as needed. Currently not taking while on [place] for pain amLODIPine (NORVASC) 5 mg tablet [...] < 5 seconds to (more content not included)...[facility]10-26-2022 NoteHNO ID: [id number] Author: Rosa Greenberg RN Service: ? Author [...] [employer] shoes and states they have also helped.[facility]10-26-2022 History of Present illness Narrative * Jonny [...] 18, 2022 5:07 PM documented in this encounterTrumbull [facility]10-26-2022 History of Present illness Narrative* Yumiko [...] as needed. Currently not taking while on [place] for pain amLODIPine (NORVASC) 5 mg tablet [...] Welsh DPM Podiatry [address] [facility] [address] Dept: [phone] Dept * Rosa Greenberg RN - 05/18/2022 [...] they have also helped. documented in this encounterTrumbull [facility]10-12-2022 Miscellaneous Notes* Telephone Encounter - Zonia [...] pain. Please call patient back. Thank you. Judy#[phone] documented in this encounterTrumbull [facility] Hospital10-10-2022 NoteHNO ID: [id number] Author: Jesus Alberto Harris APRN.ELECTRIC HOIST OPERATOR Service: ? Author Type: Nurse Practitioner [...] which included preparing to see the patient, ojip-cb-lsga patient care, completing clinical documentation, obtaining and/or reviewing separately obtained history, performing a medically appropriate examination, counseling and educating the patient/family/caregiver, ordering medications, tests, or procedures, communicating with other HCPs (not separately reported), independently interpreting results (not separately reported), communicating results to the patient/family/caregiver, and care coordination (not separately reported). Jesus Alberto Harris APRN.[facility] Orthopaedic SurgeryAd[facility]10-10-2022 NoteHNO ID: [id number] Author: KAROLYN Wagner Service: Radiology Author Type: [...] BY: KAROLYN Wagner May 02, 2022 9:28 AMTr[facility] [id number] History of Present illness Narrative* KAROLYN Wagner [...] 02, 2022 9:28 AM documented in this encounterTrumbull [facility] Hospital10-06-2022 Miscellaneous Notes* Telephone Encounter - Kitty Bansal - 04/28/2022 9:37 AM EDT Patient returned call, and is rescheduled. * Telephone Encounter - Kitty Bansal - 04/27/2022 10:15 AM EDT Provider out on 05/05/22, left VM & sent mychart message. Ok to r/s to 05/03/22. Please assist in rescheduling when patient calls back. Thanks documented in this encounterTrumbull [facility] Hospital10-03-2022 Miscellaneous Notes* Telephone Encounter - Yessenia [...] Elias Harris or Philip Castillo in our [place] office to begin evaluation or a work [...] has had a partial replacement done at [facility] several years ago. She is concerned that perhaps the pain is from result of favoring her right knee but would like to verify of no changes. Patient aware likely will need to bee seen separate date/time to discuss left knee and verbalizes understanding but would like to hear from Ortho staff. Please review and advise. documented in this encounterTrumbull Memorial Hospital02-08-2022 NoteHNO ID: [id number] Author: Yumiko Welsh Service: ? Author Type: [...] as needed. Currently not taking while on [place] for pain - amLODIPine (NORVASC) 5 mg [...] performed. ? cc o (more content not included)...[facility] 06-13-2016 History of Past illness Narrative* Problem [...] of this encounter (statuses as of 04/25/2022) [facility] History of Past illness Narrative* [...] of this encounter (statuses as of 04/27/2022) [facility] of [facility] illness Narrative* [...] of this encounter (statuses as of 04/28/2022) [facility] of [facility] illness Narrative* [...] of this encounter (statuses as of 05/03/2022) [facility] of [facility] illness Narrative* [...] of this encounter (statuses as of 05/19/2022) [facility] illness Narrative* [...] of this encounter (statuses as of 05/19/2022) [facility] of [facility] illness Narrative* [...] of this encounter (statuses as of 05/19/2022) [facility] of [facility] illness Narrative* [...] of this encounter (statuses as of 08/22/2022) [facility] of [facility] illness Narrative* [...] of this encounter (statuses as of 05/28/2023) [facility] HospitalConsult note Author Amandeep Madrigal [facility] Note Date/Time October 07, 2024 11: 48[facility] Medical Records Department [address] [place] [address] Pre-Anesthesia Evaluation 10/07/24 1141 MR#: [id number] Acct: [id number] Name: JUDY REAGAN ANN Rep #:[id number] : 1960 64 From: Amandeep Madrigal MD PCP: Dr. Hernandez Mosley MD Status:REG S DC Y Race: C Location: [place] [address]- ASA Classification* ASA Classification ASA Classification: 2 [...] steroid inj Anesthesia History Anesthesia History - tariff clerk: Anesthesia History - tariff clerk Hx Hospitalization No 10/04/24 14:57 Any Problems [...] take am of surgery PONV PONV - tariff clerk: PONV - tariff clerk Female Yes 10/04/24 14:57 HX of Motion [...] 10/07/24 11:21 Respiratory Assessment Respiratory Assessment - tariff clerk: Respiratory Tract Infection Hx - tariff clerk Hx Respiratory Tract Infection No 10/04/24 14:57 STOP Sleep Apnea STOP Sleep Apnea - tariff clerk: STOP Sleep Apnea - tariff clerk Hx Hypertension Yes: CONTROLLED WITH MED 10/04/24 [...] Tobacco Use History Tobacco Use History - tariff clerk: Tobacco Use History - tariff clerk Tobacco Use Smoking Status Former smoker 10/04/24 14:57 Hx Tobacco Use No 10/04/24 14:57 Years Smoking Packs Smoked per Day Smoking Cessation Date was Yes - quit smoking within 15 10/04/24 14:57 within the last 15 years years Hx Smoking Cessation Date 07/24/17 10/04/24 14:57 Hx Smoking Cessation No 10/04/24 14:57 Counseling Hematologic Medial History Hematologic Hx - tariff clerk: Hematologic Medical Hx - optical worker Hx of Blood Transfusion Yes 10/04/24 14:57 [...] confused, unrespo /Reproduction History /Reproductive History - tariff clerk: /Reproductive Hx- tariff clerk Hx Now No 10/04/24 14:57 Gestational Age [...] MD Cosigner Signature: Date CC: ~ Signed [facility] Work Phone: Consult note Author Montse Nicole [facility] Note Date/Time October 07, 2024 12: 09pm [facility] Medical Records Department [address] [place] [address] Anesthesia Postop Eval I 10/07/24 1208 MR#: [id number] Acct: [id number] Name: JUDY REAGAN ANN Rep #:[id number] : 1960 64 From: Montse Nicole CRNA PCP: Dr. Hernandez Mosley MD Status:REG S DC Y Race: C Location: [place] [address] Anesthesia: Postop Eval I Current Vital Signs [...] 10/07/24 1209 <Electronically signed by Montse lindsay BANQUET COORDINATOR> Date _ Montse Nicole BANQUET COORDINATOR Cosigner Signature: Date CC: ~ Signed [facility] Work Phone: Consult note Author Yeimy Duggan [facility] Note Date/Time October 07, 2024 12: 55pm [facility] Medical Records Department [address] [place] [address] Anesthesia Postop Eval II 10/07/24 1226 MR#: [id number] Acct: [id number] Name: JUDY REAGAN ANN Rep #:[id number] : 1960 64 From: Yeimy Duggan PCP: Dr. Hernandez Mosley MD Status:REG S DC Y Race: C Location: [address] Anesthesia Postop Eval I Sum Postop Eval Completion status Anesthesia document: Postop Eval 1 completed: Yes Anesthesia Postop Eval I Summary Anesthesia Postop Eval I Summary: Anesthesia Postop Eval I: Assessment Summary Airway patent Yes 10/07/24 12:09 BANQUET COORDINATOR.LMIL Spontaneous unlabored Yes 10/07/24 12:09 BANQUET COORDINATOR.LMIL respirations Mental status Awake 10/07/24 12:09 BANQUET COORDINATOR.LMIL nausea No 10/07/24 12:09 BANQUET COORDINATOR.LMIL Vomiting No 10/07/24 12:09 BANQUET COORDINATOR.LMIL Anesthesia Postop Eval I: Fluid Summary Crystalloid volume administer 10 10/07/24 12:09 BANQUET COORDINATOR.LMIL (ml) Colloids volume administered ( ml) Blood Product volume administered (ml) Total IV fluid infused 10 10/07/24 12:09 BANQUET COORDINATOR.LMIL Anesthesia Postop Eval I: Summary Notes Anesthesia Complication No 10/07/24 12:09 BANQUET COORDINATOR.LMIL Anesthesia Complication Comment: Post-operative progress note Anesthesia: Postop Eval II Evaluation Mental status: Awake Pain Level: 3 nausea: No Vomiting: No 10/07/24 1226 <Electronically signed by Yeimy chirinos> Date _ Yeimy Arzate Signature: Date CC: ~ Signed [facility] Work Phone: Consult note Author Pardeep Dsouza [facility] Note Date/Time March 10, 2025 8: 06am [facility] Medical Records Department [address] [place] [address] Pre-Anesthesia Evaluation 03/10/25 0802 MR#: [id number] Acct: [id number] Name: JUDY REAGAN Rep #:[id number] : 1960 65 From: Pardeep Dsouza CRNA PCP: Dr. Hernandez Mosley MD Status:REG S DC Y Race: C Location: [place] [address] ASA Classification* ASA Classification ASA Classification: 2 [...] L5 S1 Anesthesia History Anesthesia History - tariff clerk: Anesthesia History - tariff clerk Hx Hospitalization No 03/06/25 11:47 Any Problems [...] Any additional information?: No PONV PONV - tariff clerk: PONV - tariff clerk Female Yes 03/06/25 11:47 HX of Motion [...] 03/10/25 07:32 Respiratory Assessment Respiratory Assessment - tariff clerk: Respiratory Tract Infection Hx - tariff clerk Hx Respiratory Tract Infection No 03/06/25 11:47 Any additional information?: No STOP Sleep Apnea STOP Sleep Apnea - tariff clerk: STOP Sleep Apnea - tariff clerk Hx Hypertension Yes: CONTROLLED WITH MED 03/06/25 [...] Tobacco Use History Tobacco Use History - tariff clerk: Tobacco Use History - tariff clerk Tobacco Use Smoking Status Former smoker 03/06/25 11:47 Hx Tobacco Use No 03/06/25 11:47 Years Smoking Packs Smoked per Day Smoking Cessation Date was Yes - quit smoking within 15 03/06/25 11:47 within the last 15 years years Hx Smoking Cessation Date 07/24/17 03/06/25 11:47 Hx Smoking Cessation No 03/06/25 11:47 Counseling Any additional information?: No Hematologic Medial History Hematologic Hx - tariff clerk: Hematologic Medical Hx - optical worker Hx of Blood Transfusion Yes 03/06/25 11:47 [...] information?: No /Reproduction History /Reproductive History - tariff clerk: /Reproductive Hx- tariff clerk Hx Now Gestational Age (in weeks): EDC: [...] Pardeep Lylesigner Signature: Date CC: ~ Signed [facility] Work Phone: Discharge summary Author Dr. Damian [facility] October 15, 2022 2:00pm Note Date/Time October 15, 2022 2:0 0pm [facility] Medical Records Department [address] [place] [address] Instructions for Home/Discharge Instructions 10/15/22 1358 MR#: [id number] Acct: [id number] Name: JUDY REAGAN Rep #:[id number] : 1960 62 From: Reyes Farmer PCP: Dr. Hernandez Mosely MD Status:ADM I N Discharge Instructions Activity [...] MD; Dr. Hernandez Mosley MD ~ Signed [facility] Work Phone: Discharge summary Author Dr. Damian [facility] October 15, 2022 2:03pm Note Date/Time October 15, 2022 2:0 3pm [facility] Medical Records Department [address] [place] [address] Discharge Summary 10/15/22 1400 MR#: [id number] Acct: [id number] Name: JUDY REAGAN Rep #:[id number] : 1960 62 From: Reyes Farmer PCP: Dr. Hernandez Mosley MD Status:ADM I N Location: [facility] [id number] Providers Date of Admission: 10/11/22 Primary Care [...] Damian DO; Dr. Hernandez Mosley MD~ Signed [facility] Work Phone: Discharge summary Author [facility] September 24, 2023 4:34am Note Date/Time September 24, 2023 3:12 am [facility] Medical Records Department [address] [place] [address] Emergency Department Summary 09/24/23 MR#: [id number] Acct: [id number] Name: JUDY REAGAN ANN Rep #:[id number] : 1960 63 From: Michael Lyman DO PCP: Dr. Hernandez Mosley MD Status:ADM I N Location: [place] [address] HPI History of Present Illness Chief Complaint: [...] controlled with outpatient therapy shepresents for evaluation [facility] Medical History Alcohol use Anxiety Back [...] % (Auto) 57.1 Lymph % (Auto) 27.2 Red Willow % (Auto) 12.8 H Eos % (Auto) [...] treatment, Hypertension Disposition Disposition: Acute Care Hospital [facility] What to do if you have Problems For any increased pain, shortness of breath, bleeding, nausea or vomiting, chestpain, or any unexpected problems, contact your Primary Care Provider. Call [facility] ([phone]) or report to the closest Emergency Room. Call 911 if necessary. 09/24/23 4891 <Electronically signed by Michael Lyman DO> Cosigner Signature (if applicable): CC: Dr. Hernandez Mosley MD ~ Signed [facility] Work Phone: Evaluation noteNo assessment information available [facility] Work Phone: Evaluation note* Diagnosis Pain in both knees, unspecified chronicity- [facility] Pain in both knees, unspecified chronicity [facility] Diagnosis Hallux limitus, acquired, unspecified laterality- Primary documented in [facility] encounter [facility]* Diagnosis Acquired hallux limitus of right foot- Primary Acquired hallux limitus of right foot documented in this encounter [facility]* Diagnosis Onset Date Resolution Status DDD (degenerative disc disease), lumbar acute Degeneration of L4-L5 intervertebral disc acute [facility] Work Phone: Evaluation note* Diagnosis Onset Date Resolution Status DDD (degenerative disc disease), lumbar acute Degeneration of L4-L5 intervertebral disc acute Degeneration of L4-L5 intervertebral disc acute [facility] Work Phone: Evaluation note* Diagnosis Onset Date Resolution Status DDD (degenerative disc disease), lumbar acute Degeneration of L4-L5 intervertebral disc acute Degeneration of L4-L5 intervertebral disc acute DDD (degenerative disc disease), lumbar acute Essential hypertension chron ic [facility] Work Phone: Evaluation note* Diagnosis Onset Date Resolution Status S/P lumbar fusion acute S/P lumbar fusion acute Trochanteric bursitis of left hip acute [facility] Work Phone: Evaluation note* Diagnosis Hallux limitus, acquired, unspecified laterality [facility] Diagnosis Onset Date Resolution Status S/P lumbar fusion acute Trochanteric bursitis of left hip acute S/P lumbar fusion acute Status post left partial knee replacement acute Trochanteric bursitis of left hip acute History of arthroplasty of knee acute Internal derangement of knee joint acute [facility] Work Phone: Evaluation note* Diagnosis Onset Date Resolution Status History of arthroplasty of knee acute Internal derangement of knee joint acute Pseudogout acute Orthopedic aftercare noneact adeel Iliotibial band syndrome affecting left lower leg acute Orthopedic aftercare acute Pseudogout acute Iliotibial band syndrome affecting left lower leg acute Orthopedic aftercare acute Pseudogout acute [facility] Work Phone: Evaluation note* Diagnosis Onset Date Resolution Status History of arthroplasty of knee acute Internal derangement of knee joint acute Pseudogout acute Orthopedic aftercare noneact adeel Iliotibial band syndrome affecting left lower leg acute Orthopedic aftercare acute Pseudogout acute Iliotibial band syndrome affecting left lower leg acute Orthopedic aftercare acute Pseudogout acute Acute diverticulitis acute Failure of outpatient treatment acute Hypertension [facility] Work Phone: Evaluation note* Diagnosis Onset Date [...] outpatient treatment acute GI bleed acute Hypertension [facility] Work Phone: Evaluation note* Diagnosis Onset Date Resolution Status Pseudogout acute Orthopedic aftercare noneact adeel Iliotibial band syndrome affecting left lower leg acute Orthopedic aftercare acute Pseudogout acute Iliotibial band syndrome affecting left lower leg acute Orthopedic aftercare acute Pseudogout acute Acute diverticulitis acute Failure of outpatient treatment acute Hypertension chronic GI bleed resolved Acute diverticulitis acute Crohn's disease acute [facility] Work Phone: Evaluation note* Diagnosis Onset Date [...] leg acute Pseudogout acute Psoriatic arthritis chronic [facility] Work Phone: Evaluation note* Diagnosis Onset Date Resolution Status S/P lumbar fusion acute Trochanteric bursitis of left hip acute S/P lumbar fusion acute Status post left partial knee replacement acute Trochanteric bursitis of left hip acute History of arthroplasty of knee acute Internal derangement of knee joint acute Pseudogout acute Orthopedic aftercare noneact adeel [facility] Work Phone: Evaluation note* Diagnosis Onset Date Resolution Status Admit Date Crohn's disease acute March 182024 9:51am [facility] Work Phone: History and physical note Author Jennifer Dunne [facility] Note Date/Time March 25, 2025 6:47pm [facility] Medical Records Department [address] [place] [address] H&P Exam - Hospitalist 03/25/25 1840 MR#: [id number] Acct: [id number] Name: JUDY REAGAN ANN Rep #:[id number] : 1960 65 From: Jennifer Dunne MD PCP: Dr. Hernandez Mosley MD Status:ADM I N Location: [facility] [id number] HPI - General General Date of Admission: 03/25/25 Date of Service: 03/25/25 Chief Complaint: Lower abdominal pain HPI Narrative JUDY REAGAN, is a 65-year-old female with a history of GERD, restless leg syndrome,depression, Crohn's disease presented [facility] ED 03/25/2025 with diffuse lower abdominal pain [...] around to her back, denies epigastric pain [facility] Medical History Pain History of [...] 80.0 H, Lymph % (Auto) 7.6 L, Red Willow % (Auto) 11.4 H, Eos % (Auto) [...] Albumin 4.5, Globulin 2.9, Albumin/Globulin Ratio 1.5, [id number] 03/25/25 16:24: Urine Color Yellow, Urine Clarity Clear, Urine pH 7.0, Ur Specific Anderson 1.005, Urine Protein Negative, Urine Glucose (UA) Normal, UrineKetones Negative, Urine Occult Blood Negative, Urine Nitrite Negative, Urine Bilirubin Negative, Urine Urobilinogen Normal, Ur Leukocyte Esterase Negative Imaging Radiology Impression Abdomen/Pelvis CT 03/25/25 16:12 IMPRESSION: 1. Acute uncomplicated sigmoid diverticulitis. 2. Diffuse hepatic steatosis. Reading Location: [facility] Assessment & Plan Assessment/Plan (1) Acute [...] Dunne MD Charges/Coding Visit Charges Inpatient E&M: 31064 Init Hosp L1 03/25/25 6146 <Electronically signed by Jennifer Dunne MD> Cosigner Signature (if applicable): CC: Dr. Jennifer Dunne MD; Dr. Hernandez Mosley MD~ Signed [facility] Work Phone: Hospital Discharge instructions Additional Instructions Left shoulder and left hip x-ray negative. Continue your tramadol at home. Muscle relaxer as needed. Follow-up with your doctor.[facility] Work Phone: Reason for referral (narrative)* Diagnostic Procedure Only (Routine) - Pending Review Specialty Diagnoses / Procedures Referred By Contac t Referred To Contact XR IMAGING Diagnoses Pain in both knees, unspecified chronicity Procedures XR KNEE POST OP 3V AP/LAT/MERCHANT BILATERAL RADIOLOGIC EXAMINATION KNEE 3 VIEWS Jesus Alberto Harris APRN.CNP [address] [place] [address] Xr Imaging Referral ID Status Reason Start Date Expiration Date Visits Requested Visits Authorized [id number] Pending Review Auto-Generat ed Referral 04/27/2022 05/26/2023 1 1 [facility] for referral (narrative)* Diagnostic Procedure Only (Routine) - Closed Specialty Diagnoses / Procedures Referred By Contac t Referred To Contact XR IMAGING Diagnoses Pain in both knees, unspecified chronicity Procedures XR KNEE POST OP 3V AP/LAT/MERCHANT BILATERAL RADIOLOGIC EXAMINATION KNEE 3 VIEWS Jesus Alberto Harris APRN.CNP [address] [place] [address] Xr Imaging Referral ID Status Reason Start Date Expiration Date V isits Requested Visits Authorized [id number] Closed Auto-Generate d Referral 04/27/2022 05/26/2023 1 1 [facility] for referral (narrative)* Diagnostic Procedure Only (Routine) - Closed Specialty Diagnoses / Procedures Referred By Contac t Referred To Contact XR IMAGING Diagnoses Hallux limitus, acquired, unspecified laterality Procedures XR FOOT GENERAL 3V AP/LAT/OBL RIGHT RADEX FOOT COMPLETE MINIMUM [address] [place] [place] [address] Xr Imaging Referral ID Status Reason Start Date Expiration Date V isits Requested Visits Authorized [id number] Closed Auto-Generate d Referral 05/18/2022 06/17/2023 1 1 [facility] for referral (narrative)* Diagnostic Procedure Only (Routine) - Closed Specialty Diagnoses / Procedures Referred By Contac t Referred To Contact XR IMAGING Diagnoses Hallux limitus, acquired, unspecified laterality Procedures XR FOOT GENERAL 3V AP/LAT/OBL RIGHT RADEX FOOT COMPLETE MINIMUM 3 VIEWS Yumiko Welsh [address] [place] [address] [place] [address] Referral ID Status Reason Start Date Expiration Date V isits Requested Visits Authorized [id number] Closed Auto-Generate d Referral 05/18/2022 06/17/2023 1 1 [facility] for referral (narrative)No reason for referral [facility] Work Phone: [facility] for visit Narrative* Diagnostic Procedure Only (Routine) - Closed Specialty Diagnoses / Procedures Referred By Contac t Referred To Contact XR IMAGING Diagnoses Pain in both knees, unspecified chronicity Procedures XR KNEE POST OP 3V AP/LAT/MERCHANT BILATERAL RADIOLOGIC EXAMINATION KNEE 3 VIEWS Jesus Alberto Harris APRN.[facility] [address] [address] Xr Imaging Referral ID Status Reason Start Date Expiration Date V isits Requested Visits Authorized [id number] Closed Auto-Generate d Referral 04/27/2022 05/26/2023 1 1 [facility] for visit Narrative* Diagnostic Procedure Only (Routine) - Closed Specialty Diagnoses / Procedures Referred By Contac t Referred To Contact XR IMAGING Diagnoses Hallux limitus, acquired, unspecified laterality Procedures XR FOOT GENERAL 3V AP/LAT/OBL RIGHT RADEX FOOT COMPLETE MINIMUM 3 VIEWS Yumiko Welsh [address] [place] [address] [place] [id number] Referral ID Status Reason Start Date Expiration Date V isits Requested Visits Authorized [id number] Closed Auto-Generate d Referral 05/18/2022 06/17/2023 1 1 [facility] Summary Purpose Family History Relationship Condition Age at Onset Recorded Date/T jae Not Specified Coronary artery disease Unknown Cardiac disease Unknown Malignant neoplasm of breast Unknown Hypertension Unknown Advance Directives Advance Directive Response Recorded Date/ Time Advance Directives No May 11:51pm Living Will Yes January 16, 2020 10:39pm Power of Wheel Setter Yes January 15 10:39pm Advance Directive Response Recorded Date/ Time Advance Directives No May 11:51pm Living Will Yes December 22, 2021 8 :51am Power of Wheel Setter Yes December 22, 2021 8:51am Advance Directive Response Recorded Date/ Time Advance Directives No May 11:51pm Living Will Yes December 22, 2021 8 :51am Power of Wheel Setter Yes December 22, 2021 8:51am Name of Medical Power of Wheel Setter DASIA REAGAN December 22, 2021 8:51am Documents on File Type Date Recorded Patient Clothing Man Expl anation Advance Directive(s) 01/23/2014 11:01 AM Documents on File Type Date Recorded Patient Clothing Man Expl anation Advance Directive(s) 01/23/2014 11:01 AM Advance Directive Response Recorded Date/ Time Advance Directives No May 10:51pm Living Will Yes August 09 11:08am Power of Wheel Setter Yes August 09, 2022 11:08am Advance Directive Response Recorded Date/ Time Name of Medical Power of Wheel Setter DASIA August 09, 2022 11:08am Advance Directives No May 10:51pm Living Will Yes August 09 11:08am Power of Wheel Setter Yes August 09, 2022 11:08am Advance Directive Response Recorded Date/ Time Name of Medical Power of Wheel Setter DASIA August 09, 2022 11:08am Advance Directives No May 10:51pm Living Will Yes September 27, 2022 1:56pm Power of Wheel Setter Yes September 27 1:56pm Advance Directive Response Recorded Date/ Time Name of Medical Power of Wheel Setter DASIA August 09, 2022 12:08pm Name of Medical Power of Wheel Setter Dasia Bossofya October 11, 2022 5:54pm Advance Directives No May 11:51pm Living Will Yes October 11, 2022 5:54pm Power of Wheel Setter Yes October 11 5:54pm Advance Directive Response Recorded Date/ Time Name of Medical Power of Wheel Setter Dasia April 21, 2023 11:18pm Advance Directives No May 11:51pm Living Will Yes April 21, 2023 11:18pm Power of Wheel Setter Yes March 11:18pm Advance Directive Response Recorded Date/ Time Name of Medical Power of Wheel Setter Dasia April 21, 2023 10:18pm Name of Medical Power of Wheel Setter SPOUSE June 16, 2023 1:12pm Advance Directives No May 10:51pm Living Will Yes June 16, 023 1:12pm Power of Wheel Setter Yes June 16, 2023 1:12pm Advance Directive Response Recorded Date/ Time Name of Medical Power of Wheel Setter SPOUSE June 16, 2023 1:12pm Advance Directives No May 10:51pm Living Will Yes June 16, 023 1:12pm Power of Wheel Setter Yes June 16, 2023 1:12pm Advance Directive Response Recorded Date/ Time Name of Medical Power of Wheel Setter SPOUSE June 16, 2023 1:12pm Advance Directives No May 10:51pm Living Will Yes September 24, 2023 12:53am Power of Wheel Setter No September 23 12:53am Advance Directive Response Recorded Date/ Time Name of Medical Power of Wheel Setter SPOUSE June 16, 2023 1:12pm Name of Medical Power of Wheel Setter Dasia Boss September 24, 2023 4:34am Advance Directives No May 10:51pm Living Will Yes September 24, 2023 4:34am Power of Wheel Setter Yes September 23 4:34am Advance Directive Response Recorded Date/ Time Name of Medical Power of Wheel Setter Dasia Reagan September 24, 2023 5:34am Advance Directives No May 11:51pm Living Will Yes September 24, 2023 5:34am Power of Wheel Setter Yes September 23 5:34am Advance Directive Response Recorded Date/ Time Name of Medical Power of Wheel Setter SPOUSE November 09, 2023 3:23pm Advance Directives No May 11:51pm Living Will Yes November 09, 2023 3:23pm Power of Wheel Setter Yes November 08 3:23pm Name of Medical Power of Wheel Setter Dasia Reagan September 24, 2023 5:34am Advance Directive Response Recorded Date/ Time Living Will No October 04, 2024 2:57pm Power of Wheel Setter No October 04 2:57pm Advance Directives No November 24, 2023 2:04pm Advance Directive Response Recorded Date/ Time Living Will No October 04, 2024 2:57pm Do you have a Healthcare Power of Wheel Setter? No October 04, 2024 2:57pm Advance Directives No November 24, 2023 2:04pm Advance Directive Response Recorded Date/ Time Do you have a Healthcare Power of Wheel Setter? Yes March 06, 2025 11:47am Advance Directives No November 24, 2023 2:04pm Advance Directive Response Recorded Date/ Time Do you have a Healthcare Power of Wheel Setter? Yes March 06, 2025 11:47am Do you have a Healthcare Power of Wheel Setter? Yes March 25, 2025 3:12pm Advance Directives [...] section and content) DATE CREATED AUTHOR 01/16/2018 [facility] DATE CREATED AUTHOR AUTHOR'S ORGANIZ ATION 01/16/2018 [facility] DATE CREATED AUTHOR AUTHOR'S ORGANIZ ATION 01/19/2018 [facility] DATE CREATED AUTHOR AUTHOR'S ORGANIZ ATION 07/11/2019 [facility] DATE CREATED AUTHOR AUTHOR'S ORGANIZ ATION 10/06/2021 [facility] DATE CREATED AUTHOR AUTHOR'S ORGANIZ ATION 06/06/2022 [facility] DATE CREATED AUTHOR AUTHOR'S ORGANIZ ATION 08/23/2022 [facility] DATE CREATED AUTHOR AUTHOR'S ORGANIZ ATION 03/25/2025 [facility] Comments (unrecognize d section and content) In the event this informatio n is protected by the Federal Confidentiality of Alcohol and Drug Abuse Patient Records regulations: The Federal rules restrict any use of the information to criminally investigate or prosecute any alcohol or drug abuse patient.[facility] the event this information is protected by the Federal Confidentiality of Alcohol and Drug Abuse Patient Records regulations: The Federal rules restrict any use of the information to criminally investigate or prosecute any alcohol or drug abuse patient.[facility] the event this information is protected by the Federal Confidentiality of Alcohol and Drug Abuse Patient Records regulations: The Federal rules restrict any use of the information to criminally investigate or prosecute any alcohol or drug abuse patient.[facility] the event this information is protected by the Federal Confidentiality of Alcohol and Drug Abuse Patient Records regulations: The Federal rules restrict any use of the information to criminally investigate or prosecute any alcohol or drug abuse patient.[facility] the event this information is protected by the Federal Confidentiality of Alcohol and Drug Abuse Patient Records regulations: The Federal rules restrict any use of the information to criminally investigate or prosecute any alcohol or drug abuse patient.[facility] the event this information is protected by the Federal Confidentiality of Alcohol and Drug Abuse Patient Records regulations: The Federal rules restrict any use of the information to criminally investigate or prosecute any alcohol or drug abuse patient.[facility] Hospital[facility] the event this information is protected by the Federal Confidentiality of Alcohol and Drug Abuse Patient Records regulations: The Federal rules restrict any use of the information to criminally investigate or prosecute any alcohol or drug abuse patient.[facility] Hospital[facility] the event this information is protected by the Federal Confidentiality of Alcohol and Drug Abuse Patient Records regulations: The Federal rules restrict any use of the information to criminally investigate or prosecute any alcohol or drug abuse patient.[facility] Hospital[facility] the event this information is protected by the Federal Confidentiality of Alcohol and Drug Abuse Patient Records regulations: The Federal rules restrict any use of the information to criminally investigate or prosecute any alcohol or drug abuse patient.[facility] Reason for Visit (unrecogniz ed section and content) Reason Comments Patient Question Reason Comments appointment conflict Reason Comments Established Patient Pain Swelling Specialty Diagnoses / Procedures Referred By Rigo t Referred To Contact [facility] Diagnoses 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, initial encounter (HCC) Pain due to total left knee replacement, initial encounter ([facility]) Procedures CONSULT TO PHYSICAL THERAPY PHYSICAL THERAPY EVALUATION HIGH COMPLEX 45 MINS Jesus Alberto Harris APRN.[facility] [address] [address] [facility] [address] [place] [id number] Referral ID Status Reason Start Date Expiration Date Visits Requested Visits Authorized [id number] Authorized Auto-Generat ed Referral 2 07/23/2022 99 99 Reason Comments Patient Question Right Big toe Reason Comments Schedule Surgery Care Teams (unrecognized sec tion and content) [employer] Relationship Specialty Start Date End Date Kris Bernardo MD [address] [place] [id number] PCP - General Family Medicine 07/27/20 [employer] Relationship Specialty Start Date End Date Kris Bernardo MD [address] [place] [address] PCP - General Family Medicine 07/27/20 [employer] Relationship Specialty Start Date End Date Kris Bernardo MD [address] [place] [address] PCP - General Family Medicine 07/27/20 [employer] Relationship Specialty Start Date End Date Kris Bernardo MD [address] [place] [address] PCP - General Family Medicine 07/27/20 [employer] Relationship Specialty Start Date End Date Kris Bernardo MD [address] [place] [address] PCP - General Family Medicine 07/27/20 [employer] Relationship Specialty Start Date End Date Kris Bernardo MD [address] [place] [address] PCP - General Family Medicine 07/27/20 [employer] Relationship Specialty Start Date End Date Kris Bernardo MD [address] [place] [address] PCP - General Family Medicine 07/27/20 Team Status: Active Member Role Status Dates [facility] Family Provider Active Dr. Hernandez Mosley MD [...] MD Primary Care Provider Active Samantha Grider RN MED SURG, RN MED SURG-C Attending Provider, Referring Pr ovider Active Team Status: Inactive Member Role Status Dates Dr. Hernandez Mosley MD Primary Care Provider, Attending Provider Active [employer] Relationship Specialty Start Date End Date Hernandez Mosley Chi [address] [place] [address] PCP - General Gerontology 05/23/22 Team Status: [...] Dr. Eder Lamas DO Emergency Provider Active [employer] Relationship Specialty Start Date End Date Kris Bernardo MD [address] [place] [id number] PCP - General Family Medicine 07/27/20 05/22/22 [...] BE BASED ON THE PRIMARY CLINICAL RECORDS. [facility] [facility]. provides no warranty or guarantee of the accuracy or completeness of information in this document.
[2025-03-26 04:07] VITALS: BP 133/83; PULSE 74; RESP 16; TEMP 36.8; O2SAT 97
[2025-03-26] MEDS: 0.9% Normal Saline (1000mL) 1,000 ML 100 ML IV (06:09)
[2025-03-26] MEDS: Piperacil/Tazobactam 3.375 GM in 0.9% Normal Saline (50mL MB+) 50 ML IV ×3 (06:09→21:56)
[2025-03-26 06:11] VITALS: BP 138/72; PULSE 72; RESP 16; TEMP 37; O2SAT 98
[2025-03-26 06:20] LABS: Hematocrit 36.8 % (37-47); Hemoglobin 12.2 g/dL (12.0-15.0); Immature Granulocytes Count 0.060 X10^3/uL (0.0-0.0); Mean Corp Hgb Conc 33.2 g/dL (32-36); Mean Corpuscular Volume 93.9 fL (81-99); Mean Platelet Vol. 9.9 fl (6.2-12.0); NRBC Flagged by Analyzer 0 % (0-5); POSITIVE DIFFERENTIAL YES; Platelet Count 281 K/mm3 (150-450); RBC Distribution Width CV 12.8 % (11.6-14.6); RBC Distribution Width SD 44.0 fl (35.1-43.9); Red Blood Count 3.92 M/mm3 (4.2-5.4); White Blood Count 12.6 K/mm3 (4.4-11.0)
[2025-03-26 06:25] LABS: Differential Indicated SCAN CRITERIA MET
[2025-03-26 06:54] LABS: Differential Comment SCANNED
--- NOTE | 2025-03-26 07:20 | PCM.PN.HOSP ---
Reason for Visit Chief Complaint: Lower abdominal pain Subjective Subjective Patient is a 65-year-old lady who was admitted with abdominal pain CT demonstrated acute uncomplicated sigmoid diverticulitis admitted to regular nursing floor for further management Objective Data Objective Data Vital Signs: Vital Signs Temp Pulse Resp BP Pulse Ox O2 Del Method 98.6 F 72 16 138/72 H 98 Room Air 03/26/25 06:11 03/26/25 06:11 03/26/25 06:11 03/26/25 06:11 03/26/25 06:11 03/26/25 06:11 Oxygen Delivery Method Room Air Weight: 73.21 kg Body Mass Index (BMI) 27.7 Intake & Output: Intake and Output for Last 24 Hours 03/24/25 03/25/25 03/26/25 23:59 23:59 23:59 Intake Total 1050 / 1050 1041.67 / 1041.67 Balance 1050 / 1050 1041.67 / 1041.67 Lab / Micro Data 03/26/25 06:04 03/26/25 06:04 Labs: Laboratory Results - last 24 hr 03/25/25 14:55: WBC 17.4 H, RBC 4.60, Hgb 14.4, Hct 42.0, MCV 91.3, MCH 31.3, MCHC 34.3, RDW Std Deviation 41.3, RDW Coeff of Caity 12.5, Plt Count 345, MPV 9.9, Immature Gran % (Auto) 0.600, Neut % (Auto) 80.0 H, Lymph % (Auto) 7.6 L, [place] % (Auto) 11.4 H, Eos % (Auto) 0.1, Baso % (Auto) 0.3, Absolute Neuts (auto) 13.9 H, Absolute Lymphs (auto) 1.32, Nucleated RBC % 0, Differential Comment SCANNED, Platelet Estimate ADEQUATE, Sodium 134, Potassium 3.7, Chloride 94 L, Carbon Dioxide 26.3, Anion Gap 14, BUN 11, Creatinine 0.89, Estim Creat Clear Calc 64.24, Est GFR (MDRD) Non-Af 73, BUN/Creatinine Ratio 12.8, Glucose 120 H, Calcium 9.5, Total Bilirubin 0.88, AST 20, ALT 26, Alkaline Phosphatase 110 H, Total Protein 7.5, Albumin 4.5, Globulin 2.9, Albumin/Globulin Ratio 1.5, Lipase 32 03/25/25 16:24: Urine Color Yellow, Urine Clarity Clear, Urine pH 7.0, Ur Specific [place] 1.005, Urine Protein Negative, Urine Glucose (UA) Normal, Urine Ketones Negative, Urine Occult Blood Negative, Urine Nitrite Negative, Urine Bilirubin Negative, Urine Urobilinogen Normal, Ur Leukocyte Esterase Negative, Urine RBC 0 SEEN, Urine WBC 0 SEEN, Ur Squamous Epith Cells 0-5 SEEN, Urine Bacteria 0 SEEN, Urine Mucus 0 SEEN 03/26/25 06:04: WBC 12.6 H, RBC 3.92 L, Hgb 12.2, Hct 36.8 L, MCV 93.9, MCH 31.1, MCHC 33.2, RDW Std Deviation 44.0 H, RDW Coeff of Caity 12.8, Plt Count 281, MPV 9.9, Immature Gran % (Auto) 0.500, Neut % (Auto) 74.0 H, Lymph % (Auto) 10.5 L, [place] % (Auto) 14.4 H, Eos % (Auto) 0.3, Baso % (Auto) 0.3, Absolute Neuts (auto) 9.3 H, Absolute Lymphs (auto) 1.32, Nucleated RBC % 0, Differential Comment SCANNED Radiography Diagnostic Testing: Radiology Impression Abdomen/Pelvis CT 03/25/25 16:12 IMPRESSION: 1. Acute uncomplicated sigmoid diverticulitis. 2. Diffuse hepatic steatosis. Reading Location: [facility] Physical Exam Narrative GENERAL: cooperative HEENT: Atraumatic; normocephalic EYES; Anicteric, Normal Conjunctiva NECK; supple, normal thyroid, RESPIRATORY: Diminished to auscultation CARDIOVASCULAR: Regular S1 S2, GI: soft, normoactive bowel sounds, : No Renal angle tenderness; EXTREMITIES: No edema, no clubbing, MUSCULOSKELETAL: no muscle wasting NEURO: Awake; no lateralizing signs. SKIN: No Rash PSYCH; Flat affect Assessment & Plan Assessment/Plan (1) Acute diverticulitis: PLAN: Plan Patient is a 65-year-old lady who was admitted with abdominal pain CT demonstrated acute uncomplicated sigmoid diverticulitis admitted to regular nursing floor for further management 1. Acute uncomplicated diverticulitis - CT of the abdomen read as acute uncomplicated sigmoid diverticulitis admitted to regular nursing floor started on Zosyn in addition to pain management IV fluids. Started on clear liquid diet advance as tolerated 2. Hypertension ? Blood pressure controlled, home medications continued with dose adjustment as needed 3. Depression with anxiety ? Patient is on venlafaxine did come to 4. Restless leg syndrome Patient is on ropinirole 5. GERD ? Patient is on PPI 6. Crohn's disease - Does have history of Crohn's, is on Stelara and follows with Dr. Godwin. Consult was placed to Dr. Villagomez 7. DVT prophylaxis ? Bilateral SCDs Time spent in the patient's overall evaluation,decision-making process, review of diagnostic data, adjustment of management, discussion with other providers, nursing nursing and ancillary staff involved in patient's care documentation, 38 Minutes Charges/Coding Visit Charges Inpatient E&M: 08505 Subs Hosp L2
[2025-03-26 07:40] VITALS: BP 132/79; PULSE 70; RESP 18; TEMP 36.6; O2SAT 98
[2025-03-26 07:49] LABS: Anion Gap 9 (5-15); BUN 8 mg/dL (4-19); BUN/Creat Ratio 9.7 RATIO (10-20); Calcium,Total 8.8 mg/dL (7.6-11.0); Carbon Dioxide 26.6 mmol/L (21.0-32.0); Chloride 102 mmol/L (98-108); Estimated Creatinine Clearance 70.57 ml/min (50-250); Glucose 109 mg/dL (70-99); Potassium 4.0 mmol/L (3.3-5.1)
--- NOTE | 2025-03-26 09:17 | CASEMGMT ---
Dx:acute uncomplicated diverticulitis LACE:2 6-Clicks:24 Medical record reviewed and patient evaluated for identification of discharge planning needs. Based on this review, at this time criteria are not present to indicate a need for discharge planning. Will remain available to assist with discharge planning needs as identified or requested. GI to c/s.
[2025-03-26 14:06] VITALS: BP 138/91; PULSE 80; RESP 18; TEMP 36.8; O2SAT 98
--- NOTE | 2025-03-26 15:03 | CON.PCM.GI_ITS ---
HPI Consult Data Date of Consult: 03/26/25 HPI Narrative Reason for Consultation: acute diverticulitis HPI Narrative: - pain began this past Monday (03/22/2025), mild tenderness initially, gradual onset, reports this is her typical diverticulitis pain, same quality but intensity is the worst she has ever had - Dicyclomine 20mg did not provide any relief of pain - pain is worse in the LLQ and radiates across lower abdomen and around to back - rating pain 04/02 presently, pain meds are only taking edge off for a short time - last documented bout of diverticulitis was July 2024 - treated with Augmentin - self started Cipro and Flagyl Monday (03/23/2025) had on hand at home - despite ATB pain continued to intensify, kept her up Monday evening and severity of pain, doubled over and come to ER on Monday (03/25/2025) - Tramadol PRN for back pain, 3-5 days a week - tramadol did not help abdominal pain - she is tolerating PO, although reports eating causes increased stabbing gas pain and fecal urgency - presently drinking Pulp smoothie - denies any nausea or emesis - denies any hematochezia or melena Bowel movements are: diarrhea this am, this past week formed and not every day, was having some intermittent episodes of diarrhea, reporting this is her baseline diarrhea being dietary triggered Blood noted in stools: denies Bowel movement urgency present: yes Stool incontinence: infrequent Nocturnal BM's: denies Abdominal pain: yes presently 04/02, cramping before a BM, constant dull pain with intermittent waves of severe stabbing pain Rectal pain: denies Fever: low grade 99.9 Night Sweats: denies Visual changes: denies Mouth sores: denies Joint pain: yes, primarily chronic back and hip pain Skin rashes/Lesions: denies Weight changes: denies Smoking status: denies NSAID use: denies - she reports 4 episodes of diverticulitis within a 12 month period prior to initiating ustekinumab, she has had only one episode (July 2024), treated with Augmentin) prior to current presentation [facility] Medical History Pain History of Crohn's disease Chronic pain GERD (gastroesophageal reflux disease) History of steroid therapy Wears glasses Post-menopausal Anxiety Alcohol use Hx of psoriatic arthritis Restless legs Back pain History of diverticulitis Hx of peptic ulcer Former smoker History of pain when walking Hypertension Osteoarthritis Home Medications ?Medication ?Instructions ?Recorded ?Last Taken ?Type venlafaxine 37.5 mg tablet 75 mg PO QHS depression 03/09/25 History pantoprazole 40 mg tablet,delayed 40 mg PO DAILY GERD 08/09/22 03/10/25 History release ramipril 10 mg capsule 10 mg PO BID HEART 08/09/22 03/09/25 History ropinirole 0.25 mg tablet 0.5 mg PO QHS RESTLESS LEGS 08/09/22 03/09/25 History furosemide 20 mg tablet 20 mg PO DAILY 01/12/2302/21 History acidophilus 25 million 2 tab PO BID #0 tabs 4 03/09/25 Rx cell-pectin, citrus 100 mg tablet tramadol 50 mg tablet 50 - 100 mg (1 - 2 x 50 mg) PO Q8H 09/26/23 03/09/25 Rx PRN pain #10 tabs amlodipine 5 mg tablet (Norvasc) 5 mg PO QHS 11/09/23 03/09/25 History dicyclomine 20 mg tablet 20 mg PO TID PRN abdominal p ain 10/04/24 Unknown History duloxetine 30 mg capsule,delayed 30 mg PO DAILY #30 ca ps 11/18/24 03/09/25 Rx release tizanidine 4 mg tablet 4 mg PO BID PRN PRN muscle s pasm 03/25/25 Unknown History ustekinumab 90 mg/mL subcutaneous 90 mg subcut Q8W #1 mL 03/26/25 Unknown Rx syringe (Stelara) Allergy/AdvReac Type Severity Reaction Status Date / Time adhesive tape Allergy Severe blistering Verified 03/25/25 14:10 bee venom protein (honey bee) Allergy Swelling Verified 03/25/25 14:10 Family History Other Breast cancer CAD (coronary artery disease) Heart disease Hypertension Surgical History Hx of colonoscopy History of lumbar spinal fusion Status post left partial knee replacement History of total right knee replacement History of appendectomy History of hysterectomy History of section Social History household members: spouse Smoking Status: Former smoker alcohol intake: current alcohol intake frequency: holidays/special occasions only substance use type: does not use what type of physical activity do you participate in: walking frequency: 1-2 times per week ROS Constitutional Constitutional: Reports as per HPI Cardiovascular Cardiovascular: Denies abdominal bloating, edema, nausea or vomiting Respiratory/Chest Respiratory/Chest: Denies dyspnea on exertion, mouth breathing, productive cough, shortness of breath at rest or shortness of breath with exertion Gastrointestinal Gastrointestinal: Reports abdominal pain, bloating, cramping and diarrhea Physical Exam Narrative A&Ox3, sitting up in bed, pleasant Const General Appearance: well developed Neck full ROM Resp Effort and Inspection: able to speak in complete sentences and symmetric chest movement Auscultation: clear to auscultation bilaterally GI GI Narrative: abdomen softly distended, +BS x4, mild tenderness LLQ>RLQ, no guarding Extremity normal to inspection Medical Records Data Attestation: I reviewed the patient's medical records Medical records narrative: She was last seen in the GI office 03/18/[address] Godwin - was feeling well, denied any GI symptoms of concern, intermittent diarrhea but felt this was diet related 09/21/2023 stool culture negative 09/24/2023 Chromogranin A WNL IgG subglasses WNL ANCA negative Celiac serologies negative ALCA WNL gASGA 54 (0-50) AMCA WNL ACCA WNL Gastrin WNL COLON 09/25/2023 focal mucosal ulceration at the splenic flexure - minimal non-specific chronic inflammation duodenum - no biopsies of left colon performed Multiple small and large-mouthed diverticula were found in the recto-sigmoid colon, sigmoid colon, descending colon and splenic flexure. Localized severe inflammation characterized by erythema, friability and granularity was found in the sigmoid colon, in the descending colon and at the splenic flexure. - she was started on methotrexate 12.5mg and folic acid - methotrexate did not help her crohn's Capsule ENDO 11/13/2023 benign appearing duodenal stricture, areas of enteritis and ulceration seen throughout the SB. Started on Mesalamine and Budesonide. EGD 11/14/2023 - no pathological diagnosis of duodenal biopsy benign-appearing, intrinsic moderate stenosis was found in the first portion of the duodenum and was traversed after dilation. A TTS dilator was passed through the scope. Dilation with a 15 mm pyloric balloon dilator was performed. The dilation site was examined and showed moderate improvement in luminal narrowing. 03/08/2024 Stelara loading dose 03/18/2025 CRP 4.67 this is down from 6.21 on 10/28/2024 CRP was 12.9 on 09/24/2023 and decreased to 3.04 05/03/2024 Ustekinumab 03/18/2024 Level 4, no Ab 10/28/2024 Level 4.2, no Ab No fecal calprotectin or MRE on record Lab / Micro Data Attestation: I reviewed the patient's lab results. Lab results narrative: labs show leukocytosis (17.4) with a left shift no bands HGB 14.4, ALP 110, AST and ALT WNL, albumin 4.5, lipase [address] 03/25/2025 (IV contrast) Unremarkable stomach and small bowel. No evidence of obstruction. Appendix is surgically absent. Extensive distal colonic diverticulosis, with segmental wall thickening and prominent inflammatory fat stranding in the lower pelvis involving the mid to distal sigmoid colon compatible with acute diverticulitis. No free fluid collection or free air to indicate perforation. Hepatic steatosis. 03/26/25 06:04 03/26/25 06:04 Labs: Laboratory Results - last 24 hr 03/25/25 14:55: WBC 17.4 H, RBC 4.60, Hgb 14.4, Hct 42.0, MCV 91.3, MCH 31.3, MCHC 34.3, RDW Std Deviation 41.3, RDW Coeff of Caity 12.5, Plt Count 345, MPV 9.9, Immature Gran % (Auto) 0.600, Neut % (Auto) 80.0 H, Lymph % (Auto) 7.6 L, M [place] % (Auto) 11.4 H, Eos % (Auto) 0.1, Baso % (Auto) 0.3, Absolute Neuts (auto) 13.9 H, Absolute Lymphs (auto) 1.32, Nucleated RBC % 0, Differential Comment SCANNED, Platelet Estimate ADEQUATE, Sodium 134, Potassium 3.7, Chloride 94 L, Carbon Dioxide 26.3, Anion Gap 14, BUN 11, Creatinine 0.89, Estim Creat Clear Calc 64.24, Est GFR (MDRD) Non-Af 73, BUN/Creatinine Ratio 12.8, Glucose 120 H, Calcium 9.5, Total Bilirubin 0.88, AST 20, ALT 26, Alkaline Phosphatase 110 H, Total Protein 7.5, Albumin 4.5, Globulin 2.9, Albumin/Globulin Ratio 1.5, Lipase 32 03/25/25 16:24: Urine Color Yellow, Urine Clarity Clear, Urine pH 7.0, Ur Specific [place] 1.005, Urine Protein Negative, Urine Glucose (UA) Normal, Urine Ketones Negative, Urine Occult Blood Negative, Urine Nitrite Negative, Urine Bilirubin Negative, Urine Urobilinogen Normal, Ur Leukocyte Esterase Negative, Urine RBC 0 SEEN, Urine WBC 0 SEEN, Ur Squamous Epith Cells 0-5 SEEN, Urine Bacteria 0 SEEN, Urine Mucus 0 SEEN 03/26/25 06:04: WBC 12.6 H, RBC 3.92 L, Hgb 12.2, Hct 36.8 L, MCV 93.9, MCH 31.1, MCHC 33.2, RDW Std Deviation 44.0 H, RDW Coeff of Caity 12.8, Plt Count 281, MPV 9.9, Immature Gran % (Auto) 0.500, Neut % (Auto) 74.0 H, Lymph % (Auto) 10.5 L, [place] % (Auto) 14.4 H, Eos % (Auto) 0.3, Baso % (Auto) 0.3, Absolute Neuts (auto) 9.3 H, Absolute Lymphs (auto) 1.32, Nucleated RBC % 0, Differential Comment SCANNED, Sodium 137, Potassium 4.0, Chloride 102, Carbon Dioxide 26.6, Anion Gap 9, BUN 8, Creatinine 0.80, Estim Creat Clear Calc 70.57, Est GFR (MDRD) Non-Af 83, BUN/Creatinine Ratio 9.7 L, Glucose 109 H, Calcium 8.8 Imaging Radiology Impression Abdomen/Pelvis CT 03/25/25 16:12 IMPRESSION: 1. Acute uncomplicated sigmoid diverticulitis. 2. Diffuse hepatic steatosis. Reading Location: [facility] Assessment & Plan Assessment/Plan (1) Diverticulitis of sigmoid colon: PLAN: Plan 65y/o female with reported history of Crohn's disease managed with Ustekinumab since 02/2024 (recent level 4, no antibodies) who has a history of recurrent diverticulitis with 4 episodes in a 12 month period prior to biologic initiation. She now presents with acute onset severe LLQ pain beginning 03/22/2025, worsening despite self initiation of cipro and metronidazole. With CT confirming mild sigmoid diverticulitis. She describes the pain as similar in character to prior diverticulitis episodes, but more severe with associated bloating, and abdominal distention. No associated nausea, vomiting, or change in bowel habits. Denies dysuria; UA negative. Vitals: Low-grade temp 99.9. He was admitted due to uncontrolled pain despite multiple doses of IV analgesia in the ED. Initiated on IV piperacillin- tazobactam. Pain remains only partially responsive to IV morphine and oral oxycodone. She is tolerating oral intake. Last prior diverticulitis episode July 2024, treated with Augmentin. Recommend continued IV Zosyn for acute diverticulitis. She has shown improvement in leukocytosis (17.4 -> 12.6). Monitor vitals, abdominal pain, WBC daily. Recommend soft diet as tolerated. Avoid NSAIDS given history of Crohn's. Consider surgical consultation for worsening pain, signs of peritonitis, or failure to improve with IV antibiotics.
[2025-03-26 20:23] VITALS: BP 142/82; PULSE 88; RESP 18; TEMP 37.1; O2SAT 96
[2025-03-26] MEDS: Senna/Docusate Sodium 1 Tablet 2 TABLET PO (20:28)
[2025-03-26] MEDS: 0.9% Saline Lock 10 ML Syringe IV (20:30)
[2025-03-26 21:52] VITALS: BP 142/80; PULSE 87; RESP 16; TEMP 37.1; O2SAT 98
[2025-03-26] MEDS: MELATONIN 10 MG TABLET PO (21:59)
[2025-03-26] MEDS: Lactobacillis Acidophilus 2 CAP PO (22:02)
[2025-03-27 02:22] VITALS: BP 136/73; PULSE 86; RESP 16; TEMP 36.9; O2SAT 97
[2025-03-27] MEDS: Piperacil/Tazobactam 3.375 GM in 0.9% Normal Saline (50mL MB+) 50 ML IV ×3 (06:00→21:36)
--- NOTE | 2025-03-27 06:50 | PN.HOSP_ITS ---
Reason for Visit Chief Complaint: Lower abdominal pain Subjective Subjective Patient is reevaluated. Pain persist Objective Data Objective Data Vital Signs: Vital Signs Temp Pulse Resp BP Pulse Ox O2 Del Method 98.5 F 86 16 136/73 H 97 Room Air 03/27/25 02:22 03/27/25 02:22 03/27/25 02:22 03/27/25 02:22 03/27/25 02:22 03/27/25 02:22 Oxygen Delivery Method Room Air Weight: 73.21 kg Body Mass Index (BMI) 27.7 Intake & Output: Intake and Output for Last 24 Hours 03/25/25 03/26/25 03/27/25 23:59 23:59 23:59 Intake Total 1050 / 1050 2141.67 / 2141.67 50 / 50 Balance 1050 / 1050 2141.67 / 2141.67 50 / 50 Lab / Micro Data 03/26/25 06:04 03/26/25 06:04 Labs: Laboratory Results - last 24 hr 03/26/25 06:04: Differential Comment SCANNED, Sodium 137, Potassium 4.0, Chloride 102, Carbon Dioxide 26.6, Anion Gap 9, BUN 8, Creatinine 0.80, Estim Creat Clear Calc 70.57, Est GFR (MDRD) Non-Af 83, BUN/Creatinine Ratio 9.7 L, G lucose 109 H, Calcium 8.8 Physical Exam Narrative GENERAL: cooperative HEENT: Atraumatic; normocephalic EYES; Anicteric, Normal Conjunctiva NECK; supple, normal thyroid, RESPIRATORY: Diminished to auscultation CARDIOVASCULAR: Regular S1 S2, GI: soft, normoactive bowel sounds, distended tympanitic to percussion : No Renal angle tenderness; EXTREMITIES: No edema, no clubbing, MUSCULOSKELETAL: no muscle wasting NEURO: Awake; no lateralizing signs. SKIN: No Rash PSYCH; Flat affect Assessment & Plan Assessment/Plan (1) Acute diverticulitis: PLAN: Plan Patient is a 65-year-old lady who was admitted with abdominal pain CT demonstrated acute uncomplicated sigmoid diverticulitis admitted to regular nursing floor for further management 1. Acute uncomplicated diverticulitis - CT of the abdomen read as acute uncomplicated sigmoid diverticulitis admitted to regular nursing floor started on Zosyn in addition to pain management IV fluids. Started on clear liquid diet advance as tolerated 03/27/2025; patient seen patient abdominal pain persist to use to rule out bowel obstruction or 2. Hypertension ? Blood pressure controlled, home medications continued with dose adjustment as needed 3. Depression with anxiety ? Patient is on venlafaxine did come to 4. Restless leg syndrome Patient is on ropinirole 5. GERD ? Patient is on PPI 6. Crohn's disease - Does have history of Crohn's, is on Stelara and follows with Dr. Godwin. Consult was placed to Dr. Villagomez 7. DVT prophylaxis ? Bilateral SCDs Time spent in the patient's overall evaluation,decision-making process, review of diagnostic data, adjustment of management, discussion with other providers, nursing nursing and ancillary staff involved in patient's care documentation, 36 Minutes Charges/Coding Visit Charges Inpatient E&M: 13208 Subs Hosp L2
[2025-03-27 07:30] VITALS: BP 119/76; PULSE 54; RESP 16; TEMP 36.7; O2SAT 98
[2025-03-27] MEDS: Senna/Docusate Sodium 1 Tablet 2 TABLET PO ×2 (08:07→21:35)
[2025-03-27] MEDS: Lactobacillis Acidophilus 2 CAP PO ×2 (08:09→21:36)
--- NOTE | 2025-03-27 09:10 | RAD_ITS ---
PROCEDURE: ABD DECUB AND/OR ERECT(PORTABL 03/27/2025 REASON FOR EXAM: ABDOMINAL DISTENTION TECHNIQUE: Procedure Code: [id number]_P Modality: DX Procedure: ABD DECUB AND/OR ERECT(PORTABL COMPARISON: Prior CT scan of the abdomen and pelvis dated March 25, 2025. FINDINGS: Bowel gas: Moderate amount of fecal material is seen in the colon. This is worse in the right hemicolon. No evidence of small-bowel obstruction. Calcifications: No suspicious calcifications. Bones: Prior fusion at the L4-L5 level. Other: RAD/Abd Decub and/or Erect(Portabl IMPRESSION: Moderate amount of fecal material is seen in the colon. [id number]
[2025-03-27] MEDS: 0.9% Saline Lock 10 ML Syringe IV ×3 (09:51→20:47)
[2025-03-27 10:59] LABS: Hematocrit 34.9 % (37-47); Hemoglobin 11.5 g/dL (12.0-15.0); Immature Granulocytes Count 0.050 X10^3/uL (0.0-0.0); Mean Corp Hgb Conc 33.0 g/dL (32-36); Mean Corpuscular Volume 95.1 fL (81-99); Mean Platelet Vol. 10.1 fl (6.2-12.0); NRBC Flagged by Analyzer 0 % (0-5); Platelet Count 266 K/mm3 (150-450); RBC Distribution Width CV 12.6 % (11.6-14.6); RBC Distribution Width SD 44.1 fl (35.1-43.9); Red Blood Count 3.67 M/mm3 (4.2-5.4); White Blood Count 10.0 K/mm3 (4.4-11.0)
[2025-03-27 11:25] LABS: Anion Gap 10 (5-15); BUN 6 mg/dL (4-19); BUN/Creat Ratio 10.0 RATIO (10-20); Calcium,Total 8.9 mg/dL (7.6-11.0); Carbon Dioxide 23.2 mmol/L (21.0-32.0); Chloride 103 mmol/L (98-108); Estimated Creatinine Clearance 92.55 ml/min (50-250); Glucose 116 mg/dL (70-99); Magnesium 2.2 mg/dL (1.5-2.2); Potassium 4.3 mmol/L (3.3-5.1)
[2025-03-27] MEDS: Polyethylene Glycol 3350 17 GM PACKET PO (11:42)
[2025-03-27 14:33] VITALS: BP 125/69; PULSE 65; RESP 17; TEMP 36.6; O2SAT 95
[2025-03-27 17:09] VITALS: BP 130/86; PULSE 68
[2025-03-27 20:00] VITALS: BP 144/97; PULSE 64; RESP 18; TEMP 36.6; O2SAT 96
[2025-03-27] MEDS: MELATONIN 10 MG TABLET PO (21:36)
[2025-03-28 02:00] VITALS: BP 150/78; PULSE 75; RESP 16; TEMP 36.6; O2SAT 97
[2025-03-28] MEDS: Piperacil/Tazobactam 3.375 GM in 0.9% Normal Saline (50mL MB+) 50 ML IV ×3 (06:20→20:49)
[2025-03-28 06:40] LABS: Hematocrit 34.7 % (37-47); Hemoglobin 11.4 g/dL (12.0-15.0); Immature Granulocytes Count 0.030 X10^3/uL (0.0-0.0); Mean Corp Hgb Conc 32.9 g/dL (32-36); Mean Corpuscular Volume 95.3 fL (81-99); Mean Platelet Vol. 9.9 fl (6.2-12.0); NRBC Flagged by Analyzer 0 % (0-5); Platelet Count 262 K/mm3 (150-450); RBC Distribution Width CV 12.6 % (11.6-14.6); RBC Distribution Width SD 44.1 fl (35.1-43.9); Red Blood Count 3.64 M/mm3 (4.2-5.4); White Blood Count 6.4 K/mm3 (4.4-11.0)
--- NOTE | 2025-03-28 07:11 | PN.HOSP_ITS ---
Reason for Visit Chief Complaint: Lower abdominal pain Subjective Subjective Abdominal x-rays obtained the day prior demonstrated moderate amount of fecal material in the colon patient was placed on suppository as well as MiraLAX with good effect. Still complains of abdominal cramps and appears bloated. Objective Data Objective Data Vital Signs: Vital Signs Temp Pulse Resp BP Pulse Ox O2 Del Method 97.8 F 75 16 150/78 H 97 Room Air 03/28/25 02:00 03/28/25 02:00 03/28/25 02:00 03/28/25 02:00 03/28/25 02:00 03/28/25 02:00 Oxygen Delivery Method Room Air Weight: 73.21 kg Body Mass Index (BMI) 27.7 Intake & Output: Intake and Output for Last 24 Hours 03/26/25 03/27/25 03/28/25 23:59 23:59 23:59 Intake Total 2141.67 / 2141.67 150.00 / 150.00 50 / 50 Balance 2141.67 / 2141.67 150.00 / 150.00 50 / 50 Lab / Micro Data 03/28/25 05:55 03/27/25 10:35 Labs: Laboratory Results - last 24 hr 03/27/25 10:35: WBC 10.0, RBC 3.67 L, Hgb 11.5 L, Hct 34.9 L, MCV 95.1, MCH 31.3, MCHC 33.0, RDW Std Deviation 44.1 H, RDW Coeff of Caity 12.6, Plt Count 266, MPV 10.1, Immature Gran % (Auto) 0.500, Neut % (Auto) 70.0, Lymph % (Auto) 17.2 L, [place] % (Auto) 10.5 H, Eos % (Auto) 1.6, Baso % (Auto) 0.2, Absolute Neuts (auto) 7.0, Absolute Lymphs (auto) 1.71, Nucleated RBC % 0, Sodium 136, Potassium 4.3, Chloride 103, Carbon Dioxide 23.2, Anion Gap 10, BUN 6, C reatinine 0.61 L, Estim Creat Clear Calc 92.55, Est GFR (MDRD) Non-Af 101, BUN/Creatinine Ratio 10.0, Glucose 116 H, Calcium 8.9, Phosphorus 3.6, Magnesium 2.2 03/28/25 05:55: WBC 6.4, RBC 3.64 L, Hgb 11.4 L, Hct 34.7 L, MCV 95.3, MCH 31.3, MCHC 32.9, RDW Std Deviation 44.1 H, RDW Coeff of Caity 12.6, Plt Count 262, MPV 9.9, Immature Gran % (Auto) 0.500, Neut % (Auto) 56.6, Lymph % (Auto) 26.9, [place] % (Auto) 11.9 H, Eos % (Auto) 3.6, Baso % (Auto) 0.5, Absolute Neuts (auto) 3.6, Absolute Lymphs (auto) 1.72, Nucleated RBC % 0 Radiography Diagnostic Testing: Radiology Impression Abdomen X-Ray 03/27/25 09:10 IMPRESSION: Moderate amount of fecal material is seen in the colon. [id number] Physical Exam Narrative GENERAL: cooperative HEENT: Atraumatic; normocephalic EYES; Anicteric, Normal Conjunctiva NECK; supple, normal thyroid, RESPIRATORY: Diminished to auscultation CARDIOVASCULAR: Regular S1 S2, GI: soft, normoactive bowel sounds, distended tympanitic to percussion : No Renal angle tenderness; EXTREMITIES: No edema, no clubbing, MUSCULOSKELETAL: no muscle wasting NEURO: Awake; no lateralizing signs. SKIN: No Rash PSYCH; Flat affect Assessment & Plan Assessment/Plan (1) Acute diverticulitis: PLAN: Plan Patient is a 65-year-old lady who was admitted with abdominal pain CT demonstrated acute uncomplicated sigmoid diverticulitis admitted to regular nursing floor for further management 1. Acute uncomplicated diverticulitis - CT of the abdomen read as acute uncomplicated sigmoid diverticulitis admitted to regular nursing floor started on Zosyn in addition to pain management IV fluids. Started on clear liquid diet advance as tolerated 03/27/2025; patient seen patient abdominal pain persist to use to rule out bowel obstruction ? 03/28/2025;Abdominal x-rays obtained the day prior demonstrated moderate amount of fecal material in the colon patient was placed on suppository as well as MiraLAX with good effect. Still complains of abdominal cramps and appears bloated.. Patient WBC count trending 2. Hypertension ? Blood pressure controlled, home medications continued with dose adjustment as needed 3. Depression with anxiety ? Patient is on venlafaxine did come to 4. Restless leg syndrome Patient is on ropinirole 5. GERD ? Patient is on PPI 6. Crohn's disease - Does have history of Crohn's, is on Stelara and follows with Dr. Godwin. Consult was placed to him 7. Psoriatic arthritis ? Patient is on Stelara 8. DVT prophylaxis ? Bilateral SCDs Time spent in the patient's overall evaluation,decision-making process, review of diagnostic data, adjustment of management, discussion with other providers, nursing nursing and ancillary staff involved in patient's care documentation, 36 Minutes Charges/Coding Visit Charges Inpatient E&M: 20936 Subs Hosp L2
[2025-03-28 07:48] VITALS: BP 162/99; PULSE 70; RESP 17; TEMP 36.6; O2SAT 99
[2025-03-28] MEDS: Senna/Docusate Sodium 1 Tablet 2 TABLET PO ×2 (08:09→18:21)
[2025-03-28] MEDS: Lactobacillis Acidophilus 2 CAP PO ×2 (08:10→20:49)
[2025-03-28 08:16] LABS: Anion Gap 10 (5-15); BUN 9 mg/dL (4-19); BUN/Creat Ratio 15.0 RATIO (10-20); Calcium,Total 9.3 mg/dL (7.6-11.0); Carbon Dioxide 25.7 mmol/L (21.0-32.0); Chloride 105 mmol/L (98-108); Estimated Creatinine Clearance 94.09 ml/min (50-250); Glucose 102 mg/dL (70-99); Potassium 4.5 mmol/L (3.3-5.1)
[2025-03-28 14:28] VITALS: BP 151/99; PULSE 66; RESP 16; TEMP 35.7; O2SAT 97
[2025-03-28] MEDS: 0.9% Saline Lock 10 ML Syringe IV (14:31)
[2025-03-28 20:37] VITALS: BP 169/97; PULSE 76; RESP 18; TEMP 36.7; O2SAT 98
[2025-03-28] MEDS: 0.9% Normal Saline (250mL Bag) 250 ML 15 ML IV (20:51)
[2025-03-28] MEDS: MELATONIN 10 MG TABLET PO (21:04)
[2025-03-29 03:20] VITALS: BP 149/93; PULSE 65; RESP 18; TEMP 36.6; O2SAT 97
[2025-03-29 06:41] LABS: Hematocrit 39.0 % (37-47); Hemoglobin 12.8 g/dL (12.0-15.0); Immature Granulocytes Count 0.020 X10^3/uL (0.0-0.0); Mean Corp Hgb Conc 32.8 g/dL (32-36); Mean Corpuscular Volume 95.1 fL (81-99); Mean Platelet Vol. 9.9 fl (6.2-12.0); NRBC Flagged by Analyzer 0 % (0-5); Platelet Count 289 K/mm3 (150-450); RBC Distribution Width CV 12.4 % (11.6-14.6); RBC Distribution Width SD 43.5 fl (35.1-43.9); Red Blood Count 4.10 M/mm3 (4.2-5.4); White Blood Count 6.8 K/mm3 (4.4-11.0)
[2025-03-29] MEDS: Piperacil/Tazobactam 3.375 GM in 0.9% Normal Saline (50mL MB+) 50 ML IV (07:04)
--- NOTE | 2025-03-29 07:17 | PCM.PN.HOSP ---
Reason for Visit Chief Complaint: Lower abdominal pain Subjective Subjective Patient seen symptoms somewhat improved. Plan is for patient to be discharged home with oral antibiotics and pain meds with Follow-up with GI as outpatient Objective Data Objective Data Vital Signs: Vital Signs Temp Pulse Resp BP Pulse Ox O2 Del Method 97.9 F 65 18 149/93 H 97 Room Air 03/29/25 03:20 03/29/25 03:20 03/29/25 03:20 03/29/25 03:20 03/29/25 03:20 03/29/25 03:20 Oxygen Delivery Method Room Air Weight: 73.21 kg Body Mass Index (BMI) 27.7 Intake & Output: Intake and Output for Last 24 Hours 03/27/25 03/28/25 03/29/25 23:59 23:59 23:59 Intake Total 150.00 / 150.00 450 / 450 350 / 350 Balance 150.00 / 150.00 450 / 450 350 / 350 Lab / Micro Data 03/29/25 06:02 03/29/25 06:02 Labs: Laboratory Results - last 24 hr 03/28/25 05:55: Sodium 140, Potassium 4.5, Chloride 105, Carbon Dioxide 25.7, Anion Gap 10, BUN 9, Creatinine 0.60 L, Estim Creat Clear Calc 94.09, Est GFR (MDRD) Non-Af 101, BUN/Creatinine Ratio 15.0, Glucose 102 H, Calcium 9.3 03/29/25 06:02: WBC 6.8, RBC 4.10 L, Hgb 12.8, Hct 39.0, MCV 95.1, MCH 31.2, MCHC 32.8, RDW Std Deviation 43.5, RDW Coeff of Caity 12.4, Plt Count 289, MPV 9.9, Immature Gran % (Auto) 0.300, Neut % (Auto) 58.9, Lymph % (Auto) 24.7, [place] % (Auto) 12.0 H, Eos % (Auto) 3.5, Baso % (Auto) 0.6, Absolute Neuts (auto) 4.0, Absolute Lymphs (auto) 1.67, Nucleated RBC % 0 Physical Exam Narrative GENERAL: cooperative HEENT: Atraumatic; normocephalic EYES; Anicteric, Normal Conjunctiva NECK; supple, normal thyroid, RESPIRATORY: Diminished to auscultation CARDIOVASCULAR: Regular S1 S2, GI: soft, normoactive bowel sounds, distended tympanitic to percussion : No Renal angle tenderness; EXTREMITIES: No edema, no clubbing, MUSCULOSKELETAL: no muscle wasting NEURO: Awake; no lateralizing signs. SKIN: No Rash PSYCH; Flat affect Assessment & Plan Assessment/Plan (1) Acute diverticulitis: PLAN: Plan Patient is a 65-year-old lady who was admitted with abdominal pain CT demonstrated acute uncomplicated sigmoid diverticulitis admitted to regular nursing floor for further management 1. Acute uncomplicated diverticulitis - CT of the abdomen read as acute uncomplicated sigmoid diverticulitis admitted to regular nursing floor started on Zosyn in addition to pain management IV fluids. Started on clear liquid diet advance as tolerated 03/27/2025; patient seen patient abdominal pain persist to use to rule out bowel obstruction ? 03/28/2025;Abdominal x-rays obtained the day prior demonstrated moderate amount of fecal material in the colon patient was placed on suppository as well as MiraLAX with good effect. Still complains of abdominal cramps and appears bloated.. Patient WBC count trending ? 03/29/2025 patient to be discharged home 2. Hypertension ? Blood pressure controlled, home medications continued with dose adjustment as needed 3. Depression with anxiety ? Patient is on venlafaxine did come to 4. Restless leg syndrome Patient is on ropinirole 5. GERD ? Patient is on PPI 6. Crohn's disease - Does have history of Crohn's, is on Stelara and follows with Dr. Godwin. Consult was placed to him 7. Psoriatic arthritis ? Patient is on Stelara 8. DVT prophylaxis ? Bilateral SCDs Time spent in the patient's overall evaluation,decision-making process, review of diagnostic data, adjustment of management, discussion with other providers, nursing nursing and ancillary staff involved in patient's care documentation, 36 Minutes
[2025-03-29 07:41] LABS: Anion Gap 12 (5-15); BUN 12 mg/dL (4-19); BUN/Creat Ratio 17.2 RATIO (10-20); Calcium,Total 9.4 mg/dL (7.6-11.0); Carbon Dioxide 22.7 mmol/L (21.0-32.0); Chloride 104 mmol/L (98-108); Estimated Creatinine Clearance 84.26 ml/min (50-250); Glucose 94 mg/dL (70-99); Potassium 4.3 mmol/L (3.3-5.1)
--- NOTE | 2025-03-29 08:18 | PCM.DC.SUM ---
Providers Date of Admission: 03/25/25 Date of Discharge: 03/29/25 Primary Care Physician: Dr. Hernandez Mosley MD Consultations 03/26/25 09:27 Consult: Gastroenterology Routine Consulting Provider: [facility] Reason for Consult: abdominal pain EMERGENT Consult: No MD Notified: Yes Date Notified: 03/26/25 Time Notified: 09:28 Method of Notification: Text Reason For Visit: ACUTE UNCOMPLICATED DIVERTICULITIS Diagnosis Discharge Diagnosis (1) Acute diverticulitis: Status: Acute Code(s): K57.92 - Diverticulitis of intestine, part unspecified, without perforation or abscess without bleeding Plan Patient is a 65-year-old lady who was admitted with abdominal pain CT demonstrated acute uncomplicated sigmoid diverticulitis admitted to regular nursing floor for further management 1. Acute uncomplicated diverticulitis - CT of the abdomen read as acute uncomplicated sigmoid diverticulitis admitted to regular nursing floor started on Zosyn in addition to pain management IV fluids. Started on clear liquid diet advance as tolerated 03/27/2025; patient seen patient abdominal pain persist to use to rule out bowel obstruction ? 03/28/2025;Abdominal x-rays obtained the day prior demonstrated moderate amount of fecal material in the colon patient was placed on suppository as well as MiraLAX with good effect. Still complains of abdominal cramps and appears bloated.. Patient WBC count trending ? 03/29/2025 patient to be discharged home 2. Hypertension ? Blood pressure controlled, home medications continued with dose adjustment as needed 3. Depression with anxiety ? Patient is on venlafaxine did come to 4. Restless leg syndrome Patient is on ropinirole 5. GERD ? Patient is on PPI 6. Crohn's disease - Does have history of Crohn's, is on Stelara and follows with Dr. Godwin. Consult was placed to him 7. Psoriatic arthritis ? Patient is on Stelara 8. DVT prophylaxis ? Bilateral SCDs Time spent in the patient's overall evaluation,decision-making process, review of diagnostic data, adjustment of management, discussion with other providers, nursing nursing and ancillary staff involved in patient's care documentation, 36 Minutes Medications at Discharge Home Medications venlafaxine 37.5 mg tablet 75 mg PO QHS depression 03/20/16 pantoprazole 40 mg tablet,delayed release 40 mg PO DAILY GERD 08/09/22 ramipril 10 mg capsule 10 mg PO BID HEART 08/09/22 ropinirole 0.25 mg tablet 0.5 mg PO QHS RESTLESS LEGS 08/09/22 furosemide 20 mg tablet 20 mg PO DAILY 01/12/23 acidophilus 25 million cell-pectin, citrus 100 mg tablet 2 tab PO BID #0 tabs 09/26/23 amlodipine 5 mg tablet (Norvasc) 5 mg PO QHS 11/09/23 dicyclomine 20 mg tablet 20 mg PO TID PRN abdominal pain 10/04/24 duloxetine 30 mg capsule,delayed release 30 mg PO DAILY #30 caps 11/18/24 tizanidine 4 mg tablet 4 mg PO BID PRN PRN muscle spasm 03/25/25 ustekinumab 90 mg/mL subcutaneous syringe (Stelara) 90 mg subcut Q8W #1 mL 03/26/25 amoxicillin 875 mg-potassium clavulanate 125 mg tablet 1 tab PO Q12H #20 tabs 03/29/25 oxycodone 5 mg tablet 5 mg PO Q4H PRN PRN Pain Score 4-10 5 days #20 tabs 03/29/25 sennosides 8.6 mg-docusate sodium 50 mg tablet (Stimulant Laxative Plus) 1 tab PO BID #60 tabs 03/29/25 Physical Exam Narrative GENERAL: cooperative HEENT: Atraumatic; normocephalic EYES; Anicteric, Normal Conjunctiva NECK; supple, normal thyroid, RESPIRATORY: Diminished to auscultation CARDIOVASCULAR: Regular S1 S2, GI: soft, normoactive bowel sounds, distended tympanitic to percussion : No Renal angle tenderness; EXTREMITIES: No edema, no clubbing, MUSCULOSKELETAL: no muscle wasting NEURO: Awake; no lateralizing signs. SKIN: No Rash PSYCH; Flat affect Weight / BMI Weight Weight: 73.21 kg Body Mass Index (BMI) 27.7 ABG / Lab / Microbiology Data 03/29/25 06:02 03/29/25 06:02 Laboratory: Laboratory Results - last 24 hr 03/29/25 06:02: WBC 6.8, RBC 4.10 L, Hgb 12.8, Hct 39.0, MCV 95.1, MCH 31.2, MCHC 32.8, RDW Std Deviation 43.5, RDW Coeff of Caity 12.4, Plt Count 289, MPV 9.9, Immature Gran % (Auto) 0.300, Neut % (Auto) 58.9, Lymph % (Auto) 24.7, [place] % (Auto) 12.0 H, Eos % (Auto) 3.5, Baso % (Auto) 0.6, Absolute Neuts (auto) 4.0, Absolute Lymphs (auto) 1.67, Nucleated RBC % 0, Sodium 139, Potassium 4.3, Chloride 104, Carbon Dioxide 22.7, Anion Gap 12, BUN 12, Creatinine 0.67 L, Estim Creat Clear Calc 84.26, Est GFR (MDRD) Non-Af 98, BUN/Creatinine Ratio 17.2, Glucose 94, Calcium 9.4 D/C Instructions Discharge Activity: Return to Normal Activity Call your doctor if you observe: Fever of 101 or Higher, Shortness of breath, Fainting spells and Chest pain DC O2, CPAP, BIPAP Needs Home O2 Discharge instructions: No Meaningful Use Info Meaningful Use Meaningful Use Diagnoses (Choose all that apply): None applicable Discharge Plan Admission Admit Date/Time: 03/25/25 18:40 Attending Provider: Jorge L Jin Primary Care Provider: Hernandez Mosley Chi Consulting Providers: Jennifer Thomas; Sherif Benson; Stanley Godwin; Amber Delgado; Emmy Modi; Apple Snow Discharge Orders/Prescriptions Prescriptions: New oxycodone 5 mg Tablet 5 mg PO Q4H PRN PRN (Reason: Pain Score 4-10) 5 Days Qty: 20 0RF sennosides-docusate sodium [Stimulant Laxative Plus] 8.6-50 mg Tablet 1 tab PO BID Qty: 60 0RF amoxicillin-pot clavulanate 875-125 mg tablet 1 tab PO Q12H Qty: 20 0RF Continued furosemide 20 mg tablet 20 mg PO DAILY venlafaxine 37.5 MG tablet 75 mg PO QHS Patient Comments: mood ropinirole 0.25 mg tablet 0.5 mg PO QHS Patient Comments: TAKE 2 TABLETS BY MOUTH ONCE DAILY AT BEDTIME FOR 90 DAYS pantoprazole 40 MG tablet,delayed release (DR/EC) 40 mg PO DAILY Patient Comments: acid reflux ramipril 10 MG capsule 10 mg PO BID amlodipine [Norvasc] 5 mg tablet 5 mg PO QHS acidophilus-pectin, citrus 25 million cell -100 mg Tablet 2 tab PO BID Qty: 0 0RF Rx Instructions: [id number]. Probiotic. At least for 2 week. dicyclomine 20 mg tablet 20 mg PO TID PRN (Reason: abdominal pain) tizanidine 4 mg tablet 4 mg PO BID PRN PRN (Reason: muscle spasm) duloxetine 30 mg capsule,delayed release(DR/EC) 30 mg PO DAILY Qty: 30 2RF Stelara 90 mg/mL syringe 90 mg subcut Q8W Qty: 1 6RF Rx Instructions: ICD 10- K50.90 Crohn's Disease Discontinued tramadol 50 mg tablet 50 - 100 mg PO Q8H PRN (Reason: pain) Qty: 10 0RF Referrals / Follow Up: Stanley Godwin DO [Med Staff - Active Staff] - Within 2 Weeks Hernandez Mosley Chi, MD [Primary Care Provider] - Within 2 Weeks Disposition Disposition (needs filled in before D/C Order can be placed): Home, Self Care Charges/Coding Visit Charges Inpatient E&M: 02617 Disch Hosp >30min
[2025-03-29 09:46] VITALS: BP 162/92; PULSE 76; RESP 16; TEMP 36.6; O2SAT 98
[2025-03-29] MEDS: Lactobacillis Acidophilus 2 CAP PO (09:49)
[2025-03-29] MEDS: Senna/Docusate Sodium 1 Tablet PO (09:50)
[2025-03-29 12:23] VITALS: BP 176/98; PULSE 69; RESP 16; TEMP 36.6; O2SAT 100
[2025-03-29 13:05] VITALS: BP 135/85; PULSE 71; RESP 16; TEMP 36.6; O2SAT 96
== END 2025-03-29 13:48 | disposition home or self-care (01) | DRG 392 ==
LOC: ED 18:10 → MS3 18:44
PROVIDERS: Admitting Provider Internal Medicine; Emergency Provider Emergency Medicine; PCP Family Medicine Geriatric Medicine; Visit Provider Internal Medicine
DX: K57.32 Diverticulitis of large intestine without perforation or abscess without bleeding (principal); K50.90 Crohn's disease, unspecified, without complications; F41.8 Other specified anxiety disorders; L40.50 Arthropathic psoriasis, unspecified; G25.81 Restless legs syndrome; I10 Essential (primary) hypertension; K21.9 Gastro-esophageal reflux disease without esophagitis; Z87.891 Personal history of nicotine dependence; Z79.891 Long term (current) use of opiate analgesic; Z90.710 Acquired absence of both cervix and uterus; G89.29 Other chronic pain; Z79.899 Other long term (current) drug therapy
CPT/HCPCS: 36415; 74019; 74177; 80048; 80053; 81001; 83690; 83735; 84100; 85025; 99284; Q9967; A4216; J2405

== ENCOUNTER 2025-06-05 05:57 | Day surgery (SDC) | payer MEDICARE, SELFPAY ==
[2025-06-05] VITALS (10 sets, daily range): BP systolic 86–140; BP diastolic 53–92; PULSE 54–71; RESP 16; TEMP 36.3–36.6; O2SAT 94–100; BMI 27.6
--- OUTSIDE RECORDS SUMMARY | 2025-06-05 06:01 | XMS RPT_ITS | CCD ---
Author Organization [facility] Team Providers Care Transplant Nurse Practitioner Name Role Phone TRINIDAD KAY Unavailable Unavailable Nidia Lawler Unavailable Unavailable UNKNOWN Unavailable Unavailable Sai Estrada Unavailable Unavailable Unavailable, Family Physician Unavailable Un available Unavailable, Family Physician Unavailable Un available ZENAIDA MARR Unavailable Unavailable Az ROSADO, Kris Davis Primary Care Provider BERNARDO, KRIS SERGEY Primary Care Unavailable JESUS ALBERTO HARRIS Referring Unavailable BERNARDO, KRIS SERGEY Primary Care Unavailable TESTRAESPERANZA, YUMIKO Attending Unavailable TESTROSETTE, YUMIKO Admitting Unavailable Dr. Hernandez Mosley Chi Primary Care Provider Dimitri, Dr. Hernandez Alvarez Referring Provider [phone] Reyes Damian Attending Provider Dr. Vincent Villagomez Attending Provider [phone] Hernandez Mosley Chi Primary Care Provider TESTRAESPERANZA, YUMIKO Referring Unavailable BERNARDO, KRIS SERGEY Primary [...] Shabbir Birch Attending Provider [phone] Dr. Shabibr Birch Referring Provider [phone] Dr. Shabbir Birch [...] Attending Provider Marcelino, Dr. Gorman Attending Provider [facility] [place][Note 2], Dr. Gorman Other Provider Dimitri, Dr. Hernandez Alvarez Primary Care Provider [phone] Dimitri, Dr. Hernandez Alvarez Referring Provider Dr. Shabbir Birch Attending Provider Dr. Vincent Villagomez Attending Provider And, Dr. Rodriguez Emergency Provider May, Dr. Coats Admit Provider Unavailabl e May, Dr. Coats Attending Provider Unavail able May, Dr. Coats Other Provider Unavailabl e Leon, Dr. Lopez Other Provider Citlali, Dr. Angel Attending Provider Marcelino, Dr. Gorman Referring Provider [facility] [place][Note 2], Dr. Gorman Attending Provider [facility] [place][Note 2], Dr. Gorman Other Provider Dr. Rian Fierro Attending Provider Dimitri, Dr. Hernandez Alvarez Primary Care Provider Dimitri, Dr. Hernandez Alvarez Referring Provider Dr. Shabbir Birch Attending Provider Dr. Stanley Godwin Other Provider Dr. Hernandez Mosley MD, Chi Primary Care Provider [phone] Dimitri ROSADO, Dr. Hernandez Alvarez Referring Provider [phone] Gautam Abarca Attending Provider Dr. Stanley Godwin DO Attending Provider Dr. Stanley Godwin DO Referring Provider Khang ROSADO, Dr. Boyle Attending Provider Dr. Montana Quiñonez MD Referring Provider Dimitri ROSADO, Dr. Hernandez Alvarez Primary Care Provider Dimitri ROSADO, Dr. Hernandez Alvarez Referring Provider Dimitri ROSADO, Dr. Hernandez Alvarez Attending Provider [phone] Dimitri ROSADO, Dr. Hernandez Alvarez Primary Care Provider Dimitri ROSADO, Dr. Hernandez Alvarez Referring Provider Khang ROSADO, Dr. Boyle Attending Provider Khang ROSADO, Dr. Boyle Referring Provider Citlali TOSCANO, Dr. Angel Attending Provider Citlali TOSCANO, Dr. Angel Referring Provider Jacki ROSADO, Dr. Gonzales Emergency Provider Jacki ROSADO, Dr. Gonzales Emergency Provider William ROSADO, Dr. Rodriguez Admit Provider William ROSADO, Dr. Rodriguez Attending Provider William ROSADO, Dr. Rodriguez Other Provider Annable ROSADO, Dr. Coats Attending Provider Unavaila hilario Benson MD, Dr. Gorman Other Provider Citlali TOSCANO, Dr. Angel Other Provider Danny TRANSACTIONAL PARALEGAL-CAmber Other Provider Rian TRANSACTIONAL PARALEGAL-C, Emmy Other Provider Apple Clark Other Provider Annabel ROSADO, Dr. Coats Other Provider Unavailable Rian TRANSACTIONAL PARALEGAL-C, Emmy Attending Provider Dimitri ROSADO, Dr. Hernandez Alvarez Primary Care Physician [phone] Khang ROSADO, Dr. Boyle Attending Physician Dimitri ROSADO, Dr. Hernandez Alvarez Referring Provider Citlali TOSCANO, Dr. Angel Attending Physician Jacki ROSADO, Dr. Gonzales Emergency Department Phys ician William ROSADO, Dr. Rodriguez Admitting Physician William ROSADO, Dr. Rodriguez Nurse Practitioner Annabel ROSADO, Dr. Coats Attending Physician Unavail able Marcelino ROSADO, Dr. Gorman Nurse Practitioner Citlali DO, Dr. Angel Nurse Practitioner Danny TRANSACTIONAL PARALEGAL-C, Amber Nurse Practitioner [phone] Rian TRANSACTIONAL PARALEGAL-C, Emmy Nurse Practitioner Apple Clark Nurse Practitioner Annabel ROSADO, Dr. Coats Nurse Practitioner Unavailjackie Jin MD, Dr. Coats Referring Provider Unavailjackie Modi TRANSACTIONAL PARALEGAL-C, Emmy Attending Physician Dimitri, Hernandez Chi Primary Care Unavailable Jorge L Jin Referring Unavailable Emmy Modi Attending Unavailable Jennifer Dunne Consulting Unavailable Jennifer Dunne Admitting Unavailable Marcelino, Sherif Consulting Unavailable Friend, Stanley Consulting Unavailable Danny, Amber Consulting Unavailable Emmy Modi Consulting Unavailable Apple Snow Consulting Unavailable Jorge L Jin Consulting Unavailable FriendStanley Attending Unavailable Friend, Stanley Referring Unavailable Dimitri, Hernandez Chi Primary Care Unavailable Dimitri, Hernandez Chi Referring Unavailable Dimitri, Hernandez Chi Primary Care Unavailable Dimitri, Hernandez Chi Attending Unavailable Jorge L Jin Attending Unavailable Dimitri, Hernandez Chi Referring Unavailable FriendStanley Attending Unavailable Dimitri, Hernandez Chi Primary Care Unavailable Jennifer Dunne Consulting Unavailable Dimitri, Hernandez Chi Primary Care Unavailable Jorge L Jin Attending Unavailable William, Jennifer Admitting Unavailable Marcelino, Sherif Consulting Unavailable Friend, Stanley Consulting Unavailable Amber Delgado Consulting Unavailable Emmy Modi Consulting Unavailable Apple Snow Consulting Unavailable Friend, Stanley Referring Unavailable Friend Stanley Attending Unavailable Dimitri, Hernandez Chi Primary Care Unavailable Friend Stanley Attending Unavailable Dimitri, Hernandez Chi Primary Care Unavailable Dimitri, Hernandez Chi Referring Unavailable Emmy Modi Attending Unavailable Dimitri, Hernandez Chi Primary Care Unavailable Dimitri, Hernandez Chi Primary Care Unavailable Montana Quiñonez Referring Unavailable Montana Quiñonez Attending Unavailable Dimitri, Hernandez Chi Primary Care Unavailable Montana Quiñonez Referring Unavailable Montana Quiñonez Attending Unavailable Dimitri, Hernandez Chi Attending Unavailable Dimitri, Hernandez Chi Primary Care Unavailable Friend, Stanley Attending Unavailable Friend, Stanley Referring Unavailable Dimitri, Hernandez Chi Primary Care Unavailable Dimitri, Hernandez Chi Referring Unavailable Dimitri, Hernandez Chi Primary Care Unavailable Gautam Abarca Attending Unavailable Dimitri, Hernandez Chi Referring Unavailable Friend, Stanley Attending Unavailable Dimitri, Hernandez Chi Primary Care Unavailable Dimitri, Hernandez Chi Referring Unavailable Friend, Stanley Attending Unavailable Dimitri, Hernandez Chi Primary Care Unavailable Jennifer Dunne Attending Unavailable Allergies Allergy Classification Reported Allergen(s) Allergy Type Date of Onset Reaction(s) Facility (12 sources) Adhesive Tape; Translations: [ADHESIVE TAPE (ROSINS)] Propensity to adverse reactions (disorder) 6 Rash [facility] Other [place] [facility] (20 sources) Adhesive Tape; Translations: [adhesive tape] Allergy to substance 1 blistering [facility] Comment on above: has allergy to adhes adeel in paper tape (15 sources) BEE STING; Translations: [BEE STING] Allergy to substance 0 Swelling [facility] Work Phone: (20 sources) bee venom protein (honey bee) Allergy to substance 3 Swelling [facility] (1 source) bee venom protein (honey bee) Drug allergy (disorder) 5 [facility] Repository Medications Current Medications Medication Drug Class(es) Dates Sig (Normalized) Sig (Original) Acidophilus-Pectin, [place] 25 million cell -100 mg Tablet (8 sources) Start: 09-26-2023 take 1 tablet by mouth twice daily Acidophilus-Pectin , [place] 25 million cell -100 mg Tablet Active 2 {tbl} PO TWICE A DAY 0 0 September 26, 2023 1:00am Sito-mvs-[id number]. Probiotic. At least for 2 week. Start: 09-26-2023 take 1 tablet by karyn th twice daily Acidophilus-Pectin, [place] 25 million cell -100 mg Tablet Active 2 {tbl} PO TWICE A DAY 0 September 26, 2023 1:00am Zmwr-[id number]. Probiotic. At least for 2 week. amLODIPine 5 mg oral tablet (20 sources) Dihydropyridine Calcium Channel Tresa Start: 11-09-2023 take 1 tablet by mouth at bedtime Start: 01-03-2018 End: 11-09-2023 take 2.5 mg [...] tablet Discontinued 5 mg PO DAILY 30 October 28, 2017 12:00am January 03, 2018 [...] three times daily as needed for pain Start: 09-26-2023 End: 11-09-2023 take 1 capsule by mouth three times daily before mealtime as needed Dicyclomine 10 mg Capsule Discontinued 10 mg PO THREE TIMES DAILY BEFORE MEALS as needed for ABDOMINAL CRAMPS September 26, 2023 1:00am November 09, 2023 3:20pm docusate sodium 50 mg / sennosides, nursing home 8.6 mg oral tablet (2 sources) Start: 03-29-2025 DULoxetine 30 mg delayed release oral capsule (20 sources) Serotonin and Norepinephrine Reuptake Inhibitor Start: 04-22-2025 take 1 capsule by mouth once daily Start: 02-12-2024 End: 04-22-2025 take 1 capsule by mouth once daily Duloxetine 30 mg capsule,delayed release(DR/EC) Discontinued 30 mg PO DAILY 30 2 November 15, 2024 2:36pm November 18, 2024 1:25pm furosemide 20 mg oral tablet (20 sources) Loop Diuretic Start: 01-12-2023 take 1 tablet by mouth once daily lactobacillus acidophilus [id number] unt / pectin 100 mg oral tablet (9 sources) Start: 09-26-2023 take 1 tablet by mouth twice daily ondansetron 4 mg disintegrating oral tablet (2 sources) Serotonin-3 Receptor Antagonist Start: 12-22-2021 take 4 mg by mouth every eight hours as needed Ondansetron Active 4 MG PO EVERY 8 HOURS NEEDED December 22, 2021 11:48am pantoprazole 40 mg delayed release oral tablet (20 sources) Proton Pump Inhibitor Start: 03-23-2016 End: 08-09-2022 take 1 tablet by mouth once daily Comment on above: Take 1 tablet by karyn once daily. rOPINIRole 0.25 mg oral tablet (20 sources) Nonergot Dopamine Agonist Start: 08-09-2022 take 0.5 mg by mouth at bedtime Ropinirole Active 0.5 MG PO AT BEDTIME August 09, 2022 1:00am Start: 06-29-2017 take 2 tablets by mouth at bed time Comment on above: Take 2 tablets by mo [facility] daily at bedtime. Sod Sulf-Pot Chloride-Mag Sulf (1 source) Start: 04-17-2025 tiZANidine 4 mg oral tablet (4 sources) Central alpha-2 Adrenergic Agonist Start: 03-25-2025 take 1 tablet by mouth twice daily as needed for muscle spasms 1 ml ustekinumab 90 mg/ml prefilled syringe (11 sources) Interleukin-12 Antagonist, Interleukin-23 Antagonist Start: 03-11-2024 End: 03-26-2025 venlafaxine 37.5 mg oral tablet (20 sources) Serotonin and Norepinephrine Reuptake Inhibitor Start: 03-20-2016 take 2 tablets by mouth at bedtime Start: 03-20-2016 take 75 mg by mouth [...] Sig (Original) acetaminophen 500 mg oral tablet (20 sources) Start: 06-21-2023 End: 03-06-2025 take 2 [...] DAILY NEEDED as needed for Pain 20 January 03, 2018 12:00am August 21, 2018 [...] HOURS as needed for pain 40 10 December 02, 2022 December 11, 2022 12:00am [...] TABLET PO EVERY 6 HOURS 40 10 November 21, 2022 December 01, 2022 12:05am [...] PO EVERY 6 HOURS 40 10 October 31, 2022 November 10, 2022 12:05am Start: 10-14-2022 End: 10-30-2022 Oxycodone-Acetaminophen 5-32 5 mg tablet Discontinued 1 {tbl} PO EVERY 6 HOURS as needed for pain 40 10 0 October 20, 2022 October 29, 2022 12:00am October 30, 2022 12:04am Status post lumbar spinal fusion Arthrodesis status Start: 10-14-2022 End: 10-30-2022 take 1 tablet by mouth every six hours Oxycodone-Acetaminophen Discontinued 1 TABLET PO EVERY 6 HOURS 40 10 October 20, 2022 October 29, 2022 11:04pm amoxicillin 500 mg oral tablet (9 sources) Penicillin-class Antibacterial Start: 06-24-2024 End: 10-04-2024 take 1 tablet by mouth three times daily Amoxicillin 500 mg tablet Discontinued 500 mg PO THREE TIMES A DAY 30 0 June 24, 2024 1:00am October 04, 2024 2:54pm amoxicillin 875 mg / clavulanate 125 mg oral tablet (2 sources) Penicillin-class Antibacterial Start: 03-29-2025 End: 04-17-2025 Amoxicillin-Pot Clavulanate 875-125 mg tablet Discontinued 1 {tbl} PO Q12H 20 0 March 29, 2025 12:00am April 17, 2025 3:02pm aspirin 81 mg oral tablet (20 sources) Platelet Aggregation Inhibitor, Nonsteroidal Anti-inflammatory Drug Start: 06-21-2023 End: 08-21-2023 take 1 capsule by mouth twice daily Aspirin 81 mg capsule Discontinued 81 mg PO TWICE A DAY 30 0 June 21, 2023 1:00am August 21, 2023 12:32pm To prevent blood clot budesonide 3 mg delayed release oral capsule (9 sources) Corticosteroid Start: 11-23-2023 End: 05-03-2024 take 2 capsules by mouth once daily Budesonide 3 mg capsule,delayed,e xtend.release Discontinued 6 mg PO DAILY 60 2 November 23, 2023 12:00am May 03, 2024 10:44am Take two 3mg caps daily celecoxib 100 mg oral capsule (19 sources) Nonsteroidal Anti-inflammatory Drug Start: 08-04-2023 End: 08-21-2023 take 1 capsule by mouth twice daily Celecoxib (Celebrex) 100 mg capsule Discontinued 100 mg PO TWICE A DAY 28 0 August 04, 2023 1:00am August 21, 2023 12:33pm cephalexin 500 mg oral capsule (20 sources) Cephalosporin Antibacterial Start: 06-21-2023 End: 08-21-2023 Cephalexin 500 mg capsule Discontinued 1000 mg PO EVERY 8 HOURS 4 June 21, [...] DAY as needed for anxiety 30 10 October 14, 2022 12:00am October 23, 2022 [...] above: Take 1 capsule by [facility] twice a week. (FOR EXAMPLE ONE CAPSULE [...] 2017 11:33am hydrocortisone 20 mg oral tablet (9 sources) Corticosteroid Start: 02-12-2024 End: 10-04-2024 take 1 tablet by mouth twice daily Hydrocortisone 20 mg tablet Discontinued 20 mg PO TWICE A DAY 60 0 February 12, 2024 12:00am October 04, 2024 2:55pm hyoscyamine sulfate 0.125 mg oral tablet (9 sources) Start: 08-13-2024 End: 03-25-2025 Hyoscyamine Sulfate 0.125 mg tablet Discontinued 0.125 mg PO 2 to 4 times per day as needed for dyspepsia 30 2 August 13, 2024 1:00am March 25, 2025 3:01pm mesalamine 1200 mg delayed release oral tablet (13 sources) Aminosalicylate Start: 09-28-2023 End: 02-12-2024 take 2 tablets by mouth once daily Mesalamine 1.2 gram tablet,delayed release (DR/EC) Discontinued 2.4 g PO DAILY 56 28 2 September 28, 2023 1:00am February 12, 2024 [...] on package metroNIDAZOLE 500 mg oral tablet (17 sources) Nitroimidazole Antimicrobial Start: 2023 End: 2023 take 1 tablet by mouth every eight hours Metronidazole 500 mg tablet Discontinued 500 mg PO Q8H 15 5 0 September 26, 2023 1:00am November 09, 2023 3:21pm oxyCODONE hydrochloride 5 mg oral tablet (20 sources) Opioid Agonist Start: 2024 End: 2024 take 1 tablet by mouth every four hours as needed for pain Oxycodone 5 mg Tablet Discontinued 5 mg PO EVERY 4 HOURS NEEDED as needed for Pain Score 4-10 20 5 0 March 29, 2025 April 17, 2025 3:03pm Diverticulitis of sigmoid colon Intractable abdominal pain Unspecified abdominal pain Start: 07-14-2023 End: 07-21-2023 take 1 tablet by mouth every eight [...] Other acute postprocedural pain polyethylene glycol 3350 [id number] mg powder for oral solution (17 sources) Osmotic Laxative Start: 09-26-2023 End: 05-03-2024 [...] above: Take 1 capsule by [facility] once daily. traMADol hydrochloride 50 mg oral [...] as needed. Currently not taking while on [place] for pain triamcinolone acetonide 40 mg/ml injectable suspension (3 sources) Corticosteroid Start: 11-29-2018 End: 11-29-2018 Kenalog (triamcinolone acetonide) 40 mg/mL suspension for injection Discontinued 40 MG INTRAARTIC ONCE 1 November 29, 2018 1:02pm November 29, 2018 1:39pm Problems Active Problems Problem Classification Problem Date Documented Da te Episodic/Chronic Abdominal pain (15 sources) Lower abdominal pain; Translations: [Lower abdominal [...] with vomiting, unspecified] 12-30-2021 Episodic Nutritional deficiencies (10 sources) Vitamin D deficiency; Translations: [Vitamin D deficiency, unspecified] Onset: 8 08-08-2017 Chronic Osteoarthritis (18 sources) Osteoarthritis of knee; Translations: [Osteoarthritis of knee, unspecified] Onset: 1 07-19-2021 Chronic Other aftercare (19 sources) Follow-up status; Translations: [Encounter for other [...] Onset: 4 Chronic Other connective tissue disease (20 sources) History of prosthetic unicompartmental arthroplasty of [...] hip] 04-19-2023 Episodic Other connective tissue disease (19 sources) Iliotibial band friction syndrome; Translations: [Iliotibial band syndrome, left leg] 08-04-2023 Episodic Other connective tissue disease (20 sources) Iliotibial band syndrome, left leg; Translations: [Other disorders of muscle, ligament, and fascia] 08-04-2023 Episodic Other connective tissue disease (1 source) Trochanteric bursitis of left hip; Translations: [Trochanteric bursitis, left hip] 04-19-2023 Episodic Other disorders of stomach and duodenum (9 sources) Stricture of duodenum; Translations: [Obstruction of duodenum] Onset: 6 03-28-2016 Chronic Other disorders of stomach and duodenum (13 sources) Stenosis of duodenum; Translations: [Obstruction of duodenum] 09-28-2023 Chronic Other inflammatory condition of skin (20 sources) Psoriatic arthritis; Translations: [Arthropathic psoriasis, unspecified] Onset: 9 08-15-2018 Chronic Other inflammatory condition of skin (1 source) Arthropathic psoriasis, unspecified; Translations: [Psoriatic arthropathy] 11-10-2023 Chronic Other nervous system disorders (20 sources) Acute postoperative pain; Translations: [Other acute [...] Test Name Value Interpretation Reference Range Facility Gastroenterology Visit Repor ton 04-17-2025 Gastroenterology Visit Report [facility] [address] [place] [address] OFFICE VISIT Date of Service: 04/17/25 MR#: [id number] Acct: [id number] Name: JUDY REAGAN ANN Rep #: [id number] : 1960 Provider: [place] Age/Sex: 65/F [place] [facility] [place]: Signed Intake Vital Signs 03/26/25 13:50 04/17/25 15:06 Height 5 ft 4 in 5 ft 4 in Weight: 163 lb 8 oz BMI 28.0 BP 146/98 H Respiration 18 Pulse 78 Temp 97.7 F L Temp Source Temporal Pulse Oximetry (%) 97 Oxygen Delivery Method room air Intake Visit Reasons: HOSP FU Chief Complaint: hospital follow-up Pallet Rectifier Required: No Accompanied by: Self Is patient in pain?: No Allergies adhesive tape Allergy (Severe, Verified 04/17/25 15:14) blistering bee venom protein (honey bee) Allergy (Verified 04/17/25 15:14) Swelling Medications ???Medication ???Instructions ???Recorded ???Confirmed ???Type venlafaxine 37.5 mg tablet 75 mg PO QHS depression 03/20/16 0 04/17/25 History pantoprazole 40 mg tablet,delayed 40 mg PO DAILY GERD 08/09/2203/25 History release ramipril 10 mg capsule 10 mg PO BID HEART 08/09/22 History ropinirole 0.25 mg tablet 0.5 mg PO QHS RESTLESS LEGS 04/17/25 History furosemide 20 mg tablet 20 mg PO DAILY 01/12/23 04/17/25 H istory acidophilus 25 million 2 tab PO BID #0 tabs 09/26/2303/25 Rx cell-pectin, citrus 100 mg tablet amlodipine 5 mg tablet (Norvasc) 5 mg PO QHS 11/09/23 04/17/25 Hist ory dicyclomine 20 mg tablet 20 mg PO TID PRN abdominal pain 04/17/25 History duloxetine 30 mg capsule,delayed 30 mg PO DAILY #30 caps 11/18/24 0 04/17/25 Rx release tizanidine 4 mg tablet 4 mg PO BID PRN PRN muscle spasm 0 03/25/25 04/17/25 History ustekinumab 90 mg/mL subcutaneous 90 mg subcut Q8W #1 mL 03/26/25 0 04/17/25 Rx syringe (Stelara) sennosides 8.6 mg-docusate sodium 1 tab PO BID #60 tabs 03/29/25 Rx 50 mg tablet (Stimulant Laxative Plus) sodium sul 1.479 gram-potas ch See Rx Instructions PO .COMPLEX 04/17/25 Rx 0.188 gram-magnes sul 0.225 gram #28 tabs tablet (Sutab) PFSH Medical History Pain History of Crohn's disease [...] times per week HPI HPI Chief Complaint: hospital follow-up Details: CT 03/25/2025 1. Acute uncomplicated sigmoid diverticulitis. 2. Diffuse hepatic steatosis. GI CONSULT 03/26/2025 65y/o female with reported history of Crohn's disease managed with Ustekinumab since 02/2024 (recent level 4, no antibodies) who has a history of recurrent diverticulitis with 4 episodes in a 12 month period prior to biologic initiation. She now presents with acute onset severe LLQ pain beginning 03/22/2025, worsening despite self initiation of cipro and metronidazole. With CT confirming mild sigmoid diverticulitis. She describes the pain as similar in character to prior diverticulitis episodes, but more severe with associated bloating, and abdominal distention. No associated nausea, vomiting, or change in bowel habits. Denies dysuria; UA negative. Vitals: Low-grade temp 99.9. She was admitted due to uncontrolled pain despite multiple doses of IV analgesia in the ED. Initiated on IV piperacillin-tazobactam. Pain remains only partially responsive to IV morphine and oral oxycodone. She is tolerating oral intake. Last prior diverticulitis episode July 2024, treated with Augmentin. Recommend continued IV Zosyn for acute diverticulitis. She has shown improvement in leukocytosis (17.4 -> 12.6). Monitor vitals, abdominal pain, WBC daily. Recommend soft diet as tolerated. Avoid NSAIDS given history o (more content not included)... Normal [facility] Basic Metabolic Profile (BMP )on 03-30-2025 BUN Normal 4-19 [facility] Comment on above: Result Comment: Canc elled via OM: Order cancelled - Patient discharged Performed By: #### L 500.4050, L100.0100, L501.2450 #### [facility] [address] [place], [address] BUN/CRE Normal 10-20 [facility] Comment on above: Result Comment: Canc elled via OM: Order cancelled - Patient discharged Performed By: #### L 500.4050, L100.0100, L501.2450 #### [facility] [address] [place], [address] Calcium Normal 7.6-11.0 [facility] Comment on above: Result Comment: Canc elled via OM: Order cancelled - Patient discharged Performed By: #### L 500.4050, L100.0100, L501.2450 #### [facility] [address] [place], [address] CL Normal 98-108 [facility] Comment on above: Result Comment: Canc elled via OM: Order cancelled - Patient discharged Performed By: #### L 500.4050, L100.0100, L501.2450 #### [facility] [address] [place], [address] CO2 Normal 21.0-32.0 [facility] Comment on above: Result Comment: Canc elled via OM: Order cancelled - Patient discharged Performed By: #### L 500.4050, L100.0100, L501.2450 #### [facility] [address] [place], [address] CREAT,SERUM Normal 0.70-1.20 [facility] Comment on above: Result Comment: Canc elled via OM: Order cancelled - Patient discharged Performed By: #### L 500.4050, L100.0100, L501.2450 #### [facility] [address] [place], [address] eGFR Normal >60 [facility] Comment on above: Result Comment: Canc elled via OM: Order cancelled - Patient discharged Performed By: #### L 500.4050, L100.0100, L501.2450 #### [facility] [address] [place], [address] GAP Normal 5-15 [facility] Comment on above: Result Comment: Canc elled via OM: Order cancelled - Patient discharged Performed By: #### L 500.4050, L100.0100, L501.2450 #### [facility] [address] [place], [address] GLU Normal 70-99 [facility] Comment on above: Result Comment: Canc elled via OM: Order cancelled - Patient discharged Performed By: #### L 500.4050, L100.0100, L501.2450 #### [facility] [address] [place], [address] Potassium Normal 3.3-5.1 [facility] Comment on above: Result Comment: Canc elled via OM: Order cancelled - Patient discharged Performed By: #### L 500.4050, L100.0100, L501.2450 #### [facility] [address] [place], [address] Basic Metabolic Profile (BMP) Normal 133-145 [facility] Comment on above: Result Comment: Canc elled via OM: Order cancelled - Patient discharged Performed By: #### L 500.4050, L100.0100, L501.2450 #### [facility] [address] [place], [address] CBC W/Diff, Automatedon 09-0 7-2024 Absolute Neut Normal 2.0-7.7 [facility] Comment on above: Result Comment: Canc elled via OM: Order cancelled - Patient discharged Performed By: #### L 500.4050, L100.0100, L501.2450 #### [facility] [address] [place], [address] HCT Normal 37-47 [facility] Comment on above: Result Comment: Canc elled via OM: Order cancelled - Patient discharged Performed By: #### L 500.4050, L100.0100, L501.2450 #### [facility] [address] [place], [address] HGB Normal 12.0-15.0 [facility] Comment on above: Result Comment: Canc elled via OM: Order cancelled - Patient discharged Performed By: #### L 500.4050, L100.0100, L501.2450 #### [facility] [address] [place], [address] MCH Normal 27.0-32.0 [facility] Comment on above: Result Comment: Canc elled via OM: Order cancelled - Patient discharged Performed By: #### L 500.4050, L100.0100, L501.2450 #### [facility] [address] [place], [address] MCHC Normal 32-36 [facility] Comment on above: Result Comment: Canc elled via OM: Order cancelled - Patient discharged Performed By: #### L 500.4050, L100.0100, L501.2450 #### [facility] [address] [place], [address] MCV Normal 81-99 [facility] Comment on above: Result Comment: Canc elled via OM: Order cancelled - Patient discharged Performed By: #### L 500.4050, L100.0100, L501.2450 #### [facility] [address] [place], [address] NEUT% Normal 47-70 [facility] Comment on above: Result Comment: Canc elled via OM: Order cancelled - Patient discharged Performed By: #### L 500.4050, L100.0100, L501.2450 #### [facility] [address] [place], [address] PLT Normal 150-450 [facility] Comment on above: Result Comment: Canc elled via OM: Order cancelled - Patient discharged Performed By: #### L 500.4050, L100.0100, L501.2450 #### [facility] [address] [place], [address] RBC Normal 4.2-5.4 [facility] Comment on above: Result Comment: Canc elled via OM: Order cancelled - Patient discharged Performed By: #### L 500.4050, L100.0100, L501.2450 #### [facility] [address] [place], [address] RDW CV Normal 11.6-14.6 [facility] Comment on above: Result Comment: Canc elled via OM: Order cancelled - Patient discharged Performed By: #### L 500.4050, L100.0100, L501.2450 #### [facility] [address] [place], [address] RDW SD Normal 35.1-43.9 [facility] Comment on above: Result Comment: Canc elled via OM: Order cancelled - Patient discharged Performed By: #### L 500.4050, L100.0100, L501.2450 #### [facility] [address] [place], [address] WBC Normal 4.4-11.0 [facility] Comment on above: Result Comment: Canc elled via OM: Order cancelled - Patient discharged Performed By: #### L 500.4050, L100.0100, L501.2450 #### [facility] [address] [place], [address] Absolute lymphocyte countOrd ered By: Jorge L Jin on 03-29-2025 Lymphocytes Auto (Unsp spec) [#/Vol] 1.67 10*3/uL 0.83-4.51 [facility] Absolute neutrophil countOrd ered By: Jorge L Jin on 03-29-2025 Neutrophils (Bld) [#/Vol] 4.0 10*3/uL 2.0-7.7 [facility] Anion gap in Serum or Plasma Ordered By: Jorge L Jin on 03-29-2025 Anion gap [Moles/Vol] 12 mmol/L 5-15 [facility] Automated lymphocyte count a s percentage of total leukocytesOrdered By: Jorge L Jin on 03-29-2025 Lymphocytes/100 WBC Auto (Unsp spec) 24.7 % - [facility] BUN/creatinine ratioOrdered By: Jorge L Jin on 03-29-2025 Urea nitrogen/Creatinine [Mass ratio] 17.2 mg/mg 10- [facility] Basic Metabolic Profile (BMP )on 03-29-2025 BUN/CRE 17.2 RATIO Normal - [facility] Comment on above: Performed By: #### L 500.4050, L100.0100, L501.2450 #### [facility] [address] [place], [address] Calcium [Mass/Vol] 9.4 mg/dL Normal 7.6-11.0 [facility] Comment on above: Performed By: #### L 500.4050, L100.0100, L501.2450 #### [facility] [address] [place], [address] Chloride [Moles/Vol] 104 mmol/L Normal 98-108 [facility] Comment on above: Performed By: #### L 500.4050, L100.0100, L501.2450 #### [facility] [address] [place], [address] CO2 [Moles/Vol] 22.7 mmol/L Normal 21.0-32.0 [facility] Comment on above: Performed By: #### L 500.4050, L100.0100, L501.2450 #### [facility] [address] [place], [address] Creatinine [Mass/Vol] 0.67 mg/dL Low 0.70-1.20 [facility] Comment on above: Performed By: #### L 500.4050, L100.0100, L501.2450 #### [facility] [address] [place], [address] ECRCL 84.26 ml/min Normal 50-250 [facility] Comment on above: Performed By: #### L 500.4050, L100.0100, L501.2450 #### [facility] [address] [place], [address] GAP 12 Normal 5-15 [facility] Comment on above: Performed By: #### L 500.4050, L100.0100, L501.2450 #### [facility] [address] [place], [address] GFR/1.73 sq M.predicted among non-blacks MDRD (S/P/Bld) [Vol rate/Area] 98 mL/min/{1.73_m2} Normal >60 [facility] Comment on above: Result Comment: mL/m in/1.73m2 CKD-EPI Creatinine Equation (2020) Performed By: #### L 500.4050, L100.0100, L501.2450 #### [facility] [address] [place], [address] Glucose [Mass/Vol] 94 mg/dL Normal 70-99 [facility] Comment on above: Performed By: #### L 500.4050, L100.0100, L501.2450 #### [facility] [address] [place], [address] Potassium [Moles/Vol] 4.3 mmol/L Normal 3.3-5.1 [facility] Comment on above: Result Comment: Hemo lysis present, Results??could be affected. ?? Performed By: #### L 500.4050, L100.0100, L501.2450 #### [facility] [address] [place], [address] Sodium [Moles/Vol] 139 mmol/L Normal 133-145 [facility] Comment on above: Performed By: #### L 500.4050, L100.0100, L501.2450 #### [facility] [address] [place], [address] Urea nitrogen [Mass/Vol] 12 mg/dL Normal 4-19 [facility] Comment on above: Performed By: #### L 500.4050, L100.0100, L501.2450 #### [facility] [address] [place], [address] Basophil percentageOrdered B y: Jorge L Jin on 03-29-2025 Basophils/100 WBC (Bld) 0.6 % 0-1 [facility] CBC W/Diff, Automatedon Absolute Lymph 1.67 X10 3/uL Normal 0.83-4.51 [facility] Comment on above: Performed By: #### L 500.4050, L100.0100, L501.2450 #### [facility] [address] [place], [address] Absolute Neut 4.0 X10 3/uL Normal 2.0-7.7 [facility] Comment on above: Performed By: #### L 500.4050, L100.0100, L501.2450 #### [facility] [address] [place], [address] Basophils/100 WBC (Bld) 0.6 % Normal 0-1 [facility] Comment on above: Performed By: #### L 500.4050, L100.0100, L501.2450 #### [facility] [address] [place], [address] Eosinophils/100 WBC (Bld) 3.5 % Normal 0-5 [facility] Comment on above: Performed By: #### L 500.4050, L100.0100, L501.2450 #### [facility] [address] [place], [address] Erythrocyte distribution width (RBC) [Ratio] 12.4 % Normal 11.6-14.6 [facility] Comment on above: Performed By: #### L 500.4050, L100.0100, L501.2450 #### [facility] [address] [place], [address] Hematocrit (Bld) [Volume fraction] 39.0 % Normal 37-47 [facility] Comment on above: Performed By: #### L 500.4050, L100.0100, L501.2450 #### [facility] [address] [place], [address] Hemoglobin (Bld) [Mass/Vol] 12.8 g/dL Normal 12.0-15.0 [facility] Comment on above: Performed By: #### L 500.4050, L100.0100, L501.2450 #### [facility] [address] [place], [address] IG% 0.300 Normal 0.0-0.9 [facility] Comment on above: Result Comment: IG% - Immature Granulocytes (promyelocytes, myelocytes and metamyelocytes) > 1% indicates that a LEFT SHIFT is Present. Performed By: #### L 500.4050, L100.0100, L501.2450 #### [facility] [address] [place], [address] Lymphocytes/100 WBC (Bld) 24.7 % Normal 19-41 [facility] Comment on above: Performed By: #### L 500.4050, L100.0100, L501.2450 #### [facility] [address] [place], [address] MCH (RBC) [Entitic mass] 31.2 pg Normal 27.0-32.0 [facility] Comment on above: Performed By: #### L 500.4050, L100.0100, L501.2450 #### [facility] [address] [place], [address] MCHC (RBC) [Mass/Vol] 32.8 g/dL Normal 32-36 [facility] Comment on above: Performed By: #### L 500.4050, L100.0100, L501.2450 #### [facility] [address] [place], [address] MCV (RBC) [Entitic vol] 95.1 fL Normal 81-99 [facility] Comment on above: Performed By: #### L 500.4050, L100.0100, L501.2450 #### [facility] [address] [place], [address] Monocytes/100 WBC (Bld) 12.0 % High 0-10 [facility] Comment on above: Performed By: #### L 500.4050, L100.0100, L501.2450 #### [facility] [address] [place], [address] Neutrophils/100 WBC (Bld) 58.9 % Normal 47-70 [facility] Comment on above: Performed By: #### L 500.4050, L100.0100, L501.2450 #### [facility] [address] [place], [address] Nucleated RBC (Bld) [#/Vol] 0 10*3/uL Normal 0-5 [facility] Comment on above: Performed By: #### L 500.4050, L100.0100, L501.2450 #### [facility] [address] [place], [address] Platelet mean volume (Bld) [Entitic vol] 9.9 fL Normal 6.2-12.0 [facility] Comment on above: Performed By: #### L 500.4050, L100.0100, L501.2450 #### [facility] [address] [place], [address] Platelets (Bld) [#/Vol] 289 10*3/uL Normal 150-450 [facility] Comment on above: Performed By: #### L 500.4050, L100.0100, L501.2450 #### [facility] [address] [place], [address] RBC (Bld) [#/Vol] 4.10 10*6/uL Low 4.2-5.4 [facility] Comment on above: Performed By: #### L 500.4050, L100.0100, L501.2450 #### [facility] [address] [place], [address] RDW SD 43.5 fl Normal 35.1-43.9 [facility] Comment on above: Performed By: #### L 500.4050, L100.0100, L501.2450 #### [facility] [address] [place], [address] WBC (Bld) [#/Vol] 6.8 10*3/uL Normal 4.4-11.0 [facility] Comment on above: Performed By: #### L 500.4050, L100.0100, L501.2450 #### [facility] [address] [place], [address] Carbon dioxide, total [Moles /volume] in Central venous bloodOrdered By: Jorge L Jin on 03-29-2025 CO2 [Moles/Vol] 22.7 mmol/L 21.0-32.0 [facility] Chloride assayOrdered By: Manjinder Jin on 03-29-2025 Chloride [Moles/Vol] 104 mmol/L 98-108 [facility] Eosinophil percentageOrdered By: Jorge L Jin on 03-29-2025 Eosinophils/100 WBC (Bld) 3.5 % 0-5 [facility] Erythrocyte distribution wid th ratioOrdered By: Jorge L Jin on 03-29-2025 Erythrocyte distribution width (RBC) [Ratio] 12.4 % 11.6-14.6 [facility] Erythrocyte distribution wid th standard deviationOrdered By: Jorge L Jin on 03-29-2025 Erythrocyte distribution width (RBC) [Ratio] 43.5 fl 35.1-43.9 [facility] Glomerular filtration rate ( GFR) estimation/1.73 sq m using serum, plasma, or whole bOrdered By: Jorge L Jin on 03-29-2025 GFR/1.73 sq M.predicted among non-blacks MDRD (S/P/Bld) [Vol rate/Area] 98 mL/min/{1.73_m2} >60 [facility] Comment on above: mL/min/1.73m2 CKD-EP I Creatinine Equation (2020) Hematocrit Auto (Bld) [Volum e fraction]Ordered By: Jorge L Jin on 03-29-2025 Hematocrit (Bld) [Volume fraction] 39.0 % 37-47 [facility] Hemoglobin measurementOrdere d By: Jorge L Jin on 03-29-2025 Hemoglobin (Bld) [Mass/Vol] 12.8 g/dL 12.0-15.0 [facility] Immature granulocytes/100 WB C Auto (Bld)Ordered By: Jorge L Jin on 03-29-2025 Immature granulocytes/100 WBC (Bld) 0.300 % 0.0-0.9 [facility] Comment on above: IG% - Immature Granu locytes (promyelocytes, myelocytes and metamyelocytes) > 1% indicates that a LEFT SHIFT is Present. MCV (mean corpuscular volume ) determinationOrdered By: Jorge L Jin on 03-29-2025 MCV (RBC) [Entitic vol] 95.1 fL 81-99 [facility] Mean corpuscular hemoglobin (MCH) determinationOrdered By: Jorge L Jin on 03-29-2025 MCH (RBC) [Entitic mass] 31.2 pg 27.0-32.0 [facility] Mean corpuscular hemoglobin concentration (MCHC) determinationOrdered By: Jorge L Jin on 03-29-2025 MCHC (RBC) [Mass/Vol] 32.8 g/dL 32-36 [facility] Mean platelet volume determi nationOrdered By: Jorge L Jin on 03-29-2025 Platelet mean volume (Bld) [Entitic vol] 9.9 fL 6.2-12.0 [facility] Monocyte percentageOrdered B y: Jorge L Jin on 03-29-2025 Monocytes/100 WBC (Bld) 12.0 % High 0-10 [facility] Neutrophil percentageOrdered By: Jorge L Jin on 03-29-2025 Neutrophils/100 WBC (Bld) 58.9 % 47-70 [facility] Nucleated red blood cell per centageOrdered By: Jorge L Jin on 03-29-2025 Nucleated RBC/100 WBC (Bld) [Ratio] 0 % 0-5 [facility] Platelet countOrdered By: Manjinder Jin on 03-29-2025 Platelets (Bld) [#/Vol] 289 10*3/uL 150-450 [facility] Potassium measurement (mass/ volume)Ordered By: Jorge L Jin on 03-29-2025 Potassium (Unsp spec) [Mass/Vol] 4.3 mmol/L 3.3-5.1 [facility] Comment on above: Hemolysis present, R esults could be affected. RBC Auto (Bld) [#/Vol]Ordere d By: Jorge L Jin on 03-29-2025 RBC (Bld) [#/Vol] 4.10 10*6/uL Low 4.2-5.4 [facility] Serum creatinine measurement (mass/volume)Ordered By: Jorge L Jin on 03-29-2025 Creatinine [Mass/Vol] 0.67 mg/dL Low 0.70-1.20 [facility] Serum glucose measurement (m ass/volume)Ordered By: Jorge L Jin on 03-29-2025 Glucose [Mass/Vol] 94 mg/dL 70-99 [facility] Serum or plasma calcium elis urement (mass/volume)Ordered By: Jorge L Jin on 03-29-2025 Calcium [Mass/Vol] 9.4 mg/dL 7.6-11.0 [facility] Serum or plasma urea nitroge n measurement (mass/volume)Ordered By: Jorge L Jin on 03-29-2025 Urea nitrogen [Mass/Vol] 12 mg/dL 4-19 [facility] Sodium levelOrdered By: Sukhjinder Jin on 03-29-2025 Sodium [Moles/Vol] 139 mmol/L 133-145 [facility] White blood cell (WBC) count Ordered By: Jorge L Jin on 03-29-2025 WBC (Bld) [#/Vol] 6.8 10*3/uL 4.4-11.0 [facility] Basic Metabolic Profile (BMP )on 03-28-2025 BUN/CRE 15.0 RATIO Normal 10-20 [facility] Comment on above: Performed By: #### L 500.4050, L100.0100, L501.2450 #### [facility] [address] [place], [address] Calcium [Mass/Vol] 9.3 mg/dL Normal 7.6-11.0 [facility] Comment on above: Performed By: #### L 500.4050, L100.0100, L501.2450 #### [facility] [address] [place], [address] Chloride [Moles/Vol] 105 mmol/L Normal 98-108 [facility] Comment on above: Performed By: #### L 500.4050, L100.0100, L501.2450 #### [facility] [address] [place], [address] CO2 [Moles/Vol] 25.7 mmol/L Normal 21.0-32.0 [facility] Comment on above: Performed By: #### L 500.4050, L100.0100, L501.2450 #### [facility] [address] [place], [address] Creatinine [Mass/Vol] 0.60 mg/dL Low 0.70-1.20 [facility] Comment on above: Performed By: #### L 500.4050, L100.0100, L501.2450 #### [facility] [address] [place], [address] ECRCL 94.09 ml/min Normal 50-250 [facility] Comment on above: Performed By: #### L 500.4050, L100.0100, L501.2450 #### [facility] [address] [place], [address] GAP 10 Normal 5-15 [facility] Comment on above: Performed By: #### L 500.4050, L100.0100, L501.2450 #### [facility] [address] [place], [address] GFR/1.73 sq M.predicted among non-blacks MDRD (S/P/Bld) [Vol rate/Area] 101 mL/min/{1.73_m2} Normal >60 [facility] Comment on above: Result Comment: mL/m in/1.73m2 CKD-EPI Creatinine Equation (2020) Performed By: #### L 500.4050, L100.0100, L501.2450 #### [facility] [address] [place], [address] Glucose [Mass/Vol] 102 mg/dL High 70-99 [facility] Comment on above: Performed By: #### L 500.4050, L100.0100, L501.2450 #### [facility] [address] [place], [address] Potassium [Moles/Vol] 4.5 mmol/L Normal 3.3-5.1 [facility] Comment on above: Performed By: #### L 500.4050, L100.0100, L501.2450 #### [facility] [address] [place], [address] Sodium [Moles/Vol] 140 mmol/L Normal 133-145 [facility] Comment on above: Performed By: #### L 500.4050, L100.0100, L501.2450 #### [facility] [address] [place], [address] Urea nitrogen [Mass/Vol] 9 mg/dL Normal 4-19 [facility] Comment on above: Performed By: #### L 500.4050, L100.0100, L501.2450 #### [facility] [address] [place], [address] CBC W/Diff, Automatedon 09-0 5-2025 Absolute Lymph 1.72 X10 3/uL Normal 0.83-4.51 [facility] Comment on above: Performed By: #### L 500.4050, L100.0100, L501.2450 #### [facility] [address] [place], [address] Absolute Neut 3.6 X10 3/uL Normal 2.0-7.7 [facility] Comment on above: Performed By: #### L 500.4050, L100.0100, L501.2450 #### [facility] [address] [place], [address] Basophils/100 WBC (Bld) 0.5 % Normal 0-1 [facility] Comment on above: Performed By: #### L 500.4050, L100.0100, L501.2450 #### [facility] [address] [place], [address] Eosinophils/100 WBC (Bld) 3.6 % Normal 0-5 [facility] Comment on above: Performed By: #### L 500.4050, L100.0100, L501.2450 #### [facility] [address] [place], [address] Erythrocyte distribution width (RBC) [Ratio] 12.6 % Normal 11.6-14.6 [facility] Comment on above: Performed By: #### L 500.4050, L100.0100, L501.2450 #### [facility] [address] [place], [address] Hematocrit (Bld) [Volume fraction] 34.7 % Low 37-47 [facility] Comment on above: Performed By: #### L 500.4050, L100.0100, L501.2450 #### [facility] [address] [place], [address] Hemoglobin (Bld) [Mass/Vol] 11.4 g/dL Low 12.0-15.0 [facility] Comment on above: Performed By: #### L 500.4050, L100.0100, L501.2450 #### [facility] [address] [place], [address] IG% 0.500 Normal 0.0-0.9 [facility] Comment on above: Result Comment: IG% - Immature Granulocytes (promyelocytes, myelocytes and metamyelocytes) > 1% indicates that a LEFT SHIFT is Present. Performed By: #### L 500.4050, L100.0100, L501.2450 #### [facility] [address] [place], [address] Lymphocytes/100 WBC (Bld) 26.9 % Normal 19-41 [facility] Comment on above: Performed By: #### L 500.4050, L100.0100, L501.2450 #### [facility] [address] [place], [address] MCH (RBC) [Entitic mass] 31.3 pg Normal 27.0-32.0 [facility] Comment on above: Performed By: #### L 500.4050, L100.0100, L501.2450 #### [facility] [address] [place], [address] MCHC (RBC) [Mass/Vol] 32.9 g/dL Normal 32-36 [facility] Comment on above: Performed By: #### L 500.4050, L100.0100, L501.2450 #### [facility] [address] [place], [address] MCV (RBC) [Entitic vol] 95.3 fL Normal 81-99 [facility] Comment on above: Performed By: #### L 500.4050, L100.0100, L501.2450 #### [facility] [address] [place], [address] Monocytes/100 WBC (Bld) 11.9 % High 0-10 [facility] Comment on above: Performed By: #### L 500.4050, L100.0100, L501.2450 #### [facility] [address] [place], [address] Neutrophils/100 WBC (Bld) 56.6 % Normal 47-70 [facility] Comment on above: Performed By: #### L 500.4050, L100.0100, L501.2450 #### [facility] [address] [place], [address] Nucleated RBC (Bld) [#/Vol] 0 10*3/uL Normal 0-5 [facility] Comment on above: Performed By: #### L 500.4050, L100.0100, L501.2450 #### [facility] [address] [place], [address] Platelet mean volume (Bld) [Entitic vol] 9.9 fL Normal 6.2-12.0 [facility] Comment on above: Performed By: #### L 500.4050, L100.0100, L501.2450 #### [facility] [address] [place], [address] Platelets (Bld) [#/Vol] 262 10*3/uL Normal 150-450 [facility] Comment on above: Performed By: #### L 500.4050, L100.0100, L501.2450 #### [facility] [address] [place], [address] RBC (Bld) [#/Vol] 3.64 10*6/uL Low 4.2-5.4 [facility] Comment on above: Performed By: #### L 500.4050, L100.0100, L501.2450 #### [facility] [address] [place], [address] RDW SD 44.1 fl High 35.1-43.9 [facility] Comment on above: Performed By: #### L 500.4050, L100.0100, L501.2450 #### [facility] [address] [place], [address] WBC (Bld) [#/Vol] 6.4 10*3/uL Normal 4.4-11.0 [facility] Comment on above: Performed By: #### L 500.4050, L100.0100, L501.2450 #### [facility] [address] [place], [address] Abd Decub and/or Erect(Leah blon 03-27-2025 Abd Decub and/or Erect([facility] [address] [place] [address] Abd Decub and/or Erect(Portabl MR#: [id number] Acct: [id number] Name: JUDY REAGAN Rep #: [id number] : 1960 F 65 From: Getachew jimenez MD PCP: Dr. Hernandez Mosley MD Status: ADM IN Study: Abd Decub and/or Erect(Portabl Date of Exam: 0 03/27/25 Exam# [id number] Ordering Dr: Jorge L Jin MD PROCEDURE: ABD DECUB AND/OR ERECT(PORTABL 03/27/2025 REASON FOR EXAM: ABDOMINAL DISTENTION TECHNIQUE: Procedure Code: [id number] Modality: DX Procedure: ABD DECUB AND/OR ERECT(PORTABL COMPARISON: Prior CT scan of the abdomen and pelvis dated March 25, 2025. FINDINGS: Bowel gas: Moderate amount of fecal material is seen in the colon. This is worse in the right hemicolon. No evidence of small-bowel obstruction. Calcifications: No suspicious calcifications. Bones: Prior fusion at the L4-L5 level. Other: RAD/Abd Decub and/or Erect(Portabl IMPRESSION: Moderate amount of fecal material is seen in the colon. [id number]: Dr. Jorge L Jin MD; Dr. Hernandez Mosley MD Orthophotography Technician: Signed Normal [facility] Basic Metabolic Profile (BMP )on 03-27-2025 BUN/CRE 10.0 RATIO Normal 10-20 [facility] Comment on above: Performed By: #### L 500.4050, L100.0100, L501.2450 #### [facility] [address] [place], [address] Calcium [Mass/Vol] 8.9 mg/dL Normal 7.6-11.0 [facility] [facility] Comment on above: Performed By: #### L 500.4050, L100.0100, L501.2450 #### [facility] [address] [place], [address] Chloride [Moles/Vol] 103 mmol/L Normal 98-108 [facility] Comment on above: Performed By: #### L 500.4050, L100.0100, L501.2450 #### [facility] [address] [place], [address] CO2 [Moles/Vol] 23.2 mmol/L Normal 21.0-32.0 [facility] Comment on above: Performed By: #### L 500.4050, L100.0100, L501.2450 #### [facility] [address] [place], [address] Creatinine [Mass/Vol] 0.61 mg/dL Low 0.70-1.20 [facility] Comment on above: Performed By: #### L 500.4050, L100.0100, L501.2450 #### [facility] [address] [place], [address] ECRCL 92.55 ml/min Normal 50-250 [facility] Comment on above: Performed By: #### L 500.4050, L100.0100, L501.2450 #### [facility] [address] [place], [address] GAP 10 Normal 5-15 [facility] Comment on above: Performed By: #### L 500.4050, L100.0100, L501.2450 #### [facility] [address] [place], [address] GFR/1.73 sq M.predicted among non-blacks MDRD (S/P/Bld) [Vol rate/Area] 101 mL/min/{1.73_m2} Normal >60 [facility] Comment on above: Result Comment: mL/m in/1.73m2 CKD-EPI Creatinine Equation (2020) Performed By: #### L 500.4050, L100.0100, L501.2450 #### [facility] [address] [place], [address] Glucose [Mass/Vol] 116 mg/dL High 70-99 [facility] Comment on above: Performed By: #### L 500.4050, L100.0100, L501.2450 #### [facility] [address] [place], [address] Potassium [Moles/Vol] 4.3 mmol/L Normal 3.3-5.1 [facility] Comment on above: Performed By: #### L 500.4050, L100.0100, L501.2450 #### [facility] [address] [place], [address] Sodium [Moles/Vol] 136 mmol/L Normal 133-145 [facility] Comment on above: Performed By: #### L 500.4050, L100.0100, L501.2450 #### [facility] [address] [place], [address] Urea nitrogen [Mass/Vol] 6 mg/dL Normal 4-19 [facility] Comment on above: Performed By: #### L 500.4050, L100.0100, L501.2450 #### [facility] [address] [place], [address] CBC W/Diff, Automatedon 09-0 -2024 Absolute Lymph 1.71 X10 3/uL Normal 0.83-4.51 [facility] Comment on above: Performed By: #### L 500.4050, L100.0100, L501.2450 #### [facility] [address] [place], [address] Absolute Neut 7.0 X10 3/uL Normal 2.0-7.7 [facility] Comment on above: Performed By: #### L 500.4050, L100.0100, L501.2450 #### [facility] [address] [place], [address] Basophils/100 WBC (Bld) 0.2 % Normal 0-1 [facility] Comment on above: Performed By: #### L 500.4050, L100.0100, L501.2450 #### [facility] [address] [place], [address] Eosinophils/100 WBC (Bld) 1.6 % Normal 0-5 [facility] Comment on above: Performed By: #### L 500.4050, L100.0100, L501.2450 #### [facility] [address] [place], [address] Erythrocyte distribution width (RBC) [Ratio] 12.6 % Normal 11.6-14.6 [facility] Comment on above: Performed By: #### L 500.4050, L100.0100, L501.2450 #### [facility] [address] [place], [address] Hematocrit (Bld) [Volume fraction] 34.9 % Low 37-47 [facility] Comment on above: Performed By: #### L 500.4050, L100.0100, L501.2450 #### [facility] [address] [place], [address] Hemoglobin (Bld) [Mass/Vol] 11.5 g/dL Low 12.0-15.0 [facility] Comment on above: Performed By: #### L 500.4050, L100.0100, L501.2450 #### [facility] [address] [place], [address] IG% 0.500 Normal 0.0-0.9 [facility] Comment on above: Result Comment: IG% - Immature Granulocytes (promyelocytes, myelocytes and metamyelocytes) > 1% indicates that a LEFT SHIFT is Present. Performed By: #### L 500.4050, L100.0100, L501.2450 #### [facility] [address] [place], [address] Lymphocytes/100 WBC (Bld) 17.2 % Low 19-41 [facility] Comment on above: Performed By: #### L 500.4050, L100.0100, L501.2450 #### [facility] [address] [place], [address] MCH (RBC) [Entitic mass] 31.3 pg Normal 27.0-32.0 [facility] Comment on above: Performed By: #### L 500.4050, L100.0100, L501.2450 #### [facility] [address] [place], [address] MCHC (RBC) [Mass/Vol] 33.0 g/dL Normal 32-36 [facility] Comment on above: Performed By: #### L 500.4050, L100.0100, L501.2450 #### [facility] [address] [place], [address] MCV (RBC) [Entitic vol] 95.1 fL Normal 81-99 [facility] Comment on above: Performed By: #### L 500.4050, L100.0100, L501.2450 #### [facility] [address] [place], [address] Monocytes/100 WBC (Bld) 10.5 % High 0-10 [facility] Comment on above: Performed By: #### L 500.4050, L100.0100, L501.2450 #### [facility] [address] [place], [address] Neutrophils/100 WBC (Bld) 70.0 % Normal 47-70 [facility] Comment on above: Performed By: #### L 500.4050, L100.0100, L501.2450 #### [facility] [address] [place], [address] Nucleated RBC (Bld) [#/Vol] 0 10*3/uL Normal 0-5 [facility] Comment on above: Performed By: #### L 500.4050, L100.0100, L501.2450 #### [facility] [address] [place], [address] Platelet mean volume (Bld) [Entitic vol] 10.1 fL Normal 6.2-12.0 [facility] Comment on above: Performed By: #### L 500.4050, L100.0100, L501.2450 #### [facility] [address] [place], [address] Platelets (Bld) [#/Vol] 266 10*3/uL Normal 150-450 [facility] Comment on above: Performed By: #### L 500.4050, L100.0100, L501.2450 #### [facility] [address] [place], [address] RBC (Bld) [#/Vol] 3.67 10*6/uL Low 4.2-5.4 [facility] Comment on above: Performed By: #### L 500.4050, L100.0100, L501.2450 #### [facility] [address] [place], [address] RDW SD 44.1 fl High 35.1-43.9 [facility] Comment on above: Performed By: #### L 500.4050, L100.0100, L501.2450 #### [facility] [address] [place], [address] WBC (Bld) [#/Vol] 10.0 10*3/uL Normal 4.4-11.0 [facility] Comment on above: Performed By: #### L 500.4050, L100.0100, L501.2450 #### [facility] [address] [place], [address] Magnesiumon 03-27-2025 Magnesium [Mass/Vol] 2.2 mg/dL Normal 1.5-2.2 [facility] Comment on above: Performed By: #### L 500.4050, L100.0100, L501.2450 #### [facility] [address] [place], [address] Magnesium measurement (mass/ volume)Ordered By: Jorge L Jin on 03-27-2025 Magnesium (Unsp spec) [Mass/Vol] 2.2 mg/dL 1.5-2.2 [facility] Phosphoruson 03-27-2025 Phosphate [Mass/Vol] 3.6 mg/dL Normal 2.7-4.5 [facility] Comment on above: Performed By: #### L 500.4050, L100.0100, L501.2450 #### [facility] [address] [place], [address] Basic Metabolic Profile (BMP )on 03-26-2025 BUN/CRE 9.7 RATIO Low 10-20 [facility] Comment on above: Performed By: #### L 500.4050, L100.0100, L501.2450 #### [facility] [address] [place], [address] Calcium [Mass/Vol] 8.8 mg/dL Normal 7.6-11.0 [facility] Comment on above: Performed By: #### L 500.4050, L100.0100, L501.2450 #### [facility] [address] [place], [address] Chloride [Moles/Vol] 102 mmol/L Normal 98-108 [facility] Comment on above: Performed By: #### L 500.4050, L100.0100, L501.2450 #### [facility] [address] [place], [address] CO2 [Moles/Vol] 26.6 mmol/L Normal 21.0-32.0 [facility] Comment on above: Performed By: #### L 500.4050, L100.0100, L501.2450 #### [facility] [address] [place], [address] Creatinine [Mass/Vol] 0.80 mg/dL Normal 0.70-1.20 [facility] Comment on above: Performed By: #### L 500.4050, L100.0100, L501.2450 #### [facility] [address] [place], [address] ECRCL 70.57 ml/min Normal 50-250 [facility] Comment on above: Performed By: #### L 500.4050, L100.0100, L501.2450 #### [facility] [address] [place], [address] GAP 9 Normal 5-15 [facility] Comment on above: Performed By: #### L 500.4050, L100.0100, L501.2450 #### [facility] [address] [place], [address] GFR/1.73 sq M.predicted among non-blacks MDRD (S/P/Bld) [Vol rate/Area] 83 mL/min/{1.73_m2} Normal >60 [facility] Comment on above: Result Comment: mL/m in/1.73m2 CKD-EPI Creatinine Equation (2020) Performed By: #### L 500.4050, L100.0100, L501.2450 #### [facility] [address] [place], [address] Glucose [Mass/Vol] 109 mg/dL High 70-99 [facility] Comment on above: Performed By: #### L 500.4050, L100.0100, L501.2450 #### [facility] [address] [place], [address] Potassium [Moles/Vol] 4.0 mmol/L Normal 3.3-5.1 [facility] Comment on above: Performed By: #### L 500.4050, L100.0100, L501.2450 #### [facility] [address] [place], [address] Sodium [Moles/Vol] 137 mmol/L Normal 133-145 [facility] Comment on above: Performed By: #### L 500.4050, L100.0100, L501.2450 #### [facility] [address] [place], [address] Urea nitrogen [Mass/Vol] 8 mg/dL Normal 4-19 [facility] Comment on above: Performed By: #### L 500.4050, L100.0100, L501.2450 #### [facility] [address] [place], [address] Blood manual differential co mment interpretation (narrative result)Ordered By: Jennifer Dunne on 03-26-2025 Manual differential comment Angel (Bld) [Interp] SCANNED [facility] CBC W/Diff, Automatedon 09-0 SMEAR COMMENT SCANNED Normal [facility] Comment on above: Performed By: #### L 500.4050, L100.0100, L501.2450 #### [facility] [address] [place], [address] MR/CON.PCM.GIon 03-26-2025 MR/CON.PCM.GI [facility] Medical Records Department [address] [place] [address] Consultation - GI 03/26/25 1503 MR#: [id number] Acct: [id number] Name: JUDY REAGAN ANN Rep #: [id number] : 1960 65 From: Emmy Modi [employer] PCP: Dr. Hernandez Mosley MD Status:ADM IN Location: MS3 ML044-8 HPI Consult Data Date of Consult: 03/26/25 HPI Narrative Reason for Consultation: acute diverticulitis HPI Narrative: - pain began this past Monday (03/22/2025), mild tenderness initially, gradual onset, reports this is her typical diverticulitis pain, same quality but intensity is the worst she has ever had - Dicyclomine 20mg did not provide any relief of pain - pain is worse in the LLQ and radiates across lower abdomen and around to back - rating pain 04/02 presently, pain meds are only taking edge off for a short time - last documented bout of diverticulitis was July 2024 - treated with Augmentin - self started Cipro and Flagyl Monday (03/23/2025) had on hand at home - despite ATB pain continued to intensify, kept her up Monday evening and severity of pain, doubled over and come to ER on Monday (03/25/2025) - Tramadol PRN for back pain, 3-5 days a week - tramadol did not help abdominal pain - she is tolerating PO, although reports eating causes increased stabbing gas pain and fecal urgency - presently drinking Pulp smoothie - denies any nausea or emesis - denies any hematochezia or melena Bowel movements are: diarrhea this am, this past week formed and not every day, was having some intermittent episodes of diarrhea, reporting this is her baseline diarrhea being dietary triggered Blood noted in stools: denies Bowel movement urgency present: yes Stool incontinence: infrequent Nocturnal BM's: denies Abdominal pain: yes presently 04/02, cramping before a BM, constant dull pain with intermittent waves of severe stabbing pain Rectal pain: denies Fever: low grade 99.9 Night Sweats: denies Visual changes: denies Mouth sores: denies Joint pain: yes, primarily chronic back and hip pain Skin rashes/Lesions: denies Weight changes: denies Smoking status: denies NSAID use: denies - she reports 4 episodes of diverticulitis within a 12 month period prior to initiating ustekinumab, she has had only one episode (July 2024), treated with Augmentin) prior to current presentation PFSH Medical History Pain History of Crohn's disease Chronic pain GERD (gastroesophageal reflux disease) History of steroid therapy Wears glasses Post-menopausal Anxiety Alcohol use Hx of psoriatic arthritis Restless legs Back pain History of diverticulitis Hx of peptic ulcer Former smoker History of pain when walking Hypertension Osteoarthritis Home Medications ???Medication ???Instructions ???Recorded ???Last Taken ???Type venlafaxine 37.5 mg tablet 75 mg PO QHS depression 03/20/16 0 03/09/25 History pantoprazole 40 mg tablet,delayed 40 mg PO DAILY GERD 08/09/2202/21 History release ramipril 10 mg capsule 10 mg PO BID HEART 08/09/22 History ropinirole 0.25 mg tablet 0.5 mg PO QHS RESTLESS LEGS 03/09/25 History furosemide 20 mg tablet 20 mg PO DAILY 01/12/23 03/09/25 H istory acidophilus 25 million 2 tab PO BID #0 tabs 09/26/2302/21 Rx cell-pectin, citrus 100 mg tablet tramadol 50 mg tablet 50 - 100 mg (1 - 2 x 50 mg) PO Q8H 09/26/23 03/09/25 Rx PRN pain #10 tabs amlodipine 5 mg tablet (Norvasc) 5 mg PO QHS 11/09/23 03/09/25 Hist ory dicyclomine 20 mg tablet 20 mg PO TID PRN abdominal pain Unknown History duloxetine 30 mg capsule,delayed 30 mg PO DAILY #30 caps 11/18/24 0 03/09/25 Rx release tizanidine 4 mg tablet 4 mg PO BID PRN PRN muscle spasm 0 03/25/25 Unknown History ustekinumab 90 mg/mL subcutaneous 90 mg subcut Q8W #1 mL 03/26/25 U nknown Rx syringe (Stelara) Allergy/AdvReac Type Severity Reaction Status Date / [...] holidays/special occasions only substance use type: does (more content not included)... Normal [facility] Abdomen/Pelvis W IV Cont ONL Yon 03-25-2025 Abdomen/Pelvis W IV Cont ONLY [facility] [address] [place], [place] [address] Abdomen/Pelvis W IV Cont ONLY MR#: [id number] Acct: [id number] Name: JUDY REAGAN ANN Rep #: [id number] : 1960 F 65 From: Les Saenz MD PCP: Dr. Hernandez Mosley MD Status: REG ER Study: Abdomen/Pelvis W IV Cont ONLY Date of Exam: Exam# [id number] Ordering Dr: Christian Echeverria MD PROCEDURE: CT ABDOMEN/PELVIS W IV [...] colon compatible with acute diverticulitis. No free fluid collection or free air to indicate perforation. Lymph [...] diverticulitis. 2. Diffuse hepatic steatosis. Reading Location: [facility] CC: Dr. Christian Echeverria MD; Dr. Hernandez Mosley MD Orthophotography Technician: Signed Normal [facility] Absolute lymphocyte countOrd ered By: Christian Echeverria on 03-25-2025 Lymphocytes Auto (Unsp spec) [#/Vol] 1.32 10*3/uL 0.83-4.51 [facility] Absolute neutrophil countOrd ered By: Christian Echeverria on 03-25-2025 Neutrophils (Bld) [#/Vol] 13.9 10*3/uL High 2.0-7.7 [facility] Anion gap in Serum or Plasma Ordered By: Christian Echeverria on 03-25-2025 Anion gap [Moles/Vol] 14 mmol/L 5-15 [facility] Automated lymphocyte count a s percentage of total leukocytesOrdered By: Christian Echeverria on 03-25-2025 Lymphocytes/100 WBC Auto (Unsp spec) 7.6 % Low 19-41 [facility] BUN/creatinine ratioOrdered By: Christian Echeverria on 03-25-2025 Urea nitrogen/Creatinine [Mass ratio] 12.8 mg/mg 10-20 [facility] Basophil percentageOrdered B y: Christian Echeverria on 03-25-2025 Basophils/100 WBC (Bld) 0.3 % 0-1 [facility] Bilirubin Test strip Ql (U)O rdered By: Christian Echeverria on 03-25-2025 Bilirubin Ql (U) Negative Negative [facility] Bilirubin, totalOrdered By: Christian Echeverria on 03-25-2025 Bilirubin [Mass/Vol] 0.88 mg/dL 0.00-1.30 [facility] Blood manual differential co mment interpretation (narrative result)Ordered By: Christian Echeverria on 03-25-2025 Manual differential comment Angel (Bld) [Interp] SCANNED [facility] CBC W/Diff, Automatedon PLT EST ADEQUATE Normal ADEQ [facility] Comment on above: Performed By: #### L 500.4050, L100.0100, L501.2450 #### [facility] [address] [place], [address] SMEAR COMMENT SCANNED Normal [facility] Comment on above: Performed By: #### L 500.4050, L100.0100, L501.2450 #### [facility] [address] [place], [address] Carbon dioxide, total [Moles /volume] in Central venous bloodOrdered By: Christian Echeverria on 03-25-2025 CO2 [Moles/Vol] 26.3 mmol/L 21.0-32.0 [facility] Chloride assayOrdered By: Steven Echeverria on 03-25-2025 Chloride [Moles/Vol] 94 mmol/L Low 98-108 [facility] Comprehensive Metabolic Prof ilon 03-25-2025 Albumin [Mass/Vol] 4.5 g/dL Normal 3.4-4.8 [facility] Comment on above: Performed By: #### L 500.4050, L100.0100, L501.2450 #### [facility] [address] [place], [address] Albumin/Globulin [Mass ratio] 1.5 {ratio} Normal 0.9-2.4 [facility] Comment on above: Performed By: #### L 500.4050, L100.0100, L501.2450 #### [facility] [address] [place], [address] ALK PHOS 110 U/L High 35-104 [facility] Comment on above: Performed By: #### L 500.4050, L100.0100, L501.2450 #### [facility] [address] [place], [address] ALT [Catalytic activity/Vol] 26 U/L Normal <=34 [facility] Comment on above: Performed By: #### L 500.4050, L100.0100, L501.2450 #### [facility] [address] [place], [address] AST [Catalytic activity/Vol] 20 U/L Normal <=31 [facility] Comment on above: Performed By: #### L 500.4050, L100.0100, L501.2450 #### [facility] [address] [place], [address] Bilirubin [Mass/Vol] 0.88 mg/dL Normal 0.00-1.30 [facility] Comment on above: Performed By: #### L 500.4050, L100.0100, L501.2450 #### [facility] [address] [place], [address] BUN/CRE 12.8 RATIO Normal 10-20 [facility] Comment on above: Performed By: #### L 500.4050, L100.0100, L501.2450 #### [facility] [address] [place], [address] Calcium [Mass/Vol] 9.5 mg/dL Normal 7.6-11.0 [facility] Comment on above: Performed By: #### L 500.4050, L100.0100, L501.2450 #### [facility] [address] [place], [address] Chloride [Moles/Vol] 94 mmol/L Low 98-108 [facility] Comment on above: Performed By: #### L 500.4050, L100.0100, L501.2450 #### [facility] [address] [place], [address] CO2 [Moles/Vol] 26.3 mmol/L Normal 21.0-32.0 [facility] Comment on above: Performed By: #### L 500.4050, L100.0100, L501.2450 #### [facility] [address] [place], [address] Creatinine [Mass/Vol] 0.89 mg/dL Normal 0.70-1.20 [facility] Comment on above: Performed By: #### L 500.4050, L100.0100, L501.2450 #### [facility] [address] [place], [address] ECRCL 64.24 ml/min Normal 50-250 [facility] Comment on above: Performed By: #### L 500.4050, L100.0100, L501.2450 #### [facility] [address] [place], [address] GAP 14 Normal 5-15 [facility] Comment on above: Performed By: #### L 500.4050, L100.0100, L501.2450 #### [facility] [address] [place], [address] GFR/1.73 sq M.predicted among non-blacks MDRD (S/P/Bld) [Vol rate/Area] 73 mL/min/{1.73_m2} Normal >60 [facility] Comment on above: Result Comment: mL/m in/1.73m2 CKD-EPI Creatinine Equation (2020) Performed By: #### L 500.4050, L100.0100, L501.2450 #### [facility] [address] [place], [address] Globulin (S) [Mass/Vol] 2.9 g/dL Normal 2.2-4.2 [facility] Comment on above: Performed By: #### L 500.4050, L100.0100, L501.2450 #### [facility] [address] [place], [address] Glucose [Mass/Vol] 120 mg/dL High 70-99 [facility] Comment on above: Performed By: #### L 500.4050, L100.0100, L501.2450 #### [facility] [address] [place], [address] Potassium [Moles/Vol] 3.7 mmol/L Normal 3.3-5.1 [facility] Comment on above: Performed By: #### L 500.4050, L100.0100, L501.2450 #### [facility] [address] [place], [address] Sodium [Moles/Vol] 134 mmol/L Normal 133-145 [facility] Comment on above: Performed By: #### L 500.4050, L100.0100, L501.2450 #### [facility] [address] [place], [address] T PROT 7.5 g/dL Normal 5.9-8.4 [facility] Comment on above: Performed By: #### L 500.4050, L100.0100, L501.2450 #### [facility] [address] [place], [address] Urea nitrogen [Mass/Vol] 11 mg/dL Normal 4-19 [facility] Comment on above: Performed By: #### L 500.4050, L100.0100, L501.2450 #### [facility] [address] [place], [address] Emergency Department Summary on 03-25-2025 Emergency Department Summary [facility] Medical Records Department [address] [place] [address] Emergency Department Summary 03/25/25 MR#: [id number] Acct: [id number] Name: JUDY REAGAN Rep #: [id number] : 1960 65 From: Christian Echeverria MD PCP: Dr. Hernandez Mosley MD Status:REG ER Location: ED HPI HPI - GI History of Present Illness Chief Complaint: Abd Pain Informant: patient Narrative Narrative: 65-year-old female presenting with diffuse lower abdominal pain worse on the right than the left that started yesterday gradually, worse today despite taking her Cipro and Flagyl, she states this started like multiple episodes of diverticulitis she has had in the past, however she followed up with GI Dr. Godwin and had scopes and was actually diagnosed with Crohn's after all of that, and is now on Stelara so she is not sure if this is diverticulitis or if this is related to Crohn's or what is going on. She states she has had a low-grade temp and felt chills, she has had severe nausea, no vomiting. Diarrhea without blood, melena, mucus but she did have tenesmus and then very little stool came out. That started yesterday as well. She states the pain really has become severe. [facility] Medical History Pain History of Crohn's disease Chronic pain GERD (gastroesophageal reflux disease) History of steroid therapy Wears glasses Post-menopausal Anxiety Alcohol use Hx of psoriatic arthritis Restless legs Back pain History of diverticulitis Hx of peptic ulcer Former smoker History of pain when walking Hypertension Osteoarthritis Home Medications ???Medication ???Instructions ???Recorded ???Last Taken ???Type venlafaxine 37.5 mg tablet 75 mg PO QHS depression 03/20/16 0 03/09/25 History pantoprazole 40 mg tablet,delayed 40 mg PO DAILY GERD 08/09/2202/21 History release ramipril 10 mg capsule 10 mg PO BID HEART 08/09/22 History ropinirole 0.25 mg tablet 0.5 mg PO QHS RESTLESS LEGS 03/09/25 History furosemide 20 mg tablet 20 mg PO DAILY 01/12/23 03/09/25 H istory acidophilus 25 million 2 tab PO BID #0 tabs 09/26/2302/21 Rx cell-pectin, citrus 100 mg tablet tramadol 50 mg tablet 50 - 100 mg (1 - 2 x 50 mg) PO Q8H 09/26/23 03/09/25 Rx PRN pain #10 tabs amlodipine 5 mg tablet (Norvasc) 5 mg PO QHS 11/09/23 03/09/25 Hist ory ustekinumab 90 mg/mL subcutaneous 90 mg subcut Q8W #1 mL 03/11/24 U nknown Rx syringe (Stelara) dicyclomine 20 mg tablet 20 mg PO TID PRN abdominal pain Unknown History duloxetine 30 mg capsule,delayed 30 mg PO DAILY #30 caps 11/18/24 0 03/09/25 Rx release tizanidine 4 mg tablet 4 mg PO BID PRN PRN muscle spasm 0 03/25/25 Unknown History Allergy/AdvReac Type Severity Reaction [...] Oral Pulse Rate 127 H 85 96 (more content not included)... Normal [facility] Eosinophil percentageOrdered By: Christianmehran Echeverria on 03-25-2025 Eosinophils/100 WBC (Bld) 0.1 % 0-5 [facility] Erythrocyte distribution wid th ratioOrdered By: Christian Echeverria on 03-25-2025 Erythrocyte distribution width (RBC) [Ratio] 12.5 % 11.6-14.6 [facility] Erythrocyte distribution wid th standard deviationOrdered By: [facility] on 03-25-2025 Erythrocyte distribution width (RBC) [Ratio] 41.3 fl 35.1-43.9 [facility] Glomerular filtration rate ( GFR) estimation/1.73 sq m using serum, plasma, or whole bOrdered By: Christian Echeverria on 03-25-2025 GFR/1.73 sq M.predicted among non-blacks MDRD (S/P/Bld) [Vol rate/Area] 73 mL/min/{1.73_m2} >60 [facility] Comment on above: mL/min/1.73m2 CKD-EP I Creatinine Equation (2020) H AND P Exam - [facility] 03-25-2025 H&P Exam - Hospitalist [facility] Medical Records Department [address] [place] [address] H P Exam - Hospitalist 03/25/25 1840 MR#: [id number] Acct: [id number] Name: JUDY REAGAN Rep #: [id number] : 1960 65 From: Jennifer Dunne MD PCP: Dr. Hernandez Mosley MD Status:ADM IN Location: MS3 [id number] HPI - General General Date of Admission: 03/25/25 Date of Service: 03/25/25 Chief Complaint: Lower abdominal pain HPI Narrative JUDY REAGAN, is a 65-year-old female with a history of GERD, restless leg syndrome, depression, Crohn's disease presented [facility] ED 03/25/2025 with diffuse lower abdominal pain worse on the right that started yesterday gradually. She was placed on Cipro and Flagyl and symptoms worsened so she came to the ED. Does follow with Dr. Godwin and was diagnosed with Crohn's disease, she is now on Stelara. She notes low-grade temp with chills and nausea with no vomiting. In the ED temp 99.9, heart rate 127 blood pressure 123/79, respiratory rate 18 and pulse ox 98% on room air. CMP with BUN of 11 and creatinine 0.89, alk phos 110 and glucose 120, CBC with a white blood cell count of 17, hemoglobin 14.4. Lipase 32, UA negative and CT of the abdomen read as acute uncomplicated sigmoid diverticulitis. Patient received pain medication and Zosyn in the ED but was still very uncomfortable so hospitalist contacted for admission. Patient evaluated at bedside. She reports history as above with pain starting yesterday and not improving despite trying Cipro and Flagyl, has a headache and has been nauseous with poor p.o. [...] around to her back, denies epigastric pain [facility] Medical History Pain History of Crohn's disease Chronic pain GERD (gastroesophageal reflux disease) History of steroid therapy Wears glasses Post-menopausal Anxiety Alcohol use Hx of psoriatic arthritis Restless legs Back pain History of diverticulitis Hx of peptic ulcer Former smoker History of pain when walking Hypertension Osteoarthritis Home Medications ???Medication ???Instructions ???Recorded ???Last Taken ???Type venlafaxine 37.5 mg tablet 75 mg PO QHS depression 03/20/16 0 03/09/25 History pantoprazole 40 mg tablet,delayed 40 mg PO DAILY GERD 08/09/2202/21 History release ramipril 10 mg capsule 10 mg PO BID HEART 08/09/22 History ropinirole 0.25 mg tablet 0.5 mg PO QHS RESTLESS LEGS 03/09/25 History furosemide 20 mg tablet 20 mg PO DAILY 01/12/23 03/09/25 H istory acidophilus 25 million 2 tab PO BID #0 tabs 09/26/2302/21 Rx cell-pectin, citrus 100 mg tablet tramadol 50 mg tablet 50 - 100 mg (1 - 2 x 50 mg) PO Q8H 09/26/23 03/09/25 Rx PRN pain #10 tabs amlodipine 5 mg tablet (Norvasc) 5 mg PO QHS 11/09/23 03/09/25 Hist ory ustekinumab 90 mg/mL subcutaneous 90 mg subcut Q8W #1 mL 03/11/24 U nknown Rx syringe (Stelara) dicyclomine 20 mg tablet 20 mg PO TID PRN abdominal pain Unknown History duloxetine 30 mg capsule,delayed 30 mg PO DAILY #30 caps 11/18/24 0 03/09/25 Rx release tizanidine 4 mg tablet 4 mg PO BID PRN PRN muscle spasm 0 03/25/25 Unknown History Allergy/AdvReac Type Severity Reaction [...] throat EYES: Denies changes in vision Resp: (more content not included)... Normal [facility] Hematocrit Auto (Bld) [Volum e fraction]Ordered By: Christian Echeverria on 03-25-2025 Hematocrit (Bld) [Volume fraction] 42.0 % 37-47 [facility] Hemoglobin measurementOrdere d By: Christian Echeverria on 03-25-2025 Hemoglobin (Bld) [Mass/Vol] 14.4 g/dL 12.0-15.0 [facility] Immature granulocytes/100 WB C Auto (Bld)Ordered By: Christian Echeverria on 03-25-2025 Immature granulocytes/100 WBC (Bld) 0.600 % 0.0-0.9 [facility] Comment on above: IG% - Immature Granu locytes (promyelocytes, myelocytes and metamyelocytes) > 1% indicates that a LEFT SHIFT is Present. Ketones Test strip Ql (U)Ord ered By: Christian Echeverria on 03-25-2025 Ketones Ql (U) Negative Negative [facility] L3410.9992on 03-25-2025 [facility] Misc. COMMENT Normal . [facility] Comment on above: Order Comment: [id number] Stelera lev red serum frz Result Comment: Test Ordered: [id number] Ustekinumab Drug + Antibody Ustekinumab 4.0 ug/mL ES Reference Range: . Quantitation Limit: [...] Advances in AIBD. April 2017. 3. [place] et al. Clin Gastroenterol Hepatol 2017;15: 5576-7316. 4. Loreto SP, et al. Br J Dermatol;2015:173;855-857. 5. Rashaun H, et al. PLOS ONE DOI;10:1371/journal.pone.0169215. 6. Yue L, et al. Br J Dermatol 2014;170:261-273. These tests were developed and their performance characteristics determined by [facility]. They have not been cleared or approved by the Food and Drug Administration. However, both drug and anti-drug antibody assays have been developed and validated in accordance with FDA Guidance for Industry documents: Bioanalytical Method Validation (2013) and Assay Development and Validation for Immunogenicity Testing of Therapeutic Protein Products (2016). Performed at: [facility] [address] [place] [id number] Horse Trekking Guide: Michaela Pringle MD, Phone: [phone] Performed at: [facility] [employer] [id number] Horse Trekking Guide: Bhaskar Mane PhD, Phone: [phone] Performed By: #### L 501.7890, L101.9900, L3078.9993 #### [facility] [address] [place] [address], [address] Laboratory - Chemistry and C hemistry - challengeOrdered By: Christian Echeverria on 03-25-2025 AST [Catalytic activity/Vol] 20 U/L <32 [facility] Lipaseon 03-25-2025 Lipase [Catalytic activity/Vol] 32 U/L Normal 13-75 [facility] Comment on above: Result Comment: Kaci carrera note: LIPASE revised reference range effective 22. New Lipase methodology. Expected to produce lower values than the previous assay method. NEW Reference Range: 13 - 75 U/L Performed By: #### L 500.4050, L100.0100, L501.2450 #### [facility] [place], [address] Lipase measurementOrdered By : Christian Echeverria on 03-25-2025 Lipase [Catalytic activity/Vol] 32 U/L 13-75 [facility] Comment on above: Please note:LIPASE r evised reference range effective 22. New Lipase methodology. Expected to produce lower values than the previous assay method. NEW Reference Range: 13 - 75 U/L MCV (mean corpuscular volume ) determinationOrdered By: Christian Echeverria on 03-25-2025 MCV (RBC) [Entitic vol] 91.3 fL 81-99 [facility] Mean corpuscular hemoglobin (MCH) determinationOrdered By: Christian Echeverria on 03-25-2025 MCH (RBC) [Entitic mass] 31.3 pg 27.0-32.0 [facility] Mean corpuscular hemoglobin concentration (MCHC) determinationOrdered By: Christian Echeverria on 03-25-2025 MCHC (RBC) [Mass/Vol] 34.3 g/dL 32-36 [facility] Mean platelet volume determi nationOrdered By: Christian Echeverria on 03-25-2025 Platelet mean volume (Bld) [Entitic vol] 9.9 fL 6.2-12.0 [facility] Microscopic analysis of urin e for red blood cells (RBC)Ordered By: Christian Echeverria on 03-25-2025 Microscopic analysis of urine for red blood cells (RBC) 0 SEEN /hpf 0-5 [facility] Monocyte percentageOrdered B y: Christian Echeverria on 03-25-2025 Monocytes/100 WBC (Bld) 11.4 % High 0-10 [facility] Mucus LM Ql (Urine sed)Order ed By: Christian Echeverria on 03-25-2025 Mucus Ql (Urine sed) 0 SEEN /hpf [facility] Neutrophil percentageOrdered By: Christian Echeverria on 03-25-2025 Neutrophils/100 WBC (Bld) 80.0 % High 47-70 [facility] Nitrite Test strip Ql (U)Ord ered By: Christian Echeverria on 03-25-2025 Nitrite Ql (U) Negative Negative [facility] Nucleated red blood cell per centageOrdered By: Christian Echeverria on 03-25-2025 Nucleated RBC/100 WBC (Bld) [Ratio] 0 % 0-5 [facility] Platelet countOrdered By: Steven Echeverria on 03-25-2025 Platelets (Bld) [#/Vol] 345 10*3/uL 150-450 [facility] Platelet estimateOrdered By: Christian Echeverria on 03-25-2025 Platelets LM Ql (Bld) ADEQUATE ADEQ [facility] Potassium measurement (mass/ volume)Ordered By: Christian Echeverria on 03-25-2025 Potassium (Unsp spec) [Mass/Vol] 3.7 mmol/L 3.3-5.1 [facility] Protein Test strip Ql (U)Ord ered By: Christian Echeverria on 03-25-2025 Protein Ql (U) Negative Negative [facility] RBC Auto (Bld) [#/Vol]Ordere d By: Christian Echeverria on 03-25-2025 RBC (Bld) [#/Vol] 4.60 10*6/uL 4.2-5.4 [facility] Serum creatinine measurement (mass/volume)Ordered By: Christian Echeverria on 03-25-2025 Creatinine [Mass/Vol] 0.89 mg/dL 0.70-1.20 [facility] Serum globulin measurementOr dered By: Christian Echeverria on 03-25-2025 Globulin (S) [Mass/Vol] 2.9 g/dL 2.2-4.2 [facility] Serum glucose measurement (m ass/volume)Ordered By: Christian Echeverria on 03-25-2025 Glucose [Mass/Vol] 120 mg/dL High 70-99 [facility] Serum or plasma alanine bergman otransferase (ALT) measurementOrdered By: Christian Echeverria on 03-25-2025 ALT [Catalytic activity/Vol] 26 U/L <35 [facility] Serum or plasma albumin elis urement (mass/volume)Ordered By: Christian Echeverria on 03-25-2025 Albumin [Mass/Vol] 4.5 g/dL 3.4-4.8 [facility] Serum or plasma albumin/glob ulin mass ratioOrdered By: Christian Echeverria on 03-25-2025 Albumin/Globulin [Mass ratio] 1.5 {ratio} 0.9-2.4 [facility] Serum or plasma alkaline radha sphatase measurementOrdered By: Christian Echeverria on 03-25-2025 ALP [Catalytic activity/Vol] 110 U/L High 35-104 [facility] Serum or plasma calcium elis urement (mass/volume)Ordered By: Christian Echeverria on 03-25-2025 Calcium [Mass/Vol] 9.5 mg/dL 7.6-11.0 [facility] Serum or plasma urea nitroge n measurement (mass/volume)Ordered By: Christian Echeverria on 03-25-2025 Urea nitrogen [Mass/Vol] 11 mg/dL 4-19 [facility] Sodium levelOrdered By: Murali Echeverria on 03-25-2025 Sodium [Moles/Vol] 134 mmol/L 133-145 [facility] Squamous epithelial cells de tection in urine sediment by light microscopyOrdered By: Christian Echeverria on 03-25-2025 Epithelial cells.squamous LM Ql (Urine sed) 0-5 SEEN /hpf 11-30 [facility] Total proteinOrdered By: Trey Echeverria on 03-25-2025 Protein [Mass/Vol] 7.5 g/dL 5.9-8.4 [facility] Urinalysis, Completeon 03-25 EPI,SQUAMOUS 0-5 SEEN Normal 11-30 [facility] Comment on above: Order Comment: PANCHITO CTOR TO SPECIFY Performed By: #### L 500.4050, L100.0100, L501.2450 #### [facility] [address] [place], [address] BACTERIA 0 SEEN Normal None Seen [facility] Comment on above: Order Comment: PANCHIOT CTOR TO SPECIFY Performed By: #### L 500.4050, L100.0100, L501.2450 #### [facility] [address] [place], [address] Mucus Ql (Urine sed) 0 SEEN Normal [facility] Comment on above: Order Comment: PANCHITO CTOR TO SPECIFY Performed By: #### L 500.4050, L100.0100, L501.2450 #### [facility] [address] [place], [address] RBC 0 SEEN Normal 0-5 [facility] Comment on above: Order Comment: PANCHITO CTOR TO SPECIFY Performed By: #### L 500.4050, L100.0100, L501.2450 #### [facility] [address] [place], [address] WBC 0 SEEN Normal 0-5 [facility] Comment on above: Order Comment: PANCHITO CTOR TO SPECIFY Performed By: #### L 500.4050, L100.0100, L501.2450 #### [facility] [address] [place], [address] Urine clarityOrdered By: Trey Echeverria on 03-25-2025 Clarity (U) Clear Clear [facility] Urine color determinationOrd ered By: Christian Echeverria on 03-25-2025 Color (U) Yellow Yellow [facility] Urine glucose detectionOrder ed By: Christian Echeverria on 03-25-2025 Glucose Ql (U) Normal mg/dl Normal [facility] Urine leukocyte esterase det ection by dipstickOrdered By: Christian Echeverria on 03-25-2025 Leukocyte esterase Test strip Ql (U) Negative Negative [facility] Urine pHOrdered By: Christian Echeverria on 03-25-2025 pH (U) 7.0 [pH] 5.0 - 8.0 [facility] Urine sediment bacteria coun t by microscopy (number/high power field)Ordered By: Christian Echeverria on 03-25-2025 Bacteria LM.HPF (Urine sed) [#/Area] 0 /[HPF] None Seen [facility] Urine specific gravity measu rementOrdered By: Christian Echeverria on 03-25-2025 Specific gravity (U) [Rel density] 1.005 1.002-1.030 [facility] Urine urobilinogen measureme ntOrdered By: Christian Echeverria on 03-25-2025 Urobilinogen Ql (U) Normal mg/dl Normal [facility] White blood cell (WBC) count Ordered By: Christian Echeverria on 03-25-2025 WBC (Bld) [#/Vol] 17.4 10*3/uL High 4.4-11.0 [facility] White blood cell countOrdere d By: Christian Echeverria on 03-25-2025 White blood cell count 0 SEEN /hpf 0-5 [facility] CRPon 03-18-2025 C-REACTIVE PROT 4.67 mg/L High 0.0-3.0 [facility] Comment on above: Performed By: #### L 501.6710, L101.9900, L3410.9992 #### [facility] [address] [place], [address] Erythrocyte Sed Rateon 03-18 SED RATE 1 mm/hr Normal 0-30 [facility] Comment on above: Performed By: #### L 501.6710, L101.9900, L3410.9992 #### [facility] [address] [place], [address] Erythrocyte sedimentation ra teOrdered By: Stanley Godwin on 03-18-2025 ESR (Bld) [Velocity] 1 mm/h 0-30 [facility] Gastroenterology Visit Repor ton 03-18-2025 Gastroenterology Visit Report [facility] [address] [place] [address] OFFICE VISIT Date of Service: 03/18/25 MR#: [id number] Acct: [id number] Name: JUDY REAGAN ANN Rep #: [id number] : 1960 Provider: Stanley Godwin DO Age/Sex: 65/F [place] [facility] [place] Status: Signed Intake Vital Signs 10/07/24 11:21 [...] to the office today for follow up. [facility] hospitalization 03.20.16-03.23.16 for abdominal pain. EGD 03.20.16???scope could not be advanced through duodenal bulb due to concentric narrowing less likely mass; no obvious ulcerations; duodenitis with duodenal ulcers; gastritis; healing prepyloric ulcer. H.Pylori neg Prior workup: ?CT abd/pel 09.21.23???colonic diverticulosis with diverticulitis *[facility] hospitalization .10.14-3 for management of abdominal pain with recent [...] having any GI symptoms of concern. OV 7..24 pt reports daily symptoms of n/v, diarrhea 4-5x a day, right sided abdominal (more content not included)... Normal [facility] Serum or plasma C reactive p rotein measurement (mass/volume)Ordered By: Stanley Godwin on 03-18-2025 CRP [Mass/Vol] 4.67 mg/L High 0.0-3.0 [facility] Lumbar Spine 2 or 3 Viewson 03-10-2025 Lumbar Spine 2 or 3 Views [facility] [address] [place], [place] [address] Lumbar Spine 2 or 3 Views MR#: [id number] Acct: [id number] Name: JUDY REAGAN ANN Rep #: [id number] : 1960 F 65 From: Yumiko Mancia MD PCP: Dr. Hernandez Mosley MD Status: [facility] Study: Lumbar Spine 2 or 3 Views Date of Exam: Exam# [id number] Ordering Dr: Montana Quiñonez MD PROCEDURE: LUMBAR SPINE 2 OR 3 VIEWS 03/10/2025 REASON FOR EXAM: L4 L5 S1 TECHNIQUE: LUMBAR SPINE 2 OR 3 VIEWS FINDINGS: Intraoperative fluoroscopy of the lumbar spine was performed. 5.88 mGy. 15 seconds of fluoroscopic time. See procedure report for full details. RAD/Lumbar Spine 2 or 3 Views IMPRESSION: As above. Reading Location: [id number] CC: Dr. Montana Quiñonez MD; Dr. Hernandez Mosley MD Orthophotography Technician: Signed [facility] MR/POSTOP.ANEon 03-10-2025 MR/POSTOP.[facility] Medical Records Department [address] [place] [address] Anesthesia Postop Eval I 03/10/25 0848 MR#: [id number] Acct: [id number] Name: JUDY REAGAN ANN Rep #: [id number] : 1960 65 From: Yeimy Duggan CRNA PCP: Dr. Hernandez Mosley MD Status:[facility] Y Race: C Location: [place] [address] Anesthesia: Postop Eval I Current Vital Signs Temperature: 97.2 F Pulse Rate: 80 Blood Pressure: 140/75 Respiratory Rate: 20 Pulse Ox: 99 Assessment Airway patent: Yes Spontaneous unlabored respirations: Yes nausea: No Vomiting: No Anesthesia Complication: No Fluid Hydration Crystalloid volume administer (ml): 200 Total IV fluid infused: 200 Progress Note Anesthesia document: Postop Eval 1 completed: Yes 03/10/25847 Date Yeimy Mccainca [employer] Cosigner Signature: Date CC: Signed [facility] MR/[id number] 03-10-2025 MR/POSTOPAN2 Medical Records Department [address] [facility] [place] [address] Anesthesia Postop Eval II 03/10/25 1343 MR#: [id number] Acct: [id number] Name: JUDY REAGAN ANN Rep #: [id number] : 1960 65 From: Sade Padgett CRNA PCP: Dr. Hernandez Mosley MD Status:[facility] Y Race: C [place] [facility] Anesthesia Postop Eval I Sum Postop Eval Completion status Anesthesia document: Postop Eval 1 completed: Yes Anesthesia Postop Eval I Summary Anesthesia Postop Eval I Summary: Anesthesia Postop Eval I: Assessment Summary Airway patent Yes 03/10/25 08:48 [employer] Spontaneous unlabored Yes 03/10/25 08:48 [employer] respirations Mental status nausea No 03/10/25 08:48 [employer] Vomiting No 03/10/25 08:48 [employer] Anesthesia Postop Eval I: Fluid Summary Crystalloid volume administer 200 03/10/25 08:48 [employer]CSIR (ml) Colloids volume administered ( ml) Blood Product volume administered (ml) Total IV fluid infused 200 03/10/25 08:48 [employer]CSIR Anesthesia Postop Eval I: Summary Notes Anesthesia Complication No 03/10/25 08:48 [employer]CS[employer] Anesthesia Complication Comment: Post-operative progress note Anesthesia: Postop Eval II Evaluation Mental status: Awake and Calm Pain Level: 1 nausea: No Vomiting: No Complications Anesthesia Complication: No 03/10/25 1343 Date Sade Padgett [employer] Cosigner Signature: Date CC: Signed Normal [facility] Operative Reporton 5 Operative Report [facility] Medical Records Department [address] [facility] [place] [address] Operative Report 03/10/25 0849 MR#: [id number] Acct: [id number] Name: JUDY REAGAN ANN Rep #: [id number] : 1960 65 From: Montana Quiñonez MD PCP: Dr. Hernandez Mosley MD Status:[facility] Location: [place] [address] Operative Report (Standard) Operative Information Date of Procedure: 03/10/25 Pre-Operative Diagnosis: Lumbosacral radiculopathy, lumbosacral spinal stenosis, lumbosacral degenerative disc disease Post-Operative Diagnosis: Lumbosacral radiculopathy, lumbosacral spinal stenosis, lumbosacral degenerative disc disease Surgery/Procedure Performed: Right sided lumbar transforaminal epidural steroid injection L4-5, L5- S1 under fluoroscopic guidance dynamicist: No Type of Anesthesia: Local MAC RN [...] MD; Dr. Hernandez Mosley MD Signed Normal [facility] Absolute lymphocyte countOrd ered By: Hernandez Mosley on 12-02-2024 Lymphocytes Auto (Unsp spec) [#/Vol] 2.21 10*3/uL 0.83-4.51 [facility] Absolute neutrophil countOrd ered By: Hernandez Mosley on 12-02-2024 Neutrophils (Bld) [#/Vol] 7.5 10*3/uL 2.0-7.7 [facility] Anion gap in Serum or Plasma Ordered By: Hernandez Mosley on 12-02-2024 Anion gap [Moles/Vol] 15 mmol/L 5-15 [facility] Automated lymphocyte count a s percentage of total leukocytesOrdered By: Hernandez Mosley on 12-02-2024 Lymphocytes/100 WBC Auto (Unsp spec) 20.2 % -41 [facility] BUN/creatinine ratioOrdered By: Hernandez Mosley on 12-02-2024 Urea nitrogen/Creatinine [Mass ratio] 19.5 mg/mg 10-20 [facility] Basophil percentageOrdered B y: Hernandez Mosley on 12-02-2024 Basophils/100 WBC (Bld) 0.5 % 0-1 [facility] Bilirubin, totalOrdered By: Hernandez Mosley on 12-02-2024 Bilirubin [Mass/Vol] 0.36 mg/dL 0.00-1.30 [facility] CBC W/Diff, Automatedon 11-21 Absolute Lymph 2.21 X10 3/uL Normal 0.83-4.51 [facility] Comment on above: Performed By: #### L 500.4050, L501.9520, L100.0100 #### [facility] [address] [place], [address] Absolute Neut 7.5 X10 3/uL Normal 2.0-7.7 [facility] Comment on above: Performed By: #### L 500.4050, L501.9520, L100.0100 #### [facility] [address] [place], [address] Basophils/100 WBC (Bld) 0.5 % Normal 0-1 [facility] Comment on above: Performed By: #### L 500.4050, L501.9520, L100.0100 #### [facility] [address] [place], [address] Eosinophils/100 WBC (Bld) 0.7 % Normal 0-5 [facility] Comment on above: Performed By: #### L 500.4050, L501.9520, L100.0100 #### [facility] [address] [place], [address] Erythrocyte distribution width (RBC) [Ratio] 13.2 % Normal 11.6-14.6 [facility] Comment on above: Performed By: #### L 500.4050, L501.9520, L100.0100 #### [facility] [address] [place], [address] Hematocrit (Bld) [Volume fraction] 41.5 % Normal 37-47 [facility] Comment on above: Performed By: #### L 500.4050, L501.9520, L100.0100 #### [facility] [address] [place], [address] Hemoglobin (Bld) [Mass/Vol] 13.7 g/dL Normal 12.0-15.0 [facility] Comment on above: Performed By: #### L 500.4050, L501.9520, L100.0100 #### [facility] [address] [place], [address] IG% 0.500 Normal 0.0-0.9 [facility] Comment on above: Result Comment: IG% - Immature Granulocytes (promyelocytes, myelocytes and metamyelocytes) > 1% indicates that a LEFT SHIFT is Present. Performed By: #### L 500.4050, L501.9520, L100.0100 #### [facility] [address] [place], [address] Lymphocytes/100 WBC (Bld) 20.2 % Normal 19-41 [facility] Comment on above: Performed By: #### L 500.4050, L501.9520, L100.0100 #### [facility] [address] [place], [address] MCH (RBC) [Entitic mass] 30.8 pg Normal 27.0-32.0 [facility] Comment on above: Performed By: #### L 500.4050, L501.9520, L100.0100 #### [facility] [address] [place], [address] MCHC (RBC) [Mass/Vol] 33.0 g/dL Normal 32-36 [facility] Comment on above: Performed By: #### L 500.4050, L501.9520, L100.0100 #### [facility] [address] [place], [address] MCV (RBC) [Entitic vol] 93.3 fL Normal 81-99 [facility] Comment on above: Performed By: #### L 500.4050, L501.9520, L100.0100 #### [facility] [address] [place], [address] Monocytes/100 WBC (Bld) 9.6 % Normal 0-10 [facility] Comment on above: Performed By: #### L 500.4050, L501.9520, L100.0100 #### [facility] [address] [place], [address] Neutrophils/100 WBC (Bld) 68.5 % Normal 47-70 [facility] Comment on above: Performed By: #### L 500.4050, L501.9520, L100.0100 #### [facility] [address] [place], [address] Nucleated RBC (Bld) [#/Vol] 0 10*3/uL Normal 0-5 [facility] Comment on above: Performed By: #### L 500.4050, L501.9520, L100.0100 #### [facility] [address] [place], [address] Platelet mean volume (Bld) [Entitic vol] 9.7 fL Normal 6.2-12.0 [facility] Comment on above: Performed By: #### L 500.4050, L501.9520, L100.0100 #### [facility] [address] [place], [address] Platelets (Bld) [#/Vol] 328 10*3/uL Normal 150-450 [facility] Comment on above: Performed By: #### L 500.4050, L501.9520, L100.0100 #### [facility] [address] [place], [address] RBC (Bld) [#/Vol] 4.45 10*6/uL Normal 4.2-5.4 [facility] Comment on above: Performed By: #### L 500.4050, L501.9520, L100.0100 #### [facility] [address] [place], [address] RDW SD 45.4 fl High 35.1-43.9 [facility] Comment on above: Performed By: #### L 500.4050, L501.9520, L100.0100 #### [facility] [address] [place], [address] WBC (Bld) [#/Vol] 11.0 10*3/uL Normal 4.4-11.0 [facility] Comment on above: Performed By: #### L 500.4050, L501.9520, L100.0100 #### [facility] [address] [place], [address] Carbon dioxide, total [Moles /volume] in Central venous bloodOrdered By: Hernandez Mosley on 12-02-2024 CO2 [Moles/Vol] 23.3 mmol/L 21.0-32.0 [facility] Chloride assayOrdered By: Jer Mosley on 12-02-2024 Chloride [Moles/Vol] 99 mmol/L 98-108 [facility] Comprehensive Metabolic Prof ilon 12-02-2024 Albumin [Mass/Vol] 4.5 g/dL Normal 3.4-4.8 [facility] Comment on above: Performed By: #### L 500.4050, L501.9520, L100.0100 #### [facility] [address] [place], [address] Albumin/Globulin [Mass ratio] 1.6 {ratio} Normal 0.9-2.4 [facility] Comment on above: Performed By: #### L 500.4050, L501.9520, L100.0100 #### [facility] [address] [place], [address] ALK PHOS 82 U/L Normal 35-104 [facility] Comment on above: Performed By: #### L 500.4050, L501.9520, L100.0100 #### [facility] [address] [place], [address] ALT [Catalytic activity/Vol] 24 U/L Normal <=34 [facility] Comment on above: Performed By: #### L 500.4050, L501.9520, L100.0100 #### [facility] [address] [place], [address] AST [Catalytic activity/Vol] 22 U/L Normal <=31 [facility] Comment on above: Performed By: #### L 500.4050, L501.9520, L100.0100 #### [facility] [address] [place], [address] Bilirubin [Mass/Vol] 0.36 mg/dL Normal 0.00-1.30 [facility] Comment on above: Performed By: #### L 500.4050, [id number], L100.0100 #### [facility] [address] [place], [address] BUN/CRE 19.5 RATIO Normal 10-20 [facility] Comment on above: Performed By: #### L 500.4050, [id number], L100.0100 #### [facility] [address] [place], [address] Calcium [Mass/Vol] 9.5 mg/dL Normal 7.6-11.0 [facility] Comment on above: Performed By: #### L 500.4050, L501.9520, L100.0100 #### [facility] [address] [place], [address] Chloride [Moles/Vol] 99 mmol/L Normal 98-108 [facility] Comment on above: Performed By: #### L 500.4050, [id number], L100.0100 #### [facility] [address] [place], [address] CO2 [Moles/Vol] 23.3 mmol/L Normal 21.0-32.0 [facility] Comment on above: Performed By: #### L 500.4050, L501.9520, L100.0100 #### [facility] [address] [place], [address] Creatinine [Mass/Vol] 0.82 mg/dL Normal 0.70-1.20 [facility] Comment on above: Performed By: #### L 500.4050, L501.9520, L100.0100 #### [facility] [address] [place], [address] GAP 15 Normal 5-15 [facility] Comment on above: Performed By: #### L 500.4050, L501.9520, L100.0100 #### [facility] [address] [place], [address] GFR/1.73 sq M.predicted among non-blacks MDRD (S/P/Bld) [Vol rate/Area] 81 mL/min/{1.73_m2} Normal >60 [facility] Comment on above: Result Comment: mL/m in/1.73m2 CKD-EPI Creatinine Equation (2020) Performed By: #### L 500.4050, L501.9520, L100.0100 #### [facility] [address] [place], [address] Globulin (S) [Mass/Vol] 2.8 g/dL Normal 2.2-4.2 [facility] Comment on above: Performed By: #### L 500.4050, L501.9520, L100.0100 #### [facility] [address] [place], [address] Glucose [Mass/Vol] 81 mg/dL Normal 70-99 [facility] Comment on above: Performed By: #### L 500.4050, L501.9520, L100.0100 #### [facility] [address] [place], [address] Potassium [Moles/Vol] 3.7 mmol/L Normal 3.3-5.1 [facility] Comment on above: Performed By: #### L 500.4050, L501.9520, L100.0100 #### [facility] [address] [place], [address] Sodium [Moles/Vol] 137 mmol/L Normal 133-145 [facility] Comment on above: Performed By: #### L 500.4050, L501.9520, L100.0100 #### [facility] [address] [place], [address] T PROT 7.3 g/dL Normal 5.9-8.4 [facility] Comment on above: Performed By: #### L 500.4050, L501.9520, L100.0100 #### [facility] [address] [place], [address] Urea nitrogen [Mass/Vol] 16 mg/dL Normal 4-19 [facility] Comment on above: Performed By: #### L 500.4050, L501.9520, L100.0100 #### [facility] [address] [place], [address] Eosinophil percentageOrdered By: Hernandez Mosley on 12-02-2024 Eosinophils/100 WBC (Bld) 0.7 % 0-5 [facility] Erythrocyte distribution wid th ratioOrdered By: Hernandez Mosley on 12-02-2024 Erythrocyte distribution width (RBC) [Ratio] 13.2 % 11.6-14.6 [facility] Erythrocyte distribution wid th standard deviationOrdered By: Hernandez Mosley on 12-02-2024 Erythrocyte distribution width (RBC) [Ratio] 45.4 fl High 35.1-43.9 [facility] Glomerular filtration rate ( GFR) estimation/1.73 sq m using serum, plasma, or whole bOrdered By: Hernandez Mosley on 12-02-2024 GFR/1.73 sq M.predicted among non-blacks MDRD (S/P/Bld) [Vol rate/Area] 81 mL/min/{1.73_m2} >60 [facility] Comment on above: mL/min/1.73m2 CKD-EP I Creatinine Equation (2020) Hematocrit Auto (Bld) [Volum e fraction]Ordered By: Hernandez Mosley 12-02-2024 Hematocrit (Bld) [Volume fraction] 41.5 % 37-47 [facility] Hemoglobin measurementOrdere d By: Hernandez Mosley 12-02-2024 Hemoglobin (Bld) [Mass/Vol] 13.7 g/dL 12.0-15.0 [facility] Immature granulocytes/100 WB C Auto (Bld)Ordered By: Hernandez Mosley 12-02-2024 Immature granulocytes/100 WBC (Bld) 0.500 % 0.0-0.9 [facility] Comment on above: IG% - Immature Granu locytes (promyelocytes, myelocytes and metamyelocytes) > 1% indicates that a LEFT SHIFT is Present. Laboratory - Chemistry and C hemistry - challengeOrdered By: Hernandez Mosley 12-02-2024 AST [Catalytic activity/Vol] 22 U/L <32 [facility] MCV (mean corpuscular volume ) determinationOrdered By: Hernandez Mosley 12-02-2024 MCV (RBC) [Entitic vol] 93.3 fL 81-99 [facility] Mean corpuscular hemoglobin (MCH) determinationOrdered By: Hernandez Mosley 12-02-2024 MCH (RBC) [Entitic mass] 30.8 pg 27.0-32.0 [facility] Mean corpuscular hemoglobin concentration (MCHC) determinationOrdered By: Hernandez Mosley 12-02-2024 MCHC (RBC) [Mass/Vol] 33.0 g/dL 32-36 [facility] Mean platelet volume determi nationOrdered By: Hernandez Mosley on 12-02-2024 Platelet mean volume (Bld) [Entitic vol] 9.7 fL 6.2-12.0 [facility] Monocyte percentageOrdered B y: Hernandez Mosley on 12-02-2024 Monocytes/100 WBC (Bld) 9.6 % 0-10 [facility] Neutrophil percentageOrdered By: Hernandez Mosley on 12-02-2024 Neutrophils/100 WBC (Bld) 68.5 % 47-70 [facility] Nucleated red blood cell per centageOrdered By: Hernandez Mosley on 12-02-2024 Nucleated RBC/100 WBC (Bld) [Ratio] 0 % 0-5 [facility] Platelet countOrdered By: Jer Mosley on 12-02-2024 Platelets (Bld) [#/Vol] 328 10*3/uL 150-450 [facility] Potassium measurement (mass/ volume)Ordered By: Hrenandez Mosley on 12-02-2024 Potassium (Unsp spec) [Mass/Vol] 3.7 mmol/L 3.3-5.1 [facility] RBC Auto (Bld) [#/Vol]Ordere d By: Hernandez Mosley on 12-02-2024 RBC (Bld) [#/Vol] 4.45 10*6/uL 4.2-5.4 [facility] Serum creatinine measurement (mass/volume)Ordered By: Hernandez Mosley on 12-02-2024 Creatinine [Mass/Vol] 0.82 mg/dL 0.70-1.20 [facility] Serum globulin measurementOr dered By: Hernandez Mosley 12-02-2024 Globulin (S) [Mass/Vol] 2.8 g/dL 2.2-4.2 [facility] Serum glucose measurement (m ass/volume)Ordered By: Hernandez Mosley 12-02-2024 Glucose [Mass/Vol] 81 mg/dL 70-99 [facility] Serum or plasma alanine bergman otransferase (ALT) measurementOrdered By: Hernandez Mosley 12-02-2024 ALT [Catalytic activity/Vol] 24 U/L <35 [facility] Serum or plasma albumin elis urement (mass/volume)Ordered By: Hernandez Mosley 12-02-2024 Albumin [Mass/Vol] 4.5 g/dL 3.4-4.8 [facility] Serum or plasma albumin/glob ulin mass ratioOrdered By: Hernandez Mosley on 12-02-2024 Albumin/Globulin [Mass ratio] 1.6 {ratio} 0.9-2.4 [facility] Serum or plasma alkaline radha sphatase measurementOrdered By: Hernandez Mosley on 12-02-2024 ALP [Catalytic activity/Vol] 82 U/L 35-104 [facility] Serum or plasma calcium elis urement (mass/volume)Ordered By: Hernandez Mosley on 12-02-2024 Calcium [Mass/Vol] 9.5 mg/dL 7.6-11.0 [facility] Serum or plasma urea nitroge n measurement (mass/volume)Ordered By: Hernandez Mosley on 12-02-2024 Urea nitrogen [Mass/Vol] 16 mg/dL 4-19 [facility] Sodium levelOrdered By: Hernandez Mosley on 12-02-2024 Sodium [Moles/Vol] 137 mmol/L 133-145 [facility] TSH DL <= 0.005 mIU/L QnOrde red By: Hernandez Mosley on 12-02-2024 TSH Qn 2.390 uIU/mL 0.300-4.200 [facility] Thyroid Stim Hormone (TSH)on 12-02-2024 TSH 2.390 uIU/mL Normal 0.300-4.200 [facility] Comment on above: Performed By: #### L 500.4050, L501.9520, L100.0100 #### [facility] [address] [place] [address]. [place], [place], [address] Total proteinOrdered By: Hernandez Mosley on 12-02-2024 Protein [Mass/Vol] 7.3 g/dL 5.9-8.4 [facility] White blood cell (WBC) count Ordered By: Hernandez Mosley on 12-02-2024 WBC (Bld) [#/Vol] 11.0 10*3/uL 4.4-11.0 [facility] Misc.on 11-07-2024 [facility] Misc. COMMENT Normal . [facility] Comment on above: Order Comment: [id number] LEVELS RED FRZ Result Comment: Test Ordered: [id number] Ustekinumab Drug + Antibody Ustekinumab 4.2 ug/mL [...] R, et al. Clin Gastroenterol Hepatol 2017;15: 8393-5836. 4. Loreto SP, et al. Br J Dermatol;2015:173;855-857. 5. Rashaun H, et al. PLOS ONE DOI;10:1371/journal.pone.4492138. 6. Yue L, et al. Br J Dermatol 2014;170:261-273. These tests were developed and their performance characteristics determined by [facility]. They have not been cleared or approved by the Food and Drug Administration. However, both drug and anti-drug antibody assays have been developed and validated in accordance with FDA Guidance for Industry documents: Bioanalytical Method Validation (2013) and Assay Development and Validation for Immunogenicity Testing of Therapeutic Protein Products (2016). Performed at: [facility] [address] [place] [id number] [employer] Guide: Gustavo Garcia MD, Phone: [phone] Performed at: [facility] [address] [id number] [employer] Guide: Bhaskar Mane PhD, Phone: [phone] Performed By: #### L 500.4050, L100.0100, L501.2450 #### [facility] [address] [place] [address]. [place], [address] Absolute lymphocyte countOrd ered By: Stanley Godwin on 10-28-2024 Lymphocytes Auto (Unsp spec) [#/Vol] 1.87 10*3/uL 0.83-4.51 [facility] Absolute neutrophil countOrd ered By: Stanley Citlali on 10-28-2024 Neutrophils (Bld) [#/Vol] 5.2 10*3/uL 2.0-7.7 [facility] Anion gap in Serum or Plasma Ordered By: Stanley Godwin on 10-28-2024 Anion gap [Moles/Vol] 13 mmol/L 5-15 [facility] Automated lymphocyte count a s percentage of total leukocytesOrdered By: Stanley Godwin on 10-28-2024 Lymphocytes/100 WBC Auto (Unsp spec) 23.0 % 19-41 [facility] BUN/creatinine ratioOrdered By: Stanleyelias Godwin on 10-28-2024 Urea nitrogen/Creatinine [Mass ratio] 20.4 mg/mg High 10-20 [facility] Basophil percentageOrdered B y: Stanley Godwin on 10-28-2024 Basophils/100 WBC (Bld) 1.0 % 0-1 [facility] Bilirubin, totalOrdered By: Stanley Godwin on 10-28-2024 Bilirubin [Mass/Vol] 0.43 mg/dL 0.00-1.30 [facility] CBC W/Diff, Automatedon Absolute Lymph 1.87 X10 3/uL Normal 0.83-4.51 [facility] Comment on above: Performed By: #### L 500.4050, L100.0100, L501.2450 #### [facility] [address] [place], [address] Absolute Neut 5.2 X10 3/uL Normal 2.0-7.7 [facility] Comment on above: Performed By: #### L 500.4050, L100.0100, L501.2450 #### [facility] [address] [place], [address] Basophils/100 WBC (Bld) 1.0 % Normal 0-1 [facility] Comment on above: Performed By: #### L 500.4050, L100.0100, L501.2450 #### [facility] [address] [place], [address] Eosinophils/100 WBC (Bld) 1.0 % Normal 0-5 [facility] Comment on above: Performed By: #### L 500.4050, L100.0100, L501.2450 #### [facility] [address] [place], [address] Erythrocyte distribution width (RBC) [Ratio] 12.7 % Normal 11.6-14.6 [facility] Comment on above: Performed By: #### L 500.4050, L100.0100, L501.2450 #### [facility] [address] [place], [address] Hematocrit (Bld) [Volume fraction] 41.7 % Normal 37-47 [facility] Comment on above: Performed By: #### L 500.4050, L100.0100, L501.2450 #### [facility] [address] [place], [address] Hemoglobin (Bld) [Mass/Vol] 13.9 g/dL Normal 12.0-15.0 [facility] Comment on above: Performed By: #### L 500.4050, L100.0100, L501.2450 #### [facility] [address] [place], [address] IG% 0.400 Normal 0.0-0.9 [facility] Comment on above: Result Comment: IG% - Immature Granulocytes (promyelocytes, myelocytes and metamyelocytes) > 1% indicates that a LEFT SHIFT is Present. Performed By: #### L 500.4050, L100.0100, L501.2450 #### [facility] [address] [place], [address] Lymphocytes/100 WBC (Bld) 23.0 % Normal 19-41 [facility] Comment on above: Performed By: #### L 500.4050, L100.0100, L501.2450 #### [facility] [address] [place], [address] MCH (RBC) [Entitic mass] 30.8 pg Normal 27.0-32.0 [facility] Comment on above: Performed By: #### L 500.4050, L100.0100, L501.2450 #### [facility] [address] [place], [address] MCHC (RBC) [Mass/Vol] 33.3 g/dL Normal 32-36 [facility] Comment on above: Performed By: #### L 500.4050, L100.0100, L501.2450 #### [facility] [address] [place], [address] MCV (RBC) [Entitic vol] 92.3 fL Normal 81-99 [facility] Comment on above: Performed By: #### L 500.4050, L100.0100, L501.2450 #### [facility] [address] [place], [address] Monocytes/100 WBC (Bld) 10.1 % High 0-10 [facility] Comment on above: Performed By: #### L 500.4050, L100.0100, L501.2450 #### [facility] [address] [place], [address] Neutrophils/100 WBC (Bld) 64.5 % Normal 47-70 [facility] Comment on above: Performed By: #### L 500.4050, L100.0100, L501.2450 #### [facility] [address] [place], [address] Nucleated RBC (Bld) [#/Vol] 0 10*3/uL Normal 0-5 [facility] Comment on above: Performed By: #### L 500.4050, L100.0100, L501.2450 #### [facility] [address] [place], [address] Platelet mean volume (Bld) [Entitic vol] 10.1 fL Normal 6.2-12.0 [facility] Comment on above: Performed By: #### L 500.4050, L100.0100, L501.2450 #### [facility] [address] [place], [address] Platelets (Bld) [#/Vol] 319 10*3/uL Normal 150-450 [facility] Comment on above: Performed By: #### L 500.4050, L100.0100, L501.2450 #### [facility] [address] [place], [address] RBC (Bld) [#/Vol] 4.52 10*6/uL Normal 4.2-5.4 [facility] Comment on above: Performed By: #### L 500.4050, L100.0100, L501.2450 #### [facility] [address] [place], [address] RDW SD 43.3 fl Normal 35.1-43.9 [facility] Comment on above: Performed By: #### L 500.4050, L100.0100, L501.2450 #### [facility] [address] [place], [address] WBC (Bld) [#/Vol] 8.1 10*3/uL Normal 4.4-11.0 [facility] Comment on above: Performed By: #### L 500.4050, L100.0100, L501.2450 #### [facility] [address] [place], [address] CRPon 10-28-2024 C-REACTIVE PROT 6.21 mg/L High 0.0-3.0 [facility] Comment on above: Performed By: #### L 500.4050, L100.0100, L501.2450 #### [facility] [address] [place], [address] CRP [Mass/Vol]Ordered By: Ra jeri Godwin on 10-28-2024 C-Reactive Protein Extended Range 6.21 mg/L High 0.0-3.0 [facility] Carbon dioxide, total [Moles /volume] in Central venous bloodOrdered By: Stanley Godwin on 10-28-2024 CO2 [Moles/Vol] 25.4 mmol/L 21.0-32.0 [facility] Chloride assayOrdered By: Ra wilcox Friend on 10-28-2024 Chloride [Moles/Vol] 99 mmol/L 98-108 [facility] Comprehensive Metabolic Prof ilon 10-28-2024 Albumin [Mass/Vol] 4.3 g/dL Normal 3.4-4.8 [facility] Comment on above: Order Comment: [id number] 4 Performed By: #### L 500.4050, L100.0100, L501.2450 #### [facility] [address] [place], [address] Albumin/Globulin [Mass ratio] 1.5 {ratio} Normal 0.9-2.4 [facility] Comment on above: Order Comment: [id number] 4 Performed By: #### L 500.4050, L100.0100, L501.2450 #### [facility] [address] [place], [address] ALK PHOS 93 U/L Normal 35-104 [facility] Comment on above: Order Comment: [id number] 4 Performed By: #### L 500.4050, L100.0100, L501.2450 #### [facility] [address] [place], [address] ALT [Catalytic activity/Vol] 19 U/L Normal <=34 [facility] Comment on above: Order Comment: [id number] 4 Performed By: #### L 500.4050, L100.0100, L501.2450 #### [facility] [address] [place], [address] AST [Catalytic activity/Vol] 18 U/L Normal <=31 [facility] Comment on above: Order Comment: [id number] 4 Performed By: #### L 500.4050, L100.0100, L501.2450 #### [facility] [address] [place], [address] Bilirubin [Mass/Vol] 0.43 mg/dL Normal 0.00-1.30 [facility] Comment on above: Order Comment: [id number] 4 Performed By: #### L 500.4050, L100.0100, L501.2450 #### [facility] [address] [place], [address] BUN/CRE 20.4 RATIO High 10-20 [facility] Comment on above: Order Comment: [id number] 4 Performed By: #### L 500.4050, L100.0100, L501.2450 #### [facility] [address] [place], [address] Calcium [Mass/Vol] 9.2 mg/dL Normal 7.6-11.0 [facility] Comment on above: Order Comment: [id number] 4 Performed By: #### L 500.4050, L100.0100, L501.2450 #### [facility] [address] [place], [address] Chloride [Moles/Vol] 99 mmol/L Normal 98-108 [facility] Comment on above: Order Comment: [id number] 4 Performed By: #### L 500.4050, L100.0100, L501.2450 #### [facility] [address] [place], [address] CO2 [Moles/Vol] 25.4 mmol/L Normal 21.0-32.0 [facility] Comment on above: Order Comment: [id number] 4 Performed By: #### L 500.4050, L100.0100, L501.2450 #### [facility] [address] [place], [address] Creatinine [Mass/Vol] 0.72 mg/dL Normal 0.70-1.20 [facility] Comment on above: Order Comment: [id number] 4 Performed By: #### L 500.4050, L100.0100, L501.2450 #### [facility] [address] [place], [address] GAP 13 Normal 5-15 [facility] Comment on above: Order Comment: [id number] 4 Performed By: #### L 500.4050, L100.0100, L501.2450 #### [facility] [address] [place], [address] GFR/1.73 sq M.predicted among non-blacks MDRD (S/P/Bld) [Vol rate/Area] 94 mL/min/{1.73_m2} Normal >60 [facility] Comment on above: Order Comment: [id number] 4 Result Comment: mL/m in/1.73m2 CKD-EPI Creatinine Equation (2020) Performed By: #### L 500.4050, L100.0100, L501.2450 #### [facility] [address] [place], [address] Globulin (S) [Mass/Vol] 2.9 g/dL Normal 2.2-4.2 [facility] Comment on above: Order Comment: [id number] 4 Performed By: #### L 500.4050, L100.0100, L501.2450 #### [facility] [address] [place], [address] Glucose [Mass/Vol] 96 mg/dL Normal 70-99 [facility] Comment on above: Order Comment: [id number] 4 Performed By: #### L 500.4050, L100.0100, L501.2450 #### [facility] [address] [place], [address] Potassium [Moles/Vol] 3.9 mmol/L Normal 3.3-5.1 [facility] Comment on above: Order Comment: [id number] 4 Performed By: #### L 500.4050, L100.0100, L501.2450 #### [facility] [address] [place], [address] Sodium [Moles/Vol] 137 mmol/L Normal 133-145 [facility] Comment on above: Order Comment: [id number] 4 Performed By: #### L 500.4050, L100.0100, L501.2450 #### [facility] [address] [place], [address] T PROT 7.2 g/dL Normal 5.9-8.4 [facility] Comment on above: Order Comment: [id number] 4 Performed By: #### L 500.4050, L100.0100, L501.2450 #### [facility] [address] [place], [address] Urea nitrogen [Mass/Vol] 15 mg/dL Normal 4-19 [facility] Comment on above: Order Comment: [id number] 4 Performed By: #### L 500.4050, L100.0100, L501.2450 #### [facility] [address] [place], [address] Eosinophil percentageOrdered By: Stanley Godwin on 10-28-2024 Eosinophils/100 WBC (Bld) 1.0 % 0-5 [facility] Erythrocyte Sed Rateon 10-28 SED RATE 2 mm/hr Normal 0-30 [facility] Comment on above: Performed By: #### L 500.4050, L100.0100, L501.2450 #### [facility] [address] [place], [address] Erythrocyte distribution wid th (RBC) [Ratio]Ordered By: Stanley Godwin on 10-28-2024 Erythrocyte distribution width (RBC) [Entitic vol] 43.3 fL 35.1-43.9 [facility] Erythrocyte distribution wid th ratioOrdered By: Stanley Godwin on 10-28-2024 Erythrocyte distribution width (RBC) [Ratio] 12.7 % 11.6-14.6 [facility] Erythrocyte distribution wid th standard deviationOrdered By: Stanley Godwin on 10-28-2024 Erythrocyte distribution width (RBC) [Ratio] 43.3 fl 35.1-43.9 [facility] Erythrocyte sedimentation ra teOrdered By: Stanley Godwin on 10-28-2024 ESR (Bld) [Velocity] 2 mm/h 0-30 [facility] GFR/1.73 sq M.predicted dayday g non-blacks MDRD (S/P/Bld) [Vol rate/Area]Ordered By: Stanley Godwin on 10-28-2024 Estimated GFR (MDRD) Non-Af Amer 94 >60 [facility] Comment on above: mL/min/1.73m2 CKD-EP I Creatinine Equation (2020) Gastroenterology Visit Repor ton 10-28-2024 Gastroenterology Visit Report [facility]enterology [address] [place] [address] OFFICE VISIT Date of Service: 10/28/24 MR#: [id number] Acct: [id number] Name: JUDY REAGAN ANN Rep #: [id number] : 1960 Provider: Stanley Godwin DO Age/Sex: 64/F [place] [facility] [place] Status: Signed Intake Vital Signs 10/07/24 [...] to the office today for follow up. [facility] hospitalization 03.20.16-03.23.16 for abdominal pain. EGD 03.20.16???scope could not be advanced through duodenal bulb due to concentric narrowing less likely mass; no obvious ulcerations; duodenitis with duodenal ulcers; gastritis; healing prepyloric ulcer. H.Pylori neg Prior workup: ?CT abd/pel 09.21.23???colonic diverticulosis with diverticulitis *[facility] hospitalization .10.14-3 for management of abdominal pain with recent [...] GI s (more content not included)... Normal [facility] Glomerular filtration rate ( GFR) estimation/1.73 sq m using serum, plasma, or whole bOrdered By: Stanley Godwin on 10-28-2024 GFR/1.73 sq M.predicted among non-blacks MDRD (S/P/Bld) [Vol rate/Area] 94 mL/min/{1.73_m2} >60 [facility] Comment on above: mL/min/1.73m2 CKD-EP I Creatinine Equation (2020) Hematocrit Auto (Bld) [Volum e fraction]Ordered By: Stanley Godwin on 10-28-2024 Hematocrit (Bld) [Volume fraction] 41.7 % 37-47 [facility] Hemoglobin measurementOrdere d By: Stanley Godwin on 10-28-2024 Hemoglobin (Bld) [Mass/Vol] 13.9 g/dL 12.0-15.0 [facility] Immature granulocytes/100 WB C Auto (Bld)Ordered By: Stanley Godwin on 10-28-2024 Immature granulocytes/100 WBC (Bld) 0.400 % 0.0-0.9 [facility] Comment on above: IG% - Immature Granu locytes (promyelocytes, myelocytes and metamyelocytes) > 1% indicates that a LEFT SHIFT is Present. Laboratory - Chemistry and C hemistry - challengeOrdered By: Stanley Godwin on 10-28-2024 AST [Catalytic activity/Vol] 18 U/L <32 [facility] Lymphocytes Auto (Unsp spec) [#/Vol]Ordered By: Stanley Godwin on 10-28-2024 Lymphocytes (Bld) [#/Vol] 1.87 10*3/uL 0.83-4.51 [facility] Lymphocytes/100 WBC Auto (Un sp spec)Ordered By: Stanley Godwin on 10-28-2024 Lymphocytes/100 WBC (Bld) 23.0 % 19-41 [facility] MCV (mean corpuscular volume ) determinationOrdered By: Stanley Godwin on 10-28-2024 MCV (RBC) [Entitic vol] 92.3 fL 81-99 [facility] Mean corpuscular hemoglobin (MCH) determinationOrdered By: Stnaley Godwin on 10-28-2024 MCH (RBC) [Entitic mass] 30.8 pg 27.0-32.0 [facility] Mean corpuscular hemoglobin concentration (MCHC) determinationOrdered By: Stanley Godwin on 10-28-2024 MCHC (RBC) [Mass/Vol] 33.3 g/dL 32-36 [facility] Mean platelet volume determi nationOrdered By: Stanley Godwin on 10-28-2024 Platelet mean volume (Bld) [Entitic vol] 10.1 fL 6.2-12.0 [facility] Monocyte percentageOrdered B y: Stanley Godwin on 10-28-2024 Monocytes/100 WBC (Bld) 10.1 % High 0-10 [facility] Neutrophil percentageOrdered By: Stanley Godwin on 10-28-2024 Neutrophils/100 WBC (Bld) 64.5 % 47-70 [facility] No Panel InformationOrdered By: Stanley Godwin on 10-28-2024 Miscellaneous Test COMMENT . [facility] Comment on above: Test Ordered: [id number] Ustekinumab Drug + AntibodyUstekinumab 4.2 ug/mL ES [...] R, et al. Clin Gastroenterol Hepatol 2017;15: 7388-9001.4. Loreto CONNELL et al. Br J Dermatol;2015:173;855-857.5. Rashaun H, et al. PLOS ONE DOI;10:1371/journal.pone.4934022.6. Yue L, et al. Br J Dermatol 2014;170:261-273.These tests were developed and their performancecharacteristics determined by [employer]. They have not beencleared or approved by the Food and Drug Administration.However, both drug and anti-drug antibody assays have beendeveloped and validated in accordance with FDA Guidance forIndustry documents: Bioanalytical Method Validation (2013)and Assay Development and Validation for ImmunogenicityTesting of Therapeutic Protein Products (2016).Performed at: [facility] [address] [id number] Director: Gustavo Garcia MD, Phone: [phone] at: [facility] [id number] Director: Bhaskar Mane PhD, Phone: [phone] Nucleated red blood cell per centageOrdered By: Stanley Godwin on 10-28-2024 Nucleated RBC/100 WBC (Bld) [Ratio] 0 % 0-5 [facility] Platelet countOrdered By: Ra jeri Godwin on 10-28-2024 Platelets (Bld) [#/Vol] 319 10*3/uL 150-450 [facility] Potassium (Unsp spec) [Mass/ Vol]Ordered By: Stanley Godwin on 10-28-2024 Potassium [Moles/Vol] 3.9 mmol/L 3.3-5.1 [facility] Potassium measurement (mass/ volume)Ordered By: Stanley Godwin on 10-28-2024 Potassium (Unsp spec) [Mass/Vol] 3.9 mmol/L 3.3-5.1 [facility] RBC Auto (Bld) [#/Vol]Ordere d By: Stanley Godwin on 10-28-2024 RBC (Bld) [#/Vol] 4.52 10*6/uL 4.2-5.4 [facility] Serum creatinine measurement (mass/volume)Ordered By: Stanley Godwin on 10-28-2024 Creatinine [Mass/Vol] 0.72 mg/dL 0.70-1.20 [facility] Serum globulin measurementOr dered By: Stanley Godwin on 10-28-2024 Globulin (S) [Mass/Vol] 2.9 g/dL 2.2-4.2 [facility] Serum glucose measurement (m ass/volume)Ordered By: Stanley Godwin on 10-28-2024 Glucose [Mass/Vol] 96 mg/dL 70-99 [facility] Serum or plasma C reactive p rotein measurement (mass/volume)Ordered By: Stanley Godwin on 10-28-2024 CRP [Mass/Vol] 6.21 mg/L High 0.0-3.0 [facility] Serum or plasma alanine bergman otransferase (ALT) measurementOrdered By: Stanley Godwin on 10-28-2024 ALT [Catalytic activity/Vol] 19 U/L <35 [facility] Serum or plasma albumin elis urement (mass/volume)Ordered By: Stanley Godwin on 10-28-2024 Albumin [Mass/Vol] 4.3 g/dL 3.4-4.8 [facility] Serum or plasma albumin/glob ulin mass ratioOrdered By: Stanley Godwin on 10-28-2024 Albumin/Globulin [Mass ratio] 1.5 {ratio} 0.9-2.4 [facility] Serum or plasma alkaline radha sphatase measurementOrdered By: Stanley Godwin on 10-28-2024 ALP [Catalytic activity/Vol] 93 U/L 35-104 [facility] Serum or plasma calcium elis urement (mass/volume)Ordered By: Stanley Godwin on 10-28-2024 Calcium [Mass/Vol] 9.2 mg/dL 7.6-11.0 [facility] Serum or plasma urea nitroge n measurement (mass/volume)Ordered By: Stanley Godwin on 10-28-2024 Urea nitrogen [Mass/Vol] 15 mg/dL 4-19 [facility] Sodium levelOrdered By: Armen Aldana on 10-28-2024 Sodium [Moles/Vol] 137 mmol/L 133-145 [facility] Total proteinOrdered By: José Antonio Godwin on 10-28-2024 Protein [Mass/Vol] 7.2 g/dL 5.9-8.4 [facility] White blood cell (WBC) count Ordered By: Stanley Godwin on 10-28-2024 WBC (Bld) [#/Vol] 8.1 10*3/uL 4.4-11.0 [facility] Fluor Guidance for Spine Inj on 10-07-2024 Fluor Guidance for Spine Inj [facility] [address] [place] [id number] Fluor Guidance for Spine Inj MR#: [id number] Acct: [id number] Name: JUDY REAGAN ANN Rep #: [id number] : 1960 F 64 From: Jose Roberto Berg i DO PCP: Dr. Hernandez Mosley MD Status: [facility] Study: Fluor Guidance for Spine Inj Date of Exam: Exam# [id number] Ordering Dr: Montana Quiñonez MD PROCEDURE: Fluoroscopy [...] Montana Quiñonez MD; Dr. Hernandez Mosley MD Orthophotography Technician: Signed [facility] MR/POSTOP.ANEon 10-07-2024 MR/POSTOP.[facility] Medical Records Department [address] [place] [address] Anesthesia Postop Eval I 10/07/24 1208 MR#: [id number] Acct: [id number] Name: JUDY REAGAN ANN Rep #: [id number] : 1960 64 From: Montse Nicole CRNA PCP: Dr. Hernandez Mosley MD Status:REG SDC Y Race: C Location: [place] [address] Anesthesia: Postop Eval I Current Vital Signs [...] completed: Yes 10/07/24 1209 Date Montse Nicole [employer] Cosigner Signature: Date CC: Signed [facility] [id number] 10-07-2024 MR/POSTOPAN2 Medical Records Department [address] [place] [address] Anesthesia Postop Eval II 10/07/24 1226 MR#: [id number] Acct: [id number] Name: JUDY REAGAN ANN Rep #: [id number] : 1960 64 From: Yeimy Duggan PCP: Dr. Hernandez Mosley MD Status:REG SDC Y Race: C Location: [place] [address] Anesthesia Postop Eval I Sum Postop Eval Completion status Anesthesia document: Postop Eval 1 completed: Yes Anesthesia Postop Eval I Summary Anesthesia Postop Eval I Summary: Anesthesia Postop Eval I: Assessment Summary Airway patent Yes 10/07/24 12:09 [employer].LMIL Spontaneous unlabored Yes 10/07/24 12:09 [employer].LMIL respirations Mental status Awake 10/07/24 12:09 [employer].LMIL nausea No 10/07/24 12:09 [employer].LMIL Vomiting No 10/07/24 12:09 [employer].LMIL Anesthesia Postop Eval I: Fluid Summary Crystalloid volume administer 10 10/07/24 12:09 [employer].LMIL (ml) Colloids volume administered ( ml) Blood Product volume administered (ml) Total IV fluid infused 10 10/07/24 12:09 [employer].LMIL Anesthesia Postop Eval I: Summary Notes Anesthesia Complication No 10/07/24 12:09 [employer].LMIL Anesthesia Complication Comment: Post-operative progress note Anesthesia: Postop Eval II Evaluation Mental status: Awake Pain Level: 3 nausea: No Vomiting: No 10/07/24 1226 Date Yeimy Arzate Signature: Date CC: Signed Normal [facility] Operative Reporton 5 Operative Report [facility] Medical Records Department [address] [place] [address] Operative Report 10/07/24 1200 MR#: [id number] Acct: [id number] Name: JUDY REAGAN ANN Rep #: [id number] : 1960 64 From: Montana Quiñonez MD PCP: Dr. Hernandez Mosley MD Status:REG [facility] Location: [place] [address] Operative Report (Standard) Operative Information Date of Procedure: 10/07/24 Pre-Operative Diagnosis: Lumbosacral radiculopathy, lumbosacral degenerative disc disease, lumbosacral spinal stenosis, postlaminectomy syndrome of the lumbar spine Post-Operative Diagnosis: Lumbosacral radiculopathy, lumbosacral degenerative disc disease, lumbosacral spinal stenosis, postlaminectomy syndrome of the lumbar spine Surgery/Procedure Performed: Diagnostic/therapeutic caudal epidural steroid injection under fluoroscopic guidance. dynamicist: No Type of Anesthesia: Local MAC RN [...] MD; Dr. Hernandez Mosley MD Signed Normal [facility] Abdomen/Pelvis WITH Contrast on 08-12-2024 Abdomen/Pelvis WITH Contrast [facility] [address] [place], [place] [address] Abdomen/Pelvis WITH Contrast MR#: [id number] Acct: [id number] Name: JUDY REAGAN ANN Rep #: [id number] : 1960 F 64 From: Montana Dillard MD PCP: Dr. Hernandez Mosley MD Status: REG CLI Study: Abdomen/Pelvis WITH Contrast Date of Exam: Exam# [id number] Ordering Dr: Stanley Godwin DO [id number] STUDY: CT ABDOMEN AND PELVIS WITH CONTRAST [...] 18:27 EST Reading Location ID and State: [facility] / [place] Tel , Service support , CC: Dr. Hernandez Mosley MD; Stanleyelias Godwin DO Orthophotography Technician: Signed Normal [facility] Urgent Care Visit Reporton 1 08-25-2023 Urgent Care Visit Report [facility] [address] [place] [address] OFFICE VISIT Date of Service: 06/24/24 MR#: [id number] Acct: [id number] Name: JUDY REAGAN ANN Rep #: [id number] : 1960 Provider: IRA Stoddard Age/Sex: 64/F [place] [facility] [place] Status: Signed Intake Vital Signs 11/24/23 14:04 12/02/24 09:37 Height 5 ft 4 in 5 ft 4 in Weight: 164 lb BMI 28.1 BP 132/88 H Blood Pressure Location Rt brachial Position Sitting Respiration 16 Pulse 97 Pulse Source Monitor Temp 98.0 F Temp Source Oral Pulse Oximetry (%) 98 Oxygen Delivery Method room air Intake Visit Reasons: EAR PAIN Chief Complaint: EAR PAIN LT Pallet Rectifier Required: No Accompanied by: Self Is patient [...] chest pressure/shortness of breath/dyspnea on exertion. No zgwv-[id number] products taken to assist. Non-smoker. No other [...] drainage ( (more content not included)... Normal [facility] Absolute lymphocyte countOrd ered By: Sherif Benson on 09-26-2023 Lymphocytes Auto (Unsp spec) [#/Vol] 1.54 10*3/uL 0.83-4.51 [facility] Automated lymphocyte count a s percentage of total leukocytesOrdered By: Sherif Benson on 09-26-2023 Lymphocytes/100 WBC Auto (Unsp spec) 37.1 % 19-41 [facility] Basophil percentageOrdered B y: Sherif Benson on 09-26-2023 Basophils/100 WBC (Bld) 0.7 % 0-1 [facility] Chloride [Moles/Vol] 110 mmol/L 98-107 [facility] Eosinophils/100 WBC (Bld) 4.3 % 0-5 [facility] Glucose [Mass/Vol] 104 mg/dL 74-106 [facility] Comment on above: Fasting Glucose resu lt from 100 to 125 mg/dL suggests IMPAIRED HOMEOSTASIS per A.D.A. criteria. Hemoglobin (Bld) [Mass/Vol] 13.1 g/dL 12.0-15.0 [facility] Monocytes/100 WBC (Bld) 15.7 % 0-10 [facility] Neutrophils (Bld) [#/Vol] 1.7 10*3/uL 2.0-7.7 [facility] Neutrophils/100 WBC (Bld) 41.7 % 47-70 [facility] Potassium [Moles/Vol] 3.3 mmol/L 3.5-5.1 [facility] Sodium [Moles/Vol] 141 mmol/L 136-145 [facility] WBC (Bld) [#/Vol] 4.2 10*3/uL 4.4-11.0 [facility] Determination of erythrocyte mean corpuscular volume (MCV)Ordered By: Sherif Benson on 09-26-2023 MCV (RBC) [Entitic vol] 91.6 fL 81-99 [facility] Erythrocyte distribution wid th ratioOrdered By: Sherif Benson on 09-26-2023 Erythrocyte distribution width (RBC) [Ratio] 12.8 % 11.6-14.6 [facility] Erythrocyte distribution wid th standard deviationOrdered By: Sherif Benson on 09-26-2023 Erythrocyte distribution width (RBC) [Entitic vol] 42.8 fL 35.1-43.9 [facility] Hematocrit Auto (Bld) [Volum e fraction]Ordered By: Sherif Benson on 09-26-2023 Hematocrit (Bld) [Volume fraction] 40.6 % 37-47 [facility] Immature granulocytes/100 WB C Auto (Bld)Ordered By: Sherif Benson on 09-26-2023 Immature granulocytes/100 WBC (Bld) 0.500 % 0.0-0.9 [facility] Comment on above: IG% - Immature Granu locytes (promyelocytes, myelocytes and metamyelocytes) > 1% indicates that a LEFT SHIFT is Present. Laboratory - Chemistry and C hemistry - challengeOrdered By: Sherif Benson on 09-26-2023 CO2 [Moles/Vol] 27.0 mmol/L 21.0-32.0 [facility] Urea nitrogen/Creatinine [Mass ratio] 14.4 mg/mg 10-20 [facility] - Hematology and Cell countsOrdered By: Sherif Benson on 09-26-2023 MCH (RBC) [Entitic mass] 29.6 pg 27.0-32.0 [facility] MCHC (RBC) [Mass/Vol] 32.3 g/dL 32-36 [facility] Nucleated RBC/100 WBC (Bld) [Ratio] 0 % 0-5 [facility] Platelet mean volume (Bld) [Entitic vol] 9.6 fL 6.2-12.0 [facility] Platelets (Bld) [#/Vol] 296 10*3/uL 150-450 [facility] No Panel InformationOrdered By: Sherif Benson on 09-26-2023 Estimated Creatinine Clearance Calc 83.27 ml/min [facility] Estimated GFR (MDRD) Amer 110 mL/min >60 [facility] Comment on above: GFR Calc Estimated GFR (MDRD) Non-Af Amer 91 mL/min >60 [facility] Comment on above: Non- GFR Calc RBC Auto (Bld) [#/Vol]Ordere d By: Sherif Benson on 09-26-2023 RBC (Bld) [#/Vol] 4.43 10*6/uL 4.2-5.4 [facility] Serum or plasma calcium elis urement (mass/volume)Ordered By: Sherif Benson on 09-26-2023 Calcium [Mass/Vol] 8.9 mg/dL 8.5-10.1 [facility] Serum or plasma creatinine m easurement (mass/volume)Ordered By: Sherif Benson on 09-26-2023 Creatinine [Mass/Vol] 0.70 mg/dL 0.55-1.02 [facility] Comment on above: The validity of the calculated GFR & GFRAA in patients over 70 years has not been determined. Clinical correlation is essential. Serum or plasma urea nitroge n measurement (mass/volume)Ordered By: Sherif Benson on 09-26-2023 Urea nitrogen [Mass/Vol] 10 mg/dL 7-18 [facility] Thin prep Papanicolaou smear with manual screeningOrdered By: Sherif Benson on 09-26-2023 Thin prep Papanicolaou smear with manual screening 4 5-15 [facility] No Panel InformationOrdered By: Stanley Godiwn on 09-25-2023 Parathyroid Hormone (Intact) 79.8 pg/mL 18.4-80.1 [facility] Absolute lymphocyte countOrd ered By: Michael Lyman on 09-24-2023 Lymphocytes Auto (Unsp spec) [#/Vol] 1.89 10*3/uL 0.83-4.51 [facility] Albumin Elph [Mass/Vol]Order ed By: Stanley Godwin on 09-24-2023 Albumin [Mass/Vol] 3.4 g/dL 2.9-4.4 [facility] Atypical P-ANCA titerOrdered By: Stanley Godwin on 09-24-2023 Neutrophil cytoplasmic Ab.perinuclear.atypical IF (S) [Titer] Negative Negative [facility] Automated lymphocyte count a s percentage of total leukocytesOrdered By: Michael Lyman on 09-24-2023 Lymphocytes/100 WBC Auto (Unsp spec) 27.2 % 19-41 [facility] Basophil percentageOrdered B y: Stanley Godwin on 09-24-2023 LDH [Catalytic activity/Vol] 166 U/L 84-246 [facility] Basophil percentageOrdered B y: Jorge L Mccrayo on 09-24-2023 Basophil percentage 3.3 mg/dL 2.5-4.9 [facility] Bilirubin [Mass/Vol] 0.30 mg/dL 0.20-1.00 [facility] Comment on above: For patients on eltr ombopag therapy, use of Dimension [place] TBIL is not recommended. Protein [Mass/Vol] 6.5 g/dL 6.4-8.2 [facility] Basophil percentageOrdered B y: Michael Lyman on 09-24-2023 Basophils/100 WBC (Bld) 1.0 % 0-1 [facility] Chloride [Moles/Vol] 107 mmol/L 98-107 [facility] Eosinophils/100 WBC (Bld) 1.6 % 0-5 [facility] Glucose [Mass/Vol] 101 mg/dL 74-106 [facility] Comment on above: Fasting Glucose resu lt from 100 to 125 mg/dL suggests IMPAIRED HOMEOSTASIS per A.D.A. criteria. Hemoglobin (Bld) [Mass/Vol] 13.6 g/dL 12.0-15.0 [facility] Lactate [Moles/Vol] 0.7 mmol/L 0.4-2.0 [facility] Monocytes/100 WBC (Bld) 12.8 % 0-10 [facility] Neutrophils (Bld) [#/Vol] 4.0 10*3/uL 2.0-7.7 [facility] Neutrophils/100 WBC (Bld) 57.1 % 47-70 [facility] Potassium [Moles/Vol] 3.4 mmol/L 3.5-5.1 [facility] Sodium [Moles/Vol] 139 mmol/L 136-145 [facility] WBC (Bld) [#/Vol] 7.0 10*3/uL 4.4-11.0 [facility] Chitobioside IgA antibody as sayOrdered By: Stanley Godwin on 09-24-2023 Chitobioside IgA IA Qn 10 units 0-90 [facility] Comment on above: Negative: <80 Equivo marquez: 80-90 Positive: >90 Chocolate IgE serumOrdered B y: Stanley Godwin on 09-24-2023 Chocolate IgE Qn (S) <0.10 kU/L Class 0 [facility] Determination of erythrocyte mean corpuscular volume (MCV)Ordered By: Michael Lyman on 09-24-2023 MCV (RBC) [Entitic vol] 91.8 fL 81-99 [facility] Erythrocyte distribution wid th ratioOrdered By: Michael Lyman on 09-24-2023 Erythrocyte distribution width (RBC) [Ratio] 13.0 % 11.6-14.6 [facility] Erythrocyte distribution wid th standard deviationOrdered By: Michael Lyman on 09-24-2023 Erythrocyte distribution width (RBC) [Entitic vol] 43.7 fL 35.1-43.9 [facility] Erythrocyte sedimentation ra teOrdered By: Stanley Godwin on 09-24-2023 ESR (Bld) [Velocity] 9 mm/h 0-30 [facility] Hematocrit Auto (Bld) [Volum e fraction]Ordered By: Michael Lyman on 09-24-2023 Hematocrit (Bld) [Volume fraction] 42.8 % 37-47 [facility] Immature granulocytes/100 WB C Auto (Bld)Ordered By: Michael Lyman on 09-24-2023 Immature granulocytes/100 WBC (Bld) 0.300 % 0.0-0.9 [facility] Comment on above: IG% - Immature Granu locytes (promyelocytes, myelocytes and metamyelocytes) > 1% indicates that a LEFT SHIFT is Present. Interpretation of serum or p lasma protein pattern by immunofixation (narrative resultOrdered By: Stanley Godwin on 09-24-2023 Protein Fractions Immunofixation Angel [Interp] Not Observed g/dL Not Observed [facility] - Chemistry and C hemistry - challengeOrdered By: Jorge L Davaols on 09-24-2023 Albumin/Globulin [Mass ratio] 1.0 {ratio} 0.9-2.4 [facility] ALP [Catalytic activity/Vol] 86 U/L 45-117 [facility] ALT [Catalytic activity/Vol] 27 U/L 13-56 [facility] Globulin (S) [Mass/Vol] 3.2 g/dL 2.2-4.2 [facility] Magnesium [Mass/Vol] 2.3 mg/dL 1.6-2.6 [facility] - Chemistry and C hemistry - challengeOrdered By: Michael Lyman on 09-24-2023 CO2 [Moles/Vol] 29.0 mmol/L 21.0-32.0 [facility] Magnesium [Mass/Vol] 2.4 mg/dL 1.6-2.6 [facility] Urea nitrogen/Creatinine [Mass ratio] 16.2 mg/mg 10-20 [facility] - Hematology and Cell countsOrdered By: Michael Lyman on 09-24-2023 MCH (RBC) [Entitic mass] 29.2 pg 27.0-32.0 [facility] MCHC (RBC) [Mass/Vol] 31.8 g/dL 32-36 [facility] Nucleated RBC/100 WBC (Bld) [Ratio] 0 % 0-5 [facility] Platelet mean volume (Bld) [Entitic vol] 10.0 fL 6.2-12.0 [facility] Platelets (Bld) [#/Vol] 296 10*3/uL 150-450 [facility] - Miscellaneous t estsOrdered By: Stanley Godwin on 09-24-2023 Laboratory comment Angel (Report) Comment . [facility] Comment on above: Suggestive of Crohn' s Disease. Pattern is not conclusivefor disease behavior risk stratification. Service comment (Unsp spec) [Interp] Comment . [facility] Comment on above: Levels of Specific [...] Laminaribioside IgG IA Qn 10 units 0-60 [facility] Comment on above: Negative:<55 Equivoc al: 55-60 Positive: >60.Previous reported result: 10 unitsEdited by: HUSSAIN on 10/18/23:1442 AMENDED REPORT 10/18/23 1442 ALCA previously reported as: 10 units Negative:<55 Equivocal: 55-60 Positive: >60 No Panel InformationOrdered By: Stanley Godwin on 09-24-2023 Addendum Document Comment . [facility] Comment on above: Protein electrophore sis scan will follow via computer,mail, or headmaster/mistress delivery. Anti-Gliadin IgA Antibody 3 units 0-19 [facility] Comment on above: Negative 0 - 19 Weak Positive 20 - 30 Moderate to Strong Positive >30 Anti-Gliadin IgG Antibody 2 units 0-19 [facility] Comment on above: Negative 0 - 19 Weak Positive 20 - 30 Moderate to Strong Positive >30 C-Reactive Protein Extended Range 12.90 mg/L 0.0-3.0 [facility] Comment on above: C-Reactive Protein ( CRP) provides useful information for thediagnosis, therapy and monitoring of inflammatory processesand associated diseases. For the evaluation of Relative Riskfor Cardiovascular Disease, a High Sensitivity CRP (HSCRP)should be ordered. Centromere B Antibody <0.2 AI 0.0-0.9 [facility] Endomysial IgA Antibody Negative Negative [facility] Immunoglobulin G4 8 mg/dL 2-96 [facility] Immunoglobulin M 51 mg/dL 26-217 [facility] SALAS-1 Antibody <0.2 AI 0.0-0.9 [facility] Mussel Allergen IgE Antibody <0.10 kU/L Class 0 [facility] CERTIFIED [employer]ESSIONAL [employer]OLLER Antibody <0.2 AI 0.0-0.9 [facility] Saccharomyces cerevisiae (Marvin)IgG 54 units 0-50 [facility] Comment on above: Negative: <45 Equivo marquez: 45-50 Positive: >50 Shrimp Allergen <0.10 kU/L Class 0 [facility] SM Antibody <0.2 AI 0.0-0.9 [facility] SS-A/Ro IgG Antibody < 0.2 AI 0.0-0.9 [facility] SS-B/La IgG Antibody < 0.2 AI 0.0-0.9 [facility] Tissue Transglutaminase IgG Ab 3 U/mL 0-5 [facility] Comment on above: Negative 0 - 5 Weak Positive 6 - 9 Positive >9 No Panel InformationOrdered By: Michael Lyman on 09-24-2023 Estimated Creatinine Clearance Calc 68.94 ml/min [facility] Estimated GFR (MDRD) Amer 103 mL/min >60 [facility] Comment on above: GFR Calc Estimated GFR (MDRD) Non-Af Amer 85 mL/min >60 [facility] Comment on above: Non- GFR Calc RBC Auto (Bld) [#/Vol]Ordere d By: Michael Lyman on 09-24-2023 RBC (Bld) [#/Vol] 4.66 10*6/uL 4.2-5.4 [facility] Serum DNA double strand anti body assay (units/volume)Ordered By: Stanley Godwin on 09-24-2023 DNA double strand Ab Qn (S) 1 [IU]/mL 0-9 [facility] Comment on above: Negative <5 Equivoca l 5 - 9 Positive >9 Serum IgG subclass 1 measure ment (mass/volume)Ordered By: Stanley Godwin on 09-24-2023 IgG subclass 1 (S) [Mass/Vol] 572 mg/dL 248-810 [facility] Serum IgG subclass 2 measure ment (mass/volume)Ordered By: Stanley Godwin on 09-24-2023 IgG subclass 2 (S) [Mass/Vol] 184 mg/dL 130-555 [facility] Serum IgG subclass 3 measure ment (mass/volume)Ordered By: Stanley Godwin on 09-24-2023 IgG subclass 3 (S) [Mass/Vol] 36 mg/dL 15-102 [facility] Serum Scl-70 antibody assay (units/volume)Ordered By: Stanley Godwin on 09-24-2023 SCL-70 extractable nuclear Ab Qn (S) <0.2 AI 0.0-0.9 [facility] Serum [id number] measu rement by electrophoresisOrdered By: Stanley Godwin on 09-24-2023 Alpha 1 globulin Elph [Mass/Vol] 0.2 g/dL 0.0-0.4 [facility] Alpha 1 globulin Elph [Mass/Vol] 0.8 g/dL 0.4-1.0 [facility] Serum beef IgE antibody assa y (units/volume)Ordered By: Stanley Godwin on 09-24-2023 Beef IgE Qn (S) <0.10 kU/L Class 0 [facility] Serum classic neutrophil cyt oplasmic antibody assay (units/volume)Ordered By: Stanley Godwin on 09-24-2023 Neutrophil cytoplasmic Ab.classic Qn (S) <1:20 titer Neg:<1:20 [facility] Serum codfish IgE antibody a ssay (units/volume)Ordered By: Stanley Godwin on 09-24-2023 Codfish IgE Qn (S) <0.10 kU/L Class 0 [facility] Serum corn IgE antibody assa y (units/volume)Ordered By: Stanley Godwin on 09-24-2023 [place] IgE Qn (S) <0.10 kU/L Class 0 [facility] Serum cow milk IgE antibody assay (units/volume)Ordered By: Stanley Godwin on 09-24-2023 Cow milk IgE Qn (S) <0.10 kU/L Class 0 [facility] Serum globulin measurement ( mass/volume)Ordered By: Stanley Godwin on 09-24-2023 Globulin (S) [Mass/Vol] 2.8 g/dL 2.2-3.9 [facility] Serum or plasma IgA measurem ent (mass/volume)Ordered By: Stanley Godwin on 09-24-2023 IgA [Mass/Vol] 101 mg/dL 87-352 [facility] Serum or plasma IgG measurem ent (mass/volume)Ordered By: Stanley Godwin on 09-24-2023 IgG [Mass/Vol] 882 mg/dL 586-1602 [facility] IgG [Mass/Vol] Not Reportable [facility] Serum or plasma beta globuli n measurement by electrophoresis (mass/volume)Ordered By: Stanley Godwin on 09-24-2023 Beta globulin Elph [Mass/Vol] 0.9 g/dL 0.7-1.3 [facility] Serum or plasma calcium elis urement (mass/volume)Ordered By: Michael Lyman on 09-24-2023 Calcium [Mass/Vol] 9.1 mg/dL 8.5-10.1 [facility] Serum or plasma creatinine m easurement (mass/volume)Ordered By: Michael Lyman on 09-24-2023 Creatinine [Mass/Vol] 0.74 mg/dL 0.55-1.02 [facility] Comment on above: The validity of the calculated GFR & GFRAA in patients over 70 years has not been determined. Clinical correlation is essential. Serum or plasma gamma globul in measurement by electrophoresis (mass/volume)Ordered By: Stanley Godwin on 09-24-2023 Gamma globulin Elph [Mass/Vol] 0.9 g/dL 0.4-1.8 [facility] Serum or plasma gastrin elis urement (mass/volume)Ordered By: Stanley Godwin on 09-24-2023 Gastrin [Mass/Vol] 20 pg/mL 0-115 [facility] Comment on above: Siemens Immulite 200 0 Immunochemiluminometric assay (ICMA)Values obtained with different assay methods or kits cannotbe used interchangeably. Results cannot be interpreted asabsolute evidence of the presence or absence of malignantdisease.Performed at: [address] [id number] Director: Reji Caceres MD, Phone: [phone] Serum or plasma immunoelectr ophoresis interpretation (nominal result)Ordered By: Stanley Godwin on 09-24-2023 Interpretation IEP [Interp] Comment . [facility] Comment on above: No monoclonality det ected. Serum or plasma mannobioside IgG antibody assay by immunoassay (units/volume)Ordered By: Stanley Godwin on 09-24-2023 Mannobioside IgG IA Qn 15 units 0-100 [facility] Comment on above: Negative: <90 Equivo marquez: 90-100 Positive: >100 This test was developed and its performance characteristics determined by [employer]. It has not been cleared or approved by the Food and Drug Administration. The FDA has determined that such clearance or approval is not necessary. Serum or plasma thyroid stim ulating hormone (TSH) measurement (units/volume)Ordered By: Jorge L Davalos on 09-24-2023 TSH Qn 4.56 uIU/mL 0.358-3.74 [facility] Serum or plasma urea nitroge n measurement (mass/volume)Ordered By: Michael Lyman on 09-24-2023 Urea nitrogen [Mass/Vol] 12 mg/dL 7-18 [facility] Serum peanut IgE antibody as say (units/volume)Ordered By: Stanley Godwin on 09-24-2023 Peanut IgE Qn (S) <0.10 kU/L Class 0 [facility] Serum perinuclear neutrophil cytoplasmic antibody titer by immunofluorescenceOrdered By: Stanley Godwin on 09-24-2023 Neutrophil cytoplasmic Ab.perinuclear IF (S) [Titer] <1:20 titer Neg:<1:20 [facility] Comment on above: The presence of posi tive fluorescence exhibiting P-ANCA orC-ANCA patterns alone is not specific for the diagnosis ofWegener's Granulomatosis (WG) or microscopic polyangiitis.Decisions about treatment should not be based solely onANCA IFA results. The International ANCA Group Consensusrecommends follow up testing of positive sera with both RI-3 and MPO-ANCA enzyme immunoassays. As many as 5% serumsamples are positive only by EIA. Ref. AM J Clin Ljklyl0392;111:507-513. Serum pork IgE antibody assa y (units/volume)Ordered By: Stanley Godwin on 09-24-2023 Pork IgE Qn (S) <0.10 kU/L Class 0 [facility] Serum salmon IgE antibody as say (units/volume)Ordered By: Stanley Godwin on 09-24-2023 [place] IgE Qn (S) <0.10 kU/L Class 0 [facility] Serum soybean IgE antibody a ssay (units/volume)Ordered By: Stanley Godwin on 09-24-2023 Soybean IgE Qn (S) <0.10 kU/L Class 0 [facility] Serum tissue transglutaminas e IgA antibody assay (units/volume)Ordered By: Stanley Godwin on 09-24-2023 tTG IgA Qn (S) <2 U/mL 0-3 [facility] Comment on above: Negative 0 - 3 Weak Positive 4 - 10 Positive >10 Tissue Transglutaminase (tTG) has been identified as the endomysial antigen. Studies have demonstr- ated that endomysial IgA antibodies have over 99% specificity for gluten sensitive enteropathy. Serum tuna IgE antibody assa y (units/volume)Ordered By: Stanley Godwin on 09-24-2023 Tuna IgE Qn (S) <0.10 kU/L Class 0 [facility] Serum wheat IgE antibody ass ay (units/volume)Ordered By: Stanley Godwin on 09-24-2023 Wheat IgE Qn (S) <0.10 kU/L Class 0 [facility] Serum whole egg IgE antibody assay (units/volume)Ordered By: Stanley Godwin on 09-24-2023 Whole Egg IgE Qn (S) <0.10 kU/L Class 0 [facility] Comment on above: Performed at: [address] [id number] Director: Reji Caceres MD, Phone: [phone] Thin prep Papanicolaou smear with manual screeningOrdered By: Stanley Godwin on 09-24-2023 Thin prep Papanicolaou smear with manual screening 88.0 ng/mL 0.0-101.8 [facility] Comment on above: Chromogranin A perfo rmed by [employer]/weeSPIN KRYPTORmethodologyValues obtained with different assay methods or kits cannotbe used interchangeably.Performed at: [facility] [employer] [id number] Director: Bhaskar Mane PhD, Phone: [phone] at: [employer] [id number] Director: Reji Caceres MD, Phone: [phone] Thin prep Papanicolaou smear with manual screening 1.3 0.7-1.7 [facility] Thin prep Papanicolaou smear with manual screeningOrdered By: Jorge L Davalos on 09-24-2023 Thin prep Papanicolaou smear with manual screening 3.3 g/dL 3.2-5.0 [facility] Thin prep Papanicolaou smear with manual screening 15 U/L 15-37 [facility] Thin prep Papanicolaou smear with manual screeningOrdered By: Michael Lyman on 09-24-2023 Thin prep Papanicolaou smear with manual screening 3 5-15 [facility] Total protein bloodOrdered B y: Stanley Godwin on 09-24-2023 Protein [Mass/Vol] 6.2 g/dL 6.0-8.5 [facility] Absolute lymphocyte countOrd ered By: Hernandez Dhillonok on 09-21-2023 Lymphocytes Auto (Unsp spec) [#/Vol] 1.44 10*3/uL 0.83-4.51 [facility] Automated lymphocyte count a s percentage of total leukocytesOrdered By: Hernandez Mosley on 09-21-2023 Lymphocytes/100 WBC Auto (Unsp spec) 13.4 % 19-41 [facility] Basophil percentageOrdered B y: Hernandez Mosley on 09-21-2023 Basophils/100 WBC (Bld) 0.5 % 0-1 [facility] Bilirubin [Mass/Vol] 0.80 mg/dL 0.20-1.00 [facility] Comment on above: For patients on eltr ombopag therapy, use of Dimension [place] TBIL is not recommended. Chloride [Moles/Vol] 101 mmol/L 98-107 [facility] Eosinophils/100 WBC (Bld) 0.5 % 0-5 [facility] Glucose [Mass/Vol] 99 mg/dL 74-106 [facility] Hemoglobin (Bld) [Mass/Vol] 13.5 g/dL 12.0-15.0 [facility] Monocytes/100 WBC (Bld) 8.0 % 0-10 [facility] Neutrophils (Bld) [#/Vol] 8.3 10*3/uL 2.0-7.7 [facility] Neutrophils/100 WBC (Bld) 77.3 % 47-70 [facility] Potassium [Moles/Vol] 3.6 mmol/L 3.5-5.1 [facility] Protein [Mass/Vol] 7.5 g/dL 6.4-8.2 [facility] Sodium [Moles/Vol] 135 mmol/L 136-145 [facility] WBC (Bld) [#/Vol] 10.7 10*3/uL 4.4-11.0 [facility] Clostridioides difficile nuc leic acid assay by PCROrdered By: [facility] Dimitri on 09-21-2023 C. difficile DNA BROCK+probe Ql (Unsp spec) [facility] Determination of erythrocyte mean corpuscular volume (MCV)Ordered By: Hernandez Mosley on 09-21-2023 MCV (RBC) [Entitic vol] 90.5 fL 81-99 [facility] Erythrocyte distribution wid th ratioOrdered By: [facility] Erythrocyte distribution width (RBC) [Ratio] 12.8 % 11.6-14.6 [facility] Erythrocyte distribution wid th standard deviationOrdered By: [facility] on 09-21-2023 Erythrocyte distribution width (RBC) [Entitic vol] 42.5 fL 35.1-43.9 [facility] Hematocrit Auto (Bld) [Volum e fraction]Ordered By: Hernandez Dimitri 09-21-2023 Hematocrit (Bld) [Volume fraction] 42.0 % 37-47 [facility] Immature granulocytes/100 WB C Auto (Bld)[facility] Immature granulocytes/100 WBC (Bld) 0.300 % 0.0-0.9 [facility] Comment on above: IG% - Immature Granu locytes (promyelocytes, myelocytes and metamyelocytes) > 1% indicates that a LEFT SHIFT is Present. Laboratory - Chemistry and C hemistry - challengeOrdered By: Hernandez Mosley on 09-21-2023 Albumin/Globulin [Mass ratio] 1.2 {ratio} 0.9-2.4 [facility] ALP [Catalytic activity/Vol] 110 U/L 45-117 [facility] ALT [Catalytic activity/Vol] 36 U/L 13-56 [facility] CO2 [Moles/Vol] 27.0 mmol/L 21.0-32.0 [facility] Globulin (S) [Mass/Vol] 3.4 g/dL 2.2-4.2 [facility] Urea nitrogen/Creatinine [Mass ratio] 15.0 mg/mg 10-20 [facility] Laboratory - Hematology and Cell countsOrdered By: Hernandez Mosley on 09-21-2023 MCH (RBC) [Entitic mass] 29.1 pg 27.0-32.0 [facility] MCHC (RBC) [Mass/Vol] 32.1 g/dL 32-36 [facility] Nucleated RBC/100 WBC (Bld) [Ratio] 0 % 0-5 [facility] Platelet mean volume (Bld) [Entitic vol] 9.9 fL 6.2-12.0 [facility] Platelets (Bld) [#/Vol] 306 10*3/uL 150-450 [facility] Lower GI hemoglobin IA Ql (S tl)Ordered By: Hernandez Mosley on 09-21-2023 Stool Occult Blood (PIEDAD) Positive [facility] No Panel InformationOrdered By: Hernandez Mosley on 09-21-2023 Miscellaneous Test See comment [facility] Comment on above: TEST RESULTS LIMITSS tool CultureSalmonella/Shigella Screen Final reportResult 1No Salmonella or Shigella recovered.Campylobacter Culture Final reportResult 1No Campylobacter species isolated.E coli Shiga Toxin EIA Negative Negative [facility] ORIGINAL REPORT ON FILE IN LAB CONTAINS ADDITIONAL TEST SITE INFORMATION. Estimated GFR (MDRD) Amer 104 mL/min >60 [facility] Comment on above: GFR Calc Estimated GFR (MDRD) Non-Af Amer 86 mL/min >60 [facility] Comment on above: Non- GFR Calc Ova and parasitesOrdered By: Hernandez Mosley on 09-21-2023 Ova and parasites identified LM Nom (Unsp spec) [facility] RBC Auto (Bld) [#/Vol]Ordere d By: Hernandez Mosley on 09-21-2023 RBC (Bld) [#/Vol] 4.64 10*6/uL 4.2-5.4 [facility] Serum or plasma calcium elis urement (mass/volume)Ordered By: Hernandez Mosley on 09-21-2023 Calcium [Mass/Vol] 9.1 mg/dL 8.5-10.1 [facility] Serum or plasma creatinine m easurement (mass/volume)Ordered By: Hernandez Mosley on 09-21-2023 Creatinine [Mass/Vol] 0.73 mg/dL 0.55-1.02 [facility] Comment on above: The validity of the calculated GFR & GFRAA in patients over 70 years has not been determined. Clinical correlation is essential. Serum or plasma urea nitroge n measurement (mass/volume)Ordered By: Hernandez Mosley on 09-21-2023 Urea nitrogen [Mass/Vol] 11 mg/dL 7-18 [facility] Thin prep Papanicolaou smear with manual screeningOrdered By: Hernandez Mosley on 09-21-2023 Thin prep Papanicolaou smear with manual screening 4.1 g/dL 3.2-5.0 [facility] Thin prep Papanicolaou smear with manual screening 19 U/L 15-37 [facility] Thin prep Papanicolaou smear with manual screening 7 5-15 [facility] Absolute lymphocyte countOrd ered By: Hernandez Mosley on 09-18-2023 Lymphocytes Auto (Unsp spec) [#/Vol] 1.91 10*3/uL 0.83-4.51 [facility] Automated lymphocyte count a s percentage of total leukocytesOrdered By: Hernandez Mosley on 09-18-2023 Lymphocytes/100 WBC Auto (Unsp spec) 31.3 % 19-41 [facility] Basophil percentageOrdered B y: Hernandez Mosley on 09-18-2023 Basophils/100 WBC (Bld) 0.8 % 0-1 [facility] Bilirubin [Mass/Vol] 0.30 mg/dL 0.20-1.00 [facility] Comment on above: For patients on eltr ombopag therapy, use of Dimension [place] TBIL is not recommended. Chloride [Moles/Vol] 105 mmol/L 98-107 [facility] Eosinophils/100 WBC (Bld) 1.8 % 0-5 [facility] Glucose [Mass/Vol] 103 mg/dL 74-106 [facility] Comment on above: Fasting Glucose resu lt from 100 to 125 mg/dL suggests IMPAIRED HOMEOSTASIS per A.D.A. criteria. Hemoglobin (Bld) [Mass/Vol] 13.9 g/dL 12.0-15.0 [facility] Monocytes/100 WBC (Bld) 10.3 % 0-10 [facility] Neutrophils (Bld) [#/Vol] 3.4 10*3/uL 2.0-7.7 [facility] Neutrophils/100 WBC (Bld) 55.3 % 47-70 [facility] Potassium [Moles/Vol] 3.7 mmol/L 3.5-5.1 [facility] Protein [Mass/Vol] 7.9 g/dL 6.4-8.2 [facility] Sodium [Moles/Vol] 137 mmol/L 136-145 [facility] WBC (Bld) [#/Vol] 6.1 10*3/uL 4.4-11.0 [facility] Determination of erythrocyte mean corpuscular volume (MCV)Ordered By: Hernandez Mosley on 09-18-2023 MCV (RBC) [Entitic vol] 91.6 fL 81-99 [facility] Erythrocyte distribution wid th ratioOrdered By: Hernandez Mosley on 09-18-2023 Erythrocyte distribution width (RBC) [Ratio] 12.9 % 11.6-14.6 [facility] Erythrocyte distribution wid th standard deviationOrdered By: Heranndez Mosley on 09-18-2023 Erythrocyte distribution width (RBC) [Entitic vol] 43.3 fL 35.1-43.9 [facility] Hematocrit Auto (Bld) [Volum e fraction]Ordered By: Hernandez Mosley on 09-18-2023 Hematocrit (Bld) [Volume fraction] 43.9 % 37-47 [facility] Immature granulocytes/100 WB C Auto (Bld)Ordered By: Hernandez Mosley on 09-18-2023 Immature granulocytes/100 WBC (Bld) 0.500 % 0.0-0.9 [facility] Comment on above: IG% - Immature Granu locytes (promyelocytes, myelocytes and metamyelocytes) > 1% indicates that a LEFT SHIFT is Present. Laboratory - Chemistry and C hemistry - challengeOrdered By: Hernandez Mosley on 09-18-2023 Albumin/Globulin [Mass ratio] 1.0 {ratio} 0.9-2.4 [facility] ALP [Catalytic activity/Vol] 115 U/L 45-117 [facility] ALT [Catalytic activity/Vol] 33 U/L 13-56 [facility] CO2 [Moles/Vol] 25.0 mmol/L 21.0-32.0 [facility] Globulin (S) [Mass/Vol] 3.9 g/dL 2.2-4.2 [facility] Urea nitrogen/Creatinine [Mass ratio] 19.8 mg/mg 10-20 [facility] Laboratory - Hematology and Cell countsOrdered By: Hernandez Mosley on 09-18-2023 MCH (RBC) [Entitic mass] 29.0 pg 27.0-32.0 [facility] MCHC (RBC) [Mass/Vol] 31.7 g/dL 32-36 [facility] Nucleated RBC/100 WBC (Bld) [Ratio] 0 % 0-5 [facility] Platelet mean volume (Bld) [Entitic vol] 10.3 fL 6.2-12.0 [facility] Platelets (Bld) [#/Vol] 324 10*3/uL 150-450 [facility] No Panel InformationOrdered By: Hernandez Mosley on 09-18-2023 Estimated GFR (MDRD) Amer 100 mL/min >60 [facility] Comment on above: GFR Calc Estimated GFR (MDRD) Non-Af Amer 83 mL/min >60 [facility] Comment on above: Non- GFR Calc RBC Auto (Bld) [#/Vol]Ordere d By: Hernandez Mosley on 09-18-2023 RBC (Bld) [#/Vol] 4.79 10*6/uL 4.2-5.4 [facility] Serum or plasma calcium elis urement (mass/volume)Ordered By: Hernandez Mosley on 09-18-2023 Calcium [Mass/Vol] 9.5 mg/dL 8.5-10.1 [facility] Serum or plasma creatinine m easurement (mass/volume)Ordered By: Hernandez Dimitri on 09-18-2023 Creatinine [Mass/Vol] 0.76 mg/dL 0.55-1.02 [facility] Comment on above: The validity of the calculated GFR & GFRAA in patients over 70 years has not been determined. Clinical correlation is essential. Serum or plasma thyroid stim ulating hormone (TSH) measurement (units/volume)Ordered By: Hernandez Dimitri on 09-18-2023 TSH Qn 1.21 uIU/mL 0.358-3.74 [facility] Serum or plasma urea nitroge n measurement (mass/volume)Ordered By: Hernandez Dimitri on 09-18-2023 Urea nitrogen [Mass/Vol] 15 mg/dL 7-18 [facility] Thin prep Papanicolaou smear with manual screeningOrdered By: [facility] Thin prep Papanicolaou smear with manual screening 4.0 g/dL 3.2-5.0 [facility] Thin prep Papanicolaou smear with manual screening 20 U/L 15-37 [facility] Thin prep Papanicolaou smear with manual screening 7 5-15 [facility] Absolute lymphocyte countOrd ered By: Hernandez Mosley on 07-05-2023 Lymphocytes Auto (Unsp spec) [#/Vol] 2.32 10*3/uL 0.83-4.51 [facility] Basophil percentageOrdered B y: Hernandez Dimitri on 07-05-2023 Basophils/100 WBC (Bld) 0.7 % 0-1 [facility] Bilirubin [Mass/Vol] 0.30 mg/dL 0.20-1.00 [facility] Comment on above: For patients on eltr ombopag therapy, use of Dimension [place] TBIL is not recommended. Chloride [Moles/Vol] 100 mmol/L 98-107 [facility] Cholesterol [Mass/Vol] 205 mg/dL <200 [facility] Comment on above: <200 mg/dL Desirable 200-240 mg/dL Borderline >240 mg/dL High Risk Eosinophils/100 WBC (Bld) 1.0 % 0-5 [facility] Glucose [Mass/Vol] 145 mg/dL 74-106 [facility] Comment on above: Fasting Glucose resu lt greater than or equal to 126 mg/dL suggests DIABETES MELLITUS per A.D.A. criteria. Neutrophils (Bld) [#/Vol] 5.2 10*3/uL 2.0-7.7 [facility] Neutrophils/100 WBC (Bld) 62.2 % 47-70 [facility] Potassium [Moles/Vol] 3.7 mmol/L 3.5-5.1 [facility] Protein [Mass/Vol] 7.3 g/dL 6.4-8.2 [facility] Sodium [Moles/Vol] 137 mmol/L 136-145 [facility] Triglyceride [Mass/Vol] 94 mg/dL <199 [facility] Comment on above: The drugs N-Acetylcy steine and Metamizole may falsely depress this assay.Serum Triglycerides Reference Interval Normal <150 mg/dL Borderline high 150 - 199 mg/dL High 200 - 499 mg/dL Very High > or = 500 mg/dL WBC (Bld) [#/Vol] 8.3 10*3/uL 4.4-11.0 [facility] Blood erythrocytes count (nu mber/volume)Ordered By: Hernandez Mosley on 07-05-2023 RBC (Bld) [#/Vol] 4.13 10*6/uL 4.2-5.4 [facility] Blood hemoglobin measurement (mass/volume)Ordered By: Hernandez Mosley on 07-05-2023 Hemoglobin (Bld) [Mass/Vol] 12.3 g/dL 12.0-15.0 [facility] Blood lymphocytes/100 leukoc ytesOrdered By: Hernandez Mosley on 07-05-2023 Lymphocytes/100 WBC (Bld) 27.9 % 19-41 [facility] Blood monocytes/100 leukocyt esOrdered By: Hernandez Mosley on 07-05-2023 Monocytes/100 WBC (Bld) 7.0 % 0-10 [facility] Blood platelet mean volumeOr dered By: Hernandez Mosley on 07-05-2023 Platelet mean volume (Bld) [Entitic vol] 9.8 fL 6.2-12.0 [facility] Determination of erythrocyte mean corpuscular volume (MCV)Ordered By: Hernandez Mosley on 07-05-2023 MCV (RBC) [Entitic vol] 93.9 fL 81-99 [facility] Hematocrit Auto (Bld) [Volum e fraction]Ordered By: Hernandez Mosley on 07-05-2023 Hematocrit (Bld) [Volume fraction] 38.8 % 37-47 [facility] Laboratory - Chemistry and C hemistry - challengeOrdered By: Hernandez Mosley on 07-05-2023 ALP [Catalytic activity/Vol] 93 U/L 45-117 [facility] [facility] ALT [Catalytic activity/Vol] 23 U/L 13-56 [facility] CO2 [Moles/Vol] 28.0 mmol/L 21.0-32.0 [facility] Globulin (S) [Mass/Vol] 3.9 g/dL 2.2-4.2 [facility] Urea nitrogen/Creatinine [Mass ratio] 12.0 mg/mg 10-20 [facility] Laboratory - Hematology and Cell countsOrdered By: Hernandez Mosley on 07-05-2023 Erythrocyte distribution width (RBC) [Entitic vol] 43.9 fL 35.1-43.9 [facility] Erythrocyte distribution width (RBC) [Ratio] 12.7 % 11.6-14.6 [facility] Immature granulocytes/100 WBC (Bld) 1.200 % 0.0-0.9 [facility] Comment on above: IG% - Immature Granu locytes (promyelocytes, myelocytes and metamyelocytes) > 1% indicates that a LEFT SHIFT is Present. MCH (RBC) [Entitic mass] 29.8 pg 27.0-32.0 [facility] Nucleated RBC/100 WBC (Bld) [Ratio] 0 % 0-5 [facility] MCHC Auto (RBC) [Mass/Vol]Or dered By: Hernandez Mosley on 07-05-2023 MCHC (RBC) [Mass/Vol] 31.7 g/dL 32-36 [facility] No Panel InformationOrdered By: Hernandez Mosley on 07-05-2023 Estimated GFR (MDRD) Amer 101 mL/min >60 [facility] Comment on above: GFR Calc Estimated GFR (MDRD) Non-Af Amer 83 mL/min >60 [facility] Comment on above: Non- GFR Calc Thyroid Stimulating Hormone (TSH) 0.67 uIU/mL 0.358-3.74 [facility] Platelets bldOrdered By: Hernandez Mosley on 07-05-2023 Platelets (Bld) [#/Vol] 537 10*3/uL 150-450 [facility] Serum or plasma albumin elis urement (mass/volume)Ordered By: Hernandez Mosley 07-05-2023 Albumin [Mass/Vol] 3.4 g/dL 3.2-5.0 [facility] Serum or plasma albumin/glob ulin mass ratioOrdered By: Hernandez Mosley 07-05-2023 Albumin/Globulin [Mass ratio] 0.9 {ratio} 0.9-2.4 [facility] Serum or plasma calcium elis urement (mass/volume)Ordered By: Hernandez Mosley 07-05-2023 Calcium [Mass/Vol] 8.7 mg/dL 8.5-10.1 [facility] Serum or plasma cholesterol in HDL measurement (mass/volume)Ordered By: Hernandez Mosley 07-05-2023 Cholesterol in HDL [Mass/Vol] 62 mg/dL >40 [facility] Comment on above: The drugs N-Acetylcy steine and Metamizole may falsely depress this assay. Reference Range HDL <40 mg/dL Low HDL Cholesterol HDL >or= 60 mg/dL High HDL Cholesterol Serum or plasma cholesterol in VLDL measurement (mass/volume)Ordered By: Hernandez Mosley 07-05-2023 Cholesterol in VLDL [Mass/Vol] 19 mg/dL 5-40 [facility] Serum or plasma creatinine m easurement (mass/volume)Ordered By: Hernandez Mosley 07-05-2023 Creatinine [Mass/Vol] 0.75 mg/dL 0.55-1.02 [facility] Comment on above: The validity of the calculated GFR & GFRAA in patients over 70 years has not been determined. Clinical correlation is essential. Serum or plasma low density lipoprotein (LDL) cholesterol measurement (mass/volume)Ordered By: Hernandez Mosley 07-05-2023 Cholesterol in LDL [Mass/Vol] 124 mg/dL 0-130 [facility] Serum or plasma urea nitroge n measurement (mass/volume)Ordered By: Hernandez Mosley 07-05-2023 Urea nitrogen [Mass/Vol] 9 mg/dL 7-18 [facility] Thin prep Papanicolaou smear with manual screeningOrdered By: Hernandez Mosley on 07-05-2023 Thin prep Papanicolaou smear with manual screening 17 U/L 15-37 [facility] Thin prep Papanicolaou smear with manual screening 9 5-15 [facility] Glucose Glucometer (BldC) [M ass/Vol]Ordered By: Shabbir Birch on 06-21-2023 Glucose [Mass/Vol] 119 mg/dL 74-106 [facility] Comment on above: MANAGEMENT OF PATIEN T CARE PER NURSING PROTOCOL Absolute lymphocyte countOrd ered By: Shabbir Birch on 06-19-2023 Lymphocytes Auto (Unsp spec) [#/Vol] 1.75 10*3/uL 0.83-4.51 [facility] Basophil percentageOrdered B y: Shabbir Birch on 06-19-2023 Basophils/100 WBC (Bld) 0.7 % 0-1 [facility] Chloride [Moles/Vol] 101 mmol/L 98-107 [facility] Eosinophils/100 WBC (Bld) 0.4 % 0-5 [facility] Glucose [Mass/Vol] 99 mg/dL 74-106 [facility] Neutrophils (Bld) [#/Vol] 8.0 10*3/uL 2.0-7.7 [facility] Neutrophils/100 WBC (Bld) 74.7 % 47-70 [facility] Potassium [Moles/Vol] 3.7 mmol/L 3.5-5.1 [facility] Sodium [Moles/Vol] 136 mmol/L 136-145 [facility] WBC (Bld) [#/Vol] 10.7 10*3/uL 4.4-11.0 [facility] Blood erythrocytes count (nu mber/volume)Ordered By: Shabbir Birch on 06-19-2023 RBC (Bld) [#/Vol] 5.17 10*6/uL 4.2-5.4 [facility] Blood hemoglobin measurement (mass/volume)Ordered By: Shabbir Birch on 06-19-2023 Hemoglobin (Bld) [Mass/Vol] 15.4 g/dL 12.0-15.0 [facility] Blood lymphocytes/100 leukoc ytesOrdered By: Shabbir Birch on 06-19-2023 Lymphocytes/100 WBC (Bld) 16.3 % 19-41 [facility] Blood monocytes/100 leukocyt esOrdered By: Shabbir Birch on 06-19-2023 Monocytes/100 WBC (Bld) 7.5 % 0-10 [facility] Blood platelet mean volumeOr dered By: Shabbir Birch on 06-19-2023 Platelet mean volume (Bld) [Entitic vol] 10.1 fL 6.2-12.0 [facility] Determination of erythrocyte mean corpuscular volume (MCV)Ordered By: Shabbir Birch on 06-19-2023 MCV (RBC) [Entitic vol] 91.5 fL 81-99 [facility] Hematocrit Auto (Bld) [Volum e fraction]Ordered By: Shabbir Birch on 06-19-2023 Hematocrit (Bld) [Volume fraction] 47.3 % 37-47 [facility] INR in Blood by Coagulation assayOrdered By: Shabbir Birch on 06-19-2023 INR Coag (Bld) [Relative time] 1.0 {INR} [facility] - Chemistry and C hemistry - challengeOrdered By: Shabbir Birch on 06-19-2023 CO2 [Moles/Vol] 29.0 mmol/L 21.0-32.0 [facility] Magnesium [Mass/Vol] 2.0 mg/dL 1.6-2.6 [facility] Urea nitrogen/Creatinine [Mass ratio] 18.5 mg/mg 10-20 [facility] - CoagulationOrde red By: Shabbir Birch on 06-19-2023 aPTT Coag (Bld) [Time] 28.8 s 24.1-36.2 [facility] PT Coag (PPP) [Time] 12.6 s 11.7-14.9 [facility] Laboratory - Hematology and Cell countsOrdered By: Shabbir Birch on 06-19-2023 Erythrocyte distribution width (RBC) [Entitic vol] 44.7 fL 35.1-43.9 [facility] Erythrocyte distribution width (RBC) [Ratio] 13.2 % 11.6-14.6 [facility] Immature granulocytes/100 WBC (Bld) 0.400 % 0.0-0.9 [facility] Comment on above: IG% - Immature Granu locytes (promyelocytes, myelocytes and metamyelocytes) > 1% indicates that a LEFT SHIFT is Present. MCH (RBC) [Entitic mass] 29.8 pg 27.0-32.0 [facility] Nucleated RBC/100 WBC (Bld) [Ratio] 0 % 0-5 [facility] MCHC Auto (RBC) [Mass/Vol]Or dered By: Shabbir Birch on 06-19-2023 MCHC (RBC) [Mass/Vol] 32.6 g/dL 32-36 [facility] No Panel InformationOrdered By: Shabbir Birch on 06-19-2023 Estimated GFR (MDRD) Amer 92 mL/min >60 [facility] Comment on above: GFR Calc Estimated GFR (MDRD) Non-Af Amer 76 mL/min >60 [facility] Comment on above: Non- GFR Calc Fructosamine 236 umol/L 0-285 [facility] Comment on above: Published reference interval for apparently healthysubjects between age 20 and 60 is 205 - 285 umol/L and in apoorly controlled diabetic population is 228 - 563 umol/Lwith a mean of 396 umol/L.Performed at: [facility] [id number] Director: Bhaskar Mane PhD, Phone: [phone] Nasal Screen MRSA/MSSA [facility] Platelets bldOrdered By: Edward Birch on 06-19-2023 Platelets (Bld) [#/Vol] 388 10*3/uL 150-450 [facility] Serum or plasma calcium elis urement (mass/volume)Ordered By: Shabbir Birch on 06-19-2023 Calcium [Mass/Vol] 9.7 mg/dL 8.5-10.1 [facility] Serum or plasma creatinine m easurement (mass/volume)Ordered By: Shabbir Birch on 06-19-2023 Creatinine [Mass/Vol] 0.81 mg/dL 0.55-1.02 [facility] Comment on above: The validity of the calculated GFR & GFRAA in patients over 70 years has not been determined. Clinical correlation is essential. Serum or plasma urea nitroge n measurement (mass/volume)Ordered By: Shabbir Birch on 06-19-2023 Urea nitrogen [Mass/Vol] 15 mg/dL 7-18 [facility] Thin prep Papanicolaou smear with manual screeningOrdered By: [facility] on [facility]-19-2023 Thin prep Papanicolaou smear with manual screening 6 5-15 [facility] Whole blood hemoglobin A1c/t otal hemoglobin ratio (mass fraction)Ordered By: Shabbir Birch on 06-19-2023 HbA1c (Bld) [Mass fraction] 5.5 % 3.8-5.6 [facility] Comment on above: Normal < 5.7 % Predi abetic 5.7 - 6.4 % Diabetic >or= 6.5 % Please note range changes. Culture, urineOrdered By: Dr Jaswinder Wolfe on 10-15-2022 Bacteria identified Cx Nom (U) Pseudomonas aeruginosa [facility] Absolute lymphocyte countOrd ered By: Dr. Hernández on 10-14-2022 Lymphocytes Auto (Unsp spec) [#/Vol] 1.48 10*3/uL 0.83-4.51 [facility] Basophil percentageOrdered B y: Dr. Hernández on 10-14-2022 Basophils/100 WBC (Bld) 0.4 % 0-1 [facility] Chloride [Moles/Vol] 100 mmol/L 98-107 [facility] Eosinophils/100 WBC (Bld) 1.9 % 0-5 [facility] Glucose [Mass/Vol] 145 mg/dL 74-106 [facility] Comment on above: Fasting Glucose resu lt greater than or equal to 126 mg/dL suggests DIABETES MELLITUS per A.D.A. criteria. Neutrophils (Bld) [#/Vol] 6.9 10*3/uL 2.0-7.7 [facility] Neutrophils/100 WBC (Bld) 71.5 % 47-70 [facility] Potassium [Moles/Vol] 3.4 mmol/L 3.5-5.1 [facility] Sodium [Moles/Vol] 137 mmol/L 136-145 [facility] WBC (Bld) [#/Vol] 9.6 10*3/uL 4.4-11.0 [facility] Blood erythrocytes count (nu mber/volume)Ordered By: Dr. Hernández on 10-14-2022 RBC (Bld) [#/Vol] 3.56 10*6/uL 4.2-5.4 [facility] Blood hemoglobin measurement (mass/volume)Ordered By: Dr. Hernández on 10-14-2022 Hemoglobin (Bld) [Mass/Vol] 10.7 g/dL 12.0-15.0 [facility] Blood lymphocytes/100 leukoc ytesOrdered By: Dr. Hernández on 10-14-2022 Lymphocytes/100 WBC (Bld) 15.4 % 19-41 [facility] Blood monocytes/100 leukocyt esOrdered By: Dr. Hernández on 10-14-2022 Monocytes/100 WBC (Bld) 10.3 % 0-10 [facility] Blood platelet mean volumeOr dered By: Dr. Hernández on 10-14-2022 Platelet mean volume (Bld) [Entitic vol] 10.0 fL 6.2-12.0 [facility] Determination of erythrocyte mean corpuscular volume (MCV)Ordered By: Dr. Hernández on 10-14-2022 MCV (RBC) [Entitic vol] 95.8 fL 81-99 [facility] Hematocrit Auto (Bld) [Volum e fraction]Ordered By: Dr. Hernández on 10-14-2022 Hematocrit (Bld) [Volume fraction] 34.1 % 37-47 [facility] - Chemistry and C hemistry - challengeOrdered By: Dr. Hernández on 10-14-2022 CO2 [Moles/Vol] 29.0 mmol/L 21.0-32.0 [facility] Urea nitrogen/Creatinine [Mass ratio] 8.3 mg/mg 10-20 [facility] - Hematology and Cell countsOrdered By: Dr. Hernández on 10-14-2022 Erythrocyte distribution width (RBC) [Entitic vol] 45.2 fL 35.1-43.9 [facility] Erythrocyte distribution width (RBC) [Ratio] 12.8 % 11.6-14.6 [facility] Immature granulocytes/100 WBC (Bld) 0.500 % 0.0-0.9 [facility] Comment on above: IG% - Immature Granu locytes (promyelocytes, myelocytes and metamyelocytes) > 1% indicates that a LEFT SHIFT is Present. MCH (RBC) [Entitic mass] 30.1 pg 27.0-32.0 [facility] Nucleated RBC/100 WBC (Bld) [Ratio] 0 % 0-5 [facility] MCHC Auto (RBC) [Mass/Vol]Or dered By: Dr. Hernández on 10-14-2022 MCHC (RBC) [Mass/Vol] 31.4 g/dL 32-36 [facility] No Panel InformationOrdered By: Dr. Hernández on 10-14-2022 Estimated Creatinine Clearance Calc 86.10 ml/min [facility] Estimated GFR (MDRD) Amer 131 mL/min >60 [facility] Comment on above: GFR Calc Estimated GFR (MDRD) Non-Af Amer 108 mL/min >60 [facility] Comment on above: Non- GFR Calc Platelets bldOrdered By: Dr. Hernández on 10-14-2022 Platelets (Bld) [#/Vol] 278 10*3/uL 150-450 [facility] Serum or plasma calcium elis urement (mass/volume)Ordered By: Dr. Hernández on 10-14-2022 Calcium [Mass/Vol] 9.1 mg/dL 8.5-10.1 [facility] Serum or plasma creatinine m easurement (mass/volume)Ordered By: Dr. Hernández on 10-14-2022 Creatinine [Mass/Vol] 0.60 mg/dL 0.55-1.02 [facility] Comment on above: The validity of the calculated GFR & GFRAA in patients over 70 years has not been determined. Clinical correlation is essential. Serum or plasma urea nitroge n measurement (mass/volume)Ordered By: Dr. Hernández on 10-14-2022 Urea nitrogen [Mass/Vol] 5 mg/dL 7-18 [facility] Thin prep Papanicolaou smear with manual screeningOrdered By: Dr. Hernández on 10-14-2022 Thin prep Papanicolaou smear with manual screening 8 5-15 [facility] Basophil percentageOrdered B y: Dr. Wolfe on 10-13-2022 Basophil percentage 0-5 SEEN /hpf 0-5 [facility] Bilirubin Test strip Ql (U)O rdered By: Dr. Wolfe on 10-13-2022 Bilirubin Ql (U) Negative Negative [facility] COVID-19 virus antigen assay Ordered By: Dr. Wolfe on 10-13-2022 SARS-CoV-2 (COVID-19) Ag IA.rapid Ql (Resp) Not detected Not Detect [facility] Comment on above: Normal Reference Ran [...] 10-13-2022 Ketones Ql (U) 15 mg/dl Negative [facility] Mucus LM Ql (Urine sed)Order ed By: Dr. Wolfe on 10-13-2022 Mucus Ql (Urine sed) 0 SEEN /hpf [facility] Nitrite Test strip Ql (U)Ord ered By: Dr. Wolfe on 10-13-2022 Nitrite Ql (U) Negative Negative [facility] Protein Test strip Ql (U)Ord ered By: Dr. Wolfe on 10-13-2022 Protein Ql (U) 15 mg/dl Negative [facility] Squamous epithelial cells de tection in urine sediment by light microscopyOrdered By: Dr. Wolfe on 10-13-2022 Epithelial cells.squamous LM Ql (Urine sed) 0 SEEN /hpf 5-10 [facility] Urine blood detectionOrdered By: Dr. Wolfe on 10-13-2022 RBC Ql (U) Negative Negative [facility] RBC Ql (U) 0 SEEN /hpf 0-5 [facility] Urine clarityOrdered By: Dr. Wolfe on 10-13-2022 Clarity (U) Clear Clear [facility] Urine color determinationOrd ered By: Dr. Wolfe on 10-13-2022 Color (U) Yellow Yellow [facility] Urine glucose detectionOrder ed By: Dr. Wolfe on 10-13-2022 Glucose Ql (U) Normal mg/dl Normal [facility] Urine leukocyte esterase det ection by dipstickOrdered By: Dr. Wolfe on 10-13-2022 Leukocyte esterase Test strip Ql (U) Negative Negative [facility] Urine pHOrdered By: Dr. Narcisa alonso on 10-13-2022 pH (U) 7.0 [pH] 5.0 - 8.0 [facility] Urine sediment bacteria coun t by microscopy (number/high power field)Ordered By: Dr. Wolfe on 10-13-2022 Bacteria LM.HPF (Urine sed) [#/Area] 0 /[HPF] None Seen [facility] Urine specific gravity measu rementOrdered By: Dr. Wolfe on 10-13-2022 Specific gravity (U) [Rel density] 1.010 1.002-1.030 [facility] Urobilinogen Auto test strip Ql (U)Ordered By: Dr. Wolfe on 10-13-2022 Urobilinogen Ql (U) Normal mg/dl Normal [facility] Glucose Glucometer (BldC) [M ass/Vol]Ordered By: Dr. Damian on 10-11-2022 Glucose [Mass/Vol] 141 mg/dL 74-106 [facility] Comment on above: MANAGEMENT OF PATIEN T CARE PER NURSING PROTOCOL Laboratory - Chemistry and C hemistry - challengeOrdered By: Dr. Madrigal on 10-05-2022 Magnesium [Mass/Vol] 1.8 mg/dL 1.6-2.6 [facility] COVID-19 virus antigen assay Ordered By: Dr. Mosley on 09-23-2022 SARS-CoV-2 (COVID-19) Ag IA.rapid Ql (Resp) Not detected Not Detect [facility] Comment on above: Normal Reference Ran [...] 09-23-2022 Influenza Types A,B Direct FA (PIEDAD) [facility] RSV Ag EIAOrdered By: Dr. Jacquie mendosa on 09-23-2022 RSV Ag Immune stain Ql (Tiss) [facility] Absolute lymphocyte countOrd ered By: Dr. Mosley on 09-13-2022 Lymphocytes Auto (Unsp spec) [#/Vol] 2.17 10*3/uL 0.83-4.51 [facility] Basophil percentageOrdered B y: Dr. Mosley on 09-13-2022 Basophils/100 WBC (Bld) 0.8 % 0-1 [facility] Bilirubin [Mass/Vol] 0.60 mg/dL 0.20-1.00 [facility] Comment on above: For patients on eltr ombopag therapy, use of Dimension [place] TBIL is not recommended. Chloride [Moles/Vol] 103 mmol/L 98-107 [facility] Cholesterol [Mass/Vol] 242 mg/dL <200 [facility] Comment on above: <200 mg/dL Desirable 200-240 mg/dL Borderline >240 mg/dL High Risk Eosinophils/100 WBC (Bld) 1.1 % 0-5 [facility] Glucose [Mass/Vol] 106 mg/dL 74-106 [facility] Comment on above: Fasting Glucose resu lt from 100 to 125 mg/dL suggests IMPAIRED HOMEOSTASIS per A.D.A. criteria. Neutrophils (Bld) [#/Vol] 3.7 10*3/uL 2.0-7.7 [facility] Neutrophils/100 WBC (Bld) 55.0 % 47-70 [facility] Potassium [Moles/Vol] 3.9 mmol/L 3.5-5.1 [facility] Protein [Mass/Vol] 8.1 g/dL 6.4-8.2 [facility] Sodium [Moles/Vol] 139 mmol/L 136-145 [facility] Triglyceride [Mass/Vol] 76 mg/dL <199 [facility] Comment on above: The drugs N-Acetylcy steine and Metamizole may falsely depress this assay.Serum Triglycerides Reference Interval Normal <150 mg/dL Borderline high 150 - 199 mg/dL High 200 - 499 mg/dL Very High > or = 500 mg/dL WBC (Bld) [#/Vol] 6.7 10*3/uL 4.4-11.0 [facility] Blood erythrocytes count (nu mber/volume)Ordered By: Dr. Mosley on 09-13-2022 RBC (Bld) [#/Vol] 4.84 10*6/uL 4.2-5.4 [facility] Blood hemoglobin measurement (mass/volume)Ordered By: Dr. Mosley on 09-13-2022 Hemoglobin (Bld) [Mass/Vol] 14.7 g/dL 12.0-15.0 [facility] Blood lymphocytes/100 leukoc ytesOrdered By: Dr. Mosley on 09-13-2022 Lymphocytes/100 WBC (Bld) 32.6 % 19-41 [facility] Blood monocytes/100 leukocyt esOrdered By: Dr. Mosley on 09-13-2022 Monocytes/100 WBC (Bld) 10.2 % 0-10 [facility] Blood platelet mean volumeOr dered By: Dr. Mosley on 09-13-2022 Platelet mean volume (Bld) [Entitic vol] 10.5 fL 6.2-12.0 [facility] Determination of erythrocyte mean corpuscular volume (MCV)Ordered By: Dr. Mosley on 09-13-2022 MCV (RBC) [Entitic vol] 93.8 fL 81-99 [facility] Hematocrit Auto (Bld) [Volum e fraction]Ordered By: Dr. Mosley on 09-13-2022 Hematocrit (Bld) [Volume fraction] 45.4 % 37-47 [facility] - Chemistry and C hemistry - challengeOrdered By: Dr. Mosley on 09-13-2022 ALP [Catalytic activity/Vol] 100 U/L 45-117 [facility] ALT [Catalytic activity/Vol] 28 U/L 13-56 [facility] CO2 [Moles/Vol] 28.0 mmol/L 21.0-32.0 [facility] Globulin (S) [Mass/Vol] 3.8 g/dL 2.2-4.2 [facility] Urea nitrogen/Creatinine [Mass ratio] 17.5 mg/mg 10-20 [facility] - Hematology and Cell countsOrdered By: Dr. Mosley on 09-13-2022 Erythrocyte distribution width (RBC) [Entitic vol] 43.8 fL 35.1-43.9 [facility] Erythrocyte distribution width (RBC) [Ratio] 12.6 % 11.6-14.6 [facility] Immature granulocytes/100 WBC (Bld) 0.300 % 0.0-0.9 [facility] Comment on above: IG% - Immature Granu locytes (promyelocytes, myelocytes and metamyelocytes) > 1% indicates that a LEFT SHIFT is Present. MCH (RBC) [Entitic mass] 30.4 pg 27.0-32.0 [facility] Nucleated RBC/100 WBC (Bld) [Ratio] 0 % 0-5 [facility] MCHC Auto (RBC) [Mass/Vol]Or dered By: Dr. Mosley on 09-13-2022 MCHC (RBC) [Mass/Vol] 32.4 g/dL 32-36 [facility] No Panel InformationOrdered By: Dr. Mosley on 09-13-2022 Estimated GFR (MDRD) Amer 87 mL/min >60 [facility] Comment on above: GFR Calc Estimated GFR (MDRD) Non-Af Amer 72 mL/min >60 [facility] Comment on above: Non- GFR Calc Thyroid Stimulating Hormone (TSH) 1.27 uIU/mL 0.358-3.74 [facility] Vitamin D 25-Hydroxy 36.3 ng/mL [facility] Comment on above: Vitamin D 25(OH) Sta tus Range Deficiency <20 ng/mL (50nmol/L) Insufficiency 20 - 30 ng/mL (50 - 75 nmol/L) Sufficiency 30 - 100 ng/mL (75 - 250 nmol/L) Toxicity >100 ng/mL (>250 nmol/L) Platelets bldOrdered By: Dr. Mosley on 09-13-2022 Platelets (Bld) [#/Vol] 344 10*3/uL 150-450 [facility] Serum or plasma albumin elis urement (mass/volume)Ordered By: Dr. Mosley on 09-13-2022 Albumin [Mass/Vol] 4.3 g/dL 3.2-5.0 [facility] Serum or plasma albumin/glob ulin mass ratioOrdered By: Dr. Mosley on 09-13-2022 Albumin/Globulin [Mass ratio] 1.1 {ratio} 0.9-2.4 [facility] Serum or plasma calcium elis urement (mass/volume)Ordered By: Dr. Mosley on 09-13-2022 Calcium [Mass/Vol] 9.6 mg/dL 8.5-10.1 [facility] Serum or plasma cholesterol in HDL measurement (mass/volume)Ordered By: Dr. Mosley on 09-13-2022 Cholesterol in HDL [Mass/Vol] 86 mg/dL >40 [facility] Comment on above: The drugs N-Acetylcy steine and Metamizole may falsely depress this assay. Reference Range HDL <40 mg/dL Low HDL Cholesterol HDL >or= 60 mg/dL High HDL Cholesterol Serum or plasma cholesterol in VLDL measurement (mass/volume)Ordered By: Dr. Mosley on 09-13-2022 Cholesterol in VLDL [Mass/Vol] 15 mg/dL 5-40 [facility] Serum or plasma creatinine m easurement (mass/volume)Ordered By: Dr. Mosley on 09-13-2022 Creatinine [Mass/Vol] 0.86 mg/dL 0.55-1.02 [facility] Comment on above: The validity of the calculated GFR & GFRAA in patients over 70 years has not been determined. Clinical correlation is essential. Serum or plasma low density lipoprotein (LDL) cholesterol measurement (mass/volume)Ordered By: Dr. Mosley on 09-13-2022 Cholesterol in LDL [Mass/Vol] 141 mg/dL 0-130 [facility] Serum or plasma urea nitroge n measurement (mass/volume)Ordered By: Dr. Mosley on 09-13-2022 Urea nitrogen [Mass/Vol] 15 mg/dL 7-18 [facility] Thin prep Papanicolaou smear with manual screeningOrdered By: Dr. Mosley on 09-13-2022 Thin prep Papanicolaou smear with manual screening 17 U/L 15-37 [facility] Thin prep Papanicolaou smear with manual screening 8 5-15 [facility] CNPNon 08-22-2022 CNPN Telephone (PNMDNA) -------- JUDY REAGAN ([id number]) 1960 F Date Time Provider Department 08/22/22 URIEL BOWER During your visit today, we recorded the following information about you: Marzena Elise RN 08/22/2022 2:35 PM Signed Patient left voicemail 08/22/2022 at 0851 Patient contacted at this time Patient requesting Dr. Bower's office to fax medical records to [facility] Medicare Patient's MRI is currently being denied and patient filed an expedited appeal Patient requesting records to be faxed to [phone] Case# [id number] Records faxed at this time per patient's request Allergies As of Date: 08/22/2022 Noted Allergy Reaction ADHESIVE TAPE (ROSINS) 06/06/2016 2 - Rash BEE STING 09/02/2019 7 - Swelling Date Reviewed: 06/06/2022 Reviewed by: Amber Guerra, SHAWN - Fully Assessed Reason for Visit: Patient Question [8024] Prescriptions as of 08/22/2022 - traMADol (ULTRAM) 50 mg tablet Take 50 mg by mouth twice daily as needed. Currently not taking while on [place] for pain - amLODIPine (NORVASC) 5 mg [...] by MARZENA ELISE RN on 08/22/22 Normal [facility] No Panel InformationOrdered By: Dr. Damian on 08-12-2022 Nasal Screen MRSA/MSSA [facility] HIV 1 and HIV-2 antibody ass ay with HIV-1 p24 antigen detectionOrdered By: Dr. Damian on 08-11-2022 HIV 1+2 Ab+HIV1 p24 Ag IA Ql Non-Reactive Nonreactive [facility] - Chemistry and C hemistry - challengeOrdered By: Dr. Roach on 08-11-2022 Magnesium [Mass/Vol] 2.1 mg/dL 1.6-2.6 [facility] No Panel InformationOrdered By: Dr. Damian on 08-11-2022 Hepatitis A Antibody Total Negative Negative [facility] Comment on above: Performed at: [facility] [place] [id number] Director: Bhaskar Mane PhD, Phone: [phone] Hepatitis C Antibody Non-Reactive Nonreactive [facility] Comment on above: Non Reactive: < 0.8 Equivocal: >/= 0.8 to < 1.0 Reactive: >/= 1.0The CDC recommends that a reactive/equivocal HCV antibody result be followed up by the HCV Nucleic Acid Amplificationtest (603226) Serum hepatitis B virus surf magaly antibody IgG detectionOrdered By: Dr. Damian on 08-11-2022 HBV surface IgG Ql (S) Reactive [facility] Comment on above: Non Reactive: Incons istent with immunity less than <10 mIU/mL Reactive: Consistent with immunity greater than or equal to 10 mIU/mL Absolute lymphocyte countOrd ered By: Dr. Mosley on 08-04-2022 Lymphocytes Auto (Unsp spec) [#/Vol] 2.41 10*3/uL 0.83-4.51 [facility] Basophil percentageOrdered B y: Dr. Mosley on 01-12-2023 Basophils/100 WBC (Bld) 0.8 % 0-1 [facility] Bilirubin [Mass/Vol] 0.60 mg/dL 0.20-1.00 [facility] Comment on above: For patients on eltr ombopag therapy, use of Dimension [place] TBIL is not recommended. Chloride [Moles/Vol] 101 mmol/L 98-107 [facility] Cholesterol [Mass/Vol] 246 mg/dL <200 [facility] Comment on above: <200 mg/dL Desirable 200-240 mg/dL Borderline >240 mg/dL High Risk Eosinophils/100 WBC (Bld) 0.6 % 0-5 [facility] Glucose [Mass/Vol] 80 mg/dL 74-106 [facility] Neutrophils (Bld) [#/Vol] 4.5 10*3/uL 2.0-7.7 [facility] Neutrophils/100 WBC (Bld) 58.2 % 47-70 [facility] Potassium [Moles/Vol] 3.5 mmol/L 3.5-5.1 [facility] Protein [Mass/Vol] 7.8 g/dL 6.4-8.2 [facility] Sodium [Moles/Vol] 136 mmol/L 136-145 [facility] Triglyceride [Mass/Vol] 143 mg/dL <199 [facility] Comment on above: The drugs N-Acetylcy steine and Metamizole may falsely depress this assay.Serum Triglycerides Reference Interval Normal <150 mg/dL Borderline high 150 - 199 mg/dL High 200 - 499 mg/dL Very High > or = 500 mg/dL WBC (Bld) [#/Vol] 7.8 10*3/uL 4.4-11.0 [facility] Blood erythrocytes count (nu mber/volume)Ordered By: Dr. Mosley on 08-04-2022 RBC (Bld) [#/Vol] 4.36 10*6/uL 4.2-5.4 [facility] Blood hemoglobin measurement (mass/volume)Ordered By: Dr. Mosley on 08-04-2022 Hemoglobin (Bld) [Mass/Vol] 13.7 g/dL 12.0-15.0 [facility] Blood lymphocytes/100 leukoc ytesOrdered By: Dr. Mosley on 08-04-2022 Lymphocytes/100 WBC (Bld) 30.9 % 19-41 [facility] Blood monocytes/100 leukocyt esOrdered By: Dr. Mosley on 08-04-2022 Monocytes/100 WBC (Bld) 9.1 % 0-10 [facility] Blood platelet mean volumeOr dered By: Dr. Mosley on 08-04-2022 Platelet mean volume (Bld) [Entitic vol] 10.3 fL 6.2-12.0 [facility] Determination of erythrocyte mean corpuscular volume (MCV)Ordered By: Dr. Mosley on 08-04-2022 MCV (RBC) [Entitic vol] 92.9 fL 81-99 [facility] Hematocrit Auto (Bld) [Volum e fraction]Ordered By: Dr. Mosley on 08-04-2022 Hematocrit (Bld) [Volume fraction] 40.5 % 37-47 [facility] INR in Blood by Coagulation assayOrdered By: Dr. Mosley on 08-04-2022 INR Coag (Bld) [Relative time] 1.0 {INR} [facility] - Chemistry and C hemistry - challengeOrdered By: Dr. Mosley on 08-04-2022 ALP [Catalytic activity/Vol] 98 U/L 45-117 [facility] ALT [Catalytic activity/Vol] 34 U/L 13-56 [facility] CO2 [Moles/Vol] 31.0 mmol/L 21.0-32.0 [facility] Globulin (S) [Mass/Vol] 3.7 g/dL 2.2-4.2 [facility] Urea nitrogen/Creatinine [Mass ratio] 15.2 mg/mg 10-20 [facility] - CoagulationOrde red By: Dr. Mosley on 08-04-2022 PT Coag (PPP) [Time] 13.2 s 11.7-14.9 [facility] - Hematology and Cell countsOrdered By: Dr. Mosley on 08-04-2022 Erythrocyte distribution width (RBC) [Entitic vol] 43.2 fL 35.1-43.9 [facility] Erythrocyte distribution width (RBC) [Ratio] 12.6 % 11.6-14.6 [facility] Immature granulocytes/100 WBC (Bld) 0.400 % 0.0-0.9 [facility] Comment on above: IG% - Immature Granu locytes (promyelocytes, myelocytes and metamyelocytes) > 1% indicates that a LEFT SHIFT is Present. MCH (RBC) [Entitic mass] 31.4 pg 27.0-32.0 [facility] Nucleated RBC/100 WBC (Bld) [Ratio] 0 % 0-5 [facility] MCHC Auto (RBC) [Mass/Vol]Or dered By: Dr. Mosley on 08-04-2022 MCHC (RBC) [Mass/Vol] 33.8 g/dL 32-36 [facility] No Panel InformationOrdered By: Dr. Mosley on 08-04-2022 Estimated GFR (MDRD) Amer 106 mL/min >60 [facility] Comment on above: GFR Calc Estimated GFR (MDRD) Non-Af Amer 87 mL/min >60 [facility] Comment on above: Non- GFR Calc Thyroid Stimulating Hormone (TSH) 0.91 uIU/mL 0.358-3.74 [facility] Platelets bldOrdered By: Dr. Mosley on 08-04-2022 Platelets (Bld) [#/Vol] 337 10*3/uL 150-450 [facility] Serum or plasma albumin elis urement (mass/volume)Ordered By: Dr. Mosley on 08-04-2022 Albumin [Mass/Vol] 4.1 g/dL 3.2-5.0 [facility] Serum or plasma albumin/glob ulin mass ratioOrdered By: Dr. Mosley on 08-04-2022 Albumin/Globulin [Mass ratio] 1.1 {ratio} 0.9-2.4 [facility] Serum or plasma calcium elis urement (mass/volume)Ordered By: Dr. Mosley on 08-04-2022 Calcium [Mass/Vol] 9.3 mg/dL 8.5-10.1 [facility] Serum or plasma cholesterol in HDL measurement (mass/volume)Ordered By: Dr. Mosley on 08-04-2022 Cholesterol in HDL [Mass/Vol] 82 mg/dL >40 [facility] Comment on above: The drugs N-Acetylcy steine and Metamizole may falsely depress this assay. Reference Range HDL <40 mg/dL Low HDL Cholesterol HDL >or= 60 mg/dL High HDL Cholesterol Serum or plasma cholesterol in VLDL measurement (mass/volume)Ordered By: Dr. Mosley on 08-04-2022 Cholesterol in VLDL [Mass/Vol] 29 mg/dL 5-40 [facility] Serum or plasma creatinine m easurement (mass/volume)Ordered By: Dr. Mosley on 08-04-2022 Creatinine [Mass/Vol] 0.72 mg/dL 0.55-1.02 [facility] Comment on above: The validity of the calculated GFR & GFRAA in patients over 70 years has not been determined. Clinical correlation is essential. Serum or plasma low density lipoprotein (LDL) cholesterol measurement (mass/volume)Ordered By: Dr. Mosley on 08-04-2022 Cholesterol in LDL [Mass/Vol] 135 mg/dL 0-130 [facility] Serum or plasma urea nitroge n measurement (mass/volume)Ordered By: Dr. Mosley on 08-04-2022 Urea nitrogen [Mass/Vol] 11 mg/dL 7-18 [facility] Thin prep Papanicolaou smear with manual screeningOrdered By: Dr. Mosley on 08-04-2022 Thin prep Papanicolaou smear with manual screening 22 U/L 15-37 [facility] Thin prep Papanicolaou smear with manual screening 4 5-15 [facility] ANES POSTPROC EVALon 06-06-2 022 ANES POSTPROC EVAL HNO ID: [id number] Author: Kris Najera MD Service: Anesthesiology Author Type: Anesthesiologist Type: Anesthesia Postprocedure Evaluation Filed: 06/06/2022 10:30 AM Note Text: POST ANESTHESIA EVALUATION NOTE : 1960 Procedure Summary Date: 06/06/22 Room / Location: OR OR / OR OR Anesthesia Start: 737 Anesthesia [...] June 06, 2022 TIME: 10:29 AM CSN: [id number] [facility] ANES PRE-OPon 06-06-2022 ANES PRE-OP HNO ID: [id number] Author: Kris Najera MD Service: Anesthesiology Author Type: Anesthesiologist Type: Anesthesia Preprocedure Evaluation Filed: 06/06/2022 6:59 AM Note Text: ANESTHESIOLOGY DAY OF SURGERY NOTE : 1960 Procedure Information Date/Time: 06/06/22729 Procedure: INJECT ANKLE (Right: Foot) Location: [place] [address] / OR OR Surgeons: Yumiko Welsh Estimated body mass index is 28.67 kg/m? as calculated from the following: Height as of 05/30/22: 162.6 cm (5' 4"). Weight as of 05/30/22: 75.8 kg (167 [...] as needed. Currently not taking while on [place] for pain - amLODIPine (NORVASC) 5 mg [...] June 06, 2022 TIME: 6:58 AM CSN: [id number] [facility] HISTORY PHYSICALon HISTORY PHYSICAL HNO ID: [id number] Author: Yumiko Welsh Service: ? Author Type: [...] DATE: June 06, 2022 TIME: 7:02 AM [facility] NURSING PROGon 06-06-2022 NURSING PROG HNO ID: [id number] Author: Hattie Toledo RN Service: Nursing Author Type: Registered Nurse Type: Nursing Progress Note Filed: 06/06/2022 8:51 AM Note Text: Other: spoke with via telephone, pt to continue all her meds at their normal times and doses on D/C [facility] OPERATIVE NOon 06-06-2022 OPERATIVE NO HNO ID: [id number] Author: Yumiko Welsh Service: ? Author Type: Physician Type: Operative Report Filed: 06/06/2022 10:51 AM Note Text: OPERATIVE/PROCEDURE REPORT LOG ID: [id number] SURGERY/PROCEDURE DATE: 06/06/2022 INCISION/PROCEDURE START TIME: 7:58 AM INCISION CLOSE/PROCEDURE END TIME: 8:07 AM SURGEON(S)/PROCEDURALIST (S) AND SAMPLE SUPERVISOR(S): Surgeon(s) and Role: * Yumiko Welsh - [...] SIGNATURE: Yumiko Welsh DPM PATIENT NAME: Judy KITCHEN: June 06, 2022 TIME: 10:42 AM [facility] XR FLUOROSCOPYon 06-06-2022 XR FLUOROSCOPY [...] Area Product (DAP): Fluoro time: 0:34 min:sec Orthophotography Technician: REBECCA Transcribe Date/Time: Jun 06 2022 9:06A Dictated by : Vandana ESTRADA MD This examination was interpreted and the report reviewed and electronically signed by: Vandana ESTRADA MD on Jun 06 2022 9:09AM EST [id number] [facility] HISTORY PHYSICALon HISTORY PHYSICAL HNO ID: [id number] Author: Susana Leyva APRN.SECURITY AGENT Service: ? Author Type: Nurse Practitioner Type: [...] fevers. Neurological: No history of TIA's, stroke, SENIOR CLINICAL RESEARCH ASSOCIATE tumor, impaired sensorium, hemiplegia, paraplegia or quadraplegia. [...] > 1 time per night or hematuria. BIOINFORMATICS ASSOCIATE: Negative for abnormal vaginal bleeding, abnormal [...] arthritis (PCP mananging currently due to recent fci). Skin: +psoriasis, on rx PAST MEDICAL HISTORY [...] Breast C (more content not included)... Normal [facility] [place] 05-19-2022 FLON Telephone (PODIWS) -------- JUDY REAGAN ([id number]) 1960 F Date Time Provider Department 05/19/22 YUMIKO WELSH During your visit today, we recorded the following information about you: Rosa Greenberg RN 05/19/2022 11:16 AM Signed Left patient Vm to contact office and give surgical date. Patient scheduled for XR guided injection of R 1st MTPJ on 06/06/22 at [facility]. Patient will need a month follow up post injection scheduled when she returns call. Mavis Russell LPN 05/19/2022 11:22 AM Signed Patient called. Verified name and date of . Transferred to nurseKitty, in podiatry. Mavis Greenberg RN 05/19/2022 11:31 AM Signed Patient notified of surgical date. Follow up scheduled. Surgical confirmation letter sent to patient via [employer] message. Allergies As of Date: 05/19/2022 Noted Allergy Reaction ADHESIVE TAPE (ROSINS) 06/06/2016 2 - Rash BEE STING 09/02/2019 7 - Swelling Date Reviewed: 05/18/2022 Reviewed by: Rosa Greenberg RN - Fully Assessed Reason for Visit: Schedule Surgery [1330] Primary Visit Diagnosis:Acquired hallux limitus of right foot [M20.5X1] Order(s):SURGICAL REQUEST - ELECTIVE (02/2020) [3516657] Order #: [id number]: 1 Prescriptions as of 05/19/2022 - methylPREDNISolone (MEDROL, AMIRA,) 4 mg Dose-Pack Take 1 tablet by mouth as directed. As directed on package - traMADol (ULTRAM) 50 mg tablet Take 50 mg by mouth twice daily as needed. Currently not taking while on [place] for pain - amLODIPine (NORVASC) 5 mg [...] Status:Closed by ROSA GREENBERG RN on 05/19/22 [facility] CNOVsara 05-18-2022 CNOV Office Visit (PODIWS ) -------- JUDY REAGAN ([id number]) 1960 F Date Time Provider Department 10/26/22 4:00 PM YUMIKO WELSH During your visit [...] as needed. Currently not taking while on [place] for pain amLODIPine (NORVASC) 5 mg tablet [...] black stoo (more content not included)... Normal [facility] XR FOOT 3V AP/LAT/OBL RTon 1 [...] ENTHESOPHYTES. MILD DEGENERATIVE CHANGES. NO ACUTE FRACTURE Orthophotography Technician: PSCB Transcribe Date/Time: May 20 2022 3:03P Dictated by : IVORY SARMIENTO MD This examination was interpreted and the report reviewed and electronically signed by: IVORY SARMIENTO MD on May 20 2022 3:06PM EST [id number] Normal [facility] XR FOOT GENERAL 3V AP/LAT/OB L RIGHTon 05-18-2022 [facility] 05-04-2022 CNPN Telephone (PODIWS) -------- JUDY REAGAN ([id number]) 1960 F Date Time Provider Department 05/04/22 YUMIKO WELSH During your visit today, we recorded the following information about you: Racquel Barkley LPN 05/04/2022 9:37 AM Signed Patient called asking if could have another Right big toe injection, d/t swelling and pain. Please call patient back. Thank you. Judy#[phone] Zonia Bernardo LPN 05/04/2022 2:11 PM Signed Called patient and scheduled her an appointment on 05/18/2022 at 4 pm to discuss receiving another injection. Zonia Bernardo LPN Allergies As of Date: 05/04/2022 Noted Allergy Reaction ADHESIVE TAPE (ROSINS) 06/06/2016 2 - Rash BEE STING 09/02/2019 7 - Swelling Date Reviewed: 05/02/2022 Reviewed by: Jesus Alberto Harris APRN.SECURITY AGENT - Fully Assessed Reason for Visit: Patient Question [4720] Cmt: Right Big toe Prescriptions as of 05/19/2022 - methylPREDNISolone (MEDROL, AMIRA,) 4 mg Dose-Pack Take 1 tablet by mouth as directed. As directed on package - traMADol (ULTRAM) 50 mg tablet Take 50 mg by mouth twice daily as needed. Currently not taking while on [place] for pain - amLODIPine (NORVASC) 5 mg [...] Status:Closed by ROSA GREENBERG RN on 05/19/22 [facility] Lucy 05-02-2022 CNOV Office Visit (TAMAR ) -------- BRIENJUDY Chirinos ([id number]) 1960 F Date Time Provider Department 05/02/22 9:30 AM JESUS ALBERTO HARRIS During your visit today, we recorded the following information about you: Jesus Alberto Harris APRN.CNP 05/02/2022 1:20 PM Signed Orthopaedic Office Note: May 02, 2022 10:08 AM Judy Taverassofya 62 year old History: Judy is a [...] which included preparing to see the patient, [id number] patient care, completing clinical documentation, obtaining and/or reviewing separately obtained history, performing a medically appropriate examination, counseling and educating the patient/family/caregiver , ordering medications, tests, or procedures, communicating with other HCPs (not separately reported), independently interpreting results (not separately reported), communicating results to the patient/family/caregiver , and care coordination (not separately reported). Jesus Alberto Harris APRN.[facility] Orthopaedic Surgery Referring Provider: CHRISTIAN DUNNE [[id number]] Allergies As of Date: 05/02/2022 Noted Allergy Reaction ADHESIVE TAPE (ROSINS) 06/06/2016 2 - Rash BEE STING 09/02/2019 7 - Swelling Date Reviewed: 05/02/2022 Reviewed by: Jesus Alberto Harris APRN.[facility] - Fully Assessed Reason for Visit: New [227675] Cmt: L Partial Knee 2013 Knee Pain [132] Cmt: L Partial Knee 2013 New [816948] Cmt: R TKA 2010 Knee Pain [132] Cmt: R TKA 2010 Primary Visit Diagnosis: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, initial encounter ([facility]) [T84.84XA, Z96.651] Other Visit Diagnosis:Pain due to total left knee replacement, initial encounter ([facility]) [T84.84XA, Z96.652] Order(s):CONSULT TO PHYSICAL THERAPY [9032] Order #: [id number]: 1 FUTURE HINGED KNEE BRACE [[id number]] Order #: [id number] methylPREDNISolone (MEDROL, AMIRA,) 4 mg Dose-PackTake 1 tablet by mouth as directed. As directed on packageDisp: 21 tabletRfl: 0 Prescriptions as of 05/02/2022 - methylPREDNISolone (MEDROL, AMIRA,) 4 mg Dose-Pack Take 1 tablet by mouth as directed. As directed on package - traMADol (ULTRAM) 50 mg tablet Take 50 mg by mouth twice daily as needed. Currently not taking while on [place] for pain - amLODIPine (NORVASC) 5 mg tablet Take 5 mg by mouth once daily. - methotrexate 2.5 mg tablet (more content not included)... Normal [facility] XR KNEE 3V AP/LAT/MELIDA BILon 05-02-2022 [...] as discussed under Results portion of report. Orthophotography Technician: REBECCA Transcribe Date/Time: May 02 2022 9:42A Dictated by : HARIKA LYONS DO This examination was interpreted and the report reviewed and electronically signed by: HARIKA LYONS DO on May 02 2022 9:46AM EST [id number] [facility] XR KNEE POST OP 3V AP/LAT/ME RCHANT BILATERALon 05-02-2022 [facility] [place] 04-27-2022 YAMILKA Telephone (TAMAR) -------- JUDY REAGAN ([id number]) 1960 F Date Time Provider Department 04/27/22 JESUS ALBERTO HARRIS During your visit today, we recorded the following information about you: Kitty Bansal 04/27/2022 10:16 AM Signed Provider out on 05/05/22, left VM AND sent [employer] message. Ok to r/s to 05/03/22. Please assist in rescheduling when patient calls back. Thanks Kitty Rodrigezner 04/28/2022 9:37 AM Signed Patient returned call, [...] as needed. Currently not taking while on [place] for pain - amLODIPine (NORVASC) 5 mg [...] Encounter Status:Closed by KITTY BANSAL on 04/28/22 [facility] [place] 04-25-2022 FLON Telephone (TRAVIS) -------- JUDY REAGAN ([id number]) 1960 F Date Time Provider Department 04/25/22 [...] has had a partial replacement done at [facility] several years ago. She is concerned [...] those procedures. I would recommend seeing either Eliasceleste Harris or Philip Castillo in our [place] office to begin evaluation or a work up for a "painful" prior replacement. She should be able to get xrays of both knees to review them together. MD Padmini John Ma 04/25/2022 4:07 PM Signed I called and spoke with patient. Message from Dr. Dunne given. Patient verbalized understanding and was transferred to scheduling to reschedule her appointment to appropriate provider. Yessenia Isabell 04/25/2022 4:37 PM Signed Patient is scheduled Allergies As of Date: 04/25/2022 Noted Allergy Reaction ADHESIVE TAPE (ROSINS) 06/06/2016 2 - Rash BEE STING 09/02/2019 7 - Swelling Date Reviewed: 08/31/2021 Reviewed by: Yue Cooney RN - Fully Assessed Reason for Visit: Patient Question [4057] Prescriptions as of 04/25/2022 - traMADol (ULTRAM) 50 mg tablet Take 50 mg by mouth twice daily as needed. Currently not taking while on [place] for pain - amLODIPine (NORVASC) 5 mg [...] by PADMINI KRUEGER MA on 04/25/22 Normal [facility] Basophil percentageon 2021 Chloride [Moles/Vol] 97 mmol/L 98-[address] [facility] [address] [facility] Work Phone: Glucose [Mass/Vol] 104 mg/dL 74-106 [facility] Work Phone: Comment on above: Fasting Glucose resu lt from 100 to 125 mg/dL suggests IMPAIRED HOMEOSTASIS per A.D.A. criteria. Potassium [Moles/Vol] 4.3 mmol/L 3.5-5.1 [facility] Work Phone: Sodium [Moles/Vol] 135 mmol/L 136-145 [facility] Work Phone: Laboratory - Chemistry and C hemistry - challengeon 12-22-2021 CO2 [Moles/Vol] 32.0 mmol/L 21.0-32.0 [facility] Work Phone: Urea nitrogen/Creatinine [Mass ratio] 20.5 mg/mg 10-20 [facility] Work Phone: No Panel Informationon 12-22 Estimated Creatinine Clearance Calc 67.06 ml/min [facility] Work Phone: Estimated GFR (MDRD) Amer 97 mL/min >60 [facility] Work Phone: Comment on above: GFR Calc Estimated GFR (MDRD) Non-Af Amer 80 mL/min >60 [facility] Work Phone: Comment on above: Non- GFR Calc Serum or plasma calcium elis urement (mass/volume)on 12-22-2021 Calcium [Mass/Vol] 9.7 mg/dL 8.5-10.1 [facility] Work Phone: Serum or plasma creatinine m easurement (mass/volume)on 12-22-2021 Creatinine [Mass/Vol] 0.78 mg/dL 0.55-1.02 [facility] Work Phone: Comment on above: The validity of the calculated GFR & GFRAA in patients over 70 years has not been determined. Clinical correlation is essential. Serum or plasma urea nitroge n measurement (mass/volume)on 12-22-2021 Urea nitrogen [Mass/Vol] 16 mg/dL 7-18 [facility] Work Phone: Thin prep Papanicolaou smear with manual screeningon 12-22-2021 Thin prep Papanicolaou smear with manual screening 6 5-15 [facility] Work Phone: Absolute lymphocyte counton 10-18-2021 Lymphocytes Auto (Unsp spec) [#/Vol] 1.62 10*3/uL 0.83-4.51 [facility] Work Phone: Basophil percentageon 2021 Basophils/100 WBC (Bld) 0.8 % 0-1 [facility] Work Phone: Bilirubin [Mass/Vol] 0.40 mg/dL 0.20-1.00 [facility] Work Phone: [phone] Comment on above: For patients on eltr ombopag therapy, use of Dimension [place] TBIL is not recommended. Chloride [Moles/Vol] 102 mmol/L 98-107 [facility] Work Phone: Eosinophils/100 WBC (Bld) 1.5 % 0-5 [facility] Work Phone: Glucose [Mass/Vol] 112 mg/dL 74-106 [facility] Work Phone: [phone] Comment on above: Fasting Glucose resu lt from 100 to 125 mg/dL suggests IMPAIRED HOMEOSTASIS per A.D.A. criteria. Neutrophils (Bld) [#/Vol] 3.9 10*3/uL 2.0-7.7 [facility] Work Phone: Neutrophils/100 WBC (Bld) 63.2 % 47-70 [facility] Work Phone: Potassium [Moles/Vol] 3.8 mmol/L 3.5-5.1 [facility] Work Phone: Protein [Mass/Vol] 8.3 g/dL 6.4-8.2 [facility] Work Phone: Sodium [Moles/Vol] 135 mmol/L 136-145 [facility] Work Phone: WBC (Bld) [#/Vol] 6.1 10*3/uL 4.4-11.0 [facility] Work Phone: Blood erythrocytes count (nu mber/volume)on 10-18-2021 RBC (Bld) [#/Vol] 4.58 10*6/uL 4.2-5.4 [facility] Work Phone: Blood hemoglobin measurement (mass/volume)on 10-18-2021 Hemoglobin (Bld) [Mass/Vol] 14.0 g/dL 12.0-15.0 [facility] Work Phone: Blood lymphocytes/100 leukoc yteson 10-18-2021 Lymphocytes/100 WBC (Bld) 26.5 % 19-41 [facility] Work Phone: Blood monocytes/100 leukocyt eson 10-18-2021 Monocytes/100 WBC (Bld) 7.5 % 0-10 [facility] Work Phone: [phone] Blood platelet mean volumeon 10-18-2021 Platelet mean volume (Bld) [Entitic vol] 10.6 fL 6.2-12.0 [facility] Work Phone: Determination of erythrocyte mean corpuscular volume (MCV)on 10-18-2021 MCV (RBC) [Entitic vol] 93.9 fL 81-99 [facility] Work Phone: Hematocrit Auto (Bld) [Volum e fraction]on 10-18-2021 Hematocrit (Bld) [Volume fraction] 43.0 % 37-47 [facility] Work Phone: Laboratory - Chemistry and C hemistry - challengeon 10-18-2021 ALP [Catalytic activity/Vol] 106 U/L 45-117 [facility] Work Phone: ALT [Catalytic activity/Vol] 44 U/L 13-56 [facility] Work Phone: [phone] CO2 [Moles/Vol] 26.0 mmol/L 21.0-32.0 [facility] Work Phone: [phone] Globulin (S) [Mass/Vol] 4.5 g/dL 2.2-4.2 [facility] Work Phone: [phone] Urea nitrogen/Creatinine [Mass ratio] 19.6 mg/mg 10-20 [facility] Work Phone: Laboratory - Hematology and Cell countson 10-18-2021 Erythrocyte distribution width (RBC) [Entitic vol] 45.6 fL 35.1-43.9 [facility] Work Phone: Erythrocyte distribution width (RBC) [Ratio] 13.3 % 11.6-14.6 [facility] Work Phone: Immature granulocytes/100 WBC (Bld) 0.500 % 0.0-0.9 [facility] Work Phone: Comment on above: IG% - Immature Granu locytes (promyelocytes, myelocytes and metamyelocytes) > 1% indicates that a LEFT SHIFT is Present. MCH (RBC) [Entitic mass] 30.6 pg 27.0-32.0 [facility] Work Phone: Nucleated RBC/100 WBC (Bld) [Ratio] 0 % 0-5 [facility] Work Phone: MCHC Auto (RBC) [Mass/Vol]on 10-18-2021 MCHC (RBC) [Mass/Vol] 32.6 g/dL 32-36 [facility] Work Phone: No Panel Informationon 10-18 Estimated GFR (MDRD) Amer 99 mL/min >60 [facility] Work Phone: Comment on above: GFR Calc Estimated GFR (MDRD) Non-Af Amer 82 mL/min >60 [facility] Work Phone: Comment on above: Non- GFR Calc Platelets bldon 10-18-2021 Platelets (Bld) [#/Vol] 286 10*3/uL 150-450 [facility] Work Phone: Serum or plasma albumin elis urement (mass/volume)on 10-18-2021 Albumin [Mass/Vol] 3.8 g/dL 3.2-5.0 [facility] Work Phone: Serum or plasma albumin/glob ulin mass ratioon 10-18-2021 Albumin/Globulin [Mass ratio] 0.8 {ratio} 0.9-2.4 [facility] Work Phone: Serum or plasma calcium elis urement (mass/volume)on 10-18-2021 Calcium [Mass/Vol] 9.6 mg/dL 8.5-10.1 [facility] Work Phone: Serum or plasma creatinine m easurement (mass/volume)on 10-18-2021 Creatinine [Mass/Vol] 0.76 mg/dL 0.55-1.02 [facility] Work Phone: Comment on above: The validity of the calculated GFR & GFRAA in patients over 70 years has not been determined. Clinical correlation is essential. Serum or plasma urea nitroge n measurement (mass/volume)on 10-18-2021 Urea nitrogen [Mass/Vol] 15 mg/dL 7-18 [facility] Work Phone: Thin prep Papanicolaou smear with manual screeningon 10-18-2021 Thin prep Papanicolaou smear with manual screening 35 U/L 15-37 [facility] Work Phone: Thin prep Papanicolaou smear with manual screening 7 5-15 [facility] Work Phone: CNCOon 10-05-2021 [address] [facility] CNPNon 10-05-2021 FLON Telephone (JCHEUHWN ) -------- JUDY REAGAN ([id number]) 1960 F Date Time Provider Department 10/05/21 SAURAV MORTENSEN During your visit today, we recorded the following information about you: Vane Davidson 10/05/2021 2:39 PM Signed No Show Documentation Judy Reagan no showed for an appointment on 10-01-21 with Saurav Mortensen MD at 11:20. She was scheduled for NEW PATIENT. I called and spoke with the patient regarding her missed appointment. CARTER Kim stated the reason that she missed her appointment was because NA. Resources discussed/offered to patient: NONE No show determined to be fault of patient: N/A This is the patients first no show in the last 12 months. Patient was rescheduled for NA. Letter mailed : Yes Is this the Third or Fourth "No Show"? No Vane Davidson October 05, 2021 2:38 PM Allergies As of Date: 10/05/2021 Noted Allergy Reaction ADHESIVE TAPE (ROSINS) 06/06/2016 2 - Rash BEE STING 09/02/2019 7 - Swelling Date Reviewed: 08/31/2021 Reviewed by: Yue Cooney RN - Fully Assessed Reason for Visit: No Show [0698] Prescriptions as of 10/05/2021 - traMADol (ULTRAM) 50 mg tablet Take 50 mg by mouth twice daily as needed. Currently not taking while on [place] for pain - amLODIPine (NORVASC) 5 mg [...] Encounter Status:Closed by VANE DAVIDSON on 10/05/21 [facility] CNPCristine 10-01-2021 CNPN Telephone (Networked Insights[employer]) -------- JUDY REAGAN ([id number]) 1960 F Date Time Provider Department 10/01/21 SAURAV MORTENSEN During your visit today, we recorded the following information about you: Saurav Mortensen MD 10/01/2021 7:54 AM Signed First visit 10/01/[address] Ho Rheum 2016 Dr. 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 Currently not taking while on [place] for pain - amLODIPine (NORVASC) 5 mg [...] Encounter Status:Closed by SAURAV MORTENSEN on 10/04/21 [facility] Absolute lymphocyte counton 09-10-2021 Lymphocytes Auto (Unsp spec) [#/Vol] 1.60 10*3/uL 0.83-4.51 [facility] Work Phone: [phone] Basophil percentageon 2021 Basophils/100 WBC (Bld) 0.7 % 0-1 [facility] Work Phone: [phone] Bilirubin [Mass/Vol] 0.60 mg/dL 0.20-1.00 [facility] Work Phone: [phone] Comment on above: For patients on eltr ombopag therapy, use of Dimension [place] TBIL is not recommended. Chloride [Moles/Vol] 102 mmol/L 98-107 [facility] Work Phone: Eosinophils/100 WBC (Bld) 1.0 % 0-5 [facility] Work Phone: Glucose [Mass/Vol] 97 mg/dL 74-106 [facility] Work Phone: Neutrophils (Bld) [#/Vol] 4.9 10*3/uL 2.0-7.7 [facility] Work Phone: Neutrophils/100 WBC (Bld) 70.0 % 47-70 [facility] Work Phone: [phone] Potassium [Moles/Vol] 3.6 mmol/L 3.5-5.1 [facility] Work Phone: [phone] Protein [Mass/Vol] 7.9 g/dL 6.4-8.2 [facility] Work Phone: Sodium [Moles/Vol] 137 mmol/L 136-145 [facility] Work Phone: [phone] WBC (Bld) [#/Vol] 6.9 10*3/uL 4.4-11.0 [facility] Work Phone: [phone] Blood erythrocytes count (nu mber/volume)on 09-10-2021 RBC (Bld) [#/Vol] 4.39 10*6/uL 4.2-5.4 [facility]: [phone] Blood hemoglobin measurement (mass/volume)on 09-10-2021 Hemoglobin (Bld) [Mass/Vol] 13.7 g/dL 12.0-15.0 [facility] Work Phone: Blood lymphocytes/100 leukoc yteson 09-10-2021 Lymphocytes/100 WBC (Bld) 23.1 % 19-41 [facility] Work Phone: Blood monocytes/100 leukocyt eson 09-10-2021 Monocytes/100 WBC (Bld) 4.9 % 0-10 [facility] Work Phone: Blood platelet mean volumeon 09-10-2021 Platelet mean volume (Bld) [Entitic vol] 9.8 fL 6.2-12.0 [facility] Work Phone: [phone] Determination of erythrocyte mean corpuscular volume (MCV)on 09-10-2021 MCV (RBC) [Entitic vol] 93.6 fL 81-99 [facility] Work Phone: Hematocrit Auto (Bld) [Volum e fraction]on 09-10-2021 Hematocrit (Bld) [Volume fraction] 41.1 % 37-47 [facility] Work Phone: [phone] Laboratory - Chemistry and C hemistry - challengeon 09-10-2021 ALP [Catalytic activity/Vol] 103 U/L 45-117 [facility] Work Phone: [phone] ALT [Catalytic activity/Vol] 48 U/L 13-56 [facility] Work Phone: [phone] CO2 [Moles/Vol] 28.0 mmol/L 21.0-32.0 [facility] Work Phone: Globulin (S) [Mass/Vol] 4.0 g/dL 2.2-4.2 [facility] Work Phone: [phone] Urea nitrogen/Creatinine [Mass ratio] 18.9 mg/mg 10-20 [facility] Work Phone: [phone] Laboratory - Hematology and Cell countson 09-10-2021 Erythrocyte distribution width (RBC) [Entitic vol] 44.5 fL 35.1-43.9 [facility] Work Phone: Erythrocyte distribution width (RBC) [Ratio] 12.9 % 11.6-14.6 [facility] Work Phone: [phone] Immature granulocytes/100 WBC (Bld) 0.300 % 0.0-0.9 [facility] Work Phone: Comment on above: IG% - Immature Granu locytes (promyelocytes, myelocytes and metamyelocytes) > 1% indicates that a LEFT SHIFT is Present. MCH (RBC) [Entitic mass] 31.2 pg 27.0-32.0 [facility] Work Phone: Nucleated RBC/100 WBC (Bld) [Ratio] 0 % 0-5 [facility] Work Phone: MCHC Auto (RBC) [Mass/Vol]on 09-10-2021 MCHC (RBC) [Mass/Vol] 33.3 g/dL 32-36 [facility] Work Phone: No Panel Informationon 09-10 Estimated GFR (MDRD) Amer 103 mL/min >60 [facility] Work Phone: Comment on above: GFR Calc Estimated GFR (MDRD) Non-Af Amer 85 mL/min >60 [facility] Work Phone: Comment on above: Non- GFR Calc Hepatitis C Antibody Non-Reactive Nonreactive [facility] Work Phone: Comment on above: Non Reactive: < 0.8 Equivocal: >/= 0.8 to < 1.0 Reactive: >/= 1.0The [facility] recommends that a reactive/equivocal HCV antibody result be followed up by the HCV Nucleic Acid Amplificationtest (624289) Thyroid Stimulating Hormone (TSH) 0.83 uIU/mL 0.358-3.74 [facility] Work Phone: Vitamin D 25-Hydroxy 59.8 ng/mL [facility] Work Phone: Comment on above: Vitamin D 25(OH) Sta tus Range Deficiency <20 ng/mL (50nmol/L) Insufficiency 20 - 30 ng/mL (50 - 75 nmol/L) Sufficiency 30 - 100 ng/mL (75 - 250 nmol/L) Toxicity >100 ng/mL (>250 nmol/L) Platelets bldon 09-10-2021 Platelets (Bld) [#/Vol] 370 10*3/uL 150-450 [facility] Work Phone: Serum or plasma albumin elis urement (mass/volume)on 09-10-2021 Albumin [Mass/Vol] 3.9 g/dL 3.2-5.0 [facility] Work Phone: Serum or plasma albumin/glob ulin mass ratioon 09-10-2021 Albumin/Globulin [Mass ratio] 1.0 {ratio} 0.9-2.4 [facility] Work Phone: Serum or plasma calcium elis urement (mass/volume)on 09-10-2021 Calcium [Mass/Vol] 9.1 mg/dL 8.5-10.1 [facility] Work Phone: Serum or plasma creatinine m easurement (mass/volume)on 09-10-2021 Creatinine [Mass/Vol] 0.74 mg/dL 0.55-1.02 [facility] Work Phone: Comment on above: The validity of the calculated GFR & GFRAA in patients over 70 years has not been determined. Clinical correlation is essential. Serum or plasma urea nitroge n measurement (mass/volume)on 09-10-2021 Urea nitrogen [Mass/Vol] 14 mg/dL 02-07 [facility] Work Phone: Thin prep Papanicolaou smear with manual screeningon 09-10-2021 Thin prep Papanicolaou smear with manual screening 35 U/L 15-37 [facility] Work Phone: Thin prep Papanicolaou smear with manual screening 7 5-15 [facility] Work Phone: CNOVon 08-31-2021 CNOV Office Visit (PODIWS ) -------- JUDY REAGAN ([id number]) 1960 F Date Time Provider Department 08/31/21 [...] that when she walks, she has a "god awful" pain. She feels the joint is stuck. [...] as needed. Currently not taking while on [place] for pain - amLODIPine (NORVASC) 5 mg [...] knee surgery by Dr.Logee - right knee - PAST SURGICAL HISTORY [...] to be (more content not included)... Normal [facility] HIV 1/2on 07-11-2019 HIV 1/O/2 QUAL NONREACTIVE Normal NONREACTIVE [facility] Comment on above: Result Comment: NONR EACTIVE: LESS THAN 1.0 INDEX VALUE THIS ASSAY DETECTS HIV p24 ANTIGEN AND ANTIBODIES TO HIV-1 AND HIV-2 BY THE [facility] CHIV ASSAY. Performed By: #### L 500.01036, L500.24943, L500.92691, L550.73832, L700.66524 #### [facility] [address] [place] [address] VITAMIN D2+D3on 07-08-2019 25 OH, VIT D 26 ng/mL Low () [facility] Comment on above: Result Comment: Refe danni Range: All Ages: Target levels 30 - 100 Performed By: #### L 500.09274, L500.43317, L500.02457, L550.58503, L700.13708 #### [facility] [address] [place] [address] 25 OH, VIT D-2 11 ng/mL Normal () [facility] Comment on above: Performed By: #### L 500.59686, L500.85463, L500.83657, L550.37918, L700.11002 #### [facility] [address] [place] [address] 25 OH, VIT D-3 15 ng/mL Normal () [facility] Comment on above: Result Comment: Perf ormed At: [facility] [address] [place] [id number] Francois Alvarado MD [id number] Performed By: #### L 500.87945, L500.75220, L500.39891, L550.80389, L700.00041 #### [facility] [address] [place] [address] CCP-ABSon 07-06-2019 CCP-ABS 8 units Normal 0-19 [facility] Comment on above: Result Comment: Nega tive <20 Weak positive 20 - 39 Moderate positive 40 - 59 Strong positive >59 Performed At: [facility] [id number] Morris Mendoza MD [id number] Performed By: #### L 500.30218, L500.08836, L500.43685, L550.50042, L700.89052 #### [facility] [address] [place] [address] CBC W/DIFFon 07-04-2019 BASO ABS 0.10 K/CU MM Normal 0-0.2 [facility] Comment on above: Performed By: #### L 200.27657, L200.78744 #### [facility] [address] [place] [address] Basophils/100 WBC (Bld) 0.9 % Normal 0-[address] [facility] Comment on above: Performed By: #### L 200.43769, L200.40395 #### [facility] [address] [place] [address] EOS ABS 0.10 K/CU MM Normal 0-0.5 [facility] Comment on above: Performed By: #### L 200.97127, L200.58016 #### [facility] [address] [place] [address] Eosinophils/100 WBC (Bld) 0.9 % Normal 0-5 [facility] Comment on above: Performed By: #### L 200.72340, L200.30317 #### [facility] [address] [place] [address] Erythrocyte distribution width (RBC) [Ratio] 12.8 % Normal 11-14.5 [facility] Comment on above: Performed By: #### L 200.09911, L200.25416 #### [facility] [address] [place] [address] Hematocrit (Bld) [Volume fraction] 41.9 % Normal 35.0-47.0 [facility] Comment on above: Performed By: #### L 200.69882, L200.53027 #### [facility] [address] [place], [place] [id number] Hemoglobin (Bld) [Mass/Vol] 14.3 g/dL Normal 11.5-15.5 [facility] Comment on above: Performed By: #### L 200.56527, L200.34443 #### [facility] [address] [place] [address] IMMATR GRAN ABS 0.00 K/CU MM Normal Less than 2 [facility] Comment on above: Performed By: #### L 200.69503, L200.31890 #### [facility] [address] [place] [address] IMMATURE GRAN % 0.3 % Normal Less than 2 [facility] Comment on above: Performed By: #### L 200.73067, L2.12595 #### [facility] [address] [place] [address] Lymphocytes (Bld) [#/Vol] 1.70 K/CU MM Normal 0.9-4.4 [facility] Comment on above: Performed By: #### L 200.63656, L2.64859 #### [facility] [address] [place] [address] Lymphocytes/100 WBC (Bld) 25.6 % Normal 20-40 [facility] Comment on above: Performed By: #### L 200.72535, L200.40523 #### [facility] [address] [place] [address] MCHC (RBC) [Mass/Vol] 34.1 g/dL Normal 32.0-36.0 [facility] Comment on above: Performed By: #### L 200.08879, L200.65001 #### [facility] [address] [place] [address] MCV (RBC) [Entitic vol] 94.2 fL Normal 80.0-99.[address] [facility] Comment on above: Performed By: #### L 200.97732, L200.23091 #### [facility] [address] [place] [address] MONO ABS 0.60 K/CU MM Normal 0.1-1.1 [facility] Comment on above: Performed By: #### L 200.46280, L200.23006 #### [facility] [address] [place] [address] Monocytes/100 WBC (Bld) 9.2 % Normal 2-[address] [facility] Comment on above: Performed By: #### L 200.08200, L200.49948 #### [facility] [address] [place] [address] NEUTROPHIL ABS 4.30 K/CU MM Normal 2.0-8.3 [facility] Comment on above: Performed By: #### L 200.31790, L200.04170 #### [facility] [address] [place] [address] Neutrophils/100 WBC (Bld) 63.1 % Normal 45-75 [facility] Comment on above: Performed By: #### L 200.56233, L200.41441 #### [facility] [address] [place] [address] Nucleated RBC/100 WBC (Bld) [Ratio] 0.0 % Normal Less than 1 [facility] Comment on above: Performed By: #### L 200.99473, L200.57345 #### [facility] [address] [place] [address] Platelet mean volume (Bld) [Entitic vol] 9.8 fL Normal 9.4-12.4 [facility] Comment on above: Performed By: #### L 200.26919, L200.15106 #### [facility] [address] [place] [address] Platelets (Bld) [#/Vol] 285 K/CU MM Normal 150-450 [facility] Comment on above: Performed By: #### L 200.62597, L200.36604 #### [facility] [address] [place] [address] RBC (Bld) [#/Vol] 4.45 M/CU MM Normal 3.90-5.30 [facility] Comment on above: Performed By: #### L 200.05460, L200.86462 #### [facility] [address] [place] [address] WBC (Bld) [#/Vol] 6.8 K/CUMM Normal 4.5-11.0 [facility] Comment on above: Performed By: #### L 200.40288, L200.65115 #### [facility] [address] [place] [address] CMPon 07-04-2019 Albumin [Mass/Vol] 4.4 g/dL Normal 3.2-5.0 [facility] Comment on above: Performed By: #### L 500.74299, L500.00756, L500.53286, L550.80582, L700.56039 #### [facility] [address] [place] [address] Albumin/Globulin [Mass ratio] 1.3 {ratio} Normal 0.8-2.0 [facility] Comment on above: Performed By: #### L 500.62639, L500.27924, L500.04341, L550.22091, L700.03052 #### [facility] [address] [place], [place] [address] ALK PHOS 102 U/L Normal 45-117 [facility] Comment on above: Performed By: #### L 500.88822, L500.97158, L500.16431, L550.06746, L700.27965 #### [facility] [address] [place] [address] ALT [Catalytic activity/Vol] 48 U/L Normal 13-61 [facility] Comment on above: Result Comment: RESU LTS MAY BE FALSELY DEPRESSED AFTER THE ADMINISTRATION OF SULFASALAZINE AND/OR SULFAPYRIDINE. Performed By: #### L 500.42851, L500.74173, L500.88617, L550.25868, L700.45423 #### [facility] [address] [place] [address] Anion gap [Moles/Vol] 10 mmol/L Normal 5-16 [facility] Comment on above: Performed By: #### L 500.46952, L500.45884, L500.09512, L550.45917, L700.63004 #### [facility] [address] [place] [address] BILI TOTAL 0.4 MG/DL Normal 0.2-1.0 [facility] Comment on above: Performed By: #### L 500.52149, L500.64196, L500.71567, L550.27261, L700.58377 #### [facility] [address] [place] [address] Calcium [Mass/Vol] 8.9 mg/dL Normal 8.5-10.1 [facility] Comment on above: Performed By: #### L 500.42639, L500.23022, L500.94795, L550.62574, L700.34326 #### [facility] [address] [place] [address] Chloride [Moles/Vol] 101 mmol/L Normal 98-107 [facility] Comment on above: Performed By: #### L 500.72336, L500.71555, L500.75445, L550.98432, L700.02909 #### [facility] [address] [place] [address] CO2 [Moles/Vol] 26 mmol/L Normal 21-32 [facility] Comment on above: Performed By: #### L 500.51175, L500.96538, L500.90857, L550.83985, L700.00150 #### [facility] [address] [place] [address] Creatinine [Mass/Vol] 0.739 mg/dL Normal 0.510-0.950 [facility] Comment on above: Result Comment: X[place] ents receiving either N-Acetylcysteine (NAC) or Metamizole prior to venipuncture, may have falsely depressed results. Performed By: #### L 500.00249, L500.56059, L500.40213, L550.98025, L700.36176 #### [facility] [address] [place] [address] Globulin (S) [Mass/Vol] 3.3 g/dL Normal 2.2-4.2 [facility] Comment on above: Performed By: #### L 500.22597, L500.27660, L500.30510, L550.73071, L700.10214 #### [facility] [address] [place] [address] Glucose [Mass/Vol] 85 mg/dL Normal 70-100 [facility] Comment on above: Result Comment: 70-1 00- Normal Fasting; 100-125 Impaired Fasting; greater than 126 on more than one result- Diabetes. ADA guidelines. Results may be falsely elevated after the administration of Sulfapyridine. Results may be falsely depressed after the administration of Sulfasalazine. Performed By: #### L 500.34455, L500.28630, L500.61781, L550.59445, L700.97161 #### [facility] [address] [place] [address] Potassium [Moles/Vol] 3.8 mmol/L Normal 3.5-5.1 [facility] Comment on above: Performed By: #### L 500.67064, L500.15014, L500.55137, L550.90104, L700.44884 #### [facility] [place] [address] Protein [Mass/Vol] 7.7 g/dL Normal 6.0-8.5 [facility] Comment on above: Performed By: #### L 500.96153, L500.08760, L500.92421, L550.93584, L700.13811 #### [facility] [address] [place] [address] SGOT (AST) 29 U/L Normal 8-34 [facility] Comment on above: Result Comment: RESU LTS MAY BE FALSELY DEPRESSED AFTER THE ADMINISTRATION OF SULFASALAZINE AND/OR SULFAPYRIDINE. Performed By: #### L 500.10407, L500.41817, L500.38682, L550.14004, L700.22958 #### [facility] [address] [place] [address] Sodium [Moles/Vol] 136 mmol/L Normal 136-145 [facility] Comment on above: Performed By: #### L 500.60675, L500.44113, L500.70055, L550.19595, L700.83496 #### [facility] [address] [place] [address] Urea nitrogen [Mass/Vol] 17 mg/dL Normal 7-26 [facility] Comment on above: Performed By: #### L 500.71816, L500.43506, L500.14781, L550.72782, L700.14295 #### [facility] [address] [place] [address] Urea nitrogen/Creatinine [Mass ratio] 23 mg/mg Normal 15-24 [facility] Comment on above: Performed By: #### L 500.00765, L500.72494, L500.40306, L550.62950, L700.54250 #### [facility] [address] [place] [address] CRPon 07-04-2019 CRP [Mass/Vol] 0.89 MG/DL High 0.00-0.32 [facility] Comment on above: Performed By: #### L 500.27432, L500.56067, L500.95243, L550.54679, L700.80822 #### [facility] [address] [id number] FOOT 2 VIEWS BILATERALon FOOT 2 VIEWS [...] or periosteal reaction. IMPRESSION: Mild left and kdqc-bw-iutlhavw right degenerative changes most consistent with osteoarthritis. No erosions are shown. ---- Electronic Signature on File ---- Signed By: Alejandra Chavez MD [email or web address] Dictated: 07/04/2019 1:01 PM Signed: 07/04/2019 1:10 PM Reported By: ALEJANDRA CHAVEZ M.D. Signed By: ALEJANDRA CHAVEZ M.D. [facility] 07-04-2019 IF AMER Greater than 60 [facility] Comment on above: Performed By: #### L 500.93206, L500.17360, L500.61272, L550.89514, L700.40622 #### [facility] [address] [place] [address] IF non-AFR AMER Greater than 62 [facility] Comment on above: Performed By: #### L 500.62769, L500.72911, L500.29370, L550.22026, L700.08352 #### [facility] [address] [place] [id number] HAND 2 VIEWS BILATERALon HAND 2 VIEWS [...] or periosteal reaction. IMPRESSION: Mild left and [id number] right degenerative changes most consistent with osteoarthritis. No erosions are shown. ---- Electronic Signature on File ---- Signed By: Alejandra Chavez MD [email or web address] Dictated: 07/04/2019 1:01 PM Signed: 07/04/2019 1:10 PM Reported By: ALEJANDRA CHAVEZ M.D. Signed By: ALEJANDRA CHAVEZ M.D. Normal [facility] HBCABon 07-04-2019 HBCAB NONREACTIVE Normal NONREACTIVE [facility] Comment on above: Result Comment: RESU LTS WERE OBTAINED WITH THE CENTAUR XP ANTI-HCB ASSAY. VALUES OBTAINED WITH DIFFERENT MANUFACTURERS' ASSAY METHODS MAY NOT BE USED INTERCHANGEABLY. Performed By: #### L 540.49632, L540.13763, L540.43958, L540.07727 #### [facility] [address] [place] [address] HBSAGon 07-04-2019 HBSAG NONREACTIVE Normal NONREACTIVE [facility] Comment on above: Result Comment: RESU LTS WERE OBTAINED WITH THE SmartCrowdzAUR XP. VALUES OBTAINED WITH DIFFERENT MANUFACTURERS' ASSAY METHODS MAY NOT BE USED INTERCHANGEABLY. Performed By: #### L 540.45842, L540.81967, L540.39976, L540.64100 #### [facility] [address] [place] [address] HEP B AB QUANTon 07-04-2019 HEP B AB QUANT 31.50 mIU/mL High 0.00-9.99 [facility] Comment on above: Result Comment: STAT US OF IMMUNITY Protective Immunity: greater than or equal to 10 mIU/mL (Traceable to WHO International Reference Preparation) No Protective Immuniity: less than 10 mIU/mL Note: The magnitude of the measured result above the cutoff is not indicative of the total amount of antibody present. Performed By: #### L 540.33078, L540.83410, L540.52890, L540.34486 #### [facility] [address] [place] [address] HEPATITIS C ABon 07-04-2019 HCV AB NONREACTIVE Normal NONREACTIVE [facility] Comment on above: Result Comment: SCRE ENING TEST NEGATIVE NONREACTIVE HCV ANTIBODY SCREEN IS CONSISTENT WITH NO HCV INFECTION, UNLESS RECENT INFECTION IS SUSPECTED OR OTHER EVIDENCE EXISTS TO INDICATE HCV INFECTION Performed By: #### L 500.86541, L500.25770, L500.58446, L550.27280, L700.10252 #### [facility] [address] [place] [address] KNEES 3 VIEWS BILATERALon KNEES 3 VIEWS [...] or periosteal reaction. IMPRESSION: Mild left and gwcm-gi-fxgkpqwc right degenerative changes most consistent with osteoarthritis. No erosions are shown. ---- Electronic Signature on File ---- Signed By: Alejandra Chavez MD [email or web address] Dictated: 07/04/2019 1:01 PM Signed: 07/04/2019 1:10 PM Reported By: ALEJANDRA CHAVEZ M.D. Signed By: ALEJANDRA CHAVEZ M.D. [facility] LUMBAR SPINE 2 OR 3 VWSon LUMBAR [...] or periosteal reaction. IMPRESSION: Mild left and kqjr-bq-gjjdltys right degenerative changes most consistent with osteoarthritis. No erosions are shown. ---- Electronic Signature on File ---- Signed By: Alejandra Chavez MD [email or web address] Dictated: 07/04/2019 1:01 PM Signed: 07/04/2019 1:10 PM Reported By: ALEJANDRA CHAVEZ M.D. Signed By: ALEJANDRA CHAVEZ M.D. Normal [facility] RA FACTOR QUANTon 07-04-2019 RA FACTOR QUANT LESS THAN 10 Normal Less than 15. [facility] Comment on above: Performed By: #### L 500.06538, L500.38659, L500.63580, L550.08195, L700.35731 #### [facility] [address] [place] [address]# [phone] SACROILIAC JOINTS 3 OR MORE VWon 07-04-2019 [...] or periosteal reaction. IMPRESSION: Mild left and wtbz-jb-kmsskswq right degenerative changes most consistent with osteoarthritis. No erosions are shown. ---- Electronic Signature on File ---- Signed By: Alejandra Chavez MD [email or web address] Dictated: 07/04/2019 1:01 PM Signed: 07/04/2019 1:10 PM Reported By: ALEJANDRA CHAVEZ M.D. Signed By: ALEJANDRA CHAVEZ M.D. [facility] URIC ACIDon 07-04-2019 Urate [Mass/Vol] 8.3 mg/dL High 2.6-6.0 [facility] Comment on above: Result Comment: Xena ents receiving Metamizole prior to venipuncture, may have falsely depressed results. Performed By: #### L 500.41804, L500.25737, L500.88226, L550.96365, L700.30137 #### [facility] [address] [place] [address] WSR/MODon 07-04-2019 WSR/MOD 4 MM/HR Normal 0-30 [facility] Comment on above: Performed By: #### L 200.24603, L200.82613 #### [facility] [address] [place] [address] PROGRESSon 08-07-2017 PROGRESS HNO ID: [id number]: Bianca Olivier (Rt)e: RadiologyAuthor Type: TechnicianType: Progress NotesFiled: 08/07/2017 11:07 AMNote Text: Radiology Service Progress NotePATIENT NAME: Judy TaverassMRN: [id number] OF SERVICE: August 07, 2017TIME: 11:06 AMPATIENT IDENTITY VERIFICATION COMPLETED USING TWO (2) METHODS: Patientconfirmed name verbally and ID band matches. and Patient confirmed nameverbally.PATIENT GENDER DATA: Female. status: : NoBreastfeeding status: NO.PATIENT RELEVANT IMPLANT DATA REVIEWED: YesRADIOLOGY DEPARTMENT: General X-ray: Exam(s) Completed: Chest X-RayPelvis X-Ray: sacroiliac jointsUpper Extremity X-Ray(s): Hand, bilateral :PERIPHERAL IV DATA: Not applicableSIGNED BY: RT CharlineAugust 07, 2017 11:06 AM [facility] XR CHEST 2V FRONTAL/LATon XR CHEST 2V [...] SALINAS MD on Aug 07 2017 11:37AM [id number] N [facility] XR HAND 3V PA/LAT/OBL LTon 0 08-07-2017 [...] LEFT HAND PAIN AND JOINT SWELLING (accession [id number]), RIGHT HAND PAIN, AND JOINT SWELLING X 2 MONTHS, FALL X1 WEEK AGO LANDING ON RIGHT WRIST AREA (accession [id number]), LOWER BACK PAIN, NO KNOWN INJURIES (accession [id number]) Pain in right hand Pain in left hand Effusion, unspecified joint Disorder of the skin and subcutaneous tissue, unspecified.TECHNIQUE: XR HAND 3V PA/LAT/OBL LT, XR HAND 3V PA/LAT/OBL RT, XR SI JTS 2V AP PELV/TAYLOR Laterality: NOT APPLICABLE (accession [id number]), RIGHT (accession [id number]), NOT APPLICABLE (accession [id number]) Number of different views (projections): 2 (accession [id number]), 3 (accession [id number]), 2 (accession [id number]) M: XB_1COMPARISON: NoneRESULT:Sacroiliac joints. Bilaterally the joints [...] thumb bases and IP joints of the thumbs.Orthophotography Technician: PSCB Transcribe Date/Time: Aug 07 2017 12:56PDictated by : RENAN ARMAS MDThisofya examination was interpreted and the report reviewed and electronically signed by: RENAN ARMAS MD on Aug 07 2017 1:00PM [id number] N [facility] XR HAND 3V PA/LAT/OBL RTon 0 08-07-2017 [...] LEFT HAND PAIN AND JOINT SWELLING (accession [id number]), RIGHT HAND PAIN, AND JOINT SWELLING X 2 MONTHS, FALL X1 WEEK AGO LANDING ON RIGHT WRIST AREA (accession [id number]), LOWER BACK PAIN, NO KNOWN INJURIES (accession [id number]) Pain in right hand Pain in left hand Effusion, unspecified joint Disorder of the skin and subcutaneous tissue, unspecified.TECHNIQUE: XR HAND 3V PA/LAT/OBL LT, XR HAND 3V PA/LAT/OBL RT, XR SI JTS 2V AP PELV/TAYLOR Laterality: NOT APPLICABLE (accession [id number]), RIGHT (accession [id number]), NOT APPLICABLE (accession [id number]) Number of different views (projections): 2 (accession [id number]), 3 (accession [id number]), 2 (accession [id number]) M: XB_1COMPARISON: NoneRESULT:Sacroiliac joints. Bilaterally the joints [...] thumb bases and IP joints of the thumbs.Orthophotography Technician: PSCB Transcribe Date/Time: Aug 07 2017 12:56PDictated by : RENAN ARMAS MDThisofya examination was interpreted and the report reviewed and electronically signed by: RENAN ARMAS MD on Aug 07 2017 1:00PM [id number] N [facility] XR SI JTS 2V AP PELV/FERGUSO Non [...] LEFT HAND PAIN AND JOINT SWELLING (accession [id number]), RIGHT HAND PAIN, AND JOINT SWELLING X 2 MONTHS, FALL X1 WEEK AGO LANDING ON RIGHT WRIST AREA (accession [id number]), LOWER BACK PAIN, NO KNOWN INJURIES (accession [id number]) Pain in right hand Pain in left hand Effusion, unspecified joint Disorder of the skin and subcutaneous tissue, unspecified.TECHNIQUE: XR HAND 3V PA/LAT/OBL LT, XR HAND 3V PA/LAT/OBL RT, XR SI JTS 2V AP PELV/TAYLOR Laterality: NOT APPLICABLE (accession [id number]), RIGHT (accession [id number]), NOT APPLICABLE (accession [id number]) Number of different views (projections): 2 (accession [id number]), 3 (accession [id number]), 2 (accession [id number]) M: XB_1COMPARISON: NoneRESULT:Sacroiliac joints. Bilaterally the joints [...] thumb bases and IP joints of the thumbs.Orthophotography Technician: PSCB Transcribe Date/Time: Aug 07 2017 12:56PDictated by : RENAN ARMAS MDThisofya examination was interpreted and the report reviewed and electronically signed by: RENAN ARMAS MD on Aug 07 2017 1:00PM [id number] N [facility] Outside Radiology Readon Outside Radiology Read This is a prelimi nary report only. This report will be final only after practitioner review and authentication has occurred.NAME: TRINA REAGAN#: [id number] OF STUDY: 06/14/2017RADIOLOGYREASO N FOR X-RAY: Right [...] patellofemoral replacement seen on the left. EUNICE PENNINGTON/MANUELL/[id number]: 06/14/2017 12:34:39 [facility] PT NAME: TRINA REAGAN#: [id number] [place] [address] ACCT: [id number]: 62DOWNTIME RADIOLGY REPORT ADM DATE: Normal [facility] Vital Signs Date Time Vital Sign Value Performing Clinician Bennie penaloza 04-17-2025 15:06-0400 Body height 162.[address] Hernandez Mosley MD Work Phone: [facility] 04-17-2025 15:06-0400 Body mass index (BMI) [Ratio] 28 kg/m2 Dr. Hernandez Mosley MD Work Phone: [facility] 04-17-2025 15:06-0400 Body temperature 97.7 [degF] Dr. Hernandez Mosley MD Work Phone: [facility] 04-17-2025 15:06-0400 Body weight 74.[address] Hernandez Mosley MD Work Phone: [facility] 04-17-2025 15:06-0400 Diastolic blood pressure 98 mm[Hg] Dr. Hernandez Mosley MD Work Phone: [facility] 04-17-2025 15:06-0400 Heart rate 78 /min Dr. Hernandez Mosley MD Work Phone: [facility] 04-17-2025 15:06-0400 Respiratory rate 18 /min Dr. Hernandez Mosley MD Work Phone: [facility] 04-17-2025 15:06-0400 SaO2% (BldA) [Mass fraction] 97 % Dr. Hernandez Mosley MD Work Phone: [facility] 04-17-2025 15:06-0400 Systolic blood pressure 146 mm[Hg] Dr. Hernandez Mosley MD Work Phone: 5(187)136-233223 [place] [address] 03-29-2025 13:05-0400 Body temperature 97.8 [degF] Dr. Hernandez Mosley MD Work Phone: 0(039)098-064323 [place] [address] 03-29-2025 13:05-0400 Diastolic blood pressure 85 mm[Hg] Dr. Hernandez Mosley MD Work Phone: 4(773)973-002457 [place] [address] 03-29-2025 13:05-0400 Heart rate 71 /min Dr. Hernandez Mosley MD Work Phone: 6(683)655-098457 [place] [address] 03-29-2025 13:05-0400 Respiratory rate 16 /min Dr. Hernandez Mosley MD Work Phone: 5(520)824-497157 [place] [address] 03-29-2025 13:05-0400 SaO2% (BldA) [Mass fraction] 96 % Dr. Hernandez Mosley MD Work Phone: 5(269)960-792557 [place] [address] 03-29-2025 13:05-0400 Systolic blood pressure 135 mm[Hg] Dr. Hernandez Mosley MD Work Phone: 1(067)793-866757 [place] [address] 03-29-2025 12:23-0400 Body temperature 97.8 [degF] Dr. Hernandez Mosley MD Work Phone: 6(617)732-607557 [place] [address] 03-29-2025 12:23-0400 Diastolic blood pressure 98 mm[Hg] Dr. Hernandez Mosley MD Work Phone: 6(266)419-556557 [place] [address] 03-29-2025 12:23-0400 Heart rate 69 /min Dr. Hernandez Mosley MD Work Phone: 5(119)855-159823 [place] [address] 03-29-2025 12:23-0400 Respiratory rate 16 /min Dr. Hernandez Mosley MD Work Phone: 6(883)208-365257 [place] [address] 03-29-2025 12:23-0400 SaO2% (BldA) [Mass fraction] 100 % Dr. Hernandez Mosley MD Work Phone: 4(644)563-590857 [place] [address] 03-29-2025 12:23-0400 Systolic blood pressure 176 mm[Hg] Dr. Hernandez Mosley MD Work Phone: [facility] 03-26-2025 13:50-0400 Body height 162.[address] Hernandez Mosley MD Work Phone: [facility] 03-26-2025 13:50-0400 Body weight 73.[address] Hernandez Mosley MD Work Phone: 6(351)346-699357 [place] [address] 03-25-2025 19:14-0400 Body mass index (BMI) [Ratio] 27.7 kg/m2 Dr. Hernandez Mosley MD Work Phone: 7(607)655-685257 [place] [address] 03-25-2025 18:16-0400 Body temperature 99.2 [degF] Dr. Hernandez Mosley MD Work Phone: 2(420)318-905823 [place] [address] 03-25-2025 18:16-0400 Diastolic blood pressure 96 mm[Hg] Dr. Hernandez Mosley MD Work Phone: 7(638)954-390057 [place] [address] 03-25-2025 18:16-0400 Heart rate 97 /min Dr. Hernandez Mosley MD Work Phone: 3(588)171-553923 [place] [address] 03-25-2025 18:16-0400 Respiratory rate 15 /min Dr. Hernandez Mosley MD Work Phone: 3(146)884-464323 [place] [address] 03-25-2025 18:16-0400 SaO2% (BldA) [Mass fraction] 94 % Dr. Hernandez Mosley MD Work Phone: [facility] 03-25-2025 18:16-0400 Systolic blood pressure 117 mm[Hg] Dr. Hernandez Mosley MD Work Phone: [facility] 03-25-2025 15:08-0400 Diastolic blood pressure 91 mm[Hg] Dr. Hernandez Mosley MD Work Phone: [facility] 03-25-2025 15:08-0400 Heart rate 85 /min Dr. Hernandez Mosley MD Work Phone: [facility] 03-25-2025 15:08-0400 Respiratory rate 18 /min Dr. Hernandez Mosley MD Work Phone: [facility] 03-25-2025 15:08-0400 SaO2% (BldA) [Mass fraction] 99 % Dr. Hernandez Mosley MD Work Phone: [facility] 03-25-2025 15:08-0400 Systolic blood pressure 151 mm[Hg] Dr. Hernandez Mosley MD Work Phone: [facility] 03-25-2025 15:02-0400 Body mass index (BMI) [Ratio] 28.4 kg/m2 Dr. Hernandez Mosley MD Work Phone: 6(827)007-422623 [place] [address] 03-25-2025 15:02-0400 Body weight 75.[address] Hernandez Mosley MD Work Phone: 6(292)691-646023 [place] [address] 03-25-2025 14:09-0400 Body height 162.[address] Hernandez Mosley MD Work Phone: 6(012)675-445623 [place] [address] 03-25-2025 14:09-0400 Body temperature 99.9 [degF] Dr. Hernandez Mosley MD Work Phone: 1(771)882-104710 [address] 03-10-2025 09:05-0400 Body temperature 97 [degF] Dr. Hernandez Mosley MD Work Phone: [facility] 03-10-2025 09:05-0400 Diastolic blood pressure 74 mm[Hg] Dr. Hernandze Mosley MD Work Phone: [facility] 03-10-2025 09:05-0400 Heart rate 64 /min Dr. Hernandez Mosley MD Work Phone: [facility] 03-10-2025 09:05-0400 Respiratory rate 16 /min Dr. Hernandez Mosley MD Work Phone: [facility] 03-10-2025 09:05-0400 SaO2% (BldA) [Mass fraction] 96 % Dr. Hernandez Mosley MD Work Phone: [facility] 03-10-2025 09:05-0400 Systolic blood pressure 111 mm[Hg] Dr. Hernandez Mosley MD Work Phone: 5(716)707-665223 [place] [address] 03-10-2025 07:32-0400 Body height 162.[address] Hernandez Mosley MD Work Phone: 4(352)231-705723 [place] [address] 03-10-2025 07:32-0400 Body mass index (BMI) [Ratio] 28.8 kg/m2 Dr. Hernandez Mosley MD Work Phone: 7(675)406-732857 [place] [address] 03-10-2025 07:32-0400 Body weight [address] Hernandez Mosley MD Work Phone: 7(057)922-298457 [place] [address] 10-07-2024 12:20-0400 Body temperature 97.5 [degF] Dr. Hernandez Mosley MD Work Phone: 9(258)054-360457 [place] [address] 10-07-2024 12:20-0400 Diastolic blood pressure 91 mm[Hg] Dr. Hernandez Mosley MD Work Phone: 5(446)140-853557 [place] [address] 10-07-2024 12:20-0400 Heart rate 75 /min Dr. Hernandez Mosley MD Work Phone: 0(958)085-305957 [place] [address] 10-07-2024 12:20-0400 Respiratory rate 16 /min Dr. Hernandez Mosley MD Work Phone: 2(781)341-824657 [place] [address] 10-07-2024 12:20-0400 SaO2% (BldA) [Mass fraction] 100 % Dr. Hernandez Mosley MD Work Phone: 2(786)621-265957 [place] [address] 10-07-2024 12:20-0400 Systolic blood pressure 149 mm[Hg] Dr. Hernandez Mosley MD Work Phone: 0(230)830-013157 [place] [address] 10-07-2024 11:21-0400 Body height 162.[address] Hernandez Mosley MD Work Phone: 6(271)165-881957 [place] [address] 10-07-2024 11:21-0400 Body mass index (BMI) [Ratio] 28.3 kg/m2 Dr. Hernandez Mosley MD Work Phone: 7(838)185-614257 [place] [address] 10-07-2024 11:21-0400 Body weight [address] Hernandez Mosley MD Work Phone: 0(633)520-671757 [place] [address] 06-24-2024 09:37-0500 Body mass index (BMI) [Ratio] 28.1 kg/m2 Dr. Hernandez Mosley MD Work Phone: 6(932)394-559923 [place] [address] 06-24-2024 09:37-0500 Body temperature 98 [degF] Dr. Hernandez Mosley MD Work Phone: 8(069)933-230057 [place] [address] 06-24-2024 09:37-0500 Body weight 74.[address] Hernandez Mosley MD Work Phone: 8(018)883-252357 [place] [address] 06-24-2024 09:37-0500 Diastolic blood pressure 88 mm[Hg] Dr. Hernandez Mosley MD Work Phone: 9(106)240-249257 [place] [address] 06-24-2024 09:37-0500 Heart rate 97 /min Dr. Hernandez Mosley MD Work Phone: 9(498)176-304857 [place] [address] 06-24-2024 09:37-0500 Respiratory rate 16 /min Dr. Hernandez Mosley MD Work Phone: 7(474)704-192257 [place] [address] 06-24-2024 09:37-0500 SaO2% (BldA) [Mass fraction] 98 % Dr. Hernandez Mosley MD Work Phone: 2(946)596-804757 [place] [address] 06-24-2024 09:37-0500 Systolic blood pressure 132 mm[Hg] Dr. Hernandez Mosley MD Work Phone: 0(183)975-677557 [place] [address] 11-14-2023 13:55-0400 Body temperature 97.4 [degF] Dr. Hernandez Mosley Work Phone: 8(422)530-344857 [place] [address] 11-14-2023 13:55-0400 Diastolic blood pressure 87 mm[Hg] Dr. Hernandez Mosley Work Phone: 8(191)863-260423 [place] [address] 11-14-2023 13:55-0400 Heart rate 80 /min Dr. Hernandez Mosley Work Phone: 3(345)864-365023 [place] [address] 11-14-2023 13:55-0400 Respiratory rate 16 /min Dr. Hernandez Mosley Work Phone: 1(950)738-234523 [place] [address] 11-14-2023 13:55-0400 SaO2% (BldA) [Mass fraction] 95 % Dr. Hernandez Mosley Work Phone: [facility] 11-14-2023 13:55-0400 Systolic blood pressure 120 mm[Hg] Dr. Hernandez Mosley Work Phone: [facility] 11-14-2023 12:05-0400 Body height 162.[address] Hernandez Mosley Work Phone: 7(559)073-168423 [place] [address] 11-14-2023 12:05-0400 Body mass index (BMI) [Ratio] 28.3 kg/m2 Dr. Hernandez Mosley Work Phone: 9(855)776-314423 [place] [address] 11-14-2023 12:05-0400 Body weight [address] Hernandez Mosley Work Phone: 7(180)964-666523 [place] [address] 10-18-2023 14:15-0400 Body height 162.[address] Hernandez Mosley Work Phone: 0(561)313-581123 [place] [address] 10-18-2023 14:15-0400 Body mass index (BMI) [Ratio] 28.1 kg/m2 Dr. Hernandez Mosley Work Phone: 6(961)120-576123 [place] [address] 10-18-2023 14:15-0400 Body weight 74.[address] Hernandez Mosley Work Phone: 9(470)295-892123 [place] [address] 10-18-2023 14:15-0400 Diastolic blood pressure 69 mm[Hg] Dr. Hernandez Mosley Work Phone: 9(381)632-364623 [place] [address] 10-18-2023 14:15-0400 Heart rate 92 /min Dr. Hernandez Mosley Work Phone: [facility] 10-18-2023 14:15-0400 Respiratory rate 17 /min Dr. Hernandez Mosley Work Phone: 6(920)609-259523 [place] [address] 10-18-2023 14:15-0400 SaO2% (BldA) [Mass fraction] 95 % Dr. Hernandez Mosley Work Phone: [facility] 10-18-2023 14:15-0400 Systolic blood pressure 115 mm[Hg] Dr. Hernandez Mosley Work Phone: [facility] 09-26-2023 09:00-0500 Body temperature 97.8 [degF] Dr. Hernandez Mosley Work Phone: [facility] 09-26-2023 09:00-0500 Diastolic blood pressure 88 mm[Hg] Dr. Hernandez Mosley Work Phone: [facility] 09-26-2023 09:00-0500 Heart rate 84 /min Dr. Hernandez Mosley Work Phone: [facility] 09-26-2023 09:00-0500 Respiratory rate 18 /min Dr. Hernandez Mosley Work Phone: [facility] 09-26-2023 09:00-0500 SaO2% (BldA) [Mass fraction] 98 % Dr. Hernandez Mosley Work Phone: [facility] 09-26-2023 09:00-0500 Systolic blood pressure 152 mm[Hg] Dr. Hernandez Mosley Work Phone: [facility] 09-26-2023 03:13-0500 Body mass index (BMI) [Ratio] 27.9 kg/m2 Dr. Hernandez Mosley Work Phone: [facility] 09-26-2023 03:13-0500 Body weight 74.[address] Hernandez Mosley Work Phone: [facility] 09-25-2023 15:08-0500 Body height 162.[address] Hernandez Mosley Work Phone: [facility] 09-24-2023 04:45-0500 Body temperature 97.8 [degF] Dr. Hernandez Mosley Work Phone: [facility] 09-24-2023 04:45-0500 Diastolic blood pressure 97 mm[Hg] Dr. Hernandez Msoley Work Phone: [facility] 09-24-2023 04:45-0500 Heart rate 96 /min Dr. Hernandez Mosley Work Phone: [facility] 09-24-2023 04:45-0500 Respiratory rate 18 /min Dr. Hernandez Mosley Work Phone: [facility] 09-24-2023 04:45-0500 SaO2% (BldA) [Mass fraction] 99 % Dr. Hernandez Mosley Work Phone: [facility] 09-24-2023 04:45-0500 Systolic blood pressure 153 mm[Hg] Dr. Hernandez Mosley Work Phone: [facility] 09-24-2023 04:34-0500 Body height 162.[address] Hernandez Mosley Work Phone: [facility] 09-24-2023 04:34-0500 Body mass index (BMI) [Ratio] 28.3 kg/m2 Dr. Hernandez Mosley Work Phone: [facility] 09-24-2023 04:34-0500 Body weight [address] Hernandez Mosley Work Phone: [facility] 07-05-2023 09:42-0500 Body weight 75.[address] Hernandez Mosley Work Phone: [facility] 06-21-2023 18:09-0500 Body temperature 97.2 [degF] Dr. Hernandez Mosley Work Phone: [facility] 06-21-2023 18:09-0500 Diastolic blood pressure 96 mm[Hg] Dr. Hernandez Mosley Work Phone: [facility] 06-21-2023 18:09-0500 Heart rate 91 /min Dr. Hernandez Mosley Work Phone: [facility] 06-21-2023 18:09-0500 Respiratory rate 16 /min Dr. Hernandez Mosley Work Phone: [facility] 06-21-2023 18:09-0500 SaO2% (BldA) [Mass fraction] 94 % Dr. Hernandez Mosley Work Phone: [facility] 06-21-2023 18:09-0500 Systolic blood pressure 143 mm[Hg] Dr. Hernandez Mosley Work Phone: [facility] 06-21-2023 15:20-0500 Inhaled oxygen flow rate 4 L/min Dr. Hernandez Mosley Work Phone: [facility] 06-21-2023 09:45-0500 Body height 162.[address] Hernandez Mosley Work Phone: [facility] 06-21-2023 09:45-0500 Body mass index (BMI) [Ratio] 28 kg/m2 Dr. Hernandez Mosley Work Phone: [facility] 06-21-2023 09:45-0500 Body weight [address] Hernandez Mosley Work Phone: 4(335)311-722823 [place] [address] 04-22-2023 00:38-0400 Respiratory rate 116 /min Dr. Hernandez Mosley Work Phone: 6(832)899-757723 [place] [address] 04-21-2023 23:12-0400 Body height 162.[address] Hernandez Mosley Work Phone: [facility] 04-21-2023 23:12-0400 Body mass index (BMI) [Ratio] 29.4 kg/m2 Dr. Hernandez Mosley Work Phone: [facility] 04-21-2023 23:12-0400 Body temperature 96.7 [degF] Dr. Hernandez Mosley Work Phone: [facility] 04-21-2023 23:12-0400 Body weight 77.[address] Hernandez Mosley Work Phone: [facility] 04-21-2023 23:12-0400 Diastolic blood pressure 73 mm[Hg] Dr. Hernandez Mosley Work Phone: [facility] 04-21-2023 23:12-0400 Heart rate 70 /min Dr. Hernandez Mosley Work Phone: [facility] 04-21-2023 23:12-0400 SaO2% (BldA) [Mass fraction] 97 % Dr. Hernandez Mosley Work Phone: 4(179)404-214223 [place] [address] 04-21-2023 23:12-0400 Systolic blood pressure 115 mm[Hg] Dr. Hernandez Mosley Work Phone: 6(948)294-838723 [place] [address] 10-15-2022 14:12-0400 Body temperature 98.3 [degF] Dr. Hernandez Mosley Work Phone: 1(387)610-323923 [place] [address] 10-15-2022 14:12-0400 Diastolic blood pressure 79 mm[Hg] Dr. Hernandez Mosley Work Phone: [phone] [place] [address] 10-15-2022 14:12-0400 Heart rate 85 /min Dr. Hernandez Mosley Work Phone: [phone] [place] [address] 10-15-2022 14:12-0400 Respiratory rate 18 /min Dr. Hernandez Mosley Work Phone: [phone] [place] [address] 10-15-2022 14:12-0400 SaO2% (BldA) [Mass fraction] 98 % Dr. Hernandez Mosley Work Phone: [phone] [place] [address] 10-15-2022 14:12-0400 Systolic blood pressure 130 mm[Hg] Dr. Hernandez Mosley Work Phone: [phone] [place] [address] 10-14-2022 09:14-0400 Body height 162.[address] Hernandez Mosley Work Phone: [phone] [place] [address] 10-14-2022 09:14-0400 Body weight 72.[address] Hernandez Mosley Work Phone: [phone] [place] [address] 10-11-2022 20:21-0400 Inhaled oxygen flow rate 2 L/min Dr. Hernandez Mosley Work Phone: [phone] [place] [address] 10-11-2022 18:03-0400 Body mass index (BMI) [Ratio] 27.4 kg/m2 Dr. Hernandez Mosley Work Phone: [phone] [place] [address] 06-24-2022 10:35-0500 Body height 162.[address] Hernandez Mosley Work Phone: [phone] [place] [address] 12-22-2021 11:57-0400 Respiratory rate 16 /min [facility] Work Phone: 12-22-2021 10:20-0400 Diastolic blood pressure 97 mm[Hg] [facility] Work Phone: 12-22-2021 10:20-0400 Heart rate 113 /min [facility] Work Phone: 12-22-2021 10:20-0400 SaO2% (BldA) [Mass fraction] 97 % [facility] Work Phone: 12-22-2021 10:20-0400 Systolic blood pressure 159 mm[Hg] [facility] Work Phone: 12-22-2021 08:21-0400 Body height 162.56 cm [facility] Work Phone: 12-22-2021 08:21-0400 Body mass index (BMI) [Ratio] 28.4 kg/m2 [facility] Work Phone: 12-22-2021 08:21-0400 Body temperature 98.1 [degF] [facility] Work Phone: 12-22-2021 08:21-0400 Body weight 75.2 kg [facility] Work Phone: Encounters Encounter Date Encounter Type Care Provider Facility Start: 06-05-2025 ambulatory Stanley Godwin Facility :[facility] Start: 06-02-2025 ambulatory Hernandez Mosley Facility:[facility] Start: 04-17-2025 End: 04-17-2025 Patient encounter procedure Emmy DO -[facility] Work Phone: Start: 04-17-2025 End: 04-17-[address] Hernandez Mosley MD Work Phone: -[facility] Start: 03-29-2025 Non-patient / Non-visit Dr. Jorge L Jin MD -[facility] Work Phone: Start: 03-28-2025 Non-patient / Non-visit Dr. Jorge L Jin MD -[facility] Work Phone: Start: 03-27-2025 Non-patient / Non-visit Dr. Jorge L Jin MD -[facility] Work Phone: Start: 03-26-2025 Non-patient / Non-visit Emmy Modi NP-[place]ony[facility] -[facility] Start: 03-26-2025 Non-patient / Non-visit Dr. Jorge L Jin MD -[facility] Work Phone: Start: 03-25-2025 ambulatory Hernandez Mosley Facility:[facility] Start: 03-25-2025 End: 03-29-2025 Evaluation and management of inpatient Dr. Jennifer Dunne MD -Medical Surgical 3 Work Phone: Start: 03-25-2025 Emergency department patient visit Dr. Hernandez Mosley MD Work Phone: -Emergency Department Work Phone: Start: 03-18-2025 End: 03-18-2025 Patient encounter procedure Stanley Godwin [facility] Work Phone: Start: 03-18-2025 End: 03-18-[address] Hernandez Mosley MD Work Phone: -[facility] Start: 03-18-2025 End: 03-18-2025 ambulatory Stanley [place] Facility:[facility] Start: 03-10-2025 End: 03-10-2025 Admission to same day surgery center Dr. Montana Quiñonez MD -[facility] Start: 03-10-2025 End: 03-10-[address] Hernandez Mosley MD Work Phone: -[facility] Start: 12-02-2024 End: 12-02-[address] Hernandez Mosley MD Work Phone: [facility] Work Phone: Start: 12-02-2024 End: 12-02-[address] Hernandez Mosley MD -Laboratory Work Phone: Start: 12-02-2024 End: 12-02-2024 ambulatory Hernandez Mosley Facility:[facility] Start: 10-28-2024 End: 10-28-2024 Patient encounter procedure Stanley Godwin -[facility] Work Phone: Start: 10-28-2024 End: 10-28-[address] Hernandez Mosley MD Work Phone: [facility] Work Phone: Start: 10-28-2024 End: 10-28-2024 ambulatory Stanley Godwin Facility:[facility] Start: 10-07-2024 End: 10-07-2024 Admission to same day surgery center Dr. Montana Quiñonez MD -[facility] Start: 10-07-2024 End: 10-07-[address] Hernandez Mosley MD Work Phone: [facility] Work Phone: Start: 09-05-2024 ambulatory Hernandez Antonio Dhillonok Facility:[facility] Start: 08-12-2024 End: 08-12-2024 Patient encounter procedure Stanley Godwin DO -[facility] Work Phone: Start: 08-12-2024 End: 08-12-2024 ambulatory Stanley Godwin Facility:[facility] Start: 06-24-2024 End: 06-24-2024 Patient encounter procedure Gautam Vale NE -[facility] Work Phone: Start: 06-24-2024 End: 06-24-2024 ambulatory Hernandez Mosley Facility:[facility] Start: 11-14-2023 Non-patient / Non-visit Dr. Hernandez Mosley Work Phone: [facility] Start: 11-14-2023 End: 11-14-2023 Admission to same day surgery center Dr. Hernandez Mosley Work Phone: [facility]-Endoscopy Work Phone: Start: 11-14-2023 End: 11-14-[address] Hernandez Mosley Work Phone: [facility] Work Phone: Start: 11-13-2023 End: 11-13-[address] Hernandez Mosley Work Phone: [facility] Work Phone: Start: 11-10-2023 End: 11-10-[address] Hernandez Mosley Work Phone: [facility] Work Phone: Start: 10-27-2023 End: 10-27-[address] Hernandez Mosley Work Phone: [facility] Work Phone: Start: 10-27-2023 End: 10-27-[address] Hernandez Mosley Work Phone: [facility] Work Phone: Start: 10-24-2023 End: 10-24-[address] Hernandez Mosley Work Phone: [facility] Work Phone: Start: 10-24-2023 End: 10-24-[address] Hernandez Mosley Work Phone: [facility] Work Phone: Start: 10-23-2023 End: 10-23-[address] Hernandez Mosley Work Phone: [facility] Work Phone: Start: 10-18-2023 End: 10-18-[address] Hernandez Mosley Work Phone: [facility] Work Phone: Start: 09-26-2023 Non-patient / Non-visit Dr. Hernandez Mosley Work Phone: [facility] Work Phone: Start: 09-25-2023 Non-patient / Non-visit Dr. Hernandez Mosley Work Phone: [facility] Work Phone: Start: 09-25-2023 Non-patient / Non-visit Dr. Hernandez Mosley Work Phone: [facility] Start: 09-24-2023 Non-patient / Non-visit Dr. Hernandez Mosley Work Phone: [facility] Start: 09-24-2023 Non-patient / Non-visit Dr. Hernandez Mosley Work Phone: [facility] Work Phone: Start: 09-24-2023 End: 09-26-2023 Evaluation and management of inpatient Dr. Hernnadez Mosley Work Phone: [facility]-Progressive Care Unit Work Phone: Start: 09-21-2023 End: 09-21-[address] Hernandez Mosley Work Phone: [facility] Work Phone: Start: 09-21-2023 End: 09-21-[address] Hernandez Mosley Work Phone: [facility]-Laboratory Work Phone: Start: 09-18-2023 End: 09-18-[address] Hernandez Mosley Work Phone: [facility] Work Phone: Start: 09-18-2023 End: 09-18-[address] Hernandez Mosley Work Phone: [facility]-Laboratory, Phy Office 3rd Flr Start: 08-21-2023 End: 08-21-[address] Hernandez Mosley Work Phone: [facility] Work Phone: Start: 08-17-2023 End: 08-17-[address] Hernandez Mosley Work Phone: [facility] Work Phone: Start: 08-17-2023 End: 08-17-[address] Hernandez Mosley Work Phone: [facility]-Physical Therapy Work Phone: Start: 08-17-[address] Hernandez tovar Work Phone: [facility] Work Phone: Start: 08-04-2023 End: 08-04-[address] Hernandez Mosley Work Phone: [facility] Work Phone: Start: 07-07-[address] Hernnadez tovar Work Phone: [facility]-Physical Therapy Work Phone: Start: 07-05-2023 End: 07-05-[address] Hernandez Mosley Work Phone: [facility] Work Phone: Start: 07-05-2023 End: 07-05-[address] Hernandez Mosley Work Phone: [facility]-Laboratory, Phy Office [address] [place] [address] Start: 07-05-2023 End: 07-05-[address] Hernandez Mosley Work Phone: [facility] Work Phone: Start: 06-21-2023 Non-patient / Non-visit Dr. Hernandez Mosley Work Phone: [facility] Start: 06-21-2023 End: 06-21-2023 Admission to same day surgery center Dr. Hernandez Mosley Work Phone: [facility]-Surgical Day Care Start: 06-21-2023 End: 06-21-[address] Hernandez Mosley Work Phone: [facility] Work Phone: Start: 06-19-2023 End: 06-19-2023 Non-patient / Non-visit Dr. Hernandez Mosley Work Phone: [facility] Work Phone: Start: 05-31-2023 End: 05-31-[address] Hernandez Mosley Work Phone: [facility] Work Phone: Start: 05-18-2023 End: 05-18-[address] Hernandez Mosley Work Phone: [facility] Work Phone: Start: 04-21-2023 End: 04-22-2023 Emergency department patient visit Dr. Hernandez Mosley Work Phone: [facility]-Emergency Department Work Phone: Start: 04-19-2023 End: 04-19-[address] Hernandez Mosley Work Phone: [facility] Work Phone: Start: 01-12-2023 End: 01-12-[address] Hernandez Mosley Work Phone: [facility] Work Phone: Start: 10-15-2022 Non-patient / Non-visit Dr. Hernandez Mosley Work Phone: [facility] Start: 10-14-2022 Non-patient / Non-visit Dr. Hernandez Mosley Work Phone: [facility] Start: 10-13-2022 Non-patient / Non-visit Dr. Hernandez Mosley Work Phone: [facility] Start: 10-13-2022 Non-patient / Non-visit Dr. Hernandez Mosley Work Phone: [facility] Start: 10-12-2022 Non-patient / Non-visit Dr. Hernandez Mosley Work Phone: [facility] Start: 10-11-2022 Non-patient / Non-visit Dr. Hernandez Mosley Work Phone: [facility] Start: 10-11-2022 Non-patient / Non-visit Dr. Hernandez Mosley Work Phone: [facility] Start: 10-11-2022 Non-patient / Non-visit Dr. Hernandez Mosley Work Phone: [facility] Start: 10-11-2022 End: 10-15-2022 Evaluation and management of inpatient Dr. Hernandez Mosley Work Phone: [facility]-Medical Surgical 3 Start: 10-10-2022 Non-patient / Non-visit Dr. Hernandez Mosley Work Phone: [facility] Start: 09-30-2022 End: 09-30-[address] Hernandez Mosley Work Phone: [facility] Start: 09-23-2022 End: 09-23-[address] Hernandez Mosley Work Phone: [facility] Work Phone: Start: 09-23-2022 End: 09-23-[address] Hernandez Mosley Work Phone: [facility]-Pulmonary Services/Neurology Start: 09-13-2022 End: 09-13-[address] Hernandez Mosley Work Phone: [facility] Work Phone: Start: 09-13-2022 End: 09-13-[address] Hernandez Mosley Work Phone: [facility]-Laboratory, Phy Office 3rd Flr Start: 09-07-2022 End: 09-07-[address] Hernandez Mosley Work Phone: [facility] Work Phone: Start: 09-07-2022 End: 09-07-[address] Hernandez Mosley Work Phone: [facility]-Outpatient Breast Imaging Start: 08-22-2022 Telephone encounter Uriel barr MD Work Phone: Pain Management Comment on above: Patient Question Start: 08-09-2022 End: 08-09-[address] Hernandez Mosley Work Phone: [facility] Work Phone: Start: 08-09-2022 End: 08-09-[address] Hernandez Mosley Work Phone: [facility]-Pre-Admission Testing Start: 08-04-2022 End: 08-04-[address] Hernandez Mosley Work Phone: [facility] Work Phone: Start: 08-04-2022 End: 08-04-[address] Hernandez Mosley Work Phone: [facility]-Laboratory, Phy Office 3rd Flr Start: 06-30-2022 End: 06-30-[address] Hernandez Mosley Work Phone: [facility] Start: 06-24-2022 End: 06-24-[address] Hernandez Mosley Work Phone: [facility] Start: 06-09-2022 End: 06-09-[address] Hernandez Mosley Work Phone: [facility]-MRI - [facility] Start: 06-06-2022 End: 06-06-2022 ambulatory KRIS BERNARDO Facility:[facility] Start: 05-30-2022 End: 05-30-2022 ambulatory YUMIKO WELSH Facility:[facility] Start: 05-19-2022 Telephone encounter Yumiko Henry Work Phone: Podiatry Comment on above: Schedule Surgery Start: 05-18-2022 End: 05-18-2022 ambulatory YUMIKO WELSH Facility:[facility] Start: 05-18-2022 End: 05-18-2022 Subsequent hospital visit by physician Pau [facility] Kassi Mob Work Phone: Radiology Comment on above: Hallux limitus, acqu ired, unspecified laterality [M20.5X9] Start: 05-18-2022 End: 05-18-2022 Patient encounter procedure Yumiko Welsh Work Phone: Podiatry Comment on above: Hallux limitus, acqu ired, unspecified laterality (Primary Dx) Start: 05-04-2022 Telephone encounter Yumiko Henry Work Phone: Podiatry Comment on above: Patient Question (Ri ght Big toe) Start: 05-02-2022 End: 05-02-2022 ambulatory KRIS BERNARDO [facility] Start: 05-02-2022 End: 05-02-2022 Subsequent hospital visit by physician [facility] Rogers Mob Work Phone: Radiology Comment on above: Pain in both knees, unspecified chronicity [M25.561, M25.562] Start: 04-27-2022 Telephone encounter Jesus Alberto fulton FLEET ASSISTANT.SECURITY AGENT Work Phone: Orthopaedics Comment on above: appointment conflict Start: 04-26-2022 Orders Only Jesus Alberto Harris FLEET ASSISTANT.SECURITY AGENT Work Phone: Orthopaedics Comment on above: Pain in both knees, unspecified chronicity (Primary Dx) Start: 04-25-2022 Telephone encounter Christian nova MD Work Phone: Orthopaedics Comment on above: Patient Question Start: 03-09-2022 End: 03-09-2022 Patient encounter procedure [facility]-Laboratory, Phy Office 3rd Flr Start: 12-22-2021 End: 12-22-2021 Emergency department patient visit [facility]-Emergency Department Start: 10-18-2021 End: 10-18-2021 Patient encounter procedure [facility]-Cat Scan, [facility] Start: 10-18-2021 End: 10-18-2021 Patient encounter procedure [facility]-Cat Scan, [facility] Start: 09-10-2021 End: 09-10-2021 Patient encounter procedure [facility]-Laboratory, Phy Office 3rd Flr Start: 08-31-2021 End: 08-31-2021 ambulatory YUMIKO TESTRAESPERANZA Facility:[facility] Start: 07-14-2021 Patient encounter procedure [facility]-Outpatient Bone Densitometry Start: 08-08-2017 Ambulatory [id number] Start: 08-07-2017 Ambulatory [facility] Start: 06-14-2017 Ambulatory Sai Estrada Fac ility:[facility] Start: 06-14-2017 Ambulatory TRINIDAD KAY Facility :[id number] Procedures Date Procedure Procedure Detail Performing Clinician Start: 03-29-[address] Hernandez tovar MD Work Phone: Start: 03-27-2025 Serum inorganic phosphate measurement Dr. Hernandez Mosley MD Work Phone: Start: 03-27-2025 Plain X-ray abdomen Dr. Hernandez Mosley MD Work Phone: Start: 03-25-2025 Urnls dip stick/tablet reagent auto microscopy Dr. Hernandez Mosley MD Work Phone: Start: 03-25-2025 Computed tomography of abdomen and pelvis with intravenous contrast Dr. Hernandez Mosley MD Work Phone: Start: 03-25-[address] Hernandez tovar MD Work Phone: Start: 03-18-[address] Hernandez Mosley MD Work Phone: Comment on above: Test Ordered: [id number] Ustekinumab Drug + AntibodyUstekinumab 4.0 ug/mL ES [...] Head et al. Clin Gastroenterol Hepatol 2017;15: 3905-3223.4. Braining SP, et al. Br J Dermatol;2015:173;855-857.5. Rashaun H, et al. PLOS ONE DOI;10:1371/journal.pone.9078365.6. Yue L, et al. Br J Dermatol 2014;170:261-273.These tests were developed and their performancecharacteristics determined by [employer]. They have not beencleared or approved by the Food and Drug Administration.However, both drug and anti-drug antibody assays have beendeveloped and validated in accordance with FDA Guidance forIndustry documents: Bioanalytical Method Validation (2013)and Assay Development and Validation for ImmunogenicityTesting of Therapeutic Protein Products (2016).Performed at: [facility] [address] [id number] Director: Michaela Pringle MD, Phone: [phone] at: [facility] [id number] Director: Bhaskar Mane PhD, Phone: [phone] Start: 03-10-[address] Hernandez Mosley [...] COLORECTAL CANCER SCREENING [facility] Start: 03-29-2025 Patient discharge [facility] Start: 03-26-2025 [facility] Start: 03-26-2025 Referral to gastroenterology service [facility] Start: 03-25-2025 Assessment of risk o f venous thromboembolism [facility] Start: 03-25-2025 Inhalation therapy procedure [facility] Start: 03-25-2025 Insertion of cathete r into peripheral vein [facility] Start: 03-25-2025 Providing care accor ding to standard [facility] Start: 03-25-2025 Provision of activit y privileges [facility] Start: 03-25-2025 [facility] Start: 03-25-2025 Following clinical p athway protocol [facility] Start: 03-25-2025 Verification routine [facility] Start: 03-25-2025 Admission procedure [facility] Start: 03-25-2025 Hospital admission, emergency, from emergency room, medical nature [facility] Start: 03-25-2025 Computed tomography of abdomen and pelvis with intravenous contrast Abdomen/Pelvis W IV Cont ONLY [facility] Start: 03-25-2025 CT Abdomen and Pelvi s W contrast IV [facility] Start: 03-10-2025 Anes dx/ther nerve block/injection prone pos ANESTH N BLOCK/INJ PRONE [facility] Start: 03-10-2025 Njx anes&/strd w/img tfrml edrl lmbr/sac ea lv NJX AA&/STRD TFRM EPI L/S EA [facility] Start: 03-10-2025 Injection of spinal epidural space [facility] Start: 03-10-2025 X-ray of lumbar spin e, two or three views Lumbar Spine 2 or 3 Views [facility] Start: 03-10-2025 Patient discharge [facility] Start: 10-07-2024 Njx dx/ther sbst int rlmnr lmbr/sac w/img gdn NJX INTERLAMINAR LMBR/SAC [facility] Start: 10-07-2024 Injection of spinal epidural space [facility] Start: 10-07-2024 Injection using fluoroscopic guidance [facility] Start: 10-07-2024 Patient discharge [facility] Start: 11-14-2023 Patient discharge [facility] Start: 10-23-2023 Patient referral [facility] Work Phone: Start: 09-27-2023 Blood chemistry [facility] Start: 09-26-2023 Patient discharge [facility] Start: 09-24-2023 Serum immunofixation [facility] Start: 09-24-2023 [facility] Start: 09-24-2023 [facility] Start: 09-24-2023 Referral to gastroenterology service [facility] Start: 09-24-2023 Thyroid stimulating hormone measurement [facility] Start: 09-24-2023 [facility] Start: 09-24-2023 Application of intermittent pneumatic compression device [facility] Start: 09-24-2023 Following clinical p athway protocol [facility] Start: 09-24-2023 Assessment of risk o f venous thromboembolism [facility] Start: 09-24-2023 Incentive spirometry [facility] Start: 09-24-2023 Inhalation therapy procedure [facility] Start: 09-24-2023 Insertion of cathete r into peripheral vein [facility] Start: 09-24-2023 Measuring intake and output [facility] Start: 09-24-2023 Oxygen therapy [facility] Start: 09-24-2023 Providing care accor ding to standard [facility] Start: 09-24-2023 Provision of activit y privileges [facility] Start: 09-24-2023 Referral to service [facility] Start: 09-24-2023 [facility] Start: 09-24-2023 Verification routine [facility] Start: 09-24-2023 Admission procedure [facility] Start: 09-21-2023 Procedure [facility] Start: 08-04-2023 Patient referral [facility] Work Phone: Start: 07-31-2023 DIABETES SCREEN DIABETES SCREEN [facility] Start: 07-31-2023 [facility] Start: 06-21-2023 Anes open proc upper ends tibia fibula&/patella ANESTH KNEE AREA SURGERY [facility] Start: 06-21-2023 Arthroplasty patella w/prosthesis REVISE KNEECAP WITH IMPLANT [facility] Start: 06-21-2023 Radiologic examinati on of knee Knee 1 or 2 Views [facility] Start: 06-21-2023 XR Knee 1 or 2 Views [facility] Start: 06-21-2023 Application of ice c ollar, cap or bag [facility] Start: 06-21-2023 Exercises [facility] Start: 06-21-2023 Incentive spirometry [facility] Start: 06-21-2023 Neurovascular assessment [facility] Start: 06-21-2023 Patient discharge [facility] Start: 06-21-2023 Patient education [facility] Start: 06-21-2023 Provision of activit y privileges [facility] Start: 06-21-2023 Recommendation to co ntinue with treatment [facility] Start: 06-21-2023 Referral to service [facility] Start: 06-21-2023 Vital signs measurements [facility] Start: 06-21-2023 Wound care [facility] Start: 06-21-2023 [facility] Start: 03-24-2023 Influenza vaccination Influenza Vacc ine (#1) [facility] Start: 10-15-2022 Patient discharge [facility] Start: 10-11-2022 Following clinical p athway protocol [facility] Start: 10-11-2022 Application of intermittent pneumatic compression device [facility] Start: 10-11-2022 Catheterization of vein [facility] Start: 10-11-2022 Consultation [facility] Start: 10-11-2022 Following clinical p athway protocol [facility] Start: 10-11-2022 Maintenance of drain age tube [facility] Start: 10-11-2022 Measuring intake and output [facility] Start: 10-11-2022 Neurovascular assessment [facility] Start: 10-11-2022 Oxygen therapy [facility] Start: 10-11-2022 Patient education [facility] Start: 10-11-2022 Procedure discontinued [facility] Start: 10-11-2022 Provision of activit y privileges [facility] Start: 10-11-2022 Recommendation to co ntinue with treatment [facility] Start: 10-11-2022 Referral to service [facility] Start: 10-11-2022 Taking patient vital signs [facility] Start: 10-11-2022 Admission procedure [facility] Start: 10-11-2022 [facility] Start: 09-10-2022 Pneumococcal vaccination Pneum ococcal Vaccine [...] Hospital Start: [address] COLONOGRAPHY [facility] Start: 2007 SIGMOIDOSCOPY SIGMOIDOSCOPY [facility] Start: 1981 SHINGRIX VACCINE (1 of 2) BOWER GRIX VACCINE (1 of 2) [facility] Start: 02-08-1980 ANNUAL PCP TEAM ADVERTISING SALES CONSULTANT MARIO DISEASE VISIT ANNUAL PCP TEAM CHRONIC DISEASE VISIT [facility] Start: 02-08-1980 BP CONTROLLED (<130/80) BP CONTROLLE D (<130/80) [facility] Start: 02-08-1980 HIV SCREENING HIV SCREENING [facility] Alanine aminotransfe rase [Enzymatic activity/volume] in Serum or Plasma [facility] Albumin [Mass/volume ] in Serum or Plasma [facility] Albumin [Moles/volum e] in Serum or Plasma [facility] Albumin/Globulin ratio [facility] Alkaline phosphatase [Enzymatic activity/volume] in Serum or Plasma [facility] Anion gap measurement [facility] Aspartate aminotrans ferase [Enzymatic activity/volume] in Serum or Plasma [facility] Beef IgE Ab [Units/v olume] in Serum [facility] Bilirubin measuremen t, urine [facility] Bilirubin, total measurement [facility] BUN/Creatinine ratio [facility] C reactive protein [Mass/volume] in Serum or Plasma [facility] Calcium [Mass/volume ] in Serum or Plasma [facility] Carbon dioxide, tota l [Moles/volume] in Serum or Plasma [facility] Chloride [Moles/volu me] in Serum or Plasma [facility] Chocolate IgE Ab [Units/volume] in Serum [facility] Codfish IgE Ab [Units/volume] in Serum [facility] [place] IgE Ab [Units/v olume] in Serum [facility] Cow milk IgE Ab [Units/volume] in Serum [facility] Creatinine [Moles/vo lume] in Serum or Plasma [facility] Electrophoresis: cofpt-0-ujppivcy [facility] Electrophoresis: nestor ma globulin [facility] Erythrocyte mean corpuscular volume determination [facility] Erythrocyte sediment ation rate [facility] Gastrin [Mass/volume ] in Serum or Plasma [facility] Gliadin peptide IgA Ab [Units/volume] in Serum [facility] Gliadin peptide IgG Ab [Units/volume] in Serum [facility] Globulin measurement [facility] Glucose [Mass/volume ] in Serum or Plasma [facility] Hematocrit [Volume Fraction] of Blood [facility] Hemoglobin [Mass/vol ume] in Blood [facility] Hemoglobin [Presence ] in Urine [facility] IgA [Mass/volume] in Serum or Plasma [facility] IgG [Mass/volume] in Serum or Plasma [facility] IgG subclass 1 [Mass/volume] in Serum [facility] IgG subclass 2 [Mass/volume] in Serum [facility] IgG subclass 3 [Mass/volume] in Serum [facility] IgG subclass 4 [Mass/volume] in Serum [facility] IgM [Mass/volume] in Serum or Plasma [facility] Leukocytes [#/volume ] in Blood [facility] Magnesium [Mass/volu me] in Serum or Plasma [facility] Mean corpuscular hemoglobin concentration determination [facility] Mean corpuscular hemoglobin determination [facility] Measurement of immunoglobulin A in serum specimen [facility] Measurement of keton es in urine using dipstick [facility] Measurement of renal function [facility] Microscopic urinalysis [facility] Neutrophil count [facility] Neutrophil cytoplasm ic Ab.classic [Units/volume] in Serum [facility] Neutrophil percent differential count [facility] Organism count, microscopic method [facility] Ova and parasites identified in Unspecified specimen by Light microscopy [facility] P-ANCA measurement [facility] Patient Education [facility] Work Phone: Patient referral [facility] Work Phone: Peanut IgE Ab [Units/volume] in Serum [facility] pH of Urine [facility] Platelets [#/volume] in Blood [facility] Pork IgE Ab [Units/v olume] in Serum [facility] Potassium [Moles/vol ume] in Serum or Plasma [facility] Procedure [facility] Procedure [facility] Protein electrophore sis panel - Serum or Plasma [facility] Red blood cell count [facility] Red cell distributio n width determination [facility] Slinger IgE Ab [Units/volume] in Serum [facility] Serum inorganic phos phate measurement [facility] Shrimp IgE Ab [Units/volume] in Serum [facility] Sodium [Moles/volume ] in Serum or Plasma [facility] Soybean IgE Ab [Units/volume] in Serum [facility] Specific gravity of Urine [facility] Tissue transglutamin ase IgA Ab [Units/volume] in Serum [facility] Total protein measurement [facility] Tuna IgE Ab [Units/v olume] in Serum [facility] Urea nitrogen [Mass/volume] in Serum or Plasma [facility] Urine dipstick for glucose [facility] Urine dipstick for leukocyte esterase [facility] Urine dipstick for nitrite [facility] Urine dipstick for protein [facility] Urine examination [facility] Urine microscopy: epithelial cells [facility] Urine microscopy: re d cells [facility] Urobilinogen [Presen ce] in Urine [facility] Wheat IgE Ab [Units/volume] in Serum [facility] White blood cell count [facility] Whole Egg IgE Ab [Units/volume] in Serum [facility] End: 06-17-2023 XR FOOT GENERAL 3V AP/LAT/OBL RIGHT XR FOOT GENERAL 3V AP/LAT/OBL RIGHT Radiology Routine Hallux limitus, acquired, unspecified laterality 1 Occurrences starting 05/18/2022 until 06/17/2023 [facility] Work Phone: Comment on above: 1 Occurrences starti ng 05/18/2022 until 06/17/2023 XR FOOT GENERAL 3V AP/LAT/OBL RIGHT XR FOOT GENERAL 3V AP/LAT/OBL RIGHT Radiology Routine Hallux limitus, acquired, unspecified laterality 05/18/2022 5:14 PM EDT [facility] Work Phone: End: 05-26-2023 XR KNEE POST OP 3V AP/LAT/MERCHANT BILATERAL XR KNEE POST OP 3V AP/LAT/MERCHANT BILATERAL Radiology Routine Pain in both knees, unspecified chronicity 1 Occurrences starting 04/27/2022 until 05/26/2023 [facility] Work Phone: Comment on above: 1 Occurrences starti ng 04/27/2022 until 05/26/2023 [facility] Immunizations Immunization Date Immunization Notes Care Provider Saeid majano 10-05-2020 COVID-19 original vaccine, age 12+ yr, monovalent ([employer] - PURPLE TOP) Christian Dunne MD Work [...] Phone: Payers Date Payer Category Payer Unknown [id number] 2024 Medicare [id number] 2021 Medicare [id number] 2021 Private Health Insurance [id number] 2017 Self-pay Private Health [facility] 18 [id number] Unknown [id number] Unknown [id number] Unknown [id number] [id number] 62 Unknown [id number] 2.16.840.1.005914.3.579.2.4 62 Unknown [id number] 2.16.840.1.578474.3.579.2.4 62 Unknown [id number] 2.16.840.1.357514.3.579.2.4 62 Unknown [id number] 2.16.840.1.973979.3.579.2.4 62 Unknown [id number] 2.16.840.1.413967.3.579.2.4 62 Unknown [id number] 2.16.840.1.872798.3.579.2.4 62 Unknown [id number] 2.16.840.1.612053.3.579.2.4 62 Unknown [id number] 2.16.840.1.359808.3.579.2.4 62 Unknown [id number] 2.16.840.1.274438.3.579.2.4 62 Unknown [id number] 2.16.840.1.764184.3.579.2.4 62 Unknown [id number] 2.16.840.1.541943.3.579.2.4 62 Unknown [id number] 2.16.840.1.112410.3.579.2.4 62 Unknown [id number] 2.16.840.1.218277.3.579.2.4 62 Unknown [id number] 2.16.840.1.614546.3.579.2.4 62 Unknown [id number] 2.16.840.1.300568.3.579.2.4 62 Unknown [id number] 2.16.840.1.472528.3.579.2.4 62 Unknown [id number] 2.16.840.1.296637.3.579.2.4 62 Unknown [id number] 2.16.840.1.750009.3.579.2.4 62 Unknown [id number] 2.16.840.1.330135.3.579.2.4 62 Social History Date Type Detail Facility Start: 01-16-2020 End: 07-05-2023 Tobacco smoking status [facility] Unknown if ever smoked [facility] Start: 06-21-2019 Rare [facility] Start: 06-21-2019 None [facility] Start: 06-21-2019 Spouse/ Signif icant Other [facility] Start: 1960 Sex Assigned At Female [facility] Start: 08-15-2018 End: 03-25-2025 Tobacco smoking status NHIS Ex-smoker [facility] End: 07-24-2016 History [...] 01-28-2021 Education 12 [facility] Start: 01-15-2018 Tobacco Comment currently on e-cig [facility] Start: 1960 Sex Assigned At Not on file [facility] Start: 04-11-2022 End: 05-18-2022 Exposure to SARS-CoV-2 (event) Not sure [facility] Start: 05-30-2022 Tobacco use and exposure Smokeless tobacco non-user [facility] Start: 05-30-2022 Alcohol intake Ex-drinker (finding) [facility] Start: 05-30-2022 Alcohol Comment Socially [facility] Start: 06-28-2020 End: 01-28-2021 Social connection and isolation panel [facility] Do you belong to any clubs or organizations such as sikhism groups, unions, fraternal or athletic groups, or [...] a little [facility] (I/We) worried wheth er (my/our) food would run out before (I/we) got money to buy more. Never true [facility] At any time in the p ast 12 months, were you homeless or living in group home [including now]? No [facility] Start: 10-07-2024 End: 11-01-2024 Sex Female (finding) [facility] NEGATED: Highlighted row [facility] NEGATED: Highlighted row Not [facility] Medical Equipment Procedure Code Equipment Code Equipment Origin al Text Equipment Identifier Dates Total knee replacement Orthopaedic cement, non-antimicrobial [id number] FDA Start: 06-21-2023 Total knee replacement ([id number] Polyethylene patella prosthesis [id number] FDA Start: 06-21-2023 Simplex P Bone Cement Radiopaque Full Dose Individual Pack - [id number] Start: 12-07-2010 Ins Tib 3 9mm Kn X3 Cr Trthln - [id number] Start: 12-07-2010 Ins Tib 3 11mm K n X3 Cs Trth[facility] - [id number] Start: 01-21-2014 Comp Pat 10mm 32 mm Asym Trthln - [id number] Start: 12-07-2010 Baseplt Tib Trth ln 3 Prim - [id number] Start: 12-07-2010 23MM PLATE FDA Start: 10-11-2022 STRIP,BONE CANC [id number] FDA Start: 10-11-2022 STRIP,BONE CANC [id number] FDA Start: 10-11-2022 STRIP,BONE CANC [id number] FDA Start: 10-11-2022 SUTURE,LIGA CLIP MED LT200 [...] F3D ALIF FDA Start: 10-11-2022 INFLUX SPARC [phone] FDA Start: 10-11-2022 PATCH,AMNION 2X3CM FDA Start: 10-11-2022 PATCH,AMNION 2X3CM FDA Start: 10-11-2022 SPACER,10MM INTERLAM FDA Star t: 10-11-2022 23MM PLATE FDA Start: 10-11-2022 STRIP,BONE CANC [id number] FDA Start: 10-11-2022 STRIP,BONE CANC [id number] FDA Start: 10-11-2022 STRIP,BONE CANC [id number] FDA Start: 10-11-2022 SUTURE,LIGA CLIP MED LT200 [...] F3D ALIF FDA Start: 10-11-2022 INFLUX SPARC [phone] FDA Start: 10-11-2022 PATCH,AMNION 2X3CM FDA Start: 10-11-2022 PATCH,AMNION 2X3CM FDA Start: 10-11-2022 SPACER,10MM INTERLAM FDA Star t: 10-11-2022 23MM PLATE FDA Start: 10-11-2022 STRIP,BONE CANC [id number] FDA Start: 10-11-2022 STRIP,BONE CANC [id number] FDA Start: 10-11-2022 STRIP,BONE CANC [id number] FDA Start: 10-11-2022 SUTURE,LIGA CLIP MED LT200 [...] F3D ALIF FDA Start: 10-11-2022 INFLUX SPARC [phone] FDA Start: 10-11-2022 PATCH,AMNION 2X3CM FDA Start: 10-11-2022 PATCH,AMNION 2X3CM FDA Start: 10-11-2022 SPACER,10MM INTERLAM FDA Star t: 10-11-2022 23MM PLATE FDA Start: 10-11-2022 STRIP,BONE CANC [id number] FDA Start: 10-11-2022 STRIP,BONE CANC [id number] FDA Start: 10-11-2022 STRIP,BONE CANC [id number] FDA Start: 10-11-2022 SUTURE,LIGA CLIP MED LT200 [...] F3D ALIF FDA Start: 10-11-2022 INFLUX SPARC [phone] FDA Start: 10-11-2022 PATCH,AMNION 2X3CM FDA Start: 10-11-2022 PATCH,AMNION 2X3CM FDA Start: 10-11-2022 SPACER,10MM INTERLAM FDA Star t: 10-11-2022 23MM PLATE FDA Start: 10-11-2022 STRIP,BONE CANC [id number] FDA Start: 10-11-2022 STRIP,BONE CANC [id number] FDA Start: 10-11-2022 STRIP,BONE CANC [id number] FDA Start: 10-11-2022 SUTURE,LIGA CLIP MED LT200 [...] F3D ALIF FDA Start: 10-11-2022 INFLUX SPARC [phone] FDA Start: 10-11-2022 PATCH,AMNION 2X3CM FDA Start: 10-11-2022 PATCH,AMNION 2X3CM FDA Start: 10-11-2022 SPACER,10MM INTERLAM FDA Star t: 10-11-2022 23MM PLATE FDA Start: 10-11-2022 STRIP,BONE CANC [id number] FDA Start: 10-11-2022 STRIP,BONE CANC [id number] FDA Start: 10-11-2022 STRIP,BONE CANC [id number] FDA Start: 10-11-2022 SUTURE,LIGA CLIP MED LT200 [...] F3D ALIF FDA Start: 10-11-2022 INFLUX SPARC [phone] FDA Start: 10-11-2022 PATCH,AMNION 2X3CM FDA Start: 10-11-2022 PATCH,AMNION 2X3CM FDA Start: 10-11-2022 SPACER,10MM INTERLAM FDA Star t: 10-11-2022 23MM PLATE FDA Start: 10-11-2022 STRIP,BONE CANC [id number] FDA Start: 10-11-2022 STRIP,BONE CANC [id number] FDA Start: 10-11-2022 STRIP,BONE CANC [id number] FDA Start: 10-11-2022 SUTURE,LIGA CLIP MED LT200 [...] F3D ALIF FDA Start: 10-11-2022 INFLUX SPARC [phone] FDA Start: 10-11-2022 PATCH,AMNION 2X3CM FDA Start: 10-11-2022 PATCH,AMNION 2X3CM FDA Start: 10-11-2022 SPACER,10MM INTERLAM FDA Star t: 10-11-2022 23MM PLATE FDA Start: 10-11-2022 STRIP,BONE CANC [id number] FDA Start: 10-11-2022 STRIP,BONE CANC [id number] FDA Start: 10-11-2022 STRIP,BONE CANC [id number] FDA Start: 10-11-2022 SUTURE,LIGA CLIP MED LT200 [...] F3D ALIF FDA Start: 10-11-2022 INFLUX SPARC [phone] FDA Start: 10-11-2022 PATCH,AMNION 2X3CM FDA Start: 10-11-2022 PATCH,AMNION 2X3CM FDA Start: 10-11-2022 SPACER,10MM INTERLAM FDA Star t: 10-11-2022 23MM PLATE FDA Start: 10-11-2022 STRIP,BONE CANC [id number] FDA Start: 10-11-2022 STRIP,BONE CANC [id number] FDA Start: 10-11-2022 STRIP,BONE CANC [id number] FDA Start: 10-11-2022 SUTURE,LIGA CLIP MED LT200 [...] F3D ALIF FDA Start: 10-11-2022 INFLUX SPARC [phone] FDA Start: 10-11-2022 PATCH,AMNION 2X3CM FDA Start: 10-11-2022 PATCH,AMNION 2X3CM FDA Start: 10-11-2022 SPACER,10MM INTERLAM FDA Star t: 10-11-2022 23MM PLATE FDA Start: 10-11-2022 STRIP,BONE CANC [id number] FDA Start: 10-11-2022 STRIP,BONE CANC [id number] FDA Start: 10-11-2022 STRIP,BONE CANC [id number] FDA Start: 10-11-2022 SUTURE,LIGA CLIP MED LT200 [...] F3D ALIF FDA Start: 10-11-2022 INFLUX SPARC [phone] FDA Start: 10-11-2022 PATCH,AMNION 2X3CM FDA Start: 10-11-2022 PATCH,AMNION 2X3CM FDA Start: 10-11-2022 SPACER,10MM INTERLAM FDA Star t: 10-11-2022 23MM PLATE FDA Start: 10-11-2022 STRIP,BONE CANC [id number] FDA Start: 10-11-2022 STRIP,BONE CANC [id number] FDA Start: 10-11-2022 STRIP,BONE CANC [id number] FDA Start: 10-11-2022 SUTURE,LIGA CLIP MED LT200 [...] F3D ALIF FDA Start: 10-11-2022 INFLUX SPARC [phone] FDA Start: 10-11-2022 PATCH,AMNION 2X3CM FDA Start: 10-11-2022 PATCH,AMNION 2X3CM FDA Start: 10-11-2022 SPACER,10MM INTERLAM FDA Star t: 10-11-2022 23MM PLATE FDA Start: 10-11-2022 STRIP,BONE CANC [id number] FDA Start: 10-11-2022 STRIP,BONE CANC [id number] FDA Start: 10-11-2022 STRIP,BONE CANC [id number] FDA Start: 10-11-2022 SUTURE,LIGA CLIP MED LT200 FDA Start: 10-11-2022 SUTURE,LIGA CLIP MED LT200 FDA Start: 10-11-2022 SUTURE,LIGA CLIP SM LT-100 FDA Start: 10-11-2022 VARIABLE SCREWS FDA Start: 10-11-2022 VARIABLE SCREWS FDA Start: 10-11-2022 VARIABLE SCREWS FDA Start: 10-11-2022 VARIABLE SCREWS FDA Start: 10-11-2022 AXLE CONSTRUCT FDA Start: 10-11-2022 CLIP,LIGA LG FDA Start: 03-21-2023 DRESSING,SURGICE L 4x8 FDA Start: 10-11-2022 F3D ALIF FDA Start: 10-11-2022 INFLUX SPARC [phone] FDA Start: 10-11-2022 PATCH,AMNION 2X3CM FDA Start: 10-11-2022 PATCH,AMNION 2X3CM FDA Start: 10-11-2022 SPACER,10MM INTERLAM FDA Star t: 10-11-2022 23MM PLATE FDA Start: 10-11-2022 STRIP,BONE CANC [id number] FDA Start: 10-11-2022 STRIP,BONE CANC [id number] FDA Start: 10-11-2022 STRIP,BONE CANC [id number] FDA Start: 10-11-2022 SUTURE,LIGA CLIP MED LT200 [...] F3D ALIF FDA Start: 10-11-2022 INFLUX SPARC [phone] FDA Start: 10-11-2022 PATCH,AMNION 2X3CM FDA Start: 10-11-2022 PATCH,AMNION 2X3CM FDA Start: 10-11-2022 SPACER,10MM INTERLAM FDA Star t: 10-11-2022 23MM PLATE FDA Start: 10-11-2022 STRIP,BONE CANC [id number] FDA Start: 10-11-2022 STRIP,BONE CANC [id number] FDA Start: 10-11-2022 STRIP,BONE CANC [id number] FDA Start: 10-11-2022 SUTURE,LIGA CLIP MED LT200 [...] F3D ALIF FDA Start: 10-11-2022 INFLUX SPARC [phone] FDA Start: 10-11-2022 PATCH,AMNION 2X3CM FDA Start: 10-11-2022 PATCH,AMNION 2X3CM FDA Start: 10-11-2022 SPACER,10MM INTERLAM FDA Star t: 10-11-2022 23MM PLATE FDA Start: 10-11-2022 STRIP,BONE CANC [id number] FDA Start: 10-11-2022 STRIP,BONE CANC [id number] FDA Start: 10-11-2022 STRIP,BONE CANC [id number] FDA Start: 10-11-2022 SUTURE,LIGA CLIP MED LT200 [...] F3D ALIF FDA Start: 10-11-2022 INFLUX SPARC [phone] FDA Start: 10-11-2022 PATCH,AMNION 2X3CM FDA Start: 10-11-2022 PATCH,AMNION 2X3CM FDA Start: 10-11-2022 SPACER,10MM INTERLAM FDA Star t: 10-11-2022 23MM PLATE FDA Start: 10-11-2022 STRIP,BONE CANC [id number] FDA Start: 10-11-2022 STRIP,BONE CANC [id number] FDA Start: 10-11-2022 STRIP,BONE CANC [id number] FDA Start: 10-11-2022 SUTURE,LIGA CLIP MED LT200 [...] F3D ALIF FDA Start: 10-11-2022 INFLUX SPARC [phone] FDA Start: 10-11-2022 PATCH,AMNION 2X3CM FDA Start: 10-11-2022 PATCH,AMNION 2X3CM FDA Start: 10-11-2022 SPACER,10MM INTERLAM FDA Star t: 10-11-2022 23MM PLATE FDA Start: 10-11-2022 STRIP,BONE CANC [id number] FDA Start: 10-11-2022 STRIP,BONE CANC [id number] FDA Start: 10-11-2022 STRIP,BONE CANC [id number] FDA Start: 10-11-2022 SUTURE,LIGA CLIP MED LT200 [...] F3D ALIF FDA Start: 10-11-2022 INFLUX SPARC [phone] FDA Start: 10-11-2022 PATCH,AMNION 2X3CM FDA Start: 10-11-2022 PATCH,AMNION 2X3CM FDA Start: 10-11-2022 SPACER,10MM INTERLAM FDA Star t: 10-11-2022 23MM PLATE FDA Start: 10-11-2022 STRIP,BONE CANC [id number] FDA Start: 10-11-2022 STRIP,BONE CANC [id number] FDA Start: 10-11-2022 STRIP,BONE CANC [id number] FDA Start: 10-11-2022 SUTURE,LIGA CLIP MED LT200 [...] F3D ALIF FDA Start: 10-11-2022 INFLUX SPARC [phone] FDA Start: 10-11-2022 PATCH,AMNION 2X3CM FDA Start: 10-11-2022 PATCH,AMNION 2X3CM FDA Start: 10-11-2022 SPACER,10MM INTERLAM FDA Star t: 10-11-2022 23MM PLATE FDA Start: 10-11-2022 STRIP,BONE CANC [id number] FDA Start: 10-11-2022 STRIP,BONE CANC [id number] FDA Start: 10-11-2022 STRIP,BONE CANC [id number] FDA Start: 10-11-2022 SUTURE,LIGA CLIP MED LT200 [...] F3D ALIF FDA Start: 10-11-2022 INFLUX SPARC [phone] FDA Start: 10-11-2022 PATCH,AMNION 2X3CM FDA Start: 10-11-2022 PATCH,AMNION 2X3CM FDA Start: 10-11-2022 SPACER,10MM INTERLAM FDA Star t: 10-11-2022 23MM PLATE FDA Start: 10-11-2022 STRIP,BONE CANC [id number] FDA Start: 10-11-2022 STRIP,BONE CANC [id number] FDA Start: 10-11-2022 STRIP,BONE CANC [id number] FDA Start: 10-11-2022 SUTURE,LIGA CLIP MED LT200 [...] F3D ALIF FDA Start: 10-11-2022 INFLUX SPARC [phone] FDA Start: 10-11-2022 PATCH,AMNION 2X3CM FDA Start: 10-11-2022 PATCH,AMNION 2X3CM FDA Start: 10-11-2022 SPACER,10MM INTERLAM FDA Star t: 10-11-2022 23MM PLATE FDA Start: 10-11-2022 STRIP,BONE CANC [id number] FDA Start: 10-11-2022 STRIP,BONE CANC [id number] FDA Start: 10-11-2022 STRIP,BONE CANC [id number] FDA Start: 10-11-2022 SUTURE,LIGA CLIP MED LT200 [...] F3D ALIF FDA Start: 10-11-2022 INFLUX SPARC [phone] FDA Start: 10-11-2022 PATCH,AMNION 2X3CM FDA Start: 10-11-2022 PATCH,AMNION 2X3CM FDA Start: 10-11-2022 SPACER,10MM INTERLAM FDA Star t: 10-11-2022 23MM PLATE FDA Start: 10-11-2022 STRIP,BONE CANC [id number] FDA Start: 10-11-2022 STRIP,BONE CANC [id number] FDA Start: 10-11-2022 STRIP,BONE CANC [id number] FDA Start: 10-11-2022 SUTURE,LIGA CLIP MED LT200 [...] F3D ALIF FDA Start: 10-11-2022 INFLUX SPARC [phone] FDA Start: 10-11-2022 PATCH,AMNION 2X3CM FDA Start: 10-11-2022 PATCH,AMNION 2X3CM FDA Start: 10-11-2022 SPACER,10MM INTERLAM FDA Star t: 10-11-2022 23MM PLATE FDA Start: 10-11-2022 STRIP,BONE CANC [id number] FDA Start: 10-11-2022 STRIP,BONE CANC [id number] FDA Start: 10-11-2022 STRIP,BONE CANC [id number] FDA Start: 10-11-2022 SUTURE,LIGA CLIP MED LT200 [...] F3D ALIF FDA Start: 10-11-2022 INFLUX SPARC [phone] FDA Start: 10-11-2022 PATCH,AMNION 2X3CM FDA Start: 10-11-2022 PATCH,AMNION 2X3CM FDA Start: 10-11-2022 SPACER,10MM INTERLAM FDA Star t: 10-11-2022 Goals Date Patient Goal Desired Activity /State Functional Status Date Assessment Result Facility 03-29-2025 Functional status Ambulates [facility] Work Phone: 09-26-2023 Functional status Ambulates;Up ad gina [facility] Work Phone: 09-25-2023 Functional status None [facility] Work Phone: 10-15-2022 Functional status Ambulates;Up ad gina [facility] Work Phone: 10-15-2022 Functional status Assistive Shandra fredy [employer] [facility] Work Phone: Mental Status Date Assessment Result Facility 03-29-2025 Cognitive function Voice/Name [facility] Work Phone: 03-10-2025 Cognitive function Level Of Consciousness Drowsy [facility] Work Phone: 03-10-2025 Cognitive function Voice/Name [facility] Work Phone: 10-07-2024 Cognitive function Voice/Name [facility] Work Phone: 11-14-2023 Cognitive function Touch/Shaking [facility] Work Phone: 09-26-2023 Cognitive function Voice/Name [facility] Work Phone: 06-21-2023 Cognitive function Voice/Name [facility] Work Phone: 10-14-2022 Cognitive function Voice/Name [facility] Work Phone: Clinical Notes 06-13-2016 to 04-17-2025 Note Date & Type Note Facility 04-17-2025 Progress note [facility] 04-17-2025 Progress note Note Date/Time April 17, 2025 3:44pm [facility] [address] [place] [address] OFFICE VISIT Date of Service: 04/17/25 MR#: [id number] Acct: [id number] Name: JUDY REAGAN ANN Rep #: [id number] : [id number] Provider: HI Modi Age/Sex: 65/F [place] [facility] [place]: Signed Intake Vital Signs 03/26/25 13:50 04/17/25 15:06 Height 5 ft 4 in 5 ft 4 in Weight: 163 lb 8 oz BMI 28.0 BP 146/98 H Respiration 18 Pulse 78 Temp 97.7 F L Temp Source Temporal Pulse Oximetry (%) 97 Oxygen Delivery Method room air Intake Visit Reasons: HOSP FU Chief Complaint: hospital follow-up Pallet Rectifier Required: No Accompanied by: Self Is patient in pain?: No Allergies adhesive tape Allergy (Severe, Verified 04/17/25 15:14) blistering bee venom protein (honey bee) Allergy (Verified 04/17/25 15:14) Swelling Medications ?Medication ?Instructions ?Recorded ?Confirmed ?Type venlafaxine 37.5 mg tablet 75 mg PO QHS depression 04/17/25 History pantoprazole 40 mg tablet,delayed 40 mg PO DAILY GERD 08/09/22 04/17/25 History release ramipril 10 mg capsule 10 mg PO BID HEART 08/09/22 04/17/25 History ropinirole 0.25 mg tablet 0.5 mg PO QHS RESTLESS LEGS 08/09/22 04/17/25 History furosemide 20 mg tablet 20 mg PO DAILY 01/12/2303/25 History acidophilus 25 million 2 tab PO BID #0 tabs 4 04/17/25 Rx cell-pectin, citrus 100 mg tablet amlodipine 5 mg tablet (Norvasc) 5 mg PO QHS 11/09/23 04/17/25 History dicyclomine 20 mg tablet 20 mg PO TID PRN abdominal p ain 10/04/24 04/17/25 History duloxetine 30 mg capsule,delayed 30 mg PO DAILY #30 ca ps 11/18/24 04/17/25 Rx release tizanidine 4 mg tablet 4 mg PO BID PRN PRN muscle s pasm 03/25/25 04/17/25 History ustekinumab 90 mg/mL subcutaneous 90 mg subcut Q8W #1 mL 03/26/25 04/17/25 Rx syringe (Stelara) sennosides 8.6 mg-docusate sodium 1 tab PO BID #60 tab s 03/29/25 04/17/25 Rx 50 mg tablet (Stimulant Laxative Plus) sodium sul 1.479 gram-potas ch See Rx Instructions PO .COMPLEX 04/17/25 04/17/25 Rx 0.188 gram-magnes sul 0.225 gram #28 tabs tablet (Sutab) PFSH Medical History Pain History of Crohn's disease [...] times per week HPI HPI Chief Complaint: hospital follow-up Details: CT 03/25/2025 1. Acute uncomplicated sigmoid diverticulitis. 2. Diffuse hepatic steatosis. GI CONSULT 03/26/2025 65y/o female with reported history of Crohn's disease managed with Ustekinumab since 02/2024 (recent level 4, no antibodies) who has a history of recurrent diverticulitis with 4 episodes in a 12 month period prior to biologic initiation. She now presents with acute onset severe LLQ pain beginning 03/22/2025, worsening despite self initiation of cipro and metronidazole. With CTconfirming mild sigmoid diverticulitis. She describes the pain as similar in character to prior diverticulitis episodes, but more severe with associated bloating, and abdominal distention. No associated nausea, vomiting, or change in bowel habits. Denies dysuria; UA negative. Vitals: Low-grade temp 99.9. She was admitted due to uncontrolled pain despite multiple doses of IV analgesia in the ED. Initiated on IV piperacillin-tazobactam. Pain remains only partially responsive to IV morphine and oral oxycodone. She is tolerating oral intake. Last prior diverticulitis episode July 2024, treated with Augmentin. Recommend continued IV Zosyn for acute diverticulitis. She has shown improvement in leukocytosis (17.4 -> 12.6). Monitor vitals, abdominal pain, WBC daily. Recommend soft diet as tolerated. Avoid NSAIDS given history of Crohn's. Consider surgical consultation for worsening pain, signs of peritonitis, or failure to improve with IV antibiotics. DISCHARGE 03/29/2025 Patient is a 65-year-old lady who was admitted with abdominal pain CT demonstrated acute uncomplicated sigmoid diverticulitis admitted to regular nursing floor for further management 1. Acute uncomplicated diverticulitis - CT of the abdomen read as acute uncomplicated sigmoid diverticulitis admitted to regular nursing floor started on Zosyn in addition to pain management IV fluids. Started on clear liquid diet advance as tolerated 03/27/2025; patient seen patient abdominal pain persist to use to rule out bowel obstruction ? 03/28/2025;Abdominal x-rays obtained the day prior demonstrated moderate amount of fecal material in the colon patient was placed on suppository as well as MiraLAX with good effect. Still complains of abdominal cramps and appears bloated.. Patient WBC count trending ? 03/29/2025 patient to be discharged home HISTORY OF CROHN'S She was last seen in the GI office 03/18/[address] Godwin - was feeling well, denied any GI symptoms of concern, intermittent diarrhea but felt this was diet related 09/21/2023 stool culture negative 09/24/2023 Chromogranin A WNL IgG subglasses WNL ANCA negative Celiac serologies negative ALCA WNL gASGA 54 (0-50) AMCA WNL ACCA WNL Gastrin WNL COLON 09/25/2023 focal mucosal ulceration at the splenic flexure - minimal non-specific chronic inflammation duodenum - no biopsies of TI or left colon performed Multiple small and large-mouthed diverticula were found in the recto-sigmoid colon, sigmoid colon, descending colon and splenic flexure. Localized severe inflammation characterized by erythema, friability and granularity was found in the sigmoid colon, in the descending colon and at the splenic flexure. - she was started on methotrexate 12.5mg and folic acid - methotrexate did not help her crohn's Capsule ENDO 11/13/2023 benign appearing duodenal stricture, areas of enteritis and ulceration seen throughout the SB. Started on Mesalamine and Budesonide. EGD 11/14/2023 - no pathological diagnosis of duodenal biopsy benign-appearing, intrinsic moderate stenosis was found in the first portion of the duodenum and was traversed after dilation. A TTS dilator was passed through the scope. Dilation with a 15 mm pyloric balloon dilator was performed. The dilation site was examined and showed moderate improvement in luminal narrowing. 03/08/2024 Stelara loading dose 03/18/2025 CRP 4.67 this is down from 6.21 on 10/28/2024 CRP was 12.9 on 09/24/2023 and decreased to 3.04 05/03/2024 Ustekinumab 03/18/2024 Level 4, no Ab - (this is not a true trough - last dosed 02/02/2025 - was due 03/30/2025) 10/28/2024 Level 4.2, no Ab No fecal calprotectin or MRE on record. There is no histological evidence of Crohn's on record. - reports at discharge her pain level was about 5/10 - still not back to 100% - c/o psoriatic arthritis is flaring - stelara was due 03/30/2025, she was advised to hold for 4 weeks and plans to take 04/27/2025 - denies any fevers - abd pain today 2/10, pain is not constant - has some lower abdominal tenderness - reports stools are small, this is not her normal - feels she has to continue taking stool softener - she is eating a normal diet, avoiding red meat and high fiber foods - denies any bleeding - denies any skin rashes/lesions STELARA: - last dosed 02/02/2025 - was due 03/30/2025 ROS Const Constitutional: Positive for fatigue; No fever(s) or weight change ENT ENT: No difficulty swallowing Gastro GI: Positive for abdominal pain, bloating, constipation and diarrhea; No belching, change in bowel habits, change in stool character, coffee ground emesis, cramping, heartburn, difficulty swallowing, feeling full early, excessive flatus, incontinent of stools, Vomiting blood/hematemesis, Blood in stool, loose stools, Black,tarry stools, nausea/dyspepsia, pain with swallowing,vomiting or other Musc Musculoskeletal: Positive for joint pain, back pain, joint swelling, stiffness and Arthritis Skin Skin: No yellowing of the eye or itchy eyes Psych Psychiatric: No anxiety and No depression Endo Endocrine: Positive for fatigue; No weight change Aller/Imm Allergy/Immunologic: No itchy eyes Renato/Lymp Hematologic/Lymphatic: Positive for easy bruising; No easy bleeding Assessment and Plan Assessment and Plan (1) Acute diverticulitis: Status: Acute Medications: New sod sulf-pot chloride-mag sulf 1.479-0.188- 0.225 gram (Sutab) Take orally take as directed for split dose bowel prep. Do not follow instructions on box. 28 tabs 0RF Plan 65-year-old female presents for follow-up post admission for acute uncomplicatedsigmoid diverticulitis. She was admitted for pain management and started on IV antibiotics. She was discharged on 03/29/2025 and completed a 10-day course of Augmentin. Labs reveal resolving leukocytosis. She denies any fevers and reports remarkable improvement in abdominal pain. She is continuing to experience mild constipation and taking senna daily. She complains of psoriaticarthritis flare with holding Stelara. Her last doses of Stelara was 02/02/2025 and she was due for Stelara on 03/30/2025. I have reviewed with Dr. Orozco resume Stelara now. We will plan for colonoscopy in 8 weeks. Patient Instructions: Colonoscopy 8 weeks - SuTab If she has recurrent pain, I recommend CT to confirm diverticulitis and surgicalreferral if confirmed I reviewed with Dr. Friend and okay to resume Stelara from a GI standpoint; c/o psoriatic arthritis flare Continue Senna, increase to twice daily if needed for constipation Coding Level of Care Code Off vis,est,level 4 Diagnoses Acute diverticulitis K57.92 04/17/25 1626 <Electronically signed by Emmy DO> Date _ Emmy DO Cosigner Signature: Date (if applicable) CC: ~ [place] [employer] [facility] Work Phone: 1(542) 337-437709-06-2025 Discharge summary Author Jorge L Jin [facility] Note Date/Time March 29, 2025 8:29am [facility] Medical Records Department [address] [place] [address] Discharge Summary 03/29/2518 MR#: [id number] Acct: [id number] Name: JUDY REAGAN ANN Rep #:[id number] : 1960 65 From: Jorge L Jin MD PCP: Dr. Hernandez Mosley MD Status:ADM I N Location: [place] [address] Providers Date of Admission: 03/25/25 Date of Discharge: 03/29/25 Primary Care Physician: Dr. Hernandez Mosley MD Consultations 03/26/25 09:27 Consult: Gastroenterology Routine Consulting Provider: [place] [facility] Reason for Consult: abdominal pain EMERGENT Consult: No MD Notified: Yes Date Notified: 03/26/25 Time Notified: 09:28 Method of Notification: Text Reason For Visit: ACUTE UNCOMPLICATED DIVERTICULITIS Diagnosis Discharge Diagnosis (1) Acute diverticulitis: Status: Acute Code(s): K57.92 - Diverticulitis of intestine, part unspecified, without perforation or abscess without bleeding Plan Patient is a 65-year-old lady who was admitted with abdominal pain CT demonstrated acute uncomplicated sigmoid diverticulitis admitted to regular nursing floor for further management 1. Acute uncomplicated diverticulitis - CT of the abdomen read as acute uncomplicated sigmoid diverticulitis admitted to regular nursing floor started on Zosyn in addition to pain management IV fluids. Started on clear liquid diet advance as tolerated 03/27/2025; patient seen patient abdominal pain persist to use to rule out bowel obstruction ? 03/28/2025;Abdominal x-rays obtained the day prior demonstrated moderate amount of fecal material in the colon patient was placed on suppository as well as MiraLAX with good effect. Still complains of abdominal cramps and appears bloated.. Patient WBC count trending ? 03/29/2025 patient to be discharged home 2. Hypertension ? Blood pressure controlled, home medications continued with dose adjustment as needed 3. Depression with anxiety ? Patient is on venlafaxine did come to 4. Restless leg syndrome Patient is on ropinirole 5. GERD ? Patient is on PPI 6. Crohn's disease - Does have history of Crohn's, is on Stelara and follows with Dr. Godwin. Consult was placed to him 7. Psoriatic arthritis ? Patient is on Stelara 8. DVT prophylaxis ? Bilateral SCDs Time spent in the patient's overall evaluation,decision-making process, review of diagnostic data, adjustment of management, discussion with other providers, nursing nursing and ancillary staff involved in patient's care documentation, 36 Minutes Medications at Discharge Home Medications venlafaxine 37.5 mg tablet 75 mg PO QHS depression 03/20/16 pantoprazole 40 mg tablet,delayed release 40 mg PO DAILY GERD 08/09/22 ramipril 10 mg capsule 10 mg PO BID HEART 08/09/22 ropinirole 0.25 mg tablet 0.5 mg PO QHS RESTLESS LEGS 08/09/22 furosemide 20 mg tablet 20 mg PO DAILY 01/12/23 acidophilus 25 million cell-pectin, citrus 100 mg tablet 2 tab PO BID #0 tabs 09/26/23 amlodipine 5 mg tablet (Norvasc) 5 mg PO QHS 11/09/23 dicyclomine 20 mg tablet 20 mg PO TID PRN abdominal pain 10/04/24 duloxetine 30 mg capsule,delayed release 30 mg PO DAILY #30 caps 11/18/24 tizanidine 4 mg tablet 4 mg PO BID PRN PRN muscle spasm 03/25/25 ustekinumab 90 mg/mL subcutaneous syringe (Stelara) 90 mg subcut Q8W #1 mL 03/26/25 amoxicillin 875 mg-potassium clavulanate 125 mg tablet 1 tab PO Q12H #20 tabs 03/29/25 oxycodone 5 mg tablet 5 mg PO Q4H PRN PRN Pain Score 4-10 5 days #20 tabs 03/29/25 sennosides 8.6 mg-docusate sodium 50 mg tablet (Stimulant Laxative Plus) 1 tab PO BID #60 tabs 03/29/25 Physical Exam Narrative GENERAL: cooperative HEENT: Atraumatic; normocephalic EYES; Anicteric, Normal Conjunctiva NECK; supple, normal thyroid, RESPIRATORY: Diminished to auscultation CARDIOVASCULAR: Regular S1 S2, GI: soft, normoactive bowel sounds, distended tympanitic to percussion : No Renal angle tenderness; EXTREMITIES: No edema, no clubbing, MUSCULOSKELETAL: no muscle wasting NEURO: Awake; no lateralizing signs. SKIN: No Rash PSYCH; Flat affect Weight / BMI Weight Weight: 73.21 kg Body Mass Index (BMI) 27.7 ABG / Lab / Microbiology Data 03/29/25 06:02 03/29/25 06:02 Laboratory: Laboratory Results - last 24 hr 03/29/25 06:02: WBC 6.8, RBC 4.10 L, Hgb 12.8, Hct 39.0, MCV 95.1, MCH 31.2, MCHC 32.8, RDW Std Deviation 43.5, RDW Coeff of Caity 12.4, Plt Count 289, MPV 9.9, Immature Gran % (Auto) 0.300, Neut % (Auto) 58.9, Lymph % (Auto) 24.7, [facility]% (Auto) 12.0 H, Eos % (Auto) 3.5, Baso % (Auto) 0.6, Absolute Neuts (auto) 4.0,Absolute Lymphs (auto) 1.67, Nucleated RBC % 0, Sodium 139, Potassium 4.3, Chloride 104, Carbon Dioxide 22.7, Anion Gap 12, BUN 12, Creatinine 0.67 L, Estim Creat Clear Calc 84.26, Est GFR (MDRD) Non-Af 98, BUN/Creatinine Ratio 17.2, Glucose 94, Calcium 9.4 D/C Instructions Discharge Activity: Return to Normal Activity Call your doctor if you observe: Fever of 101 or Higher, Shortness of breath, Fainting spells and Chest pain DC O2, CPAP, BIPAP Needs Home O2 Discharge instructions: No Meaningful Use Info Meaningful Use Meaningful Use Diagnoses (Choose all that apply): None applicable Discharge Plan Admission Admit Date/Time: 03/25/25 18:40 Attending Provider: Jorge L Jin Primary Care Provider: Hernandez Mosley Chi Consulting Providers: Jennifer Dunne; Sherif Benson; Stanley Godwin; Amber Delgado; Emmy Modi; Apple Snow Discharge Orders/Prescriptions Prescriptions: New oxycodone 5 mg Tablet 5 mg PO Q4H PRN PRN (Reason: Pain Score 4-10) 5 Days Qty: 20 0RF sennosides-docusate sodium [Stimulant Laxative Plus] 8.6-50 mg Tablet 1 tab PO BID Qty: 60 0RF amoxicillin-pot clavulanate 875-125 mg tablet 1 tab PO Q12H Qty: 20 0RF Continued furosemide 20 mg tablet 20 mg PO DAILY venlafaxine 37.5 MG tablet 75 mg PO QHS Patient Comments: mood ropinirole 0.25 mg tablet 0.5 mg PO QHS Patient Comments: TAKE 2 TABLETS BY MOUTH ONCE DAILY AT BEDTIME FOR 90 DAYS pantoprazole 40 MG tablet,delayed release (DR/EC) 40 mg PO DAILY Patient Comments: acid reflux ramipril 10 MG capsule 10 mg PO BID amlodipine [Norvasc] 5 mg tablet 5 mg PO QHS acidophilus-pectin, citrus 25 million cell -100 mg Tablet 2 tab PO BID Qty: 0 0RF Rx Instructions: [id number]. Probiotic. At least for 2 week. dicyclomine 20 mg tablet 20 mg PO TID PRN (Reason: abdominal pain) tizanidine 4 mg tablet 4 mg PO BID PRN PRN (Reason: muscle spasm) duloxetine 30 mg capsule,delayed release(DR/EC) 30 mg PO DAILY Qty: 30 2RF Stelara 90 mg/mL syringe 90 mg subcut Q8W Qty: 1 6RF Rx Instructions: ICD 10- K50.90 Crohn's Disease Discontinued tramadol 50 mg tablet 50 - 100 mg PO Q8H PRN (Reason: pain) Qty: 10 0RF Referrals / Follow Up: Stanley Godwin DO [Med Staff - Active Staff] - Within 2 Weeks Hernandez Mosley Chi, MD [Primary Care Provider] - Within 2 Weeks Disposition Disposition (needs filled in before D/C Order can be placed): Home, Self Care Charges/Coding Visit Charges Inpatient E&M: 33222 Disch Hosp >30min 03/29/25 0829 <Electronically signed by Jorge L Jin MD> Cosigner Signature (if applicable): CC: Dr. Jorge L Jin MD; Dr. Hernandez Mosley MD~ Signed [facility] Work Phone: 1(851) 379-558609-06-2025 Progress note Author Jorge L Jin [facility] Note Date/Time March 29, 2025 8:18am [facility] Medical Records Department [address] [place] [address] Progress Note - Hospitalist 03/29/25716 MR#: [id number] Acct: [id number] Name: JUDY REAGAN Rep #:[id number] : 1960 65 From: Jorge L Jin MD PCP: Dr. Hernandez Mosley MD Status:ADM I N Location: [place] [address] Reason for Visit Chief Complaint: Lower abdominal pain Subjective Subjective Patient seen symptoms somewhat improved. Plan is for patient to be discharged home with oral antibiotics and pain meds with Follow-up with GI as outpatient Objective Data Objective Data Vital Signs: Vital Signs Temp Pulse Resp BP Pulse Ox O2 Del Method 97.9 F 65 18 149/93 H 97 Room Air 03/29/25 03:20 03/29/25 03:20 03/29/25 03:20 03/29/25 03:20 03/29/25 03:20 03/29/25 03:20 Oxygen Delivery Method Room Air Weight: 73.21 kg Body Mass Index (BMI) 27.7 Intake & Output: Intake and Output for Last 24 Hours 03/27/25 03/28/25 03/29/25 23:59 23:59 23:59 Intake Total 150.00 / 150.00 450 / 450 350 / 350 Balance 150.00 / 150.00 450 / 450 350 / 350 Lab / Micro Data 03/29/25 06:02 03/29/25 06:02 Labs: Laboratory Results - last 24 hr 03/28/25 05:55: Sodium 140, Potassium 4.5, Chloride 105, Carbon Dioxide 25.7, Anion Gap 10, BUN 9, Creatinine 0.60 L, Estim Creat Clear Calc 94.09, Est GFR (MDRD) Non-Af 101, BUN/Creatinine Ratio 15.0, Glucose 102 H, Calcium 9.3 03/29/25 06:02: WBC 6.8, RBC 4.10 L, Hgb 12.8, Hct 39.0, MCV 95.1, MCH 31.2, MCHC 32.8, RDW Std Deviation 43.5, RDW Coeff of Caity 12.4, Plt Count 289, MPV 9.9, Immature Gran % (Auto) 0.300, Neut % (Auto) 58.9, Lymph % (Auto) 24.7, [facility]% (Auto) 12.0 H, Eos % (Auto) 3.5, Baso % (Auto) 0.6, Absolute Neuts (auto) 4.0,Absolute Lymphs (auto) 1.67, Nucleated RBC % 0 Physical Exam Narrative GENERAL: cooperative HEENT: Atraumatic; normocephalic EYES; Anicteric, Normal Conjunctiva NECK; supple, normal thyroid, RESPIRATORY: Diminished to auscultation CARDIOVASCULAR: Regular S1 S2, GI: soft, normoactive bowel sounds, distended tympanitic to percussion : No Renal angle tenderness; EXTREMITIES: No edema, no clubbing, MUSCULOSKELETAL: no muscle wasting NEURO: Awake; no lateralizing signs. SKIN: No Rash PSYCH; Flat affect Assessment & Plan Assessment/Plan (1) Acute diverticulitis: PLAN: Plan Patient is a 65-year-old lady who was admitted with abdominal pain CT demonstrated acute uncomplicated sigmoid diverticulitis admitted to regular nursing floor for further management 1. Acute uncomplicated diverticulitis - CT of the abdomen read as acute uncomplicated sigmoid diverticulitis admitted to regular nursing floor started on Zosyn in addition to pain management IV fluids. Started on clear liquid diet advance as tolerated 03/27/2025; patient seen patient abdominal pain persist to use to rule out bowel obstruction ? 03/28/2025;Abdominal x-rays obtained the day prior demonstrated moderate amount of fecal material in the colon patient was placed on suppository as well as MiraLAX with good effect. Still complains of abdominal cramps and appears bloated.. Patient WBC count trending ? 03/29/2025 patient to be discharged home 2. Hypertension ? Blood pressure controlled, home medications continued with dose adjustment as needed 3. Depression with anxiety ? Patient is on venlafaxine did come to 4. Restless leg syndrome Patient is on ropinirole 5. GERD ? Patient is on PPI 6. Crohn's disease - Does have history of Crohn's, is on Stelara and follows with Dr. Godwin. Consult was placed to him 7. Psoriatic arthritis ? Patient is on Stelara 8. DVT prophylaxis ? Bilateral SCDs Time spent in the patient's overall evaluation,decision-making process, review of diagnostic data, adjustment of management, discussion with other providers, nursing nursing and ancillary staff involved in patient's care documentation, 36 Minutes 03/29/25817 <Electronically signed by Jorge L Jin MD> Cosigner Signature (if applicable): CC: ~ Signed [facility] Work Phone: 1([phone]) 143-843309-06-2025 Discharge summary [facility] Medical Records Department [address] [place] [address] Discharge Summary 03/29/25817 MR#: [id number] Acct: [id number] Name: JUDY REAGAN Rep #:[id number] : 1960 65 From: Jorge L Jin MD PCP: Dr. Hernandez Mosley MD Status:ADM I N Location: [place] [address] Providers Date of Admission: 03/25/25 Date of Discharge: 03/29/25 Primary Care Physician: Dr. Hernandez Mosley MD Consultations 03/26/25 09:27 Consult: Gastroenterology Routine Consulting Provider: [place] [facility] Reason for Consult: abdominal pain EMERGENT Consult: No MD Notified: Yes Date Notified: 03/26/25 Time Notified: 09:28 Method of Notification: Text Reason For Visit: ACUTE UNCOMPLICATED DIVERTICULITIS Diagnosis Discharge Diagnosis (1) Acute diverticulitis: Status: Acute Code(s): K57.92 - Diverticulitis of intestine, part unspecified, without perforation or abscess without bleeding Plan Patient is a 65-year-old lady who was admitted with abdominal pain CT demonstrated acute uncomplicated sigmoid diverticulitis admitted to regular nursing floor for further management 1. Acute uncomplicated diverticulitis - CT of the abdomen read as acute uncomplicated sigmoid diverticulitis admitted to regular nursing floor started on Zosyn in addition to pain management IV fluids. Started on clear liquid diet advance as tolerated 03/27/2025; patient seen patient abdominal pain persist to use to rule out bowel obstruction ? 03/28/2025;Abdominal x-rays obtained the day prior demonstrated moderate amount of fecal material in the colon patient was placed on suppository as well as MiraLAX with good effect. Still complains of abdominal cramps and appears bloated.. Patient WBC count trending ? 03/29/2025 patient to be discharged home 2. Hypertension ? Blood pressure controlled, home medications continued with dose adjustment as needed 3. Depression with anxiety ? Patient is on venlafaxine did come to 4. Restless leg syndrome Patient is on ropinirole 5. GERD ? Patient is on PPI 6. Crohn's disease - Does have history of Crohn's, is on Stelara and follows with Dr. Godwin. Consult was placed to him 7. Psoriatic arthritis ? Patient is on Stelara 8. DVT prophylaxis ? Bilateral SCDs Time spent in the patient's overall evaluation,decision-making process, review of diagnostic data, adjustment of management, discussion with other providers, nursing nursing and ancillary staff involved in patient's care documentation, 36 Minutes Medications at Discharge Home Medications venlafaxine 37.5 mg tablet 75 mg PO QHS depression 03/20/16 pantoprazole 40 mg tablet,delayed release 40 mg PO DAILY GERD 08/09/22 ramipril 10 mg capsule 10 mg PO BID HEART 08/09/22 ropinirole 0.25 mg tablet 0.5 mg PO QHS RESTLESS LEGS 08/09/22 furosemide 20 mg tablet 20 mg PO DAILY 01/12/23 acidophilus 25 million cell-pectin, citrus 100 mg tablet 2 tab PO BID #0 tabs 09/26/23 amlodipine 5 mg tablet (Norvasc) 5 mg PO QHS 11/09/23 dicyclomine 20 mg tablet 20 mg PO TID PRN abdominal pain 10/04/24 duloxetine 30 mg capsule,delayed release 30 mg PO DAILY #30 caps 11/18/24 tizanidine 4 mg tablet 4 mg PO BID PRN PRN muscle spasm 03/25/25 ustekinumab 90 mg/mL subcutaneous syringe (Stelara) 90 mg subcut Q8W #1 mL 03/26/25 amoxicillin 875 mg-potassium clavulanate 125 mg tablet 1 tab PO Q12H #20 tabs 03/29/25 oxycodone 5 mg tablet 5 mg PO Q4H PRN PRN Pain Score 4-10 5 days #20 tabs 03/29/25 sennosides 8.6 mg-docusate sodium 50 mg tablet (Stimulant Laxative Plus) 1 tab PO BID #60 tabs 03/29/25 Physical Exam Narrative GENERAL: cooperative HEENT: Atraumatic; normocephalic EYES; Anicteric, Normal Conjunctiva NECK; supple, normal thyroid, RESPIRATORY: Diminished to auscultation CARDIOVASCULAR: Regular S1 S2, GI: soft, normoactive bowel sounds, distended tympanitic to percussion : No Renal angle tenderness; EXTREMITIES: No edema, no clubbing, MUSCULOSKELETAL: no muscle wasting NEURO: Awake; no lateralizing signs. SKIN: No Rash PSYCH; Flat affect Weight / BMI Weight Weight: 73.21 kg Body Mass Index (BMI) 27.7 ABG / Lab / Microbiology Data 03/29/25 06:02 03/29/25 06:02 Laboratory: Laboratory Results - last 24 hr 03/29/25 06:02: WBC 6.8, RBC 4.10 L, Hgb 12.8, Hct 39.0, MCV 95.1, MCH 31.2, MCHC 32.8, RDW Std Deviation 43.5, RDW Coeff of Caity 12.4, Plt Count 289, MPV 9.9, Immature Gran % (Auto) 0.300, Neut % (Auto) 58.9, Lymph % (Auto) 24.7, [facility]% (Auto) 12.0 H, Eos % (Auto) 3.5, Baso % (Auto) 0.6, Absolute Neuts (auto) 4.0,Absolute Lymphs (auto) 1.67, Nucleated RBC % 0, Sodium 139, Potassium 4.3, Chloride 104, Carbon Dioxide 22.7, Anion Gap 12, BUN 12, Creatinine 0.67 L, Estim Creat Clear Calc 84.26, Est GFR (MDRD) Non-Af 98, BUN/Creatinine Ratio 17.2, Glucose 94, Calcium 9.4 D/C Instructions Discharge Activity: Return to Normal Activity Call your doctor if you observe: Fever of 101 or Higher, Shortness of breath, Fainting spells and Chest pain DC O2, CPAP, BIPAP Needs Home O2 Discharge instructions: No Meaningful Use Info Meaningful Use Meaningful Use Diagnoses (Choose all that apply): None applicable Discharge Plan Admission Admit Date/Time: 03/25/25 18:40 Attending Provider: Jorge L Jin Primary Care Provider: Hernandez Mosley Chi Consulting Providers: Jennifer Dunne; Sherif Benson; Stanley Godwin; Amber Delgado; Emmy Modi;Apple Snow Discharge Orders/Prescriptions Prescriptions: New oxycodone 5 mg Tablet 5 mg PO Q4H PRN PRN (Reason: Pain Score 4-10) 5 Days Qty: 20 0RF sennosides-docusate sodium [Stimulant Laxative Plus] 8.6-50 mg Tablet 1 tab PO BID Qty: 60 0RF amoxicillin-pot clavulanate 875-125 mg tablet 1 tab PO Q12H Qty: 20 0RF Continued furosemide 20 mg tablet 20 mg PO DAILY venlafaxine 37.5 MG tablet 75 mg PO QHS Patient Comments: mood ropinirole 0.25 mg tablet 0.5 mg PO QHS Patient Comments: TAKE 2 TABLETS BY MOUTH ONCE DAILY AT BEDTIME FOR 90 DAYS pantoprazole 40 MG tablet,delayed release (DR/EC) 40 mg PO DAILY Patient Comments: acid reflux ramipril 10 MG capsule 10 mg PO BID amlodipine [Norvasc] 5 mg tablet 5 mg PO QHS acidophilus-pectin, citrus 25 million cell -100 mg Tablet 2 tab PO BID Qty: 0 0RF Rx Instructions: Idnz-jzb-erskuyh. Probiotic. At least for 2 week. dicyclomine 20 mg tablet 20 mg PO TID PRN (Reason: abdominal pain) tizanidine 4 mg tablet 4 mg PO BID PRN PRN (Reason: muscle spasm) duloxetine 30 mg capsule,delayed release(DR/EC) 30 mg PO DAILY Qty: 30 2RF Stelara 90 mg/mL syringe 90 mg subcut Q8W Qty: 1 6RF Rx Instructions: ICD 10- K50.90 Crohn's Disease Discontinued tramadol 50 mg tablet 50 - 100 mg PO Q8H PRN (Reason: pain) Qty: 10 0RF Referrals / Follow Up: Stanley Godwin DO [Med Staff - Active Staff] - Within 2 Weeks Hernandez Mosley Chi, MD [Primary Care Provider] - Within 2 Weeks Disposition Disposition (needs filled in before D/C Order can be placed): Home, Self Care Charges/Coding Visit Charges Inpatient E&M: 36883 Disch Hosp >30min 03/29/25 0829 Cosigner Signature (if applicable): CC: Dr. Jorge L Jin MD; Dr. Hernandez Mosley MD~ Signed [facility]09-06-2025 [facility] Medical Records Department [address] [place] [address] Discharge Summary 03/29/25817 MR#: [id number] Acct: [id number] Name: JUDY REAGAN Rep #: [id number] : 1960 65 From: Jorge L Jin MD PCP: Dr. Hernandez Mosley MD Status:ADM IN Location: [place] [address]1 Providers Date of Admission: 03/25/25 Date of Discharge: 03/29/25 Primary Care Physician: Dr. Hernandez Mosley MD Consultations 03/26/25 09:27 Consult: Gastroenterology Routine Consulting Provider: [facility] Reason for Consult: abdominal pain EMERGENT Consult: No MD Notified: Yes Date Notified: 03/26/25 Time Notified: 09:28 Method of Notification: Text Reason For Visit: ACUTE UNCOMPLICATED DIVERTICULITIS Diagnosis Discharge Diagnosis (1) Acute diverticulitis: Status: Acute Code(s): K57.92 - Diverticulitis of intestine, part unspecified, without perforation or abscess without bleeding Plan Patient is a 65-year-old lady who was admitted with abdominal pain CT demonstrated acute uncomplicated sigmoid diverticulitis admitted to regular nursing floor for further management 1. Acute uncomplicated diverticulitis - CT of the abdomen read as acute uncomplicated sigmoid diverticulitis admitted to regular nursing floor started on Zosyn in addition to pain management IV fluids. Started on clear liquid diet advance as tolerated 03/27/2025; patient seen patient abdominal pain persist to use to rule out bowel obstruction ??? 03/28/2025;Abdominal x-rays obtained the day prior demonstrated moderate amount of fecal materialin the colon patient was placed on suppository as well as MiraLAX with good effect. Still complains of abdominal cramps and appears bloated.. Patient WBC count trending ??? 03/29/2025 patient to be discharged home 2. Hypertension ??? Blood pressure controlled, home medications continued with dose adjustment as needed 3. Depression with anxiety ??? Patient is on venlafaxine did come to 4. Restless leg syndrome Patient is on ropinirole 5. GERD ??? Patient is on PPI 6. Crohn's disease - Does have history of Crohn's, is on Stelara and follows with Dr. Godwin. Consult was placed to him 7. Psoriatic arthritis ??? Patient is on Stelara 8. DVT prophylaxis ??? Bilateral SCDs Time spent in the patient's overall evaluation,decision-making process, review of diagnostic data, adjustment of management, discussion with other providers, nursing nursing and ancillary staff involved in patient's care documentation, 36 Minutes Medications at Discharge Home Medications venlafaxine 37.5 mg tablet 75 mg PO QHS depression 03/20/16 pantoprazole 40 mg tablet,delayed release 40 mg PO DAILY GERD 08/09/22 ramipril 10 mg capsule 10 mg PO BID HEART 08/09/22 ropinirole 0.25 mg tablet 0.5 mg PO QHS RESTLESS LEGS 08/09/22 furosemide 20 mg tablet 20 mg PO DAILY 01/12/23 acidophilus 25 million cell-pectin, citrus 100 mg tablet 2 tab PO BID #0 tabs 09/26/23 amlodipine 5 mg tablet (Norvasc) 5 mg PO QHS 11/09/23 dicyclomine 20 mg tablet 20 mg PO TID PRN abdominal pain 10/04/24 duloxetine 30 mg capsule,delayed release 30 mg PO DAILY #30 caps 11/18/24 tizanidine 4 mg tablet 4 mg PO BID PRN PRN muscle spasm 03/25/25 ustekinumab 90 mg/mL subcutaneous syringe (Stelara) 90 mg subcut Q8W #1 mL 03/26/25 amoxicillin 875 mg-potassium clavulanate 125 mg tablet 1 tab PO Q12H #20 tabs 03/29/25 oxycodone 5 mg tablet 5 mg PO Q4H PRN PRN Pain Score 4-10 5 days #20 tabs 03/29/25 sennosides 8.6 mg-docusate sodium 50 mg tablet (Stimulant Laxative Plus) 1 tab PO BID #60 tabs 03/29/25 Physical Exam Narrative GENERAL: cooperative HEENT: Atraumatic; normocephalic EYES; Anicteric, Normal Conjunctiva NECK; supple, normal thyroid, RESPIRATORY: Diminished to auscultation CARDIOVASCULAR: Regular S1 S2, GI: soft, normoactive bowel sounds, distended tympanitic to percussion : No Renal angle tenderness; EXTREMITIES: No edema, no clubbing, MUSCULOSKELETAL: no muscle wasting NEURO: Awake; no lateralizing signs. SKIN: No Rash PSYCH; Flat affect Weight / BMI Weight Weight: 73.21 kg Body Mass Index (BMI) 27.7 ABG / Lab / Microbiology Data 03/29/25 06:02 03/29/25 06:02 Laboratory: Laboratory Results - last 24 hr 03/29/25 06:02: WBC 6.8, RBC 4.10 L, Hgb 12.8, Hct 39.0, MCV 95.1, MCH 31.2, MCHC 32.8, RDW Std Deviation 43.5, RDW Coeff of Caity 12.4, Plt Count 289, MPV 9.9, Immature Gran % (Auto) 0.300, Neut % (Auto) 58.9, Lymph % (Auto) 24.7, [facility] % (Auto) 12.0 H, Eos % (Auto) 3.5, Baso % (Auto) 0.6, Absolute Neuts (auto) 4.0, Absolute Lymphs (auto) 1.67, Nucleated RBC % 0, Sodium 139, Potassium 4.3, Chloride 104, Carbon Dioxide 22.7, Anion Gap 12, BUN 12, Creatinine 0.67 L, Estim Creat Clear Calc 84.26, Est GFR (MDRD) Non-Af 98, BUN/Creatinine Ratio 17.2, Glu (more content not included)...[facility]09-06-2025 Progress note [facility] Medical Records Department [address] [place] [address] Progress Note - Hospitalist 03/29/25 0717 MR#: [id number] Acct: [id number] Name: JUDY REAGAN ANN Rep #:[id number] : 1960 65 From: Jorge L Jin MD PCP: Dr. Hernandez Mosley MD Status:ADM I N Location: [facility] [id number] Reason for Visit Chief Complaint: Lower abdominal pain Subjective Subjective Patient seen symptoms somewhat improved. Plan is for patient to be discharged home with oral antibiotics and pain meds with Follow-up with GI as outpatient Objective Data Objective Data Vital Signs: Vital Signs Temp Pulse Resp BP Pulse Ox O2 Del Method 97.9 F 65 18 149/93 H 97 Room Air 03/29/25 03:20 03/29/25 03:20 03/29/25 03:20 03/29/25 03:20 03/29/25 03:20 03/29/25 03:20 Oxygen Delivery Method Room Air Weight: 73.21 kg Body Mass Index (BMI) 27.7 Intake & Output: Intake and Output for Last 24 Hours 03/27/25 03/28/25 03/29/25 23:59 23:59 23:59 Intake Total 150.00 / 150.00 450 / 450 350 / 350 Balance 150.00 / 150.00 450 / 450 350 / 350 Lab / Micro Data 03/29/25 06:02 03/29/25 06:02 Labs: Laboratory Results - last 24 hr 03/28/25 05:55: Sodium 140, Potassium 4.5, Chloride 105, Carbon Dioxide 25.7, Anion Gap 10, BUN 9, Creatinine 0.60 L, Estim Creat Clear Calc 94.09, Est GFR (MDRD) Non-Af 101, BUN/Creatinine Ratio 15.0, Glucose 102 H, Calcium 9.3 03/29/25 06:02: WBC 6.8, RBC 4.10 L, Hgb 12.8, Hct 39.0, MCV 95.1, MCH 31.2, MCHC 32.8, RDW Std Deviation 43.5, RDW Coeff of Caiyt 12.4, Plt Count 289, MPV 9.9, Immature Gran % (Auto) 0.300, Neut % (Auto) 58.9, Lymph % (Auto) 24.7, [facility]% (Auto) 12.0 H, Eos % (Auto) 3.5, Baso % (Auto) 0.6, Absolute Neuts (auto) 4.0,Absolute Lymphs (auto) 1.67, Nucleated RBC % 0 Physical Exam Narrative GENERAL: cooperative HEENT: Atraumatic; normocephalic EYES; Anicteric, Normal Conjunctiva NECK; supple, normal thyroid, RESPIRATORY: Diminished to auscultation CARDIOVASCULAR: Regular S1 S2, GI: soft, normoactive bowel sounds, distended tympanitic to percussion : No Renal angle tenderness; EXTREMITIES: No edema, no clubbing, MUSCULOSKELETAL: no muscle wasting NEURO: Awake; no lateralizing signs. SKIN: No Rash PSYCH; Flat affect Assessment & Plan Assessment/Plan (1) Acute diverticulitis: PLAN: Plan Patient is a 65-year-old lady who was admitted with abdominal pain CT demonstrated acute uncomplicated sigmoid diverticulitis admitted to regular nursing floor for further management 1. Acute uncomplicated diverticulitis - CT of the abdomen read as acute uncomplicated sigmoid diverticulitis admitted to regular nursing floor started on Zosyn in addition to pain management IV fluids. Started on clear liquid diet advance as tolerated 03/27/2025; patient seen patient abdominal pain persist to use to rule out bowel obstruction ? 03/28/2025;Abdominal x-rays obtained the day prior demonstrated moderate amount of fecal material in the colon patient was placed on suppository as well as MiraLAX with good effect. Still complains of abdominal cramps and appears bloated.. Patient WBC count trending ? 03/29/2025 patient to be discharged home 2. Hypertension ? Blood pressure controlled, home medications continued with dose adjustment as needed 3. Depression with anxiety ? Patient is on venlafaxine did come to 4. Restless leg syndrome Patient is on ropinirole 5. GERD ? Patient is on PPI 6. Crohn's disease - Does have history of Crohn's, is on Stelara and follows with Dr. Gdowin. Consult was placed to him 7. Psoriatic arthritis ? Patient is on Stelara 8. DVT prophylaxis ? Bilateral SCDs Time spent in the patient's overall evaluation,decision-making process, review of diagnostic data, adjustment of management, discussion with other providers, nursing nursing and ancillary staff involved in patient's care documentation, 36 Minutes 03/29/25 0818 Cosigner Signature (if applicable): CC: ~ Signed [facility]09-05-2025 Progress note Author Jorge L Jin [facility] Note Date/Time March 28, 2025 8:[address] [place] [address] Medical Records Department [address] [place] [address] Progress Note - Hospitalist 03/28/25 0711 MR#: [id number] Acct: [id number] Name: JUDY REAGAN Rep #:[id number] : 1960 65 From: Jorge L Jin MD PCP: Dr. Hernandez Mosley MD Status:ADM I N Location: [place] [address] Reason for Visit Chief Complaint: Lower abdominal pain Subjective Subjective Abdominal x-rays obtained the day prior demonstrated moderate amount of fecal material in the colon patient was placed on suppository as well as MiraLAX with good effect. Still complains of abdominal cramps and appears bloated. Objective Data Objective Data Vital Signs: Vital Signs Temp Pulse Resp BP Pulse Ox O2 Del Method 97.8 F 75 16 150/78 H 97 Room Air 03/28/25 02:00 03/28/25 02:00 03/28/25 02:00 03/28/25 02:00 03/28/25 02:00 03/28/25 02:00 Oxygen Delivery Method Room Air Weight: 73.21 kg Body Mass Index (BMI) 27.7 Intake & Output: Intake and Output for Last 24 Hours 03/26/25 03/27/25 03/28/25 23:59 23:59 23:59 Intake Total 2141.67 / 2141.67 150.00 / 150.00 50 / 50 Balance 2141.67 / 2141.67 150.00 / 150.00 50 / 50 Lab / Micro Data 03/28/25 05:55 03/27/25 10:35 Labs: Laboratory Results - last 24 hr 03/27/25 10:35: WBC 10.0, RBC 3.67 L, Hgb 11.5 L, Hct 34.9 L, MCV 95.1, MCH 31.3, MCHC 33.0, RDW Std Deviation 44.1 H, RDW Coeff of Caity 12.6, Plt Count 266,MPV 10.1, Immature Gran % (Auto) 0.500, Neut % (Auto) 70.0, Lymph % (Auto) 17.2 L, [facility] % (Auto) 10.5 H, Eos % (Auto) 1.6, Baso % (Auto) 0.2, Absolute Neuts (auto) 7.0, Absolute Lymphs (auto) 1.71, Nucleated RBC % 0, Sodium 136, Potassium 4.3, Chloride 103, Carbon Dioxide 23.2, Anion Gap 10, BUN 6, Creatinine 0.61 L, Estim Creat Clear Calc 92.55, Est GFR (MDRD) Non-Af 101, BUN/Creatinine Ratio 10.0, Glucose 116 H, Calcium 8.9, Phosphorus 3.6, Magnesium2.2 03/28/25 05:55: WBC 6.4, RBC 3.64 L, Hgb 11.4 L, Hct 34.7 L, MCV 95.3, MCH 31.3,MCHC 32.9, RDW Std Deviation 44.1 H, RDW Coeff of Caity 12.6, Plt Count 262, MPV 9.9, Immature Gran % (Auto) 0.500, Neut % (Auto) 56.6, Lymph % (Auto) 26.9, [facility]% (Auto) 11.9 H, Eos % (Auto) 3.6, Baso % (Auto) 0.5, Absolute Neuts (auto) 3.6,Absolute Lymphs (auto) 1.72, Nucleated RBC % 0 Radiography Diagnostic Testing: Radiology Impression Abdomen X-Ray 03/27/25 09:10 IMPRESSION: Moderate amount of fecal material is seen in the colon. Reading [id number] Physical Exam Narrative GENERAL: cooperative HEENT: Atraumatic; normocephalic EYES; Anicteric, Normal Conjunctiva NECK; supple, normal thyroid, RESPIRATORY: Diminished to auscultation CARDIOVASCULAR: Regular S1 S2, GI: soft, normoactive bowel sounds, distended tympanitic to percussion : No Renal angle tenderness; EXTREMITIES: No edema, no clubbing, MUSCULOSKELETAL: no muscle wasting NEURO: Awake; no lateralizing signs. SKIN: No Rash PSYCH; Flat affect Assessment & Plan Assessment/Plan (1) Acute diverticulitis: PLAN: Plan Patient is a 65-year-old lady who was admitted with abdominal pain CT demonstrated acute uncomplicated sigmoid diverticulitis admitted to regular nursing floor for further management 1. Acute uncomplicated diverticulitis - CT of the abdomen read as acute uncomplicated sigmoid diverticulitis admitted to regular nursing floor started on Zosyn in addition to pain management IV fluids. Started on clear liquid diet advance as tolerated 03/27/2025; patient seen patient abdominal pain persist to use to rule out bowel obstruction ? 03/28/2025;Abdominal x-rays obtained the day prior demonstrated moderate amount of fecal material in the colon patient was placed on suppository as well as MiraLAX with good effect. Still complains of abdominal cramps and appears bloated.. Patient WBC count trending 2. Hypertension ? Blood pressure controlled, home medications continued with dose adjustment as needed 3. Depression with anxiety ? Patient is on venlafaxine did come to 4. Restless leg syndrome Patient is on ropinirole 5. GERD ? Patient is on PPI 6. Crohn's disease - Does have history of Crohn's, is on Stelara and follows with Dr. Godwin. Consult was placed to him 7. Psoriatic arthritis ? Patient is on Stelara 8. DVT prophylaxis ? Bilateral SCDs Time spent in the patient's overall evaluation,decision-making process, review of diagnostic data, adjustment of management, discussion with other providers, nursing nursing and ancillary staff involved in patient's care documentation, 36 Minutes Charges/Coding Visit Charges Inpatient E&M: 42961 Subs Hosp L2 03/28/25 0804 <Electronically signed by Jorge L Jin MD> Cosigner Signature (if applicable): CC: ~ Signed [facility] Work Phone: [phone]) 865-792709-05-2025 Progress note [facility] Medical Records Department [address] [place] [address] Progress Note - Hospitalist 03/28/25 0711 MR#: [id number] Acct: [id number] Name: JUDY REAGAN ANN Rep #:[id number] : 1960 65 From: Jorge L Jin MD PCP: Dr. Hernandez Mosley MD Status:ADM I N Location: [place] [address]1 Reason for Visit Chief Complaint: Lower abdominal pain Subjective Subjective Abdominal x-rays obtained the day prior demonstrated moderate amount of fecal material in the colonpatient was placed on suppository as well as MiraLAX with good effect. Still complains of abdominalcramps and appears bloated. Objective Data Objective Data Vital Signs: Vital Signs Temp Pulse Resp BP Pulse Ox O2 Del Method 97.8 F 75 16 150/78 H 97 Room Air 03/28/25 02:00 03/28/25 02:00 03/28/25 02:00 03/28/25 02:00 03/28/25 02:00 03/28/25 02:00 Oxygen Delivery Method Room Air Weight: 73.21 kg Body Mass Index (BMI) 27.7 Intake & Output: Intake and Output for Last 24 Hours 03/26/25 03/27/25 03/28/25 23:59 23:59 23:59 Intake Total 2141.67 / 2141.67 150.00 / 150.00 50 / 50 Balance 2141.67 / 2141.67 150.00 / 150.00 50 / 50 Lab / Micro Data 03/28/25 05:55 03/27/25 10:35 Labs: Laboratory Results - last 24 hr 03/27/25 10:35: WBC 10.0, RBC 3.67 L, Hgb 11.5 L, Hct 34.9 L, MCV 95.1, MCH 31.3, MCHC 33.0, RDW Std Deviation 44.1 H, RDW Coeff of Caity 12.6, Plt Count 266,MPV 10.1, Immature Gran % (Auto) 0.500, Neut % (Auto) 70.0, Lymph % (Auto) 17.2 L, [facility] % (Auto) 10.5 H, Eos % (Auto) 1.6, Baso % (Auto) 0.2, Absolute Neuts (auto) 7.0, Absolute Lymphs (auto) 1.71, Nucleated RBC % 0, Sodium 136, Potassium 4.3,Chloride 103, Carbon Dioxide 23.2, Anion Gap 10, BUN 6, Creatinine 0.61 L, Estim Creat Clear Calc 92.55, Est GFR (MDRD) Non-Af 101, BUN/Creatinine Ratio 10.0, Glucose 116 H, Calcium 8.9, Phosphorus 3.6, Magnesium2.2 03/28/25 05:55: WBC 6.4, RBC 3.64 L, Hgb 11.4 L, Hct 34.7 L, MCV 95.3, MCH 31.3,MCHC 32.9, RDW Std Deviation 44.1 H, RDW Coeff of Caity 12.6, Plt Count 262, MPV 9.9, Immature Gran % (Auto) 0.500, Neut % (Auto) 56.6, Lymph % (Auto) 26.9, [facility]% (Auto) 11.9 H, Eos % (Auto) 3.6, Baso % (Auto) 0.5, Absolute Neuts (auto) 3.6,Absolute Lymphs (auto) 1.72, Nucleated RBC % 0 Radiography Diagnostic Testing: Radiology Impression Abdomen X-Ray 03/27/25 09:10 IMPRESSION: Moderate amount of fecal material is seen in the colon. Reading Location: [id number] Physical Exam Narrative GENERAL: cooperative HEENT: Atraumatic; normocephalic EYES; Anicteric, Normal Conjunctiva NECK; supple, normal thyroid, RESPIRATORY: Diminished to auscultation CARDIOVASCULAR: Regular S1 S2, GI: soft, normoactive bowel sounds, distended tympanitic to percussion : No Renal angle tenderness; EXTREMITIES: No edema, no clubbing, MUSCULOSKELETAL: no muscle wasting NEURO: Awake; no lateralizing signs. SKIN: No Rash PSYCH; Flat affect Assessment & Plan Assessment/Plan (1) Acute diverticulitis: PLAN: Plan Patient is a 65-year-old lady who was admitted with abdominal pain CT demonstrated acute uncomplicated sigmoid diverticulitis admitted to regular nursing floor for further management 1. Acute uncomplicated diverticulitis - CT of the abdomen read as acute uncomplicated sigmoid diverticulitis admitted to regular nursing floor started on Zosyn in addition to pain management IV fluids. Started on clear liquid diet advance as tolerated 03/27/2025; patient seen patient abdominal pain persist to use to rule out bowel obstruction ? 03/28/2025;Abdominal x-rays obtained the day prior demonstrated moderate amount of fecal material in the colon patient was placed on suppository as well as MiraLAX with good effect. Still complains of abdominal cramps and appears bloated.. Patient WBC count trending 2. Hypertension ? Blood pressure controlled, home medications continued with dose adjustment as needed 3. Depression with anxiety ? Patient is on venlafaxine did come to 4. Restless leg syndrome Patient is on ropinirole 5. GERD ? Patient is on PPI 6. Crohn's disease - Does have history of Crohn's, is on Stelara and follows with Dr. Godwin. Consult was placed to him 7. Psoriatic arthritis ? Patient is on Stelara 8. DVT prophylaxis ? Bilateral SCDs Time spent in the patient's overall evaluation,decision-making process, review of diagnostic data, adjustment of management, discussion with other providers, nursing nursing and ancillary staff involved in patient's care documentation, 36 Minutes Charges/Coding Visit Charges Inpatient E&M: 42406 Subs Hosp L2 03/28/25 0804 Cosigner Signature (if applicable): CC: ~ Signed [facility]09-04-2025 Progress note Author Jorge L Jin [facility] Note Date/Time March 27, 2025 8:55am [facility] Medical Records Department [address] [place] [address] Progress Note - Hospitalist 03/27/25 0650 MR#: [id number] Acct: [id number] Name: JUDY REAGAN ANN Rep #:[id number] : 1960 65 From: Jorge L Jin MD PCP: Dr. Hernandez Mosley MD Status:ADM I N Location: [place] [address] Reason for Visit Chief Complaint: Lower abdominal pain Subjective Subjective Patient is reevaluated. Pain persist Objective Data Objective Data Vital Signs: Vital Signs Temp Pulse Resp BP Pulse Ox O2 Del Method 98.5 F 86 16 136/73 H 97 Room Air 03/27/25 02:22 03/27/25 02:22 03/27/25 02:22 03/27/25 02:22 03/27/25 02:22 03/27/25 02:22 Oxygen Delivery Method Room Air Weight: 73.21 kg Body Mass Index (BMI) 27.7 Intake & Output: Intake and Output for Last 24 Hours 03/25/25 03/26/25 03/27/25 23:59 23:59 23:59 Intake Total 1050 / 1050 2141.67 / 2141.67 50 / 50 Balance 1050 / 1050 2141.67 / 2141.67 50 / 50 Lab / Micro Data 03/26/25 06:04 03/26/25 06:04 Labs: Laboratory Results - last 24 hr 03/26/25 06:04: Differential Comment SCANNED, Sodium 137, Potassium 4.0, Chloride 102, Carbon Dioxide 26.6, Anion Gap 9, BUN 8, Creatinine 0.80, Estim Creat Clear Calc 70.57, Est GFR (MDRD) Non-Af 83, BUN/Creatinine Ratio 9.7 L, Glucose 109 H, Calcium 8.8 Physical Exam Narrative GENERAL: cooperative HEENT: Atraumatic; normocephalic EYES; Anicteric, Normal Conjunctiva NECK; supple, normal thyroid, RESPIRATORY: Diminished to auscultation CARDIOVASCULAR: Regular S1 S2, GI: soft, normoactive bowel sounds, distended tympanitic to percussion : No Renal angle tenderness; EXTREMITIES: No edema, no clubbing, MUSCULOSKELETAL: no muscle wasting NEURO: Awake; no lateralizing signs. SKIN: No Rash PSYCH; Flat affect Assessment & Plan Assessment/Plan (1) Acute diverticulitis: PLAN: Plan Patient is a 65-year-old lady who was admitted with abdominal pain CT demonstrated acute uncomplicated sigmoid diverticulitis admitted to regular nursing floor for further management 1. Acute uncomplicated diverticulitis - CT of the abdomen read as acute uncomplicated sigmoid diverticulitis admitted to regular nursing floor started on Zosyn in addition to pain management IV fluids. Started on clear liquid diet advance as tolerated 03/27/2025; patient seen patient abdominal pain persist to use to rule out bowel obstruction or 2. Hypertension ? Blood pressure controlled, home medications continued with dose adjustment as needed 3. Depression with anxiety ? Patient is on venlafaxine did come to 4. Restless leg syndrome Patient is on ropinirole 5. GERD ? Patient is on PPI 6. Crohn's disease - Does have history of Crohn's, is on Stelara and follows with Dr. Godwin. Consult was placed to Dr. Villagomez 7. DVT prophylaxis ? Bilateral SCDs Time spent in the patient's overall evaluation,decision-making process, review of diagnostic data, adjustment of management, discussion with other providers, nursing nursing and ancillary staff involved in patient's care documentation, 36 Minutes Charges/Coding Visit Charges Inpatient E&M: 86750 Subs Hosp L2 03/27/25 0855 <Electronically signed by Jorge L Jin MD> Cosigner Signature (if applicable): CC: ~ Signed [facility] Work Phone: 1(420) 308-307809-04-2025 Radiology Diagnostic study note Imaging Services [address] [place] [address] Abd Decub and/or Erect(Portabl MR#: [id number] Acct: [id number] Name: JUDY REAGAN ANN Rep #: [id number] : 1960 F 65 From: Lawrence Wayne MD PCP: Dr. Hernandez Mosley MD Status: ADM I N Study:Abd Decub and/or Erect(Portabl Date of Exam: 03/27/25 Exam# [id number] Ordering Dr: Becky Jin MD PROCEDURE: ABD DECUB AND/OR ERECT(PORTABL 03/27/2025 REASON FOR EXAM: ABDOMINAL DISTENTION TECHNIQUE: Procedure Code: [id number]_P Modality: DX Procedure: ABD DECUB AND/OR ERECT(PORTABL COMPARISON: Prior CT scan of the abdomen and pelvis dated March 25, 2025. FINDINGS: Bowel gas: Moderate amount of fecal material is seen in the colon. This is worse in the right hemicolon. No evidence of small-bowel obstruction. Calcifications: No suspicious calcifications. Bones: Prior fusion at the L4-L5 level. Other: RAD/Abd Decub and/or Erect(Portabl IMPRESSION: Moderate amount of fecal material is seen in the colon. Reading [id number] CC: Dr. Jorge L Jin MD; Dr. Hernandez Mosley MD ~ Orthophotography Technician: Signed [facility]09-04-2025 Progress note [facility] Medical Records Department [address] [place] [address] Progress Note - Hospitalist 03/27/25 0650 MR#: [id number] Acct: [id number] Name: JUDY REAGAN ANN Rep #:[id number] : 1960 65 From: Jorge L Jin MD PCP: Dr. Hernandez Mosley MD Status:ADM I N Location: [place] [address] Reason for Visit Chief Complaint: Lower abdominal pain Subjective Subjective Patient is reevaluated. Pain persist Objective Data Objective Data Vital Signs: Vital Signs Temp Pulse Resp BP Pulse Ox O2 Del Method 98.5 F 86 16 136/73 H 97 Room Air 03/27/25 02:22 03/27/25 02:22 03/27/25 02:22 03/27/25 02:22 03/27/25 02:22 03/27/25 02:22 Oxygen Delivery Method Room Air Weight: 73.21 kg Body Mass Index (BMI) 27.7 Intake & Output: Intake and Output for Last 24 Hours 03/25/25 03/26/25 03/27/25 23:59 23:59 23:59 Intake Total 1050 / 1050 2141.67 / 2141.67 50 / 50 Balance 1050 / 1050 2141.67 / 2141.67 50 / 50 Lab / Micro Data 03/26/25 06:04 03/26/25 06:04 Labs: Laboratory Results - last 24 hr 03/26/25 06:04: Differential Comment SCANNED, Sodium 137, Potassium 4.0, Chloride 102, Carbon Dioxide 26.6, Anion Gap 9, BUN 8, Creatinine 0.80, Estim Creat Clear Calc 70.57, Est GFR (MDRD) Non-Af 83, BUN/Creatinine Ratio 9.7 L, Glucose 109 H, Calcium 8.8 Physical Exam Narrative GENERAL: cooperative HEENT: Atraumatic; normocephalic EYES; Anicteric, Normal Conjunctiva NECK; supple, normal thyroid, RESPIRATORY: Diminished to auscultation CARDIOVASCULAR: Regular S1 S2, GI: soft, normoactive bowel sounds, distended tympanitic to percussion : No Renal angle tenderness; EXTREMITIES: No edema, no clubbing, MUSCULOSKELETAL: no muscle wasting NEURO: Awake; no lateralizing signs. SKIN: No Rash PSYCH; Flat affect Assessment & Plan Assessment/Plan (1) Acute diverticulitis: PLAN: Plan Patient is a 65-year-old lady who was admitted with abdominal pain CT demonstrated acute uncomplicated sigmoid diverticulitis admitted to regular nursing floor for further management 1. Acute uncomplicated diverticulitis - CT of the abdomen read as acute uncomplicated sigmoid diverticulitis admitted to regular nursing floor started on Zosyn in addition to pain management IV fluids. Started on clear liquid diet advance as tolerated 03/27/2025; patient seen patient abdominal pain persist to use to rule out bowel obstruction or 2. Hypertension ? Blood pressure controlled, home medications continued with dose adjustment as needed 3. Depression with anxiety ? Patient is on venlafaxine did come to 4. Restless leg syndrome Patient is on ropinirole 5. GERD ? Patient is on PPI 6. Crohn's disease - Does have history of Crohn's, is on Stelara and follows with Dr. Godwin. Consult was placed to Dr. Villagomez 7. DVT prophylaxis ? Bilateral SCDs Time spent in the patient's overall evaluation,decision-making process, review of diagnostic data, adjustment of management, discussion with other providers, nursing nursing and ancillary staff involved in patient's care documentation, 36 Minutes Charges/Coding Visit Charges Inpatient E&M: 67132 Subs Hosp L2 03/27/25 0855 Cosigner Signature (if applicable): CC: ~ Signed [facility]09-03-2025 Consult note Author Emmy Modi [facility] Note Date/Time March 26, 2025 4:00pm [facility] Medical Records Department [address] [place] [address] Consultation - GI 03/26/25 1503 MR#: [id number] Acct: [id number] Name: JUDY REAGAN Rep #:[id number] : 1960 65 From: Emmy rutledge [employer] PCP: Dr. Hernandez Mosley MD Status:ADM I N Location: [place] [address] HPI Consult Data Date of Consult: 03/26/25 HPI Narrative Reason for Consultation: acute diverticulitis HPI Narrative: - pain began this past Monday (03/22/2025), mild tenderness initially, gradual onset, reports this is her typical diverticulitis pain, same quality but intensity is the worst she has ever had - Dicyclomine 20mg did not provide any relief of pain - pain is worse in the LLQ and radiates across lower abdomen and around to back - rating pain /10 presently, pain meds are only taking edge off for a short time - last documented bout of diverticulitis was July 2024 - treated with Augmentin - self started Cipro and Flagyl Monday (03/23/2025) had on hand at home - despite ATB pain continued to intensify, kept her up Monday evening and severity of pain, doubled over and come to ER on Monday (03/25/2025) - Tramadol PRN for back pain, 3-5 days a week - tramadol did not help abdominal pain - she is tolerating PO, although reports eating causes increased stabbing gas pain and fecal urgency - presently drinking Pulp smoothie - denies any nausea or emesis - denies any hematochezia or melena Bowel movements are: diarrhea this am, this past week formed and not every day, was having some intermittent episodes of diarrhea, reporting this is her baseline diarrhea being dietary triggered Blood noted in stools: denies Bowel movement urgency present: yes Stool incontinence: infrequent Nocturnal BM's: denies Abdominal pain: yes presently 04/02, cramping before a BM, constant dull pain with intermittent waves of severe stabbing pain Rectal pain: denies Fever: low grade 99.9 Night Sweats: denies Visual changes: denies Mouth sores: denies Joint pain: yes, primarily chronic back and hip pain Skin rashes/Lesions: denies Weight changes: denies Smoking status: denies NSAID use: denies - she reports 4 episodes of diverticulitis within a 12 month period prior to initiating ustekinumab, she has had only one episode (July 2024), treated with Augmentin) prior to current presentation [facility] Medical History Pain History of Crohn's [...] 5 mg PO QHS 11/09/23 03/09/25 History dicyclomine 20 mg tablet 20 mg PO TID PRN abdominal p ain 10/04/24 Unknown History duloxetine 30 mg capsule,delayed 30 mg PO DAILY #30 ca ps 11/18/24 03/09/25 Rx release tizanidine 4 mg tablet 4 mg PO BID PRN PRN muscle s pasm 03/25/25 Unknown History ustekinumab 90 mg/mL subcutaneous 90 mg subcut Q8W #1 mL 03/26/25 Unknown Rx syringe (Stelara) Allergy/AdvReac Type Severity Reaction Status Date / [...] walking frequency: 1-2 times per week ROS Constitutional Constitutional: Reports as per HPI Cardiovascular Cardiovascular: Denies abdominal bloating, edema, nausea or vomiting Respiratory/Chest Respiratory/Chest: Denies dyspnea on exertion, mouth breathing, productive cough, shortness of breath at rest or shortness of breath with exertion Gastrointestinal Gastrointestinal: Reports abdominal pain, bloating, cramping and diarrhea Physical Exam Narrative A&Ox3, sitting up in bed, pleasant Const General Appearance: well developed Neck full ROM Resp Effort and Inspection: able to speak in complete sentences and symmetric chest movement Auscultation: clear to auscultation bilaterally GI GI Narrative: abdomen softly distended, +BS x4, mild tenderness LLQ>RLQ, no guarding Extremity normal to inspection Medical Records Data Attestation: I reviewed the patient's medical records Medical records narrative: She was last seen in the GI office 03/18/[address] Godwin - was feeling well, denied any GI symptoms of concern, intermittent diarrhea but felt this was diet related 09/21/2023 stool culture negative 09/24/2023 Chromogranin A WNL IgG subglasses WNL ANCA negative Celiac serologies negative ALCA WNL gASGA 54 (0-50) AMCA WNL ACCA WNL Gastrin WNL COLON 09/25/2023 focal mucosal ulceration at the splenic flexure - minimal non-specific chronic inflammation duodenum - no biopsies of left colon performed Multiple small and large-mouthed diverticula were found in the recto-sigmoid colon, sigmoid colon, descending colon and splenic flexure. Localized severe inflammation characterized by erythema, friability and granularity was found in the sigmoid colon, in the descending colon and at the splenic flexure. - she was started on methotrexate 12.5mg and folic acid - methotrexate did not help her crohn's Capsule ENDO 11/13/2023 benign appearing duodenal stricture, areas of enteritis and ulceration seen throughout the SB. Started on Mesalamine and Budesonide. EGD 11/14/2023 - no pathological diagnosis of duodenal biopsy benign-appearing, intrinsic moderate stenosis was found in the first portion of the duodenum and was traversed after dilation. A TTS dilator was passed through the scope. Dilation with a 15 mm pyloric balloon dilator was performed. The dilation site was examined and showed moderate improvement in luminal narrowing. 03/08/2024 Stelara loading dose 03/18/2025 CRP 4.67 this is down from 6.21 on 10/28/2024 CRP was 12.9 on 09/24/2023 and decreased to 3.04 05/03/2024 Ustekinumab 03/18/2024 Level 4, no Ab 10/28/2024 Level 4.2, no Ab No fecal calprotectin or MRE on record Lab / Micro Data Attestation: I reviewed the patient's lab results. Lab results narrative: labs show leukocytosis (17.4) with a left shift no bands HGB 14.4, ALP 110, AST and ALT WNL, albumin 4.5, lipase [address] 03/25/2025 (IV contrast) Unremarkable stomach and small bowel. No evidence of obstruction. Appendix is surgically absent. Extensive distal colonic diverticulosis, with segmental wall thickening and prominent inflammatory fat stranding in the lower pelvis involving the mid to distal sigmoid colon compatible with acute diverticulitis. No free fluid collection or free air to indicate perforation. Hepatic steatosis. 03/26/25 06:04 03/26/25 06:04 Labs: Laboratory Results - last 24 hr 03/25/25 14:55: WBC 17.4 H, RBC 4.60, Hgb 14.4, Hct 42.0, MCV 91.3, MCH 31.3, MCHC 34.3, RDW Std Deviation 41.3, RDW Coeff of Caity 12.5, Plt Count 345, MPV 9.9, Immature Gran % (Auto) 0.600, Neut % (Auto) 80.0 H, Lymph % (Auto) 7.6 L, [facility] % (Auto) 11.4 H, Eos % (Auto) [...] Albumin 4.5, Globulin 2.9, Albumin/Globulin Ratio 1.5, [id number] 03/25/25 16:24: Urine Color Yellow, Urine Clarity Clear, Urine pH 7.0, Ur Specific [place] 1.005, Urine Protein Negative, Urine Glucose (UA) Normal, UrineKetones Negative, Urine Occult Blood Negative, Urine Nitrite Negative, Urine Bilirubin Negative, Urine Urobilinogen Normal, Ur Leukocyte Esterase Negative, Urine RBC 0 SEEN, Urine WBC 0 SEEN, Ur Squamous Epith Cells 0-5 SEEN, Urine Bacteria 0 SEEN, Urine Mucus 0 SEEN 03/26/25 06:04: WBC 12.6 H, RBC 3.92 L, Hgb 12.2, Hct 36.8 L, MCV 93.9, MCH 31.1, MCHC 33.2, RDW Std Deviation 44.0 H, RDW Coeff of Caity 12.8, Plt Count 281,MPV 9.9, Immature Gran % (Auto) 0.500, Neut % (Auto) 74.0 H, Lymph % (Auto) 10.5L, [facility] % (Auto) 14.4 H, Eos % (Auto) 0.3, Baso % (Auto) 0.3, Absolute Neuts (auto) 9.3 H, Absolute Lymphs (auto) 1.32, Nucleated RBC % 0, Differential Comment SCANNED, Sodium 137, Potassium 4.0, Chloride 102, Carbon Dioxide 26.6, Anion Gap 9, BUN 8, Creatinine 0.80, Estim Creat Clear Calc 70.57, Est GFR (MDRD) Non-Af 83, BUN/Creatinine Ratio 9.7 L, Glucose 109 H, Calcium 8.8 Imaging Radiology Impression Abdomen/Pelvis CT 03/25/25 16:12 IMPRESSION: 1. Acute uncomplicated sigmoid diverticulitis. 2. Diffuse hepatic steatosis. Reading Location: [id number] Assessment & Plan Assessment/Plan (1) Diverticulitis of sigmoid colon: PLAN: Plan 65y/o female with reported history of Crohn's disease managed with Ustekinumab since 02/2024 (recent level 4, no antibodies) who has a history of recurrent diverticulitis with 4 episodes in a 12 month period prior to biologic initiation. She now presents with acute onset severe LLQ pain beginning 03/22/2025, worsening despite self initiation of cipro and metronidazole. With CTconfirming mild sigmoid diverticulitis. She describes the pain as similar in character to prior diverticulitis episodes, but more severe with associated bloating, and abdominal distention. No associated nausea, vomiting, or change in bowel habits. Denies dysuria; UA negative. Vitals: Low-grade temp 99.9. He was admitted due to uncontrolled pain despite multiple doses of IV analgesia in the ED. Initiated on IV piperacillin- tazobactam. Pain remains only partially responsive to IV morphine and oral oxycodone. She is tolerating oral intake. Last prior diverticulitis episode July 2024, treated with Augmentin. Recommend continued IV Zosyn for acute diverticulitis. She has shown improvement in leukocytosis (17.4 -> 12.6). Monitor vitals, abdominal pain, WBC daily. Recommend soft diet as tolerated. Avoid NSAIDS given history of Crohn's. Consider surgical consultation for worsening pain, signs of peritonitis, or failure to improve with IV antibiotics. 03/26/25 1600 <Electronically signed by Emmy DO> Cosigner Signature (if applicable): CC: Dr. Hernandez Mosley MD~ Signed [facility] Work Phone: 1(329) 801-609409-03-2025 Consult note [facility] Medical Records Department [address] [place] [address] Consultation - GI 03/26/25 1503 MR#: [id number] Acct: [id number] Name: JUDY REAGAN Rep #:[id number] : 1960 65 From: Emmy Stern PCP: Dr. Hernandez Mosley MD Status:ADM I N Location: [place] [address] HPI Consult Data Date of Consult: 03/26/25 HPI Narrative Reason for Consultation: acute diverticulitis HPI Narrative: - pain began this past Monday (03/22/2025), mild tenderness initially, gradual onset, reports thisis her typical diverticulitis pain, same quality but intensity is the worst she has ever had - Dicyclomine 20mg did not provide any relief of pain - pain is worse in the LLQ and radiates across lower abdomen and around to back - rating pain 9/10 presently, pain meds are only taking edge off for a short time - last documented bout of diverticulitis was July 2024 - treated with Augmentin - self started Cipro and Flagyl Monday (03/23/2025) had on hand at home - despite ATB pain continued to intensify, kept her up Monday evening and severity of pain, doubledover and come to ER on Monday (03/25/2025) - Tramadol PRN for back pain, 3-5 days a week - tramadol did not help abdominal pain - she is tolerating PO, although reports eating causes increased stabbing gas pain and fecal urgency - presently drinking Pulp smoothie - denies any nausea or emesis - denies any hematochezia or melena Bowel movements are: diarrhea this am, this past week formed and not every day, was having some intermittent episodes of diarrhea, reporting this is her baseline diarrhea being dietary triggered Blood noted in stools: denies Bowel movement urgency present: yes Stool incontinence: infrequent Nocturnal BM's: denies Abdominal pain: yes presently 04/02, cramping before a BM, constant dull pain with intermittent waves of severe stabbing pain Rectal pain: denies Fever: low grade 99.9 Night Sweats: denies Visual changes: denies Mouth sores: denies Joint pain: yes, primarily chronic back and hip pain Skin rashes/Lesions: denies Weight changes: denies Smoking status: denies NSAID use: denies - she reports 4 episodes of diverticulitis within a 12 month period prior to initiating ustekinumab, she has had only one episode (July 2024), treated with Augmentin) prior to current presentation [facility] Medical History Pain History of Crohn's [...] 5 mg PO QHS 11/09/23 03/09/25 History dicyclomine 20 mg tablet 20 mg PO TID PRN abdominal p ain 10/04/24 Unknown History duloxetine 30 mg capsule,delayed 30 mg PO DAILY #30 ca ps 11/18/24 03/09/25 Rx release tizanidine 4 mg tablet 4 mg PO BID PRN PRN muscle s pasm 03/25/25 Unknown History ustekinumab 90 mg/mL subcutaneous 90 mg subcut Q8W #1 mL 03/26/25 Unknown Rx syringe (Stelara) Allergy/AdvReac Type Severity Reaction Status Date / [...] walking frequency: 1-2 times per week ROS Constitutional Constitutional: Reports as per HPI Cardiovascular Cardiovascular: Denies abdominal bloating, edema, nausea or vomiting Respiratory/Chest Respiratory/Chest: Denies dyspnea on exertion, mouth breathing, productive cough, shortness of breath at rest or shortness of breath with exertion Gastrointestinal Gastrointestinal: Reports abdominal pain, bloating, cramping and diarrhea Physical Exam Narrative A&Ox3, sitting up in bed, pleasant Const General Appearance: well developed Neck full ROM Resp Effort and Inspection: able to speak in complete sentences and symmetric chest movement Auscultation: clear to auscultation bilaterally GI GI Narrative: abdomen softly distended, +BS x4, mild tenderness LLQ>RLQ, no guarding Extremity normal to inspection Medical Records Data Attestation: I reviewed the patient's medical records Medical records narrative: She was last seen in the GI office 03/18/[address] Godwin - was feeling well, denied any GI symptoms of concern, intermittent diarrhea but felt this was diet related 09/21/2023 stool culture negative 09/24/2023 Chromogranin A WNL IgG subglasses WNL ANCA negative Celiac serologies negative ALCA WNL gASGA 54 (0-50) AMCA WNL ACCA WNL Gastrin WNL COLON 09/25/2023 focal mucosal ulceration at the splenic flexure - minimal non-specific chronic inflammation duodenum - no biopsies of left colon performed Multiple small and large-mouthed diverticula were found in the recto-sigmoid colon, sigmoid colon, descending colon and splenic flexure. Localized severe inflammation characterized by erythema, friability and granularity was found in the sigmoid colon, in the descending colon and at the splenic flexure. - she was started on methotrexate 12.5mg and folic acid - methotrexate did not help her crohn's Capsule ENDO 11/13/2023 benign appearing duodenal stricture, areas of enteritis and ulceration seen throughout the SB. Started on Mesalamine and Budesonide. EGD 11/14/2023 - no pathological diagnosis of duodenal biopsy benign-appearing, intrinsic moderate stenosis was found in the first portion of the duodenum and was traversed after dilation. A TTS dilator was passed through the scope. Dilation with a 15 mm pyloric balloon dilator was performed. The dilation site was examined and showed moderate improvement in luminal narrowing. 03/08/2024 Stelara loading dose 03/18/2025 CRP 4.67 this is down from 6.21 on 10/28/2024 CRP was 12.9 on 09/24/2023 and decreased to 3.04 05/03/2024 Ustekinumab 03/18/2024 Level 4, no Ab 10/28/2024 Level 4.2, no Ab No fecal calprotectin or MRE on record Lab / Micro Data Attestation: I reviewed the patient's lab results. Lab results narrative: labs show leukocytosis (17.4) with a left shift no bands HGB 14.4, ALP 110, AST and ALT WNL, albumin 4.5, lipase [address] 03/25/2025 (IV contrast) Unremarkable stomach and small bowel. No evidence of obstruction. Appendix is surgically absent. Extensive distal colonic diverticulosis, with segmental wall thickening and prominent inflammatory fat stranding in the lower pelvis involving the mid to distal sigmoid colon co mpatible with acute diverticulitis. No free fluid collection or free air to indicate perforation. Hepatic steatosis. 03/26/25 06:04 03/26/25 06:04 Labs: Laboratory Results - last 24 hr 03/25/25 14:55: WBC 17.4 H, RBC 4.60, Hgb 14.4, Hct 42.0, MCV 91.3, MCH 31.3, MCHC 34.3, RDW Std Deviation 41.3, RDW Coeff of Caity 12.5, Plt Count 345, MPV 9.9, Immature Gran % (Auto) 0.600, Neut % (Auto) 80.0 H, Lymph % (Auto) 7.6 L, [facility] % (Auto) 11.4 H, Eos % (Auto) [...] Albumin 4.5, Globulin 2.9, Albumin/Globulin Ratio 1.5, [id number] 03/25/25 16:24: Urine Color Yellow, Urine Clarity Clear, Urine pH 7.0, Ur Specific [place] 1.005, Urine Protein Negative, Urine Glucose (UA) Normal, UrineKetones Negative, Urine Occult Blood Negative, Urine Nitrite Negative, Urine Bilirubin Negative, Urine Urobilinogen Normal, Ur Leukocyte Esterase Negative, Urine RBC 0 SEEN, Urine WBC 0 SEEN, Ur Squamous Epith Cells 0-5 SEEN, Urine Bacteria 0 SEEN, Urine Mucus 0 SEEN 03/26/25 06:04: WBC 12.6 H, RBC 3.92 L, Hgb 12.2, Hct 36.8 L, MCV 93.9, MCH 31.1, MCHC 33.2, RDW Std Deviation 44.0 H, RDW Coeff of Caity 12.8, Plt Count 281,MPV 9.9, Immature Gran % (Auto) 0.500, Neut% (Auto) 74.0 H, Lymph % (Auto) 10.5L, [facility] % (Auto) 14.4 H, Eos % (Auto) 0.3, Baso % (Auto) 0.3, Absolute Neuts (auto) 9.3 H, Absolute Lymphs (auto) 1.32, Nucleated RBC % 0, Differential Comment SCANNED, Sodium 137, Potassium 4.0, Chloride 102, Carbon Dioxide 26.6, Anion Gap 9, BUN 8, Creatinine 0.80, Estim Creat Clear Calc 70.57, Est GFR (MDRD) Non-Af 83, BUN/Creatinine Ratio 9.7 L, Glucose 109H, Calcium 8.8 Imaging Radiology Impression Abdomen/Pelvis CT 03/25/25 16:12 IMPRESSION: 1. Acute uncomplicated sigmoid diverticulitis. 2. Diffuse hepatic steatosis. Reading Location: [id number] Assessment & Plan Assessment/Plan (1) Diverticulitis of sigmoid colon: PLAN: Plan 65y/o female with reported history of Crohn's disease managed with Ustekinumab since 02/2024 (recentlevel 4, no antibodies) who has a history of recurrent diverticulitis with 4 episodes in a 12 monthperiod prior to biologic initiation. She now presents with acute onset severe LLQ pain beginning 03/22/2025, worsening despite self initiation of cipro and metronidazole. With CTconfirming mild sigmoid diverticulitis. She describes the pain as similar in character to prior diverticulitis episodes, but more severe with associated bloating, and abdominal distention. No associated nausea, vomiting, or change in bowel habits. Denies dysuria; UA negative. Vitals: Low-grade temp 99.9. He was admitted due to uncontrolled pain despite multiple doses of IV analgesia in the ED. Initiated on IV piperacillin- tazobactam. Pain remains only partially responsiveto IV morphine and oral oxycodone. She is tolerating oral intake. Last prior diverticulitis episode July 2024, treated with Augmentin. Recommend continued IV Zosyn for acute diverticulitis. She has shown improvement in leukocytosis (17.4 -> 12.6). Monitor vitals, abdominal pain, WBC daily. Recommend soft diet as tolerated. Avoid NSAIDS given history of Crohn's. Consider surgical consultation for worsening pain, signs of peritonitis, or failure to improve with IV antibiotics. 03/26/25 1600 Cosigner Signature (if applicable): CC: Dr. Hernandez Mosley MD~ Signed [facility]09-03-2025 Progress note Author Jorge L Jin [facility] Note Date/Time March 26, 2025 9:28am [facility] Medical Records Department [address] [place] [address] Progress Note - Hospitalist 03/26/2520 MR#: [id number] Acct: [id number] Name: JUDY REAGAN Rep #:[id number] : 1960 65 From: Jorge L Jin MD PCP: Dr. Hernandez Mosley MD Status:ADM I N Location: [place] [address] Reason for Visit Chief Complaint: Lower abdominal pain Subjective Subjective Patient is a 65-year-old lady who was admitted with abdominal pain CT demonstrated acute uncomplicated sigmoid diverticulitis admitted to regular nursing floor for further management Objective Data Objective Data Vital Signs: Vital Signs Temp Pulse Resp BP Pulse Ox O2 Del Method 98.6 F 72 16 138/72 H 98 Room Air 03/26/25 06:11 03/26/25 06:11 03/26/25 06:11 03/26/25 06:11 03/26/25 06:11 03/26/25 06:11 Oxygen Delivery Method Room Air Weight: 73.21 kg Body Mass Index (BMI) 27.7 Intake & Output: Intake and Output for Last 24 Hours 03/24/25 03/25/25 03/26/25 23:59 23:59 23:59 Intake Total 1050 / 1050 1041.67 / 1041.67 Balance 1050 / 1050 1041.67 / 1041.67 Lab / Micro Data 03/26/25 06:04 03/26/25 06:04 Labs: Laboratory Results - last 24 hr 03/25/25 14:55: WBC 17.4 H, RBC 4.60, Hgb 14.4, Hct 42.0, MCV 91.3, MCH 31.3, MCHC 34.3, RDW Std Deviation 41.3, RDW Coeff of Caity 12.5, Plt Count 345, MPV 9.9, Immature Gran % (Auto) 0.600, Neut % (Auto) 80.0 H, Lymph % (Auto) 7.6 L, [facility] % (Auto) 11.4 H, Eos % (Auto) [...] Albumin 4.5, Globulin 2.9, Albumin/Globulin Ratio 1.5, [id number] 03/25/25 16:24: Urine Color Yellow, Urine Clarity Clear, Urine pH 7.0, Ur Specific [place] 1.005, Urine Protein Negative, Urine Glucose (UA) Normal, UrineKetones Negative, Urine Occult Blood Negative, Urine Nitrite Negative, Urine Bilirubin Negative, Urine Urobilinogen Normal, Ur Leukocyte Esterase Negative, Urine RBC 0 SEEN, Urine WBC 0 SEEN, Ur Squamous Epith Cells 0-5 SEEN, Urine Bacteria 0 SEEN, Urine Mucus 0 SEEN 03/26/25 06:04: WBC 12.6 H, RBC 3.92 L, Hgb 12.2, Hct 36.8 L, MCV 93.9, MCH 31.1, MCHC 33.2, RDW Std Deviation 44.0 H, RDW Coeff of Caity 12.8, Plt Count 281,MPV 9.9, Immature Gran % (Auto) 0.500, Neut % (Auto) 74.0 H, Lymph % (Auto) 10.5L, [facility] % (Auto) 14.4 H, Eos % (Auto) 0.3, Baso % (Auto) 0.3, Absolute Neuts (auto) 9.3 H, Absolute Lymphs (auto) 1.32, Nucleated RBC % 0, Differential Comment SCANNED Radiography Diagnostic Testing: Radiology Impression Abdomen/Pelvis CT 03/25/25 16:12 IMPRESSION: 1. Acute uncomplicated sigmoid diverticulitis. 2. Diffuse hepatic steatosis. Reading Location: [facility] Physical Exam Narrative GENERAL: cooperative HEENT: Atraumatic; normocephalic EYES; Anicteric, Normal Conjunctiva NECK; supple, normal thyroid, RESPIRATORY: Diminished to auscultation CARDIOVASCULAR: Regular S1 S2, GI: soft, normoactive bowel sounds, : No Renal angle tenderness; EXTREMITIES: No edema, no clubbing, MUSCULOSKELETAL: no muscle wasting NEURO: Awake; no lateralizing signs. SKIN: No Rash PSYCH; Flat affect Assessment & Plan Assessment/Plan (1) Acute diverticulitis: PLAN: Plan Patient is a 65-year-old lady who was admitted with abdominal pain CT demonstrated acute uncomplicated sigmoid diverticulitis admitted to regular nursing floor for further management 1. Acute uncomplicated diverticulitis - CT of the abdomen read as acute uncomplicated sigmoid diverticulitis admitted to regular nursing floor started on Zosyn in addition to pain management IV fluids. Started on clear liquid diet advance as tolerated 2. Hypertension ? Blood pressure controlled, home medications continued with dose adjustment as needed 3. Depression with anxiety ? Patient is on venlafaxine did come to 4. Restless leg syndrome Patient is on ropinirole 5. GERD ? Patient is on PPI 6. Crohn's disease - Does have history of Crohn's, is on Stelara and follows with Dr. Godwin. Consult was placed to Dr. Villagomez 7. DVT prophylaxis ? Bilateral SCDs Time spent in the patient's overall evaluation,decision-making process, review of diagnostic data, adjustment of management, discussion with other providers, nursing nursing and ancillary staff involved in patient's care documentation, 38 Minutes Charges/Coding Visit Charges Inpatient E&M: 84585 Subs Hosp L2 03/26/25 0928 <Electronically signed by Jorge L Jin MD> Cosigner Signature (if applicable): CC: ~ Signed [facility] Work Phone: 1(712) 693-463909-03-2025 Progress note [facility] Medical Records Department [address] [place] [address] Progress Note - Hospitalist 03/26/25719 MR#: [id number] Acct: [id number] Name: JUDY REAGAN Rep #:[id number] : 1960 65 From: Jorge L Jin MD PCP: Dr. Heranndez Mosley MD Status:ADM I N Location: [place] [address] Reason for Visit Chief Complaint: Lower abdominal pain Subjective Subjective Patient is a 65-year-old lady who was admitted with abdominal pain CT demonstrated acute uncomplicated sigmoid diverticulitis admitted to regular nursing floor for further management Objective Data Objective Data Vital Signs: Vital Signs Temp Pulse Resp BP Pulse Ox O2 Del Method 98.6 F 72 16 138/72 H 98 Room Air 03/26/25 06:11 03/26/25 06:11 03/26/25 06:11 03/26/25 06:11 03/26/25 06:11 03/26/25 06:11 Oxygen Delivery Method Room Air Weight: 73.21 kg Body Mass Index (BMI) 27.7 Intake & Output: Intake and Output for Last 24 Hours 03/24/25 03/25/25 03/26/25 23:59 23:59 23:59 Intake Total 1050 / 1050 1041.67 / 1041.67 Balance 1050 / 1050 1041.67 / 1041.67 Lab / Micro Data 03/26/25 06:04 03/26/25 06:04 Labs: Laboratory Results - last 24 hr 03/25/25 14:55: WBC 17.4 H, RBC 4.60, Hgb 14.4, Hct 42.0, MCV 91.3, MCH 31.3, MCHC 34.3, RDW Std Deviation 41.3, RDW Coeff of Caity 12.5, Plt Count 345, MPV 9.9, Immature Gran % (Auto) 0.600, Neut % (Auto) 80.0 H, Lymph % (Auto) 7.6 L, [facility] % (Auto) 11.4 H, Eos % (Auto) [...] Albumin 4.5, Globulin 2.9, Albumin/Globulin Ratio 1.5, [id number] 03/25/25 16:24: Urine Color Yellow, Urine Clarity Clear, Urine pH 7.0, Ur Specific [place] 1.005, Urine Protein Negative, Urine Glucose (UA) Normal, UrineKetones Negative, Urine Occult Blood Negative, Urine Nitrite Negative, Urine Bilirubin Negative, Urine Urobilinogen Normal, Ur Leukocyte Esterase Negative, Urine RBC 0 SEEN, Urine WBC 0 SEEN, Ur Squamous Epith Cells 0-5 SEEN, Urine Bacteria 0 SEEN, Urine Mucus 0 SEEN 03/26/25 06:04: WBC 12.6 H, RBC 3.92 L, Hgb 12.2, Hct 36.8 L, MCV 93.9, MCH 31.1, MCHC 33.2, RDW Std Deviation 44.0 H, RDW Coeff of Caity 12.8, Plt Count 281,MPV 9.9, Immature Gran % (Auto) 0.500, Neut% (Auto) 74.0 H, Lymph % (Auto) 10.5L, [facility] % (Auto) 14.4 H, Eos % (Auto) 0.3, Baso % (Auto) 0.3, Absolute Neuts (auto) 9.3 H, Absolute Lymphs (auto) 1.32, Nucleated RBC % 0, Differential Comment SCANNED Radiography Diagnostic Testing: Radiology Impression Abdomen/Pelvis CT 03/25/25 16:12 IMPRESSION: 1. Acute uncomplicated sigmoid diverticulitis. 2. Diffuse hepatic steatosis. Reading Location: [facility] Physical Exam Narrative GENERAL: cooperative HEENT: Atraumatic; normocephalic EYES; Anicteric, Normal Conjunctiva NECK; supple, normal thyroid, RESPIRATORY: Diminished to auscultation CARDIOVASCULAR: Regular S1 S2, GI: soft, normoactive bowel sounds, : No Renal angle tenderness; EXTREMITIES: No edema, no clubbing, MUSCULOSKELETAL: no muscle wasting NEURO: Awake; no lateralizing signs. SKIN: No Rash PSYCH; Flat affect Assessment & Plan Assessment/Plan (1) Acute diverticulitis: PLAN: Plan Patient is a 65-year-old lady who was admitted with abdominal pain CT demonstrated acute uncomplicated sigmoid diverticulitis admitted to regular nursing floor for further management 1. Acute uncomplicated diverticulitis - CT of the abdomen read as acute uncomplicated sigmoid diverticulitis admitted to regular nursing floor started on Zosyn in addition to pain management IV fluids. Started on clear liquid diet advance as tolerated 2. Hypertension ? Blood pressure controlled, home medications continued with dose adjustment as needed 3. Depression with anxiety ? Patient is on venlafaxine did come to 4. Restless leg syndrome Patient is on ropinirole 5. GERD ? Patient is on PPI 6. Crohn's disease - Does have history of Crohn's, is on Stelara and follows with Dr. Godwin. Consult was placed to Dr. Villagomez 7. DVT prophylaxis ? Bilateral SCDs Time spent in the patient's overall evaluation,decision-making process, review of diagnostic data, adjustment of management, discussion with other providers, nursing nursing and ancillary staff involved in patient's care documentation, 38 Minutes Charges/Coding Visit Charges Inpatient E&M: 73476 Subs Hosp L2 03/26/25 0928 Cosigner Signature (if applicable): CC: ~ Signed [facility]09-02-2025 History and physical note Author Jennifer Dunne [facility] Note Date/Time March 25, 2025 6:47pm [facility] Medical Records Department [address] [place] [address] H&P Exam - Hospitalist 03/25/25 1840 MR#: [id number] Acct: [id number] Name: JUDY REAGAN Rep #:[id number] : 1960 65 From: Jennifer Dunne MD PCP: Dr. Hernandez Mosley MD Status:ADM I N [facility] - General General Date of Admission: 03/25/25 Date of Service: 03/25/25 Chief Complaint: Lower abdominal pain HPI Narrative JUDY REAGAN, is a 65-year-old female with a history of GERD, restless leg syndrome,depression, Crohn's disease presented [facility] ED 03/25/2025 with diffuse lower abdominal pain worse on the right that started yesterday gradually. She was placed on Cipro and Flagyl and symptoms worsened so she cameto the ED. Does follow with Dr. Godwin and was diagnosed with Crohn's disease, she [...] around to her back, denies epigastric pain [facility] Medical History Pain History of Crohn's [...] 80.0 H, Lymph % (Auto) 7.6 L, [facility] % (Auto) 11.4 H, Eos % (Auto) [...] Albumin 4.5, Globulin 2.9, Albumin/Globulin Ratio 1.5, [id number] 03/25/25 16:24: Urine Color Yellow, Urine Clarity Clear, Urine pH 7.0, Ur Specific [place] 1.005, Urine Protein Negative, Urine Glucose (UA) Normal, UrineKetones Negative, Urine Occult Blood Negative, Urine Nitrite Negative, Urine Bilirubin Negative, Urine Urobilinogen Normal, Ur Leukocyte Esterase Negative Imaging Radiology Impression Abdomen/Pelvis CT 03/25/25 16:12 IMPRESSION: 1. Acute uncomplicated sigmoid diverticulitis. 2. Diffuse hepatic steatosis. Reading Location: [id number] Assessment & Plan Assessment/Plan (1) Acute diverticulitis: [...] Dunne MD Charges/Coding Visit Charges Inpatient E&M: 41494 Init Hosp L1 03/25/25 1847 <Electronically signed by Jennifer Dunne MD> Cosigner Signature (if applicable): CC: Dr. Jennifer Dunne MD; Dr. Hernandez Mosley MD~ Signed [facility] Work Phone: 1(670) 639-215409-02-2025 Discharge summary Author Christian Echeverria [facility] Note Date/Time March 25, 2025 6:09pm [facility] Medical Records Department [address] [place] [address] Emergency Department Summary 03/25/25 MR#: [id number] Acct: [id number] Name: JUDY REAGAN Rep #:[id number] : 1960 65 From: Christian Echeverria MD [...] states the pain really has become severe. [facility] Medical History Pain History of [...] be uncomplicated diverticulitis, I reviewed the images andreport which I agree with. Patient needed a [...] 80.0 H Lymph % (Auto) 7.6 L [facility] % (Auto) 11.4 H Eos % (Auto) [...] Clarity Clear Urine pH 7.0 Ur Specific [place] 1.005 Urine Protein Negative Urine Glucose (UA) Normal Urine Ketones Negative Urine Occult Blood Negative Urine Nitrite Negative Urine Bilirubin Negative Urine Urobilinogen Normal Ur Leukocyte Esterase Negative Radiography Diagnostic Testing: Clinical Impression(s) from Imaging Studies Abdomen/Pelvis CT 03/25/25 16:12 IMPRESSION: 1. Acute uncomplicated sigmoid diverticulitis. 2. Diffuse hepatic steatosis. Reading Location: [facility] Management Discussion w/another healthcare provider: Hospitalist Discharge Plan Dx/Rx/DC Orders Clinical Impression: Diverticulitis of sigmoid colon, Crohn's disease, Intractable abdominal pain Disposition Disposition: Acute Care Hospital [facility] What to do if you have Problems For any increased pain, shortness of breath, bleeding, nausea or vomiting, chestpain, or any unexpected problems, contact your Primary Care Provider. Call [facility] ([phone]) or report to the closest Emergency Room. Call 911 if necessary. 03/25/25 180 <Electronically signed by Christian Echeverria MD> Cosigner Signature (if applicable): CC: Dr. Hernandez Mosley MD ~ Signed [facility] Work Phone: 1(112) 529-287109-02-2025 History and physical note [facility] Medical Records Department [address] [place] [address] H&P Exam - Hospitalist 03/25/25 1840 MR#: [id number] Acct: [id number] Name: JUDY REAGAN ANN Rep #:[id number] : 1960 65 From: Jennifer Dunne MD PCP: Dr. Hernandez Mosley MD Status:ADM I N [facility] [facility] HPI - General General Date of Admission: 03/25/25 Date of Service: 03/25/25 Chief Complaint: Lower abdominal pain HPI Narrative JUDY REAGAN, is a 65-year-old female with a history of GERD, restless leg syndrome,depression, Crohn'sdisease presented [facility] ED 03/25/2025 with diffuse lower abdominal pain worse onthe right that started yesterday gradually. She was placed on Cipro and Flagyl and symptoms worsened so she cameto the ED. Does follow with Dr. Godwin and was diagnosed with Crohn's disease, she [...] at bedside. She reports history as above wi thpain starting yesterday and not improving despite trying Cipro and Flagyl, has aheadache and has been nauseous with poor p.o. intake since yesterday, notes she has had gas pains and she will feel the need to have a bowel movement but without much out, no overt diarrhea or constipation, no changesin bladder. In the ED he received pain medication and antinausea medication, nausea is slowly subsiding and feels like she would like to try to eat something, still having pain but is beginning to have some relief with the pain medication. Notes the pain is in her lower abdomen and wraps around to her back, denies epigastric pain [facility] Medical History Pain History of Crohn's [...] 80.0 H, Lymph % (Auto) 7.6 L, [facility] % (Auto) 11.4 H, Eos % (Auto) [...] Albumin 4.5, Globulin 2.9, Albumin/Globulin Ratio 1.5, [id number] 03/25/25 16:24: Urine Color Yellow, Urine Clarity Clear, Urine pH 7.0, Ur Specific [place] 1.005, Urine Protein Negative, Urine Glucose (UA) Normal, UrineKetones Negative, Urine Occult Blood Negative, Urine Nitrite Negative, Urine Bilirubin Negative, Urine Urobilinogen Normal, Ur Leukocyte Esterase Negative Imaging Radiology Impression Abdomen/Pelvis CT 03/25/25 16:12 IMPRESSION: 1. Acute uncomplicated sigmoid diverticulitis. 2. Diffuse hepatic steatosis. Reading Location: [id number] Assessment & Plan Assessment/Plan (1) Acute diverticulitis: [...] Dunne MD Charges/Coding Visit Charges Inpatient E&M: 14981 Init Hosp L1 03/25/25 1847 Cosigner Signature (if applicable): CC: Dr. Jennifer Dunne MD; Dr. Hernandez Mosley MD~ Signed [facility]09-02-2025 Discharge summary [facility] Medical Records Department [address] [place] [address] Emergency Department Summary 03/25/25 MR#: [id number] Acct: [id number] Name: JUDY REAGAN Rep #:[id number] : 1960 65 From: Christian Echeverria MD [...] on. She states she has had a low- grade tempand felt chills, she has had severe nausea, no vomiting. Diarrhea without blood, melena, mucus but she did have tenesmus and then very little stool came out. That started yesterday as well. She states the pain really has become severe. [facility] Medical History Pain History of [...] be uncomplicated diverticulitis, I reviewed the images andreport which I agree with. Patient needed a [...] 80.0 H Lymph % (Auto) 7.6 L [facility] % (Auto) 11.4 H Eos % (Auto) [...] Clarity Clear Urine pH 7.0 Ur Specific [place] 1.005 Urine Protein Negative Urine Glucose (UA) Normal Urine Ketones Negative Urine Occult Blood Negative Urine Nitrite Negative Urine Bilirubin Negative Urine Urobilinogen Normal Ur Leukocyte Esterase Negative Radiography Diagnostic Testing: Clinical Impression(s) from Imaging Studies Abdomen/Pelvis CT 03/25/25 16:12 IMPRESSION: 1. Acute uncomplicated sigmoid diverticulitis. 2. Diffuse hepatic steatosis. Reading Location: [facility] Management Discussion w/another healthcare provider: Hospitalist Discharge Plan Dx/Rx/DC Orders Clinical Impression: Diverticulitis of sigmoid colon, Crohn's disease, Intractable abdominal pain Disposition Disposition: Acute Care Hospital [facility] What to do if you have Problems For any increased pain, shortness of breath, bleeding, nausea or vomiting, chestpain, or any unexpected problems, contact your Primary Care Provider. Call [facility] ([phone]) or report tothe closest Emergency Room. Call 911 if necessary. 03/25/25 1809 Cosigner Signature (if applicable): CC: Dr. Hernandez Mosley MD ~ Signed [facility]09-02-2025 Radiology Diagnostic study note Imaging Services [address] [place] [address] Abdomen/Pelvis W IV Cont ONLY MR#: [id number] Acct: [id number] Name: JUDY REAGAN Rep #: [id number] : 1960 F 65 From: Reese Saenz MD PCP: Dr. Hernandez Mosley MD Status: REG E R Study:Abdomen/Pelvis W IV Cont ONLY Date of E xam: 03/25/25 Exam# [id number] Ordering Dr: Nathaniel Echeverria MD PROCEDURE: CT [...] and fusion as well as posterior metallic fusionof the spinous processes at L4-L5, with intact hardware. CT/Abdomen/Pelvis W IV Cont ONLY IMPRESSION: 1. Acute uncomplicated sigmoid diverticulitis. 2. Diffuse hepatic steatosis. Reading Location: [facility] CC: Dr. Christian Echeverria MD; Dr. Hernandez Mosley MD ~ Orthophotography Technician: Signed [facility]09-02-2025 Discharge summary Author Christian Echeverria [facility] Note Date/Time March 25, 2025 6:09pm [facility] Medical Records Department [address] [place] [address] Emergency Department Summary 03/25/25 MR#: [id number] Acct: [id number] Name: JUDY REAGAN ANN Rep #:[id number] : 1960 65 From: Christian Echeverria MD [...] states the pain really has become severe. [facility] Medical History Pain History of [...] be uncomplicated diverticulitis, I reviewed the images michbette which I agree with. Patient needed a [...] 80.0 H Lymph % (Auto) 7.6 L [facility] % (Auto) 11.4 H Eos % (Auto) [...] Clarity Clear Urine pH 7.0 Ur Specific [place] 1.005 Urine Protein Negative Urine Glucose (UA) Normal Urine Ketones Negative Urine Occult Blood Negative Urine Nitrite Negative Urine Bilirubin Negative Urine Urobilinogen Normal Ur Leukocyte Esterase Negative Radiography Diagnostic Testing: Clinical Impression(s) from Imaging Studies Abdomen/Pelvis CT 03/25/25 16:12 IMPRESSION: 1. Acute uncomplicated sigmoid diverticulitis. 2. Diffuse hepatic steatosis. Reading Location: [facility] Management Discussion w/another healthcare provider: Hospitalist Discharge Plan Dx/Rx/DC Orders Clinical Impression: Diverticulitis of sigmoid colon, Crohn's disease, Intractable abdominal pain Disposition Disposition: Acute Care Hospital [facility] What to do if you have Problems For any increased pain, shortness of breath, bleeding, nausea or vomiting, chestpain, or any unexpected problems, contact your Primary Care Provider. Call [facility] ([phone]) or report to the closest Emergency Room. Call 911 if necessary. 03/25/25 180 <Electronically signed by Christian Echeverria MD> Cosigner Signature (if applicable): CC: Dr. Hernandez Mosley MD ~ Signed [facility] Work Phone: 1(452) 141-260908-26-2025 Evaluation note* Diagnosis Onset Date Resolution Status Admit Date Crohn's disease acute March 182024 9:51am [facility] Work Phone: 1(106) 677-821308-26-2025 Evaluation note* Diagnosis Onset Date Resolution Status Admit Date Crohn's disease acute March 182024 9:51am Acute diverticulitis acute Mar 6:40pm Crohn's disease acute March 25, 2025 6:40pm Intractable abdominal pain acute March 25, 2025 6:40pm [facility] Work Phone: 1(519) [phone] Evaluation note* Diagnosis Onset Date Resolution Status Admit Date Crohn's disease acute March 182024 9:51am Acute diverticulitis acute Mar 6:40pm Crohn's disease acute March 25, 2025 6:40pm Diverticulitis of sigmoid colon acut e March 25, 2025 6:40pm Intractable abdominal pain acute March 25, 2025 6:40pm [facility] Work Phone: [phone]) 970-972508-26-2025 Evaluation note* Diagnosis Onset Date Resolution Status Admit Date Crohn's disease acute March 182024 9:51am Crohn's disease acute March 25, 2025 6:40pm Acute diverticulitis resolved Mar 6:40pm Diverticulitis of sigmoid colon resolved March 25, 025 6:40pm Intractable abdominal pain resolved March 25, 2025 6:40pm Acute diverticulitis acute Mar 2:36pm [facility] Work Phone: 1(442) 949-589808-18-2025 Consult note Medical Records Department [address] [place] [address] Anesthesia Postop Eval I 03/10/25 0848 MR#: [id number] Acct: [id number] Name: JUDY REAGAN ANN Rep #:[id number] : 1960 65 From: Yeimy Duggan CRNA PCP: Dr. Hernandez Mosley MD Status:REG S DC Y Race: C Location: [place] [address] Anesthesia: Postop Eval I Current Vital Signs Temperature: 97.2 F Pulse Rate: 80 Blood Pressure: 140/75 Respiratory Rate: 20 Pulse Ox: 99 Assessment Airway patent: Yes Spontaneous unlabored respirations: Yes nausea: No Vomiting: No Anesthesia Complication: No Fluid Hydration Crystalloid volume administer (ml): 200 Total IV fluid infused: 200 Progress Note Anesthesia document: Postop Eval 1 completed: Yes 03/10/25 0848 a CASHIER TICKET SELLING> Date _ Yeimy Duggan CASHIER TICKET SELLING Cosigner Signature: Date CC: ~ Signed [facility]08-18-2025 Procedure note [facility] Medical Records Department [address] [place] [address] Operative Report 03/10/25 0849 MR#: [id number] Acct: [id number] Name: JUDY REAGAN Rep #:[id number] : 1960 65 From: Montana Quiñonez MD PCP: Dr. Hernandez Mosley MD Status:REG S SC Location: [place] [address] Operative Report (Standard) Operative Information Date of Procedure: 03/10/25 Pre-Operative Diagnosis: Lumbosacral radiculopathy, lumbosacral spinal stenosis,lumbosacral degenerative disc disease Post-Operative Diagnosis: Lumbosacral radiculopathy, lumbosacral spinal stenosis, lumbosacral degenerative disc disease Surgery/Procedure Performed: Right sided lumbar transforaminal epidural steroid injection L4-5, L5-S1 under fluoroscopic guidance dynamicist: No Type of Anesthesia: Local MAC RN [...] Quiñonez MD; Dr. Hernandez Mosley MD~ Signed [facility]08-18-2025 Consult note Medical Records Department [address] [place] [address] Pre-Anesthesia Evaluation 03/10/25 0802 MR#: [id number] Acct: [id number] Name: JUDY REAGAN Rep #:[id number] : 1960 65 From: Pardeep Dsouza CRNA PCP: Dr. Hernandez Mosley MD Status:REG S DC Y Race: C Location: [place] [address] ASA Classification* ASA Classification ASA Classification: 2 [...] L5 S1 Anesthesia History Anesthesia History - potato spotter: Anesthesia History - potato spotter Hx Hospitalization No 03/06/25 11:47 Any Problems [...] Any additional information?: No PONV PONV - potato spotter: PONV - potato spotter Female Yes 03/06/25 11:47 HX of Motion [...] 03/10/25 07:32 Respiratory Assessment Respiratory Assessment - potato spotter: Respiratory Tract Infection Hx - potato spotter Hx Respiratory Tract Infection No 03/06/25 11:47 Any additional information?: No STOP Sleep Apnea STOP Sleep Apnea - potato spotter: STOP Sleep Apnea - potato spotter Hx Hypertension Yes: CONTROLLED WITH MED 03/06/25 [...] Tobacco Use History Tobacco Use History - potato spotter: Tobacco Use History - potato spotter Tobacco Use Smoking Status Former smoker 03/06/25 11:47 Hx Tobacco Use No 03/06/25 11:47 Years Smoking Packs Smoked per Day Smoking Cessation Date was Yes - quit smoking within 15 03/06/25 11:47 within the last 15 years years Hx Smoking Cessation Date 07/24/17 03/06/25 11:47 Hx Smoking Cessation No 03/06/25 11:47 Counseling Any additional information?: No Hematologic Medial History Hematologic Hx - potato spotter: Hematologic Medical Hx - metal handler Hx of Blood Transfusion Yes 03/06/25 11:47 [...] information?: No /Reproduction History /Reproductive History - potato spotter: /Reproductive Hx- potato spotter Hx Now Gestational Age (in weeks): EDC: Hx Hx Para Hx Section SAB No 03/06/25 11:47 Any additional information?: No Active Medications Active Medications: Current Medications Generic Name Dose Route Start Last Admin Trade Name Freq PRN Reason Stop Dose Admin Lactated Ringer's 1,000 mls @ 15 mls/hr 03/10/25 07:30 03/10/25 07:42 IV 15 mls/hr .Q48H SARAH Administration PFS Medical History (Updated 03/06/25 @ 11:52 by [...] no additional complaints, except as documented. 03/10/25 0806 y CASHIER TICKET SELLING> Date _ Pardeep Dsouza [employer]LL[employer] Cosigner Signature: Date CC: ~ Signed [facility]07-01-2025 Consult note Author Yeimy Duggan [facility] Note Date/Time March 10, 2025 9: 22am Medical Records Department [address] [place] [address] Anesthesia Postop Eval I 03/10/25 0848 MR#: [id number] Acct: [id number] Name: SERG REAGANE ANN Rep #:[id number] : 1960 65 From: Yeimy Duggan CRNA PCP: Dr. Hernandez Mosley MD Status:REG S DC Y Race: C Location: [place] [address] Anesthesia: Postop Eval I Current Vital Signs Temperature: 97.2 F Pulse Rate: 80 Blood Pressure: 140/75 Respiratory Rate: 20 Pulse Ox: 99 Assessment Airway patent: Yes Spontaneous unlabored respirations: Yes nausea: No Vomiting: No Anesthesia Complication: No Fluid Hydration Crystalloid volume administer (ml): 200 Total IV fluid infused: 200 Progress Note Anesthesia document: Postop Eval 1 completed: Yes 03/10/25 0848 <Electronically signed by Yeimy chirinos CRNA> Date _ Yeimy Duggan [employer]LL[employer] Cosigner Signature: Date CC: ~ Signed [facility] Work Phone: 1(862) 391-277204-07-2025 Evaluation note* Diagnosis Onset Date Resolution Status Admit Date Crohn's disease acute October 8:50am [facility] Work Phone: 1(863) 288-693703-17-2025 Consult note Medical Records Department [address] [place] [address] Anesthesia Postop Eval II 10/07/24 1226 MR#: [id number] Acct: [id number] Name: JUDY REAGAN ANN Rep #:[id number] : 1960 64 From: Yeimy Duggan PCP: Dr. Hernandez Mosley MD Status:REG S DC Y Race: C Location: [address] Anesthesia Postop Eval I Sum Postop Eval Completion status Anesthesia document: Postop Eval 1 completed: Yes Anesthesia Postop Eval I Summary Anesthesia Postop Eval I Summary: Anesthesia Postop Eval I: Assessment Summary Airway patent Yes 10/07/24 12:09 CASHIER TICKET SELLING.LMIL Spontaneous unlabored Yes 10/07/24 12:09 CASHIER TICK[employer] SELLING.LMIL respirations Mental status Awake 10/07/24 12:09 CASHIER TICK[employer] SELLING.LMIL nausea No 10/07/24 12:09 CASHIER TICK[employer] SELLING.LMIL Vomiting No 10/07/24 12:09 CASHIER TICK[employer] SELLING.LMIL Anesthesia Postop Eval I: Fluid Summary Crystalloid volume administer 10 10/07/24 12:09 CASHIER TICKET SELLING.LMIL (ml) Colloids volume administered ( ml) Blood Product volume administered (ml) Total IV fluid infused 10 10/07/24 12:09 CASHIER TICKET SELLING.LMIL Anesthesia Postop Eval I: Summary Notes Anesthesia Complication No 10/07/24 12:09 CASHIER TICKET SELLING.LMIL Anesthesia Complication Comment: Post-operative progress note Anesthesia: Postop Eval II Evaluation Mental status: Awake Pain Level: 3 nausea: No Vomiting: No 10/07/24 1226 a> Date _ Yeimy Arzate Signature: Date CC: ~ Signed [facility]03-17-2025 Consult note Medical Records Department [address] [place] [address] Anesthesia Postop Eval I 10/07/24 1208 MR#: [id number] Acct: [id number] Name: SERG REAGANE ANN Rep #:[id number] : 1960 64 From: Montse Nicole C[employer]IER TICK[employer] SELLING PCP: Dr. Hernandez Mosley MD Status:REG S DC Y Race: C Location: [place] [address] Anesthesia: Postop Eval I Current Vital Signs [...] Eval 1 completed: Yes 10/07/24 1209 c [employer] SELLING> Date _ Montse Nicole [employer] SELLING Cosigner Signature: Date CC: ~ Signed [facility]03-17-2025 Procedure note [facility] Medical Records Department [address] [place] [address] Operative Report 10/07/24 1200 MR#: [id number] Acct: [id number] Name: JUDY REAGAN ANN Rep #:[id number] : 1960 64 From: Montana Quiñonez MD PCP: Dr. Hernandez Mosley MD Status:REG S DC Location: [place] [address] Operative Report (Standard) Operative Information Date of Procedure: 10/07/24 Pre-Operative Diagnosis: Lumbosacral radiculopathy, lumbosacral degenerative disc disease, lumbosacral spinal stenosis, postlaminectomy syndrome of the lumbar spine Post-Operative Diagnosis: Lumbosacral radiculopathy, lumbosacral degenerative disc disease, lumbosacral spinal stenosis, postlaminectomy syndrome of the lumbar spine Surgery/Procedure Performed: Diagnostic/therapeutic caudal epidural steroid injection under fluoroscopic guidance. dynamicist: No Type of Anesthesia: Local MAC RN [...] Quiñonez MD; Dr. Hernandez Mosley MD~ Signed [facility]03-17-2025 Consult note Medical Records Department [address] [place] [address] Pre-Anesthesia Evaluation 10/07/24 1141 MR#: [id number] Acct: [id number] Name: JUDY REAGAN Rep #:[id number] : 1960 64 From: Amandeep Madrigal MD PCP: Dr. Hernandez Mosley MD Status:REG S DC Y Race: C Location: [place] [address]- ASA Classification* ASA Classification ASA Classification: 2 [...] steroid inj Anesthesia History Anesthesia History - potato spotter: Anesthesia History - potato spotter Hx Hospitalization No 10/04/24 14:57 Any Problems [...] take am of surgery PONV PONV - potato spotter: PONV - potato spotter Female Yes 10/04/24 14:57 HX of Motion [...] 10/07/24 11:21 Respiratory Assessment Respiratory Assessment - potato spotter: Respiratory Tract Infection Hx - potato spotter Hx Respiratory Tract Infection No 10/04/24 14:57 STOP Sleep Apnea STOP Sleep Apnea - potato spotter: STOP Sleep Apnea - potato spotter Hx Hypertension Yes: CONTROLLED WITH MED 10/04/24 [...] Tobacco Use History Tobacco Use History - potato spotter: Tobacco Use History - potato spotter Tobacco Use Smoking Status Former smoker 10/04/24 14:57 Hx Tobacco Use No 10/04/24 14:57 Years Smoking Packs Smoked per Day Smoking Cessation Date was Yes - quit smoking within 15 10/04/24 14:57 within the last 15 years years Hx Smoking Cessation Date 07/24/17 10/04/24 14:57 Hx Smoking Cessation No 10/04/24 14:57 Counseling Hematologic Medial History Hematologic Hx - potato spotter: Hematologic Medical Hx - metal handler Hx of Blood Transfusion Yes 10/04/24 14:57 [...] confused, unrespo /Reproduction History /Reproductive History - potato spotter: /Reproductive Hx- potato spotter Hx Now No 10/04/24 14:57 Gestational Age [...] MD Cosigner Signature: Date CC: ~ Signed [facility]04-23-2024 History and physical note Author Stanley Friend [facility] November 14, 2023 11:56am Note Date/Time November 14, 2023 11: 56am [facility] Medical Records Department [address] [place] [address] History & Physical Exam 11/14/23 1154 MR#: [id number] Acct: [id number] Name: JUDY REAGAN ANN Rep #:[id number] : 1960 63 From: Stanley Godwin DO PCP: Dr. Hernandez Mosley MD Status:REG S SC Location: [place] [address] History and Physical Date of Admission: 11/14/23 JUDY REAGAN, is a 63 F who presents to the office today for follow up. [facility] hospitalization 8..16-831.16 for abdominal pain. EGD 03.20.16?scope could not be advanced through duodenal bulb due to concentric narrowing less likely mass; no obvious ulcerations; duodenitis with duodenal ulcers; gastritis; healing prepyloric ulcer. H.Pylori neg Prior workup: ?CT abd/pel 09.21.23?colonic diverticulosis with diverticulitis *[facility] hospitalization 3.10.14-3 for management of abdominal [...] Appearance: average body habitus and well nourished [facility] Head: normal to inspection Ears: hearing grossly [...] Affect: normal affect Quality Reporting Tobacco Screening ([facility] 138) Smoking Status: Former smoker Assessment and [...] Gram-negatives and anaerobes. Give Tylenol prn for tsfg-rd-uygwinph (level 1-5/10) pain or fever. Give Morphine [...] : -She is going to see a information clerk cashier regarding her psoriatic arthritis. -I will start [...] Hernandez Mosley MD; Stanley Godwin DO~ Signed [facility] Work Phone: 1([phone]) 996-612504-23-2024 Procedure [facility] 11-14-2023 Procedure [facility]04-04-2024 Discharge summary Author Harry Mckeon [facility] October 26, 2023 2:17pm Note Date/Time October 26, 2023 2:17 pm [facility] Physical Therapy [facility] [address] [place] [address] / REHABILITATION SERVICES DISCHARGE SUMMARY MR#: [id number] Acct: [id number] Name: JUDY REAGAN Rep #: [id number] : 1960 63 From: Harry QUIGLEY T Referring Dr.: Dr. Shabbir Birch DO Status: REG R Insurance: [facility] SELF PAY INSURANCE Patient Information [...] Dr. Hernandez Mosley MD ~ CLS Signed [facility] Work Phone: 1(275) 245-440803-05-2024 Discharge summary Author Sherif Benson [facility] September 26, 2023 8:43am Note Date/Time September 26, 2023 8:43 am [facility] Medical Records Department [address] [place] [address] Discharge Summary 09/26/23 0839 MR#: [id number] Acct: [id number] Name: JUDY REAGAN Rep #:[id number] : 1960 63 From: Sherif Pena PCP: Dr. Hernandez Mosley MD Status:ADM I N Location: [place] [address] Providers Date of Admission: 09/24/23 Date of Discharge: 09/26/23 Primary Care Physician: Dr. Hernandez Mosley MD Consultations 09/24/23 13:22 Consult: Gastroenterology Routine Consulting Provider: [facility] Reason for Consult: abdominal pain/Bleeding EMERGENT [...] Gram-negatives and anaerobes. Give Tylenol prn for coaq-dh-pwojalvz (level 1-5/10) pain or fever. Give Morphine [...] Resume regular diet - No repeat colonoscopy. 09/25: Patient is tolerating soft diet well. Prescription for Cipro and Flagyl given to complete a total of 1 week of antibiotics. Advised pvvk-tss-devkfss probiotics for 2 weeks. Patient requested tramadol [...] (Auto) 41.7 L, Lymph % (Auto) 37.1, [facility] % (Auto) 15.7 H, Eos % (Auto) [...] (Auto) 41.7 L, Lymph % (Auto) 37.1, [facility] % (Auto) 15.7 H, Eos % (Auto) [...] PO BID Qty: 0 0RF Rx Instructions: Paiz-mlc-bchrjih. Probiotic. At least for 2 week. ciprofloxacin [...] Self Care Charges/Coding Visit Charges Inpatient E&M: 86824 Disch Hosp >30min 09/26/23 0843 <Electronically signed by Sherif Benson MD> Cosigner Signature (if applicable): CC: Dr. Sherif Benson MD; Dr. Hernandez Mosley MD~ Signed [facility] Work Phone: 1(190) 972-198803-05-2024 Discharge summary Author Sherif Benson [facility] September 26, 2023 8:39am Note Date/Time September 26, 2023 8:23 am [facility] Medical Records Department [address] [place] [address] Instructions for Home/Discharge Instructions 09/26/23 0729 MR#: [id number] Acct: [id number] Name: JUDY REAGAN ANN Rep #:[id number] : 1960 63 From: Sherif Pena PCP: [...] PO BID Qty: 0 0RF Rx Instructions: Hdrq-ghk-dyacwzf. Probiotic. At least for 2 week. ciprofloxacin [...] Mosley Chi, MD [Primary Care Provider] - Friend,DO Stanley [Med Staff - Active Staff] - Within 3 Months Disposition Disposition (needs filled in before D/C Order can be placed): Home, Self Care 09/26/23 0839<Electronically signed by Sherif Benson MD>Sherif Benson MD CC: Dr. Jorge L May DO; Dr. Jessica Quintero DO; Dr. Hernandez Mosley MD ~ Signed [facility] Work Phone: 1(296) 521-883703-04-2024 Progress note Author Sherif Benson [facility] September 25, 2023 5:12pm Note Date/Time September 25, 2023 5:12 pm [facility] Medical Records Department [address] [place] [address] Progress Note - Hospitalist 09/25/23 1707 MR#: [id number] Acct: [id number] Name: JUDY REAGAN Rep #:[id number] : 1960 63 From: Sherif Pena PCP: Dr. Hernandez Mosley MD Status:ADM I N Location: [place] [address] Reason for Visit Reason for Visit: Diagnoses [...] % (Auto) 53.3, Lymph % (Auto) 29.0, [facility] % (Auto) 14.4 H, Eos % (Auto) [...] Gram-negatives and anaerobes. Give Tylenol prn for gwqt-yb-bmrrmzgd (level 1-5/10) pain or fever. Give Morphine [...] % (Auto) 53.3, Lymph % (Auto) 29.0, [facility] % (Auto) 14.4 H, Eos % (Auto) [...] Intact 79.8 Charges/Coding Visit Charges Inpatient E&M: 48965 Subs Hosp L2 09/25/23 1712 <Electronically signed by Sherif Benson MD> Cosigner Signature (if applicable): CC: ~ Signed [facility] Work Phone: 1(866) 860-778003-04-2024 Procedure [facility] 09-25-2023 Procedure [facility]03-04-2024 Procedure note [facility]03-04-2024 Procedure [facility] 09-24-2023 Consult note Author Stanley Godwin [facility] September 24, 2023 6:07pm Note Date/Time September 24, 2023 5:58 pm [facility] Medical Records Department [address] [place] [address] Consultation - GI 09/24/23 1754 MR#: [id number] Acct: [id number] Name: JUDY REAGAN ANN Rep #:[id number] : 1960 63 From: Stanley Godwin DO PCP: Dr. Hernandez Mosley MD Status:ADM I N Location: [place] [address] HPI Consult Data Date of Consult: 09/24/23 HPI Narrative Reason for Consultation: Diverticulitis HPI Narrative: JUDY REAGAN, is a 63 F who [id number] F with a past medical history of who essential hypertension, history of tobacco abuse, psoriatic arthritis, pseudogout, s/p partial Left knee replacement, history of iliotibial band syndrome of the LLE followed by Dr. Birch of orthopedic surgery and history ofrecently diagnosed acute diverticulitis diagnosed on CT as an outpatient on September 21, 2023. It was treated with oral Augmentin who presents to [facility] ERcomplaining of worsening abdominal pain. Mrs. [...] and an overnight stay in the hospital. [facility] Medical History (Updated 09/24/23 @ 18:03 [...] tablet,delayed release 40 mg PO DAILY GERD 01/17/23 [History Last Taken 06/21/23] ramipril 10 mg [...] % (Auto) 57.1, Lymph % (Auto) 27.2, [facility] % (Auto) 12.8 H, Eos % (Auto) [...] % (Auto) 50.3, Lymph % (Auto) 33.2, [facility] % (Auto) 14.2 H, Eos % (Auto) [...] Luis Antonio Uriostegui MD at 13:09 EST Reading Location ID and State: [facility] / [place] , Service support , Assessment & Plan Assessment/Plan (1) Acute [...] IBD SGI. Charges/Coding Visit Charges Inpatient E&M: 83750 Init Hosp L3 09/24/23 180 <Electronically signed by Stanley Godwin DO> Cosigner Signature (if applicable): CC: Dr. Jorge L May DO; Dr. Hernandez Mosley MD~ Signed [facility] Work Phone: 1(385) 353-335203-03-2024 Progress note Author Jessica Quintero [facility] September 24, 2023 1:30pm Note Date/Time September 24, 2023 7:53 am [facility] Medical Records Department [address] [place] [address] Progress Note - Hospitalist 09/24/23 0748 MR#: [id number] Acct: [id number] Name: JUDY REAGAN ANN Rep #:[id number] : 1960 63 From: Jessica Quintero DO PCP: Dr. Hernandez Mosley MD Status:ADM I N Location: [place] [address] Hospitalist Note Patient is a 63-year-old white female who presented to the emergency department at [facility] on 09/24/2023 with worsening abdominal pain. [...] ADDENDUM by Dr. Jessica Quintero DO on 03/03/[address] of the abdomen [...] Cosigner Signature (if applicable): cc: ~* Signed [facility] Work Phone: 1(673) 416-310203-03-2024 History and physical note Author Jorge L Davalos [facility] September 24, 2023 4:51am Note Date/Time September 24, 2023 3:28 am [facility] Medical Records Department [address] [place] [address] H&P Exam - Hospitalist 09/24/23 0309 MR#: [id number] Acct: [id number] Name: JUDY REAGAN ANN Rep #:[id number] : 1960 63 From: Jorge L Gunn DO PCP: Dr. Hernandez Mosley MD Status:ADM I N Location: [place] [address] HPI - General General Date of Admission: [...] treated with oral Augmentin who presents to [facility] ER complaining of worsening abdominal pain. [...] expected to be greater than 48 hours. [facility] Medical History Alcohol use Anxiety Back [...] % (Auto) 57.1, Lymph % (Auto) 27.2, [facility] % (Auto) 12.8 H, Eos % (Auto) [...] Gram-negatives and anaerobes. Give Tylenol prn for cdtc-wo-yfjbxifb (level 1-5/10) pain or fever. Give Morphine [...] 55 minutes. Charges/Coding Visit Charges Inpatient E&M: 85312 Init Hosp L2 09/24/23 0457 <Electronically signed by Jorge L May DO> Cosigner Signature (if applicable): CC: Dr. Jorge L May DO; Dr. Hernandez Mosley MD~ Signed [facility] Work Phone: 1([phone]) 622-942303-03-2024 Discharge summary Author Michael Lyman [facility] September 24, 2023 4:34am Note Date/Time September 24, 2023 3:12 am [facility] Medical Records Department [address] [place] [address] Emergency Department Summary 09/24/23 MR#: [id number] Acct: [id number] Name: JUDY REAGAN ANN Rep #:[id number] : 1960 63 From: Michael Lyman DO PCP: Dr. Hernandez Mosley MD Status:ADM I N Location: [place] [address] HPI History of Present Illness Chief Complaint: [...] controlled with outpatient therapy shepresents for evaluation [facility] Medical History Alcohol use Anxiety Back [...] % (Auto) 57.1 Lymph % (Auto) 27.2 [facility] % (Auto) 12.8 H Eos % (Auto) [...] treatment, Hypertension Disposition Disposition: Acute Care Hospital [facility] What to do if you have Problems For any increased pain, shortness of breath, bleeding, nausea or vomiting, chestpain, or any unexpected problems, contact your Primary Care Provider. Call [facility] ([phone]) or report to the closest Emergency Room. Call 911 if necessary. 09/24/23 0434 <Electronically signed by Michael Lyman DO> Cosigner Signature (if applicable): CC: Dr. Hernandez Mosley MD ~ Signed [facility] Work Phone: [phone]) 321-344411-29-2023 Discharge summary Author [facility] June 21, 2023 1:47pm Note Date/Time June 21, 2023 1:42pm [facility] Medical Records Department [address] [place] [address] Instructions for Home/Discharge Instructions 06/21/23 1341 MR#: [id number] Acct: [id number] Name: JUDY REAGAN Rep #:[id number] : 1960 63 From: Shabbir Birch DO [...] CC: Dr. Hernandez Mosley MD ~ Signed [facility] Work Phone: [phone]) 777-986311-29-2023 Procedure [facility] 06-21-2023 History and physical note Author [facility] June 21, 2023 11:27am Note Date/Time June 21, 2023 11:27am [facility] Medical Records Department [address] [place] [address] History & Physical Exam 06/21/23 1126 MR#: [id number] Acct: [id number] Name: JUDY REAGAN Rep #:[id number] : 1960 63 From: Shabbir Birch DO PCP: Dr. Hernandez Mosley MD Status:REG S SC Location: [place] [address] History and Physical Date of Admission: 06/21/23 [facility] [address] [place], [place] [address] OFFICE VISIT Date of Service: 05/31/23 MR#: [id number] Acct: [id number] Name: JUDY REAGAN Rep #: [id number] : 1960 Provider: Dr. Shabbir Birch DO Age/Sex: 63/F Location: [facility] Status: Signed Intake Vital Signs 04/21/2323:12 Height [...] made by me, Dr. Shabbir Birch, DO 05/31/23953. Part of today?s visit was documented by [...] or [address] Sai Casas through [facility]. She states that she had 2 arthroscopic left knee surgeries prior to partial knee. She has xrays in the system. She has pain over the ant/medial side of the left knee. She has tried knee bracing which causes increased knee pain. She has tried icing. She is currently not being treated with the Methotrexate until she establishes with a new information clerk cashier next year. She has a right TKA [...] Birch DO; Dr. Hernandez Mosley MD~ Signed [facility] Work Phone: 1([phone]) 259-391109-29-2023 Discharge summary Author Eder Lamas [facility] April 22, 2023 12:43am Note Date/Time April 21, 2023 11:24pm [facility] Medical Records Department [address] [place] [address] Emergency Department Summary 04/21/23 MR#: [id number] Acct: [id number] Name: JUDY REAGAN Rep #:[id number] : 1960 63 From: Eder Vieira PCP: [...] by her spine surgeon 2 days ago. [facility] Medical History Alcohol use Anxiety Back [...] clinician: N/A This note was generated with [employer] dictation software. It may contain incorrectwords, spelling, [...] your Primary Care Provider. Call [facility] ([phone]) or report to the closest Emergency Room. Call 911 if necessary. 04/22/2342 <Electronically signed by Eder Vieira> Cosigner Signature (if applicable): CC: Dr. Hernandez Mosley MD ~ Signed [facility] Work Phone: [phone]) 568-131203-25-[address] Hernández [facility] October 15, 2022 12:37pm Note Date/Time October 15, 2022 12: 37pm [facility] Medical Records Department [address] [place] [address] Progress Note 10/15/22 1234 MR#: [id number] Acct: [id number] Name: BRIENUJDY Rep #:[id number] : 1960 62 From: Lydia Hernández MD PCP: Dr. Hernandez Mosley MD Status:ADM I N Location: [place]817-7 Subjective Subjective Patient seen and examined. She [...] hospitalist standpoint Charges/Coding Visit Charges Inpatient E&M: 10303 Subs Hosp L2 10/15/22 1234 <Electronically signed by Lydia Hernández MD> Lydia Hernández MD Cosigner Signature (if applicable): CC: ~ Signed [facility] Work Phone: 1([phone]) 829-841503-24-2023 Progress note [facility] October 14, 2022 5:21pm Note Date/Time October 14, 2022 2:1 7pm [facility] Medical Records Department [address] [place] [address] Progress Note 10/14/22 1414 MR#: [id number] Acct: [id number] Name: JUDY REAGAN Rep #:[id number] : 1960 62 From: Lydia Hernández MD PCP: Dr. Hernandez Mosley MD Status:ADM I N Location: [place]3 GO443-3 Subjective Subjective Patient seen and examined. Still [...] 3650 / 3650 750 / 750 Balance -. / Lab / Micro Data Result Diagrams: 10/14/22 [...] (Auto) 71.5 H, Lymph % (Auto) 15.4 L,[facility] % (Auto) 10.3 H, Eos % (Auto) [...] primary team. Charges/Coding Visit Charges Inpatient E&M: 76712 Subs Hosp L2 10/14/22 1721 <Electronically signed by Lydia Hernández MD> Lydia Hernández MD Cosigner Signature (if applicable): CC: ~ Signed [facility] Work Phone: 1(912) 397-854203-23-[address] Damian [facility] October 13, 2022 4:56pm Note Date/Time October 13, 2022 4:5 6pm [facility] Medical Records Department [address] [place] [address] Progress Note - Orthopedic 10/13/22 1654 MR#: [id number] Acct: [id number] Name: JUDY REAGAN Rep #:[id number] : 1960 62 From: Reyes Farmer PCP: Dr. Hernandez Mosley MD Status:ADM I N Location: [place]089-7 Objective Data Objective Data Judy was seen [...] 3650 750 / 750 Balance 2124 / 2124 -2004.25 / -2004.25 -450 / -450 Lab / Micro Data Result Diagrams: 10/12/22 06:38 10/12/22 06:38 Labs: Laboratory Results - last 24 hr 10/13/22 01:06: COVID-19 ([place]) Not Detected 10/13/22 04:30: Urine Color Yellow, Urine Clarity Clear, Urine pH 7.0, Ur Specific [place] 1.010, Urine Protein 15 H, Urine Glucose [...] Signed: Villa Goetz MD at 6:19 EDT Reading Location ID and State: [facility] / [place] Tel , Service support , 10/13/22 1652 <Electronically signed by eRyes Damian DO> Cosigner Signature (if applicable): CC: ~ Signed [facility] Work Phone: 1(857) 523-483303-23-[address] Hernández [facility] October 13, 2022 4:13pm Note Date/Time October 13, 2022 11: 42am [facility] Medical Records Department [address] [place] [address] Progress Note 10/13/22 1136 MR#: [id number] Acct: [id number] Name: JUDY REAGAN Rep #:[id number] : 1960 62 From: Lydia Hernández MD PCP: Dr. Hernandez Mosley MD Status:ADM I N Location: [place] 317885-1 Subjective Subjective Patient seen and examined. SHe [...] 1350 / 1350 3650 / 3650 Balance 212 / 2124 - / 300 / 300 Lab / Micro Data Result Diagrams: 10/12/22 06:38 10/12/22 06:38 Labs: Laboratory Results - last 24 hr 10/13/22 01:06: COVID-19 (BROCK) Not Detected 10/13/22 04:30: Urine Color Yellow, Urine Clarity Clear, Urine pH 7.0, Ur Specific [place] 1.010, Urine Protein 15 H, Urine Glucose [...] Signed: Villa Goetz MD at 6:19 EDT Reading Location ID and State: [facility] / [place] Tel , Service support , Physical Exam [...] primary team. Charges/Coding Visit Charges Inpatient E&M: 08478 Subs Hosp L2 10/13/22 1613 <Electronically signed by Lydia Hernández MD> Lydia Hernández MD Cosigner Signature (if applicable): CC: ~ Signed [facility] Work Phone: 1(982) 811-708603-23-[address] Wolfe [facility] October 13, 2022 4:09am Note Date/Time October 13, 2022 4:0 9am [facility] Medical Records Department [address] [place] [address] Progress Note - Hospitalist 10/13/22 0408 MR#: [id number] Acct: [id number] Name: JUDY REAGAN Rep #:[id number] : 1960 62 From: Liza Wolfe MD PCP: Dr. Hernandez Mosley MD Status:ADM I N Location: [place] [address] Hospitalist Note Patient with fever overnight, improved with tylenol administration. COVID obtained, negative. Will request CXR this AM and UCx/UA to further assess. 10/13/22 0409 <Electronically signed by Liza Wolfe MD> Cosigner Signature (if applicable): CC: ~ Signed [facility] Work Phone: 1(777) 264-430203-22-[address] Hernández [facility] October 12, 2022 4:17pm Note Date/Time October 12, 2022 1:1 3pm [facility] Medical Records Department [address] [place] [address] Progress Note 10/12/22 1306 MR#: [id number] Acct: [id number] Name: JUDY REAGAN Rep #:[id number] : 1960 62 From: Lydia Hernández MD PCP: Dr. Hernandez Mosley MD Status:ADM I N Location: [place] [address] Subjective Subjective Patient seen and examined. She [...] (Auto) 71.2 H, Lymph % (Auto) 15.2 L,[facility] % (Auto) 12.8 H, Eos % (Auto) [...] 14:44 EDT Reading Location ID and State: [facility] / [place] Tel , Service support , Physical Exam [...] primary team. Charges/Coding Visit Charges Inpatient E&M: 81042 Subs Hosp L2 10/12/22 1617 <Electronically signed by Lydia Hernández MD> Lydia Hernández MD Cosigner Signature (if applicable): CC: ~ Signed [facility] Work Phone: 1(787) 228-882103-21-[address] Keller [facility] October 11, 2022 7:33pm Note Date/Time October 11, 2022 7:2 3pm [facility] Medical Records Department [address] [place] [address] Progress Note - Hospitalist 10/11/221915 MR#: [id number] Acct: [id number] Name: JUDY REAGAN Rep #:[id number] : 1960 62 From: Jesse lobo MD PCP: Dr. Hernandez Mosley MD Status:ADM I N Location: [place] [address] Reason for Visit Reason for Visit: Diagnoses [...] DVT: SCDs Charges/Coding Visit Charges Inpatient E&M: 44490 Subs Hosp L3 10/11/221932 <Electronically signed by Jesse Keller MD> Cosigner Signature (if applicable): CC: ~ Signed [facility] Work Phone: 1(178) 697-764103-21-2023 Procedure [facility] 10-11-2022 Procedure [facility]03-21-2023 Procedure note [facility]03-20-2023 History and physical note Author Dr. Damian [facility] October 10, 2022 3:22pm Note Date/Time October 10, 2022 10: 36am [facility] Medical Records Department [address] [place] [address] History & Physical Exam 10/10/22 1035 MR#: [id number] Acct: [id number] Name: JUDY REAGAN Rep #:[id number] : 1960 62 From: Reyes Farmer PCP: Dr. Hernandez Mosley MD Status:PRE I N Location: [facility] 10/10/22 1522 <Electronically signed by Reyes Damian DO> Cosigner Signature (if applicable): CC: Dr. Reyes Damian DO; Dr. Hernandez Mosley MD~ Signed [facility] Work Phone: 1(934) 317-858403-20-2023 History and physical note Author Dr. Damian [facility] October 10, 2022 10:35am Note Date/Time October 10, 2022 10: 35am [facility] Medical Records Department [address] [place] [address] History & Physical Exam 10/10/22 1034 MR#: [id number] Acct: [id number] Name: JUDY REAGAN Rep #:[id number] : 1960 62 From: Reyes Farmer PCP: Dr. Hernandez Mosley MD Status:PRE I N Location: [facility] History and Physical Addendum MR#: [id number] Acct: [id number] Name:? JUDY REAGAN Rep #: [id number] : 1960 ? ? Provider: Dr. Reyes Damian DO Age/Sex:? 62/F ? ? [place] [facility] [place]: Signed Intake Vital Signs ? 12/23/2207:21 [...] History?(Updated 06/24/22 @ 11:[address] Reyes Damian DO) Osteoarthritis Physical exam, pre-employment Surgical History? [...] the decisions made by me, Dr. Reyes Damian DO JUDY REAGAN is a 62 year [...] Damian DO; Dr. Hernandez Mosley MD~ Signed [facility] Work Phone: 1(695) 754-631701-30-2023 Miscellaneous Notes* Telephone Encounter - Marzena Elise RN - 08/22/2022 2:30 PM EST Patient left voicemail 08/22/2022 at 0851 Patient contacted at this time Patient requesting Dr. Bower's office to fax medical records to [employer] Patient's MRI is currently being denied and patient filed an expedited appeal Patient requesting records to be faxed to [phone] Case# [id number] Records faxed at this time per patient's request [facility] Miscellaneous Notes* Telephone Encounter - Rosa Greenberg RN - 05/19/2022 11:29 AM EDT Patient notified of surgical date. Follow up scheduled. Surgical confirmation letter sent to patient via [employer] message. * Telephone Encounter - Mavis Russell LPN - 05/19/2022 11:22 AM EDT Patient called. Verified name and date of . Transferred to nurseKitty, in podiatry. Mavis Russell LPN * Telephone Encounter - Rosa Greenberg RN - 05/19/2022 11:10 AM EDT Left patient Vm to contact office and give surgical date. Patient scheduled for XR guided injectionof R 1st MTPJ on 06/06/22 at [facility]. Patient will need a month follow up post injection scheduled when she returns call. documented in this [facility]Tr[facility]10-26-2022 NoteHNO ID: [id number] Author: RT Jayro(R) Service: ? Author Type: [...] BY: RT Jayro(R) May 18, 2022 5:[address] [facility]10-26-2022 NoteHNO ID: [id number] Author: Yumiko Welsh Service: ? Author Type: [...] as needed. Currently not taking while on [place] for pain amLODIPine (NORVASC) 5 mg tablet [...] < 5 seconds to (more content not included)...[facility]10-26-2022 NoteHNO ID: [id number] Author: Rosa Greenberg RN Service: ? Author [...] [employer] shoes and states they have also helped.[facility]10-26-20[facility] History of Present illness Narrative * [...] Hospital10-26-2022 History of Present illness Narrative* Yumiko Cheryesperanza - 05/18/2022 4:43 PM EDT Images from [...] as needed. Currently not taking while on [place] for pain amLODIPine (NORVASC) 5 mg tablet [...] sedation. Yumiko Welsh DPM Podiatry [address] [facility] [address] Dept: [phone] Dept * Rosa Greenberg RN - 05/18/2022 [...] pain. Please call patient back. Thank you. Judy#[phone] documented in this [facility]Tr[facility]10-10-2022 NoteHNO ID: [id number] Author: Jesus Alberto Harris APRN.[employer]URITY AGENT Service: ? Author Type: Nurse Practitioner Type: [...] which included preparing to see the patient, [id number] patient care, completing clinical documentation, obtaining and/or reviewing separately obtained history, performing a medically appropriate examination, counseling and educating the patient/family/caregiver, ordering medications, tests, or procedures, communicating with other HCPs (not separately reported), independently interpreting results (not separately reported), communicating results to the patient/family/caregiver, and care coordination (not separately reported). Jesus Alberto Harris APRN.[facility]10-10-2022 NoteHNO ID: [id number] Author: KAROLYN Wagner Service: Radiology Author Type: [...] BY: KAROLYN Wagner May 02, 2022 9:28 AMKeenan [facility] [id number] History of Present illness Narrative* KAROLYN Wagner [...] patient calls back. Thanks documented in this [facility]10-03-2022 Miscellaneous Notes* Telephone Encounter - Yessenia Whyte [...] Elias Harris or Philip Castillo in our [place] office to begin evaluation or a work up for a "painful" prior replacement. She should be able to [...] has had a partial replacement done at [facility] several years ago. She is concerned [...] in this [facility]Tr[facility]02-08-2022 NoteHNO ID: [id number] Author: Yumiko Welsh Service: ? Author Type: [...] that when she walks, she has a "god awful" pain. She feels the joint is stuck. [...] as needed. Currently not taking while on [place] for pain - amLODIPine (NORVASC) 5 mg [...] performed. ? cc o (more content not included)...[facility] 06-13-2016 History of Past illness Narrative* [...] of this encounter (statuses as of 05/28/2023) [facility] note Author Amandeep Madrigal [facility] Note Date/Time October 07, 2024 11: 48am Medical Records Department [address] [place] [address] Pre-Anesthesia Evaluation 10/07/24 1141 MR#: [id number] Acct: [id number] Name: JUDY REAGAN Rep #:[id number] : 1960 64 From: Amandeep Madrigal MD PCP: Dr. Hernandez Mosley MD Status:REG S DC Y Race: C Location: [place] [address]-1 ASA Classification* ASA Classification ASA Classification: 2 [...] steroid inj Anesthesia History Anesthesia History - potato spotter: Anesthesia History - potato spotter Hx Hospitalization No 10/04/24 14:57 Any Problems [...] take am of surgery PONV PONV - potato spotter: PONV - potato spotter Female Yes 10/04/24 14:57 HX of Motion [...] 10/07/24 11:21 Respiratory Assessment Respiratory Assessment - potato spotter: Respiratory Tract Infection Hx - potato spotter Hx Respiratory Tract Infection No 10/04/24 14:57 STOP Sleep Apnea STOP Sleep Apnea - potato spotter: STOP Sleep Apnea - potato spotter Hx Hypertension Yes: CONTROLLED WITH MED 10/04/24 [...] Tobacco Use History Tobacco Use History - potato spotter: Tobacco Use History - potato spotter Tobacco Use Smoking Status Former smoker 10/04/24 14:57 Hx Tobacco Use No 10/04/24 14:57 Years Smoking Packs Smoked per Day Smoking Cessation Date was Yes - quit smoking within 15 10/04/24 14:57 within the last 15 years years Hx Smoking Cessation Date 07/24/17 10/04/24 14:57 Hx Smoking Cessation No 10/04/24 14:57 Counseling Hematologic Medial History Hematologic Hx - potato spotter: Hematologic 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 Hernandez Mosley MD Status:REG S DC Y Race: C Location: [place] [address] Anesthesia: Postop Eval I Current Vital Signs [...] 10/07/24 1209 <Electronically signed by Montse lindsay CRNA> Date _ Montse Nicole [employer] Cosigner Signature: Date CC: ~ Signed [facility] Work Phone: Consult note Author Yeimy Duggan [facility] Note Date/Time October 07, 2024 12: 55pm Medical Records Department [address] [place] [address] Anesthesia Postop Eval II 10/07/24 1226 MR#: [id number] Acct: [id number] Name: JUDY REAGAN ANN Rep #:[id number] : 1960 64 From: Yeimy Duggan PCP: Dr. Hernandez Mosley MD Status:REG S DC Y Race: C Location: [place] [address]- Anesthesia Postop Eval I Sum Postop Eval Completion status Anesthesia document: Postop Eval 1 completed: Yes Anesthesia Postop Eval I Summary Anesthesia Postop Eval I Summary: Anesthesia Postop Eval I: Assessment Summary Airway patent Yes 10/07/24 12:09 CASH[employer] TICK[employer] SELLING.LMIL Spontaneous unlabored Yes 10/07/24 12:09 [employer].LMIL respirations Mental status Awake 10/07/24 12:09 [employer].LMIL nausea No 10/07/24 12:09 [employer] T[employer] SELL[employer].LMIL Vomiting No 10/07/24 12:09 [employer] T[employer] SELL[employer].LMIL Anesthesia Postop Eval I: Fluid Summary Crystalloid volume administer 10 10/07/24 12:09 CASHIER TICK[employer] SELLING.LMIL (ml) Colloids volume administered ( ml) Blood Product volume administered (ml) Total IV fluid infused 10 10/07/24 12:09 CASHIER TICK[employer] SELLING.LMIL Anesthesia Postop Eval I: Summary Notes Anesthesia Complication No 10/07/24 12:09 CASHIER TICK[employer] SELLING.LMIL Anesthesia Complication Comment: Post-operative progress note Anesthesia: Postop Eval II Evaluation Mental status: Awake Pain Level: 3 nausea: No Vomiting: No 10/07/24 6561 <Electronically signed by Yeimy chirinos> Date _ Yeimy Arzate Signature: Date CC: ~ Signed [facility] Work Phone: Consult note Author Pardeep Dsouza [facility] Note Date/Time March 10, 2025 8: 06am Medical Records Department [address] [place] [address] Pre-Anesthesia Evaluation 03/10/25 0802 MR#: [id number] Acct: [id number] Name: JUDY REAGAN Rep #:[id number] : 1960 65 From: Pardeep Dsouza CRNA PCP: Dr. Hernandez Mosley MD Status:REG S DC Y Race: C Location: [place] [address]- ASA Classification* ASA Classification ASA Classification: 2 [...] L5 S1 Anesthesia History Anesthesia History - potato spotter: Anesthesia History - potato spotter Hx Hospitalization No 03/06/25 11:47 Any Problems [...] Any additional information?: No PONV PONV - potato spotter: PONV - potato spotter Female Yes 03/06/25 11:47 HX of Motion [...] 03/10/25 07:32 Respiratory Assessment Respiratory Assessment - potato spotter: Respiratory Tract Infection Hx - potato spotter Hx Respiratory Tract Infection No 03/06/25 11:47 Any additional information?: No STOP Sleep Apnea STOP Sleep Apnea - potato spotter: STOP Sleep Apnea - potato spotter Hx Hypertension Yes: CONTROLLED WITH MED 03/06/25 [...] Tobacco Use History Tobacco Use History - potato spotter: Tobacco Use History - potato spotter Tobacco Use Smoking Status Former smoker 03/06/25 11:47 Hx Tobacco Use No 03/06/25 11:47 Years Smoking Packs Smoked per Day Smoking Cessation Date was Yes - quit smoking within 15 03/06/25 11:47 within the last 15 years years Hx Smoking Cessation Date 07/24/17 03/06/25 11:47 Hx Smoking Cessation No 03/06/25 11:47 Counseling Any additional information?: No Hematologic Medial History Hematologic Hx - potato spotter: Hematologic Medical Hx - metal handler Hx of Blood Transfusion Yes 03/06/25 11:47 [...] information?: No /Reproduction History /Reproductive History - potato spotter: /Reproductive Hx- potato spotter Hx Now Gestational Age (in weeks): EDC: [...] no additional complaints, except as documented. 03/10/25805 <Electronically signed by Pardeep rutledge CRNA> Date _ Pardeep Dsouza CRNA Cosigner Signature: Date CC: ~ Signed [facility] Work Phone: Discharge summary Author Dr. Damian [facility] October 15, 2022 2:00pm Note Date/Time October 15, 2022 2:0 0pm [facility] Medical Records Department [address] [place] [address] Instructions for Home/Discharge Instructions 10/15/22 1358 MR#: [id number] Acct: [id number] Name: JUDY REAGAN Rep #:[id number] : 1960 62 From: Reyes Farmer PCP: [...] MD; Dr. Hernandez Mosley MD ~ Signed [facility] Work Phone: Discharge summary Author Dr. Damian [facility] October 15, 2022 2:03pm Note Date/Time October 15, 2022 2:0 3pm [facility] Medical Records Department [address] [place] [address] Discharge Summary 10/15/22 1400 MR#: [id number] Acct: [id number] Name: JUDY REAGAN Rep #:[id number] : 1960 62 From: Reyes Farmer PCP: Dr. Hernandez Mosley MD Status:ADM I N [place] [facility] [place] Providers Date of Admission: 10/11/22 Primary Care [...] Damian DO; Dr. Hernandez Mosley MD~ Signed [facility] Work Phone: Discharge summary Author Michael [facility] September 24, 2023 4:34am Note Date/Time September 24, 2023 3:12 am [facility] Medical Records Department [address] [place] [address] Emergency Department Summary 09/24/23 MR#: [id number] Acct: [id number] Name: JUDY REAGAN ANN Rep #:[id number] : 1960 63 From: Michael Lyman DO PCP: Dr. Hernandez Mosley MD Status:ADM I N Location: [address] History of Present Illness Chief [...] controlled with outpatient therapy shepresents for evaluation PFSH [facility] Medical History Alcohol use Anxiety Back [...] % (Auto) 57.1 Lymph % (Auto) 27.2 [facility] % (Auto) 12.8 H Eos % (Auto) [...] outpatient treatment, Hypertension Disposition Disposition: Acute Care [facility] What to do if you have Problems For any increased pain, shortness of breath, bleeding, nausea or vomiting, chestpain, or any unexpected problems, contact your Primary Care Provider. Call [facility] ([phone]) or report to the closest Emergency Room. Call 911 if necessary. 09/24/23 0434 <Electronically signed by Michael Lyman DO> Cosigner Signature (if applicable): CC: Dr. Hernandez Mosley MD ~ Signed [facility] Work Phone: evaluation noteNo assessment information available [facility] Work Phone: Evaluation note* Diagnosis Pain in both knees, unspecified chronicity- Primary documented in this encounter [facility] note* Diagnosis Pain in both knees, unspecified chronicity documented in this encounter [facility] note* Diagnosis Hallux limitus, acquired, unspecified laterality- Primary documented in this encounter [facility] note* Diagnosis Acquired hallux limitus of right foot- Primary Acquired hallux limitus of right foot documented in this encounter [facility] note* Diagnosis Onset Date Resolution Status DDD (degenerative disc disease), lumbar acute Degeneration of L4-L5 intervertebral disc acute [facility] Work Phone: Evaluation note* Diagnosis Onset Date Resolution Status DDD (degenerative disc disease), lumbar acute Degeneration of L4-L5 intervertebral disc acute Degeneration of L4-L5 intervertebral disc acute [facility] Work Phone: Evaluation note* Diagnosis Onset Date Resolution Status DDD (degenerative disc disease), lumbar acute Degeneration of L4-L5 intervertebral disc acute Degeneration of L4-L5 intervertebral disc acute DDD (degenerative disc disease), lumbar acute Essential hypertension chron ic [facility] Work Phone: Evaluation note* Diagnosis Onset Date Resolution Status S/P lumbar fusion acute S/P lumbar fusion acute Trochanteric bursitis of left hip acute [facility] Work Phone: Evaluation note* Diagnosis Hallux limitus, acquired, unspecified laterality documented [facility]* Diagnosis Onset Date Resolution Status S/P lumbar fusion acute Trochanteric bursitis of left hip acute S/P lumbar fusion acute Status post left partial knee replacement acute Trochanteric bursitis of left hip acute History of arthroplasty of knee acute Internal derangement of knee joint acute [facility] Work Phone: Evaluation note* Diagnosis Onset Date Resolution Status History of arthroplasty of knee acute Internal derangement of knee joint acute Pseudogout acute Orthopedic aftercare noneact adeel Iliotibial band syndrome affecting left lower leg acute Orthopedic aftercare acute Pseudogout acute Iliotibial band syndrome affecting left lower leg acute Orthopedic aftercare acute Pseudogout acute [facility] Work Phone: Evaluation note* Diagnosis Onset Date Resolution Status History of arthroplasty of knee acute Internal derangement of knee joint acute Pseudogout acute Orthopedic aftercare noneact adeel Iliotibial band syndrome affecting left lower leg acute Orthopedic aftercare acute Pseudogout acute Iliotibial band syndrome affecting left lower leg acute Orthopedic aftercare acute Pseudogout acute Acute diverticulitis acute Failure of outpatient treatment acute Hypertension [facility] Work Phone: Evaluation note* Diagnosis Onset [...] outpatient treatment acute GI bleed acute Hypertension [facility] Work Phone: Evaluation note* Diagnosis Onset Date Resolution Status Pseudogout acute Orthopedic aftercare noneact adele Iliotibial band syndrome affecting left lower leg acute Orthopedic aftercare acute Pseudogout acute Iliotibial band syndrome affecting left lower leg acute Orthopedic aftercare acute Pseudogout acute Acute diverticulitis acute Failure of outpatient treatment acute Hypertension chronic GI bleed resolved Acute diverticulitis acute Crohn's disease acute [facility] Work Phone: Evaluation note* Diagnosis Onset [...] lower leg acute Pseudogout acute Psoriatic arthritis [facility] Work Phone: Evaluation note* Diagnosis Onset Date Resolution Status S/P lumbar fusion acute Trochanteric bursitis of left hip acute S/P lumbar fusion acute Status post left partial knee replacement acute Trochanteric bursitis of left hip acute History of arthroplasty of knee acute Internal derangement of knee joint acute Pseudogout acute Orthopedic aftercare noneact adeel [facility] Work Phone: Evaluation note* Diagnosis Onset Date Resolution Status Admit Date Crohn's disease acute March 182024 9:51am [facility] Work Phone: History and physical note Author Jennifer Dunne [facility] Note Date/Time March 25, 2025 6:47pm [facility] Medical Records Department [address] [facility] [place] [address] H&P Exam - Hospitalist 03/25/25 1840 MR#: [id number] Acct: [id number] Name: JUDY REAGAN Rep #:[id number] : 1960 65 From: Jennifer Dunne MD PCP: Dr. Hernandez Mosley MD Status:ADM I N [place] [facility] HPI - General General Date of Admission: 03/25/25 Date of Service: 03/25/25 Chief Complaint: Lower abdominal pain HPI Narrative JUDY REAGAN, is a 65-year-old female with a history of GERD, restless leg syndrome,depression, Crohn's disease presented [facility] ED 03/25/2025 with diffuse lower abdominal pain worse on the right that started yesterday gradually. She was placed on Cipro and Flagyl and symptoms worsened so she cameto the ED. Does follow with Dr. Godwin and was diagnosed with Crohn's disease, she [...] around to her back, denies epigastric pain PFSH Medical History Pain History of Crohn's disease [...] 80.0 H, Lymph % (Auto) 7.6 L, [facility] % (Auto) 11.4 H, Eos % (Auto) [...] Albumin 4.5, Globulin 2.9, Albumin/Globulin Ratio 1.5, [id number] 03/25/25 16:24: Urine Color Yellow, Urine Clarity Clear, Urine pH 7.0, Ur Specific [place] 1.005, Urine Protein Negative, Urine Glucose (UA) Normal, UrineKetones Negative, Urine Occult Blood Negative, Urine Nitrite Negative, Urine Bilirubin Negative, Urine Urobilinogen Normal, Ur Leukocyte Esterase Negative Imaging Radiology Impression Abdomen/Pelvis CT 03/25/25 16:12 IMPRESSION: 1. Acute uncomplicated sigmoid diverticulitis. 2. Diffuse hepatic steatosis. Reading Location: [facility] [facility] Assessment & Plan Assessment/Plan (1) Acute [...] Dunne MD Charges/Coding Visit Charges Inpatient E&M: 77170 Init Hosp L1 03/25/25 3525 <Electronically signed by Jennifer Dunne MD> Cosigner Signature (if applicable): CC: Dr. Jennifer Dunne MD; Dr. Hernandez Mosley MD~ Signed [facility] Work Phone: Hospital Discharge instructions Additional Instructions Left shoulder and left hip x-ray negative. Continue your tramadol at home. Muscle relaxer as needed. Follow-up with your doctor.[facility] Work Phone: Hospital Discharge instructionsAdditional Instructions Date of Discharge: 03/29/25[facility] Work Phone: Reason for referral (narrative)* Diagnostic Procedure Only (Routine) - Pending Review Specialty Diagnoses / Procedures Referred By Rigo t Referred To Contact XR IMAGING Diagnoses Pain in both knees, unspecified chronicity Procedures XR KNEE POST OP 3V AP/LAT/MERCHANT BILATERAL RADIOLOGIC EXAMINATION KNEE 3 VIEWS Jesus Alberto Harris APRN.CNP [address] [place] [address] Xr Imaging Referral ID Status Reason Start Date Expiration Date Visits Requested Visits Authorized [id number] Pending Review Auto-Generat ed Referral 04/27/2022 05/26/[address] [facility] for referral (narrative)* Diagnostic Procedure Only (Routine) - Closed Specialty Diagnoses / Procedures Referred By Contac t Referred To Contact XR IMAGING Diagnoses Pain in both knees, unspecified chronicity Procedures XR KNEE POST OP 3V AP/LAT/MERCHANT BILATERAL RADIOLOGIC EXAMINATION KNEE 3 VIEWS Jesus Alberto Harris APRN.CNP [address] [place] [address] Xr Imaging Referral ID Status Reason Start Date Expiration Date V isits Requested Visits Authorized [id number] Closed Auto-Generate d Referral 04/27/2022 05/26/[address] [facility] for referral (narrative)* Diagnostic Procedure Only (Routine) - Closed Specialty Diagnoses / Procedures Referred By Contac t Referred To Contact XR IMAGING Diagnoses Hallux limitus, acquired, unspecified laterality Procedures XR FOOT GENERAL 3V AP/LAT/OBL RIGHT RADEX FOOT COMPLETE MINIMUM 3 [place] [address] Xr Imaging Referral ID Status Reason Start Date Expiration Date V isits Requested Visits Authorized [id number] Closed Auto-Generate d Referral 05/18/2022 06/17/[address] [facility] for referral (narrative)* Diagnostic Procedure Only (Routine) - Closed Specialty Diagnoses / Procedures Referred By Contac t Referred To Contact XR IMAGING Diagnoses Hallux limitus, acquired, unspecified laterality Procedures XR FOOT GENERAL 3V AP/LAT/OBL RIGHT RADEX FOOT COMPLETE MINIMUM 3 VIEWS Yumiko Welsh [address] [place] [address] [place] [address] Referral ID Status Reason Start Date Expiration Date V isits Requested Visits Authorized [id number] Closed Auto-Generate d Referral 05/18/2022 06/17/[address] [facility] for referral (narrative)No reason for referral information availableWMercy Health Work Phone: Reason for visit Narrative* Diagnostic Procedure Only (Routine) - Closed Specialty Diagnoses / Procedures Referred By Contac t Referred To Contact XR IMAGING Diagnoses Pain in both knees, unspecified chronicity Procedures XR KNEE POST OP 3V AP/LAT/MERCHANT BILATERAL RADIOLOGIC EXAMINATION KNEE 3 VIEWS Jesus Alberto Harris APRN.[address] [address] Xr Imaging Referral ID Status Reason Start Date Expiration Date V isits Requested Visits Authorized [id number] Closed Auto-Generate d Referral 04/27/2022 05/26/[address] [facility] for visit Narrative* Diagnostic Procedure Only (Routine) - Closed Specialty Diagnoses / Procedures Referred By Contac t Referred To Contact XR IMAGING Diagnoses Hallux limitus, acquired, unspecified laterality Procedures XR FOOT GENERAL 3V AP/LAT/OBL RIGHT RADEX FOOT COMPLETE MINIMUM 3 VIEWS Yumiko Welsh [address] [place] [address] [place] [address] Referral ID Status Reason Start Date Expiration Date V isits Requested Visits Authorized [id number] Closed Auto-Generate d Referral 05/18/2022 06/17/2023 1 1 [facility] Summary Purpose Family History No Family History Records Found Relationship Condition Age at Onset Recorded Date/T jae Not Specified Coronary artery disease Unknown Cardiac disease Unknown Malignant neoplasm of breast Unknown Hypertension Unknown Advance Directives No Advanced Directives Records Found Advance Directive Response Recorded Date/ Time Advance Directives No May 11:51pm Living Will Yes January 16, 2020 10:39pm Power of Square Shear Operator Yes January 15 10:39pm Advance Directive Response Recorded Date/ Time Advance Directives No May 11:51pm Living Will Yes December 22, 2021 8 :51am Power of Square Shear Operator Yes December 22, 2021 8:51am Advance Directive Response Recorded Date/ Time Advance Directives No May 11:51pm Living Will Yes December 22, 2021 8 :51am Power of Square Shear Operator Yes December 22, 2021 8:51am Name of Medical Power of Square Shear Operator DASIA REAGAN December 22, 2021 8:51am Documents on File Type Date Recorded Patient Intern Retail Expl anation Advance Directive(s) 01/23/2014 11:01 AM Documents on File Type Date Recorded Patient Intern Retail Expl anation Advance Directive(s) 01/23/2014 11:01 AM Advance Directive Response Recorded Date/ Time Advance Directives No May 10:51pm Living Will Yes August 09 11:08am Power of Square Shear Operator Yes August 09, 2022 11:08am Advance Directive Response Recorded Date/ Time Name of Medical Power of Square Shear Operator DASIA August 09, 2022 11:08am Advance Directives No May 10:51pm Living Will Yes August 09 11:08am Power of Square Shear Operator Yes August 09, 2022 11:08am Advance Directive Response Recorded Date/ Time Name of Medical Power of Square Shear Operator DASIA August 09, 2022 11:08am Advance Directives No May 10:51pm Living Will Yes September 27, 2022 1:56pm Power of Square Shear Operator Yes September 27 1:56pm Advance Directive Response Recorded Date/ Time Name of Medical Power of Square Shear Operator DASIA August 09, 2022 12:08pm Name of Medical Power of Square Shear Operator Dasia Bossofya October 11, 2022 5:54pm Advance Directives No May 11:51pm Living Will Yes October 11, 2022 5:54pm Power of Square Shear Operator Yes October 11 5:54pm Advance Directive Response Recorded Date/ Time Name of Medical Power of Square Shear Operator Dasia April 21, 2023 11:18pm Advance Directives No May 11:51pm Living Will Yes April 21, 2023 11:18pm Power of Square Shear Operator Yes March 11:18pm Advance Directive Response Recorded Date/ Time Name of Medical Power of Square Shear Operator Dasia April 21, 2023 10:18pm Name of Medical Power of Square Shear Operator SPOUSE June 16, 2023 1:12pm Advance Directives No May 10:51pm Living Will Yes June 16, 023 1:12pm Power of Square Shear Operator Yes June 16, 2023 1:12pm Advance Directive Response Recorded Date/ Time Name of Medical Power of Square Shear Operator SPOUSE June 16, 2023 1:12pm Advance Directives No May 10:51pm Living Will Yes June 16, 023 1:12pm Power of Square Shear Operator Yes June 16, 2023 1:12pm Advance Directive Response Recorded Date/ Time Name of Medical Power of Square Shear Operator SPOUSE June 16, 2023 1:12pm Advance Directives No May 10:51pm Living Will Yes September 24, 2023 12:53am Power of Square Shear Operator No September 23 12:53am Advance Directive Response Recorded Date/ Time Name of Medical Power of Square Shear Operator SPOUSE June 16, 2023 1:12pm Name of Medical Power of Square Shear Operator Dasia Reagan September 24, 2023 4:34am Advance Directives No May 10:51pm Living Will Yes September 24, 2023 4:34am Power of Square Shear Operator Yes September 23 4:34am Advance Directive Response Recorded Date/ Time Name of Medical Power of Square Shear Operator Dasia Reagan September 24, 2023 5:34am Advance Directives No May 11:51pm Living Will Yes September 24, 2023 5:34am Power of Square Shear Operator Yes September 23 5:34am Advance Directive Response Recorded Date/ Time Name of Medical Power of Square Shear Operator SPOUSE November 09, 2023 3:23pm Advance Directives No May 11:51pm Living Will Yes November 09, 2023 3:23pm Power of Square Shear Operator Yes November 08 3:23pm Name of Medical Power of Square Shear Operator Dasia Reagan September 24, 2023 5:34am Advance Directive Response Recorded Date/ Time Living Will No October 04, 2024 2:57pm Power of Square Shear Operator No October 04 2:57pm Advance Directives No November 24, 2023 2:04pm Advance Directive Response Recorded Date/ Time Living Will No October 04, 2024 2:57pm Do you have a Healthcare Power of Square Shear Operator? No October 04, 2024 2:57pm Advance Directives No November 24, 2023 2:04pm Advance Directive Response Recorded Date/ Time Do you have a Healthcare Power of Square Shear Operator? Yes March 06, 2025 11:47am Advance Directives No November 24, 2023 2:04pm Advance Directive Response Recorded Date/ Time Do you have a Healthcare Power of Square Shear Operator? Yes March 06, 2025 11:47am Do you have a Healthcare Power of Square Shear Operator? Yes March 25, 2025 3:12pm Advance Directives No November 24, 2023 2:04pm Advance Directive Response Recorded Date/ Time Do you have a Healthcare Power of Square Shear Operator? Yes March 06, 2025 11:47am Do you have a Healthcare Power of Square Shear Operator? No March 25, 2025 7:14pm Advance Directives No November 24, 2023 2:04pm [...] LEFT OFFICE February 10:45am [facility] 6:40pm Reason for Visit Admit Date Crohn's disease March 18, 2025 9: 51am Acute diverticulitis March 25, 2025 6:40pm Crohn's disease March 25, 2025 6:40pm Intractable abdominal pain March 6:40pm Chief Complaint Admit Date RIGHT LUMBAR TRANSFORAMINAL EPIDURAL [place] INJEC March 10, 2025 7:12am 4 M FU March 18, 2025 9: 51am INT LABS, PT JUST LEFT OFFICE February 10:45am ACUTE UNCOMPLICATED DIVERTICULITIS [facility] 2024 6:40pm ACUTE UNCOMPLICATED DIVERTICULITIS [facility] 2024 7:20am ACUTE UNCOMPLICATED DIVERTICULITIS [facility] 2024 3:03pm ACUTE UNCOMPLICATED DIVERTICULITIS [facility] 2024 6:50am ACUTE UNCOMPLICATED DIVERTICULITIS [facility] 2024 7:11am ACUTE UNCOMPLICATED DIVERTICULITIS [facility] 2024 7:17am Reason for Visit Admit Date Crohn's disease March 18, 2025 9: 51am Acute diverticulitis March 25, 2025 6:40pm Crohn's disease March 25, 2025 6:40pm Diverticulitis of sigmoid colon [facility] 2024 6:40pm Intractable abdominal pain March 6:40pm Chief Complaint Admit Date RIGHT LUMBAR TRANSFORAMINAL EPIDURAL [place] INJEC March 10, 2025 7:12am 4 M FU March 18, 2025 9: 51am INT LABS, PT JUST LEFT OFFICE February 10:45am ACUTE UNCOMPLIC[facility] 2024 6:40pm ACUTE UNCOMPLICATED DIVERTICULITIS [facility] 2024 7:20am ACUTE UNCOMPLICATED DIVERTICULITIS [facility] 2024 3:03pm ACUTE UNCOMPLICATED DIVERTICULITIS [facility] 2024 6:50am ACUTE UNCOMPLICATED DIVERTICULITIS [facility] 2024 7:11am ACUTE UNCOMPLICATED DIVERTICULITIS [facility] 2024 7:17am HOSP FU April 17, 2025 2:36pm Reason for Visit Admit Date Crohn's disease March 18, 2025 9: 51am Crohn's disease March 25, 2025 6:40pm Acute diverticulitis March 25, 2025 6:40pm Diverticulitis of sigmoid colon [facility] 2024 6:40pm Intractable abdominal pain March 6:40pm Acute diverticulitis April 17 2:36pm Additional Source Comments INFORMATION SOURCE (unrecogn ized section and content) DATE CREATED AUTHOR 01/16/2018 [facility] DATE CREATED AUTHOR AUTHOR'S ORGANIZ ATION 01/16/2018 [facility] DATE CREATED AUTHOR AUTHOR'S ORGANIZ ATION 01/19/2018 [facility] DATE CREATED AUTHOR AUTHOR'S ORGANIZ ATION 07/11/2019 [facility] emily Morley DATE CREATED AUTHOR AUTHOR'S ORGANIZ ATION 10/06/2021 [facility] DATE CREATED AUTHOR AUTHOR'S ORGANIZ ATION 06/06/2022 [facility] DATE CREATED AUTHOR AUTHOR'S ORGANIZ ATION 08/23/2022 [facility] DATE CREATED AUTHOR AUTHOR'S LUZ ELENA ATION 06/03/2025 [facility] Source Comments (unrecognize d section and content) [...] to total left knee replacement, initial encounter ([facility]) Procedures CONSULT TO PHYSICAL THERAPY PHYSICAL THERAPY EVALUATION HIGH COMPLEX 45 MINS Jesus Alberto Harris APRN.[facility] [address] [place] [address] [facility] [address] [address] Referral ID Status Reason Start Date Expiration Date Visits Requested Visits Authorized [id number] Authorized Auto-Generat ed Referral 2 07/23/2022 99 99 Reason Comments Patient Question Right Big toe Reason Comments Schedule Surgery Care Teams (unrecognized sec tion and content) Transplant Nurse Practitioner Relationship Specialty Start Date End Date Kris Bernardo [facility] [address] [facility] [place] [id number] PCP - General Family Medicine 07/27/20 Transplant Nurse Practitioner Relationship Specialty Start Date End Date Kris Bernardo MD [address] [place], [place] [id number] PCP - General Family Medicine 07/27/20 Transplant Nurse Practitioner Relationship Specialty Start Date End Date Kris Bernardo MD [address] [facility] [place], [place] [address] PCP - General Family Medicine 07/27/20 Transplant Nurse Practitioner Relationship Specialty Start Date End Date Kris Bernardo MD [address] [place] [address] PCP - General Family Medicine 07/27/20 Transplant Nurse Practitioner Relationship Specialty Start Date End Date Kris Bernardo MD [address] [facility], [place] [phone] PCP - General Family Medicine 07/27/20 Transplant Nurse Practitioner Relationship Specialty Start Date End Date Kris Bernardo MD [address] [facility], [place] [id number] PCP - General Family Medicine 07/27/20 Transplant Nurse Practitioner Relationship Specialty Start Date End Date Kris Bernardo MD [address] [facility], [place] [phone] PCP - General Family Medicine 07/27/20 Team Status: Active Member Role Status Dates [facility] Family Provider Active Dr. Hernandez Mosley [...] MD Primary Care Provider Active Samantha Grider [employer], [employer]C Attending Provider, Referring Pr ovider Active Team Status: Inactive Member Role Status Dates Dr. Hernandez Mosley MD Primary Care Provider, Attending Provider Active Transplant Nurse Practitioner Relationship Specialty Start Date End Date Hernandez Mosley Chi [address] [place] [address] PCP - General Gerontology 05/23/22 Team Status: Inactive Member Role Status Dates Dr. Hernandez Mosley MD Primary Care Provider Active Dr. Reyes Damian DO Attending Provider, Referring P rogregg Active Dr. Kris Roach MD Other Provider [...] Dr. Eder Lamas DO Emergency Provider Active Transplant Nurse Practitioner Relationship Specialty Start Date End Date Kris Bernardo MD [address] [place] [id number] PCP - General Family Medicine 07/27/20 05/22/22 [...] Care Provider Active Dr. Stanley Godwin , Attending Provider Active Dr. Sherif Benson MD Referring Provider Active Team Status: Inactive Member Role Status Dates Dr. Hernandez Mosley MD Primary Care Provider, Referring Provider Active Dr. Rian Fierro MD Attending Provider Active Team Status: Inactive Member Role Status Dates Dr. Hernandez Mosley MD Primary Care Provider, Referring Provider Active Dr. Stanley Godwin , Attending Provider Active Team Status: Inactive Member [...] Provider Active Star t: March 25, 2025 Team Status: Inactive Member Role/Relationship Status Dates Dr. Hernandez Mosley MD Primary Care Provider Active Start: March 25, 2025 End: March 29, 2025 Dr. Christian Echeverria MD Emergency Provider Active Start: March 25, 2025 End: March 29, 2025 Dr. Jennifer Dunne MD Admit Provider Active Star t: March 25, 2025 End: March 29, 2025 Dr. Jennifer Dunne MD Other Provider Active Star t: March 25, 2025 End: March 29, 2025 Dr. Jorge L Jin MD Attending Provider Active Start: March 25, 2025 End: March 29, 2025 Dr. Sherif Benson MD Other Provider Active Sta rt: March 25, 2025 End: March 29, 2025 Dr. Stanley Godwin DO Other Provider Active St art: March 25, 2025 End: March 29, 2025 HI Herrera Other Provider Active Start : March 25, 2025 End: March 29, 2025 HI Alan Other Provider Active St art: March 25, 2025 End: March 29, 2025 IRA Narayanan Other Provider Active Star t: March 25, 2025 End: March 29, 2025 Team Status: Active Member Role/Relationship Status Dates Dr. Hernandez Mosley MD Primary Care Provider Active Start: March 26, 2025 Dr. Christian Echeverria MD Emergency Provider Active Start: March 26, 2025 Dr. Jennifer Dunne MD Admit Provider Active Star t: March 26, 2025 Dr. Jennifer Dunne MD Other Provider Active Star t: March 26, 2025 Dr. Jorge L Jin MD Attending Provider Active Start: March 26, 2025 Dr. Jorge L Jin MD Other Provider Active Star t: March 26, 2025 Team Status: Active Member Role/Relationship Status Dates Dr. Hernandez Mosley MD Primary Care Provider Active Start: March 26, 2025 Dr. Christian Echeverria MD Emergency Provider Active Start: March 26, 2025 Dr. Jennifer Dunne MD Admit Provider Active Star t: March 26, 2025 Dr. Jennifer Dunne MD Other Provider Active Star t: March 26, 2025 Dr. Jorge L Jin MD Other Provider Active Star t: March 26, 2025 Dr. Sherif Benson MD Other Provider Active Sta rt: March 26, 2025 Dr. Stanley Godwin DO Other Provider Active St art: March 26, 2025 HI Herrera Other Provider Active Start : March 26, 2025 HI Alan Attending Provider Active Start: March 26, 2025 HI Alan Other Provider Active St art: March 26, 2025 IRA Narayanan Other Provider Active Star t: March 26, 2025 Team Status: Active Member Role/Relationship Status Dates Dr. Hernandez Mosley MD Primary Care Provider Active Start: March 27, 2025 Dr. Christian Echeverria MD Emergency Provider Active Start: March 27, 2025 Dr. Jennifer Dunne MD Admit Provider Active Star t: March 27, 2025 Dr. Jennifer Dunne MD Other Provider Active Star t: March 27, 2025 Dr. Jorge L Jin MD Attending Provider Active Start: March 27, 2025 Dr. Jorge L Jin MD Other Provider Active Star t: March 27, 2025 Dr. Sherif Benson MD Other Provider Active Sta rt: March 27, 2025 Dr. Stanley Godwin DO Other Provider Active St art: March 27, 2025 HI Herrera Other Provider Active Start : March 27, 2025 HI Alan Other Provider Active St art: March 27, 2025 IRA Narayanan Other Provider Active Star t: March 27, 2025 Team Status: Active Member Role/Relationship Status Dates Dr. Hernandez Mosley MD Primary Care Provider Active Start: March 28, 2025 Dr. Christian Echeverria MD Emergency Provider Active Start: March 28, 2025 Dr. Jennifer Dunne MD Admit Provider Active Star t: March 28, 2025 Dr. Jennifer Dunne MD Other Provider Active Star t: March 28, 2025 Dr. Jorge L Jin MD Attending Provider Active Start: March 28, 2025 Dr. Jorge L Jin MD Other Provider Active Star t: March 28, 2025 Dr. Sherif Benson MD Other Provider Active Sta rt: March 28, 2025 Dr. Stanley Godwin , Other Provider Active St art: March 28, 2025 HI Herrera Other Provider Active Start : March 28, 2025 HI Alan Other Provider Active St art: March 28, 2025 IRA Narayanan Other Provider Active Star t: March 28, 2025 Team Status: Active Member Role/Relationship Status Dates Dr. Hernandez Mosley MD Primary Care Provider Active Start: March 29, 2025 Dr. Christian Echeverria MD Emergency Provider Active Start: March 29, 2025 Dr. Jennifer Dunne MD Admit Provider Active Star t: March 29, 2025 Dr. Jennifer Dunne MD Other Provider Active Star t: March 29, 2025 Dr. Jorge L Jin MD Attending Provider Active Start: March 29, 2025 Dr. Jorge L Jin MD Other Provider Active Star t: March 29, 2025 Dr. Sherif Benson MD Other Provider Active Sta rt: March 29, 2025 Dr. Stanley Godwin DO Other Provider Active St art: March 29, 2025 HI Herrera Other Provider Active Start : March 29, 2025 HI Alan Other Provider Active St art: March 29, 2025 IRA Narayanan Other Provider Active Star t: March 29, 2025 Team Status: Active Member Role/Relationship Status Dates Dr. Hernandez Mosley MD Primary care physician Active Team Status: Inactive Member Role/Relationship Status Dates Dr. Hernandez Mosley MD Primary care physician Active Start: March 10, 2025 End: March 10, 2025 Dr. Montana Quiñonez MD Attending physician Active Start: March 10, 2025 End: March 10, 2025 Dr. Montana Quiñonez MD Referring Provider Active Start: March 10, 2025 End: March 10, 2025 Team Status: Inactive Member Role/Relationship Status Dates Dr. Hernandez Mosley MD Primary care physician Active Start: March 18, 2025 End: March 18, 2025 Dr. Hernandez Mosley MD Referring Provider Active Start: March 18, 2025 End: March 18, 2025 Dr. Stanley Godwin DO Attending physician Active Start: March 18, 2025 End: March 18, 2025 Team Status: Inactive Member Role/Relationship Status Dates Dr. Hernandez Mosley MD Primary care physician Active Start: March 18, 2025 End: March 18, 2025 Dr. Stanley Godwin DO Attending physician Active Start: March 18, 2025 End: March 18, 2025 Dr. Stanley Godwin DO Referring Provider Active Start: March 18, 2025 End: March 18, 2025 Team Status: Inactive Member Role/Relationship Status Dates Dr. Hernandez Mosley MD Primary care physician Active Start: March 25, 2025 End: March 29, 2025 Dr. Christian Echeverria MD Emergency Depart ment Physician Active Start: March 25, 2025 End: March 29, 2025 Dr. Jennifer Dunne MD Admitting physician Active Start: March 25, 2025 End: March 29, 2025 Dr. Jennifer Dunne MD Nurse Practitioner Active Start: March 25, 2025 End: March 29, 2025 Dr. Jorge L Jin MD Attending physician Active Start: March 25, 2025 End: March 29, 2025 Dr. Sherif Benson MD Nurse Practitioner Active Start: March 25, 2025 End: March 29, 2025 Dr. Stanley Godwin DO Nurse Practitioner Active Start: March 25, 2025 End: March 29, 2025 HI Herrera Nurse Practitioner Active S tart: March 25, 2025 End: March 29, 2025 HI Alan Nurse Practitioner Active Start: March 25, 2025 End: March 29, 2025 IRA Narayanan Nurse Practitioner Active Start: March 25, 2025 End: March 29, 2025 Team Status: Active Member Role/Relationship Status Dates Dr. Hernandez Mosley MD Primary care physician Active Start: March 26, 2025 Dr. Christian Echeverria MD Emergency Depart ment Physician Active Start: March 26, 2025 Dr. Jennifer Dunne MD Admitting physician Active Start: March 26, 2025 Dr. Jennifer Dunne MD Nurse Practitioner Active Start: March 26, 2025 Dr. Jorge L Jin MD Attending physician Active Start: March 26, 2025 Dr. Jorge L Jin MD Nurse Practitioner Active Start: March 26, 2025 Team Status: Active Member Role/Relationship Status Dates Dr. Hernandez Mosley MD Primary care physician Active Start: March 26, 2025 Dr. Christian Echeverria MD Emergency Depart ment Physician Active Start: March 26, 2025 Dr. Jennifer Dunne MD Admitting physician Active Start: March 26, 2025 Dr. Jennifer Dunne MD Nurse Practitioner Active Start: March 26, 2025 Dr. Jorge L Jin MD Referring Provider Active Start: March 26, 2025 Dr. Jorge L Jin MD Nurse Practitioner Active Start: March 26, 2025 Dr. Sherif Benson MD Nurse Practitioner Active Start: March 26, 2025 Dr. Stanley Godwin DO Nurse Practitioner Active Start: March 26, 2025 ALLY HerreraC Nurse Practitioner Active S tart: March 26, 2025 HI Alan Attending physician Active Start: March 26, 2025 ALLY AlanC Nurse Practitioner Active Start: March 26, 2025 IRA Narayanan Nurse Practitioner Active Start: March 26, 2025 Team Status: Active Member Role/Relationship Status Dates Dr. Hernandez Mosley MD Primary care physician Active Start: March 27, 2025 Dr. Christian Echeverria MD Emergency Depart ment Physician Active Start: March 27, 2025 Dr. Jennifer Dunne MD Admitting physician Active Start: March 27, 2025 Dr. Jennifer Dunne MD Nurse Practitioner Active Start: March 27, 2025 Dr. Jorge L Jin MD Attending physician Active Start: March 27, 2025 Dr. Jorge L Jin MD Nurse Practitioner Active Start: March 27, 2025 Dr. Sherif Benson MD Nurse Practitioner Active Start: March 27, 2025 Dr. Stanley Godwin DO Nurse Practitioner Active Start: March 27, 2025 Amber Delgado NP-C Nurse Practitioner Active S tart: March 27, 2025 ALLY AlanC Nurse Practitioner Active Start: March 27, 2025 IRA Narayanan Nurse Practitioner Active Start: March 27, 2025 Team Status: Active Member Role/Relationship Status Dates Dr. Hernandez Mosley MD Primary care physician Active Start: March 28, 2025 Dr. Christian Echeverria MD Emergency Depart [facility] Physician Active Start: March 28, 2025 Dr. Jennifer Dunne MD Admitting physician Active Start: March 28, 2025 Dr. Jennifer Dunne MD Nurse Practitioner Active Start: March 28, 2025 Dr. Jorge L Jin MD Attending physician Active Start: March 28, 2025 Dr. Jorge L Jin MD Nurse Practitioner Active Start: March 28, 2025 Dr. Sherif Benson MD Nurse Practitioner Active Start: March 28, 2025 Dr. Stanley Godwin DO Nurse Practitioner Active Start: March 28, 2025 ALLY HerreraC Nurse Practitioner Active S tart: March 28, 2025 ALLY AlanC Nurse Practitioner Active Start: March 28, 2025 IRA Narayanan Nurse Practitioner Active Start: March 28, 2025 Team Status: Active Member Role/Relationship Status Dates Dr. Hernandez Mosley MD Primary care physician Active Start: March 29, 2025 Dr. Christian Echeverria MD Emergency Depart [facility] Physician Active Start: March 29, 2025 Dr. Jennifer Dunne MD Admitting physician Active Start: March 29, 2025 Dr. Jennifer Dunne MD Nurse Practitioner Active Start: March 29, 2025 Dr. Jorge L Jin MD Attending physician Active Start: March 29, 2025 Dr. Jorge L Jin MD Nurse Practitioner Active Start: March 29, 2025 Dr. Sherif Benson MD Nurse Practitioner Active Start: March 29, 2025 Dr. Stanley Godwin DO Nurse Practitioner Active Start: March 29, 2025 ALLY HerreraC Nurse Practitioner Active S tart: March 29, 2025 HI Alan Nurse Practitioner Active Start: March 29, 2025 IRA Narayanan Nurse Practitioner Active Start: March 29, 2025 Team Status: Inactive Member Role/Relationship Status Dates Dr. Hernandez Mosley MD Primary care physician Active Start: April 17, 2025 End: April 17, 2025 Dr. Hernandez Mosley MD Referring Provider Active Start: April 17, 2025 End: April 17, 2025 HI Alan Attending physician Active Start: April 17, 2025 End: April 17, 2025 FOR RECORDS PERTAINING TO PATIENTS WHO [...] BE BASED ON THE PRIMARY CLINICAL RECORDS. [facility] [employer] provides no warranty or guarantee of the accuracy or completeness of information in this document.
[2025-06-05] MEDS: Lactated Ringers 1,000 ML 15 ML IV (06:23)
--- NOTE | 2025-06-05 06:41 | PRE.ANES_ITS ---
ASA Classification* ASA Classification ASA Classification: 2 Assessment & Plan Anesthesia* Anesthesia Assessment Anesthesia Assessment: Discussed sedation and/or anesthesia options, risks, benefits, and alternatives with patient/parents/legal guardian/POA. Questions invited. The patient/parents/legal guardian/POA seems to understand and agrees to proceed with anesthesia plan. Reviewed the physical assessment, medical history, allergy history and patient home medications list prior to surgery/procedure/anesthetic and documented any changes. Performed airway and anesthesia risk assessments. Anesthesia Type Anesthesia Type: MAC History Source History Obtained from:: Patient and Chart Anesthesia Focused Assessment* Temperature: 97.4 F Pulse Rate: 71 Blood Pressure: 140/92 Respiratory Rate: 16 Pulse Ox: 100 Oxygen Delivery Method: Room Air Airway Assessment Mouth opens: >3 cm Mallampati Score: I Teeth Condition: Caps/Crowns (Patient has several crowns. They are all tight.) and Missing (Patient has 3 missing teeth and a little right lower jaw.) Neck Range of motion (ROM): Limited ROM (Slight Decrease) Labs Anesthesia Preop lab: CBC WBC, (4.4-11.0) 6.8 K/mm3 03/29/25, 06:02 RBC, (4.2-5.4) 4.10 M/mm3 L 03/29/25, 06:02 Hgb, (12.0-15.0) 12.8 g/dL 03/29/25, 06:02 Hct, (37-47) 39.0 % 03/29/25, 06:02 Plt Count, (150-450) 289 K/mm3 03/29/25, 06:02 CHEMISTRY Potassium, (3.3-5.1) 4.3 mmol/L 03/29/25, 06:02 Sodium, (133-145) 139 mmol/L 03/29/25, 06:02 Magnesium, (1.5-2.2) 2.2 mg/dL 03/27/25, 10:35 Phosphorus, (2.7-4.5) 3.6 mg/dL 03/27/25, 10:35 BUN, (4-19) 12 mg/dL 03/29/25, 06:02 Creatinine, (0.70-1.20) 0.67 mg/dL L 03/29/25, 06:02 Glucose, (70-99) 94 mg/dL 03/29/25, 06:02 POC Glucose, (74-106) 119 mg/dL H 06/21/23, 09:50 TSH, (0.300-4.200) 2.390 uIU/mL 12/02/24, 13:51 COAG PT, (11.7-14.9) 12.6 SECONDS 06/19/23, 12:39 Pre-Assessment Diagnosis/Proposed Procedure Planned Operative Procedure(s): cscope Anesthesia History Anesthesia History - cue selector: Anesthesia History - cue selector Hx Hospitalization No 06/04/25 09:10 Any Problems With Anesthesia No 06/04/25 09:10 Cholinesterase deficiency No 06/04/25 09:10 You/Your Family Experience No 06/04/25 09:10 fever (hyperthermia) with Relationship Recent Exposure to Contagious No 06/05/25 06:16 Disease Does patient have nerve No 06/04/25 09:10 stimulator Patient instructed to have device shut off --Does patient have Pacemaker No 06/05/25 06:16 or ICD? When Was Last Pacemaker Check QUESTION #4 FULL TEXT: You/Your Family Experience fever (hyperthermia) with Anesthesia Last Oral Intake Last Oral intake: Last Oral Intake NPO since 01:00 06/05/25 06:16 Meds taken in AM with sips of water? Meds patient instructed to take am of surgery PONV PONV - cue selector: PONV - cue selector Female Yes 06/04/25 09:10 HX of Motion Sickness No 06/04/25 09:10 HX of N/V After Surgery No 06/04/25 09:10 Non-Smoker Yes 06/04/25 09:10 Duration of Surgery greater No 06/04/25 09:10 than 60 minutes Number of Risk Factors 2 06/04/25 09:10 PONV Score Moderate Risk 06/04/25 09:10 Height & Weight Height & Weight: Anesthesia: Height & Weight Height 5 ft 4 in 06/05/25 06:16 Weight: 73.028 kg 06/05/25 06:16 Body Mass Index (BMI) 27.6 06/05/25 06:16 Respiratory Assessment Respiratory Assessment - cue selector: Respiratory Tract Infection Hx - cue selector Hx Respiratory Tract Infection No 06/04/25 09:10 STOP Sleep Apnea STOP Sleep Apnea - cue selector: STOP Sleep Apnea - cue selector Hx Hypertension Yes: controlled with med 06/04/25 09:10 Hx Sleep Apnea No 06/04/25 09:10 CPAP Yes 03/10/25 08:50 BIPAP Do you snore loudly (louder No 06/04/25 09:10 than talking or can be heard Do you often feel tired/ No 06/04/25 09:10 fatigued/ sleepy during daytime? Has anyone observed you stop No 06/04/25 09:10 breathing during sleep? STOP Results Negative 06/04/25 09:10 QUESTION #5 FULL TEXT : Do you snore loudly (louder than talking or can be heard through closed doors)? 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 Specify any problems Hx of Preganancy in last 3 N/A 06/04/25 09:10 Months Nurse Filling Out Transfusion NBUCHER 06/04/25 09:10 & Questions: Date: 06/04/25 06/04/25 09:10 Time: 09:11 06/04/25 09:10 Patient unable to answer at this time (ie. confused, unrespo /Reproduction History /Reproductive History - cue selector: /Reproductive Hx- cue selector Hx Now Gestational Age (in weeks): EDC: Hx Hx Para Hx Section SAB No 06/04/25 09:10 Does the father of the baby or his family experience fever w Father of the baby Malignant Hypertension history comment Active Medications Active Medications: Current Medications Generic Name Dose Route Start Last Admin Trade Name Jelena PRN Reason Stop Dose Admin Lactated Ringer's 1,000 mls @ 15 mls/hr 06/05/25 06:15 06/05/25 06:23 IV 15 mls/hr .Q48H SARAH Administration PFSH Medical History Pain History of Crohn's disease Chronic pain GERD (gastroesophageal reflux disease) History of steroid therapy Wears glasses Post-menopausal Anxiety Alcohol use Hx of psoriatic arthritis Restless legs Back pain History of diverticulitis Hx of peptic ulcer Former smoker History of pain when walking Hypertension Osteoarthritis Home Medications Medication Instructions Recorded Last Taken Type venlafaxine 37.5 mg tablet 75 mg PO QHS depression 03/09/25 History pantoprazole 40 mg tablet,delayed 40 mg PO DAILY GERD 08/09/22 06/05/25 History release ramipril 10 mg capsule 10 mg PO BID HEART 08/09/22 03/09/25 History ropinirole 0.25 mg tablet 0.5 mg PO QHS RESTLESS LEGS 08/09/22 03/09/25 History furosemide 20 mg tablet 20 mg PO DAILY 01/12/2302/21 History acidophilus 25 million 2 tab PO BID #0 tabs 4 03/09/25 Rx cell-pectin, citrus 100 mg tablet amlodipine 5 mg tablet (Norvasc) 5 mg PO QHS 11/09/23 06/04/25 History dicyclomine 20 mg tablet 20 mg PO TID PRN abdominal p ain 10/04/24 Unknown History tizanidine 4 mg tablet 4 mg PO BID PRN PRN muscle s pasm 03/25/25 Unknown History ustekinumab 90 mg/mL subcutaneous 90 mg subcut Q8W #1 mL 03/26/25 Unknown Rx syringe (Stelara) sodium sul 1.479 gram-potas ch See Rx Instructions PO .COMPLEX 04/17/25 Unknown Rx 0.188 gram-magnes sul 0.225 gram #28 tabs tablet (Sutab) duloxetine 30 mg capsule,delayed 30 mg PO DAILY #30 ca ps 04/22/25 06/04/25 Rx release sennosides 8.6 mg-docusate sodium 1 tab PO BID PRN con stipation 06/04/25 Unknown History 50 mg tablet (Stimulant Laxative Plus) Allergy/AdvReac Type Severity Reaction Status Date / Time adhesive tape Allergy Severe blistering Verified 06/05/25 06:15 bee venom protein (honey bee) Allergy Swelling Verified 06/05/25 06:15 Family History Other Breast cancer CAD (coronary artery disease) Heart disease Hypertension Surgical History Hx of colonoscopy History of lumbar spinal fusion Status post left partial knee replacement History of total right knee replacement History of appendectomy History of hysterectomy History of section Social History household members: spouse Smoking Status: Former smoker alcohol intake: current alcohol intake frequency: holidays/special occasions only substance use type: does not use what type of physical activity do you participate in: walking frequency: 1-2 times per week Review of Systems (Anesthesia) ROS Narrative System reviewed and no additional complaints, except as documented.
--- NOTE | 2025-06-05 06:56 | PCM.HP.STD ---
HPI - General General Date of Admission: 06/05/25 Date of Service: 06/05/25 Chief Complaint: diverticulitis HPI Narrative VIJI TESFAYE, is a 65 F who presents [ Chief Complaint: hospital follow-up Details: CT 03/25/2025 1. Acute uncomplicated sigmoid diverticulitis. 2. Diffuse hepatic steatosis. GI CONSULT 03/26/2025 65y/o female with reported history of Crohn's disease managed with Ustekinumab since 02/2024 (recent level 4, no antibodies) who has a history of recurrent diverticulitis with 4 episodes in a 12 month period prior to biologic initiation. She now presents with acute onset severe LLQ pain beginning 03/22/2025, worsening despite self initiation of cipro and metronidazole. With CT confirming mild sigmoid diverticulitis. She describes the pain as similar in character to prior diverticulitis episodes, but more severe with associated bloating, and abdominal distention. No associated nausea, vomiting, or change in bowel habits. Denies dysuria; UA negative. Vitals: Low-grade temp 99.9. She was admitted due to uncontrolled pain despite multiple doses of IV analgesia in the ED. Initiated on IV piperacillin-tazobactam. Pain remains only partially responsive to IV morphine and oral oxycodone. She is tolerating oral intake. Last prior diverticulitis episode July 2024, treated with Augmentin. Recommend continued IV Zosyn for acute diverticulitis. She has shown improvement in leukocytosis (17.4 -> 12.6). Monitor vitals, abdominal pain, WBC daily. Recommend soft diet as tolerated. Avoid NSAIDS given history of Crohn's. Consider surgical consultation for worsening pain, signs of peritonitis, or failure to improve with IV antibiotics. DISCHARGE 03/29/2025 Patient is a 65-year-old lady who was admitted with abdominal pain CT demonstrated acute uncomplicated sigmoid diverticulitis admitted to regular nursing floor for further management 1. Acute uncomplicated diverticulitis - CT of the abdomen read as acute uncomplicated sigmoid diverticulitis admitted to regular nursing floor started on Zosyn in addition to pain management IV fluids. Started on clear liquid diet advance as tolerated 03/27/2025; patient seen patient abdominal pain persist to use to rule out bowel obstruction – 03/28/2025;Abdominal x-rays obtained the day prior demonstrated moderate amount of fecal material in the colon patient was placed on suppository as well as MiraLAX with good effect. Still complains of abdominal cramps and appears bloated.. Patient WBC count trending – 03/29/2025 patient to be discharged home HISTORY OF CROHN'S She was last seen in the GI office 03/18/[address] Godwin - was feeling well, denied any GI symptoms of concern, intermittent diarrhea but felt this was diet related 09/21/2023 stool culture negative 09/24/2023 Chromogranin A WNL IgG subglasses WNL ANCA negative Celiac serologies negative ALCA WNL gASGA 54 (0-50) AMCA WNL ACCA WNL Gastrin WNL COLON 09/25/2023 focal mucosal ulceration at the splenic flexure - minimal non-specific chronic inflammation duodenum - no biopsies of TI or left colon performed Multiple small and large-mouthed diverticula were found in the recto-sigmoid colon, sigmoid colon, descending colon and splenic flexure. Localized severe inflammation characterized by erythema, friability and granularity was found in the sigmoid colon, in the descending colon and at the splenic flexure. - she was started on methotrexate 12.5mg and folic acid - methotrexate did not help her crohn's Capsule ENDO 11/13/2023 benign appearing duodenal stricture, areas of enteritis and ulceration seen throughout the SB. Started on Mesalamine and Budesonide. EGD 11/14/2023 - no pathological diagnosis of duodenal biopsy benign-appearing, intrinsic moderate stenosis was found in the first portion of the duodenum and was traversed after dilation. A TTS dilator was passed through the scope. Dilation with a 15 mm pyloric balloon dilator was performed. The dilation site was examined and showed moderate improvement in luminal narrowing. 03/08/2024 Stelara loading dose 03/18/2025 CRP 4.67 this is down from 6.21 on 10/28/2024 CRP was 12.9 on 09/24/2023 and decreased to 3.04 05/03/2024 Ustekinumab 03/18/2024 Level 4, no Ab - (this is not a true trough - last dosed 02/02/2025 - was due 03/30/2025) 10/28/2024 Level 4.2, no Ab No fecal calprotectin or MRE on record. There is no histological evidence of Crohn's on record. - reports at discharge her pain level was about 5/10 - still not back to 100% - c/o psoriatic arthritis is flaring - stelara was due 03/30/2025, she was advised to hold for 4 weeks and plans to take 04/27/2025 - denies any fevers - abd pain today 2/10, pain is not constant - has some lower abdominal tenderness - reports stools are small, this is not her normal - feels she has to continue taking stool softener - she is eating a normal diet, avoiding red meat and high fiber foods - denies any bleeding - denies any skin rashes/lesions STELARA: - last dosed 02/02/2025 - was due 03/30/2025 [facility] Medical History Pain History of Crohn's disease Chronic pain GERD (gastroesophageal reflux disease) History of steroid therapy Wears glasses Post-menopausal Anxiety Alcohol use Hx of psoriatic arthritis Restless legs Back pain History of diverticulitis Hx of peptic ulcer Former smoker History of pain when walking Hypertension Osteoarthritis Home Medications Medication Instructions Recorded Last Taken Type venlafaxine 37.5 mg tablet 75 mg PO QHS depression 03/20/16 03/09/25 History pantoprazole 40 mg tablet,delayed 40 mg PO DAILY GERD 08/09/22 06/05/25 History release ramipril 10 mg capsule 10 mg PO BID HEART 08/09/22 03/09/25 History ropinirole 0.25 mg tablet 0.5 mg PO QHS RESTLESS LEGS 08/09/22 03/09/25 History furosemide 20 mg tablet 20 mg PO DAILY 01/12/23 03/09/25 History acidophilus 25 million 2 tab PO BID #0 tabs 09/26/23 03/09/25 Rx cell-pectin, citrus 100 mg tablet amlodipine 5 mg tablet (Norvasc) 5 mg PO QHS 11/09/23 06/04/25 History dicyclomine 20 mg tablet 20 mg PO TID PRN abdominal pain 10/04/24 Unknown History tizanidine 4 mg tablet 4 mg PO BID PRN PRN muscle spasm 03/25/25 Unknown History ustekinumab 90 mg/mL subcutaneous 90 mg subcut Q8W #1 mL 03/26/25 Unknown Rx syringe (Stelara) sodium sul 1.479 gram-potas ch See Rx Instructions PO .COMPLEX 04/17/25 Unknown Rx 0.188 gram-magnes sul 0.225 gram #28 tabs tablet (Sutab) duloxetine 30 mg capsule,delayed 30 mg PO DAILY #30 caps 04/22/25 06/04/25 Rx release sennosides 8.6 mg-docusate sodium 1 tab PO BID PRN constipation 06/04/25 Unknown History 50 mg tablet (Stimulant Laxative Plus) Allergy/AdvReac Type Severity Reaction Status Date / Time adhesive tape Allergy Severe blistering Verified 06/05/25 06:15 bee venom protein (honey bee) Allergy Swelling Verified 06/05/25 06:15 Family History Other Breast cancer CAD (coronary artery disease) Heart disease Hypertension Surgical History Hx of colonoscopy History of lumbar spinal fusion Status post left partial knee replacement History of total right knee replacement History of appendectomy History of hysterectomy History of section Social History household members: spouse Smoking Status: Former smoker alcohol intake: current alcohol intake frequency: holidays/special occasions only substance use type: does not use what type of physical activity do you participate in: walking frequency: 1-2 times per week ROS Constitutional Constitutional: Denies fatigue, fever(s), poor appetite, weight gain or weight loss Gastrointestinal Gastrointestinal: Denies belching, bloating, change in bowel habits, change in stool character, chewing difficulty, coffee ground emesis, constipation, cramping, diarrhea, dyspepsia, dysphagia, early satiety, excessive flatus, fecal incontinence, heartburn, hematemesis, hematochezia, hemorrhoids, loose stools, melena, nausea, odynophagia, rectal bleeding, tenesmus, vomiting or weight changes Vital Signs Vital Signs Vital Signs: 06/05/25 06:16 06/05/25 06:16 06/05/25 06:50 Temperature 97.4 F L 97.4 F L Temperature Source Temporal Pulse Rate 71 71 Respiratory Rate 16 16 Respiratory Pattern Normal Blood Pressure 140/92 H 140/92 H Blood Pressure Mean 108 Blood Pressure Source Monitor Blood Pressure Position Semi-Fowlers Blood Pressure Location Right Arm Pulse Ox 100 100 Oxygen Delivery Method Room Air Room Air Weight Weight: 161 lb Body Mass Index (BMI) 27.6 Physical Exam Const alert, oriented x3, no apparent distress and healthy appearing General Appearance: cooperative GI normal to inspection, nondistended, normoactive bowel sounds, soft to palpation, non-tender and non-distended Percussion: normal to percussion Rectal Exam: deferred Assessment & Plan Assessment/Plan (1) Diverticulitis: PLAN: Assessment and Plan Assessment and Plan (1) Acute diverticulitis: Status: Acute Medications: New sod sulf-pot chloride-mag sulf 1.479-0.188- 0.225 gram (Sutab) Take orally take as directed for split dose bowel prep. Do not follow instructions on box. 28 tabs 0RF Plan 65-year-old female presents for follow-up post admission for acute uncomplicated sigmoid diverticulitis. She was admitted for pain management and started on IV antibiotics. She was discharged on 03/29/2025 and completed a 10-day course of Augmentin. Labs reveal resolving leukocytosis. She denies any fevers and reports remarkable improvement in abdominal pain. She is continuing to experience mild constipation and taking senna daily. She complains of psoriatic arthritis flare with holding Stelara. Her last doses of Stelara was 02/02/2025 and she was due for Stelara on 03/30/2025. I have reviewed with Dr. Godwin and she will resume Stelara now. We will plan for colonoscopy in 8 weeks. Patient Instructions: Colonoscopy 8 weeks - SuTab If she has recurrent pain, I recommend CT to confirm diverticulitis and surgical referral if confirmed I reviewed with Dr. Godwin and inna to resume Stelara from a GI standpoint; c/o psoriatic arthritis flare Continue Senna, increase to twice daily if needed for constipation ] D/C Safety Score for UGIB Assessment Rosana-Blatchford Bleeding Score (GBS): Stratifies upper GI bleeding patients who are "low-risk" and candidates for outpatient management. Hemoglobin, BUN, Recent Vital Signs: Pulse Rate 71 Blood Pressure 140/92 Score Interpretation: Score of 0: A GBS of 0 is a “Low Risk” GI bleed, and is highly sensitive (99.6% in a 2007 retrospective study) for predicting which patients did not require any “medical intervention”: blood transfusion, endoscopy, or surgery. This was confirmed in a 2009 Lancet study where patients with a score of 0 were actually discharged and had no GI bleeding mortality at 6 month followup Score above 0: A GBS greater than zero suggests a “High Risk” GI bleed that is likely to require “medical intervention”: transfusion, endoscopy, or surgery. A higher GBS also correlated with a higher likelihood of needing intervention Scores >/= 6 are associated with >50% risk of needing intervention D/C Safety Score for LGIB Assessment Assessment Tool: Readmission and adverse event risk in patients with acute lower GI bleeding. Hemoglobin and Recent Vital Signs: Pulse Rate 71 06/05/25 06:42 Blood Pressure 140/92 06/05/25 06:42 Score Interpretation: Probability Percentage of safe discharge (absence of rebleeding, blood transfusion, therapeutic intervention, 28 day readmission, or ) Score of 8 or below: Consider discharge, with appropriate precautions. Score of 9 or above: Discharge NOT recommended. Consider admission with further workup and resuscitation as necessary.
--- NOTE | 2025-06-05 07:00 | COLBX_PTH ---
PATIENT: VIJI TESFAYE LOC: EN U#:[id number] AGE/SX: 65/F ROOM: RE06/05/[address]: Dr. Stanley Godwin DO : 1960 BED: DIS: 06/05/2025 SPEC #: [id number] RECD: 06/05/25 09:38 STATUS: RUSTY REQ #: [id number] RADHA: 06/05/25 07:[address]: Stanley Godwin DEPT: SURGICAL PATHOLOGY RECD BY: George Montes ENTERED: 06/05/25 10:21 SP TYPE: COLON BX OTHR DR: Dr. Hernandez Mosley MD Tissues: A - Cecum, NOS Procedures: Surgery Specimen Level IV HEADER OPERATION: Colonoscopy with biopsy PRE-OP DIAGNOSIS: Acute diverticulitis TISSUE SUBMITTED: A- Cecal polyp biopsy MICROSCOPIC DIAGNOSIS A. Large intestine, cecal polyp, biopsy: - Tubular adenoma MICROSCOPIC DESCRIPTION Slides are reviewed. GROSS DESCRIPTION A. Received in fixative is one container labeled with the patient's name and designated "Cecal polyp biopsy." The specimen consists of one irregular fragment of grossman tissue that measures 0.4 cm. The specimen is totally submitted in one cassette. Note: Specimen was received in an open and leaking container; contents of the specimen container bag were filtered and grossly devoid of additional tissue fragments. (FL) [place] 06/05/2025 CPT:41114
--- NOTE | 2025-06-05 07:51 | OP.PROVAT_ITS ---
06/05/2025 Hernandez Mosley MD [address] [place] [address] Re : Colonoscopy procedure for Judy Reagan Dear Dr. Mosley This procedure was performed on May. My impressions and recommendations are as follows: Impressions : - Diverticulosis in the recto-sigmoid colon, in the sigmoid colon and in the descending colon. - Stricture in the recto-sigmoid colon and in the sigmoid colon. - One 5 mm polyp in the cecum, removed with a jumbo cold forceps. Resected and retrieved. Recommendations : - Repeat colonoscopy in 5 years for surveillance. - Continue present medications. My findings are described in the full procedure note, which is enclosed. If I can be of further assistance, please feel free to contact me at . Sincerely, Stanley Godwin, 06/05/2025 7:50:37 AM This report has been signed electronically.
--- NOTE | 2025-06-05 07:51 | OP.COLON_ITS ---
Patient Name: Judy Reagan Procedure Date: 06/05/2025 7:13 AM Date of : 1960 Age: 65 Procedure: Colonoscopy Indications: Abnormal CT of the GI tract, Follow-up of diverticulitis Providers: Stanley Godwin DO Referring MD: Hernandez Mosley MD Medicines: Monitored Anesthesia Care Patient Profile: This is a 65 year old female. Refer to note in patient chart for documentation of history and physical. Last Colonoscopy: 3 years ago. Complications: No immediate complications. Procedure: Pre-Anesthesia Assessment: - Prior to the procedure, a History and Physical was performed, and patient medications and allergies were reviewed. The patient is competent. The risks and benefits of the procedure and the sedation options and risks were discussed with the patient. All questions were answered and informed consent was obtained. Patient identification and proposed procedure were verified by the physician in the pre-procedure area. Mental Status Examination: alert and oriented. Airway Examination: normal oropharyngeal airway and neck mobility. Respiratory Examination: clear to auscultation. CV Examination: normal. Prophylactic Antibiotics: The patient does not require prophylactic antibiotics. Prior Anticoagulants: The patient has taken no anticoagulant or antiplatelet agents except for NSAID medication. ASA Grade Assessment: II - A patient with mild systemic disease. After reviewing the risks and benefits, the patient was deemed in satisfactory condition to undergo the procedure. The anesthesia plan was to use monitored anesthesia care (MAC). Immediately prior to administration of medications, the patient was re-assessed for adequacy to receive sedatives. The heart rate, respiratory rate, oxygen saturations, blood pressure, adequacy of pulmonary ventilation, and response to care were monitored throughout the procedure. The physical status of the patient was re-assessed after the procedure. After I obtained informed consent, the scope was passed under direct vision. Throughout the procedure, the patient's blood pressure, pulse, and oxygen saturations were monitored continuously. The Colonoscope was introduced through the anus and advanced to the cecum, identified by appendiceal orifice and ileocecal valve. The colonoscopy was performed without difficulty. The patient tolerated the procedure well. The quality of the bowel preparation was adequate. The ileocecal valve, appendiceal orifice, and rectum were photographed. Scope In: 7:25:38 AM Scope Withdrawal Time 0 hours 15 minutes 0 seconds Scope Out: 7:45:03 AM Total Procedure Duration Time 0 hours 19 minutes 25 seconds Findings: The perianal and digital rectal examinations were normal. Multiple small and large-mouthed diverticula were found in the recto-sigmoid colon, sigmoid colon and descending colon. A benign-appearing, intrinsic moderate stenosis measuring 5 cm (in length) x 6 mm (inner diameter) was found in the recto-sigmoid colon and in the sigmoid colon and was traversed. A 5 mm polyp was found in the cecum. The polyp was sessile. The polyp was removed with a jumbo cold forceps. Resection and retrieval were complete. Verification of patient identification for the specimen was done. Estimated blood loss was minimal. Impression: - Diverticulosis in the recto-sigmoid colon, in the sigmoid colon and in the descending colon. - Stricture in the recto-sigmoid colon and in the sigmoid colon. - One 5 mm polyp in the cecum, removed with a jumbo cold forceps. Resected and retrieved. Recommendation: - Repeat colonoscopy in 5 years for surveillance. - Continue present medications. Procedure Code(s): --- Professional --- 89882, Colonoscopy, flexible; with biopsy, single or multiple CPT copyright 2021 [employer]. All rights reserved. The codes documented in this report are preliminary and upon silk weaver review may be revised to meet current compliance requirements. Stanley Godwin DO 06/05/2025 7:50:37 AM This report has been signed electronically. Number of Addenda: 0 Note Initiated On: 06/05/2025 7:13 AM
--- NOTE | 2025-06-05 07:53 | PCM.POST.ANE ---
Anesthesia: Postop Eval I Current Vital Signs Temperature: 97.8 F Pulse Rate: 62 Blood Pressure: 102/66 Respiratory Rate: 16 Pulse Ox: 100 Oxygen Delivery Method: Room Air Assessment Airway patent: Yes Spontaneous unlabored respirations: Yes Mental status: Asleep nausea: No Vomiting: No Anesthesia Complication: No Fluid Hydration Crystalloid volume administer (ml): 800 Total IV fluid infused: 800 Progress Note Anesthesia document: Postop Eval 1 completed: Yes
--- NOTE | 2025-06-05 13:01 | PCM.POSTANE2 ---
Anesthesia Postop Eval I Sum Postop Eval Completion status Anesthesia document: Postop Eval 1 completed: Yes Anesthesia Postop Eval I Summary Anesthesia Postop Eval I Summary: Anesthesia Postop Eval I: Assessment Summary Airway patent Yes 06/05/25 07:54 [email or web address] Spontaneous unlabored Yes 06/05/25 07:54 [email or web address] respirations Mental status Asleep 06/05/25 07:54 [email or web address] nausea No 06/05/25 07:54 [email or web address] Vomiting No 06/05/25 07:54 [email or web address] Anesthesia Postop Eval I: Fluid Summary Crystalloid volume administer 800 06/05/25 07:54 [email or web address] (ml) Colloids volume administered ( ml) Blood Product volume administered (ml) Total IV fluid infused 800 06/05/25 07:54 [email or web address] Anesthesia Postop Eval I: Summary Notes Anesthesia Complication No 06/05/25 07:54 [email or web address] Anesthesia Complication Comment: Post-operative progress note Anesthesia: Postop Eval II Evaluation Mental status: Awake Pain Level: 0 nausea: No Vomiting: No Complications Anesthesia Complication: No
== END 2025-06-05 08:44 | disposition home or self-care (01) ==
LOC: EN 05:57 → AC 05:58
PROVIDERS: PCP Family Medicine Geriatric Medicine; Referring Provider Family Medicine Geriatric Medicine; Visit Provider Internal Medicine Gastroenterology
DX: D12.0 Benign neoplasm of cecum (principal); K50.90 Crohn's disease, unspecified, without complications; K76.0 Fatty (change of) liver, not elsewhere classified; K57.92 Diverticulitis of intestine, part unspecified, without perforation or abscess without bleeding; I10 Essential (primary) hypertension; K57.30 Diverticulosis of large intestine without perforation or abscess without bleeding; Z87.891 Personal history of nicotine dependence; K21.9 Gastro-esophageal reflux disease without esophagitis; Z79.899 Other long term (current) drug therapy
CPT/HCPCS: 45380; 88305; J2405

== ENCOUNTER → 2025-07-08 | Outpatient (CLI) | payer MEDICARE, SELFPAY ==
[2025-07-08 10:54] LABS: AST(SGOT) 21 U/L (<=31); Alanine Aminotransfer ALT/SGPT 21 U/L (<=34); Albumin, Serum 4.5 g/dL (3.4-4.8); Alkaline Phosphatase 83 U/L (35-104); Anion Gap 11 (5-15); BUN 13 mg/dL (4-19); BUN/Creat Ratio 18.2 RATIO (10-20); CRP 4.85 mg/L (0.0-3.0); Calcium,Total 9.4 mg/dL (7.6-11.0); Carbon Dioxide 27.1 mmol/L (21.0-32.0); Chloride 101 mmol/L (98-108); Globulin 2.9 g/dL (2.2-4.2); Glucose 112 mg/dL (70-99); Potassium 4.0 mmol/L (3.3-5.1)
[2025-07-08 11:39] LABS: Hematocrit 41.9 % (37-47); Hemoglobin 13.8 g/dL (12.0-15.0); Immature Granulocytes Count 0.030 X10^3/uL (0.0-0.0); Mean Corp Hgb Conc 32.9 g/dL (32-36); Mean Corpuscular Volume 92.9 fL (81-99); Mean Platelet Vol. 10.4 fl (6.2-12.0); NRBC Flagged by Analyzer 0 % (0-5); Platelet Count 383 K/mm3 (150-450); RBC Distribution Width CV 13.2 % (11.6-14.6); RBC Distribution Width SD 44.6 fl (35.1-43.9); Red Blood Count 4.51 M/mm3 (4.2-5.4); White Blood Count 6.5 K/mm3 (4.4-11.0)
== END | disposition home or self-care (01) ==
LOC: LAB 09:13
PROVIDERS: PCP Family Medicine Geriatric Medicine; Referring Provider Internal Medicine Gastroenterology; Visit Provider Internal Medicine Gastroenterology
DX: D64.9 Anemia, unspecified (principal); K57.92 Diverticulitis of intestine, part unspecified, without perforation or abscess without bleeding
CPT/HCPCS: 36415; 80053; 85025; 85652; 86140